=== PATIENT | female | born 1945 | race Caucasian/White ===

== ENCOUNTER 2021-12-11 13:45 | Outpatient (RCR) | payer MEDICARE, BC, SELFPAY | END 2022-03-12 10:38 | disposition home or self-care (01) | PROVIDERS: Visit Provider Orthopaedic Surgery | DX: M17.0 Bilateral primary osteoarthritis of knee (principal); Z51.89 Encounter for other specified aftercare | CPT/HCPCS: 97110; 97162 ==

== ENCOUNTER 2024-02-01 07:22 | Emergency (ER) | payer MEDICARE, BC, SELFPAY ==
[2024-02-01] VITALS (11 sets, daily range): BP systolic 146–163; BP diastolic 77–96; PULSE 57–73; RESP 16–20; TEMP 36.3; O2SAT 87–98; BMI 41.2
--- NOTE | 2024-02-01 07:43 | ED_ITS ---
HPI - General Adult General Time Seen by Provider: 07:43 Date Seen: 02/01/24 Chief complaint: Nausea/Vomiting Stated complaint: Vomiting since Friday/Friday Time Seen by Provider: 02/01/24 07:23 Source: patient, RN notes reviewed and old records reviewed Mode of arrival: wheelchair Limitations: no limitations History of Present Illness HPI narrative: This 79-year-old female comes into the ER of her own accord with complaint of dry heaves and nausea all night long. Her symptoms actually started on Friday night, today is Friday morning. She ate some [employer] fish Friday night about 5:00 p.m.. Her symptoms started abruptly around 11:00 p.m. Friday night. She started with nausea and vomiting. She did have some nonbloody diarrhea. That has resolved as she did take an Imodium AD on . She has continued to have some generalized abdominal discomfort but no fevers or chills. She was up dry heaving all night long, does feel nauseated now. She states she is not been able to keep anything in overnight. She does report a history of bladder cancer, was at the urologist last week and was found to have an incidental asymptomatic kidney stone, visit done for hematuria which was asymptomatic. She states her bladder cancer was removed and there is no evidence of recurrence. She has polymyalgia rheumatica and arthritis with that, take some monthly injection. She notes some liver inflammation, further details not known at this time. Did review her Care everywhere, she sees [facility]. She has seen Dr. Ventura for pulmonology. Recent PFTs suggested restrictive pattern but patient is noted to have a history of mild intermittent or persistent asthma. Patient is also noted to have obstructive sleep apnea and obesity restriction. With problem list reviewed as provided by patient below. Related Data Home Medications ?Medication ?Instructions ?Recorded ?Confirmed betaxolol 0.5 % eye drops 1 drp ophthalmic (eye-right) BID 02/01/24 02/01/24 carvedilol 12.5 mg tablet 12.5 mg PO BID 02/01/24 02/01/24 cyclobenzaprine 5 mg tablet 5 mg PO 3XD PRN muscle spasm 02/01/24 02/01/24 diazepam 2 mg tablet 2 mg PO 02/01/24 diclofenac sodium 1 % topical gel 2 g topical 3XD PRN 02/01/24 02/01/24 dorzolamide 2 % eye drops 1 drp ophthalmic (eye-right) BID 02/01/24 02/01/24 fluticasone furoate 100 1 inh inhalation DAILY 02/01/24 02/01/24 mcg/actuation blister powder for inhalation (Arnuity Ellipta) furosemide 20 mg tablet 20 mg PO DAILY 02/01/24 02/01/24 hydrocodone 5 mg-acetaminophen 325 1 tab Q6H PRN pain 02/01/24 mg tablet imatinib 400 mg tablet (Gleevec) 400 mg PO DAILY 02/01/24 02/01/24 irbesartan 75 mg tablet 75 mg PO DAILY 02/01/24 02/01/24 mometasone 220 mcg/actuation(60 inhalation QPM 02/01/24 doses) breath activated powder inhaler (Asmanex Twisthaler) omeprazole 40 mg capsule,delayed 40 mg PO DAILY PRN heartburn 02/01/24 02/01/24 release potassium chloride 10 mEq 10 meq PO DAILY 02/01/24 02/01/24 tablet,extended release(part/cryst) (Klor-Con M) prednisone 1 mg tablet 2 mg PO DAILY 02/01/24 02/01/24 sertraline 25 mg tablet 25 mg PO DAILY 02/01/24 02/01/24 sertraline 50 mg tablet 75 mg PO DAILY 02/01/24 02/01/24 Allergies Allergy/AdvReac Type Severity Reaction Status Date / Time cortisone AdvReac Unknown Verified 02/01/24 07:33 Sulfa Antibiotics Allergy Unknown Uncoded 09/21/21 09:29 Review of Systems Status of ROS: Reports: 6 or more systems reviewed and unremarkable except as noted in History and below [facility] Medical History Muscular dystrophy ?G71.00 - Muscular dystrophy, unspecified (ICD-10) Bladder cancer ?C67.9 - Malignant neoplasm of bladder, unspecified (ICD-10) CML (chronic myelocytic leukemia) ?C92.10 - Chronic myeloid leukemia, BCR/ABL-positive, not having achieved remission (ICD-10) Hypertension ?I10 - Essential (primary) hypertension (ICD-10) Social History Smoking Status: Never smoker How often do you have a drink containing alcohol: never AUDIT-C Alcohol total score: 0 Non-prescribed substance use: denies use service: No Exam Const: Vital Signs, click to edit/add: Vital Signs - 24 hr 02/01/24 07:27 02/01/24 09:05 02/01/24 09:07 Temperature 97.3 F L Pulse Rate Pulse Rate [Pulse Oximeter] 71 73 Respiratory Rate 16 Blood Pressure Blood Pressure [Ri ght Upper Arm] 163/96 H Pulse Oximetry 92 87 L 87 L Oxygen Delivery Me thod Room Air Room Air Oxygen Flow Rate 02/01/24 09:08 02/01/24 09:17 02/01/24 09:30 Temperature Pulse Rate 70 72 Pulse Rate [Pulse Oximeter] Respiratory Rate Blood Pressure 147/96 H Blood Pressure [Ri ght Upper Arm] Pulse Oximetry 87 L 88 98 Oxygen Delivery Me thod Nasal Cannula Nasal Cannula Oxygen Flow Rate 1 1 02/01/24 09:49 02/01/24 10:00 02/01/24 10:02 Temperature Pulse Rate 67 Pulse Rate [Pulse Oximeter] Respiratory Rate 20 18 20 Blood Pressure 146/77 H Blood Pressure [Ri ght Upper Arm] Pulse Oximetry 96 97 Oxygen Delivery Me thod Nasal Cannula Nasal Cannula Oxygen Flow Rate 1 1 02/01/24 10:30 02/01/24 11:02 Temperature Pulse Rate 57 L 70 Pulse Rate [Pulse Oximeter] Respiratory Rate Blood Pressure 149/86 H Blood Pressure [Ri ght Upper Arm] Pulse Oximetry 97 98 Oxygen Delivery Me thod Nasal Cannula Nasal Cannula Oxygen Flow Rate 1 1 This 79-year-old female is alert, interactive, does seem to be hard of hearing at times. Pupils are equal round, conjugate gaze. There is a little vascular injection in the right sclera, both looked to have some possible mild icterus. Symmetrical facial function, speech is normal. Lips are dry, some mild cracking, oropharynx with dry mucosa but no exudates or other abnormality noted. She is able to speak in complete sentences. Lungs are clear, good air entry, no wheezing or crackles, no tachypnea. CV regular rate and rhythm, no murmur. Abdomen is obese but soft, some mild upper generalized abdominal pain without rebound or guarding. Bowel sounds are present. Do not feel any masses or organomegaly necessarily but body habitus can confound this examination. She has no lower extremity edema, note no skin rash. Documenting provider has reviewed patient's vital signs: yes Course Course ED Course: This is a patient with some upper abdominal pain, maybe icterus on her examination with reported history of liver enzyme elevation or liver inflammation. She did report a gastroenteritis or food poisoning type symptoms that had abrupt onset earlier this week. This could be viral or food poisoning that has not abated. Need to consider dehydration with this patient's symptoms. Will give her 500 mL normal saline due to the saline shortage to start with, 4 mg IV Zofran. We will get full complement of labs. Given her symptoms in her underlying complexity, do feel compelled to do CT of her abdomen pelvis, will do this with IV contrast to rule out any concerning intra-abdominal pathology. Reevaluation(s) Time of Reevaluation #1: 09:11 Reevaluation #1: This 79-year-old female is now at 82-83%. She is sitting in the recliner. She came back from her CT scan of her abdomen and was at 80% room air, was not feeling short of breath. She does note that she does get baseline dyspnea on exertion and feels short of breath with activity. We observed for short period wondering if she would rebound, this is a patient known to have some underlying lung disease, oxygenation actually worsened as we watched her coming back from CT. Will get a portable chest x-ray, respiratory therapy is down to see her, will supplement some oxygen for the time being. On further evaluation, her probe was not likely on with the 82-83%. Respiratory therapy did get that adjusted, had patient cough and O2 sats are back up in the 90s. Will still look at a portable chest x-ray on her to ensure no visible changes from any aspiration. Respiratory therapy has worked with her, with coughing she will clear up into the low 90s but with rest she dips back down to 87%. Respiratory therapy is placing a L nasal cannula oxygen. Will proceed with getting a portable chest x- ray. Patient is already had CT imaging of her abdomen pelvis and was not hypoxic before this, otherwise, would have considered adding chest imaging on that. Consultations Consultation #1: Spoke with our hospitalist regarding this patient, do have a page out to our general surgeon. I would like a 2nd opinion about the feasibility of this patient potentially staying here. Do need to talk to surgery about her jaundice with the acute cholecystitis. He agrees, will come down to see this patient. Did cancel the consultation with Dr. Jung. I have subsequently spoken with our surgeon and the plan will be for transfer for ERCP. Will initiate Zosyn for this patient. Time: 09:20 Consultation #2: Spoke with our general surgeon Dr. Hermosillo. Upon review of the case, she believes that this patient should transfer for ERCP. Did subsequently discuss this with the patient, let her know that her gallbladder is inflamed and infected, with the jaundice there would be evidence of potential obstruction that requires ERCP. We cannot do this here. She would prefer [facility], we will check with the [facility] system. I do know [facility] has beds at this time. She would also prefer [facility]. She notes that she has an appointment coming up with ENT for cochlear implants. Time: 09:23 Consultation #3: Have spoken with the hospitalist at [facility] Dr. Cain, she accepts this patient. Time: 09:53 Vital Signs Vital signs: Initial Vital Signs Temperature 97.3 F L 02/01/24 07:27 Temperature Source Temporal Artery Scan 02/01/24 07:27 Pulse Rate 71 02/01/24 07:27 Respiratory Rate 16 02/01/24 07:27 Blood Pressure 163/96 H 02/01/24 07:27 Blood Pressure Mean 118 H 02/01/24 07:27 Blood Pressure Position Sitting 02/01/24 07:27 Pulse Oximetry 92 02/01/24 07:27 Oxygen Delivery Method Room Air 02/01/24 07:27 Vital Signs Temperature 97.3 F L 02/01/24 07:27 Pulse Rate 71 02/01/24 07:27 Respiratory Rate 16 02/01/24 07:27 Blood Pressure 163/96 H 02/01/24 07:27 Pulse Oximetry 92 02/01/24 07:27 Oxygen Delivery Method Room Air 02/01/24 07:27 Temperature 97.3 F L 02/01/24 07:27 Pulse Rate 70 02/01/24 11:02 Respiratory Rate 20 02/01/24 10:02 Blood Pressure 149/86 H 02/01/24 11:02 Pulse Oximetry 98 02/01/24 11:02 Oxygen Delivery Method Nasal Cannula 02/01/24 11:02 Oxygen Flow Rate 1 02/01/24 11:02 Medications Administered Medications: Discontinued Medications Generic Name Dose Route Start Last Admin Trade Name Иванq PRN Reason Stop Dose Admin Sodium Chloride 500 mls @ 500 mls/hr 02/01/24 07:50 02/01/24 09:26 0.9 % Sodium Chloride 500 Ml IV 02/01/24 08:49 Infused .Q1H ONE Infusion Piperacillin Sod/Tazobactam 100 mls @ 200 mls/hr 02/01/24 09:35 02/01/24 10:17 Sod 3.375 gm/ Sodium Chloride IVPB 02/01/24 09:36 Infused ONCE ONE Infusion Ondansetron HCl 4 mg 02/01/24 07:50 02/01/24 08:04 Ondansetron 2 Mg/Ml Inj IVP 02/01/24 07:51 4 mg ONCE ONE Administration Medical Decision Making Lab Data Lab results reviewed: Yes I reviewed the patient's lab results Labs: Lab Results 02/01/24 02/01/24 02/01/24 Range/Units 08:00 08:02 08:08 WBC 7.56 (4.50-11.00) K/uL RBC 3.67 L (4.00-5.20) m/uL Hgb 12.5 (12.0-16.0) gm/dL Hct 36.0 (33.0-51.0) % MCV 98 (80-100) fL MCH 34 (26-34) pg MCHC 35 (32-36) gm/dL RDW Coeff of Karoline 13.2 (11.5-15.5) % Plt Count 94 L (140-440) K/uL Neut % (Auto) 81.6 H (42.0-72.0) % Lymph % (Auto) 9.0 L (20-44) % [place] % (Auto) 7.0 (0.0-11.0) % Eos % (Auto) 2.0 (0.0-7.0) % Baso % (Auto) 0.3 (0.0-3.0) % Neut # (Auto) 6.20 (1.7-7.0) K/uL Lymph # (Auto) 0.70 L (0.90-2.90) K/uL [place] # (Auto) 0.50 (0.00-0.90) K/UL Eos # (Auto) 0.15 (0.00-0.50) K/uL Baso # (Auto) 0.02 (0.00-0.30) K/uL Abs Immat Gran (auto) 0.01 (0.00-0.30) K/uL Imm/Tot Granulo (auto) 0.1 % INR 0.98 (0.91-1.10) APTT 28 (23-33) Seconds Sodium 137 (135-149) mmol/L Potassium 3.8 (3.6-5.1) mmol/L Chloride 101 (96-114) mmol/L Carbon Dioxide 28 (20-32) mmol/L Anion Gap 8 (7-15) mEq/L BUN 14 (7-30) mg/dL Creatinine 0.9 (0.5-1.5) mg/dL Estimated Creat Clear 38.75 Estimated GFR 65 ml/min Glucose 113 (60-115) mg/dL Lactate 1.3 (0.5-1.9) mmol/L Calcium 9.3 (8.4-10.6) mg/dL Total Bilirubin 4.6 H (0.1-1.5) mg/dL Direct Bilirubin 3.6 H (0.0-0.5) mg/dL AST 150 H (12-35) U/L ALT 183 H (4-35) U/L Alkaline Phosphatase 132 (40-150) U/L Ammonia < 9.0 L (13.1-30.0) umol/L Troponin I 0.05 H (0.01-0.04) ng/mL C-Reactive Protein 1.0 (0.5-1.0) mg/dL Total Protein 6.0 (6.0-8.3) g/dL Albumin 4.0 (3.3-5.0) g/dL Lipase 89 (23-300) U/L Lab Acknowledgement Test Added POC Creatinine 1.0 (0.6-1.3) mg/dl 02/01/24 Range/Units 09:33 WBC (4.50-11.00) K/uL RBC (4.00-5.20) m/uL Hgb (12.0-16.0) gm/dL Hct (33.0-51.0) % MCV (80-100) fL MCH (26-34) pg MCHC (32-36) gm/dL RDW Coeff of Karoline (11.5-15.5) % Plt Count (140-440) K/uL Neut % (Auto) (42.0-72.0) % Lymph % (Auto) (20-44) % [place] % (Auto) (0.0-11.0) % Eos % (Auto) (0.0-7.0) % Baso % (Auto) (0.0-3.0) % Neut # (Auto) (1.7-7.0) K/uL Lymph # (Auto) (0.90-2.90) K/uL [place] # (Auto) (0.00-0.90) K/UL Eos # (Auto) (0.00-0.50) K/uL Baso # (Auto) (0.00-0.30) K/uL Abs Immat Gran (auto) (0.00-0.30) K/uL Imm/Tot Granulo (auto) % INR (0.91-1.10) APTT (23-33) Seconds Sodium (135-149) mmol/L Potassium (3.6-5.1) mmol/L Chloride (96-114) mmol/L Carbon Dioxide (20-32) mmol/L Anion Gap (7-15) mEq/L BUN (7-30) mg/dL Creatinine (0.5-1.5) mg/dL Estimated Creat Clear Estimated GFR ml/min Glucose (60-115) mg/dL Lactate (0.5-1.9) mmol/L Calcium (8.4-10.6) mg/dL Total Bilirubin (0.1-1.5) mg/dL Direct Bilirubin (0.0-0.5) mg/dL AST (12-35) U/L ALT (4-35) U/L Alkaline Phosphatase (40-150) U/L Ammonia (13.1-30.0) umol/L Troponin I (0.01-0.04) ng/mL C-Reactive Protein (0.5-1.0) mg/dL Total Protein (6.0-8.3) g/dL Albumin (3.3-5.0) g/dL Lipase (23-300) U/L Lab Acknowledgement Test Added POC Creatinine (0.6-1.3) mg/dl Imaging Data CT scan - abdomen: Attestation: I have reviewed the pertinent imaging results. Radiologist's impression: Patient: JOANNE WIGGINS Facility:?[facility] Patient ID:?[id number] Site Patient ID:?[id number]. Site :?[id number] Study:?CT-Abdomen/Pelvis w/iv-02/01/2024 9:08:43 AM Ordering Physician:?Shayla See Final Report: INDICATION: Right upper quadrant pain with nausea and vomiting. TECHNIQUE: CT abdomen and pelvis acquired with 100 cc Omnipaque 350 IV contrast. COMPARISON: None. FINDINGS: Lower chest: Unremarkable. Liver: Unremarkable. Normal in size and attenuation. No suspicious masses. Gallbladder and bile ducts: Subtle stones or sludge suspected in the gallbladder and distal common bile duct. Gallbladder is dilated with signs of wall thickening inflammatory changes. No significant biliary dilatation. Pancreas: Unremarkable. No mass or inflammation. Spleen: Unremarkable. Normal in size. No masses. Adrenal glands: Unremarkable. No nodules. Kidneys: A 2 mm stone in the distal left ureter is on series 2, image 130. This stone is not causing obstructive changes. No hydronephrosis. Kidneys otherwise unremarkable. GI tract: Unremarkable. Normal in caliber. No sign of mass or inflammation. Normal appendix. Vasculature: Abdominal aorta is normal in caliber. Mesenteric arteries are patent. Lymph nodes: No lymphadenopathy. Peritoneum/Abdominal Wall: Unremarkable. No sign of mass or infiltration. No free air or significant free fluid. Pelvis: Multiple prominent calcified uterine fibroids. Remainder of the pelvic structures are unremarkable. Bones: Severe multilevel degenerative spondylosis in the lumbar spine. IMPRESSION: 1. Subtle cholelithiasis with sludge also suggested in the gallbladder and common bile duct. Gallbladder is mildly dilated with signs of wall thickening. Acute cholecystitis is suspected. 2. Small nonobstructive 2 mm stone in the distal left ureter. 3. Multiple large calcified uterine fibroids. Please note that all CT scans at this facility use dose modulation, iterative reconstruction, and/or weight-based dosing when appropriate to reduce radiation dose to as low as reasonably achievable. Dictated by Johnny Thorne MD @ 02/01/2024 9:18:19 AM (Electronic Signature) ECG Data Attestation: I personally reviewed and interpreted this ECG as follows: (Normal sinus rhythm, 73 beats per minute, left bundle branch block.) Prior ECG tracings: not available for review Discharge Plan Discharge Clinical Impression: Acute cholecystitis, Jaundice, Hypoxia Patient Disposition: [facility] Discharge Location: [facility]
--- NOTE | 2024-02-01 07:50 | CRLHL7_ITS ---
For Patients: As a result of the Century Cures Act, medical imaging exams and procedure reports are released immediately into your electronic medical record. You may view this report before your referring provider. If you have questions, please contact your health care provider. INDICATION: Right upper quadrant pain with nausea and vomiting. TECHNIQUE: CT abdomen and pelvis acquired with 100 cc Omnipaque 350 IV contrast. COMPARISON: None. FINDINGS: Lower chest: Unremarkable. Liver: Unremarkable. Normal in size and attenuation. No suspicious masses. Gallbladder and bile ducts: Subtle stones or sludge suspected in the gallbladder and distal common bile duct. Gallbladder is dilated with signs of wall thickening inflammatory changes. No significant biliary dilatation. Pancreas: Unremarkable. No mass or inflammation. Spleen: Unremarkable. Normal in size. No masses. Adrenal glands: Unremarkable. No nodules. Kidneys: A 2 mm stone in the distal left ureter is on series 2, image 130. This stone is not causing obstructive changes. No hydronephrosis. Kidneys otherwise unremarkable. GI tract: Unremarkable. Normal in caliber. No sign of mass or inflammation. Normal appendix. Vasculature: Abdominal aorta is normal in caliber. Mesenteric arteries are patent. Lymph nodes: No lymphadenopathy. Peritoneum/Abdominal Wall: Unremarkable. No sign of mass or infiltration. No free air or significant free fluid. Pelvis: Multiple prominent calcified uterine fibroids. Remainder of the pelvic structures are unremarkable. Bones: Severe multilevel degenerative spondylosis in the lumbar spine. IMPRESSION: 1. Subtle cholelithiasis with sludge also suggested in the gallbladder and common bile duct. Gallbladder is mildly dilated with signs of wall thickening. Acute cholecystitis is suspected. 2. Small nonobstructive 2 mm stone in the distal left ureter. 3. Multiple large calcified uterine fibroids. Please note that all CT scans at this facility use dose modulation, iterative reconstruction, and/or weight-based dosing when appropriate to reduce radiation dose to as low as reasonably achievable. Dictated by Johnny Thorne MD @ 02/01/2024 9:18:19 AM (Electronically Signed)
[2024-02-01] MEDS: 0.9 % SODIUM CHLORIDE 500 ML 500 ML IV (08:04)
[2024-02-01] MEDS: ONDANSETRON 2 MG/ML inj 4 MG IVP (08:04)
[2024-02-01 08:06] LABS: Lactate* 1.3 mmol/L (0.5-1.9)
[2024-02-01 08:08] LABS: Basophils Absolute Auto 0.02 K/uL (0.00-0.30); Basophils Percent Auto 0.3 % (0.0-3.0); Eosinophils Absolute Auto 0.15 K/uL (0.00-0.50); Hemoglobin* 12.5 gm/dL (12.0-16.0); Immature Granulocytes Abs Auto 0.01 K/uL (0.00-0.30); Immature Granulocytes Pct Auto 0.1 %; Mean Corpuscular HGB Conc 35 gm/dL (32-36); Mean Corpuscular Hemoglobin 34 pg (26-34); Mean Corpuscular Volume 98 fL (80-100); Neutrophils Percent Auto 81.6 % (42.0-72.0); Platelet Count* 94 K/uL (140-440); RDW Coefficient of Variation % 13.2 % (11.5-15.5); Red Blood Count 3.67 m/uL (4.00-5.20); Slide Review Reflex No; White Blood Count* 7.56 K/uL (4.50-11.00)
--- OUTSIDE RECORDS SUMMARY | 2024-02-01 08:22 | XMS_ITS | Clinical Summary ---
Author Organization [facility] Address [address] [place] [address] Care Team Providers Care Departure Clerk Name Role Phone Hector Goode MD Unavailable John Cancino MD Unavailable [phone] Jasmin Maradiaga PA-C Primary Care Provid er Jasmin Maradiaga PA-C Unavailable + [phone] Carl Faarh MD Unavailable [phone] Hector Goode MD Unavailable Allergies Active Allergy Reactions Criticality Noted Date Comments Cortisone 05/29/2006 Cortisone shots Sulfa Antibiotics 06/16/1998 Medications GLEEVEC 400 MG OR TABS [address] Bustillo 30 0 12/20/19 07 Active CENTRUM SILVER PO TABS 1 TABLET DAILY Activ e ASPIRIN 81 MG PO TBEC 1 TABLET DAILY Activ e FISH OIL 1000 MG PO CAPS 2 CAPSULES DAILY WITH A MEAL Active VITAMIN D, CHOLECALCIFEROL, PO Take 1,000 Units by mouth daily Active brimonidine (ALPHAGAN) 0.2 % ophthalmic solution INSTILL 1 DROP INTO RIGHT EYE TWICE A DAY 11/17/19 21 Active ASMANEX, 60 METERED DOSES, 220 MCG/INH inhaler 10/09/19 21 Active betaxolol (BETOPTIC) 0.5 % ophthalmic solution INSTILL 1 DROP INTO RIGHT EYE TWICE A DAY 01/03/20 23 Active dorzolamide-timol ol (COSOPT) 2-0.5 % ophthalmic solution INSTILL 1 DROP INTO RIGHT EYE TWICE A DAY 12/27/19 23 Active tafluprost (ZIOPTAN) 0.0015 % SOLN ophthalmic solution Place 1 drop into the right eye at bedtime 04/30/19 24 Active carvedilol (COREG) 12.5 MG tabletIndications :Ischemic cardiomyopathy Take 1 tablet (12.5 mg) by mouth 2 times daily (with meals) 180 tablet 3 07/31/19 24 Active furosemide (LASIX) 20 MG tabletIndications :Primary cardiomyopathy (H),Dilated cardiomyopathy (H) Take 1 tablet (20 mg) by mouth daily Plus 1 additional pill prn edema/shortnes s of breath, need appointment for further refill 110 tablet 3 07/31/19 24 Active irbesartan (AVAPRO) 75 MG tabletIndications :Primary cardiomyopathy (H) Take 1 tablet (75 mg) by mouth daily 90 tablet 3 07/31/19 24 Active potassium chloride prabhu ER (KLOR-CON M10) 10 MEQ CR tabletIndications :Dilated cardiomyopathy (H) Take 1 tablet (10 mEq) by mouth daily 90 tablet 3 07/31/19 24 Active rosuvastatin (CRESTOR) 5 MG tabletIndications :Hyperlipidemia LDL goal <100 Take 1 tablet (5 mg) by mouth daily 90 tablet 3 07/31/19 24 Active spironolactone (ALDACTONE) 25 MG tabletIndications :Ischemic cardiomyopathy Take 1 tablet (25 mg) by mouth every morning 90 tablet 3 07/31/19 24 Active sertraline (ZOLOFT) 50 MG tabletIndications :Facioscapulohume ral muscular dystrophy (H) Take 1.5 tablets (75 mg) by mouth daily 135 tablet 1 09/09/19 24 Active tocilizumab (ACTEMRA) 80 MG/4ML Inject into the vein every 28 days Active omeprazole (PRILOSEC) [address] capsuleIndication s:Gastroesophagea l reflux disease without esophagitis Take 1 capsule (40 mg) by mouth daily as needed (heartburn) 90 capsule 1 10/16/19 24 Active predniSONE (DELTASONE) 1 MG tablet Take 4 tablets (4 mg) by mouth daily. 01/07/20 24 Active predniSONE (DELTASONE) 5 MG tablet Take 15 tablets by mouth daily 04/09/19 24 024 Discontinue d(Therapy completed (No AVS)) Active Problems Problem Noted Date Diagnosed Date PMR (polymyalgia rheumatica) 04/30/2023 Class 2 severe obesity due t o excess calories with serious comorbidity in adult 04/30/2023 Asthma in adult, mild persistent, uncomplicated 02/11/2023 CKD (chronic kidney disease) stage 3, GFR 30-59 ml/min 02/17/2019 Incontinence of feces with fecal urgency 019 Pain of hand 05/08/2018 BMI 37.0-37.9, adult 03/28/2014 Facioscapulohumeral muscular dystrophy 3 Sensorineural hearing loss (SNHL) 04/11/2011 History of mastoidectomy 09/18/2006 Personal history of malignant neoplasm of bladde r 05/07/2006 Overview (12/08/2014): Problem list name updated by automated process. 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 Provider to review Transient cerebral ischemia 04/25/2002 Overview (12/08/2014): Problem list name updated by automated process. Provider to review Chronic myeloid leukemia in remission 04/25/2002 Rosacea 08/14/2000 Lumbago 08/14/2000 Sarcoidosis Hypersomnia with sleep apnea Overview (12/08/2014): Problem list name updated by automated process. Provider to review Other hyperlipidemia LBBB (left bundle branch block) Congestive heart failure Overview (12/09/2014): Problem list name updated by automated process. Provider to review Myalgia and myositis Overview (12/09/2014): Problem list name updated by automated process. Provider to review Resolved Problems Problem Noted Date Diagnosed Date Resolved Date COPD (chronic obstructive pulmonary disease) 7 02/11/2023 Advanced directives, counseling/discussion 03/23/2014 05/24/2020 Overview (03/23/2014): Advance Care Planning: ACP Review and Resources Provided: Reviewed chart for advance care plan. Griselda Lai has no plan or code status on file. Discussed available resources and provided with information. Confirmed code status reflects current choices pending further ACP discussions. Confirmed/documented designated decision maker(s). See permanent comments section of demographics in clinical tab. 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 Griselda Lai has no plan or code status on file. Discussed available resources and provided with information. Confirmed code status reflects current choices pending further ACP discussions. Confirmed/documented designated decision maker(s). See permanent comments section of demographics in clinical tab. Added by Shanelle Moon on 08/09/2013 Localized osteoarthrosis, lower leg 06/27/2005 05/24/2020 Overview (12/08/2014): Problem list name updated by automated process. 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 Provider to review Depressive disorder, not elsewhere classified 10/05/19 03 02/10/2012 Hyperlipidemia 05/14/1999 05/24/2020 Overview (12/08/2014): Problem list name updated by automated process. Provider to review Cardiomyopathy 12/23/2004 Overview (11/11/2012): Problem list name updated by automated process. Provider to review and confirm Im[employer] Update utility Need for prophylactic hormon e replacement therapy (postmenopausal) 10/01/2002 Obesity 03/28/2014 Overview (12/08/2014): Problem list name updated by automated process. Provider to review Nonspecific abnormal results of cardiovascular function study 02/12/2023 Overview (12/09/2014): Problem list name updated by automated process. Provider to review Encounters Date Type Department Care Team Description 01/07/2024 2:45 PM CDT Office Visit [facility] [address] [place] [address] [address] [place] [address] Gavi Cloud MD Urinary symptom or sign (Primary Dx); Hematuria, unspecified type; Personal history of malignant neoplasm of bladder; Other fatigue; Genital atrophy of female; Vaginal bleeding 01/07/2024 Travel from Last 3 Months Immunizations Name Administration Dates Next Due COVID-19 MONOVALENT 12+ (Pfizer) 022,01/12/2021,05/20/2020,2020 Influenza (H1N1) 02/09/2009 Influenza (High Dose) Trival ent,PF (Fluzone) 01/16/2019,12/25/2015,12/29/2013 Influenza (IIV3) PF 12/19/2011, 1,12/06/2009,2008,01/06/2008,12/19/2006,01/02/2006,1 ,12/16/2002,12/29/2000, 000,12/20/1998,12/27/1997 Influenza Vaccine 65+ (Fluzone HD) 01/21,12/28/2021,12/15/2020,2019 Influenza Vaccine >6 months,quad, PF ,11/29/2016,12/30/2014,2012 Influenza Vaccine, 6+MO IM (QUADRIVALENT W/PRESERVATIVES) 12/21/2015 Pneumo Conj 13-V (2010&after) 02/19/2012 Pneumococcal 23 valent 01/23/2018,12/19/2006 TD,PF 7+ (Tenivac) 07/03/2009,04/10/2000, 993 Zoster vaccine, live 02/26/2007 Family History Medical History Relation Comments Arthritis Father alive Heart Disease Father bypass-alive Lipids Father hyperlipidemia-a live Deep Vein Thrombosis Maternal Grandmother Arthritis Mother Cerebrovascular Disease Mother Brain an uerysm- No Known Problems Other Prostate Cancer No family hx of Relation Status Comments Father Maternal Grandmother Mother Other Social History Tobacco Use Types Packs/Day Years Used Date Smoking Tobacco: Never Passive Smoke Exposure: Never Smokeless Tobacco: Never Tobacco Cessation:Counseling Given: Not Answered Alcohol Use Standard Drinks/Week Comments No 0 (1 standard drink = 0.6 oz pur e alcohol) Overall Financial Resource Strain (CARDIA) Answe r Date Recorded How hard is it for you to pa y for the very basics like food, housing, medical care, and heating? Not hard at all 04/29/2019 PHQ-2 Answer Date Recorded PHQ-2 Score 3 04/30/2023 Hunger Vital Sign Answer Date Recorded Within the past 12 months, y ou worried that your food would run out before you got the money to buy more. Never true 04/29/19 20 Within the past 12 months, t he food you bought just didn't last and you didn't have money to get more. Never true 04/29/2019 PRAPARE - Transportation Answer Date Re corded In the past 12 months, has l ack of transportation kept you from medical appointments or from getting medications? No 04/11 In the past 12 months, has l ack of transportation kept you from meetings, work, or from getting things needed for daily living? 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 Gender Identity Not on file Sexual Orientation Not on file Last Filed Vital Signs Vital Sign Reading Time Taken Comments Blood Pressure 126/74 01/07/2024 2:54 PM CDT Pulse 69 01/07/2024 2:54 PM CDT Temperature 36.6 C (97.8 F) 01/07/2024 2:54 PM CDT Respiratory Rate 20 09/09/2023 9:13 AM CDT Oxygen Saturation 96% 01/07/2024 2:54 PM CDT Inhaled Oxygen Concentration - - Weight 107.5 kg (237 lb) 09/09/2023 9:13 AM CDT Height 162.6 cm (5' 4) 09/09/2023 9:13 AM CDT Body Mass Index 40.68 09/09/2023 9:13 AM CDT Plan of Treatment Upcoming Encounters Date Type Department Care Team (Late st Contact Info) Description 06/14/2024 1:00 PM CDT Office Visit [facility] [address] [place] [address] Hector Goode MD [address] [place] [address] [id number] [place] [address] Health Maintenance Due Date Last Done Comments ANNUAL REVIEW OF HM ORDERS 1945 HF ACTION PLAN 1945 MICROALBUMIN 1945 ZOSTER IMMUNIZATION (1 of 2) 04/23/2007 02/26/2007 DTAP/TDAP/TD IMMUNIZATION (1 - Tdap) 07/04/2009 07/03/2009, 04/10/2000, 02/26/1993 FALL RISK ASSESSMENT 10/08/2023 10/07/2022, 12/15/2020, 02/17/2019, Additional history exists PHQ-9 10/29/2023 04/30/2023, 03/10, 03/07/2023 COVID-19 Vaccine ( season) 2023 01/21/2023, 02/12/2022, 09/25/2021, Additional history exists INFLUENZA VACCINE (#1) 2023 , 12/28/2021, 12/15/2020, Additional history exists ASTHMA CONTROL TEST 12/13/2023 06/13/2023 DEPRESSION 12 MO INDEX REPEAT PHQ-9 01/07/2024 04/30/2023, 03/28/2023, 03/07/2023 RSV VACCINE (1 - 1-dose 75+ series) 02/12/2024 Postponed from 01/04/2019 (Other) ALT 04/09/2024 04/09/2023, 12/07/2022, 01/01/2021, Additional history exists CBC 04/30/2024 04/30/2023, 12/09, 08/06/2019, Additional history exists MEDICARE ANNUAL WELLNESS VISIT 04/30/2024 04/30/2023, 12/15/2020, 06/10/2016, Additional history exists MAMMO SCREENING 05/25/2024 05/26/2023, 05/08, 04/04/2021, Additional history exists ASTHMA ACTION PLAN 06/12/2024 06/13/2023, 0 06/13/2023, 06/13/2023 BMP 07/07/2024 01/07/2024, 07/0 04/2023, 02/11/2023, Additional history exists LIPID 09/08/2024 09/09/2023, 08/0 10/2022, 01/01/2019, Additional history exists HEMOGLOBIN 01/06/2025 01/07/2024, 04/11, 03/07/2023, Additional history exists GLUCOSE 01/06/2027 01/07/2024, 07/0 04/2023, 04/09/2023, Additional history exists ADVANCE CARE PLANNING 02/12/2028 02/11/2023 , 12/15/2020, 05/24/2020, Additional history exists DEXA 12/22/2035 12/21/2020, 06/08, 09/26/2001 COLONOSCOPY Discontinued 08/06/2016, 07/10, 01/14/2007 COLORECTAL CANCER SCREENING Discontinued Pneumococcal Vaccine: 65+ Years Completed 01/23/2018, 02/19/2012, 12/19/2006 TSH W/FREE T4 REFLEX Completed 05/24/2020, 11/29/2016, 02/10/2013, Additional history exists DEPRESSION ACTION PLAN Completed 06/13/2023, 2023 URINALYSIS Completed 01/07/2024, 07/08, 03/23/2014, Additional history exists CT COLONOGRAPHY Discontinued FIT Discontinued FLEX SIG Discontinued HPV IMMUNIZATION Aged Out No longer e ligible based on patient's age to complete this topic MENINGITIS IMMUNIZATION Aged Out No l onger eligible based on patient's age to complete this topic RSV MONOCLONAL ANTIBODY Aged Out No l onger eligible based on patient's age to complete this topic sDNA (Cologuard) Discontinued Procedures Procedure Name Priority Date/Time Associated Diagnosis Comments ME PELVIC EXAMINATION Routine 01/07/2024 5:39 PM CDT Hematuria, unspecified type Genital atrophy of female Vaginal bleeding URINE CULTURE AEROBIC BACTERIAL ([facility]) Routine 01/07/2024 3:21 PM CDT Urinary symptom or sign Hematuria, unspecified type ME COLLECTION VENOUS BLOOD VENIPUNCTURE Routine 01/07/2024 3:08 PM CDT Other fatigue COMPREHENSIVE METABOLIC PANEL ([facility]) Routine 01/07/2024 Other fatigue HEMOGRAM PLATELET DIFF ([facility]) Routine 01/07/2024 Other fatigue URINALYSIS, ROUTINE ([facility]) Routine 01/07/2024 Urinary symptom or sign LIPID PANEL ([facility]) Routine 09/09/2023 Mixed hyperlipidemia MA SCREENING BILATERAL W/ KEVIN Routine 05/26/2023 ALT (EXTERNAL RESULT) Routine 04/09/2023 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 CBC WITH PLATELETS & DIFFERENTIAL STAT 01/01/2021 9:18 PM CDT DX BONE DENSITY Routine 12/21/2020 Screening for osteoporosis TSH WITH FREE T4 REFLEX Routine 05/24/2020 5:28 PM CDT Tired COLONOSCOPY Routine 08/06/2016 7:10 AM CDT from Last 3 Months or Most Recently Relevant to Health Maintenance Results * URINE CULTURE AEROBIC BACTERIAL ([facility]) (01/07/2024 3:21 PM CDT) Urine Voided Culture SEE NOTE [facility] Comment: CULTURE, URINE, ROUTINE Micro Number: [id number] Test Status: Final Specimen Source: Urine Specimen Quality: Adequate Result: No Growth Urine 01/07/2024 3:21 PM CDT 01/08/2024 6:22 AM CDT Narrative Resulting Agency Comment Performing Organization Information: [facility] [address] [place] [address] Serafin Tse us Gavi Cloud MD LAB - NON-BEAKER NON-BLOOD F inal Result Performing Organization Address City/[facility]/ZIP Co de Phone Number [facility] [address] [phone] * (ABNORMAL) URINALYSIS, ROUTINE ([facility]) (01/07/2024) Color Urine Yellow [facility] Appearance Urine Slightly Cloudy(A) [facility] Glucose Urine Neg mg/dL [facility] Bilirubin Urine Neg [facility] Ketones Urine Neg mg/dL [facility] Specific [place] Urine 1.020 [facility] Blood Urine Large(A) [facility] pH Urine 5.5 pH [facility] Protein Urine neg neg - neg mg/dL [facility] Urobilinogen Urine 0.2 EU/dL [facility] Nitrite Urine Neg [facility] Leukocytes neg [facility] Wbc, Urine Micro neg neg - 2 [facility] RBC Micro Urine 25-30(A) neg - 2 [facility] EP/HPF neg [facility] Bacteria Urine neg neg - neg [facility] Casts/LPF neg [facility] Miscellaneous neg [facility] Urine 01/07/2024 us Gavi Cloud MD LAB - NON-BEAKER NON-BLOOD F inal Result [facility] [address] [place] [address] [place] [phone] * (ABNORMAL) HEMOGRAM PLATELET DIFF ([facility]) (01/07/2024) WBC 5.5 4.0 - 11 10*9/L [facility] RBC Count 3.58(A) 3.8 - 5.2 10*12/L [facility] Hemoglobin 12.8 11.7 - 15.7 g/dL [facility] Hematocrit 37.9 35.0 - 47.0 % [facility] MCV 105.9(A) 78 - 100 fL [facility] MCH 35.8(A) 26 - 33 pg [facility] MCHC 33.8 31 - 36 g/dL [facility] Platelet Count 144(A) 150 - 375 10^9/L [facility] % Granulocytes 61.2 % [facility] % Lymphocytes 29.6 % [facility] % Monocytes 9.2 % [facility] Blood 01/07/2024 us Gavi Cloud MD LAB - NON-[facility] BLOOD LABS Final Result [facility] [address] [place] [address] [address] [place] [phone] * (ABNORMAL) Comprehensive Metobolic Panel ([facility]) (01/07/2024) Pathologist [facility] Carbon Dioxide 25.3 20 - 32 mmol/L [facility] Creatinine 1.18 0.60 - 1.30 mg/dL [facility] Glucose 110(A) 60 - 99 mg/dL [facility] Sodium 140.7 135 - 146 mmol/L [facility] Potassium 4.17 3.5 - 5.3 mmol/L [facility] Chloride 105.9 98 - 110 mmol/L [facility] Protein Total 6.3 6.1 - 8.1 g/dL [facility] Albumin 4.6 3.6 - 5.1 g/dL [facility] Alkaline Phosphatase 38 33 - 130 U/L [facility] ALT 30 0 - 32 U/L [facility] AST 37(A) 0 - 35 U/L [facility] Bilirubin Total 1.0 0.2 - 1.2 mg/dL [facility] Urea Nitrogen 22 7 - 25 mg/dL [facility] Calcium 10.1 8.6 - 10.3 mg/dL [facility] BUN/Creatinine Ratio 19 6 - 32 [facility] Blood 01/07/2024 us Gavi Cloud MD LAB - NON-BEAKER BLOOD LABS Final Result Performing Organization Address [facility]/ZIP Co de Phone Number [facility] [address] [place] [address] [address] [place] [address] * Lipid Panel ([facility]) (09/09/2023) Cholesterol 172 0 - 199 mg/dL [facility] Triglycerides 77 0 - 149 mg/dL [facility] HDL Cholesterol 82 40 - 150 mg/dL [facility] LDL-C 75 mg/dL [facility] Cholesterol/HDL Ratio 2 0 - 5 [facility] Blood 09/09/2023 Lewis Macias MD LAB - NON-BEAKER BLOO D LABS Final Result Performing Organization Address City/[facility]/ZIP Co de Phone Number [facility] [address] [place] [address] [address] [place] [address] * MA Screening Bilateral w/ Kevin (05/26/2023) MAMMOGRAM Anatomical Region Laterality Modality Breast Bilateral Other Narrative 05/26/2023 [id number] [facility], [address] [place] [id number] [place] : 1945 Req Phys: Jasmin Maradiaga PA-C Patient name: GRISELDA LAI Clinic: [facility] Dept No: [id number] MAMMOGRAM SCREENING KEVIN BILATERAL Exam Date: 05/26/2023 EXAM: MAMMOGRAM SCREENING KEVIN BILATERAL LOCATION: [facility] [place] DATE: 05/26/2023 INDICATION: Asymptomatic. Screening Mammogram. COMPARISON: 05/24/22, 04/04/21 and 03/05/2018. BREAST DENSITY: There are scattered areas of fibroglandular density. FINDINGS: Tomosynthesis craniocaudal and mediolateral oblique views were obtained. There is no evidence for spiculated masses, architectural distortion, asymmetry or suspicious calcifications. IMPRESSION: No evidence of malignancy. Recommend routine annual screening mammography. When performed, computer-aided detection was used in the interpretation of this study. ACR 1: Negative. A lay language report of this examination will be mailed to the patient. LIFETIME BREAST CANCER RISK ASSESSMENT SCORE: Lifetime risk of developing breast cancer is 2.7% calculated using the Patricia Model and information provided by the patient at the time of screening. The average lifetime risk for developing breast cancer is 12.9% for women born in the [place]. For patients with a lifetime breast cancer risk assessment score of less than 20%, annual screening mammography is recommended. For patients with a lifetime risk of greater than 20%, annual screening mammography supplemented with annual Breast MRI is recommended. Patients in this category are encouraged to discuss this recommendation with their healthcare provider to determine if Breast MRI is appropriate and if so, to obtain a referral and confirm coverage with their health insurance. Recommendations are based on the [employer] Appropriateness Criteria. Patients with a BI-RADS category of 0 should follow the recommendations for further evaluation before considering supplemental screening. Dictated By: ROBERTO ELLISON M.D. 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 [facility]-External Lab Results us Provider Outside LAB - HIM EXTERNAL RESULT Edite d Result - Final [facility] [address] [phone] * Dexa hip/pelvis/spine* (12/21/2020) Anatomical Region Laterality Modality Dexa Other Narrative 12/21/2020 [id number] [facility], [address] [place] [address] [place] : 1945 Req Phys: Josiah Stockton MD Clinic: [facility] Patient name: [facility] Dept No: [id number] BONE DENSITY Exam Date: 12/21/2020 EXAM: BONE MINERAL DENSITY (DEXA) EXAM LOCATION: [facility] DATE/TIME: 12/21/2020 3:46 PM INDICATION: Screening for osteoporosis. COMPARISON: Most recent examination 10/05/2001. TECHNIQUE: The study was performed using DEXA in the AP lumbar spine and AP femur using a Elecar Discovery C. FINDINGS: Using DEXA, the results were reported according to T score. The T score is the standard deviation from the peak bone mass in a normal young patient. A T score of 0 to -1.0 is normal. A T score of -1.0 to -2.5 correlates with osteopenia. A T score of less than -2.5 correlates with osteoporosis. The total T-score from L1 to L4 is 7.6 compared with 3.8 in the previous study. The T-score for the right femoral neck is 0.7. The bone mineral density of the right femoral neck is 0.926 g/cm2. The T-score for the left femoral neck is 1.9 compared with 1.1 in the previous study. The bone mineral density of the left femoral neck is 1.059 g/cm2. IMPRESSION: 1. Normal bone mineral density of the lumbar spine. 2. Normal bone mineral density of the right and left femoral necks. RECOMMENDATIONS: Typical preventive recommendations include total daily calcium intake (diet and supplement) of 1500 mg, daily vitamin D intake of 400-800 IU, and regular weight-bearing exercise, in the appropriate clinical setting. Dictated By: Deb Cabrales Password protected electronic signature by: SHYAM Trans: SI Date Of Trans: 12/22/2020 11:39:00AM Date report approved and signed by interpreting physician: 12/22/2020 11:39:00AM Page 1 of 1 Josiah Stockton MD IMG DEXA ORDERABLES Final Result * TSH with free T4 reflex ([facility]) (05/24/2020 5:28 PM CDT) TSH 2.63 0.40 - 4.50 mIU/L [facility] Blood specimen (specimen) 05/24/2020 5:28 PM CDT 05/26/2020 3:08 AM CDT Narrative Resulting Agency Comment Performing Organization Information: [facility] [address] [place] [address] Serafin Tse M.D. us Gavi Cloud MD LAB - BLOOD ORDERABLES Final Result [facility] [address] [phone] * COLONOSCOPY (08/06/2016 7:10 AM CDT) COLONOSCOPY [facility] Patient Name: Griselda Renee Ming Procedure Date: 08/06/2016 7:10 AM Date of : 1945 Admit Type: Outpatient Age: 71 Gender: Female Attending MD: Beatriz Velasquez MD Total Sedation Time: 21 minutes of continuous bedside 1:1. Instrument Name: 131 Procedure: Colonoscopy Indications: Screening for colorectal malignant neoplasm Providers: Beatriz Velasquez MD (Doctor) Referring MD: Roslyn Sandoval MD (Referring MD) Medicines: Fentanyl 200 micrograms IV, Midazolam 3 mg IV Complications: No immediate complications. Procedure: Pre-Anesthesia Assessment: - Prior to the procedure, a History and Physical was performed, and patient medications and allergies were reviewed. The patient is competent. The risks and benefits of the procedure and the sedation options and risks were discussed with the patient. All questions were answered and informed consent was obtained. Patient identification and proposed procedure were verified by the physician and the nurse in the endoscopy suite. Mental Status Examination: alert and oriented. Airway Examination: normal oropharyngeal airway and neck mobility. Respiratory Examination: clear to auscultation. CV Examination: normal. Prophylactic Antibiotics: The patient does not require prophylactic antibiotics. Prior Anticoagulants: The patient has taken aspirin, last dose was 5 days prior to procedure. ASA Grade Assessment: II - A patient with mild systemic disease. After reviewing the risks and benefits, the patient was deemed in satisfactory condition to undergo the procedure. The anesthesia plan was to use moderate sedation / analgesia (conscious sedation). Immediately prior to administration of medications, the patient was re-assessed for adequacy to receive sedatives. The heart rate, respiratory rate, oxygen saturations, blood pressure, adequacy of pulmonary ventilation, and response to care were monitored throughout the procedure. The physical status of the patient was re-assessed after the procedure. After obtaining informed consent, the colonoscope was passed under direct vision. Throughout the procedure, the patient's blood pressure, pulse, and oxygen saturations were monitored continuously. The Olympus Peds Colonoscope Model #PCF-H190L, Endora#131, SN#[id number] was introduced through the anus and advanced to 4 cm into the ileum. The colonoscopy was performed without difficulty. The patient tolerated the procedure well. The quality of the bowel preparation was good. Findings: The perianal exam findings include a perianal rash. The digital rectal exam was normal. Pertinent negatives include normal sphincter tone and no palpable rectal lesions. The terminal ileum appeared normal. The exam was otherwise without abnormality on direct and retroflexion views. Impression: - Perianal rash found on perianal exam. - The examined portion of the ileum was normal. - The examination was otherwise normal on direct and retroflexion views. - No specimens collected. Recommendation: - Repeat colonoscopy is not recommended only if new symptoms arise. You wound be due for a colonoscopy in 10 years but we do not recommend routine screening after 80. - Calmoseptine ointment as needed for perianal irritation. Procedure Code(s): --- Professional --- 83803, Colonoscopy, flexible; diagnostic, including collection of specimen(s) by brushing or washing, when performed (separate procedure) Diagnosis Code(s): --- Professional --- Z12.11, Encounter for screening for malignant neoplasm of colon R21, Rash and other nonspecific skin eruption CPT copyright 2016 [employer]. All rights reserved. The codes documented in this report are preliminary and upon heel scourer review may be revised to meet current compliance requirements. Beatriz Velasquez MD 08/06/2016 8:14:05 AM I was physically present for the entire viewing portion of the exam. Beatriz Velasquez MD Number of Addenda: 0 Note Initiated On: 08/06/2016 7:10 AM Procedure Date: 08/06/2016 7:10:03 AM Scope Withdrawal Time: 0 hours 8 minutes 24 seconds Total Procedure Duration: 0 hours 21 minutes 11 seconds Estimated Blood Loss: Scope In: 7:46:13 AM Scope Out: 8:07:24 AM RADIOLOGY RESULTS 08/06/2016 7:10 AM CDT us Roslyn Sandoval MD PROCEDURES Final Resul t RADIOLOGY RESULTS from Last 3 Months or Most Recently Relevant to Health Maintenance Insurance MEDICARE BC OUT OF STATE MEDICARE NONE (Work) [id number] [id number] MEDICARE Care Teams Departure Clerk Relationship Specialty Start Date End Date Jasmin Maradiaga PA-C [address] [address] PCP - General Family Medicine 03/16/21 Hector Goode MD [address] [place] [address] [id number] Neurology 05/01/17 John Cancino MD [address] [place] [id number] Family Medicine - Sports Medicine 07/30/17 Jasmin Maradiaga PA-C [address] [address] Assigned PCP 10/20/21 Carl Farah MD [address] [facility] [address] [place] [id number] Assigned Heart and Vascular Provider 05/18/22 Hector Goode MD [address] [facility] [id number] [address] Assigned Neuroscience Provider 07/01/23
--- OUTSIDE RECORDS SUMMARY | 2024-02-01 08:22 | XMS_ITS | Continuity of Care Document ---
Author Organization [facility] Address [address] [place] [address] Phone Care Team Providers Care Torch Straightener Name Role Phone Lobo SHRESTHA, Harvinder Unavailable Unavailabl e Allergies, Adverse Reactions, Alerts Substance Reaction Status Criticality Sulfa (Sulfonamide Antibiotics) Active No Information Medications Medication Instructions Dosage Effective Dates (start - stop) Status Comments Actemra 80 mg/4 mL (20 mg/mL) intravenous solution infuse (600mg) by intravenous route every 4 weeks - Active prednisone 5 mg tablet Take 1 daily with 4 1 mg pills for 9 mg total daily dose x 2 weeks, decrease by 1 mg every 2 weeks - Active prednisone 1 mg tablet take with 5mg pills for total of 9mg daily then decrease by 1mg every 4 weeks. - Active sertraline 50 mg tablet Take1.5 tablets daily - Active carvedilol 12.5 mg tablet take 1 tablet by oral route 2 times every day with food 12.5 MG - Active CALCIUM (unknown strength) Not Available - Active diclofenac 1 % topical gel apply 2 gram by topical route 4 times every day to the affected area(s) 2.00 gram - Active furosemide 20 mg tablet take 1 tablet by oral route every day 20 MG - Active rosuvastatin 5 mg tablet take 1 tablet by oral route every day 5 MG - Active irbesartan 75 mg tablet take 1 tablet by oral route every day 75 MG - Active spironolactone 25 mg tablet take 1 tablet by oral route every day 25 MG - Active Klor-Con 10 mEq tablet,extended release take 1 Tablet by oral route every day 10 MEQ - Active Aspirin Low Dose 81 mg tablet,delayed release take 1 tablet by oral route every day 81 MG - Active Fish Oil 1,000 mg (120 mg-180 mg) capsule take 1 Capsule by Oral route 2 times every day 1 Capsule - Active Vitamin D3 1,000 unit capsule take 1 by Oral route every day 1 - Active CENTRUM SILVER (unknown strength) One daily Not Available - Active Procedures Procedure Date Office/Outpatient Visit, Est Complex e/m visit add on Routine Venipuncture Assay Of Serum Albumin Assay Of Creatinine Transferase (Ast) (Sgot) Alanine Amino (Alt) (Sgpt) Complete Cbc WAuto Diff Wbc Actemra Tocilizumab Chemo, Iv Infusion, 1 Hr Actemra Tocilizumab Chemo, Iv Infusion, 1 Hr Routine Venipuncture Complete Cbc WAuto Diff Wbc Actemra Tocilizumab Chemo, Iv Infusion, 1 Hr Office/Outpatient Visit, Est Routine Venipuncture Assay Of Serum Albumin Assay Of Creatinine Transferase (Ast) (Sgot) Alanine Amino (Alt) (Sgpt) Complete Cbc WAuto Diff Wbc Actemra Tocilizumab Chemo, Iv Infusion, 1 Hr Office/Outpatient Visit, Est Routine Venipuncture Assay Of Serum Albumin Assay Of Creatinine Transferase (Ast) (Sgot) Alanine Amino (Alt) (Sgpt) Complete Cbc WAuto Diff Wbc Actemra Tocilizumab Chemo, Iv Infusion, 1 Hr Actemra Tocilizumab Chemo, Iv Infusion, 1 Hr Office/Outpatient Visit, Est Routine Venipuncture Specimen Handling Assay Of Serum Albumin Assay Of Creatinine Transferase (Ast) (Sgot) Alanine Amino (Alt) (Sgpt) Tb Test, Cell Immun Measure Complete Cbc WAuto Diff Wbc Office/Outpatient Visit, Est Routine Venipuncture Rbc Sed Rate, Automated CReactive Protein Office/Outpatient Visit, Est Routine Venipuncture CCP Antibody Office/Outpatient Visit, New Routine Venipuncture Specimen Handling Rbc Sed Rate, Automated Assay Of Ck (Cpk) Antinuclear Antibodies Dna Antibody, Single Strand Dna Antibody, [place] Nuclear Antigen Antibodies CCP Antibody Rheumatoid Factor, IGM Rheumatoid Factor, IGG, IGA Complete Cbc WAuto Diff Wbc Office/Outpatient Visit, New Results Test Name Date and Time Measure Units Reference Range Abnormal Flag Status Comments Panel Description: CBC 5 part diff Final Neutrophils# 11:44:00 4.80 K/uL 2.00-7.50 Final Neutrophil % 11:44:00 73.60 % 0.00-99.00 Final Eosinophil # 11:44:00 0.11 K/uL 0.00-0.50 Final Eosinophil % 11:44:00 1.70 % 0.00-7.00 Final Basophil # 11:44:00 0.03 K/uL 0.00-0.20 Final Basophil % 11:44:00 0.50 % 0.00-99.00 Final WBC 11:44:00 6.5 K/uL 4.0-10.0 Final RBC 11:44:00 3.66 M/uL 3.80-5.80 L Final Hemoglobin 11:44:00 13.2 g/dL 11.5-16.0 Final Hematocrit 11:44:00 37.3 % 37.0-47.0 Final MCV 11:44:00 102 fL 80-100 H Final MCH 11:44:00 36.0 pg 27.0-32.0 H Final MCHC 11:44:00 35.3 g/dL 32.0-36.0 Final RDW 11:44:00 11.5 % 11.0-16.0 Final Platelet Count 11:44:00 153 K/uL 150-500 Final MPV 11:44:00 8.2 fL 6.0-11.0 Final Lymphocyte% 11:44:00 19.00 % 25.00-50.00 L Final Lymphocyte # 11:44:00 1.2 K/uL 1.0-4.0 Final Monocytes # 11:44:00 0.34 K/uL 0.20-1.00 Final Monocytes % 11:44:00 5.20 % 2.00-10.00 Final Panel Description: DMARD Final AST 13:13:00 51 U/L 10-35 H Final ALT 13:13:00 41 IU/L 6-32 H Final Creatinine 13:13:00 1.000 mg/dL 0.500-1.050 Final ALB 13:13:00 4.7 g/dL 3.6-5.1 Final GFR 13:13:00 57.0 mL/min/1. 73 m2 Final Reported eGFR is based the CKD-EPI 2020 equation that does not use a race coefficient. Advance Directives Directive Yes / No Effective Date File Name No Information Encounters Encounter Description Practice Location Reason(s) For Visit Diagnoses Date Provider Providers Copied on Encounter Office/Outpa tient Visit, Est [facility], [address], [place], [address], [place] tel:[phone] [facility] , Giant cell arteritis with polymyalgia rheumaticaRa ised antibody titerOther termite inspector (current) drug therapyCouns eling 4 Lobo Blanton. [address], [address] [place] [address], [address], [place]. tel:[phone] Referring Provider: Harvinder Chou, [address], [place], [facility]. tel:[phone] [facility], [address], [place], [address], [place] tel:[phone] [facility] , No Information 4 Lobo Blanton. [address], [address], [place], [address], [place]. tel:[phone] Referring Provider: Harvinder Chou, [address], [place], [facility]. tel:[phone] [facility], [address], [place], [address], [place] tel:[phone] [facility] , No Information 4 Lobo Blanton. [address], [address], [address], [place]. tel:[phone] [facility], [address], [place], [place], [facility], [place] tel:[phone] [facility] , No Information 4 Lobo Blanton. [address], [address], [place], [place], [facility], [place]. tel:[phone] Referring Provider: Harvinder Chou, [address], [place], [place], [facility]. 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 [address], [address], [place], [place], [facility], [place]. tel:[phone] Referring Provider: Harvinder Chou, [address] [place] [address], [facility]. tel:[phone] [facility], [address], [place], [facility], [place] tel:[phone] [facility] , No Information 4 Lobo Blanton. [address], [address], [place], [place], [facility], [place]. tel:[phone] Referring Provider: Harvinder Chou, [address] [place] [address], [facility]. tel:[phone] Office/Outpa tient Visit, Est [facility], [address], [place], [address], [place] tel:[phone] [facility] , Raised antibody titerGiant cell arteritis with polymyalgia rheumaticaOt her fci (current) drug therapyAbnor mal results of liver function studies 4 Lobo Blanton. [address], [address], [place], [place], [facility], [place]. tel:[phone] Referring Provider: Harvinder Chou, [address], [place], [place], [facility]. tel:[phone] [facility], [address], [place], [facility], [place] tel:[phone] [facility] , No Information 4 Lobo Blanton. [address], [address], [place], [place], [facility], [place]. tel:[phone] Referring Provider: Harvinder Diamond José Antonio, [address], [place], [facility]. tel:[phone] Office/Outpa tient Visit, Est [facility], [address], [place], [facility], tel:[phone] [facility] , Raised antibody titerGiant cell arteritis with polymyalgia rheumaticaOt her termite inspector (current) drug therapyWeakn ess 4 Lobo Blanton. [address], [place], [facility], [place]. tel:[phone] Referring Provider: Harvinder Chou, [address], [place], [place], [facility]. tel:[phone] [facility], [address], [place], [facility], [place] tel:[phone] [facility] , No Information 4 Lobo Blanton. [address], [place], [facility], [place]. tel:[phone] Referring Provider: Harvinder Diamond José Antonio, [address], [place], [facility]. tel:[phone] [facility], [address], [place], [facility], [place] tel:[phone] [facility] , No Information 4 Lobo Blanton. [address], [address], [place], [place], [facility], [place]. tel:[phone] Referring Provider: Harvinder Chou, [address], [place], [place], [facility]. tel:[phone] Office/Outpa tient Visit, Est [facility], [address], [place], [place], [facility], [place] tel:[phone] [facility] , Raised antibody titerOther termite inspector (current) drug therapyGiant cell arteritis with polymyalgia rheumatica 4 Lobo Blanton. [address], [address], [place], [place], [facility], [place]. tel:[phone] Referring Provider: Harvinder Chou, [address], [place], [place], [facility]. tel:[phone] Office/Outpa tient Visit, Est [facility], [address], [place], [place], [facility], [place] tel:[phone] [facility] , Polymyalgia rheumaticaOt her termite inspector (current) drug therapyRaise d antibody titer 4 Lobo Blanton. [address], [address], [place], [place], [facility], [place]. tel:[phone] Referring Provider: Harvinder Chou, [address], [place], [place], [facility]. tel:[phone] Office/Outpa tient Visit, Est [facility], [address], [place], [address], [place] tel:[phone] [facility] , Polymyalgia rheumaticaOt her termite inspector (current) drug therapy 4 Lobo Blanton. [address], [address], [place], [address], [place]. tel:[phone] Referring Provider: Harvinder Diamond José Antonio, [address], [place], [address]. tel:[phone] Office/Outpa tient Visit, New [facility], [address], [place], [address], [place] tel:[phone] [facility] , Inflammatory polyarthropa thyOther fci (current) drug therapy 4 Lobo Blanton. [address], [address], [place], [address], [place]. tel:[phone] Referring Provider: Nikhil Ac José Antonio, [address], [place], [address]. tel:[phone] Office/Outpa tient Visit, New [facility], [address], [place], [address], [place] tel:[phone] [facility] , Back pain (chief complaint) Low back painMuscular dystrophy, unspecified 9 Jose Rafael Martinez. [facility] [address], [place], [address], [place]. tel:[phone] Referring Provider: Juan Garcia, [facility] [address], [place], [address]. tel:[phone] [facility], [address], [place], [address], [place] tel:[phone] [facility] , No Information 9 Jose Rafael Martinez. [facility] [address], [place], [address], [place]. 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 She is retired. No alcohol or tobacco use Non-Smoking Tobacco Use Details : No Details Available : No Details Available Sex Female Vital Signs Date / Time: Height Weight BMI Pulse Rate Blood Pressure Temperature Respiratory Rate Body Surface Area Head Circumference Head Circ. Percentile Wt./Josué. Percentile BMI percentile Pulse Ox Inhaled Ox 10:33 AM 62.50 in 111.493 kg (245.80 lbs) 44.2 4 kg/m eter (2) 122/63 mm[Hg] 97.30 F Chief Complaint And Reason For Visit No Information Reason For Referral Reason For Referral No Information Plan Of Treatment Date Type Action Status Appointment Griselda Lai BOOKED Appointment Griselda Lai BOOKED History Of Present Illness Encounter Date Complaint History Of Prese nt Illness Back pain Functional Status Date Functional Assessmen t No Information Instructions Date Instruction Additional Infor qing Continue Actemra. We will have her remain on this for at least a year after stopping prednisone, and consider stopping if doing well at that timePrednisone taper: Currently at 3 mg daily. Continue to decrease by 1 mg every 2 weeks until off Related to Giant cell arteritis with polymyalgia rheumatica CBC/DMARD today Related to Other termite inspector (current) drug therapy prednisone taper: St arting tomorrow decrease to 9 mg daily x 2 weeks, then decrease by 1 mg every 2 weeks, not to taper below 5 mg daily until seen again in clinicShe will follow-up in clinic in 3 monthsContinue Actemra 6 mg/kg every 4 weeks Related to Giant cell arteritis with polymyalgia rheumatica CBC/DMARD today Related to Other fci (current) drug therapy prednisone taper: St arted tomorrow decrease to 12.5 mg daily x 2 weeks, then 10 mg daily until follow-upShe will follow-up in clinic in 4 weeksContinue Actemra 6 mg/kg every 4 weeks Related to Giant cell arteritis with polymyalgia rheumatica CBC/DMARD today Related to Other fci (current) drug therapy Continue prednisone 12.5 mg daily for nowStart Actemra 6 mg/kg every 4 weeks once approved Related to Giant cell arteritis with polymyalgia rheumatica baseline hepatitis a nd TB screens today in anticipation of long-term immunosuppression Related to Other fci (current) drug therapy Prednisone taper: af ter 2 weeks at 10 mg daily she will decrease to 1 mg daily for 4 weeks, and then decrease by 1 mg every 4 weeks ESR/CRP today Related to Polymyalgia rheumatica Prednisone taper: Co ntinue 20 mg daily for 2 more weeks, then decrease to 17.5 mg daily x 2 weeks, then decrease by 2.5 mg every 2 weeks not to taper below 10 mg daily until seen again in clinic Related to Polymyalgia rheumatica Labs as belowStart p rednisone 20 mg daily, we will begin to taper this once diagnostic picture is a bit more clear Related to Inflammatory polyarthropathy It's possible that t he muscle weakness in her legs is playing a role in her back pain but I don't think it is a large role. Physical therapy would've helped more with her back pain if that is the case. Related to Muscular dystrophy, unspecified This is obviously he r main musculoskeletal issue. It is a long-standing and gradually progressive problem, particularly worse over the last 3 years. 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 Although there is MRI evidence of spinal stenosis, she has few radiculopathic symptoms. The main issue is back pain. I think she is on necessarily denying herself the potential benefit of epidural corticosteroid injections. The flushing reactions that she gets from injections certainly do not represent an allergy. These are fairly common and generally short lived and benign. That seems to have been the case for her as well. I encouraged her to talk to her pain physicians about this. In addition, I discussed conservative management of osteoarthritic pain in detail with her. She might benefit from low impact exercise such as warm water pool exercise although her cardiomyopathy might limit her in that regard. Related to Low back pain Assessments Type Assessment Date assessment Giant cell arteritis with polymy algia rheumatica impression She has had some ret urn of aches and pains with tapering of prednisone but I do not think that is due to a relapse of disease. I believe that her GCA/PMR remains well-controlled and that she can taper off the prednisone. assessment Raised antibody titer impression She does have a posi tive DRAKE, but clinical picture is more consistent with GCA/PMR than lupus or another DRAKE related disease. I will continue to monitor her for the development of 1 of those however. Extractable nuclear antigens were negative. assessment Other termite inspector (current) drug t herapy impression She is tolerating Actemra well N assessment Counseling impression We discussed the daphnie ing of her Actemra infusion with her upcoming cochlear implant. She will be getting the implant placed about a week following the infusion. She will be on 1 mg of prednisone at the time. Sometimes, we delay infusions around her surgery like this to reduce the risk of infection, but I think that in this case there is a high risk so that we will trigger a flare of her PMR/GCA, which would likely also complicate healing. I thus recommended that she remain on Actemra throughout the perioperative period and not delay or skip any doses. She will review this recommendation with her surgeon as well. We did discuss that there likely is somewhat of a high risk of infection associated with this strategy. Patient Care Teams Name Effective Dates (start - stop) Status Members No Information
--- OUTSIDE RECORDS SUMMARY | 2024-02-01 08:22 | XMS_ITS | Encounter Summary ---
Author Organization [facility] Address [address] [facility] [place] [address] Care Team Providers Care Molded Goods Spot Picker Name Role Phone Hector Goode MD Unavailable John Cancino MD Unavailable [phone] Jasmin Maradiaga PA-C Primary Care Provid er Jasmin Maradiaga PA-C Unavailable + [phone] Carl Farah MD Unavailable [phone] Hector Goode MD Unavailable Encounter Details Date Type Department Care Team (Latest Contact Info) Description 01/07/2024 Travel Social History Tobacco Use Types Packs/Day Years Used Date Smoking Tobacco: Never Passive Smoke Exposure: Never Smokeless Tobacco: Never Alcohol Use Standard Drinks/Week Comments No 0 [...] on file Legal Sex Female 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 Gender Identity Not on file Sexual Orientation Not on file documented as of this encounter Plan of Treatment Upcoming Encounters Date Type Department Care Team (Late st Contact Info) Description 06/14/2024 1:00 PM CDT Office Visit [facility] [address] [place] [id number] Hector Goode MD [address] [place] [address] documented as of this encounter Visit Diagnoses Not on filedocumented in this encounter Additional Health Concerns Assessment Noted Time PHQ-9 Depression Total Score: 8 04/30/19 24 2:24 PM CANCER REGISTRY COORDINATOR documented as of this encounter Care Teams Molded Goods Spot Picker Relationship Specialty Start Date End Date Jasmin Maradiaga PA-C [address] , [facility] [address] [place] [address] PCP - General Family Medicine 03/16/21 Hector Goode MD [address] [place] [address] Neurology 05/01/17 John Cancino MD [address] [place] [address] Family Medicine - Sports Medicine 07/30/17 Jasmin Maradiaga PA-C [address] , [facility] [address] [place] [address] Assigned PCP 10/20/21 Carl Farah MD [address] [place] [address] Assigned Heart and Vascular Provider 05/18/22 Hector Goode MD [address] [id number] [place], [place] [address] Assigned Neuroscience Provider 07/01/23 documented as of this encounter
--- OUTSIDE RECORDS SUMMARY | 2024-02-01 08:22 | XMS_ITS | Referral Summary ---
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 [address] [place] [address] [address] [place] [address] Gavi Cloud MD Urinary symptom or sign (Primary Dx); Hematuria, unspecified type; Personal history of malignant neoplasm of bladder; Other fatigue; Genital atrophy of female; Vaginal bleeding from Last 3 Months Allergies Active Allergy Reactions Criticality Noted Date [...] tab. 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 Gender Identity Not on file Sexual Orientation [...] Description 06/14/2024 1:00 PM CDT Office Visit [facility] [address] [place] [id number] Hector Goode MD [address] [place] [address] [id number] [place], [place] [id number] Procedures Procedure Name Priority Date/Time Associated Diagnosis Comments [place] PELVIC EXAMINATION Routine 01/07/2024 5:39 PM CDT Hematuria, unspecified type Genital atrophy of female Vaginal bleeding URINE CULTURE AEROBIC BACTERIAL ([facility]) Routine 01/07/2024 3:21 PM CDT Urinary symptom or sign Hematuria, unspecified type [place] COLLECTION VENOUS BLOOD VENIPUNCTURE Routine 01/07/2024 3:08 PM CDT Other fatigue COMPREHENSIVE METABOLIC PANEL ([facility]) Routine 01/07/2024 Other fatigue HEMOGRAM PLATELET DIFF (B[facility]) Routine 01/07/2024 Other fatigue URINALYSIS, ROUTINE ([facility]) Routine 01/07/2024 Urinary symptom or sign LIPID PANEL (BFP) Routine 09/09/2023 Mixed hyperlipidemia MA SCREENING BILATERAL W/ KEVIN Routine 05/26/2023 ALT (EXTERNAL RESULT) Routine 04/09/2023 2:06 PM FLIGHT ENGINEER CBC WITH PLATELETS & DIFFERENTIAL STAT 01/01/2021 9:18 PM CDT DX BONE DENSITY Routine 12/21/2020 Screening for osteoporosis TSH WITH FREE T4 REFLEX Routine 05/24/2020 5:28 PM CDT Tired COLONOSCOPY Routine 08/06/2016 7:10 AM CDT from Last 3 Months or Most Recently Relevant to Health Maintenance Results * URINE CULTURE AEROBIC BACTERIAL ([facility]) (01/07/2024 3:21 PM CDT) Urine Voided Culture SEE NOTE [facility] Comment: CULTURE, URINE, ROUTINE Micro Number: [id number] Test Status: Final Specimen Source: Urine Specimen Quality: Adequate Result: No Growth Urine 01/07/2024 3:21 PM CDT 01/08/2024 6:22 AM CDT Narrative Resulting Agency Comment Performing Organization Information: [facility] [address] [place] [address] Serafin Tse Gavi Cloud MD LAB - NON-BEAKER NON-BLOOD F inal Result [facility] [phone] * (ABNORMAL) URINALYSIS, ROUTINE (BFP) (01/07/2024) Color Urine Yellow [facility] INTERNAL Appearance Urine Slightly Cloudy(A) [facility] INTERNAL Glucose Urine Neg mg/dL [facility] INTERNAL Bilirubin Urine Neg [facility] INTERNAL Ketones Urine Neg mg/dL [facility] INTERNAL Specific [place] Urine 1.020 [facility] INTERNAL Blood Urine Large(A) [...] INTERNAL Miscellaneous neg [facility] INTERNAL Urine 01/07/2024 Gavi Cloud MD LAB - NON-BEAKER NON-BLOOD F inal Result Performing Organization Address [facility]/ZIP Co de Phone Number [facility] INTERNAL [address] [place] [address] * (ABNORMAL) HEMOGRAM PLATELET DIFF (BFP) (01/07/2024) [...] Monocytes 9.2 % [facility] INTERNAL Blood 01/07/2024 Gavi Cloud MD LAB - NON-[facility] BLOOD LABS Final Result Performing Organization Address [facility]/ZIP Co de Phone Number [facility] INTERNAL [address] [address] * (ABNORMAL) Comprehensive Metobolic Panel (BFP) (01/07/2024) Carbon Dioxide 25.3 20 - 32 mmol/L [...] 01/07/2024 us Gavi Cloud MD LAB - NON-[employer] BLOOD LABS Final Result [facility] INTERNAL [address] [place] [address] [address] [place] [address] * Lipid Panel (BFP) (09/09/2023) Cholesterol 172 0 - 199 mg/dL [facility] INTERNAL Triglycerides 77 0 - 149 mg/dL [facility] HDL Cholesterol 82 40 - 150 mg/dL [facility] LDL-C 75 mg/dL [facility] Cholesterol/HDL Ratio 2 0 - 5 [facility] INTERNAL Blood 09/09/2023 us Lewis Macias MD LAB - NON-[employer] BLOO D LABS Final Result Performing Organization Address City/[facility]/ZIP Co de Phone Number [facility] INTERNAL [address] [place] [address] [address] [place] [address] * MA Screening Bilateral w/ Kevin (05/26/2023) MAMMOGRAM Anatomical Region Laterality Modality Breast Bilateral Other Narrative 05/26/2023 [address] [facility], [address] [place] [address] [place] : 1945 Req Phys: Jasmin Maradiaga, BOBO Patient name: GRISELDA LAI Clinic: [facility] Dept No: [id number] MAMMOGRAM SCREENING KEVIN BILATERAL Exam Date: 05/26/2023 EXAM: MAMMOGRAM SCREENING KEVIN BILATERAL LOCATION: [facility] [place] DATE: 05/26/2023 INDICATION: Asymptomatic. Screening Mammogram. COMPARISON: [...] health insurance. Recommendations are based on the [employer] Appropriateness Criteria. Patients with [...] * ALT (External Result) (04/09/2023 2:06 PM FLIGHT ENGINEER) ALT (External) 24 6 - 29 U/L [facility] Blood 04/09/2023 2:06 PM FLIGHT ENGINEER Narrative [facility] - 04/09/2023 2:06 PM FLIGHT ENGINEER [facility] Lab Results us Provider Outside LAB - HIM EXTERNAL RESULT Edite d Result - Final [facility] [address] [place] [address], [facility] [phone] * Dexa hip/pelvis/spine* (12/21/2020) Anatomical Region Laterality Modality Dexa Other Narrative 12/21/[address] [place] [address], [address] [place] [address] [place] : 1945 Req Phys: Josiah Stockton MD Clinic: [facility] Patient name: GRISELDA LAI [facility] Dept No: [id number] BONE DENSITY Exam Date: 12/21/2020 EXAM: BONE MINERAL DENSITY (DEXA) EXAM LOCATION: [facility] DATE/TIME: 12/21/2020 3:46 PM INDICATION: Screening for osteoporosis. COMPARISON: Most recent examination 10/05/2001. TECHNIQUE: The study was performed using DEXA in the AP lumbar spine and AP femur using a [employer] C. FINDINGS: Using DEXA, the results [...] physician: 12/22/2020 11:39:00AM Page 1 of 1 us Josiah Stockton MD IMG DEXA ORDERABLES Final Result * TSH with free T4 reflex ([facility]) (05/24/2020 5:28 PM CDT) TSH 2.63 0.40 - 4.50 mIU/L [facility] Blood specimen (specimen) 05/24/2020 5:28 PM CDT 05/26/2020 3:08 AM CDT Narrative Resulting Agency Comment Performing Organization Information: [facility] [address] [place] [address] Serafin Tse M.D. us Gavi Cloud MD LAB - BLOOD ORDERABLES Final Result [facility] [phone] * COLONOSCOPY (08/06/2016 7:10 AM CDT) COLONOSCOPY [facility] Patient Name: Griselda Lai Procedure Date: 08/06/2016 7:10 AM Date of [...] The Olympus Peds Colonoscope Model #[id number]-H190L, [place]#131, SN#[id number] was introduced through the anus and advanced [...] perianal irritation. Procedure Code(s): --- Professional --- 34687, Colonoscopy, flexible; diagnostic, including collection of specimen(s) by brushing or washing, when performed (separate procedure) Diagnosis Code(s): --- Professional --- Z12.11, Encounter for screening for malignant neoplasm of colon R21, Rash and other nonspecific skin eruption CPT copyright 2016 [employer]. All rights reserved. The codes documented in this report are preliminary and upon loan reviewer review may be revised to meet current [...] Recently Relevant to Health Maintenance Insurance MEDICARE [facility] OUT OF STATE MEDICARE MEDICARE Care Teams Sugar Plantation Manager Relationship Specialty Start Date End Date Jasmin Maradiaga PA-C [facility] [address] , [address] [address] PCP - General Family Medicine 03/16/21 Hector Goode MD [address] [address] Neurology 05/01/17 John Cancino MD [address] [place] [address] Family Medicine - Sports Medicine 07/30/17 Jasmin Maradiaga PA-C [address] [place] [address] Assigned PCP 10/20/21 Carl Farah MD [address] [place] [phone] Assigned Heart and Vascular Provider 05/18/22 Hector Goode MD [address] [facility] [address] [place], [place] [address] Assigned Neuroscience Provider 07/01/23
--- OUTSIDE RECORDS SUMMARY | 2024-02-01 08:22 | XMS_ITS | Data Portability ---
Author Organization [facility] Address [address] [place] [address] Care Team Providers Care Frame Expander Name Role Phone GEOVANNIGAVI KABA Referring Provider Assessment No assessment recorded. Plan of Treatment Reminders Order Date Submit Date Provider Last Modified By Organization Details Last Modified Time Details Appointments None recorde d. Lab urinaly sis, dipstic k 2023 024 zack [facility], [address], [place], [address], 11:28:37 Referral None recorde d. Procedures None recorde d. Surgeries None recorde d. Imaging CT, urogram 2023 024 [facility] , [address] [place], [address], 12:00:18 Medication Orders None recorde d. Patient TargetsNo targets recorded. Patient InstructionsNo instructions recorded. Reason for Referral None Reported. Results Created Date Observation Date Name Description Value Unit Range Abnormal Flag Note LastModifiedBy Organization Detail LastModifiedTime 01/15/2001/15/2024 urina lysis , dipst ick BLOOD Trace (5 RBC/uL ) Not Available [facility] [address], [place], [address], 01/15/2024 10:59:40 01/15/20 24 01/15/2024 urina lysis , dipst ick BILIRUBIN Small (0.5 mg/dL) Not Available [facility] [address], [place], [address], 01/15/2024 10:59:40 01/15/20 24 01/15/2024 urina lysis , dipst ick UROBILINOGEN 1.0 mg/dL Not Available [facility] [address], [place], [address], 01/15/2024 10:59:40 01/15/20 24 01/15/2024 urina lysis , dipst ick KETONES Negati ve Not Available [facility] [address], [place], [address], 01/15/2024 10:59:40 01/15/20 24 01/15/2024 urina lysis , dipst ick PROTEIN Negati ve Not Available [facility] [address], [place], [address], 01/15/2024 10:59:40 01/15/20 24 01/15/2024 urina lysis , dipst ick NITRITES Negati ve Not Available [facility] [address], [place], [address], 01/15/2024 10:59:40 01/15/20 24 01/15/2024 urina lysis , dipst ick GLUCOSE Negati ve Not Available [facility] [address], [place], [address], 01/15/2024 10:59:40 01/15/20 24 01/15/2024 urina lysis , dipst ick p.H. 5.5 Not Available [facility] [address], [place], [address], 01/15/2024 10:59:40 01/15/20 24 01/15/2024 urina lysis , dipst ick S.G. (Specific [place]) 1.025 Not Available [facility] [address], [place], [address], 01/15/2024 10:59:40 01/15/20 24 01/15/2024 urina lysis , dipst ick LEUKOCYTES Negati ve Not Available [facility] [address], [place], [address], 01/15/2024 10:59:40 01/23/20 24 01/23/2024 CT, abdom en + pelvi s, w/o contr ast EXAM: CT, ABDOME N + PELVIS , W/O CONTRA ST LOCATI ON: [facility] DATE: 2023 INDICA TION: Gross hematu jessica COMPAR MARIA INES: 015. TECHNI QUE: CT scan of the abdome n and pelvis was perfor med withou t IV contra st. Multip lanar reform ats were obtain ed. Dose reduct ion techni ques were used. CONTRA ST: None. FINDIN GS: LOWER CHEST: Small cluste r of bronch ioliti c left lower lobe nodule s. No pneumo maykel consol idatio n. HEPATO BILIAR Y: Normal unenha nced liver. The gallbl adder is nondis tended and contai ns a small amount of sludge or noncal cified stones . PANCRE : Normal . SPLEEN : Normal . ADRENA L GLANDS : Normal . KIDNEY S/BLAD ЮЛИЯ: Lobula soren renal contou rs. No suspic ious noncon trast renal lesion . A 2 x 2 by 3 mm stone at the left ureter opelvi c juncti on does not result in upstre am urinar y obstru ction. No other nephro lith or ureter al stone identi fied on either side. Normal unenha nced bladde r. BOWEL: No obstru ction or inflam matory change . Tiny duoden al divert icula. Normal append ix. LYMPH NODES: No lympha denopa thy. VASCUL ATURE: Mild athero sclero sis withou t abdomi nal aortic aneury sm. PELVIC ORGANS : Calcif ied/de genera tive uterin e fibroi ds withou t suspic ious pelvic mass. MUSCUL OSKELE ARASH: No aggres sive osseou s lesion . Lumbar spondy losis. IMPRES YANIV: 1. A 3 mm stone at the left ureter opelvi c juncti on does not result in urinar y obstru ction. 2. Small cluste r of infect ious or inflam matory left lower lobe bronch ioliti c nodule s. This report was electr onical ly interp reted by: Lev Lindsey MD on 2023 at 15:[address] [facility] [address], [place], [address], 01/26/2024 12:08:25 Result Notes None recorded. Problems Name Problem SNOMED Code Status Onset Date Resolution Date Notes Provider Name and Address Organization Details Recorded Time History of malignant neoplasm of bladder 057860847 Active 2011 V10.51 : PERSONAL HX BLADDER CA Not Available [facility] 0 01:54:58 Problem Notes None recorded. Procedures Surgical History Date Name Laterality Status Provider Name and Address Organization Details Recorded Time 01/15/20 24 CystoscopyFemale completed Dong Stewart MD [address] [facility],[address], [place], [address], [facility] 01/15/2024 11:19:23 01/15/20 24 Bladder Scan completed Beatriz Richards [facility] 01/15/2024 11:04:32 Imaging Results Imaging Date Name Status LastModified by Organiz ation Details LastModified Time 01/23/2024 CT, abdomen + pelvis, w/o contrast completed [address] [facility] [address], [place], [address], 01/26/2024 12:08:25 Procedure Notes None recorded. Medical Equipment None Reported. Allergies Allergen ID Allergen Name Allergen Category Reaction Reaction Severity Criticality Documentation Date Start Date Code Code System Note Provider Name and Address Organization Details Recorded Time 497152 cortisone medicatio n Not available Not available Not available 08/26/20192011 2878 RxNorm React ion: Shock /Unco nscio sami s Not Available [facility] 0 00:42:43 144770 Substance with sulfonami de structure and antibacte rial mechanism of action (substanc e) medicatio n Not available Not available Not available 01/15/2024 19865 8003 SNOMED Beatriz Richards [facility] 4 10:53:39 Medications Name Sig Start Date Stop Date Status Note LastModified by Organization Details LastModified Time celecoxib 200 mg capsule TAKE 1 CAPSULE BY MOUTH EVERY DAY NEEDED 01/14 completed Not Available Not Available Not Available carvedilol 12.5 mg tablet active Not Available Not Available Not Available hydrocodone 5 mg-acetamin ophen 325 mg tablet TAKE 1 TABLET EVERY 6 HOURS NEEDED FOR PAIN active Not Available Not Available No t Available meloxicam 15 mg tablet TAKE 1 TABLET BY MOUTH EVERY DAY WITH FOOD 01/14 completed Not Available Not Available Not Available prednisone 5 mg tablet TAKE 1 DAILY WITH FOUR 1 MG TABS FOR 9 MG TOTAL DAILY DOSE X 2 WEEKS, DECREASE BY 1 MG EVERY 2 WEEKS active Not Available Not Available No t Available omeprazole 40 mg capsule,del ayed release TAKE 1 CAPSULE (40 MG) BY MOUTH DAILY NEEDED ([place]) active Not Available Not Available No t Available spironolact one 25 mg tablet active Not Available Not Available Not Available prednisone 1 mg tablet TAKE WITH 5MG TABS FOR TOTAL OF 9MG DAILY THEN DECREASE BY 1MG EVERY 4 WEEKS. active Not Available Not Available No t Available diazepam 2 mg tablet TAKE 1 TABLET (2 MG) BY MOUTH 20-30 MINUTES PRIOR TO YOUR PROCEDURE 01/14 completed Not Available Not Available Not Available misoprostol 200 mcg tablet INSERT 1 TABLET (200 MCG) VAGINALLY THE NIGHT PRIOR TO PROCEDURE 01/14 completed Not Available Not Available Not Available sertraline 25 mg tablet TAKE 1 TABLET BY MOUTH EVERY DAY 01/14 completed Not Available Not Available Not Available irbesartan 75 mg tablet active Not Available Not Available Not Available furosemide 20 mg tablet TAKE 1 TABLET DAILY PLUS 1 ADDITIONA L TABLET NEEDEDFOR EDEMA/PRAKASH RTNESS OF BREATH active Not Available Not Available No t Available betaxolol 0.5 % eye drops INSTILL 1 DROP INTO RIGHT EYE TWICE A DAY active Not Available Not Available No t Available methylpredn isolone 4 mg tablets in a dose pack TAKE 6 TABLETS ON DAY 1 DIRECTED ON PACKAGE AND DECREASE BY 1 TAB EACH DAY FOR A TOTAL OF 6 DAYS 01/14 completed Not Available Not Available Not Available ondansetron 4 mg disintegrat ing tablet TAKE 1 TABLET BY MOUTH EVERY 8 HOURS NEEDED FOR NAUSEA 01/14 completed Not Available Not Available Not Available sertraline 50 mg tablet TAKE 1.5 TABLETS BY MOUTH DAILY active Not Available Not Available No t Available dorzolamide 2 % eye drops INSTILL 1 DROP INTO RIGHT EYE TWICE A DAY active Not Available Not Available No t Available cyclobenzap rine 5 mg tablet TAKE 1 TABLET BY MOUTH 3 TIMES DAILY NEEDED FOR MUSCLE SPASMS 01/14 completed Not Available Not Available Not Available Gleevec 400 mg tablet active Not Available Not Available No t Available rosuvastati n 5 mg tablet active Not Available Not Available Not Available Klor-Con M10 mEq tablet,exte nded release active Not Available Not Available Not Available Asmanex Twisthaler 220 mcg/actuati on(60 doses) breath activated inhalr USE 1 INHALATIO N BY MOUTH ONCE EVERY DAY AT NIGHTTIME . RINSE MOUTH AND SPIT AFTER USE OR BRUSH TEETH* active Not Available Not Available No t Available diclofenac 1 % topical gel APPLY (2G) BY TOPICAL ROUTE 3 TIMES EVERY DAY TO THE AFFECTED AREA(S) NEEDED FOR OA active Not Available Not Available No t Available Actemra active Not Available Not Avail able Not Available tafluprost (PF) 0.0015 % eye drops in a dropperette INSTILL 1 DROP INTO RIGHT EYE NIGHTLY active Not Available Not Available No t Available Arnuity Ellipta 100 mcg/actuati on powder for inhalation 01/14 completed Not Available Not Available Not Available Vitals Date Recorded Body height Body mass index (BMI) Body weight Provider Name and Address Organization Details Last Updated DateTime 01/15/2024 162.56 cm 37.8 kg/m2 24059.32 g Beatriz Richards [facility] 01/15/2024 10:53:23 Social History Question Answer Notes LastModified by Organizat ion Details LastModified Time Tobacco Smoking Status Never Smoker Beatriz benitez [facility] 01/15/2024 10:57:07 What Is Your Level Of Alcohol Consumption? None [email or web address] Information not available 01/15/2024 What Was The Date Of Your Most Recent Tobacco Screening? 01/15/2024 [email or web address] Information not available 01/15/2024 Sex: Unknown Functional Status None recorded. Mental Status None recorded. Family History Nothing Reported. Medical History No medical history recorded. Gynecological HistoryNo gynecological history recorded. Obstetrics History GPAL:G 0 P 0 0 0 0 Immunizations Vaccine Type Date Status Provider Name and Address Organization Details Recorded Time Influenza, split virus, quadrivalent, preservative 12/21/2015 completed Beatriz Richards null, [facility] 01/15/2024 10:53:30 Influenza, high-dose, quadrivalent, PF 12/15/2020 completed Beatriz Richards null, [facility] 01/15/2024 10:53:31 Influenza, high-dose, quadrivalent, PF 12/28/2021 completed Beatriz Richards null, [facility] 01/15/2024 10:53:31 Influenza, high-dose, quadrivalent, PF 01/06/2020 completed Beatriz Richards null, [facility] 01/15/2024 10:53:31 Influenza, high-dose, quadrivalent, PF 01/21/2023 completed Beatriz benitez, [facility] 01/15/2024 10:53:31 COVID-19, mRNA, LNP-S, PF, 30 mcg/0.3 mL dose 04/29/2020 completed Beatriz beintez, [facility] 01/15/2024 10:53:31 COVID-19, mRNA, LNP-S, PF, 30 mcg/0.3 mL dose 05/20/2020 completed Beatriz Richards null, [facility] 01/15/2024 10:53:31 COVID-19, mRNA, LNP-S, PF, 30 mcg/0.3 mL dose 09[facility]25[facility]2021 [facility] 10:53:31 COVID-19, mRNA, LNP-S, PF, 30 mcg/0.3 mL dose 01[facility]12/2021 [facility] 10:53:31 COVID-19, mRNA, LNP-S, bivalent, PF, 30 mcg/0.3 mL dose 02/12/2022 completed Beatriz benitez, [facility] 01/15/2024 10:53:31 COVID-19, mRNA, LNP-S, PF, yokasta-sucrose, 30 mcg/0.3 mL 01/21/2023 completed Beatriz benitez, [facility] 01/15/2024 10:53:31 pneumococcal polysaccharide PPV23 12/19/2006 completed Beatriz benitez, [facility] 01/15/2024 10:53:31 pneumococcal polysaccharide PPV23 01/23/2018 completed Beatriz benitez, [facility] 01/15/2024 10:53:31 Novel [id number], all formulations 02/09/2009 completed Beatriz benitez, [facility] 01/15/2024 10:53:31 Pneumococcal conjugate PCV 13 02/19/2012 completed Beatriz benitez, [facility] 01/15/2024 10:53:31 zoster live 02/26/2007 completed Beatriz benitez, [facility] 01/15/2024 10:53:31 Influenza, high-dose, trivalent, PF 12/25/2015 completed Beatriz benitez, [facility] 01/15/2024 10:53:31 Influenza, high-dose, trivalent, PF 01/16/2019 completed Beatriz benitez, [facility] 01/15/2024 10:53:31 Influenza, split virus, trivalent, preservative 11/21/2008 completed Beatriz benitez, [facility] 01/15/2024 10:53:31 Influenza, split virus, trivalent, preservative 12/16/2003 completed Beatriz benitez, [facility] 01/15/2024 10:53:31 Influenza, split virus, trivalent, preservative 12/16/2002 completed Beatriz benitez, [facility] 01/15/2024 10:53:31 Influenza, split virus, trivalent, preservative 12/19/2006 completed Beatriz benitez, [facility] 01/15/2024 10:53:31 Influenza, split virus, trivalent, preservative 12/20/1998 completed Beatriz benitez, [facility] 01/15/2024 10:53:31 Influenza, split virus, trivalent, preservative 12/29/2000 completed Beatriz benitez, [facility] 01/15/2024 10:53:31 Influenza, split virus, trivalent, preservative 01/02/2006 completed Beatriz benitez, [facility] 01/15/2024 10:53:31 Influenza, split virus, trivalent, preservative 01/06/2008 completed Beatriz benitez, [facility] 01/15/2024 10:53:31 Influenza, split virus, trivalent, preservative 02/28/2000 completed Beatriz benitez, [facility] 01/15/2024 10:53:31 Influenza, split virus, trivalent, PF 12/06/2009 completed Beatriz benitez, [facility] 01/15/2024 10:53:31 Influenza, split virus, trivalent, PF 12/19/2011 completed Beatriz benitez, [facility] 01/15/2024 10:53:31 Td (adult), 5 Lf tetanus toxoid, preservative free, adsorbed 07/03/2009 completed Beatriz benitez, [facility] 01/15/2024 10:53:31 Influenza, split virus, quadrivalent, PF 11/29/2016 completed Beatriz benitez, [facility] 01/15/2024 10:53:31 Influenza, split virus, quadrivalent, PF 12/30/2014 completed Beatriz benitez, [facility] 01/15/2024 10:53:31 Influenza, split virus, quadrivalent, PF 01/23/2018 completed Beatriz benitez, [facility] 01/15/2024 10:53:31 Past Encounters Encounter ID Performer Location Encounter Start Date Encounter Closed Date Diagnosis/Indication Diagnosis SNOMED-CT Code Diagnosis ICD10 Code [id number] MD MIRTHA Rodrigues_Michela [address] [place] [address] 01/15/2024 10:39:58 01/16/2024 11:03:16 Juan C hematuria 685084315 R31.0 Health Concerns Section Related Observation LastModified by Organization Detai ls LastModified Time None Recorded Concern Status LastModified by Organization Details LastModified Time None Recorded Advance Directives Directive None Recorded Payers Encounter Date Sequence Insurance Name Policy Number Policy Bach Covered Member ID Bach Member ID Guarantor Name 01/15/2024 1 [place]: [employer] Griseldaaudi Torreon [id number] Griselda K Ming 01/15/2024 2 [place] [id number] Griselda K Ming [id number] Griselda K Ming Notes Date Note Type Note Provider Name and Address Organization Details Recorded Time 01/15/2024 text/html 79 YO F referred by Dr. Gavi Cloud MD ([facility]) for evaluation of hematuria w/ history of bladder cancer.She reports brownish urine on and off in the past weeks. NO gross hematuria; started to wear a pad with standing up ( urgency) . She seen OBGYN, evaluated with pelvic exam; pelvic US was normal. 1. Hematuria- Reported dark urine for a little less than a week - doesn't think the blood is coming from her vagina- Hx of bladder cancer, 18 years ago; so she was concerned about the change. Denies fever, abdominal pain, dysuria. UA Hx:- 01/07/24: large blood UA= tracePVR=7ccCysto is normallichen sclerosis with sore sore at the perineum Dong Stewart MD [address] [place] [address],[address], [place], [address], [place] [facility] 01/15/2024 11:28:42 OBGyn Episode No OBEpisode recorded.
--- OUTSIDE RECORDS SUMMARY | 2024-02-01 08:22 | XMS_ITS | Continuity of Care Document ---
Author Organization [facility] maykel Address [address] [place] [address] Phone Care Team Providers Care Associate Professor Of Library Media Name Role Phone Violette Ashley DNP Unavailable [...] Diagnoses Date Provider Providers Copied on Encounter [facility], [address] [place], [place], [id number] , [place] tel:[phone] [facility] No Information 4 Dion Oakes. [address], [facility] [address], [place], [place], [id number], [place]. tel:[phone] OFFICE/OUTPA TIENT VISIT, EST [facility], [address], [place], [id number] , [place] tel:[phone] [facility] [place] Widespread pain (chief complaint) Chronic pain syndromePain in left shoulderOther termite technician (current) drug therapyUnilatera l primary osteoarthritis, right knee 4 Angy Eastman. [address], [place], [place], [id number], [place]. tel:[phone] Referring Provider: Rachid Schaeffer, [address] [place] [address] [place], [address] . tel:[phone] OFFICE/OUTPA TIENT VISIT, [facility], [address] [place] [address], [id number] , [place] [phone] [facility] Michela low back pain (chief complaint) Pain in left kneePain in right kneePain in thoracic spineOther intervertebral disc degeneration, lumbar regionLow back pain 8 Geovani Tiffanie. [address] [place] [address], [id number], [place]. tel:[phone] Referring Provider: Rachid Schaeffer, [address] [place] [address] [place], [address] . tel:[phone] OFFICE/OUTPA TIENT VISIT, [facility], [address] [place] [address], [id number] , [place] [phone] [facility] Michela low back pain (chief complaint) Pain in left kneePain in right kneeSpondylosis w/o myelopathy or radiculopathy, lumbar regionLow back pain 8 Geovani Tiffanie. [address] [place], [place], [id number], [place]. tel:[phone] Referring Provider: Rachid Schaeffer, [address] [place] [address] [place], [address] . tel:[phone] OFFICE/OUTPA TIENT VISIT, [facility], [address] [place] [address], [id number] , [place] [phone] [facility] [place] low back pain (chief complaint) Pain in left kneePain in right kneeSpondylosis w/o myelopathy or radiculopathy, lumbar regionOther intervertebral disc degeneration, lumbar regionLow back painPain in thoracic spine 8 Geovani Tiffanie. [address] [place] [address], [id number], [place]. tel:[phone] Referring Provider: Rachid Schaeffer, [address] [place] [address] [place], [address] . tel:[phone] OFFICE/OUTPA TIENT VISIT, EST [facility], [address] [place] [address] [place], [id number] , [place] tel:[phone] [facility] low back pain (chief complaint) Low back painOther intervertebral disc degeneration, lumbar regionPain in left kneePain in right kneeSpondylosis w/o myelopathy or radiculopathy, lumbar regionPain in left hand Fe-0 8 Geovani Tiffanie. [address] [place] [address], [id number], [place]. tel:[phone] Referring Provider: Rachid Schaeffer, [address] [place] [address] [place], [address] . tel:[phone] [facility], [address] [place] [address], [id number] , [place] tel:[phone] [facility] Spondylosis w/o myelopathy or radiculopathy, lumbar region 7 Dang Coty. [address] [place] [address], [id number], [place]. tel:[phone] Referring Provider: Rachid Schaeffer, [address] [place], [place] [address], [address] . tel:[phone] [facility], [address] [place] [address], [id number] , [place] tel:[phone] [facility] Spondylosis w/o myelopathy or radiculopathy, lumbar region 7 Geovani Tiffanie. [address] [place] [address], [id number], [place]. [phone] [facility], [address] [place] [address], [id number] , [place] tel:[phone] [facility] Spondylosis w/o myelopathy or radiculopathy, lumbar region 7 Dang Coty. [address] [place] [address], [id number], [place]. tel:[phone] Referring Provider: Rahcid Schaeffer, [address] [place] [address] [place], [address] . tel:[phone] [facility], [address] [place] [address], [id number] , [place] tel: [phone] [facility] [place] Spondylosis w/o myelopathy or radiculopathy, lumbar region Feb-0 7 Geovani Tiffanie. [address] [place] [address], [id number], [place]. tel:[phone] [facility], [address] [place] [address], [id number] , [place] tel: [phone] [facility] [place] Spondylosis w/o myelopathy or radiculopathy, lumbar region Feb-0 7 Geovani Tiffanie. [address] [place] [address], [id number], [place]. tel:[phone] [facility], [address] [place] [address], [id number] , [place] tel: [phone] [facility] Spondylosis w/o myelopathy or radiculopathy, lumbar region 7 Dang Coty. [address] [place] [address], [id number], [place]. tel:[phone] Referring Provider: Rachid Schaeffer, [address] [place], [place] [address], [address] . tel:[phone] [facility], [address] [place] [address], [id number] , [place] tel: [phone] [facility] Spondylosis w/o myelopathy or radiculopathy, lumbar region 7 Dang Coty. [address] [place] [address], [id number], [place]. tel:[phone] Referring Provider: Rachid Schaeffer, [address] [place], [place] [address], [address] . tel:[phone] OFFICE/OUTPA TIENT VISIT, NEW [facility], [address] [place], [place], [id number] , [place] tel:[phone] [facility] [place] low back pain (chief complaint) Low back painPain in right kneePain in left kneeOther intervertebral disc degeneration, lumbar regionSpondylosi s w/o myelopathy or radiculopathy, lumbar region 7 Geovani Moreno. [address] [place], [place], [id number], [place]. tel:[phone] Referring Provider: Rachid Schaeffer, [address] [facility] [place], [address] . tel:[phone] Family History Family Member Type Diagnosis Age At Onset Father Problem (finding) back problems Payers Payer name Insurance type Covered constitution party ID Authordion puentes(s) Medicare MB [id number] Social History Type Description Quantity Date Captured Comments Alcohol Use Details Unknown Caffeine Use Details Unknown Tobacco Use Status No Information Smoking Status No Information Sex Female Chief Complaint And Reason For Visit No Information Reason For Referral Reason For Referral No Information Plan Of Treatment Date Type Action Status Goal Review Allergy List. Due on due Goal Medication Recon ciliation. Due on due Goal Zoster vaccine ( ). Due on due Goal Unhealthy drug u [...] DYE Bilateral spine, thoracic ordered Referral Ordered: [facility] (related to Pain in left hand) ordered Referral Ordered: [facility] (related to Pain in right hand) ordered Referral Referred To: [facility] [address] [place], [place] [phone] Ordered: Referrals: [facility]. Location: [facility]. Evaluate and treat ordered Future Order: Lab Order COMPLIAN CE DRUG ANALYSIS, URINE, WITH MED REPORT ([id number]), Ordered on: Ordered History Of Present Illness [...] relief). All injections have been completed at [facility]. She states she finds more relief from injections for the R shoulder rather than the L shoulder. Notes the cortisone injections had caused an allergic reaction.Currently managed on Flexeril, Meloxicam, and Hemlock 5-325mg with varying degrees of benefit. She [...] depression.Patient is interested in pain management through [facility]. Willing to pursue BRIAN injections for the [...] is here for a f/u. Has #185 Hemlock remaining - surplus. Medications are effective at [...] is here for a f/u. Has #112 Hemlock remaining - on track. Medications are effective [...] therapyChiropractorMedications:Tylenol-no reliefNSAIDS-no reliefNerve(Gabapentin)-not triedTopicals-no reliefMuscle relaxant-not tried. Huhudn-ealszfad-ob relief, Medical records-[place] Welsh, Functional Status Date Functional Assessmen t No Information Instructions Date Instruction Additional Infor qing Lifestyle education regarding di et Related to Body mass index [BMI] 40.0-44.9, adult Assessments Type Assessment Date No Information Patient Care Teams Name Effective Dates (start - stop) Status Members No Information
--- OUTSIDE RECORDS SUMMARY | 2024-02-01 08:22 | XMS_ITS | Continuity of Care Document ---
Author Organization [facility] Address [address] [place] [address] Care Team Providers Care Professor Of Industrial Technology Name Role Phone GAVI CLOUD Referring Provider [phone] Assessment No assessment recorded. Plan of Treatment Reminders Order Date Submit Date Provider Last Modified By Organization Details Last Modified Time Details Appointments None recorde d. Lab urinaly sis, dipstic k 2023 024 [email or web address], [address], [place], [address], 11:28:37 Referral None recorde d. Procedures None recorde d. Surgeries None recorde d. Imaging CT, urogram 2023 024 [facility] , [facility] [place], [address], 12:00:18 Medication Orders None recorde d. Patient TargetsNo targets recorded. Patient InstructionsNo instructions recorded. Reason for Referral None Reported. Results Created Date Observation Date Name Description Value Unit Range Abnormal Flag Note LastModifiedBy Organization Detail LastModifiedTime 01/15/2001/15/2024 urina lysis , dipst ick BLOOD Trace (5 RBC/uL ) Not Available [facility] [address], [place], [address], 01/15/2024 10:59:40 01/15/20 24 01/15/2024 urina lysis , dipst ick BILIRUBIN Small (0.5 mg/dL) Not Available [facility] [address], [place], [address], 01/15/2024 10:59:40 01/15/20 24 01/15/2024 urina lysis , dipst ick UROBILINOGEN 1.0 mg/dL Not Available [facility] [address], [place], [address], 01/15/2024 10:59:40 01/15/20 24 01/15/2024 urina lysis , dipst ick KETONES Negati ve Not Available [facility] [address], [place], [address], 01/15/2024 10:59:40 01/15/20 24 01/15/2024 urina lysis , dipst ick PROTEIN Negati ve Not Available [facility] [address], [place], [address], 01/15/2024 10:59:40 01/15/20 24 01/15/2024 urina lysis , dipst ick NITRITES Negati ve Not Available [facility] [address], [place], [address], 01/15/2024 10:59:40 01/15/20 24 01/15/2024 urina lysis , dipst ick GLUCOSE Negati ve Not Available [facility] [address], [place], [address], 01/15/2024 10:59:40 01/15/20 24 01/15/2024 urina lysis , dipst ick p.H. 5.5 Not Available [facility] [address], [place], [address], 01/15/2024 10:59:40 01/15/20 24 01/15/2024 urina lysis , dipst ick S.G. (Specific [place]) 1.025 Not Available [facility] [address], [place], [address], 01/15/2024 10:59:40 01/15/20 24 01/15/2024 urina lysis , dipst ick LEUKOCYTES Negati ve Not Available [facility] [address], [place], [address], 01/15/2024 10:59:40 01/23/20 24 01/23/2024 CT, abdom en + pelvi s, w/o contr ast EXAM: CT, ABDOME N + PELVIS , W/O CONTRA ST LOCATI [facility]: [facility] [place] DATE: 2023 INDICA TION: Gross hematu jessica [...] Lev Lindsey MD on 2023 at 15:10 [email or web address] [facility] [address], [place], [address], 01/26/2024 12:08:25 Result Notes None recorded. Problems Name Problem SNOMED Code Status Onset Date Resolution Date Notes Provider Name and Address Organization Details Recorded Time History of malignant neoplasm of bladder 188403878 Active 2011 V10.51 : PERSONAL HX BLADDER CA Not Available [facility] 0 01:54:58 Problem Notes None recorded. Procedures Surgical History Date Name Laterality Status Provider Name and Address Organization Details Recorded Time 01/15/20 24 CystoscopyFemale completed Dong Stewart MD [address] [facility],[address], [place], [address] 01/15/2024 11:19:23 01/15/20 24 Bladder Scan completed Beatriz Richards [facility] 01/15/2024 11:04:32 Imaging Results None recorded. Procedure Notes None recorded. Medical Equipment None Reported. Allergies Allergen ID Allergen Name Allergen Category Reaction Reaction Severity Criticality Documentation Date Start Date Code Code System Note Provider Name and Address Organization Details Recorded Time 998279 cortisone medicatio n Not available Not available Not available 08/26/20192011 2878 RxNorm React ion: Shock /Unco nscio usnes s Not Available [facility] 0 00:42:43 211838 Substance with sulfonami de structure and antibacte rial mechanism of action (substanc e) medicatio n Not available Not available Not available 01/15/2024 15757 [address] [facility] 4 10:53:39 Medications Name Sig [...] Updated DateTime 01/15/2024 162.56 cm 37.8 kg/m2 58002.[address] [facility] 01/15/2024 10:53:23 Social History Question Answer Notes LastModified by Organizat ion Details LastModified Time Tobacco Smoking Status Never Smoker Beatriz Richards null, [facility] 01/15/2024 10:57:07 What Is Your Level Of Alcohol Consumption? None [email or web address] Information not available 01/15/2024 What Was The Date Of Your Most Recent Tobacco Screening? 01/15/2024 [email or web address] Information not available 01/15/2024 Sex: Unknown Functional Status None recorded. Mental Status None recorded. Family History Nothing Reported. Medical History No medical history recorded. Gynecological HistoryNo gynecological history recorded. Obstetrics History GPAL:G 0 P 0 0 0 0 Immunizations Vaccine Type Date Status Provider Name and Address Organization Details Recorded Time Influenza, split virus, quadrivalent, preservative 12/21/2015 completed Betariz benitez, [facility] 01/15/2024 10:53:30 Influenza, high-dose, quadrivalent, PF 12/15/2020 completed Beatriz Richards null, [facility] 01/15/2024 10:53:31 Influenza, high-dose, quadrivalent, PF 12/28/2021 completed Beatriz Richards null, [facility] 01/15/2024 10:53:31 Influenza, high-dose, quadrivalent, PF 01/06/2020 completed Beatriz Richards null, [facility] 01/15/2024 10:53:31 Influenza, high-dose, quadrivalent, PF [facility]21[facility]2023 [facility] 10:53:31 COVID-19, mRNA, LNP-S, PF, 30 mcg/0.3 mL dose 04/29/2020 [facility]/15/[facility]24 10:53:31 COVID-19, mRNA, LNP-S, PF, 30 mcg/0.3 mL dose 05/20/2020 [facility]/15/[facility]24 10:53:31 COVID-19, mRNA, LNP-S, PF, 30 mcg/0.3 mL dose 09/25/2021 [facility]24 10:53:31 COVID-19, mRNA, LNP-S, PF, 30 mcg/0.3 mL dose 01/12/2021 [facility]24 10:53:31 COVID-19, mRNA, LNP-S, bivalent, PF, 30 mcg/0.3 mL dose 02/12/2022 [facility] 10:53:31 COVID-19, mRNA, LNP-S, PF, yokasta-sucrose, 30 mcg/0.3 mL 01/21/2023 completed Beatriz benitez, [facility] 01/15/2024 10:53:31 pneumococcal polysaccharide PPV23 12/19/2006 completed Beatriz benitez, [facility] 01/15/2024 10:53:31 pneumococcal polysaccharide PPV23 01/23/2018 completed Beatriz benitez, [facility] 01/15/2024 10:53:31 Novel [id number]-[id number], all formulations 02/09/2009 completed Beatriz benitez, [facility] 01/15/2024 10:53:31 Pneumococcal conjugate PCV 13 02/19/2012 completed Beatriz benitez, [facility] 01/15/2024 10:53:31 zoster live 02/26/2007 completed Beatriz benitez, [facility] 01/15/2024 10:53:31 Influenza, high-dose, trivalent, PF 12/25/2015 completed Beatriz benitez, [facility] 01/15/2024 10:53:31 Influenza, high-dose, trivalent, PF 01/16/2019 completed Beatirz benitez, [facility] 01/15/2024 10:53:31 Influenza, split virus, trivalent, preservative 11/21/2008 completed Beatriz benitez, [facility] 01/15/2024 10:53:31 Influenza, split virus, trivalent, preservative 12/16/2003 completed Beatriz benitez, [facility] 01/15/2024 10:53:31 Influenza, split virus, trivalent, preservative 12/16/2002 completed eBatriz benitez, [facility] 01/15/2024 10:53:31 Influenza, split virus, trivalent, preservative 12/19/2006 completed Beatriz benitez, [facility] 01/15/2024 10:53:31 Influenza, split virus, trivalent, preservative 12/20/1998 completed Beatriz benitez, [facility] 01/15/2024 10:53:31 Influenza, split virus, trivalent, preservative 12/29/2000 completed Beatriz benitez, [facility] 01/15/2024 10:53:31 Influenza, split virus, trivalent, preservative 01/02/2006 completed Beatriz benitez, [facility] 01/15/2024 10:53:31 Influenza, split virus, trivalent, preservative 01/06/2008 completed Beatriz benitez, [facility] 01/15/2024 10:53:31 Influenza, split virus, trivalent, preservative 02/28/2000 completed Beatriz benitez, [facility] 01/15/2024 10:53:31 Influenza, split virus, trivalent, PF 12/06/2009 completed Beatriz benitez, [facility] 01/15/2024 10:53:31 Influenza, split virus, trivalent, PF 12/19/2011 completed Beatriz benitez, [facility] 01/15/2024 10:53:31 Td (adult), 5 Lf tetanus toxoid, preservative free, adsorbed 07/03/2009 completed Beatriz benitez [facility] 01/15/2024 10:53:31 Influenza, split virus, quadrivalent, PF 11/29/2016 completed Beatriz benitez, [facility] 01/15/2024 10:53:31 Influenza, split virus, quadrivalent, PF 12/30/2014 completed Beatriz benitez, [facility] 01/15/2024 10:53:31 Influenza, split virus, quadrivalent, PF 01/23/[address] [facility] 01/15/2024 10:53:31 Past Encounters Encounter ID Performer Location Encounter Start Date Encounter Closed Date Diagnosis/Indication Diagnosis SNOMED-CT Code Diagnosis ICD10 Code [id number] Dong Stewart MD [facility] [address] [phone] 01/15/2024 10:39:58 01/16/2024 11:03:16 Juan C hematuria [id number] R31.0 Health Concerns Section Related Observation LastModified by Organization Detai ls LastModified Time None Recorded Concern Status LastModified by Organization Details LastModified Time None Recorded Payers Encounter Date Sequence Insurance Name Policy Number Policy Bach Covered Member ID Bach Member ID Guarantor Name 01/15/2024 1 [place] [employer] Griselda Lai [id number] Griselda Lai 01/15/2024 2 [place] [id number] Griselda Lai [id number] Griselda Lai Notes Date Note Type Note Provider Name and Address Organization Details Recorded Time 01/15/2024 text/html 79 YO F referred by Dr. Gavi Cloud MD ([facility]) for evaluation of hematuria w/ history [...] sore at the perineum Dong Stewart MD [address] [facility],[address], [place], [address], [facility] 01/15/2024 11:28:42 OBGyn Episode No OBEpisode recorded.
--- OUTSIDE RECORDS SUMMARY | 2024-02-01 08:22 | XMS_ITS | Clinical Summary ---
Author Organization [employer] [facility] Address [place], [place] [address] Care Team Providers Care Applications Systems Analyst Name Role Phone Physicians, [facility] Provi luis Allergies Active Allergy Reactions Criticality Noted Date Comments Cortisone *Unknown,Palpitations Medium 05/29/2006 Cortisone shots Sulfasalazine *Unknown 06/16/1998 Medications Medication Sig Dispensed Refills Start Date End Date Status tocilizumab (Actemra) 80 mg/4 mL (20 mg/mL) soln injection Active PREDNISONE ORAL 3 mg. Active folic acid/multivit-min/ lutein (CENTRUM SILVER ORAL) Take 1 Tablet by mouth once daily. Active aspirin (ECOTRIN) 81 mg enteric coated tablet Take 1 Tablet by mouth once daily. Active betaxoloL (BETOPTIC) 0.5 % ophthalmic solution INSTILL 1 DROP INTO RIGHT EYE TWICE A DAY 01/02/2023 Active carvediloL (COREG) 12.5 mg tablet 07/31/2023 Active cyclobenzaprine (FLEXERIL) 5 mg tablet TAKE 1 TABLET BY MOUTH 3 TIMES DAILY NEEDED FOR MUSCLE SPASMS 03/28/2023 Active diazePAM (VALIUM) 2 mg tablet prn 01/09/2024 Active dorzolamide (TRUSOPT) 2 % ophthalmic solution INSTILL 1 DROP INTO RIGHT EYE TWICE A DAY Active furosemide (LASIX) 20 mg tablet TAKE 1 TABLET DAILY PLUS 1 ADDITIONAL TABLET NEEDEDFOR EDEMA/SHORTNESS OF BREATH 07/31/2023 Active Gleevec 400 mg tablet Active irbesartan (AVAPRO) 75 mg tablet 07/31/2023 Active omeprazole (PRILOSEC) 40 mg Delayed-Release capsule prn 10/16/2023 Active potassium chloride 10 mEq Extended-Release tablet 07/31/2023 Active rosuvastatin (CRESTOR) 5 mg tablet 07/31/2023 Active sertraline (ZOLOFT) 50 mg tablet TAKE 1.5 TABLETS BY MOUTH DAILY 09/09/2023 Active spironolactone (ALDACTONE) 25 mg tablet 07/31/2023 Active tafluprost, PF, (ZIOPTAN) 0.0015 % ophthalmic solution INSTILL 1 DROP INTO RIGHT EYE NIGHTLY 04/30/2023 Active fluticasone furoate (ARNUITY ELLIPTA) 100 mcg/actuation inhalerIndications :Other emphysema (HC) Inhale 1 Puff by mouth once daily. Rinse and spit after use. Replaces Flovent and Asmanex 30 Each 11 01/23/2024 Active fluticasone furoate (ARNUITY ELLIPTA) 100 mcg/actuation inhalerIndications :Other emphysema (HC) Inhale 1 Puff by mouth once daily. Rinse and spit after use. Replaces Flovent and Asmanex 30 Each 09/10/2023 01/23/2024 Discontinued (Reorder (E-cancel not sent)) Asmanex Twisthaler 220 mcg/ actuation (60) inhaler USE 1 INHALATION BY MOUTH ONCE EVERY DAY AT NIGHTTIME. RINSE MOUTH AND SPIT AFTER USE OR BRUSH TEETH* 01/23/2024 Discontinued (Reorder (E-cancel not sent)) Asmanex Twisthaler 220 mcg/ actuation (60) inhalerIndications :Mild persistent asthma without complication Inhale 2 Puffs by mouth once daily in the evening. 3 Each 3 01/23/2024 01/23/2024 Discontinued (*Med complete/Reg imen complete/Lev el of care change) Active Problems No known active problems Encounters Date Type Department Care Team Description 01/28/2024 Telephone [facility] [place] [address] [place] [phone] Maria Dolores Ventura MD Pharmacist Medication Management 01/23/2024 9:45 AM RFID MANAGER Office Visit [facility] [place] [address] [place] [phone] Maria Dolores Ventura MD Follow Up (patient states they are out of breath a lot. patient wants different prescription for inhaler.) 01/23/2024 Telephone [facility] [place] [address] [place] [phone] Maria Dolores Ventura MD 01/23/2024 Travel 01/22/2024 Telephone [facility] [place] [address] [place] [phone] Maria Dolores Ventura MD 11/28/2023 Telephone [facility] [address] [place] [phone] Keith Tanner PA Appointment 11/18/2023 Telephone [facility] [place] [address] [place] [phone] Maria Dolores Ventura MD Medication Management from Last 3 Months Social History Tobacco Use Types Packs/Day Years Used Date Smoking Tobacco: Never Smokeless Tobacco: Never Tobacco Cessation:Counseling Given: Not Answered Sex and Gender Information Value Date Recorded Sex Assigned at Not on file Gender Identity Not on file Sexual Orientation Not on file Obstetrics History Last Filed Vital Signs Vital Sign Reading Time Taken Comments Blood Pressure 110/64 01/23/2024 9:42 AM RFID MANAGER Pulse 85 01/23/2024 9:42 AM RFID MANAGER Temperature - - Respiratory Rate - - Oxygen Saturation 96% 01/23/2024 9:42 AM RFID MANAGER Inhaled Oxygen Concentration - - Weight 106.6 kg (235 lb) 01/23/2024 9:42 AM RFID MANAGER Height 162.6 cm (5' 4) 01/23/2024 9:42 AM RFID MANAGER Body Mass Index 40.34 01/23/2024 9:42 AM RFID MANAGER Plan of Treatment Health Maintenance Due Date Last Done Comments Pneumococcal series for age 65+ (1 of 2 - PCV) 01/04/1950 Tdap 01/04/1955 Depression screening for age 12+ 1956 Zoster (shingles) series for age 50+ (1 of 2) 01/04/1963 Tetanus booster 1964 DEXA/DXA scan for age 65+ 01/04/2009 Medicare Wellness for age 65+ 01/04/2009 RSV vaccine for adults or (1 - 1-dose 75+ series) 01/04/2019 COVID-19 vaccine series ( season) 2023 01/21/2023, 02/12/2022, 09/25/2021, Additional history exists Influenza for age 65+ 11/09/2023 BMI (ht and wt on same day) for age 18+ 01/22/2025 01/23/2024 Procedures Procedure Name Priority Date/Time Associated Diagnosis Comments MAXIMAL INSPIRATORY PRESSURE Routine 01/23/2024 12:58 PM RFID MANAGER Dyspnea, unspecified type SCAN-PULMONARY FUNCTION TEST 01/23/2024 12:00 AM RFID MANAGER from Last 3 Months Results * SCAN-PULMONARY FUNCTION TEST (01/23/2024 12:00 AM RFID MANAGER) Scanner OTHER from Last 3 Months Care Teams Applications Systems Analyst Relationship Specialty Start Date End Date Physicians, [facility] [address] [place] [address] [address] [place] [address] PCP - General Nurse Practitioner - Family 11/18/23
--- OUTSIDE RECORDS SUMMARY | 2024-02-01 08:22 | XMS_ITS | Continuity of Care Document ---
Author Organization [facility] Address [address] [address] [place] [address] Phone Care Team Providers Care Horse Racing Manager Name Role Phone Unavailable Unavailable Unavailable Allergies, Adverse Reactions, Alerts Substance Reaction Status Criticality cortisone hot flashes and rapi d heart rate Active No Information Sulfa (Sulfonamide Antibiotics) unsure Active No Information Medications Medication Instructions Dosage Effective Dates (start - stop) Status Comments Avapro 75 mg tablet take 1 tablet (75MG) by oral route every day 75 MG - Active Coreg 12.5 mg tablet take [...] Diagnoses Date Provider Providers Copied on Encounter [facility] [place], [address] [address], [place], [id number], [place] tel:[phone] [facility] No Information 4 No Information [facility] [place], [address] [address], [place], [id number], [place] tel:[phone] [facility] DiarrheaEpigastr ic PainNon-alcoholi c Fatty Liver 4 Bebe Jacinto. [address] [place] [address], [id number], [place]. tel:[phone] Referring Provider: Roslyn Schaeffer, [address] [place] [address], [address]. tel:[phone] Offic/outpt [facility] [place], [address] [address], [place], [id number], [place] tel:[phone] [facility] DiarrheaEpigastr ic PainNon-alcoholi c Fatty Liver 3 Bebe Jacinto. [address] [place] [address], [id number], [place]. tel:[phone] Referring Provider: Roslyn Schaeffer, [address] [place] [address], [address]. tel:[phone] Family History Family Member Type Diagnosis Age [...] republican ID Authoriza tion(s) Medicare NGS MB [id number] Social History Type Description Quantity Date Captured [...]
--- OUTSIDE RECORDS SUMMARY | 2024-02-01 08:23 | XMS_ITS | Encounter Summary ---
Author Organization [facility] Address [address] [place] [address] Care Team Providers Care Library Serials Assistant Name Role Phone Marcos Sandoval MD Primary Care Provider Unav ailable Hector Goode MD Unavailable John Cancino MD Unavailable [phone] Marcos Sandoval MD Unavailable UnavailKorin Cash MD Unavailable +- [phone] Korin Lamb MD Primary Care Provider [phone] Carl Farah MD Unavailable [phone] Marcos Sandoval MD Unavailable UnavailKorin Cash MD Unavailable +- [phone] Gavi Cloud MD Unavailable [phone] Jasmin Maradiaga PA-C Unavailable + Itzel Polk APRN SPOT WASHER Unavailable Unavailable Carl Farah MD Unavailable [phone] Jasmin Maradiaga PA-C Primary Care Provid er Gavi Cloud MD Unavailable [phone] Jasmin Maradiaga PA-C Unavailable [phone] Itzel Polk APRN SPOT WASHER Unavailable Unavailable Carl Farah MD Unavailable [phone] Hector Goode MD Unavailable Encounter Details Date Type Department Care Team (Late st Contact Info) Description 12/15/2006 Office Visit-[facility] [place] [address] 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 DATE: 12/15/2006 GRISELDA LAI DATE OF : 1945 AGE: [age] years old Referring Physician: MARCOS SANDOVAL Referring Clinic: [facility] CURRENT DIAGNOSES 1. - Congestive Heart Failure, 428.0 2. 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 - Hypercholesterolemia, 272.0 4. - Abnormal Test-Abnormal Exercise Stress Test, 794.30 5. - Bundle Branch Block-left, 426.3 ALLERGIES hydrocortisone, Hot sob Sulfa MEDICATIONS (prior to changes made today) 1. Gleevec 100mg, 4 p.o. q.d. 2. Zoloft 50 mg, 1 p.o. q.d. 3. Avapro 150 Mg, 1/2 tab q.d. 4. Lipitor 10 Mg, 1 p.o. q.d. 5. Coreg 12.5 Mg, 1 p.o. b.i.d. 6. Lasix 40 Mg, 1/2 tab q.d. 7. Digoxin 0.125 Mg, 1 p.o. q.d. 8. Potassium Chloride 10 Meq, 1 p.o. q.d. 9. Spironolactone 25 Mg, 1 p.o. q.d. 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 She has done well on medical therapy. She has lost a significant amount of weight on a diet plan and is feeling much better andlooks much better. Dr. Sandoval had tried to stop her cholesterol pill with the weight loss to see if she could go without it but her cholesterol jumped from the 70s to approximately 130 for an LDL. She is now back on her cholesterol pill. Her labs were done at Marcela Sandoval's office. Her potassium was 5.0. Cardiacwise she has no undue shortness of breath, no heart failure symptoms, no fluid retention, no dizziness or palpitations. PAST HISTORY Past Medical Illnesses: IBS, depression, sarcoid, sleep apnea, CML, TIA, vertebral art. narrowing (keep SBP up a bit), asthma, CPAP machine, [facility] 02-12, hyperlipidemia Past Cardiac Illnesses: CHF,LBBB, Idiopathic Dilated Cardiomyapathy, arrhythmia when low K+, ?familial cardiomyopathy (son with dilated cmp) Surgical Procedures: R arthroscopic knee surg Cardiology Procedures-Invasive: , cardiac cath (left) Cardiology Procedures-Noninvasive: , , echocardiogram, echocardiogram January 2002, treadmill Thallium, Echo 06-10, BioZ 06-10, echocardiogram May 2003, echocardiogram August 2004, myocardial perfusion imaging (Nuclear) June 2005, CT Angiogram 07/13, echocardiogram January 2006 Cardiac Cath Results: nl. coronaries,EF 50-55% Left Ventricular Ejection Fraction: 25, EF 40-45% by echo 08/12, EF 48% at rest by nuc 06/13, EF 30-35% by echo 01/13 PMHx Echo Results: LA size, Echo 06-10 EF 30-35% FAMILY HISTORY: Father - quadruple bypass; Mother - CVA, hemorrhagic; Son - dilated cardiomyopathy; SOCIAL HISTORY Alcohol Use - denies drinking; Smoking - denies tobacco use; Diet - weight Reduction Diet and caffeine use-rare; Lifestyle - children, drives car and ; Exercise - no regular exercise; Seat Belt Use - never; Occupation - disabled; Sexual Activity - did not discuss sexual history; Residence - lives alone; Place of - [place]; Spouse's Occupation - ; REVIEW OF SYSTEMS GENERAL positive for weight loss of approximately 5 lbs INTEGUMENTARY recent onset hair loss EYES wears eye glasses/contact lenses EARS, NOSE, THROAT, MOUTH denies any hearing loss, epistaxis, hoarseness or difficulty speaking. RESPIRATORY dry cough, same, dyspnea with exertion CARDIOVASCULAR light headedness, chest pain, occ, no change ABDOMINAL denies change in bowel habits, dyspepsia, ulcer disease, hematochezia or melena. GENITOURINARY-FEMALE positive for nocturia, post menopausal without hormonal replacement MUSCULOSKELETAL denies any history of arthritic symptoms or back problems., joint pain, knee NEUROLOGICAL tia in the past, no further neuro events-follows with neurology PSYCHIATRIC denies any history of depression, substance abuse or change in cognitive functions. ENDOCRINE hyperlipidemia HEMATOLOGICAL/IMMUNOLOGIC easy bruising, medication allergies PHYSICAL EXAMINATION VITAL SIGNS: Blood Pressure: 108/60 Sitting, Right arm, large cuff Pulse- 76.00/min. Weight- 218.00 lbs. Height- 66.00 Temperature- .00 CONSTITUTIONAL cooperative, alert and oriented,well developed, well nourished, in no acute distress. SKIN rash on fore arms, see's derm-stable HEAD normocephalic, atraumatic EYES Pupils equal and round, conjunctivae and lids unremarkable, sclera white, no xanthalasma ENT no pallor or cyanosis, dentition good NECK carotid pulses are full and equal bilaterally, JVP normal, no carotid bruit, no thyromegaly CHEST normal symmetry, no tenderness to palpation, normal respiratory excursion, no intercostal retraction, no use of accessory muscles, clear to auscultation and percussion. CARDIAC RRR, gr 1-2 syst murmur at base-early peak, no s3 ABDOMEN abdomen soft, bowel sounds normoactive, no masses, no hepatosplenomegaly, non- tender, no bruits, obese PERIPHERAL PULSES pulses full and equal in all extremities, no bruits auscultated. EXTREMITIES & BACK no deformities, clubbing, cyanosis, erythema or edema observed. There are no spinal abnormalities noted. Normal muscle strength and tone. NEUROLOGICAL no gross motor deficits noted, affect appropriate, oriented to time, person and place. MEDICATIONS UPDATED/STARTED TODAY: Avapro 150 Mg, 1/2 tab q.d., #45 Lipitor 10 Mg, 1 p.o. q.d., 90 Coreg 12.5 Mg, 1 p.o. b.i.d., #270 Lasix 40 Mg, 1/2 tab q.d., #90 Digoxin 0.125 Mg, 1 p.o. q.d., #90 Potassium Chloride 10 Meq, 1 p.o. q.d., #90 Spironolactone 25 Mg, 1 p.o. q.d., #90 MEDICATIONS REFILLED/STOPPED TODAY: Advair 100/50 Take as Directed DIRECTED Physician Order, Lumigen opth 0.03% Take as Directed 0 Treatment Completed, Lipitor 10 mg 1 p.o. q.d. 0 Refill, Alphagan 0.2% Take as Directed DIRECTED Physician Order, Digoxin 0.125 Mg 1 p.o. q.d. #90 Refill, Avapro 150 Mg 1/2 tab q.d. #45 Refill, Potassium Chloride 10 Meq 1 p.o. q.d. #90 Refill, Spironolactone 25 Mg 1 p.o. q.d. #90 Refill, Coreg 12.5 Mg 1 p.o. b.i.d. #270 Refill and Lasix 40 Mg 1/2 tab q.d. #90 Refill IMPRESSIONS/PLAN I have renewed all of her medications. I asked her to get repeat electrolytes and creatinine at sixmonths with Dr. Sandoval, which has been done all along. I am going to see her back in a year, at which time I will order lipids and electrolytes. If Dr. Sandoval has done them at the one year tc we will cancel ours. I will also order an echocardiogram next year. That will be two years from the last check. Her ejection fraction is roughly 35% and has been stable. TODAYS ORDERS 1. Lipid profile/ALT 1 year 2. BMP 1 year 3. 2D, color flow, doppler 1 year 4. F/U with Carl Farah MD 1 year Carl Farah M.D. documented in this encounter Plan of Treatment Upcoming Encounters Date Type Department Care Team (Late st Contact Info) Description 06/14/2024 1:00 PM CDT Office Visit [facility] [address] 3[address] [place] [phone] Hector Goode MD [address] [place] [address] [id number] [place], [place] [id number] documented as of this encounter Visit Diagnoses Not on filedocumented in this encounter Care Teams Library Serials Assistant Relationship Specialty Start Date End Date Marcos Sandoval MD NO INFO AVAILABLE 10/03/22 PCP - General 03/27/99 08/11/19 Korin Lamb MD [address] [address] PCP - General Family Practice 08/12/19 03/15/21 Jasmin Maradiaga PA-C [address] [address] PCP - General Family Medicine 03/16/21 Hector Goode MD [address] [address] Neurology 05/01/17 John Cancino MD [address] [address] Family Medicine - Sports Medicine 07/30/17 Marcos Sandoval MD NO INFO AVAILABLE 10/03/22 Assigned PCP 02/08/18 06/05/19 Korin Lamb MD [address] [address] Assigned PCP 06/06/19 04/29/20 Carl Farah MD [address] [facility] [address] [place] [phone] Assigned Heart and Vascular Provider 12/31/19 12/16/20 Marcos Sandoval MD NO INFO AVAILABLE 10/03/22 Assigned PCP 04/30/20 05/06/20 Korin Lamb MD [address] [place] [address] Assigned PCP 05/07/20 05/28/20 Gavi Cloud MD [address] [place] [address] Assigned PCP 05/29/20 01/06/21 Jasmin Maradiaga PA-C [address] [place] [address] Assigned PCP 01/07/21 09/28/21 Itzel Polk APRN SPOT WASHER NO INFO AVAILABLE 12/27/2021 Assigned Heart and Vascular Provider 12/17/20 02/17/21 Carl Farah MD [address] [facility] [address] [place] [phone] Assigned Heart and Vascular Provider 02/18/21 12/14/21 Gavi Cloud MD [address] [place] [address] Assigned PCP 09/29/21 10/19/21 Jasmin Maradiaga PA-C [address] [place] [address] Assigned PCP 10/20/21 Itzel Polk APRN SPOT WASHER NO INFO AVAILABLE 12/27/2021 Assigned Heart and Vascular Provider 12/15/21 05/17/22 Carl Farah MD [address] [place] [phone] Assigned Heart and Vascular Provider 05/18/22 Hector Goode MD [address] [facility] [id number] [place], [place] [address] Assigned Neuroscience Provider 07/01/23 documented as of this encounter
--- OUTSIDE RECORDS SUMMARY | 2024-02-01 08:23 | XMS_ITS | Encounter Summary ---
Author Organization [place] Address [address] [place] [address] Care Team Providers Care Probation Worker Name Role Phone Marcos Sandoval MD Primary Care Provider Unav ailable Hector Goode MD Unavailable John Cancino MD Unavailable [phone] Marcos Sandoval MD Unavailable UnavailKorin Cash MD Unavailable +- 03 Korin Lamb MD Primary Care Provider [phone] Carl Farah MD Unavailable [phone] Marcos Sandoval MD Unavailable UnavailKorin Cash MD Unavailable +- 03 Gavi Cloud MD Unavailable [phone] Jasmin Maradiaga PA-C Unavailable + Ian Polk APRN PIPE TESTER Unavailable Unavailable Carl Farah MD Unavailable +[phone] Jasmin Maradiaga PA-C Primary Care Provid er Gavi Cloud MD Unavailable [phone] Jasmin Maradiaga PA-C Unavailable + [phone] Ian Polk APRN PIPE TESTER Unavailable Unavailable Carl Farah MD Unavailable +[phone] Hector Goode MD Unavailable Encounter Details Date Type Department Care Team (Late st Contact Info) Description 03/17/2006 Office Visit-[facility] [place] [id number] [facility] [address] [place] [phone] Ian Polk APRN PIPE TESTER NO INFO AVAILABLE 12/27/2021 Social History Tobacco Use Types Packs/Day Years Used Date Smoking Tobacco: Never Alcohol Use Standard Drinks/Week Comments No 0 (1 standard drink = 0.6 oz pur e alcohol) on occ Comments No Sex and Gender Information Value Date Recorded Sex Assigned at Not on file 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 DATE: 03/17/2006 GRISELDA LAI DATE OF : 1945 AGE: [age] years old Referring Physician: MARCOS SANDOVAL Referring Clinic: [facility]. CURRENT DIAGNOSES 1. - Congestive Heart Failure, 428.0 2. 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 - Hypercholesterolemia, 272.0 4. - Abnormal Test-Abnormal Exercise Stress Test, 794.30 5. - Bundle Branch Block-left, 426.3 ALLERGIES Sulfa MEDICATIONS (including any changes made today) 1. Advair 100/50, Take as Directed 2. Zoloft 50 mg, 1 p.o. q.d. 3. Lumigen opth 0.03%, Take as Directed 4. Alphagan 0.2%, Take as Directed 5. Coreg 12.5 Mg, 11/2 p.o. b.i.d. 6. Digoxin 0.125 Mg, 1 p.o. q.d. 7. Avapro 150 Mg, 1/2 tab q.d. 8. Lasix 40 Mg, 1/2 tab b.i.d. 9. Lipitor 20 Mg, 1/2 tab q.d. 10. Potassium Chloride 10 Meq, 1 p.o. q.d. 11. Spironolactone 25 Mg, 1 p.o. q.d. 12. Coumadin 6 mg, Take as Directed 13. Gleevec 100mg, 4 p.o. q.d. CHIEF COMPLAINTS F/u and sob HISTORY OF PRESENT ILLNESS Griselda Lai is a very pleasant 61-year-old female who returns today to followup on her shortnessof breath of uncertain etiology. She has known idiopathic cardiomyopathy. One of her sons was also just diagnosed with this condition, making this likely to be familial or genetic in nature. We have s uggested her other son also undergo a screening at some point. In January, this patient saw Dr. Farah and complained of fatigue with shortness of breath. Her echocardiogram had not significantly changed, in that her ejection fraction was 30 to 35% with a leftventricular dimension of 6.1 cm. No significant valvular disease or pulmonary hypertension. By exam, she appears to be euvolemic, although she has chronic mild ankle edema. Her BNP was normal. BioZ showed a normal thoracic fluid content. Systemic vascular resistance of 1,006, dropping to 825 when standing. For the most part, these numbers were not consistent with fluid overload. Griselda has intermittent exertional shortness of breath (although this does not occur with pool exercises) andalso feels intermittent, fleeting shortness of breath sitting at rest. Her BMI is 43 and she has gained several pounds over the past year. Her 12-lead electrocardiogram shows a QRS of 145 milliseconds, with sinus rhythm and a rate of 60 beats/minute. An oxygen saturation today at rest interestinglyis between 90 and 92%. I increased her Coreg a short time ago to try to optimize her cardiomyopathymedications, which has made no difference in her symptoms. She has a history of asthma but tells methis she feels has been checked into and is optimized. However, her primary care physician has referred her to [facility], which she will be seeing in approximately two to three days. Stress testingin June of 2005 revealed 2 defects, likely related to artifact. She went on for a CT angiogram in July of 2005, confirming only mild plaque in all of her coronary arteries, which supports a normal coronary angiogram in 1995. Lipid profile in May revealed an HDL of 54, total cholesterol 146, triglycerides 103, LDL 71, normal thyroid levels. Her hemoglobin has been normal. She takes Gleevec for chronic CML. She also has a history of sarcoid in the past. Her CT scan of her chest showed no significant lung findings. PAST HISTORY Past Medical Illnesses: IBS, depression, sarcoid, sleep apnea, CML, TIA, vertebral art. narrowing (keep SBP up a bit), asthma, CPAP machine Past Cardiac Illnesses: CHF,LBBB, Idiopathic Dilated Cardiomyapathy, arrhythmia when low K+, ?familial cardiomyopathy (son with dilated cmp) Cardiology Procedures-Invasive: , cardiac cath (left) Cardiology Procedures-Noninvasive: , , echocardiogram, echocardiogram January 2002, treadmill Thallium, Echo 06-10, BioZ 06-10, echocardiogram May 2003, echocardiogram August 2004, myocardial perfusion imaging (Nuclear) June 2005, CT Angiogram 07/13 Cardiac Cath Results: nl. coronaries,EF 50-55% Left Ventricular Ejection Fraction: 25, EF 40-45% by echo 08/12, EF 48% at rest by nuc 06/13 PMHx Echo Results: LA size, Echo 06-10 EF 30-35% REVIEW OF SYSTEMS GENERAL weight loss INTEGUMENTARY denies any change in hair or nails, rashes, or skin lesions. EYES wears eye glasses/contact lenses EARS, NOSE, THROAT, MOUTH epistaxis RESPIRATORY dyspnea, level II-II CARDIOVASCULAR edema, legs, stable ABDOMINAL denies change in bowel habits, dyspepsia, ulcer disease, hematochezia or melena. GENITOURINARY-FEMALE positive for nocturia, post menopausal without hormonal replacement MUSCULOSKELETAL denies any history of arthritic symptoms or back problems., joint pain, knee NEUROLOGICAL tia in the past, no further neuro events-follows with neurology PSYCHIATRIC denies any history of depression, substance abuse or change in cognitive functions. ENDOCRINE fatigue, hyperlipidemia HEMATOLOGICAL/IMMUNOLOGIC easy bruising PHYSICAL EXAMINATION VITAL SIGNS: Blood Pressure: 108/60 Sitting, Left arm, large cuff Pulse- 62.00/min. Weight- 268.00 lbs. Height- 66.00 Temperature- .00 CONSTITUTIONAL cooperative, [...] muscles, clear to auscultation and percussion. CARDIAC regular rhythm, S1 normal, S2 normal, No S3 or S4, Apical impulse not displaced, no murmurs, gallops or rubs detected. ABDOMEN abdomen soft, bowel sounds normoactive, no masses, no hepatosplenomegaly, non- tender, no bruits, obese PERIPHERAL PULSES pulses full and equal in all extremities, no bruits auscultated. EXTREMITIES & BACK 1+ bilat edema-stable, no cyanosis or clubbing NEUROLOGICAL no gross motor deficits noted, affect appropriate, oriented to time, person and place. IMPRESSION/PLAN: 1. Idiopathic cardiomyopathy, with ejection fraction stable. However, her left ventricular dimension is slightly enlarged. Her dyspnea on exertion could be multifactorial. This does not appear to be cardiac in nature. I will leave her cardiac medications at the same doses today and I agree with [facility] workup. I have written a note for her to take to them to suggest perhaps a cardiopulmonary stress test to determine if this is cardiac shortness of breath or deconditioning or pulmonary in nature. She can do pool exercises with no shortness of breath but yet she has shortness of breath reportedly while sitting in front of me and while walking on a flat surface. Therefore, she does not have true class II or III heart failure symptoms currently. This makes her a suboptimal candidate for abiventricular intervention or implantable cardioverter defibrillator therapy at this time. We have had discussions about this today and in the past. She has known sleep apnea, which is treated with amask, which she wears religiously every night. We will gladly await feedback from [facility] regarding any further workup that is performed there. I have given her copies of all of her records from our office to take with her. I have asked her to contact me once her workup is complete. 2. Hyperlipidemia, which is optimized on Lipitor therapy. She will need lipids again in the spring. 3. Asthma, being followed by her primary care physician and soon to be worked up at [facility]. TODAYS ORDERS 1. F/U with Carl Farah MD follow up Ian Polk, N.P. documented in this encounter Plan of Treatment Upcoming Encounters Date Type Department Care Team (Late st Contact Info) Description 06/14/2024 1:00 PM CDT Office Visit [facility] [address] 3rd [place] [phone] Hector Goode MD [address] [place] [address] [id number] [address] documented as of this encounter Visit Diagnoses Not on filedocumented in this encounter Care Teams Probation Worker Relationship Specialty Start Date End Date Marcos Sandoval MD NO INFO AVAILABLE 10/03/22 PCP - General 03/27/99 08/11/19 Korin Lamb MD [address], [address] [address] PCP - General Family Practice 08/12/19 03/15/21 Jasmin Maradiaga PA-C [address] , [address] [address] PCP - General Family Medicine 03/16/21 Hector Goode MD [address] [address] Neurology 05/01/17 John Cancino MD [address] [address] Family Medicine - Sports Medicine 07/30/17 Marcos Sandoval MD NO INFO AVAILABLE 10/03/22 Assigned PCP 02/08/18 06/05/19 Korin Lamb MD [address] , [address] [address] Assigned PCP 06/06/19 04/29/20 Carl Farah MD [address] [facility] [address] [place] [phone] Assigned Heart and Vascular Provider 12/31/19 12/16/20 Marcos Sandoval MD NO INFO AVAILABLE 10/03/22 Assigned PCP 04/30/20 05/06/20 Korin Lamb MD [address] , [address] [address] Assigned PCP 05/07/20 05/28/20 Gavi Cloud MD [address] [place] [address] Assigned PCP 05/29/20 01/06/21 Jasmin Maradiaga PA-C [address], [facility] [address] [place] [address] Assigned PCP 01/07/21 09/28/21 Ian Polk APRN PIPE TESTER NO INFO AVAILABLE 12/27/2021 Assigned Heart and Vascular Provider 12/17/20 02/17/21 Carl Farah MD [address] [place] [phone] Assigned Heart and Vascular Provider 02/18/21 12/14/21 Gavi Cloud MD [address] [place] [address] Assigned PCP 09/29/21 10/19/21 Jasmin Maradiaga PA-C [address], [facility] [address] [place] [address] Assigned PCP 10/20/21 Ian Polk APRN PIPE TESTER NO INFO AVAILABLE 12/27/2021 Assigned Heart and Vascular Provider 12/15/21 05/17/22 Carl Farah MD [address] [place] [phone] Assigned Heart and Vascular Provider 05/18/22 Hector Goode MD [address] [facility], [place] [address] Assigned Neuroscience Provider 07/01/23 documented as of this encounter
--- OUTSIDE RECORDS SUMMARY | 2024-02-01 08:23 | XMS_ITS | Encounter Summary ---
Author Organization [place] Address [address] [place] [address] Care Team Providers Care Staff Climate Scientist Name Role Phone Marcos Sandoval MD Primary Care Provider Unav ailable Hector Goode MD Unavailable John Cancino MD Unavailable [phone] Marcos Sandoval MD Unavailable UnavailKorin Cash MD Unavailable +- 03 Korin Lamb MD Primary Care Provider [phone] Carl Farah MD Unavailable [phone] Marcos Sandoval MD Unavailable UnavailKorin Cash MD Unavailable +- 03 Gavi Cloud MD Unavailable [phone] Jasmin Maradiaga PA-C Unavailable + Ian Polk APRN RISK MANAGEMENT PROFESSIONAL Unavailable Unavailable Carl Farah MD Unavailable [phone] Jasmin Maradiaga PA-C Primary Care Provid er Gavi Cloud MD Unavailable +[phone] Jasmin Maradiaga PA-C Unavailable + [phone] Ian Polk APRN RISK MANAGEMENT PROFESSIONAL Unavailable Unavailable Carl Farah MD Unavailable [phone] Hector Goode MD Unavailable Encounter Details Date Type Department Care Team (Late st Contact Info) Description 09/08/2007 Office Visit-[facility] [address] [place] [phone] Ian Polk APRN RISK MANAGEMENT PROFESSIONAL NO INFO AVAILABLE 12/27/2021 Social History Tobacco Use Types Packs/Day Years Used Date Smoking Tobacco: Never Alcohol Use Standard Drinks/Week Comments No 0 (1 standard drink = 0.6 oz pur e alcohol) Comments No Sex and Gender Information Value Date Recorded Sex Assigned at Not on file 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 DATE: 09/08/2007 GRISELDA LAI DATE OF : 1945 AGE: [age] years old Referring Physician: MARCOS SANDOVAL Referring Clinic: [facility] CURRENT DIAGNOSES 1. - Congestive Heart Failure, 428.0 2. 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 - Hypercholesterolemia, 272.0 4. - Abnormal Test-Abnormal Exercise Stress Test, 794.30 5. - Bundle Branch Block-left, 426.3 ALLERGIES hydrocortisone, Hot sob Sulfa MEDICATIONS (prior to changes made today) 1. Gleevec 100mg, 4 p.o. q.d. 2. Zoloft 50 mg, 1 p.o. q.d. 3. Spironolactone 25 mg, 1 p.o. qAM 4. Lasix 40 Mg, 1/2 tablet daily; with extra 1/2 tab prn weight up 2-3 pounds in a day or edema increase 5. Coreg 12.5 Mg, 1 tablet by mouth twice each day 6. Avapro 150 mg, 1/2 tab qAM 7. Digoxin 0.125 mg, 1 p.o. qAM 8. Lipitor 10 mg, 1 p.o. qAM 9. Potassium Chloride 10 mEq, 1 p.o. qAM CHIEF COMPLAINTS F/u visit and review echo HISTORY OF PRESENT ILLNESS Griselda Lai is a delightful 62-year-old woman with idiopathic dilated cardiomyopathy. Her son also has cardiomyopathy. She was having shortness of breath with fatigue and went to [facility] for afull work-up in 2005 and was discovered in their opinion to be deconditioned. She promptly lost several pounds and began exercising. Over the past year she has tailored back her exercise program, hasgained 20 of her 50 pounds back. She called me recently with complaints of fatigue and feeling slightly more short of breath and activity intolerant. She saw Dr. Dixon who increased her Lasix to 40mg a day and decreased her Coreg to 6.25mg daily. She said this helped for a couple of days but then her symptoms returned and have been present since that time. She has no orthopnea or PND. She wears a CPAP mask routinely. Dr. Dixon ordered an echocardiogram, which I have shared with the patient today. Thankfully her ejection fraction has remained stable at 45-50%. Her LV dimension actuallyhas improved from 6.2cm back in January to 4.85cm. Her RV systolic pressure is normal. She has no significant valvular leakage. The right heart appears normal as well. Her blood pressure on less Coreg is slightly higher at 130/60. Her heart rate is in the 60s, at home on her machine in the 70s. She lost 3 pounds with the increased furosemide and as I noted does notsee a substantial change in this. She does plan to resume Curves and after we talked today does feel some of this is similar to symptoms she had prior to her [facility] visit where she was deem to be deconditioned. She has no chest pain, orthopnea, PND, other evidence of heart failure. Overall sheseems to be quite stable. Her edema to me is her typical trace to 1+, which has been chronic for quite some time, likely in part due to obesity and likely venous insufficiency. PAST HISTORY Past Medical Illnesses: IBS, depression, sarcoid, sleep apnea, CML, TIA, vertebral art. narrowing (keep SBP up a bit), asthma, CPAP machine, MRA/MRI of head at [facility]-bleed coumadin stopped 02-12, hyperlipidemia Past Cardiac Illnesses: CHF,LBBB, Idiopathic Dilated Cardiomyapathy, arrhythmia when low K+, ?familial cardiomyopathy (son with dilated cmp) Surgeries/Procedures - General: R arthroscopic knee surg Cardiology Procedures-Invasive: , cardiac cath (left) Cardiology Procedures-Noninvasive: echocardiogram August 2004, myocardial perfusion imaging (Nuclear) June 2005, CT Angiogram 07/13, echocardiogram January 2006, echocardiogram Jan 2007, echocardiogram September 2007 Cardiac Cath Results: 1995 normal coronaries, EF 50-55% PMHx Echo Results: 01/14 LV function has improved. Left Ventricular Ejection Fraction: EF 40-45% by echo 08/12, EF 48% at rest by nuc 06/13, EF 30-35% by echo 01/13, EF 40-45% via echo 01/14 Nuclear Results: 06/25/05 A moderate size, reversible inferior and inferoseptal defect which may be a result of myocardial ischemia CT Results: 07/22/05 Mild coronary artery disease FAMILY HISTORY: Father - quadruple bypass; Mother - CVA, hemorrhagic; Son - dilated cardiomyopathy; CARDIAC RISK FACTORS Tobacco Abuse: negative; Family History of Heart Disease: positive; Hyperlipidemia: positive, controlled; Hypertension: positive, controlled by medication; Diabetes Mellitus: negative; Prior History of Heart Disease: negative; Obesity:BMI30 (Obesity); Sedentary Life Style:positive; Age:positive; Menopausal:biological menopause, no hormonal replacement SOCIAL HISTORY Alcohol Use - denies drinking; Smoking - denies tobacco use; Diet - weight Reduction Diet and caffeine use-rare; Lifestyle - children, drives car and ; Exercise - no regular exercise; Seat Belt Use - never; Occupation - disabled; Sexual Activity - did not discuss sexual history; Residence - lives alone; Place of - [place]; Spouse's Occupation - ; REVIEW OF SYSTEMS GENERAL weight loss, 3lbs since last visit INTEGUMENTARY recent onset hair loss EYES wears eye glasses/contact lenses EARS, NOSE, THROAT, MOUTH denies any hearing loss, epistaxis, hoarseness or difficulty speaking. RESPIRATORY dyspnea at rest, dyspnea with exertion CARDIOVASCULAR edema of the legs, stable ABDOMINAL denies change in bowel [...] allergies PHYSICAL EXAMINATION VITAL SIGNS: Blood Pressure: 130/60 Sitting, Right arm, large cuff Pulse- 66.00/min. Weight- 233.80 lbs. Height- 66.00 Temperature- .00 CONSTITUTIONAL cooperative, [...] muscles, clear to auscultation and percussion. CARDIAC distant heart sounds, apical impulse not displaced, no murmurs, gallops or rubs detected ABDOMEN abdomen soft, bowel sounds normoactive, no masses, no hepatosplenomegaly, non- tender, no bruits, obese PERIPHERAL PULSES pulses full and equal in all extremities, no bruits auscultated. EXTREMITIES & BACK ankle edema, trace to one plus PSYCHIATRIC oriented to time, place, and person NEUROLOGICAL no gross motor deficits noted, affect appropriate, oriented to time, person and place. MEDICATIONS UPDATED/STARTED TODAY: Spironolactone 25 mg, 1 p.o. qAM, 0 Lasix 40 Mg, 1/2 tablet daily; with extra 1/2 tab prn weight up 2-3 pounds in a day or edema increase, #90 Coreg 12.5 Mg, 1 tablet by mouth twice each day, #270 Avapro 150 mg, 1/2 tab qAM, 0 Digoxin 0.125 mg, 1 p.o. qAM, 0 Lipitor 10 mg, 1 p.o. qAM, 0 Potassium Chloride 10 mEq, 1 p.o. qAM, 0 MEDICATIONS REFILLED/STOPPED TODAY: Lasix 40 Mg 1 tablet by mouth each morning (Weigh yourself each morning) #90 Refill and Coreg 12.5 Mg 1/2 tablet by mouth twice each day #270 Refill IMPRESSIONS/PLAN 1. Idiopathic dilated cardiomyopathy. She is having no overt evidence of heart failure. I have reviewed her echo, which seems stable. In fact, her LV dimension has improved. I will increase her Coregback to 12.5mg a day as she has had good improvement in her LV size on this medication and her LV function is stable. I have told her to keep her furosemide at 20mg a day and up dose to 40 if she hasa weight gain of 2-3 pounds in a day or notices increased edema particularly in the hot humid weather. I will also send her for a CBC, thyroid and basic metabolic profile today to rule out any metabolic problem to the cause of her fatigue. I have encouraged her to get back to Curves, continue to lose weight, wear her CPAP mask and we will plan on seeing her this fall when she has cholesterol testing scheduled, a visit with Dr. Farah.I will call her with her blood work. I will also see if our lab is able to draw a BNP off of the blood work they petty today. TODAYS ORDERS 1. BMP Today 2. CBC w/out Diff Today 3. TSH Today Ian Polk, N.P. documented in this encounter Plan of Treatment Upcoming Encounters Date Type Department Care Team (Late st Contact Info) Description 06/14/2024 1:00 PM CDT Office Visit [facility]rology [facility] [address] [place] [phone] Hector Goode MD [address] [place] [id number] documented as of this encounter Visit Diagnoses Not on filedocumented in this encounter Care Teams Staff Climate Scientist Relationship Specialty Start Date End Date Marcos Sandoval MD NO INFO AVAILABLE 10/03/22 PCP - General 03/27/99 08/11/19 Korin Lamb MD [address] [place] [address] PCP - General Family Practice 08/12/19 03/15/21 Jasmin Maradiaga PA-C [address] [address] PCP - General Family Medicine 03/16/21 Hector Goode MD [address] [place] [address] Neurology 05/01/17 John Cancino MD [address] [facility] [place] [id number] [address] Family Medicine - Sports Medicine 07/30/17 Marcos Sandoval MD NO INFO AVAILABLE 10/03/22 Assigned PCP 02/08/18 06/05/19 Korin Lamb MD [address] , [address] [address] Assigned PCP 06/06/19 04/29/20 Carl Farah MD [address] [facility] [address] [place] [phone] Assigned Heart and Vascular Provider 12/31/19 12/16/20 Marcos Sandoval MD NO INFO AVAILABLE 10/03/22 Assigned PCP 04/30/20 05/06/20 Korin Lamb MD [address] , [address] [place] [address] Assigned PCP 05/07/20 05/28/20 Gavi Cloud MD [address] [place] [address] Assigned PCP 05/29/20 01/06/21 Jasmin Maradiaga PA-C [address] , [address] [place] [address] Assigned PCP 01/07/21 09/28/21 Ian Polk APRN RISK MANAGEMENT PROFESSIONAL NO INFO AVAILABLE 12/27/2021 Assigned Heart and Vascular Provider 12/17/20 02/17/21 Carl Farah MD [address] [place] [phone] Assigned Heart and Vascular Provider 02/18/21 12/14/21 Gavi Cloud MD [address] [place] [address] Assigned PCP 09/29/21 10/19/21 Jasmin Maradiaga PA-C [address], [address] [place] [address] Assigned PCP 10/20/21 Ian Polk APRN RISK MANAGEMENT PROFESSIONAL NO INFO AVAILABLE 12/27/2021 Assigned Heart and Vascular Provider 12/15/21 05/17/22 Carl Farah MD [address] [place] [phone] Assigned Heart and Vascular Provider 05/18/22 Hector Goode MD [address] [facility] [id number] [address] Assigned Neuroscience Provider 07/01/23 documented as of this encounter
--- OUTSIDE RECORDS SUMMARY | 2024-02-01 08:23 | XMS_ITS | Encounter Summary ---
Author Organization [place] Address [address] [place] [address] Care Team Providers Care Sawmill Relief Worker Name Role Phone Roslyn Sandoval MD Primary Care Provider Unav ailable Hector Goode MD Unavailable John Cancino MD Unavailable [phone] Roslyn Sandoval MD Unavailable UnavailKorin Cash MD Unavailable +- [phone] Korin Lamb MD Primary Care Provider [phone] Carl Farah MD Unavailable [phone] Roslyn Sandoval MD Unavailable UnavailKorin Cash MD Unavailable +- 03 Gavi Cloud MD Unavailable [phone] Jasmin Maradiaga PA-C Unavailable + Itzel Polk APRN STRIPER Unavailable Unavailable Carl Farah MD Unavailable [phone] Jasmin Maradiaga PA-C Primary Care Provid er Gavi Cloud MD Unavailable +[phone] Jasmin Maradiaga PA-C Unavailable + [phone] Itzel Polk APRN STRIPER Unavailable Unavailable Carl Farah MD Unavailable [phone] Hector Goode MD Unavailable Reason for Visit * Reason Comments Medication Refill Encounter Details Date Type Department Care Team (Late st Contact Info) Description 06/04/2019 Refill [facility] [address] [place] [address] Roslyn Sandoval MD NO INFO AVAILABLE 10/03/22 Medication Refill Social History Tobacco Use Types Packs/Day Years Used Date Smoking Tobacco: Never Smokeless Tobacco: Never Alcohol Use Standard Drinks/Week Comments No 0 (1 standard drink = 0.6 oz pur e alcohol) Overall Financial Resource Strain (CARDIA) Answe r Date Recorded How hard is it for you to pa y for the very basics like food, housing, medical care, and heating? Not hard at all 04/29/2019 PHQ-2 Answer Date Recorded PHQ-2 Score 0 03/17/2018 Hunger Vital Sign Answer Date Recorded Within [...] things needed for daily living? 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 Please call * Telephone Encounter - Hailey Anderson CMA - 06/04/2019 12:29 PM CDT Spoke to patient and she states that Dr. Sandoval was going to let it be up to her if she wanted to taper off of this medication to where she is completely done taking it or if she wanted to continue on the 30 mg dosing. She does want to continue on this dosing and said that it is helping her a lot with everything that she has going on. Routing to Dr. Sandoval for review, is this ok? If you are wanting her to stay on it she would like a 90 day with however many refills you authorize sent to the mail order. Also, she states that she has been having some dizziness and is wondering if this is because of the dose change or if it may have something more to do with her heart medications? * Telephone Encounter - Korin Lamb MD - 06/04/2019 12:27 PM CDT Reviewed last visit and plan/was to go down to 30 mgm santamaria 2 months and then go off??? * Telephone Encounter - Hailey Anderson CMA - 06/04/2019 10:07 AM CDT Patient called in and stated that her duloxetine medication was sent to the [facility] pharmacy but she wants to start using the mail order now and is wondering if this could be sent to the mail order now instead. Routing to construction coordinator provider Dr. Lamb for review, are you able to resend this in for the patient? documented in this encounter Plan of Treatment Upcoming Encounters Date Type Department Care Team (Late st Contact Info) Description 06/14/2024 1:00 PM CDT Office Visit [facility] Neurology [address] 3rd [place] [address] Hector Goode MD [address] [address] documented as of this encounter Visit Diagnoses Diagnosis Chronic pain syndrome documented in this encounter Care Teams Sawmill Relief Worker Relationship Specialty Start Date End Date Roslyn Sandoval MD NO INFO AVAILABLE 10/03/22 PCP - General 03/27/99 08/11/19 Korin Lamb MD [address], [address] [address] PCP - General Family Practice 08/12/19 03/15/21 Jasmin Maradiaga PA-C [address], [address] [address] PCP - General Family Medicine 03/16/21 Hector Goode MD [address] [place] [address] Neurology 05/01/17 John Cancino MD [address] [place] [address]10305 Family Medicine - Sports Medicine 07/30/17 Roslyn Sandoval MD NO INFO AVAILABLE 10/03/22 Assigned PCP 02/08/18 06/05/19 Korin Lamb MD [address], [address] [address] Assigned PCP 06/06/19 04/29/20 Carl Farah MD [address] [place] [phone] Assigned Heart and Vascular Provider 12/31/19 12/16/20 Roslyn Sandoval MD NO INFO AVAILABLE 10/03/22 Assigned PCP 04/30/20 05/06/20 Korin Lamb MD [address], [address] [place] [address] Assigned PCP 05/07/20 05/28/20 Gavi Cloud MD [address] [place] [address] Assigned PCP 05/29/20 01/06/21 Jasmin Maradiaga PA-C [address], [address] [place] [address] Assigned PCP 01/07/21 09/28/21 Itzel Polk APRN CNP NO INFO AVAILABLE 12/27/2021 Assigned Heart and Vascular Provider 12/17/20 02/17/21 Carl Farah MD [address] [place] [address] Assigned Heart and Vascular Provider 02/18/21 12/14/21 Gavi Cloud MD [address] [place] [address] Assigned PCP 09/29/21 10/19/21 Jasmin Maradiaga PA-C [address], [address] [place] [address] Assigned PCP 10/20/21 Itzel Polk APRN STRIPER NO INFO AVAILABLE 12/27/2021 Assigned Heart and Vascular Provider 12/15/21 05/17/22 Carl Farah MD [address] [facility] [address] [place] [phone] Assigned Heart and Vascular Provider 05/18/22 Hector Goode MD [address] [facility] [id number] [address] Assigned Neuroscience Provider 07/01/23 documented as of this encounter
--- OUTSIDE RECORDS SUMMARY | 2024-02-01 08:23 | XMS_ITS | Encounter Summary ---
Author Organization [place] Address [facility] [place] [address] Care Team Providers Care Superintendent Generating Plant Name Role Phone Hector Goode MD Unavailable John Cancino MD Unavailable [phone] Jasmin Maradiaga PA-C Primary Care Provid er Jasmin Maradiaga PA-C Unavailable + [phone] Carl Farah MD Unavailable [phone] Hector Goode MD Unavailable Encounter Details Date Type Department Care Team (Late st Contact Info) Description 10/16/2022 [facility] Heart Clinic [address] [place] [address] Carl Farah MD [address] [facility] [address] [place] [address] Social History Tobacco Use Types Packs/Day Years [...] PHQ-2 Answer Date Recorded PHQ-2 Score 0 05/14/2022 Hunger Vital Sign Answer Date Recorded Within [...] on file 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 No / Unsure 10/15/2022 9:11 AM CDT documented as of this encounter Miscellaneous Notes * Telephone Encounter - Arelis Calderon MA - 10/16/2022 3:42 PM CDT [facility] Call Center Phone Message May a detailed message be left on voicemail: yes Reason for Call: Other: Please make medications are sent [facility] versus picking up in person Action Taken: Message routed to: Other: Cardiology Travel Screening: Not Applicable Thank you! [facility] documented in this encounter Plan of Treatment Upcoming Encounters Date Type Department Care Team (Late st Contact Info) Description 06/14/2024 1:00 PM CDT Office Visit [facility] Neurology Clinic [address] 3rd [place] [address] Hector Goode MD [address] [place] [address] [id number], [place] [address] documented as of this encounter Visit Diagnoses Not on filedocumented in this encounter Care Teams Superintendent Generating Plant Relationship Specialty Start Date End Date Jasmin Maradiaga PA-C [address] [address] PCP - General Family Medicine 03/16/21 Hector Goode MD [address] [place] [address] Neurology 05/01/17 John Cancino MD [address] [place] [address] Family Medicine - Sports Medicine 07/30/17 Jasmin Maradiaga PA-C [address] [address] Assigned PCP 10/20/21 Carl Farah MD [address] [facility] [address] [place] [address] Assigned Heart and Vascular Provider 05/18/22 Hector Goode MD [address] [place] [address] Assigned Neuroscience Provider 07/01/23 documented as of this encounter
--- OUTSIDE RECORDS SUMMARY | 2024-02-01 08:23 | XMS_ITS | Encounter Summary ---
Author Organization [place] Address [address] [place] [address] Care Team Providers Care Collator Operator Name Role Phone Marcos Sandoval MD Primary Care Provider Unav ailable Hector Goode MD Unavailable John Cancino MD Unavailable [phone] Marcos Sandoval MD Unavailable UnavailKorin Cash MD Unavailable +- 03 Korin Lamb MD Primary Care Provider [phone] Carl Farah MD Unavailable [phone] Marcos Sandoval MD Unavailable UnavailKorin Cash MD Unavailable +- 03 Gavi Cloud MD Unavailable [phone] Jasmin Maradiaga PA-C Unavailable + Itzel Polk APRN DIFFERENTIAL SPECIALIST Unavailable Unavailable Carl Farah MD Unavailable [phone] Jasmin Maradiaga PA-C Primary Care Provid er Gavi Cloud MD Unavailable +[phone] Jasmin Maradiaga PA-C Unavailable + [phone] Itzel Polk APRN DIFFERENTIAL SPECIALIST Unavailable Unavailable Carl Farah MD Unavailable [phone] Hector Goode MD Unavailable Encounter Details Date Type Department Care Team (Late st Contact Info) Description 08/27/2007 Office Visit-[facility] [place] [address] [facility] [address] [place] [phone] Suleman Dixon MD [facility] [address] [facility] [address] [place] [address] Social History Tobacco Use Types Packs/Day Years Used Date Smoking Tobacco: Never Alcohol Use Standard Drinks/Week Comments No 0 (1 standard drink = 0.6 oz pur e alcohol) Comments No Sex and Gender Information Value Date Recorded Sex Assigned at Not on file 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 DATE: 08/27/2007 GRISELDA LAI DATE OF : 1945 AGE: [age] years old Referring Physician: MARCOS SANDOVAL Referring Clinic: [facility] CURRENT DIAGNOSES 1. - Congestive [...] Lipitor 10 Mg, 1 p.o. q.d. 5. Digoxin 0.125 Mg, 1 p.o. q.d. 6. Potassium Chloride 10 Meq, 1 p.o. q.d. 7. Spironolactone 25 Mg, 1 p.o. q.d. 8. Lasix 40 Mg, 1 tablet by mouth each morning (Weigh yourself each morning) 9. Coreg 12.5 Mg, 1/2 tablet by mouth twice each day CHIEF COMPLAINTS Fatigue and low bp HISTORY OF PRESENT ILLNESS Ms. Lai, a 62-year-old woman, was evaluated for dyspnea and fatigue. Ms. Lai has required chronic treatment for heart failure due to a dilated cardiomyopathy. Her echocardiogram two years ago demonstrated diffuse left ventricular hypokinesis. The ejection fractionwas reduced to 35%. CT coronary angiogram showed only mild coronary artery disease. In January 2007, an echocardiogram showed an improvement in her global left ventricular systolic function. The left ventricle was mildly dilated. The estimated ejection fraction was 45% to 50%. Her heart failure has remained well compensated on medical therapy until recently. Over the past week, Ms. Lai has observed a steady increase in her weight. During this time, she has developed marked easy fatigability. After awakening from sleep in the morning hours, she often sits in a chair for several hours due to generalized weakness and fatigue. She is experiencing dyspnea provoked by mild exertion. She is unable to walk for even one block outdoors before stopping due to her dyspnea or fatigue. She is not s leeping well at night, although she specifically denies episodes of orthopnea or paroxysmal nocturnal dyspnea. She has observed the accumulation of peripheral edema, which may have worsened slightly in the past several weeks. She is not suffering from further chest pain either at rest or with exertion. She did not report any episodes of dizziness or syncope, although she has recorded a low blood pressure at home. On exam, she presents as an obese, tired, and chronically ill middle aged woman. Although she appears tired at rest, she does not seem otherwise in distress. She is able to walk comfortably in the office. The blood pressure is 120/68. The pulse rate is 80. The respiratory rate is 16. She stands 66 inches tall. She weighs 236 pounds. The breath sounds are diminished in the lung bases. However, no pulmonary rales, wheezes, or rhonchi are heard. The inspiratory effort at rest appears unlabored. The cardiac impulse is not palpable. The first and second heart sounds are distant at the apex. No murmurs, rubs, or gallops are heard. The rhythm is regular. The rate is normal. The carotid upstrokes are normal. No carotid bruits are heard. The venous column in her neck does not appear distended. Thebrachial, radial, and femoral pulses are palpable. The pedal pulses are not palpable bilaterally. There is 1 to 2+ peripheral edema present in both lower extremities at the ankles. She does appear alert and oriented. She displays normal judgment and insight. I did review the echocardiogram from January 2007. The left ventricle was mildly enlarged. Mild diffuse left ventricular hypokinesis was observed. Abnormal septal motion attributable to her left bundle branch block was also seen. The ejection fraction was approximately 45%. No pericardial effusionwas seen. PAST HISTORY Past Medical Illnesses: IBS, depression, sarcoid, sleep apnea, CML, TIA, vertebral art. narrowing (keep SBP up a bit), asthma, CPAP machine, [facility], hyperlipidemia Past Cardiac Illnesses: CHF,LBBB, Idiopathic Dilated Cardiomyapathy, arrhythmia when low K+, ?familial cardiomyopathy (son with dilated cmp) Surgeries/Procedures - General: R arthroscopic knee surg Cardiology Procedures-Invasive: , cardiac cath (left) Cardiology Procedures-Noninvasive: Echo 06-10, BioZ 06-10, echocardiogram August 2004, myocardial perfusion imaging (Nuclear) June 2005, CT Angiogram 07/13, echocardiogram January 2006, echocardiogram Jan 2007 Cardiac Cath Results: nl. coronaries,EF 50-55% PMHx Echo Results: LA size, Echo 06-10 EF 30-35% Left Ventricular Ejection Fraction: 25, EF 40-45% by echo 08/12, EF 48% at rest by nuc 06/13, EF 30-35% by echo 01/13, EF 40-45% via echo01/14 FAMILY HISTORY: Father - quadruple bypass; Mother [...] Residence - lives alone; Place of - [place]; Spouse's Occupation - ; REVIEW OF SYSTEMS GENERAL weight gain, 18 lbs INTEGUMENTARY recent onset hair loss EYES wears eye glasses/contact lenses EARS, NOSE, THROAT, MOUTH denies any hearing loss, epistaxis, hoarseness or difficulty speaking. RESPIRATORY dyspnea at rest, dyspnea with exertion CARDIOVASCULAR edema of the legs ABDOMINAL denies change in bowel habits, dyspepsia, [...] allergies PHYSICAL EXAMINATION VITAL SIGNS: Blood Pressure: 120/68 Sitting, Right arm, large cuff Pulse- 80.00/min. Weight- 236.00 lbs. Height- 66.00 Temperature- .00 CONSTITUTIONAL cooperative, [...] no bruits auscultated. EXTREMITIES & BACK ankle edema PSYCHIATRIC oriented to time, place, and person NEUROLOGICAL no gross motor deficits noted, affect appropriate, oriented to time, person and place. MEDICATIONS UPDATED/STARTED TODAY: Lasix 40 Mg, 1 tablet by mouth each morning (Weigh yourself each morning), #90 Coreg 12.5 Mg, 1/2 tablet by mouth twice each day, #270 MEDICATIONS REFILLED/STOPPED TODAY: Coreg 12.5 Mg 1 p.o. b.i.d. #270 Refill and Lasix 40 Mg 1/2 tab q.d. #90 Refill IMPRESSION/PLAN In summary, Ms. Lai is evaluated for the following cardiovascular conditions: 1. Heart failure. 2. Dilated cardiomyopathy. 3. Coronary artery disease. 4. Hypercholesterolemia. 5. Left bundle branch block. Ms. Lai has recently experienced generalized weakness and easy fatigability. Her symptoms may be due to worsening of her heart failure. An increase in her weight has occurred recently. She also is experiencing exertional dyspnea. Peripheral edema is observed on her exam today. For treatment of her progressive heart failure, I asked Ms. Lai to increase her dose of furosemide to 40 mg each morning and to temporarily decrease her carvedilol to 6.25 mg to be taken twice each day. She will continue her other cardiovascular medications including digoxin, Avapro, atorvastatin, and potassium supplement. I have asked Ms. Lai to weigh herself daily to assess her response to furosemide. A follow up echocardiogram has been ordered to reassess her ventricular function. I will review theresults of the echocardiogram with her as soon as they are available. A follow up clinic visit has been scheduled in two weeks to assess her response to these changes inher medical regimen. I have appreciated the opportunity to participate in the care of your patient, Ms. Lai. TODAYS ORDERS 1. 2D, color flow, doppler 2 weeks 2. F/U with Xiao Emmanuel MSN, DIFFERENTIAL SPECIALIST 2-4 weeks Suleman Dixon M.D. documented in this encounter Plan of Treatment Upcoming Encounters Date Type Department Care Team (Late st Contact Info) Description 06/14/2024 1:00 PM CDT Office Visit [facility] Neurology Clinic [address] 3rd [place] [phone] Hector Goode MD [address] [place] [address] [id number] [place] [address] documented as of this encounter Visit Diagnoses Not on filedocumented in this encounter Care Teams Collator Operator Relationship Specialty Start Date End Date Marcos Sandoval MD NO INFO AVAILABLE 10/03/22 PCP - General 03/27/99 08/11/19 Korin Lamb MD [address], [facility] [address] [place] [address] PCP - General Family Practice 08/12/19 03/15/21 Jasmin Maradiaga PA-C [address], [address] [place] [address] PCP - General Family Medicine 03/16/21 Hector Goode MD [address] [place] [address] [address] Neurology 05/01/17 John Cancino MD [address] [address] Family Medicine - Sports Medicine 07/30/17 Marcos Sandoval MD NO INFO AVAILABLE 10/03/22 Assigned PCP 02/08/18 06/05/19 Korin Lamb MD [address], [address] [address] Assigned PCP 06/06/19 04/29/20 Carl Farah MD [address] [facility] [address] [place] [address] Assigned Heart and Vascular Provider 12/31/19 12/16/20 Marcos Sandoval MD NO INFO AVAILABLE 10/03/22 Assigned PCP 04/30/20 05/06/20 Korin Lamb MD [address], [address] [place] [address] Assigned PCP 05/07/20 05/28/20 Gavi Cloud MD [address] [place] [address] Assigned PCP 05/29/20 01/06/21 Jasmin Maradiaga PA-C [address], [address] [place] [address] Assigned PCP 01/07/21 09/28/21 Itzel Polk APRN DIFFERENTIAL SPECIALIST NO INFO AVAILABLE 12/27/2021 Assigned Heart and Vascular Provider 12/17/20 02/17/21 Carl Farah MD [address] [place] [phone] Assigned Heart and Vascular Provider 02/18/21 12/14/21 Gavi Cloud MD [address] [place] [address] Assigned PCP 09/29/21 10/19/21 Jasmin Maradiaga PA-C [address], [facility] [address] [place] [address] Assigned PCP 10/20/21 Itzel Polk APRN DIFFERENTIAL SPECIALIST NO INFO AVAILABLE 12/27/2021 Assigned Heart and Vascular Provider 12/15/21 05/17/22 Carl Farah MD [address] [place] [address] Assigned Heart and Vascular Provider 05/18/22 Hector Goode MD [address] [facility] [id number] [place] [address] Assigned Neuroscience Provider 07/01/23 documented as of this encounter
--- OUTSIDE RECORDS SUMMARY | 2024-02-01 08:23 | XMS_ITS | Encounter Summary ---
Author Organization [place] Address [facility] [place] [address] Care Team Providers Care Public Service Director Name Role Phone Hector Goode MD Unavailable John Cancino MD Unavailable [phone] Jasmin Maradiaga PA-C Primary Care Provid er Jasmin Maradiaga PA-C Unavailable + [phone] Itzel Polk APRN, CNP Unavailable Unavailable Carl Farah MD Unavailable [phone] Hector Goode MD Unavailable Reason for Visit * Reason Onset Date Comments Refill Request 01/22/2022 potassium chlori de ER (KLOR-CON M) 10 MEQ CR tablet Encounter Details Date Type Department Care Team (Late st Contact Info) Description 01/22/2022 [facility] Heart [facility] [id number] [place] [address] [address] [place] [address] Carl Farah MD [address] [place] [address] Refill Request (potassium chloride ER (KLOR-CON M) 10 MEQ CR tablet) Social History Tobacco Use Types Packs/Day Years [...] PHQ-2 Answer Date Recorded PHQ-2 Score 0 03/16/2021 Hunger Vital Sign Answer Date Recorded Within [...] on file 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 No / Unsure 12/28/2021 1:21 PM CDT documented as of this encounter Miscellaneous Notes * Telephone Encounter - Alecia Anaya - 01/22/2022 4:13 PM CST [facility] Phone Message May a detailed message be left on voicemail: no Reason for Call: Medication Question or concern regarding medication Prescription Clarification Name of Medication: potassium chloride ER (KLOR-CON M) 10 MEQ CR tablet Prescribing Provider: Carl Farah MD Pharmacy: 1 time order only to local [facility] at: [facility] [address], [place] [address] After this refill please return to mail order pharmacy What on the order needs clarification? Refill request. 2 pills remaining, high priority Action Taken: Other: RU Cardiology Travel Screening: Not Applicable USER OPERATOR documented in this encounter Plan of Treatment Upcoming Encounters Date Type Department Care Team (Late st Contact Info) Description 06/14/2024 1:00 PM CDT Office Visit [facility] Neurology Clinic [address] [place] [address] Hector Goode MD [address] [place] [address] documented as of this encounter Visit Diagnoses Not on filedocumented in this encounter Care Teams Public Service Director Relationship Specialty Start Date End Date Jasmin Maradiaga PA-C [address] [address] PCP - General Family Medicine 03/16/21 Hector Goode MD [address] [place] [address] Neurology 05/01/17 John Cancino MD [address] [place] [address] Family Medicine - Sports Medicine 07/30/17 Jasmin Maradiaga PA-C [address] , [address] [address] Assigned PCP 10/20/21 Itzel Polk APRN LITERACY TEACHER NO INFO AVAILABLE 12/27/2021 Assigned Heart and Vascular Provider 12/15/21 05/17/22 Carl Farah MD [address] [place] [phone] Assigned Heart and Vascular Provider 05/18/22 Hector Goode MD [address] [facility] [id number] [place] [address] Assigned Neuroscience Provider 07/01/23 documented as of this encounter
--- OUTSIDE RECORDS SUMMARY | 2024-02-01 08:23 | XMS_ITS | Encounter Summary ---
Author Organization [facility] Address [address] [place] [address] Care Team Providers Care Residential Door Unit Installer Name Role Phone Roslyn Sandoval MD Primary Care Provider Unav ailable Hector Goode MD Unavailable John Cancino MD Unavailable [phone] Roslyn Sandoval MD Unavailable UnavailKorin Cash MD Unavailable +- 03 Korin Lamb MD Primary Care Provider [phone] Carl Farah MD Unavailable [phone] Roslyn Sandoval MD Unavailable UnavailKorin Cash MD Unavailable +- 03 Gavi Cloud MD Unavailable [phone] Jasmin Maradiaga PA-C Unavailable + Itzel Polk APRN BRANCH STORE MANAGER Unavailable Unavailable Carl Farah MD Unavailable [phone] Jasmin Maradiaga PA-C Primary Care Provid er Gavi Cloud MD Unavailable +[phone] Jasmin Maradiaga PA-C Unavailable + [phone] Itzel Polk APRN BRANCH STORE MANAGER Unavailable Unavailable Carl Farah MD Unavailable [phone] Hector Goode MD Unavailable Encounter Details Date Type Department Care Team (Late st Contact Info) Description 06/17/2006 Office Visit-[facility] [place] [address] [facility] [address] [place] [phone] Carl Farah MD [address] [facility] [address] [place] [phone] Social History Tobacco Use Types Packs/Day Years Used Date Smoking Tobacco: Never Alcohol Use Standard Drinks/Week Comments No 0 (1 standard drink = 0.6 oz pur e alcohol) on occ Comments No Sex and Gender Information Value Date Recorded Sex Assigned at Not on file 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 DATE: 06/17/2006 GRISELDA LAI DATE OF : 1945 AGE: [age] years old Referring Physician: ROSLYN SANDOVAL Referring Clinic: [facility]. CURRENT DIAGNOSES 1. - Congestive Heart Failure, 428.0 2. 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 - Hypercholesterolemia, 272.0 4. - Abnormal Test-Abnormal Exercise Stress Test, 794.30 5. - Bundle Branch Block-left, 426.3 ALLERGIES hydrocortisone, Hot sob Sulfa MEDICATIONS (including any changes made today) 1. Gleevec 100mg, 4 p.o. q.d. 2. Advair 100/50, Take as Directed 3. Zoloft 50 mg, 1 p.o. q.d. 4. Lumigen opth 0.03%, Take as Directed 5. Alphagan 0.2%, Take as Directed 6. Digoxin 0.125 Mg, 1 p.o. q.d. 7. Avapro 150 Mg, 1/2 tab q.d. 8. Potassium Chloride 10 Meq, 1 p.o. q.d. 9. Spironolactone 25 Mg, 1 p.o. q.d. 10. Coreg 12.5 Mg, 1 p.o. b.i.d. 11. Lasix 40 Mg, 1/2 tab q.d. CHIEF COMPLAINTS Per MD - follow up HISTORY OF PRESENT ILLNESS Griselda Lai returns for follow-up. She has an idiopathic dilated cardiomyopathy which might be actually genetic or familial since her son has now been diagnosed with the same. She was having shortness of breath out of proportion to what I could explain with heart. She went to [facility] for a se cond opinion and was told that she was simply deconditioned. She has gone on the [employer] Diet and now has lost 40 pounds. With this she is actually a little light-headed and as it turns out her blood pressure is running low and her cholesterol numbers have gotten much better. I suspect that it is actually the weight loss that is causing the slight light-headedness with low blood pressure and low cholesterol. She asked me about lowering the Lipitor dose further. She is on 5 with excellentlipid numbers and she does not have any significant coronary disease. I told her to cut down further does not make any sense and probably she could just stop the Lipitor, recheck her cholesterol numbers in a few months with Dr. Sandoval and see if she even needs to be on Lipitor at all. In the interim, PAST HISTORY Past Medical Illnesses: IBS, depression, sarcoid, sleep apnea, CML, TIA, vertebral art. narrowing (keep SBP up a bit), asthma, CPAP machine, MRA/MRI of head [place] [facility] [place] coumadin stopped 02-12 Past Cardiac Illnesses: CHF,LBBB, Idiopathic Dilated Cardiomyapathy, [...] Residence - lives alone; Place of - [place]; Spouse's Occupation - ; REVIEW OF SYSTEMS GENERAL weight loss INTEGUMENTARY denies any change in hair or nails, rashes, or skin lesions. EYES wears eye glasses/contact lenses EARS, NOSE, THROAT, MOUTH denies any hearing loss, epistaxis, hoarseness or difficulty speaking. RESPIRATORY dry cough CARDIOVASCULAR light headedness, chest pain, occ ABDOMINAL denies change in bowel habits, dyspepsia, ulcer disease, hematochezia or melena. GENITOURINARY-FEMALE positive for nocturia, post menopausal without hormonal replacement MUSCULOSKELETAL denies any history of arthritic symptoms or back problems., joint pain, knee NEUROLOGICAL tia in the past, no further neuro events-follows with neurology PSYCHIATRIC denies any history of depression, substance abuse or change in cognitive functions. ENDOCRINE hyperlipidemia HEMATOLOGICAL/IMMUNOLOGIC easy bruising IMPRESSION/PLAN: I will cut her Lasix to half a pill a day. She will need follow-up electrolytes and creatinine alsolater this year and I will cut her Coreg to one tablet twice a day. If her blood pressure is still running low we could cut the Coreg down further or cut the spironolactone or Lasix down further. I did not want to stop the Avapro since she does have a dilated cardiomyopathy and she is already on a low dose of that drug. Interestingly, she was diagnosed with a head bleed when she was on Coumadin even though it was relatively speaking asymptomatic. She is now off blood thinners per [facility]. We will see the patient back in six months. TODAYS ORDERS 1. Return Visit 6 months Carl Farah M.D. documented in this encounter Plan of Treatment Upcoming Encounters Date Type Department Care Team (Late st Contact Info) Description 06/14/2024 1:00 PM CDT Office Visit [facility] [address] 3rd [place] [phone] Hector Goode MD [address] [place] [address] [id number] [place] [address] documented as of this encounter Visit Diagnoses Not on filedocumented in this encounter Care Teams Residential Door Unit Installer Relationship Specialty Start Date End Date Roslyn Sandoval MD NO INFO AVAILABLE 10/03/22 PCP - General 03/27/99 08/11/19 Korin Lamb MD [address], [address] [place] [address] PCP - General Family Practice 08/12/19 03/15/21 Jasmin Maradiaga PA-C [address], [address] [address] PCP - General Family Medicine 03/16/21 Hector Goode MD [address] [address] Neurology 05/01/17 John Cancino MD [address] [address] Family Medicine - Sports Medicine 07/30/17 Roslyn Sandoval MD NO INFO AVAILABLE 10/03/22 Assigned PCP 02/08/18 06/05/19 Korin Lamb MD [address], [address] [address] Assigned PCP 06/06/19 04/29/20 Carl Farah MD [address] [facility] [address] [place] [phone] Assigned Heart and Vascular Provider 12/31/19 12/16/20 Roslyn Sandoval MD NO INFO AVAILABLE 10/03/22 Assigned PCP 04/30/20 05/06/20 Korin Lamb MD [address], [address] [place] [address] Assigned PCP 05/07/20 05/28/20 Gavi Cloud MD [address] [place] [address] Assigned PCP 05/29/20 01/06/21 Jasmin Maradiaga PA-C [address], [address] [place] [address] Assigned PCP 01/07/21 09/28/21 Itzel Polk APRN BRANCH STORE MANAGER NO INFO AVAILABLE 12/27/2021 Assigned Heart and Vascular Provider 12/17/20 02/17/21 Carl Farah MD [address] [place] [phone] Assigned Heart and Vascular Provider 02/18/21 12/14/21 Gavi Cloud MD [address] [place] [address] Assigned PCP 09/29/21 10/19/21 Jasmin Maradiaga PA-C [address], [address] [place] [address] Assigned PCP 10/20/21 Itzel Polk APRN BRANCH STORE MANAGER NO INFO AVAILABLE 12/27/2021 Assigned Heart and Vascular Provider 12/15/21 05/17/22 Carl Farah MD [address] [place] [phone] Assigned Heart and Vascular Provider 05/18/22 Hector Goode MD [address] [facility] [place] [id number] [address] Assigned Neuroscience Provider 07/01/23 documented as of this encounter
--- OUTSIDE RECORDS SUMMARY | 2024-02-01 08:23 | XMS_ITS | Encounter Summary ---
Author Organization [facility] Address [address] [place] [address] Care Team Providers Care Senior Technologist Name Role Phone Roslyn Sandoval MD Primary Care Provider Unav ailable Hector Goode MD Unavailable John Cancino MD Unavailable [phone] Roslyn Sandoval MD Unavailable UnavailKorin Cash MD Unavailable +- [phone] Korin Lamb MD Primary Care Provider [phone] Carl Farah MD Unavailable [phone] Roslyn Sandoval MD Unavailable UnavailKorin Cash MD Unavailable +- 03 Gavi Cloud MD Unavailable [phone] Jasmin Maradiaga PA-C Unavailable + Itzel Polk APRN ELECTRONIC HEAT SEAL OPERATOR Unavailable Unavailable Carl Farah MD Unavailable [phone] Jasmin Maradiaga PA-C Primary Care Provid er Gavi Cloud MD Unavailable +[phone] Jasmin Maradiaga PA-C Unavailable + [phone] Itzel Polk APRN ELECTRONIC HEAT SEAL OPERATOR Unavailable Unavailable Carl Farah MD Unavailable [phone] Hector Goode MD Unavailable Encounter Details Date Type Department Care Team (Late st Contact Info) Description 05/24/2013 Office Visit-[facility] [place] [address] [place] [phone] Carl Farah MD [address] [facility] [address] [place] [phone] Social History Tobacco Use Types Packs/Day Years Used Date Smoking Tobacco: Never Smokeless Tobacco: Never Alcohol Use Standard Drinks/Week Comments Yes 0 (1 standard drink = 0.6 oz pur e alcohol) VERY RARE Comments No Sex and Gender Information Value Date Recorded Sex Assigned at Not on file 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 DATE: 05/24/2013 GRISELDA LAI DATE OF : 1945 AGE: [age] years old Referring Physician: ROSLYN SANDOVAL Referring Clinic: [facility] CURRENT DIAGNOSES 1. - Hypercholesterolemia, 272.0 2. 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 Myalgia And Myositis Unspecified, 729.1 4. - Congestive Heart Failure, 428.0 5. - Bundle Branch Block-left, 426.3 6. - Abnormal Test-Abnormal Exercise Stress Test, 794.30 ALLERGIES hydrocortisone, Hot sob Sulfonamides MEDICATIONS (prior to changes made today) 1. potassium chloride 10 mEq tablet extended release, 1 p.o. qAM 2. spironolactone 25 mg tablet, 1 p.o. qAM 3. Vitamin D3 1,000 unit tablet, 1 p.o. daily 4. Aspirin Low Dose 81 mg tablet,delayed release (DR/EC), 1 p.o. daily 5. carvedilol 12.5 mg tablet, 1 p.o. twice daily 6. Centrum Silver Ultra Women's tablet, 1 p.o. daily 7. Crestor 5 mg tablet, 1 p.o. daily 8. Fish Oil 300 mg capsule, 2 p.o. daily 9. furosemide 40 mg tablet, 1/2 tab daily, aditional 1/2 tab prn weight gain 10. Gleevec 400 mg Tablet, 1 p.o. daily 11. irbesartan 150 mg tablet, 1/2 tab qAM CHIEF COMPLAINTS Followup of - Cardiomyopathy Idiopathic HISTORY OF PRESENT ILLNESS Thank you for referring back Griselda Lai. Please see my previous notes. I have known this woman including her family and for years now. The patient has an idiopathic cardiomyopathy. Her ejection fraction at the last count was up to 45% to 50%, which is quite good. She has very little in the way of any congestive heart failure symptoms. She has an underlying left bundle branch block, but no syncope or pacemaker. Of importance, she has been diagnosed with FSH muscular dystrophy. We did review that time. FSH muscular dystrophy rarely affects the heart. There are occasional reports of arrhythmia and atrial standstill. The reports say that although there is some question if it is associated with muscular dystrophy, most of the patients have an incidental cardiomyopathy thatis unrelated the FSH muscular dystrophy. However, there are reports of respiratory muscle weakness with FSH muscular dystrophy. However, most of those reports are only on patients with the extreme form and often with proximal muscle weakness and wheelchair use. The reason that I bring this up is the pulmonary function tests show a restrictive pattern with FEV1 and FVC, which are both about 65% ofpredicted. Her negative inspiratory pressure was only about 50% of predicted. Her DLCO was normal. She does complain about shortness of breath, and I am suspicious that it is more likely her weight and any of the respiratory or pulmonary component that is causing the shortness of breath more than her cardiomyopathy. She has CML, but it is in remission. I believe that her last blood counts were normal. Her lipid numbers are better now that she is back on Crestor. She was temporarily off the Crestor when there was a questions raised if it was causing her body aches. She did say that there was no difference off of the Crestor versus on it, so she is now back on it. PAST HISTORY Past Medical Illnesses: IBS, depression, sarcoid, sleep apnea, CML (on gleevec Dr Bustillo), TIA, vertebral art. narrowing (keep SBP up a bit), asthma, CPAP machine, MRA/MRI of head at [facility] coumadin stopped 02-12, hyperlipidemia, familial- fascioscapularhumeral-muscular dystrophy, transient cerebral ischemia, lumbago, glaucoma,bladder neoplasm, arthritis (osteo) of left leg, central and obstructive sleep apnea, restrictive lung pattern PFT (?due to muscular dystrophy) Past Cardiac Illnesses: CHF,LBBB, Idiopathic Dilated Cardiomyapathy, arrhythmia when low K+, ?familial cardiomyopathy (son with dilated cmp and a son with FSHD muscular dystrophy) Surgeries/Procedures - General: R arthroscopic knee surg, blepheroplasty Cardiac/Vasc Procedures-Invasive: , cardiac cath (left) Cardiology Procedures-NonInvasive: myocardial perfusion imaging (Nuclear) June 2005, CT Angiogram 07/13, echocardiogram September 2007, 2011 Pulmonary Testing: Sleep Study Mar 2012, PFTs/DLCO Jan 2010 Cardiac Cath Results: 1995 normal coronaries, EF 50-55% PMHx Echo Results: 01/14 LV function has improved., 09/2007 Mild global hypokinesis of LV, 07/17 mild global hypokinesis of LV, mildly enlarged LA, trace MR and TR, abnormal paradoxical septal motion consistant with LBBB, 2011 No change Left Ventricular Ejection Fraction: EF 40-45% by echo 08/12, EF 48% at rest by nuc 06/13, EF 30-35% by echo 01/13, EF 40-45% via echo 01/14, EF 45-50% by Echo -September 2007, EF 49% by echo July 2009, Echo Ef 45-50% 2011 Nuclear Results: 06/25/05 A moderate size, reversible inferior and inferoseptal defect which may be a result of myocardial ischemia CT Results: 07/22/05 Mild coronary artery disease LVEF of 49% documented via echocardiogram on 07/12/2009 FAMILY HISTORY: Family - +FH FSHD muscular dystrophy; Father - quadruple bypass; Mother - CVA, hemorrhagic; Son - dilated cardiomyopathy; SOCIAL HISTORY Alcohol Use - denies drinking; Smoking - never smoked; Diet - regular diet without modifications and caffeine use-1-2 per day; Lifestyle - children, drives car and ; Exercise - no regular exercise; Seat Belt Use - never; Occupation - disabled; Sexual Activity - did not discuss sexual history; Residence - lives alone; Place of - [place]; Spouse's Occupation - ; REVIEW OF SYSTEMS GENERAL weight gain 6.4# from last OV, 04/2012, energy level low INTEGUMENTARY denies any change in hair or nails, rashes, or skin lesions. EYES no blurred vision, eye pain, or discharge. EARS, NOSE, THROAT, MOUTH denies any hearing loss, epistaxis, hoarseness or difficulty speaking. RESPIRATORY dyspnea with exertion, sleep apnea, uses bi-pap at night, dry cough CARDIOVASCULAR edema of the legs, denies chest pain, denies palpitations, denies dizziness ABDOMINAL denies ulcer disease, hematochezia or melena. MUSCULOSKELETAL has muscular dystrophy, loss of strength, back pain NEUROLOGICAL hx possible tia 2002 PSYCHIATRIC denies any history of depression, substance abuse or change in cognitive functions. ENDOCRINE denies any history of thyroid disease or diabetes mellitus. HEMATOLOGICAL/IMMUNOLOGIC hx leukemia PHYSICAL EXAMINATION VITAL SIGNS: Blood Pressure: 128/66Sitting, Left arm, regular cuff Pulse- 80.00/min. Weight- 259.40 lbs. Height- 65 BMI Measurement: 43 CONSTITUTIONAL cooperative, alert and oriented,well developed, well nourished, in no acute distress. SKIN warm and dry to touch, no apparent skin lesions, or masses noted. HEAD normocephalic, atraumatic EYES Pupils equal and round, conjunctivae and lids unremarkable, sclera white, no xanthalasma ENT no pallor or cyanosis, dentition good NECK carotid pulses are full and equal bilaterally, JVP normal, no carotid bruit, no thyromegaly CHEST normal symmetry, no tenderness to palpation, normal respiratory excursion, no intercostal retraction, no use of accessory muscles, clear to auscultation and percussion. CARDIAC RRR, dec heart tones, ?minimal systolic murmur ABDOMEN abdomen soft, bowel sounds normoactive, no masses, no hepatosplenomegaly, non- tender, no bruits, obese PERIPHERAL PULSES pulses full and equal in all extremities, no bruits auscultated. EXTREMITIES & BACK ankle edema, trace to one plus, L<GT>R (stable) PSYCHIATRIC oriented to time, place, and person NEUROLOGICAL no gross motor deficits noted, affect appropriate, oriented to time, person and place. MEDICATIONS UPDATED/STARTED TODAY: Aspirin Low Dose 81 mg tablet,delayed release (DR/EC), 1 p.o. daily, #0 (Zero) Centrum Silver UltraWomen's tablet, 1 p.o. daily, #0 (Zero) Fish Oil 300 mg capsule, 2 p.o. daily, #25 2 bottles Vitamin D3 1,000 unit tablet, 1 p.o. daily, #0 (Zero) IMPRESSION/PLAN: I will ask Dr. Sandoval to get electrolytes and a creatinine at least twice a year given the medicines that she is on and kindly forward a copy to us. I would not mind seeing a CBC from Dr. Bustillo or a lipid panel with liver tests once a day. The patient was supposed to follow up with Dr. Ventura for follow up of her pulmonary function tests and assessment of her sleep apnea and BiPAP. The patient felt that she was doing well and was stable. There was unlikely to be any change.Therefore, she did not follow up on that visit. From a cardiac standpoint, I will keep her on the same medicines. I will see her back in a year. I will do an echocardiogram next year, which will be three years from her last one just to make sure that the ejection fraction remains as good as it has been. This was a 40 minute visit. Greater than 50% of the time was spent in counseling. TODAYS ORDERS 1. 12 Lead EKG 1 year 2. 2D, color flow, doppler 1 year 3. F/U with Carl Farah MD 1 year Carl Farah M.D. documented in this encounter Plan of Treatment Upcoming Encounters Date Type Department Care Team ([facility] st Contact Info) Description 06/14/2024 1:00 PM CDT Office Visit [facility] [address] [place] [phone] Hector Goode MD [address] [place] [address] [id number] [place], [place] [id number] documented as of this encounter Visit Diagnoses Not on filedocumented in this encounter Care Teams Senior Technologist Relationship Specialty Start Date End Date Roslyn Sandoval MD NO INFO AVAILABLE 10/03/22 PCP - General 03/27/99 08/11/19 Korin Lamb MD [address], [address] [address] PCP - General Family Practice 08/12/19 03/15/21 aJsmin Maradiaga PA-C [address], [address] [place] [address] PCP - General Family Medicine 03/16/21 Hector Goode MD [address] [place] [id number] [place] [address] Neurology 05/01/17 John Cancino MD [address] [address] Family Medicine - Sports Medicine 07/30/17 Roslyn Sandoval MD NO INFO AVAILABLE 10/03/22 Assigned PCP 02/08/18 06/05/19 Korin Lamb MD [address] [address] Assigned PCP 06/06/19 04/29/20 Carl Farah MD [address] [place] [phone] Assigned Heart and Vascular Provider 12/31/19 12/16/20 Roslyn Sandoval MD NO INFO AVAILABLE 10/03/22 Assigned PCP 04/30/20 05/06/20 Korin Lamb MD [address] [address] Assigned PCP 05/07/20 05/28/20 Gavi Cloud MD [address] [place] [address] Assigned PCP 05/29/20 01/06/21 Jasmin Maradiaga PA-C [address], [address] [place] [address] Assigned PCP 01/07/21 09/28/21 Itzel Polk APRN ELECTRONIC HEAT SEAL OPERATOR NO INFO AVAILABLE 12/27/2021 Assigned Heart and Vascular Provider 12/17/20 02/17/21 Carl Farah MD [address] [place] [phone] Assigned Heart and Vascular Provider 02/18/21 12/14/21 Gavi Cloud MD [address] [place] [address] Assigned PCP 09/29/21 10/19/21 Jasmin Maradiaga PA-C [address], [address] [place] [address] Assigned PCP 10/20/21 Itzel Polk APRN ELECTRONIC HEAT SEAL OPERATOR NO INFO AVAILABLE 12/27/2021 Assigned Heart and Vascular Provider 12/15/21 05/17/22 Carl Farah MD [address] [place] [phone] Assigned Heart and Vascular Provider 05/18/22 Hector Goode MD [address] [facility] [id number] [place] [address] Assigned Neuroscience Provider 07/01/23 documented as of this encounter
--- OUTSIDE RECORDS SUMMARY | 2024-02-01 08:23 | XMS_ITS | Encounter Summary ---
Author Organization [facility] Address [address] [place] [address] Care Team Providers Care Information Services Assistant Name Role Phone Marcos Sandoval MD Primary Care Provider Unav ailable Hector Goode MD Unavailable John Cancino MD Unavailable [phone] Marcos Sandoval MD Unavailable UnavailKorin Cash MD Unavailable +- 03 Korin Lamb MD Primary Care Provider [phone] Carl Farah MD Unavailable [phone] Marcos Sandoval MD Unavailable UnavailKorin Cash MD Unavailable +- 03 Gavi Cloud MD Unavailable [phone] Jasmin Maradiaga PA-C Unavailable + Ian Polk APRN SHEET TAKER Unavailable Unavailable Carl Farah MD Unavailable [phone] Jasmin Maradiaga PA-C Primary Care Provid er Gavi Cloud MD Unavailable [phone] Jasmin Maradiaga PA-C Unavailable + [phone] Ian Polk APRN SHEET TAKER Unavailable Unavailable Carl Farah MD Unavailable [phone] Hector Goode MD Unavailable Encounter Details Date Type Department Care Team (Late st Contact Info) Description 01/10/2009 Office Visit-[facility] [place] [address] [facility] [address] [place] [id number] Carl Farah MD [address] [facility] [address] [place] [id number] Social History Tobacco Use Types Packs/Day Years Used Date Smoking Tobacco: Never Alcohol Use Standard Drinks/Week Comments No 0 (1 standard drink = 0.6 oz pur e alcohol) Comments No Sex and Gender Information Value Date Recorded Sex Assigned at Not on file 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 DATE: 01/10/2009 GRISELDA LAI DATE OF : 1945 AGE: [age] years old Referring Physician: MARCOS SANDOVAL Referring Clinic: [facility] CURRENT DIAGNOSES 1. Myalgia And Myositis Unspecified, 729.1 2. - Abnormal Test-Abnormal Exercise Stress Test, 794.30 3. - Congestive Heart Failure, - Congestive Heart Failure 4. - Bundle Branch Block-left, 426.3 5. - Congestive Heart Failure, 428.0 6. - Cardiomyopathy Idiopathic, 425.4 7. - Hypercholesterolemia, 272.0 ALLERGIES hydrocortisone, Hot sob Sulfa MEDICATIONS (prior to changes made today) 1. Crestor 10 mg, 1 p.o. daily 2. Avapro 150 Mg, 1/2 tab qAM 3. Potassium Chloride 10 Meq, 1 p.o. qAM 4. Spironolactone 25 Mg, 1 p.o. qAM 5. Carvedilol 12.5mg, 1 p.o. twice daily 6. Digoxin 0.125 Mg, 1 p.o. qAM 7. Lasix 40 Mg, 1/2 tablet daily; with extra 1/2 tab prn weight up 2-3 pounds in a day or edema increase 8. Gleevec 100mg, 4 p.o. daily 9. Zoloft 50 Mg, 1 p.o. daily CHIEF COMPLAINTS HISTORY OF PRESENT ILLNESS Griselda Lai is a delightful 64-year-old woman. She has an idiopathic, nonischemic cardiomyopathy. Her ejection fraction is approximately 50%. She always has some shortness of breath, which is probably from obesity and lung issues, probably not from her heart. She has been evaluated many times for that. She also has asthma and a CPAP machine. Because of a previous head bleed she is off Coumadin. Cardiac vuong she feels fine. She has no increased peripheral edema. Her shortness of breath is stable as I alluded to above. No chest pain, syncope. The neurologist is working her up for myalgias and wanted us to do some additional tests. PAST HISTORY Past Medical Illnesses: IBS, depression, sarcoid, sleep apnea, CML, TIA, vertebral art. narrowing (keep SBP up a bit), asthma, CPAP machine, MRA/MRI of head at [place]-[facility] coumadin stopped 02-12, hyperlipidemia Past Cardiac Illnesses: CHF,LBBB, Idiopathic Dilated Cardiomyapathy, arrhythmia when low K+, ?familial cardiomyopathy (son with dilated cmp) Surgeries/Procedures - General: R arthroscopic knee surg Cardiology Procedures-Invasive: , cardiac cath (left) Cardiology Procedures-Noninvasive: myocardial perfusion imaging (Nuclear) June 2005, CT Angiogram 07/13, echocardiogram September 2007 Cardiac Cath Results: 1995 normal coronaries, EF 50-55% PMHx Echo Results: 01/14 LV function has improved., 09/2007 Mild global hypokinesis of LV Left Ventricular Ejection Fraction: EF 40-45% by echo 08/12, EF 48% at rest by nuc 06/13, EF 30-35% by echo 01/13, EF 40-45% via echo 01/14, EF 45-50% by Echo -September 2007 Nuclear Results: 06/25/05 A moderate size, reversible inferior and inferoseptal defect which may be a result of myocardial ischemia CT Results: 07/22/05 Mild coronary artery disease PHYSICAL EXAMINATION VITAL SIGNS: Blood Pressure: 132/70 Sitting, Right arm, large cuff Pulse- 58.00/min. Weight- 249.00 lbs. Height- 66.00 Temperature- .00 CONSTITUTIONAL cooperative, [...] muscles, clear to auscultation and percussion. CARDIAC RRR Gr 2 harsh early KENNETH at base, no s3 ABDOMEN abdomen soft, bowel sounds normoactive, no masses, no hepatosplenomegaly, non- tender, no bruits, obese PERIPHERAL PULSES pulses full and equal in all extremities, no bruits auscultated. EXTREMITIES & BACK ankle edema, trace to one plus PSYCHIATRIC oriented to time, place, and person NEUROLOGICAL no gross motor deficits noted, affect appropriate, oriented to time, person and place. MEDICATIONS UPDATED/STARTED TODAY: Crestor 10 mg, 1 p.o. daily, 90 Avapro 150 Mg, 1/2 tab qAM, #45 Potassium Chloride 10 Meq, 1 p.o. qAM, #90 Spironolactone 25 Mg, 1 p.o. qAM, #90 Carvedilol 12.5mg, 1 p.o. twice daily, #180 Digoxin 0.125 Mg, 1 p.o. qAM, #90 Lasix 40 Mg, 1/2 tablet daily; with extra 1/2 tab prn weight up 2-3 pounds in a day or edema increase, #90 MEDICATIONS REFILLED/STOPPED TODAY: Digoxin 0.125 Mg 1 p.o. qAM #90 Refill, Lipitor 10 Mg 1 p.o. qAM #90 Physician Order, Lasix 40 Mg 1/2 tablet daily; with extra 1/2 tab prn weight up 2-3 pounds in a day or edema increase #90 Refill, Carvedilol 12.5mg 1 p.o. twice daily #180 Refill, Avapro 150 Mg 1/2 tab qAM #45 Refill, Spironolactone 25 Mg 1 p.o. qAM #90 Refill and Potassium Chloride 10 Meq 1 p.o. qAM #90 Refill IMPRESSIONS/PLAN The tests that we run in our lab are back already and as follows: Sodium 140, potassium 3.9, BUN 11, creatinine 0.9, glucose 116. We have seen her blood sugar patito up and down above and below 100. Shecan follow-up with Dr. Sandoval. I think simple weight loss will be the best option for that. Her triglycerides are 170 which are above normal but lower than 225 from earlier in the year. Total cholesterol 162, HDL 39, LDL 89. Given that she does not have coronary disease her LDL goal is 100. Her HDL goal is dropping and again this is consistent with metabolic syndrome. Dr. Lehman asked us also to do a TSH and Vitamin D level, DRAKE, sedrate those are pending and will be sent out separately. Thepatient has been instructed to call us for those results if she does not get a call from us. I should note that in 09/14 her TSH was already drawn and it was 2.13, nevertheless we did redraw the testper Dr. Lehman's request. I do not know if Dr. Sandoval has some of the other tests such as DRAKE but they were drawn at her request. Because of the low HDL I am going to have her switch Lipitor to Crestor 10mg when she runs out of her current dose. We will recheck it when she comes back in six months. We will also do an echocardiogram at that time. I told her if the Crestor is not covered by her insurance company we will just leave her on Lipitor. Again because she does not have underlying coronary disease I am not being quiteas aggressive on her lipids. Total consult time 25 minutes, greater than 50% counseling some of which had to do with explaining to her what tests were being drawn by the neurologist rather than actual cardiac issue. TODAYS ORDERS 1. Lipid profile/ALT 1 day 2. BMP 1 day 3. Lipid profile/ALT 6 months 4. 2D, color flow, doppler 6 months,may include the addition of contrast,bubble study,or the changeto either a limited or complete study-see policy 5. F/U with Ian Polk, MSN, ANP 6 months Carl Farah M.D. cc:Donis Fofana M.D. documented in this encounter Plan of Treatment Upcoming Encounters Date Type Department Care Team (Late st Contact Info) Description 06/14/2024 1:00 PM CDT Office Visit [facility] [address]rd [place] [address] Hector Goode MD [address] [place] [address] [id number] [place], [place] [id number] documented as of this encounter Visit Diagnoses Not on filedocumented in this encounter Care Teams Information Services Assistant Relationship Specialty Start Date End Date Marcos Sandoval MD NO INFO AVAILABLE 10/03/22 PCP - General 03/27/99 08/11/19 Korin Lamb MD [address], [address] [address] PCP - General Family Practice 08/12/19 03/15/21 Jasmin Maradiaga PA-C [address], [address] [address] PCP - General Family Medicine 03/16/21 Hector Goode MD [address] [address] Neurology 05/01/17 John Cancino MD [address] [id number] Family Medicine - Sports Medicine 07/30/17 Marcos Sandoval MD NO INFO AVAILABLE 10/03/22 Assigned PCP 02/08/18 06/05/19 Korin Lamb MD [address] , [address] [address] Assigned PCP 06/06/19 04/29/20 Carl Farah MD [address] [place] [phone] Assigned Heart and Vascular Provider 12/31/19 12/16/20 Marcos Sandoval MD NO INFO AVAILABLE 10/03/22 Assigned PCP 04/30/20 05/06/20 Korin Lamb MD [address], [address] [address] Assigned PCP 05/07/20 05/28/20 Gavi Cloud MD [address] [place] [address] Assigned PCP 05/29/20 01/06/21 Jasmin Maradiaga PA-C [address], [address] [place] [address] Assigned PCP 01/07/21 09/28/21 Ian Polk APRN SHEET TAKER NO INFO AVAILABLE 12/27/2021 Assigned Heart and Vascular Provider 12/17/20 02/17/21 Carl Farah MD [address] [facility] [place] [phone] Assigned Heart and Vascular Provider 02/18/21 12/14/21 Gavi Cloud MD [address] [place] [address] Assigned PCP 09/29/21 10/19/21 Jasmin Maradiaga PA-C [address] , [address] [place] [address] Assigned PCP 10/20/21 Ian Polk APRN SHEET TAKER NO INFO AVAILABLE 12/27/2021 Assigned Heart and Vascular Provider 12/15/21 05/17/22 Carl Farah MD [address] [place] [phone] Assigned Heart and Vascular Provider 05/18/22 Hector Goode MD [address] [facility] [id number] [place] [address] Assigned Neuroscience Provider 07/01/23 documented as of this encounter
--- OUTSIDE RECORDS SUMMARY | 2024-02-01 08:23 | XMS_ITS | Encounter Summary ---
Author Organization [employer] Address [address] [place] [address] Care Team Providers Care Reimbursement Specialist Name Role Phone Marcos Sandoval MD Primary Care Provider Unav ailable Hector Goode MD Unavailable John Cancino MD Unavailable [phone] Marcos Sandoval MD Unavailable UnavailKorin Cash MD Unavailable +- 03 Korin Lamb MD Primary Care Provider [phone] Carl Farah MD Unavailable [phone] Marcos Sandoval MD Unavailable UnavailKorin Cash MD Unavailable +- 03 Gavi Cloud MD Unavailable [phone] Jasmin Maradiaga PA-C Unavailable + Ian Polk APRN CORE STRIPPER Unavailable Unavailable Carl Farah MD Unavailable [phone] Jasmin Maradiaga PA-C Primary Care Provid er Gavi Cloud MD Unavailable [phone] Jasmin Maradiaga PA-C Unavailable + [phone] Ian Polk APRN CORE STRIPPER Unavailable Unavailable Carl Farah MD Unavailable [phone] Hector Goode MD Unavailable Encounter Details Date Type Department Care Team (Late st Contact Info) Description 07/13/2009 Office Visit-[facility] [address] [place] [phone] Ian Polk APRN CORE STRIPPER NO INFO AVAILABLE 12/27/2021 Social History Tobacco Use Types Packs/Day Years Used Date Smoking Tobacco: Never Alcohol Use Standard Drinks/Week Comments No 0 (1 standard drink = 0.6 oz pur e alcohol) Comments No Sex and Gender Information Value Date Recorded Sex Assigned at Not on file 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 DATE: 07/13/2009 GRISELDA LAI DATE OF : 1945 AGE: [age] years old Referring Physician: MARCOS SANDOVAL Referring Clinic: [facility] CURRENT DIAGNOSES 1. - Hypercholesterolemia, 272.0 2. Myalgia And Myositis Unspecified, 729.1 3. - Abnormal Test-Abnormal Exercise Stress Test, 794.30 4. - Congestive Heart Failure, - Congestive Heart Failure 5. - Bundle Branch Block-left, 426.3 6. - Congestive Heart Failure, 428.0 7. - Cardiomyopathy Idiopathic, 425.4 ALLERGIES hydrocortisone, Hot sob Sulfonamides MEDICATIONS (prior to changes made today) 1. Gleevec 100 mg Tablet, 4 p.o. daily 2. Zoloft 50 mg Tablet, 1 p.o. daily 3. Crestor 5 mg Tablet, 1 p.o. daily 4. Avapro 150 mg Tablet, 1/2 tab qAM 5. Potassium Chloride 10 mEq Tablet Sustained Release, 1 p.o. qAM 6. Spironolactone 25 mg Tablet, 1 p.o. qAM 7. Carvedilol 12.5 mg Tablet, 1 p.o. twice daily 8. Lasix 40 mg Tablet, 1/2 tablet daily; with extra 1/2 tab prn weight up 2-3 pounds in a day or edema increase 9. Digoxin 125 mcg Tablet, 1 p.o. daily CHIEF COMPLAINTS follow up echo and lipids HISTORY OF PRESENT ILLNESS Griselda Lai is a delightful 64-year-old female with idiopathic cardiomyopathy. Her ejection fraction continues to be stable at 50%, in fact, the reader this year states that it looks slightly improved from last echo. She has had some chronic shortness of breath likely from obesity and pulmonary i ssues, noncardiac in nature. She has actually started an exercise program now in the past month andis feeling much better about it. She had gained some weight and has lost 10 pounds, even though herweight here is the same, I suspect she had gained some before she came back to see us. She does have a continuous positive airway pressure machine. She has a previous history of bleeding in her head and is off of Coumadin. She has no change in her edema and has had a history of some myalgias and seen Neurology for this. Her lipid panel today looks quite good. She has no history of coronary artery disease as I alluded to above. She does have mild impaired fasting glucose levels. Her triglycerides today are 138, totalcholesterol 124, HDL 40, LDL 56. Her LDL is likely overcontrolled given her lack of heart disease or diabetes. I do believe she does have impaired fasting glucose, however. She has no cardiac complaints today and is quite thrilled about her numbers as she should be. PAST HISTORY Past Medical Illnesses: IBS, depression, sarcoid, sleep apnea, CML, TIA, vertebral art. 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) Surgeries/Procedures - General: R arthroscopic knee surg Cardiology Procedures-Invasive: , cardiac cath (left) Cardiology Procedures-Noninvasive: myocardial perfusion imaging (Nuclear) June 2005, CT Angiogram 07/13, echocardiogram September 2007, July2009 Cardiac Cath Results: 1995 normal coronaries, EF 50-55% PMHx Echo Results: 01/14 LV function has improved., 09/2007 Mild global hypokinesis of LV Left Ventricular Ejection Fraction: EF 40-45% by echo 08/12, EF 48% at rest by nuc 06/13, EF 30-35% by echo 01/13, EF 40-45% via echo 01/14, EF 45-50% by Echo -September 2007, EF 49% by echo July 2009 Nuclear Results: 06/25/05 A moderate size, reversible [...] 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 INTEGUMENTARY denies any change in hair or nails, rashes, or skin lesions. EYES no blurred vision, eye pain, or discharge. EARS, NOSE, THROAT, MOUTH denies any hearing loss, epistaxis, hoarseness or difficulty speaking. RESPIRATORY dyspnea with exertion, occ CARDIOVASCULAR light headedness, none since ABDOMINAL denies ulcer disease, hematochezia or melena. MUSCULOSKELETAL denies any history of arthritic symptoms or back problems. NEUROLOGICAL denies any history of recurrent strokes, headaches, TIA, or seizure disorder. PSYCHIATRIC denies any history of depression, substance abuse or change in cognitive functions. ENDOCRINE denies any history of thyroid disease or diabetes mellitus. HEMATOLOGICAL/IMMUNOLOGIC denies any food allergies, seasonal allergies, bleeding disorders. PHYSICAL EXAMINATION VITAL SIGNS: Blood Pressure: 108/62Sitting, Right arm, regular cuff Pulse- 68.00/min. Weight- 252.00 lbs. Height- 66.00 Temperature- .00 CONSTITUTIONAL cooperative, [...] person and place. MEDICATIONS UPDATED/STARTED TODAY: Crestor 5 mg Tablet, 1 p.o. daily, #90 MEDICATIONS REFILLED/STOPPED TODAY: Crestor 10 mg Tablet 1 p.o. daily 90 Physician Order IMPRESSIONS/PLAN 1. Nonischemic cardiomyopathy with stable ejection fraction. I will continue her same cardioprotective medications and have a basic metabolic panel checked in six months and a visit with Dr. Farah.2. Her lipid panel in terms of LDL might be a bit overcontrolled since she has no heart disease or diabetes. I will decrease her Crestor to 5 mg a day hoping her HDL may rebound a bit. I have highly encouraged her to continue with her weight loss and exercise program, as she seems quite motivated and this should improve her HDL more. We will recheck in six months. It is always a pleasure to see this pleasant lady in follow-up. She reminded me that it has been 13years since her dear , who was also a patient of ours. TODAYS ORDERS 1. BMP 6 months 2. Lipid profile/ALT 6 months 3. F/U with Carl Farah MD 6 months Ian Polk, N.P. documented in this encounter Plan of Treatment Upcoming Encounters Date Type Department Care Team (Late st Contact Info) Description 06/14/2024 1:00 PM CDT Office Visit [facility] [address] [place] [address] Hector Goode MD [address] [place] [address] [id number] [place] [address] documented as of this encounter Visit Diagnoses Not on filedocumented in this encounter Care Teams Reimbursement Specialist Relationship Specialty Start Date End Date Marcos Sandoval MD NO INFO AVAILABLE 10/03/22 PCP - General 03/27/99 08/11/19 Korin Lamb MD [address] , [address] [address] PCP - General Family Practice 08/12/19 03/15/21 Jasmin Maradiaga PA-C [address] , [address] [address] PCP - General Family Medicine 03/16/21 Hector Goode MD [address] [address] Neurology 05/01/17 John Cancino MD [address] [address] Family Medicine - Sports Medicine 07/30/17 Marcos Sandoval MD NO INFO AVAILABLE 10/03/22 Assigned PCP 02/08/18 06/05/19 Korin Lamb MD [address] , [address] [address] Assigned PCP 06/06/19 04/29/20 Carl Farah MD [address] [facility] [address] [place] [phone] Assigned Heart and Vascular Provider 12/31/19 12/16/20 Marcos Sandoval MD NO INFO AVAILABLE 10/03/22 Assigned PCP 04/30/20 05/06/20 Korin Lamb MD [address] , [address] [address] Assigned PCP 05/07/20 05/28/20 Gavi Cloud MD [address] [facility] [place] [address] Assigned PCP 05/29/20 01/06/21 Jasmin Maradiaga PA-C [address] [place] [address] Assigned PCP 01/07/21 09/28/21 Ian Polk APRN CORE STRIPPER NO INFO AVAILABLE 12/27/2021 Assigned Heart and Vascular Provider 12/17/20 02/17/21 Carl Farah MD [address] [place] [phone] Assigned Heart and Vascular Provider 02/18/21 12/14/21 Gavi Cloud MD [address] [place] [address] Assigned PCP 09/29/21 10/19/21 Jasmin Maradiaga PA-C [address] [place] [address] Assigned PCP 10/20/21 Ian Polk APRN CORE STRIPPER NO INFO AVAILABLE 12/27/2021 Assigned Heart and Vascular Provider 12/15/21 05/17/22 Carl Farah MD [address] [place] [phone] Assigned Heart and Vascular Provider 05/18/22 Hector Goode MD [address] [place] [address] Assigned Neuroscience Provider 07/01/23 documented as of this encounter
--- OUTSIDE RECORDS SUMMARY | 2024-02-01 08:23 | XMS_ITS | Encounter Summary ---
Author Organization [facility] Address [address] [place] [address] Care Team Providers Care Cut Off Machine Operator Name Role Phone Marcos Sandoval MD Primary Care Provider Unav ailable Hector Goode MD Unavailable John Cancino MD Unavailable [phone] Marcos Sandoval MD Unavailable UnavailKorin Cash MD Unavailable +- 03 Korin Lamb MD Primary Care Provider [phone] Carl Farah MD Unavailable [phone] Marcos Sandoval MD Unavailable UnavailKorin Cash MD Unavailable +- 03 Gavi Cloud MD Unavailable [phone] Jasmin Maradiaga PA-C Unavailable + Itzel Polk APRN DRIVER UTILITY WORKER Unavailable Unavailable Carl Farah MD Unavailable [phone] Jasmin Maradiaga PA-C Primary Care Provid er Gavi Cloud MD Unavailable +[phone] Jasmin Maradiaga PA-C Unavailable + [phone] Itzel Polk APRN DRIVER UTILITY WORKER Unavailable Unavailable Carl Farah MD Unavailable [phone] Hector Goode MD Unavailable Encounter Details Date Type Department Care Team (Late st Contact Info) Description 04/10/2012 Office Visit-[facility] [place] [address] [facility] [address] [place] [phone] Carl Farah MD [address] [facility] [address] [place] [phone] Social History Tobacco Use Types Packs/Day Years Used Date Smoking Tobacco: Never Smokeless Tobacco: Never Alcohol Use Standard Drinks/Week Comments Yes 0 (1 standard drink = 0.6 oz pur e alcohol) VERY RARE Comments No Sex and Gender Information Value Date Recorded Sex Assigned at Not on file 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 DATE: 04/10/2012 GRISELDA LAI DATE OF : 1945 AGE: [age] years old Referring Physician: MARCOS SANDOVAL Referring Clinic: [facility] CURRENT DIAGNOSES 1. - Hypercholesterolemia, 272.0 2. 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 Myalgia And Myositis Unspecified, 729.1 4. - Congestive Heart Failure, 428.0 5. - Bundle Branch Block-left, 426.3 6. - Abnormal Test-Abnormal Exercise Stress Test, 794.30 ALLERGIES hydrocortisone, Hot sob Sulfonamides MEDICATIONS (prior to changes made today) 1. potassium chloride 10 mEq Tablet Extended Release, 1 p.o. qAM 2. spironolactone 25 mg Tablet, 1 p.o. qAM 3. Avapro 150 mg Tablet, 1/2 tab qAM 4. carvedilol 12.5 mg Tablet, 1 p.o. twice daily 5. Crestor 5 mg tablet, 1 p.o. daily 6. furosemide 40 mg Tablet, 1/2 tab daily, aditional 1/2 tab prn weight gain 7. Gleevec 400 mg Tablet, 1 p.o. daily CHIEF COMPLAINTS annual follow up, review lab results and review test results HISTORY OF PRESENT ILLNESS Griselda Lai returns for follow up. She is a delightful 67-year-old woman. I have seen her for conchis. I used to see her before that. She is practically family. She has an idiopathic cardiomyopathy. Of note, one of her sons has a cardiomyopathy. Her son also has muscular dystrophy. I suspect that there is some connection. Her ejection fraction used to be down in the 30s. Since 2006, ithas come up. We reviewed her recent echo. Her EF was 45% to 50%. She has only mild valvular abnormalities. Blood pressure shows good control. Dr. Sandoval forwarded us some blood work. Electrolytes, lipids, and liver tests are all very good. The patient does note some fatigue. She has sleep apnea and just had a sleep study. Those results are pending. I do not really think that from a cardiac standpoint that I can explain the fatigue. She has been on Coreg for years and years. It is not new. Her TSH was checked and was normal. I do not know if she is anemic at all. Of course, we will wait and see what the sleep study shows. Perhaps, there is a cause for the fatigue. I do not think that it is cardiac in nature. PAST HISTORY Past Medical Illnesses: IBS, depression, sarcoid, sleep apnea, CML, TIA, vertebral art. 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] - regular diet without modifications and caffeine use-rare; Lifestyle - children, drives car and ; Exercise - no regular exercise; Seat Belt Use - never; Occupation - disabled; Sexual Activity - did not discuss sexual history; Residence - lives alone; Place of - [place]; Spouse's Occupation - ; PHYSICAL EXAMINATION VITAL SIGNS: Blood Pressure: 118/66Sitting, Left arm, large cuff Pulse- 76.00/min. Weight- 253.00 lbs. Height- 65 BMI Measurement: 42 CONSTITUTIONAL cooperative, alert and oriented,well developed, well [...] time, person and place. MEDICATIONS UPDATED/STARTED TODAY: MEDICATIONS REFILLED/STOPPED TODAY: Zoloft 50 mg Tablet 1 p.o. daily 0 Physician Order, amoxicillin 875 mg Tablet 1 p.o. twice daily #0(Zero) Physician Order and codeine-guaifenesin 10-100 mg/5 mL Liquid as needed for cough #0 (Zero) Physician Order IMPRESSION/PLAN: Overall, she has no heart failure symptoms. No dizziness. Nothing more than trivial edema. From a cardiac standpoint, I am going to leave everything as it is. We will see her back in a year. I will ask Dr. Sandoval if she could kindly forward electrolytes andlipids for next year. I do not anticipate stress testing or an echocardiograms for several years now. It has been my pleasure taking care of this fine woman. This was a 30 minute visit. Greater than 50% of the time was spent in counseling. TODAYS ORDERS 1. F/U with Carl Farah MD 1 year Carl Farah M.D. documented in this encounter Plan of Treatment Upcoming Encounters Date Type Department Care Team (Late st Contact Info) Description 06/14/2024 1:00 PM CDT Office Visit [facility]rology [facility] [address] 3rd [place] [phone] Hector Goode MD [address] [place] [phone] documented as of this encounter Visit Diagnoses Not on filedocumented in this encounter Care Teams Cut Off Machine Operator Relationship Specialty Start Date End Date Marcos Sandoval MD NO INFO AVAILABLE 10/03/22 PCP - General 03/27/99 08/11/19 Korin Lamb MD [address] [address] PCP - General Family Practice 08/12/19 03/15/21 Jasmin Maradiaga PA-C [address] [address] PCP - General Family Medicine 03/16/21 Hector Goode MD [address] [place] [id number] Neurology 05/01/17 John Cancino MD [address] [facility] [id number] [place] [address] Family Medicine - Sports Medicine 07/30/17 Marcos Sandoval MD NO INFO AVAILABLE 10/03/22 Assigned PCP 02/08/18 06/05/19 Korin Lamb MD [address] [place] [address] Assigned PCP 06/06/19 04/29/20 Carl Farah MD [address] [facility] [address] [place] [phone] Assigned Heart and Vascular Provider 12/31/19 12/16/20 Marcos Sandoval MD NO INFO AVAILABLE 10/03/22 Assigned PCP 04/30/20 05/06/20 Korin Lamb MD [address], [address] [place] [address] Assigned PCP 05/07/20 05/28/20 Gavi Cloud MD [address] [place] [address] Assigned PCP 05/29/20 01/06/21 Jasmin Maradiaga PA-C [address], [address] [place] [address] Assigned PCP 01/07/21 09/28/21 Itzel Polk APRN DRIVER UTILITY WORKER NO INFO AVAILABLE 12/27/2021 Assigned Heart and Vascular Provider 12/17/20 02/17/21 Carl Farah MD [address] [place] [phone] Assigned Heart and Vascular Provider 02/18/21 12/14/21 Gavi Cloud MD [address] [place], [place] [address] Assigned PCP 09/29/21 10/19/21 Jasmin Maradiaga PA-C [address], [address] [place] [address] Assigned PCP 10/20/21 Itzel Polk APRN DRIVER UTILITY WORKER NO INFO AVAILABLE 12/27/2021 Assigned Heart and Vascular Provider 12/15/21 05/17/22 Carl Farah MD [address] [place] [phone] Assigned Heart and Vascular Provider 05/18/22 Hector Goode MD [address] [facility] [id number] [place], [place] [address] Assigned Neuroscience Provider 07/01/23 documented as of this encounter
--- OUTSIDE RECORDS SUMMARY | 2024-02-01 08:23 | XMS_ITS | Encounter Summary ---
Author Organization [place] Address [facility] [place] [address] Care Team Providers Care Sales Representative Printing Name Role Phone Hector Goode MD Unavailable John Cancino MD Unavailable [phone] Carl Farah MD Unavailable [phone] Jasmin Maradiaga PA-C Primary Care Provid er Jasmin Maradiaga PA-C Unavailable Itzel Polk APRN TRAINING REPRESENTATIVE Unavailable Unavailable Carl Farah MD Unavailable [phone] Hector Goode MD Unavailable Reason for Visit * Reason Onset Date Comments Refill Request 10/24/2021 furosemide (LASI X) 20 MG tablet Encounter Details Date Type Department Care Team (Late st Contact Info) Description 10/24/2021 [facility] Heart [address] [place] [phone] Itzel Polk APRN TRAINING REPRESENTATIVE NO INFO AVAILABLE 12/27/2021 Refill Request (furosemide (LASIX) 20 MG tablet) Social History Tobacco Use Types Packs/Day [...] on file 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 Call Center Phone Message May a detailed message be left on voicemail: yes Reason for Call: Medication Refill Request Has the patient contacted the pharmacy for the refill? Yes Name of medication being requested: furosemide (LASIX) 20 MG tablet Provider who prescribed the medication: Juan Luis Mcmahon [facility] [place], [place] - [address] AT PORTAL TO REGISTERED [facility] SITES Date medication is needed: [facility] calling for a new script Action Taken: Message routed to: [facility] cardio Travel Screening: Not Applicable documented in this encounter Plan of Treatment Upcoming Encounters Date Type Department Care Team (Late st Contact Info) Description 06/14/2024 1:00 PM CDT Office Visit [facility] Neurology Clinic [address] 3rd [place] [phone] Hector Goode MD [address] [place] [address] documented as of this encounter Visit Diagnoses Not on filedocumented in this encounter Care Teams Sales Representative Printing Relationship Specialty Start Date End Date Jasmin Maradiaga PA-C [address] , [address] [address] PCP - General Family Medicine 03/16/21 Hector Goode MD [address] [place] [address] Neurology 05/01/17 John Cancino MD [address] [place] [address] Family Medicine - Sports Medicine 07/30/17 Carl Farah MD [address] [place] [address] Assigned Heart and Vascular Provider 02/18/21 12/14/21 Jasmin Maradiaga PA-C [address] , [facility] [address] [place] [address] Assigned PCP 10/20/21 Itzel Polk APRN CNP NO INFO AVAILABLE 12/27/2021 Assigned Heart and Vascular Provider 12/15/21 05/17/22 Carl Farah MD [address] [place] [phone] Assigned Heart and Vascular Provider 05/18/22 Hector Goode MD [address] [facility] [id number] [place] [address] Assigned Neuroscience Provider 07/01/23 documented as of this encounter
--- OUTSIDE RECORDS SUMMARY | 2024-02-01 08:23 | XMS_ITS | Encounter Summary ---
Author Organization [facility] Address [address] [place] [address] Care Team Providers Care Chair Maker Name Role Phone Roslyn Sandoval MD Primary Care Provider Unav ailable Hector Goode MD Unavailable John Cancino MD Unavailable [phone] Roslyn Sandoval MD Unavailable UnavailKorin Cash MD Unavailable +- 03 Korin Lamb MD Primary Care Provider [phone] Carl Farah MD Unavailable [phone] Roslyn Sandoval MD Unavailable UnavailKorin Cash MD Unavailable +- 03 Gavi Cloud MD Unavailable [phone] Jasmin Maradiaga PA-C Unavailable + Itzel oPlk APRN CAR OILER Unavailable Unavailable Carl Farah MD Unavailable [phone] Jasmin Maradiaga PA-C Primary Care Provid er Gavi Cloud MD Unavailable [phone] Jasmin Maradiaga PA-C Unavailable + [phone] Itzel Polk APRN CAR OILER Unavailable Unavailable Carl Farah MD Unavailable [phone] Hector Goode MD Unavailable Reason for Visit * Reason Comments Medication Refill Encounter Details Date Type Department Care Team (Late Contact Info) Description 07/15/2014 Refill [facility] [address] [place] [address] Roslyn Sandoval MD NO INFO AVAILABLE 10/03/22 Medication Refill Social History Tobacco Use Types Packs/Day Years Used Date Smoking Tobacco: Never Smokeless Tobacco: Never Alcohol Use Standard Drinks/Week Comments Yes 0 (1 standard drink = 0.6 oz pur e alcohol) VERY RARE Comments No Sex and Gender Information Value Date Recorded Sex Assigned at Not on file 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 Gender Identity Not on file Sexual Orientation Not on file documented as of this encounter Plan of Treatment Upcoming Encounters Date Type Department Care Team (Late Contact Info) Description 06/14/2024 1:00 PM CDT Office Visit [facility] Neurology Clinic [address]rd [place] [phone] Hector Goode MD [address] [place] [address] [id number] [place] [address] documented as of this encounter Visit Diagnoses Not on filedocumented in this encounter Care Teams Chair Maker Relationship Specialty Start Date End Date Roslyn Sandoval MD NO INFO AVAILABLE 10/03/22 PCP - General 03/27/99 08/11/19 Korin Lamb MD [address] , [facility] [address] [place] [address] PCP - General Family Practice 08/12/19 03/15/21 Jasmin Maradiaga PA-C [address] , [facility] [address] [place] [address] PCP - General Family Medicine 03/16/21 Hector Goode MD [address] [address] Neurology 05/01/17 John Cancino MD [address] [id number] Family Medicine - Sports Medicine 07/30/17 Roslyn Sandoval MD NO INFO AVAILABLE 10/03/22 Assigned PCP 02/08/18 06/05/19 Korin Lamb MD [address] [address] Assigned PCP 06/06/19 04/29/20 Carl Farah MD [address] [facility] [address] [place] [phone] Assigned Heart and Vascular Provider 12/31/19 12/16/20 Roslyn Sandoval MD NO INFO AVAILABLE 10/03/22 Assigned PCP 04/30/20 05/06/20 Korin Lamb MD [address] , [address] [address] Assigned PCP 05/07/20 05/28/20 Gavi Cloud MD [address] [place] [address] Assigned PCP 05/29/20 01/06/21 Jasmin Maradiaga PA-C [address] [place] [address] Assigned PCP 01/07/21 09/28/21 Itzel Polk APRN CAR OILER NO INFO AVAILABLE 12/27/2021 Assigned Heart and Vascular Provider 12/17/20 02/17/21 Carl Farah MD [address] [place] [phone] Assigned Heart and Vascular Provider 02/18/21 12/14/21 Gavi Cloud MD [address] [place] [address] Assigned PCP 09/29/21 10/19/21 Jasmin Maradiaga PA-C [address], [address] [place] [address] Assigned PCP 10/20/21 Itzel Polk APRN CAR OILER NO INFO AVAILABLE 12/27/2021 Assigned Heart and Vascular Provider 12/15/21 05/17/22 Carl Farah MD [address] [place] [phone] Assigned Heart and Vascular Provider 05/18/22 Hector Goode MD [address] [facility] [id number] [place] [address] Assigned Neuroscience Provider 07/01/23 documented as of this encounter
--- OUTSIDE RECORDS SUMMARY | 2024-02-01 08:23 | XMS_ITS | Encounter Summary ---
Author Organization [facility] Address [facility] [place] [address] Care Team Providers Care Remote Sensing Research Scientist Name Role Phone Hector Goode MD Unavailable John Cancino MD Unavailable [phone] Jasmin Maradiaga PA-C Primary Care Provid er Jasmin Maradiaga PA-C Unavailable + [phone] Carl Farah MD Unavailable [phone] Hector Goode MD Unavailable Reason for Referral * Diagnostic Imaging Ultrasound (Routine) - Pending Review Specialty Diagnoses / Procedures Referred By Contkeisha t Referred To Contact Diagnoses Hematuria, unspecified type Personal history of malignant neoplasm of bladder Vaginal bleeding Procedures US Transvaginal Pelvic Non-OB Gavi Cloud MD [address] [place] [address] Phone: tel: fax: [facility] [id number] [place], [place] [address] [address] Phone: tel: Referral ID Status Reason Start Date Expiration Date V isits Requested Visits Authorized [id number] Pending Review 01/07/2024 01/06/2025 1 1 * Diagnostic Imaging Other (Routine: Next available opening) - Pending Review Specialty Diagnoses / Procedures Referred By Jeremiah johnson Referred To Contact Diagnoses Hematuria, unspecified type Personal history of malignant neoplasm of bladder Vaginal bleeding Gavi Cloud MD [address] [place] [address] Phone: tel: fax: [facility] [id number] [place], [place] [address]Columbiadandy Martinez [address] [place] [address] Phone: tel: Referral ID Status Reason Start Date Expiration Date V isits Requested Visits Authorized [id number] Pending Review 01/07/2024 01/06/2025 1 1 Question Answer Preferred Location: Other (External) - Use Comments Comments Prior authorization is required for MRI/MRA, CT, Dexa Scans and Worker's Compensation cases. [facility] Yumiko [place] [address] [facility] [address] [place] [address] -- appt line [phone] -- fax Other (External) - Use Comments * Consultation (Routine: Next available opening) - Pending Review Specialty Diagnoses / Procedures Referred By Jeremiah johnson Referred To Contact child care teacher Diagnoses Hematuria, unspecified type Personal history of malignant neoplasm of bladder Other fatigue Genital atrophy of female Gavi Cloud MD [address] [place] [address] Phone: tel: fax: [facility] [address] Ayaan Martinez [address] [place] [address] Phone: tel: Referral ID Status Reason Start Date Expiration Date V isits Requested Visits Authorized [id number] Pending Review 01/07/2024 01/06/2025 1 1 Comments Please be aware that coverage of these services is subject to the terms and limitations of your health insurance plan. Call member services at your health plan with any benefit or coverage questions. [facility] [place] [address] [facility] [address] [place] [address] -- appt line [phone] -- fax * Consultation (Routine: Next available opening) - Pending Review Specialty Diagnoses / Procedures Referred By Contac t Referred To Contact Urology Diagnoses Hematuria, unspecified type Personal history of malignant neoplasm of bladder Other fatigue Genital atrophy of female Gavi Cloud MD [address] [place] [address] Phone: tel: fax: [facility] [address] [place] [phone] Phone: tel: Referral ID Status Reason Start Date Expiration Date V isits Requested Visits Authorized [id number] Pending Review 01/07/2024 01/06/2025 1 1 Comments Please be aware that coverage of these services is subject to the terms and limitations of your health insurance plan. Call member services at your health plan with any benefit or coverage questions. [facility] [address] [place] [address] -- appt line [phone] -- fax Reason for Visit * Reason Comments UTI Urinary incontinence , dark color to urine, history of bladder cancer 15 years ago Encounter Details Date Type Department Care Team (Late st Contact Info) Description 01/07/2024 2:45 PM CDT Office Visit [facility] [address] [place] [phone] Gavi Cloud MD [address] [place] [address] Urinary symptom or sign (Primary Dx); Hematuria, unspecified type; Personal history of malignant neoplasm of bladder; Other fatigue; Genital atrophy of female; Vaginal bleeding Social History Tobacco Use Types Packs/Day Years [...] on file 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 Gender Identity Not on file Sexual Orientation Not on file documented as of this encounter Last Filed Vital Signs Vital Sign Reading Time Taken Comments Blood Pressure 126/74 01/07/2024 2:54 PM CDT Pulse 69 01/07/2024 2:54 PM CDT Temperature 36.6 C (97.8 F) 01/07/2024 2:54 PM CDT Respiratory Rate - - Oxygen Saturation 96% 01/07/2024 2:54 PM CDT Inhaled Oxygen Concentration - - Weight - - Height - - Body Mass Index - - documented in this encounter Progress Notes * Gavi Cloud MD - 01/07/2024 2:45 PM CDT Assessment & Plan Problem List Items Addressed This Visit Personal history of malignant neoplasm of bladder Relevant Orders Adult 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 Location (Use POS/Location) Edge Molder 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 Location (Use POS/Location) Radiology Referral (Affiliate Use Only) US Transvaginal Pelvic Non-OB Other Visit Diagnoses Urinary symptom or sign - Primary Relevant Orders URINALYSIS, ROUTINE (BFP) (Completed) URINE CULTURE AEROBIC BACTERIAL ([facility]) Hematuria, unspecified type Relevant Orders URINE CULTURE AEROBIC BACTERIAL ([facility]) Adult 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 Location (Use POS/Location) Edge Molder 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 Location (Use POS/Location) Radiology Referral (Affiliate Use Only) US Transvaginal Pelvic Non-OB Other fatigue Relevant Orders VENOUS COLLECTION (Completed) HEMOGRAM PLATELET DIFF (BFP) (Completed) Comprehensive Metobolic Panel (BFP) Adult 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 Location (Use POS/Location) Edge Molder 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 Location (Use POS/Location) Genital atrophy of female Relevant Orders Adult 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 Location (Use POS/Location) Edge Molder 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 Location (Use POS/Location) Vaginal bleeding Relevant Orders Radiology Referral (Affiliate Use Only) US Transvaginal Pelvic Non-OB 1. Urinary symptom or sign (Primary) Urine checked. - URINALYSIS, ROUTINE (BFP) - URINE CULTURE AEROBIC BACTERIAL ([facility]) 2. Hematuria, unspecified type Hematuria, but other vuong appears ok. Culture pending. Unclear if blood from urine vs vaginal. Will refer to urology due to gross hematuria and history ofbladder cancer. Also should have pelvic ultrasound for possible vaginal bleeding with followup withgynecology. - URINE CULTURE AEROBIC BACTERIAL ([facility]) - Adult 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 Location (Use POS/Location) - Edge Molder 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 Location (Use POS/Location) - Radiology Referral (Affiliate Use Only) - US Transvaginal Pelvic Non-OB 3. Personal history of malignant neoplasm of bladder See above. - Adult 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 Location (Use POS/Location) - Edge Molder 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 Location (Use POS/Location) - Radiology Referral (Affiliate Use Only) - US Transvaginal Pelvic Non-OB 4. Other fatigue Check labs. - VENOUS COLLECTION - HEMOGRAM PLATELET DIFF (BFP) - Comprehensive Metobolic Panel (BFP) - Adult 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 Location (Use POS/Location) - Edge Molder 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 Location (Use POS/Location) 5. 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 - Adult 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 Location (Use POS/Location) - Edge Molder 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 Location (Use POS/Location) 6. Vaginal bleeding See above, unclear if vagina bleeding. - Radiology Referral (Affiliate Use Only) - US Transvaginal Pelvic Non-OB FUTURE APPOINTMENTS: - Follow-up visit as needed. Also should see urology and gynecology. We manage her chronic medical care. No follow-ups on file. Gavi Cloud MD [facility] Subjective Nursing Notes: Estephania Loaiza CMA 01/07/2024 2:58 PM Signed Chief Complaint Patient presents with UTI Urinary incontinence, dark color to urine, history of bladder cancer 15 years ago Pre-visit Screening: Immunizations: not up to date - Tdap and shingrix at pharmacy Colonoscopy: UTD Mammogram: UTD Asthma Action Test/Plan: NA PHQ9: nA GAD7: NA Questioned patient about current smoking habits Pt. has never smoked. Ok to leave detailed message on voice mail for today's visit only Yes, phone # [phone] Griselda Lai is a 79 year old female who presents to clinic today for the following health issues HPI Dark urine for a little less than a week but just now seemed ok. No fevers and no abd pain, no dysuria. Doesn't think there is blood from vagina. There is blood in her pad. Is a different color. Has had blood on her pad, just today. History bladder cancer so she was concerned. Is also feeling totally exhausted. Review of Systems Constitutional, HEENT, cardiovascular, pulmonary, gi and gu systems are negative, except as otherwise noted. Objective BP 126/74 (BP Location: Right arm, Patient Position: Sitting, Cuff Size: Adult Large) Pulse 69 Temp 97.8 ??F (36.6 ??C) (Temporal) SpO2 96% There is no height or weight on file to calculate BMI. Physical Exam GENERAL: alert and no distress ABDOMEN: soft, nontender, no hepatosplenomegaly, no masses and bowel sounds normal MS: no gross musculoskeletal defects noted, no edema : external genitalia atrophic and with tissue degradation in groin areas, speculum exam done, scant clear vaginal discharge, no cervical or vaginal bleeding noted on swab Blood on pad in patient's underware Medical staff present to assist with pelvic exam Results for orders placed or performed in visit on 01/07/24 URINALYSIS, ROUTINE (BFP) Status: Abnormal Result Value Ref Range Color Urine Yellow Appearance Urine Slightly Cloudy (A) Glucose Urine Neg mg/dL Bilirubin Urine Neg Ketones Urine Neg mg/dL Specific Challis Urine 1.020 Blood Urine Large (A) pH Urine 5.5 pH Protein Urine neg neg - neg mg/dL Urobilinogen Urine 0.2 EU/dL Nitrite Urine Neg Leukocytes neg Wbc, Urine Micro neg neg - 2 RBC Micro Urine 25-30 (A) neg - 2 EP/HPF neg Bacteria Urine neg neg - neg Casts/LPF neg Miscellaneous neg HEMOGRAM PLATELET DIFF (BFP) Status: Abnormal Result Value Ref Range WBC 5.5 4.0 - 11 10*9/L RBC Count 3.58 (A) 3.8 - 5.2 10*12/L Hemoglobin 12.8 11.7 - 15.7 g/dL Hematocrit 37.9 35.0 - 47.0 % MCV 105.9 (A) 78 - 100 fL MCH 35.8 (A) 26 - 33 pg MCHC 33.8 31 - 36 g/dL Platelet Count 144 (A) 150 - 375 10^9/L % Granulocytes 61.2 % % Lymphocytes 29.6 % % Monocytes 9.2 % Comprehensive Metobolic Panel (BFP) Status: Abnormal Result Value Ref Range Carbon Dioxide 25.3 20 - 32 mmol/L Creatinine 1.18 0.60 - 1.30 mg/dL Glucose 110 (A) 60 - 99 mg/dL Sodium 140.7 135 - 146 mmol/L Potassium 4.17 3.5 - 5.3 mmol/L Chloride 105.9 98 - 110 mmol/L Protein Total 6.3 6.1 - 8.1 g/dL Albumin 4.6 3.6 - 5.1 g/dL Alkaline Phosphatase 38 33 - 130 U/L ALT 30 0 - 32 U/L AST 37 (A) 0 - 35 U/L Bilirubin Total 1.0 0.2 - 1.2 mg/dL Urea Nitrogen 22 7 - 25 mg/dL Calcium 10.1 8.6 - 10.3 mg/dL BUN/Creatinine Ratio 19 6 - 32 documented in this encounter Nursing Notes * Estephania Loaiza CMA - 01/07/2024 2:45 PM CDT Chief Complaint Patient presents with UTI Urinary incontinence, dark color to urine, history of bladder cancer 15 years ago Pre-visit Screening: Immunizations: not up to date - Tdap and shingrix at pharmacy Colonoscopy: UTD Mammogram: UTD Asthma Action Test/Plan: NA PHQ9: nA GAD7: NA Questioned patient about current smoking habits Pt. has never smoked. Ok to leave detailed message on voice mail for today's visit only Yes, phone # [phone] documented in this encounter Plan of Treatment Upcoming Encounters Date Type Department Care Team (Late st Contact Info) Description 06/14/2024 1:00 PM CDT Office Visit [facility] [address] [place] [address] Hector Goode MD [address] [place] [address] [id number] [place], [place] [id number] Scheduled Orders Name Type Priority Associated Diagnoses Orde r Schedule US Transvaginal Pelvic Non-OB Imaging Routine Hematuria, unspecified type Personal history of malignant neoplasm of bladder Vaginal bleeding Ordered: 01/07/2024 Scheduled Referrals Name Type Priority Associated Diagnoses Orde r Schedule Adult Urology 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 Location (Use POS/Location) Referral Routine: Next available opening Hematuria, unspecified type Personal history of malignant neoplasm of bladder Other fatigue Genital atrophy of female Ordered: 01/07/2024 Radiology Referral (Affiliate Use Only) Referral Routine: Next available opening Hematuria, unspecified type Personal history of malignant neoplasm of bladder Vaginal bleeding Ordered: 01/07/2024 documented as of this encounter Procedures Procedure Name Priority Date/Time Associated Diagnosis Comments OR PELVIC EXAMINATION Routine 01/07/2024 5:39 PM CDT Hematuria, unspecified type Genital atrophy of female Vaginal bleeding URINE CULTURE AEROBIC BACTERIAL ([facility]) Routine 01/07/2024 3:21 PM CDT Urinary symptom or sign Hematuria, unspecified type OR COLLECTION VENOUS BLOOD VENIPUNCTURE Routine 01/07/2024 3:08 PM CDT Other fatigue URINALYSIS, ROUTINE (BFP) Routine 01/07/2024 Urinary symptom or sign HEMOGRAM PLATELET DIFF (BFP) Routine 01/07/2024 Other fatigue COMPREHENSIVE METABOLIC PANEL (BFP) Routine 01/07/2024 Other fatigue documented in this encounter Results * URINE CULTURE AEROBIC BACTERIAL ([facility]) (01/07/2024 3:21 PM CDT) Urine Voided Culture SEE NOTE [facility] Comment: CULTURE, URINE, ROUTINE Micro Number: [id number] Test Status: Final Specimen Source: Urine Specimen Quality: Adequate Result: No Growth Urine 01/07/2024 3:21 PM CDT 01/08/2024 6:22 AM CDT Narrative Resulting Agency Comment Performing Organization Information: [facility] [employer] [employer] [address] [place] [address] Serafin Tse us Gavi Cloud MD LAB - NON-BEAKER NON-BLOOD F inal Result [facility] [address] [phone] * (ABNORMAL) Comprehensive Metobolic Panel (BFP) (01/07/2024) [...] LAB - NON-BEAKER BLOOD LABS Final Result [facility] [address] [place] [address] [place] [phone] * (ABNORMAL) HEMOGRAM PLATELET DIFF (BFP) (01/07/2024) [...] Blood 01/07/2024 Gavi Cloud MD LAB - NON-BEAKER BLOOD LABS Final Result Performing Organization Address [facility] Co de Phone Number [facility] [address] [phone] * (ABNORMAL) URINALYSIS, ROUTINE (BFP) (01/07/2024) Color Urine Yellow [facility] Appearance Urine Slightly Cloudy(A) [facility] Glucose Urine Neg mg/dL [facility] Bilirubin Urine Neg [facility] Ketones Urine Neg mg/dL [facility] Specific Challis Urine 1.020 [facility] Blood Urine Large(A) [...] NON-BLOOD F inal Result Performing Organization Address [facility] Co de Phone Number [facility] [address] [phone] documented in this encounter Visit Diagnoses Diagnosis Urinary symptom or sign- Primary Hematuria, unspecified type Personal history of malignant neoplasm of bladder Other fatigue Genital atrophy of female Other specified symptom associated with female genital organs Vaginal bleeding Other specified noninflammatory disorder of vagina documented in this encounter Additional Health Concerns Assessment Noted Time PHQ-9 Depression Total Score: 8 04/30/19 24 2:24 PM BANDER HAND documented as of this encounter Care Teams Remote Sensing Research Scientist Relationship Specialty Start Date End Date Jasmin Maradiaga PA-C [address] [address] PCP - General Family Medicine 03/16/21 Hector Goode MD [address] [address] Neurology 05/01/17 John Cancino MD [address] [place] [address] Family Medicine - Sports Medicine 07/30/17 Jasmin Maradiaga PA-C [address] [address] Assigned PCP 10/20/21 Carl Farah MD [address] [place] [phone] Assigned Heart and Vascular Provider 05/18/22 Hector Goode MD [address] [place] [address] Assigned Neuroscience Provider 07/01/23 documented as of this encounter
--- OUTSIDE RECORDS SUMMARY | 2024-02-01 08:23 | XMS_ITS | Encounter Summary ---
Author Organization [place] Address [facility] [place] [address] Care Team Providers Care Bun Panner Name Role Phone Hector Goode MD Unavailable John Cancino MD Unavailable [phone] Jasmin Maradiaga PA-C Primary Care Provid er Jasmin Maradiaga PA-C Unavailable + [phone] Itzel Polk APRN, CNP Unavailable Unavailable Carl Farah MD Unavailable [phone] Hector Goode MD Unavailable Reason for Visit * Reason Onset Date Comments Orders 12/19/2021 Encounter Details Date Type Department Care Team (Late st Contact Info) Description 12/19/2021 Telephone [facility] [place] [address] [place] [address] Carl Farah MD [address] [facility] [address] [place] [address] Orders Social History Tobacco Use Types Packs/Day Years Used Date Smoking Tobacco: Never Smokeless Tobacco: Never Alcohol Use Standard Drinks/Week Comments No 0 (1 standard drink = 0.6 oz pur e alcohol) Overall Financial Resource Strain (CARDIA) Ryleye r Date Recorded How hard is it [...] on file 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 [facility] documented in this encounter Plan of Treatment Upcoming Encounters Date Type Department Care Team (Late st Contact Info) Description 06/14/2024 1:00 PM CDT Office Visit [facility] Neurology Clinic [address] 3[address] [place] [address] Hector Goode MD [address] [place] [address] [id number] [place] [address] documented as of this encounter Visit Diagnoses Not on filedocumented in this encounter Care Teams Bun Panner Relationship Specialty Start Date End Date Jasmin Maradiaga PA-C [address] , [address] [address] PCP - General Family Medicine 03/16/21 Hector Goode MD [address] [place] [address] Neurology 05/01/17 John Cancino MD [address] [place] [address] Family Medicine - Sports Medicine 07/30/17 Jasmin Maradiaga PA-C [address] , [address] [address] Assigned PCP 10/20/21 Itzel Polk APRN CNP NO INFO AVAILABLE 12/27/2021 Assigned Heart and Vascular Provider 12/15/21 05/17/22 Carl Farah MD [address] [place] [address] Assigned Heart and Vascular Provider 05/18/22 Hector Goode MD [address] [place] [address] Assigned Neuroscience Provider 07/01/23 documented as of this encounter
--- OUTSIDE RECORDS SUMMARY | 2024-02-01 08:23 | XMS_ITS | Encounter Summary ---
Author Organization [facility] Address [address] [place] [address] Care Team Providers Care Tongue Presser Name Role Phone Roslyn Sandoval MD Primary Care Provider Unav ailable Hector Goode MD Unavailable John Cancino MD Unavailable [phone] Roslyn Sandoval MD Unavailable UnavailKorin Cash MD Unavailable +- 03 Korin Lamb MD Primary Care Provider [phone] Carl Farah MD Unavailable [phone] Roslyn Sandoval MD Unavailable UnavailKorin Cash MD Unavailable +- 03 Gavi Cloud MD Unavailable +[phone] Jasmin Maradiaga PA-C Unavailable + Itzel Polk APRN REGENERATION OPERATOR Unavailable Unavailable Carl Farah MD Unavailable +[phone] Jasmin Maradiaga PA-C Primary Care Provid er Gavi Cloud MD Unavailable +[phone] Jasmin Maradiaga PA-C Unavailable + [phone] Itzel Polk APRN REGENERATION OPERATOR Unavailable Unavailable Carl Farah MD Unavailable +[phone] Hector Goode MD Unavailable Encounter Details Date Type Department Care Team (Late st Contact Info) Description 12/10/2007 Office Visit-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 DATE: 12/10/2007 GRISELDA LAI DATE OF : 1945 AGE: [age] years old Referring Physician: ROSLYN SANDOVAL Referring Clinic: [facility] CURRENT DIAGNOSES 1. 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 - Congestive Heart Failure, - Congestive Heart Failure 3. - Bundle Branch Block-left, 426.3 4. - Hypercholesterolemia, 272.0 5. - Abnormal Test-Abnormal Exercise Stress Test, 794.30 6. - Congestive Heart Failure, 428.0 ALLERGIES hydrocortisone, Hot sob Sulfa MEDICATIONS (prior to changes made today) 1. Gleevec 100mg, 4 p.o. q.d. 2. Zoloft 50 mg, 1 p.o. q.d. 3. Spironolactone 25 mg, 1 p.o. qAM 4. Carvedilol 12.5mg, 1 p.o. b.i.d. 5. Avapro 150 mg, 1/2 tab qAM 6. Digoxin 0.125 mg, 1 p.o. qAM 7. Lipitor 10 mg, 1 p.o. qAM 8. Potassium Chloride 10 mEq, 1 p.o. qAM 9. Lasix 40 Mg, 1/2 tablet daily; with extra 1/2 tab prn weight up 2-3 pounds in a day or edema increase CHIEF COMPLAINTS Follow up visit, review labs HISTORY OF PRESENT ILLNESS Griselda Lai returns for followup of her lab tests. She has an idiopathic cardiomyopathy. Her echocardiogram earlier this year showed an ejection fraction improved to 45-50%. She has gained some weight back again, unfortunately, but overall she states that she is feeling better and the original problem with the shortness of breath has gotten better. Today sodium is 143, potassium 3.6, creatinine 1.0, glucose 107, triglycerides 177, HDL 46, LDL 70, ALT 28. Although her lipid numbers are not quite at goal, they are better than the previous set and she does not have coronary disease. I think continuing to work with diet and exercise, which is she working on, will be useful. PAST HISTORY Past Medical Illnesses: IBS, depression, sarcoid, sleep apnea, CML, TIA, vertebral art. narrowing (keep SBP up a bit), asthma, CPAP machine, MRA/MRI of head at [facility] coumadin stopped 02-12, hyperlipidemia Past Cardiac Illnesses: [...] Residence - lives alone; Place of - [place]; Spouse's Occupation - ; REVIEW OF SYSTEMS GENERAL weight gain, 14lbs, fatigue, decreased energy INTEGUMENTARY denies any change in hair or nails, rashes, or skin lesions. EYES wears eye glasses/contact lenses, glaucoma, cataracts EARS, NOSE, THROAT, MOUTH denies any hearing loss, epistaxis, hoarseness or difficulty speaking. RESPIRATORY dyspnea at rest, dyspnea with exertion CARDIOVASCULAR edema of the legs ABDOMINAL denies change in bowel habits, dyspepsia, ulcer disease, hematochezia or melena. GENITOURINARY-FEMALE positive for nocturia, post menopausal without hormonal replacement MUSCULOSKELETAL arthritis of the back, knee surgery artho 10/14 NEUROLOGICAL tia in the past, no further neuro events-follows with neurology PSYCHIATRIC denies any history of depression, substance abuse or change in cognitive functions. ENDOCRINE hyperlipidemia HEMATOLOGICAL/IMMUNOLOGIC easy bruising, medication allergies IMPRESSION/PLAN I am not going to change her medications at this point. I have again tried to keep her on the lowest dose of Lasix possible. Her potassium is low normal. We will see her back again in one year at which time we will do electrolytes and lipids. I do not think we need another echocardiogram for at least another year. TODAYS ORDERS 1. Lipid profile/ALT 1 day 2. BMP 1 day 3. F/U with Carl Farah MD 1 year 4. Lipid profile/ALT 1 year 5. BMP 1 year Carl aFrah M.D. documented in this encounter Plan of Treatment Upcoming Encounters Date Type Department Care Team ([facility] st Contact Info) Description 06/14/2024 1:00 PM CDT Office Visit [facility] [address] 3rd [place] [phone] Hector Goode MD [address] [place] [address] [id number] [place] [address] documented as of this encounter Visit Diagnoses Not on filedocumented in this encounter Care Teams Tongue Presser Relationship Specialty Start Date End Date Roslyn Sandoval MD NO INFO AVAILABLE 10/03/22 PCP - General 03/27/99 08/11/19 Korin Lamb MD [address] [address] PCP - General Family Practice 08/12/19 03/15/21 Jasmin Maradaiga PA-C [address] [address] PCP - General Family Medicine 03/16/21 Hector Goode MD [address] [facility] [address] [id number] [place] [address] Neurology 05/01/17 John Cancino MD [address] [facility] [id number] [place] [address] Family Medicine - Sports Medicine 07/30/17 Roslyn Sandoval MD NO INFO AVAILABLE 10/03/22 Assigned PCP 02/08/18 06/05/19 Korin Lamb MD [address] , [address] [address] Assigned PCP 06/06/19 04/29/20 Carl Farah MD [address] [facility] [address] [place] [phone] Assigned Heart and Vascular Provider 12/31/19 12/16/20 Roslyn Sandoval MD NO INFO AVAILABLE 10/03/22 Assigned PCP 04/30/20 05/06/20 Korin Lamb MD [address] , [address] [address] Assigned PCP 05/07/20 05/28/20 Gavi Cloud MD [address] [place] [address] Assigned PCP 05/29/20 01/06/21 Jasmin Maradiaga PA-C [address] , [address] [address] Assigned PCP 01/07/21 09/28/21 Itzel Polk APRN REGENERATION OPERATOR NO INFO AVAILABLE 12/27/2021 Assigned Heart and Vascular Provider 12/17/20 02/17/21 Carl Farah MD [address] [place] [phone] Assigned Heart and Vascular Provider 02/18/21 12/14/21 Gavi Cloud MD [address] [place] [address] Assigned PCP 09/29/21 10/19/21 Jasmin Maradiaga PA-C [address] [place] [address] Assigned PCP 10/20/21 Itzel Polk APRN REGENERATION OPERATOR NO INFO AVAILABLE 12/27/2021 Assigned Heart and Vascular Provider 12/15/21 05/17/22 Carl Farah MD [address] [place] [phone] Assigned Heart and Vascular Provider 05/18/22 Hector Goode MD [address] [id number] [place] [address] Assigned Neuroscience Provider 07/01/23 documented as of this encounter
--- OUTSIDE RECORDS SUMMARY | 2024-02-01 08:23 | XMS_ITS | Encounter Summary ---
Author Organization [facility] Address [address] [place] [address] Care Team Providers Care Title 1 Tutor Name Role Phone Roslyn Sandoval MD Primary Care Provider Unav ailable Hector Goode MD Unavailable John Cancino MD Unavailable [phone] Roslyn Sandoval MD Unavailable UnavailKorin Cash MD Unavailable +- 03 Korin Lamb MD Primary Care Provider [phone] Carl Farah MD Unavailable [phone] Roslyn Sandoval MD Unavailable UnavailKorin Cash MD Unavailable +- 03 Gavi Cloud MD Unavailable +[phone] Jasmin Maradiaga PA-C Unavailable + Itzel oPlk APRN SVP CHIEF MARKETING OFFICER Unavailable Unavailable Carl Farah MD Unavailable [phone] Jasmin Maradiaga PA-C Primary Care Provid er Gavi Cloud MD Unavailable +[phone] Jasmin Maradiaga PA-C Unavailable + [phone] Itzel Polk APRN SVP CHIEF MARKETING OFFICER Unavailable Unavailable Carl Farah MD Unavailable [phone] Hector Goode MD Unavailable Encounter Details Date Type Department Care Team (Late st Contact Info) Description 02/16/2010 Office Visit-[facility] [place] [address] [facility] [address] [place] [phone] Carl Farah MD [address] [facility] [address] [place] [phone] Social History Tobacco Use Types Packs/Day Years Used Date Smoking Tobacco: Never Alcohol Use Standard Drinks/Week Comments No 0 (1 standard drink = 0.6 oz pur e alcohol) Comments No Sex and Gender Information Value Date Recorded Sex Assigned at Not on file 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 DATE: 02/16/2010 GRISELDA LAI DATE OF : 1945 AGE: [age] years old Referring Physician: ROSLYN SANDOVAL Referring Clinic: [facility] CURRENT DIAGNOSES 1. - Hypercholesterolemia, 272.0 2. Myalgia And Myositis Unspecified, 729.1 3. - Abnormal Test-Abnormal Exercise Stress Test, 794.30 4. - Congestive Heart Failure, - Congestive Heart Failure 5. - Bundle Branch Block-left, 426.3 6. - Congestive Heart Failure, 428.0 7. - Cardiomyopathy Idiopathic, 425.4 ALLERGIES hydrocortisone, Hot sob Sulfonamides MEDICATIONS (prior to changes made today) 1. Potassium Chloride 10 Meq Tablet Sustained Release, 1 p.o. qAM 2. Spironolactone 25 Mg Tablet, 1 p.o. qAM 3. Gleevec 100 mg Tablet, 4 p.o. daily 4. Zoloft 50 mg Tablet, 1 p.o. daily 5. Crestor 5 mg Tablet, 1 p.o. daily 6. Lasix 40 mg Tablet, 1/2 tablet daily; with extra 1/2 tab prn weight up 2-3 pounds in a day or edema increase 7. Digoxin 125 mcg Tablet, 1 p.o. daily 8. Avapro 150 Mg Tablet, 1/2 tab qAM 9. Carvedilol 12.5 Mg Tablet, 1 p.o. twice daily CHIEF COMPLAINTS Cardiac Assessment, follow up lipids HISTORY OF PRESENT ILLNESS Griselda Lai is a delightful 65-year-old woman. She has an idiopathic dilated cardiomyopathy. Herecho last time showed ejection fraction up to 50%, no valvular disease. Of note, her son had a cardiomyopathy and I now find out that the family has FSH muscular dystrophy. As far as I know there is no direct link with FSH muscular dystrophy and a dilated cardiomyopathy, although there are a few reports of hypertrophic cardiomyopathy, but this is not what she has. In addition, one of her sons I believe does have a daughter with cardiomyopathy, therefore, there is no doubt there is some genetic issue going on her. The patient herself has shortness of breath, whether it is due to lung, heart or decreased muscle strength with the muscular dystrophy is unclear. She does report going to the [facility] and having breathing tests, but no specific action was necessary. Laboratory tests were done today and they are actually quite good with sodium 141, potassium 4, blood urea nitrogen 14, creatinine 1, glucose minimally elevated at 107. Her lipids, although not quite at goal are improved. HDL 47, LDL 67, triglycerides 149, total cholesterol 144, ALT 19. PAST HISTORY Past Medical Illnesses: IBS, depression, sarcoid, sleep apnea, CML, TIA, vertebral art. 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 On examination her blood pressure is well controlled. Lungs are clear. Cardiac examination reveals regular rhythm and rate and she has trace ankle edema. I will see her back in one year, at which time I plan on doing just the above blood tests unless Dr. Sandoval does them before that time and I do not think she needs another echo for a couple years. Total consult time was 15 minutes. TODAYS ORDERS 1. Lipid profile/ALT 1 day 2. BMP Today 3. F/U with Carl Farah MD 1 year 4. Lipid profile/ALT 1 year 5. BMP 1 year Carl Farah M.D. documented in this encounter Plan of Treatment Upcoming Encounters Date Type Department Care Team (Late st Contact Info) Description 06/14/2024 1:00 PM CDT Office Visit [facility] [address] 3rd [place] [phone] Hector Goode MD [address] [place] [id number] documented as of this encounter Visit Diagnoses Not on filedocumented in this encounter Care Teams Title 1 Tutor Relationship Specialty Start Date End Date Roslyn Sandoval MD NO INFO AVAILABLE 10/03/22 PCP - General 03/27/99 08/11/19 Korin Lamb MD [address] [place] [address] PCP - General Family Practice 08/12/19 03/15/21 Jasmin Maradiaga PA-C [address] [address] PCP - General Family Medicine 03/16/21 Hector Goode MD [address] [place] [address] Neurology 05/01/17 John Cancino MD [address] [place] [id number] Family Medicine - Sports Medicine 07/30/17 Roslyn Sandoval MD NO INFO AVAILABLE 10/03/22 Assigned PCP 02/08/18 06/05/19 Korin Lamb MD [address] [place] [address] Assigned PCP 06/06/19 04/29/20 Carl Farah MD [address] [facility] [place] [phone] Assigned Heart and Vascular Provider 12/31/19 12/16/20 Roslyn Sandoval MD NO INFO AVAILABLE 10/03/22 Assigned PCP 04/30/20 05/06/20 Korin Lamb MD [address] [place] [address] Assigned PCP 05/07/20 05/28/20 Gavi Cloud MD [address] [place] [address] Assigned PCP 05/29/20 01/06/21 Jasmin Maradiaga PA-C [address] [place] [address] Assigned PCP 01/07/21 09/28/21 Itzel Polk APRN SVP CHIEF MARKETING OFFICER NO INFO AVAILABLE 12/27/2021 Assigned Heart and Vascular Provider 12/17/20 02/17/21 Carl Farah MD [address] [place] [phone] Assigned Heart and Vascular Provider 02/18/21 12/14/21 Gavi Cloud MD [address] [place] [address] Assigned PCP 09/29/21 10/19/21 Jasmin Maradiaga PA-C [address] [place] [address] Assigned PCP 10/20/21 Itzel Polk APRN SVP CHIEF MARKETING OFFICER NO INFO AVAILABLE 12/27/2021 Assigned Heart and Vascular Provider 12/15/21 05/17/22 Carl Farah MD [address] [place] [phone] Assigned Heart and Vascular Provider 05/18/22 Hector Goode MD [address] [facility] [id number] [place] [address] Assigned Neuroscience Provider 07/01/23 documented as of this encounter
--- OUTSIDE RECORDS SUMMARY | 2024-02-01 08:23 | XMS_ITS | Encounter Summary ---
Author Organization [facility] Address [address] [place] [address] Care Team Providers Care Assistant Director Of Public Works Name Role Phone Roslyn Sandoval MD Primary Care Provider Unav ailable Hector Goode MD Unavailable John Cancino MD Unavailable [phone] Roslyn Sanodval MD Unavailable UnavailKorin Cash MD Unavailable +- 03 Korin Lamb MD Primary Care Provider [phone] Carl Farah MD Unavailable [phone] Roslyn Sandoval MD Unavailable UnavailKorin Cash MD Unavailable +- 03 Gavi Cloud MD Unavailable +[phone] Jasmin Maradiaga PA-C Unavailable + Itzel Polk APRN THERMOSTATIC CONTROLS SUPERVISOR Unavailable Unavailable Carl Farah MD Unavailable +[phone] Jasmin Maradiaga PA-C Primary Care Provid er Gavi Cloud MD Unavailable +[phone] Jasmin Maradiaga PA-C Unavailable + [phone] Itzel Polk APRN THERMOSTATIC CONTROLS SUPERVISOR Unavailable Unavailable Carl Farah MD Unavailable +[phone] Hector Goode MD Unavailable Encounter Details Date Type Department Care Team (Late st Contact Info) Description 03/19/2011 Office Visit-[facility] [place] [address] [facility] [address] [place] [phone] Carl Farah MD [address] [facility] [address] [place] [phone] Social History Tobacco Use Types Packs/Day Years Used Date Smoking Tobacco: Never Smokeless Tobacco: Never Alcohol Use Standard Drinks/Week Comments No 0 (1 standard drink = 0.6 oz pur e alcohol) Comments No Sex and Gender Information Value Date Recorded Sex Assigned at Not on file Legal Sex Female 2:58 AM SOCIAL SECURITY ASSESSOR Gender Identity Not on file Sexual Orientation Not on file documented as of this encounter Progress Notes * Carl Farah MD - 03/26/2011 11:45 AM CST Progress Note Created by: Carl Farah M.D. DATE: 03/19/2011 GRISELDA LAI DATE OF : 1945 AGE: [age] years old Referring Physician: ROSLYN SANDOVAL Referring Clinic: [facility] CURRENT DIAGNOSES 1. - Hypercholesterolemia, 272.0 2. 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 Myalgia And Myositis Unspecified, 729.1 4. - Congestive Heart Failure, 428.0 5. - Bundle Branch Block-left, 426.3 6. - Abnormal Test-Abnormal Exercise Stress Test, 794.30 7. - Congestive Heart Failure, - Congestive Heart Failure ALLERGIES hydrocortisone, Hot sob Sulfonamides MEDICATIONS (prior to changes made today) 1. potassium chloride 10 mEq Tablet Extended Release, 1 p.o. qAM 2. spironolactone 25 mg Tablet, 1 p.o. qAM 3. Zoloft 50 mg Tablet, 1 p.o. daily 4. amoxicillin 875 mg Tablet, 1 p.o. twice daily 5. Avapro 150 mg Tablet, 1/2 tab qAM 6. carvedilol 12.5 mg Tablet, 1 p.o. twice daily 7. codeine-guaifenesin 10-100 mg/5 mL Liquid, as needed for cough 8. Crestor 5 mg Tablet, 1 p.o. daily 9. furosemide 40 mg Tablet, 1/2 tab daily, aditional 1/2 tab prn weight gain 10. Gleevec 400 mg Tablet, 1 p.o. daily CHIEF COMPLAINTS Review lab results HISTORY OF PRESENT ILLNESS Ms. Lai is a delightful 66-year-old woman. She has idiopathic cardiomyopathy, but of note thereis a question if she has some form of muscular dystrophy and her son has a form of FSHD, muscular dystrophy and he also has a cardiomyopathy. I suspect that there is a genetic component here. Her ejection fraction on medication is now up to 49% and has remained stable. Her echo was done a year ago.The patient states that she actually feels quite well. She has trivial ankle edema. She has underlying left bundle branch block. No chest pain, no syncope and no undue shortness of breath. She asked about reducing her medicines. Since her ejection fraction is now up to 49% (previously was in the 30% range), I think she can come off the digoxin. We will keep the other medicines as they are. We briefly talked about Crestor. She has a low HDL and therefore I think Crestor is actually a bit better than the Zocor and Lipitor for that, but if cost becomes an overwhelming issue, we could try the Zocor or Lipitor. She also notes fatigue. The only cardiac medicine she is on that might cause fatigue is the carvedilol, otherwise I think the issue would be if it could be related to her sleep apnea, her CML or her Zoloft. Laboratory work was done today and it is all quite reasonable. Sodium 140, potassium 4, blood urea nitrogen 14, creatinine 0.9, glucose upper normal at 105. Triglycerides 121, tot al cholesterol 125, HDL is 42 and it has always been in the 40 range, LDL is 59 with a goal of 100 or less. ALT is 26. PAST HISTORY Past Medical Illnesses: IBS, depression, sarcoid, sleep apnea, CML, TIA, vertebral art. 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 EYES no blurred vision, eye pain, or discharge. EARS, NOSE, THROAT, MOUTH denies any hearing loss, epistaxis, hoarseness or difficulty speaking., URI infection currently, onantibiotics RESPIRATORY dyspnea with exertion CARDIOVASCULAR per HPI, edema of the legs ABDOMINAL denies ulcer disease, hematochezia or melena. MUSCULOSKELETAL left arm weakness NEUROLOGICAL denies any history of recurrent strokes, headaches, TIA, or seizure disorder. PSYCHIATRIC denies any history of depression, substance abuse or change in cognitive functions. ENDOCRINE denies any history of thyroid disease or diabetes mellitus. HEMATOLOGICAL/IMMUNOLOGIC medication allergies PHYSICAL EXAMINATION VITAL SIGNS: Blood Pressure: 130/60Sitting, Right arm, large cuff Pulse- 78.00/min. Weight- 262.00 lbs. Height- 66.00 CONSTITUTIONAL cooperative, alert and oriented,well developed, well [...] time, person and place. MEDICATIONS UPDATED/STARTED TODAY: amoxicillin 875 mg Tablet, 1 p.o. twice daily, #0 (Zero) Avapro 150 mg Tablet, 1/2 tab qAM, #45 carvedilol 12.5 mg Tablet, 1 p.o. twice daily, #180 codeine-guaifenesin 10-100 mg/5 mL Liquid, as needed for cough, #0 (Zero) Crestor 5 mg Tablet, 1 p.o. daily, #90 furosemide 40 mg Tablet, 1/2 tab daily, aditional 1/2 tab prn weight gain, #90 (Ninety) Gleevec 400mg Tablet, 1 p.o. daily, 0 potassium chloride 10 mEq Tablet Extended Release, 1 p.o. qAM, #90 spironolactone 25 mg Tablet, 1 p.o. qAM, #90 MEDICATIONS REFILLED/STOPPED TODAY: potassium chloride 10 mEq Tablet Extended Release 1 p.o. qAM #90 Refill, spironolactone 25 mg Tablet 1 p.o. qAM #90 Refill, Avapro 150 mg Tablet 1/2 tab qAM #45 Refill, carvedilol 12.5 mg Tablet 1 p.o. twice daily #180 Refill, Crestor 5 Mg Tablet 1 p.o. daily #90 Refill, Digoxin 125 Mcg Tablet 1 p.o. daily #90 Physician Order, furosemide 40 mg Tablet 1/2 tab daily, aditional 1/2 tab prn weight gain #90 (Ninety) Refill and Gleevec 100 mg Tablet 4 p.o. daily 0 Directions Changed-No Abbrvs IMPRESSIONS/PLAN At this time I have made no changes except dropping the digoxin. We will see her back in a year, dolaboratory work and an echocardiogram to follow her ejection fraction, since that will be two yearsfrom the last echo. She may wish to follow-up with Dr. Sandoval regarding if her continuous positiveairway pressure needs to be adjusted, etc. This was a 25 minute visit, greater than 50% counseling. TODAYS ORDERS 1. Lipid profile/ALT 1 day 2. BMP 1 day 3. F/U with Carl Farah MD 1 year 4. Lipid profile/ALT 1 year 5. BMP 1 year 6. 2D, color flow, doppler 1 year Carl Farah M.D. documented in this encounter Plan of Treatment Upcoming Encounters Date Type Department Care Team (Late st Contact Info) Description 06/14/2024 1:00 PM CDT Office Visit [facility] [address] 3rd [place] [address] Hector Goode MD [address] [place] [address] [id number] [place] [address] documented as of this encounter Visit Diagnoses Not on filedocumented in this encounter Care Teams Assistant Director Of Public Works Relationship Specialty Start Date End Date Roslyn Sandoval MD NO INFO AVAILABLE 10/03/22 PCP - General 03/27/99 08/11/19 Korin Lamb MD [address] [id number] PCP - General Family Practice 08/12/19 03/15/21 Jasmin Maradiaga PA-C [address] [address] PCP - General Family Medicine 03/16/21 Hector Goode MD [address] [place] [address] Neurology 05/01/17 John Cancino MD [address] [address] Family Medicine - Sports Medicine 07/30/17 Roslyn Sandoval MD NO INFO AVAILABLE 10/03/22 Assigned PCP 02/08/18 06/05/19 Korin Lamb MD [address] [address] Assigned PCP 06/06/19 04/29/20 Carl Farah MD [address] [facility] [address] [place] [address] Assigned Heart and Vascular Provider 12/31/19 12/16/20 Roslyn Sandoval MD NO INFO AVAILABLE 10/03/22 Assigned PCP 04/30/20 05/06/20 Korin Lamb MD [address] [address] Assigned PCP 05/07/20 05/28/20 Gavi Cloud MD [address] [place] [address] Assigned PCP 05/29/20 01/06/21 Jasmin Maradiaga PA-C [address] , [address] [address] Assigned PCP 01/07/21 09/28/21 Itzel Polk APRN THERMOSTATIC CONTROLS SUPERVISOR NO INFO AVAILABLE 12/27/2021 Assigned Heart and Vascular Provider 12/17/20 02/17/21 Carl Farah MD [address] [place] [address] Assigned Heart and Vascular Provider 02/18/21 12/14/21 Gavi Cloud MD [address] [place] [address] Assigned PCP 09/29/21 10/19/21 Jasmin Maradiaga PA-C [address] , [address] [address] Assigned PCP 10/20/21 Itzel Polk APRN THERMOSTATIC CONTROLS SUPERVISOR NO INFO AVAILABLE 12/27/2021 Assigned Heart and Vascular Provider 12/15/21 05/17/22 Carl Farah MD [address] [place] [phone] Assigned Heart and Vascular Provider 05/18/22 Hector Goode MD [address] [place], [place] [id number], [place] [address] (work) Assigned Neuroscience Provider 07/01/23 documented as of this encounter
--- OUTSIDE RECORDS SUMMARY | 2024-02-01 08:23 | XMS_ITS | Encounter Summary ---
Author Organization [facility] Address [address] [place] [address] Care Team Providers Care Gluing Machine Adjuster Name Role Phone Roslyn Sandoval MD Primary Care Provider Unav ailable Hector Goode MD Unavailable John Cancino MD Unavailable [phone] Roslyn Sandoval MD Unavailable UnavailKorin Cash MD Unavailable +- 03 Korin Lamb MD Primary Care Provider [phone] Carl Farah MD Unavailable [phone] Roslyn Sandoval MD Unavailable UnavailKorin Cash MD Unavailable +- 03 Gavi Cloud MD Unavailable +[phone] Jasmin Maradiaga PA-C Unavailable + Itzel Polk APRN MOID MIDDLE SCHOOL TEACHER Unavailable Unavailable Carl Farah MD Unavailable +[phone] Jasmin Maradiaga PA-C Primary Care Provid er Gavi Cloud MD Unavailable +[phone] Jasmin Maradiaga PA-C Unavailable + [phone] Itzel Polk APRN MOID MIDDLE SCHOOL TEACHER Unavailable Unavailable Carl Farah MD Unavailable [phone] Hector Goode MD Unavailable Reason for Visit * Reason Comments Medication Refill Encounter Details Date Type Department Care Team (Late Contact Info) Description 10/25/2015 Refill [facility] [address] [place] [address] Roslyn Sandoval MD NO INFO AVAILABLE 10/03/22 Medication Refill Social History Tobacco Use Types Packs/Day Years Used Date Smoking Tobacco: Never Smokeless Tobacco: Never Alcohol Use Standard Drinks/Week Comments Yes 0 (1 standard drink = 0.6 oz pur e alcohol) VERY RARE (1-2x per year) Comments No Sex and Gender Information Value Date Recorded Sex Assigned at Not on file 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 Sex 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:58 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 Gender Identity Not on file Sexual Orientation Not on file documented as of this encounter Plan of Treatment Upcoming Encounters Date Type Department Care Team (Late Contact Info) Description 06/14/2024 1:00 PM CDT Office Visit [facility] [address] 3rd [place] [phone] Hector Goode MD [address] [place] [address] [id number] [place] [address] documented as of this encounter Visit Diagnoses Not on filedocumented in this encounter Care Teams Gluing Machine Adjuster Relationship Specialty Start Date End Date Roslyn Sandoval MD NO INFO AVAILABLE 10/03/22 PCP - General 03/27/99 08/11/19 Korin Lamb MD [address] , [facility] [address] [place] [address] PCP - General Family Practice 08/12/19 03/15/21 Jasmin Maradiaga PA-C [address] , [facility] [address] [place] [address] PCP - General Family Medicine 03/16/21 Hector Goode MD [address] [address] Neurology 05/01/17 John Cancino MD [address] [place] [address] Family Medicine - Sports Medicine 07/30/17 Roslyn Sandoval MD NO INFO AVAILABLE 10/03/22 Assigned PCP 02/08/18 06/05/19 Korin Lamb MD [address] [address] Assigned PCP 06/06/19 04/29/20 Carl Farah MD [address] [facility] [address] [place] [phone] Assigned Heart and Vascular Provider 12/31/19 12/16/20 Roslyn Sandoval MD NO INFO AVAILABLE 10/03/22 Assigned PCP 04/30/20 05/06/20 Korin Lamb MD [address] , [address] [address] Assigned PCP 05/07/20 05/28/20 Gavi Cloud MD [address] [place] [address] Assigned PCP 05/29/20 01/06/21 Jasmin Maradiaga PA-C [address] [place] [address] Assigned PCP 01/07/21 09/28/21 Itzel Polk APRN MOID MIDDLE SCHOOL TEACHER NO INFO AVAILABLE 12/27/2021 Assigned Heart and Vascular Provider 12/17/20 02/17/21 Carl Farah MD [address] [place] [phone] Assigned Heart and Vascular Provider 02/18/21 12/14/21 Gavi Cloud MD [address] [place] [address] Assigned PCP 09/29/21 10/19/21 Jasmin Maradiaga PA-C [address] [place] [address] Assigned PCP 10/20/21 Itzel Polk APRN MOID MIDDLE SCHOOL TEACHER NO INFO AVAILABLE 12/27/2021 Assigned Heart and Vascular Provider 12/15/21 05/17/22 Carl Farah MD [address] [place] [phone] Assigned Heart and Vascular Provider 05/18/22 Hector Goode MD [address] [facility] [place] [id number] [address] Assigned Neuroscience Provider 07/01/23 documented as of this encounter
--- OUTSIDE RECORDS SUMMARY | 2024-02-01 08:23 | XMS_ITS | Encounter Summary ---
Author Organization [facility] Address [address] [place] [address] Care Team Providers Care Tire Assembler Name Role Phone Roslyn Sandoval MD Primary Care Provider Unav ailable Hector Goode MD Unavailable John Cancino MD Unavailable [phone] Roslyn Sandoval MD Unavailable UnavailKorin Cash MD Unavailable +- 03 Korin Lamb MD Primary Care Provider [phone] Carl Farah MD Unavailable [phone] Roslyn Sandoval MD Unavailable UnavailKorin Cash MD Unavailable +- 03 Gavi Cloud MD Unavailable +[phone] Jasmin Maradiaga PA-C Unavailable + Itzel Polk APRN MERCANTILE REPORTER Unavailable Unavailable Carl Farah MD Unavailable +[phone] Jasmin Maradiaga PA-C Primary Care Provid er Gavi Cloud MD Unavailable +[phone] Jasmin Maradiaga PA-C Unavailable + [phone] Itzel Polk APRN MERCANTILE REPORTER Unavailable Unavailable Carl Farah MD Unavailable [phone] Hector Goode MD Unavailable Reason for Visit * Reason Comments Medication Refill Encounter Details Date Type Department Care Team (Late st Contact Info) Description 08/27/2014 Refill [facility] [address] [place] [address] [address] [place] [address] Roslyn Sandoval MD NO INFO AVAILABLE 10/03/22 Medication Refill Social History Tobacco Use Types Packs/Day Years Used Date Smoking Tobacco: Never Smokeless Tobacco: Never Alcohol Use Standard Drinks/Week Comments Yes 0 (1 standard drink = 0.6 oz pur e alcohol) VERY RARE Comments No Sex and Gender Information Value Date Recorded Sex Assigned at Not on file 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 She says its not necessary. I informed her that her last K level was 02/20. She declines lab only appt. Lo * Telephone Encounter - Roslyn Sandoval MD - 08/30/2014 3:36 PM CDT lo- I [facility]illed a [facility] day [facility] with request for lab only appt (standing potassium order is in [facility]) * Telephone Encounter - Ingrid Apple - 08/30/2014 12:24 PM CDT Pt refuses to come in. Lo * Telephone Encounter - Ingrid Apple - 08/30/2014 9:14 AM CDT LM for pt to call me back to schedule. Lo * Telephone Encounter - Roslyn Sandoval MD - 08/29/2014 7:55 AM CDT Just in to see Dr Lamb Please call patient to schedule a lab only for potassium She is also due for her final pneumonia booster- Please call patient to schedule nurse/lab visit * Telephone Encounter - Ingrid Apple - 08/27/2014 8:58 AM CDT Last K checked 02/20. Pt due for a 6 month appt. Please authorize # 30 and send to FD to schedule fasting appt. FD, can you please inform pt that # 30 day has been sent to [facility] in [place]. Original request came from [employer]. Thanks Lo documented in this encounter Plan of Treatment Upcoming Encounters Date Type Department Care Team (Late st Contact Info) Description 06/14/2024 1:00 PM CDT Office Visit [facility] [address]rd [place] [address] Hector Goode MD [address] [place] [address] [id number] [place], [place] [id number] documented as of this encounter Visit Diagnoses Diagnosis Other primary cardiomyopathies- Primary Medication management Encounter for other specified aftercare Need for vaccination against Streptococcus pneumoniae Need for prophylactic vaccination against streptococcus pneumoniae (pneumococcus) documented in this encounter Care Teams Tire Assembler Relationship Specialty Start Date End Date Roslyn Sandoval MD NO INFO AVAILABLE 10/03/22 PCP - General 03/27/99 08/11/19 Korin Lamb MD [address] , [address] [address] PCP - General Family Practice 08/12/19 03/15/21 Jasmin Maradiaga PA-C [address] , [address] [place] [address] PCP - General Family Medicine 03/16/21 Hector Goode MD [address] [address] Neurology 05/01/17 John Cancino MD [address] [address] Family Medicine - Sports Medicine 07/30/17 Roslyn Sandoval MD NO INFO AVAILABLE 10/03/22 Assigned PCP 02/08/18 06/05/19 Korin Lamb MD [address] , [address] [address] Assigned PCP 06/06/19 04/29/20 Carl Farah MD [address] [facility] [place] [address] [place] [address] Assigned Heart and Vascular Provider 12/31/19 12/16/20 Roslyn Sandoval MD NO INFO AVAILABLE 10/03/22 Assigned PCP 04/30/20 05/06/20 Korin Lamb MD [address] , [address] [address] Assigned PCP 05/07/20 05/28/20 Gavi Cloud MD [address] [place] [address] Assigned PCP 05/29/20 01/06/21 Jasmin Maradiaga PA-C [address] , [address] [place] [address] Assigned PCP 01/07/21 09/28/21 Itzel Polk APRN MERCANTILE REPORTER NO INFO AVAILABLE 12/27/2021 Assigned Heart and Vascular Provider 12/17/20 02/17/21 Carl Farah MD [address] [place] [phone] Assigned Heart and Vascular Provider 02/18/21 12/14/21 Gavi Cloud MD [address] [place] [address] Assigned PCP 09/29/21 10/19/21 Jasmin Maradiaag PA-C [address] [place] [address] Assigned PCP 10/20/21 Itzel Polk APRN MERCANTILE REPORTER NO INFO AVAILABLE 12/27/2021 Assigned Heart and Vascular Provider 12/15/21 05/17/22 Carl Farah MD [address] [place] [phone] Assigned Heart and Vascular Provider 05/18/22 Hector Goode MD [address] [facility] [address] Assigned Neuroscience Provider 07/01/23 documented as of this encounter
[2024-02-01 08:24] LABS: Chloride* 101 mmol/L (96-114); Sodium* 137 mmol/L (135-149)
--- OUTSIDE RECORDS SUMMARY | 2024-02-01 08:24 | XMS_ITS | Encounter Summary ---
Author Organization [place] Address [address] [place] [address] Care Team Providers Care Core Drill Operator Name Role Phone Marcos Sandoval MD Primary Care Provider Unav ailable Hector Goode MD Unavailable John Cancino MD Unavailable [phone] Marcos Sandoval MD Unavailable UnavailKorin Cash MD Unavailable +- 03 Korin Lamb MD Primary Care Provider [phone] Carl Farah MD Unavailable +[phone] Marcos Sandoval MD Unavailable UnavailKorin Cash MD Unavailable +- 03 Gavi Cloud MD Unavailable +[phone] Jasmin Maradiaga PA-C Unavailable + Itzel Polk APRN BEADWORKER Unavailable Unavailable Carl Farah MD Unavailable +[phone] Jasmin Maradiaga PA-C Primary Care Provid er Gavi Cloud MD Unavailable +[phone] Jasmin Maradiaga PA-C Unavailable + [phone] Itzel Polk APRN BEADWORKER Unavailable Unavailable Carl Farah MD Unavailable +[phone] Hector Goode MD Unavailable Encounter Details Date Type Department Care Team (Late st Contact Info) Description 08/24/2004 Office Visit-[facility] [address] [place] [phone] Unknown, DoctorMD Social History Tobacco Use Types Packs/Day Years Used Date Smoking Tobacco: Never Alcohol Use Standard Drinks/Week Comments No 0 (1 standard drink = 0.6 oz pur e alcohol) on occ Comments No Sex and Gender Information Value Date Recorded Sex Assigned at Not on file Legal Sex Female 2:58 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 CURRENT DIAGNOSES 1. - Congestive Heart Failure, 428.0 2. 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 - Hypercholesterolemia, 272.0 ALLERGIES Sulfa MEDICATIONS (including any changes made today) 1. Potassium Chloride 20 Meq, on hold 2. Spironolactone 25 Mg, 1 p.o. q.d. 3. Lipitor 20 Mg, 1/2 tab q.d. 4. Lasix 40 Mg, 1/2 tab b.i.d. 5. Coreg 12.5 Mg, 1 p.o. b.i.d. 6. Avapro 150 Mg, 1/2 tab q.d. 7. Zoloft 50 mg, 1 p.o. q.d. 8. Coumadin 6 mg, Take as Directed 9. Gleevec 100mg, 4 p.o. q.d. 10. Advair 100/50, Take as Directed CHIEF COMPLAINTS Echo review + f/u on chf HISTORY OF PRESENT ILLNESS: Ms. Lai is a delightful 59-year-old woman here for follow up of hercardiomyopathy. She also has a history of hyperlipidemia. An angiogram to evaluate her cardiomyopathy demonstrated normal coronary arteries. An echocardiogram done in May of 2003 showed an ejectionfraction of 35%. She has been on an excellent regimen for her cardiomyopathy and has done reasonably well. She has chronic dyspnea on exertion with some mild asthma, but it has not changed significantly in recent months. I saw her last week for worsening lightheadedness combined with low home bloodpressure readings. She reports that her blood pressure at home has been as low as 85 systolic, which she is symptomatic with. When I saw her, her blood pressure was 100/70. Dr. Farah has recommended that her systolic blood pressure be kept around 100 or greater rather than keeping it on the low side, as she has vertebral artery narrowing. In trying to evaluate which medications to modify, I chose to reduce her Lasix dose slightly. She is on Coreg 12.5 mg twice daily and a very small dose of Avapro at 75 mg daily. Her Lasix was 40 mg in the morning and 20 in the evening, and I had her reduce it to 20 b.i.d. I put her potassium supplement on hold and she continued to take spironolactone. Today, she reports that she feels slightly better, and she has not noticed any more of the very lowreadings. Her blood pressure here in the office is still not very high at 104/63. Her weight is up 1 pound at 266. All other review of systems, past medical history, and physical examination findingsare noted below. PAST HISTORY Past Medical Illnesses: IBS, depression, sarcoid, sleep apnea, CML, TIA, vertebral art. narrowing (keep SBP up a bit), asthma Past Cardiac Illnesses: CHF,LBBB, Idiopathic Dilated Cardiomyapathy Cardiology Procedures-Invasive: , cardiac cath (left) Cardiology Procedures-Noninvasive: , , echocardiogram, echocardiogram January 2002, treadmill Thallium, Echo 06-10, BioZ 06-10 Cardiac Cath Results: nl. 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 Weight- 266.00 lbs. Height- 65.00 Temperature- .00 CONSTITUTIONAL cooperative, alert and oriented,well [...] no masses, no hepatosplenomegaly, non- tender, no bruits PERIPHERAL PULSES pulses full and equal in all extremities, no bruits auscultated. EXTREMITIES & BACK 1+ bilat edema-stable, no cyanosis or clubbing NEUROLOGICAL no gross motor deficits noted, affect appropriate, oriented to time, person and place. MEDICATIONS UPDATED TODAY: IMPRESSION/PLAN: Yoana is a delightful 59-year-old woman here for follow up after recent medication changes. I have ordered a basic metabolic panel and those results are pending. I will contact her ifwe need to adjust her medications depending on her potassium values. She does feel less symptomaticwith regard to hypotension. An echocardiogram was completed earlier this week which showed an improvement in her ejection fraction at 40-45%. This is up from 35% last May. She will continue on thiscurrent regimen. Will follow with Dr. Farah later in the winter and as always was encouraged to contact us prior to that if problems or concerns arise as we would be happy to see her on a p.r.n. basis. I did encourage Yoana to being some form of regular aerobic activity. She has a considerable amount of weight to lose and this no doubt combed with deconditioning is contributing to her fatigue and dyspnea on exertion. She seems to appreciate this and has brochures with her today on a variety ofdifferent exercise options. TODAYS ORDERS 1. Basic Metabolic Panel Today Yumiko Hernandez documented in this encounter Plan of Treatment Upcoming Encounters Date Type Department Care Team (Late st Contact Info) Description 06/14/2024 1:00 PM CDT Office Visit [facility] Neurology [address] 3rd [place] [address] Hector Goode MD [address] [place] [address] documented as of this encounter Visit Diagnoses Not on filedocumented in this encounter Care Teams Core Drill Operator Relationship Specialty Start Date End Date Marcos Sandoval MD NO INFO AVAILABLE 10/03/22 PCP - General 03/27/99 08/11/19 Korin Lamb MD [address] [address] PCP - General Family Practice 08/12/19 03/15/21 Jasmin Maradiaga PA-C [address] , [address] [address] PCP - General Family Medicine 03/16/21 Hector Goode MD [address] [place] [address] Neurology 05/01/17 John Cancino MD [address] [place] [address] Family Medicine - Sports Medicine 07/30/17 Marcos Sandoval MD NO INFO AVAILABLE 10/03/22 Assigned PCP 02/08/18 06/05/19 Korin Lamb MD [address] [address] Assigned PCP 06/06/19 04/29/20 Carl Farah MD [address] [place] [phone] Assigned Heart and Vascular Provider 12/31/19 12/16/20 Marcos Sandoval MD NO INFO AVAILABLE 10/03/22 Assigned PCP 04/30/20 05/06/20 Korin Lamb MD [address], [address] [place], [place] [address] Assigned PCP 05/07/20 05/28/20 Gavi Cloud MD [address] [place] [address] Assigned PCP 05/29/20 01/06/21 Jasmin Maradiaga PA-C [address], [facility] [address] [place], [place] [address] Assigned PCP 01/07/21 09/28/21 Itzel Polk APRN BEADWORKER NO INFO AVAILABLE 12/27/2021 Assigned Heart and Vascular Provider 12/17/20 02/17/21 Carl Farah MD [address] [place] [phone] Assigned Heart and Vascular Provider 02/18/21 12/14/21 Gavi Cloud MD [address] [place] [address] Assigned PCP 09/29/21 10/19/21 Jasmin Maradiaga PA-C [address] , [facility] [address] [place] [address] Assigned PCP 10/20/21 Itzel Polk APRN BEADWORKER NO INFO AVAILABLE 12/27/2021 Assigned Heart and Vascular Provider 12/15/21 05/17/22 Carl Farah MD [address] [facility] [address] [place] [phone] Assigned Heart and Vascular Provider 05/18/22 Hector Goode MD [address] [facility] [id number], [place] [address] Assigned Neuroscience Provider 07/01/23 documented as of this encounter
--- OUTSIDE RECORDS SUMMARY | 2024-02-01 08:24 | XMS_ITS | Encounter Summary ---
Author Organization [place] Address [address] [place] [address] Care Team Providers Care Director Imaging Name Role Phone Roslyn Sandoval MD Primary Care Provider Unav ailable Hector Goode MD Unavailable John Cancino MD Unavailable [phone] Roslyn Sandoval MD Unavailable UnavailKorin Cash MD Unavailable +- 03 Korin Lamb MD Primary Care Provider [phone] Carl Farah MD Unavailable +[phone] Roslyn Sandoval MD Unavailable UnavailKorin Cash MD Unavailable +- 03 Gavi Cloud MD Unavailable +[phone] Jasmin Maradiaga PA-C Unavailable + Itzel Polk APRN MANAGEMENT ASSISTANT Unavailable Unavailable Carl Farah MD Unavailable +[phone] Jasmin Maradiaga PA-C Primary Care Provid er Gavi Cloud MD Unavailable +[phone] Jasmin Maradiaga PA-C Unavailable + [phone] Itzel Polk APRN MANAGEMENT ASSISTANT Unavailable Unavailable Carl Farah MD Unavailable +[phone] Hector Goode MD Unavailable Encounter Details Date Type Department Care Team (Late st Contact Info) Description 09/21/2004 Abstract [facility] [address] [facility] [address] [place] [address] Abstract, Provider ABSTRACTING RESULTS (Primary Dx) Social History Tobacco Use Types Packs/Day Years Used Date Smoking Tobacco: Never Alcohol Use Standard Drinks/Week Comments No 0 (1 standard drink = 0.6 oz pur e alcohol) on occ Comments No Sex and Gender Information Value Date Recorded Sex Assigned at Not on file Legal Sex Female 2:58 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 Gender Identity Not on file Sexual Orientation Not on file documented as of this encounter Plan of Treatment Upcoming Encounters Date Type Department Care Team (Late st Contact Info) Description 06/14/2024 1:00 PM CDT Office Visit [facility] Clinic [address] 3rd [place] [phone] Hector Goode MD [address] [place] [address] [id number] [place] [address] documented as of this encounter Procedures Procedure Name Priority Date/Time Associated Diagnosis Comments ZZCL AFF PROTHROMBIN TIME/INR Routine 09/21/2004 ABSTRACTING RESULTS ZZCL AFF WBC Routine 09/21/2004 ABSTRACTING RESULTS documented in this encounter Results * PROTHROMBIN TIME/INR (09/21/2004) INR Point of Care 2.2 [facility] Narrative [facility] - 09/21/2004 PT=22.3 us Provider Abstract LABORATORY Final Result Performing Organization Address City/[facility]/ZIP Co de Phone Number [facility] [address] [place] [address] [address] [place] [address], [facility] * WBC (09/21/2004) WBC 7.3 4.3 - 11 thous/CU.MM [facility] us Provider Abstract LABORATORY Final Result [facility] [address] [address], [facility] documented in this encounter Visit Diagnoses Diagnosis ABSTRACTING RESULTS- Primary documented in this encounter Care Teams Director Imaging Relationship Specialty Start Date End Date Roslyn Sandoval MD NO INFO AVAILABLE 10/03/22 PCP - General 03/27/99 08/11/19 Korin Lamb MD [address] , [address] [address] PCP - General Family Practice 08/12/19 03/15/21 Jasmin Maradiaga PA-C [address] , [address] [address] PCP - General Family Medicine 03/16/21 Hector Goode MD [address] [address] Neurology 05/01/17 John Cancino MD [address] [address] Family Medicine - Sports Medicine 07/30/17 Roslyn Sandoval MD NO INFO AVAILABLE 10/03/22 Assigned PCP 02/08/18 06/05/19 Korin Lamb MD [address] , [address] [address] Assigned PCP 06/06/19 04/29/20 Carl Farah MD [address] [facility] [facility] [address] [place] [phone] Assigned Heart and Vascular Provider 12/31/19 12/16/20 Roslyn Sandoval MD NO INFO AVAILABLE 10/03/22 Assigned PCP 04/30/20 05/06/20 Korin Lamb MD [address] , [address] [address] Assigned PCP 05/07/20 05/28/20 Gavi Cloud MD [address] [place] [address] Assigned PCP 05/29/20 01/06/21 Jasmin Maradiaga PA-C [address] , [address] [address] Assigned PCP 01/07/21 09/28/21 Itzel Polk APRN CNP NO INFO AVAILABLE 12/27/2021 Assigned Heart and Vascular Provider 12/17/20 02/17/21 Carl Farah MD [address] [place] [address] Assigned Heart and Vascular Provider 02/18/21 12/14/21 Gavi Cloud MD [address] [place] [address] Assigned PCP 09/29/21 10/19/21 Jasmin Maradiaga PA-C [address] , [address] [address] Assigned PCP 10/20/21 Itzel Polk APRN MANAGEMENT ASSISTANT NO INFO AVAILABLE 12/27/2021 Assigned Heart and Vascular Provider 12/15/21 05/17/22 Carl Farah MD [address] [facility] [address] [place] [address] Assigned Heart and Vascular Provider 05/18/22 Hector Goode MD [address] [facility] [id number] [place] [address] Assigned Neuroscience Provider 07/01/23 documented as of this encounter
--- OUTSIDE RECORDS SUMMARY | 2024-02-01 08:24 | XMS_ITS | Encounter Summary ---
Author Organization [place] Address [address] [place] [address] Care Team Providers Care Industrial Editor Name Role Phone Roslyn Sandoval MD Primary Care Provider Unav ailable Hector Goode MD Unavailable John Cancino MD Unavailable [phone] Roslyn Sandoval MD Unavailable UnavailKorin Cash MD Unavailable +- 03 Korin Lamb MD Primary Care Provider [phone] Carl Farah MD Unavailable +[phone] Roslyn Sandoval MD Unavailable UnavailKorin Cash MD Unavailable +- 03 Gavi Cloud MD Unavailable +[phone] Jasmin Maradiaga PA-C Unavailable + Itzel Polk APRN ELECTRONIC DRAFTER Unavailable Unavailable Carl Farah MD Unavailable +[phone] Jasmin Maradiaga PA-C Primary Care Provid er Gavi Cloud MD Unavailable +[phone] Jasmin Maradiaga PA-C Unavailable + [phone] Itzel Polk APRN ELECTRONIC DRAFTER Unavailable Unavailable Carl Farah MD Unavailable +[phone] Hector Goode MD Unavailable Encounter Details Date Type Department Care Team (Late Contact Info) Description 11/23/2003 Abstract [facility] [address] [address] [place] [address] Abstract, Provider ABSTRACTING RESULTS (Primary Dx) Social History Tobacco Use Types Packs/Day Years Used Date Smoking Tobacco: Never Alcohol Use Standard Drinks/Week Comments No 0 (1 standard drink = 0.6 oz pur e alcohol) on occ Comments No Sex and Gender Information Value Date Recorded Sex Assigned at Not on file 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 Gender Identity Not on file Sexual Orientation Not on file documented as of this encounter Plan of Treatment Upcoming Encounters Date Type Department Care Team (Late Contact Info) Description 06/14/2024 1:00 PM CDT Office Visit [facility] [address] 3rd [place] [phone] Hector Goode MD [address] [place] [address] [id number] [place] [address] documented as of this encounter Procedures Procedure Name Priority Date/Time Associated Diagnosis Comments ZZCL AFF HEMOGLOBIN Routine 10/19/2003 1 2:55 AM CDT ABSTRACTING RESULTS documented in this encounter Results * HEMOGLOBIN (10/19/2003 12:55 AM CDT) Hemoglobin 12.1 12 - 16 GM/DL [facility] us Provider Abstract LABORATORY Final Result [facility] [address] [place] [address] [address] [place] [address], [facility] documented in this encounter Visit Diagnoses Diagnosis ABSTRACTING RESULTS- Primary documented in this encounter Care Teams Industrial Editor Relationship Specialty Start Date End Date Roslyn Sandoval MD NO INFO AVAILABLE 10/03/22 PCP - General 03/27/99 08/11/19 Korin Lamb MD [address] , [address] [address] PCP - General Family Practice 08/12/19 03/15/21 Jasmin Maradiaga PA-C [address], [address] [place] [address] PCP - General Family Medicine 03/16/21 Hector Goode MD [address] [address] Neurology 05/01/17 John Cancino MD [address] [address] Family Medicine - Sports Medicine 07/30/17 Roslyn Sandoval MD NO INFO AVAILABLE 10/03/22 Assigned PCP 02/08/18 06/05/19 Korin Lamb MD [address] , [address] [address] Assigned PCP 06/06/19 04/29/20 Carl Farah MD [address] [facility] [address] [place] [phone] Assigned Heart and Vascular Provider 12/31/19 12/16/20 Roslyn Sandoval MD NO INFO AVAILABLE 10/03/22 Assigned PCP 04/30/20 05/06/20 Korin Lamb MD [address] , [address] [address] Assigned PCP 05/07/20 05/28/20 Gavi Cloud MD [address] [place] [address] Assigned PCP 05/29/20 01/06/21 Jasmin Maradiaga PA-C [address], [address] [place] [address] Assigned PCP 01/07/21 09/28/21 Itzel Polk APRN ELECTRONIC DRAFTER NO INFO AVAILABLE 12/27/2021 Assigned Heart and Vascular Provider 12/17/20 02/17/21 Carl Farah MD [address] [place] [phone] Assigned Heart and Vascular Provider 02/18/21 12/14/21 Gavi Cloud MD [address] [place] [address] Assigned PCP 09/29/21 10/19/21 Jasmin Maradiaga PA-C [address] , [facility] [address] [place] [address] Assigned PCP 10/20/21 Itzel Polk APRN ELECTRONIC DRAFTER NO INFO AVAILABLE 12/27/2021 Assigned Heart and Vascular Provider 12/15/21 05/17/22 Carl Farah MD [address] [place] [id number] Assigned Heart and Vascular Provider 05/18/22 Hector Goode MD [address] [place] [address] [id number] [place] [address] Assigned Neuroscience Provider 07/01/23 documented as of this encounter
--- OUTSIDE RECORDS SUMMARY | 2024-02-01 08:24 | XMS_ITS | Encounter Summary ---
Author Organization [place] Address [address] [place] [address] Care Team Providers Care Hatch Boss Name Role Phone Roslyn Sandoval MD Primary Care Provider Unav ailable Hector Goode MD Unavailable John Cancino MD Unavailable [phone] Roslyn Sandoval MD Unavailable UnavailKorin Cash MD Unavailable +- 03 Korin Lamb MD Primary Care Provider [phone] Carl Farah MD Unavailable +[phone] Roslyn Sandoval MD Unavailable UnavailKorin Cash MD Unavailable +- 03 Gavi Cloud MD Unavailable +[phone] Jasmin Maradiaga PA-C Unavailable + Itzel Polk APRN FLOOR COVERING PRINTER ASSISTANT Unavailable Unavailable Carl Farah MD Unavailable +[phone] Jasmin Maradiaga PA-C Primary Care Provid er Gavi Cloud MD Unavailable +[phone] Jasmin Maradiaga PA-C Unavailable + [phone] Itzel Polk APRN FLOOR COVERING PRINTER ASSISTANT Unavailable Unavailable Carl Farah MD Unavailable +[phone] Hector Goode MD Unavailable Encounter Details Date Type Department Care Team (Late st Contact Info) Description 12/01/2004 [facility] [address] [place] [phone] Saurav Judge MD XXX RETIRED XXX [address] [facility] [address] [place] [address] CARDIAC DYSRHYTHMIAS NEC; CONGESTIVE HEART FAILURE; HYPOPOTASSEMIA Social History Tobacco Use Types Packs/Day Years Used Date Smoking Tobacco: Never Passive Smoke Exposure: Never Smokeless Tobacco: Never Alcohol Use Standard Drinks/Week Comments No 0 (1 standard drink = 0.6 oz pur e alcohol) Comments No Sex and Gender Information Value Date Recorded Sex Assigned at Not on file 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 will f/u with Dr. Sandoval on Friday. documented in this encounter Plan of Treatment Upcoming Encounters Date Type Department Care Team (Late st Contact Info) Description 06/14/2024 1:00 PM CDT Office Visit [facility] Neurology Clinic [address] 3rd [place] [phone] Hector Goode MD [address] [place] [address] [id number] [place], [place] [address] documented as of this encounter Visit Diagnoses Diagnosis Other specified cardiac dysrhythmias(427.89) Other specified cardiac dysrhythmias CONGESTIVE HEART FAILURE Congestive heart failure, unspecified Hypopotassemia documented in this encounter Care Teams Hatch Boss Relationship Specialty Start Date End Date Roslyn Sandoval MD NO INFO AVAILABLE 10/03/22 PCP - General 03/27/99 08/11/19 Korin Lamb MD [address] , [address] [address] PCP - General Family Practice 08/12/19 03/15/21 Jasmin Maradiaga PA-C [address] , [address] [place] [address] PCP - General Family Medicine 03/16/21 Hector Goode MD [address] [address] Neurology 05/01/17 John Cancino MD [address] [address] Family Medicine - Sports Medicine 07/30/17 Roslyn Sandoval MD NO INFO AVAILABLE 10/03/22 Assigned PCP 02/08/18 06/05/19 Korin Lamb MD [address] , [address] [address] Assigned PCP 06/06/19 04/29/20 Carl Farah MD [address] [facility] [address] [place] [phone] Assigned Heart and Vascular Provider 12/31/19 12/16/20 Roslyn Sandoval MD NO INFO AVAILABLE 10/03/22 Assigned PCP 04/30/20 05/06/20 Korin Lamb MD [address] [address] Assigned PCP 05/07/20 05/28/20 Gavi Cloud MD [address] [place] [address] Assigned PCP 05/29/20 01/06/21 Jasmin Maradiaga PA-C [address] [address] Assigned PCP 01/07/21 09/28/21 Itzel Polk APRN FLOOR COVERING PRINTER ASSISTANT NO INFO AVAILABLE 12/27/2021 Assigned Heart and Vascular Provider 12/17/20 02/17/21 Carl Farah MD [address] [facility] [address] [place] [address] Assigned Heart and Vascular Provider 02/18/21 12/14/21 Gavi Cloud MD [address] [place] [address] Assigned PCP 09/29/21 10/19/21 Jasmin Maradiaga PA-C [address] [address] Assigned PCP 10/20/21 Itzel Polk APRN FLOOR COVERING PRINTER ASSISTANT NO INFO AVAILABLE 12/27/2021 Assigned Heart and Vascular Provider 12/15/21 05/17/22 Carl Farah MD [address] [place] [address] Assigned Heart and Vascular Provider 05/18/22 Hector Goode MD 9 [facility] [id number] [place] [address] Assigned Neuroscience Provider 07/01/23 documented as of this encounter
--- OUTSIDE RECORDS SUMMARY | 2024-02-01 08:24 | XMS_ITS | Encounter Summary ---
Author Organization [facility] Address [address] [place] [address] Care Team Providers Care Tank Charger Name Role Phone Marcos Sandoval MD Primary Care Provider Unav ailable Hector Goode MD Unavailable John Cancino MD Unavailable [phone] Marcos Sandoval MD Unavailable UnavailKorin Cash MD Unavailable +- 03 Korin Lamb MD Primary Care Provider [phone] Carl aFrah MD Unavailable [phone] Marcos Sandoval MD Unavailable UnavailKorin Cash MD Unavailable +- 03 Gavi Cloud MD Unavailable +[phone] Jasmin Maradiaga PA-C Unavailable + Ian [place] APRN PRACTICAL NURSE CLINICAL COORDINATOR Unavailable Unavailable Carl Farah MD Unavailable [phone] Jasmin Maradiaga PA-C Primary Care Provid er Gavi Cloud MD Unavailable +[phone] Jasmin Maradiaga PA-C Unavailable + [phone] Ian [place] APRN PRACTICAL NURSE CLINICAL COORDINATOR Unavailable Unavailable Carl Farah MD Unavailable [phone] Hector Goode MD Unavailable Encounter Details Date Type Department Care Team (Late st Contact Info) Description 02/03/2006 Office Visit-[facility] [address] [place] [id number] Unknown, DoctorMD Social History Tobacco Use Types Packs/Day Years Used Date Smoking Tobacco: Never Alcohol Use Standard Drinks/Week Comments No 0 (1 standard drink = 0.6 oz pur e alcohol) on occ Comments No Sex and Gender Information Value Date Recorded Sex Assigned at Not on file Legal Sex Female 2:58 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 DATE: 02/03/2006 GRISELDA LAI DATE OF : 1945 AGE: [age] years old Referring Physician: MARCOS SANDOVAL Referring Clinic: [facility]. CURRENT DIAGNOSES 1. 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 - Abnormal Test-Abnormal Exercise Stress Test, 794.30 3. - Bundle Branch Block-left, 426.3 4. PLEASE CHOOSE CORRECT DIAGNOSIS 5. - Hypercholesterolemia, 272.0 6. - Congestive Heart Failure, 428.0 ALLERGIES Sulfa MEDICATIONS (including any changes made today) 1. Lumigen opth 0.03%, Take as Directed 2. Avapro 150 Mg, 1/2 tab q.d. 3. Potassium Chloride 10 Meq, 1 p.o. q.d. 4. Lasix 40 Mg, 1/2 tab b.i.d. 5. Lipitor 20 Mg, 1/2 tab q.d. 6. Spironolactone 25 Mg, 1 p.o. q.d. 7. Coumadin 6 mg, Take as Directed 8. Gleevec 100mg, 4 p.o. q.d. 9. Advair 100/50, Take as Directed 10. Coreg 12.5 Mg, 1 p.o. b.i.d. 11. Digoxin 0.125 mg, 1 p.o. q.d. 12. Zoloft 50 mg, 1 p.o. q.d. CHIEF COMPLAINTS Annual f/u - echo at 8am today HISTORY OF PRESENT ILLNESS Griselda Lai returns for followup. She is a 61-year-old female with an idiopathic nonischemic cardiomyopathy. As it turns out her son was just diagnosed with the same thing and therefore this is probably a familial or genetic cardiomyopathy. The patient's main symptoms are continued and progressiv e fatigue and shortness of breath. We did review her echocardiogram. Although the ejection fractionis lower than last year, I wonder if last year's test was spuriously high. In general her ejection fraction has been 30-35% for the last three to four years, and her left ventricle dilated. Her current echo is very similar to her old ones. Clinically she has no rales. She has mild ankle edema whichis stable. PAST HISTORY Past Medical Illnesses: IBS, depression, [...] Sexual Activity - did not discuss sexual history;Residence - lives alone; Place of - [place]; Hours Worked - 40 hours per week; Spouse's Occupation - ; REVIEW OF SYSTEMS GENERAL positive for fatigue, worse INTEGUMENTARY denies any change in hair or nails, rashes, or skin lesions. EYES wears eye glasses/contact lenses EARS, NOSE, THROAT, MOUTH denies any hearing loss, epistaxis, hoarseness or difficulty speaking. RESPIRATORY dyspnea CARDIOVASCULAR chest pain, occ. ABDOMINAL denies change in bowel habits, dyspepsia, ulcer disease, hematochezia or melena. GENITOURINARY-FEMALE positive for nocturia, post menopausal without hormonal replacement MUSCULOSKELETAL denies any history of arthritic symptoms or back problems. NEUROLOGICAL tia in the past, no further neuro events-follows with neurology PSYCHIATRIC denies any history of depression, substance abuse or change in cognitive functions. ENDOCRINE hyperlipidemia, weight gain HEMATOLOGICAL/IMMUNOLOGIC easy bruising PHYSICAL EXAMINATION VITAL SIGNS: Blood Pressure: 112/56 Sitting, Right arm, large cuff Pulse- 72.00/min. Weight- 266.00 lbs. Height- 66.00 Temperature- .00 CONSTITUTIONAL cooperative, [...] time, person and place. MEDICATIONS UPDATED TODAY: Lumigen opth 0.03%, Take as Directed, 0 Digoxin 0.125 mg, 1 p.o. q.d., #30 or #100 Zoloft 50 mg, 1 p.o. q.d., DIRECTED IMPRESSIONS/PLAN I do not know what the cause of her worsening shortness of breath and fatigue is. It certainly could be her heart, although by testing heart function has been the same. She is overweight, which is certainly putting some additional strain on her heart. There is some question about Zoloft, and she iscurrently back on that medicine. I recommended the following things. We will get a Bio-Z test today, and we will repeat it in three weeks. I will start her on digoxin 0.125 mg q.d. and we will see ifthe Bio-Z reflects any difference. We will draw a BNP test today and if her levels are high we can increase her diuretic, although again I do not know that she has that much fluid overload. I will also get a 12-lead EKG to see if she has a wide QRS. She might be a candidate for a biventricular ICD. However, she does not really have class III heart failure and therefore may not be a candidate for that. Of course, if her QRS is narrow she is not at all a candidate for that, although I do believe she has a history of left bundle branch block. The patient herself is really not interested in any biventricular ICD. She has actually mentioned that to me today and before. Total consult time: 40 minutes, greater than 50% counseling. . TODAYS ORDERS 1. Bio-Z Today 2. Bio-Z 3 weeks 3. BNP Today 4. F/U with Ian [place], TAMARA, ANP f/u bio z , assess digoxin, bnp 5. 12 Lead EKG Today 6. Return Visit Anticoag Clinic Today Carl Farah M.D. documented in this encounter Plan of Treatment Upcoming Encounters Date Type Department Care Team (Late st Contact Info) Description 06/14/2024 1:00 PM CDT Office Visit [facility] [address] [place] [address] Hector Goode MD [address] [place] [address] [id number] [place] [address] documented as of this encounter Visit Diagnoses Not on filedocumented in this encounter Care Teams Tank Charger Relationship Specialty Start Date End Date Marcos Sandoval MD NO INFO AVAILABLE 10/03/22 PCP - General 03/27/99 08/11/19 Korin Lamb MD [address] [id number] PCP - General Family Practice 08/12/19 03/15/21 Jasmin Maradiaga PA-C [address] [address] PCP - General Family Medicine 03/16/21 Hector Goode MD [address] [address] Neurology 05/01/17 John Cancino MD [address] [address] Family Medicine - Sports Medicine 07/30/17 Marcos Sandoval MD NO INFO AVAILABLE 10/03/22 Assigned PCP 02/08/18 06/05/19 Korin Lamb MD [address] [address] Assigned PCP 06/06/19 04/29/20 Carl Farah MD [address] [facility] [address] [place] [address] Assigned Heart and Vascular Provider 12/31/19 12/16/20 Marcos Sandoval MD NO INFO AVAILABLE 10/03/22 Assigned PCP 04/30/20 05/06/20 Korin Lamb MD [address] [address] Assigned PCP 05/07/20 05/28/20 Gavi Cloud MD [address] [place] [address] Assigned PCP 05/29/20 01/06/21 Jasmin Maradiaga PA-C [address] [address] Assigned PCP 01/07/21 09/28/21 Ian [place] APRN PRACTICAL NURSE CLINICAL COORDINATOR NO INFO AVAILABLE 12/27/2021 Assigned Heart and Vascular Provider 12/17/20 02/17/21 Carl Farah MD [address] [place] [phone] Assigned Heart and Vascular Provider 02/18/21 12/14/21 Gavi Cloud MD [address] [place] [address] Assigned PCP 09/29/21 10/19/21 Jasmin Maradiaga PA-C [address] , [address] [address] Assigned PCP 10/20/21 Ian [place] APRN PRACTICAL NURSE CLINICAL COORDINATOR NO INFO AVAILABLE 12/27/2021 Assigned Heart and Vascular Provider 12/15/21 05/17/22 Carl Farah MD [address] [place] [phone] Assigned Heart and Vascular Provider 05/18/22 Hector Goode MD [address] [place], [place] [address], [place] [address] Assigned Neuroscience Provider 07/01/23 documented as of this encounter
--- OUTSIDE RECORDS SUMMARY | 2024-02-01 08:24 | XMS_ITS | Encounter Summary ---
Author Organization [facility] Address [address] [place] [address] Care Team Providers Care Assembly Worker Name Role Phone Roslyn Sandoval MD Primary Care Provider Unav ailable Hector Goode MD Unavailable John Cancino MD Unavailable [phone] Roslyn Sandoval MD Unavailable UnavailKorin Cash MD Unavailable +- 03 Korin Lamb MD Primary Care Provider [phone] Carl Farah MD Unavailable [phone] Roslyn Sandoval MD Unavailable UnavailKorin Cash MD Unavailable +- 03 Gavi Cloud MD Unavailable [phone] Jasmin Maradiaga PA-C Unavailable + Itzel [place] APRN PRODUCT TEST ENGINEER Unavailable Unavailable Carl Farah MD Unavailable [phone] Jasmin Maradiaga PA-C Primary Care Provid er Gavi Cloud MD Unavailable +[phone] Jasmin Maradiaga PA-C Unavailable + [phone] Itzel [place] APRN PRODUCT TEST ENGINEER Unavailable Unavailable Carl Farah MD Unavailable [phone] Hector Goode MD Unavailable Encounter Details Date Type Department Care Team (Late st Contact Info) Description 07/19/2005 Abstract [facility] [address] [facility] [place] [place] [address] Roslyn Sandoval MD NO INFO AVAILABLE 10/03/22 ABSTRACTING RESULTS (Primary Dx) Social History Tobacco Use Types Packs/Day Years Used Date Smoking Tobacco: Never Alcohol Use Standard Drinks/Week Comments No 0 (1 standard drink = 0.6 oz pur e alcohol) on occ Comments No Sex and Gender Information Value Date Recorded Sex Assigned at Not on file 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 [address] [place] [address] Hector Goode MD [address] [place] [address] [id number] [place], [place] [phone] documented as of this encounter Procedures Procedure Name Priority Date/Time Associated Diagnosis Comments ZZCL AFF PROTHROMBIN TIME/INR Routine 07/19/2005 ABSTRACTING RESULTS ZZCL AFF WBC Routine 07/19/2005 ABSTRACTING RESULTS documented in this encounter Results * PROTHROMBIN TIME/INR (07/19/2005) INR Point of Care 3.5 Narrative Natalio Caceres - 07/19/2005 PT=35.3secs us Roslyn Sandoval MD LABORATORY Final Resul t * WBC (07/19/2005) WBC 6.6 10^9/L us Roslyn Sandoval MD LABORATORY Final Resul t documented in this encounter Visit Diagnoses Diagnosis ABSTRACTING RESULTS- Primary documented in this encounter Care Teams Assembly Worker Relationship Specialty Start Date End Date Roslyn Sandoval MD NO INFO AVAILABLE 10/03/22 PCP - General 03/27/99 08/11/19 Korin Lamb MD [address] , [place] [address] [place] [address] PCP - General Family Practice 08/12/19 03/15/21 Jasmin Maradiaga PA-C [address], [place] [address] [place] [address] PCP - General Family Medicine 03/16/21 Hector Goode MD [address] [address] Neurology 05/01/17 John Cancino MD [address] [address] Family Medicine - Sports Medicine 07/30/17 Roslyn Sandoval MD NO INFO AVAILABLE 10/03/22 Assigned PCP 02/08/18 06/05/19 Korin Lamb MD [address], [place] [address] [place] [address] Assigned PCP 06/06/19 04/29/20 Carl Farah MD [address] [facility] [address] [place] [phone] Assigned Heart and Vascular Provider 12/31/19 12/16/20 Roslyn Sandoval MD NO INFO AVAILABLE 10/03/22 Assigned PCP 04/30/20 05/06/20 Korin [place] MD [address] , [facility] [address] [place] [address] Assigned PCP 05/07/20 05/28/20 Gavi Cloud MD [address] [place] [address] Assigned PCP 05/29/20 01/06/21 Jasmin Maradiaag PA-C [address] , [address] [address] Assigned PCP 01/07/21 09/28/21 Itzel [place] APRN PRODUCT TEST ENGINEER NO INFO AVAILABLE 12/27/2021 Assigned Heart and Vascular Provider 12/17/20 02/17/21 Carl Farah MD [address] [facility] [address] [place] [address] Assigned Heart and Vascular Provider 02/18/21 12/14/21 Gavi Cloud MD [address] [place] [address] Assigned PCP 09/29/21 10/19/21 Jasmin Maradiaga PA-C [address] , [address] [address] Assigned PCP 10/20/21 Itzel [place] APRN PRODUCT TEST ENGINEER NO INFO AVAILABLE 12/27/2021 Assigned Heart and Vascular Provider 12/15/21 05/17/22 Carl Farah MD [address] [place] [phone] Assigned Heart and Vascular Provider 05/18/22 Hector Goode MD [address] [facility] [id number] [place], [place] [address] Assigned Neuroscience Provider 07/01/23 documented as of this encounter
--- OUTSIDE RECORDS SUMMARY | 2024-02-01 08:24 | XMS_ITS | Encounter Summary ---
Author Organization [facility] Address [address] [place] [address] Care Team Providers Care Health Aide Name Role Phone Marcos Sandoval MD Primary Care Provider Unav ailable Hector Goode MD Unavailable John Cancino MD Unavailable [phone] Marcos Sandoval MD Unavailable UnavailKorin Cash MD Unavailable +- 03 Korin Lamb MD Primary Care Provider [phone] Carl Farah MD Unavailable [phone] Marcos Sandoval MD Unavailable UnavailKorin Cash MD Unavailable +- 03 Gavi Cloud MD Unavailable [phone] Jasmin Maradiaga PA-C Unavailable + Ian Polk APRN VIBRATING SCREED OPERATOR Unavailable Unavailable Carl Farah MD Unavailable +[phone] Jasmin Maradiaga PA-C Primary Care Provid er Gavi Cloud MD Unavailable [phone] Jasmin Maradiaga PA-C Unavailable + [phone] Ian Polk APRN VIBRATING SCREED OPERATOR Unavailable Unavailable Carl Farah MD Unavailable [phone] Hector Goode MD Unavailable Encounter Details Date Type Department Care Team (Late st Contact Info) Description 02/24/2006 Office Visit-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 DATE: 02/24/2006 GRISELDA LAI DATE OF : 1945 AGE: [age] years old Referring Physician: MARCOS SANDOVAL Referring Clinic: [facility]. CURRENT DIAGNOSES 1. 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 - Hypercholesterolemia, 272.0 3. - Abnormal Test-Abnormal Exercise Stress Test, 794.30 4. - Bundle Branch Block-left, 426.3 5. PLEASE CHOOSE CORRECT DIAGNOSIS 6. - Congestive Heart Failure, 428.0 ALLERGIES [...] Gleevec 100mg, 4 p.o. q.d. CHIEF COMPLAINTS follow up cardiomyopathy HISTORY OF PRESENT ILLNESS Griselda Lai is a very pleasant 61-year-old female with idiopathic cardiomyopathy. One of her sons was just diagnosed with this condition, which makes this likely to be familial or genetic in nature. She has one other son who has suggested to undergo screening at some point. She saw Dr. Farah the end of January, complaining of fatigue and shortness of breath. Her echocardiogram was not significantly changed, in that her ejection fraction was 30 to 35%, with a left ventricular dimension of 6.1 cm. No significant valvular disease or pulmonary hypertension. By examination, she appears to be euvolemic, although she has chronic mild ankle edema, which is unchanged. Dr. Farah added digoxin 0.125 mg daily, which has made no difference in her clinical situation. She had a BioZ performed today, with heart rates in the mid 60s. Her supine blood pressure 119/68, standing 116/58. Her thoracic fluid content is 27.7 supine, drops to 25.8 standing. And her systemic vascular resistance supine is 1006, drops to 825 standing. For the most part, these numbers do not appear to indicate any fluid overload as a cause for her dyspnea on exertion. Griselda does participate in pool exercises, where she does leg lifts and squats on a one-to-one instructed basis. Christen will be branching out in on her own and tells me she does not have shortness of breath with that activity. However, walking up 3 steps limits her carrying groceries or doing normal daily activities sometimes causes shortness of breath to the point where she has to stop. Her BMI is 43. She has gained approximately 10 pounds in the past seven months. Some of her symptoms certainly could be deconditioning in nature. A 12-lead electrocardiogram today shows a QRS of 145 milliseconds, sinus rhythm with rate of approximately 60 beats/minute. This patient has taken higher dose Coreg three years ago and was admitted to [facility] with vague neurologic findings. She was found to have relatively small vertebral vessels and was placed onCoumadin. And her Coreg was discontinued in the event that low blood pressures may have been contributing to these findings. Stress testing in June of 2005 revealed 2 defects, likely related to artifact. She went on for a CT angiogram in July of 2005, which confirmed only mild plaque in all of her coronary arteries. She had a normal coronary angiogram in 1995. On examination today, her jugular venous pressure is not elevated. Her ankle still has trace edema.Her lungs are clear. Her lipid profile from May of 2005 reveals an HDL of 54, total cholesterol 146, triglycerides 103, LDL 71, normal thyroid level. 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 She takes Gleevec, as well as Lipitor 20 mg daily. PAST HISTORY Past Medical Illnesses: IBS, depression, [...] 06/13 PMHx Echo Results: LA size, Echo 4- EF 30-35% SOCIAL HISTORY Alcohol Use - denies drinking; Smoking - denies tobacco use; Diet - regular diet without modifications and caffeine use-rare; Lifestyle - children, drives car and ; Exercise - some exercise; Seat Belt Use - never; Occupation - disabled; Sexual Activity - did not discuss sexual history; Residence - lives alone; Place of - [place]; Spouse's Occupation - ; REVIEW OF SYSTEMS GENERAL weight gain INTEGUMENTARY denies any change in hair or [...] bruising PHYSICAL EXAMINATION VITAL SIGNS: Blood Pressure: 132/70 Sitting, Left arm, large cuff Pulse- 70.00/min. Weight- 269.00 lbs. Height- 66.00 Temperature- .00 CONSTITUTIONAL cooperative, [...] time, person and place. MEDICATIONS UPDATED TODAY: Alphagan 0.2%, Take as Directed, DIRECTED Coreg 12.5 Mg, 11/2 p.o. b.i.d., #270 Digoxin 0.125 Mg, 1 p.o. q.d., #90 Avapro 150 Mg, 1/2 tab q.d., #45 Lasix 40 Mg, 1/2 tab b.i.d., #90 Lipitor 20 Mg, 1/2 tab q.d., #45 Potassium Chloride 10 Meq, 1 p.o. q.d., #90 Spironolactone 25 Mg, 1 p.o. q.d., #90 MEDICATION STOPPED TODAY: Coreg 12.5 Mg, Digoxin 0.125 mg, Avapro 150 Mg, Potassium Chloride 10 Meq, Lasix 40 Mg, Lipitor 20 Mg and Spironolactone 25 Mg IMPRESSIONS/PLAN 1. Idiopathic cardiomyopathy, with ejection fraction stable and slightly enlarged left ventricular dimension. Her dyspnea on exertion certainly could be multifactorial. I will try to optimize her Coreg as much as her blood pressure and heart rate allow. I have told her if she gets recurrence of herneurological symptoms like she had in the past, she should decrease the dose back. We will start with 18.75 mg twice daily and I will see her back in a month to review her tolerance of this. According to her BioZ and examination today, she seems to be euvolemic. Her BNP was 46. I have not changed her diuretics based on these findings. Her QRS is prolonged; however, she does not have true class III heart failure symptoms; therefore, she is likely a suboptimal candidate for biventricular intervention. She is not anxious to move forward with that therapy. Certainly, she is on an inhaler and thismay be some lung disease that we are seeing. She has known sleep apnea, treated with a mask she wears religiously every night. If she has no clinical change in her condition following optimization of her cardiomyopathy medications, I may send her back to pulmonary for a repeat consultation and/or consider a cardiopulmonary stress test to determine if this is dyspnea from a cardiac perspective orperhaps deconditioning. 2. Hyperlipidemia, which is optimized on Lipitor therapy. Her labs will need to be rechecked again in the spring. 3. She also has asthma and if this has not been reassessed recently, I may refer her for follow up in that regard; will discuss at next visit. I look forward to seeing Griselda back in approximately one month to review her progress. I have spent greater th an 20% of this 25-minute visit today counseling this patient on cardiomyopathy, giving her written material, counseling her on continuing to limit the sodium in her diet, her medication changes, and other potential causes of her shortness of breath, as well as the indication for implantable cardioverter defibrillator therapy. TODAYS ORDERS 1. F/U with Ian Polk, MSN, ANP follow up cardiomyopathy Ian Polk, N.P. documented in this encounter Plan of Treatment Upcoming Encounters Date Type Department Care Team (Late st Contact Info) Description 06/14/2024 1:00 PM CDT Office Visit [facility] [address] [place] [address] Hector Goode MD [address] [place] [address] [id number] [place], [place] [id number] documented as of this encounter Visit Diagnoses Not on filedocumented in this encounter Care Teams Health Aide Relationship Specialty Start Date End Date Marcos Sandoval MD NO INFO AVAILABLE 10/03/22 PCP - General 03/27/99 08/11/19 Korin Lamb MD [address] , [address] [address] PCP - General Family Practice 08/12/19 03/15/21 Jasmin Maradiaga PA-C [address] , [address] [address] PCP - General Family Medicine 03/16/21 Hector Goode MD [address] [place] [address] Neurology 05/01/17 John Cancnio MD [address] [place] [address] Family Medicine - Sports Medicine 07/30/17 Marcos Sandoval MD NO INFO AVAILABLE 10/03/22 Assigned PCP 02/08/18 06/05/19 Korin Lamb MD [address] , [address] [address] Assigned PCP 06/06/19 04/29/20 Carl Farah MD [address] [facility] [address] [place] [phone] Assigned Heart and Vascular Provider 12/31/19 12/16/20 Marcos Sandoval MD NO INFO AVAILABLE 10/03/22 Assigned PCP 04/30/20 05/06/20 Korin Lamb MD [address] [place] [address] Assigned PCP 05/07/20 05/28/20 Gavi Cloud MD [address] [place] [address] Assigned PCP 05/29/20 01/06/21 Jasmin Maradiaga PA-C [address] [place] [address] Assigned PCP 01/07/21 09/28/21 Ian Polk APRN VIBRATING SCREED OPERATOR NO INFO AVAILABLE 12/27/2021 Assigned Heart and Vascular Provider 12/17/20 02/17/21 Carl Farah MD [address] [facility] [address] [place] [phone] Assigned Heart and Vascular Provider 02/18/21 12/14/21 Gavi Cloud MD [address] [place] [address] Assigned PCP 09/29/21 10/19/21 Jasmin Maradiaga PA-C [address], [address] [place] [address] Assigned PCP 10/20/21 Ian Polk APRN VIBRATING SCREED OPERATOR NO INFO AVAILABLE 12/27/2021 Assigned Heart and Vascular Provider 12/15/21 05/17/22 Carl Farah MD [address] [place] [phone] Assigned Heart and Vascular Provider 05/18/22 Hector Goode MD [address] [facility] [id number] [place], [place] [address] Assigned Neuroscience Provider 07/01/23 documented as of this encounter
--- OUTSIDE RECORDS SUMMARY | 2024-02-01 08:24 | XMS_ITS | Encounter Summary ---
Author Organization [facility] Address [address] [place] [address] Care Team Providers Care Powerhouse Electrician Name Role Phone Roslyn Sandoval MD Primary Care Provider Unav ailable Hector Goode MD Unavailable John Cancino MD Unavailable [phone] Roslyn Sandoval MD Unavailable UnavailKorin Cash MD Unavailable +- 03 Korin Lamb MD Primary Care Provider [phone] Carl Farah MD Unavailable [phone] Roslyn Sandoval MD Unavailable UnavailKorin Cash MD Unavailable +- 03 Gavi Cloud MD Unavailable [phone] Jasmin Maradiaga PA-C Unavailable + Itzel Polk APRN PRODUCTION POSTING CLERK Unavailable Unavailable Carl Farah MD Unavailable [phone] Jasmin Maradiaga PA-C Primary Care Provid er Gavi Cloud MD Unavailable +[phone] Jasmin Maradiaga PA-C Unavailable + [phone] Itzel Polk APRN PRODUCTION POSTING CLERK Unavailable Unavailable Carl Farah MD Unavailable [phone] Hector Goode MD Unavailable Encounter Details Date Type Department Care Team (Late st Contact Info) Description 10/08/2004 Abstract [facility] [address] [place] [phone] Roslyn Sandoval MD NO INFO AVAILABLE 10/03/22 ABSTRACTING RESULTS (Primary Dx) Social History Tobacco Use Types Packs/Day Years Used Date Smoking Tobacco: Never Alcohol Use Standard Drinks/Week Comments No 0 (1 standard drink = 0.6 oz pur e alcohol) on occ Comments No Sex and Gender Information Value Date Recorded Sex Assigned at Not on file 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 Gender Identity Not on file Sexual Orientation Not on file documented as of this encounter Plan of Treatment Upcoming Encounters Date Type Department Care Team (Late st Contact Info) Description 06/14/2024 1:00 PM CDT Office Visit [facility] [address] [place] [address] Hector Goode MD [address] [place] [address] [id number] [place], [place] [id number] documented as of this encounter Procedures Procedure Name Priority Date/Time Associated Diagnosis Comments HCL LIPID PANEL Routine 10/08/2004 ABSTRACTING RESULTS documented in this encounter Results * A.M.A. LIPID PANEL (10/08/2004) Cholesterol 167 115 - 199 mg/dL [facility] Triglycerides 121 mg/dL [facility] HDL Cholesterol 53 mg/dL [facility] LDL Cholesterol Calculated 90 mg/dL [facility] ALT 20 U/L [facility] us Roslyn Sandoval MD LABORATORY Final Resul t [facility] [address] [place] [address] documented in this encounter Visit Diagnoses Diagnosis ABSTRACTING RESULTS- Primary documented in this encounter Care Teams Powerhouse Electrician Relationship Specialty Start Date End Date Roslyn Sandoval MD NO INFO AVAILABLE 10/03/22 PCP - General 03/27/99 08/11/19 Korin Lamb MD [address], [address] [place] [address] PCP - General Family Practice 08/12/19 03/15/21 Jasmin Maradiaga PA-C [address], [address] [place] [address] PCP - General Family Medicine 03/16/21 Hector Goode MD [address] [address] Neurology 05/01/17 John Cancino MD [address] [address] Family Medicine - Sports Medicine 07/30/17 Roslyn Sandoval MD NO INFO AVAILABLE 10/03/22 Assigned PCP 02/08/18 06/05/19 Korin Lamb MD [address], [address] [place] [address] Assigned PCP 06/06/19 04/29/20 Carl Farah MD [address] [place] [phone] Assigned Heart and Vascular Provider 12/31/19 12/16/20 Roslyn Sandoval MD NO INFO AVAILABLE 10/03/22 Assigned PCP 04/30/20 05/06/20 Korin Lamb MD [address], [address] [place] [address] Assigned PCP 05/07/20 05/28/20 Gavi Cloud MD [address] [place] [address] Assigned PCP 05/29/20 01/06/21 Jasmin Maradiaga PA-C [address], [address] [place] [address] Assigned PCP 01/07/21 09/28/21 Itzel Polk APRN PRODUCTION POSTING CLERK NO INFO AVAILABLE 12/27/2021 Assigned Heart and Vascular Provider 12/17/20 02/17/21 Carl Farah MD [address] [facility] [address] [place] [address] Assigned Heart and Vascular Provider 02/18/21 12/14/21 Gavi Cloud MD [address] [place] [address] Assigned PCP 09/29/21 10/19/21 Jasmin Maradiaga PA-C [address], [address] [place] [address] Assigned PCP 10/20/21 Itzel Polk APRN PRODUCTION POSTING CLERK NO INFO AVAILABLE 12/27/2021 Assigned Heart and Vascular Provider 12/15/21 05/17/22 Carl Farah MD [address] [place] [phone] Assigned Heart and Vascular Provider 05/18/22 Hector Goode MD [address] [facility] [id number] [place], [place] [phone] Assigned Neuroscience Provider 07/01/23 documented as of this encounter
--- OUTSIDE RECORDS SUMMARY | 2024-02-01 08:24 | XMS_ITS | Encounter Summary ---
Author Organization [facility] Address [address] [place] [address] Care Team Providers Care Instrument Processing Tech Name Role Phone Marcos Sandoval MD Primary Care Provider Unav ailable Hector Goode MD Unavailable John Cancino MD Unavailable [phone] Marcos Sandoval MD Unavailable UnavailKorin Cash MD Unavailable +- 03 Korin Lamb MD Primary Care Provider [phone] Carl Farah MD Unavailable [phone] Marcos Sandoval MD Unavailable UnavailKorin aCsh MD Unavailable +- 03 Gavi Cloud MD Unavailable [phone] Jasmin Maradiaga PA-C Unavailable + Itzel Polk APRN MELTER SUPERVISOR ELECTRIC ARC FURNACE Unavailable Unavailable Carl Farah MD Unavailable [phone] Jasmin Maradiaga PA-C Primary Care Provid er Gavi Cloud MD Unavailable +[phone] Jasmin Maradiaga PA-C Unavailable + [phone] Itzel Polk APRN MELTER SUPERVISOR ELECTRIC ARC FURNACE Unavailable Unavailable Carl Farah MD Unavailable +[phone] Hector Goode MD Unavailable Encounter Details Date Type Department Care Team (Late st Contact Info) Description 12/11/2005 Office Visit-[facility] [address] [place] [phone] Unknown, DoctorMD Social History Tobacco Use Types Packs/Day Years Used Date Smoking Tobacco: Never Alcohol Use Standard Drinks/Week Comments No 0 (1 standard drink = 0.6 oz pur e alcohol) on occ Comments No Sex and Gender Information Value Date Recorded Sex Assigned at Not on file 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 DATE: 12/03/2005 GRISELDA LAI DATE OF : 1945 AGE: [age] years old Referring Physician: MARCOS SANDOVAL Referring Clinic: [facility]. CURRENT DIAGNOSES 1. 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 - Abnormal Test-Abnormal Exercise Stress Test, 794.30 3. - Bundle Branch Block-left, 426.3 4. PLEASE CHOOSE CORRECT DIAGNOSIS 5. - Hypercholesterolemia, 272.0 6. - Congestive Heart Failure, 428.0 ALLERGIES Sulfa MEDICATIONS (including any changes made today) 1. Avapro 150 Mg, 1/2 tab q.d. 2. Potassium Chloride 10 Meq, 1 p.o. q.d. 3. Lasix 40 Mg, 1/2 tab b.i.d. 4. Lipitor 20 Mg, 1/2 tab q.d. 5. Spironolactone 25 Mg, 1 p.o. q.d. 6. Coumadin 6 mg, Take as Directed 7. Gleevec 100mg, 4 p.o. q.d. 8. Advair 100/50, Take as Directed 9. Coreg 12.5 Mg, 1 p.o. b.i.d. CHIEF COMPLAINTS HISTORY OF PRESENT ILLNESS <FONT FACE=SYSTEM> I am having the pleasure of seeing Griselda Lai who I met actually when she was admitted to [facility] a while back with tachycardia and low potassium almost exactly a year ago. Griselda is a complex lady. She is quite bright. She is involved with her children and grandchildren and intends to live a long time and stay involved in their activities. She is currently traveling to [place] several times a week to visit her father who is in a shelter. She finds it difficult toget about and routinely exercise and has had an unwell feeling in the right arm that is somewhat difficult to describe but some of the terms used to identify it include weakness, discomfort with hurting inside, and she is aware of that arm probably well over half of each waking day. Nonetheless, she has no problem with fine motor skills and that is her writing arm. She finds she can automaticallydo normal tasks using that arm. The second problem that she describes with great concern is chronic fatigue and that seems to be getting worse. She wondered about negative effects from Zoloft and stopped the Zoloft just a few weeksago, well after these other symptoms had become apparent, with no significant worsening of those symptoms that she identifies. She has problems that I did not know about. Deafness in the left ear and a hearing aid somewhat difficult to use in the right these days as the ear is draining. She identifies shortness of breath with activity but not chest discomfort, although she has had chest burning in the past and that prompted a nuclear test and subsequently a CT angiogram that did notreally show significant coronary artery disease but perhaps more plaque than one might expect in a person in her age group. She has a lot of different diagnoses that include sarcoid in the distant past; leukemia, which seems to be in remission; cardiomyopathy with variable cardiac functional estimates, now reasonably maintained with only mildly reduced cardiac function; on excellent medications. The last nuclear stress test showed an ejection fraction of 44% and the previous stress echocardiogram from that same day showed an ejection fraction of 45 to 50%. Weight is a problem that she has not been able to solve. Activity is a problem that she has not yetdecided to solve. Lipids on current medications are marvelously well controlled. Blood pressure on current medications tends to be controlled a little bit better than it should be, with occasional dizziness noted and a concern about small vertebral arteries that a neurologist felt back in 2002 whenanayeli had an episode of aphasia that she would be better off taking Coumadin and she has faithfully remained on Coumadin since that time. <FONT FACE=System> PAST HISTORY Past Medical Illnesses: IBS, depression, sarcoid, sleep apnea, CML, TIA, vertebral art. narrowing (keep SBP up a bit), asthma, CPAP machine Past Cardiac Illnesses: CHF,LBBB, Idiopathic Dilated Cardiomyapathy, arrhythmia when low K+ Cardiology Procedures-Invasive: , cardiac cath (left) Cardiology Procedures-Noninvasive: , , echocardiogram, echocardiogram January 2002, treadmill Thallium, Echo 06-10, BioZ 06-10 Cardiac Cath Results: nl. coronaries,EF 50-55% Left Ventricular Ejection Fraction: 25 PMHx Echo Results: LA size, Echo 06-10 EF 30-35% FAMILY HISTORY: Father - quadruple bypass; Mother - CVA, hemorrhagic; CARDIAC RISK FACTORS Tobacco Abuse: negative; Family [...] history;Residence - lives alone; Place of - [place]; Hours Worked - 40 hours per week; Spouse's Occupation - ; REVIEW OF SYSTEMS GENERAL decreased exercise tolerance, increased fatigue INTEGUMENTARY denies any change in hair or nails, rashes, or skin lesions. EYES wears eye glasses/contact lenses EARS, NOSE, THROAT, MOUTH denies any hearing loss, epistaxis, hoarseness or difficulty speaking. RESPIRATORY dyspnea with exertion, sleep apnea, positive for dyspnea with exertion CARDIOVASCULAR chest pain, occ. ABDOMINAL denies change [...] bruising PHYSICAL EXAMINATION VITAL SIGNS: Blood Pressure: CONSTITUTIONAL cooperative, alert and oriented,well developed, well [...] appropriate, oriented to time, person and place. IMPRESSIONS/PLAN <FONT FACE=SYSTEM>Given recent cardiac evaluations, I cannot believe that the right arm is related to the heart in any particular way but suspect that it is related to her overall general well being and functional capacity. I think if we get her to exercise and to be active on a routine basis things will get better. I would like to refer her to physical therapy for that reason for conditioning and increase of activity and would like to encourage her to walk or be active for 60 to 90 minutes every day of the world that is possible. This very nice lady looks at me as if I am a little bit crazy when I make these recommendations. I am not sure I know what else to recommend for her, as additional medications do not sound like they are worthwhile, additional examinations of her head do not seem reasonable, although perhaps she might want to visit the neurologist to see if he has any thoughts about the right arm feeling and/or paraesthesias, and I think we have worked the heart well over these last many years and that at the present time she does not have exercise- related chest discomfort, palpitations, or awareness of heart irregularity, dizziness, or fainting. The breathlessness I am convinced is related to deconditioning. It is a pleasure seeing this nice lady. She will be visiting Dr. Farah this fall and I think she should stay with him, as I think he, from reading his notes, has gained her confidence and she is quite comfortable with him and appreciates his help. By the way, we did chat about her 35-year-old son who has mild decreased left ventricular function and I wonder whether she and her son represent a cohort of people with some form of familial cardiomyopathy. Along those lines, we will ask Dr. Farah to consider whether she and he both need additional testing or might come under the hospices of one of the studies that tries to identify genetic naveen ologies of myopathies. Please let me know if there are any questions or if I can add anything to her care. I do not see that I would do anything differently in terms of medications or support. One question about the need for psychological support or psychiatric support might be made by someone who knows her better than Saul. Jaspreet Dawson M.D. documented in this encounter Plan of Treatment Upcoming Encounters Date Type Department Care Team (Late st Contact Info) Description 06/14/2024 1:00 PM CDT Office Visit [facility] [address] 3rd [place] [phone] Hector Goode MD [address] [place] [address] documented as of this encounter Visit Diagnoses Not on filedocumented in this encounter Care Teams Instrument Processing Tech Relationship Specialty Start Date End Date Marcos Sandoval MD NO INFO AVAILABLE 10/03/22 PCP - General 03/27/99 08/11/19 Korin Lamb MD [address] , [address] [address] PCP - General Family Practice 08/12/19 03/15/21 Jasmin Maradiaga PA-C [address] , [address] [address] PCP - General Family Medicine 03/16/21 Hector Goode MD [address] [place] [address] Neurology 05/01/17 John Cancino MD [address] [facility] [id number] [place] [address] Family Medicine - Sports Medicine 07/30/17 Marcos Sandoval MD NO INFO AVAILABLE 10/03/22 Assigned PCP 02/08/18 06/05/19 Korin Lamb MD [address] [place] [address] Assigned PCP 06/06/19 04/29/20 Carl Farah MD [address] [facility] [address] [place] [phone] Assigned Heart and Vascular Provider 12/31/19 12/16/20 Marcos Sandoval MD NO INFO AVAILABLE 10/03/22 Assigned PCP 04/30/20 05/06/20 Korin Lamb MD [address], [address] [place] [address] Assigned PCP 05/07/20 05/28/20 Gavi Cloud MD [address] [place] [address] Assigned PCP 05/29/20 01/06/21 Jasmin Maradiaga PA-C [address], [address] [place] [address] Assigned PCP 01/07/21 09/28/21 Itzel Polk APRN MELTER SUPERVISOR ELECTRIC ARC FURNACE NO INFO AVAILABLE 12/27/2021 Assigned Heart and Vascular Provider 12/17/20 02/17/21 Carl Farah MD [address] [place] [phone] Assigned Heart and Vascular Provider 02/18/21 12/14/21 Gaiv Cloud MD [address] [place] [address] Assigned PCP 09/29/21 10/19/21 Jasmin Maradiaga PA-C [address], [address] [place] [address] Assigned PCP 10/20/21 Itzel Polk APRN MELTER SUPERVISOR ELECTRIC ARC FURNACE NO INFO AVAILABLE 12/27/2021 Assigned Heart and Vascular Provider 12/15/21 05/17/22 Carl Farah MD [address] [place] [phone] Assigned Heart and Vascular Provider 05/18/22 Hector Goode MD [address] [facility] [id number] [place], [place] [id number] Assigned Neuroscience Provider 07/01/23 documented as of this encounter
--- OUTSIDE RECORDS SUMMARY | 2024-02-01 08:24 | XMS_ITS | Encounter Summary ---
Author Organization [facility] Address [address] [place] [address] Care Team Providers Care Welt Wheeler Name Role Phone Roslyn Sandoval MD Primary Care Provider Unav ailable Hector Goode MD Unavailable John Cancino MD Unavailable [phone] Roslyn Sandoval MD Unavailable UnavailKorin Cash MD Unavailable +- 03 Korin Lamb MD Primary Care Provider [phone] Carl Farah MD Unavailable [phone] Roslyn Sandoval MD Unavailable UnavailKorin Cash MD Unavailable +- 03 Gavi Cloud MD Unavailable [phone] Jasmin Maradiaga PA-C Unavailable + Itzel Polk APRN MEDTRONICS TECHNICIAN Unavailable Unavailable Carl Farah MD Unavailable [phone] Jasmin Maradiaga PA-C Primary Care Provid er Gavi Cloud MD Unavailable +[phone] Jasmin Maradiaga PA-C Unavailable + [phone] Itzel Polk APRN MEDTRONICS TECHNICIAN Unavailable Unavailable Carl Farah MD Unavailable [phone] Hector Goode MD Unavailable Reason for Visit * Reason Onset Date Comments Form Request 06/06/2004 Medical records request from Disability Determination Services, 06/05/04. Records mailed 06/06/04, payment of $35.00 will be sent after records are received. Encounter Details Date Type Department Care Team ([facility] Contact Info) Description 06/06/2004 Telephone [facility] [address] [place] [address] [address] [place] [phone] Abstract, Provider Form Request (Medical records request from Disability Determination Services, 06/05/04. 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 Gender Identity Not on file Sexual Orientation Not on file documented as of this encounter Plan of Treatment Upcoming Encounters Date Type Department Care Team ([facility] Contact Info) Description 06/14/2024 1:00 PM CDT Office Visit [facility] [address] 3rd [place] [phone] Hector Goode MD [address] [place] [address] [id number] [place] [address] documented as of this encounter Visit Diagnoses Not on filedocumented in this encounter Care Teams Welt Wheeler Relationship Specialty Start Date End Date Roslyn Sandoval MD NO INFO AVAILABLE 10/03/22 PCP - General 03/27/99 08/11/19 Korin Lamb MD [address] [place] [address] PCP - General Family Practice 08/12/19 03/15/21 Jasmin Maradiaga PA-C [address], [address] [address] PCP - General Family Medicine 03/16/21 Hector Goode MD [address] [address] Neurology 05/01/17 John Cancino MD [address] [address] Family Medicine - Sports Medicine 07/30/17 Roslyn Sandoval MD NO INFO AVAILABLE 10/03/22 Assigned PCP 02/08/18 06/05/19 Korin Lamb MD [address] , [address] [address] Assigned PCP 06/06/19 04/29/20 Carl Farah MD [address] [place] [phone] Assigned Heart and Vascular Provider 12/31/19 12/16/20 Roslyn Sandoval MD NO INFO AVAILABLE 10/03/22 Assigned PCP 04/30/20 05/06/20 Korin Lamb MD [address], [address] [address] Assigned PCP 05/07/20 05/28/20 Gavi Colud MD [address] [place] [address] Assigned PCP 05/29/20 01/06/21 Jasmin Maradiaga PA-C [address] , [facility] [address] [place] [address] Assigned PCP 01/07/21 09/28/21 Itzel Polk APRN MEDTRONICS TECHNICIAN NO INFO AVAILABLE 12/27/2021 Assigned Heart and Vascular Provider 12/17/20 02/17/21 Carl Farah MD [address] [place] [phone] Assigned Heart and Vascular Provider 02/18/21 12/14/21 Gavi Cloud MD [address] [place] [address] Assigned PCP 09/29/21 10/19/21 Jasmin Maradiaga PA-C [address] , [facility] [address] [place] [address] Assigned PCP 10/20/21 Itzel Polk APRN MEDTRONICS TECHNICIAN NO INFO AVAILABLE 12/27/2021 Assigned Heart and Vascular Provider 12/15/21 05/17/22 Carl Farah MD [address] [place] [phone] Assigned Heart and Vascular Provider 05/18/22 Hector Goode MD [address] [place] [address] [id number] [place] [address] Assigned Neuroscience Provider 07/01/23 documented as of this encounter
--- OUTSIDE RECORDS SUMMARY | 2024-02-01 08:24 | XMS_ITS | Encounter Summary ---
Author Organization [facility] Address [address] [place] [address] Care Team Providers Care Pooling Operator Name Role Phone Marcos Sandoval MD Primary Care Provider Unav ailable Hector Goode MD Unavailable John Cancino MD Unavailable [phone] Marcos Sandoval MD Unavailable UnavailKorin Cash MD Unavailable +- 03 Korin Lamb MD Primary Care Provider [phone] Carl Farah MD Unavailable [phone] Marcos Sandoval MD Unavailable UnavailKorin Cash MD Unavailable +- 03 Gavi Cloud MD Unavailable [phone] Jasmin Maradiaga PA-C Unavailable + Ian Polk APRN FACSIMILE MACHINE OPERATOR Unavailable Unavailable Carl Farah MD Unavailable [phone] Jasmin Maradiaga PA-C Primary Care Provid er Gavi Cloud MD Unavailable +[phone] Jasmin Maradiaga PA-C Unavailable + [phone] Ian Polk APRN FACSIMILE MACHINE OPERATOR Unavailable Unavailable Carl Farah MD Unavailable [phone] Hector Goode MD Unavailable Encounter Details Date Type Department Care Team (Late st Contact Info) Description 03/14/2006 Office Visit-[facility] [place] [address] [facility] [address] [place] [phone] Sandra Chris PA-C [address] [place], [place] [phone] Social History Tobacco Use Types Packs/Day Years Used Date Smoking Tobacco: Never Alcohol Use Standard Drinks/Week Comments No 0 (1 standard drink = 0.6 oz pur e alcohol) on occ Comments No Sex and Gender Information Value Date Recorded Sex Assigned at Not on file 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 CURRENT DIAGNOSES 1. - Congestive Heart Failure, [...] Gleevec 100mg, 4 p.o. q.d. CHIEF COMPLAINTS Short of breath HISTORY OF PRESENT ILLNESS This pleasant 61-year-old woman returns to [facility] with concerns for worsening dyspnea. She was added to my schedule today after calling and speaking to one of my nurses. She is followed here by Dr. Farah and Ian Polk. She is a complex patient and has a history of idiopathic cardiomyopathy with an ejection fraction of 30-35%, a history of congestive heart failure, asthma, sleep apnea, and morbid obesity, with associated deconditioning. The patient is usually very good about her diet and monitoring her weight. However, she tells me that on Friday, five days ago, she had ordered a pizza with everything on it. When she woke up the next morning she had gained 8 pounds. She called and spoke to her primary care physician, who instructed her to double her diuretic,taking 40 mg b.i.d. for two days. She did so, and her weight returned to her baseline. Nonetheless,she has been apprehensive during the week about her shortness of breath and has sensed that it has worsened. She does not feel that it is her asthma as she has not had tightness in her chest. She does not have a peak flow meter at home, and so has not been monitoring that objectively, but she states it does not feel like an asthma exacerbation. She has not had any wheezing. She has been taking Coreg for her idiopathic cardiomyopathy, but has been taking this for some time and does not feel thather dyspnea is an exacerbation of her asthma by the Coreg. She describes her worsening dyspnea as being worse with minimal exertion, as well as at rest. On exam today her weight is 269 pounds, equivocal with three weeks ago. Her blood pressure is 130/64, andher heart rate is 64 beats per minute. She appears euvolemic, with no jugular venous distention andtrivial pretibial edema. Her lungs are clear to auscultation, and rate and rhythm are regular. She also had some other questions for me regarding defibrillator implantation as this has been discussed with her in the past. PAST HISTORY Past Medical Illnesses: IBS, depression, [...] Residence - lives alone; Place of - [place]; Spouse's Occupation - ; REVIEW OF SYSTEMS GENERAL weight gain, no change in weight INTEGUMENTARY denies any change in hair or [...] bruising PHYSICAL EXAMINATION VITAL SIGNS: Blood Pressure: 130/64 Sitting, Left arm, large cuff Pulse- 64.00/min. Weight- 269.00 lbs. Height- 66.00 Temperature- .00 [...] oriented to time, person and place. IMPRESSIONS/PLAN Dyspnea. I assured the patient that I did not feel strongly that this is cardiac in etiology. Her weight is stable, and she is showing no symptoms of fluid volume overload today. She appeared quite reassured with this information. I nonetheless encouraged her to keep her appointment with Ian Polk, scheduled for Friday. She agrees with this plan. Time was also spent today in discussion of the indications for a defibrillator, the rationale for its implantation given her health history, and that with the exception of the possibility of inappropriate shocks if she had no arrhythmias it would do nothing but monitor her given that it is unlikelyshe would need pacing. She verbalized understanding of these things. Fifteen minutes of our 25 minute appointment today was spent in discussion of her diagnosis, questions about defibrillator implantation, and medication management of her diagnosis of idiopathic cardiomyopathy. TODAYS ORDERS 1. Return Visit TomorrowToday PM MMurthpy increased shortness of Breath with minimal exertion, Sandra Lo RN, FACSIMILE MACHINE OPERATOR documented in this encounter Plan of Treatment Upcoming Encounters Date Type Department Care Team (Late st Contact Info) Description 06/14/2024 1:00 PM CDT Office Visit [facility] [address] 3rd [place] [address] Hector Goode MD [address] [place] [address] documented as of this encounter Visit Diagnoses Not on filedocumented in this encounter Care Teams Pooling Operator Relationship Specialty Start Date End Date Marcos Sandoval MD NO INFO AVAILABLE 10/03/22 PCP - General 03/27/99 08/11/19 Korin Lamb MD [address] , [address] [address] PCP - General Family Practice 08/12/19 03/15/21 Jasmin Maradiaga PA-C [address] , [address] [address] PCP - General Family Medicine 03/16/21 Hector Goode MD [address] [place] [address] Neurology 05/01/17 John Cancino MD [address] [place] [id number] Family Medicine - Sports Medicine 07/30/17 Marcos Sandoval MD NO INFO AVAILABLE 10/03/22 Assigned PCP 02/08/18 06/05/19 Korin Lamb MD [address], [address] [address] Assigned PCP 06/06/19 04/29/20 Carl Farah MD [address] [place] [phone] Assigned Heart and Vascular Provider 12/31/19 12/16/20 Marcos Sandoval MD NO INFO AVAILABLE 10/03/22 Assigned PCP 04/30/20 05/06/20 Korin Lamb MD [address] [place] [address] Assigned PCP 05/07/20 05/28/20 Gvai Cloud MD [address] [place] [address] Assigned PCP 05/29/20 01/06/21 Jasmin Maradiaga PA-C [address], [address] [place] [address] Assigned PCP 01/07/21 09/28/21 Ian Polk APRN CNP NO INFO AVAILABLE 12/27/2021 Assigned Heart and Vascular Provider 12/17/20 02/17/21 Carl Farah MD [address] [place] [address] Assigned Heart and Vascular Provider 02/18/21 12/14/21 Gavi Cloud MD [address] [place] [address] Assigned PCP 09/29/21 10/19/21 Jasmin Maradiaga PA-C [address], [address] [place] [address] Assigned PCP 10/20/21 Ian Polk APRN FACSIMILE MACHINE OPERATOR NO INFO AVAILABLE 12/27/2021 Assigned Heart and Vascular Provider 12/15/21 05/17/22 Carl Farah MD [address] [facility] [address] [place] [phone] Assigned Heart and Vascular Provider 05/18/22 Hector Goode MD [address] [facility] [id number] [place] [address] Assigned Neuroscience Provider 07/01/23 documented as of this encounter
--- OUTSIDE RECORDS SUMMARY | 2024-02-01 08:24 | XMS_ITS | Encounter Summary ---
Author Organization [facility] Address [address] [place] [address] Care Team Providers Care Electronic Equipment Repairer Name Role Phone Roslyn Sandoval MD Primary Care Provider Unav ailable Hector Goode MD Unavailable John Cancino MD Unavailable [phone] Roslyn Sandoval MD Unavailable UnavailKorin Cash MD Unavailable +- 03 Korin Lamb MD Primary Care Provider [phone] Carl Farah MD Unavailable [phone] Roslyn Sandoval MD Unavailable UnavailKorin Cash MD Unavailable +- 03 Gavi Cloud MD Unavailable [phone] Jasmin Maradiaga PA-C Unavailable + Itzel Polk APRN LINEN SUPERVISOR Unavailable Unavailable Carl Farah MD Unavailable [phone] Jasmin Maradiaga PA-C Primary Care Provid er Gavi Cloud MD Unavailable [phone] Jasmin Maradiaga PA-C Unavailable + [phone] Itzel Polk APRN LINEN SUPERVISOR Unavailable Unavailable Carl Farah MD Unavailable [phone] Hector Goode MD Unavailable Encounter Details Date Type Department Care Team (Late st Contact Info) Description 08/19/2003 Office Visit-[facility] [address] [place] [phone] Unknown, DoctorMD Social History Tobacco Use Types Packs/Day Years Used Date Smoking Tobacco: Never Alcohol Use Standard Drinks/Week Comments No 0 (1 standard drink = 0.6 oz pur e alcohol) on occ Comments No Sex and Gender Information Value Date Recorded Sex Assigned at Not on file 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 DATE: 08/19/2003 GRISELDA LAI DATE OF : 1945 AGE: [age] years old Referring Physician: ROSLYN SANDOVAL Referring Clinic: [facility]. CURRENT DIAGNOSES 1. - Congestive Heart Failure, 428.0 2. 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 - Hypercholesterolemia, 272.0 ALLERGIES Sulfa MEDICATIONS 1. Potassium Chloride 20 mEq, 1/2 tab q.d. 2. Lasix 40 mg, 40 in am, 20 in pm 3. Lipitor 10 mg, 1 p.o. q.d. 4. Spironolactone 25 Mg, 1 p.o. q.d. 5. Avapro 75 mg, Take as Directed 6. Coreg 12.5 Mg, 1 p.o. b.i.d. 7. Zoloft 50 mg, 1 p.o. q.d. 8. Coumadin 6 mg, Take as Directed 9. Gleevec 100mg, 4 p.o. q.d. 10. Advair 100/50, Take as Directed CHIEF COMPLAINTS F/u HISTORY OF PRESENT ILLNESS Griselda Lai returns for follow up of her idiopathic cardiomyopathy and heart failure. She had increased ankle edema previously which was due to increased salt intake and Vioxx. She is now off Vioxx and uses Ultracet as needed for pain. Her ankle edema has returned to baseline but her baseline ischronic edema which she has had for many years, probably due to mechanical issues and being overweight. Her BNP test for congestive heart failure was actually negative a few months ago. She reports doing well. She does note some weakness in her left arm. She saw an orthopedic doctor who gave her a cortisone injection to no effect. She also describes numbness or paresthesia in the arm, and I suggested she talk to Dr. Sandoval, and she may wish to call her neurologist given that she had the unclear documentation of a TIA in the past. I am going to increase her Coreg to 12.5 mg b.i.d. for prevention of worsening cardiomyopathy. Otherwise, she is doing well and I will see her back in six months. __ PAST HISTORY Past Medical Illnesses: hyperlipidemia, IBS, depression,sarcoid,sleep apnea,CML, TIA, vertebral art. narrowing (keep SBP upa bit) Past Cardiac Illnesses: CHF,LBBB, Idiopathic Dilated Cardiomyapathy Cardiology Procedures-Invasive: , cardiac cath (left) Cardiology Procedures-Noninvasive: , , echocardiogram, echocardiogram January 2002, treadmill Thallium, Echo 06-10, BioZ 06-10 Cardiac Cath Results: nl. coronaries,EF 50-55% Left Ventricular Ejection Fraction: 25 PMHx Echo Results: LA size, Echo 06-10 EF 30-35% PHYSICAL EXAMINATION VITAL SIGNS: Blood Pressure: 128/68 / Pulse- .00/min. Weight- 263.00 lbs. Height- 66.00 Temperature- .00 CONSTITUTIONAL cooperative, [...] time, person and place. MEDICATIONS UPDATED TODAY: Avapro 75 mg, Take as Directed, DIRECTED Coreg 12.5 Mg, 1 p.o. b.i.d., #180 MEDICATION STOPPED TODAY: Cozaar 50 Mg IMPRESSIONS/PLAN I have given her a note to ask Dr. Sandoval to check cholesterol and electrolytes and creatinine once or twice a year and to forward those results to our office. TODAYS ORDERS 1. Return Visit 6 months Carl Farah M.D. documented in this encounter Plan of Treatment Upcoming Encounters Date Type Department Care Team (Late st Contact Info) Description 06/14/2024 1:00 PM CDT Office Visit [facility] Neurology [address] [place] [address] Hector Goode MD [address] [address] documented as of this encounter Visit Diagnoses Not on filedocumented in this encounter Care Teams Electronic Equipment Repairer Relationship Specialty Start Date End Date Roslyn Sandoval MD NO INFO AVAILABLE 10/03/22 PCP - General 03/27/99 08/11/19 Korin Lamb MD [address] , [address] [address] PCP - General Family Practice 08/12/19 03/15/21 Jasmin Maradiaga PA-C [address] , [address] [address] PCP - General Family Medicine 03/16/21 Hector Goode MD [address] [place] [address] Neurology 05/01/17 John Cancino MD [address] [place] [id number] Family Medicine - Sports Medicine 07/30/17 Roslyn Sandoval MD NO INFO AVAILABLE 10/03/22 Assigned PCP 02/08/18 06/05/19 Korin Lamb MD [address], [address] [address] Assigned PCP 06/06/19 04/29/20 Carl Farah MD [address] [place] [phone] Assigned Heart and Vascular Provider 12/31/19 12/16/20 Roslyn Sandoval MD NO INFO AVAILABLE 10/03/22 Assigned PCP 04/30/20 05/06/20 Korin Lamb MD [address] [place] [address] Assigned PCP 05/07/20 05/28/20 Gavi Cloud MD [address] [place] [address] Assigned PCP 05/29/20 01/06/21 Jasmin Maradiaga PA-C [address], [address] [place] [address] Assigned PCP 01/07/21 09/28/21 Itzel Polk APRN CNP NO INFO AVAILABLE 12/27/2021 Assigned Heart and Vascular Provider 12/17/20 02/17/21 Carl Farah MD [address] [place] [address] Assigned Heart and Vascular Provider 02/18/21 12/14/21 Gavi Cloud MD [address] [place] [address] Assigned PCP 09/29/21 10/19/21 Jasmin Maradiaga PA-C [address], [address] [place] [address] Assigned PCP 10/20/21 Itzel Polk APRN LINEN SUPERVISOR NO INFO AVAILABLE 12/27/2021 Assigned Heart and Vascular Provider 12/15/21 05/17/22 Carl Farah MD [address] [facility] [address] [place] [phone] Assigned Heart and Vascular Provider 05/18/22 Hector Goode MD [address] [facility] [id number] [place] [address] Assigned Neuroscience Provider 07/01/23 documented as of this encounter
--- OUTSIDE RECORDS SUMMARY | 2024-02-01 08:24 | XMS_ITS | Encounter Summary ---
Author Organization [facility] Address [address] [place] [address] Care Team Providers Care School Aide Name Role Phone Marcos Sandoval MD Primary Care Provider Unav ailable Hector Goode MD Unavailable John Cancino MD Unavailable [phone] Marcos Sandoval MD Unavailable UnavailKorin Cash MD Unavailable +- 03 Korin Lamb MD Primary Care Provider [phone] Carl Farah MD Unavailable [phone] Marcos Sandoval MD Unavailable UnavailKorin Cash MD Unavailable +- 03 Gavi Cloud MD Unavailable [phone] Jasmin Maradiaga PA-C Unavailable + Itzel Polk APRN DELIMBER OPERATOR Unavailable Unavailable Carl Farah MD Unavailable [phone] Jasmin Maradiaga PA-C Primary Care Provid er Gavi Cloud MD Unavailable +[phone] Jasmin Maradiaga PA-C Unavailable + [phone] Itzel Polk APRN DELIMBER OPERATOR Unavailable Unavailable Carl Farah MD Unavailable [phone] Hector Goode MD Unavailable Encounter Details Date Type Department Care Team (Late st Contact Info) Description 08/15/2004 Office Visit-[facility] [address] [place] [phone] Unknown, DoctorMD Social History Tobacco Use Types Packs/Day Years Used Date Smoking Tobacco: Never Alcohol Use Standard Drinks/Week Comments No 0 (1 standard drink = 0.6 oz pur e alcohol) on occ Comments No Sex and Gender Information Value Date Recorded Sex Assigned at Not on file 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. CURRENT DIAGNOSES 1. - Congestive Heart Failure, 428.0 2. 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 - Hypercholesterolemia, 272.0 ALLERGIES Sulfa MEDICATIONS (including any changes made today) 1. Spironolactone 25 Mg, 1 p.o. q.d. 2. Lipitor 20 mg, 1/2 tab q.d. 3. Potassium Chloride 20 Meq, on hold 4. Lasix 40 Mg, 20 in am, 20 in pm 5. Zoloft 50 mg, 1 p.o. q.d. 6. Coumadin 6 mg, Take as Directed 7. Gleevec 100mg, 4 p.o. q.d. 8. Advair 100/50, Take as Directed 9. Coreg 12.5 Mg, 1 p.o. b.i.d. 10. Avapro 150 mg, 1/2 tab q.d. CHIEF COMPLAINTS F/u bp and sob HISTORY OF PRESENT ILLNESS Ms. Lai is a very pleasant 59-year-old woman with a history of cardiomyopathy. She also has a history of hyperlipidemia. Angiography to evaluated her cardiomyopathy demonstrated normal coronary arteries. Echocardiogram, done in May 2003, showed ejection fraction of 35%. She has been on an excellent regimen for her cardiomyopathy and has done reasonably well. She reports chronic dyspnea on exertion but denies any PND, orthopnea, dyspnea at rest or cough. She has ongoing lower extremity edema which has not changed significantly in recent months. She is here today for followup of worsening lightheadedness combined with low home blood pressure readings. She reports her blood pressure has been as low as 85 systolic at home, in the morning, in the past week or so. She notices her weight is up but she reports this has been steadily climbing andshe believes it is real weight rather than water weight. On exam, blood pressure is 100/70. Pulse is 60 and regular. Her weight is 265. Her lungs are clear to auscultation bilaterally. She has no jugular venous distention. She does have stable 1+ bilaterally pitting edema. All other review of systems, past medical history and physical exam findings are noted below. PAST HISTORY Past Medical Illnesses: [...] Residence - lives alone; Place of - [place]; Hours Worked - 40 hours per week; Spouse's Oc cupation - disabled; REVIEW OF SYSTEMS GENERAL weight gain of approximately 5 lbs INTEGUMENTARY denies any change in hair or nails, rashes, or skin lesions. EYES wears eye glasses/contact lenses EARS, NOSE, THROAT, MOUTH denies any hearing loss, epistaxis, hoarseness or difficulty speaking. RESPIRATORY dyspnea with exertion, sleep apnea CARDIOVASCULAR light headedness, edema ABDOMINAL denies change in bowel habits, dyspepsia, ulcer disease, hematochezia or melena. GENITOURINARY-FEMALE positive for nocturia, post menopausal on hormonal replacement MUSCULOSKELETAL denies any history of arthritic symptoms or back problems. NEUROLOGICAL tia in the past, no further neuro events-follows with neurology PSYCHIATRIC denies any history of depression, substance abuse or change in cognitive functions. ENDOCRINE hyperlipidemia, weight gain HEMATOLOGICAL/IMMUNOLOGIC easy bruising PHYSICAL EXAMINATION VITAL SIGNS: Blood Pressure: 100/54 Sitting, Left arm, large cuff 100/70 Retaken by CONTRACTING EXECUTIVE/PA Pulse- 64.00/min. Weight- 265.00 lbs. Height- 65.00 Temperature- .00 CONSTITUTIONAL cooperative, [...] time, person and place. MEDICATIONS UPDATED TODAY: Potassium Chloride 20 Meq, on hold, #90 Lasix 40 Mg, 20 in am, 20 in pm, 135 tablets IMPRESSIONS/PLAN Griselda is experiencing, I believe, some orthostatic hypotension. I would like to keep her systolic blood pressure around 100 or over, rather than keeping it on the low side, as she has vertebral artery narrowing. In looking at her medications and what to modify, she is already just taking 75 mg of Avapro and I would like her to continue to have that benefit. Therefore, I have reduced her Lasix dose from 40 in the morning and 20 in the evening to 20 mg b.i.d. I put her potassium chloride on hold, as she is continuing to take spironolactone. I will have a basic metabolic panel drawn today and then again when I see her in followup. She will have an echocardiogram done next week and I will follow up on her to assess how these changes have impacted her shortness of breath. We also talked aboutthe importance of diet and weight loss and she certainly understands this needs to be a priority. She is not sure whether her asthma is properly treated and I have asked her to speak with her primaryabout this. As always, she was encouraged to contact us prior to her next visit, otherwise I will see her next week to go over the results of her echocardiogram. TODAYS ORDERS 1. 2D, color flow, doppler Today 2. Return Visit 1 week 3. Basic Metabolic Panel Today Yumiko Hernandez documented in this encounter Plan of Treatment Upcoming Encounters Date Type Department Care Team (Late st Contact Info) Description 06/14/2024 1:00 PM CDT Office Visit [facility]rology Clinic [address]rd [place] [phone] Hector Goode MD [address] [place] [address] documented as of this encounter Visit Diagnoses Not on filedocumented in this encounter Care Teams School Aide Relationship Specialty Start Date End Date Marcos Sandoval MD NO INFO AVAILABLE 10/03/22 PCP - General 03/27/99 08/11/19 Korin Lamb MD [address] , [address] [address] PCP - General Family Practice 08/12/19 03/15/21 Jasmin Maradiaga PA-C [address] , [address] [address] PCP - General Family Medicine 03/16/21 Hector Goode MD [address] [place] [address] Neurology 05/01/17 John Cancino MD [address] [facility] [id number] [place] [address] Family Medicine - Sports Medicine 07/30/17 Marcos Sandoval MD NO INFO AVAILABLE 10/03/22 Assigned PCP 02/08/18 06/05/19 Korin Lamb MD [address] [place] [address] Assigned PCP 06/06/19 04/29/20 Carl Farah MD [address] [facility] [address] [place] [phone] Assigned Heart and Vascular Provider 12/31/19 12/16/20 Marcos Sandoval MD NO INFO AVAILABLE 10/03/22 Assigned PCP 04/30/20 05/06/20 Korin Lamb MD [address], [address] [place] [address] Assigned PCP 05/07/20 05/28/20 Gavi Cloud MD [address] [place] [address] Assigned PCP 05/29/20 01/06/21 Jasmin Maradiaga PA-C [address], [address] [place] [address] Assigned PCP 01/07/21 09/28/21 Itzel Polk GRADE FOREMAN DELIMBER OPERATOR NO INFO AVAILABLE 12/27/2021 Assigned Heart and Vascular Provider 12/17/20 02/17/21 Carl Farah MD [address] [place] [phone] Assigned Heart and Vascular Provider 02/18/21 12/14/21 Gavi Cloud MD [address] [place] [address] Assigned PCP 09/29/21 10/19/21 Jasmin Maradiaga PA-C [address], [address] [place] [address] Assigned PCP 10/20/21 Itzel Polk APRN DELIMBER OPERATOR NO INFO AVAILABLE 12/27/2021 Assigned Heart and Vascular Provider 12/15/21 05/17/22 Carl Farah MD [address] [place] [phone] Assigned Heart and Vascular Provider 05/18/22 Hector Goode MD [address] [facility] [id number] [place], [place] [address] Assigned Neuroscience Provider 07/01/23 documented as of this encounter
--- OUTSIDE RECORDS SUMMARY | 2024-02-01 08:24 | XMS_ITS | Encounter Summary ---
Author Organization [facility] Address [address] [place] [address] Care Team Providers Care Mud Worker Name Role Phone Marcos Sandoval MD Primary Care Provider Unav ailable Hector Goode MD Unavailable John Cancino MD Unavailable [phone] aMrcos Sandoval MD Unavailable UnavailKorin Cash MD Unavailable +- 03 Korni Lamb MD Primary Care Provider [phone] Carl Farah MD Unavailable [phone] Marcos Sandoval MD Unavailable UnavailKorin Cash MD Unavailable +- 03 Gavi Cloud MD Unavailable [phone] Jasmin Maradiaga PA-C Unavailable + Itzel Polk APRN MENSWEAR SALESPERSON Unavailable Unavailable Carl Farah MD Unavailable [phone] Jasmin Maradiaga PA-C Primary Care Provid er Gavi Cloud MD Unavailable +[phone] Jasmin Maradiaga PA-C Unavailable + [phone] Itzel Polk APRN MENSWEAR SALESPERSON Unavailable Unavailable Carl Farah MD Unavailable [phone] Hector Goode MD Unavailable Encounter Details Date Type Department Care Team (Late st Contact Info) Description 04/27/2004 Office Visit-[facility] [address] [place] [phone] Unknown, DoctorMD Social History Tobacco Use Types Packs/Day Years Used Date Smoking Tobacco: Never Alcohol Use Standard Drinks/Week Comments No 0 (1 standard drink = 0.6 oz pur e alcohol) on occ Comments No Sex and Gender Information Value Date Recorded Sex Assigned at Not on file 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 CURRENT DIAGNOSES 1. - Congestive Heart Failure, 428.0 2. 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 - Hypercholesterolemia, 272.0 ALLERGIES Sulfa MEDICATIONS (including any changes made today) 1. Lasix 40 Mg, 40 in am, 20 in pm 2. Lipitor 20 mg, 1/2 tab q.d. 3. Spironolactone 25 Mg, 1 p.o. q.d. 4. Zoloft 50 mg, 1 p.o. q.d. 5. Coumadin 6 mg, Take as Directed 6. Gleevec 100mg, 4 p.o. q.d. 7. Advair 100/50, Take as Directed 8. Potassium Chloride 20 Meq, 1/2 tab q.d. 9. Coreg 12.5 Mg, 1 p.o. b.i.d. 10. Avapro 150 mg, 1/2 tab q.d. CHIEF COMPLAINTS F/u HISTORY OF PRESENT ILLNESS Griselda Lai is a very pleasant 59-year-old female who is here today for follow up regarding her hyperlipidemia. As you know, her history is significant for idiopathic cardiomyopathy. She had an angiogram that demonstrated normal coronary arteries. Her most recent echocardiogram showed ejection fraction of 35 percent. Ms. Lai is here today primarily to review the results of her lipid profile. The patient was last seen by Carl Farah M.D. in February of last year, at which time he wanted her to increase her Lipitor to 20 mg to achieve LDL goal of less than 130; however, the patient questioned this and therefore did not increase her Lipitor. She returns to the clinic today only taking Lipitor 10 mg daily. She did have a fasting lipid profile drawn prior to our visit this morning; however, we are no longer using the Point of Care machine for lipid results; therefore, her lipid profile results will not be back until early next week. Currently, Ms. Lai states that she is doing very well. She denies any chest, arm, neck, back, or jaw discomfort. She continues to experience dyspnea on exertion; however, this is stable and chronic for the patient. This has not progressed or worsened recently. She denies any lightheadedness or dizziness, syncope or near-syncope. She also denies any orthopnea, paroxysmal nocturnal dyspnea or worsening peripheral edema. The patient has chronic ankle edema that gets progressively worse throughout the day and is pretty much resolved in the morning when the patient wakes up. PAST HISTORY Past Medical Illnesses: hyperlipidemia, IBS, [...] Results: LA size, Echo 06-10 EF 30-35% <B><FONT FACE=System> FAMILY HISTORY: Father - quadruple bypass; Mother [...] Residence - lives alone; Place of - [place]; Hours Worked - 40 hours per week; Spouse's Oc cupation - disabled; REVIEW OF SYSTEMS GENERAL weight gain INTEGUMENTARY denies any change in hair or nails, rashes, or skin lesions. EYES wears eye glasses/contact lenses EARS, NOSE, THROAT, MOUTH denies any hearing loss, epistaxis, hoarseness or difficulty speaking. RESPIRATORY dyspnea with exertion, sleep apnea CARDIOVASCULAR edema ABDOMINAL denies change in bowel habits, dyspepsia, ulcer disease, hematochezia or melena. GENITOURINARY-FEMALE positive for nocturia, post menopausal on hormonal replacement MUSCULOSKELETAL denies any history of arthritic symptoms or back problems. NEUROLOGICAL tia in the past, no further neuro events-follows with neurology PSYCHIATRIC denies any history of depression, substance abuse or change in cognitive functions. ENDOCRINE hyperlipidemia HEMATOLOGICAL/IMMUNOLOGIC easy bruising PHYSICAL EXAMINATION VITAL SIGNS: Blood Pressure: 124/68 Sitting, Left arm, large cuff Pulse- 70.00/min. Weight- 260.00 lbs. Height- 65.00 Temperature- .00 CONSTITUTIONAL cooperative, [...] time, person and place. MEDICATIONS UPDATED TODAY: Lipitor 20 mg, 1/2 tab q.d., DIRECTED MEDICATION STOPPED TODAY: Lipitor 20 mg IMPRESSIONS/PLAN </B><FONT FACE=Novelty Printing Machine Operator New> 1. History of idiopathic cardiomyopathy. The patient is tolerating her heart failure medications well at this time. She is without any signs or symptoms of heart failure on examination today. The patient will have a follow up echocardiogram in the fall as well as a follow up office visit with Carl Farah M.D. She is encouraged to contact us prior to that time, however, should she have heart failure-type symptoms. 2. Dyslipidemia. I will have the patient remain on Lipitor 10 mg for the time being. Once we have the results back from her lipid profile early next week, if her LDL is not below 130, which I suspect that it will not be, we will increase her Lipitor to 20 mg daily. We will then need to repeat a lipid profile in six to eight weeks. If her LDL does not improve to less than 130 after increasing Lipitor to 20 mg, we can consider either increasing it to 40 mg daily or adding a second agent, such as Zetia. <B><FONT FACE=System> Chato Parnell NP documented in this encounter Plan of Treatment Upcoming Encounters Date Type Department Care Team (Late st Contact Info) Description 06/14/2024 1:00 PM CDT Office Visit [facility] [address] 3rd [place] [phone] Hector Goode MD [address] [place] [address] documented as of this encounter Visit Diagnoses Not on filedocumented in this encounter Care Teams Mud Worker Relationship Specialty Start Date End Date Marcos Sandoval MD NO INFO AVAILABLE 10/03/22 PCP - General 03/27/99 08/11/19 Korin Lamb MD [address] , [address] [address] PCP - General Family Practice 08/12/19 03/15/21 Jasmin Maradiaga PA-C [address] , [address] [address] PCP - General Family Medicine 03/16/21 Hector Goode MD [address] [place] [address] Neurology 05/01/17 John Cancino MD [address] [facility] [id number] [place] [address] Family Medicine - Sports Medicine 07/30/17 Marcos Sandoval MD NO INFO AVAILABLE 10/03/22 Assigned PCP 02/08/18 06/05/19 Korin Lamb MD [address] [place] [address] Assigned PCP 06/06/19 04/29/20 Carl Farah MD [address] [facility] [address] [place] [phone] Assigned Heart and Vascular Provider 12/31/19 12/16/20 Marcos Sandoval MD NO INFO AVAILABLE 10/03/22 Assigned PCP 04/30/20 05/06/20 Korin Lamb MD [address], [address] [place] [address] Assigned PCP 05/07/20 05/28/20 Gavi Cloud MD [address] [place] [address] Assigned PCP 05/29/20 01/06/21 Jasmin Maradiaga PA-C [address], [address] [place] [address] Assigned PCP 01/07/21 09/28/21 Itzel Polk APRN MENSWEAR SALESPERSON NO INFO AVAILABLE 12/27/2021 Assigned Heart and Vascular Provider 12/17/20 02/17/21 Carl Farah MD [address] [place] [phone] Assigned Heart and Vascular Provider 02/18/21 12/14/21 Gavi Cloud MD [address] [place] [address] Assigned PCP 09/29/21 10/19/21 Jasmin Maradiaga PA-C [address], [address] [place] [address] Assigned PCP 10/20/21 Itzel Polk APRN MENSWEAR SALESPERSON NO INFO AVAILABLE 12/27/2021 Assigned Heart and Vascular Provider 12/15/21 05/17/22 Carl Farah MD [address] [place] [phone] Assigned Heart and Vascular Provider 05/18/22 Hector Goode MD [address] [facility] [id number] [place], [place] [id number] Assigned Neuroscience Provider 07/01/23 documented as of this encounter
--- OUTSIDE RECORDS SUMMARY | 2024-02-01 08:24 | XMS_ITS | Encounter Summary ---
Author Organization [facility] Address [address] [place] [address] Care Team Providers Care Dock Operator Name Role Phone Marcos Sandoval MD Primary Care Provider Unav ailable Hector Goode MD Unavailable John Cancino MD Unavailable [phone] Marcos Sandoval MD Unavailable UnavailKorin Cash MD Unavailable +- 03 Korin Lamb MD Primary Care Provider [phone] Carl Farah MD Unavailable [phone] Marcos Sandoval MD Unavailable UnavailKorin Cash MD Unavailable +- 03 Gavi Cloud MD Unavailable [phone] Jasmin Maradiaga PA-C Unavailable + Itzel Polk APRN FIRE MEDIC Unavailable Unavailable Carl Farah MD Unavailable [phone] Jasmin Maradiaga PA-C Primary Care Provid er Gavi Cloud MD Unavailable +[phone] Jasmin Maradiaga PA-C Unavailable + [phone] Itzel Polk APRN FIRE MEDIC Unavailable Unavailable Carl Farah MD Unavailable [phone] Hector Goode MD Unavailable Encounter Details Date Type Department Care Team (Late st Contact Info) Description 02/15/2004 Office Visit-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 DATE: 02/15/2004 GRISELDA LAI DATE OF : 1945 AGE: [age] years old Referring Physician: MARCOS SANDOVAL Referring Clinic: [facility]. CURRENT DIAGNOSES 1. - Congestive Heart Failure, 428.0 2. 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 - Hypercholesterolemia, 272.0 ALLERGIES Sulfa MEDICATIONS (including any changes made today) 1. Lasix 40 Mg, 40 in am, 20 in pm 2. Avapro 150 mg, 1 p.o. q.d. 3. Lipitor 20 mg, 1 p.o. q.d. 4. Spironolactone 25 Mg, 1 p.o. q.d. 5. Zoloft 50 mg, 1 p.o. q.d. 6. Coumadin 6 mg, Take as Directed 7. Gleevec 100mg, 4 p.o. q.d. 8. Advair 100/50, Take as Directed 9. Potassium Chloride 20 Meq, 1/2 tab q.d. 10. Coreg 12.5 Mg, 1 p.o. b.i.d. CHIEF COMPLAINTS F/u on chf HISTORY OF PRESENT ILLNESS Griselda Lai returns for follow up of her idiopathic dilated cardiomyopathy. She has normal coronary arteries. Her ejection fraction has waxed and waned from a low of 20 to completely normal. Her most recent ejection fraction was 35 percent. She still has some ankle edema. It is better off of Vioxx, and she self-regulates her Lasix. She still has episodes of exertional shortness of breath but no chest pain. She has occasional lightheadedness, especially when she moves around a lot, and some of this may be due to her heart medications and the fact that she has some vertebral artery disease. I told her that she could check her blood pressure at home during another lightheaded spell, and if her blood pressure is low I would like to drop her Avapro to 75 mg per day. I will not be increasingthe Coreg because of her complaint of low blood pressure, and the neurologist wished to keep her blood pressure somewhat higher because of her vertebral basilar insufficiency. She is not having chestpain or actual syncope. PAST HISTORY Past Medical Illnesses: hyperlipidemia, IBS, depression,sarcoid,sleep apnea,CML, TIA, vertebral art. narrowing (keep SBP upa bit) Past Cardiac Illnesses: CHF,LBBB, Idiopathic Dilated Cardiomyapathy Cardiology Procedures-Invasive: , cardiac cath (left) Cardiology Procedures-Noninvasive: , , echocardiogram, echocardiogram January 2002, treadmill Thallium, Echo 06-10, BioZ 06-10 Cardiac Cath Results: nl. 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 ENDOCRINE hyperlipidemia HEMATOLOGICAL/IMMUNOLOGIC easy bruising IMPRESSION/PLAN The patient has asked for a note regarding discontinuation of work for medical reasons. Her ejection fraction is 35 percent, as stated; however, it has actually been lower in the past. Some of this may be due to overexertion. The fact that her job requires her to get up and down frequently, and thefact that she already has some orthostatic symptoms, I believe she would be entitled to discontinuing work because of this. Her lipid profile shows that her LDL is still running high. I asked her to follow up with Dr. Sandoval, but she asked instead if I would do that. Will therefore raise her Lipitor to 20 mg, aiming for LDL of 130 or less since she has coronary disease. We will have her come back in two months for that, and if her lipid profile is at goal, we will turn her back to Dr. Sandoval's good care. Total consult time: 20 minutes, all counseling TODAYS ORDERS 1. Return Visit 1 year 2. 2D, color flow, doppler 1 year 3. Lipid profile/ALT 2 months 4. F/U with Chato Parnell, MSN, EMERGENCY ROOM DOCTOR cholestec Carl Farah M.D. documented in this encounter Plan of Treatment Upcoming Encounters Date Type Department Care Team (Late st Contact Info) Description 06/14/2024 1:00 PM CDT Office Visit [facility] [address]rd [place] [phone] Hector Goode MD [address] [place] [phone] documented as of this encounter Visit Diagnoses Not on filedocumented in this encounter Care Teams Dock Operator Relationship Specialty Start Date End Date Marcos Sandoval MD NO INFO AVAILABLE 10/03/22 PCP - General 03/27/99 08/11/19 Korin Lamb MD [address] , [address] [address] PCP - General Family Practice 08/12/19 03/15/21 Jasmin Maradiaga PA-C [address] , [address] [address] PCP - General Family Medicine 03/16/21 Hector Goode MD [address] [place] [address] [phone] Neurology 05/01/17 John Cancino MD [address] [facility] [id number] [place] [address] Family Medicine - Sports Medicine 07/30/17 Marcos Sandoval MD NO INFO AVAILABLE 10/03/22 Assigned PCP 02/08/18 06/05/19 Korin Lamb MD [address], [address] [place] [address] Assigned PCP 06/06/19 04/29/20 Carl Farah MD [address] [facility] [address] [place] [phone] Assigned Heart and Vascular Provider 12/31/19 12/16/20 Marcos Sandoval MD NO INFO AVAILABLE 10/03/22 Assigned PCP 04/30/20 05/06/20 Korin Lamb MD [address], [address] [place] [address] Assigned PCP 05/07/20 05/28/20 Gavi Cloud MD [address] [place] [address] Assigned PCP 05/29/20 01/06/21 Jasmin Maradiaga PA-C [address], [address] [place] [address] Assigned PCP 01/07/21 09/28/21 Itzel Polk APRN FIRE MEDIC NO INFO AVAILABLE 12/27/2021 Assigned Heart and Vascular Provider 12/17/20 02/17/21 Carl Farah MD [address] [place] [phone] Assigned Heart and Vascular Provider 02/18/21 12/14/21 Gavi Cloud MD [address] [place] [address] Assigned PCP 09/29/21 10/19/21 Jasmin Maradiaga PA-C [address], [address] [place] [address] Assigned PCP 10/20/21 Itzel Polk APRN [employer] MEDIC NO INFO AVAILABLE 12/27/2021 Assigned Heart and Vascular Provider 12/15/21 05/17/22 Carl Farah MD [address] [place] [phone] Assigned Heart and Vascular Provider 05/18/22 Hector Goode MD [address] [facility] [id number] [place], [place] [address] Assigned Neuroscience Provider 07/01/23 documented as of this encounter
--- OUTSIDE RECORDS SUMMARY | 2024-02-01 08:24 | XMS_ITS | Encounter Summary ---
Author Organization [facility] Address [address] [place] [address] Care Team Providers Care Roller Mill Tender Name Role Phone Marcos Sandoval MD Primary Care Provider Unav ailable Hector Goode MD Unavailable John Cancino MD Unavailable [phone] Marcos Sandoval MD Unavailable UnavailKorin Cash MD Unavailable +- [phone] Korin Lamb MD Primary Care Provider [phone] Carl Farah MD Unavailable [phone] Marcos Sandoval MD Unavailable UnavailKorin Cash MD Unavailable +- 03 Gavi Cloud MD Unavailable +[phone] Jasmin Maradiaga PA-C Unavailable + Itzel Polk APRN COMPENSATION MANAGER Unavailable Unavailable Carl Farah MD Unavailable [phone] Jasmin Maradiaga PA-C Primary Care Provid er Gavi Cloud MD Unavailable +[phone] Jasmin Maradiaga PA-C Unavailable + [phone] Itzel Polk APRN COMPENSATION MANAGER Unavailable Unavailable Carl Farah MD Unavailable +[phone] Hector Goode MD Unavailable Encounter Details Date Type Department Care Team (Late st Contact Info) Description 05/13/2003 Office Visit-[facility] [place] [id number] [facility] [address] [place] [phone] Unknown, DoctorMD Social History Tobacco Use Types Packs/Day Years Used Date Smoking Tobacco: Never Alcohol Use Standard Drinks/Week Comments No 0 (1 standard drink = 0.6 oz pur e alcohol) on occ Comments No Sex and Gender Information Value Date Recorded Sex Assigned at Not on file 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 </I> __ Date: 05/13/2003 <B>GRISELDA LAI </B> Date of :1945 Age: 58 years old Referring Physician: MARCOS SANDOVAL Referring Clinic: [facility]. __ <B>CURRENT DIAGNOSES</B> 1. - Congestive Heart Failure, 428.0 2. 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 - Hypercholesterolemia, 272.0 __ <FONT COLOR=#[id number]><B>ALLERGIES</B> <FONT COLOR=#[id number]> 1. Sulfa __ <B>MEDICATIONS</B> 1. Potassium Chloride 20 mEq, 1/2 tab q.d. 2. Lasix 40 mg, 40 in am, 20 in pm 3. Lipitor 10 mg, 1 p.o. q.d. 4. Coreg 6.25 Mg, 1 am, 2 pm 5. Zoloft 50 mg, 1 p.o. q.d. 6. Coumadin 6 mg, Take as Directed 7. Cozaar 50 Mg, 1 p.o. q.d. 8. Spironolactone 25 mg, 1 p.o. q.d. 9. Gleevec 100mg, 4 p.o. q.d. 10. Advair 100/50, Take as Directed __ <B>CHIEF COMPLAINTS</B> Echo results __ <B>HISTORY OF PRESENT ILLNESS</B> Griselda Lai returns for follow up of her idiopathic cardiomyopathy and her heart failure. The patient had gained up to ten pounds of fluid and had increasing ankle edema. This was probably due to extra salt in her diet and Vioxx. She has now reduced the salt in her diet and is off Vioxx and she has returned back to her baseline weight. We repeated an echocardiogram to make sure her cardiomyopathy had not progressed. It is similar to before. Her left ventricle is dilated to approximately 56 to at most 60 mm. The ejection fraction is listed at 35% with global hypokinesis. The left atrium is mildly dilated. Her exam shows clear lung beebe and mild ankle. I am going to increase her Coreg from 6.25 mg b.i.d. to 6.25 mg in the morning and 12.5 mg in the evening. I again told the patient she can self-adjust her Lasix. We may contemplate adding digoxin duane future visit since she has now symptomatic heart failure but for now I will leave all the other medications alone. _ <B>PAST HISTORY</B> <B><I>Past Medical Illnesses: </B></I> hyperlipidemia, IBS, depression,sarcoid,sleep apnea,CML, TIA, vertebral art. narrowing (keep SBP upa bit) <B><I>Past Cardiac Illnesses: </I> </B> CHF,LBBB, Idiopathic Dilated Cardiomyapathy <B><I>Cardiology Procedures-Invasive:</B></I> , cardiac cath (left) <B><I>Cardiology Procedures-Noninvasive: </B></I> , , echocardiogram, echocardiogram January 2002, treadmill Thallium, Echo 06-10, BioZ 06-10 <B><I>Cardiac Cath Results: </B> </I> nl. coronaries,EF 50-55% <B><I>Left Ventricular Ejection Fraction: </B></I> 25 <B><I>PMHx Echo Results:</I> </B> LA size, Echo 06-10 EF 30-35% __<B><FONT FACE=System><FONT POINT=10> </B><FONT FACE=Times New Ras><FONT POINT=12> <B>FAMILY HISTORY</B> Father - quadruple bypass; Mother - CVA, hemorrhagic; __<B> </B> <B>SOCIAL HISTORY</B> <B><I>Alcohol Use</I>: </B> denies drinking; <B><I>Smoking</I>:</B> denies tobacco use; <B><I>Diet:</B> </I> regular diet without modifications and caffeine use-rare; <B><I>Lifestyle:</I> </B>children, drives car and ; <B><I>Exercise:</B> </I>no regular exercise; <B><I>Seat Belt Use</I>: </B> never; <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; <B><I>Sexual Activity</I>: </B>did not discuss sexual history; <B><I>Residence</I> : </B>lives alone; <B><I>Place of </I>: </B>[place]; <B><I>Hours Worked</I>:</B> 40 hours per week; __<B><FONT FACE=System><FONT POINT=10> </B><FONT FACE=Times New Ras><FONT POINT=12> <B>REVIEW OF SYSTEMS</B> <B><I>General: </B></I>no change in weight; <B><I>Integumentary:</B> </I>denies any change in hair or nails, rashes, or skin lesions.; <B><I>Eyes: </B></I>wears eye glasses/contact lenses; <B><I>Ears, Nose, Throat, Mouth:</B> </I>denies any hearing loss, epistaxis, hoarseness or difficulty speaking.; &l t;B><I>Respiratory: </B>< /I> dyspnea with exertion and sleep apnea; <B>& lt;I>Cardiovascular:</B> </I>edema, dizziness and -much better; <B><I>Abd ominal:</B> </I>denies change in bowel habits, dyspepsia, ulcer disease, hematochezia or melena.; <B><I>Genitourinary-Female:</B> </I>positive for nocturia and post menopausal on hormonal replacement; <B><I>Musculoskeletal: </B></I> moderate severe arthritis of the lower back and pain hip(s) leg(s); <B><I>Neurological: </B></I>tia in the past and no further neuro events- follows with neurology; <B><I>Psychiatric: </B></I>denies any history of depression, substance abuse or change in cognitive functions.; <B><I>Endocrine:</B> </I>hyperlipidemia, fatigue; <B> <I>Hematologic/Immunologic:< /B> </I>easy bruising __ <B><FONT FACE=System><FONT POINT=10> </B><FONT FACE=Times New Ras><FONT POINT=12> <B>PHYSICAL EXAMINATION</B> <I>Vital Signs</I> Blood Pressure: 110/60 Sitting, Right arm, large cuff Pulse-80.00/min. Weight-259.00 lbs. Height-65.00 Temperature-.00 <B><I>Constitutional </B> </I>cooperative, alert and oriented,well developed, well nourished, in no acute distress. <B><FONT FACE=System><FONT POINT=10> </B><FONT FACE=Times New Ras><FONT POINT=12> <B><I>Skin</B></I> warm and dry to touch, no apparent skin lesions, or masses noted. <B><FONT FACE=System><FONT POINT=10> </B><FONT FACE=Times New Ras><FONT POINT=12> <B><I>Head</I> </B> normocephalic, atraumatic <B><FONT FACE=System><FONT POINT=10> </B><FONT FACE=Times New Ras><FONT POINT=12> <B><I>Eyes</I> </B> Pupils equal and round, conjunctivae and lids unremarkable, sclera white, no xanthalasma <B><FONT FACE=System><FONT POINT=10> </B><FONT FACE=Times New Ras><FONT POINT=12> <B><I>ENT</I> </B> no pallor or cyanosis, dentition good <B><FONT FACE=System><FONT POINT=10> </B><FONT FACE=Times New Ras><FONT POINT=12> <B><I>Neck </B></I> carotid pulses are full and equal bilaterally, JVP normal, no carotid bruit, no thyromegaly <B><FONT FACE=System><FONT POINT=10> </B><FONT FACE=Times New Ras><FONT POINT=12> <B><I>Chest</I> </B> normal symmetry, no tenderness to palpation, normal respiratory excursion, no intercostal retraction, no use of accessory muscles, clear to auscultation and percussion. <B><FONT FACE=System><FONT POINT=10> </B><FONT FACE=Times New Ras><FONT POINT=12> <B><I>Cardiac</B></I> regular rhythm, S1 normal, S2 normal, No S3 or S4, Apical impulse not displaced, no murmurs, gallops or rubs detected. <B><FONT FACE=System><FONT POINT=10> </B><FONT FACE=Times New Ras><FONT POINT=12> <B><I>Abdomen</B> </I>abdomen soft, bowel sounds normoactive, no masses, no hepatosplenomegaly, non-tender, no bruits <B><FONT FACE=System><FONT POINT=10> </B><FONT FACE=Times New Ras><FONT POINT=12> <B><I>Peripheral Pulses</I> </B> pulses full and equal in all extremities, no bruits auscultated. <B><FONT FACE=System><FONT POINT=10> </B><FONT FACE=Times New Ras><FONT POINT=12> <B><FONT FACE=System><FONT POINT=10> </B><FONT FACE=Times New Ras><FONT POINT=12> <B><FONT FACE=System><FONT POINT=10> </B><FONT FACE=Times New Ras><FONT POINT=12> <B><FONT FACE=System><FONT POINT=10> </B><FONT FACE=Times New Ras><FONT POINT=12> <B><I>Extremities and Back</B> </I>trace bilateral calf edema, -better <B><FONT FACE=System><FONT POINT=10> </B><FONT FACE=Times New Ras><FONT POINT=12> <B><FONT FACE=System><FONT POINT=10> </B><FONT FACE=Times New Ras><FONT POINT=12> <B><FONT FACE=System><FONT POINT=10> <I><FONT FACE=Times New Ras><FONT POINT=12>Neurological</I> </B> no gross motor deficits noted, affect appropriate, oriented to time, person and place. __ <B><I>Medications Update Today</I> </B> Coreg 6.25 Mg, 1 am, 2 pm, #60 <B>IMPRESSIONS/PLAN</B> On the list above, she is listed on being on Cozaar. That was actually changed by her insurance company. We do not know which medicine it was substituted for. She will bring her pills in at the next visit. Total consult time: 30 minutes. <B><FONT FACE=System><FONT POINT=10> </B><FONT FACE=Times New Ras><FONT POINT=12>TODAYS ORDERS 1. Return Visit 3 months Carl Farah M.D. documented in this encounter Plan of Treatment Upcoming Encounters Date Type Department Care Team (Late st Contact Info) Description 06/14/2024 1:00 PM CDT Office Visit [facility] [address] 3rd [place] [address] Hector Goode MD [address] [place] [address] documented as of this encounter Visit Diagnoses Not on filedocumented in this encounter Care Teams Roller Mill Tender Relationship Specialty Start Date End Date Marcos Sandoval MD NO INFO AVAILABLE 10/03/22 PCP - General 03/27/99 08/11/19 Korin Lamb MD [address] [place] [address] PCP - General Family Practice 08/12/19 03/15/21 Jasmin Maradiaga PA-C [address] [address] PCP - General Family Medicine 03/16/21 Hector Goode MD [address] [place] [address] Neurology 05/01/17 John Cancino MD [address] [place] [address] Family Medicine - Sports Medicine 07/30/17 Marcos Sandoval MD NO INFO AVAILABLE 10/03/22 Assigned PCP 02/08/18 06/05/19 Korin Lamb MD [address] [place] [address] Assigned PCP 06/06/19 04/29/20 Carl Farah MD [address] [place] [phone] Assigned Heart and Vascular Provider 12/31/19 12/16/20 Marcos Sandoval MD NO INFO AVAILABLE 10/03/22 Assigned PCP 04/30/20 05/06/20 Korin Lamb MD [address] [place] [address] Assigned PCP 05/07/20 05/28/20 Gavi Cloud MD [address] [place] [address] Assigned PCP 05/29/20 01/06/21 Jasmin Maradiaga PA-C [address], [address] [place] [address] Assigned PCP 01/07/21 09/28/21 Itzel Polk APRN COMPENSATION MANAGER NO INFO AVAILABLE 12/27/2021 Assigned Heart and Vascular Provider 12/17/20 02/17/21 Carl Farah MD [address] [place] [phone] Assigned Heart and Vascular Provider 02/18/21 12/14/21 Gavi Cloud MD [address] [place] [address] Assigned PCP 09/29/21 10/19/21 Jasmin Maradiaga PA-C [address] [place] [address] Assigned PCP 10/20/21 Itzel Polk APRN COMPENSATION MANAGER NO INFO AVAILABLE 12/27/2021 Assigned Heart and Vascular Provider 12/15/21 05/17/22 Carl Farah MD [address] [facility] [address] [place] [phone] Assigned Heart and Vascular Provider 05/18/22 Hector Goode MD [address] [facility] [place] [address] Assigned Neuroscience Provider 07/01/23 documented as of this encounter
--- OUTSIDE RECORDS SUMMARY | 2024-02-01 08:24 | XMS_ITS | Encounter Summary ---
Author Organization [facility] Address [address] [place] [address] Care Team Providers Care Wedding Consultant Name Role Phone Roslyn Sandoval MD Primary Care Provider Unav ailable Hector Goode MD Unavailable John Cancino MD Unavailable [phone] Roslyn Sandoval MD Unavailable UnavailKorin Cash MD Unavailable +- 03 Korin Lamb MD Primary Care Provider [phone] Carl Farah MD Unavailable [phone] Roslyn Sandoval MD Unavailable UnavailKorin Cash MD Unavailable +- 03 Gavi Cloud MD Unavailable [phone] Jasmin Maradiaga PA-C Unavailable + Itzel Polk APRN PROJECT GEOLOGIST Unavailable Unavailable Carl Farah MD Unavailable +[phone] Jasmin Maradiaga PA-C Primary Care Provid er Gavi Cloud MD Unavailable +[phone] Jasmin Maradiaga PA-C Unavailable + [phone] Itzel Polk APRN PROJECT GEOLOGIST Unavailable Unavailable Carl Farah MD Unavailable [phone] Hector Goode MD Unavailable Encounter Details Date Type Department Care Team (Late st Contact Info) Description 07/31/2004 Abstract [facility] [address] [place] [address] [address] [place] [address] Roslyn Sandoval MD NO INFO AVAILABLE 10/03/22 ABSTRACTING RESULTS (Primary Dx) Social History Tobacco Use Types Packs/Day Years Used Date Smoking Tobacco: Never Alcohol Use Standard Drinks/Week Comments No 0 (1 standard drink = 0.6 oz pur e alcohol) on occ Comments No Sex and Gender Information Value Date Recorded Sex Assigned at Not on file 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 [address] 3rd [place] [address] Hector Goode MD [address] [place] [address] [id number] [place], [place] [address] documented as of this encounter Procedures Procedure Name Priority Date/Time Associated Diagnosis Comments ZZCL AFF PTT Routine 07/27/2004 ABSTRACTING RESULTS ZZCL AFF PROTHROMBIN TIME/INR Routine 07/27/2004 ABSTRACTING RESULTS documented in this encounter Results * PROTHROMBIN TIME/INR (07/27/2004) INR Point of Care 3.8 [facility] us Roslyn Sandoval MD LABORATORY Final Resul t [facility] [address] [place] [address], [facility] * PTT (07/27/2004) PTT 38.2 SECONDS [facility] Roslyn Sandoval MD LABORATORY [place] [address] documented in this encounter Visit Diagnoses Diagnosis ABSTRACTING RESULTS- Primary documented in this encounter Care Teams Wedding Consultant Relationship Specialty Start Date End Date Roslyn Sandoval MD NO INFO AVAILABLE 10/03/22 PCP - General 03/27/99 08/11/19 Korin Lamb MD [address] , [address] [address] PCP - General Family Practice 08/12/19 03/15/21 Jasmin Maradiaga PA-C [address] , [address] [address] PCP - General Family Medicine 03/16/21 Hector Goode MD [address] [address] Neurology 05/01/17 John Cancino MD [address] [address] Family Medicine - Sports Medicine 07/30/17 Roslyn Sandoval MD NO INFO AVAILABLE 10/03/22 Assigned PCP 02/08/18 06/05/19 Korin Lamb MD [address] , [address] [address] Assigned PCP 06/06/19 04/29/20 Carl Farah MD [address] [place] [address] Assigned Heart and Vascular Provider 12/31/19 12/16/20 Roslyn Sandoval MD NO INFO AVAILABLE 10/03/22 Assigned PCP 04/30/20 05/06/20 Korin Lamb MD [address] [place] [address] Assigned PCP 05/07/20 05/28/20 Gavi Cloud MD [address] [place] [address] Assigned PCP 05/29/20 01/06/21 Jasmin Maradiaga PA-C [address], [facility] [address] [place] [address] Assigned PCP 01/07/21 09/28/21 Itzel Polk APRN CNP NO INFO AVAILABLE 12/27/2021 Assigned Heart and Vascular Provider 12/17/20 02/17/21 Carl Farah MD [address] [place] [address] Assigned Heart and Vascular Provider 02/18/21 12/14/21 Gavi Cloud MD [address] [place] [address] Assigned PCP 09/29/21 10/19/21 Jasmin Maradiaga PA-C [address] [place] [address] Assigned PCP 10/20/21 Itzel Polk APRN PROJECT GEOLOGIST NO INFO AVAILABLE 12/27/2021 Assigned Heart and Vascular Provider 12/15/21 05/17/22 Carl Farah MD [address] [facility] [address] [place] [address] Assigned Heart and Vascular Provider 05/18/22 Hector Goode MD [address] [facility] [id number] [place] [address] Assigned Neuroscience Provider 07/01/23 documented as of this encounter
--- OUTSIDE RECORDS SUMMARY | 2024-02-01 08:24 | XMS_ITS | Encounter Summary ---
Author Organization [facility] Address [address] [place] [address] Care Team Providers Care Jewelry Sales Name Role Phone Roslyn Sandoval MD Primary Care Provider Unav ailable Hector Goode MD Unavailable John Cancino MD Unavailable [phone] Roslyn Sandoval MD Unavailable UnavailKorin Cash MD Unavailable +- 03 Korin Lamb MD Primary Care Provider [phone] Carl Farah MD Unavailable [phone] Roslyn Sandoval MD Unavailable UnavailKorin Cash MD Unavailable +- 03 Gavi Cloud MD Unavailable [phone] Jasmin Maradiaga PA-C Unavailable + Itzel Polk APRN OYSTER PICKER Unavailable Unavailable Carl Farah MD Unavailable [phone] Jasmin Maradiaga PA-C Primary Care Provid er Gavi Cloud MD Unavailable +[phone] Jasmin Maradiaga PA-C Unavailable + [phone] Itzel Polk APRN OYSTER PICKER Unavailable Unavailable Carl Farah MD Unavailable [phone] Hector Goode MD Unavailable Encounter Details Date Type Department Care Team (Late st Contact Info) Description 03/15/2005 Abstract [facility] [address] [place] [address] [address] [place] [address] Roslyn Sandoval MD NO INFO AVAILABLE 10/03/22 ABSTRACTING RESULTS (Primary Dx) Social History Tobacco Use Types Packs/Day Years Used Date Smoking Tobacco: Never Alcohol Use Standard Drinks/Week Comments No 0 (1 standard drink = 0.6 oz pur e alcohol) on occ Comments No Sex and Gender Information Value Date Recorded Sex Assigned at Not on file 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 Gender Identity Not on file Sexual Orientation Not on file documented as of this encounter Plan of Treatment Upcoming Encounters Date Type Department Care Team (Late st Contact Info) Description 06/14/2024 1:00 PM CDT Office Visit [facility] [address] 3rd [place] [address] Hector Goode MD [address] [place] [address] [id number] [place] [address] documented as of this encounter Procedures Procedure Name Priority Date/Time Associated Diagnosis Comments HCL POTASSIUM Routine 03/15/2005 ABSTRACTING RESULTS ZZCL AFF PROTHROMBIN TIME/INR Routine 03/15/2005 ABSTRACTING RESULTS documented in this encounter Results * POTASSIUM (03/15/2005) Potassium 4.0 3.5 - 5.5 mval/L [facility] Roslyn Sandoval MD LABORATORY Final Resul t [facility] [address] [place] [address] [address] [place] [address], [facility] * PROTHROMBIN TIME/INR (03/15/2005) INR Point of Care 2.8 [facility] Narrative [facility] - 03/15/2005 Pt=27.6 us Roslyn Sandoval MD LABORATORY Final Resul t [facility] [address] [place] [address] [place] [address], [facility] documented in this encounter Visit Diagnoses Diagnosis ABSTRACTING RESULTS- Primary documented in this encounter Care Teams Jewelry Sales Relationship Specialty Start Date End Date Roslyn Sandoval MD NO INFO AVAILABLE 10/03/22 PCP - General 03/27/99 08/11/19 Korin Lamb MD [address] , [address] [address] PCP - General Family Practice 08/12/19 03/15/21 Jasmin Maradiaga PA-C [address] , [address] [address] PCP - General Family Medicine 03/16/21 Hector Goode MD [address] [place] [id number] Neurology 05/01/17 John Cancino MD [address] [place] [address] Family Medicine - Sports Medicine 07/30/17 Roslyn Sandoval MD NO INFO AVAILABLE 10/03/22 Assigned PCP 02/08/18 06/05/19 Korin Lamb MD [address], [address] [address] Assigned PCP 06/06/19 04/29/20 Carl Farah MD [address] [place] [phone] Assigned Heart and Vascular Provider 12/31/19 12/16/20 Roslyn Sandoval MD NO INFO AVAILABLE 10/03/22 Assigned PCP 04/30/20 05/06/20 Korin Lamb MD [address] [place] [address] Assigned PCP 05/07/20 05/28/20 Gavi Cloud MD [address] [place] [address] Assigned PCP 05/29/20 01/06/21 Jasmin Maradiaga PA-C [address], [address] [place] [address] Assigned PCP 01/07/21 09/28/21 Itzel Polk APRN OYSTER PICKER NO INFO AVAILABLE 12/27/2021 Assigned Heart and Vascular Provider 12/17/20 02/17/21 Carl Farah MD [address] [place] [address] Assigned Heart and Vascular Provider 02/18/21 12/14/21 Gavi Cloud MD [address] [place] [address] Assigned PCP 09/29/21 10/19/21 Jasmin Maradiaga PA-C [address] [place] [address] Assigned PCP 10/20/21 Itzel Polk APRN OYSTER PICKER NO INFO AVAILABLE 12/27/2021 Assigned Heart and Vascular Provider 12/15/21 05/17/22 Carl Farah MD [address] [facility] [address] [place] [address] Assigned Heart and Vascular Provider 05/18/22 Hector Goode MD [address] [facility] [id number] [place], [place] [address] Assigned Neuroscience Provider 07/01/23 documented as of this encounter
--- OUTSIDE RECORDS SUMMARY | 2024-02-01 08:24 | XMS_ITS | Encounter Summary ---
Author Organization [facility] Address [address] [place] [address] Care Team Providers Care Terrazzo Layer Helper Name Role Phone Roslyn Sandoval MD Primary Care Provider Unav ailable Hector Goode MD Unavailable John Cancino MD Unavailable [phone] Roslyn Sandoval MD Unavailable UnavailKorin Cash MD Unavailable +- 03 Korin Lamb MD Primary Care Provider [phone] Carl Farah MD Unavailable [phone] Roslyn Sandoval MD Unavailable UnavailKorin Cash MD Unavailable +- 03 Gavi Cloud MD Unavailable +[phone] Jasmin Maradiaga PA-C Unavailable + Itzel Polk APRN MANAGEMENT CONSULTANT Unavailable Unavailable Carl Farah MD Unavailable +[phone] Jasmin Maradiaga PA-C Primary Care Provid er Gavi Cloud MD Unavailable +[phone] Jasmin Maradiaga PA-C Unavailable + [phone] Itzel Polk APRN MANAGEMENT CONSULTANT Unavailable Unavailable Carl Farah MD Unavailable +[phone] Hector Goode MD Unavailable Encounter Details Date Type Department Care Team (Late st Contact Info) Description 02/07/2005 Office Visit-[facility] [address] [place] [phone] Unknown, DoctorMD Social History Tobacco Use Types Packs/Day Years Used Date Smoking Tobacco: Never Alcohol Use Standard Drinks/Week Comments No 0 (1 standard drink = 0.6 oz pur e alcohol) on occ Comments No Sex and Gender Information Value Date Recorded Sex Assigned at Not on file 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 DATE: 02/07/2005 GRISELDA LAI DATE OF : 1945 AGE: [age] years old Referring Physician: ROSLYN SANDOVAL Referring Clinic: [facility]. CURRENT DIAGNOSES 1. - Congestive Heart Failure, 428.0 2. 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 - Hypercholesterolemia, 272.0 ALLERGIES Sulfa MEDICATIONS (including any changes made today) 1. Avapro 150 Mg, 1/2 tab q.d. 2. Potassium Chloride 10 Meq, 1 p.o. q.d. 3. Coreg 12.5 Mg, 1 p.o. b.i.d. 4. Lasix 40 Mg, 1/2 tab b.i.d. 5. Lipitor 20 Mg, 1/2 tab q.d. 6. Spironolactone 25 Mg, 1 p.o. q.d. 7. Zoloft 50 mg, 1 p.o. q.d. 8. Coumadin 6 mg, Take as Directed 9. Gleevec 100mg, 4 p.o. q.d. 10. Advair 100/50, Take as Directed 11. Triamcinolone Acetonide Topical 0.1%, Take as Directed CHIEF COMPLAINTS F/u chf HISTORY OF PRESENT ILLNESS Griselda Lai returns for follow-up of her idiopathic cardiomyopathy. Her ejection fractions have waxed and waned. She has mild ongoing heart failure symptoms. She was placed on spironolactone earlier this year and her potassium was discontinued at that point but no electrolyte check was performed. The patient was hospitalized at [facility] with a presumptive tachyarrhythmia with low potassium. Since her potassium was repleted she has had no further problems with arrhythmia. She has no dizzy spells despite her blood pressure being on the low end of normal. She had a question of vertebral basilar insufficiency and we normally let her blood pressure run a little higher. Her blood pressure is only 92 today but she has no symptoms. She does have mild ongoing ankle edema consistent with weight and probably mild heart failure. Her lungs are relatively clear. She does note a nocturnal cough with questionable wheezing. This may be low grade heart failure as she redistributes the fluid. _ PAST HISTORY Past Medical Illnesses: IBS, depression, [...] Results: LA size, Echo 4-03 EF 30-35% FAMILY HISTORY: Father - quadruple [...] history;Residence - lives alone; Place of - [place]; Hours Worked - 40 hours per week; Spouse's Occupation - ; [employer] SYSTEM[employer] GENERAL no change in weight INTEGUMENTARY denies any [...] bruising PHYSICAL EXAMINATION VITAL SIGNS: Blood Pressure: 92/50 Sitting, Right arm, large cuff Pulse- 68.00/min. Weight- 264.00 lbs. Height- .00 Temperature- .00 CONSTITUTIONAL cooperative, alert and oriented,well [...] place. MEDICATIONS UPDATED TODAY: Potassium Chloride 20 mEq, 1 p.o. q.d., 0 Avapro 150 Mg, 1/2 tab q.d., #45 Potassium Chloride 10 Meq, 1 p.o. q.d., #100 Coreg 12.5 Mg, 1 p.o. b.i.d., #180 Lasix 40 Mg, 1/2 tab b.i.d., #90 Lipitor 20 Mg, 1/2 tab q.d., #45 Spironolactone 25 Mg, 1 p.o. q.d., #90 IMPRESSIONS/PLAN I told her if she wishes she can take an additional Lasix for 2 or 3 nights in a row with an additional potassium and see if that makes any difference and she can call. She is going to be seeing Dr. Sandoval next week. I gave her a note to have her electrolytes and creatinine checked along with a magnesium level. We checked her lipids this summer and they were fine. I will get another echocardiogram next year. The patient is on disability for work and I fully agree. This is a patient with a significant cardiomyopathy, waxing and waning heart failure symptoms that are still ongoing. I do not think work would be appropriate. She does still have a minor skin irritation and rash. She sees a district plant engineer although it is still present and stable. I do not think it is from any of her medications and in fact her district plant engineer thought it was due to metals. Total consult time 25 minutes, greater than 50% counseling. TODAYS ORDERS 1. Return Visit 1 year 2. 2D, color flow, doppler 1 year Carl Farah M.D. documented in this encounter Plan of Treatment Upcoming Encounters Date Type Department Care Team (Late st Contact Info) Description 06/14/2024 1:00 PM CDT Office Visit [facility] [address] 3rd [place] [phone] Hector Goode MD [address] [place] [address] documented as of this encounter Visit Diagnoses Not on filedocumented in this encounter Care Teams Terrazzo Layer Helper Relationship Specialty Start Date End Date Roslyn Sandoval MD NO INFO AVAILABLE 10/03/22 PCP - General 03/27/99 08/11/19 Korin Lamb MD [address] [place] [address] PCP - General Family Practice 08/12/19 03/15/21 Jasmin Maradiaga PA-C [address] [place] [address] PCP - General Family Medicine 03/16/21 Hector Goode MD [address] [place] [address] Neurology 05/01/17 John Cancino MD [address] [place] [address] [id number] [address] Family Medicine - Sports Medicine 07/30/17 Roslyn Sandoval MD NO INFO AVAILABLE 10/03/22 Assigned PCP 02/08/18 06/05/19 Korin Lamb MD [address] [address] Assigned PCP 06/06/19 04/29/20 Carl Farah MD [address] [facility] [address] [place] [address] Assigned Heart and Vascular Provider 12/31/19 12/16/20 Roslyn Sandoval MD NO INFO AVAILABLE 10/03/22 Assigned PCP 04/30/20 05/06/20 Korin Lamb MD [address] [address] Assigned PCP 05/07/20 05/28/20 Gavi Cloud MD [address] [place] [address] [place] [address] Assigned PCP 05/29/20 01/06/21 Jasmin Maradiaga PA-C [address] [address] Assigned PCP 01/07/21 09/28/21 Itzel Polk APRN MANAGEMENT CONSULTANT NO INFO AVAILABLE 12/27/2021 Assigned Heart and Vascular Provider 12/17/20 02/17/21 Carl Farah MD [address] [place] [phone] Assigned Heart and Vascular Provider 02/18/21 12/14/21 Gavi Cloud MD [address] [place] [address] Assigned PCP 09/29/21 10/19/21 Jasmin Maradiaga PA-C [address] [place] [address] Assigned PCP 10/20/21 Itzel Polk APRN MANAGEMENT CONSULTANT NO INFO AVAILABLE 12/27/2021 Assigned Heart and Vascular Provider 12/15/21 05/17/22 Carl Farah MD [address] [place] [phone] Assigned Heart and Vascular Provider 05/18/22 Hector Goode MD [address] [place] [address] [id number] [place] [address] Assigned Neuroscience Provider 07/01/23 documented as of this encounter
--- OUTSIDE RECORDS SUMMARY | 2024-02-01 08:24 | XMS_ITS | Encounter Summary ---
Author Organization [facility] Address [address] [place] [address] Care Team Providers Care Manager Pacu Name Role Phone Roslyn Sandoval MD Primary Care Provider Unav ailable Hector Goode MD Unavailable John Cancino MD Unavailable [phone] Roslyn Sandoval MD Unavailable UnavailKorin Cash MD Unavailable +- 03 Korin Lamb MD Primary Care Provider [phone] Carl Farah MD Unavailable [phone] Roslyn Sandoval MD Unavailable UnavailKorin Cash MD Unavailable +- 03 Gavi Cloud MD Unavailable +[phone] Jasmin Maradiaga PA-C Unavailable + Itzel Polk APRN TOURIST ADVISER Unavailable Unavailable Carl Farah MD Unavailable [phone] Jasmin Maradiaga PA-C Primary Care Provid er Gavi Cloud MD Unavailable +[phone] Jasmin Maradiaga PA-C Unavailable + [phone] Itzel Polk APRN TOURIST ADVISER Unavailable Unavailable Carl Farah MD Unavailable [phone] Hector Goode MD Unavailable Encounter Details Date Type Department Care Team (Late st Contact Info) Description 11/30/2004 [facility] [address] [facility] [address] [place] [phone] Dionne Quach MD [address] [facility] [address] [place] [address] TACHYCARDIA NOS (Primary Dx); CHEST PAIN NOS; CONGESTIVE HEART FAILURE; HYPOPOTASSEMIA Social History Tobacco Use Types Packs/Day Years Used Date Smoking Tobacco: Never Passive Smoke Exposure: Never Smokeless Tobacco: Never Alcohol Use Standard Drinks/Week Comments No 0 (1 standard drink = 0.6 oz pur e alcohol) Comments No Sex and Gender Information Value Date Recorded Sex Assigned at Not on file 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 Gender Identity Not on file Sexual Orientation Not on file documented as of this encounter Progress Notes * Dionne Quach MD - 11/30/2004 11:10 AM CDT 11/30- admit h and P for palpitations, tachycardia, chest pain, idiopathic cardiomyopathy, elevated troponin, level 3 admission documented in this encounter Plan of Treatment Upcoming Encounters Date Type Department Care Team (Late st Contact Info) Description 06/14/2024 1:00 PM CDT Office Visit [facility] [address] 3rd [place] [phone] Hector Goode MD [address] [place] [address] [id number] [place], [place] 518[address] documented as of this encounter Visit Diagnoses Diagnosis Tachycardia, unspecified- Primary Chest pain, unspecified CONGESTIVE HEART FAILURE Congestive heart failure, unspecified Hypopotassemia documented in this encounter Care Teams Manager Pacu Relationship Specialty Start Date End Date Roslyn Sandoval MD NO INFO AVAILABLE 10/03/22 PCP - General 03/27/99 08/11/19 Korin Lamb MD [address] [address] PCP - General Family Practice 08/12/19 03/15/21 Jasmin Maradiaga PA-C [address] [address] PCP - General Family Medicine 03/16/21 Hector Goode MD [address] [place] [address] Neurology 05/01/17 John Cancino MD [address] [place] [address] Family Medicine - Sports Medicine 07/30/17 Roslyn Sandoval MD NO INFO AVAILABLE 10/03/22 Assigned PCP 02/08/18 06/05/19 Korin Lamb MD [address] [address] Assigned PCP 06/06/19 04/29/20 Carl Farah MD [address] [facility] [address] [place] [phone] Assigned Heart and Vascular Provider 12/31/19 12/16/20 Roslyn Sandoval MD NO INFO AVAILABLE 10/03/22 Assigned PCP 04/30/20 05/06/20 Korin Lamb MD [address] [place] [address] Assigned PCP 05/07/20 05/28/20 Gavi Cloud MD [address] [place] [address] Assigned PCP 05/29/20 01/06/21 Jasmin Maradiaga PA-C [address] [place] [address] Assigned PCP 01/07/21 09/28/21 Itzel Polk APRN TOURIST ADVISER NO INFO AVAILABLE 12/27/2021 Assigned Heart and Vascular Provider 12/17/20 02/17/21 Carl Farah MD [address] [facility] [address] [place] [phone] Assigned Heart and Vascular Provider 02/18/21 12/14/21 Gavi Cloud MD [address] [place] [address] [place] [address] Assigned PCP 09/29/21 10/19/21 Jasmin Maradiaga PA-C [address] [place] [address] Assigned PCP 10/20/21 Itzel Polk APRN TOURIST ADVISER NO INFO AVAILABLE 12/27/2021 Assigned Heart and Vascular Provider 12/15/21 05/17/22 Carl Farah MD [address] [place] [phone] Assigned Heart and Vascular Provider 05/18/22 Hector Goode MD [address] [facility] [id number] [place], [place] [address] Assigned Neuroscience Provider 07/01/23 documented as of this encounter
--- OUTSIDE RECORDS SUMMARY | 2024-02-01 08:24 | XMS_ITS | Encounter Summary ---
Author Organization [facility] Address [address] [place] [address] Care Team Providers Care Wildlife Rehabilitator Name Role Phone Roslyn Sandoval MD Primary Care Provider Unav ailable Hector Goode MD Unavailable John Cancino MD Unavailable [phone] Roslyn Sandoval MD Unavailable UnavailKorin Cash MD Unavailable +- 03 Korin Lamb MD Primary Care Provider [phone] Carl Farah MD Unavailable [phone] Roslyn Sandoval MD Unavailable UnavailKorin Cash MD Unavailable +- 03 Gavi Cloud MD Unavailable +[phone] Jasmin Maradiaga PA-C Unavailable + Itzel Polk APRN POLICY ADVISER Unavailable Unavailable Carl Farah MD Unavailable +[phone] Jasmin Maradiaga PA-C Primary Care Provid er aGvi Cloud MD Unavailable +[phone] Jasmin Maradiaga PA-C Unavailable + [phone] Itzel Polk APRN POLICY ADVISER Unavailable Unavailable Carl Farah MD Unavailable +[phone] Hector Goode MD Unavailable Encounter Details Date Type Department Care Team (Late st Contact Info) Description 01/18/2005 [facility] [address] [place] [address] [address] [place] [address] Roslyn Sandoval MD NO INFO AVAILABLE 10/03/22 ABSTRACTING RESULTS (Primary Dx) Social History Tobacco Use Types Packs/Day Years Used Date Smoking Tobacco: Never Alcohol Use Standard Drinks/Week Comments No 0 (1 standard drink = 0.6 oz pur e alcohol) on occ Comments No Sex and Gender Information Value Date Recorded Sex Assigned at Not on file 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 Gender Identity Not on file Sexual Orientation Not on file documented as of this encounter Plan of Treatment Upcoming Encounters Date Type Department Care Team (Late st Contact Info) Description 06/14/2024 1:00 PM CDT Office Visit [facility] [address] 3rd [place] [address] Hector Goode MD [address] [place] [address] [id number] [place] [address] documented as of this encounter Procedures Procedure Name Priority Date/Time Associated Diagnosis Comments ZZCL AFF PROTHROMBIN TIME/INR Routine 01/18/2005 ABSTRACTING RESULTS ZZCL AFF WBC Routine 01/18/2005 ABSTRACTING RESULTS ZZCL AFF HEMOGLOBIN Routine 01/18/2005 ABSTRACTING RESULTS documented in this encounter Results * PROTHROMBIN TIME/INR (01/18/2005) INR Point of Care 2.5 [facility] Narrative [facility] - 01/18/2005 Pt=24.8 us Roslyn Sandoval MD LABORATORY Final Resul t [facility] [address] [place] [address] * HEMOGLOBIN (01/18/2005) Hemoglobin 12.5 12 - 16 GM/DL [facility] Roslyn Sandoval MD LABORATORY Final Resul t Performing Organization Address City/[facility]/ZIP Co de Phone Number [facility] INTER[facility] [address] [facility] [address] [place] [address] * WBC (01/18/2005) WBC 4.8 4.3 - 11 thous/CU.MM [facility] Roslyn Sandoval MD LABORATORY Final Resul t Performing Organization Address City/[facility]/ZIP Co de Phone Number [facility] [address] [facility] [address] [address] [place] [address] documented in this encounter Visit Diagnoses Diagnosis ABSTRACTING RESULTS- Primary documented in this encounter Care Teams Wildlife Rehabilitator Relationship Specialty Start Date End Date Roslyn Sandoval MD NO INFO AVAILABLE 10/03/22 PCP - General 03/27/99 08/11/19 Korin Lamb MD [address], [address] [address] PCP - General Family Practice 08/12/19 03/15/21 Jasmin Maradiaga PA-C [address], [address] [address] PCP - General Family Medicine 03/16/21 Hector Goode MD [address] [place] [address] [id number] Neurology 05/01/17 John Cancino MD [address] [place] [id number] Family Medicine - Sports Medicine 07/30/17 Roslyn Sandoval MD NO INFO AVAILABLE 10/03/22 Assigned PCP 02/08/18 06/05/19 Korin Lamb MD [address] [place] [address] Assigned PCP 06/06/19 04/29/20 Carl Farah MD [address] [place] [address] Assigned Heart and Vascular Provider 12/31/19 12/16/20 Roslyn Sandoval MD NO INFO AVAILABLE 10/03/22 Assigned PCP 04/30/20 05/06/20 Korin Lamb MD [address] [place] [address] Assigned PCP 05/07/20 05/28/20 Gavi Cloud MD [address] [place] [address] Assigned PCP 05/29/20 01/06/21 Jasmin Maradiaga PA-C [address] [place] [address] Assigned PCP 01/07/21 09/28/21 Itzel Polk APRN CNP NO INFO AVAILABLE 12/27/2021 Assigned Heart and Vascular Provider 12/17/20 02/17/21 Carl Farah MD [address] [place] [phone] Assigned Heart and Vascular Provider 02/18/21 12/14/21 Gavi Cloud MD [address] [place] [address] Assigned PCP 09/29/21 10/19/21 Jasmin Maradiaga PA-C [address] [place] [address] Assigned PCP 10/20/21 Itzel Polk APRN POLICY ADVISER NO INFO AVAILABLE 12/27/2021 Assigned Heart and Vascular Provider 12/15/21 05/17/22 Carl Farah MD [address] [place] [phone] Assigned Heart and Vascular Provider 05/18/22 Hector Goode MD [address] [facility] [id number] [place] [address] Assigned Neuroscience Provider 07/01/23 documented as of this encounter
[2024-02-01 08:25] LABS: Potassium* 3.8 mmol/L (3.6-5.1)
--- OUTSIDE RECORDS SUMMARY | 2024-02-01 08:25 | XMS_ITS | Encounter Summary ---
Author Organization [facility] Address [address] [place] [address] Care Team Providers Care City Tax Auditor Name Role Phone Roslyn Sandoval MD Primary Care Provider Unav ailable Hector Goode MD Unavailable John Cancino MD Unavailable [phone] Roslyn Sandoval MD Unavailable UnavailKorin Cash MD Unavailable +- 03 Korin Lamb MD Primary Care Provider [phone] Carl Farah MD Unavailable [phone] Roslyn Sandoval MD Unavailable UnavailKorin Cash MD Unavailable +- 03 Gavi Cloud MD Unavailable [phone] Jasmin Maradiaga PA-C Unavailable + Itzel Polk APRN PROFESSIONAL VOLLEYBALL PLAYER Unavailable Unavailable Carl Farah MD Unavailable [phone] Jasmin Maradiaga PA-C Primary Care Provid er Gavi Cloud MD Unavailable +[phone] Jasmin Maradiaga PA-C Unavailable + [phone] Itzel Polk APRN PROFESSIONAL VOLLEYBALL PLAYER Unavailable Unavailable Carl Farah MD Unavailable [phone] Hector Goode MD Unavailable Encounter Details Date Type Department Care Team (Late st Contact Info) Description 11/10/2002 Office Visit-[facility] [address] [place] [phone] Unknown, DoctorMD Social History Tobacco Use Types Packs/Day Years Used Date Smoking Tobacco: Never Alcohol Use Standard Drinks/Week Comments No 0 (1 standard drink = 0.6 oz pur e alcohol) on occ Comments No Sex and Gender Information Value Date Recorded Sex Assigned at Not on file Legal 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 Total consult time: 35 minutes. DATE: 11/10/2002 GRISELDA LAI DATE OF : 1945 AGE: [age] years old Referring Physician: ROSLYN ASNDOVAL CURRENT DIAGNOSES 1. - Congestive Heart Failure, 428.0 2. 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 - Hypercholesterolemia, 272.0 ALLERGIES Sulfa MEDICATIONS 1. Lipitor 10 mg, 1 p.o. q.d. 2. K-tab 10 Meq, Takes 20 mEq's daily 3. Cozaar 50 Mg, 1 p.o. q.d. 4. Lasix 40 Mg, 1-1/2 p.o. q.d. 5. Lipitor 10 Mg, 1 p.o. q.d. 6. Spironolactone 25 mg, 1 p.o. q.d. 7. Zoloft 25 mg, Take as Directed 8. Aspirin Low Strength 81 mg, Take as Directed 9. Gleevec 100mg, 4 p.o. q.d. 10. Coreg 6.25 mg, 1 p.o. b.i.d. 11. Advair 100/50, Take as Directed CHIEF COMPLAINTS Followup of - Congestive Heart Failure HISTORY OF PRESENT ILLNESS Griselda Lai returns for follow up of her cardiomyopathy, but this is an unscheduled visit. Apparently she has had two episodes which sound like TIAs, although it is somewhat atypical. One was a month ago, and one was six months ago. She also went to [facility] for evaluation, in addition to [facility]. She describes a peculiar syndrome of flushing in her chest, although I am not sure that she is actually red, a heartburn feeling, and then garbled speech. The episodes will last for an hour or so. She was diagnosed with a TIA. She eventually went on to [facility]. 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 She had been on Coumadin. [facility] told them to stop it. I had wondered if it is possible one of her heart medicines could be causing this by causing low blood pressure and vertebral basilar insufficiency. The patient tells me that at the time of the spell her blood pressure actually was as high as 150 systolic, which is higher than usual. The fact that she lays down and this does not affect the symptoms, and the garbled speech will continue for an hour. The patient does note this first episode occurred after she was started on Gleevec. That is the only new medication. She saw Dr. Bustillo for this. Apparently an episode occurred in his office. He did not think it was related to the Gleevec. From a cardiac standpoint, her idiopathic cardiomyopathy is stable. She has no significant coronary disease. Her ejection fraction done earlier this year shows an ejection fraction of 35%. No obvious clots are seen. She has no significant difference on her exam today. She has some peripheral edema. I talked to herabout the fact that since each of the episodes occurred in the exact same symptom territory, which is garbled speech, it would be unusual for a blood clot to go to the same bed twice. I still perhapswonder about vertebral basilar insufficiency, and I am going to lower her Coreg so that her blood pressure comes up slightly. I talked to her about a transesophageal echo, but instead I would like her to see another neurologist, and I will ask her to discuss with Dr. Sandoval. I will send this letter to Dr. Halima Nina. If the neurologist thinks a transesophageal echo would be useful, we can go ahead and perform one. I cannot think of any cardiac symptom that would cause this. She specifically did not notice any irregular pulse. She has no history of atrial fibrillation. She did not have a headache to suggest a migraine, and I guess it is possible this could be a migraine equivalent, but again the neurologist might be more helpful with that. With regard to the vascular abnormality, I have not seen the MRI, and I cannot comment further on that. IMPRESSION/PLAN I will see the patient back in six months, at which time I will repeat a regular echocardiogram to make sure her cardiomyopathy has not progressed further. I talked to her briefly about aspirin versus Plavix versus Coumadin. Again, at this point I have no direct knowledge that this represents a cardioembolic problem. TODAYS ORDERS 1. 2D, color flow, doppler 6 months 2. Return Visit 6 months Carl Farah M.D. cc:Halima Nina M.D. documented in this encounter Plan of Treatment Upcoming Encounters Date Type Department Care Team (Late st Contact Info) Description 06/14/2024 1:00 PM CDT Office Visit [facility] [address] 3rd [place] [address] Hector Goode MD [address] [place] [address] [id number] [place] [address] documented as of this encounter Visit Diagnoses Not on filedocumented in this encounter Care Teams City Tax Auditor Relationship Specialty Start Date End Date Roslyn Sandoval MD NO INFO AVAILABLE 10/03/22 PCP - General 03/27/99 08/11/19 Korin Lamb MD [address] , [place] [address] [place] [address] PCP - General Family Practice 08/12/19 03/15/21 Jasmin Maradiaga PA-C [address], [place] [address] [place] [address] PCP - General Family Medicine 03/16/21 Hector Goode MD [address] [address] Neurology 05/01/17 John Cancino MD [address] [address] Family Medicine - Sports Medicine 07/30/17 Roslyn Sandoval MD NO INFO AVAILABLE 10/03/22 Assigned PCP 02/08/18 06/05/19 Korin Lamb MD [address], [address] [address] Assigned PCP 06/06/19 04/29/20 Carl Faarh MD [address] [facility] [address] [place] [phone] Assigned Heart and Vascular Provider 12/31/19 12/16/20 Roslyn Sandoval MD NO INFO AVAILABLE 10/03/22 Assigned PCP 04/30/20 05/06/20 Korin Lamb MD [address] , [address] [address] Assigned PCP 05/07/20 05/28/20 Gavi Cloud MD [address] [place] [address] Assigned PCP 05/29/20 01/06/21 Jasmin Maradiaga PA-C [address] [address] Assigned PCP 01/07/21 09/28/21 Itzel Polk APRN PROFESSIONAL VOLLEYBALL PLAYER NO INFO AVAILABLE 12/27/2021 Assigned Heart and Vascular Provider 12/17/20 02/17/21 Carl Farah MD [address] [facility] [address] [place] [address] Assigned Heart and Vascular Provider 02/18/21 12/14/21 Gavi Cloud MD [address] [place] [address] Assigned PCP 09/29/21 10/19/21 Jasmin Maradiaga PA-C [address] [address] Assigned PCP 10/20/21 Itzel Polk APRN PROFESSIONAL VOLLEYBALL PLAYER NO INFO AVAILABLE 12/27/2021 Assigned Heart and Vascular Provider 12/15/21 05/17/22 Carl Farah MD [address] [place] [phone] Assigned Heart and Vascular Provider 05/18/22 Hector Goode MD [address] [facility] [id number] [place], [place] [address] Assigned Neuroscience Provider 07/01/23 documented as of this encounter
--- OUTSIDE RECORDS SUMMARY | 2024-02-01 08:25 | XMS_ITS | Encounter Summary ---
Author Organization [facility] Address [address] [place] [address] Care Team Providers Care Global Security Architect Name Role Phone Marcos Sandoval MD Primary Care Provider Unav ailable Hector Goode MD Unavailable John Cancino MD Unavailable [phone] Marcos Sandoval MD Unavailable UnavailKorin Cash MD Unavailable +- 03 Korin Lamb MD Primary Care Provider [phone] Carl Farah MD Unavailable [phone] Marcos Sandoval MD Unavailable UnavailKorin Cash MD Unavailable +- 03 Gavi Cloud MD Unavailable [phone] Jasmin Maradiaga PA-C Unavailable + Itzel Polk APRN RAW STOCK DYEING MACHINE TENDER Unavailable Unavailable Carl Farah MD Unavailable [phone] Jasmin Maradiaga PA-C Primary Care Provid er Gavi Cloud MD Unavailable [phone] Jasmin Maradiaga PA-C Unavailable + [phone] Itzel Polk APRN RAW STOCK DYEING MACHINE TENDER Unavailable Unavailable Carl Farah MD Unavailable [phone] Hector Goode MD Unavailable Encounter Details Date Type Department Care Team (Late st Contact Info) Description 07/05/2002 Office Visit-[facility] [address] [place] [phone] Unknown, DoctorMD Social History Tobacco Use Types Packs/Day Years Used Date Smoking Tobacco: Never Alcohol Use Standard Drinks/Week Comments No 0 (1 standard drink = 0.6 oz pur e alcohol) on occ Comments No Sex and Gender Information Value Date Recorded Sex Assigned at Not on file 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 - Congestive Heart Failure, 428.0 2. 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 - Hypercholesterolemia, 272.0 ALLERGIES Sulfa MEDICATIONS 1. Coreg 25 mg, 1 p.o. b.i.d. 2. Coumadin 5 mg, Take as Directed 3. Escitalopram oxalate 10 mg, 1 p.o. q.d. 4. Cozaar 50 Mg, 1 p.o. q.d. 5. Lipitor 10 mg, 1 p.o. q.d. 6. Lasix 40 Mg, 1-1/2 p.o. q.d. 7. K-tab 10 Meq, Takes 20 mEq's daily 8. Spironol 25 Mg, 1 p.o. q.d. 9. Lipitor 10 Mg, 1 p.o. q.d. CHIEF COMPLAINTS F/u echo, bioz HISTORY OF PRESENT ILLNESS Griselda Lai returns for follow up of her idiopathic dilated cardiomyopathy. Since I saw her lastshe was diagnosed with CML, Stanton chromosome positive. She was started on Gleevec. She also describes transient loss of speech and was diagnosed with a TIA. I do not have those hospital records, but this is from the patient's report. She tells me that her vertebral arteries had some narrowing, and her neurologist has preferred that her blood pressure run a little bit higher than usual. He recommended she decrease her Coreg from 50 b.i.d. down to 25 b.i.d. PAST HISTORY Past Medical Illnesses: hyperlipidemia, IBS, depression,sarcoid,sleep apnea,CML, TIA, vertebral art. narrowing (keep SBP upa bit) Past Cardiac Illnesses: CHF,LBBB, Idiopathic Dilated Cardiomyapathy Cardiology Procedures-Invasive: , cardiac cath (left) Cardiology Procedures-Noninvasive: , , echocardiogram, echocardiogram January 2002, treadmill Thallium, Echo 06-10, BioZ 06-10 Cardiac Cath Results: nl. coronaries,EF 50-55% Left Ventricular Ejection Fraction: 25% PMHx Echo Results: LA size, Echo 06-10 [...] - lives alone; Place of - [place]; Hours Worked - 40 hours per week; REVIEW OF SYSTEMS GENERAL fatigue, chills INTEGUMENTARY denies any change in hair or nails, rashes, or skin lesions. EYES wears eye glasses/contact lenses EARS, NOSE, THROAT, MOUTH denies any hearing loss, epistaxis, hoarseness or difficulty speaking. RESPIRATORY dry cough, dyspnea with exertion, sleep apnea, PND CARDIOVASCULAR chest pain ABDOMINAL denies change in bowel habits, dyspepsia, ulcer disease, hematochezia or melena. GENITOURINARY-FEMALE positive for nocturia, post menopausal on hormonal replacement MUSCULOSKELETAL moderate severe arthritis of the lower back NEUROLOGICAL denies any history of recurrent headaches, strokes, TIA, or seizure disorder. PSYCHIATRIC denies any history of depression, substance abuse or change in cognitive functions. ENDOCRINE hyperlipidemia, fatigue HEMATOLOGICAL/IMMUNOLOGIC easy bruising PHYSICAL EXAMINATION VITAL SIGNS: Blood Pressure: 100/58 Sitting, Left arm, large cuff Pulse- 70.00/min. Weight- 252.00 lbs. Height- 66.00 Temperature- .00 [...] no bruits auscultated. EXTREMITIES & BACK no cyanosis or clubbing, mild ankle edema NEUROLOGICAL no gross motor deficits noted, affect appropriate, oriented to time, person and place. MEDICATIONS UPDATED TODAY: Coreg 25 mg, 1 p.o. b.i.d., DIRECTED Coumadin 5 mg, Take as Directed, DIRECTED Escitalopram oxalate 10 mg, 1 p.o. q.d., DIRECTED MEDICATION STOPPED TODAY: Aspirin 81 mg and Coreg 25 Mg IMPRESSIONS/PLAN I have reviewed this with Ms. Lai. Gleevec is metabolized through the CYP2 system, as is Coumadin, Lipitor, and Coreg. It is very possible that starting Gleevec has in effect changed the dose of these medications, and perhaps that is why her blood pressure is running a bit lower, although we have always wanted her to have somewhat low blood pressure because of her cardiomyopathy. She is now describing intermittent episodes where she has some slight facial numbness on the right side, and never anywhere else. I told her if this is at all related to her heart it is not because of a clot, since it is the same distribution every time, but it could be from transient hypotension with vertebralartery disease. Therefore, I told her to check her blood pressure during these spells. If her bloodpressure is indeed running low, she can drop the Coreg down to 12.5 b.i.d. Her Coumadin has been adjusted around her Gleevec, and she is on the lowest dose of Lipitor, so I do not think we need to worry too much about drug interaction there. Dr. Sandoval is doing her lipid profile. From a cardiac standpoint she still has some fatigue and mild ankle edema. Gleevec can also cause some ankle swelling, but Ms. Lai has had this prior to Gleevec. She has no significant chest pain, no undue shortness of breath, and no syncope. The patient did have an echocardiogram at [facility] in April. I believe that echo was spurious. Her ejection fraction on today's echo is between 30-35%, which is a slight improvement from last year. Her Bio-Z test shows good cardiac output, good SVR, but reduced acceleration index, and reduced velocity index, consistent with her known cardiomyopathy. At this time I have not made any medi cation changes except to tell her if her blood pressure is running low, especially during these numbness events, she can drop the Coreg down to 12.5 b.i.d. We will continue all of her other medications. She does not need a biventricular pacer since she is not in class III or IV heart failure. We will see the patient back in six months TODAYS ORDERS 1. Return Visit 6 months Carl Farah M.D. cc:Edvin Neville M.D. Toño Bustillo M.D. documented in this encounter Plan of Treatment Upcoming Encounters Date Type Department Care Team ([facility] st Contact Info) Description 06/14/2024 1:00 PM CDT Office Visit [facility] [address]rd [place] [phone] Hector Goode MD [address] [place], [place] [address] [place] [address] documented as of this encounter Visit Diagnoses Not on filedocumented in this encounter Care Teams Global Security Architect Relationship Specialty Start Date End Date Marcos Sandoval MD NO INFO AVAILABLE 10/03/22 PCP - General 03/27/99 08/11/19 Korin Lamb MD [address] [address] PCP - General Family Practice 08/12/19 03/15/21 Jasmin Maradiaga PA-C [address] [address] PCP - General Family Medicine 03/16/21 Hector Goode MD [address] [place] [address] [place] [address] Neurology 05/01/17 John Cancino MD [address] [id number] [place] [address] Family Medicine - Sports Medicine 07/30/17 Marcos Sandoval MD NO INFO AVAILABLE 10/03/22 Assigned PCP 02/08/18 06/05/19 Korin Lamb MD [address] , [address] [address] Assigned PCP 06/06/19 04/29/20 Carl Farah MD [address] [facility] [address] [place] [phone] Assigned Heart and Vascular Provider 12/31/19 12/16/20 Marcos Sandoval MD NO INFO AVAILABLE 10/03/22 Assigned PCP 04/30/20 05/06/20 Korin Lamb MD [address] , [address] [address] Assigned PCP 05/07/20 05/28/20 Gavi Cloud MD [address] [place] [address] Assigned PCP 05/29/20 01/06/21 Jasmin Maradiaga PA-C [address] , [facility] [address] [place] [address] Assigned PCP 01/07/21 09/28/21 Itzel Polk APRN RAW STOCK DYEING MACHINE TENDER NO INFO AVAILABLE 12/27/2021 Assigned Heart and Vascular Provider 12/17/20 02/17/21 Carl Farah MD [address] [place] [phone] Assigned Heart and Vascular Provider 02/18/21 12/14/21 Gavi Cloud MD [address] [place] [address] Assigned PCP 09/29/21 10/19/21 Jasmin Maradiaga PA-C [address], [address] [place] [address] Assigned PCP 10/20/21 Itzel Polk APRN RAW STOCK DYEING MACHINE TENDER NO INFO AVAILABLE 12/27/2021 Assigned Heart and Vascular Provider 12/15/21 05/17/22 Carl Farah MD [address] [place] [phone] Assigned Heart and Vascular Provider 05/18/22 Hector Goode MD [address] [facility] [id number] [place], [place] [address] Assigned Neuroscience Provider 07/01/23 documented as of this encounter
--- OUTSIDE RECORDS SUMMARY | 2024-02-01 08:25 | XMS_ITS | Encounter Summary ---
Author Organization [facility] Address [address] [place] [address] Care Team Providers Care Diplomatic Interpreter/Translator Name Role Phone Marcos Sandoval MD Primary Care Provider Unav ailable Hector Goode MD Unavailable John Cancino MD Unavailable [phone] Marcos Sandoval MD Unavailable UnavailKorin Cash MD Unavailable +- 03 Korin Lamb MD Primary Care Provider [phone] Carl Farah MD Unavailable [phone] Marcos Sandoval MD Unavailable UnavailKorin Cash MD Unavailable +- 03 Gavi Cloud MD Unavailable [phone] Jasmin Maradiaga PA-C Unavailable + Itzel Polk APRN LOG CHIPPER OPERATOR Unavailable Unavailable Carl Farah MD Unavailable [phone] Jasmin Maradiaga PA-C Primary Care Provid er Gavi Cloud MD Unavailable +[phone] Jasmin Maradiaga PA-C Unavailable + [phone] Itzel Polk APRN LOG CHIPPER OPERATOR Unavailable Unavailable Carl Farah MD Unavailable [phone] Hector Goode MD Unavailable Encounter Details Date Type Department Care Team (Late st Contact Info) Description 04/22/2003 Office Visit-[facility] [address] [place] [phone] Unknown, DoctorMD Social History Tobacco Use Types Packs/Day Years Used Date Smoking Tobacco: Never Alcohol Use Standard Drinks/Week Comments No 0 (1 standard drink = 0.6 oz pur e alcohol) on occ Comments No Sex and Gender Information Value Date Recorded Sex Assigned at Not on file 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 CURRENT DIAGNOSES 1. - Congestive Heart Failure, 428.0 2. 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 - Hypercholesterolemia, 272.0 ALLERGIES Sulfa MEDICATIONS 1. Potassium Chloride 20 mEq, 1/2 tab q.d. 2. Lasix 40 mg, 40 in am, 20 in pm 3. Lipitor 10 mg, 1 p.o. q.d. 4. Zoloft 50 mg, 1 p.o. q.d. 5. Coumadin 6 mg, Take as Directed 6. Cozaar 50 Mg, 1 p.o. q.d. 7. Spironolactone 25 mg, 1 p.o. q.d. 8. Gleevec 100mg, 4 p.o. q.d. 9. Coreg 6.25 mg, 1 p.o. b.i.d. 10. Advair 100/50, Take as Directed CHIEF COMPLAINTS F/u HISTORY OF PRESENT ILLNESS Ms. Lai is a very delightful 58-year-old female who presents today for follow-up regarding cardiomyopathy. As you may recall, she has a history of an idiopathic dilated cardiomyopathy. 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 She has been maintained on Gleevec. She also has a history of a TIA with transient loss of speech. She also had some narrowing in her vertebral arteries and, therefore, her neurologist prefers that her blood pressure run a little bit higher and her Coreghas been maintained at only a dose of 6.25 mg b.i.d. and is not to be increased from that level. I last saw her one week ago as she was having worsening heart failure symptoms. She had noted a 15 pound weight gain overnight. She was not short of breath, surprisingly, and was not orthopneic. Uponmeasuring her laboratory tests, her BNP was not elevated at 41 and her BUN and creatinine were normal at 19 and 1.2 respectively. We increased her Lasix for one week's time and I am seeing her back today for follow-up. She has had a dramatic change in her edema. She has lost again 15 pounds. She feels much better. She was having severe leg pain due to the edema and that has resolved. She complains of a residual cough related to her bronchitis, but otherwise feels quite well. She denies the presence of chest pain or pressure. No syncope, presyncope, PND or orthopnea. Pedal edema has improved, but is still present. PAST HISTORY Past Medical Illnesses: hyperlipidemia, IBS, [...] week; REVIEW OF SYSTEMS GENERAL weight loss INTEGUMENTARY denies any change in hair or nails, rashes, or skin lesions. EYES wears eye glasses/contact lenses EARS, NOSE, THROAT, MOUTH epistaxis RESPIRATORY dyspnea with exertion, sleep apnea CARDIOVASCULAR edema, dizziness ABDOMINAL denies change in bowel habits, dyspepsia, ulcer disease, hematochezia or melena. GENITOURINARY-FEMALE positive for nocturia, post menopausal on hormonal replacement MUSCULOSKELETAL moderate severe arthritis of the lower back, pain hip(s) leg(s) NEUROLOGICAL tia in the past PSYCHIATRIC denies any history of depression, substance abuse or change in cognitive functions. ENDOCRINE hyperlipidemia, fatigue HEMATOLOGICAL/IMMUNOLOGIC easy bruising PHYSICAL EXAMINATION VITAL SIGNS: Blood Pressure: 122/60 Sitting, Left arm, large cuff Pulse- 76.00/min. Weight- 253.00 lbs. Height- 66.00 Temperature- .00 CONSTITUTIONAL cooperative, [...] extremities, no bruits auscultated. EXTREMITIES & BACK trace bilateral calf edema NEUROLOGICAL no gross motor deficits noted, affect appropriate, oriented to time, person and place. MEDICATIONS UPDATED TODAY: Potassium Chloride 20 mEq, 1/2 tab q.d., 0 Lasix 40 mg, 40 in am, 20 in pm, 0 MEDICATION STOPPED TODAY: Klor-Con 20 mEq and Lasix 40 mg IMPRESSIONS/PLAN Congestive heart failure due to idiopathic cardiomyopathy. The patient is currently doing quite well after aggressive diuresis. I will change her Lasix back to her normal dose. At our last visit, we did have a long discussion about sodium and I asked her to be quite diligent about taking in 2000 mgor less per day. In addition, she was taking Vioxx for some hand pain and I asked that she discontinue that medication and use Tylenol as Vioxx is known to cause edema. The combination of these changes has made a dramatic improvement. Her BNP was not elevated throughout all of this. She is due to see Dr. Farah in May with an echo at that time. She will follow-up as planned and certainly knowsto contact our office sooner if she experiences problems or concerns, and I would be happy to see her. Gisel Georges. documented in this encounter Plan of Treatment Upcoming Encounters Date Type Department Care Team ([facility] st Contact Info) Description 06/14/2024 1:00 PM CDT Office Visit [facility] [address] 3rd [place] [phone] Hector Goode MD [address] [place] [address] [phone] documented as of this encounter Visit Diagnoses Not on filedocumented in this encounter Care Teams Diplomatic Interpreter/Translator Relationship Specialty Start Date End Date Marcos Sandoval MD NO INFO AVAILABLE 10/03/22 PCP - General 03/27/99 08/11/19 Korin Lamb MD [address] , [address] [id number] PCP - General Family Practice 08/12/19 03/15/21 Jasmin Maradiaga PA-C [address] , [address] [address] PCP - General Family Medicine 03/16/21 Hector Goode MD [address] [place] [address] [id number] Neurology 05/01/17 John Cancino MD [address] [place] [address] [id number] Family Medicine - Sports Medicine 07/30/17 Marcos Sandoval MD NO INFO AVAILABLE 10/03/22 Assigned PCP 02/08/18 06/05/19 Korin Lamb MD [address] [place] [address] Assigned PCP 06/06/19 04/29/20 Carl Farah MD [address] [place] [phone] Assigned Heart and Vascular Provider 12/31/19 12/16/20 Marcos Sandoval MD NO INFO AVAILABLE 10/03/22 Assigned PCP 04/30/20 05/06/20 Korin Lamb MD [address] [place] [address] Assigned PCP 05/07/20 05/28/20 Gavi Cloud MD [address] [place] [address] Assigned PCP 05/29/20 01/06/21 Jasmin Maradiaga PA-C [address], [address] [place] [address] Assigned PCP 01/07/21 09/28/21 Itzel Polk APRN CNP NO INFO AVAILABLE 12/27/2021 Assigned Heart and Vascular Provider 12/17/20 02/17/21 Carl Farah MD [address] [place] [address] Assigned Heart and Vascular Provider 02/18/21 12/14/21 Gavi Colud MD [address] [place] [address] Assigned PCP 09/29/21 10/19/21 Jasmin Maradiaga PA-C [address], [address] [place] [address] Assigned PCP 10/20/21 Itzel Polk APRN CNP NO INFO AVAILABLE 12/27/2021 Assigned Heart and Vascular Provider 12/15/21 05/17/22 Carl Farah MD [address] [place] [phone] Assigned Heart and Vascular Provider 05/18/22 Hector Goode MD [address] [id number] [place] [address] Assigned Neuroscience Provider 07/01/23 documented as of this encounter
--- OUTSIDE RECORDS SUMMARY | 2024-02-01 08:25 | XMS_ITS | Encounter Summary ---
Author Organization [facility] Address [address] [place] [address] Care Team Providers Care Phytopathologist Name Role Phone Roslyn Sandoval MD Primary Care Provider Unav ailable Hector Goode MD Unavailable John Cancino MD Unavailable [phone] Roslyn Sandoval MD Unavailable UnavailKorin Cash MD Unavailable +- 03 Korin Lamb MD Primary Care Provider [phone] Carl Farah MD Unavailable [phone] Roslyn Sandoval MD Unavailable UnavailKorin Cash MD Unavailable +- 03 Gavi Cloud MD Unavailable [phone] Jasmin Maradiaga PA-C Unavailable + Itzel Polk APRN HEAD OF MOBILE Unavailable Unavailable Carl Farah MD Unavailable +[phone] Jasmin Maradiaga PA-C Primary Care Provid er Gavi Cloud MD Unavailable +[phone] Jasmin Maradiaga PA-C Unavailable + [phone] Itzel Polk APRN HEAD OF MOBILE Unavailable Unavailable Carl Farah MD Unavailable [phone] Hector Goode MD Unavailable Encounter Details Date Type Department Care Team (Late st Contact Info) Description 07/16/2001 Office Visit-[facility] [address] [place] [phone] Unknown, DoctorMD Social History Tobacco Use Types Packs/Day Years Used Date Smoking Tobacco: Never Alcohol Use Standard Drinks/Week Comments No 0 (1 standard drink = 0.6 oz pur e alcohol) on occ Comments No Sex and Gender Information Value Date Recorded Sex Assigned at Not on file 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 - Hypercholesterolemia, 272.0 3. Chart Request, 000 4. - Congestive Heart Failure, 428.0 ALLERGIES Sulfa MEDICATIONS 1. Aspirin 325 Mg, 1 p.o. qAM 2. Prempro 0.625 mg-2.5 mg, 1 p.o. q.d. 3. Lasix 40 Mg, 1-1/2 p.o. q.d. 4. Celexa 20 mg, 1 p.o. q.d. 5. Piroxicam 20 mg, 1 p.o. q.d. 6. Coreg 25 Mg, 2 p.o. b.i.d. 7. K-tab 10 Meq, Takes 20 mEq's daily 8. Cozaar 50 Mg, 1 p.o. q.d. 9. Spironol 25 Mg, 1 p.o. q.d. 10. Lipitor 10 Mg, 1 p.o. q.d. CHIEF COMPLAINTS Annual exam HISTORY OF PRESENT ILLNESS I had the pleasure of following up on our mutual patient Griselda Lai. As you know, she has a idiopathic dilated cardiomyopathy. Clinically, she is doing well. She does continue her peripheral edema, and as you know, she is already on Lasix and spironolactone. She does note shortness of breath, she now describes PND with some orthopnea and wheezing at night. I suspect that this is shift of fluid from her legs where the edema is at the end of the day into her central cavity at night, probably with an element of diastolic dysfunction from cardiomyopathy. I told her that the typical treatment for this would be to increase her Lasix. She does not want toincrease the dose now. She had a long discussions with me if we could stop any of the medications. I told her for now the medicines that she is on are typical standard medicines for cardiomyopathy prevention. If we were to stop any of the medicine,it would probably be spironolactone that I would sto p first, and continue the other medications since they are more efficacious. I told her that if shewishes, she can try to cut the potassium pill into half since she is on spironolactone, and she will need to get her potassium check at your office in two weeks which she will arrange. If her potassium level is still fine, we could try stopping the potassium completely, and see if she can maintain normal potassium levels while on Lasix and spironolactone combination. PAST HISTORY Past Medical Illnesses: sleep apnea, sarcoid leg, irritable bowel syndrome, depression, hyperlipidemia Past Cardiac Illnesses: Idiopathic Dilated Cardiomyapathy, CHF,LBBB Cardiology Procedures-Invasive: , cardiac cath (left) Cardiology Procedures-Noninvasive: , , echocardiogram, treadmill Thallium Cardiac Cath Results: nl. 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 INTEGUMENTARY denies any change in hair or nails, rashes, or skin lesions. EYES wears eye glasses/contact lenses EARS, NOSE, THROAT, MOUTH denies any hearing loss, epistaxis, hoarseness or difficulty speaking. RESPIRATORY dry cough, dyspnea with exertion, sleep apnea, PND ABDOMINAL freq urgency bm after eatting GENITOURINARY-FEMALE positive for nocturia, post menopausal on hormonal replacement MUSCULOSKELETAL moderate severe arthritis of the lower back NEUROLOGICAL denies any history of recurrent headaches, strokes, TIA, or seizure disorder. PSYCHIATRIC denies any history of depression, substance abuse or change in cognitive functions. ENDOCRINE hyperlipidemia, fatigue HEMATOLOGICAL/IMMUNOLOGIC easy bruising PHYSICAL EXAMINATION VITAL SIGNS: Blood Pressure: 116/64 Sitting, Right arm, large cuff Pulse- 56.00/min. Weight- .00 lbs. Height- .00 Temperature- .00 CONSTITUTIONAL cooperative, [...] time, person and place. MEDICATIONS UPDATED TODAY: Lasix 40 Mg, 1-1/2 p.o. q.d., #180 Celexa 20 mg, 1 p.o. q.d., 0 Piroxicam 20 mg, 1 p.o. q.d., #30 Coreg 25 Mg, 2 p.o. b.i.d., #360 K-tab 10 Meq, Takes 20 mEq's daily, #90 Cozaar 50 Mg, 1 p.o. q.d., #90 Spironol 25 Mg, 1 p.o. q.d., #90 Lipitor 10 Mg, 1 p.o. q.d., #90 IMPRESSIONS/PLAN I will also get a repeat echocardiogram to make sure that her LV function has not dropped given that her shortness of breath symptoms continued. Also, I have taken the liberty of renewing her piroxicam prescription for one month only. I know that she talked to you about this and you referred her to Dr. De Santiago but she tells me she is going outof town shortly and believes she needs the medicine. I did give her strong warning that I am a bit uncomfortable with piroxicam because it has a higher incidence of bleeding ulcer and it can contribute to fluid retention and that's why she got a limited prescription only. I asked her again to discuss with you and Dr. De Santiago your thoughts on this medication. TODAYS ORDERS 1. Return Visit 6 months 2. 2D, color flow, doppler 6 months Referring Physician: ROSLYN SANDOVAL M.D. documented in this encounter Plan of Treatment Upcoming Encounters Date Type Department Care Team (Late st Contact Info) Description 06/14/2024 1:00 PM CDT Office Visit [facility] [address] 3rd [place] [phone] Hector Goode MD [address] [place] [address] documented as of this encounter Visit Diagnoses Not on filedocumented in this encounter Care Teams Phytopathologist Relationship Specialty Start Date End Date Roslyn Sandoval MD NO INFO AVAILABLE 10/03/22 PCP - General 03/27/99 08/11/19 Korin Lamb MD [address] [facility], [address] [address] PCP - General Family Practice 08/12/19 03/15/21 Jasmin Maradiaga PA-C [address] , [address] [address] PCP - General Family Medicine 03/16/21 Hector Goode MD [address] [place] [address] Neurology 05/01/17 John Cancino MD [address] [id number] [place] [address] Family Medicine - Sports Medicine 07/30/17 Roslyn Sandoval MD NO INFO AVAILABLE 10/03/22 Assigned PCP 02/08/18 06/05/19 Korin Lamb MD [address] , [address] [address] Assigned PCP 06/06/19 04/29/20 Carl Farah MD [address] [facility] [address] [place] [phone] Assigned Heart and Vascular Provider 12/31/19 12/16/20 Roslyn Sandoval MD NO INFO AVAILABLE 10/03/22 Assigned PCP 04/30/20 05/06/20 Korin Lamb MD [address] [address] Assigned PCP 05/07/20 05/28/20 Gavi Clodu MD [address] [place] [address] Assigned PCP 05/29/20 01/06/21 Jasmin Maradiaga PA-C [address] [address] Assigned PCP 01/07/21 09/28/21 Itzel Polk APRN HEAD OF MOBILE NO INFO AVAILABLE 12/27/2021 Assigned Heart and Vascular Provider 12/17/20 02/17/21 Carl Farah MD [address] [place] [address] Assigned Heart and Vascular Provider 02/18/21 12/14/21 Gavi Cloud MD [address] [place] [address] Assigned PCP 09/29/21 10/19/21 Jasmin Maradiaga PA-C [address] [place] [address] Assigned PCP 10/20/21 Itzel Polk APRN CNP NO INFO AVAILABLE 12/27/2021 Assigned Heart and Vascular Provider 12/15/21 05/17/22 Carl Farah MD [address] [place] [phone] Assigned Heart and Vascular Provider 05/18/22 Hector Goode MD [address] [place] [address] [id number] [place] [address] Assigned Neuroscience Provider 07/01/23 documented as of this encounter
--- OUTSIDE RECORDS SUMMARY | 2024-02-01 08:25 | XMS_ITS | Encounter Summary ---
Author Organization [facility] Address [address] [place] [address] Care Team Providers Care Manager Agricultural Name Role Phone Roslyn Sandoval MD Primary Care Provider Unav ailable Hector Goode MD Unavailable John Cancino MD Unavailable [phone] Roslyn Sandoval MD Unavailable UnavailKorin Cash MD Unavailable +- 03 Korin Lamb MD Primary Care Provider [phone] Carl Farah MD Unavailable [phone] Roslyn Sandoval MD Unavailable UnavailKorin Cash MD Unavailable +- 03 Gavi Cloud MD Unavailable [phone] Jasmin Maradiaga PA-C Unavailable + Itzel Polk APRN PROOFREADER Unavailable Unavailable Carl Farah MD Unavailable [phone] Jasmin Maradiaga PA-C Primary Care Provid er Gavi Cloud MD Unavailable +[phone] Jasmin Maradiaga PA-C Unavailable + [phone] Itzel Polk APRN PROOFREADER Unavailable Unavailable Carl Farah MD Unavailable +[phone] Hector Goode MD Unavailable Encounter Details Date Type Department Care Team (Late st Contact Info) Description 07/16/2001 Office Visit-[facility] [address] [place] [phone] Unknown, DoctorMD Social History Tobacco Use Types Packs/Day Years Used Date Smoking Tobacco: Never Alcohol Use Standard Drinks/Week Comments No 0 (1 standard drink = 0.6 oz pur e alcohol) on occ Comments No Sex and Gender Information Value Date Recorded Sex Assigned at Not on file 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 documented in this encounter Plan of Treatment Upcoming Encounters Date Type Department Care Team ([facility] st Contact Info) Description 06/14/2024 1:00 PM CDT Office Visit [facility] [address]rd [place] [phone] Hector Goode MD [address] [place], [place] [id number] [address] documented as of this encounter Visit Diagnoses Not on filedocumented in this encounter Care Teams Manager Agricultural Relationship Specialty Start Date End Date Roslyn Sandoval MD NO INFO AVAILABLE 10/03/22 PCP - General 03/27/99 08/11/19 Korin Lamb MD [address] [address] PCP - General Family Practice 08/12/19 03/15/21 Jasmin Maradiaga PA-C [address] [address] PCP - General Family Medicine 03/16/21 Hector Goode MD [address] [place], [place] [id number] [address] Neurology 05/01/17 John Cancino MD [address] [id number] [place] [address] Family Medicine - Sports Medicine 07/30/17 Roslyn Sandoval MD NO INFO AVAILABLE 10/03/22 Assigned PCP 02/08/18 06/05/19 Korin Lamb MD [address] [address] Assigned PCP 06/06/19 04/29/20 Carl Farah MD [address] [facility] [address] [place] [phone] Assigned Heart and Vascular Provider 12/31/19 12/16/20 Roslyn Sandoval MD NO INFO AVAILABLE 10/03/22 Assigned PCP 04/30/20 05/06/20 Korin Lamb MD [address] , [address] [address] Assigned PCP 05/07/20 05/28/20 Gavi Cloud MD [address] [place] [address] Assigned PCP 05/29/20 01/06/21 Jasmin Maradiaga PA-C [address] , [address] [address] Assigned PCP 01/07/21 09/28/21 Itzel Polk APRN PROOFREADER NO INFO AVAILABLE 12/27/2021 Assigned Heart and Vascular Provider 12/17/20 02/17/21 Carl Farah MD [address] [place] [phone] Assigned Heart and Vascular Provider 02/18/21 12/14/21 Gavi Cloud MD [address] [place] [address] Assigned PCP 09/29/21 10/19/21 Jasmin Maradiaga PA-C [address] [place] [address] Assigned PCP 10/20/21 Itzel Polk APRN PROOFREADER NO INFO AVAILABLE 12/27/2021 Assigned Heart and Vascular Provider 12/15/21 05/17/22 Carl Farah MD [address] [place] [phone] Assigned Heart and Vascular Provider 05/18/22 Hector Goode MD [address] [facility] [id number] [place], [place] [address] Assigned Neuroscience Provider 07/01/23 documented as of this encounter
--- OUTSIDE RECORDS SUMMARY | 2024-02-01 08:25 | XMS_ITS | Encounter Summary ---
Author Organization [facility] Address [address] [place] [address] Care Team Providers Care Cuff Cutter Name Role Phone Roslyn Sandoval MD Primary Care Provider Unav ailable Hector Goode MD Unavailable John Cancino MD Unavailable [phone] Roslyn Sanodval MD Unavailable UnavailKorin Cash MD Unavailable +- 03 Korin Lamb MD Primary Care Provider [phone] Carl Farah MD Unavailable +[phone] Rsolyn Sandoval MD Unavailable UnavailKorin Cash MD Unavailable +- 03 Gavi Cloud MD Unavailable +[phone] Jasmin Maradiaga PA-C Unavailable + Itzel Polk APRN CARGO AND CONTAINER INSPECTOR Unavailable Unavailable Carl Farah MD Unavailable +[phone] Jasmin Maradiaga PA-C Primary Care Provid er Gavi Cloud MD Unavailable +[phone] Jasmin Maradiaga PA-C Unavailable + [phone] Itzel Polk APRN CARGO AND CONTAINER INSPECTOR Unavailable Unavailable Carl Farah MD Unavailable +[phone] Hector Goode MD Unavailable Encounter Details Date Type Department Care Team (Late Contact Info) Description 05/04/2000 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 Gender Identity Not on file Sexual Orientation Not on file documented as of this encounter Progress Notes * 05/04/2000 11:59 PM CSTAddended by: JAREN AMEZQUITA on: 10/22/2000,8:34 AM Modules accepted: Order Summary admitted 1 H&P 05/03/00 Possible femur fracture Level 3 Discharge 05/04/00 documented in this encounter Plan of Treatment Upcoming Encounters Date Type Department Care Team (Late Contact Info) Description 06/14/2024 1:00 PM CDT Office Visit [facility] [address] 3rd [place] [phone] Hector Goode MD [address] [place] [address] [id number] [place] [address] documented as of this encounter Visit Diagnoses Diagnosis Pain in joint, pelvic region and thigh- Primary documented in this encounter Care Teams Cuff Cutter Relationship Specialty Start Date End Date Roslyn Sandoval MD NO INFO AVAILABLE 10/03/22 PCP - General 03/27/99 08/11/19 Korin Lamb MD [address] [place] [address] PCP - General Family Practice 08/12/19 03/15/21 Jasmin Maradiaga PA-C [address], [address] [address] PCP - General Family Medicine 03/16/21 Hector Goode MD [address] [address] Neurology 05/01/17 John Cancino MD [address] [address] Family Medicine - Sports Medicine 07/30/17 Roslyn Sandoval MD NO INFO AVAILABLE 10/03/22 Assigned PCP 02/08/18 06/05/19 Korin Lamb MD [address], [address] [address] Assigned PCP 06/06/19 04/29/20 Carl Farah MD [address] [facility] [address] [place] [phone] Assigned Heart and Vascular Provider 12/31/19 12/16/20 Roslyn Sandoval MD NO INFO AVAILABLE 10/03/22 Assigned PCP 04/30/20 05/06/20 Korin Lamb MD [address], [address] [place] [address] Assigned PCP 05/07/20 05/28/20 Gavi Cloud MD [address] [place] [address] Assigned PCP 05/29/20 01/06/21 Jasmin Maradiaga PA-C [address], [address] [place] [address] Assigned PCP 01/07/21 09/28/21 Itzel Polk APRN CARGO AND CONTAINER INSPECTOR NO INFO AVAILABLE 12/27/2021 Assigned Heart and Vascular Provider 12/17/20 02/17/21 Carl Farah MD [address] [place] [phone] Assigned Heart and Vascular Provider 02/18/21 12/14/21 Gavi Cloud MD [address] [place] [address] Assigned PCP 09/29/21 10/19/21 Jasmin Maradiaga PA-C [address], [address] [place] [address] Assigned PCP 10/20/21 Itzel Polk APRN CARGO AND CONTAINER INSPECTOR NO INFO AVAILABLE 12/27/2021 Assigned Heart and Vascular Provider 12/15/21 05/17/22 Carl Farha MD [address] [place] [phone] Assigned Heart and Vascular Provider 05/18/22 Hector Goode MD [address] [facility] [id number] [place] [address] Assigned Neuroscience Provider 07/01/23 documented as of this encounter
--- OUTSIDE RECORDS SUMMARY | 2024-02-01 08:25 | XMS_ITS | Encounter Summary ---
Author Organization [facility] Address [address] [place] [address] Care Team Providers Care Cat Scan Technologist Name Role Phone Marcos Sandoval MD Primary Care Provider Unav ailable Hector Goode MD Unavailable John Cancino MD Unavailable [phone] Marcos Sandoval MD Unavailable UnavailKorin Cash MD Unavailable +- 03 Korin Lamb MD Primary Care Provider [phone] Carl Farah MD Unavailable +[phone] Marcos Sandoval MD Unavailable UnavailKorin Cash MD Unavailable +- 03 Gavi Cloud MD Unavailable +[phone] Jasmin Maradiaga PA-C Unavailable + Itzel Polk APRN HAND BRAILLE TRANSCRIBER Unavailable Unavailable Carl Farah MD Unavailable +[phone] Jasmin Maradiaga PA-C Primary Care Provid er Gavi Cloud MD Unavailable +[phone] Jasmin Maradiaga PA-C Unavailable + [phone] Itzel Polk APRN HAND BRAILLE TRANSCRIBER Unavailable Unavailable Carl Farah MD Unavailable +[phone] Hector Goode MD Unavailable Encounter Details Date Type Department Care Team (Late st Contact Info) Description 04/15/2003 Office Visit-[facility] [address] [place] [phone] Unknown, DoctorMD Social History Tobacco Use Types Packs/Day Years Used Date Smoking Tobacco: Never Alcohol Use Standard Drinks/Week Comments No 0 (1 standard drink = 0.6 oz pur e alcohol) on occ Comments No Sex and Gender Information Value Date Recorded Sex Assigned at Not on file 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 CURRENT DIAGNOSES 1. - Congestive Heart Failure, 428.0 2. 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 - Hypercholesterolemia, 272.0 ALLERGIES Sulfa MEDICATIONS 1. Lipitor 10 mg, 1 p.o. q.d. 2. Klor-Con 20 mEq, 1 p.o. q.d. 3. Zoloft 50 mg, 1 p.o. q.d. 4. Coumadin 6 mg, Take as Directed 5. Lasix 40 mg, 60 mg BID 6. Cozaar 50 Mg, 1 p.o. q.d. 7. Spironolactone 25 mg, 1 p.o. q.d. 8. Gleevec 100mg, 4 p.o. q.d. 9. Coreg 6.25 mg, 1 p.o. b.i.d. 10. Advair 100/50, Take as Directed CHIEF COMPLAINTS Followup of Edema legs HISTORY OF PRESENT ILLNESS Ms. Lai is a very delightful 58-year-old female who presents today for follow up regarding cardiomyopathy. She reports that her weight increased about 11 pounds overnight. She informs me that most recently she has been eating [employer] for two meals per day the past two days. She additionally has been eating frozen Weight Watcher's dinners for one meal per day. She denies the presence of anyshortness of breath at rest. She has not had any change in her level of shortness of breath with exertion. She indicates that she had a cold with some type of bronchitis over the past couple of weeksand is taking her last dose of Avalox antibiotics today. She additionally has had some hip pain, for which she took two doses of Vioxx, given by her primary care physician. She is normally maintainedon Lasix, spironolactone, Coreg and Cozaar. Her Coreg was not able to be increased over 6.25 mg as her neurologist did not feel this was a good idea given her small artery leading to her brain. She also has leukemia, for which she is being treated with Gleevec. Other than severe pedal edema and mild abdominal edema, the patient is relatively asymptomatic. Per our scale, her weight has gone up about 15 pounds from June of last year. As stated previously, she reports an 11-pound weight gain overnight. PAST HISTORY Past Medical Illnesses: hyperlipidemia, IBS, [...] Residence - lives alone; Place of - [place]; Hours Worked - 40 hours per week; REVIEW OF SYSTEMS GENERAL weight gain INTEGUMENTARY [...] bruising PHYSICAL EXAMINATION VITAL SIGNS: Blood Pressure: 120/70 Sitting, Left arm, large cuff Pulse- 82.00/min. Weight- 267.00 lbs. Height- 66.00 Temperature- .00 CONSTITUTIONAL cooperative, [...] time, person and place. MEDICATIONS UPDATED TODAY: Zoloft 50 mg, 1 p.o. q.d., DIRECTED Coumadin 6 mg, Take as Directed, DIRECTED Lasix 40 mg, 60 mg BID, 0 MEDICATION STOPPED TODAY: Lasix 40 Mg IMPRESSIONS/PLAN Cardiomyopathy, currently in decompensation with increased weight. This is most certainly due to her lack of compliance with her diet. This patient is not very well educated on a low-sodium diet. I did give her informational handouts and had a discussion with her about foods that are low in sodium and foods that are high in sodium to avoid. She seemed to demonstrate understanding and took an interest in her own care. Per Carl Farah M.D., I will increase her Lasix to 60 mg b.i.d. until her weight normalizes. She is to call me on Friday with an update of her weight. Should her weight remain elevated, we will keep her on this higher dose of Lasix. We otherwise may go back down to 40 mgin the morning and 20 mg in the afternoon. I additionally petty a basic metabolic profile and brain natruretic peptide and will repeat these tests when I see her back in one week. TODAYS ORDERS 1. Basic Metabolic Panel Today 2. BNP Today 3. Return Visit 1 week 4. Basic Metabolic Panel 1 week 5. BNP 1 week Yumiko Georges documented in this encounter Plan of Treatment Upcoming Encounters Date Type Department Care Team (Late st Contact Info) Description 06/14/2024 1:00 PM CDT Office Visit [facility] [address]rd [place] [phone] Hector Goode MD [address] [place] [address] documented as of this encounter Visit Diagnoses Not on filedocumented in this encounter Care Teams Cat Scan Technologist Relationship Specialty Start Date End Date Marcos Sandoval MD NO INFO AVAILABLE 10/03/22 PCP - General 03/27/99 08/11/19 Korin Lamb MD [address] [place] [address] PCP - General Family Practice 08/12/19 03/15/21 Jasmin Maradiaga PA-C [address] [address] PCP - General Family Medicine 03/16/21 Hector Goode MD [address] [place] [address] Neurology 05/01/17 John Cancino MD [address] [place] [address] SE [id number] [place] [address] Family Medicine - Sports Medicine 07/30/17 Marcos Sandoval MD NO INFO AVAILABLE 10/03/22 Assigned PCP 02/08/18 06/05/19 Korin Lamb MD [address] [address] Assigned PCP 06/06/19 04/29/20 Carl Farah MD [address] [facility] [address] [place] [address] Assigned Heart and Vascular Provider 12/31/19 12/16/20 Marcos Sandoval MD NO INFO AVAILABLE 10/03/22 Assigned PCP 04/30/20 05/06/20 Korin Lamb MD [address] [address] Assigned PCP 05/07/20 05/28/20 Gavi Cloud MD [address] [place] [address] Assigned PCP 05/29/20 01/06/21 Jasmin Maradiaga PA-C [address] [address] Assigned PCP 01/07/21 09/28/21 Itzel Polk APRN HAND BRAILLE TRANSCRIBER NO INFO AVAILABLE 12/27/2021 Assigned Heart and Vascular Provider 12/17/20 02/17/21 Carl Farah MD [address] [place] [phone] Assigned Heart and Vascular Provider 02/18/21 12/14/21 Gavi Cloud MD [address] [place] [address] Assigned PCP 09/29/21 10/19/21 Jasmin Maradiaga PA-C [address], [address] [place] [address] Assigned PCP 10/20/21 Itzel Polk APRN HAND BRAILLE TRANSCRIBER NO INFO AVAILABLE 12/27/2021 Assigned Heart and Vascular Provider 12/15/21 05/17/22 Carl Farah MD [address] [place] [phone] Assigned Heart and Vascular Provider 05/18/22 Hector Goode MD [address] [place] [address] [id number] [place] [address] Assigned Neuroscience Provider 07/01/23 documented as of this encounter
--- OUTSIDE RECORDS SUMMARY | 2024-02-01 08:25 | XMS_ITS | Encounter Summary ---
Author Organization [facility] Address [address] [place] [address] Care Team Providers Care Systems Programmer Analyst Name Role Phone Roslyn Sandoval MD Primary Care Provider Unav ailable Hector Goode MD Unavailable John Cancino MD Unavailable [phone] Roslyn Sandoval MD Unavailable UnavailKorin Cash MD Unavailable +- 03 Korin Lamb MD Primary Care Provider [phone] Carl Farah MD Unavailable +[phone] Roslyn Sandoval MD Unavailable UnavailKorin Cash MD Unavailable +- 03 Gavi Cloud MD Unavailable +[phone] Jasmin Maradiaga PA-C Unavailable + Itzel Polk APRN CIRCUIT DESIGNER Unavailable Unavailable Carl Farah MD Unavailable +[phone] Jasmin Maradiaga PA-C Primary Care Provid er Gavi Cloud MD Unavailable +[phone] Jasmin Maradiaga PA-C Unavailable + [phone] Itzel Polk APRN CIRCUIT DESIGNER Unavailable Unavailable Carl Farah MD Unavailable +[phone] Hector Goode MD Unavailable Encounter Details Date Type Department Care Team (Late st Contact Info) Description 09/25/[address] 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 [address] 3rd [place] [address] Hector Goode MD [address] [place] [address] [id number] [place] [address] documented as of this encounter Procedures Procedure Name Priority Date/Time Associated Diagnosis Comments C SUBSEQUENT HOSPITAL CARE, LEVEL II Routine 09/29/2002 Aftercare Assisted Anticoag Use Transient Cerebral Ischemia Nos ZZC INITIAL HOSPITAL CARE,LEVL II Routine 09/25/2002 Transient Cerebral Ischemia Nos documented in this encounter Results * SUBSEQUENT HOSPITAL CARE,LEVL II (09/29/2002) us Roslyn Sandoval MD EVALUATION AND MGMT Final R esult * INITIAL HOSPITAL CARE,LEVL II (09/25/2002) us Roslyn Sandoval MD EVALUATION AND MGMT Final R esult documented in this encounter Visit Diagnoses Diagnosis Unspecified transient cerebral ischemia- Primary termite exterminator (current) use of anticoagulants Long-term (current) use of anticoagulants Chest pain, unspecified documented in this encounter Care Teams Systems Programmer Analyst Relationship Specialty Start Date End Date Roslyn Sandoval MD NO INFO AVAILABLE 10/03/22 PCP - General 03/27/99 08/11/19 Korin Lamb MD [address] , [address] [address] PCP - General Family Practice 08/12/19 03/15/21 Jasmin Maradiaga PA-C [address] , [address] [address] PCP - General Family Medicine 03/16/21 Hector Goode MD [address] [address] Neurology 05/01/17 John Cancino MD [address] [address] Family Medicine - Sports Medicine 07/30/17 Roslyn Sandoval MD NO INFO AVAILABLE 10/03/22 Assigned PCP 02/08/18 06/05/19 Korin Lamb MD [address] , [address] [address] Assigned PCP 06/06/19 04/29/20 Carl Farah MD [address] [place] [address] Assigned Heart and Vascular Provider 12/31/19 12/16/20 Roslyn Sandoval MD NO INFO AVAILABLE 10/03/22 Assigned PCP 04/30/20 05/06/20 Korin Lamb MD [address], [facility] [address] [place] [address] Assigned PCP 05/07/20 05/28/20 Gavi Cloud MD [address] [place] [address] Assigned PCP 05/29/20 01/06/21 Jasmin Maradiaga PA-C [address] , [address] [address] Assigned PCP 01/07/21 09/28/21 Itzel Polk APRN CNP NO INFO AVAILABLE 12/27/2021 Assigned Heart and Vascular Provider 12/17/20 02/17/21 Carl Farah MD [address] [place] [address] Assigned Heart and Vascular Provider 02/18/21 12/14/21 Gavi Cloud MD [address] [place] [address] Assigned PCP 09/29/21 10/19/21 Jasmin Maradiaga PA-C [address] [place] [address] Assigned PCP 10/20/21 Itzel Polk APRN CIRCUIT DESIGNER NO INFO AVAILABLE 12/27/2021 Assigned Heart and Vascular Provider 12/15/21 05/17/22 Carl Farah MD [address] [facility] [place] [address] Assigned Heart and Vascular Provider 05/18/22 Hector Goode MD [address] [facility] [id number] [place] [address] Assigned Neuroscience Provider 07/01/23 documented as of this encounter
--- OUTSIDE RECORDS SUMMARY | 2024-02-01 08:25 | XMS_ITS | Encounter Summary ---
Author Organization [place] Address [address] [place] [address] Care Team Providers Care Dental Equipment Mechanic Name Role Phone Roslyn Sandoval MD Primary Care Provider Unav ailable Hector Goode MD Unavailable John Cancino MD Unavailable [phone] Roslyn Sandoval MD Unavailable UnavailKorin Cash MD Unavailable +- [phone] Korin Lamb MD Primary Care Provider [phone] Carl Farah MD Unavailable [phone] Roslyn Sandoval MD Unavailable UnavailKorin Cash MD Unavailable +- [phone] Gavi Cloud MD Unavailable [phone] Jasmin Maradiaga PA-C Unavailable + Itzel Polk APRN WIRELESS DEVELOPMENT MANAGER Unavailable Unavailable Carl Farah MD Unavailable [phone] Jasmin Maradiaga PA-C Primary Care Provid er Gavi Cloud MD Unavailable +[phone] Jasmin Maradiaga PA-C Unavailable + [phone] Itzel Polk APRN WIRELESS DEVELOPMENT MANAGER Unavailable Unavailable Carl Farah MD Unavailable [phone] Hector Goode MD Unavailable Encounter Details Date Type Department Care Team (Late st Contact Info) Description 01/21/2002 Office Visit-[facility] [address] [place] [phone] Unknown, DoctorMD Social History Tobacco Use Types Packs/Day Years Used Date Smoking Tobacco: Never Alcohol Use Standard Drinks/Week Comments No 0 (1 standard drink = 0.6 oz pur e alcohol) on occ Comments No Sex and Gender Information Value Date Recorded Sex Assigned at Not on file 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 - Hypercholesterolemia, 272.0 3. - Congestive Heart Failure, 428.0 4. Chart Request, 000 ALLERGIES Sulfa MEDICATIONS 1. Cozaar 50 Mg, 1 p.o. q.d. 2. Aspirin 81 mg, 1 p.o. q.d. 3. Lipitor 10 mg, 1 p.o. q.d. 4. Lasix 40 Mg, 1-1/2 p.o. q.d. 5. Celexa 20 mg, 1 p.o. q.d. 6. Coreg 25 Mg, 2 p.o. b.i.d. 7. K-tab 10 Meq, Takes 20 mEq's daily 8. Spironol 25 Mg, 1 p.o. q.d. 9. Lipitor 10 Mg, 1 p.o. q.d. CHIEF COMPLAINTS F/u echo HISTORY OF PRESENT ILLNESS I had the pleasure of following up on our mutual patient, Ms. Griselda Lai. As you know, we have followed her for many, many years for dilated cardiomyopathy which was asymptomatic. She has been onmultiple medications to prevent progression and has done well over the years. The patient came in today for a follow up of this. Unfortunately, her echocardiogram now shows a drop in ejection fraction. She had maintained a stable ejection fraction of 45%. The reader read her echo showing an EF of 25-30%. I reviewed the echo because I was bothered by the drop, and I believe the EF is probably 30-35%. Regardless, it does represent a drop in function which represents progression of her cardiomyopathy. Symptomatically, she does note some shortness of breath and chest congestion after she lays down. This may be a very mild form of PND from mild heart failure. Otherwise, she has no symptoms cardiacwise such as daytime shortness of breath, chest pain, or dizziness. She has chronic stable ankle edema. PAST HISTORY Past Medical Illnesses: hyperlipidemia, irritable bowel syndrome, depression, sarcoid leg, sleep apnea, previously healthy with no significant past history., leukocytosis (w/u in progress) Past Cardiac Illnesses: CHF,LBBB, Idiopathic Dilated Cardiomyapathy Cardiology Procedures-Invasive: , cardiac cath (left) Cardiology Procedures-Noninvasive: , , echocardiogram, echocardiogram January 2002, treadmill Thallium Cardiac Cath Results: nl. coronaries,EF 50-55% Left Ventricular Ejection Fraction: 25% PMHx Echo Results: :LV dilation, EF 45-55%, LA dilation, mild MR 1+,mild TR,1+ SOCIAL HISTORY Alcohol Use - denies drinking; [...] Hours Worked - 40 hours per week; PHYSICAL EXAMINATION VITAL SIGNS: Blood Pressure: 102/60 Pulse- 80.00/min. Weight- .00 lbs. Height- .00 Temperature- .00 [...] time, person and place. MEDICATIONS UPDATED TODAY: Aspirin 81 mg, 1 p.o. q.d., DIRECTED Lipitor 10 mg, 1 p.o. q.d., DIRECTED MEDICATION STOPPED TODAY: Piroxicam 20 mg IMPRESSIONS/PLAN I understand she has a leukocytosis, and you are currently working that up with Dr. Nair. As you remember, the patient had a remote history of sarcoid and whether she could have had sarcoid cardiomyopathy is not clear. At this time I have talked to her in depth about the progression of her cardiomyopathy. I talked toher about watching for progressive signs of heart failure. There really are not any significant medicine changes that need to be made. If she developed symptomatic heart failure we can increase her diuretic and add digoxin. We could consider resynchronization pacemaker therapy, but until she develops clinical symptoms, I do not think any of those are necessary. Since her echoes were done two years apart and they showed a new drop, I will get another echo in six months to make sure that this is not progressively dropping further, and I will see her at that time. TODAYS ORDERS 1. Return Visit 6 months f/u echo 2. 2D, color flow, doppler 6 months 3. Bio-Z 6 months Carl Farah M.D. documented in this encounter Plan of Treatment Upcoming Encounters Date Type Department Care Team (Late st Contact Info) Description 06/14/2024 1:00 PM CDT Office Visit [facility] [address] [place] [address] Hector Goode MD [address] [place] [address] [id number] [place] [address] documented as of this encounter Visit Diagnoses Not on filedocumented in this encounter Care Teams Dental Equipment Mechanic Relationship Specialty Start Date End Date Roslyn Sandoval MD NO INFO AVAILABLE 10/03/22 PCP - General 03/27/99 08/11/19 Korin Lamb MD [address] [place] [address] PCP - General Family Practice 08/12/19 03/15/21 Jasmin Maradiaga PA-C [address] [address] PCP - General Family Medicine 03/16/21 Hector Goode MD [address] [id number] [place] [address] Neurology 05/01/17 John Cancino MD [address] [facility] [place] [address] Family Medicine - Sports Medicine 07/30/17 Roslyn Sandoval MD NO INFO AVAILABLE 10/03/22 Assigned PCP 02/08/18 06/05/19 Korin Lamb MD [address] [address] Assigned PCP 06/06/19 04/29/20 Carl Farah MD [address] [facility] [address] [place] [address] Assigned Heart and Vascular Provider 12/31/19 12/16/20 Roslyn Sandoval MD NO INFO AVAILABLE 10/03/22 Assigned PCP 04/30/20 05/06/20 Korin Lamb MD [address] [address] Assigned PCP 05/07/20 05/28/20 Gavi Cloud MD [address] [place] [address] Assigned PCP 05/29/20 01/06/21 Jasmin Maradiaga PA-C [address] [address] Assigned PCP 01/07/21 09/28/21 Itzel Polk APRN WIRELESS DEVELOPMENT MANAGER NO INFO AVAILABLE 12/27/2021 Assigned Heart and Vascular Provider 12/17/20 02/17/21 Carl Farah MD [address] [place] [phone] Assigned Heart and Vascular Provider 02/18/21 12/14/21 Gavi Cloud MD [address] [place] [address] Assigned PCP 09/29/21 10/19/21 Jasmin Maradiaga PA-C [address] [address] Assigned PCP 10/20/21 Itzel Polk APRN WIRELESS DEVELOPMENT MANAGER NO INFO AVAILABLE 12/27/2021 Assigned Heart and Vascular Provider 12/15/21 05/17/22 Carl Farah MD [address] [place] [phone] Assigned Heart and Vascular Provider 05/18/22 Hector Goode MD [address] [place], [place] [address], [place] [address] Assigned Neuroscience Provider 07/01/23 documented as of this encounter
[2024-02-01 08:26] LABS: Creatinine* 0.9 mg/dL (0.5-1.5); Est. Creatinine Clearance* 38.75; Estimated Glomerular Filt Rate 65 ml/min; INR 0.98 (0.91-1.10); Partial Thromboplastin Time* 28 Seconds (23-33); Prothrombin Time 13.6 Seconds
[2024-02-01 08:27] LABS: Alanine Aminotransferase* 183 U/L (4-35); Alkaline Phosphatase* 132 U/L (40-150); Anion Gap 8 mEq/L (7-15); Aspartate Amino Transferase* 150 U/L (12-35); Bilirubin Total* 4.6 mg/dL (0.1-1.5); Blood Urea Nitrogen* 14 mg/dL (7-30); Calcium* 9.3 mg/dL (8.4-10.6); Carbon Dioxide* 28 mmol/L (20-32); Glucose* 113 mg/dL (60-115); Lipase* 89 U/L (23-300)
[2024-02-01 08:31] LABS: Bilirubin Direct* 3.6 mg/dL (0.0-0.5)
--- NOTE | 2024-02-01 09:10 | CRLHL7_ITS ---
For Patients: As a result of the Cures Act, medical imaging exams and procedure reports are released immediately into your electronic medical record. You may view this report before your referring provider. If you have questions, please contact your health care provider. INDICATION: Hypoxia. TECHNIQUE: Chest 1 views. COMPARISON: None. FINDINGS: Cardiovasculature and mediastinum: Heart size is normal. Unremarkable mediastinum. Lungs and pleural spaces: Lungs are clear. No sign of infiltrate or mass. No sign of pleural effusion. No pneumothorax. Bones and soft tissues: No significant findings. IMPRESSION: Negative chest. Dictated by Johnny Thorne MD @ 02/01/2024 9:39:53 AM (Electronically Signed)
[2024-02-01 09:37] LABS: Ammonia* < 9.0 umol/L (13.1-30.0)
[2024-02-01] MEDS: PIPERACILLIN/TAZOBACTAM 3.375 GM in 0.9 % SODIUM CHLORIDE Mini-bag 100 ML IVPB (09:41)
[2024-02-01 09:57] LABS: Troponin I* 0.05 ng/mL (0.01-0.04)
--- NOTE | 2024-02-01 10:05 | RESP.RT ---
Patient sitting up in chair, SaO2 decreases to 80% with patient movement, having patient cough, deep breath restores SaO2 to low 90%. Patient has good clear dry cough able to clear secretions when present. BBS clear good air movement all feels, with RLL very slight diminished over other lobes. Chest X-ray clear. Patient was placed on 1 Lpm to stabilize SO2, SaO2 96%. Patient has stated not SOB.
== END 2024-02-01 11:15 | disposition short-term general hospital (02) ==
PROVIDERS: Emergency Provider Family Medicine; PCP Family Medicine
DX: K81.0 Acute cholecystitis (principal); R17 Unspecified jaundice; R09.02 Hypoxemia
CPT/HCPCS: 36415; 71045; 74177; 80053; 82140; 82248; 82565; 83605; 83690; 84484; 85025; 85610; 85730; 86140; 93005; 94761; 96365; 96375; 99285; J2405; J2543; J7030; Q9967

== ENCOUNTER 2024-02-01 11:10 | Outpatient (CLI) | payer MEDICARE, BC, SELFPAY ==
--- OUTSIDE RECORDS SUMMARY | 2024-02-02 15:44 | XMS_ITS | Data Portability ---
Author Organization [place] [facility] [place] [facility] [place] Address [address] [place] [address] Care Team Providers Care Air Operations Manager Name Role Phone GEOVANNIGAVI KABA Referring Provider [phone] Assessment No assessment recorded. Plan of Treatment Reminders Order Date Submit Date Provider Last Modified By Organization Details Last Modified Time Details Appointments None recorde d. Lab urinaly sis, dipstic k 2023 024 [facility], [address], [place], [address], 11:28:37 Referral None recorde d. Procedures None recorde d. Surgeries None recorde d. Imaging CT, urogram 2023 024 [facility] , [address] [place], [address], 12:00:18 Medication Orders None recorde d. Patient TargetsNo targets recorded. Patient InstructionsNo instructions recorded. Reason for Referral None Reported. Results Created Date Observation Date Name Description Value Unit Range Abnormal Flag Note LastModifiedBy Organization Detail LastModifiedTime 01/15/2001/15/2024 urina lysis , dipst ick BLOOD Trace (5 RBC/uL ) Not Available [facility] [address], [place], [address], 01/15/2024 10:59:40 01/15/20 24 01/15/2024 urina lysis , dipst ick BILIRUBIN Small (0.5 mg/dL) Not Available [facility] [address], [place], [address], 01/15/2024 10:59:40 01/15/20 24 01/15/2024 urina lysis , dipst ick UROBILINOGEN 1.0 mg/dL Not Available [facility] [address], [place], [address], 01/15/2024 10:59:40 01/15/20 24 01/15/2024 urina lysis , dipst ick KETONES Negati ve Not Available [facility] [address], [place], [address], 01/15/2024 10:59:40 01/15/20 24 01/15/2024 urina lysis , dipst ick PROTEIN Negati ve Not Available [facility] [address], [place], [address], 01/15/2024 10:59:40 01/15/20 24 01/15/2024 urina lysis , dipst ick NITRITES Negati ve Not Available [facility] [address], [place], [address], 01/15/2024 10:59:40 01/15/20 24 01/15/2024 urina lysis , dipst ick GLUCOSE Negati ve Not Available [facility] [address], [place], [address], 01/15/2024 10:59:40 01/15/20 24 01/15/2024 urina lysis , dipst ick p.H. 5.5 Not Available [facility] [address], [place], [address], 01/15/2024 10:59:40 01/15/20 24 01/15/2024 urina lysis , dipst ick S.G. (Specific [place]) 1.025 Not Available [facility] [address], [place], [address], 01/15/2024 10:59:40 01/15/20 24 01/15/2024 urina lysis , dipst ick LEUKOCYTES Negati ve Not Available [facility] [address], [place], [address], 01/15/2024 10:59:40 01/23/20 24 01/23/2024 CT, abdom en + pelvi s, w/o contr ast EXAM: CT, ABDOME N + PELVIS , W/O CONTRA ST [facility]: [facility] [place] DATE: 2023 INDICA TION: Gross hematu jessica [...] Lev Lindsey MD on 2023 at 15:[address] [facility] [address], [place], [address], 01/26/2024 12:08:25 Result Notes None recorded. Problems Name Problem SNOMED Code Status Onset Date Resolution Date Notes Provider Name and Address Organization Details Recorded Time History of malignant neoplasm of bladder 858933214 Active 2011 V10.51 : PERSONAL HX BLADDER CA [facility] Available [facility] 01:54:58 Problem Notes None recorded. Procedures Surgical History Date Name Laterality Status Provider Name and Address Organization Details Recorded Time 01/15/20 24 CystoscopyFemale completed Dong Stewart MD [address] [facility],[address], [place], [address], [facility] 01/15/2024 11:19:23 01/15/20 24 Bladder Scan completed Beatriz Richards [facility] 01/15/2024 11:04:32 Imaging Results Imaging Date Name Status LastModified by Organiz ation Details LastModified Time 01/23/2024 CT, abdomen + pelvis, w/o contrast completed [address] Radiology [facility] [address], [place], [address], 01/26/2024 12:08:25 Procedure Notes None recorded. Medical Equipment None Reported. Allergies Allergen ID Allergen Name Allergen Category Reaction Reaction Severity Criticality Documentation Date Start Date Code Code System Note Provider Name and Address Organization Details Recorded Time 228873 cortisone medicatio n Not available Not available Not available 08/26/20192011 2878 RxNorm React ion: Shock /Unco nscio sami s Not Available [facility] 0 00:42:43 881687 Substance with sulfonami de structure and antibacte rial mechanism of action (substanc e) medicatio n Not available Not available Not available 01/15/2024 [address]804 8003 SNOMED Beatriz Richards [facility] 4 10:53:39 Medications Name Sig [...] Updated DateTime 01/15/2024 162.56 cm 37.8 kg/m2 95085.32 g Beatriz Richards [facility] 01/15/2024 10:53:23 Social History Question Answer Notes LastModified by Organizat ion Details LastModified Time Tobacco Smoking Status Never Smoker Beatriz benitez [facility] 01/15/2024 10:57:07 What Is Your Level Of Alcohol Consumption? None Information not available 01/15/2024 What Was The Date Of Your Most Recent Tobacco Screening? 01/15/2024 Information not available 01/15/2024 Sex: Unknown Functional Status None recorded. Mental Status None recorded. Family History Nothing Reported. Medical History No medical history recorded. Gynecological HistoryNo gynecological history recorded. Obstetrics History GPAL:G 0 P 0 0 0 0 Immunizations Vaccine Type Date Status Provider Name and Address Organization Details Recorded Time Influenza, split virus, quadrivalent, preservative 12/21/2015 completed Beatriz Richards null, [facility] 01/15/2024 10:53:30 Influenza, high-dose, quadrivalent, PF 12/15/2020 completed Beatriz Richards null, [facility] 01/15/2024 10:53:31 Influenza, high-dose, quadrivalent, PF 12/28/2021 completed Beatriz Richards null, [facility] 01/15/2024 10:53:31 Influenza, high-dose, quadrivalent, PF 01/06/2020 completed Beatriz Richards null, [facility] 01/15/2024 10:53:31 Influenza, high-dose, quadrivalent, PF 01/21/2023 completed Beatriz benitez, [facility] 01/15/2024 10:53:31 COVID-19, mRNA, LNP-S, PF, 30 mcg/0.3 mL dose 04/29/2020 completed [facility]itez, [facility] 01/15/2024 10:53:31 COVID-19, mRNA, LNP-S, PF, 30 mcg/0.3 mL dose 05/20/2020 completed Beatriz Richards null, [facility] 01/15/2024 10:53:31 COVID-19, mRNA, LNP-S, PF, 30 mcg/0.3 mL dose 09/25/2021 [facility] 10:53:31 COVID-19, mRNA, LNP-S, PF, 30 mcg/0.3 mL dose 01/12/2021 [facility] 01/15/2024 10:53:31 COVID-19, mRNA, LNP-S, bivalent, PF, 30 mcg/0.3 mL dose 02/12/2022 completed Beatriz benitez, [facility] 01/15/2024 10:53:31 COVID-19, mRNA, LNP-S, PF, yokasta-sucrose, 30 mcg/0.3 mL 01/21/2023 completed Beatriz benitez, [facility] 01/15/2024 10:53:31 pneumococcal polysaccharide PPV23 12/19/2006 completed Beatriz benitez, [facility] 01/15/2024 10:53:31 pneumococcal polysaccharide PPV23 01/23/2018 completed Beatriz benitez, [facility] 01/15/2024 10:53:31 Novel Hvzgoflit-W8V8-96, all formulations 02/09/2009 completed Beatriz benitez, [facility] 01/15/2024 10:53:31 Pneumococcal conjugate PCV 13 02/19/2012 completed Beatriz benitez, [facility] 01/15/2024 10:53:31 zoster live 02/26/2007 completed Beatriz benitez, [facility] 01/15/2024 10:53:31 Influenza, high-dose, trivalent, PF 12/25/2015 completed Beatriz benitez, [facility] 01/15/2024 10:53:31 Influenza, high-dose, trivalent, PF 01/16/2019 completed Beatriz benitez, [facility] 01/15/2024 10:53:31 Influenza, split virus, trivalent, preservative 11/21/2008 completed Beatriz benitez, [facility] 01/15/2024 10:53:31 Influenza, split virus, trivalent, preservative 12/16/2003 completed Beatriz benitez, [facility] 01/15/2024 10:53:31 Influenza, split virus, trivalent, preservative 12/16/2002 completed Beatriz benitez, [facility] 01/15/2024 10:53:31 Influenza, split virus, trivalent, preservative 12/19/2006 completed Beatriz benitez, [facility] 01/15/2024 10:53:31 Influenza, split virus, trivalent, preservative 12/20/1998 completed Beatriz benitez, [facility] 01/15/2024 10:53:31 Influenza, split virus, trivalent, preservative 12/29/2000 completed Beatriz benitez, [facility] 01/15/2024 10:53:31 Influenza, split virus, trivalent, preservative 01/02/2006 completed Beatriz benitez, [facility] 01/15/2024 10:53:31 Influenza, split virus, trivalent, preservative 01/06/2008 completed Beatriz benitez, [facility] 01/15/2024 10:53:31 Influenza, split virus, trivalent, preservative 02/28/2000 completed Beatriz benitez, [facility] 01/15/2024 10:53:31 Influenza, split virus, trivalent, PF 12/06/2009 completed Beatriz benitez, [facility] 01/15/2024 10:53:31 Influenza, split virus, trivalent, PF 12/19/2011 completed Beatriz benitez, [facility] 01/15/2024 10:53:31 Td (adult), 5 Lf tetanus toxoid, preservative free, adsorbed 07/03/2009 completed Beatriz benitez, [facility] 01/15/2024 10:53:31 Influenza, split virus, quadrivalent, PF 11/29/2016 completed Beatriz benitez, [facility] 01/15/2024 10:53:31 Influenza, split virus, quadrivalent, PF 12/30/2014 completed Beatriz benitez, [facility] 01/15/2024 10:53:31 Influenza, split virus, quadrivalent, PF 01/23/2018 completed Beatriz benitez, [facility] 01/15/2024 10:53:31 Past Encounters Encounter ID Performer Location Encounter Start Date Encounter Closed Date Diagnosis/Indication Diagnosis SNOMED-CT Code Diagnosis ICD10 Code [id number] MD MIRTHA [facility] [address] [place] [address] 01/15/2024 10:39:58 01/16/2024 11:03:16 Juan C hematuria [id number] R31.0 Health Concerns Section Related Observation LastModified by Organization Detai ls LastModified Time None Recorded Concern Status LastModified by Organization Details LastModified Time None Recorded Advance Directives Directive None Recorded Payers Encounter Date Sequence Insurance Name Policy Number Policy Bach Covered Member ID Bach Member ID Guarantor Name 01/15/2024 1 [place] Status [employer] Griseldaaudi Torreon [id number] Griselda K Ming 01/15/2024 2 [place] [id number] Griselda K Ming [id number] Griselda K Ming Notes Date Note Type Note Provider Name and Address Organization Details Recorded Time 01/15/2024 text/html 79 YO F referred by Dr. Gavi Cloud MD ([facility]) for evaluation of hematuria w/ history [...] sore at the perineum Dong Stewart MD [address] [place] [address],[address], [place], [address], [place] [facility] 01/15/2024 11:28:42 OBGyn Episode No OBEpisode recorded.
--- OUTSIDE RECORDS SUMMARY | 2024-02-02 15:44 | XMS_ITS | Clinical Summary ---
Author Organization [facility] Address [place], [place] [address] Care Team Providers Care Web Content Coordinator Name Role Phone Physicians, [facility] Primary Care Provi luis Allergies Active Allergy [...] Type Department Care Team Description 01/28/2024 Telephone [facility] [place] [address] [place] [phone] Maria Dolores Ventura MD Pharmacist Medication Management 01/23/2024 9:45 AM WAGE AND SALARY ADMINISTRATOR Office Visit [facility] [place] [address] [place] [phone] Maria Dolores Ventura MD Follow Up (patient states they are out of breath a lot. patient wants different prescription for inhaler.) 01/23/2024 Telephone [facility] [place] [address] [place] [phone] Maria Dolores Ventura MD 01/23/2024 Travel 01/22/2024 Telephone [facility] [place] [address] [place] [phone] Maria Dolores Ventura MD 11/28/2023 Telephone [facility] [address] [place] [phone] Keith Tanner PA Appointment 11/18/2023 Telephone [facility] [place] [address] [place] [phone] Maria Dolores Ventura MD Medication Management from [...] Comments Blood Pressure 110/64 01/23/2024 9:42 AM WAGE AND SALARY ADMINISTRATOR Pulse 85 01/23/2024 9:42 AM WAGE AND SALARY ADMINISTRATOR Temperature - - Respiratory Rate - - Oxygen Saturation 96% 01/23/2024 9:42 AM WAGE AND SALARY ADMINISTRATOR Inhaled Oxygen Concentration - - Weight 106.6 kg (235 lb) 01/23/2024 9:42 AM WAGE AND SALARY ADMINISTRATOR Height 162.6 cm (5' 4) 01/23/2024 9:42 AM WAGE AND SALARY ADMINISTRATOR Body Mass Index 40.34 01/23/2024 9:42 AM WAGE AND SALARY ADMINISTRATOR Plan of Treatment Health Maintenance Due Date [...] MAXIMAL INSPIRATORY PRESSURE Routine 01/23/2024 12:58 PM WAGE AND SALARY ADMINISTRATOR Dyspnea, unspecified type SCAN-PULMONARY FUNCTION TEST 01/23/2024 12:00 AM WAGE AND SALARY ADMINISTRATOR from Last 3 Months Results * SCAN-PULMONARY FUNCTION TEST (01/23/2024 12:00 AM WAGE AND SALARY ADMINISTRATOR) Scanner OTHER from Last 3 Months Care Teams Web Content Coordinator Relationship Specialty Start Date End Date Physicians, [facility] [address] [place] [address] [address] [place] [address] PCP - General Nurse Practitioner - Family 11/18/23
--- OUTSIDE RECORDS SUMMARY | 2024-02-02 15:45 | XMS_ITS | Continuity of Care Document ---
Author Organization [facility] Address [address] [place] [address] Phone Care Team Providers Care Loan Teller Name Role Phone Lobo SHRESTHA, Harvinder Unavailable [...] Antibodies Dna Antibody, Single Strand Dna Antibody, Klet[place] Dehe [place] Nuclear Antigen Antibodies CCP Antibody Rheumatoid Factor, [...] [facility], [address], [place], [address], [place] tel:[phone] [facility] , Giant cell arteritis with polymyalgia rheumaticaRa ised antibody titerOther salvage determiner (current) drug therapyCouns eling 4 Lobo Blanton. [address], [address] [place] [address], [address], [place]. tel:[phone] Referring Provider: Harvinder Chou, [address], [place], [facility]. tel:[phone] [facility], [address], [place], [address], [place] tel:[phone] [facility] , No Information 4 Lobo Blanton. [address], [address], [place], [address], [place]. tel:[phone] Referring Provider: Harvinder Chou, [address], [place], [facility]. tel:[phone] [facility], [address], [place], [address], [place] tel:[phone] [facility] , No Information 4 Lobo Blanton. [address], [address], [place], [address], [place]. tel:[phone] [facility], [address], [place], [facility], [place] tel:[phone] [facility] , No Information 4 Lobo Blanton. [address], [address], [place], [place], [facility], [place]. tel:[phone] Referring Provider: Harvinder Chou, [address], [place], [place], [facility]. tel:[phone] [facility], [address], [place], [facility], [place] tel:[phone] [facility] , Other salvage determiner (current) drug therapy 4 Lobo Blanton. [address], [address], [place], [place], [facility], [place]. tel:[phone] Referring Provider: Harvinder Chou, [address] [place] [address], [facility]. tel:[phone] [facility], [address], [place], [facility], [place] tel:[phone] [facility] , No Information 4 Lobo Blanton. [address], [address], [place], [place], [facility], [place]. tel:[phone] Referring Provider: Harvinder Chou, [address] [place] [address], [facility]. tel:[phone] Office/Outpa tient Visit, Est [facility], [address], [place], [address], [place] tel:[phone] [facility] , Raised antibody titerGiant cell arteritis with polymyalgia rheumaticaOt her long-term (current) drug therapyAbnor mal results of liver function studies 4 Lobo Blanton. [address], [address], [place], [place], [facility], [place]. tel:[phone] Referring Provider: Harvinder Chou, [address], [place], [place], [facility]. tel:[phone] [facility], [address], [place], [facility], [place] tel:[phone] [facility] , No Information 4 Lobo Blanton. [address], [address], [place], [place], [facility], [place]. tel:[phone] Referring Provider: Harvinder Diamond José Antonio, [address], [place], [facility]. tel:[phone] Office/Outpa tient Visit, Est [facility], [address], [place], [facility], tel:[phone] [facility] , Raised antibody titerGiant cell arteritis with polymyalgia rheumaticaOt her salvage determiner (current) drug therapyWeakn ess 4 Lobo Blanton. [address], [address], [place], [facility], [place]. tel:[phone] Referring Provider: Harvinder Chou, [address], [place], [place], [facility]. tel:[phone] [facility], [address], [place], [facility], [place] tel:[phone] [facility] , No Information 4 Lobo Blanton. [address], [place], [facility], [place]. tel:[phone] Referring Provider: Harvinder Diamond José Antonio, [address], [place], [facility]. tel:[phone] [facility], [address], [place], [facility], [place] tel:[phone] [facility] , No Information 4 Lobo Blanton. [address], [address], [place], [place], [facility], [place]. tel:[phone] Referring Provider: Harvinder Chou, [address], [place], [place], [facility]. tel:[phone] Office/Outpa tient Visit, Est [facility], [address], [place], [facility], [place] tel:[phone] [facility] , Raised antibody titerOther salvage determiner (current) drug therapyGiant cell arteritis with polymyalgia rheumatica 4 Lobo Blanton. [address], [address], [place], [place], [facility], [place]. tel:[phone] Referring Provider: Harvinder Chou, [address], [place], [place], [facility]. tel:[phone] Office/Outpa tient Visit, Est [facility], [address], [place], [facility], [place] tel:[phone] [facility] , Polymyalgia rheumaticaOt her salvage determiner (current) drug therapyRaise d antibody titer 4 Lobo Blanton. [address], [address], [place], [place], [facility], [place]. tel:[phone] Referring Provider: Harvinder Chou, [address], [place], [place], [facility]. tel:[phone] Office/Outpa tient Visit, Est [facility], [address], [place], [address], [place] tel:[phone] [facility] , Polymyalgia rheumaticaOt her salvage determiner (current) drug therapy 4 Lobo Blanton. [address], [address], [place], [address], [place]. tel:[phone] Referring Provider: Harvinder Diamond José Antonio, [address], [place], [address]. tel:[phone] Office/Outpa tient Visit, New [facility], [address], [place], [address], [place] tel:[phone] [facility] , Inflammatory polyarthropa thyOther long-term (current) drug therapy 4 Lobo Blanton. [address], [address], [place], [address], [place]. tel:[phone] Referring Provider: Nikhil Ac José Antonio, [address], [place], [address]. tel:[phone] Office/Outpa tient Visit, New [facility], [address], [place], [address], [place] tel:[phone] [facility] , Back pain (chief complaint) Low back painMuscular dystrophy, unspecified 9 Jose Rafael Martinez. [facility] [address], [place], [address], [place]. tel:[phone] Referring Provider: Juan Garcia, [facility] [address], [place], [address]. tel:[phone] [facility], [address], [place], [address], [place] tel:[phone] [facility] , No Information 9 Jose Rafael Martinez. [facility] [address], [place], [address], [place]. tel:[phone] Family History Family Member Type Diagnosis Age At Onset Mother Problem (finding) Low back pain Sister Problem (finding) Low back pain Brother Problem (finding) muscular dystrophy Brother Problem (finding) Low back pain Father Problem (finding) Low back pain Payers Payer name Insurance type Covered green party ID Мария puentes(s) Medicare [id number] [facility] [id number] Social History Type Description Quantity Date Captured Comments Alcohol Use Details No Caffeine Use Details coffee 1 cup per day Tobacco Use Status Current non-smoker Smoking Status Never smoker she klever es alone [place] [facility]. She is retired. No alcohol or [...] polymyalgia rheumatica CBC/DMARD today Related to Other salvage determiner (current) drug therapy CBC/DMARD today Related to Other salvage determiner (current) drug therapy prednisone taper: St arting tomorrow decrease to 9 mg daily x 2 weeks, then decrease by 1 mg every 2 weeks, not to taper below 5 mg daily until seen again in clinicShe will follow-up in clinic in 3 monthsContinue Actemra 6 mg/kg every 4 weeks Related to Giant cell arteritis with polymyalgia rheumatica CBC/DMARD today Related to Other salvage determiner (current) drug therapy prednisone taper: St arted tomorrow decrease to 12.5 mg daily x 2 weeks, then 10 mg daily until follow-upShe will follow-up in clinic in 4 weeksContinue Actemra 6 mg/kg every 4 weeks Related to Giant cell arteritis with polymyalgia rheumatica Continue prednisone 12.5 mg daily for nowStart Actemra 6 mg/kg every 4 weeks once approved Related to Giant cell arteritis with polymyalgia rheumatica baseline hepatitis a nd TB screens today in anticipation of long-term immunosuppression Related to Other long-term (current) drug therapy Prednisone taper: af ter [...] Extractable nuclear antigens were negative. assessment Other salvage determiner (current) drug t herapy impression She is tolerating Actemra well N assessment Counseling impression We discussed the dapnhie ing of her Actemra infusion with her [...]
--- OUTSIDE RECORDS SUMMARY | 2024-02-02 15:45 | XMS_ITS | Continuity of Care Document ---
Author Organization [facility] Address [address] [place] [address] Phone Care Team Providers Care Application Support Name Role Phone Violette Ashley DNP Unavailable [...] Diagnoses Date Provider Providers Copied on Encounter [facility], [address] [place], [place], [id number] , [place] tel:[phone] [facility] No Information 4 Dion Oakes. [address] [facility] [address], [place], [place], [id number], [place]. tel:[phone] OFFICE/OUTPA TIENT VISIT, EST [facility], [address] [place], [place], [id number] , [place] tel:[phone] [facility] [place] Widespread pain (chief complaint) Chronic pain syndromePain in left shoulderOther termite treater (current) drug therapyUnilatera l primary osteoarthritis, right knee 4 Angy Eastman. [address], [place], [place], [id number], [place]. tel:[phone] Referring Provider: Rachid Schaeffer, [address] [place] [address] [place], [address] . tel:[phone] OFFICE/OUTPA TIENT VISIT, [facility], [address] [place] [address], [id number] , [place] [phone] [facility] [place] low back pain (chief complaint) Pain in left kneePain in right kneePain in thoracic spineOther intervertebral disc degeneration, lumbar regionLow back pain 8 Geovani Tiffanie. [address] [place] [address], [id number], [place]. tel:[phone] Referring Provider: Rachid Schaeffer, [address] [place] [address] [place], [address] . tel:[phone] OFFICE/OUTPA TIENT VISIT, [facility], [address] [place] [address], [id number] , [place] [phone] [facility] [place] low back pain (chief complaint) Pain in left kneePain in right kneeSpondylosis w/o myelopathy or radiculopathy, lumbar regionLow back pain 8 Geovani Tiffanie. [address] [place], [place], [id number], [place]. tel:[phone] Referring Provider: Rachid Schaeffer, [address] [place] [address] [place], [address] . tel:[phone] OFFICE/OUTPA TIENT VISIT, [facility], [address] [place] [address], [id number] , [place] [phone] [facility] [place] low back pain (chief complaint) Pain in left kneePain in right kneeSpondylosis w/o myelopathy or radiculopathy, lumbar regionOther intervertebral disc degeneration, lumbar regionLow back painPain in thoracic spine 8 Geovani Tiffanie. [address] [place] [address], [id number], [place]. tel:[phone] Referring Provider: Rachid Schaeffer, [address] [place] [address] [place], [address] . tel:[phone] OFFICE/OUTPA TIENT VISIT, EST [facility], [address] [place] [address] [place], [id number] , [place] tel:[phone] [facility] low back pain (chief complaint) Low back painOther intervertebral disc degeneration, lumbar regionPain in left kneePain in right kneeSpondylosis w/o myelopathy or radiculopathy, lumbar regionPain in left hand Fe-0 8 Geovani Tiffanie. [address] [place] [address], [id number], [place]. tel:[phone] Referring Provider: Rachid Schaeffer, [address] [place] [address] [place], [address] . tel:[phone] [facility], [address] [place] [address], [id number] , [place] tel:[phone] [facility] Spondylosis w/o myelopathy or radiculopathy, lumbar region 7 Dang Coty. [address] [place] [address], [id number], [place]. tel:[phone] Referring Provider: Rachid Schaeffer, [address] [place], [place] [address], [address] . tel:[phone] [facility], [address] [place] [address], [id number] , [place] [phone] [facility] Spondylosis w/o myelopathy or radiculopathy, lumbar region 7 Geovani Tiffanie. [address] [place] [address], [id number], [place]. [phone] [facility], [address] [place] [address], [id number] , [place] tel:[phone] [facility] Spondylosis w/o myelopathy or radiculopathy, lumbar region 7 Dang Coty. [address] [place] [address], [id number], [place]. tel:[phone] Referring Provider: Rachid Schaeffer, [address] [place] [address] [place], [address] . tel:[phone] [facility], [address] [place] [address], [id number] , [place] tel: [phone] [facility] [place] Spondylosis w/o myelopathy or radiculopathy, lumbar region Feb-0 7 Geovani Tiffanie. [address] [place] [address], [id number], [place]. tel:[phone] [facility], [address] [place] [address], [id number] , [place] tel: [phone] [facility] [place] Spondylosis w/o myelopathy or radiculopathy, lumbar region Feb-0 7 Geovani Tiffanie. [address] [place] [address], [id number], [place]. tel:[phone] [facility], [address] [place] [address], [id number] , [place] tel: [phone] [facility] Spondylosis w/o myelopathy or radiculopathy, lumbar region 7 Dang Coty. [address] [place] [address], [id number], [place]. tel:[phone] Referring Provider: Rachid Schaeffer, [address] [place], [place] [address], [address] . tel:[phone] [facility], [address] [place] [address], [id number] , [place] tel: [phone] [facility] Spondylosis w/o myelopathy or radiculopathy, lumbar region 7 Dang Coty. [address] [place] [address], [id number], [place]. tel:[phone] Referring Provider: Rachid Schaeffer, [address] [place], [place] [address], [address] . tel:[phone] OFFICE/OUTPA TIENT VISIT, NEW [facility], [address] [place], [place], [id number] , [place] tel:[phone] [facility] [place] low back pain (chief complaint) Low back painPain in right kneePain in left kneeOther intervertebral disc degeneration, lumbar regionSpondylosi s w/o myelopathy or radiculopathy, lumbar region 7 Geovani Moreno. [address] [place], [place], [id number], [place]. tel:[phone] Referring Provider: Rachid Schaeffer, [address] [facility] [place], [address] . tel:[phone] Family History Family Member Type Diagnosis Age At Onset Father Problem (finding) back problems Payers Payer name Insurance type Covered libertarian ID Authordion puentes(s) Medicare MB [id number] Social History Type Description Quantity Date Captured [...] DYE Bilateral spine, thoracic ordered Referral Ordered: [facility] (related to Pain in left hand) ordered Referral Ordered: [facility] (related to Pain in right hand) ordered Referral Referred To: [facility] [address] [place], [place] [id number] Ordered: Referrals: [facility]. Location: [facility]. Evaluate and treat ordered Future Order: Lab Order COMPLIAN CE DRUG ANALYSIS, URINE, WITH MED REPORT ([id number]), Ordered on: Ordered History Of Present Illness [...] relief). All injections have been completed at [facility]. She states she finds more relief from injections for the R shoulder rather than the L shoulder. Notes the cortisone injections had caused an allergic reaction.Currently managed on Flexeril, Meloxicam, and Hanna 5-325mg with varying degrees of benefit. She [...] is here for a f/u. Has #185 Hanna remaining - surplus. Medications are effective at [...] is here for a f/u. Has #112 Hanna remaining - on track. Medications are effective [...] down and sitting. low back pain (comments) Judth i s here for initial follow up. She [...] therapyChiropractorMedications:Tylenol-no reliefNSAIDS-no reliefNerve(Gabapentin)-not triedTopicals-no reliefMuscle relaxant-not tried. Bcjotn-azuqnbwf-it relief, Medical records-[facility], low back pain Onset: gradual w ithout [...]
--- OUTSIDE RECORDS SUMMARY | 2024-02-02 15:45 | XMS_ITS | Clinical Summary ---
Author Organization [facility] Address [facility] [place] [address] Care Team Providers Care Burring Wheel Operator Name Role Phone Hector Goode MD Unavailable John Cancino MD Unavailable [phone] Jasmin Maradiaga PA-C Primary Care Provid er Jasmin Maradiaga PA-C Unavailable + [phone] Carl Farah MD Unavailable [phone] Hector Goode MD Unavailable Allergies Active Allergy Reactions Criticality Noted Date Comments Cortisone 05/29/2006 Cortisone shots Sulfa Antibiotics 06/16/1998 Medications GLEEVEC 400 MG OR TABS [address] Bustillo 30 0 12/20/19 07 Discontinue d(Med Rec(No AVS / No eCancel)) CENTRUM SILVER PO TABS Take 1 tablet by mouth daily. Suspended ASPIRIN 81 MG PO TBEC Take 81 mg by mouth daily. Discontinue d(Med Rec(No AVS / No eCancel)) FISH OIL 1000 MG PO CAPS Take 2 g by mouth daily. Discontinue d(Med Rec(No AVS / No eCancel)) VITAMIN D, CHOLECALCIFEROL, PO Take 1,000 Units by mouth daily Discontinue d(Med Rec(No AVS / No eCancel)) brimonidine (ALPHAGAN) 0.2 % ophthalmic solution INSTILL 1 DROP INTO RIGHT EYE TWICE A DAY 11/17/19 Discontinue d(Med Rec(No AVS / No eCancel)) ASMANEX, 60 METERED DOSES, 220 MCG/INH inhaler Inhale 1 puff into the lungs every evening. 10/09/19 21 Discontinue d(Med Rec(No AVS / No eCancel)) betaxolol (BETOPTIC) 0.5 % ophthalmic solution Place 1 drop into the right eye 2 times daily. 01/03/20 Suspended dorzolamide-timol ol (COSOPT) 2-0.5 % ophthalmic solution Place 1 drop into the right eye 2 times daily. 12/27/19 23 Suspended predniSONE (DELTASONE) 5 MG tablet Take 15 tablets by mouth daily 04/09/19 24 Discontinue d(Therapy completed (No AVS)) tafluprost (ZIOPTAN) 0.0015 % SOLN ophthalmic solution Place 1 drop into the right eye at bedtime 04/30/19 24 Suspended carvedilol (COREG) 12.5 MG tabletIndications :Ischemic cardiomyopathy Take 1 tablet (12.5 mg) by mouth 2 times daily (with meals) 180 tablet 3 07/31/19 24 Suspended furosemide (LASIX) 20 MG tabletIndications :Primary cardiomyopathy (H),Dilated cardiomyopathy (H) Take 1 tablet (20 mg) by mouth daily Plus 1 additional pill prn edema/shortnes s of breath, need appointment for further refill 110 tablet 3 07/31/19 24 Suspended irbesartan (AVAPRO) 75 MG tabletIndications :Primary cardiomyopathy (H) Take 1 tablet (75 mg) by mouth daily 90 tablet 3 07/31/19 24 Suspended potassium chloride prabhu ER (KLOR-CON M10) 10 MEQ CR tabletIndications :Dilated cardiomyopathy (H) Take 1 tablet (10 mEq) by mouth daily 90 tablet 3 07/31/19 24 Suspended rosuvastatin (CRESTOR) 5 MG tabletIndications :Hyperlipidemia LDL goal <100 Take 1 tablet (5 mg) by mouth daily 90 tablet 3 07/31/19 24 Suspended spironolactone (ALDACTONE) 25 MG tabletIndications :Ischemic cardiomyopathy Take 1 tablet (25 mg) by mouth every morning 90 tablet 3 07/31/19 24 Suspended sertraline (ZOLOFT) 50 MG tabletIndications :Facioscapulohume ral muscular dystrophy (H) Take 1.5 tablets (75 mg) by mouth daily 135 tablet 1 09/09/19 24 Suspended tocilizumab (ACTEMRA) 80 MG/4ML Inject into the vein every 28 days Suspended omeprazole (PRILOSEC) [address] capsuleIndication s:Gastroesophagea l reflux disease without esophagitis Take 1 capsule (40 mg) by mouth daily as needed (heartburn) 90 capsule 1 10/16/19 24 Suspended predniSONE (DELTASONE) 1 MG tablet Take 2 mg by mouth daily. 2 x 1 mg tablets 01/07/20 24 Suspended mometasone (ASMANEX TWISTHALER) 220 MCG/ACT inhaler Inhale 1 puff into the lungs every evening. Suspended imatinib (GLEEVEC) 400 MG tablet Take 400 mg by mouth daily Suspended aspirin 81 MG EC tablet Take 81 mg by mouth daily. Suspended fish oil-omega-3 fatty acids 1000 MG capsule Take 2 g by mouth daily. Suspended Vitamin D3 (CHOLECALCIFEROL) 25 mcg (1000 units) tablet Take 1 tablet by mouth daily. Suspended Active Problems Problem Noted Date Diagnosed Date Cholecystitis 02/01/2024 PMR (polymyalgia rheumatica) 04/30/2023 Class 2 severe [...] tab. Added by Ingrid Apple on 03/23/2014 [place] or callus 01/19/2013 05/24/2020 Health Alf 02/10/2012 08/25/2023 Overview (11/18/2012): State Tier Level: Tier 4 Status: n/a Relay Associate: See Letters for [facility] Care Plan Meralgia paresthetica of [...] updated by automated process. Provider to review snf current use of ant icoagulant therapy 01/31/2004 [...] Encounters Date Type Department Care Team Description 02/02/2024 12:30 PM HYDROELECTRIC STATION OPERATOR - 02/02/2024 2:30 PM HYDROELECTRIC STATION OPERATOR Surgery [facility] [address] [place] [address] [address] [place] [phone] Rivas Delcid MD CHOLECYSTECTOMY, LAPAROSCOPIC 02/02/2024 12:25 PM HYDROELECTRIC STATION OPERATOR Anesthesia Event [facility] [address], [address] [place] [address] Levar Paul MD 02/01/2024 12:06 PM HYDROELECTRIC STATION OPERATOR - Present Hospital Encounter [facility] PACU [address] [place] [phone] Delryo Hagen MD [place], Eric Edward, Cholecystitis (Primary Dx); Choledocholithiasis with acute cholecystitis 01/07/2024 2:45 PM CDT Office Visit [facility] [address] [place] [address] Gavi Cloud MD Urinary symptom [...] 02/19/2012 Pneumococcal 23 valent 01/23/2018,12/19/2006 TD,PF 7+ ([facility]) 07/03/2009,04/10/2000, 993 Zoster vaccine, live 02/26/2007 Family [...] drink = 0.6 oz pur e alcohol) PHQ-2 Answer Date Recorded PHQ-2 Score 3 04/30/2023 Adolescent Education Answer Date Record ed Getting School Help Needed Not on file 12/05 Food Insecurity Answer Date Recorded Within the past 12 months, d id you worry that your food would run out before you got money to buy more? No 02/02/2024 Within the past 12 months, d id the food you bought just not last and you didn t have money to get more? No 02/02/2024 Housing Stability Answer Date Recorded Do you have housing? (Lou g is defined as stable permanent housing and does not include staying ouside in a car, in a tent, in an abandoned building, in an overnight [place] [facility] [place], or couch-surfing.) Yes 02/02/2024 Are you worried about losing your housing? No 02/02/2024 Financial Resource Strain Answer Date R ecorded Within the past 12 months, h ave you or your family members you live with been unable to get utilities (heat, electricity) when it was really needed? No 02/02/2024 Transportation Needs Answer Date Record ed Within the past 12 months, h as lack of transportation kept you from medical appointments, getting your medicines, non-medical meetings or appointments, work, or from getting things that you need? No 02/02/2024 Interpersonal Safety Answer Date Record ed Do you feel physically and e motionally safe where you currently live? Yes 02/02/2024 Within the past 12 months, h ave you been hit, slapped, kicked or otherwise physically hurt by someone? No 02/02/2024 Within the past 12 months, h ave you been humiliated or emotionally abused in other ways by your partner or ex-partner? No 02/02/2024 Comments No Sex and Gender Information Value Date Recorded Sex Assigned at Not on file Legal Sex Female 2:58 AM HYDROELECTRIC STATION OPERATOR Gender Identity Not on file Sexual Orientation Not on file Last Filed Vital Signs Vital Sign Reading Time Taken Comments Blood Pressure 121/65 02/02/2024 3:30 PM HYDROELECTRIC STATION OPERATOR Pulse 71 02/02/2024 3:30 PM HYDROELECTRIC STATION OPERATOR Temperature 36.1 C (97 F) 02/02/2024 3:19 PM HYDROELECTRIC STATION OPERATOR Respiratory Rate 13 02/02/2024 3:30 PM HYDROELECTRIC STATION OPERATOR Oxygen Saturation 100% 02/02/2024 3:30 PM HYDROELECTRIC STATION OPERATOR Inhaled Oxygen Concentration - - Weight 112.5 kg (248 lb) 02/02/2024 12:06 PM HYDROELECTRIC STATION OPERATOR Height 162.6 cm (5' 4) 02/02/2024 12:06 PM HYDROELECTRIC STATION OPERATOR Body Mass Index 42.57 02/02/2024 12:06 PM HYDROELECTRIC STATION OPERATOR Plan of Treatment Upcoming Encounters Date Type Department Care Team (Late st Contact Info) Description 06/14/2024 1:00 PM CDT Office Visit [facility] [address] 3rd [place] [address] Hector Goode MD [address] [place] [address] [id number] [place] [address] Scheduled Procedures Name Priority Associated Diagnoses Date/Ti me CHOLECYSTECTOMY, LAPAROSCOPIC Cholecystitis Choledocholithiasis with acute cholecystitis 02/02/2024 12:27 PM HYDROELECTRIC STATION OPERATOR ENDOSCOPIC RETROGRADE CHOLANGIOPANCREATOGRAPHY, COMPLEX Cholecystitis Choledocholithiasis with acute cholecystitis 02/02/2024 12:27 PM HYDROELECTRIC STATION OPERATOR ENDOSCOPIC ULTRASOUND, ESOPHAGOSCOPY / UPPER GASTROINTESTINAL TRACT (GI) Cholecystitis Choledocholithiasis with acute cholecystitis 02/02/2024 12:27 PM HYDROELECTRIC STATION OPERATOR ENDOSCOPIC RETROGRADE CHOLANGIOPANCREATOGRAPHY, COMPLEX Cholecystitis Choledocholithiasis with acute cholecystitis Health Maintenance Due Date Last Done Comments ANNUAL REVIEW OF ORDERS 1945 HF ACTION PLAN 1945 MICROALBUMIN [...] 75+ series) 02/12/2024 Postponed from 01/04/2019 (Other) MEDICARE ANNUAL WELLNESS VISIT 04/30/2024 04/30/2023, 12/15/2020, 06/10/2016, Additional history exists MAMMO SCREENING 05/25/2024 05/26/2023, 05/08, 04/04/2021, Additional history exists ASTHMA ACTION PLAN 06/12/2024 06/13/2023, 0 06/13/2023, 06/13/2023 BMP 08/01/2024 02/02/2024, 01/09, 01/07/2024, Additional history exists LIPID 09/08/2024 09/09/2023, 08/0 10/2022, 01/01/2019, Additional history exists ALT 02/01/2025 02/02/2024, 01/09, 02/01/2024, Additional history exists CBC 02/01/2025 02/02/2024, 04/11, 01/01/2021, Additional history exists HEMOGLOBIN 02/01/2025 02/02/2024, 12/10, 04/30/2023, Additional history exists GLUCOSE 02/01/2027 02/02/2024, 01/09, 01/07/2024, Additional history exists ADVANCE CARE PLANNING 02/12/2028 [...] to complete this topic sDNA (Cologuard) Discontinued Medical Devices Implanted Type Area Apprentice Lineman Third Step Device Identifier Shelf Expiration Date Model / Serial / Lot Stent Shahab Abreu ([employer]) Gabino [id number] Clso-10-7 - [id number] Implanted:Qty : 1 on 02/02/2024 by Rivas Delcid MD at [facility] Stent N/A: [employer] [id number] 12/01/2026 CLSO-10-7 / / [id number] Procedures * The patient is currently admitted. The information in this section might not be complete until the patient is discharged. Procedure Name Priority Date/Time Associated Diagnosis Comments XR SURGERY ROBBY FLUORO LESS THAN 5 MIN W STILLS Routine 02/02/2024 3:23 PM HYDROELECTRIC STATION OPERATOR CBC WITH PLATELETS & DIFFERENTIAL Routine 02/02/2024 10:22 AM HYDROELECTRIC STATION OPERATOR RBC AND PLATELET MORPHOLOGY Routine 02/02/2024 10:22 AM HYDROELECTRIC STATION OPERATOR CBC WITH PLATELETS AND DIFFERENTIAL Routine 02/02/2024 10:22 AM HYDROELECTRIC STATION OPERATOR COMPREHENSIVE METABOLIC PANEL Routine 02/02/2024 10:22 AM HYDROELECTRIC STATION OPERATOR US ABDOMEN LIMITED STAT 02/02/2024 9: 31 AM HYDROELECTRIC STATION OPERATOR COMPREHENSIVE METABOLIC PANEL Add-On 02/01/2024 2:27 PM HYDROELECTRIC STATION OPERATOR HEPATIC FUNCTION PANEL Routine 02/01/2024 2:27 PM HYDROELECTRIC STATION OPERATOR LACTIC ACID WHOLE BLOOD WITH 1X REPEAT IN 2 HR WHEN >2 STAT 02/01/2024 2:27 PM HYDROELECTRIC STATION OPERATOR EKG 12-LEAD, TRACING ONLY STAT 02/01/2024 1:19 PM HYDROELECTRIC STATION OPERATOR OH PELVIC EXAMINATION Routine 01/07/2024 5:39 PM CDT Hematuria, unspecified type Genital atrophy of female Vaginal bleeding URINE CULTURE AEROBIC BACTERIAL ([facility]) Routine 01/07/2024 3:21 PM CDT Urinary symptom or sign Hematuria, unspecified type OH COLLECTION VENOUS BLOOD VENIPUNCTURE Routine 01/07/2024 3:08 PM CDT Other fatigue COMPREHENSIVE METABOLIC PANEL (BFP) Routine 01/07/2024 Other fatigue HEMOGRAM PLATELET DIFF (BFP) Routine 01/07/2024 Other fatigue URINALYSIS, ROUTINE (BFP) Routine 01/07/2024 Urinary symptom or sign LIPID PANEL (BFP) Routine 09/09/2023 Mixed hyperlipidemia MA SCREENING BILATERAL W/ KEVIN Routine 05/26/2023 DX BONE DENSITY Routine 12/21/2020 Screening for osteoporosis TSH WITH FREE T4 REFLEX Routine 05/24/2020 5:28 PM CDT Tired COLONOSCOPY Routine 08/06/2016 7:10 AM CDT from Last 3 Months or Most Recently Relevant to Health Maintenance Results * XR Surgery ROBBY Fluoro Less Than 5 Min w Stills (02/02/2024 3:23 PM HYDROELECTRIC STATION OPERATOR) Narrative RADIANT - 02/02/2024 3:24 PM HYDROELECTRIC STATION OPERATOR This exam was marked as non-reportable because it will not be read by a radiologist or a [facility] non-radiologist provider. Delroy Hagen MD IMG DIAGNOSTIC IMAGING ORDERABLE S Final Result RADIANT * RBC and Platelet Morphology (02/02/2024 10:22 AM HYDROELECTRIC STATION OPERATOR) RBC Morphology Confirmed RBC Indices 02/02/2024 1:18 PM HYDROELECTRIC STATION OPERATOR LABORATORY Platelet Assessment Automated Count Confirmed. Platelet morphology is normal. Automated Count Confirmed. Platelet morphology is normal. [facility] 02/02/2024 1:18 PM HYDROELECTRIC STATION OPERATOR LABORATORY Blood STRUCTURE OF RIGHT HAND / Unknown Venipuncture / Unknown 02/02/2024 10:22 AM HYDROELECTRIC STATION OPERATOR 02/02/2024 10:36 AM HYDROELECTRIC STATION OPERATOR Toño Dotson DO LAB - BLOOD ORDERABLE S Final Result LABORATORY [facility] [address], [address] [place] [address], [place] [phone] * (ABNORMAL) CBC with platelets and differential (02/02/2024 10:22 AM HYDROELECTRIC STATION OPERATOR) WBC Count 9.0 4.0 - 11.0 10e3/uL 02/02/2024 1:18 PM HYDROELECTRIC STATION OPERATOR SH LABORATORY RBC Count 3.70(L) 3.80 - 5.20 10e6/uL 02/02/2024 1:18 PM [facility] Hemoglobin 12.7 11.7 - 15.7 g/dL 02/02/2024 1:18 PM [facility] Hematocrit 36.8 35.0 - 47.0 % 02/02/2024 1:18 PM [facility] MCV 100 78 - 100 fL 02/02/2024 1:18 PM [facility] MCH 34.3(H) 26.5 - 33.0 pg 02/02/2024 1:18 PM [facility] MCHC 34.5 31.5 - 36.5 g/dL 02/02/2024 1:18 PM [facility] RDW 13.4 10.0 - 15.0 % 02/02/2024 1:18 PM [facility] Platelet Count 115(L) 150 - 450 10e3/uL 02/02/2024 1:18 PM [facility] % Neutrophils 79 % 02/02/2024 1:18 PM [facility] % Lymphocytes 10 % 02/02/2024 1:18 PM [facility] % Monocytes 8 % 02/02/2024 1:18 PM [facility] % Eosinophils 2 % 02/02/2024 1:18 PM [facility] % Basophils 1 % 02/02/2024 1:18 PM [facility] % Immature Granulocytes 0 % 02/02/2024 1:18 PM [facility] NRBCs per 100 WBC 0 <1 /100 024 1:18 PM [facility] Absolute Neutrophils 7.1 1.6 - 8.3 10e3/uL 02/02/2024 1:18 PM [facility] Absolute Lymphocytes 0.9 0.8 - 5.3 10e3/uL 02/02/2024 1:18 PM [facility] Absolute Monocytes 0.7 0.0 - 1.3 10e3/uL 02/02/2024 1:18 PM [facility] Absolute Eosinophils 0.2 0.0 - 0.7 10e3/uL 02/02/2024 1:18 PM [facility] Absolute Basophils 0.1 0.0 - 0.2 10e3/uL 02/02/2024 1:18 PM [facility] Absolute Immature Granulocytes 0.0 <=0.4 10e3/uL 02/02/2024 1:18 PM [facility] Absolute NRBCs 0.0 10e3/uL 02/02/2024 1:18 PM [facility] Blood STRUCTURE OF RIGHT HAND / Unknown Venipuncture / Unknown 02/02/2024 10:22 AM HYDROELECTRIC STATION OPERATOR 02/02/2024 10:36 AM [facility] Toño Dotson DO LAB - BLOOD ORDERABLE S Final Result LABORATORY [facility] [address], [address] [place] [address], [facility] [phone] * (ABNORMAL) Comprehensive metabolic panel (02/02/2024 10:22 AM [facility]) Only the most recent of2 resultswithin the time period is included. Sodium 140 135 - 145 mmol/L 02/02/2024 11:09 AM [facility] Potassium 3.4 3.4 - 5.3 mmol/L 02/02/2024 11:09 AM [facility] Carbon Dioxide (CO2) 28 22 - 29 mmol/L 02/02/2024 11:09 AM [facility] Anion Gap 10 7 - 15 mmol/L 02/02/2024 11:09 AM [facility] Urea Nitrogen 15.6 8.0 - 23.0 mg/dL 02/02/2024 11:09 AM [facility] Creatinine 0.94 0.51 - 0.95 mg/dL 02/02/2024 11:09 AM [facility] GFR Estimate 61 >60 mL/min/1.7 3m2 02/02/2024 11:09 AM [facility] Comment:eGFR calculated 2020 CKD-EPI equation. Calcium 9.2 8.8 - 10.4 mg/dL 02/02/2024 11:09 AM [facility] Comment:Reference intervals for this test were updated on 09/23/2023 to reflect our healthy population more accurately. There may be differences in the flagging of prior results with similar values performed with this method. Those prior results can be interpreted in the context of the updated reference intervals. Chloride 102 98 - 107 mmol/L 02/02/2024 11:09 AM [facility] Glucose 93 70 - 99 mg/dL 02/02/2024 11:09 AM [facility] Alkaline Phosphatase 149 40 - 150 U/L 02/02/2024 11:09 AM [facility] AST 124(H) 0 - 45 U/L 02/02/2024 11:09 AM [facility] ALT 182(H) 0 - 50 U/L 02/02/2024 11:09 AM [facility] Protein Total 5.4(L) 6.4 - 8.3 g/dL 02/02/2024 11:09 AM [facility] Albumin 3.8 3.5 - 5.2 g/dL 02/02/2024 11:09 AM [facility] Bilirubin Total 3.8(H) <=1.2 mg/dL 02/02/2024 11:09 AM [facility] Blood STRUCTURE OF RIGHT HAND / Unknown Venipuncture / Unknown 02/02/2024 10:22 AM HYDROELECTRIC STATION OPERATOR 02/02/2024 10:36 AM [facility] us Toño Dotson DO LAB - BLOOD ORDERABLE S Final Result LABORATORY [facility] [address], [address] [place] [address], [facility] [phone] * US Abdomen Limited (02/02/2024 9:31 AM HYDROELECTRIC STATION OPERATOR) Anatomical Region Laterality Modality Abdomen/Pelvis Ultrasound Impressions 02/02/2024 2:56 PM HYDROELECTRIC STATION OPERATOR IMPRESSION: Distended gallbladder with gallbladder sludge and stones. Negative sonographic Lo sign. Cholecystitis not excluded. Common duct is mildly distended measuring 8 mm. LAURA OLIVARES MD SYSTEM ID: [id number] Narrative 02/02/2024 2:56 PM HYDROELECTRIC STATION OPERATOR ULTRASOUND ABDOMEN LIMITED 02/02/2024 9:31 AM CLINICAL HISTORY: Right upper quadrant pain. TECHNIQUE: Limited abdominal ultrasound. COMPARISON: None. FINDINGS: GALLBLADDER: Distended gallbladder containing sludge and small stones. Gallbladder wall is 2 mm. Negative sonographic Lo sign. BILE DUCTS: There is no biliary dilatation. The common duct measures 8 mm. LIVER: Normal where seen. RIGHT KIDNEY: No hydronephrosis. PANCREAS: The pancreas is largely obscured by overlying gas. Pancreas duct measures 2-3 mm. No ascites. Procedure Note Laura Olivares MD - 02/02/2024 ULTRASOUND ABDOMEN LIMITED 02/02/2024 9:31 AM CLINICAL HISTORY: Right upper quadrant pain. TECHNIQUE: Limited abdominal ultrasound. COMPARISON: None. FINDINGS: GALLBLADDER: Distended gallbladder containing sludge and small stones. Gallbladder wall is 2 mm. Negative sonographic Lo sign. BILE DUCTS: There is no biliary dilatation. The common duct measures 8 mm. LIVER: Normal where seen. RIGHT KIDNEY: No hydronephrosis. PANCREAS: The pancreas is largely obscured by overlying gas. Pancreas duct measures 2-3 mm. No ascites. IMPRESSION: Distended gallbladder with gallbladder sludge and stones. Negative sonographic Lo sign. Cholecystitis not excluded. Common duct is mildly distended measuring 8 mm. LAURA OLIVARES MD SYSTEM ID: [id number] Rivas Delcid MD [facility] [place] ORDERABLES Final Result * Lactic Acid Whole Blood w/ 1x repeat in 2 hrs when >2 (02/01/2024 2:27 PM HYDROELECTRIC STATION OPERATOR) [facility] Lactic Acid, Initial 1.2 0.7 - 2.0 mmol/L 02/01/2024 2:38 PM HYDROELECTRIC STATION OPERATOR LABORATORY Blood STRUCTURE OF RIGHT HAND / Unknown Venipuncture / Unknown 02/01/2024 2:27 PM HYDROELECTRIC STATION OPERATOR 02/01/2024 2:33 PM HYDROELECTRIC STATION OPERATOR Delroy Hagen MD LAB - BLOOD ORDERABLES Final Res ult LABORATORY [facility] [address], [address] [place] [address], [place] [phone] * (ABNORMAL) Hepatic panel (02/01/2024 2:27 PM HYDROELECTRIC STATION OPERATOR) [facility] Protein Total 5.8(L) 6.4 - 8.3 g/dL 02/01/2024 2:56 PM HYDROELECTRIC STATION OPERATOR LABORATORY Albumin 4.0 3.5 - 5.2 g/dL 02/01/2024 2:56 PM HYDROELECTRIC STATION OPERATOR LABORATORY Bilirubin Total 4.2(H) <=1.2 mg/dL 02/01/2024 2:56 PM HYDROELECTRIC STATION OPERATOR LABORATORY Alkaline Phosphatase 158(H) 40 - 150 U/L 02/01/2024 2:56 PM HYDROELECTRIC STATION OPERATOR LABORATORY AST 145(H) 0 - 45 U/L 02/01/2024 2:56 PM HYDROELECTRIC STATION OPERATOR LABORATORY ALT 191(H) 0 - 50 U/L 02/01/2024 2:56 PM HYDROELECTRIC STATION OPERATOR LABORATORY Bilirubin Direct 3.43(H) 0.00 - 0.30 mg/dL 02/01/2024 2:56 PM HYDROELECTRIC STATION OPERATOR LABORATORY Blood STRUCTURE OF RIGHT HAND / Unknown Venipuncture / Unknown 02/01/2024 2:27 PM HYDROELECTRIC STATION OPERATOR 02/01/2024 2:36 PM [facility] Toño Dotson DO LAB - BLOOD ORDERABLE S Final Result LABORATORY [facility] [address], [address] [place] [address], [facility] [phone] * EKG 12-lead, tracing only (02/01/2024 1:19 PM HYDROELECTRIC STATION OPERATOR) Systolic Blood Pressure mmHg RADIOLOGY RESULTS Diastolic Blood Pressure mmHg RADIOLOGY RESULTS Ventricular Rate 69 BPM RAD IOLOGY RESULTS Atrial Rate 69 BPM RADIOLOG Y RESULTS OH Interval 146 ms RADIOLOG Y RESULTS QRS Duration 140 ms RADIOLO GY RESULTS QT 448 ms RADIOLOGY RESULTS QTc 480 ms RADIOLOGY RESULTS P Malcolm 62 degrees RADIOLOGY RESULTS R AXIS -41 degrees RADIOLOGY RESULTS T Malcolm 95 degrees RADIOLOGY RESULTS Interpretation ECG Sinus rhythm Left axis deviation Left bundle branch block Abnormal ECG When compared with ECG of 01-Jan-2021 21:45, No significant change was found Confirmed by MD BERNARDA, CATALINA ([id number]) on 02/02/2024 11:39:18 AM RADIOLOGY RESULTS 02/01/2024 1:19 PM HYDROELECTRIC STATION OPERATOR 02/02/2024 11:39 AM HYDROELECTRIC STATION OPERATOR us Toño Dotson DO ECG ORDERABLES Edite d Result - Final RADIOLOGY RESULTS * URINE CULTURE AEROBIC BACTERIAL ([facility]) (01/07/2024 3:21 PM CDT) Urine Voided Culture SEE NOTE [facility] Comment: CULTURE, URINE, ROUTINE Micro Number: [id number] Test Status: Final Specimen Source: Urine Specimen Quality: Adequate Result: No Growth Urine 01/07/2024 3:21 PM CDT 01/08/2024 6:22 AM CDT Narrative Resulting Agency Comment Performing Organization Information: [facility] [address] [place] [address] Serafin Tse Gavi Cloud MD LAB - NON-BEAKER NON-BLOOD F inal Result Performing Organization Address City/[facility]/ZIP Co de Phone Number [facility] [address] [phone] * (ABNORMAL) URINALYSIS, ROUTINE ([facility]) (01/07/2024) Color Urine Yellow [facility] Appearance Urine Slightly Cloudy(A) [facility] Glucose Urine Neg mg/dL [facility] Bilirubin Urine Neg [facility] Ketones Urine Neg mg/dL [facility] Specific [place] Urine 1.020 [facility] Blood Urine Large(A) [...] NON-BLOOD F inal Result Performing Organization Address [facility]/ZIP Co de Phone Number [facility] [address] [id number] * (ABNORMAL) HEMOGRAM PLATELET DIFF [...] BLOOD LABS Final Result Performing Organization Address [facility] de Phone Number [facility] [address] [phone] * (ABNORMAL) Comprehensive Metobolic Panel ([facility]) (01/07/2024) [...] 01/07/2024 us Gavi Cloud MD LAB - NON-123people BLOOD LABS Final Result Performing Organization Address [facility]/ZIP Co de Phone Number [facility] [address] * Lipid Panel ([facility]) (09/09/2023) Cholesterol 172 0 - 199 mg/dL [facility] Triglycerides 77 0 - 149 mg/dL [facility] HDL Cholesterol 82 40 - 150 mg/dL [facility] LDL-C 75 mg/dL [facility] Cholesterol/HDL Ratio 2 0 - 5 [facility] Blood 09/09/2023 us Lewis Macias MD LAB - [facility]people BLOO D LABS Final Result Performing Organization Address [facility] Co de Phone Number [facility] [address] * MA Screening Bilateral w/ Kevin (05/26/2023) MAMMOGRAM Anatomical Region Laterality Modality Breast Bilateral Other Narrative 05/26/[address] [place] [address], [address] [place] [address] Ideal : 1945 Req Phys: Jasmin Maradiaga PA-C Patient name: GRISELDA LAI Clinic: [facility] Dept No: [id number] MAMMOGRAM SCREENING KEVIN BILATERAL Exam Date: 05/26/2023 EXAM: MAMMOGRAM SCREENING KEVIN BILATERAL LOCATION: [facility] DATE: 05/26/2023 INDICATION: Asymptomatic. Screening Mammogram. COMPARISON: [...] health insurance. Recommendations are based on the [employer] Appropriateness Criteria. Patients with a BI-RADS category of 0 should follow the recommendations for further evaluation before considering supplemental screening. Dictated By: ROBERTO ELLISON M.D. Password protected electronic signature by: BMD Trans: SI Date Of Trans: 05/26/2023 1:38:00PM Date report approved and signed by interpreting physician: 05/26/2023 1:36:00PM Page 1 of 1 us Patient Reported IMG MAMMOGRAPHY ORDERABLES [facility] Result * Dexa hip/pelvis/spine* (12/21/2020) Anatomical Region Laterality Modality Dexa Other Narrative 12/21/[address] [place] [address], [address] [place] [address] Ideal : 1945 Req Phys: Josiah Stockton MD Clinic: [facility] Patient [facility]: [facility] Dept No: [id number] BONE DENSITY Exam Date: 12/21/2020 EXAM: BONE MINERAL DENSITY (DEXA) EXAM LOCATION: [facility] DATE/TIME: 12/21/2020 3:46 PM INDICATION: Screening for osteoporosis. COMPARISON: Most recent examination 10/05/2001. TECHNIQUE: The study was performed using DEXA in the AP lumbar spine and AP femur using a Hologic Discovery C. FINDINGS: Using DEXA, the results [...] 2.63 0.40 - 4.50 mIU/L [facility] Blood specimen (specimen) 05/24/2020 5:28 PM CDT 05/26/2020 3:08 AM CDT Narrative Resulting Agency Comment Performing Organization Information: CB [facility] [address] [facility] [place] [address] Serafin Tse M.D. us Gavi Cloud MD LAB - BLOOD ORDERABLES Final Result BETTE GONZALES [address] [place] [address], [facility] [phone] * COLONOSCOPY (08/06/2016 7:10 AM CDT) COLONOSCOPY [facility] Patient Name: Griselda Lai Procedure Date: [...] The [employer] Peds Colonoscope Model #PCF-H190L, [place]#131, SN#[id number] was introduced through the anus and advanced [...] perianal irritation. Procedure Code(s): --- Professional --- 18819, Colonoscopy, flexible; diagnostic, including collection of specimen(s) by brushing or washing, when performed (separate procedure) Diagnosis Code(s): --- Professional --- Z12.11, Encounter for screening for malignant neoplasm of colon R21, Rash and other nonspecific skin eruption CPT copyright 2016 [employer]. All rights reserved. The codes documented in this report are preliminary and upon bag valver review may be revised to meet current [...] Recently Relevant to Health Maintenance Insurance MEDICARE BCBS OUT OF STATE MEDICARE NONE (Work) [id number] [address] [place] [id number] MEDICARE Advance Directives For more information, please contact: [phone] * Full Code (Latest Code Status on File) Date Activated Date Inactivated Comments 02/01/2024 1:10 PM All basic and advanced life-sustaining interventions are performed as appropriate Question Answer Comments Code status determined by: Discussion with patie nt/ legal decision maker Care Teams Burring Wheel Operator Relationship Specialty Start Date End Date Jasmin Maradiaga PA-C [address] , [address] [address] PCP - General Family Medicine 03/16/21 Hector Goode MD [address] [address] Neurology 05/01/17 John Cancino MD [address] [address] Family Medicine - Sports Medicine 07/30/17 Jasmin Maradiaga PA-C [address] , [address] [address] Assigned PCP 10/20/21 Carl Farah MD [address] [facility] [address] [place] [phone] Assigned Heart and Vascular Provider 05/18/22 Hector Goode MD [address] [facility] [id number] [place] [address] Assigned Neuroscience Provider 07/01/23
--- OUTSIDE RECORDS SUMMARY | 2024-02-02 15:46 | XMS_ITS ---
Author Organization [facility] Address [address] [place] [address] Care Team Providers Care Bricklayer Apprentice Name Role Phone Hector Goode MD Unavailable John Cancino MD Unavailable [phone] Jasmin Maradiaga PA-C Primary Care Provid er Jasmin Maradiaga PA-C Unavailable + [phone] Carl Farah MD Unavailable [phone] Hector Goode MD Unavailable Active Problems Problem Noted Date Diagnosed Date [...] updated by automated process. Provider to review Current Oncology Plans No current plan information found. Past Plans No past plan information found. Radiation Treatments * No radiation treatments are documented for this patient in [employer]. Treatments may have been administered in another system. Lifetime Dose Tracking * Chemical Lifetime Dose Automatic Entry Manual Entr y Total Air Kerma 6.7 mGy 6.7 mGy 0 mGy Fluoro Time 0.3 Minutes 0.3 Minutes 0 Minutes Resolved Problems Problem Noted Date Diagnosed Date [...] tab. 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 Provider to review [facility] current use of ant icoagulant therapy 01/31/2004 [...]
--- OUTSIDE RECORDS SUMMARY | 2024-02-02 15:46 | XMS_ITS | Referral Summary ---
Author Organization [facility] Address [address] [place] [address] Care Team Providers Care Plaque Maker Name Role Phone Hector Goode MD Unavailable John Cancino MD Unavailable [phone] Jasmin Maradiaga PA-C Primary Care Provid er Jasmin Maradiaga PA-C Unavailable + [phone] Carl Farah MD Unavailable [phone] Hector Goode MD Unavailable Encounters Date Type Department Care Team Description 02/02/2024 12:25 PM ANIMAL STUNNER Anesthesia Event [facility] Per[facility] Services [address] [place] [address] Levar Paul MD 02/02/2024 12:30 PM ANIMAL STUNNER - 02/02/2024 2:30 PM ANIMAL STUNNER Surgery [facility] [address] [place] [address] Rivas Delcid MD CHOLECYSTECTOMY, LAPAROSCOPIC 02/01/2024 12:06 PM ANIMAL STUNNER - Present Hospital Encounter [facility] PACU [address] [place] [phone] eDlroy Hagen MD Steinbrueck, Eric Edward, DO Cholecystitis (Primary Dx); Choledocholithiasis with acute cholecystitis 01/07/2024 Travel 01/07/2024 2:45 PM CDT Office Visit [facility] [address] [place] [address] Gavi Cloud MD Urinary symptom or sign [...] the right eye 2 times daily. 01/03/20 23 Suspended dorzolamide-timol ol (COSOPT) 2-0.5 % ophthalmic solution Place 1 drop into the right eye 2 times daily. 12/27/19 23 Suspended predniSONE (DELTASONE) 5 MG tablet Take 15 tablets by mouth daily 04/09/19 24 024 Discontinue d(Therapy completed (No AVS)) tafluprost (ZIOPTAN) [...] tab. 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 Provider to review technician terminal and repeater current use of ant icoagulant therapy 01/31/2004 [...] 02/19/2012 Pneumococcal 23 valent 01/23/2018,12/19/2006 TD,PF 7+ ([facility]) 07/03/2009,04/10/2000, 993 Zoster vaccine, live 02/26/2007 Social [...] in an abandoned building, in an overnight chcf, or couch-surfing.) Yes 02/02/2024 Are you worried [...] on file Legal Sex Female 2:58 AM ANIMAL STUNNER Gender Identity Not on file Sexual Orientation Not on file Last Filed Vital Signs Vital Sign Reading Time Taken Comments Blood Pressure 121/65 02/02/2024 3:30 PM ANIMAL STUNNER Pulse 71 02/02/2024 3:30 PM ANIMAL STUNNER Temperature 36.1 C (97 F) 02/02/2024 3:19 PM ANIMAL STUNNER Respiratory Rate 13 02/02/2024 3:30 PM ANIMAL STUNNER Oxygen Saturation 100% 02/02/2024 3:30 PM ANIMAL STUNNER Inhaled Oxygen Concentration - - Weight 112.5 kg (248 lb) 02/02/2024 12:06 PM ANIMAL STUNNER Height 162.6 cm (5' 4) 02/02/2024 12:06 PM ANIMAL STUNNER Body Mass Index 42.57 02/02/2024 12:06 PM ANIMAL STUNNER Plan of Treatment Upcoming Encounters Date Type Department Care Team (Late st Contact Info) Description 06/14/2024 1:00 PM CDT Office Visit [facility] [address] 3rd [place] [address] Hector Goode MD [address] [place] [address] [id number] [place] [address] Scheduled Procedures Name Priority Associated Diagnoses Date/Ti ar CHOLECYSTECTOMY, LAPAROSCOPIC Cholecystitis Choledocholithiasis with acute cholecystitis 02/02/2024 12:27 PM ANIMAL STUNNER ENDOSCOPIC RETROGRADE CHOLANGIOPANCREATOGRAPHY, COMPLEX Cholecystitis Choledocholithiasis with acute cholecystitis 02/02/2024 12:27 PM ANIMAL STUNNER ENDOSCOPIC ULTRASOUND, ESOPHAGOSCOPY / UPPER GASTROINTESTINAL TRACT (GI) Cholecystitis Choledocholithiasis with acute cholecystitis 02/02/2024 12:27 PM ANIMAL STUNNER ENDOSCOPIC RETROGRADE CHOLANGIOPANCREATOGRAPHY, COMPLEX Cholecystitis Choledocholithiasis with acute cholecystitis Medical Devices Implanted Type Area Distillery Laborer Device Identifier Shelf Expiration Date Model / Serial / Lot Stent Shahab Abreu (Candler) Gabino 00ert30pf Clso-10-7 - [id number] Implanted:Qty : 1 on 02/02/2024 by Rivas Delcid MD at [facility] Stent N/A: [employer] [id number] 12/01/2026 CLSO-10-7 / / [id number] Procedures * The patient is currently admitted. The information in this section might not be complete until the patient is discharged. Procedure Name Priority Date/Time Associated Diagnosis Comments XR SURGERY ROBBY FLUORO LESS THAN 5 MIN W STILLS Routine 02/02/2024 3:23 PM ANIMAL STUNNER CBC WITH PLATELETS & DIFFERENTIAL Routine 02/02/2024 10:22 AM ANIMAL STUNNER RBC AND PLATELET MORPHOLOGY Routine 02/02/2024 10:22 AM ANIMAL STUNNER CBC WITH PLATELETS AND DIFFERENTIAL Routine 02/02/2024 10:22 AM ANIMAL STUNNER COMPREHENSIVE METABOLIC PANEL Routine 02/02/2024 10:22 AM ANIMAL STUNNER US ABDOMEN LIMITED STAT 02/02/2024 9: 31 AM ANIMAL STUNNER COMPREHENSIVE METABOLIC PANEL Add-On 02/01/2024 2:27 PM ANIMAL STUNNER HEPATIC FUNCTION PANEL Routine 02/01/2024 2:27 PM ANIMAL STUNNER LACTIC ACID WHOLE BLOOD WITH 1X REPEAT IN 2 HR WHEN >2 STAT 02/01/2024 2:27 PM ANIMAL STUNNER EKG 12-LEAD, TRACING ONLY STAT 02/01/2024 1:19 PM ANIMAL STUNNER VA PELVIC EXAMINATION Routine 01/07/2024 5:39 PM CDT Hematuria, unspecified type Genital atrophy of female Vaginal bleeding URINE CULTURE AEROBIC BACTERIAL ([facility]) Routine 01/07/2024 3:21 PM CDT Urinary symptom or sign Hematuria, unspecified type VA COLLECTION VENOUS BLOOD VENIPUNCTURE Routine 01/07/2024 3:08 [...] 5 Min w Stills (02/02/2024 3:23 PM ANIMAL STUNNER) Narrative [facility] - 02/02/2024 3:24 PM ANIMAL STUNNER This exam was marked as non-reportable because it will not be read by a radiologist or a [facility] non-radiologist provider. us Delroy Hagen MD [facility] DIAGNO[facility]ING ORDERABLE S Final Result [facility] * RBC and Platelet Morphology (02/02/2024 10:22 AM ANIMAL STUNNER) RBC Morphology Confirmed RBC Indices 02/02/2024 1:18 PM ANIMAL STUNNER LABORATORY Platelet Assessment Automated Count Confirmed. Platelet morphology is normal. Automated Count Confirmed. Platelet morphology is normal. GILBERT 02/02/2024 1:18 PM ANIMAL STUNNER LABORATORY Blood STRUCTURE OF RIGHT HAND / Unknown Venipuncture / Unknown 02/02/2024 10:22 AM ANIMAL STUNNER 02/02/2024 10:36 AM ANIMAL STUNNER us Toño Dotson DO LAB - BLOOD ORDERABLE S Final Result LABORATORY [facility] [address], [address] [place] [address], [facility] [phone] * (ABNORMAL) CBC with platelets and differential (02/02/2024 10:22 AM ANIMAL STUNNER) [facility] WBC Count 9.0 4.0 - 11.0 10e3/uL 02/02/2024 1:18 PM ANIMAL STUNNER LABORATORY RBC Count 3.70(L) 3.80 - 5.20 10e6/uL 02/02/2024 1:18 PM ANIMAL STUNNER LABORATORY Hemoglobin 12.7 11.7 - 15.7 g/dL 02/02/2024 1:18 PM ANIMAL STUNNER LABORATORY Hematocrit 36.8 35.0 - 47.0 % 02/02/2024 1:18 PM [facility] MCV 100 78 - 100 fL 02/02/2024 1:18 PM [facility] MCH 34.3(H) 26.5 - 33.0 pg 02/02/2024 1:18 PM [facility] MCHC 34.5 31.5 - 36.5 g/dL 02/02/2024 1:18 PM [facility] RDW 13.4 10.0 - 15.0 % 02/02/2024 1:18 PM [facility] Platelet Count 115(L) 150 - 450 10e3/uL 02/02/2024 1:18 PM [facility] % Neutrophils 79 % 02/02/2024 1:18 PM [facility] % Lymphocytes 10 % 02/02/2024 1:18 PM [facility] % Monocytes 8 % 02/02/2024 1:18 PM [facility] % Eosinophils 2 % 02/02/2024 1:18 PM [facility] % Basophils 1 % 02/02/2024 1:18 PM [facility] % Immature Granulocytes 0 % 02/02/2024 1:18 PM ANIMAL STUNNER LABORATORY NRBCs per 100 WBC 0 <1 /100 024 1:18 PM [facility] Absolute Neutrophils 7.1 1.6 - 8.3 10e3/uL 02/02/2024 1:18 PM ANIMAL STUNNER LABORATORY Absolute Lymphocytes 0.9 0.8 - 5.3 10e3/uL 02/02/2024 1:18 PM [facility] Absolute Monocytes 0.7 0.0 - 1.3 10e3/uL 02/02/2024 1:18 PM [facility] Absolute Eosinophils 0.2 0.0 - 0.7 10e3/uL 02/02/2024 1:18 PM [facility] Absolute Basophils 0.1 0.0 - 0.2 10e3/uL 02/02/2024 1:18 PM [facility] Absolute Immature Granulocytes 0.0 <=0.4 10e3/uL 02/02/2024 1:18 PM [facility] Absolute NRBCs 0.0 10e3/uL 02/02/2024 1:18 PM [facility] Blood STRUCTURE OF RIGHT HAND / Unknown Venipuncture / Unknown 02/02/2024 10:22 AM ANIMAL STUNNER 02/02/2024 10:36 AM [facility] Toño Dotson DO LAB - BLOOD ORDERABLE S Final Result LABORATORY [facility] Acute Care Lab [address] floor, [address] [place] [address], [facility] [phone] * (ABNORMAL) Comprehensive metabolic panel (02/02/2024 10:22 AM [facility]) Only the most recent of2 resultswithin the time period is included. Sodium 140 135 - 145 mmol/L 02/02/2024 11:09 AM [facility] Potassium 3.4 3.4 - 5.3 mmol/L 02/02/2024 11:09 AM [facility] Carbon Dioxide (CO2) 28 22 - 29 mmol/L 02/02/2024 11:09 AM [facility] Anion Gap 10 7 - 15 mmol/L 02/02/2024 11:09 AM [facility] Urea Nitrogen 15.6 8.0 - 23.0 mg/dL 02/02/2024 11:09 AM [facility] Creatinine 0.94 0.51 - 0.95 mg/dL 02/02/2024 11:09 AM [facility] GFR Estimate 61 >60 mL/min/1.7 3m2 02/02/2024 11:09 AM [facility] Comment:eGFR calculated usin g 2020 CKD-EPI equation. Calcium 9.2 8.8 - 10.4 mg/dL 02/02/2024 11:09 AM [facility] Comment:Reference intervals for this test were updated on 09/23/2023 to reflect our healthy population more accurately. There may be differences in the flagging of prior results with similar values performed with this method. Those prior results can be interpreted in the context of the updated reference intervals. Chloride 102 98 - 107 mmol/L 02/02/2024 11:09 AM [facility] Glucose 93 70 - 99 mg/dL 02/02/2024 11:09 AM [facility] Alkaline Phosphatase 149 40 - 150 U/L 02/02/2024 11:09 AM [facility] AST 124(H) 0 - 45 U/L 02/02/2024 11:09 AM [facility] ALT 182(H) 0 - 50 U/L 02/02/2024 11:09 AM [facility] Protein Total 5.4(L) 6.4 - 8.3 g/dL 02/02/2024 11:09 AM [facility] Albumin 3.8 3.5 - 5.2 g/dL 02/02/2024 11:09 AM [facility] Bilirubin Total 3.8(H) <=1.2 mg/dL 02/02/2024 11:09 AM [facility] Blood STRUCTURE OF RIGHT HAND / Unknown Venipuncture / Unknown 02/02/2024 10:22 AM ANIMAL STUNNER 02/02/2024 10:36 AM [facility] Toño Dotson DO LAB - BLOOD ORDERABLE S Final Result LABORATORY [facility] Lab [address] 1[address] floor, [address] [place] [address], [facility] [phone] * US Abdomen Limited (02/02/2024 9:31 AM ANIMAL STUNNER) Anatomical Region Laterality Modality Abdomen/Pelvis Ultrasound Impressions 02/02/2024 2:56 PM ANIMAL STUNNER IMPRESSION: Distended gallbladder with gallbladder sludge and stones. Negative sonographic Lo sign. Cholecystitis not excluded. Common duct is mildly distended measuring 8 mm. LAURA OLIVARES MD SYSTEM ID: [id number] Narrative 02/02/2024 2:56 PM ANIMAL STUNNER ULTRASOUND ABDOMEN LIMITED 02/02/2024 9:31 AM CLINICAL [...] 8 mm. LAURA OLIVARES MD SYSTEM ID: [id number] Rivas Delcid MD [facility] US ORDERABLES Final Result * Lactic Acid Whole Blood w/ 1x repeat in 2 hrs when >2 (02/01/2024 2:27 PM ANIMAL STUNNER) Lactic Acid, Initial 1.2 0.7 - 2.0 mmol/L 02/01/2024 2:38 PM ANIMAL STUNNER LABORATORY Blood STRUCTURE OF RIGHT HAND / Unknown Venipuncture / Unknown 02/01/2024 2:27 PM ANIMAL STUNNER 02/01/2024 2:33 PM ANIMAL STUNNER Delroy Hagen MD LAB - BLOOD ORDERABLES Final Res ult LABORATORY [facility] [address] 1[address] floor, [address] [place] [address], [facility] [phone] * (ABNORMAL) Hepatic panel (02/01/2024 2:27 PM ANIMAL STUNNER) Protein Total 5.8(L) 6.4 - 8.3 g/dL 02/01/2024 2:56 PM ANIMAL STUNNER LABORATORY Albumin 4.0 3.5 - 5.2 g/dL 02/01/2024 2:56 PM ANIMAL STUNNER LABORATORY Bilirubin Total 4.2(H) <=1.2 mg/dL 02/01/2024 2:56 PM ANIMAL STUNNER LABORATORY Alkaline Phosphatase 158(H) 40 - 150 U/L 02/01/2024 2:56 PM ANIMAL STUNNER LABORATORY AST 145(H) 0 - 45 U/L 02/01/2024 2:56 PM ANIMAL STUNNER LABORATORY ALT 191(H) 0 - 50 U/L 02/01/2024 2:56 PM ANIMAL STUNNER LABORATORY Bilirubin Direct 3.43(H) 0.00 - 0.30 mg/dL 02/01/2024 2:56 PM ANIMAL STUNNER LABORATORY Blood STRUCTURE OF RIGHT HAND / Unknown Venipuncture / Unknown 02/01/2024 2:27 PM ANIMAL STUNNER 02/01/2024 2:36 PM ANIMAL STUNNER Toño Dotson DO LAB - BLOOD ORDERABLE S Final Result LABORATORY [facility] [address] 1[address] floor, [address] [place] [address], [facility] [phone] * EKG 12-lead, tracing only (02/01/2024 1:19 PM ANIMAL STUNNER) Systolic Blood Pressure mmHg RADIOLOGY RESULTS Diastolic Blood Pressure mmHg RADIOLOGY RESULTS Ventricular Rate 69 BPM RAD IOLOGY RESULTS Atrial Rate 69 BPM RADIOLOG Y RESULTS VA Interval 146 ms RADIOLOG Y RESULTS QRS Duration 140 ms RADIOLO GY RESULTS QT 448 ms RADIOLOGY RESULTS QTc 480 ms RADIOLOGY RESULTS P [place] 62 degrees RADIOLOGY RESULTS R AXIS -41 degrees RADIOLOGY RESULTS T [place] 95 degrees RADIOLOGY RESULTS Interpretation ECG Sinus rhythm Left axis deviation Left bundle branch block Abnormal ECG When compared with ECG of 01-Jan-2021 21:45, No significant change was found Confirmed by MD BERNARDA, DEMOS ([id number]) on 02/02/2024 11:39:18 AM RADIOLOGY RESULTS 02/01/2024 1:19 PM ANIMAL STUNNER 02/02/2024 11:39 AM ANIMAL STUNNER us Toño Dotson DO ECG ORDERABLES Edite d Result - Final RADIOLOGY RESULTS * URINE CULTURE AEROBIC BACTERIAL ([facility]) (01/07/2024 3:21 PM CDT) Urine Voided Culture SEE NOTE [facility] Comment: CULTURE, URINE, ROUTINE Micro Number: [id number] Test Status: Final Specimen Source: Urine Specimen Quality: Adequate Result: No Growth Urine 01/07/2024 3:21 PM CDT 01/08/2024 6:22 AM CDT Narrative Resulting Agency Comment Performing Organization Information: [facility] [address] [place] [address] Serafin Tse Gavi Cloud MD LAB - NON-BEAKER NON-BLOOD F inal Result Performing Organization Address City/[facility] Co de Phone Number [facility] [address] [phone] * (ABNORMAL) URINALYSIS, ROUTINE ([facility]) (01/07/2024) Color Urine Yellow [facility] Appearance Urine Slightly Cloudy(A) [facility] Glucose Urine Neg mg/dL [facility] Bilirubin Urine Neg [facility] Ketones Urine Neg mg/dL [facility] Specific [place] Urine 1.020 [facility] Blood Urine Large(A) [...] inal Result Performing Organization Address [facility] Co de Phone Number [facility] [address] [place] [address] [address] [place] [address] * (ABNORMAL) HEMOGRAM PLATELET DIFF ([facility]) [...] Final Result Performing Organization Address [facility] Co de Phone Number [facility] [address] [place] [address] [place] [phone] * (ABNORMAL) Comprehensive Metobolic Panel ([facility]) [...] 01/07/2024 us Gavi Cloud MD LAB - NON-Epiphyte BLOOD LABS Final Result Performing Organization Address City/[facility]/ZIP Co de Phone Number [facility] [address] [place] [address] [address] [place] [address] * Lipid Panel ([facility]) (09/09/2023) Cholesterol 172 0 - 199 mg/dL [facility] Triglycerides 77 0 - 149 mg/dL [facility] HDL Cholesterol 82 40 - 150 mg/dL [facility] LDL-C 75 mg/dL [facility] Cholesterol/HDL Ratio 2 0 - 5 [facility] Blood 09/09/2023 us Lewis Macias MD LAB - NON-Epiphyte BLOO D LABS Final Result [facility] [address] [place] [address], [facility] * MA Screening Bilateral w/ Kevin (05/26/2023) MAMMOGRAM Anatomical Region Laterality Modality Breast Bilateral Other Narrative 05/26/2023 [id number] [facility], [address] [place] [address] [place] : 1945 Req Phys: Jasmin Maradiaga PA-C Patient name: GRISELDA LAI Clinic: [facility] Dept No: [id number] MAMMOGRAM SCREENING KEVIN BILATERAL Exam Date: 05/26/2023 EXAM: MAMMOGRAM SCREENING KEVIN BILATERAL LOCATION: [facility] [place] DATE: 05/26/2023 INDICATION: Asymptomatic. Screening Mammogram. COMPARISON: [...] health insurance. Recommendations are based on the [employer] Appropriateness Criteria. Patients with a BI-RADS category of 0 should follow the recommendations for further evaluation before considering supplemental screening. Dictated By: ROBERTO ELLISON M.D. Password protected electronic signature by: GEOVANNA Trans: AUBREY Date Of Trans: 05/26/2023 1:38:00PM Date report approved and signed by interpreting physician: 05/26/2023 1:36:00PM Page 1 of 1 us Patient Reported IMG MAMMOGRAPHY ORDERABLES Orquidea l Result * Dexa hip/pelvis/spine* (12/21/2020) Anatomical Region Laterality Modality Dexa Other Narrative 12/21/2020 [id number] [facility], [address] [place] [address] [place] : 1945 Req Phys: Josiah Stockton MD Clinic: [facility] Patient name: [facility] Dept No: [id number] BONE DENSITY Exam Date: 12/21/2020 EXAM: BONE MINERAL DENSITY (DEXA) EXAM LOCATION: [facility] DATE/TIME: 12/21/2020 3:46 PM INDICATION: Screening for osteoporosis. COMPARISON: Most recent examination 10/05/2001. TECHNIQUE: The study was performed using DEXA in the AP lumbar spine and AP femur using a [employer] Discovery C. FINDINGS: Using DEXA, the results [...] CDT) TSH 2.63 0.40 - 4.50 mIU/L [facility] Blood specimen (specimen) 05/24/2020 5:28 PM CDT 05/26/2020 3:08 AM CDT Narrative Resulting Agency Comment Performing Organization Information: [facility] [address] [place] [address] Serafin Tse M.D. us Gavi Cloud MD LAB - BLOOD ORDERABLES Final Result [facility] [address] [place], [place] [id number] [place] [address] * COLONOSCOPY (08/06/2016 7:10 AM CDT) COLONOSCOPY [facility] Patient Name: Griselda Lai Procedure Date: 08/06/2016 7:10 AM Date of : 1945 Admit Type: Outpatient Age: 71 Gender: Female Attending MD: Beatriz Velasquez MD Total Sedation Time: 21 minutes of continuous bedside 1:1. Instrument Name: 131 Procedure: Colonoscopy Indications: Screening for colorectal malignant neoplasm Providers: Beatriz Velasquez MD (Doctor) Referring MD: Rsolyn Sandoval MD (Referring MD) Medicines: Fentanyl 200 [...] The [employer] Peds Colonoscope Model #PCF-H190L, [place]#131, SN#[id number] was introduced through the anus and advanced [...] perianal irritation. Procedure Code(s): --- Professional --- 68851, Colonoscopy, flexible; diagnostic, including collection of specimen(s) by brushing or washing, when performed (separate procedure) Diagnosis Code(s): --- Professional --- Z12.11, Encounter for screening for malignant neoplasm of colon R21, Rash and other nonspecific skin eruption CPT copyright 2016 [employer]. All rights reserved. The codes documented in this report are preliminary and upon survey research analyst review may be revised to meet current [...] Recently Relevant to Health Maintenance Insurance MEDICARE [facility] OUT OF STATE MEDICARE NONE (Work) [id number] [place] [id number] [place] [id number] Advance Directives For more information, please contact: [phone] * Full Code (Latest Code Status on File) Date Activated Date Inactivated Comments 02/01/2024 1:10 PM All basic and advanced life-sustaining interventions are performed as appropriate Question Answer Comments Code status determined by: Discussion with cristele nt/ legal decision maker Care Teams Plaque Maker Relationship Specialty Start Date End Date Jasmin Maradiaga PA-C [address] , [facility] [address] [place] [address] PCP - General Family Medicine 03/16/21 Hector Goode MD [address] [place] [address] Neurology 05/01/17 John Cancino MD [address] [place] [address] [id number] Family Medicine - Sports Medicine 07/30/17 Jasmin Maradiaga PA-C [address] , [place] [address] [place] [address] Assigned PCP 8/13/22 Carl Farah MD [address] [place] [phone] Assigned Heart and Vascular Provider 05/18/22 Hector Goode MD [address] [facility] [id number] [address] Assigned Neuroscience Provider 07/01/23
--- OUTSIDE RECORDS SUMMARY | 2024-02-02 15:46 | XMS_ITS | Encounter Summary ---
Author Organization [place] Address [facility] [place] [address] Care Team Providers Care Trolley Operator Name Role Phone Hector Goode MD Unavailable John Cancino MD Unavailable Jasmin Maradiaga PA-C Primary Care Provid er Jasmin Maradiaga PA-C Unavailable + [phone] Carl Farah MD Unavailable [phone] Hector Goode MD Unavailable Reason for Visit * Auth/Cert Specialty Diagnoses / Procedures Referred By Jeremiah t Referred To Contact Med Surg Diagnoses Acute cholecystitis, jaundice, slight hypoxia [facility] Orthopedics [address] [facility] [place] [id number] Phone: tel: fax: Referral ID Status Reason Start Date Expiration Date Visits Re quested Visits Authorized [id number] 1 1 Encounter Details Date Type Department Care Team (Late st Contact Info) Description 02/02/2024 12:30 PM ELECTRONICS HARDWARE DESIGN ENGINEER - 02/02/2024 2:30 PM ELECTRONICS HARDWARE DESIGN ENGINEER Surgery [facility] PeriOP Services [address], [address] [place] [id number] Rivas Delcid MD [address] [facility], [address] [place] [address] CHOLECYSTECTOMY, LAPAROSCOPIC Social History Tobacco Use Types Packs/Day Years [...] Date Recorded Do you have housing? (Lou valdes is defined as stable permanent housing and does not include staying ouside in a car, in a tent, in an abandoned building, in an overnight intermediate, or couch-surfing.) Yes 02/02/2024 Are you worried [...] on file Legal Sex Female 2:58 AM ELECTRONICS HARDWARE DESIGN ENGINEER Gender Identity Not on file Sexual Orientation Not on file documented as of this encounter Last Filed Vital Signs Vital Sign Reading Time Taken Comments Blood Pressure 120/58 02/02/2024 12:06 PM ELECTRONICS HARDWARE DESIGN ENGINEER Pulse 82 02/02/2024 12:06 PM ELECTRONICS HARDWARE DESIGN ENGINEER Temperature 36.2 C (97.1 F) 02/02/2024 12:06 PM ELECTRONICS HARDWARE DESIGN ENGINEER Respiratory Rate 16 02/02/2024 12:06 PM ELECTRONICS HARDWARE DESIGN ENGINEER Oxygen Saturation 94% 02/02/2024 12:06 PM ELECTRONICS HARDWARE DESIGN ENGINEER Inhaled Oxygen Concentration - - Weight 112.5 kg (248 lb) 02/02/2024 12:06 PM ELECTRONICS HARDWARE DESIGN ENGINEER Height 162.6 cm (5' 4) 02/02/2024 12:06 PM ELECTRONICS HARDWARE DESIGN ENGINEER Body Mass Index 42.57 02/02/2024 12:06 PM ELECTRONICS HARDWARE DESIGN ENGINEER documented in this encounter Progress Notes * Carlito Rees DO - 02/02/2024 3:32 PM CST Hospitalist update note Attempted to see the patient but down in OR this afternoon. Continue plan as outlined in previous notes. Will assess patient tomorrow AM Carlito Rees DO Hospitalist TRONICS HARDWARE DESIGN ENGINEER * Kina Dawson RN - 02/02/2024 10:30 AM CST Report given to Pre-Op RN. CHG wipes done, patient voided in BR. OR staff to come package pick up patient around 11:10am. Continue plan of Care. TRONICS HARDWARE DESIGN ENGINEER * Jono Caal MD - 02/01/2024 7:15 PM CST General surgery chart note Patient presents to [facility] from outside hospital given complicated gallstone disease with jaundice likely secondary to choledocholithiasis. GI has evaluated and plans for EUS/ERCP in the morning. Will follow along and offer cholecystectomy when appropriate. TRONICS HARDWARE DESIGN ENGINEER * Mariama Cain MD - 02/01/2024 9:49 AM CST Transfer Type: [facility] Transfer Triage Note Date of call: 02/01/24 Time of call: 9:49 AM Current Patient Location: [facility], Dr. Pérez Vitals: BP:163/96, afebrile HR: 90s O2 Sats: 80s on RA Diagnosis: Acute cholecystitis, jaundice, slight hypoxia Reason for requested transfer: Further diagnostic work up, management, and consultation for specialized care Griselda Lai is a 79 year old F w/ PMHx of ischemic cardiomyopathy, GERD, Gasioscapulohumeral muscular dystrophy, chronic myeloid leukemia in remission, MDD, Polymyalgia rheumatica on chronic steroids who presented to OSH ED on 01/30 w/ N/V and unable to tolerate PO starting 3days ago, some diarrhea nonbloody, no fevers or chills, mild diffuse abdominal pain. Reported scleral icterus on exam. Exam no rebounding or guarding or concern for WBC wnl, Hgb 12.5, plt 94 (unclear if chronic), normal coags, CMP wnl excpet Bili 4.6 (3.6 direct),150 AST Alt 183, ammonia wnl, lipase 89, lactate wnl CT showed: Cholelithiasis w/ sludge in gallbadder and bile ducts. Also nonobstucting renal stone which was a recent known finding (hx of bladder cancer). Given fluids and zofran. Started on Zosyn Started developing hypoxia in mid 80s, started on NC. Denied SOB. EKG sinus rhythm w/ LBBB (chart review w/ prior EKG 02/2023 w/ LBBB). Troponin reported as pending. Portable CXR reported as no grossabnormalities. Reports needing transfer for ERCP. Care everywhere has been updated and reviewed: Yes Necessary images have been sent through PACS: Reported will push to PACS Transfer accepted: Yes Stability of Patient: Patient is vitally stable, with no critical labs, and will likely remain stable throughout the transfer process Level of Care Needed: Med Surg Telemetry Needed: Med (Remote) Telemetry Arrival Location: [facility] Additional: Request images pushed to PACS before transfer. Provider to reach out if pending troponin results abnormally. Mariama Cain MD TRONICS HARDWARE DESIGN ENGINEER TRONICS HARDWARE DESIGN ENGINEER documented in this encounter H&P Notes * Toño Dotson, DO - 02/01/2024 12:23 PM CST [facility] History and Physical - Hospitalist Service Date of Admission: 02/01/2024 Assessment & Plan Griselda Lai is a 79 year old female admitted on 02/01/2024 after presenting with nausea/vomiting and diffuse abdominal pain and found to have hyperbilirubinemia and scleral icterus. CT with cholelithiasis with sludge in the gallblader and bowel ducts. She was started on zosyn. After IVF, she did desaturate to 80's Nausea, vomiting, and abdominal pain likely from acute cholecystitis and possible choledocholithiasis Hyperbilirubinemia with jaundice Nausea and vomiting with new abdominal pain concerning for obstructive jaundice CT scan at the outside hospital reveals subtle cholelithiasis with sludge also suggested in the gallbladder and cbd, gall bladder is mildly dilated with signs of wall thickening. Acute cholecystitis is suspected. Given zosyn Plan - admit to IP - npo - GI and surgical consultations - zosyn IV - pain control and antiemetics - obtain EKG to assess qtc for baseline - she reports she only takes aspirin 81 mg daily which we will hold Hypoxemia, resolved History of restrictive lung disease and asthma Follow with OP Pulmonary Dr. Ventura Became hypoxemic at the OSH on 1 liter, records indicate difficulty with obtaining a good reading of the pulse oximetry Chest xr was negative at her facility for acute issues Her muscular dystrophy is thought to contribute to her sob and restrictive lung disease Given activity intolerance, may consider ambulatory testing but suspect she may chronically desaturate with activity Oxygen 95% at rest on arrival to this hospital Plan - monitor with prn oxygen - nebulizers prn - would test her oxygen with ambulatory Polymyalgia rheumatica Plan - resume home prednisone dose of 2 mg daily - would not stress dose steroids given that per her report, her last dose of > 10 mg was 6 weeksago, low risk procedure even with lab dimas History of muscular dystrophy Probably contributes to restrictive lung disease Plan - noted Central sleep apnea - she will use home cpap LBBB Chronic, noted to be there in 2008 per [facility] Plan - repeat EKG forr qtc GERD -Resume home meds once verified by pharmacy Obesity -Increase in all cause mortality CML -Resume home Gleevec once verified Bladder cancer Nonobstructing kidney stone Plan - monitor HTN Plan - resume home coreg, hold the losartan and spironolactone given the possibility of surgery in the AM - hold lasix Diet: N.p.o. DVT Prophylaxis: Low Risk/Ambulatory with no VTE prophylaxis indicated Winter Catheter: Not present Lines: None Cardiac Monitoring: None Code Status: Full code Clinically Significant Risk Factors Present on Admission # Drug Induced Platelet Defect: home medication list includes an antiplatelet medication # Hypertension: Home medication list includes antihypertensive(s) # Heart failure, NOS: heart failure noted on the problem list and last echo with EF 40-50% # Asthma: noted on problem list Disposition Plan Medically Ready for Discharge: Anticipated in 2-4 Days Toño Dotson DO Hospitalist Service [facility] Securely message with [employer] (more info) Text page via [employer] Paging/Directory Chief Complaint Abdominal pain nausea and vomiting History is obtained from the patient History of Present Illness Griselda Lai is a 79 year old female with past medical history of muscular dystrophy, restrictive lung disease, polymyalgia rheumatica on chronic steroid, history of bladder cancer, CML on Gleevec, and asthma who presented initially to an outside hospital with nausea, vomiting, diarrhea and abdominal pain that started the Friday prior to admission. This initially occurred after eating thisinitially occurred after eating out for dinner. Yesterday on Friday the pain had improved and shewas feeling little bit better however the pain returned last night which made her seek medical attention. She denies any fever or chills. Pain is mostly in the right upper quadrant She presented to her local hospital in [facility]. Initial labs indicated white cells of 7.56 and hemoglobin of 12.5. Her platelets were low at 94. She was found to have a sodium of 137, potassium 3.8, chloride 101, carbon dioxide 28, anion gap of 8, BUN 14, creatinine 0.9. Her lactate was 1.3. Calcium 9.3. However her total bilirubin was 4.6. Direct bilirubin 3.6 AST at 150, ALT 183. Lipase negative at 89. Troponin 0.05 and slightly elevated. Ammonia less than 9 and low. She underwent a CT scan with the impression: Subtle cholelithiasis with sludge also suggested in the gallbladder and common bile duct. Gallbladder is mildly dilated with signs of wall thickening. Acute cholecystitis is suspected. Additional findings includes a small nonobstructive 2 mm stone in the distal left ureter. And multiple large calcified uterine fibroids The patient ultimately transferred to this hospital for ERCP consideration. She was given IV fluidsand IV Zosyn. She was transiently hypoxemic down to 82 to 83% per the ED notes but it was difficultto get a good reading on the pulse oximeter. The patient notes that she has been feeling progressive shortness of breath and her shipping and receiving supervisor notes that she has restrictive lung disease probably from underlying muscular dystrophy. She does noton any home oxygen. She uses CPAP at night. The patient also notes that she has been decreasing her prednisone from 20 mg down to her current dose of 2 mg. She tends to decrease her steroid by 2 mg of prednisone's every 2 weeks per her report.. 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 There are occasional reports of arrhythmia and atrial standstill. The reports say that although there is some question if it is associated with muscular dystrophy, most of the patients have an incidental cardiomyopathy that is unrelated the FSH muscular dystrophy. However, there are reports of respiratory muscle weakness with FSH muscular dystro Obesity (BMI 35.0-39.9 without comorbidity) PMR (polymyalgia rheumatica) (H) no known history of temporal arteritis/giant cell arteritis Rosacea 08/14/2000 Sarcoidosis Sleep apnea DPAP-central and obst. Dr Bautista Pulm Subdural hemorrhage (H) 2006 while on coumadin Unspecified glaucoma(365.9) 01/25/2005 resolved Unspecified transient cerebral ischemia 04/25/2002 Vertebral artery narrowing -keep BP up a little Urinary bladder cancer (H) Tx with surg resection Ventral hernia L lateral abd wall--may be associated with FSH muscular dystrophy Past Surgical History Past Surgical History: Procedure Laterality Date ANGIOGRAM 1995 normal coronaries, EF 50-55% BLEPHAROPLASTY BILATERAL 02/24/2012 Procedure: BLEPHAROPLASTY BILATERAL; BILATERAL UPPER LID BLEPHAROPLASTY; Surgeon: Estrada Moore MD; Location: [facility] COLONOSCOPY N/A 08/06/2016 Procedure: COLONOSCOPY; COLONOSCOPY ; Surgeon: Beatriz Velasquez MD; Location: GI CYSTOSCOPY 12/13 bladder cancer (multiple surveillance) DEBRIDE MASTOID CAVITY,SIMPLE x 3 KNEE SURGERY R arthroscopic REMOVAL OF BREAST LESION benign, age 17 ZZC IMPLANT COCHLEAR DEVICE 2008 [facility] ZZHC COLONOSCOPY THRU STOMA, DIAGNOSTIC 04/2000 normal ZZHC COLONOSCOPY THRU STOMA, DIAGNOSTIC 01/2007 Dr Lizama Prior to Admission Medications Prior to Admission Medications Prescriptions Last Dose Informant Patient Reported? Taking? ASMANEX, 60 METERED DOSES, 220 MCG/INH inhaler Yes No ASPIRIN 81 MG PO TBEC Yes No Si TABLET DAILY CENTRUM SILVER PO TABS Yes No Si TABLET DAILY FISH OIL 1000 MG PO CAPS Yes No Si CAPSULES DAILY WITH A MEAL GLEEVEC 400 MG OR TABS Yes No Si TABLET DAILY Dr. Bustillo VITAMIN D, CHOLECALCIFEROL, PO Yes No Sig: Take 1,000 Units by mouth daily betaxolol (BETOPTIC) 0.5 % ophthalmic solution Yes No Sig: INSTILL 1 DROP INTO RIGHT EYE TWICE A DAY brimonidine (ALPHAGAN) 0.2 % ophthalmic solution Yes No Sig: INSTILL 1 DROP INTO RIGHT EYE TWICE A DAY carvedilol (COREG) 12.5 MG tablet No No Sig: Take 1 tablet (12.5 mg) by mouth 2 times daily (with meals) dorzolamide-timolol (COSOPT) 2-0.5 % ophthalmic solution Yes No Sig: INSTILL 1 DROP INTO RIGHT EYE TWICE A DAY furosemide (LASIX) 20 MG tablet No No Sig: Take 1 tablet (20 mg) by mouth daily Plus 1 additional pill prn edema/shortness of breath, need appointment for further refill irbesartan (AVAPRO) 75 MG tablet No No Sig: Take 1 tablet (75 mg) by mouth daily omeprazole (PRILOSEC) [address] capsule No No Sig: Take 1 capsule (40 mg) by mouth daily as needed (heartburn) potassium chloride prabhu ER (KLOR-CON M10) 10 MEQ CR tablet No No Sig: Take 1 tablet (10 mEq) by mouth daily predniSONE (DELTASONE) 1 MG tablet Yes No Sig: Take 4 tablets (4 mg) by mouth daily. rosuvastatin (CRESTOR) 5 MG tablet No No Sig: Take 1 tablet (5 mg) by mouth daily sertraline (ZOLOFT) 50 MG tablet No No Sig: Take 1.5 tablets (75 mg) by mouth daily spironolactone (ALDACTONE) 25 MG tablet No No Sig: Take 1 tablet (25 mg) by mouth every morning tafluprost (ZIOPTAN) 0.0015 % SOLN ophthalmic solution Yes No Sig: Place 1 drop into the right eye at bedtime tocilizumab (ACTEMRA) 80 MG/4ML Yes No Sig: Inject into the vein every 28 days Facility-Administered Medications: None Review of Systems The 10 point Review of Systems is negative other than noted in the HPI or here. Social History I have reviewed this patient's social history and updated it with pertinent information if needed. Social History Tobacco Use Smoking status: Never Passive exposure: Never Smokeless tobacco: Never Substance Use Topics Alcohol use: No Alcohol/week: 0.0 standard drinks of alcohol Drug use: No Family History I have reviewed this patient's family history and updated it with pertinent information if needed. Family History Problem Relation Age of Onset Arthritis Mother Cerebrovascular Disease Mother Brain anuerysm- Arthritis Father alive Heart Disease Father bypass-alive Lipids Father hyperlipidemia-alive Deep Vein Thrombosis Maternal Grandmother No Known Problems Other Prostate Cancer No family hx of Allergies Allergies Allergen Reactions Cortisone Cortisone shots Sulfa Antibiotics Physical Exam Vital Signs: Weight: 0 lbs 0 oz Constitutional: awake, alert, cooperative, no apparent distress, and appears stated age. Obese and slightly jaundiced Eyes: Lids and lashes normal, pupils equal, round and reactive to light, extra ocular muscles intact, sclera clear, conjunctiva normal ENT: Normocephalic, without obvious abnormality, atraumatic, sinuses nontender on palpation, external ears without lesions, oral pharynx with moist mucous membranes, tonsils without erythema or exudates, gums normal and good dentition. Respiratory: Clear to auscultation bilaterally. Work of breathing within normal limits. Not on oxygen with a saturation 95% Cardiovascular: Normal apical impulse, regular rate and rhythm, normal S1 and S2, no S3 or S4, and no murmur noted GI: Soft, tender diffusely but mostly apparent in the right upper quadrant. No rebound but mild guarding in the right upper quadrant. Bowel sounds are hyperactive but normal. Wally's positive Medical Decision Making 80 MINUTES SPENT BY ME on the date of service doing chart review, history, exam, documentation & further activities per the note. Data Imaging results reviewed over the past 24 hrs: No results found for this or any previous visit (from the past 24 hours). TRONICS HARDWARE DESIGN ENGINEER TRONICS HARDWARE DESIGN ENGINEER TRONICS HARDWARE DESIGN ENGINEER TRONICS HARDWARE DESIGN ENGINEER documented in this encounter Consult Notes * Rivas Delcid MD - 02/02/2024 10:34 AM CSTAssociated Order(s): SURGERY GENERAL IP CONSULT [facility] General Surgery Consultation Griselda Lai Date of : 1945 Age: [age] year old Date of Admission: 02/01/2024 Date of Consult: 02/02/2024 Assessment and Plan: Griselda Lai is a 79 year old female who was transferred from [facility] for acute cholecystitis with obstructive choledocholithiasis. She has mildly elevated LFTs with hyperbilirubinemia of Tbili 4.2 and direct 3.43. She had a CT completed at the OSH that per report showed cholelithiasis. I was not able to personally review this but on repeat US imaging here, there was evidence of dilated common duct with cholelithiasis. PLAN: We will plan for a combined case with Dr. Barba, lap cholecystectomy with ERCP. Pathology and imaging were reviewed with the patient and her son at bedside. Surgery, perioperative course, risks and benefits were all discussed and patient is electing to proceed with the stated procedure. Rivas Delcid MD Requesting Physician: Toño Dotson DO Chief Complaint: Abdominal pain, hyperbilirubinemia History of Present Illness: Griselda Lai is a 79 year old female who was seen in consultation at the request of Dr. Pérez who presented to [facility] for abdominal pain, nausea, and vomiting. She reports she had not been feeling well for a few days with waxing and waning pain but it got significantly worse yesterdayafter eating. Workup in [place] showed elevated liver enzymes, with hyperbilirubinemia and CT scan showing cholelithiasis with possible cholecystitis. She was transferred here for higher level of cares. She reports she feeling much better. Her pain is controlled. She denies any nausea or vomiting. Physical Exam: Blood pressure 102/58, pulse 85, temperature 98.3 ??F (36.8 ??C), temperature source Oral, resp. rate 16, height (P) 1.626 m (5' 4), weight (P) 108.9 kg (240 lb), SpO2 93%, not currently . 0 lbs 0 oz General: Vital signs reviewed, in no apparent distress Eyes: Anicteric HENT: Normocephalic, atraumatic, trachea midline Respiratory: Breathing nonlabored Cardiovascular: Regular rate and rhythm GI: Abdomen soft, obese, nondistended, non tender to palpation throughout. Musculoskeletal: No gross deformities Neurologic: Grossly nonfocal exam Psychiatric: Normal mood, affect and insight Integumentary: Warm and dry Past Medical History: Past Medical History: Diagnosis Date Cardiomyopathy (H) idiopathic Chronic myeloid leukemia in remission (H) 04/25/2002 Dr Bustillo, on gleevec Chronic restrictive lung disease possibly related to muscular dystrophy Congestive heart failure, unspecified Depressive disorder, not elsewhere classified 10/04/2002 MCCLAIN (dyspnea on exertion) Fatty liver noted on CT scan Hyperlipidemia Irritable bowel syndrome LBBB (left bundle branch block) supervisor intermediates (current) use of anticoagulants 01/31/2004 off coumadin due to SDH Muscular dystrophy, 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 There are occasional reports of arrhythmia and atrial standstill. The reports say that although there is some question if it is associated with muscular dystrophy, most of the patients have an incidental cardiomyopathy that is unrelated the FSH muscular dystrophy. However, there are reports of respiratory muscle weakness with FSH muscular dystro Obesity (BMI 35.0-39.9 without comorbidity) PMR (polymyalgia rheumatica) (H) no known history of temporal arteritis/giant cell arteritis Rosacea 08/14/2000 Sarcoidosis Sleep apnea DPAP-central and obst. Dr Bautista Pulm Subdural hemorrhage (H) 2006 while on coumadin Unspecified glaucoma(365.9) 01/25/2005 resolved Unspecified transient cerebral ischemia 04/25/2002 Vertebral artery narrowing -keep BP up a little Urinary bladder cancer (H) Tx with surg resection Ventral hernia L lateral abd wall--may be associated with FSH muscular dystrophy Past Surgical History: Past Surgical History: Procedure Laterality Date ANGIOGRAM 1995 normal coronaries, EF 50-55% BLEPHAROPLASTY BILATERAL 02/24/2012 Procedure: BLEPHAROPLASTY BILATERAL; BILATERAL UPPER LID BLEPHAROPLASTY; Surgeon: Estrada Moore MD; Location: [facility] COLONOSCOPY N/A 08/06/2016 Procedure: COLONOSCOPY; COLONOSCOPY ; Surgeon: Beatriz Velasquez MD; Location: GI CYSTOSCOPY 12/13 bladder cancer (multiple surveillance) DEBRIDE MASTOID CAVITY,SIMPLE x 3 KNEE SURGERY R arthroscopic REMOVAL OF BREAST LESION benign, age 17 ZZC IMPLANT COCHLEAR DEVICE 2008 [facility] ZZHC COLONOSCOPY THRU STOMA, DIAGNOSTIC 04/2000 normal ZZHC COLONOSCOPY THRU STOMA, DIAGNOSTIC 01/2007 Dr Lizama Current Medications: Current Facility-Administered Medications Medication Dose Route Frequency Provider Last Rate Last Admin [Held by provider] aspirin EC tablet 81 mg 81 mg Oral Daily Toño Dotson DO betaxolol (BETOPTIC) 0.5 % ophthalmic solution 1 drop 1 drop Right Eye BID Toño Dotson, DO carvedilol (COREG) tablet 12.5 mg 12.5 mg Oral BID w/meals Toño Dotson, 12.5 mg at 02/02/24 1000 dorzolamide-timolol (COSOPT) ophthalmic solution 1 drop 1 drop Right Eye BID Toño Dotson, 1 drop at 02/02/24 0956 [Held by provider] furosemide (LASIX) tablet 20 mg 20 mg Oral Daily Toño Dotson, imatinib (GLEEVEC) tablet 400 mg 400 mg Oral Daily Toño Dotson, [Held by provider] irbesartan (AVAPRO) tablet 75 mg 75 mg Oral Daily Toño Dotson, latanoprost (XALATAN) 0.005 % ophthalmic solution 1 drop 1 drop Right Eye At Bedtime Toño Dotson DO mometasone (ASMANEX TWISTHALER) 220 MCG/ACT inhaler 1 puff 1 puff Inhalation QPM Toño Dotson DO 1 puff at 02/01/24 2020 piperacillin-tazobactam (ZOSYN) 3.375 g vial to attach to NS 100 mL bag 3.375 g Intravenous Q6H Toño Dotson, DO 3.375 g at 02/02/24 0603 predniSONE (DELTASONE) tablet 2 mg 2 mg Oral Daily Toño Dotson, DO 2 mg at 02/02/24 0955 rosuvastatin (CRESTOR) tablet 5 mg 5 mg Oral Daily Toño Dotson, DO 5 mg at 02/02/24 0955 sertraline (ZOLOFT) tablet 75 mg 75 mg Oral Daily Toño Dotson, 75 mg at 02/02/24 0955 sodium chloride (PF) 0.9% PF flush 3 mL 3 mL Intracatheter Q8H Toño Dotson, DO 3 mL at104/03/23 0603 [Held by provider] spironolactone (ALDACTONE) tablet 25 mg 25 mg Oral QAM Toño Dotson DO Current Facility-Administered Medications Medication Dose Route Frequency Provider Last Rate Last Admin acetaminophen (TYLENOL) tablet 650 mg 650 mg Oral Q4H PRN Toño Dotson DO Or acetaminophen (TYLENOL) Suppository 650 mg 650 mg Rectal Q4H PRN Toño Dotson DO calcium carbonate (TUMS) chewable tablet 1,000 mg 1,000 mg Oral 4x Daily PRN Toño Dotson DO HYDROmorphone (DILAUDID) injection 0.2 mg 0.2 mg Intravenous Q2H PRN Toño Dotson DO 0.2 mg at 02/01/24 1355 HYDROmorphone (DILAUDID) injection 0.4 mg 0.4 mg Intravenous Q2H PRN Toño Dotson, 0.4 mg at 02/01/24 1654 lidocaine (LMX4) cream Topical Q1H PRN Toño Dotson DO lidocaine 1 % 0.1-1 mL 0.1-1 mL Other Q1H PRN Toño Dotson DO naloxone (NARCAN) injection 0.2 mg 0.2 mg Intravenous Q2 Min PRN Delroy Hagen MD Or naloxone (NARCAN) injection 0.4 mg 0.4 mg Intravenous Q2 Min PRN Delroy Hagen MD Or naloxone (NARCAN) injection 0.2 mg 0.2 mg Intramuscular Q2 Min PRN Delroy Hagen MD Or naloxone (NARCAN) injection 0.4 mg 0.4 mg Intramuscular Q2 Min PRN Delroy Hagen MD ondansetron (ZOFRAN) injection 4 mg 4 mg Intravenous Q6H PRN Toño Dotson, 4 mg at 02/01/24 1653 Or ondansetron (ZOFRAN ODT) ODT tab 4 mg 4 mg Oral Q6H PRN Toño Dotson DO oxyCODONE (ROXICODONE) tablet 10 mg 10 mg Oral Q4H PRN Toño Dotson DO oxyCODONE (ROXICODONE) tablet 5 mg 5 mg Oral Q4H PRN Toño Dotson DO pantoprazole (PROTONIX) EC tablet 40 mg 40 mg Oral Daily PRN Toño Dotson DO polyethylene glycol (MIRALAX) Packet 17 g 17 g Oral BID PRN Toño Dotson DO senna-docusate (SENOKOT-S/PERICOLACE) 8.6-50 MG per tablet 1 tablet 1 tablet Oral BID PRN Toño Dotson DO Or senna-docusate (SENOKOT-S/PERICOLACE) 8.6-50 MG per tablet 2 tablet 2 tablet Oral BID PRN Toño Dotson DO sodium chloride (PF) 0.9% PF flush 3 mL 3 mL Intracatheter q1 min prn Toño Dotson DO Home Medications: Prior to Admission medications Medication Sig Last Dose Taking? Auth Provider Custodial End Date aspirin 81 MG EC tablet Take 81 mg by mouth daily. 01/31/2024 Morning Yes Unknown, Entered By History betaxolol (BETOPTIC) 0.5 % ophthalmic solution Place 1 drop into the right eye 2 times daily. 01/31/2024 Evening Yes Reported, Patient carvedilol (COREG) 12.5 MG tablet Take 1 tablet (12.5 mg) by mouth 2 times daily (with meals) 01/31/2024 Evening Yes Carl Farah MD Yes CENTRUM SILVER PO TABS Take 1 tablet by mouth daily. 01/31/2024 Morning Yes Reported, Patient dorzolamide-timolol (COSOPT) 2-0.5 % ophthalmic solution Place 1 drop into the right eye 2 times daily. 01/31/2024 Evening Yes Reported, Patient fish oil-omega-3 fatty acids 1000 MG capsule Take 2 g by mouth daily. Past Week Yes Unknown, Entered By History furosemide (LASIX) 20 MG tablet Take 1 tablet (20 mg) by mouth daily Plus 1 additional pill prn edema/shortness of breath, need appointment for further refill 01/31/2024 Morning Yes Carl Farah MD Yes imatinib (GLEEVEC) 400 MG tablet Take 400 mg by mouth daily 01/31/2024 at 4:30 PM Yes Unknown, Entered By History irbesartan (AVAPRO) 75 MG tablet Take 1 tablet (75 mg) by mouth daily 01/31/2024 Morning Yes Carl Farah MD Yes mometasone (ASMANEX TWISTHALER) 220 MCG/ACT inhaler Inhale 1 puff into the lungs every evening. 01/31/2024 Evening Yes Unknown, Entered By History No omeprazole (PRILOSEC) [address] capsule Take 1 capsule (40 mg) by mouth daily as needed (heartburn) Past Week Yes Lewis Macias MD potassium chloride prabhu ER (KLOR-CON M10) 10 MEQ CR tablet Take 1 tablet (10 mEq) by mouth daily 01/31/2024 Morning Yes Carl Farah MD predniSONE (DELTASONE) 1 MG tablet Take 2 mg by mouth daily. 2 x 1 mg tablets 01/31/2024 Yes Gavi Cloud MD rosuvastatin (CRESTOR) 5 MG tablet Take 1 tablet (5 mg) by mouth daily 01/31/2024 Morning Yes Carl Farah MD Yes sertraline (ZOLOFT) 50 MG tablet Take 1.5 tablets (75 mg) by mouth daily 01/31/2024 Morning Yes Leiws Macias MD Yes spironolactone (ALDACTONE) 25 MG tablet Take 1 tablet (25 mg) by mouth every morning 01/31/2024 Morning Yes Carl Farah MD Yes tafluprost (ZIOPTAN) 0.0015 % SOLN ophthalmic solution Place 1 drop into the right eye at bedtime 01/31/2024 Bedtime Yes Estrada Moore MD tocilizumab (ACTEMRA) 80 MG/4ML Inject into the vein every 28 days 01/21/2024 Yes Harvinder Diamond MD Yes Vitamin D3 (CHOLECALCIFEROL) 25 mcg (1000 units) tablet Take 1 tablet by mouth daily. 01/31/2024 Morning Yes Unknown, Entered By History Allergies: Allergies Allergen Reactions Cortisone Cortisone shots Sulfa Antibiotics Family History: Family History Problem Relation Age of Onset Arthritis Mother Cerebrovascular Disease Mother Brain anuerysm- Arthritis Father alive Heart Disease Father bypass-alive Lipids Father hyperlipidemia-alive Deep Vein Thrombosis Maternal Grandmother No Known Problems Other Prostate Cancer No family hx of Social History: Griselda Lai reports that she has never smoked. She has never been exposed to tobacco smoke. She has never used smokeless tobacco. She reports that she does not drink alcohol and does not use drugs. Review of Systems: Constitutional: No fevers or chills Eyes: No blurred or double vision HENT: Denies headaches, No rhinorrhea, No sore throat Respiratory: No cough or shortness of breath Cardiovascular: Denies chest pain or palpitations Gastrointestinal: No abdominal pain or nausea/vomiting Genitourinary: No hematuria or dysuria Musculoskeletal: Denies arthralgias or myalgias Neurologic: No numbness or tingling Integumentary: No skin rashes Labs/Imaging All new lab and imaging data was reviewed. Recent Labs Lab 02/02/24 1022 WBC 9.0 HGB 12.7 HCT 36.8 MCV 100 PLT 115* Recent Labs Lab 02/01/24 1427 NA 138 POTASSIUM 3.9 CHLORIDE 100 CO2 24 ANIONGAP 14 GLC 106* BUN 12.0 CR 0.85 GFRESTIMATED 69 THI 9.2 PROTTOTAL 5.8* 5.8* ALBUMIN 4.0 4.0 BILITOTAL 4.1* 4.2* ALKPHOS 156* 158* AST 151* 145* ALT 187* 191* Recent Labs Lab 02/01/24 1427 AST 151* 145* ALT 187* 191* ALKPHOS 156* 158* BILITOTAL 4.1* 4.2* I have personally reviewed the imaging studies- Personally reviewed US abd, significant for dilated duct with cholelithiasis and distended gallbladder. 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 Reported scleral icterus on exam. Jaundice T,B 4.6 Clear liquid iquid NPO after midnight EUS and ERCP in AM David Barba MD FACP [facility] [employer] HARDWARE DESIGN ENGINEER documented in this encounter Miscellaneous Notes * Brief Op Note - Morgan Montano PA-C - 02/02/2024 2:50 PM CST [facility] Brief Operative Note Pre-operative diagnosis: Cholecystitis [K81.9] Choledocholithiasis with acute cholecystitis [K80.42] Post-operative diagnosis Acute Cholecystitis, Cholelithiasis Procedure: CHOLECYSTECTOMY, LAPAROSCOPIC, N/A - Abdomen Endoscopic retrograde cholangiopancreatogram complex, N/A - Mouth ENDOSCOPIC ULTRASOUND, N/A - Esophagus Surgeon: Surgeons and Role: Panel 1: * Rivas Delcid MD - Primary * Morgan Montano PA-C - Assisting Panel 2: * David Barba MD - Primary Anesthesia: General Estimated Blood Loss: 50 mL Drains: None Specimens: ID Type Source Tests Collected by Time Destination 1 : GALLBLADDER AND CONTENTS Tissue Gallbladder SURGICAL PATHOLOGY EXAM Rivas Delcid MD 02/02/2024 1:07 PM Findings: See Operative Report for full details. Gallbladder looked acutely inflamed . Complications: None. Implants: * No implants in log * Plan: Dr. Barba to complete ERCP/EUS. Return to floor and check labs in am. Bharath Montano PA-C [phone] [employer] H[employer]WARE DESIGN ENGINEER * Op Note - Rivas Delcid MD - 02/02/2024 2:35 PM CST General Surgery Operative Note PREOPERATIVE DIAGNOSIS: Acute cholecystitis with choledocholithiasis POSTOPERATIVE DIAGNOSIS: Same PROCEDURE: LAPAROSCOPIC CHOLECYSTECTOMY ANESTHESIA: General SURGEON: Rivas Delcid MD QUALITY ASSISTANT: Morgan Montano PA-C assisted in the above procedure. They provided assistance with pre-operative positioning, prepping, and draping of the patient. The legal assistant provided vital operative assistance with retraction using instruments thus providing the necessary exposure and visualization for the case, manipulation of tissues to achieve hemostasis, suction for visualization and assisted in closure of the wound. Post-operatively they assisted in transfer of the patient off the operative table and transition to the PACU physicians. INDICATIONS: Griselda Lai is a 79 year old female who presented with complaints of abdominal pain. Work-up was completed including physical exam, work-up, and labs and patient's presentation was most consistent with acute cholecystitis with choledocholithiasis. The decision was made for the patient to proceed to the operating room for laparoscopic removal of the gallbladder. The risks and benefits of the procedure were discussed with the patient, and consent for the procedure was obtained. PROCEDURE: The patient was brought to the preoperative area and preoperative antibiotics were administered. The patient was brought back to the operating room and placed in the supine position on theoperating table. Anesthesia was induced and the patient was intubated. The patient was secured to the operating table and their pressure points were padded. The patient's abdomen was prepped and draped in the sterile fashion. A time out was completed that confirmed patient, procedure, site of surgery, and any special equipment needed for the stated procedure. Following infiltration of local anesthetic, the 11 blade scalpel was used to make a small left upper quadrant incision. Entrance into the abdomen was gained using the 5mm visiport. The patient's abdomen was then fully insufflated with CO2. The scope was then placed within the abdomen. Initial inspection revealed no evidence of injury at the port entry site. Under direct visualization, 4 additional ports were placed, one 11 mm supraumbilical port and two 5 mm right lateral ports and a 5mm subxiphoid port. The gallbladder was very edematous, distended, inflamed, and encased in omental rind. The gallbladder was drained with a laparoscopic needle, and the bile appeared thin and yellow. This allowed for proper grasping of the gallbladder. The gallbladder was identified, grasped, and retracted cephalad over the dome of the liver. The infundibulum of the gallbladder was carefully dissected out using blunt dissection with suction brokerage branch manager and electrocautery. Once the infundibulum was identified, it was then grasped and retracted laterally. A combination of careful dissection utilizing the [place] dissector and hook electrocautery was then carried out to carefully dissect out the cystic duct and cystic artery. The cystic artery was obviously coursing up along the anterior side of the gallbladder. It was doubly clipped proximally and singly clipped distally and divided. This allowed for me to be able to carefully dissect the back side of the gallbladder out to allow visualization of the cystic neck and duct. When the cystic duct could be clearly seen to be coursing directly into the gallbladder with the back side of the gallbladder cleared, the patient's cystic duct was doubly clipped proximally, singly clipped distally, and divided. Due to the size of the duct, it was reinforced with aPDS endoloop. The hook electrocautery was then used to carefully dissect the gallbladder free from its attachments to the liver bed. During this process, the gallbladder was entered and there was bile spillage, which is inherent to the procedure. When the gallbladder had been completely dissected free, it was placed in an Endo Catch bag and removed through the left upper quadrant port. The port was reinserted and the surgical site inspected. Hemostasis of the liver bed was obtained using the electrocautery. Fibrillar was also placed into the gallbladder fossa for further hemostasis. The patient's right upper quadrant was then irrigated and suctioned with normal saline solution. The right upper quadrant was reexamined and hemostasis was excellent. The patient's supraumbilical port was thenremoved and there was no evidence of bleeding at the port exit site. The fascia was reapproximated using a [id number] 0 Vicryl stitch and the Ihsan-Sharon fascial closure device. The patient's 5 mm ports were then removed under direct visualization and there was no evidence of bleeding at the port exit sites. The patient's abdomen was then allowed to desufflate completely. The port sites were then inspected and hemostasis was obtained using the electrocautery. The port sites were reapproximated using 4-0 Monocryl subcuticular stitches. The incisions were washed and dried and sterile dressings were applied. The lap, needle, and instrument counts were correct at the end of the procedure. The patient tolerated the procedure well and was extubated and taken to the recovery area in stable condition. ESTIMATED BLOOD LOSS: 50cc INTRAOPERATIVE FINDINGS: Acutely inflamed, distended, edematous gallbladder SPECIMENS: Gallbladder and contents DRAINS: None CONDITION: Stable Rivas Delcid MD [employer] HARDWARE DESIGN ENGINEER * Plan of Care - Monisha Urrutia RN - 02/02/2024 6:30 AM CST Goal Outcome Evaluation: Summary: Trauma/Ortho/Medical (Choose one) Medical Diagnosis: Gall stones, Mental Status: 4 Activity/dangle up with SBA of 1 walker Diet: NPO Pain: denies pain Winter/Voiding: BR Tele/Restraints/Iso: n/a 02/LDA: CPAP at night D/C Date: TBD Other Info: EUS and ERCP in Am [employer] H[employer]WARE DESIGN ENGINEER * Plan of Care - Angelica Rose RN - 02/01/2024 7:03 PM CST Patient arrived from [facility] today. A&O x4, VSS on RA. Appears mildly jaundiced. Constant, severe pain present at the umbilical area, does not radiate. Utilized PRN IV dilaudid and oxycodone to control pain. Handover report was given to evening shift RN. At shift change, patient reported very little improvement in pain. Evening RN to follow up with provider to review pain medications. Family present at bedside, involved in patient care. Plan for EUS and ERCP Friday. [employer] HARDWARE DESIGN ENGINEER * Provider Notification - Shonda Rico RN - 02/01/2024 5:40 PM ELECTRON[employer] HARDWARE DESIGN ENGINEER Pt's pain is not being relieved despite giving oxycodone and dilaudid IV. Web paged to see if an increase in oxycodone would help. Awaiting call back/new orders. Will continue to monitor pt. [employer] HARDWARE DESIGN ENGINEER * Plan of Care - Shonda Rico RN - 02/01/2024 5:33 PM CST Goal Outcome Evaluation: [id number] Trauma/Ortho/Medical (Choose one) Medical Diagnosis: Gall stones, ERCP? Mental Status: 4 Activity/dangle up with SBA of 1 walker Diet: NPO Pain: Dilaudid, oxy Winter/Voiding: BR Tele/Restraints/Iso: n/a 02/LDA: 2L D/C Date: TBD Other Info:GI yet to see pt. 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 The information provided in this note is only as accurateas the sources available at the time of the update. Information Source(s): Patient via in-person Pertinent Information: Changes made to TRANSCRIBING OPERATORS SUPERVISOR medication list: Added: None Deleted: None Changed: Modified several entries to facilitate mapping products to orderes Allergies reviewed with patient and updates made in EHR: no Medication History Completed By: Baljit Morrison RPH 02/01/2024 2:04 PM TRANSCRIBING OPERATORS SUPERVISOR Med List Medication Sig Note Last Dose/Taking aspirin 81 MG EC tablet Take 81 mg by mouth daily. 01/31/2024 Morning betaxolol (BETOPTIC) 0.5 % ophthalmic solution Place 1 drop into the right eye 2 times daily. 01/31/2024 Evening carvedilol (COREG) 12.5 MG tablet Take 1 tablet (12.5 mg) by mouth 2 times daily (with meals) 01/31/2024 Evening CENTRUM SILVER PO TABS Take 1 tablet by mouth daily. 01/31/2024 Morning dorzolamide-timolol (COSOPT) 2-0.5 % ophthalmic solution Place 1 drop into the right eye 2 times daily. 01/31/2024 Evening fish oil-omega-3 fatty acids 1000 MG capsule Take 2 g by mouth daily. 02/01/2024: Use is inconsistent Past Week furosemide (LASIX) 20 MG tablet Take 1 tablet (20 mg) by mouth daily Plus 1 additional pill prn edema/shortness of breath, need appointment for further refill 01/31/2024 Morning imatinib (GLEEVEC) 400 MG tablet Take 400 mg by mouth daily 01/31/2024 at 4:30 PM irbesartan (AVAPRO) 75 MG tablet Take 1 tablet (75 mg) by mouth daily 01/31/2024 Morning mometasone (ASMANEX TWISTHALER) 220 MCG/ACT inhaler Inhale 1 puff into the lungs every evening. 01/31/2024 Evening omeprazole (PRILOSEC) [address] capsule Take 1 capsule (40 mg) by mouth daily as needed (heartburn) Past Week potassium chloride prabhu ER (KLOR-CON M10) 10 MEQ CR tablet Take 1 tablet (10 mEq) by mouth daily 01/31/2024 Morning rosuvastatin (CRESTOR) 5 MG tablet Take 1 tablet (5 mg) by mouth daily 01/31/2024 Morning sertraline (ZOLOFT) 50 MG tablet Take 1.5 tablets (75 mg) by mouth daily 01/31/2024 Morning spironolactone (ALDACTONE) 25 MG tablet Take 1 tablet (25 mg) by mouth every morning 01/31/2024 Morning tafluprost (ZIOPTAN) 0.0015 % SOLN ophthalmic solution Place 1 drop into the right eye at bedtime 01/31/2024 Bedtime tocilizumab (ACTEMRA) 80 MG/4ML Inject into the vein every 28 days 01/21/2024 Vitamin D3 (CHOLECALCIFEROL) 25 mcg (1000 units) tablet Take 1 tablet by mouth daily. 01/31/2024 Morning [employer]ON[employer] HARDWARE DESIGN ENGINEER documented in this encounter Plan of Treatment Upcoming Encounters Date Type Department Care Team (Late st Contact Info) Description 06/14/2024 1:00 PM CDT Office Visit [facility] [address] [place] [address] Hector Goode MD [address] [place] [address] [id number] [place], [place] [address] Scheduled Orders Name Type Priority Associated Diagnoses Order Schedule CPAP orders Respiratory Care Routine QHS unt il discontinued starting 02/01/2024 Oxygen: Nasal cannula, Oxygen mask Respiratory Care Routine As Needed until discontinued starting 02/01/2024 Oxygen: Nasal cannula Respiratory Care Routine As Needed until discontinued starting 02/02/2024 Surgical Pathology Exam Pathology and Cytology Routine Release Upon Ordering for 1 Occurrences starting 02/02/2024 Scheduled Procedures Name Priority Associated Diagnoses Date/Ti me CHOLECYSTECTOMY, LAPAROSCOPIC Cholecystitis Choledocholithiasis with acute cholecystitis 02/02/2024 12:27 PM ELECTRONICS HARDWARE DESIGN ENGINEER ENDOSCOPIC RETROGRADE CHOLANGIOPANCREATOGRAPHY, COMPLEX Cholecystitis Choledocholithiasis with acute cholecystitis 02/02/2024 12:27 PM ELECTRONICS HARDWARE DESIGN ENGINEER ENDOSCOPIC ULTRASOUND, ESOPHAGOSCOPY / UPPER GASTROINTESTINAL TRACT (GI) Cholecystitis Choledocholithiasis with acute cholecystitis 02/02/2024 12:27 PM ELECTRONICS HARDWARE DESIGN ENGINEER ENDOSCOPIC RETROGRADE CHOLANGIOPANCREATOGRAPHY, COMPLEX Cholecystitis Choledocholithiasis with acute cholecystitis documented as of this encounter Procedures * The patient is currently admitted. The information in this section might not be complete until the patient is discharged. Procedure Name Priority Date/Time Associated Diagnosis Comments XR SURGERY ROBBY FLUORO LESS THAN 5 MIN W STILLS Routine 02/02/2024 3:23 PM ELECTRONICS HARDWARE DESIGN ENGINEER RBC AND PLATELET MORPHOLOGY Routine 02/02/2024 10:22 AM ELECTRONICS HARDWARE DESIGN ENGINEER CBC WITH PLATELETS AND DIFFERENTIAL Routine 02/02/2024 10:22 AM ELECTRONICS HARDWARE DESIGN ENGINEER CBC WITH PLATELETS & DIFFERENTIAL Routine 02/02/2024 10:22 AM ELECTRONICS HARDWARE DESIGN ENGINEER COMPREHENSIVE METABOLIC PANEL Routine 02/02/2024 10:22 AM ELECTRONICS HARDWARE DESIGN ENGINEER US ABDOMEN LIMITED STAT 02/02/2024 9: 31 AM ELECTRONICS HARDWARE DESIGN ENGINEER LACTIC ACID WHOLE BLOOD WITH 1X REPEAT IN 2 HR WHEN >2 STAT 02/01/2024 2:27 PM ELECTRONICS HARDWARE DESIGN ENGINEER HEPATIC FUNCTION PANEL Routine 2:27 PM ELECTRONICS HARDWARE DESIGN ENGINEER COMPREHENSIVE METABOLIC PANEL Add-On 02/01/2024 2:27 PM ELECTRONICS HARDWARE DESIGN ENGINEER EKG 12-LEAD, TRACING ONLY STAT 02/01/2024 1:19 PM ELECTRONICS HARDWARE DESIGN ENGINEER documented in this encounter Results * XR Surgery ROBBY Fluoro Less Than 5 Min w Stills (02/02/2024 3:23 PM ELECTRONICS HARDWARE DESIGN ENGINEER) Narrative RADIANT - 02/02/2024 3:24 PM ELECTRONICS HARDWARE DESIGN ENGINEER This exam was marked as non-reportable because it will not be read by a radiologist or a [place] non-radiologist provider. Delroy Hagen MD [facility] [place] DIAGNOSTIC IMAGING ORDERABLE S Final Result [facility] * RBC and Platelet Morphology (02/02/2024 10:22 AM ELECTRONICS HARDWARE DESIGN ENGINEER) RBC Morphology Confirmed RBC Indices 02/02/2024 1:18 PM ELECTRONICS HARDWARE DESIGN ENGINEER LABORATORY Platelet Assessment Automated Count Confirmed. Platelet morphology is normal. Automated Count Confirmed. Platelet morphology is normal. [facility] 02/02/2024 1:18 PM ELECTRONICS HARDWARE DESIGN ENGINEER LABORATORY Blood STRUCTURE OF RIGHT HAND / Unknown Venipuncture / Unknown 02/02/2024 10:22 AM ELECTRONICS HARDWARE DESIGN ENGINEER 02/02/2024 10:36 AM ELECTRONICS HARDWARE DESIGN ENGINEER Toño Dotson DO LAB - BLOOD ORDERABLE S Final Result LABORATORY [facility] Acute Care Lab [address], [address] [place] [address], [facility] [phone] * (ABNORMAL) CBC with platelets and differential (02/02/2024 10:22 AM ELECTRONICS HARDWARE DESIGN ENGINEER) WBC Count 9.0 4.0 - 11.0 10e3/uL 02/02/2024 1:18 PM ELECTRONICS HARDWARE DESIGN ENGINEER LABORATORY RBC Count 3.70(L) 3.80 - 5.20 10e6/uL 02/02/2024 1:18 PM ELECTRONICS HARDWARE DESIGN ENGINEER LABORATORY Hemoglobin 12.7 11.7 - 15.7 g/dL 02/02/2024 1:18 PM ELECTRONICS HARDWARE DESIGN ENGINEER LABORATORY Hematocrit 36.8 35.0 - 47.0 % 02/02/2024 1:[address] [facility] MCV 100 78 - 100 fL 02/02/2024 1:[address] [facility] MCH 34.3(H) 26.5 - 33.0 pg 02/02/2024 1:[address] [facility] MCHC 34.5 31.5 - 36.5 g/dL 02/02/2024 1:[address] [facility] RDW 13.4 10.0 - 15.0 % 02/02/2024 1:[address] [facility] Platelet Count 115(L) 150 - 450 10e3/uL 02/02/2024 1:[address] [facility] % Neutrophils 79 % 02/02/2024 1:[address] [facility] % Lymphocytes 10 % 02/02/2024 1:[address] [facility] % Monocytes 8 % 02/02/2024 1:[address] [facility] % Eosinophils 2 % 02/02/2024 1:[address] [facility] % Basophils 1 % 02/02/2024 1:[address] [facility] % Immature Granulocytes 0 % 02/02/2024 1:[address] [facility] NRBCs per 100 WBC 0 <1 /100 024 1:[address] [facility] Absolute Neutrophils 7.1 1.6 - 8.3 10e3/uL 02/02/2024 1:[address] [facility] Absolute Lymphocytes 0.9 0.8 - 5.3 10e3/uL 02/02/2024 1:[address] [facility] Absolute Monocytes 0.7 0.0 - 1.3 10e3/uL 02/02/2024 1:[address] [facility] Absolute Eosinophils 0.2 0.0 - 0.7 10e3/uL 02/02/2024 1:[address] [facility] Absolute Basophils 0.1 0.0 - 0.2 10e3/uL 02/02/2024 1:[address] [facility] Absolute Immature Granulocytes 0.0 <=0.4 10e3/uL 02/02/2024 1:[address] [facility] Absolute NRBCs 0.0 10e3/uL 02/02/2024 1:[address] [facility] Blood STRUCTURE OF RIGHT HAND / Unknown Venipuncture / Unknown 02/02/2024 10:22 AM ELECTRONICS HARDWARE DESIGN ENGINEER 02/02/2024 10:36 AM [facility] us Toño Dotson DO LAB - BLOOD ORDERABLE S Final Result LABORATORY [facility] Acute [facility] [address] 1[address] floor, [address] [place] [address], [facility] [phone] * (ABNORMAL) Comprehensive metabolic panel (02/02/2024 10:22 AM [facility]) Pathologist [facility] Sodium 140 135 - 145 mmol/L 02/02/2024 11:[address] [facility] Potassium 3.4 3.4 - 5.3 mmol/L 02/02/2024 11:[address] [facility] Carbon Dioxide (CO2) 28 22 - 29 mmol/L 02/02/2024 11:[address] [facility] Anion Gap 10 7 - 15 mmol/L 02/02/2024 11:[address] [facility] Urea Nitrogen 15.6 8.0 - 23.0 mg/dL 02/02/2024 11:[address] [facility] Creatinine 0.94 0.51 - 0.95 mg/dL 02/02/2024 11:[address] [facility] GFR Estimate 61 >60 mL/min/1.7 3m2 02/02/2024 11:[address] [facility] Comment:eGFR calculated usin 2020 CKD-EPI equation. Calcium 9.2 8.8 - 10.4 mg/dL 02/02/2024 11:[address] [facility] Comment:Reference intervals for this test were updated on 09/23/2023 to reflect our healthy population more accurately. There may be differences in the flagging of prior results with similar values performed with this method. Those prior results can be interpreted in the context of the updated reference intervals. Chloride 102 98 - 107 mmol/L 02/02/2024 11:[address] [facility] Glucose 93 70 - 99 mg/dL 02/02/2024 11:[address] [facility] Alkaline Phosphatase 149 40 - 150 U/L 02/02/2024 11:[address] [facility] AST 124(H) 0 - 45 U/L 02/02/2024 11:[address] [facility] ALT 182(H) 0 - 50 U/L 02/02/2024 11:[address] [facility] Protein Total 5.4(L) 6.4 - 8.3 g/dL 02/02/2024 11:[address] [facility] Albumin 3.8 3.5 - 5.2 g/dL 02/02/2024 11:[address] [facility] Bilirubin Total 3.8(H) <=1.2 mg/dL 02/02/2024 11:[address] [facility] Blood STRUCTURE OF RIGHT HAND / Unknown Venipuncture / Unknown 02/02/2024 10:22 AM [employer] 02/02/2024 10:36 AM [employer] DESIGN ENGINEER Toño Dotson DO LAB - BLOOD ORDERABLE S Final Result LABORATORY [facility] [address] 1[address], [address] [place] [address], [facility] [phone] * US Abdomen Limited (02/02/2024 9:31 AM [employer]) Anatomical Region Laterality Modality Abdomen/Pelvis Ultrasound Impressions 02/02/2024 2:56 PM [employer] IMPRESSION: Distended gallbladder with gallbladder sludge and stones. Negative sonographic Lo sign. Cholecystitis not excluded. Common duct is mildly distended measuring 8 mm. LAURA OLIVARES MD SYSTEM ID: [id number] Narrative 02/02/2024 2:56 PM [employer] ULTRASOUND ABDOMEN LIMITED 02/02/2024 9:31 AM CLINICAL [...] 8 mm. LAURA OLIVARES MD SYSTEM ID: [id number] Rivas Delcid MD [facility] ORDERABLES Final Result * (ABNORMAL) Comprehensive metabolic panel (02/01/2024 2:27 PM [employer] DES[employer]) [facility] Sodium 138 135 - 145 mmol/L 02/01/2024 5:[address] [facility] Potassium 3.9 3.4 - 5.3 mmol/L 02/01/2024 5:[address] [facility] Carbon Dioxide (CO2) 24 22 - 29 mmol/L 02/01/2024 5:[address] [facility] Anion Gap 14 7 - 15 mmol/L 02/01/2024 5:[address] [facility] Urea Nitrogen 12.0 8.0 - 23.0 mg/dL 02/01/2024 5:[address] [facility] Creatinine 0.85 0.51 - 0.95 mg/dL 02/01/2024 5:[address] [facility] GFR Estimate 69 >60 mL/min/1.7 3m2 02/01/2024 5:[address] [facility] Comment:eGFR calculated usin 2020 CKD-EPI equation. Calcium 9.2 8.8 - 10.4 mg/dL 02/01/2024 5:[address] [facility] Comment:Reference intervals for this test were updated on 09/23/2023 to reflect our healthy population more accurately. There may be differences in the flagging of prior results with similar values performed with this method. Those prior results can be interpreted in the context of the updated reference intervals. Chloride 100 98 - 107 mmol/L 02/01/2024 5:[address] [facility] Glucose 106(H) 70 - 99 mg/dL 02/01/2024 5:15 PM [employer] LABORATORY Alkaline Phosphatase 156(H) 40 - 150 U/L 02/01/2024 5:15 PM [employer] LABORATORY AST 151(H) 0 - 45 U/L 02/01/2024 5:15 PM [employer] LABORATORY ALT 187(H) 0 - 50 U/L 02/01/2024 5:15 PM [employer] LABORATORY Protein Total 5.8(L) 6.4 - 8.3 g/dL 02/01/2024 5:15 PM [employer] LABORATORY Albumin 4.0 3.5 - 5.2 g/dL 02/01/2024 5:[address] [facility] Bilirubin Total 4.1(H) <=1.2 mg/dL 02/01/2024 5:[address] [facility] Blood STRUCTURE OF RIGHT HAND / Unknown Venipuncture / Unknown 02/01/2024 2:27 PM [employer] 02/01/2024 2:36 PM [employer] DESIGN ENGINEER us Delroy Hagen MD LAB - BLOOD ORDERABLES Final Res ult LABORATORY [facility] Acute Care Lab [address], [address] [place] [address], [facility] [phone] * (ABNORMAL) Hepatic panel (02/01/2024 2:27 PM [employer]) Protein Total 5.8(L) 6.4 - 8.3 g/dL 02/01/2024 2:56 PM [employer] LABORATORY Albumin 4.0 3.5 - 5.2 g/dL 02/01/2024 2:56 PM [employer] LABORATORY Bilirubin Total 4.2(H) <=1.2 mg/dL 02/01/2024 2:56 PM [employer] DES[employer]INE[employer] LABORATORY Alkaline Phosphatase 158(H) 40 - 150 U/L 02/01/2024 2:56 PM [employer] DES[employer] ENGINE[employer] LABORATORY AST 145(H) 0 - 45 U/L 02/01/2024 2:56 PM [employer] ENG[employer] LABORATORY ALT 191(H) 0 - 50 U/L 02/01/2024 2:56 PM [employer] ENG[employer] LABORATORY Bilirubin Direct 3.43(H) 0.00 - 0.30 mg/dL 02/01/2024 2:56 PM [employer] DES[employer] ENGINEER LABORATORY Blood STRUCTURE OF RIGHT HAND / Unknown Venipuncture / Unknown 02/01/2024 2:27 PM [employer] DES[employer] ENGINEER 02/01/2024 2:36 PM [employer] DESIGN ENGINEER Toño Dotson DO LAB - BLOOD ORDERABLE S Final Result Performing Organization Address City/[facility]/ZIP Co de Phone Number LABORATORY [facility] Lab [address] 1[address], [address] [place] [address], [facility] [phone] * Lactic Acid Whole Blood w/ 1x repeat in 2 hrs when >2 (02/01/2024 2:27 PM [employer]) Lactic Acid, Initial 1.2 0.7 - 2.0 mmol/L 02/01/2024 2:38 PM [employer] DES[employer] ENGINEER LABORATORY Blood STRUCTURE OF RIGHT HAND / Unknown Venipuncture / Unknown 02/01/2024 2:27 PM [employer] DES[employer] ENGINEER 02/01/2024 2:33 PM [employer] DES[employer] ENGINEER us Delroy Hagen MD LAB - BLOOD ORDERABLES Final Res ult Performing Organization Address City/[facility]/ZIP Co de Phone Number [facility] Lab [address] 1[address], [address] [place] [address], [facility] [phone] * EKG 12-lead, tracing only (02/01/2024 1:19 PM [employer]) Systolic Blood Pressure mmHg RADIOLOGY RESULTS Diastolic Blood Pressure mmHg RADIOLOGY RESULTS Ventricular Rate 69 BPM RAD IOLOGY RESULTS Atrial Rate 69 BPM RADIOLOG Y RESULTS VA Interval 146 ms RADIOLOG Y RESULTS QRS Duration 140 ms RADIOLO GY RESULTS QT 448 ms RADIOLOGY RESULTS QTc 480 ms RADIOLOGY RESULTS P [place] 62 degrees RADIOLOGY RESULTS R AXIS -41 degrees RADIOLOGY RESULTS T [place] 95 degrees RADIOLOGY RESULTS Interpretation ECG Sinus rhythm Left axis deviation Left bundle branch block Abnormal ECG When compared with ECG of 01-Jan-2021 21:45, No significant change was found Confirmed by ISTHIERNOS, MD, DEMOS ([id number]) on 02/02/2024 11:39:18 AM RADIOLOGY RESULTS 02/01/2024 1:19 PM [employer] DES[employer] ENG[employer]ER 02/02/2024 11:39 AM [employer] DESIGN ENGINEER Toño Dotson DO ECG ORDERABLES Edite d Result - Final RADIOLOGY RESULTS documented in this encounter Visit Diagnoses Diagnosis Cholecystitis- Primary Cholecystitis, unspecified Cholecystitis Cholecystitis, unspecified Choledocholithiasis with acute cholecystitis Calculus of bile duct with acute cholecystitis without mention of obstruction Cholecystitis Cholecystitis, unspecified Choledocholithiasis with acute cholecystitis Calculus of bile duct with acute cholecystitis without mention of obstruction documented in this encounter Administered Medications Active Administered Medications - up to 3 most recent administrations Medication Order MAR Action Action Date Dose Rate Site acetaminophen (TYLENOL) Suppository 650 mg 650 mg, Rectal, EVERY 4 HOURS PRN, mild pain, other, and adjunct with moderate or severe pain or per patient request, Starting on 02/01/24 at 1309, Alternate with ibuprofen if ordered. Maximum acetaminophen dose from all sources = 75 mg/kg/day not to exceed 4 grams/day. acetaminophen (TYLENOL) tablet 650 mg 650 mg, Oral, EVERY 4 HOURS PRN, mild pain, other, and adjunct with moderate or severe pain or per patient request, Starting on 02/01/24 at 1309, Alternate with ibuprofen if ordered. Maximum acetaminophen dose from all sources = 75 mg/kg/day not to exceed 4 grams/day. carvedilol (COREG) tablet 12.5 mg 12.5 mg, Oral, 2 TIMES DAILY WITH MEALS, First dose on 02/01/24 at 1800, Tablets can be crushed and given via enteral route. $Given 02/02/2024 10:00 AM [employer] DES[employer] ENGINEER 12.5 mg $Given 02/01/2024 5:22 PM [employer] DESIGN ENGINEER 12.5 mg dexAMETHasone (DECADRON) injection 4 mg 4 mg, Intravenous, ONCE PRN, vomiting, nausea, Administer over 1 Minutes, Starting on 02/02/24 at 1504, For 1 dose, Administer ONLY if dexamethasone (DECADRON) NOT given in the OR. This is Step 2 of nausea and vomiting management. IF nausea vomiting NOT resolved within 30 minutes or dexamethasone (DECADRON) was given in the OR go to Step 3 prochlorperazine (COMPAZINE)., PACU dorzolamide-timolol (COSOPT) ophthalmic solution 1 drop 1 drop, Right Eye, 2 TIMES DAILY, First dose on 02/01/24 at 2100 $Given 02/02/2024 9:56 AM [employer] DES[employer] ENGINEER 1 drop $Given 02/01/2024 8:24 PM [employer] DESIGN ENGINEER 1 drop fentaNYL (PF) (SUBLIMAZE) injection 25 mcg 25 mcg, Intravenous, EVERY 5 MIN PRN, moderate pain, Give fentaNYL (SUBLIMAZE) first if HYDROmorphone (DILAUDID) also ordered., Starting on Fri02/02/24 at 1504, Administer fentaNYL (SUBLIMAZE) for acute pain control. Move to HYDROmorphone (DILAUDID): - IF patient has received up to 200 mcg of fentaNYL (SUBLIMAZE) OR - IF patient has received 2 doses of fentaNYL (SUBLIMAZE) AND continues to have pain score greater than or equal to six (6) or is unable to participate in post op recovery due to pain. Wait 5 minutes AFTER last fentaNYL (SUBLIMAZE) dose before administering HYDROmorphone (DILADUDID). Postop Anesthesia Phase I only. Notify Provider to assess for uncontrolled pain or analgesic side effects. DO NOT revert back to fentanyl (SUBLIMAZE) after administering HYDROmorphone (DILAUDID)., PACU fentaNYL (PF) (SUBLIMAZE) injection 50 mcg 50 mcg, Intravenous, EVERY 5 MIN PRN, severe pain, Give fentaNYL (SUBLIMAZE) first if HYDROmorphone (DILAUDID) also ordered., Starting on Fri02/02/24 at 1504, Administer fentaNYL (SUBLIMAZE) for acute pain control. Move to HYDROmorphone (DILAUDID): - IF patient has received up to 200 mcg of fentaNYL (SUBLIMAZE), OR - IF patient has received 2 doses of fentaNYL (SUBLIMAZE) AND continues to have severe pain (pain score greater than or equal to seven (7) or is unable to participate in post op recovery due to pain. Wait 5 minutes AFTER last fentaNYL (SUBLIMAZE) dose before administering HYDROmorphone (DILADUDID). Postop Anesthesia Phase I only. Notify Provider to assess for uncontrolled pain or analgesic side effects. DO NOT revert back to fentanyl (SUBLIMAZE) after administering HYDROmorphone (DILAUDID)., PACU HYDROmorphone (DILAUDID) injection 0.2 mg 0.2 mg, Intravenous, EVERY 2 HOURS PRN, moderate pain, IF patient cannot take oral opioid OR IF pain not managed with non-pharmacological, non-opioid, or oral opioid interventions if ordered, Starting on 02/01/24 at 1310, May use concomitant with non-opioid analgesics. $Given 02/01/2024 1:55 PM [employer] 0.2 mg HYDROmorphone (DILAUDID) injection 0.2 mg 0.2 mg, Intravenous, EVERY 5 MIN PRN, moderate pain, Starting on Fri02/02/24 at 1504, Use FentaNYL (SUBLIMAZE) first if ordered. Maximum total cumulative dose NOT to exceed 2 mg. DO NOT revert back to fentanyl (SUBLIMAZE) after administering HYDROmorphone (DILAUDID). Notify Provider to assess for uncontrolled pain or analgesic side effects., PACU HYDROmorphone (DILAUDID) injection 0.4 mg 0.4 mg, Intravenous, EVERY 2 HOURS PRN, severe pain, IF patient cannot take oral opioid OR IF pain not managed with non-pharmacological, non-opioid, or oral opioid interventions if ordered, Starting on 02/01/24 at 1310, May use concomitant with non-opioid analgesics. $Given 02/01/2024 4:54 PM [employer] DES[employer]INEER 0.4 mg $Given 02/01/2024 2:56 PM [employer] DESIGN ENGINEER 0.4 mg HYDROmorphone (DILAUDID) injection 0.4 mg 0.4 mg, Intravenous, EVERY 5 MIN PRN, severe pain, Starting on Fri02/02/24 at 1504, Use FentaNYL (SUBLIMAZE) first if ordered. Maximum total cumulative dose NOT to exceed 2 mg. DO NOT revert back to fentanyl (SUBLIMAZE) after administering HYDROmorphone (DILAUDID). Notify Provider to assess for uncontrolled pain or analgesic side effects., PACU lactated ringers infusion at 100 mL/hr, Intravenous, CONTINUOUS, Continue until IV catheter is weaned, PACU, Starting on Fri02/02/24 at 1530, Until Discontinued mometasone (ASMANEX TWISTHALER) 220 MCG/ACT inhaler 1 puff 1 puff, Inhalation, EVERY EVENING, First dose on Fri02/01/24 at 2000, Rinse mouth after use. Check the dose counter on the inhaler to ensure there are doses remaining before administering. $Given 02/01/2024 8:20 PM [employer] DES[employer]ER 1 puff naloxone (NARCAN) injection 0.1 mg 0.1 mg, Intravenous, EVERY 2 MIN PRN, opioid reversal, Starting on Fri02/02/24 at 1504, Notify Anesthesia Provider when administering naloxone (NARCAN) for unintended sedation or respiratory depression IF all three of the following criteria are met: 1. Respiratory rate LESS than or EQUAL to 8. 2. SaO2 is LESS than 92% and/or end-tidal CO2 is GREATER than 50. 3. Patient is receiving an opioid, has unintended sedation assessed as RASS (-4) or (-5) and patient is NOT currently on mechanical ventilation. RASS scale (-4) is deep sedation with no response to voice but movement or eye opening to physical stimulation. RASS scale (-5) is unarousable. Notify Anesthesia Provider PRIOR to administering additional opioids if naloxone (NARCAN) given. Monitor in Phase I for 2 hours after last naloxone (NARCAN) dose PRIOR to transfer to Patient Care Unit or Phase II., PACU naloxone (NARCAN) injection 0.2 mg 0.2 mg, Intravenous, EVERY 2 MIN PRN, opioid reversal, Starting on Fri02/01/24 at 1320, Administer intravenous route when available and notify provider when administered. For unintended sedation or respiratory depression if all of the below criteria are met: ~ respiratory rate LESS than or EQUAL to 8. ~SaO2 less than 92% and or/end-tidal CO2 is greater than 50. ~ the patient is receiving an opioid, has unintended sedations assessed as RASS (-3), and is currently not on mechanical ventilation. RASS scale moderate (-3) is movement or eye opening to voice but no eye contact. Patient Monitoring Once the patient has demonstrated a response to the naloxone, continue to monitor respiratory rate, depth, oxygen saturation and end-tidal CO2 (if available) every 15 minutes x 2, then every 30 minutes x 2, then every 1 hour x 1 after each naloxone dose. Consider transfer to ICU if patient respiratory parameters have not improved after 4 naloxone doses. naloxone (NARCAN) injection 0.2 mg 0.2 mg, Intramuscular, EVERY 2 MIN PRN, opioid reversal, Starting on 02/01/24 at 1320, Administer intramuscular if an intravenous route is not available and notify provider when administered. For unintended sedation or respiratory depression if all of the below criteria are met: ~ respiratory rate LESS than or EQUAL to 8. ~SaO2 less than 92% and or/end-tidal CO2 is greater than 50. ~ the patient is receiving an opioid, has unintended sedations assessed as RASS (-3), and is currently not on mechanical ventilation. RASS scale moderate (-3) is movement or eye opening to voice but no eye contact. Patient Monitoring Once the patient has demonstrated a response to the naloxone, continue to monitor respiratory rate, depth, oxygen saturation and end-tidal CO2 (if available) every 15 minutes x 2, then every 30 minutes x 2, then every 1 hour x 1 after each naloxone dose. Consider transfer to ICU if patient respiratory parameters have not improved after 4 naloxone doses. naloxone (NARCAN) injection 0.4 mg 0.4 mg, Intravenous, EVERY 2 MIN PRN, opioid reversal, Starting on 02/01/24 at 1320, Administer intravenous route when available and notify provider when administered. For unintended sedation or respiratory depression if all of the below criteria are met: ~ respiratory rate LESS than or EQUAL to 8. ~ SaO2 less than 92% and or/end-tidal CO2 is greater than 50. ~ the patient is receiving an opioid, has unintended sedation assessed as RASS (-4) or (-5) and patient is currently not on mechanical ventilation. RASS scale (-4) is deep sedation with no response to voice but movement or eye opening to physical stimulation. RASS scale (-5) is unarousable. Patient Monitoring Once the patient has demonstrated a response to the naloxone, continue to monitor respiratory rate, depth, oxygen saturation and end-tidal CO2 (if available) every 15 minutes x 2, then every 30 minutes x 2, then every 1 hour x 1 after each naloxone dose. Consider transfer to ICU if patient respiratory parameters have not improved after 4 naloxone doses. naloxone (NARCAN) injection 0.4 mg 0.4 mg, Intramuscular, EVERY 2 MIN PRN, opioid reversal, Starting on 02/01/24 at 1320, Administer intramuscular if an intravenous route is not available and notify provider when administered. For unintended sedation or respiratory depression if all of the below criteria are met: ~ respiratory rate LESS than or EQUAL to 8. ~ SaO2 less than 92% and or/end-tidal CO2 is greater than 50. ~ the patient is receiving an opioid, has unintended sedation assessed as RASS (-4) or (-5) and patient is currently not on mechanical ventilation. RASS scale (-4) is deep sedation with no response to voice but movement or eye opening to physical stimulation. RASS scale (-5) is unarousable. Patient Monitoring Once the patient has demonstrated a response to the naloxone, continue to monitor respiratory rate, depth, oxygen saturation and end-tidal CO2 (if available) every 15 minutes x 2, then every 30 minutes x 2, then every 1 hour x 1 after each naloxone dose. Consider transfer to ICU if patient respiratory parameters have not improved after 4 naloxone doses. ondansetron (ZOFRAN ODT) ODT tab 4 mg 4 mg, Oral, EVERY 6 HOURS PRN, Nausea and Vomiting, Starting on Fri02/01/24 at 1327, Do not push through foil backing: PEEL BACK foil and GENTLY remove. Place on tongue immediately. Administration with liquid is unnecessary. With dry hands, peel back foil backing and gently remove tablet. Do not push oral disintegrating tablet through foil backing. Administer immediately on tongue and oral disintegrating tablet dissolves in seconds, then swallow with saliva. Liquid not required. ondansetron (ZOFRAN ODT) ODT tab 4 mg 4 mg, Oral, EVERY 30 MIN PRN, nausea, Starting on Fri02/02/24 at 1504, For 2 doses, Administer if NO vascular access present. This is Step 1 of nausea and vomiting management. If nausea/vomiting not resolved in 15 minutes, go to Step 2 dexamethasone (DECADRON) IV. MAX total dose = 8 mg, including OR dosing. With dry hands, peel back foil backing and gently remove tablet. Do not push oral disintegrating tablet through foil backing. Administer immediately on tongue and oral disintegrating tablet dissolves in seconds, then swallow with saliva. Liquid not required., PACU ondansetron (ZOFRAN) injection 4 mg 4 mg, Intravenous, EVERY 6 HOURS PRN, nausea, vomiting, Administer over 2-5 Minutes, Starting on Fri02/01/24 at 1327 $Given 02/01/2024 4:53 PM [employer] DES[employer] ENGINEER 4 mg ondansetron (ZOFRAN) injection 4 mg 4 mg, Intravenous, EVERY 30 MIN PRN, nausea, Administer over 2-5 Minutes, Starting on Fri02/02/24 at 1504, For 2 doses, This is Step 1 of nausea and vomiting management. If nausea/vomiting not resolved in 15 minutes, then go to Step 2 dexamethasone (DECADRON) IV. MAX total dose = 8 mg, including OR dosing., PACU oxyCODONE (ROXICODONE) tablet 10 mg 10 mg, Oral, EVERY 4 HOURS PRN, severe pain, IF pain not managed with non-pharmacological and non-opioid interventions, Starting on Fri02/01/24 at 1741, May use concomitant with non-opioid analgesics. oxyCODONE (ROXICODONE) tablet 5 mg 5 mg, Oral, EVERY 4 HOURS PRN, moderate pain, IF pain not managed with non-pharmacological and non-opioid interventions, Starting on Fri02/01/24 at 1741, May use concomitant with non-opioid analgesics. piperacillin-tazobactam (ZOSYN) 3.375 g vial to attach to NS 100 mL bag Routine, 3.375 g, Intravenous, EVERY 6 HOURS, First dose on Fri02/01/24 at 1530, Dose adjusted per renal dosing policy. Estimated CrCl = >40 mL/min. Lactated Ringer's solution is not compatible with piperacillin-tazobactam for injection., Indications: Intra-Abdominal InfectionIndications:Intra-Abdominal Infection $New Bag 02/02/2024 10:37 AM [employer] DESIGN ENGINEER 3.375 g $New Bag 02/02/2024 6:03 AM [employer] DESIGN ENGINEER 3.375 g $New Bag 02/01/2024 11:17 PM [employer] DESIGN ENGINEER 3.375 g predniSONE (DELTASONE) tablet 2 mg 2 mg, Oral, DAILY, First dose on Fri02/01/24 at 1330 $Given 02/02/2024 9:55 AM [employer] DESIGN ENGINEER 2 mg $Given 02/01/2024 5:23 PM [employer] DESIGN ENGINEER 2 mg prochlorperazine (COMPAZINE) injection 5 mg 5 mg, Intravenous, EVERY 6 HOURS PRN, nausea, vomiting, Administer over 1-2 Minutes, Starting on Fri02/02/24 at 1504, This is Step 3 of the nausea and vomiting protocol. If nausea/vomitting not resolved in 15-30 minutes, notify Provider., PACU rosuvastatin (CRESTOR) tablet 5 mg 5 mg, Oral, DAILY, First dose on Fri02/02/24 at 0900 $Given 02/02/2024 9:55 AM [employer] DESIGN ENGINEER 5 mg senna-docusate (SENOKOT-S/PERICOLACE) 8.6-50 MG per tablet 1 tablet 1 tablet, Oral, 2 TIMES DAILY PRN, constipation, Starting on 02/01/24 at 1306, If no bowel movement in 24 hours, increase to 2 tablets by mouth. IF more than 1 constipation PRN medication is ordered, administer step-vuong as indicated, moving to the next step ONLY if prior step ineffective. Step 1: senna-docusate (SENOKOT-S; PERICOLACE) OR bisacodyl (DULCOLAX) EC tablet Step 2: polyethylene glycol (MIRALAX/GLYCOLAX) Step 3: bisacodyl (DULCOLAX) suppository Step 4: enema Hold for loose stools. senna-docusate (SENOKOT-S/PERICOLACE) 8.6-50 MG per tablet 2 tablet 2 tablet, Oral, 2 TIMES DAILY PRN, constipation, Starting on 02/01/24 at 1306, IF more than 1 constipation PRN medication is ordered, administer step-vuong as indicated, moving to the next step ONLY if prior step ineffective. Step 1: senna-docusate (SENOKOT-S; PERICOLACE) OR bisacodyl (DULCOLAX) EC tablet Step 2: polyethylene glycol (MIRALAX/GLYCOLAX) Step 3: bisacodyl (DULCOLAX) suppository Step 4: enema Hold for loose stools. sertraline (ZOLOFT) tablet 75 mg 75 mg, Oral, DAILY, First dose on Fri02/02/24 at 0900 $Given 02/02/2024 9:55 AM [employer] 75 mg sodium chloride (PF) 0.9% PF flush 3 mL 3 mL, Intracatheter, EVERY 8 HOURS, First dose on Fri02/01/24 at 1330, to lock peripheral IV dormant line $Given 02/02/2024 6:03 AM [employer] 3 mLs $Given 02/01/2024 2:57 PM [employer] 3 mLs Inactive Administered Medications - up to 3 most recent administrations Medication Order MAR Action Action Date Dose Rate Site BUPivacaine 0.5% - EPINEPHrine 1:200,000 (PF) injection PRN, Starting on Fri02/02/24 at 1430, Intra-procedure $Given 02/02/2024 2:30 PM [employer] 30 mLs Operative Site/Surgical Site sodium chloride 0.9% irrigation (bag) PRN, Starting on Fri02/02/24 at 1422, Intra-procedure $Given 02/02/2024 2:22 PM [employer] 1,000 mLs Operative Site/Surgical Site sterile water (bottle) irrigation PRN, Intra-procedure, Starting on Fri02/02/24 at 1252, Until Fri02/02/24 at 1519 $Given 02/02/2024 12:52 PM [employer] 1,000 mLs documented in this encounter Active and Recently Administered Medications Times are shown in [employer]. Scheduled Medication Order 01/31/2024 02/01/2024 02/02/2024 acetaminophen (TYLENOL) tablet 975 mg (COMPLETED) 975 mg, Oral, ONCE, On Fri02/02/24 at 1200, For 1 dose, Maximum acetaminophen dose from all sources = 75 mg/kg/day not to exceed 4 grams/day., Pre-procedure 1203 ($Given - Provider: Mariama Khan RN) aspirin EC tablet 81 mg 81 mg, Oral, DAILY, First dose on 02/01/24 at 1630, DO NOT CRUSH., On hold since Fri02/01/2024 at 1611 until manually unheld 1611 (Held by provider - Provider: Toño Dotson, - Reason: Transfer to a procedural area)1630 (Automatically Held) 0900 (Automatically Held) betaxolol (BETOPTIC) 0.5 % ophthalmic solution 1 drop 1 drop, Right Eye, 2 TIMES DAILY, First dose on Fri02/01/24 at 2100 2030 (Not Given - Provider: Monisha Urrutia RN - Reason: Medication not available) 1000 (Not Given - Provider: Kina Dawson RN - Reason: Medication not available)1127 (Auto Hold - Provider: Orders Generic Provider - Reason: Transfer to a procedural area)2100 (Automatically Held - Provider: Orders Generic Provider) carvedilol (COREG) tablet 12.5 mg 12.5 mg, Oral, 2 TIMES DAILY WITH MEALS, First dose on 02/01/24 at 1800, Tablets can be crushed and given via enteral route. 1722 ($Given - Provider: Shonda Dozier RN) 1000 ($Given - Provider: Kina Dawson, TELLY)1127 (Auto Hold - Provider: Orders Generic Provider - Reason: Transfer to a procedural area)1800 (Automatically Held - Provider: Orders Generic Provider) ceFAZolin Sodium (ANCEF) injection 2 g (COMPLETED) Routine, 2 g, Intravenous, PRE-OP/PRE-PROCEDURE, Starting on Fri02/02/24 at 1134, For 1 dose, Give first dose within 1 hour PRIOR to incision. If patient weight is greater than or equal to 120 kg increase dose to 3 g., Indications: Perioperative Pharmacoprophylaxis, Pre-procedure 1232 ($Given - Provider: Tapan Decker) dorzolamide-timolol (COSOPT) ophthalmic solution 1 drop 1 drop, Right Eye, 2 TIMES DAILY, First dose on 02/01/24 at 2100 2023 ($Given - Provider: Monisha Urrutia RN) 0956 ($Given - Provider: Kina Dawson, TELLY)1127 (Auto Hold - Provider: Orders Generic Provider - Reason: Transfer to a procedural area)2099 (Automatically Held - Provider: Orders Generic Provider) furosemide (LASIX) tablet 20 mg 20 mg, Oral, DAILY, First dose on Fri02/02/24 at 0900, On hold since Fri02/01/2024 at 1611 until manually unheld 161 (Held by provider - Provider: Toño Dotson, DO - Reason: Transfer to a procedural area) 0900 (Automatically Held) imatinib (GLEEVEC) tablet 400 mg 400 mg, Oral, DAILY, First dose on 02/01/24 at 1700, Indications: Chronic Myelocytic Leukemia, Take with food and water. Do not crush May require hepatic and/or renal dose or frequency adjustments. See reference link for guidelines. 1725 (Not Given - Provider: Shonda Dozier RN - Reason: Medication not available - Comment: Sent message to pharmacy to load in [employer])2022 (Not Given - Provider: Monisha Urrutia RN - Reason: Patient/family refused - Comment: states need to take with food) 1127 (Auto Hold - Provider: Orders Generic Provider - Reason: Transfer to a procedural area)1999 (Automatically Held - Provider: Orders Generic Provider) irbesartan (AVAPRO) tablet 75 mg 75 mg, Oral, DAILY, First dose on 02/01/24 at 1630, On hold since Fri02/01/2024 at 1611 until manually unheld 161 (Held by provider - Provider: Toño Dotson, DO - Reason: Transfer to a procedural area)1630 (Automatically Held) 0900 (Automatically Held) latanoprost (XALATAN) 0.005 % ophthalmic solution 1 drop 1 drop, Right Eye, AT BEDTIME, First dose on 02/01/24 at 2200 2123 (Not Given - Provider: Monisha Urrutia RN - Reason: Patient/family refused) 112 (Auto Hold - Provider: Orders Generic Provider - Reason: Transfer to a procedural area)2199 (Automatically Held - Provider: Orders Generic Provider) mometasone (ASMANEX TWISTHALER) 220 MCG/ACT inhaler 1 puff 1 puff, Inhalation, EVERY EVENING, First dose on 02/01/24 at 1999, Rinse mouth after use. Check the dose counter on the inhaler to ensure there are doses remaining before administering. 2019 ($Given - Provider: Monisha Urrutia RN) 112 (Auto Hold - Provider: Orders Generic Provider - Reason: Transfer to a procedural area)1999 (Automatically Held - Provider: Orders Generic Provider) piperacillin-tazobactam (ZOSYN) 3.375 g vial to attach to NS 100 mL bag Routine, 3.375 g, Intravenous, EVERY 6 HOURS, First dose on 02/01/24 at 1530, Dose adjusted per renal dosing policy. Estimated CrCl = >40 mL/min. Lactated Ringer's solution is not compatible with piperacillin-tazobactam for injection., Indications: Intra-Abdominal Infection 1711 ($New Bag - Provider: Shonda Dozier RN)2317 ($New Bag - Provider: Monisha Urrutia RN) 0603 ($New Bag - Provider: Monisha Urrutia RN)1037 ($New Bag - Provider: Kina Dawson RN)1127 (Auto Hold - Provider: Orders Generic Provider - Reason: Transfer to a procedural area)1730 (Automatically Held - Provider: Orders Generic Provider)2330 (Automatically Held - Provider: Orders Generic Provider) predniSONE (DELTASONE) tablet 2 mg 2 mg, Oral, DAILY, First dose on Fri02/01/24 at 1330 1723 ($Given - Provider: Shonda Dozier RN) 0955 ($Given - Provider: Kina Dawson RN)1127 (Auto Hold - Provider: Orders Generic Provider - Reason: Transfer to a procedural area) rosuvastatin (CRESTOR) tablet 5 mg 5 mg, Oral, DAILY, First dose on Fri02/02/24 at 0900 0955 ($Given - Provider: Kina Dawson RN)1127 (Auto Hold - Provider: Orders Generic Provider - Reason: Transfer to a procedural area) sertraline (ZOLOFT) tablet 75 mg 75 mg, Oral, DAILY, First dose on Fri02/02/24 at 0900 0955 ($Given - Provider: Kina Dawsno RN)1127 (Auto Hold - Provider: Orders Generic Provider - Reason: Transfer to a procedural area) sodium chloride (PF) 0.9% PF flush 3 mL 3 mL, Intracatheter, EVERY 8 HOURS, First dose on 02/01/24 at 1330, to lock peripheral IV dormant line 1457 ($Given - Provider: Angelica Rose RN)2032 (Canceled Entry - Provider: Monisha Urrutia RN) 0603 ($Given - Provider: Monisha Urrutia RN)1127 (Auto Hold - Provider: Orders Generic Provider - Reason: Transfer to a procedural area)1330 (Automatically Held - Provider: Orders Generic Provider)2130 (Automatically Held - Provider: Orders Generic Provider) spironolactone (ALDACTONE) tablet 25 mg 25 mg, Oral, EVERY MORNING, First dose on Fri02/02/24 at 0900, On hold since Fri02/01/2024 at 1611 until manually unheld 1611 (Held by provider - Provider: Toño Dotson DO - Reason: Transfer to a procedural area) 0900 (Automatically Held) Continuous Medication Order 01/31/2024 02/01/2024 02/02/2024 lactated ringers infusion at 100 mL/hr, Intravenous, CONTINUOUS, Continue until IV catheter is weaned, PACU, Starting on Fri02/02/24 at 1530, Until Discontinued 1530 (Due) PRN Medication Order 01/31/2024 02/01/2024 02/02/2024 acetaminophen (TYLENOL) Suppository 650 mg(Linked Group 1) 650 mg, Rectal, EVERY 4 HOURS PRN, mild pain, other, and adjunct with moderate or severe pain or per patient request, Starting on 02/01/24 at 1309, Alternate with ibuprofen if ordered. Maximum acetaminophen dose from all sources = 75 mg/kg/day not to exceed 4 grams/day. 1127 (Auto Hold - Provider: Orders Generic Provider - Reason: Transfer to a procedural area) acetaminophen (TYLENOL) tablet 650 mg(Linked Group 1) 650 mg, Oral, EVERY 4 HOURS PRN, mild pain, other, and adjunct with moderate or severe pain or per patient request, Starting on 02/01/24 at 1309, Alternate with ibuprofen if ordered. Maximum acetaminophen dose from all sources = 75 mg/kg/day not to exceed 4 grams/day. 1127 (Auto Hold - Provider: Orders Generic Provider - Reason: Transfer to a procedural area) BUPivacaine 0.5% - EPINEPHrine 1:200,000 (PF) injection (CANCELED) PRN, Starting on Fri02/02/24 at 1430, Intra-procedure 1430 ($Given - Provider: Rivas Delcid MD) calcium carbonate (TUMS) chewable tablet 1,000 mg 1,000 mg, Oral, 4 TIMES DAILY PRN, heartburn, Starting on 02/01/24 at 1306 1127 (Auto Hold - Provider: Orders Generic Provider - Reason: Transfer to a procedural area) dexAMETHasone (DECADRON) injection 4 mg 4 mg, Intravenous, ONCE PRN, vomiting, nausea, Administer over 1 Minutes, Starting on Fri02/02/24 at 1504, For 1 dose, Administer ONLY if dexamethasone (DECADRON) NOT given in the OR. This is Step 2 of nausea and vomiting management. IF nausea vomiting NOT resolved within 30 minutes or dexamethasone (DECADRON) was given in the OR go to Step 3 prochlorperazine (COMPAZINE)., PACU fentaNYL (PF) (SUBLIMAZE) injection 25 mcg 25 mcg, Intravenous, EVERY 5 MIN PRN, moderate pain, Give fentaNYL (SUBLIMAZE) first if HYDROmorphone (DILAUDID) also ordered., Starting on Fri02/02/24 at 1504, Administer fentaNYL (SUBLIMAZE) for acute pain control. Move to HYDROmorphone (DILAUDID): - IF patient has received up to 200 mcg of fentaNYL (SUBLIMAZE) OR - IF patient has received 2 doses of fentaNYL (SUBLIMAZE) AND continues to have pain score greater than or equal to six (6) or is unable to participate in post op recovery due to pain. Wait 5 minutes AFTER last fentaNYL (SUBLIMAZE) dose before administering HYDROmorphone (DILADUDID). Postop Anesthesia Phase I only. Notify Provider to assess for uncontrolled pain or analgesic side effects. DO NOT revert back to fentanyl (SUBLIMAZE) after administering HYDROmorphone (DILAUDID)., PACU fentaNYL (PF) (SUBLIMAZE) injection 50 mcg 50 mcg, Intravenous, EVERY 5 MIN PRN, severe pain, Give fentaNYL (SUBLIMAZE) first if HYDROmorphone (DILAUDID) also ordered., Starting on Fri02/02/24 at 1504, Administer fentaNYL (SUBLIMAZE) for acute pain control. Move to HYDROmorphone (DILAUDID): - IF patient has received up to 200 mcg of fentaNYL (SUBLIMAZE), OR - IF patient has received 2 doses of fentaNYL (SUBLIMAZE) AND continues to have severe pain (pain score greater than or equal to seven (7) or is unable to participate in post op recovery due to pain. Wait 5 minutes AFTER last fentaNYL (SUBLIMAZE) dose before administering HYDROmorphone (DILADUDID). Postop Anesthesia Phase I only. Notify Provider to assess for uncontrolled pain or analgesic side effects. DO NOT revert back to fentanyl (SUBLIMAZE) after administering HYDROmorphone (DILAUDID)., PACU HYDROmorphone (DILAUDID) injection 0.2 mg 0.2 mg, Intravenous, EVERY 2 HOURS PRN, moderate pain, IF patient cannot take oral opioid OR IF pain not managed with non-pharmacological, non-opioid, or oral opioid interventions if ordered, Starting on Fri02/01/24 at 1310, May use concomitant with non-opioid analgesics. 1355 ($Given - Provider: Angelica Rose RN) 1127 (Auto Hold - Provider: Orders Generic Provider - Reason: Transfer to a procedural area) HYDROmorphone (DILAUDID) injection 0.2 mg 0.2 mg, Intravenous, EVERY 5 MIN PRN, moderate pain, Starting on Fri02/02/24 at 1504, Use FentaNYL (SUBLIMAZE) first if ordered. Maximum total cumulative dose NOT to exceed 2 mg. DO NOT revert back to fentanyl (SUBLIMAZE) after administering HYDROmorphone (DILAUDID). Notify Provider to assess for uncontrolled pain or analgesic side effects., PACU HYDROmorphone (DILAUDID) injection 0.4 mg 0.4 mg, Intravenous, EVERY 2 HOURS PRN, severe pain, IF patient cannot take oral opioid OR IF pain not managed with non-pharmacological, non-opioid, or oral opioid interventions if ordered, Starting on Fri02/01/24 at 1310, May use concomitant with non-opioid analgesics. 1456 ($Given - Provider: Angelica Rose RN)1654 ($Given - Provider: Shonda Dozier RN) 1127 (Auto Hold - Provider: Orders Generic Provider - Reason: Transfer to a procedural area) HYDROmorphone (DILAUDID) injection 0.4 mg 0.4 mg, Intravenous, EVERY 5 MIN PRN, severe pain, Starting on Fri02/02/24 at 1504, Use FentaNYL (SUBLIMAZE) first if ordered. Maximum total cumulative dose NOT to exceed 2 mg. DO NOT revert back to fentanyl (SUBLIMAZE) after administering HYDROmorphone (DILAUDID). Notify Provider to assess for uncontrolled pain or analgesic side effects., PACU lidocaine (LMX4) cream Topical, EVERY 1 HOUR PRN, pain, with VAD insertion, Starting on Fri02/01/24 at 1306, Apply at least 30 minutes prior to VAD insertion in divided doses as needed for size of site for insertion. MAX Dose: 2.5 g ( of 5 g tube) Do NOT give if patient has a history of allergy to any local anesthetic or any noemy product. Do NOT use both lidocaine intradermal/subcutaneous injection and the lidocaine cream on the same site. 1127 (Auto Hold - Provider: Orders Generic Provider - Reason: Transfer to a procedural area) lidocaine 1 % 0.1-1 mL 0.1-1 mL, Other, EVERY 1 HOUR PRN, mild pain with VAD insertion, Starting on 02/01/24 at 1306, MAX dose 1 mL subcutaneous OR intradermal along the side of the vein in divided doses as needed for VAD insertion. Do NOT give if patient has a history of allergy to any local anesthetic or any noemy product. Do NOT use both lidocaine intradermal/subcutaneous injection and the lidocaine cream on the same site. 1127 (Auto Hold - Provider: Orders Generic Provider - Reason: Transfer to a procedural area) naloxone (NARCAN) injection 0.1 mg 0.1 mg, Intravenous, EVERY 2 MIN PRN, opioid reversal, Starting on 02/02/24 at 1504, Notify Anesthesia Provider when administering naloxone (NARCAN) for unintended sedation or respiratory depression IF all three of the following criteria are met: 1. Respiratory rate LESS than or EQUAL to 8. 2. SaO2 is LESS than 92% and/or end-tidal CO2 is GREATER than 50. 3. Patient is receiving an opioid, has unintended sedation assessed as RASS (-4) or (-5) and patient is NOT currently on mechanical ventilation. RASS scale (-4) is deep sedation with no response to voice but movement or eye opening to physical stimulation. RASS scale (-5) is unarousable. Notify Anesthesia Provider PRIOR to administering additional opioids if naloxone (NARCAN) given. Monitor in Phase I for 2 hours after last naloxone (NARCAN) dose PRIOR to transfer to Patient Care Unit or Phase II., PACU naloxone (NARCAN) injection 0.2 mg(Linked Group 2) 0.2 mg, Intravenous, EVERY 2 MIN PRN, opioid reversal, Starting on 02/01/24 at 1320, Administer intravenous route when available and notify provider when administered. For unintended sedation or respiratory depression if all of the below criteria are met: ~ respiratory rate LESS than or EQUAL to 8. ~SaO2 less than 92% and or/end-tidal CO2 is greater than 50. ~ the patient is receiving an opioid, has unintended sedations assessed as RASS (-3), and is currently not on mechanical ventilation. RASS scale moderate (-3) is movement or eye opening to voice but no eye contact. Patient Monitoring Once the patient has demonstrated a response to the naloxone, continue to monitor respiratory rate, depth, oxygen saturation and end-tidal CO2 (if available) every 15 minutes x 2, then every 30 minutes x 2, then every 1 hour x 1 after each naloxone dose. Consider transfer to ICU if patient respiratory parameters have not improved after 4 naloxone doses. 1127 (Auto Hold - Provider: Orders Generic Provider - Reason: Transfer to a procedural area) naloxone (NARCAN) injection 0.2 mg(Linked Group 2) 0.2 mg, Intramuscular, EVERY 2 MIN PRN, opioid reversal, Starting on 02/01/24 at 1320, Administer intramuscular if an intravenous route is not available and notify provider when administered. For unintended sedation or respiratory depression if all of the below criteria are met: ~ respiratory rate LESS than or EQUAL to 8. ~SaO2 less than 92% and or/end-tidal CO2 is greater than 50. ~ the patient is receiving an opioid, has unintended sedations assessed as RASS (-3), and is currently not on mechanical ventilation. RASS scale moderate (-3) is movement or eye opening to voice but no eye contact. Patient Monitoring Once the patient has demonstrated a response to the naloxone, continue to monitor respiratory rate, depth, oxygen saturation and end-tidal CO2 (if available) every 15 minutes x 2, then every 30 minutes x 2, then every 1 hour x 1 after each naloxone dose. Consider transfer to ICU if patient respiratory parameters have not improved after 4 naloxone doses. 1127 (Auto Hold - Provider: Orders Generic Provider - Reason: Transfer to a procedural area) naloxone (NARCAN) injection 0.4 mg(Linked Group 2) 0.4 mg, Intravenous, EVERY 2 MIN PRN, opioid reversal, Starting on 02/01/24 at 1320, Administer intravenous route when available and notify provider when administered. For unintended sedation or respiratory depression if all of the below criteria are met: ~ respiratory rate LESS than or EQUAL to 8. ~ SaO2 less than 92% and or/end-tidal CO2 is greater than 50. ~ the patient is receiving an opioid, has unintended sedation assessed as RASS (-4) or (-5) and patient is currently not on mechanical ventilation. RASS scale (-4) is deep sedation with no response to voice but movement or eye opening to physical stimulation. RASS scale (-5) is unarousable. Patient Monitoring Once the patient has demonstrated a response to the naloxone, continue to monitor respiratory rate, depth, oxygen saturation and end-tidal CO2 (if available) every 15 minutes x 2, then every 30 minutes x 2, then every 1 hour x 1 after each naloxone dose. Consider transfer to ICU if patient respiratory parameters have not improved after 4 naloxone doses. 1127 (Auto Hold - Provider: Orders Generic Provider - Reason: Transfer to a procedural area) naloxone (NARCAN) injection 0.4 mg(Linked Group 2) 0.4 mg, Intramuscular, EVERY 2 MIN PRN, opioid reversal, Starting on 02/01/24 at 1320, Administer intramuscular if an intravenous route is not available and notify provider when administered. For unintended sedation or respiratory depression if all of the below criteria are met: ~ respiratory rate LESS than or EQUAL to 8. ~ SaO2 less than 92% and or/end-tidal CO2 is greater than 50. ~ the patient is receiving an opioid, has unintended sedation assessed as RASS (-4) or (-5) and patient is currently not on mechanical ventilation. RASS scale (-4) is deep sedation with no response to voice but movement or eye opening to physical stimulation. RASS scale (-5) is unarousable. Patient Monitoring Once the patient has demonstrated a response to the naloxone, continue to monitor respiratory rate, depth, oxygen saturation and end-tidal CO2 (if available) every 15 minutes x 2, then every 30 minutes x 2, then every 1 hour x 1 after each naloxone dose. Consider transfer to ICU if patient respiratory parameters have not improved after 4 naloxone doses. 1127 (Auto Hold - Provider: Orders Generic Provider - Reason: Transfer to a procedural area) ondansetron (ZOFRAN ODT) ODT tab 4 mg(Linked Group 3) 4 mg, Oral, EVERY 6 HOURS PRN, Nausea and Vomiting, Starting on 02/01/24 at 1327, Do not push through foil backing: PEEL BACK foil and GENTLY remove. Place on tongue immediately. Administration with liquid is unnecessary. With dry hands, peel back foil backing and gently remove tablet. Do not push oral disintegrating tablet through foil backing. Administer immediately on tongue and oral disintegrating tablet dissolves in seconds, then swallow with saliva. Liquid not required. 1653 (See Alternative - Provider: Shonda Dozier RN) 1127 (Auto Hold - Provider: Orders Generic Provider - Reason: Transfer to a procedural area) ondansetron (ZOFRAN ODT) ODT tab 4 mg(Linked Group 4) 4 mg, Oral, EVERY 30 MIN PRN, nausea, Starting on Fri02/02/24 at 1504, For 2 doses, Administer if NO vascular access present. This is Step 1 of nausea and vomiting management. If nausea/vomiting not resolved in 15 minutes, go to Step 2 dexamethasone (DECADRON) IV. MAX total dose = 8 mg, including OR dosing. With dry hands, peel back foil backing and gently remove tablet. Do not push oral disintegrating tablet through foil backing. Administer immediately on tongue and oral disintegrating tablet dissolves in seconds, then swallow with saliva. Liquid not required., PACU ondansetron (ZOFRAN) injection 4 mg(Linked Group 3) 4 mg, Intravenous, EVERY 6 HOURS PRN, nausea, vomiting, Administer over 2-5 Minutes, Starting on 02/01/24 at 1327 1653 ($Given - Provider: Shodna Dozier RN) 1127 (Auto Hold - Provider: Orders Generic Provider - Reason: Transfer to a procedural area) ondansetron (ZOFRAN) injection 4 mg(Linked Group 4) 4 mg, Intravenous, EVERY 30 MIN PRN, nausea, Administer over 2-5 Minutes, Starting on Fri02/02/24 at 1504, For 2 doses, This is Step 1 of nausea and vomiting management. If nausea/vomiting not resolved in 15 minutes, then go to Step 2 dexamethasone (DECADRON) IV. MAX total dose = 8 mg, including OR dosing., PACU oxyCODONE (ROXICODONE) tablet 10 mg 10 mg, Oral, EVERY 4 HOURS PRN, severe pain, IF pain not managed with non-pharmacological and non-opioid interventions, Starting on Fri02/01/24 at 1741, May use concomitant with non-opioid analgesics. 1127 (Auto Hold - Provider: Orders Generic Provider - Reason: Transfer to a procedural area) oxyCODONE (ROXICODONE) tablet 5 mg (CANCELED) 5 mg, Oral, EVERY 4 HOURS PRN, severe pain, IF pain not managed with non-pharmacological and non-opioid interventions, Starting on 02/01/24 at 1309, May use concomitant with non-opioid analgesics. 1351 ($Given - Provider: Angelica Rose RN) oxyCODONE (ROXICODONE) tablet 5 mg 5 mg, Oral, EVERY 4 HOURS PRN, moderate pain, IF pain not managed with non-pharmacological and non-opioid interventions, Starting on 02/01/24 at 1741, May use concomitant with non-opioid analgesics. 1127 (Auto Hold - Provider: Orders Generic Provider - Reason: Transfer to a procedural area) pantoprazole (PROTONIX) EC tablet 40 mg 40 mg, Oral, DAILY PRN, heartburn, Starting on 02/01/24 at 1611 1127 (Auto Hold - Provider: Orders Generic Provider - Reason: Transfer to a procedural area) polyethylene glycol (MIRALAX) Packet 17 g 17 g, Oral, 2 TIMES DAILY PRN, constipation, Starting on 02/01/24 at 1310, IF more than 1 constipation PRN medication is ordered, administer step-vuong as indicated, moving to the next step ONLY if prior step ineffective. Step 1: senna-docusate (SENOKOT-S; PERICOLACE) OR bisacodyl (DULCOLAX) EC tablet Step 2: polyethylene glycol (MIRALAX/GLYCOLAX) Step 3: bisacodyl (DULCOLAX) suppository Step 4: enema 1 Packet = 17 grams. Mix each gram with at least 1/2 ounce (15 mL) of water - 8 ounces for 17 g dose, 4 ounces for 8.5 g dose, 2 ounces for 4 g dose. Follow with the same volume of water. Hold for loose stools unless being administered as part of a bowel prep regimen or bowel clean out. 1127 (Auto Hold - Provider: Orders Generic Provider - Reason: Transfer to a procedural area) prochlorperazine (COMPAZINE) injection 5 mg 5 mg, Intravenous, EVERY 6 HOURS PRN, nausea, vomiting, Administer over 1-2 Minutes, Starting on 02/02/24 at 1504, This is Step 3 of the nausea and vomiting protocol. If nausea/vomitting not resolved in 15-30 minutes, notify Provider., PACU senna-docusate (SENOKOT-S/PERICOLACE) 8.6-50 MG per tablet 1 tablet(Linked Group 5) 1 tablet, Oral, 2 TIMES DAILY PRN, constipation, Starting on 02/01/24 at 1306, If no bowel movement in 24 hours, increase to 2 tablets by mouth. IF more than 1 constipation PRN medication is ordered, administer step-vuong as indicated, moving to the next step ONLY if prior step ineffective. Step 1: senna-docusate (SENOKOT-S; PERICOLACE) OR bisacodyl (DULCOLAX) EC tablet Step 2: polyethylene glycol (MIRALAX/GLYCOLAX) Step 3: bisacodyl (DULCOLAX) suppository Step 4: enema Hold for loose stools. 1127 (Auto Hold - Provider: Orders Generic Provider - Reason: Transfer to a procedural area) senna-docusate (SENOKOT-S/PERICOLACE) 8.6-50 MG per tablet 2 tablet(Linked Group 5) 2 tablet, Oral, 2 TIMES DAILY PRN, constipation, Starting on 02/01/24 at 1306, IF more than 1 constipation PRN medication is ordered, administer step-vuong as indicated, moving to the next step ONLY if prior step ineffective. Step 1: senna-docusate (SENOKOT-S; PERICOLACE) OR bisacodyl (DULCOLAX) EC tablet Step 2: polyethylene glycol (MIRALAX/GLYCOLAX) Step 3: bisacodyl (DULCOLAX) suppository Step 4: enema Hold for loose stools. 1127 (Auto Hold - Provider: Orders Generic Provider - Reason: Transfer to a procedural area) sodium chloride (PF) 0.9% PF flush 3 mL 3 mL, Intracatheter, EVERY 1 MIN PRN, line flush, other, to ensure patency or to lock dormant line, Starting on 02/01/24 at 1306 1127 (Auto Hold - Provider: Orders Generic Provider - Reason: Transfer to a procedural area) sodium chloride 0.9% irrigation (bag) (CANCELED) PRN, Starting on Fri02/02/24 at 1422, Intra-procedure 1422 ($Given - Provider: Rivas Delcid MD) sterile water (bottle) irrigation (CANCELED) PRN, Intra-procedure, Starting on Fri02/02/24 at 1252, Until Fri02/02/24 at 1519 1252 ($Given - Provider: Rivas Delcid MD) Linked Groups Order Group 1: acetaminophen (TYLENOL) tablet 650 mgJump to med 650 mg, Oral, EVERY 4 HOURS PRN, mild pain, other, and adjunct with moderate or severe pain or per patient request, Starting on Fri02/01/24 at 1309, Alternate with ibuprofen if ordered. Maximum acetaminophen dose from all sources = 75 mg/kg/day not to exceed 4 grams/day. Or acetaminophen (TYLENOL) Suppository 650 mgJump to med 650 mg, Rectal, EVERY 4 HOURS PRN, mild pain, other, and adjunct with moderate or severe pain or per patient request, Starting on Fri02/01/24 at 1309, Alternate with ibuprofen if ordered. Maximum acetaminophen dose from all sources = 75 mg/kg/day not to exceed 4 grams/day. Group 2: naloxone (NARCAN) injection 0.2 mgJump to med 0.2 mg, Intravenous, EVERY 2 MIN PRN, opioid reversal, Starting on Fri02/01/24 at 1320, Administer intravenous route when available and notify provider when administered. For unintended sedation or respiratory depression if all of the below criteria are met: ~ respiratory rate LESS than or EQUAL to 8. ~SaO2 less than 92% and or/end-tidal CO2 is greater than 50. ~ the patient is receiving an opioid, has unintended sedations assessed as RASS (-3), and is currently not on mechanical ventilation. RASS scale moderate (-3) is movement or eye opening to voice but no eye contact. Patient Monitoring Once the patient has demonstrated a response to the naloxone, continue to monitor respiratory rate, depth, oxygen saturation and end-tidal CO2 (if available) every 15 minutes x 2, then every 30 minutes x 2, then every 1 hour x 1 after each naloxone dose. Consider transfer to ICU if patient respiratory parameters have not improved after 4 naloxone doses. Or naloxone (NARCAN) injection 0.4 mgJump to med 0.4 mg, Intravenous, EVERY 2 MIN PRN, opioid reversal, Starting on Fri02/01/24 at 1320, Administer intravenous route when available and notify provider when administered. For unintended sedation or respiratory depression if all of the below criteria are met: ~ respiratory rate LESS than or EQUAL to 8. ~ SaO2 less than 92% and or/end-tidal CO2 is greater than 50. ~ the patient is receiving an opioid, has unintended sedation assessed as RASS (-4) or (-5) and patient is currently not on mechanical ventilation. RASS scale (-4) is deep sedation with no response to voice but movement or eye opening to physical stimulation. RASS scale (-5) is unarousable. Patient Monitoring Once the patient has demonstrated a response to the naloxone, continue to monitor respiratory rate, depth, oxygen saturation and end-tidal CO2 (if available) every 15 minutes x 2, then every 30 minutes x 2, then every 1 hour x 1 after each naloxone dose. Consider transfer to ICU if patient respiratory parameters have not improved after 4 naloxone doses. Or naloxone (NARCAN) injection 0.2 mgJump to med 0.2 mg, Intramuscular, EVERY 2 MIN PRN, opioid reversal, Starting on 02/01/24 at 1320, Administer intramuscular if an intravenous route is not available and notify provider when administered. For unintended sedation or respiratory depression if all of the below criteria are met: ~ respiratory rate LESS than or EQUAL to 8. ~SaO2 less than 92% and or/end-tidal CO2 is greater than 50. ~ the patient is receiving an opioid, has unintended sedations assessed as RASS (-3), and is currently not on mechanical ventilation. RASS scale moderate (-3) is movement or eye opening to voice but no eye contact. Patient Monitoring Once the patient has demonstrated a response to the naloxone, continue to monitor respiratory rate, depth, oxygen saturation and end-tidal CO2 (if available) every 15 minutes x 2, then every 30 minutes x 2, then every 1 hour x 1 after each naloxone dose. Consider transfer to ICU if patient respiratory parameters have not improved after 4 naloxone doses. Or naloxone (NARCAN) injection 0.4 mgJump to med 0.4 mg, Intramuscular, EVERY 2 MIN PRN, opioid reversal, Starting on 02/01/24 at 1320, Administer intramuscular if an intravenous route is not available and notify provider when administered. For unintended sedation or respiratory depression if all of the below criteria are met: ~ respiratory rate LESS than or EQUAL to 8. ~ SaO2 less than 92% and or/end-tidal CO2 is greater than 50. ~ the patient is receiving an opioid, has unintended sedation assessed as RASS (-4) or (-5) and patient is currently not on mechanical ventilation. RASS scale (-4) is deep sedation with no response to voice but movement or eye opening to physical stimulation. RASS scale (-5) is unarousable. Patient Monitoring Once the patient has demonstrated a response to the naloxone, continue to monitor respiratory rate, depth, oxygen saturation and end-tidal CO2 (if available) every 15 minutes x 2, then every 30 minutes x 2, then every 1 hour x 1 after each naloxone dose. Consider transfer to ICU if patient respiratory parameters have not improved after 4 naloxone doses. Group 3: ondansetron (ZOFRAN) injection 4 mgJump to med 4 mg, Intravenous, EVERY 6 HOURS PRN, nausea, vomiting, Administer over 2-5 Minutes, Starting on 02/01/24 at 1327 Or ondansetron (ZOFRAN ODT) ODT tab 4 mgJump to med 4 mg, Oral, EVERY 6 HOURS PRN, Nausea and Vomiting, Starting on 02/01/24 at 1327, Do not push through foil backing: PEEL BACK foil and GENTLY remove. Place on tongue immediately. Administration with liquid is unnecessary. With dry hands, peel back foil backing and gently remove tablet. Do not push oral disintegrating tablet through foil backing. Administer immediately on tongue and oral disintegrating tablet dissolves in seconds, then swallow with saliva. Liquid not required. Group 4: ondansetron (ZOFRAN ODT) ODT tab 4 mgJump to med 4 mg, Oral, EVERY 30 MIN PRN, nausea, Starting on Fri02/02/24 at 1504, For 2 doses, Administer if NO vascular access present. This is Step 1 of nausea and vomiting management. If nausea/vomiting not resolved in 15 minutes, go to Step 2 dexamethasone (DECADRON) IV. MAX total dose = 8 mg, including OR dosing. With dry hands, peel back foil backing and gently remove tablet. Do not push oral disintegrating tablet through foil backing. Administer immediately on tongue and oral disintegrating tablet dissolves in seconds, then swallow with saliva. Liquid not required., PACU Or ondansetron (ZOFRAN) injection 4 mgJump to med 4 mg, Intravenous, EVERY 30 MIN PRN, nausea, Administer over 2-5 Minutes, Starting on 02/02/24 at 1504, For 2 doses, This is Step 1 of nausea and vomiting management. If nausea/vomiting not resolved in 15 minutes, then go to Step 2 dexamethasone (DECADRON) IV. MAX total dose = 8 mg, including OR dosing., PACU Group 5: senna-docusate (SENOKOT-S/PERICOLACE) 8.6-50 MG per tablet 1 tabletJump to med 1 tablet, Oral, 2 TIMES DAILY PRN, constipation, Starting on 02/01/24 at 1306, If no bowel movement in 24 hours, increase to 2 tablets by mouth. IF more than 1 constipation PRN medication is ordered, administer step-vuong as indicated, moving to the next step ONLY if prior step ineffective. Step 1: senna-docusate (SENOKOT-S; PERICOLACE) OR bisacodyl (DULCOLAX) EC tablet Step 2: polyethylene glycol (MIRALAX/GLYCOLAX) Step 3: bisacodyl (DULCOLAX) suppository Step 4: enema Hold for loose stools. Or senna-docusate (SENOKOT-S/PERICOLACE) 8.6-50 MG per tablet 2 tabletJump to med 2 tablet, Oral, 2 TIMES DAILY PRN, constipation, Starting on 02/01/24 at 1306, IF more than 1 constipation PRN medication is ordered, administer step-vuong as indicated, moving to the next step ONLY if prior step ineffective. Step 1: senna-docusate (SENOKOT-S; PERICOLACE) OR bisacodyl (DULCOLAX) EC tablet Step 2: polyethylene glycol (MIRALAX/GLYCOLAX) Step 3: bisacodyl (DULCOLAX) suppository Step 4: enema Hold for loose stools. 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 documented as of this encounter Care Teams Trolley Operator Relationship Specialty Start Date End Date Jasmin Maradiaga PA-C [address] [place] [address] PCP - General Family Medicine 03/16/21 Hector Goode MD [address] [place] [address] Neurology 05/01/17 John Cancino MD [address] [place] [address] Family Medicine - Sports Medicine 07/30/17 Jasmin Maradiaga PA-C [address] [place] [address] Assigned PCP 10/20/21 Carl Farah MD [address] [place] [phone] Assigned Heart and Vascular Provider 05/18/22 Hector Goode MD [address] [place] [address] Assigned Neuroscience Provider 07/01/23 documented as of this encounter
--- OUTSIDE RECORDS SUMMARY | 2024-02-02 15:46 | XMS_ITS | Encounter Summary ---
Author Organization [place] Address [address] 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 Gender Identity Not on file Sexual Orientation Not on file documented as of this encounter Plan of Treatment Upcoming Encounters Date Type Department Care Team (Late st Contact Info) Description 06/14/2024 1:00 PM CDT Office Visit [facility] [address] [place] [phone] Hector Goode MD [address] [place] [address] [id number] [address] Scheduled Procedures Name Priority Associated Diagnoses Date/Ti me CHOLECYSTECTOMY, LAPAROSCOPIC Cholecystitis Choledocholithiasis with acute cholecystitis 02/02/2024 12:27 PM PREPARATORY TECHNICIAN ENDOSCOPIC RETROGRADE CHOLANGIOPANCREATOGRAPHY, COMPLEX Cholecystitis Choledocholithiasis with acute cholecystitis 02/02/2024 12:27 PM PREPARATORY TECHNICIAN ENDOSCOPIC ULTRASOUND, ESOPHAGOSCOPY / UPPER GASTROINTESTINAL TRACT (GI) Cholecystitis Choledocholithiasis with acute cholecystitis 02/02/2024 12:27 PM PREPARATORY TECHNICIAN ENDOSCOPIC RETROGRADE CHOLANGIOPANCREATOGRAPHY, COMPLEX Cholecystitis Choledocholithiasis with acute cholecystitis documented as of this encounter Visit Diagnoses Not on filedocumented in this encounter Additional Health Concerns Assessment Noted Time PHQ-9 Depression Total Score: 8 04/30/19 24 2:24 PM 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 documented as of this encounter Care Teams Opto Mechanical Technician Relationship Specialty Start Date End Date Jasmin Maradiaga PA-C [address] [place] [address] PCP - General Family Medicine 03/16/21 Hector Goode MD [address] [address] Neurology 05/01/17 John Cancino MD [address] [place] [address] Family Medicine - Sports Medicine 07/30/17 Jasmin Maradiaga PA-C [address] [place] [address] Assigned PCP 10/20/21 Carl Farah MD [address] [place] [phone] Assigned Heart and Vascular Provider 05/18/22 Hector Goode MD [address] [place] [address] Assigned Neuroscience Provider 07/01/23 documented as of this encounter
--- OUTSIDE RECORDS SUMMARY | 2024-02-02 15:46 | XMS_ITS | Encounter Summary ---
Author Organization [place] Address [facility] [facility] [place] [address] Care Team Providers Care Iron Installer Name Role Phone Hector Goode MD Unavailable John Cancino MD Unavailable [phone] Jasmin Maradiaga PA-C Primary Care Provid er Jasmin Maradiaga PA-C Unavailable + [phone] Carl Farah MD Unavailable [phone] Hector Goode MD Unavailable Encounter Details Date Type Department Care Team (Late st Contact Info) Description 10/16/2022 [facility] [address] [place] [address] Carl Farah MD [address] [facility] [address] [place] [address] Social History Tobacco Use Types [...] on file 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 No / Unsure 10/15/2022 9:11 AM CDT documented as of this encounter Miscellaneous Notes * Telephone Encounter - Arelis Calderon MA - 10/16/2022 3:42 PM CDT [facility] Call Center Phone Message May a [...] Description 06/14/2024 1:00 PM CDT Office Visit [facility] [address] [place] [address] Hector Goode MD [address] [place] [address] [id number] [place], [place] [phone] Scheduled Procedures Name Priority Associated Diagnoses Date/Ti me CHOLECYSTECTOMY, LAPAROSCOPIC Cholecystitis Choledocholithiasis with acute cholecystitis 02/02/2024 12:27 PM RUFFLING HEMMER AUTOMATIC ENDOSCOPIC RETROGRADE CHOLANGIOPANCREATOGRAPHY, COMPLEX Cholecystitis Choledocholithiasis with acute cholecystitis 02/02/2024 12:27 PM RUFFLING HEMMER AUTOMATIC ENDOSCOPIC ULTRASOUND, ESOPHAGOSCOPY / UPPER GASTROINTESTINAL TRACT (GI) Cholecystitis Choledocholithiasis with acute cholecystitis 02/02/2024 12:27 PM RUFFLING HEMMER AUTOMATIC ENDOSCOPIC RETROGRADE CHOLANGIOPANCREATOGRAPHY, COMPLEX Cholecystitis Choledocholithiasis with acute cholecystitis documented as of this encounter Visit Diagnoses Not on filedocumented in this encounter Care Teams Iron Installer Relationship Specialty Start Date End Date Jasmin Maradiaga PA-C [address] [place] [address] PCP - General Family Medicine 03/16/21 Hector Goode MD [address] [place] [address] Neurology 05/01/17 John Cancino MD [address] [place] [address] Family Medicine - Sports Medicine 07/30/17 Jasmin Maradiaga PA-C [address] [address] Assigned PCP 10/20/21 Carl Farah MD [address] [place] [phone] Assigned Heart and Vascular Provider 05/18/22 Hector Goode MD [address] [place] [id number] [place] [address] Assigned Neuroscience Provider 07/01/23 documented as of this encounter
--- OUTSIDE RECORDS SUMMARY | 2024-02-02 15:46 | XMS_ITS | Encounter Summary ---
Author Organization [facility] Address Count includes the [facility] [place] [address] Care Team Providers Care Pad Assembler Name Role Phone Hector Goode MD Unavailable John Cancino MD Unavailable [phone] Jasmin Maradiaga PA-C Primary Care Provid er Jasmin Maradiaga PA-C Unavailable + [phone] Carl Farah MD Unavailable [phone] Hector Goode MD Unavailable Reason for Referral * Diagnostic Imaging Ultrasound (Routine) - Pending Review Specialty Diagnoses / Procedures Referred By Contkeisha t Referred To Contact Diagnoses Hematuria, unspecified type Personal history of malignant neoplasm of bladder Vaginal bleeding Procedures US Transvaginal Pelvic Non-OB Gavi Cloud MD [address] [place] [address] Phone: tel: fax: [facility] [id number] [place], [place] [address] [address] Phone: tel: Referral ID Status Reason Start Date Expiration Date V isits Requested Visits Authorized [id number] Pending Review 01/07/2024 01/06/2025 1 1 * Diagnostic Imaging Other (Routine: Next available opening) - Pending Review Specialty Diagnoses / Procedures Referred By Jeremiah johnson Referred To Contact Diagnoses Hematuria, unspecified type Personal history of malignant neoplasm of bladder Vaginal bleeding Gavi Cloud MD [address] [place] [address] Phone: tel: fax: [facility] [id number] [place], [place] [address]Whitmiredandy Martinez [address] [place] [address] Phone: tel: Referral ID Status Reason Start Date Expiration Date V isits Requested Visits Authorized [id number] Pending Review 01/07/2024 01/06/2025 1 1 Question Answer Preferred Location: Other (External) - Use Comments Comments Prior authorization is required for MRI/MRA, CT, Dexa Scans and Worker's Compensation cases. [facility] Yumiko Hancock [address] [facility] [address] [place] [address] -- appt line [phone] -- fax Other (External) - Use Comments * Consultation (Routine: Next available opening) - Pending Review Specialty Diagnoses / Procedures Referred By Jeremiah johnson Referred To Contact glass crusher Diagnoses Hematuria, unspecified type Personal history of malignant neoplasm of bladder Other fatigue Genital atrophy of female Gavi Cloud MD [address] [place] [address] Phone: tel: fax: [facility] [address] Ayaan Martinez [address] [place] [address] Phone: tel: Referral ID Status Reason Start Date Expiration Date V isits Requested Visits Authorized [id number] Pending Review 01/07/2024 01/06/2025 1 1 Comments Please be aware that coverage of these services is subject to the terms and limitations of your health insurance plan. Call member services at your health plan with any benefit or coverage questions. [facility] PKurt [address] [facility] [address] [place] [address] -- appt line [phone] -- fax * Consultation (Routine: Next available opening) - Pending Review Specialty Diagnoses / Procedures Referred By Contac t Referred To Contact Urology Diagnoses Hematuria, unspecified type Personal history of malignant neoplasm of bladder Other fatigue Genital atrophy of female Gavi Cloud MD [address] [place] [address] Phone: tel: fax: [facility] L[facility]TE [facility] [address] [place] [phone] Phone: tel: Referral ID Status Reason Start Date Expiration Date V isits Requested Visits Authorized [id number] Pending Review 01/07/2024 01/06/2025 1 1 Comments Please be aware that coverage of these services is subject to the terms and limitations of your health insurance plan. Call member services at your health plan with any benefit or coverage questions. [facility] [address] [place] [address] -- appt line [phone] -- fax Reason for Visit * Reason Comments UTI Urinary incontinence , dark color to urine, history of bladder cancer 15 years ago Encounter Details Date Type Department Care Team (Late st Contact Info) Description 01/07/2024 2:45 PM CDT Office Visit [facility] [address] [place] [phone] Gavi Cloud MD [address] [place] [address] Urinary symptom or sign (Primary Dx); Hematuria, [...] on file Legal Sex Female 2:58 AM [employer] Gender Identity Not on file Sexual Orientation [...] neoplasm of bladder Relevant Orders Adult Urology Car Wash Supervisor Referral - To a [facility] Location (Use POS/Location) Building Construction Supervisor Car Wash Supervisor Referral - To a [facility] Location (Use POS/Location) Radiology Referral (Affiliate Use Only) US Transvaginal Pelvic Non-OB Other Visit Diagnoses Urinary symptom or sign - Primary Relevant Orders URINALYSIS, ROUTINE ([facility]) (Completed) URINE CULTURE AEROBIC BACTERIAL ([facility]) Hematuria, unspecified type Relevant Orders URINE CULTURE AEROBIC BACTERIAL ([facility]) Adult Urology Car Wash Supervisor Referral - To a [facility] Location (Use POS/Location) Building Construction Supervisor Car Wash Supervisor Referral - To a [facility] Location (Use POS/Location) Radiology Referral (Affiliate Use Only) US Transvaginal Pelvic Non-OB Other fatigue Relevant Orders VENOUS COLLECTION (Completed) HEMOGRAM PLATELET DIFF ([facility]) (Completed) Comprehensive Metobolic Panel ([facility]) Adult Urology Car Wash Supervisor Referral - To a [facility] Location (Use POS/Location) Building Construction Supervisor Car Wash Supervisor Referral - To a [facility] Location (Use POS/Location) Genital atrophy of female Relevant Orders Adult Urology Car Wash Supervisor Referral - To a [facility] Location (Use POS/Location) Building Construction Supervisor Car Wash Supervisor Referral - To a [facility] Location (Use POS/Location) Vaginal bleeding Relevant Orders [...] CULTURE AEROBIC BACTERIAL ([facility]) - Adult Urology Car Wash Supervisor Referral - To a [facility] Location (Use POS/Location) - Building Construction Supervisor Car Wash Supervisor Referral - To a [facility] Location (Use POS/Location) - Radiology Referral (Affiliate Use Only) - US Transvaginal Pelvic Non-OB 3. Personal history of malignant neoplasm of bladder See above. - Adult Urology Car Wash Supervisor Referral - To a [facility] Location (Use POS/Location) - Building Construction Supervisor Car Wash Supervisor Referral - To a [facility] Location (Use POS/Location) - Radiology Referral (Affiliate Use Only) - US Transvaginal Pelvic Non-OB 4. Other fatigue Check labs. - VENOUS COLLECTION - HEMOGRAM PLATELET DIFF (BFP) - Comprehensive Metobolic Panel ([facility]) - Adult Urology Car Wash Supervisor Referral - To a [facility] Location (Use POS/Location) - Building Construction Supervisor Car Wash Supervisor Referral - To a [facility] Location (Use POS/Location) 5. 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 - Adult Urology Car Wash Supervisor Referral - To a [facility] Location (Use POS/Location) - Building Construction Supervisor Car Wash Supervisor Referral - To a [facility] Location (Use POS/Location) 6. Vaginal bleeding See above, unclear if vagina bleeding. - Radiology Referral (Affiliate Use Only) - US Transvaginal Pelvic Non-OB FUTURE APPOINTMENTS: - Follow-up visit as needed. Also should see urology and gynecology. We manage her chronic medical care. No follow-ups on file. Gavi Cloud MD [facility] Subjective Nursing Notes: Estephania Loaiza [...] for today's visit only Yes, phone # [phone] Griselda Lai is a 79 year old [...] Urine Neg Ketones Urine Neg mg/dL Specific [place] Urine 1.020 Blood Urine Large (A) pH [...] for today's visit only Yes, phone # [phone] documented in this encounter Plan of Treatment Upcoming Encounters Date Type Department Care Team (Late st Contact Info) Description 06/14/2024 1:00 PM CDT Office Visit [facility] [address] [place] [address] Hector Goode MD [address] [place] [address] [id number] [place], [place] [id number] Scheduled Orders Name Type Priority Associated Diagnoses Orde r Schedule US Transvaginal Pelvic Non-OB Imaging Routine Hematuria, unspecified type Personal history of malignant neoplasm of bladder Vaginal bleeding Ordered: 01/07/2024 Scheduled Procedures Name Priority Associated Diagnoses Date/Ti me CHOLECYSTECTOMY, LAPAROSCOPIC Cholecystitis Choledocholithiasis with acute cholecystitis 02/02/2024 12:27 PM TRA[employer] ENDOSCOPIC RETROGRADE CHOLANGIOPANCREATOGRAPHY, COMPLEX Cholecystitis Choledocholithiasis with acute cholecystitis 02/02/2024 12:27 PM [employer] ENDOSCOPIC ULTRASOUND, ESOPHAGOSCOPY / UPPER GASTROINTESTINAL TRACT (GI) Cholecystitis Choledocholithiasis with acute cholecystitis 02/02/2024 12:27 PM TRA[employer]ENA[employer] ENDOSCOPIC RETROGRADE CHOLANGIOPANCREATOGRAPHY, COMPLEX Cholecystitis Choledocholithiasis with acute cholecystitis Scheduled Referrals Name Type Priority Associated Diagnoses Orde r Schedule Adult Urology Car Wash Supervisor Referral - To a [facility] Location (Use POS/Location) Referral Routine: Next available opening Hematuria, unspecified type Personal history of malignant neoplasm of bladder Other fatigue Genital atrophy of female Ordered: 01/07/2024 Building Construction Supervisor Car Wash Supervisor Referral - To a [facility] Location (Use POS/Location) Referral Routine: [...] OODALE Comment: CULTURE, URINE, ROUTINE Micro Number: [id number] Test Status: Final Specimen Source: Urine Specimen Quality: Adequate Result: No Growth Urine 01/07/2024 3:21 PM CDT 01/08/2024 6:22 AM CDT Narrative Resulting Agency Comment Performing Organization Information: CB [facility] [address] [place] [address] Serafin Tse Gavi Cloud MD LAB - NON-BEAKER NON-BLOOD F inal Result [facility] [address] [place] [address], [facility] [phone] * (ABNORMAL) Comprehensive Metobolic Panel ([facility]FP) (01/07/2024) [...] LABS Final Result [facility] [address] [place] [address] [place] [phone] * (ABNORMAL) HEMOGRAM PLATELET DIFF (BFP) [...] Blood 01/07/2024 Gavi Cloud MD LAB - NON-[facility] BLOOD LABS Final Result [facility] [address] [place] [phone] * (ABNORMAL) URINALYSIS, ROUTINE ([facility]) (01/07/2024) Pathologist [facility] Color Urine Yellow [facility] Appearance Urine Slightly Cloudy(A) [facility] Glucose Urine Neg mg/dL [facility] Bilirubin Urine Neg [facility] Ketones Urine Neg mg/dL [facility] Specific [place] Urine 1.020 [facility] Blood Urine Large(A) [...] F inal Result [facility] [address] [place] [phone] documented in this encounter Visit Diagnoses [...] Total Score: 8 04/30/19 24 2:24 PM [employer] documented as of this encounter Care Teams Pad Assembler Relationship Specialty Start Date End Date Jasmin Maradiaga PA-C [address] [address] PCP - General Family Medicine 03/16/21 Hector Goode MD [address] [place] [address] Neurology 05/01/17 John Cancino MD [address] [place] [address] Family Medicine - Sports Medicine 07/30/17 Jasmin Maradiaga PA-C [address] [address] Assigned PCP 10/20/21 Carl Farah MD [address] [facility] [address] [place] [phone] Assigned Heart and Vascular Provider 05/18/22 Hector Goode MD [id number] [place] [address] Assigned Neuroscience Provider 07/01/23 documented as of this encounter
--- OUTSIDE RECORDS SUMMARY | 2024-02-02 15:46 | XMS_ITS | Encounter Summary ---
Author Organization [facility] Address [address] [place] [address]. [place] [address] Care Team Providers Care Risk Assessment Consultant Name Role Phone Hector Goode MD Unavailable John Cancino MD Unavailable [phone] Jasmin Maradiaga PA-C Primary Care Provid er Jasmin Maradiaga PA-C Unavailable + [phone] Carl Farah MD Unavailable [phone] Hector Goode MD Unavailable Reason for Visit * Auth/Cert Specialty Diagnoses / Procedures Referred By Jeremiah t Referred To Contact Med Surg Diagnoses Acute cholecystitis, jaundice, slight hypoxia [facility] [address] [address] Phone: tel: fax: Referral ID Status Reason Start Date Expiration Date Visits Re quested Visits Authorized [id number] 1 1 Encounter Details Date Type Department Care Team (Latest Contact Info) Description 02/01/2024 12:06 PM JOB PRESS OPERATOR - Present Hospital Encounter [facility] PACU [address] [phone] Delroy Hagen MD [address] [id number] Toño Dotson, DO [address], [address] [id number] Cholecystitis (Primary Dx); Choledocholithiasis with acute cholecystitis Social History Tobacco Use Types Packs/Day Years [...] Answer Date Recorded Do you have housing? (Robertoin g is defined as stable permanent housing and does not include staying ouside in a car, in a tent, in an abandoned building, in an overnight mcc, or couch-surfing.) Yes 02/02/2024 Are you worried [...] on file Legal Sex Female 2:58 AM JOB PRESS OPERATOR Gender Identity Not on file Sexual Orientation Not on file documented as of this encounter Last Filed Vital Signs Vital Sign Reading Time Taken Comments Blood Pressure 121/65 02/02/2024 3:30 PM JOB PRESS OPERATOR Pulse 71 02/02/2024 3:30 PM JOB PRESS OPERATOR Temperature 36.1 C (97 F) 02/02/2024 3:19 PM JOB PRESS OPERATOR Respiratory Rate 13 02/02/2024 3:30 PM JOB PRESS OPERATOR Oxygen Saturation 100% 02/02/2024 3:30 PM JOB PRESS OPERATOR Inhaled Oxygen Concentration - - Weight 112.5 kg (248 lb) 02/02/2024 12:06 PM JOB PRESS OPERATOR Height 162.6 cm (5' 4) 02/02/2024 12:06 PM JOB PRESS OPERATOR Body Mass Index 42.57 02/02/2024 12:06 PM JOB PRESS OPERATOR documented in this encounter Progress Notes * Carlito Rees DO - 02/02/2024 3:32 PM CST Hospitalist update note Attempted to see the patient but down in OR this afternoon. Continue plan as outlined in previous notes. Will assess patient tomorrow AM Carlito Rees DO Hospitalist PRESS OPERATOR * Kina Dawson RN - 02/02/2024 10:30 AM CST Report given to Pre-Op RN. CHG wipes done, patient voided in BR. OR staff to come fruit picker patient around 11:10am. Continue plan of Care. PRESS OPERATOR * Jono Caal MD - 02/01/2024 7:15 PM CST General surgery chart note Patient presents to [facility] from outside hospital given complicated gallstone disease with jaundice likely secondary to choledocholithiasis. GI has evaluated and plans for EUS/ERCP in the morning. Will follow along and offer cholecystectomy when appropriate. PRESS OPERATOR * Mariama Cain MD - 02/01/2024 9:49 AM CST Transfer Type: [facility] Transfer Triage Note Date of call: 02/01/24 Time of call: 9:49 AM Current Patient Location: [facility], Dr. Pérez Vitals: BP:163/96, afebrile HR: 90s [...] Telemetry Needed: Med (Remote) Telemetry Arrival Location: [facility] Additional: Request images pushed to PACS before transfer. Provider to reach out if pending troponin results abnormally. Mariama Cain MD PRESS OPERATOR PRESS OPERATOR documented in this encounter H&P Notes * Toño Dotson, DO - 02/01/2024 12:23 PM CST [facility] History and Physical - Hospitalist Service Date [...] 2-4 Days Toño Dotson DO Hospitalist Service [facility] Securely message with [employer] (more info) Text page via [facility] Paging/Directory Chief Complaint Abdominal pain nausea and [...] She presented to her local hospital in [facility]. 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 Dr Bautista Pulvin Subdural hemorrhage (H) 2006 while on coumadin [...] previous visit (from the past 24 hours). PRESS OPERATOR PRESS OPERATOR PRESS OPERATOR PRESS OPERATOR documented in this encounter Consult Notes * Rivas Delcid MD - 02/02/2024 10:34 AM CSTAssociated Order(s): SURGERY GENERAL IP CONSULT [facility] General Surgery Consultation Griselda Lai Date of : 1945 Age: [age] year old Date of Admission: 02/01/2024 Date of Consult: 02/02/2024 Assessment and Plan: Griselda Lai is a 79 year old female who was transferred from [facility] for acute cholecystitis with obstructive choledocholithiasis. [...] request of Dr. Pérez who presented to [place] [facility] for abdominal pain, nausea, and vomiting. She reports she had not been feeling well for a few days with waxing and waning pain but it got significantly worse yesterdayafter eating. Workup in [place] showed elevated liver enzymes, with hyperbilirubinemia and [...] bowel syndrome LBBB (left bundle branch block) long-term (current) use of anticoagulants 01/31/2004 off coumadin [...] Sleep apnea DPAP-central and obst. Dr Bautista Pulvin Subdural hemorrhage (H) 2006 while on coumadin [...] 81 mg 81 mg Oral Daily Toño Dotson, DO betaxolol (BETOPTIC) 0.5 % ophthalmic solution 1 drop 1 drop Right Eye BID Toño Dotson, carvedilol (COREG) tablet 12.5 mg 12.5 mg Oral BID w/meals Toño Dotson, DO 12.5 mg at 02/02/24 1000 dorzolamide-timolol (COSOPT) ophthalmic solution 1 drop 1 drop Right Eye BID Toño Dotson, DO 1 drop at 02/02/24 0956 [Held by provider] furosemide (LASIX) tablet 20 mg 20 mg Oral Daily Toño Dotson, DO imatinib (GLEEVEC) tablet 400 mg 400 mg Oral Daily Toño Dotson, DO [Held by provider] irbesartan (AVAPRO) tablet 75 mg 75 mg Oral Daily Toño Dotson, DO latanoprost (XALATAN) 0.005 % ophthalmic solution 1 drop 1 drop Right Eye At Bedtime Toño Dotson, mometasone (ASMANEX TWISTHALER) 220 MCG/ACT inhaler 1 puff 1 puff Inhalation QPM Toño Dotson, 1 puff at 02/01/242019 piperacillin-tazobactam (ZOSYN) 3.375 g vial to attach [...] mg 75 mg Oral Daily Toño Dotson, DO 75 mg at 02/02/24 0955 sodium chloride (PF) 0.9% PF flush 3 mL 3 mL Intracatheter Q8H Toño Dotson, DO 3 mL at11/25/24 0603 [Held by provider] spironolactone (ALDACTONE) tablet [...] mg 0.4 mg Intravenous Q2H PRN Toño Dotson DO 0.4 mg at 02/01/24 1654 lidocaine (LMX4) [...] mg 4 mg Intravenous Q6H PRN Toño Dotson DO 4 mg at 02/01/24 1653 Or ondansetron [...] Medication Sig Last Dose Taking? Auth Provider Senior Care End Date aspirin 81 MG EC tablet [...] mg) by mouth daily 01/31/2024 Morning Yes Lewis Macias MD Yes spironolactone (ALDACTONE) 25 MG [...] dilated duct with cholelithiasis and distended gallbladder. PRESS OPERATOR PRESS OPERATOR * David Barba MD - 02/01/2024 4:30 [...] and ERCP in AM [facility] PR[facility]PERATOR documented in this encounter Miscellaneous Notes * Brief Op Note - Morgan Montano PA-C - 02/02/2024 2:50 PM CST [facility] Brief Operative Note Pre-operative diagnosis: Cholecystitis [K81.9] [...] check labs in am. Bharath Montano PA-C [phone] PRESS OPERATOR * Op Note - Rivas Delcid MD - 02/02/2024 2:35 PM CST General Surgery Operative Note PREOPERATIVE DIAGNOSIS: Acute cholecystitis with choledocholithiasis POSTOPERATIVE DIAGNOSIS: Same PROCEDURE: LAPAROSCOPIC CHOLECYSTECTOMY ANESTHESIA: General SURGEON: Rivas Delcid MD MEMBER CERTIFICATION MANAGER: Morgan Montano PA-C assisted in the above procedure. They provided assistance with pre-operative positioning, prepping, and draping of the patient. The virtual assistant for advertisers provided vital operative assistance with retraction using [...] dissected out using blunt dissection with suction eeg tech and electrocautery. Once the infundibulum was identified, [...] site. The fascia was reapproximated using a [id number] 0 Vicryl stitch and the Ihsan-Sharon fascial [...] DRAINS: None CONDITION: Stable Rivas Delcid MD PRESS OPERATOR * Plan of Care - Monisha Urrutia RN - 02/02/2024 6:30 AM CST Goal Outcome Evaluation: Summary: Trauma/Ortho/Medical (Choose one) Medical Diagnosis: Gall stones, Mental Status: 4 Activity/dangle up with SBA of 1 walker Diet: NPO Pain: denies pain Winter/Voiding: BR Tele/Restraints/Iso: n/a 02/LDA: CPAP at night D/C Date: TBD Other Info: EUS and ERCP in Am PRESS OPERATOR * Plan of Care - Angelica Rose RN - 02/01/2024 7:03 PM CST Patient arrived from [facility] today. A&O x4, VSS on RA. [...] care. Plan for EUS and ERCP Friday. PRESS OPERATOR * Provider Notification - Shonda Rico RN - 02/01/2024 5:40 PM JOB PRESS OPERATOR Pt's pain is not being relieved despite giving oxycodone and dilaudid IV. Web paged to see if an increase in oxycodone would help. Awaiting call back/new orders. Will continue to monitor pt. PRESS OPERATOR * Plan of Care - Shonda Rico RN - 02/01/2024 5:33 PM CST Goal Outcome Evaluation: [id number] Trauma/Ortho/Medical (Choose one) Medical Diagnosis: Gall stones, ERCP? Mental Status: 4 Activity/dangle up with SBA of 1 walker Diet: NPO Pain: Dilaudid, oxy Winter/Voiding: BR Tele/Restraints/Iso: n/a 02/LDA: 2L D/C Date: TBD Other Info:GI yet to see pt. PRESS OPERATOR * Pharmacy-Admission Medication History - Baljit Morrison RPH - 02/01/2024 2:03 PM CST Pharmacist Admission Medication History Admission medication history is complete. The information provided in this note is only as accurateas the sources available at the time of the update. Information Source(s): Patient via in-person Pertinent Information: Changes made to BUS COMPANY MANAGER medication list: Added: None Deleted: None Changed: Modified several entries to facilitate mapping products to orderes Allergies reviewed with patient and updates made in EHR: no Medication History Completed By: Baljit Morrison RPH 02/01/2024 2:04 PM BUS COMPANY MANAGER Med List Medication Sig Note Last Dose/Taking [...] 1 tablet by mouth daily. 01/31/2024 Morning PRESS OPERATOR documented in this encounter Plan of Treatment Upcoming Encounters Date Type Department Care Team (Late st Contact Info) Description 06/14/2024 1:00 PM CDT Office Visit [facility] [address] [place] [address] Hector Goode MD [address] [place] [address] [id number] [place] [address] Scheduled Orders Name Type Priority Associated Diagnoses [...] Choledocholithiasis with acute cholecystitis 02/02/2024 12:27 PM JOB PRESS OPERATOR ENDOSCOPIC RETROGRADE CHOLANGIOPANCREATOGRAPHY, COMPLEX Cholecystitis Choledocholithiasis with acute cholecystitis 02/02/2024 12:27 PM JOB PRESS OPERATOR ENDOSCOPIC ULTRASOUND, ESOPHAGOSCOPY / UPPER GASTROINTESTINAL TRACT (GI) Cholecystitis Choledocholithiasis with acute cholecystitis 02/02/2024 12:27 PM JOB PRESS OPERATOR ENDOSCOPIC RETROGRADE CHOLANGIOPANCREATOGRAPHY, COMPLEX Cholecystitis Choledocholithiasis with acute cholecystitis documented as of this encounter Procedures * The patient is currently admitted. The information in this section might not be complete until the patient is discharged. Procedure Name Priority Date/Time Associated Diagnosis Comments XR SURGERY ROBBY FLUORO LESS THAN 5 MIN W STILLS Routine 02/02/2024 3:23 PM JOB PRESS OPERATOR RBC AND PLATELET MORPHOLOGY Routine 02/02/2024 10:22 AM JOB PRESS OPERATOR CBC WITH PLATELETS AND DIFFERENTIAL Routine 02/02/2024 10:22 AM JOB PRESS OPERATOR CBC WITH PLATELETS & DIFFERENTIAL Routine 02/02/2024 10:22 AM JOB PRESS OPERATOR COMPREHENSIVE METABOLIC PANEL Routine 02/02/2024 10:22 AM JOB PRESS OPERATOR US ABDOMEN LIMITED STAT 02/02/2024 9: 31 AM JOB PRESS OPERATOR LACTIC ACID WHOLE BLOOD WITH 1X REPEAT IN 2 HR WHEN >2 STAT 02/01/2024 2:27 PM JOB PRESS OPERATOR HEPATIC FUNCTION PANEL Routine 2:27 PM JOB PRESS OPERATOR COMPREHENSIVE METABOLIC PANEL Add-On 02/01/2024 2:27 PM JOB PRESS OPERATOR EKG 12-LEAD, TRACING ONLY STAT 02/01/2024 1:19 PM JOB PRESS OPERATOR documented in this encounter Results * XR Surgery ROBBY Fluoro Less Than 5 Min w Stills (02/02/2024 3:23 PM JOB PRESS OPERATOR) Narrative RADIANT - 02/02/2024 3:24 PM JOB PRESS OPERATOR This exam was marked as non-reportable because it will not be read by a radiologist or a [facility] non-radiologist provider. Delroy Hagen MD [facility] DIAGNOSTIC IMAGING ORDERABLE S Final Result [facility] * RBC and Platelet Morphology (02/02/2024 10:22 AM JOB PRESS OPERATOR) RBC Morphology Confirmed RBC Indices 02/02/2024 1:18 PM JOB PRESS OPERATOR LABORATORY Platelet Assessment Automated Count Confirmed. Platelet morphology is normal. Automated Count Confirmed. Platelet morphology is normal. [facility] 02/02/2024 1:18 PM JOB PRESS OPERATOR LABORATORY Blood STRUCTURE OF RIGHT HAND / Unknown Venipuncture / Unknown 02/02/2024 10:22 AM JOB PRESS OPERATOR 02/02/2024 10:36 AM JOB PRESS OPERATOR us Toño Dotson DO LAB - BLOOD ORDERABLE S Final Result LABORATORY [facility] [address], [address] [place] [address], [place] [phone] * (ABNORMAL) CBC with platelets and differential (02/02/2024 10:22 AM JOB PRESS OPERATOR) WBC Count 9.0 4.0 - 11.0 10e3/uL 02/02/2024 1:18 PM JOB PRESS OPERATOR LABORATORY RBC Count 3.70(L) 3.80 - 5.20 10e6/uL 02/02/2024 1:18 PM JOB PRESS OPERATOR SH LABORATORY Hemoglobin 12.7 11.7 - 15.7 g/dL 02/02/2024 1:18 PM [facility]OR[facility] Hematocrit 36.8 35.0 - 47.0 % 02/02/2024 1:18 PM [facility] MCV 100 78 - 100 fL 02/02/2024 1:18 PM [facility] MCH 34.3(H) 26.5 - 33.0 pg 02/02/2024 1:18 PM [facility] MCHC 34.5 31.5 - 36.5 g/dL 02/02/2024 1:18 PM [facility] RDW 13.4 10.0 - 15.0 % 02/02/2024 1:18 PM [facility] Platelet Count 115(L) 150 - 450 10e3/uL 02/02/2024 1:18 PM [facility] % Neutrophils 79 % 02/02/2024 1:18 PM [facility] % Lymphocytes 10 % 02/02/2024 1:18 PM [facility] % Monocytes 8 % 02/02/2024 1:18 PM [facility] % Eosinophils 2 % 02/02/2024 1:18 PM [facility] % Basophils 1 % 02/02/2024 1:18 PM [facility] % Immature Granulocytes 0 % 02/02/2024 1:18 PM [facility] NRBCs per 100 WBC 0 <1 /100 024 1:18 PM [facility] Absolute Neutrophils 7.1 1.6 - 8.3 10e3/uL 02/02/2024 1:18 PM [facility] Absolute Lymphocytes 0.9 0.8 - 5.3 10e3/uL 02/02/2024 1:18 PM [facility] Absolute Monocytes 0.7 0.0 - 1.3 10e3/uL 02/02/2024 1:18 PM [facility] Absolute Eosinophils 0.2 0.0 - 0.7 10e3/uL 02/02/2024 1:18 PM [facility] Absolute Basophils 0.1 0.0 - 0.2 10e3/uL 02/02/2024 1:18 PM [facility] Absolute Immature Granulocytes 0.0 <=0.4 10e3/uL 02/02/2024 1:18 PM [facility] Absolute NRBCs 0.0 10e3/uL 02/02/2024 1:18 PM [facility] Blood STRUCTURE OF RIGHT HAND / Unknown Venipuncture / Unknown 02/02/2024 10:22 AM JOB PRESS OPERATOR 02/02/2024 10:36 AM [facility] Toño Echavarria Mauri DO LAB - BLOOD ORDERABLE S Final Result LABORATORY [facility] [address], [address] [place] [address], [facility] [phone] * (ABNORMAL) Comprehensive metabolic panel (02/02/2024 10:22 AM [facility]) Sodium 140 135 - 145 mmol/L 02/02/2024 11:09 AM [facility] Potassium 3.4 3.4 - 5.3 mmol/L 02/02/2024 11:09 AM [facility] Carbon Dioxide (CO2) 28 22 - 29 mmol/L 02/02/2024 11:09 AM [facility] Anion Gap 10 7 - 15 mmol/L 02/02/2024 11:09 AM [facility] Urea Nitrogen 15.6 8.0 - 23.0 mg/dL 02/02/2024 11:09 AM [facility] Creatinine 0.94 0.51 - 0.95 mg/dL 02/02/2024 11:09 AM [facility] GFR Estimate 61 >60 mL/min/1.7 3m2 02/02/2024 11:09 AM [facility] Comment:eGFR calculated usin g 2020 CKD-EPI equation. Calcium 9.2 8.8 - 10.4 mg/dL 02/02/2024 11:09 AM [facility] Comment:Reference intervals for this test were updated on 09/23/2023 to reflect our healthy population more accurately. There may be differences in the flagging of prior results with similar values performed with this method. Those prior results can be interpreted in the context of the updated reference intervals. Chloride 102 98 - 107 mmol/L 02/02/2024 11:09 AM [facility] Glucose 93 70 - 99 mg/dL 02/02/2024 11:09 AM [facility] Alkaline Phosphatase 149 40 - 150 U/L 02/02/2024 11:09 AM [facility] AST 124(H) 0 - 45 U/L 02/02/2024 11:09 AM JOB PRESS OPERATOR LABORATORY ALT 182(H) 0 - 50 U/L 02/02/2024 11:09 AM [facility] Protein Total 5.4(L) 6.4 - 8.3 g/dL 02/02/2024 11:09 AM JOB PRESS OPERATOR LABORATORY Albumin 3.8 3.5 - 5.2 g/dL 02/02/2024 11:09 AM [facility] Bilirubin Total 3.8(H) <=1.2 mg/dL 02/02/2024 11:09 AM [facility] Blood STRUCTURE OF RIGHT HAND / Unknown Venipuncture / Unknown 02/02/2024 10:22 AM JOB PRESS OPERATOR 02/02/2024 10:36 AM JOB PRESS OPERATOR us Toño Dotson DO LAB - BLOOD ORDERABLE S Final Result LABORATORY [facility] [address], [address] [place] [address], [facility] [phone] * US Abdomen Limited (02/02/2024 9:31 AM JOB PRESS OPERATOR) Anatomical Region Laterality Modality Abdomen/Pelvis Ultrasound Impressions 02/02/2024 2:56 PM JOB PRESS OPERATOR IMPRESSION: Distended gallbladder with gallbladder sludge and stones. Negative sonographic Lo sign. Cholecystitis not excluded. Common duct is mildly distended measuring 8 mm. LAURA OLIVARES MD SYSTEM ID: [id number] Narrative 02/02/2024 2:56 PM JOB PRESS OPERATOR ULTRASOUND ABDOMEN LIMITED 02/02/2024 9:31 AM [...] 8 mm. LAURA OLIVARES MD SYSTEM ID: [id number] Rivas Delcid MD [facility] US ORDERABLES Final Result * (ABNORMAL) Comprehensive metabolic panel (02/01/2024 2:27 PM JOB PRESS OPERATOR) [facility] Sodium 138 135 - 145 mmol/L 02/01/2024 5:15 PM [facility] Potassium 3.9 3.4 - 5.3 mmol/L 02/01/2024 5:15 PM [facility] Carbon Dioxide (CO2) 24 22 - 29 mmol/L 02/01/2024 5:15 PM [facility] Anion Gap 14 7 - 15 mmol/L 02/01/2024 5:15 PM [facility] Urea Nitrogen 12.0 8.0 - 23.0 mg/dL 02/01/2024 5:15 PM [facility] Creatinine 0.85 0.51 - 0.95 mg/dL 02/01/2024 5:15 PM [facility] GFR Estimate 69 >60 mL/min/1.7 3m2 02/01/2024 5:15 PM [facility] Comment:eGFR calculated usin 2020 CKD-EPI equation. Calcium 9.2 8.8 - 10.4 mg/dL 02/01/2024 5:15 PM [facility] Comment:Reference intervals for this test were updated on 09/23/2023 to reflect our healthy population more accurately. There may be differences in the flagging of prior results with similar values performed with this method. Those prior results can be interpreted in the context of the updated reference intervals. Chloride 100 98 - 107 mmol/L 02/01/2024 5:15 PM [facility] Glucose 106(H) 70 - 99 mg/dL 02/01/2024 5:15 PM [facility] Alkaline Phosphatase 156(H) 40 - 150 U/L 02/01/2024 5:15 PM [facility] AST 151(H) 0 - 45 U/L 02/01/2024 5:15 PM [facility] ALT 187(H) 0 - 50 U/L 02/01/2024 5:15 PM [facility] Protein Total 5.8(L) 6.4 - 8.3 g/dL 02/01/2024 5:15 PM [facility] Albumin 4.0 3.5 - 5.2 g/dL 02/01/2024 5:15 PM [facility] Bilirubin Total 4.1(H) <=1.2 mg/dL 02/01/2024 5:15 PM [facility] Blood STRUCTURE OF RIGHT HAND / Unknown Venipuncture / Unknown 02/01/2024 2:27 PM JOB PRESS OPERATOR 02/01/2024 2:36 PM JOB PRESS OPERATOR us Delroy Hagen MD LAB - BLOOD ORDERABLES Final Res ult LABORATORY [facility] [address], [address] [place] [address], [facility] [phone] * (ABNORMAL) Hepatic panel (02/01/2024 2:27 PM JOB PRESS OPERATOR) Protein Total 5.8(L) 6.4 - 8.3 g/dL 02/01/2024 2:56 PM JOB PRESS OPERATOR LABORATORY Albumin 4.0 3.5 - 5.2 g/dL 02/01/2024 2:56 PM [facility] Bilirubin Total 4.2(H) <=1.2 mg/dL 02/01/2024 2:56 PM JOB PRESS OPERATOR LABORATORY Alkaline Phosphatase 158(H) 40 - 150 U/L 02/01/2024 2:56 PM [facility] AST 145(H) 0 - 45 U/L 02/01/2024 2:56 PM JOB PRESS OPERATOR LABORATORY ALT 191(H) 0 - 50 U/L 02/01/2024 2:56 PM JOB PRESS OPERATOR LABORATORY Bilirubin Direct 3.43(H) 0.00 - 0.30 mg/dL 02/01/2024 2:56 PM JOB PRESS OPERATOR LABORATORY Blood STRUCTURE OF RIGHT HAND / Unknown Venipuncture / Unknown 02/01/2024 2:27 PM JOB PRESS OPERATOR 02/01/2024 2:36 PM JOB PRESS OPERATOR Toño Dotson DO LAB - BLOOD ORDERABLE S Final Result [facility] [address], [address] [place] [address], [place] [phone] * Lactic Acid Whole Blood w/ 1x repeat in 2 hrs when >2 (02/01/2024 2:27 PM JOB PRESS OPERATOR) Lactic Acid, Initial 1.2 0.7 - 2.0 mmol/L 02/01/2024 2:38 PM JOB PRESS OPERATOR LABORATORY Blood STRUCTURE OF RIGHT HAND / Unknown Venipuncture / Unknown 02/01/2024 2:27 PM JOB PRESS OPERATOR 02/01/2024 2:33 PM JOB PRESS OPERATOR Delroy Hagen MD LAB - BLOOD ORDERABLES Final Res ult [facility] [address], [address] [place] [address], [place] [phone] * EKG 12-lead, tracing only (02/01/2024 1:19 PM JOB PRESS OPERATOR) Systolic Blood Pressure mmHg RADIOLOGY RESULTS Diastolic Blood Pressure mmHg RADIOLOGY RESULTS Ventricular Rate 69 BPM RAD IOLOGY RESULTS Atrial Rate 69 BPM RADIOLOG Y RESULTS NM Interval 146 ms RADIOLOG Y RESULTS QRS Duration 140 ms RADIOLO GY RESULTS QT 448 ms RADIOLOGY RESULTS QTc 480 ms RADIOLOGY RESULTS P [place] 62 degrees RADIOLOGY RESULTS R AXIS -41 degrees RADIOLOGY RESULTS T Gould 95 degrees RADIOLOGY RESULTS Interpretation ECG Sinus rhythm Left axis deviation Left bundle branch block Abnormal ECG When compared with ECG of 01-Jan-2021 21:45, No significant change was found Confirmed by MD BERNARDA, CATALINA ([id number]) on 02/02/2024 11:39:18 AM RADIOLOGY RESULTS 02/01/2024 1:19 PM JOB PRESS OPERATOR 02/02/2024 11:39 AM JOB PRESS OPERATOR Toño Dotson DO ECG ORDERABLES Edite d [...] via enteral route. $Given 02/02/2024 10:00 AM JOB PRESS OPERATOR 12.5 mg $Given 02/01/2024 5:22 PM JOB PRESS OPERATOR 12.5 mg dexAMETHasone (DECADRON) injection 4 mg [...] DAILY, First dose on Fri02/01/24 at 2100 $Given 02/02/2024 9:56 AM JOB PRESS OPERATOR 1 drop $Given 02/01/2024 8:24 PM JOB PRESS OPERATOR 1 drop fentaNYL (PF) (SUBLIMAZE) injection 25 [...] with non-opioid analgesics. $Given 02/01/2024 1:55 PM JOB PRESS OPERATOR 0.2 mg HYDROmorphone (DILAUDID) injection 0.2 mg 0.2 mg, Intravenous, EVERY 5 MIN PRN, moderate pain, Starting on 02/02/24 at 1504, Use FentaNYL (SUBLIMAZE) first if [...] with non-opioid analgesics. $Given 02/01/2024 4:54 PM JOB PRESS OPERATOR 0.4 mg $Given 02/01/2024 2:56 PM JOB PRESS OPERATOR 0.4 mg HYDROmorphone (DILAUDID) injection 0.4 mg 0.4 mg, Intravenous, EVERY 5 MIN PRN, severe pain, Starting on 02/02/24 at 1504, Use FentaNYL (SUBLIMAZE) first if [...] EVERY EVENING, First dose on 02/01/24 at 2000, Rinse mouth after use. Check the dose counter on the inhaler to ensure there are doses remaining before administering. $Given 02/01/2024 8:20 PM JOB PRESS OPERATOR 1 puff naloxone (NARCAN) injection 0.1 mg [...] 2 MIN PRN, opioid reversal, Starting on Sun 24 at 1320, Administer intramuscular if an intravenous [...] 2-5 Minutes, Starting on 02/01/24 at 1327 $Given 02/01/2024 4:53 PM JOB PRESS OPERATOR 4 mg ondansetron (ZOFRAN) injection 4 mg [...] InfectionIndications:Intra-Abdominal Infection $New Bag 02/02/2024 10:37 AM JOB PRESS OPERATOR 3.375 g $New Bag 02/02/2024 6:03 AM JOB PRESS OPERATOR 3.375 g $New Bag 02/01/2024 11:17 PM JOB PRESS OPERATOR 3.375 g predniSONE (DELTASONE) tablet 2 mg 2 mg, Oral, DAILY, First dose on Fri02/01/24 at 1330 $Given 02/02/2024 9:55 AM JOB PRESS OPERATOR 2 mg $Given 02/01/2024 5:23 PM JOB PRESS OPERATOR 2 mg prochlorperazine (COMPAZINE) injection 5 mg [...] Fri02/02/24 at 0900 $Given 02/02/2024 9:55 AM JOB PRESS OPERATOR 5 mg senna-docusate (SENOKOT-S/PERICOLACE) 8.6-50 MG per [...] 2 TIMES DAILY PRN, constipation, Starting on Fri02/01/24 at 1306, IF more than 1 constipation [...] Fri02/02/24 at 0900 $Given 02/02/2024 9:55 AM JOB PRESS OPERATOR 75 mg sodium chloride (PF) 0.9% PF flush 3 mL 3 mL, Intracatheter, EVERY 8 HOURS, First dose on Fri02/01/24 at 1330, to lock peripheral IV dormant line $Given 02/02/2024 6:03 AM JOB PRESS OPERATOR 3 mLs $Given 02/01/2024 2:57 PM JOB PRESS OPERATOR 3 mLs Inactive Administered Medications - up to 3 most recent administrations Medication Order MAR Action Action Date Dose Rate Site acetaminophen (TYLENOL) tablet 975 mg 975 mg, Oral, ONCE, On Fri02/02/24 at 1200, For 1 dose, Maximum acetaminophen dose from all sources = 75 mg/kg/day not to exceed 4 grams/day., Pre-procedure $Given 02/02/2024 12:03 PM JOB PRESS OPERATOR 975 mg oxyCODONE (ROXICODONE) tablet 5 mg 5 mg, Oral, EVERY 4 HOURS PRN, severe pain, IF pain not managed with non-pharmacological and non-opioid interventions, Starting on 02/01/24 at 1309, May use concomitant with non-opioid analgesics. $Given 02/01/2024 1:51 PM JOB PRESS OPERATOR 5 mg documented in this encounter Active and Recently Administered Medications Times are shown in JOB PRESS OPERATOR. Scheduled Medication Order 01/31/2024 02/01/2024 02/02/2024 acetaminophen [...] TIMES DAILY, First dose on 02/01/24 at 2099 2030 (Not Given - Provider: Monisha Urrutia [...] at 2100 2023 ($Given - Provider: Monisha Urrutia, TELLY) 0956 ($Given - Provider: Kina Dawson, TELLY)1127 [...] 400 mg, Oral, DAILY, First dose on Fri02/01/24 at 1700, Indications: Chronic Myelocytic Leukemia, Take with food and water. Do not crush May require hepatic and/or renal dose or frequency adjustments. See reference link for guidelines. 1725 (Not Given - Provider: Shonda Dozier RN - Reason: Medication not available - Comment: Sent message to pharmacy to load in [employer])2022 (Not Given - Provider: Monisha Urrutia RN [...] EVERY EVENING, First dose on 02/01/24 at 2000, Rinse mouth after use. Check the dose counter on the inhaler to ensure there are doses remaining before administering. 2019 ($Given - Provider: Monisha Urrutia RN) 1127 (Auto Hold - Provider: Orders [...] 02/01/24 at 1327 1653 ($Given - Provider: Shonda Dozier RN) 1127 [...] or to lock dormant line, Starting on Fri02/01/24 at 1306 1127 (Auto Hold - Provider: [...] Total Score: 8 04/30/19 24 2:24 PM JOB PRESS OPERATOR documented as of this encounter Care Teams Risk Assessment Consultant Relationship Specialty Start Date End Date Jasmin Maradiaga PA-C [address] [place] [address] PCP - General Family Medicine 03/16/21 Hector Goode MD [address] [address] Neurology 05/01/17 John Cancino MD [address] [place] [id number] Family Medicine - Sports Medicine 07/30/17 Jasmin Maradiaga PA-C [address] [place] [address] Assigned PCP 10/20/21 Carl Farah MD [address] [place] [phone] Assigned Heart and Vascular Provider 05/18/22 Hector Goode MD [address] [place] [id number] Assigned Neuroscience Provider 07/01/23 documented as of this encounter
--- OUTSIDE RECORDS SUMMARY | 2024-02-02 15:46 | XMS_ITS | Encounter Summary ---
Author Organization [place] Address [facility] [place] [address] Care Team Providers Care Pediatric Registered Nurse Name Role Phone Hector Goode MD Unavailable John Cancino MD Unavailable [phone] Jasmin aMradiaga PA-C Primary Care Provid er Jasmin Maradiaga PA-C Unavailable + [phone] Carl Farah MD Unavailable [phone] Hector Goode MD Unavailable Reason for Visit * Auth/Cert Specialty Diagnoses / Procedures Referred By Jeremiah t Referred To Contact Med Surg Diagnoses Acute cholecystitis, jaundice, slight hypoxia [facility] [place] [address] Phone: tel: fax: Referral ID Status Reason Start Date Expiration Date Visits Re quested Visits Authorized [id number] 1 1 Encounter Details Date Type Department Care Team (Late st Contact Info) Description 02/02/2024 12:25 PM MOLD SHIFTER Anesthesia Event [facility] [address] [place] [phone] Levar Paul MD [facility] [address] [place] [id number] Anesthesia Record Procedure Summary Procedure Name Responsible Anesthesiologist Anesthesia Start Time Anesthesia Stop Time CHOLECYSTECTOMY, LAPAROSCOPIC (Abdomen) Levar Paul MD 02/02/24 1225 02/02/24 152 4 Events Date Time Event Comment 02/02/2024 1225 An Start Anesthesia Star t is defined as when the anesthesia provider assumed care, began anesthesia prep, remained continuously present with the patient, and excludes all time for performing the pre-anesthesia evaluation. The Pre-Anesthesia Evaluation was completed before Anesthesia Start. 1227 An Start Data 1227 AN REASSESS I attest that I have identified and re-evaluated the patient immediately before the induction of anesthesia and I am satisfied that the anesthetic plan is suitable for the patient's condition and procedure. The first vital signs recorded are pre-induction. Tapan eDcker 1232 MD Present 1232 An Induction 1235 An Intubation 1238 Anesthesia Ready for Procedu re 1339 MD Present 1452 Quick Note ERCP Started 1454 MD Present 1516 AN Extubation All extubation criteria met prior to removal. 1518 an stop data 1524 An Stop Electronically signed by John Joyner APRN CRNA on February 02, 2024 3:24 PM Meds Name Total fentaNYL 50 mcg/mL 100 mcg lidocaine 2% 100 mg propofol 10 mg/mL 200 mg rocuronium 10 mg/mL 50 mg phenylephrine (ARGELIA-SYNEPHRINE) injection 300 mcg dexamethasone (DECADRON) 4 mg/mL 4 mg ondansetron 2 mg/mL 4 mg glycopyrrolate 0.2 mg/mL 0.2 mg ceFAZolin Sodium (ANCEF) injection 2 g 2 g phenylephrine 0.2 mg/mL (mcg/kg/min) dri p 1.31 mg albuterol (PROVENTIL HFA/VENTOLIN HFA) i nhaler 8 puff dexmedeTOMIDine (PRECEDEX) 4 mcg/mL in N aCl 25mL 20 mcg sugammadex (BRIDION) 500mg/5ml 400 mg LR 400 mL albumin 5% 250 mL * Agents Name O2 N2O Air Exp Sevoflurane Exp Isoflurane Exp Desflurane Ins Sevoflurane Ins Isoflurane Ins Desflurane * Blood No blood administrations on file. Lines, Drains, and Airways Type Details Placement Removal Incision/Surgical Site Bilateral; Eye (u pper eyelids) 02/24/12 1153 by Peripheral IV 02/02/24; 1150; 20 G ; BD; Left; Hand; Chlorhexidine; 1; Tolerated well 02/02/24 1150 by Mariama Khan RN Incision/Surgical Site Incision; 4; 1329; Abdomen; Port Site X 5 02/02/24 1329 by Vipul Monroe RN documented in this encounter Social History Tobacco Use Types Packs/Day Years [...] Answer Date Recorded Do you have housing? (Housin g is defined as stable permanent housing and does not include staying ouside in a car, in a tent, in an abandoned building, in an overnight half-way, or couch-surfing.) Yes 02/02/2024 Are you worried [...] on file Legal Sex Female 2:58 AM MOLD SHIFTER Gender Identity Not on file Sexual Orientation Not on file documented as of this encounter OR Notes * Anesthesia Preprocedure Evaluation - Levar Paul MD - 02/02/2024 9:08 AM CST Anesthesia Pre-Procedure Evaluation Patient: Griselda Lai : 1945 Procedure : Procedure(s): CHOLECYSTECTOMY, LAPAROSCOPIC Endoscopic retrograde cholangiopancreatogram complex ENDOSCOPIC ULTRASOUND Past Medical History: Diagnosis Date Cardiomyopathy (H) idiopathic Chronic myeloid leukemia in remission (H) 04/25/2002 Dr Bustillo, on gleevec Chronic restrictive lung disease possibly related to muscular dystrophy Congestive heart failure, unspecified Depressive disorder, not elsewhere classified 10/04/2002 MCCLAIN (dyspnea on exertion) Fatty liver noted on CT scan Hyperlipidemia Irritable bowel syndrome LBBB (left bundle branch block) 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) use of anticoagulants 01/31/2004 off coumadin [...] with FSH muscular dystrophy Past Surgical History: Procedure Laterality Date ANGIOGRAM [...] COLONOSCOPY THRU STOMA, DIAGNOSTIC 01/2007 Dr Lizama Allergies Allergen Reactions Cortisone Cortisone shots Sulfa Antibiotics Social History Tobacco Use Smoking status: Never Passive exposure: Never Smokeless tobacco: Never Substance Use Topics Alcohol use: No Alcohol/week: 0.0 standard drinks of alcohol Wt Readings from Last 1 Encounters: 02/01/24 (P) 108.9 kg (240 lb) Anesthesia Evaluation ROS/MED HX ENT/Pulmonary: (+) sleep apnea, uses CPAP, Moderate Persistent, asthma (-) tobacco use Neurologic: - neg neurologic ROS Cardiovascular: (+) - - - - - CHF (Chemo) etiology: Chemo Last EF: 45 Previous cardiac testing Echo: Date: 2022 Results: Interpretation Summary The visual ejection fraction is 40-45%. There is moderate to severe anterior, septal, and apical wall hypokinesis. The right ventricle is normal in structure, function and size. The left atrium is borderline dilated. Compared to prior study, there is no significant change. Stress Test: Date: Results: ECG Reviewed: Date: Results: Cath: Date: Results: (-) CAD METS/Exercise Tolerance: >4 METS Hematologic: Comments: PMR-On 2 mg/day of prednisone Musculoskeletal: (+) arthritis, GI/Hepatic: (+) GERD, Asymptomatic on medication, cholecystitis/cholelithiasis, liver disease, Renal/Genitourinary: (+) renal disease, type: CRI, Endo: (+) Obesity, Psychiatric/Substance Use: Infectious Disease: Malignancy: (+) Malignancy, History of Lymphoma/Leukemia. Other: Physical Exam Airway Mallampati: III TM distance: > 3 FB Neck ROM: full Mouth opening: > 3 cm Respiratory Devices and Support Dental (+) Modest Abnormalities - crowns, retainers, 1 or 2 missing teeth Cardiovascular cardiovascular exam normal Pulmonary pulmonary exam normal OUTSIDE LABS: CBC: Lab Results Component Value Date WBC 5.5 01/07/2024 WBC 8.1 04/30/2023 HGB 12.8 01/07/2024 HGB 12.0 04/30/2023 HCT 37.9 01/07/2024 HCT 36.9 04/30/2023 PLT 144 (A) 01/07/2024 PLT 176 04/30/2023 BMP: Lab Results Component Value Date NA 138 02/01/2024 NA 140.7 01/07/2024 POTASSIUM 3.9 02/01/2024 POTASSIUM 4.17 01/07/2024 CHLORIDE 100 02/01/2024 CHLORIDE 105.9 01/07/2024 CO2 24 02/01/2024 CO2 25.3 01/07/2024 BUN 12.0 02/01/2024 BUN 22 01/07/2024 BUN 19 01/07/2024 CR 0.85 02/01/2024 CR 1.18 01/07/2024 GLC 106 (H) 02/01/2024 GLC 110 (A) 01/07/2024 COAGS: Lab Results Component Value Date PTT 43 (H) 06/06/2005 INR 1.0 05/01/2006 POC: No results found for: BGM, HCG, HCGS HEPATIC: Lab Results Component Value Date ALBUMIN 4.0 02/01/2024 ALBUMIN 4.0 02/01/2024 PROTTOTAL 5.8 (L) 02/01/2024 PROTTOTAL 5.8 (L) 02/01/2024 ALT 191 (H) 02/01/2024 ALT 187 (H) 02/01/2024 AST 145 (H) 02/01/2024 AST 151 (H) 02/01/2024 GGT 26 06/26/2012 ALKPHOS 158 (H) 02/01/2024 ALKPHOS 156 (H) 02/01/2024 BILITOTAL 4.2 (H) 02/01/2024 BILITOTAL 4.1 (H) 02/01/2024 BILIDIRECT 0.2 05/01/2006 OTHER: Lab Results Component Value Date PH 6.0 12/19/2011 LACT 1.2 02/01/2024 THI 9.2 02/01/2024 MAG 1.8 02/13/2005 LIPASE 57 01/15/2007 TSH 2.63 05/24/2020 T4 6.5 12/14/2004 CRP 3.1 02/17/2019 SED 19 02/17/2019 Anesthesia Plan ASA Status: 3, emergent NPO Status: NPO Appropriate Anesthesia Type: General. - Airway: ETT Induction: Intravenous, Propofol. Maintenance: Balanced. Consents Anesthesia Plan(s) and associated risks, benefits, and realistic alternatives discussed. Questions answered and patient/desk representative(s) expressed understanding. - Discussed: - Discussed with: Patient - Extended Intubation/Ventilatory Support Discussed: No. - Patient is DNR/DNI Status: No Use of blood products discussed: No . Postoperative Care Pain management: IV analgesics, Multi-modal analgesia. PONV prophylaxis: Ondansetron (or other 5HT-3), Dexamethasone or Solumedrol Comments: Levar Paul MD I have reviewed the pertinent notes and labs in the chart from the past 30 days and (re)examined the patient. Any updates or changes from those notes are reflected in this note. # Drug Induced Platelet Defect: home medication list includes an antiplatelet medication # Hypertension: Home medication list includes antihypertensive(s) # Heart failure, NOS: heart failure noted on the problem list and last echo with EF 40-50% # Severe Obesity: Estimated body mass index is 41.2 kg/m?? (pended) as calculated from the following: Height as of this encounter: (P) 1.626 m (5' 4). Weight as of this encounter: (P) 108.9 kg (240 lb). # Asthma: noted on problem list SHIFTER SHIFTER documented in this encounter Miscellaneous Notes * Anesthesia Care Transfer Note - John Joyner APRN [employer]CR[employer]E TRUCK DRIVER - 02/02/2024 3:23 PM CST Patient: Griselda Lai Procedure: Procedure(s): CHOLECYSTECTOMY, LAPAROSCOPIC Endoscopic retrograde cholangiopancreatogram complex, Stone Removal, Sphincterotomy, Stent Insertion Diagnosis: Cholecystitis [K81.9] Choledocholithiasis with acute cholecystitis [K80.42] Diagnosis Additional Information: No value filed. Anesthesia Type: General Note: Oropharynx: oropharynx clear of all foreign objects and spontaneously breathing Level of Consciousness: awake Oxygen Supplementation: face mask Level of Supplemental Oxygen (L/min / FiO2): 6 Independent Airway: airway patency satisfactory and stable Dentition: dentition unchanged Vital Signs Stable: post-procedure vital signs reviewed and stable Report to RN Given: handoff report given Patient transferred to: PACU Handoff Report: Identifed the Patient, Identified the Reponsible Provider, Reviewed the pertinent medical history, Discussed the surgical course, Reviewed Intra-OP anesthesia mangement and issues during anesthesia, Set expectations for post-procedure period and Allowed opportunity for questions andacknowledgement of understanding Vitals: Vitals Value Taken Time BP 144/62 02/02/24 1519 Temp Pulse 69 02/02/24 1522 Resp 14 02/02/24 1522 SpO2 99 % 02/02/24 1522 Vitals shown include unfiled device data. Electronically Signed By: John Joyner APRN CRNA February 02, 2024 3:23 PM SHIFTER documented in this encounter Plan of Treatment Upcoming Encounters Date Type Department Care Team (Late st Contact Info) Description 06/14/2024 1:00 PM CDT Office Visit [facility] [address] [place] [address] Hector Goode MD [address] [place] [address] [id number] [address] Scheduled Procedures Name Priority Associated Diagnoses Date/Ti me CHOLECYSTECTOMY, LAPAROSCOPIC Cholecystitis Choledocholithiasis with acute cholecystitis 02/02/2024 12:27 PM MOLD SHIFTER ENDOSCOPIC RETROGRADE CHOLANGIOPANCREATOGRAPHY, COMPLEX Cholecystitis Choledocholithiasis with acute cholecystitis 02/02/2024 12:27 PM MOLD SHIFTER ENDOSCOPIC ULTRASOUND, ESOPHAGOSCOPY / UPPER GASTROINTESTINAL TRACT (GI) Cholecystitis Choledocholithiasis with acute cholecystitis 02/02/2024 12:27 PM MOLD SHIFTER ENDOSCOPIC RETROGRADE CHOLANGIOPANCREATOGRAPHY, COMPLEX Cholecystitis Choledocholithiasis with acute cholecystitis documented as of this encounter Visit Diagnoses Not on filedocumented in this encounter Administered Medications Inactive Administered Medications - up to 3 most recent administrations Medication Order MAR Action Action Date Dose Rate Site albumin human 5 % injection Intravenous, CONTINUOUS PRN, Starting on Fri02/02/24 at 1250, Anesthesia Intra-op $New Bag 02/02/2024 12:50 PM MOLD SHIFTER albuterol (PROVENTIL HFA/VENTOLIN HFA) inhaler Inhalation, PRN, Starting on Fri02/02/24 at 1225, Anesthesia Intra-op $Given 02/02/2024 3:03 PM MOLD SHIFTER 6 puffs $Given 02/02/2024 12:25 PM MOLD SHIFTER 2 puffs ceFAZolin Sodium (ANCEF) injection 2 g Routine, 2 g, Intravenous, PRE-OP/PRE-PROCEDURE, Starting on Fri02/02/24 at 1134, For 1 dose, Give first dose within 1 hour PRIOR to incision. If patient weight is greater than or equal to 120 kg increase dose to 3 g., Indications: Perioperative Pharmacoprophylaxis, Pre-procedureIndications:Perioperative Pharmacoprophylaxis $Given 02/02/2024 12:32 PM MOLD SHIFTER 2 g dexAMETHasone (DECADRON) injection Intravenous, PRN, Administer over 1 Minutes, Starting on Fri02/02/24 at 1252, Anesthesia Intra-op $Given 02/02/2024 12:52 PM MOLD SHIFTER 4 mg dexmedeTOMIDine (PRECEDEX) 4 mcg/mL in sodium chloride 0.9 % 50 mL infusion Intravenous, PRN, Starting on Fri02/02/24 at 1312, Anesthesia Intra-op $Given 02/02/2024 1:48 PM MOLD SHIFTER 12 mcg $Given 02/02/2024 1:12 PM MOLD SHIFTER 8 mcg fentaNYL (PF) (SUBLIMAZE) injection Intravenous, PRN, Administer over 3-5 Minutes, Starting on Fri02/02/24 at 1232, Anesthesia Intra-op $Given 02/02/2024 1:03 PM MOLD SHIFTER 50 mcg $Given 02/02/2024 12:32 PM MOLD SHIFTER 50 mcg glycopyrrolate (ROBINUL) injection Intravenous, PRN, Administer over 1-2 Minutes, Starting on Fri02/02/24 at 1321, Anesthesia Intra-op $Given 02/02/2024 1:21 PM MOLD SHIFTER 0.2 mg lactated ringers infusion Intravenous, CONTINUOUS PRN, Anesthesia Intra-op, Starting on Fri02/02/24 at 1232, Until Fri02/02/24 at 1524 $New Bag 02/02/2024 12:32 PM MOLD SHIFTER lidocaine 2% injection (MDV) Intravenous, PRN, Starting on Fri02/02/24 at 1232, Anesthesia Intra-op $Given 02/02/2024 12:32 PM MOLD SHIFTER 100 m g ondansetron (ZOFRAN) injection Intravenous, PRN, Administer over 2-5 Minutes, Starting on Fri02/02/24 at 1504, Anesthesia Intra-op $Given 02/02/2024 3:04 PM MOLD SHIFTER 4 mg phenylephrine (ARGELIA-SYNEPHRINE) injection Intravenous, CONTINUOUS PRN, Starting on Fri02/02/24 at 1238, Anesthesia Intra-op $Bolus 02/02/2024 12:52 PM MOLD SHIFTER 100 mcg $Bolus 02/02/2024 12:50 PM MOLD SHIFTER 100 mcg $New Bag 02/02/2024 12:38 PM MOLD SHIFTER 100 mcg phenylephrine 0.2 mg/mL (mcg/kg/min) drip Intravenous, CONTINUOUS PRN, Starting on Fri02/02/24 at 1246, Anesthesia Intra-op Rate/Dose Change 02/02/2024 1:08 PM MOLD SHIFTER 0.2 mcg/kg/min 6.75 mL/hr Rate/Dose Change 02/02/2024 1:04 PM MOLD SHIFTER 0.4 mcg/kg/min 13. 5 mL/hr Rate/Dose Change 02/02/2024 12:52 PM MOLD SHIFTER 0.6 mcg/kg/min 20 .25 mL/hr propofol (DIPRIVAN) injection 10 mg/mL vial Intravenous, PRN, Starting on Fri02/02/24 at 1232, Anesthesia Intra-op $Given 02/02/2024 12:32 PM MOLD SHIFTER 200 mg rocuronium injection Intravenous, PRN, Starting on Fri02/02/24 at 1232, Anesthesia Intra-op $Given 02/02/2024 1:03 PM MOLD SHIFTER 10 mg $Given 02/02/2024 12:32 PM MOLD SHIFTER 40 mg sugammadex (BRIDION) injection Intravenous, PRN, Starting on 02/02/24 at 1504, Anesthesia Intra-op $Given 02/02/2024 3:04 PM MOLD SHIFTER 400 mg documented in this encounter Additional Health Concerns Assessment Noted Time PHQ-9 Depression Total Score: 8 04/30/19 2:24 PM MOLD SHIFTER documented as of this encounter Care Teams Pediatric Registered Nurse Relationship Specialty Start Date End Date Jasmin Maradiaga PA-C [address] [address] PCP - General Family Medicine 03/16/21 Hector Goode MD [address] [place] [id number] Neurology 05/01/17 John Cancino MD [address] [place] [phone] Family Medicine - Sports Medicine 07/30/17 Jasmin Maradiaga PA-C [address] [address] Assigned PCP 10/20/21 Carl Farah MD [address] [place] [id number] Assigned Heart and Vascular Provider 05/18/22 Hector Goode MD [address] [place] [id number] Assigned Neuroscience Provider 07/01/23 documented as of this encounter
--- OUTSIDE RECORDS SUMMARY | 2024-02-02 15:47 | XMS_ITS | Encounter Summary ---
Author Organization [place] Address [facility] [place] [address] Care Team Providers Care Database Operator Name Role Phone Hector Goode MD Unavailable John Cancino MD Unavailable [phone] Carl Farah MD Unavailable [phone] Jasmin Maradiaga PA-C Primary Care Provid er Jasmin Maradiaga PA-C Unavailable Itzel Polk APRN PATRIOT MIS[employer]LE [employer] DEFENSE ARTILLERY Unavailable Unavailable Carl Farah MD Unavailable [phone] Hector Goode MD Unavailable Reason for Visit * Reason Onset Date Comments Refill Request 10/24/2021 furosemide (LASI X) 20 MG tablet Encounter Details Date Type Department Care Team (Late st Contact Info) Description 10/24/2021 [facility] [address] [place] [address] Itzel Polk APRN [employer] MIS[employer] DEFENSE ARTILLERY NO INFO AVAILABLE 12/27/2021 Refill Request (furosemide [...] on file Legal Sex Female 2:58 AM BRAZE OPERATOR Gender Identity Not on file Sexual Orientation Not on file documented as of this encounter Miscellaneous Notes * Telephone Encounter - Gissell Bob - 10/24/2021 12:46 PM CDT [facility] Call [facility] Phone Message May a detailed message be left on voicemail: yes Reason for Call: Medication Refill Request Has the patient contacted the pharmacy for the refill? Yes Name of medication being requested: furosemide (LASIX) 20 MG tablet Provider who prescribed the medication: Juan Luis Mcmahon [facility] [place], [place] - [address] AT PORTAL TO REGISTERED [facility] SITES Date medication is needed: [facility] calling for a new script Action Taken: Message routed to: [facility] cardio Travel Screening: Not Applicable documented in this encounter Plan of Treatment Upcoming Encounters Date Type Department Care Team (Late st Contact Info) Description 06/14/2024 1:00 PM CDT Office Visit [facility] [address] 3rd [place] [phone] Hector Goode MD [address] [place] [id number] Scheduled Procedures Name Priority Associated Diagnoses Date/Ti me CHOLECYSTECTOMY, LAPAROSCOPIC Cholecystitis Choledocholithiasis with acute cholecystitis 02/02/2024 12:27 PM BRAZE OPERATOR ENDOSCOPIC RETROGRADE CHOLANGIOPANCREATOGRAPHY, COMPLEX Cholecystitis Choledocholithiasis with acute cholecystitis 02/02/2024 12:27 PM BRAZE OPERATOR ENDOSCOPIC ULTRASOUND, ESOPHAGOSCOPY / UPPER GASTROINTESTINAL TRACT (GI) Cholecystitis Choledocholithiasis with acute cholecystitis 02/02/2024 12:27 PM BRAZE OPERATOR ENDOSCOPIC RETROGRADE CHOLANGIOPANCREATOGRAPHY, COMPLEX Cholecystitis Choledocholithiasis with acute cholecystitis documented as of this encounter Visit Diagnoses Not on filedocumented in this encounter Care Teams Database Operator Relationship Specialty Start Date End Date Jasmin Maradiaga PA-C [address], [facility] [address] [place] [address] PCP - General Family Medicine 03/16/21 Hector Goode MD [address] [place] [address] Neurology 05/01/17 John Cancino MD [address] [place] [address] Family Medicine - Sports Medicine 07/30/17 Carl Farah MD [address] [facility] [address] [place] [phone] Assigned Heart and Vascular Provider 02/18/21 12/14/21 Jasmin Maradiaga PA-C [address], [address] [place] [address] Assigned PCP 10/20/21 Itzel Polk APRN [employer] MIS[employer] DEF[employer] ARTILLERY NO INFO AVAILABLE 12/27/2021 Assigned Heart and Vascular Provider 12/15/21 05/17/22 Carl Farah MD [address] [facility] [address] [place] [phone] Assigned Heart and Vascular Provider 05/18/22 Hector Goode MD [address] [facility] [id number] [place] [address] Assigned Neuroscience Provider 07/01/23 documented as of this encounter
--- OUTSIDE RECORDS SUMMARY | 2024-02-02 15:47 | XMS_ITS | Encounter Summary ---
Author Organization [place] Address [address] [place] [address] Care Team Providers Care Cork Cutter Name Role Phone Marcos Sandoval MD Primary Care Provider Unav ailable Hector Goode MD Unavailable John Cancino MD Unavailable [phone] Marcos Sandoval MD Unavailable UnavailKorin Cash MD Unavailable +- 03 Korin Lamb MD Primary Care Provider [phone] Carl Farah MD Unavailable [phone] Marcos Sandoval MD Unavailable UnavailKorin Cash MD Unavailable +- 03 Gavi Cloud MD Unavailable [phone] Jasmin Maradiaga PA-C Unavailable + Itzel Polk APRN JOB CHECKER Unavailable Unavailable Carl Farah MD Unavailable [phone] Jasmin Maradiaga PA-C Primary Care Provid er Gavi Cloud MD Unavailable +[phone] Jasmin Maradiaga PA-C Unavailable + [phone] Itzel Polk APRN JOB CHECKER Unavailable Unavailable Carl Farah MD Unavailable +[phone] Hector Goode MD Unavailable Encounter Details Date Type Department Care Team (Late st Contact Info) Description 12/15/2006 Office Visit-[facility] [place] [address] [facility] [address] [place] [phone] Carl Farah MD [address] [facility] [address] [place] [phone] Social History Tobacco Use Types Packs/Day Years Used Date Smoking Tobacco: Never Alcohol Use Standard Drinks/Week Comments No 0 (1 standard drink = 0.6 oz pur e alcohol) on occ Comments No Sex and Gender Information Value Date Recorded Sex Assigned at Not on file Legal Sex Female 2:58 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 DATE: 12/15/2006 GRISELDA LAI DATE OF : 1945 AGE: [age] years old Referring Physician: MARCOS SANDOVAL Referring Clinic: [facility] CURRENT DIAGNOSES 1. - Congestive [...] asthma, CPAP machine, [facility] stopped 02-12, hyperlipidemia Past Cardiac Illnesses: [...] Description 06/14/2024 1:00 PM CDT Office Visit [facility] [address] 3rd [place] [phone] Hector Goode MD [address] [place] [address] [id number] [place], [place] [address] Scheduled Procedures Name Priority Associated Diagnoses Date/Ti mn CHOLECYSTECTOMY, LAPAROSCOPIC Cholecystitis Choledocholithiasis with acute cholecystitis 02/02/2024 12:27 PM MANUFACTURING PRODUCTION MANAGER ENDOSCOPIC RETROGRADE CHOLANGIOPANCREATOGRAPHY, COMPLEX Cholecystitis Choledocholithiasis with acute cholecystitis 02/02/2024 12:27 PM MANUFACTURING PRODUCTION MANAGER ENDOSCOPIC ULTRASOUND, ESOPHAGOSCOPY / UPPER GASTROINTESTINAL TRACT (GI) Cholecystitis Choledocholithiasis with acute cholecystitis 02/02/2024 12:27 PM MANUFACTURING PRODUCTION MANAGER ENDOSCOPIC RETROGRADE CHOLANGIOPANCREATOGRAPHY, COMPLEX Cholecystitis Choledocholithiasis with acute cholecystitis documented as of this encounter Visit Diagnoses Not on filedocumented in this encounter Care Teams Cork Cutter Relationship Specialty Start Date End Date Marcos Sandoval MD NO INFO AVAILABLE 10/03/22 PCP - General 03/27/99 08/11/19 Korin Lamb MD [address] , [address] [address] PCP - General Family Practice 08/12/19 03/15/21 Jasmin Maradiaga PA-C [address] , [address] [address] PCP - General Family Medicine 03/16/21 Hector Goode MD [address] [place] [address] MD [facility] 05/01/17 John Cancino MD [address] [place] [address] Family Medicine - Sports Medicine 07/30/17 Marcos Sandoval MD NO INFO AVAILABLE 10/03/22 Assigned PCP 02/08/18 06/05/19 Korin Lamb MD [address] [address] Assigned PCP 06/06/19 04/29/20 Carl Farah MD [address] [place] [phone] Assigned Heart and Vascular Provider 12/31/19 12/16/20 Marcos Sandoval MD NO INFO AVAILABLE 10/03/22 Assigned PCP 04/30/20 05/06/20 Korin Lamb MD [address], [address] [place], [place] [address] Assigned PCP 05/07/20 05/28/20 Gavi Colud MD [address] [place] [address] Assigned PCP 05/29/20 01/06/21 Jasmin Maradiaga PA-C [address], [address] [place] [address] Assigned PCP 01/07/21 09/28/21 Itzel Polk APRN CNP NO INFO AVAILABLE 12/27/2021 Assigned Heart and Vascular Provider 12/17/20 02/17/21 Carl Farah MD [address] [place] [phone] Assigned Heart and Vascular Provider 02/18/21 12/14/21 Gavi Cloud MD [address] [place] [address] Assigned PCP 09/29/21 10/19/21 Jasmin Maradiaga PA-C [address], [address] [place] [address] Assigned PCP 10/20/21 Itzel Polk APRN JOB CHECKER NO INFO AVAILABLE 12/27/2021 Assigned Heart and Vascular Provider 12/15/21 05/17/22 Carl Farah MD [address] [facility] [address] [place] [phone] Assigned Heart and Vascular Provider 05/18/22 Hector Goode MD [address] [facility] [id number] [place], [place] [address] Assigned Neuroscience Provider 07/01/23 documented as of this encounter
--- OUTSIDE RECORDS SUMMARY | 2024-02-02 15:47 | XMS_ITS | Encounter Summary ---
Author Organization [place] Address [address] [place] [address] Care Team Providers Care Cert Pharmacy Tech Name Role Phone Roslyn Sandoval MD Primary Care Provider Unav ailable Hector Goode MD Unavailable John Cancino MD Unavailable [phone] Roslyn Sandoval MD Unavailable UnavailKorin Cash MD Unavailable +- 03 Korin Lamb MD Primary Care Provider [phone] Carl Farah MD Unavailable [phone] Roslyn Sandoval MD Unavailable UnavailKorin Cash MD Unavailable +- 03 Gavi Cloud MD Unavailable +[phone] Jasmin Maradiaga PA-C Unavailable + Itzel Polk APRN ETHNOLOGY TEACHER Unavailable Unavailable Carl Farah MD Unavailable [phone] Jasmin Maradiaga PA-C Primary Care Provid er Gavi Cloud MD Unavailable +[phone] Jasmin Maradiaga PA-C Unavailable + [phone] Itzel Polk APRN ETHNOLOGY TEACHER Unavailable Unavailable Carl Farah MD Unavailable [phone] Hector Goode MD Unavailable Reason for Visit * Reason Comments Medication Refill Encounter Details Date Type Department Care Team (Late st Contact Info) Description 08/27/2014 Refill [facility] [address] [place] [address] [address] [place] [address] Roslyn Sandoval MD NO INFO AVAILABLE 10/03/22 Medication Refill Social History Tobacco Use Types Packs/Day Years Used Date Smoking Tobacco: Never Smokeless Tobacco: Never Alcohol Use Standard Drinks/Week Comments Yes 0 (1 standard drink = 0.6 oz pur e alcohol) VERY RARE Comments No Sex and Gender Information Value Date Recorded Sex Assigned at Not on file Legal Sex Female 2:58 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 She says its not necessary. I informed her that her last K level was 02/20. She declines lab only appt. George * Telephone Encounter - Roslyn Sandoval MD - 08/30/2014 3:36 PM CDT george- I refilled a [facility] day [facility] with request for lab only appt (standing potassium order is in [facility]) * Telephone Encounter - Ingrid Apple - 08/30/2014 12:24 PM CDT Pt refuses to come in. George * Telephone Encounter - Ingrid Apple - 08/30/2014 9:14 AM CDT LM for pt to call me back to schedule. George * Telephone Encounter - Roslyn Sandoval MD [...] # 30 day has been sent to [facility] in [place]. Original request came from [email or web address]. Thanks George documented in this encounter Plan of Treatment Upcoming Encounters Date Type Department Care Team (Late st Contact Info) Description 06/14/2024 1:00 PM CDT Office Visit [facility] Neurology Clinic [address] 3rd [place] [address] Hector Goode MD [address] [place] [address] [id number] [place], [place] [address] Scheduled Procedures Name Priority Associated Diagnoses Date/Ti me CHOLECYSTECTOMY, LAPAROSCOPIC Cholecystitis Choledocholithiasis with acute cholecystitis 02/02/2024 12:27 PM MAIL SORTER ENDOSCOPIC RETROGRADE CHOLANGIOPANCREATOGRAPHY, COMPLEX Cholecystitis Choledocholithiasis with acute cholecystitis 02/02/2024 12:27 PM MAIL SORTER ENDOSCOPIC ULTRASOUND, ESOPHAGOSCOPY / UPPER GASTROINTESTINAL TRACT (GI) Cholecystitis Choledocholithiasis with acute cholecystitis 02/02/2024 12:27 PM MAIL SORTER ENDOSCOPIC RETROGRADE CHOLANGIOPANCREATOGRAPHY, COMPLEX Cholecystitis Choledocholithiasis with acute cholecystitis documented as of this encounter Visit Diagnoses Diagnosis Other primary cardiomyopathies- Primary Medication management Encounter for other specified aftercare Need for vaccination against Streptococcus pneumoniae Need for prophylactic vaccination against streptococcus pneumoniae (pneumococcus) documented in this encounter Care Teams Cert Pharmacy Tech Relationship Specialty Start Date End Date Roslyn Sandoval MD NO INFO AVAILABLE 10/03/22 PCP - General 03/27/99 08/11/19 Korin Lamb MD [address] , [address] [address] PCP - General Family Practice 08/12/19 03/15/21 Jasmin Maradiaga PA-C [address] , [address] [address] PCP - General Family Medicine 03/16/21 Hector Goode MD [address] [address] Neurology 05/01/17 John Cancino MD [address] [address] Family Medicine - Sports Medicine 07/30/17 Roslyn Sandoval MD NO INFO AVAILABLE 10/03/22 Assigned PCP 02/08/18 06/05/19 Korin Lamb MD [address] [address] Assigned PCP 06/06/19 04/29/20 Carl Farah MD [address] [facility] [address] [place] [phone] Assigned Heart and Vascular Provider 12/31/19 12/16/20 Roslyn Sandoval MD NO INFO AVAILABLE 10/03/22 Assigned PCP 04/30/20 05/06/20 Korin Lamb MD [address], [address] [address] [place] [address] Assigned PCP 05/07/20 05/28/20 Gavi Cloud MD [address] [place] [address] Assigned PCP 05/29/20 01/06/21 Jasmin Maradiaga PA-C [address] , [address] [address] Assigned PCP 01/07/21 09/28/21 Itzel Polk APRN CNP NO INFO AVAILABLE 12/27/2021 Assigned Heart and Vascular Provider 12/17/20 02/17/21 Carl Farah MD [address] [facility] [address] [place] [phone] Assigned Heart and Vascular Provider 02/18/21 12/14/21 Gavi Cloud MD [address] [place] [address] Assigned PCP 09/29/21 10/19/21 Jasmin Maradiaga PA-C [address], [address] [address] Assigned PCP 10/20/21 Itzel Polk APRN ETHNOLOGY TEACHER NO INFO AVAILABLE 12/27/2021 Assigned Heart and Vascular Provider 12/15/21 05/17/22 Carl Farah MD [address] [place] [address] Assigned Heart and Vascular Provider 05/18/22 Hector Goode MD [address] [facility], [place] [address] Assigned Neuroscience Provider 07/01/23 documented as of this encounter
--- OUTSIDE RECORDS SUMMARY | 2024-02-02 15:47 | XMS_ITS | Encounter Summary ---
Author Organization [place] Address [address] [place] [address] Care Team Providers Care Brood Station Manager Name Role Phone Marcos Sandoval MD Primary Care Provider Unav ailable Hector Goode MD Unavailable John Cancino MD Unavailable [phone] Marcos Sandoval MD Unavailable UnavailKorin Cash MD Unavailable +- 03 Korin Lamb MD Primary Care Provider [phone] Carl Farah MD Unavailable +[phone] Marcos Sandoval MD Unavailable UnavailKorin Cash MD Unavailable +- 03 Gavi Cloud MD Unavailable +[phone] Jasmin Maradiaga PA-C Unavailable + Ian Polk APRN LUSTER APPLICATOR Unavailable Unavailable Carl Farah MD Unavailable +[phone] Jasmin Maradiaga PA-C Primary Care Provid er Gavi Cloud MD Unavailable +[phone] Jasmin Maradiaga PA-C Unavailable + [phone] Ian Polk APRN LUSTER APPLICATOR Unavailable Unavailable Carl Farah MD Unavailable +[phone] Hector Goode MD Unavailable Encounter Details Date Type Department Care Team (Late st Contact Info) Description 03/14/2006 Office Visit-[facility] [place] [address] [facility] [address] [place] [phone] Sandra Chris PA-C [address] [place], [place] [phone] Social History Tobacco Use Types Packs/Day Years Used Date Smoking Tobacco: Never Alcohol Use Standard Drinks/Week Comments No 0 (1 standard drink = 0.6 oz pur e alcohol) on occ Comments No Sex and Gender Information Value Date Recorded Sex Assigned at Not on file Legal Sex Female 2:58 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 CURRENT DIAGNOSES 1. - [...] ILLNESS This pleasant 61-year-old woman returns to [facility] with concerns for worsening dyspnea. [...] Residence - lives alone; Place of - [place]; Spouse's Occupation - ; REVIEW OF SYSTEMS [...] Breath with minimal exertion, Sandra Lo RN, LUSTER APPLICATOR documented in this encounter Plan of Treatment Upcoming Encounters Date Type Department Care Team (Late st Contact Info) Description 06/14/2024 1:00 PM CDT Office Visit [facility]rology Clinic [address] 3rd [place] [address] Hector Goode MD [address] [address] Scheduled Procedures Name Priority Associated Diagnoses Date/Ti nv CHOLECYSTECTOMY, LAPAROSCOPIC Cholecystitis Choledocholithiasis with acute cholecystitis 02/02/2024 12:27 PM ANALYTICAL DATA MINER ENDOSCOPIC RETROGRADE CHOLANGIOPANCREATOGRAPHY, COMPLEX Cholecystitis Choledocholithiasis with acute cholecystitis 02/02/2024 12:27 PM ANALYTICAL DATA MINER ENDOSCOPIC ULTRASOUND, ESOPHAGOSCOPY / UPPER GASTROINTESTINAL TRACT (GI) Cholecystitis Choledocholithiasis with acute cholecystitis 02/02/2024 12:27 PM ANALYTICAL DATA MINER ENDOSCOPIC RETROGRADE CHOLANGIOPANCREATOGRAPHY, COMPLEX Cholecystitis Choledocholithiasis with acute cholecystitis documented as of this encounter Visit Diagnoses Not on filedocumented in this encounter Care Teams Brood Station Manager Relationship Specialty Start Date End Date Marcos Sandoval MD NO INFO AVAILABLE 10/03/22 PCP - General 03/27/99 08/11/19 Korin Lamb MD [address] , [address] [address] PCP - General Family Practice 08/12/19 03/15/21 Jasmin Maradiaga PA-C [address] , [address] [address] PCP - General Family Medicine 03/16/21 Hector Goode MD [address] [place] [address] Neurology 05/01/17 John Cancino MD [address] [place] [id number] Family Medicine - Sports Medicine 07/30/17 Marcos Sandoval MD NO INFO AVAILABLE 10/03/22 Assigned PCP 02/08/18 06/05/19 Korin Lamb MD [address] [place] [address] Assigned PCP 06/06/19 04/29/20 Carl Farah MD [address] [place] [phone] Assigned Heart and Vascular Provider 12/31/19 12/16/20 Marcso Sandoval MD NO INFO AVAILABLE 10/03/22 Assigned PCP 04/30/20 05/06/20 Korin Lamb MD [address], [address] [place] [address] Assigned PCP 05/07/20 05/28/20 Gavi Cloud MD [address] [place] [address] Assigned PCP 05/29/20 01/06/21 Jasmin Maradiaga PA-C [address], [address] [place] [address] Assigned PCP 01/07/21 09/28/21 Ian Polk APRN CNP NO INFO AVAILABLE 12/27/2021 Assigned Heart and Vascular Provider 12/17/20 02/17/21 Carl Farah MD [address] [place] [address] Assigned Heart and Vascular Provider 02/18/21 12/14/21 Gavi Cloud MD [address] [place] [address] Assigned PCP 09/29/21 10/19/21 Jasmin Maradiaga PA-C [address], [address] [place] [address] Assigned PCP 10/20/21 Ian Polk APRN CNP NO INFO AVAILABLE 12/27/2021 Assigned Heart and Vascular Provider 12/15/21 05/17/22 Carl Farah MD [address] [place] [phone] Assigned Heart and Vascular Provider 05/18/22 Hector Goode MD [address] [facility] [id number] [place] [address] Assigned Neuroscience Provider 07/01/23 documented as of this encounter
--- OUTSIDE RECORDS SUMMARY | 2024-02-02 15:47 | XMS_ITS | Encounter Summary ---
Author Organization [facility] Address [address] [place] [address] Care Team Providers Care Asphalt Plant Operator Name Role Phone Marcos Sandoval MD Primary Care Provider Unav ailable Hector Goode MD Unavailable John Cancino MD Unavailable [phone] Marcos Sandoval MD Unavailable UnavailKorin Cash MD Unavailable +- 03 Korin Lamb MD Primary Care Provider [phone] Carl Farah MD Unavailable +[phone] Marcos Sandoval MD Unavailable UnavailKorin Cash MD Unavailable +- 03 Gavi Cloud MD Unavailable +[phone] Jasmin Maradiaga PA-C Unavailable + Itzel Polk APRN DIRECTOR OF PHYSICIAN PRACTICES Unavailable Unavailable Carl Farah MD Unavailable +[phone] Jasmin Maradiaga PA-C Primary Care Provid er Gavi Cloud MD Unavailable +[phone] Jasmin Maradiaga PA-C Unavailable + [phone] Itzel Polk APRN DIRECTOR OF PHYSICIAN PRACTICES Unavailable Unavailable Carl Farah MD Unavailable +[phone] Hector Goode MD Unavailable Encounter Details Date Type Department Care Team (Late st Contact Info) Description 05/24/2013 Office Visit-[facility] [place] [address] [facility] [address] [place] [phone] Carl Farah MD [address] [facility] [address] [place] [phone] Social History Tobacco Use Types Packs/Day Years Used Date Smoking Tobacco: Never Smokeless Tobacco: Never Alcohol Use Standard Drinks/Week Comments Yes 0 (1 standard drink = 0.6 oz pur e alcohol) VERY RARE Comments No Sex and Gender Information Value Date Recorded Sex Assigned at Not on file Legal Sex Female 2:58 AM CHEF HEAD Gender Identity Not on file Sexual Orientation Not on file documented as of this encounter Progress Notes * Carl Farah MD - 05/25/2013 12:14 PM CDT Progress Note Created by: Carl aFrah M.D. DATE: 05/24/2013 GRISELDA LAI DATE OF : 1945 AGE: [age] years old Referring Physician: MARCOS SANDOVAL Referring Clinic: [facility] CURRENT DIAGNOSES 1. - Hypercholesterolemia, [...] asthma, CPAP machine, MRA/MRI of head at [facility] coumadin stopped 02-12, hyperlipidemia, familial- fascioscapularhumeral-muscular [...] Residence - lives alone; Place of - [place]; Spouse's Occupation - ; REVIEW OF SYSTEMS [...] CDT Office Visit [facility] [address] [place] [address] Hector Goode MD [address] [place] [address] [id number] [place] [address] Scheduled Procedures Name Priority Associated Diagnoses Date/Ti me CHOLECYSTECTOMY, LAPAROSCOPIC Cholecystitis Choledocholithiasis with acute cholecystitis 02/02/2024 12:27 PM CHEF HEAD ENDOSCOPIC RETROGRADE CHOLANGIOPANCREATOGRAPHY, COMPLEX Cholecystitis Choledocholithiasis with acute cholecystitis 02/02/2024 12:27 PM CHEF HEAD ENDOSCOPIC ULTRASOUND, ESOPHAGOSCOPY / UPPER GASTROINTESTINAL TRACT (GI) Cholecystitis Choledocholithiasis with acute cholecystitis 02/02/2024 12:27 PM CHEF HEAD ENDOSCOPIC RETROGRADE CHOLANGIOPANCREATOGRAPHY, COMPLEX Cholecystitis Choledocholithiasis with acute cholecystitis documented as of this encounter Visit Diagnoses Not on filedocumented in this encounter Care Teams Asphalt Plant Operator Relationship Specialty Start Date End Date Marcos Sandoval MD NO INFO AVAILABLE 10/03/22 PCP - General 03/27/99 08/11/19 Korin Lamb MD [address], [place] [address] [place] [address] PCP - General Family Practice 08/12/19 03/15/21 Jasmin Maradiaga PA-C [address], [place] [address] [place] [address] PCP - General Family Medicine 03/16/21 Hector Goode MD [address] [address] Neurology 05/01/17 John Cancino MD [address] 714185 Family Medicine - Sports Medicine 07/30/17 Marcos Sandoval MD NO INFO AVAILABLE 10/03/22 Assigned PCP 02/08/18 06/05/19 Korin Lmab MD [address] , [address] [address] Assigned PCP 06/06/19 04/29/20 Carl Farah MD [address] [place] [phone] Assigned Heart and Vascular Provider 12/31/19 12/16/20 Marcos Sandoval MD NO INFO AVAILABLE 10/03/22 Assigned PCP 04/30/20 05/06/20 Korin Lamb MD [address], [address] [address] Assigned PCP 05/07/20 05/28/20 Gavi Cloud MD [address] [place] [address] Assigned PCP 05/29/20 01/06/21 Jasmin Maradiaga PA-C [address], [address] [place] [address] Assigned PCP 01/07/21 09/28/21 Itzel Polk APRN DIRECTOR OF PHYSICIAN PRACTICES NO INFO AVAILABLE 12/27/2021 Assigned Heart and Vascular Provider 12/17/20 02/17/21 Carl Farah MD [address] [place] [phone] Assigned Heart and Vascular Provider 02/18/21 12/14/21 Gavi Cloud MD [address] [place] [address] Assigned PCP 09/29/21 10/19/21 Jasmin Maradiaga PA-C [address], [address] [place] [address] Assigned PCP 10/20/21 Itzel Polk APRN DIRECTOR OF PHYSICIAN PRACTICES NO INFO AVAILABLE 12/27/2021 Assigned Heart and Vascular Provider 12/15/21 05/17/22 Carl Farah MD [address] [place] [phone] Assigned Heart and Vascular Provider 05/18/22 Hector Goode MD 9 [facility] [id number] [place] [address] Assigned Neuroscience Provider 07/01/23 documented as of this encounter
--- OUTSIDE RECORDS SUMMARY | 2024-02-02 15:47 | XMS_ITS | Encounter Summary ---
Author Organization [facility] Address [address] [place] [address] Care Team Providers Care Beater Room Supervisor Name Role Phone Marcos Sandoval MD Primary Care Provider Unav ailable Hector Goode MD Unavailable John Cancino MD Unavailable [phone] Marcos Sandoval MD Unavailable UnavailKorin Cash MD Unavailable +- 03 Korin Lamb MD Primary Care Provider [phone] Carl Farah MD Unavailable +[phone] Marcos Sandoval MD Unavailable UnavailKorin Cash MD Unavailable +- 03 Gavi Cloud MD Unavailable +[phone] Jasmin Maradiaga PA-C Unavailable + Itzel Polk APRN TAR AND AMMONIA PUMP OPERATOR Unavailable Unavailable Carl Farah MD Unavailable +[phone] Jasmin Maradiaga PA-C Primary Care Provid er Gavi Cloud MD Unavailable +[phone] Jasmin Maradiaga PA-C Unavailable + [phone] Itzel Polk APRN TAR AND AMMONIA PUMP OPERATOR Unavailable Unavailable Carl Farah MD Unavailable +[phone] Hector Goode MD Unavailable Encounter Details Date Type Department Care Team (Late st Contact Info) Description 03/19/2011 Office Visit-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 DATE: 03/19/2011 GRISELDA LAI DATE OF : 1945 AGE: [age] years old Referring Physician: MARCOS SANDOVAL Referring Clinic: [facility] CURRENT DIAGNOSES 1. 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 [address] [place] [address] Hector Goode MD [address] [place] [address] [id number] [place] [address] Scheduled Procedures Name Priority Associated Diagnoses Date/Ti or CHOLECYSTECTOMY, LAPAROSCOPIC Cholecystitis Choledocholithiasis with acute cholecystitis 02/02/2024 12:27 PM NFL PLAYER ENDOSCOPIC RETROGRADE CHOLANGIOPANCREATOGRAPHY, COMPLEX Cholecystitis Choledocholithiasis with acute cholecystitis 02/02/2024 12:27 PM NFL PLAYER ENDOSCOPIC ULTRASOUND, ESOPHAGOSCOPY / UPPER GASTROINTESTINAL TRACT (GI) Cholecystitis Choledocholithiasis with acute cholecystitis 02/02/2024 12:27 PM NFL PLAYER ENDOSCOPIC RETROGRADE CHOLANGIOPANCREATOGRAPHY, COMPLEX Cholecystitis Choledocholithiasis with acute cholecystitis documented as of this encounter Visit Diagnoses Not on filedocumented in this encounter Care Teams Beater Room Supervisor Relationship Specialty Start Date End Date Marcos Sandoval MD NO INFO AVAILABLE 10/03/22 PCP - General 03/27/99 08/11/19 Korin Lamb MD [address] [address] PCP - General Family Practice 08/12/19 03/15/21 Jasmin Maradiaga PA-C [address] [address] PCP - General Family Medicine 03/16/21 Hector Goode MD [address] [address] Neurology 05/01/17 John Cancino MD [address] [place] [address] [id number] Family Medicine - Sports Medicine 07/30/17 Marcos Sandoval MD NO INFO AVAILABLE 10/03/22 Assigned PCP 02/08/18 06/05/19 Korin Lamb MD [address] [address] Assigned PCP 06/06/19 04/29/20 Carl Farah MD 6[address] [facility] [address] [place] [phone] Assigned Heart and Vascular Provider 12/31/19 12/16/20 Marcos Sandoval MD NO INFO AVAILABLE 10/03/22 Assigned PCP 04/30/20 05/06/20 Korin Lamb MD [address], [address] [place] [address] Assigned PCP 05/07/20 05/28/20 Gavi Cloud MD [address] [place] [address] Assigned PCP 05/29/20 01/06/21 Jasmin Maradiaga PA-C [address], [address] [place] [address] Assigned PCP 01/07/21 09/28/21 Itzel Polk APRN TAR AND AMMONIA PUMP OPERATOR NO INFO AVAILABLE 12/27/2021 Assigned Heart and Vascular Provider 12/17/20 02/17/21 Carl Farah MD [address] [place] [phone] Assigned Heart and Vascular Provider 02/18/21 12/14/21 Gavi Cloud MD [address] [place] [address] Assigned PCP 09/29/21 10/19/21 Jasmin Maradiaga PA-C [address], [facility] 100 [place] [address] Assigned PCP 10/20/21 Itzel Polk APRN TAR AND AMMONIA PUMP OPERATOR NO INFO AVAILABLE 12/27/2021 Assigned Heart and Vascular Provider 12/15/21 05/17/22 Carl Farah MD [address] [place] [phone] Assigned Heart and Vascular Provider 05/18/22 Hector Goode MD 909 [facility] [id number] [place] [address] Assigned Neuroscience Provider 07/01/23 documented as of this encounter
--- OUTSIDE RECORDS SUMMARY | 2024-02-02 15:47 | XMS_ITS | Encounter Summary ---
Author Organization [facility] Address [address] [place] [address] Care Team Providers Care Cottage Master Name Role Phone Roslyn Sandoval MD Primary Care Provider Unav ailable Hector Goode MD Unavailable John Cancino MD Unavailable [phone] Roslyn Sandoval MD Unavailable UnavailKorin Cash MD Unavailable +- 03 Korin Lamb MD Primary Care Provider [phone] Carl Farah MD Unavailable [phone] Roslyn Sandoval MD Unavailable UnavailKorin Cash MD Unavailable +- 03 Gavi Cloud MD Unavailable +[phone] Jasmin Maradiaga PA-C Unavailable + Itzel Polk APRN SENIOR ORACLE DEVELOPER Unavailable Unavailable Carl Farah MD Unavailable +[phone] Jasmin Maradiaga PA-C Primary Care Provid er Gavi Cloud MD Unavailable +[phone] Jasmin Maradiaga PA-C Unavailable + [phone] Itzel Polk APRN SENIOR ORACLE DEVELOPER Unavailable Unavailable Carl Farah MD Unavailable +[phone] Hector Goode MD Unavailable Reason for Visit * Reason Comments Medication Refill Encounter Details Date Type Department Care Team (Late st Contact Info) Description 06/04/2019 Refill [facility] [address] [facility] [place] [address] [place] [address] Roslyn Sandoval MD NO INFO [...] on file 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 Routing to customer experience consultant provider Dr. Lamb for review, are you able to resend this in for the patient? documented in this encounter Plan of Treatment Upcoming Encounters Date Type Department Care Team (Late st Contact Info) Description 06/14/2024 1:00 PM CDT Office Visit [facility] Neurology [address] 3rd [place] [address] Hector Goode MD [address] [address] Scheduled Procedures Name Priority Associated Diagnoses Date/Ti me CHOLECYSTECTOMY, LAPAROSCOPIC Cholecystitis Choledocholithiasis with acute cholecystitis 02/02/2024 12:27 PM CODING AND REIMBURSEMENT SPECIALIST ENDOSCOPIC RETROGRADE CHOLANGIOPANCREATOGRAPHY, COMPLEX Cholecystitis Choledocholithiasis with acute cholecystitis 02/02/2024 12:27 PM CODING AND REIMBURSEMENT SPECIALIST ENDOSCOPIC ULTRASOUND, ESOPHAGOSCOPY / UPPER GASTROINTESTINAL TRACT (GI) Cholecystitis Choledocholithiasis with acute cholecystitis 02/02/2024 12:27 PM CODING AND REIMBURSEMENT SPECIALIST ENDOSCOPIC RETROGRADE CHOLANGIOPANCREATOGRAPHY, COMPLEX Cholecystitis Choledocholithiasis with acute cholecystitis documented as of this encounter Visit Diagnoses Diagnosis Chronic pain syndrome documented in this encounter Care Teams Cottage Master Relationship Specialty Start Date End Date Roslyn Sandoval MD NO INFO AVAILABLE 10/03/22 PCP - General 03/27/99 08/11/19 Korin Lamb MD [address] , [address] [address] PCP - General Family Practice 08/12/19 03/15/21 Jasmin Maradiaga PA-C [address] , [address] [address] PCP - General Family Medicine 03/16/21 Hector Goode MD [address] [address] Neurology 05/01/17 John Cancino MD [address] [address] Family Medicine - Sports Medicine 07/30/17 Roslyn Sandoval MD NO INFO AVAILABLE 10/03/22 Assigned PCP 02/08/18 06/05/19 Korin Lamb MD [address], [address] [place] [address] Assigned PCP 06/06/19 04/29/20 Carl Farah MD [address] [place] [phone] Assigned Heart and Vascular Provider 12/31/19 12/16/20 Roslyn Sandoval MD NO INFO AVAILABLE 10/03/22 Assigned PCP 04/30/20 05/06/20 Korin Lamb MD [address], [address] [place] [address] Assigned PCP 05/07/20 05/28/20 Gavi Cloud MD [address] [place] [address] Assigned PCP 05/29/20 01/06/21 Jasmin Maradiaga PA-C [address], [address] [place] [address] Assigned PCP 01/07/21 09/28/21 Itzel Polk APRN CNP NO INFO AVAILABLE 12/27/2021 Assigned Heart and Vascular Provider 12/17/20 02/17/21 Carl Farah MD [address] [place] [address] Assigned Heart and Vascular Provider 02/18/21 12/14/21 Gavi Cloud MD [address] [place] [address] Assigned PCP 09/29/21 10/19/21 Jasmin Maradiaga PA-C [address], [address] [place] [address] Assigned PCP 10/20/21 Itzel Polk APRN CNP NO INFO AVAILABLE 12/27/2021 Assigned Heart and Vascular Provider 12/15/21 05/17/22 Carl Farah MD [address] [place] [phone] Assigned Heart and Vascular Provider 05/18/22 Hector Goode MD 909 [facility] [place] [id number] [address] Assigned Neuroscience Provider 07/01/23 documented as of this encounter
--- OUTSIDE RECORDS SUMMARY | 2024-02-02 15:47 | XMS_ITS | Encounter Summary ---
Author Organization [facility] Address [address] [place] [address] Care Team Providers Care Regional Sales Manager Name Role Phone Marcos Sandoval MD Primary Care Provider Unav ailable Hector Goode MD Unavailable John Cancino MD Unavailable [phone] Marcos Sandoval MD Unavailable UnavailKorin Cash MD Unavailable +- 03 Korin Lamb MD Primary Care Provider [phone] Carl Farah MD Unavailable +[phone] Marcos Sandoval MD Unavailable UnavailKorin Cash MD Unavailable +- 03 Gavi Cloud MD Unavailable +[phone] Jasmin Maradiaga PA-C Unavailable + Ian Polk APRN PIN DRAFTER OPERATOR Unavailable Unavailable Carl Farah MD Unavailable +[phone] Jasmin Maradiaga PA-C Primary Care Provid er Gavi Cloud MD Unavailable +[phone] Jasmin Maradiaga PA-C Unavailable + [phone] Ian Polk APRN PIN DRAFTER OPERATOR Unavailable Unavailable Carl Farah MD Unavailable +[phone] Hector Goode MD Unavailable Encounter Details Date Type Department Care Team (Late st Contact Info) Description 09/08/2007 Office Visit-[facility] [address] [place] [phone] Ian Polk APRN PIN DRAFTER OPERATOR NO INFO AVAILABLE 12/27/2021 Social History Tobacco Use Types Packs/Day Years Used Date Smoking Tobacco: Never Alcohol Use Standard Drinks/Week Comments No 0 (1 standard drink = 0.6 oz pur e alcohol) Comments No Sex and Gender Information Value Date Recorded Sex Assigned at Not on file 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 DATE: 09/08/2007 GRISELDA LAI DATE OF : 1945 AGE: [age] years old Referring Physician: MARCOS SANDOVAL Referring Clinic: [facility] CURRENT DIAGNOSES 1. - Congestive Heart [...] of breath with fatigue and went to [facility] for afull work-up in 2005 and was [...] to symptoms she had prior to her [facility] visit where she was deem to be [...] asthma, CPAP machine, MRA/MRI of head at [place] coumadin stopped 02-12, hyperlipidemia Past Cardiac Illnesses: [...] CDT Office Visit [facility] [address] 3rd [place] [phone] Hector Goode MD [address] [place] [address] [id number] [place] [address] Scheduled Procedures Name Priority Associated Diagnoses Date/Ti me CHOLECYSTECTOMY, LAPAROSCOPIC Cholecystitis Choledocholithiasis with acute cholecystitis 02/02/2024 12:27 PM APPIAN DEVELOPER ENDOSCOPIC RETROGRADE CHOLANGIOPANCREATOGRAPHY, COMPLEX Cholecystitis Choledocholithiasis with acute cholecystitis 02/02/2024 12:27 PM APPIAN DEVELOPER ENDOSCOPIC ULTRASOUND, ESOPHAGOSCOPY / UPPER GASTROINTESTINAL TRACT (GI) Cholecystitis Choledocholithiasis with acute cholecystitis 02/02/2024 12:27 PM APPIAN DEVELOPER ENDOSCOPIC RETROGRADE CHOLANGIOPANCREATOGRAPHY, COMPLEX Cholecystitis Choledocholithiasis with acute cholecystitis documented as of this encounter Visit Diagnoses Not on filedocumented in this encounter Care Teams Regional Sales Manager Relationship Specialty Start Date End Date Marcos Sandoval MD NO INFO AVAILABLE 10/03/22 PCP - General 03/27/99 08/11/19 Korin Lamb MD [address], [address] [place] [address] PCP - General Family Practice 08/12/19 03/15/21 Jasmin Maradiaga PA-C [address] , [address] [address] PCP - General Family Medicine 03/16/21 Hector Goode MD [address] [address] Neurology 05/01/17 John Cancino MD [address] [address] Family Medicine - Sports Medicine 07/30/17 Marcos Sandoval MD NO INFO AVAILABLE 10/03/22 Assigned PCP 02/08/18 06/05/19 Korin Lamb MD [address] , [address] [address] Assigned PCP 06/06/19 04/29/20 Carl Farah MD [address] [facility] [address] [place] [phone] Assigned Heart and Vascular Provider 12/31/19 12/16/20 Marcos Sandoval MD NO INFO AVAILABLE 10/03/22 Assigned PCP 04/30/20 05/06/20 Korin Lamb MD [address] , [address] [address] Assigned PCP 05/07/20 05/28/20 Gavi Cloud MD [address] [place] [address] Assigned PCP 05/29/20 01/06/21 Jasmin Maradiaga PA-C [address], [address] [place] [address] Assigned PCP 01/07/21 09/28/21 Ian Polk APRN PIN DRAFTER OPERATOR NO INFO AVAILABLE 12/27/2021 Assigned Heart and Vascular Provider 12/17/20 02/17/21 Carl Farah MD [address] [place] [phone] Assigned Heart and Vascular Provider 02/18/21 12/14/21 Gavi Cloud MD [address] [place] [address] Assigned PCP 09/29/21 10/19/21 Jasmin Maradiaga PA-C [address], [facility] 100 [place] [address] Assigned PCP 10/20/21 Ian Polk APRN PIN DRAFTER OPERATOR NO INFO AVAILABLE 12/27/2021 Assigned Heart and Vascular Provider 12/15/21 05/17/22 Carl Farah MD [address] [place] [phone] Assigned Heart and Vascular Provider 05/18/22 Hector Goode MD 9 [facility], [place] [address] Assigned Neuroscience Provider 07/01/23 documented as of this encounter
--- OUTSIDE RECORDS SUMMARY | 2024-02-02 15:47 | XMS_ITS | Encounter Summary ---
Author Organization [place] Address [address] [place] [address] Care Team Providers Care Suspender Cutter Name Role Phone Marcos Sandoval MD Primary Care Provider Unav ailable Hector Goode MD Unavailable John Cancino MD Unavailable [phone] Marcos Sandoval MD Unavailable UnavailKorin Cash MD Unavailable +- 03 Korin Lamb MD Primary Care Provider [phone] Carl Farah MD Unavailable +[phone] Marcos Sandoval MD Unavailable UnavailKorin Cash MD Unavailable +- 03 Gavi Cloud MD Unavailable +[phone] Jasmin Maradiaga PA-C Unavailable + Ian Polk APRN EXCHANGE SPECIALIST Unavailable Unavailable Carl Farah MD Unavailable +[phone] Jasmin Maradiaga PA-C Primary Care Provid er Gavi Cloud MD Unavailable +[phone] Jasmin Maradiaga PA-C Unavailable + [phone] Ian Polk APRN EXCHANGE SPECIALIST Unavailable Unavailable Carl Farah MD Unavailable +[phone] Hector Goode MD Unavailable Encounter Details Date Type Department Care Team (Late st Contact Info) Description 07/13/2009 Office Visit-[facility] Heart [address] [place] [phone] Ian Polk APRN EXCHANGE SPECIALIST NO INFO AVAILABLE 12/27/2021 Social History Tobacco Use Types Packs/Day Years Used Date Smoking Tobacco: Never Alcohol Use Standard Drinks/Week Comments No 0 (1 standard drink = 0.6 oz pur e alcohol) Comments No Sex and Gender Information Value Date Recorded Sex Assigned at Not on file 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 DATE: 07/13/2009 GRISELDA LAI DATE OF : 1945 AGE: [age] years old Referring Physician: MARCOS SANDOVAL Referring Clinic: [facility] CURRENT DIAGNOSES 1. - [...] asthma, CPAP machine, [place]RA[place] [facility] [place]mad[place] stopped 02-12, hyperlipidemia Past Cardiac Illnesses: [...] Residence - lives alone; Place of - [place]; Spouse's Occupation - ; REVIEW OF SYSTEMS [...] Description 06/14/2024 1:00 PM CDT Office Visit [facility] Neurology Clinic [address] [place] [address] Hector Goode MD [address] [place] [address] [id number] [place] [address] Scheduled Procedures Name Priority Associated Diagnoses Date/Ti me CHOLECYSTECTOMY, LAPAROSCOPIC Cholecystitis Choledocholithiasis with acute cholecystitis 02/02/2024 12:27 PM STRING WINDING MACHINE OPERATOR ENDOSCOPIC RETROGRADE CHOLANGIOPANCREATOGRAPHY, COMPLEX Cholecystitis Choledocholithiasis with acute cholecystitis 02/02/2024 12:27 PM STRING WINDING MACHINE OPERATOR ENDOSCOPIC ULTRASOUND, ESOPHAGOSCOPY / UPPER GASTROINTESTINAL TRACT (GI) Cholecystitis Choledocholithiasis with acute cholecystitis 02/02/2024 12:27 PM STRING WINDING MACHINE OPERATOR ENDOSCOPIC RETROGRADE CHOLANGIOPANCREATOGRAPHY, COMPLEX Cholecystitis Choledocholithiasis with acute cholecystitis documented as of this encounter Visit Diagnoses Not on filedocumented in this encounter Care Teams Suspender Cutter Relationship Specialty Start Date End Date Marcos Sandoval MD NO INFO AVAILABLE 10/03/22 PCP - General 03/27/99 08/11/19 Korin Lamb MD [address] [address] PCP - General Family Practice 08/12/19 03/15/21 Jasmin Maradiaga PA-C [address] [address] PCP - General Family Medicine 03/16/21 Hector Goode MD [address] [address] Neurology 05/01/17 John Cancino MD [address] [address] Family Medicine - Sports Medicine 07/30/17 Marcos Sandoval MD NO INFO AVAILABLE 10/03/22 Assigned PCP 02/08/18 06/05/19 Korin Lamb MD [address] [address] Assigned PCP 06/06/19 04/29/20 Carl Farah MD 6405 [facility] [address] [place] [phone] Assigned Heart and Vascular Provider 12/31/19 12/16/20 Marcos Sandoval MD NO INFO AVAILABLE 10/03/22 Assigned PCP 04/30/20 05/06/20 Korin Lamb MD [address], [facility] [address] [place] [address] Assigned PCP 05/07/20 05/28/20 Gavi Cloud MD [address] [place] [address] Assigned PCP 05/29/20 01/06/21 Jasmin Maradiaga PA-C [address] , [address] [address] Assigned PCP 01/07/21 09/28/21 Ian Polk APRN CNP NO INFO AVAILABLE 12/27/2021 Assigned Heart and Vascular Provider 12/17/20 02/17/21 Carl Farah MD 6405 [facility] [address] [place] [address] Assigned Heart and Vascular Provider 02/18/21 12/14/21 Gavi Cloud MD [address] [place] [address] Assigned PCP 09/29/21 10/19/21 Jasmin Maradiaga PA-C [address], [address] [address] Assigned PCP 10/20/21 Ian Polk APRN EXCHANGE SPECIALIST NO INFO AVAILABLE 12/27/2021 Assigned Heart and Vascular Provider 12/15/21 05/17/22 Carl Farah MD [address] [place] [address] Assigned Heart and Vascular Provider 05/18/22 Hector Goode MD 909 [facility] [address] Assigned Neuroscience Provider 07/01/23 documented as of this encounter
--- OUTSIDE RECORDS SUMMARY | 2024-02-02 15:47 | XMS_ITS | Encounter Summary ---
Author Organization [place] Address [address] [place] [address] Care Team Providers Care Supervisor Rolling Room Name Role Phone Roslyn Sandoval MD Primary Care Provider Unav ailable Hector Goode MD Unavailable John Cancino MD Unavailable [phone] Roslyn Sandoval MD Unavailable UnavailKorin Cash MD Unavailable +- 03 Korin Lamb MD Primary Care Provider [phone] Carl Farah MD Unavailable +[phone] Roslyn Sandoval MD Unavailable UnavailKorin Cash MD Unavailable +- 03 Gavi Cloud MD Unavailable +[phone] Jasmin Maradiaga PA-C Unavailable + Itzel Polk APRN DESCRIPTIVE CATALOG LIBRARIAN Unavailable Unavailable Carl Farah MD Unavailable +[phone] Jasmin Maradiaga PA-C Primary Care Provid er Gavi Cloud MD Unavailable +[phone] Jasmin Maradiaga PA-C Unavailable + [phone] Itzel Pokl APRN DESCRIPTIVE CATALOG LIBRARIAN Unavailable Unavailable Carl Farah MD Unavailable +[phone] Hector Goode MD Unavailable Encounter Details Date Type Department Care Team (Late st Contact Info) Description 12/10/2007 Office Visit-[facility] [place] 6[address] [facility] [address] [place] [phone] Carl Farah MD 6402 [facility] [address] [place] [address] Social History Tobacco Use Types Packs/Day Years Used Date Smoking Tobacco: Never Alcohol Use Standard Drinks/Week Comments No 0 (1 standard drink = 0.6 oz pur e alcohol) Comments No Sex and Gender Information Value Date Recorded Sex Assigned at Not on file Legal Sex Female 2:58 AM MEAT BLENDER Gender Identity Not on file Sexual Orientation Not on file documented as of this encounter Progress Notes * Carl Farah MD - 12/15/2007 10:45 AM CDT Progress Note Created by: Carl Farah M.D. DATE: 12/10/2007 GRISELDA LAI DATE OF : 1945 AGE: [age] years old Referring Physician: ROSLYN SANDOVAL Referring Clinic: [facility] CURRENT DIAGNOSES 1. - Cardiomyopathy Idiopathic, [...] asthma, CPAP machine, MRA/MRI of head at [place] coumadin stopped 02-12, hyperlipidemia Past Cardiac Illnesses: [...] Residence - lives alone; Place of - [place]; Spouse's Occupation - ; REVIEW OF SYSTEMS [...] Office Visit [facility] Neurology Clinic [address] 3rd [place] [address] Hector Goode MD [address] [place] [address] [id number] [place], [place] [address] Scheduled Procedures Name Priority Associated Diagnoses Date/Ti me CHOLECYSTECTOMY, LAPAROSCOPIC Cholecystitis Choledocholithiasis with acute cholecystitis 02/02/2024 12:27 PM MEAT BLENDER ENDOSCOPIC RETROGRADE CHOLANGIOPANCREATOGRAPHY, COMPLEX Cholecystitis Choledocholithiasis with acute cholecystitis 02/02/2024 12:27 PM MEAT BLENDER ENDOSCOPIC ULTRASOUND, ESOPHAGOSCOPY / UPPER GASTROINTESTINAL TRACT (GI) Cholecystitis Choledocholithiasis with acute cholecystitis 02/02/2024 12:27 PM MEAT BLENDER ENDOSCOPIC RETROGRADE CHOLANGIOPANCREATOGRAPHY, COMPLEX Cholecystitis Choledocholithiasis with acute cholecystitis documented as of this encounter Visit Diagnoses Not on filedocumented in this encounter Care Teams Supervisor Rolling Room Relationship Specialty Start Date End Date Roslyn Sandoval MD NO INFO AVAILABLE 10/03/22 PCP - General 03/27/99 08/11/19 Korin Lmab MD [address] , [address] [address] PCP - General Family Practice 08/12/19 03/15/21 Jasmin Maradiaga PA-C [address], [facility] 100 [place] [address] PCP - General Family Medicine 03/16/21 Hector Goode MD [address] [address] Neurology 05/01/17 John Cancino MD [address] [address] Family Medicine - Sports Medicine 07/30/17 Roslyn Sandoval MD NO INFO AVAILABLE 10/03/22 Assigned PCP 02/08/18 06/05/19 Korin Lamb MD [address] , [address] [address] Assigned PCP 06/06/19 04/29/20 Carl Farah MD 6405 [facility] [address] [place] [phone] Assigned Heart and Vascular Provider 12/31/19 12/16/20 Roslyn Sandoval MD NO INFO AVAILABLE 10/03/22 Assigned PCP 04/30/20 05/06/20 Korin Lamb MD [address] , [address] [address] Assigned PCP 05/07/20 05/28/20 Gavi Cloud MD [address] [place] [address] Assigned PCP 05/29/20 01/06/21 Jasmin Maradiaga PA-C [address] , [address] [place] [address] Assigned PCP 01/07/21 09/28/21 Itzel Polk APRN DESCRIPTIVE CATALOG LIBRARIAN NO INFO AVAILABLE 12/27/2021 Assigned Heart and Vascular Provider 12/17/20 02/17/21 Carl Farah MD [address] [place] [phone] Assigned Heart and Vascular Provider 02/18/21 12/14/21 Gavi Cloud MD [address] [place] [address] Assigned PCP 09/29/21 10/19/21 Jasmin Maradiaga PA-C [address] [place] [address] Assigned PCP 10/20/21 Itzel Polk APRN DESCRIPTIVE CATALOG LIBRARIAN NO INFO AVAILABLE 12/27/2021 Assigned Heart and Vascular Provider 12/15/21 05/17/22 Carl Farah MD [address] [place] [phone] Assigned Heart and Vascular Provider 05/18/22 Hector Goode MD 9 [facility], [place] [address] Assigned Neuroscience Provider 07/01/23 documented as of this encounter
--- OUTSIDE RECORDS SUMMARY | 2024-02-02 15:47 | XMS_ITS | Encounter Summary ---
Author Organization [place] Address [facility] [place] [address] Care Team Providers Care Director Operations Broadcast Name Role Phone Hector Goode MD Unavailable John Cancino MD Unavailable [phone] Jasmin Maradiaga PA-C Primary Care Provid er Jasmin Maradiaga PA-C Unavailable + [phone] Itzel Polk APRN, CNP Unavailable Unavailable Carl Farah MD Unavailable [phone] Hector Goode MD Unavailable Reason for Visit * Reason Onset Date Comments Orders 12/19/2021 Encounter Details Date Type Department Care Team (Late st Contact Info) Description 12/19/2021 Telephone [facility] [place] [id number] [facility] [address] [place] [address] Carl Farah MD [address] [facility] [address] [place] [address] Orders Social History Tobacco Use Types [...] on file Legal Sex Female 2:58 AM KEYBOARDING CLERK Gender Identity Not on file Sexual Orientation Not on file documented as of this encounter Miscellaneous Notes * Telephone Encounter - Luisa Chaudhary - 12/19/2021 2:09 PM CDT [facility] Call Center Phone Message May [...] Description 06/14/2024 1:00 PM CDT Office Visit [facility] Neurology Clinic [address] 3rd [place] [address] Hector Goode MD [address] [place] [address] [id number] [place] [address] Scheduled Procedures Name Priority Associated Diagnoses Date/Ti me CHOLECYSTECTOMY, LAPAROSCOPIC Cholecystitis Choledocholithiasis with acute cholecystitis 02/02/2024 12:27 PM KEYBOARDING CLERK ENDOSCOPIC RETROGRADE CHOLANGIOPANCREATOGRAPHY, COMPLEX Cholecystitis Choledocholithiasis with acute cholecystitis 02/02/2024 12:27 PM KEYBOARDING CLERK ENDOSCOPIC ULTRASOUND, ESOPHAGOSCOPY / UPPER GASTROINTESTINAL TRACT (GI) Cholecystitis Choledocholithiasis with acute cholecystitis 02/02/2024 12:27 PM KEYBOARDING CLERK ENDOSCOPIC RETROGRADE CHOLANGIOPANCREATOGRAPHY, COMPLEX Cholecystitis Choledocholithiasis with acute cholecystitis documented as of this encounter Visit Diagnoses Not on filedocumented in this encounter Care Teams Director Operations Broadcast Relationship Specialty Start Date End Date Jasmin Maradiaga PA-C [address] [place] [address] PCP - General Family Medicine 03/16/21 Hector Goode MD [address] [place] [address] Neurology 05/01/17 John Cancino MD [address] [place] [address] Family Medicine - Sports Medicine 07/30/17 Jasmin Maradiaga PA-C [address] [address] Assigned PCP 10/20/21 Itzel Polk APRN SANITARY INSPECTOR NO INFO AVAILABLE 12/27/2021 Assigned Heart and Vascular Provider 12/15/21 05/17/22 Carl Farah MD [address] [place] [phone] Assigned Heart and Vascular Provider 05/18/22 Hector Goode MD [address] [place] [address] [id number], [place] [address] Assigned Neuroscience Provider 07/01/23 documented as of this encounter
--- OUTSIDE RECORDS SUMMARY | 2024-02-02 15:47 | XMS_ITS | Encounter Summary ---
Author Organization [place] Address [address] [place] [address] Care Team Providers Care Paid Search Manager Name Role Phone Roslyn Sandoval MD Primary Care Provider Unav ailable Hector Goode MD Unavailable John Cancino MD Unavailable [phone] Roslyn Sandoval MD Unavailable UnavailKorin Cash MD Unavailable +- 03 Korin Lamb MD Primary Care Provider [phone] Carl Farah MD Unavailable +[phone] Roslyn Sandoval MD Unavailable UnavailKorin Cash MD Unavailable +- 03 Gavi Cloud MD Unavailable +[phone] Jasmin Maradiaga PA-C Unavailable + Itzel Polk APRN MANAGER RETIREMENT Unavailable Unavailable Carl Farah MD Unavailable +[phone] Jasmin Maradiaga PA-C Primary Care Provid er Gavi Cloud MD Unavailable +[phone] Jasmin Maradiaga PA-C Unavailable + [phone] Itzel Polk APRN MANAGER RETIREMENT Unavailable Unavailable Carl Farah MD Unavailable +[phone] Hector Goode MD Unavailable Reason for Visit * Reason Comments Medication Refill Encounter Details Date Type Department Care Team (Late Contact Info) Description 10/25/2015 Refill [facility] [address] [place] [address] [address] [place] [address] Roslyn Sandoval MD NO INFO AVAILABLE 10/03/22 [...] on file 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 Gender Identity Not on file Sexual Orientation Not on file documented as of this encounter Plan of Treatment Upcoming Encounters Date Type Department Care Team (Late Contact Info) Description 06/14/2024 1:00 PM CDT Office Visit [facility] Neurology Clinic [address] 3rd [place] [phone] Hector Goode MD [address] [place] [address] [id number] [place], [place] [id number] Scheduled Procedures Name Priority Associated Diagnoses Date/Ti me CHOLECYSTECTOMY, LAPAROSCOPIC Cholecystitis Choledocholithiasis with acute cholecystitis 02/02/2024 12:27 PM EXTERNAL GRINDER ENDOSCOPIC RETROGRADE CHOLANGIOPANCREATOGRAPHY, COMPLEX Cholecystitis Choledocholithiasis with acute cholecystitis 02/02/2024 12:27 PM EXTERNAL GRINDER ENDOSCOPIC ULTRASOUND, ESOPHAGOSCOPY / UPPER GASTROINTESTINAL TRACT (GI) Cholecystitis Choledocholithiasis with acute cholecystitis 02/02/2024 12:27 PM EXTERNAL GRINDER ENDOSCOPIC RETROGRADE CHOLANGIOPANCREATOGRAPHY, COMPLEX Cholecystitis Choledocholithiasis with acute cholecystitis documented as of this encounter Visit Diagnoses Not on filedocumented in this encounter Care Teams Paid Search Manager Relationship Specialty Start Date End Date Roslyn Sandoval MD NO INFO AVAILABLE 10/03/22 PCP - General 03/27/99 08/11/19 Korin Lamb MD [address] , [address] [address] PCP - General Family Practice 08/12/19 03/15/21 Jasmin Maradiaga PA-C [address] , [address] [address] PCP - General Family Medicine 03/16/21 Hector Goode MD [address] [address] Neurology 05/01/17 John Cancino MD [address] [place] [address] Family Medicine - Sports Medicine 07/30/17 Roslyn Sandoval MD NO INFO AVAILABLE 10/03/22 Assigned PCP 02/08/18 06/05/19 Korin Lamb MD [address] [address] Assigned PCP 06/06/19 04/29/20 Carl Farah MD [address] [place] [phone] Assigned Heart and Vascular Provider 12/31/19 12/16/20 Roslyn Sandoval MD NO INFO AVAILABLE 10/03/22 Assigned PCP 04/30/20 05/06/20 Korin Lamb MD [address], [place] [address] [place] [address] Assigned PCP 05/07/20 05/28/20 Gavi Cloud MD [address] [place] [address] Assigned PCP 05/29/20 01/06/21 Jasmin Maradiaga PA-C [address], [place] [address] [place] [address] Assigned PCP 01/07/21 09/28/21 Itzel Polk APRN MANAGER RETIREMENT NO INFO AVAILABLE 12/27/2021 Assigned Heart and Vascular Provider 12/17/20 02/17/21 Carl Farah MD [address] [facility] [address] [facility] [place] [address] Assigned Heart and Vascular Provider 02/18/21 12/14/21 Gavi Cloud MD [address] [place] [address] Assigned PCP 09/29/21 10/19/21 Jasmin Maradiaga PA-C [address], [place] [address] [place] [address] Assigned PCP 10/20/21 Itzel Polk APRN MANAGER RETIREMENT NO INFO AVAILABLE 12/27/2021 Assigned Heart and Vascular Provider 12/15/21 05/17/22 Carl Farah MD [address] [place] [address] Assigned Heart and Vascular Provider 05/18/22 Hector Goode MD 909 [facility] [id number] [place], [place] [address] Assigned Neuroscience Provider 07/01/23 documented as of this encounter
--- OUTSIDE RECORDS SUMMARY | 2024-02-02 15:47 | XMS_ITS | Encounter Summary ---
Author Organization [place] Address [address] [place] [address] Care Team Providers Care Can Sterilizer Name Role Phone Marcos Sandoval MD Primary Care Provider Unav ailable Hector Goode MD Unavailable John Cancino MD Unavailable [phone] Marcos Sandoval MD Unavailable UnavailKorin Cash MD Unavailable +- 03 Korin Lamb MD Primary Care Provider +[phone] Carl Farah MD Unavailable +[phone] Marcos Sandoval MD Unavailable UnavailKorin Cash MD Unavailable +- 03 Gavi Cloud MD Unavailable +[phone] Jasmin Maradiaga PA-C Unavailable + Itzel Polk APRN QUALITY COORDINATOR Unavailable Unavailable Carl Farah MD Unavailable +[phone] Jasmin Maradiaga PA-C Primary Care Provid er Gavi Cloud MD Unavailable +[phone] Jasmin Maradiaga PA-C Unavailable + [phone] Itzel Polk APRN QUALITY COORDINATOR Unavailable Unavailable Carl Farah MD Unavailable +[phone] Hector Goode MD Unavailable Encounter Details Date Type Department Care Team (Late st Contact Info) Description 08/27/2007 Office Visit-[facility] [place] 6405 [facility] [address] [place] [phone] Suleman Dixon MD [facility] 6565 [facility] [address] [place] [address] Social History Tobacco Use Types Packs/Day Years Used Date Smoking Tobacco: Never Alcohol Use Standard Drinks/Week Comments No 0 (1 standard drink = 0.6 oz pur e alcohol) Comments No Sex and Gender Information Value Date Recorded Sex Assigned at Not on file Legal Sex Female 2:58 AM SYSTEMS INTEGRATION ADVISOR Gender Identity Not on file Sexual Orientation Not on file documented as of this encounter Progress Notes * Suleman Dixon MD - 08/31/2007 9:53 AM CDT Progress Note Created by: Suleman Dixon M.D. DATE: 08/27/2007 GRISELDA LAI DATE OF : 1945 AGE: [age] years old Referring Physician: MARCOS SANDOVAL Referring Clinic: [facility] CURRENT DIAGNOSES 1. - Congestive [...] asthma[facility], hyperlipidemia Past Cardiac Illnesses: [...] weeks 2. F/U with Xiao Emmanuel MSN, QUALITY COORDINATOR 2-4 weeks Suleman Dixon M.D. documented in this encounter Plan of Treatment Upcoming Encounters Date Type Department Care Team (Late st Contact Info) Description 06/14/2024 1:00 PM CDT Office Visit [facility] Neurology Clinic [address] [place] [phone] Hector Goode MD [address] [place] [address] [id number] [place], [place] [id number] Scheduled Procedures Name Priority Associated Diagnoses Date/Ti ut CHOLECYSTECTOMY, LAPAROSCOPIC Cholecystitis Choledocholithiasis with acute cholecystitis 02/02/2024 12:27 PM SYSTEMS INTEGRATION ADVISOR ENDOSCOPIC RETROGRADE CHOLANGIOPANCREATOGRAPHY, COMPLEX Cholecystitis Choledocholithiasis with acute cholecystitis 02/02/2024 12:27 PM SYSTEMS INTEGRATION ADVISOR ENDOSCOPIC ULTRASOUND, ESOPHAGOSCOPY / UPPER GASTROINTESTINAL TRACT (GI) Cholecystitis Choledocholithiasis with acute cholecystitis 02/02/2024 12:27 PM SYSTEMS INTEGRATION ADVISOR ENDOSCOPIC RETROGRADE CHOLANGIOPANCREATOGRAPHY, COMPLEX Cholecystitis Choledocholithiasis with acute cholecystitis documented as of this encounter Visit Diagnoses Not on filedocumented in this encounter Care Teams Can Sterilizer Relationship Specialty Start Date End Date Marcos Sandoval MD NO INFO AVAILABLE 10/03/22 PCP - General 03/27/99 08/11/19 Korin Lamb MD [address] , [address] [place] [address] PCP - General Family Practice 08/12/19 03/15/21 Jasmin Maradiaga PA-C [address], [place] [address] [place] [address] PCP - General Family Medicine 03/16/21 Hector Goode MD [address] [address] Neurology 05/01/17 John Cancino MD [address] [address] Family Medicine - Sports Medicine 07/30/17 Marcos Sandoval MD NO INFO AVAILABLE 10/03/22 Assigned PCP 02/08/18 06/05/19 Korin Lamb MD [address], [address] [address] [place] [address] Assigned PCP 06/06/19 04/29/20 Carl Farah MD [address] [place] [phone] Assigned Heart and Vascular Provider 12/31/19 12/16/20 Marcos Sandoval MD NO INFO AVAILABLE 10/03/22 Assigned PCP 04/30/20 05/06/20 Korin Lamb MD [address], [address] [place] [address] Assigned PCP 05/07/20 05/28/20 Gavi Cloud MD [address] [place] [address] Assigned PCP 05/29/20 01/06/21 Jasmin Maradiaga PA-C [address], [address] [place] [address] Assigned PCP 01/07/21 09/28/21 Itzel Polk APRN QUALITY COORDINATOR NO INFO AVAILABLE 12/27/2021 Assigned Heart and Vascular Provider 12/17/20 02/17/21 Carl Farah MD [address] [facility] [address] [place] [address] Assigned Heart and Vascular Provider 02/18/21 12/14/21 Gavi Cloud MD [address] [place] [address] Assigned PCP 09/29/21 10/19/21 Jasmin Maradiaga PA-C [address], [address] [place] [address] Assigned PCP 10/20/21 Itzel Polk APRN QUALITY COORDINATOR NO INFO AVAILABLE 12/27/2021 Assigned Heart and Vascular Provider 12/15/21 05/17/22 Carl Farah MD [address] [place] [phone] Assigned Heart and Vascular Provider 05/18/22 Hector Goode MD 909 [facility] [id number] [place], [place] [address] Assigned Neuroscience Provider 07/01/23 documented as of this encounter
--- OUTSIDE RECORDS SUMMARY | 2024-02-02 15:47 | XMS_ITS | Encounter Summary ---
Author Organization [place] Address [address] [place] [address] Care Team Providers Care Stock And Station Agent Name Role Phone Roslyn Sandoval MD Primary Care Provider Unav ailable Hector Goode MD Unavailable John Cancino MD Unavailable +[phone] Roslyn Sandoval MD Unavailable UnavailKorin Cash MD Unavailable +- 03 Korin Lamb MD Primary Care Provider +[phone] Carl Farah MD Unavailable +[phone] Roslyn Sandoval MD Unavailable UnavailKorin Cash MD Unavailable +- 03 Gavi Cloud MD Unavailable +[phone] Jasmin Maradiaga PA-C Unavailable + Itzel Polk APRN MAKE READY MECHANIC Unavailable Unavailable Carl Farah MD Unavailable +[phone] Jasmin Maradiaga PA-C Primary Care Provid er Gavi Cloud MD Unavailable +[phone] Jasmin Maradiaga PA-C Unavailable + [phone] Itzel Polk APRN MAKE READY MECHANIC Unavailable Unavailable Carl Farah MD Unavailable +[phone] Hector Goode MD Unavailable Reason for Visit * Reason Comments Medication Refill Encounter Details Date Type Department Care Team (Late st Contact Info) Description 07/15/2014 Refill [facility] [address] [place] [address] [address] [place] [address] Roslyn Sandoval MD NO INFO AVAILABLE 10/03/22 Medication Refill Social History Tobacco Use Types Packs/Day Years Used Date Smoking Tobacco: Never Smokeless Tobacco: Never Alcohol Use Standard Drinks/Week Comments Yes 0 (1 standard drink = 0.6 oz pur e alcohol) VERY RARE Comments No Sex and Gender Information Value Date Recorded Sex Assigned at Not on file Legal Sex Female 2:58 AM BAND MAKER Gender Identity Not on file Sexual Orientation Not on file documented as of this encounter Plan of Treatment Upcoming Encounters Date Type Department Care Team (Late Contact Info) Description 06/14/2024 1:00 PM CDT Office Visit [facility] [address] 3rd [place] [phone] Hector Goode MD [address] [place] [address] [id number] [place], [place] [address]88115 Scheduled Procedures Name Priority Associated Diagnoses Date/Ti me CHOLECYSTECTOMY, LAPAROSCOPIC Cholecystitis Choledocholithiasis with acute cholecystitis 02/02/2024 12:27 PM BAND MAKER ENDOSCOPIC RETROGRADE CHOLANGIOPANCREATOGRAPHY, COMPLEX Cholecystitis Choledocholithiasis with acute cholecystitis 02/02/2024 12:27 PM BAND MAKER ENDOSCOPIC ULTRASOUND, ESOPHAGOSCOPY / UPPER GASTROINTESTINAL TRACT (GI) Cholecystitis Choledocholithiasis with acute cholecystitis 02/02/2024 12:27 PM BAND MAKER ENDOSCOPIC RETROGRADE CHOLANGIOPANCREATOGRAPHY, COMPLEX Cholecystitis Choledocholithiasis with acute cholecystitis documented as of this encounter Visit Diagnoses Not on filedocumented in this encounter Care Teams Stock And Station Agent Relationship Specialty Start Date End Date Roslyn Sandoval MD NO INFO AVAILABLE 10/03/22 PCP - General 03/27/99 08/11/19 Korin Lamb MD [address], [address] [address] PCP - General Family Practice 08/12/19 03/15/21 Jasmin Maradiaga PA-C [address], [address] [address] PCP - General Family Medicine 03/16/21 Hector Goode MD [address] [address] Neurology 05/01/17 John Cancino MD [address] [address] Family Medicine - Sports Medicine 07/30/17 Roslyn Sandoval MD NO INFO AVAILABLE 10/03/22 Assigned PCP 02/08/18 06/05/19 Korin Lamb MD [address] , [address] [address] Assigned PCP 06/06/19 04/29/20 Carl Farah MD [address] [place] [address] Assigned Heart and Vascular Provider 12/31/19 12/16/20 Roslyn Sandoval MD NO INFO AVAILABLE 10/03/22 Assigned PCP 04/30/20 05/06/20 Korin aLmb MD [address], [address] [place] [address] Assigned PCP 05/07/20 05/28/20 Gavi Cloud MD [address] [place] [address] Assigned PCP 05/29/20 01/06/21 Jasmin Maradiaga PA-C [address], [address] [place] [address] Assigned PCP 01/07/21 09/28/21 Itzel Polk APRN MAKE READY MECHANIC NO INFO AVAILABLE 12/27/2021 Assigned Heart and Vascular Provider 12/17/20 02/17/21 Carl Farah MD [address] [place] [phone] Assigned Heart and Vascular Provider 02/18/21 12/14/21 Gavi Cloud MD [address] [place] [address] Assigned PCP 09/29/21 10/19/21 Jasmin Maradiaga PA-C [address], [address] [place] [address] Assigned PCP 10/20/21 Itzel Polk APRN MAKE READY MECHANIC NO INFO AVAILABLE 12/27/2021 Assigned Heart and Vascular Provider 12/15/21 05/17/22 Carl Farah MD [address] [place] [phone] Assigned Heart and Vascular Provider 05/18/22 Hector Goode MD 909 [facility] [place] [id number] [place] [address] Assigned Neuroscience Provider 07/01/23 documented as of this encounter
--- OUTSIDE RECORDS SUMMARY | 2024-02-02 15:47 | XMS_ITS | Encounter Summary ---
Author Organization [facility] Address [address] [place] [address] Care Team Providers Care Brim Pouncing Machine Operator Name Role Phone Marcos Sandoval MD Primary Care Provider Unav ailable Hector Goode MD Unavailable John Cancino MD Unavailable [phone] Marcos Sandoval MD Unavailable UnavailKorin Cash MD Unavailable +- 03 Korin Lamb MD Primary Care Provider +[phone] Carl Farah MD Unavailable +[phone] Marcos Sandoval MD Unavailable UnavailKorin Cash MD Unavailable +- 03 Gavi Cloud MD Unavailable +[phone] Jasmin Maradiaga PA-C Unavailable + Itzel Polk APRN DIRECTOR OF INDUSTRIAL RELATIONS Unavailable Unavailable Carl Farah MD Unavailable +[phone] Jasmin Maradiaga PA-C Primary Care Provid er Gavi Cloud MD Unavailable +[phone] Jasmin Maradiaga PA-C Unavailable + [phone] Itzel Polk APRN DIRECTOR OF INDUSTRIAL RELATIONS Unavailable Unavailable Carl Farah MD Unavailable +[phone] Hector Goode MD Unavailable Encounter Details Date Type Department Care Team (Late st Contact Info) Description 06/17/2006 Office Visit-[facility] [place] [address] [facility] [address] [place] [phone] Carl Farah MD [address] [facility] [address] [place] [phone] Social History Tobacco Use Types Packs/Day Years Used Date Smoking Tobacco: Never Alcohol Use Standard Drinks/Week Comments No 0 (1 standard drink = 0.6 oz pur e alcohol) on occ Comments No Sex and Gender Information Value Date Recorded Sex Assigned at Not on file Legal Sex Female 2:58 AM AUTO MECHANIC APPRENTICE Gender Identity Not on file Sexual Orientation Not on file documented as of this encounter Progress Notes * Carl Farah MD - 06/19/2006 10:05 AM CDT Progress Note Created by: Carl Farah M.D. DATE: 06/17/2006 GRISELDA LAI DATE OF : 1945 AGE: [age] years old Referring Physician: MARCOS SANDOVAL Referring Clinic: [facility]. CURRENT DIAGNOSES 1. - Congestive [...] could explain with heart. She went to [facility] for a se cond opinion and was told that she was simply deconditioned. She has gone on the [employer] Diet and now has lost 40 pounds. [...] asthma, CPAP machine, MRA/MRI of head at [facility] coumadin stopped 02-12 Past Cardiac Illnesses: CHF,LBBB, [...] She is now off blood thinners per [facility]. We will see the patient back in six months. TODAYS ORDERS 1. Return Visit 6 months Carl Farah M.D. documented in this encounter Plan of Treatment Upcoming Encounters Date Type Department Care Team (Late st Contact Info) Description 06/14/2024 1:00 PM CDT Office Visit [facility] [address] [place] [phone] Hector Goode MD [address] [place] [address] [id number] [place] [address] Scheduled Procedures Name Priority Associated Diagnoses Date/Ti hi CHOLECYSTECTOMY, LAPAROSCOPIC Cholecystitis Choledocholithiasis with acute cholecystitis 02/02/2024 12:27 PM AUTO MECHANIC APPRENTICE ENDOSCOPIC RETROGRADE CHOLANGIOPANCREATOGRAPHY, COMPLEX Cholecystitis Choledocholithiasis with acute cholecystitis 02/02/2024 12:27 PM AUTO MECHANIC APPRENTICE ENDOSCOPIC ULTRASOUND, ESOPHAGOSCOPY / UPPER GASTROINTESTINAL TRACT (GI) Cholecystitis Choledocholithiasis with acute cholecystitis 02/02/2024 12:27 PM AUTO MECHANIC APPRENTICE ENDOSCOPIC RETROGRADE CHOLANGIOPANCREATOGRAPHY, COMPLEX Cholecystitis Choledocholithiasis with acute cholecystitis documented as of this encounter Visit Diagnoses Not on filedocumented in this encounter Care Teams Brim Pouncing Machine Operator Relationship Specialty Start Date End Date Marcos Sandoval MD NO INFO AVAILABLE 10/03/22 PCP - General 03/27/99 08/11/19 Korin Lamb MD [address] , [address] [address] PCP - General Family Practice 08/12/19 03/15/21 Jasmin Maradiaga PA-C [address] , [address] [address] PCP - General Family Medicine 03/16/21 Hector Goode MD [address] [place] [address] Neurology 05/01/17 John Cancino MD [address] [place] [address] Family Medicine - Sports Medicine 07/30/17 Marcos Sandoval MD NO INFO AVAILABLE 10/03/22 Assigned PCP 02/08/18 06/05/19 Korin Lamb MD [address], [address] [address] Assigned PCP 06/06/19 04/29/20 Carl Farah MD [address] [place] [address] Assigned Heart and Vascular Provider 12/31/19 12/16/20 Marcos Sandoval MD NO INFO AVAILABLE 10/03/22 Assigned PCP 04/30/20 05/06/20 Korin Lamb MD [address], [address] [place] [address] Assigned PCP 05/07/20 05/28/20 Gavi Cloud MD [address] [place] [address] Assigned PCP 05/29/20 01/06/21 Jasmin Maradiaga PA-C [address], [address] [place] [address] Assigned PCP 01/07/21 09/28/21 Itzel Polk APRN CNP NO INFO AVAILABLE 12/27/2021 Assigned Heart and Vascular Provider 12/17/20 02/17/21 Carl Farah MD [address] [place] [phone] Assigned Heart and Vascular Provider 02/18/21 12/14/21 Gavi Cloud MD [address] [place] [address] Assigned PCP 09/29/21 10/19/21 Jasmin Maradiaga PA-C [address], [address] [place] [address] Assigned PCP 10/20/21 Itzel Polk APRN DIRECTOR OF INDUSTRIAL RELATIONS NO INFO AVAILABLE 12/27/2021 Assigned Heart and Vascular Provider 12/15/21 05/17/22 Carl Farah MD [address] [place] [address] Assigned Heart and Vascular Provider 05/18/22 Hector Goode MD 909 [facility] [id number] [place], [place] [address] Assigned Neuroscience Provider 07/01/23 documented as of this encounter
--- OUTSIDE RECORDS SUMMARY | 2024-02-02 15:47 | XMS_ITS | Encounter Summary ---
Author Organization [place] Address [address] [place] [address] Care Team Providers Care Manufacturing Director Name Role Phone Marcos Sandoval MD Primary Care Provider Unav ailable Hector Goode MD Unavailable John Cancino MD Unavailable [phone] Marcos Sandoval MD Unavailable UnavailKorin Cash MD Unavailable +- 03 Korin Lamb MD Primary Care Provider [phone] Carl Farah MD Unavailable +[phone] Marcos Sandoval MD Unavailable UnavailKorin Cash MD Unavailable +- 03 Gavi Cloud MD Unavailable +[phone] Jasmin Maradiaga PA-C Unavailable + Itzel Polk APRN PLUMBER MAINTENANCE Unavailable Unavailable Carl Farah MD Unavailable +[phone] Jasmin Maradiaga PA-C Primary Care Provid er Gavi Cloud MD Unavailable +[phone] Jasmin Maradiaga PA-C Unavailable + [phone] Itzel Polk APRN PLUMBER MAINTENANCE Unavailable Unavailable Carl Farah MD Unavailable +[phone] Hector Goode MD Unavailable Encounter Details Date Type Department Care Team (Late st Contact Info) Description 02/16/2010 Office Visit-[facility] [place] [address] [facility] [address] [place] [phone] Carl Farah MD [address] [facility] [address] [place] [phone] Social History Tobacco Use Types Packs/Day Years Used Date Smoking Tobacco: Never Alcohol Use Standard Drinks/Week Comments No 0 (1 standard drink = 0.6 oz pur e alcohol) Comments No Sex and Gender Information Value Date Recorded Sex Assigned at Not on file Legal Sex Female 2:58 AM DIRECTOR QUALITY ASSURANCE Gender Identity Not on file Sexual Orientation Not on file documented as of this encounter Progress Notes * Carl Farah MD - 11/28/2010 11:29 AM CDT Progress Note Created by: Carl Farah M.D. DATE: 02/16/2010 GRISELDA LAI DATE OF : 1945 AGE: [age] years old Referring Physician: MARCOS SANDOVAL Referring Clinic: [facility] CURRENT DIAGNOSES 1. - Hypercholesterolemia, [...] unclear. 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 [...] Office Visit [facility] [address] 3rd [place] [address] Hector Goode MD [address] [place] [address] [id number] [place] [address] Scheduled Procedures Name Priority Associated Diagnoses Date/Ti me CHOLECYSTECTOMY, LAPAROSCOPIC Cholecystitis Choledocholithiasis with acute cholecystitis 02/02/2024 12:27 PM DIRECTOR QUALITY ASSURANCE ENDOSCOPIC RETROGRADE CHOLANGIOPANCREATOGRAPHY, COMPLEX Cholecystitis Choledocholithiasis with acute cholecystitis 02/02/2024 12:27 PM DIRECTOR QUALITY ASSURANCE ENDOSCOPIC ULTRASOUND, ESOPHAGOSCOPY / UPPER GASTROINTESTINAL TRACT (GI) Cholecystitis Choledocholithiasis with acute cholecystitis 02/02/2024 12:27 PM DIRECTOR QUALITY ASSURANCE ENDOSCOPIC RETROGRADE CHOLANGIOPANCREATOGRAPHY, COMPLEX Cholecystitis Choledocholithiasis with acute cholecystitis documented as of this encounter Visit Diagnoses Not on filedocumented in this encounter Care Teams Manufacturing Director Relationship Specialty Start Date End Date Marcos Sandoval MD NO INFO AVAILABLE 10/03/22 PCP - General 03/27/99 08/11/19 Korin Lamb MD [address], [address] [place] [address] PCP - General Family Practice 08/12/19 03/15/21 Jasmin Maradiaga PA-C [address], [address] [place] [address] PCP - General Family Medicine 03/16/21 Hector Goode MD [address] [id number] [address] Neurology 05/01/17 John Cancino MD [address] [address] Family Medicine - Sports Medicine 07/30/17 Marcos Sandoval MD NO INFO AVAILABLE 10/03/22 Assigned PCP 02/08/18 06/05/19 Korin Lamb MD [address] [address] Assigned PCP 06/06/19 04/29/20 Carl Farah MD [address] [facility] [address] [place] [phone] Assigned Heart and Vascular Provider 12/31/19 12/16/20 Marcos Sandoval MD NO INFO AVAILABLE 10/03/22 Assigned PCP 04/30/20 05/06/20 Korin Lamb MD [address] , [address] [address] Assigned PCP 05/07/20 05/28/20 Gavi Cloud MD [address] [place] [address] Assigned PCP 05/29/20 01/06/21 Jasmin Maradiaga PA-C [address], [address] [place] [address] Assigned PCP 01/07/21 09/28/21 Itzel Polk APRN PLUMBER MAINTENANCE NO INFO AVAILABLE 12/27/2021 Assigned Heart and Vascular Provider 12/17/20 02/17/21 Carl Farah MD [address] [place] [phone] Assigned Heart and Vascular Provider 02/18/21 12/14/21 Gavi Cloud MD [address] [place] [address] Assigned PCP 09/29/21 10/19/21 Jasmin Maradiaga PA-C [address], [address] [place] [address] Assigned PCP 10/20/21 Itzel Polk APRN PLUMBER MAINTENANCE NO INFO AVAILABLE 12/27/2021 Assigned Heart and Vascular Provider 12/15/21 05/17/22 Carl Farah MD [address] [place] [phone] Assigned Heart and Vascular Provider 05/18/22 Hector Goode MD 909 [facility] [id number] [place] [address] Assigned Neuroscience Provider 07/01/23 documented as of this encounter
--- OUTSIDE RECORDS SUMMARY | 2024-02-02 15:47 | XMS_ITS | Encounter Summary ---
Author Organization [place] Address [address] [place] [address] Care Team Providers Care Social Worker Clinical Name Role Phone Marcos Sandoval MD Primary Care Provider Unav ailable Hector Goode MD Unavailable John Cancino MD Unavailable +[phone] Marcos Sandoval MD Unavailable UnavailKorin Cash MD Unavailable +- 03 Korin Lamb MD Primary Care Provider +[phone] Carl Farah MD Unavailable +[phone] Marcos Sandoval MD Unavailable UnavailKorin Cash MD Unavailable +- 03 Gavi Cloud MD Unavailable +[phone] Jasmin Maradiaga PA-C Unavailable + Ian Polk APRN STRUCTURAL WORKER Unavailable Unavailable Carl Farah MD Unavailable +[phone] Jasmin Maradiaga PA-C Primary Care Provid er Gavi Cloud MD Unavailable +[phone] Jasmin Maradiaga PA-C Unavailable + [phone] Ian Polk APRN STRUCTURAL WORKER Unavailable Unavailable Carl Farah MD Unavailable +[phone] Hector Goode MD Unavailable Encounter Details Date Type Department Care Team (Late st Contact Info) Description 01/10/2009 Office Visit-[facility] [place] 6[address] [facility] [address] [place] [phone] Carl Farah MD [address]402 [facility] [address] [place] [phone] Social History Tobacco Use Types Packs/Day Years Used Date Smoking Tobacco: Never Alcohol Use Standard Drinks/Week Comments No 0 (1 standard drink = 0.6 oz pur e alcohol) Comments No Sex and Gender Information Value Date Recorded Sex Assigned at Not on file Legal Sex Female 2:58 AM CUTTING PRESSMAN Gender Identity Not on file Sexual Orientation Not on file documented as of this encounter Progress Notes * Carl Farah MD - 01/13/2009 10:29 AM CST Progress Note Created by: Carl Farah M.D. DATE: 01/10/2009 GRISELDA LAI DATE OF : 1945 AGE: [age] years old Referring Physician: MARCOS SANDOVAL Referring Clinic: [facility] CURRENT DIAGNOSES 1. Myalgia And Myositis [...] asthma, CPAP machine, MRA/MRI of head at [place] coumadin stopped 02-12, hyperlipidemia Past Cardiac Illnesses: [...] Description 06/14/2024 1:00 PM CDT Office Visit [facility] [address] 3rd [place] [address] Hector Goode MD [address] [place] [address] [id number] [place], [place] [address] Scheduled Procedures Name Priority Associated Diagnoses Date/Ti me CHOLECYSTECTOMY, LAPAROSCOPIC Cholecystitis Choledocholithiasis with acute cholecystitis 02/02/2024 12:27 PM CUTTING PRESSMAN ENDOSCOPIC RETROGRADE CHOLANGIOPANCREATOGRAPHY, COMPLEX Cholecystitis Choledocholithiasis with acute cholecystitis 02/02/2024 12:27 PM CUTTING PRESSMAN ENDOSCOPIC ULTRASOUND, ESOPHAGOSCOPY / UPPER GASTROINTESTINAL TRACT (GI) Cholecystitis Choledocholithiasis with acute cholecystitis 02/02/2024 12:27 PM CUTTING PRESSMAN ENDOSCOPIC RETROGRADE CHOLANGIOPANCREATOGRAPHY, COMPLEX Cholecystitis Choledocholithiasis with acute cholecystitis documented as of this encounter Visit Diagnoses Not on filedocumented in this encounter Care Teams Social Worker Clinical Relationship Specialty Start Date End Date Marcos Sandoval MD NO INFO AVAILABLE 10/03/22 PCP - General 03/27/99 08/11/19 Korin Lamb MD [address] , [address] [address] PCP - General Family Practice 08/12/19 03/15/21 Jasmin Maradiaga PA-C [address] , [address] [address] PCP - General Family Medicine 03/16/21 Hector Goode MD [address] [address] Neurology 05/01/17 John Cancino MD [address] [address] Family Medicine - Sports Medicine 07/30/17 Marcos Sandoval MD NO INFO AVAILABLE 10/03/22 Assigned PCP 02/08/18 06/05/19 Korin Lamb MD [address], [address] [address] Assigned PCP 06/06/19 04/29/20 Carl Farah MD [facility] [place] [phone] Assigned Heart and Vascular Provider 12/31/19 12/16/20 Marcos Sandoval MD NO INFO AVAILABLE 10/03/22 Assigned PCP 04/30/20 05/06/20 Korin aLmb MD [address] , [address] [place] [address] Assigned PCP 05/07/20 05/28/20 Gavi Cloud MD [address] [place] [address] Assigned PCP 05/29/20 01/06/21 Jasmin Maradiaga PA-C [address] , [facility] [address] [place] [address] Assigned PCP 01/07/21 09/28/21 Ian Polk APRN [facility] NO INFO AVAILABLE 12/27/2021 Assigned Heart and Vascular Provider 12/17/20 02/17/21 Carl Farah MD [address] [place] [address] Assigned Heart and Vascular Provider 02/18/21 12/14/21 Gavi Cloud MD [address] [place] [address] Assigned PCP 09/29/21 10/19/21 Jasmin Maradiaga PA-C [address], [address] [place] [address] Assigned PCP 10/20/21 Ian Polk APRN STRUCTURAL WORKER NO INFO AVAILABLE 12/27/2021 Assigned Heart and Vascular Provider 12/15/21 05/17/22 Carl Farah MD [address] [facility] [address] [place] [address] Assigned Heart and Vascular Provider 05/18/22 Hector Goode MD 909 [facility] [id number] [place] [address] Assigned Neuroscience Provider 07/01/23 documented as of this encounter
--- OUTSIDE RECORDS SUMMARY | 2024-02-02 15:47 | XMS_ITS | Encounter Summary ---
Author Organization [place] Address [address] [place] [address] Care Team Providers Care Flat Hammerer Name Role Phone Marcos Sandoval MD Primary Care Provider Unav ailable Hector Goode MD Unavailable John Cancino MD Unavailable [phone] Marcos Sandoval MD Unavailable UnavailKorin Cash MD Unavailable +- 03 Korin Lamb MD Primary Care Provider [phone] Carl Farah MD Unavailable +[phone] Marcos Sandoval MD Unavailable UnavailKorin Cash MD Unavailable +- 03 Gavi Cloud MD Unavailable +[phone] Jasmin Maradiaga PA-C Unavailable + Itzel Polk APRN RECREATION CLERK Unavailable Unavailable Carl Farah MD Unavailable +[phone] Jasmin Maradiaga PA-C Primary Care Provid er Gavi Cloud MD Unavailable +[phone] Jasmin Maradiaga PA-C Unavailable + [phone] Itzel Polk APRN RECREATION CLERK Unavailable Unavailable Carl Farah MD Unavailable +[phone] Hector Goode MD Unavailable Encounter Details Date Type Department Care Team (Late st Contact Info) Description 04/10/2012 Office Visit-[facility] [place] [address] [facility] [address] [place] [phone] Carl Farah MD [address] [facility] [address] [place] [phone] Social History Tobacco Use Types Packs/Day Years Used Date Smoking Tobacco: Never Smokeless Tobacco: Never Alcohol Use Standard Drinks/Week Comments Yes 0 (1 standard drink = 0.6 oz pur e alcohol) VERY RARE Comments No Sex and Gender Information Value Date Recorded Sex Assigned at Not on file Legal Sex Female 2:58 AM SUPERVISOR OFFSET PLATE PREPARATION Gender Identity Not on file Sexual Orientation Not on file documented as of this encounter Progress Notes * Carl Farah MD - 04/13/2012 3:03 PM CST Progress Note Created by: Carl Farah M.D. DATE: 04/10/2012 GRISELDA LAI DATE OF : 1945 AGE: [age] years old Referring Physician: MARCOS SANDOVAL Referring Clinic: [facility] CURRENT DIAGNOSES 1. 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 Neurology Clinic [address] 3rd [place] [phone] Hector Goode MD [address] [place] [address] [id number] [place] [address] Scheduled Procedures Name Priority Associated Diagnoses Date/Ti me CHOLECYSTECTOMY, LAPAROSCOPIC Cholecystitis Choledocholithiasis with acute cholecystitis 02/02/2024 12:27 PM SUPERVISOR OFFSET PLATE PREPARATION ENDOSCOPIC RETROGRADE CHOLANGIOPANCREATOGRAPHY, COMPLEX Cholecystitis Choledocholithiasis with acute cholecystitis 02/02/2024 12:27 PM SUPERVISOR OFFSET PLATE PREPARATION ENDOSCOPIC ULTRASOUND, ESOPHAGOSCOPY / UPPER GASTROINTESTINAL TRACT (GI) Cholecystitis Choledocholithiasis with acute cholecystitis 02/02/2024 12:27 PM SUPERVISOR OFFSET PLATE PREPARATION ENDOSCOPIC RETROGRADE CHOLANGIOPANCREATOGRAPHY, COMPLEX Cholecystitis Choledocholithiasis with acute cholecystitis documented as of this encounter Visit Diagnoses Not on filedocumented in this encounter Care Teams Flat Hammerer Relationship Specialty Start Date End Date Marcos Sandoval MD NO INFO AVAILABLE 10/03/22 PCP - General 03/27/99 08/11/19 Korin Lamb MD [address], [address] [place] [address] PCP - General Family Practice 08/12/19 03/15/21 Jasmin Maradiaga PA-C [address] , [address] [address] PCP - General Family Medicine 03/16/21 Hector Goode MD [address] [address] Neurology 05/01/17 John Cancino MD [address] [address] Family Medicine - Sports Medicine 07/30/17 Marcos Sandoval MD NO INFO AVAILABLE 10/03/22 Assigned PCP 02/08/18 06/05/19 Korin Lamb MD [address] , [address] [address] Assigned PCP 06/06/19 04/29/20 Carl Farah MD [address] [facility] [address] [place] [address] Assigned Heart and Vascular Provider 12/31/19 12/16/20 Marcos Sandoval MD NO INFO AVAILABLE 10/03/22 Assigned PCP 04/30/20 05/06/20 Korin Lamb MD [address] , [address] [address] Assigned PCP 05/07/20 05/28/20 Gavi Cloud MD [address] [place] [address] Assigned PCP 05/29/20 01/06/21 Jasmin Maradiaga PA-C [address], [address] [place] [address] Assigned PCP 01/07/21 09/28/21 Itzel Polk APRN RECREATION CLERK NO INFO AVAILABLE 12/27/2021 Assigned Heart and Vascular Provider 12/17/20 02/17/21 Carl Farah MD [address] [place] [address] Assigned Heart and Vascular Provider 02/18/21 12/14/21 Gavi Cloud MD [address] [place] [address] Assigned PCP 09/29/21 10/19/21 Jasmin Maradiaga PA-C [address], [address] [place] [address] Assigned PCP 10/20/21 Itzel Polk APRN RECREATION CLERK NO INFO AVAILABLE 12/27/2021 Assigned Heart and Vascular Provider 12/15/21 05/17/22 Carl Farah MD [address] [place] [phone] Assigned Heart and Vascular Provider 05/18/22 ManHector hudson MD 9 [facility] [id number] [place] [address] Assigned Neuroscience Provider 07/01/23 documented as of this encounter
--- OUTSIDE RECORDS SUMMARY | 2024-02-02 15:47 | XMS_ITS | Encounter Summary ---
Author Organization [place] Address [facility] [place] [address] Care Team Providers Care Comb Setter Name Role Phone Hector Goode MD Unavailable John Cancino MD Unavailable [phone] Jasmin Maradiaga PA-C Primary Care Provid er Jasmin Maradiaga PA-C Unavailable + [phone] Itzel Polk APRN, CNP Unavailable Unavailable Carl Farah MD Unavailable [phone] Hector Goode MD Unavailable Reason for Visit * Reason Onset Date Comments Refill Request 01/22/2022 potassium chlori de ER (KLOR-CON M) 10 MEQ CR tablet Encounter Details Date Type Department Care Team (Late st Contact Info) Description 01/22/2022 [facility] [address] [place] [address] [address] [place] [address] Carl Farah MD [address] [place] [id number] Refill Request (potassium chloride ER (KLOR-CON [...] on file Legal Sex Female 2:58 AM ANAESTHETIC TECHNICIAN Gender Identity Not on file Sexual [...] Pharmacy: 1 time order only to local [facility] at: [facility] [address], [place] [address] After this refill please return to mail order pharmacy What on the order needs clarification? Refill request. 2 pills remaining, high priority Action Taken: Other: RU Cardiology Travel Screening: Not Applicable STHETIC TECHNICIAN documented in this encounter Plan of Treatment Upcoming Encounters Date Type Department Care Team (Late st Contact Info) Description 06/14/2024 1:00 PM CDT Office Visit [facility] Neurology Clinic [place] [address] [facility] 3rd [place] [phone] Hector Goode MD [address] [place] [address] Scheduled Procedures Name Priority Associated Diagnoses Date/Ti ny CHOLECYSTECTOMY, LAPAROSCOPIC Cholecystitis Choledocholithiasis with acute cholecystitis 02/02/2024 12:27 PM ANAESTHETIC TECHNICIAN ENDOSCOPIC RETROGRADE CHOLANGIOPANCREATOGRAPHY, COMPLEX Cholecystitis Choledocholithiasis with acute cholecystitis 02/02/2024 12:27 PM ANAESTHETIC TECHNICIAN ENDOSCOPIC ULTRASOUND, ESOPHAGOSCOPY / UPPER GASTROINTESTINAL TRACT (GI) Cholecystitis Choledocholithiasis with acute cholecystitis 02/02/2024 12:27 PM ANAESTHETIC TECHNICIAN ENDOSCOPIC RETROGRADE CHOLANGIOPANCREATOGRAPHY, COMPLEX Cholecystitis Choledocholithiasis with acute cholecystitis documented as of this encounter Visit Diagnoses Not on filedocumented in this encounter Care Teams Comb Setter Relationship Specialty Start Date End Date Jasmin Maradiaga PA-C [address] , [address] [address] PCP - General Family Medicine 03/16/21 Hector Goode MD [address] [place] [address] Neurology 05/01/17 John Cancino MD [address] [place] [address] Family Medicine - Sports Medicine 07/30/17 Jasmin Maradiaga PA-C [address], [address] [place] [address] Assigned PCP 10/20/21 Itzel Polk APRN PHARMACIST IN CHARGE NO INFO AVAILABLE 12/27/2021 Assigned Heart and Vascular Provider 12/15/21 05/17/22 Carl Farah MD [address] [facility] [address] [place] [address] Assigned Heart and Vascular Provider 05/18/22 Hector Goode MD 909 [facility] [id number] [place] [address] Assigned Neuroscience Provider 07/01/23 documented as of this encounter
--- OUTSIDE RECORDS SUMMARY | 2024-02-02 15:47 | XMS_ITS | Encounter Summary ---
Author Organization [place] Address [address] [place] [address] Care Team Providers Care Scanning Coordinator Name Role Phone Marcos Sandoval MD Primary Care Provider Unav ailable Hector Goode MD Unavailable John Cancino MD Unavailable [phone] Marcos Sandoval MD Unavailable UnavailKorin Cash MD Unavailable +- 03 Korin Lamb MD Primary Care Provider [phone] Carl Farah MD Unavailable +[phone] Marcos Sandoval MD Unavailable UnavailKorin Cash MD Unavailable +- 03 Gavi Cloud MD Unavailable +[phone] Jasmin Maradiaga PA-C Unavailable + Ian Polk APRN BIT SANDER Unavailable Unavailable Carl Farah MD Unavailable +[phone] Jasmin Maradiaga PA-C Primary Care Provid er Gavi Cloud MD Unavailable +[phone] Jasmin Maradiaga PA-C Unavailable + [phone] Ian Polk APRN BIT SANDER Unavailable Unavailable Carl Farah MD Unavailable +[phone] Hector Goode MD Unavailable Encounter Details Date Type Department Care Team (Late st Contact Info) Description 03/17/2006 Office Visit-[facility] Heart Clinic [place] [id number] [facility] [address] [place] [phone] Ian Polk APRN BIT SANDER NO INFO AVAILABLE 12/27/2021 Social History Tobacco Use Types Packs/Day Years Used Date Smoking Tobacco: Never Alcohol Use Standard Drinks/Week Comments No 0 (1 standard drink = 0.6 oz pur e alcohol) on occ Comments No Sex and Gender Information Value Date Recorded Sex Assigned at Not on file Legal Sex Female 2:58 AM TANK MAKER WOOD Gender Identity Not on file Sexual Orientation Not on file documented as of this encounter Progress Notes * Ian Polk - 03/22/2006 7:07 AM CST Progress Note Created by: Ian Polk NKen. DATE: 03/17/2006 GRISELDA LAI DATE OF : 1945 AGE: [age] years old Referring Physician: MARCOS SANDOVAL Referring Clinic: [facility]. CURRENT [...] primary care physician has referred her to [facility], which she will be seeing in [...] same doses today and I agree with [facility] workup. I have written a note [...] night. We will gladly await feedback from [facility] regarding any further workup that is [...] and soon to be worked up at [facility]. TODAYS ORDERS 1. F/U with Carl Farah MD follow up Ian Polk, N.P. documented in this encounter Plan of Treatment Upcoming Encounters Date Type Department Care Team (Late st Contact Info) Description 06/14/2024 1:00 PM CDT Office Visit [facility] Neurology Clinic [address] [place] [phone] Hector Goode MD [address] [place] [address] [id number] [place] [address] Scheduled Procedures Name Priority Associated Diagnoses Date/Ti me CHOLECYSTECTOMY, LAPAROSCOPIC Cholecystitis Choledocholithiasis with acute cholecystitis 02/02/2024 12:27 PM TANK MAKER WOOD ENDOSCOPIC RETROGRADE CHOLANGIOPANCREATOGRAPHY, COMPLEX Cholecystitis Choledocholithiasis with acute cholecystitis 02/02/2024 12:27 PM TANK MAKER WOOD ENDOSCOPIC ULTRASOUND, ESOPHAGOSCOPY / UPPER GASTROINTESTINAL TRACT (GI) Cholecystitis Choledocholithiasis with acute cholecystitis 02/02/2024 12:27 PM TANK MAKER WOOD ENDOSCOPIC RETROGRADE CHOLANGIOPANCREATOGRAPHY, COMPLEX Cholecystitis Choledocholithiasis with acute cholecystitis documented as of this encounter Visit Diagnoses Not on filedocumented in this encounter Care Teams Scanning Coordinator Relationship Specialty Start Date End Date Marcos Sandoval MD NO INFO AVAILABLE 10/03/22 PCP - General 03/27/99 08/11/19 Korin Lamb MD [address] , [address] [address] PCP - General Family Practice 08/12/19 03/15/21 Jasmin Maradiaga PA-C [address] , [address] [address] PCP - General Family Medicine 03/16/21 Hector Goode MD [address] [address] Neurology 05/01/17 John Cancino MD [address] [place] [address] Family Medicine - Sports Medicine 07/30/17 Marcos Sandoval MD NO INFO AVAILABLE 10/03/22 Assigned PCP 02/08/18 06/05/19 Korin Lamb MD [address] , [address] [address] Assigned PCP 06/06/19 04/29/20 Carl Farah MD [address] [facility] [place] [facility] [address] [place] [phone] Assigned Heart and Vascular Provider 12/31/19 12/16/20 Marcos Sandoval MD NO INFO AVAILABLE 10/03/22 Assigned PCP 04/30/20 05/06/20 Korin Lamb MD [address], [address] [place] [address] Assigned PCP 05/07/20 05/28/20 Gavi Cloud MD [address] [place] [address] Assigned PCP 05/29/20 01/06/21 Jasmin Maradiaga PA-C [address], [address] [place] [address] Assigned PCP 01/07/21 09/28/21 Ian Polk APRN BIT SANDER NO INFO AVAILABLE 12/27/2021 Assigned Heart and Vascular Provider 12/17/20 02/17/21 Carl Farah MD [address] [facility] [place] [facility] [address] [place] [phone] Assigned Heart and Vascular Provider 02/18/21 12/14/21 Gavi Cloud MD [address] [place] [address] Assigned PCP 09/29/21 10/19/21 Jasmin Maradiaga PA-C [address], [address] [place] [address] Assigned PCP 10/20/21 Ian Polk APRN BIT SANDER NO INFO AVAILABLE 12/27/2021 Assigned Heart and Vascular Provider 12/15/21 05/17/22 Carl Farah MD [address] [place] [address] Assigned Heart and Vascular Provider 05/18/22 Hector Goode MD 909 [facility]121[place], [place] [address] Assigned Neuroscience Provider 07/01/23 documented as of this encounter
--- OUTSIDE RECORDS SUMMARY | 2024-02-02 15:48 | XMS_ITS | Encounter Summary ---
Author Organization [place] Address [address] [place] [address] Care Team Providers Care Historiography Professor Name Role Phone Roslyn Sandoval MD Primary Care Provider Unav ailable Hector Goode MD Unavailable John Cancino MD Unavailable [phone] Roslyn Sandoval MD Unavailable UnavailKorin Cash MD Unavailable +- 03 Korin Lamb MD Primary Care Provider +[phone] Carl Farah MD Unavailable +[phone] Roslyn Sandoval MD Unavailable UnavailKorin Cash MD Unavailable +- 03 Gavi Cloud MD Unavailable +[phone] Jasmin Maradiaga PA-C Unavailable + Itzel Polk APRN CHILD CARE TEACHER Unavailable Unavailable Carl Farah MD Unavailable +[phone] Jasmin Maradiaga PA-C Primary Care Provid er Gavi Cloud MD Unavailable +[phone] Jasmin Maradiaga PA-C Unavailable + [phone] Itzel Polk APRN CHILD CARE TEACHER Unavailable Unavailable Carl Farah MD Unavailable +[phone] Hector Goode MD Unavailable Encounter Details Date Type Department Care Team (Late st Contact Info) Description 10/08/2004 Abstract [facility] [address] [place] [address] Roslyn Sandoval MD NO INFO AVAILABLE 10/03/22 ABSTRACTING RESULTS (Primary Dx) Social History Tobacco Use Types Packs/Day Years Used Date Smoking Tobacco: Never Alcohol Use Standard Drinks/Week Comments No 0 (1 standard drink = 0.6 oz pur e alcohol) on occ Comments No Sex and Gender Information Value Date Recorded Sex Assigned at Not on file Legal Sex Female 2:58 AM HAND BINDERY ASSEMBLY WORKER Gender Identity Not on file Sexual Orientation Not on file documented as of this encounter Plan of Treatment Upcoming Encounters Date Type Department Care Team (Late st Contact Info) Description 06/14/2024 1:00 PM CDT Office Visit [facility] Neurology Clinic [address] 3rd [place] [phone] Hector Goode MD [address] [place] [address] [id number] [place], [place] 2624[address] Scheduled Procedures Name Priority Associated Diagnoses Date/Ti me CHOLECYSTECTOMY, LAPAROSCOPIC Cholecystitis Choledocholithiasis with acute cholecystitis 02/02/2024 12:27 PM HAND BINDERY ASSEMBLY WORKER ENDOSCOPIC RETROGRADE CHOLANGIOPANCREATOGRAPHY, COMPLEX Cholecystitis Choledocholithiasis with acute cholecystitis 02/02/2024 12:27 PM HAND BINDERY ASSEMBLY WORKER ENDOSCOPIC ULTRASOUND, ESOPHAGOSCOPY / UPPER GASTROINTESTINAL TRACT (GI) Cholecystitis Choledocholithiasis with acute cholecystitis 02/02/2024 12:27 PM HAND BINDERY ASSEMBLY WORKER ENDOSCOPIC RETROGRADE CHOLANGIOPANCREATOGRAPHY, COMPLEX Cholecystitis Choledocholithiasis with acute cholecystitis documented as of this encounter Procedures Procedure [...] Sandoval MD LABORATORY Final Resul t [facility] [address] [place] [address] documented in this encounter Visit Diagnoses Diagnosis ABSTRACTING RESULTS- Primary documented in this encounter Care Teams Historiography Professor Relationship Specialty Start Date End Date Roslyn Sandoval MD NO INFO AVAILABLE 10/03/22 PCP - General 03/27/99 08/11/19 Korin Lamb MD [address], [address] [address] PCP - General Family Practice 08/12/19 03/15/21 Jasmin Maradiaga PA-C [address], [address] [address] PCP - General Family Medicine 03/16/21 Hector Goode MD [address] [place] [address] Neurology 05/01/17 John Cancino MD [address] [place] [address] Family Medicine - Sports Medicine 07/30/17 Roslyn Sandoval MD NO INFO AVAILABLE 10/03/22 Assigned PCP 02/08/18 06/05/19 Korin Lamb MD [address], [address] [place] [address] Assigned PCP 06/06/19 04/29/20 Carl Farah MD [address] [place] [address] Assigned Heart and Vascular Provider 12/31/19 12/16/20 Roslyn Sandoval MD NO INFO AVAILABLE 10/03/22 Assigned PCP 04/30/20 05/06/20 Korin Lamb MD [address], [address] [place] [address] Assigned PCP 05/07/20 05/28/20 Gavi Cloud MD [address] [place] [address] Assigned PCP 05/29/20 01/06/21 Jasmin Maradiaga PA-C [address], [address] [place] [address] Assigned PCP 01/07/21 09/28/21 Itzel Polk APRN CNP NO INFO AVAILABLE 12/27/2021 Assigned Heart and Vascular Provider 12/17/20 02/17/21 Carl Farah MD [address] [place] [address] Assigned Heart and Vascular Provider 02/18/21 12/14/21 Gavi Cloud MD [address] [place] [address] Assigned PCP 09/29/21 10/19/21 Jasmin Maradiaga PA-C [address], [address] [place] [address] Assigned PCP 10/20/21 Itzel Polk APRN CHILD CARE TEACHER NO INFO AVAILABLE 12/27/2021 Assigned Heart and Vascular Provider 12/15/21 05/17/22 Carl Farah MD [address] [facility] [facility] [address] [place] [address] Assigned Heart and Vascular Provider 05/18/22 Hector Goode MD 9 [facility] [id number] [place] [address] Assigned Neuroscience Provider 07/01/23 documented as of this encounter
--- OUTSIDE RECORDS SUMMARY | 2024-02-02 15:48 | XMS_ITS | Encounter Summary ---
Author Organization [place] Address [address] [place] [address] Care Team Providers Care Warhead Maintenance Specialist Name Role Phone Marcos Sandoval MD Primary Care Provider Unav ailable Hector Goode MD Unavailable John Cancino MD Unavailable [phone] Marcos Sandoval MD Unavailable UnavailKorin Cash MD Unavailable +- 03 Korin Lamb MD Primary Care Provider [phone] Carl Farah MD Unavailable +[phone] Marcos Sandoval MD Unavailable UnavailKorin Cash MD Unavailable +- 03 Gavi Cloud MD Unavailable +[phone] Jasmin Maradiaga PA-C Unavailable + Ian Polk APRN DIVERSIFIED CROPS II FARMWORKER Unavailable Unavailable Carl Farah MD Unavailable +[phone] Jasmin Maradiaga PA-C Primary Care Provid er Gavi Cloud MD Unavailable +[phone] Jasmin Maradiaga PA-C Unavailable + [phone] Ian Polk APRN DIVERSIFIED CROPS II FARMWORKER Unavailable Unavailable Carl Farah MD Unavailable +[phone] Hector Goode MD Unavailable Encounter Details Date Type Department Care Team (Late st Contact Info) Description 02/24/2006 Office Visit-[facility] Heart Clinic [address] [place] [address] Unknown, DoctorMD Social History Tobacco Use Types Packs/Day Years Used Date Smoking Tobacco: Never Alcohol Use Standard Drinks/Week Comments No 0 (1 standard drink = 0.6 oz pur e alcohol) on occ Comments No Sex and Gender Information Value Date Recorded Sex Assigned at Not on file Legal Sex Female 2:58 AM AGRICULTURAL CROP FARM MANAGER Gender Identity Not on file Sexual Orientation Not on file documented as of this encounter Progress Notes * Unknown, DoctorMD - 02/27/2006 2:47 PM CST Progress Note Created by: Ian Polk N.P. DATE: 02/24/2006 GRISELDA LAI DATE OF : 1945 AGE: [age] years old Referring Physician: MARCOS SANDOVAL Referring Clinic: [facility]. CURRENT DIAGNOSES 1. - Cardiomyopathy Idiopathic, [...] three years ago and was admitted to [facility] with vague neurologic findings. She was [...] - lives alone; Place of - [place]; Spouse's Occupation - ; REVIEW OF [...] Description 06/14/2024 1:00 PM CDT Office Visit [facility] Neurology Clinic [address] 3rd [place] [address] Hector Goode MD [address] [place] [address] [id number] [place], [place] [address] Scheduled Procedures Name Priority Associated Diagnoses Date/Ti oh CHOLECYSTECTOMY, LAPAROSCOPIC Cholecystitis Choledocholithiasis with acute cholecystitis 02/02/2024 12:27 PM AGRICULTURAL CROP FARM MANAGER ENDOSCOPIC RETROGRADE CHOLANGIOPANCREATOGRAPHY, COMPLEX Cholecystitis Choledocholithiasis with acute cholecystitis 02/02/2024 12:27 PM AGRICULTURAL CROP FARM MANAGER ENDOSCOPIC ULTRASOUND, ESOPHAGOSCOPY / UPPER GASTROINTESTINAL TRACT (GI) Cholecystitis Choledocholithiasis with acute cholecystitis 02/02/2024 12:27 PM AGRICULTURAL CROP FARM MANAGER ENDOSCOPIC RETROGRADE CHOLANGIOPANCREATOGRAPHY, COMPLEX Cholecystitis Choledocholithiasis with acute cholecystitis documented as of this encounter Visit Diagnoses Not on filedocumented in this encounter Care Teams Warhead Maintenance Specialist Relationship Specialty Start Date End Date Marcos Sandoval MD NO INFO AVAILABLE 10/03/22 PCP - General 03/27/99 08/11/19 Korin Lamb MD [address] , [address] [address] PCP - General Family Practice 08/12/19 03/15/21 Jasmin Maradiaga PA-C [address], [address] [address] PCP - General Family Medicine 03/16/21 Hector Goode MD [address] [place] [address]69[address] Neurology 05/01/17 John Cancino MD [address] [place] [address] 627[address] Family Medicine - Sports Medicine 07/30/17 Marcos Sandoval MD NO INFO AVAILABLE 10/03/22 Assigned PCP 02/08/18 06/05/19 Korin Lamb MD [address], [address] [address] Assigned PCP 06/06/19 04/29/20 Carl Farah MD [address] [place] [phone] Assigned Heart and Vascular Provider 12/31/19 12/16/20 Marcos Sandoval MD NO INFO AVAILABLE 10/03/22 Assigned PCP 04/30/20 05/06/20 Korin Lamb MD [address] [place] [address] Assigned PCP 05/07/20 05/28/20 Gavi Cloud MD [address] [place] [address] Assigned PCP 05/29/20 01/06/21 Jasmin Maradiaga PA-C [address], [address] [place] [address] Assigned PCP 01/07/21 09/28/21 Ian Polk APRN DIVERSIFIED CROPS II FARMWORKER NO INFO AVAILABLE 12/27/2021 Assigned Heart and Vascular Provider 12/17/20 02/17/21 Carl Farah MD [address] [place] [address] Assigned Heart and Vascular Provider 02/18/21 12/14/21 Gavi Cloud MD [address] [place] [address] Assigned PCP 09/29/21 10/19/21 Jasmin Maradiaga PA-C [address] [place] [address] Assigned PCP 10/20/21 Ian Polk APRN DIVERSIFIED CROPS II FARMWORKER NO INFO AVAILABLE 12/27/2021 Assigned Heart and Vascular Provider 12/15/21 05/17/22 Carl Farah MD [address] [facility] [address] [place] [address] Assigned Heart and Vascular Provider 05/18/22 Hector Goode MD [facility] [facility] [id number] [place], [place] [address] Assigned Neuroscience Provider 07/01/23 documented as of this encounter
--- OUTSIDE RECORDS SUMMARY | 2024-02-02 15:48 | XMS_ITS | Encounter Summary ---
Author Organization [facility] Address [address] [place] [address] Care Team Providers Care Segmental Paving Supervisor Name Role Phone Roslyn Sandoval MD Primary Care Provider Unav ailable Hector Goode MD Unavailable John Cancino MD Unavailable [phone] Roslyn Sandoval MD Unavailable UnavailKorin Cash MD Unavailable +- 03 Korin Lamb MD Primary Care Provider [phone] Carl Farah MD Unavailable +[phone] Roslyn Sandoval MD Unavailable UnavailKorin Cash MD Unavailable +- 03 Gavi Cloud MD Unavailable +[phone] Jasmin Maradiaga PA-C Unavailable + Itzel Polk APRN PRODUCTION PLANNING SUPERVISOR Unavailable Unavailable Carl Farah MD Unavailable +[phone] Jasmin Maradiaga PA-C Primary Care Provid er Gavi Cloud MD Unavailable +[phone] Jasmin Maradiaga PA-C Unavailable + [phone] Itzel Polk APRN PRODUCTION PLANNING SUPERVISOR Unavailable Unavailable Carl Farah MD Unavailable +[phone] Hector Goode MD Unavailable Encounter Details Date Type Department Care Team (Late st Contact Info) Description 02/07/2005 Office Visit-[facility] [address] [place] [phone] Unknown, DoctorMD Social History Tobacco Use Types Packs/Day Years Used Date Smoking Tobacco: Never Alcohol Use Standard Drinks/Week Comments No 0 (1 standard drink = 0.6 oz pur e alcohol) on occ Comments No Sex and Gender Information Value Date Recorded Sex Assigned at Not on file Legal Sex Female 2:58 AM CAMPUS RECEPTIONIST Gender Identity Not on file Sexual Orientation Not on file documented as of this encounter Progress Notes * Unknown, DoctorMD - 07/23/2005 1:25 PM CDT Progress Note Created by: Carl Farah M.D. DATE: 02/07/2005 GRISELDA LAI DATE OF : 1945 AGE: [age] years old Referring Physician: ROSLYN SANDOVAL Referring Clinic: [facility]. CURRENT [...] was performed. The patient was hospitalized at [facility] with a presumptive tachyarrhythmia with low potassium. [...] history;Residence - lives alone; Place of - [place]; [...] skin irritation and rash. She sees a packing and final assembly supervisor although it is still present and stable. I do not think it is from any of her medications and in fact her packing and final assembly supervisor thought it was due to metals. Total consult time 25 minutes, greater than 50% counseling. TODAYS ORDERS 1. Return Visit 1 year 2. 2D, color flow, doppler 1 year Carl Farah M.D. documented in this encounter Plan of Treatment Upcoming Encounters Date Type Department Care Team ([facility] st Contact Info) Description 06/14/2024 1:00 PM CDT Office Visit [facility] [address] 3rd [place] [address] Hector Goode MD [address] [place] [address] [id number] [place], [place] 541065 Scheduled Procedures Name Priority Associated Diagnoses Date/Ti me CHOLECYSTECTOMY, LAPAROSCOPIC Cholecystitis Choledocholithiasis with acute cholecystitis 02/02/2024 12:27 PM CAMPUS RECEPTIONIST ENDOSCOPIC RETROGRADE CHOLANGIOPANCREATOGRAPHY, COMPLEX Cholecystitis Choledocholithiasis with acute cholecystitis 02/02/2024 12:27 PM CAMPUS RECEPTIONIST ENDOSCOPIC ULTRASOUND, ESOPHAGOSCOPY / UPPER GASTROINTESTINAL TRACT (GI) Cholecystitis Choledocholithiasis with acute cholecystitis 02/02/2024 12:27 PM CAMPUS RECEPTIONIST ENDOSCOPIC RETROGRADE CHOLANGIOPANCREATOGRAPHY, COMPLEX Cholecystitis Choledocholithiasis with acute cholecystitis documented as of this encounter Visit Diagnoses Not on filedocumented in this encounter Care Teams Segmental Paving Supervisor Relationship Specialty Start Date End Date Roslyn Sandoval MD NO INFO AVAILABLE 10/03/22 PCP - General 03/27/99 08/11/19 Korin Lamb MD [address] [address] PCP - General Family Practice 08/12/19 03/15/21 Jasmin Maradiaga PA-C [address] [address] PCP - General Family Medicine 03/16/21 Hector Goode MD [address] [id number] [place] [address] Neurology 05/01/17 John Cancino MD [address] [id number] [place] [address] Family Medicine - Sports Medicine 07/30/17 Roslyn Sandoval MD NO INFO AVAILABLE 10/03/22 Assigned PCP 02/08/18 06/05/19 Korin Lamb MD [address] [address] Assigned PCP 06/06/19 04/29/20 Carl Farah MD [address] [facility] [address] [place] [address] Assigned Heart and Vascular Provider 12/31/19 12/16/20 Roslyn Sandoval MD NO INFO AVAILABLE 10/03/22 Assigned PCP 04/30/20 05/06/20 Korin Lamb MD [address] [address] Assigned PCP 05/07/20 05/28/20 Gavi Cloud MD [address] [place] [address] Assigned PCP 05/29/20 01/06/21 Jasmin Maradiaga PA-C [address] , [address] [address] Assigned PCP 01/07/21 09/28/21 Itzel Polk APRN PRODUCTION PLANNING SUPERVISOR NO INFO AVAILABLE 12/27/2021 Assigned Heart and Vascular Provider 12/17/20 02/17/21 Carl Farah MD [address] [place] [phone] Assigned Heart and Vascular Provider 02/18/21 12/14/21 Gavi Cloud MD [address] [place] [address] Assigned PCP 09/29/21 10/19/21 Jasmin Maradiaga PA-C [address] , [address] [address] Assigned PCP 10/20/21 Itzel Polk APRN PRODUCTION PLANNING SUPERVISOR NO INFO AVAILABLE 12/27/2021 Assigned Heart and Vascular Provider 12/15/21 05/17/22 Carl Farah MD [address] [place] [phone] Assigned Heart and Vascular Provider 05/18/22 Hector Goode MD [address] [facility]2121[place], [place] [address] Assigned Neuroscience Provider 07/01/23 documented as of this encounter
--- OUTSIDE RECORDS SUMMARY | 2024-02-02 15:48 | XMS_ITS | Encounter Summary ---
Author Organization [facility] Address [address] [place] [address] Care Team Providers Care Vp Software Name Role Phone Roslyn Sandoval MD Primary Care Provider Unav ailable Hector Goode MD Unavailable John Cancino MD Unavailable [phone] Roslyn Sandoval MD Unavailable UnavailKorin Cash MD Unavailable +- 03 Korin Lamb MD Primary Care Provider [phone] Carl Farah MD Unavailable +[phone] Roslyn Sandoval MD Unavailable UnavailKorin Cash MD Unavailable +- 03 Gavi Cloud MD Unavailable +[phone] Jasmin Maradiaga PA-C Unavailable + Itzel Polk APRN JAIL GUARD Unavailable Unavailable Carl Farah MD Unavailable +[phone] Jasmin Maradiaga PA-C Primary Care Provid er Gavi Cloud MD Unavailable +[phone] Jasmin Maradiaga PA-C Unavailable + [phone] Itzel Polk APRN JAIL GUARD Unavailable Unavailable Carl Farah MD Unavailable +[phone] Hector Goode MD Unavailable Encounter Details Date Type Department Care Team (Late st Contact Info) Description 03/15/2005 Abstract [facility] [address] [facility] [address] [place] [address] Roslyn Sandoval MD NO INFO AVAILABLE 10/03/22 ABSTRACTING RESULTS (Primary Dx) Social History Tobacco Use Types Packs/Day Years Used Date Smoking Tobacco: Never Alcohol Use Standard Drinks/Week Comments No 0 (1 standard drink = 0.6 oz pur e alcohol) on occ Comments No Sex and Gender Information Value Date Recorded Sex Assigned at Not on file Legal Sex Female 2:58 AM LOCKSTITCH POCKET SETTER Gender Identity Not on file Sexual Orientation Not on file documented as of this encounter Plan of Treatment Upcoming Encounters Date Type Department Care Team (Late Contact Info) Description 06/14/2024 1:00 PM CDT Office Visit [facility] Neurology Clinic [address] 3rd [place] [phone] Hector Goode MD [address] [place] [address] [id number] [place], [place] [id number] Scheduled Procedures Name Priority Associated Diagnoses Date/Ti me CHOLECYSTECTOMY, LAPAROSCOPIC Cholecystitis Choledocholithiasis with acute cholecystitis 02/02/2024 12:27 PM LOCKSTITCH POCKET SETTER ENDOSCOPIC RETROGRADE CHOLANGIOPANCREATOGRAPHY, COMPLEX Cholecystitis Choledocholithiasis with acute cholecystitis 02/02/2024 12:27 PM LOCKSTITCH POCKET SETTER ENDOSCOPIC ULTRASOUND, ESOPHAGOSCOPY / UPPER GASTROINTESTINAL TRACT (GI) Cholecystitis Choledocholithiasis with acute cholecystitis 02/02/2024 12:27 PM LOCKSTITCH POCKET SETTER ENDOSCOPIC RETROGRADE CHOLANGIOPANCREATOGRAPHY, COMPLEX Cholecystitis Choledocholithiasis with acute cholecystitis documented as of this encounter Procedures Procedure Name Priority Date/Time Associated Diagnosis Comments HCL POTASSIUM Routine 03/15/2005 ABSTRACTING RESULTS ZZCL AFF PROTHROMBIN TIME/INR Routine 03/15/2005 ABSTRACTING RESULTS documented in this encounter Results * POTASSIUM (03/15/2005) Potassium 4.0 3.5 - 5.5 mval/L [facility] Roslyn Sandoval MD LABORATORY Final Resul t Performing Organization Address City/[facility]/ZIP Co de Phone Number [facility] [address] [phone] * PROTHROMBIN TIME/INR (03/15/2005) INR Point of Care 2.8 [facility] Narrative [facility] - 03/15/2005 Pt=27.6 Roslyn Sandoval MD LABORATORY Final Resul t Performing Organization Address City/[facility]/ZIP Co de Phone Number [facility] [address] [phone] documented in this encounter Visit Diagnoses Diagnosis ABSTRACTING RESULTS- Primary documented in this encounter Care Teams Vp Software Relationship Specialty Start Date End Date Roslyn Sandoval MD NO INFO AVAILABLE 10/03/22 PCP - General 03/27/99 08/11/19 Korin Lamb MD [address] [address] PCP - General Family Practice 08/12/19 03/15/21 Jasmin Maradiaga PA-C [address] , [address] [address] PCP - General Family Medicine 03/16/21 Hector Goode MD [address] [place] [id number] Neurology 05/01/17 John Cancino MD [address] [place] [address] Family Medicine - Sports Medicine 07/30/17 Roslyn Sandoval MD NO INFO AVAILABLE 10/03/22 Assigned PCP 02/08/18 06/05/19 Korin Lamb MD [address] [place] [address] Assigned PCP 06/06/19 04/29/20 Carl Farah MD [address] [place] [address] Assigned Heart and Vascular Provider 12/31/19 12/16/20 Roslyn Sandoval MD NO INFO AVAILABLE 10/03/22 Assigned PCP 04/30/20 05/06/20 Korin Lamb MD [address] [place] [address] Assigned PCP 05/07/20 05/28/20 Gavi Cloud MD [address] [place] [address] Assigned PCP 05/29/20 01/06/21 Jasmin Maradiaga PA-C [address] [place] [address] Assigned PCP 01/07/21 09/28/21 Itzel Polk APRN JAIL GUARD NO INFO AVAILABLE 12/27/2021 Assigned Heart and Vascular Provider 12/17/20 02/17/21 Carl Farah MD [address] [place] [phone] Assigned Heart and Vascular Provider 02/18/21 12/14/21 Gavi Cloud MD [address] [place] [address] Assigned PCP 09/29/21 10/19/21 Jasmin Maradiaga PA-C [address] [place] [address] Assigned PCP 10/20/21 Itzel Polk APRN JAIL GUARD NO INFO AVAILABLE 12/27/2021 Assigned Heart and Vascular Provider 12/15/21 05/17/22 Carl Farah MD [address] [place] [phone] Assigned Heart and Vascular Provider 05/18/22 Hector Goode MD 909 [facility] [id number] [place] [address] Assigned Neuroscience Provider 07/01/23 documented as of this encounter
--- OUTSIDE RECORDS SUMMARY | 2024-02-02 15:48 | XMS_ITS | Encounter Summary ---
Author Organization [facility] Address [address] [place] [address] Care Team Providers Care Alumni Coordinator Name Role Phone Marcos Sandoval MD Primary Care Provider Unav ailable Hector Goode MD Unavailable John Cancino MD Unavailable [phone] Marcos Sandoval MD Unavailable UnavailKorin Cash MD Unavailable +- 03 Korin Lamb MD Primary Care Provider +[phone] Carl Farah MD Unavailable +[phone] Marcos Sandoval MD Unavailable UnavailKorin Cash MD Unavailable +- 03 Gavi Cloud MD Unavailable +[phone] Jasmin Maradiaga PA-C Unavailable + Itzel Polk APRN HEALTH EQUIPMENT SERVICER Unavailable Unavailable Carl Farah MD Unavailable +[phone] Jasmin Maradiaga PA-C Primary Care Provid er Gavi Cloud MD Unavailable +[phone] Jasmin Maradiaga PA-C Unavailable + [phone] Itzel Polk APRN HEALTH EQUIPMENT SERVICER Unavailable Unavailable Carl Farah MD Unavailable +[phone] Hector Goode MD Unavailable Encounter Details Date Type Department Care Team (Late st Contact Info) Description 05/13/2003 Office Visit-[facility] [place] [id number] [facility] [address] [place] [phone] Unknown, DoctorMD Social History Tobacco Use Types Packs/Day Years Used Date Smoking Tobacco: Never Alcohol Use Standard Drinks/Week Comments No 0 (1 standard drink = 0.6 oz pur e alcohol) on occ Comments No Sex and Gender Information Value Date Recorded Sex Assigned at Not on file Legal Sex Female 2:58 AM RAIL TRANSPORTATION OPERATOR Gender Identity Not on file Sexual Orientation Not on file documented as of this encounter Progress Notes * Unknown, MD Temo - 05/18/2003 7:20 AM CST Progress Note Created by: Carl Farah M.D. </I> __ Date: 05/13/2003 <B>GRISELDA LAI </B> Date of :1945 Age: 58 years old Referring Physician: MARCOS SANDOVAL Referring Clinic: [facility]. __ <B>CURRENT DIAGNOSES</B> 1. - Congestive Heart Failure, 428.0 2. 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 - Hypercholesterolemia, 272.0 __ <FONT COLOR=#[id number]><B>ALLERGIES</B> <FONT COLOR=#[id number]> 1. Sulfa __ <B>MEDICATIONS</B> 1. Potassium Chloride [...] <B><I>Residence</I> : </B>lives alone; <B><I>Place of </I>: </B>[place]; <B><I>Hours Worked</I>:</B> 40 hours per week; __<B><FONT [...] Upcoming Encounters Date Type Department Care Team ([facility] st Contact Info) Description 06/14/2024 1:00 PM CDT Office Visit [facility] Neurology Clinic [address] 3rd [place] [phone] Hector Goode MD [address] [place], [place] [address]J [place], [place] [address] Scheduled Procedures Name Priority Associated Diagnoses Date/Ti me CHOLECYSTECTOMY, LAPAROSCOPIC Cholecystitis Choledocholithiasis with acute cholecystitis 02/02/2024 12:27 PM RAIL TRANSPORTATION OPERATOR ENDOSCOPIC RETROGRADE CHOLANGIOPANCREATOGRAPHY, COMPLEX Cholecystitis Choledocholithiasis with acute cholecystitis 02/02/2024 12:27 PM RAIL TRANSPORTATION OPERATOR ENDOSCOPIC ULTRASOUND, ESOPHAGOSCOPY / UPPER GASTROINTESTINAL TRACT (GI) Cholecystitis Choledocholithiasis with acute cholecystitis 02/02/2024 12:27 PM RAIL TRANSPORTATION OPERATOR ENDOSCOPIC RETROGRADE CHOLANGIOPANCREATOGRAPHY, COMPLEX Cholecystitis Choledocholithiasis with acute cholecystitis documented as of this encounter Visit Diagnoses Not on filedocumented in this encounter Care Teams Alumni Coordinator Relationship Specialty Start Date End Date Marcos Sandoval MD NO INFO AVAILABLE 10/03/22 PCP - General 03/27/99 08/11/19 Korin Lamb MD [address] [address] PCP - General Family Practice 08/12/19 03/15/21 Jasmin Maradiaga PA-C [address] , [address] [address] PCP - General Family Medicine 03/16/21 Hector Goode MD 909 [id number] [place], [place] [address] Neurology 05/01/17 John Cancino MD 9 [facility] [id number] [place] [address] Family Medicine - Sports Medicine 07/30/17 Marcos Sandoval MD NO INFO AVAILABLE 10/03/22 Assigned PCP 02/08/18 06/05/19 Korin Lamb MD [address] [place] [address] Assigned PCP 06/06/19 04/29/20 Carl Farah MD [address] [facility] [address] [place] [phone] Assigned Heart and Vascular Provider 12/31/19 12/16/20 Marcos Sandoval MD NO INFO AVAILABLE 10/03/22 Assigned PCP 04/30/20 05/06/20 Korin Lamb MD [address] [place] [address] Assigned PCP 05/07/20 05/28/20 Gavi Cloud MD [address] [place] [address] Assigned PCP 05/29/20 01/06/21 Jasmin Maradiaga PA-C [address] [place] [address] Assigned PCP 01/07/21 09/28/21 Itzel Polk APRN HEALTH EQUIPMENT SERVICER NO INFO AVAILABLE 12/27/2021 Assigned Heart and Vascular Provider 12/17/20 02/17/21 Carl Farah MD [address] [place] [phone] Assigned Heart and Vascular Provider 02/18/21 12/14/21 Gavi Cloud MD [address] [place], [place] [address] Assigned PCP 09/29/21 10/19/21 Jasmin Maradiaga PA-C [address] [place] [address] Assigned PCP 10/20/21 Itzel Polk APRN HEALTH EQUIPMENT SERVICER NO INFO AVAILABLE 12/27/2021 Assigned Heart and Vascular Provider 12/15/21 05/17/22 Carl Farah MD [address] [place] [phone] Assigned Heart and Vascular Provider 05/18/22 Hector Goode MD 909 [facility] [id number] [place], [place] [address] Assigned Neuroscience Provider 07/01/23 documented as of this encounter
--- OUTSIDE RECORDS SUMMARY | 2024-02-02 15:48 | XMS_ITS | Encounter Summary ---
Author Organization [facility] Address [address] [place] [address] Care Team Providers Care Rolling Attendant Name Role Phone Roslyn Sandoval MD Primary Care Provider Unav ailable Hector Goode MD Unavailable John Cancino MD Unavailable [phone] Roslyn Sandoval MD Unavailable UnavailKorin Cash MD Unavailable +- 03 Korin Lamb MD Primary Care Provider [phone] Carl Farah MD Unavailable +[phone] Roslyn Sandoval MD Unavailable UnavailKorin Cash MD Unavailable +- 03 Gavi Cloud MD Unavailable +[phone] Jasmin Maradiaga PA-C Unavailable + Itzel Polk APRN BOTTLE FEEDER Unavailable Unavailable Carl Farah MD Unavailable +[phone] Jasmin Maradiaga PA-C Primary Care Provid er Gavi Cloud MD Unavailable +[phone] Jasmin Maradiaga PA-C Unavailable + [phone] Itzel Polk APRN BOTTLE FEEDER Unavailable Unavailable Carl Farah MD Unavailable +[phone] Hector Goode MD Unavailable Encounter Details Date Type Department Care Team (Late st Contact Info) Description 11/23/2003 Abstract [facility] [address] [place] [address] Abstract, Provider ABSTRACTING RESULTS (Primary Dx) Social History Tobacco Use Types Packs/Day Years Used Date Smoking Tobacco: Never Alcohol Use Standard Drinks/Week Comments No 0 (1 standard drink = 0.6 oz pur e alcohol) on occ Comments No Sex and Gender Information Value Date Recorded Sex Assigned at Not on file Legal Sex Female 2:58 AM FINISHER FIBERGLASS BOAT PARTS Gender Identity Not on file Sexual Orientation Not on file documented as of this encounter Plan of Treatment Upcoming Encounters Date Type Department Care Team (Late Contact Info) Description 06/14/2024 1:00 PM CDT Office Visit [facility] Neurology Clinic [address] 3rd [place] [phone] Hector Goode MD [address] [place] [address] [id number] [place] [address] Scheduled Procedures Name Priority Associated Diagnoses Date/Ti me CHOLECYSTECTOMY, LAPAROSCOPIC Cholecystitis Choledocholithiasis with acute cholecystitis 02/02/2024 12:27 PM FINISHER FIBERGLASS BOAT PARTS ENDOSCOPIC RETROGRADE CHOLANGIOPANCREATOGRAPHY, COMPLEX Cholecystitis Choledocholithiasis with acute cholecystitis 02/02/2024 12:27 PM FINISHER FIBERGLASS BOAT PARTS ENDOSCOPIC ULTRASOUND, ESOPHAGOSCOPY / UPPER GASTROINTESTINAL TRACT (GI) Cholecystitis Choledocholithiasis with acute cholecystitis 02/02/2024 12:27 PM FINISHER FIBERGLASS BOAT PARTS ENDOSCOPIC RETROGRADE CHOLANGIOPANCREATOGRAPHY, COMPLEX Cholecystitis Choledocholithiasis with acute cholecystitis documented as of this encounter Procedures Procedure Name Priority Date/Time Associated Diagnosis Comments ZZCL AFF HEMOGLOBIN Routine 10/19/2003 1 2:55 AM CDT ABSTRACTING RESULTS documented in this encounter Results * HEMOGLOBIN (10/19/2003 12:55 AM CDT) Hemoglobin 12.1 12 - 16 GM/DL [facility] us Provider Abstract LABORATORY Final Result [facility] [address] [place] [address], [facility] documented in this encounter Visit Diagnoses Diagnosis ABSTRACTING RESULTS- Primary documented in this encounter Care Teams Rolling Attendant Relationship Specialty Start Date End Date Roslyn Sandoval MD NO INFO AVAILABLE 10/03/22 PCP - General 03/27/99 08/11/19 Korin Lamb MD [address] , [address] [address] PCP - General Family Practice 08/12/19 03/15/21 Jasmin Maradiaga PA-C [address] , [address] [address] PCP - General Family Medicine 03/16/21 Hector Goode MD [address] [phone] Neurology 05/01/17 John Cancino MD [address] [address]256[address] Family Medicine - Sports Medicine 07/30/17 Roslyn Sandoval MD NO INFO AVAILABLE 10/03/22 Assigned PCP 02/08/18 06/05/19 Korin Lamb MD [address] , [address] [address] Assigned PCP 06/06/19 04/29/20 Carl Farah MD [address] [place] [address] Assigned Heart and Vascular Provider 12/31/19 12/16/20 Roslyn Sandoval MD NO INFO AVAILABLE 10/03/22 Assigned PCP 04/30/20 05/06/20 Korin Lamb MD [address] [place] [address] Assigned PCP 05/07/20 05/28/20 Gavi Cloud MD [address] [place] [address] Assigned PCP 05/29/20 01/06/21 Jasmin Maradiaga PA-C [address] [place] [address] Assigned PCP 01/07/21 09/28/21 Itzel Polk APRN BOTTLE FEEDER NO INFO AVAILABLE 12/27/2021 Assigned Heart and Vascular Provider 12/17/20 02/17/21 Carl Farah MD [address] [place] [address] Assigned Heart and Vascular Provider 02/18/21 12/14/21 Gavi Cloud MD [address] [place] [address] Assigned PCP 09/29/21 10/19/21 Jasmin Maradiaga PA-C [address] [place] [address] Assigned PCP 10/20/21 Itzel Polk APRN BOTTLE FEEDER NO INFO AVAILABLE 12/27/2021 Assigned Heart and Vascular Provider 12/15/21 05/17/22 Carl Farah MD 6[address] [facility] [address] [place] [phone] Assigned Heart and Vascular Provider 05/18/22 Hector Goode MD 909 [facility] [id number] [place] [address] Assigned Neuroscience Provider 07/01/23 documented as of this encounter
--- OUTSIDE RECORDS SUMMARY | 2024-02-02 15:48 | XMS_ITS | Encounter Summary ---
Author Organization [place] Address [address] [place] [address] Care Team Providers Care Patrol Police Lieutenant Name Role Phone Marcos Sandoval MD Primary Care Provider Unav ailable Hector Goode MD Unavailable John Cancino MD Unavailable [phone] Marcos Sandoval MD Unavailable UnavailKorin Cash MD Unavailable +- 03 Korin Lamb MD Primary Care Provider [phone] Carl Farah MD Unavailable +[phone] Marcos Sandoval MD Unavailable UnavailKorin Cash MD Unavailable +- 03 Gavi Cloud MD Unavailable +[phone] Jasmin Maradiaga PA-C Unavailable + Itzel Polk APRN HR BUSINESS PARTNER Unavailable Unavailable Carl Farah MD Unavailable +[phone] Jasmin Maradiaga PA-C Primary Care Provid er Gavi Cloud MD Unavailable +[phone] Jasmin Maradiaga PA-C Unavailable + [phone] Itzel Polk APRN HR BUSINESS PARTNER Unavailable Unavailable Carl Farah MD Unavailable +[phone] Hector Goode MD Unavailable Encounter Details Date Type Department Care Team (Late st Contact Info) Description 08/24/2004 Office Visit-[facility] [address] [place] [phone] Unknown, DoctorMD Social History Tobacco Use Types Packs/Day Years Used Date Smoking Tobacco: Never Alcohol Use Standard Drinks/Week Comments No 0 (1 standard drink = 0.6 oz pur e alcohol) on occ Comments No Sex and Gender Information Value Date Recorded Sex Assigned at Not on file Legal Sex Female 2:58 AM ENVIRONMENTAL SCIENCE INSTRUCTOR Gender Identity Not on file Sexual Orientation Not on file documented as of this encounter Progress Notes * Unknown, MD Temo - 08/28/2004 10:14 AM CDT Progress Note Created by: Yumiko Hernandez [id number] DATE: 08/24/2004 GRISELDA LAI DATE OF : 1945 AGE: [age] years old Referring Physician: MARCOS SANDOVAL Referring Clinic: [facility]. CURRENT DIAGNOSES 1. - Congestive Heart [...] Residence - lives alone; Place of - [place]; Hours Worked - 40 hours per week; Spouse's Oc cupation - disabled; PHYSICAL EXAMINATION VITAL SIGNS: Blood Pressure: 120/62 Sitting, Left arm, large cuff 104/63 Retaken by BILLET SHEARER/PA Pulse- 68.00/min. Weight- 266.00 lbs. Height- 65.00 [...] CDT Office Visit [facility] Neurology [address] 3rd [place] [phone] Hector Goode MD [address] [place] [address] Scheduled Procedures Name Priority Associated Diagnoses Date/Ti pa CHOLECYSTECTOMY, LAPAROSCOPIC Cholecystitis Choledocholithiasis with acute cholecystitis 02/02/2024 12:27 PM ENVIRONMENTAL SCIENCE INSTRUCTOR ENDOSCOPIC RETROGRADE CHOLANGIOPANCREATOGRAPHY, COMPLEX Cholecystitis Choledocholithiasis with acute cholecystitis 02/02/2024 12:27 PM ENVIRONMENTAL SCIENCE INSTRUCTOR ENDOSCOPIC ULTRASOUND, ESOPHAGOSCOPY / UPPER GASTROINTESTINAL TRACT (GI) Cholecystitis Choledocholithiasis with acute cholecystitis 02/02/2024 12:27 PM ENVIRONMENTAL SCIENCE INSTRUCTOR ENDOSCOPIC RETROGRADE CHOLANGIOPANCREATOGRAPHY, COMPLEX Cholecystitis Choledocholithiasis with acute cholecystitis documented as of this encounter Visit Diagnoses Not on filedocumented in this encounter Care Teams Patrol Police Lieutenant Relationship Specialty Start Date End Date Marcos Sandoval MD NO INFO AVAILABLE 10/03/22 PCP - General 03/27/99 08/11/19 Korin Lamb MD [address] [place] [address] PCP - General Family Practice 08/12/19 03/15/21 Jasmin Maradiaga PA-C [address] [place] [address] PCP - General Family Medicine 03/16/21 Hector Goode MD [address] [place] [address] Neurology 05/01/17 John Cancino MD [address] [place] [address] Family Medicine - Sports Medicine 07/30/17 Marcos Sandoval MD NO INFO AVAILABLE 10/03/22 Assigned PCP 02/08/18 06/05/19 Korin Lamb MD [address] [place] [address] Assigned PCP 06/06/19 04/29/20 Carl Farah MD [address] [place] [phone] Assigned Heart and Vascular Provider 12/31/19 12/16/20 Marcos Sandoval MD NO INFO AVAILABLE 10/03/22 Assigned PCP 04/30/20 05/06/20 Korin Lamb MD [address], [address] [place] [address] Assigned PCP 05/07/20 05/28/20 Gavi Cloud MD [address] [place] [address] Assigned PCP 05/29/20 01/06/21 Jasmin Maradiaga PA-C [address], [address] [place] [address] Assigned PCP 01/07/21 09/28/21 Itzel Polk APRN HR BUSINESS PARTNER NO INFO AVAILABLE 12/27/2021 Assigned Heart and Vascular Provider 12/17/20 02/17/21 Carl Farah MD [address] [place] [phone] Assigned Heart and Vascular Provider 02/18/21 12/14/21 Gavi Cloud MD [address] [place] [address] Assigned PCP 09/29/21 10/19/21 Jasmin Maradiaga PA-C [address], [address] [place] [address] Assigned PCP 10/20/21 Itzel Polk APRN HR BUSINESS PARTNER NO INFO AVAILABLE 12/27/2021 Assigned Heart and Vascular Provider 12/15/21 05/17/22 Carl Farah MD [address] [place] [phone] Assigned Heart and Vascular Provider 05/18/22 Hector Goode MD [address] [place] [address] [id number] [place] [address] Assigned Neuroscience Provider 07/01/23 documented as of this encounter
--- OUTSIDE RECORDS SUMMARY | 2024-02-02 15:48 | XMS_ITS | Encounter Summary ---
Author Organization [facility] Address [address] [place] [address] Care Team Providers Care Garden Equipment Mechanic Name Role Phone Marcos Sandoval MD Primary Care Provider Unav ailable Hector Goode MD Unavailable John Cancino MD Unavailable [phone] Marcos Sandoval MD Unavailable UnavailKorni Cash MD Unavailable +- 03 Korin Lamb MD Primary Care Provider [phone] Carl Farah MD Unavailable +[phone] Marcos Sandoval MD Unavailable UnavailKorin Cash MD Unavailable +- 03 Gavi Cloud MD Unavailable +[phone] Jasmin Maradiaga PA-C Unavailable + Itzel Polk APRN TUBE CUTTER Unavailable Unavailable Carl Farah MD Unavailable +[phone] Jasmin Maradiaga PA-C Primary Care Provid er Gavi Cloud MD Unavailable +[phone] Jasmin Maradiaga PA-C Unavailable + [phone] Itzel Polk APRN TUBE CUTTER Unavailable Unavailable Carl Farah MD Unavailable +[phone] Hector Goode MD Unavailable Encounter Details Date Type Department Care Team (Late st Contact Info) Description 08/19/2003 Office Visit-[facility] [address] [place] [phone] Unknown, DoctorMD Social History Tobacco Use Types Packs/Day Years Used Date Smoking Tobacco: Never Alcohol Use Standard Drinks/Week Comments No 0 (1 standard drink = 0.6 oz pur e alcohol) on occ Comments No Sex and Gender Information Value Date Recorded Sex Assigned at Not on file Legal Sex Female 2:58 AM 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 DATE: 08/19/2003 GRISELDA LAI DATE OF : 1945 AGE: [age] years old Referring Physician: MARCOS SANDOVAL Referring Clinic: [facility]. CURRENT DIAGNOSES 1. - [...] PM CDT Office Visit [facility] Neurology [address]rd [place] [address] Hector Goode MD [address] [address] Scheduled Procedures Name Priority Associated Diagnoses Date/Ti me CHOLECYSTECTOMY, LAPAROSCOPIC Cholecystitis Choledocholithiasis with acute cholecystitis 02/02/2024 12:27 PM MARKETING SPECIALIST ENDOSCOPIC RETROGRADE CHOLANGIOPANCREATOGRAPHY, COMPLEX Cholecystitis Choledocholithiasis with acute cholecystitis 02/02/2024 12:27 PM MARKETING SPECIALIST ENDOSCOPIC ULTRASOUND, ESOPHAGOSCOPY / UPPER GASTROINTESTINAL TRACT (GI) Cholecystitis Choledocholithiasis with acute cholecystitis 02/02/2024 12:27 PM MARKETING SPECIALIST ENDOSCOPIC RETROGRADE CHOLANGIOPANCREATOGRAPHY, COMPLEX Cholecystitis Choledocholithiasis with acute cholecystitis documented as of this encounter Visit Diagnoses Not on filedocumented in this encounter Care Teams Garden Equipment Mechanic Relationship Specialty Start Date End Date Marcos Sandoval MD NO INFO AVAILABLE 10/03/22 PCP - General 03/27/99 08/11/19 Korin Lamb MD [address], [address] [address] PCP - General Family Practice 08/12/19 03/15/21 Jasmin Maradiaga PA-C [address] , [address] [address] PCP - General Family Medicine 03/16/21 Hector Goode MD [address] [place] [address] Neurology 05/01/17 John Cancino MD [address] [place] [address] [id number] Family Medicine - Sports Medicine 07/30/17 Marcos Sandoval MD NO INFO AVAILABLE 10/03/22 Assigned PCP 02/08/18 06/05/19 Korin Lamb MD [address], [address] [address] Assigned PCP 06/06/19 04/29/20 Carl Farah MD [address] [place] [phone] Assigned Heart and Vascular Provider 12/31/19 12/16/20 Marcos Sandoval MD NO INFO AVAILABLE 10/03/22 Assigned PCP 04/30/20 05/06/20 Korin Lamb MD [address], [facility] [address] [place] [address] Assigned PCP 05/07/20 05/28/20 Gavi Cloud MD [address] [place] [address] Assigned PCP 05/29/20 01/06/21 Jasmin Maradiaga PA-C [address], [facility] [place] [address] [place] [address] Assigned PCP 01/07/21 09/28/21 Itzel Polk APRN TUBE CUTTER NO INFO AVAILABLE 12/27/2021 Assigned Heart and Vascular Provider 12/17/20 02/17/21 Carl Farah MD [address] [place] [phone] Assigned Heart and Vascular Provider 02/18/21 12/14/21 Gavi Cloud MD [address] [place] [address] Assigned PCP 09/29/21 10/19/21 Jasmin Maradiaga PA-C [address], [address] [place] [address] Assigned PCP 10/20/21 Itzel Polk APRN [facility] NO INFO AVAILABLE 12/27/2021 Assigned Heart and Vascular Provider 12/15/21 05/17/22 Calr Farah MD [address] [place] [phone] Assigned Heart and Vascular Provider 05/18/22 Hector Goode MD [address] [facility] [id number] [address] Assigned Neuroscience Provider 07/01/23 documented as of this encounter
--- OUTSIDE RECORDS SUMMARY | 2024-02-02 15:48 | XMS_ITS | Encounter Summary ---
Author Organization [facility] Address [address] [place] [address] Care Team Providers Care Acoustic Engineer Name Role Phone Marcos Sandoval MD Primary Care Provider Unav ailable Hector Goode MD Unavailable John Cancino MD Unavailable [phone] Marcos Sandoval MD Unavailable UnavailKorin Cash MD Unavailable +- 03 Korin Lamb MD Primary Care Provider [phone] Carl Farah MD Unavailable +[phone] Marcos Sandoval MD Unavailable UnavailKorin Cash MD Unavailable +- 03 Gavi Cloud MD Unavailable +[phone] Jasmin Maradiaga PA-C Unavailable + Itzel Polk APRN REQUIREMENTS ENGINEER Unavailable Unavailable Carl Farah MD Unavailable +[phone] Jasmin Maradiaga PA-C Primary Care Provid er Gavi Cloud MD Unavailable +[phone] Jasmin Maradiaga PA-C Unavailable + [phone] Itzel Polk APRN REQUIREMENTS ENGINEER Unavailable Unavailable Carl Farah MD Unavailable +[phone] Hector Goode MD Unavailable Encounter Details Date Type Department Care Team (Late st Contact Info) Description 02/15/2004 Office Visit-[facility] [address] [place] [phone] Unknown, DoctorMD Social History Tobacco Use Types Packs/Day Years Used Date Smoking Tobacco: Never Alcohol Use Standard Drinks/Week Comments No 0 (1 standard drink = 0.6 oz pur e alcohol) on occ Comments No Sex and Gender Information Value Date Recorded Sex Assigned at Not on file Legal Sex Female 2:58 AM CUTTER OUT Gender Identity Not on file Sexual Orientation Not on file documented as of this encounter Progress Notes * Unknown, DoctorMD - 02/20/2004 11:53 AM CST Progress Note Created by: Carl Farah M.D. DATE: 02/15/2004 GRISELDA LAI DATE OF : 1945 AGE: [age] years old Referring Physician: MARCOS SANDOVAL Referring Clinic: [facility]. CURRENT DIAGNOSES 1. - Congestive Heart [...] Residence - lives alone; Place of - [place]; Hours Worked - 40 hours per week; [...] months 4. F/U with Chato Parnell, MSN, SUPERVISING LIBRARIAN cholestec Carl Farah M.D. documented in this encounter Plan of Treatment Upcoming Encounters Date Type Department Care Team (Late st Contact Info) Description 06/14/2024 1:00 PM CDT Office Visit [facility] Neurology Clinic [address] 3rd [place] [phone] Hector Goode MD [address] [place] [address] [id number] [place], [place] [phone] Scheduled Procedures Name Priority Associated Diagnoses Date/Ti me CHOLECYSTECTOMY, LAPAROSCOPIC Cholecystitis Choledocholithiasis with acute cholecystitis 02/02/2024 12:27 PM CUTTER OUT ENDOSCOPIC RETROGRADE CHOLANGIOPANCREATOGRAPHY, COMPLEX Cholecystitis Choledocholithiasis with acute cholecystitis 02/02/2024 12:27 PM CUTTER OUT ENDOSCOPIC ULTRASOUND, ESOPHAGOSCOPY / UPPER GASTROINTESTINAL TRACT (GI) Cholecystitis Choledocholithiasis with acute cholecystitis 02/02/2024 12:27 PM CUTTER OUT ENDOSCOPIC RETROGRADE CHOLANGIOPANCREATOGRAPHY, COMPLEX Cholecystitis Choledocholithiasis with acute cholecystitis documented as of this encounter Visit Diagnoses Not on filedocumented in this encounter Care Teams Acoustic Engineer Relationship Specialty Start Date End Date Marcos Sandoval MD NO INFO AVAILABLE 10/03/22 PCP - General 03/27/99 08/11/19 Korin Lamb MD [address], [address] [place] [address] PCP - General Family Practice 08/12/19 03/15/21 Jasmin Maradiaga PA-C [address], [address] [address] PCP - General Family Medicine 03/16/21 Hector Goode MD [address] [address] Neurology 05/01/17 John Cancino MD [address] [address] Family Medicine - Sports Medicine 07/30/17 Marcos Sandoval MD NO INFO AVAILABLE 10/03/22 Assigned PCP 02/08/18 06/05/19 Korin Lamb MD [address] , [address] [address] Assigned PCP 06/06/19 04/29/20 Carl Farah MD [address] [facility] [address] [place] [phone] Assigned Heart and Vascular Provider 12/31/19 12/16/20 Marcos Sandoval MD NO INFO AVAILABLE 10/03/22 Assigned PCP 04/30/20 05/06/20 Korin Lamb MD [address], [address] [address] Assigned PCP 05/07/20 05/28/20 Gavi Cloud MD [address] [place] [address] Assigned PCP 05/29/20 01/06/21 Jasmin Maradiaga PA-C [address], [address] [place] [address] Assigned PCP 01/07/21 09/28/21 Itzel Polk APRN REQUIREMENTS ENGINEER NO INFO AVAILABLE 12/27/2021 Assigned Heart and Vascular Provider 12/17/20 02/17/21 Carl Farah MD [address] [place] [phone] Assigned Heart and Vascular Provider 02/18/21 12/14/21 Gavi Cloud MD [address] [place] [address] Assigned PCP 09/29/21 10/19/21 Jasmin Maradiaga PA-C [address], [address] [place] [address] Assigned PCP 10/20/21 Itzel Polk APRN REQUIREMENTS ENGINEER NO INFO AVAILABLE 12/27/2021 Assigned Heart and Vascular Provider 12/15/21 05/17/22 Carl Farah MD [address] [place] [phone] Assigned Heart and Vascular Provider 05/18/22 Hector Goode MD [address] [facility] [place] [id number] [place] [address] Assigned Neuroscience Provider 07/01/23 documented as of this encounter
--- OUTSIDE RECORDS SUMMARY | 2024-02-02 15:48 | XMS_ITS | Encounter Summary ---
Author Organization [facility] Address [address] [place] [address] Care Team Providers Care Fibre Technologist Name Role Phone Roslyn Sandoval MD Primary Care Provider Unav ailable Hector Goode MD Unavailable John Cancino MD Unavailable [phone] Roslyn Sandoval MD Unavailable UnavailKorin Cash MD Unavailable +- 03 Korin Lamb MD Primary Care Provider +[phone] Carl Farah MD Unavailable +[phone] Roslyn Sandoval MD Unavailable UnavailKorin Cash MD Unavailable +- 03 Gavi Cloud MD Unavailable +[phone] Jasmin Maradiaga PA-C Unavailable + Itzel Polk APRN [employer] END MAINSPRING FORMER Unavailable Unavailable Carl Farah MD Unavailable +[phone] Jasmin Maradiaga PA-C Primary Care Provid er Gavi Cloud MD Unavailable +[phone] Jasmin Maradiaga PA-C Unavailable + [phone] Itzel Polk APRN [employer] END MAINSPRING FORMER Unavailable Unavailable Carl Farah MD Unavailable +[phone] Hector Goode MD Unavailable Encounter Details Date Type Department Care Team (Late st Contact Info) Description 11/30/2004 [facility] [address] [place] [phone] Dionne uQach MD [address] [facility] [address] [place] [address] TACHYCARDIA NOS (Primary Dx); CHEST PAIN NOS; [...] on file Legal Sex Female 2:58 AM SPONSORSHIP COORDINATOR Gender Identity Not on file Sexual [...] Description 06/14/2024 1:00 PM CDT Office Visit [facility] [address]rd [place] [phone] Hector Goode MD [address] [place] [address] [id number] [place], [place] 555[address] Scheduled Procedures Name Priority Associated Diagnoses Date/Ti me CHOLECYSTECTOMY, LAPAROSCOPIC Cholecystitis Choledocholithiasis with acute cholecystitis 02/02/2024 12:27 PM SPONSORSHIP COORDINATOR ENDOSCOPIC RETROGRADE CHOLANGIOPANCREATOGRAPHY, COMPLEX Cholecystitis Choledocholithiasis with acute cholecystitis 02/02/2024 12:27 PM SPONSORSHIP COORDINATOR ENDOSCOPIC ULTRASOUND, ESOPHAGOSCOPY / UPPER GASTROINTESTINAL TRACT (GI) Cholecystitis Choledocholithiasis with acute cholecystitis 02/02/2024 12:27 PM SPONSORSHIP COORDINATOR ENDOSCOPIC RETROGRADE CHOLANGIOPANCREATOGRAPHY, COMPLEX Cholecystitis Choledocholithiasis with acute cholecystitis documented as of this encounter Visit Diagnoses Diagnosis Tachycardia, unspecified- Primary Chest pain, unspecified CONGESTIVE HEART FAILURE Congestive heart failure, unspecified Hypopotassemia documented in this encounter Care Teams Fibre Technologist Relationship Specialty Start Date End Date Roslyn Sandoval MD NO INFO AVAILABLE 10/03/22 PCP - General 03/27/99 08/11/19 Korni Lamb MD [address] , [address] [address] PCP - General Family Practice 08/12/19 03/15/21 Jasmin Maradiaga PA-C [address], [address] [address] PCP - General Family Medicine 03/16/21 Hector Goode MD [address] [place] [address] Neurology 05/01/17 John Cancino MD [address] [place] [address] Family Medicine - Sports Medicine 07/30/17 Roslyn Sandoval MD NO INFO AVAILABLE 10/03/22 Assigned PCP 02/08/18 06/05/19 Korin Lamb MD [address] , [address] [address] Assigned PCP 06/06/19 04/29/20 Carl Farah MD [address] [place] [phone] Assigned Heart and Vascular Provider 12/31/19 12/16/20 Roslyn Sandoval MD NO INFO AVAILABLE 10/03/22 Assigned PCP 04/30/20 05/06/20 Korin Lamb MD [address], [address] [place], [place] [address] Assigned PCP 05/07/20 05/28/20 Gavi Cloud MD [address] [place] [address] Assigned PCP 05/29/20 01/06/21 Jasmin Maradiaga PA-C [address], [address] [place] [address] Assigned PCP 01/07/21 09/28/21 Itzel Polk APRN [employer] END MAINSPRING FORMER NO INFO AVAILABLE 12/27/2021 Assigned Heart and Vascular Provider 12/17/20 02/17/21 Carl Farah MD [address] [place] [phone] Assigned Heart and Vascular Provider 02/18/21 12/14/21 Gavi Cloud MD [address] [place] [address] Assigned PCP 09/29/21 10/19/21 Jasmin Maradiaga PA-C [address] , [address] [place] [address] Assigned PCP 10/20/21 Itzel Polk APRN [employer] END MAINSPRING FORMER NO INFO AVAILABLE 12/27/2021 Assigned Heart and Vascular Provider 12/15/21 05/17/22 Carl Farah MD [address] [facility] [address] [place] [phone] Assigned Heart and Vascular Provider 05/18/22 Hector Goode MD [address] [facility] [id number] [place], [place] [address] Assigned Neuroscience Provider 07/01/23 documented as of this encounter
--- OUTSIDE RECORDS SUMMARY | 2024-02-02 15:48 | XMS_ITS | Encounter Summary ---
Author Organization [place] Address [address] [place] [address] Care Team Providers Care Pound Attendant Name Role Phone Marcos Sandoval MD Primary Care Provider Unav ailable Hector Goode MD Unavailable John Cancino MD Unavailable [phone] Marcos Sandoval MD Unavailable UnavailKorin Cash MD Unavailable +- 03 Korin Lamb MD Primary Care Provider [phone] Carl Farah MD Unavailable +[phone] Marcos Sandoval MD Unavailable UnavailKorin Cash MD Unavailable +- 03 Gavi Cloud MD Unavailable +[phone] Jasmin Maradiaga PA-C Unavailable + Itzel Polk APRN WEB PRODUCTION MANAGER Unavailable Unavailable Carl Farah MD Unavailable +[phone] Jasmin Maradiaga PA-C Primary Care Provid er Gavi Cloud MD Unavailable +[phone] Jasmin Maradiaga PA-C Unavailable + [phone] Itzel Polk APRN WEB PRODUCTION MANAGER Unavailable Unavailable Carl Farah MD Unavailable +[phone] Hector Goode MD Unavailable Encounter Details Date Type Department Care Team (Late st Contact Info) Description 12/11/2005 Office Visit-[facility] [address] [place] [phone] Unknown, DoctorMD Social History Tobacco Use Types Packs/Day Years Used Date Smoking Tobacco: Never Alcohol Use Standard Drinks/Week Comments No 0 (1 standard drink = 0.6 oz pur e alcohol) on occ Comments No Sex and Gender Information Value Date Recorded Sex Assigned at Not on file Legal Sex Female 2:58 AM PROJECT ECONOMIST Gender Identity Not on file Sexual Orientation Not on file documented as of this encounter Progress Notes * Unknown, DoctorMD - 12/19/2005 10:55 AM CDT Progress Note Created by: Jaspreet Dawson M.D. DATE: 12/03/2005 GRISELDA LAI DATE OF : 1945 AGE: [age] years old Referring Physician: MARCOS SANDOVAL Referring Clinic: [facility]. CURRENT DIAGNOSES 1. - Cardiomyopathy Idiopathic, [...] met actually when she was admitted to [facility] a while back with tachycardia and low potassium almost exactly a year ago. Griselda is a complex lady. She is quite bright. She is involved with her children and grandchildren and intends to live a long time and stay involved in their activities. She is currently traveling to [place] several times a week to visit her father who is in a residential. She finds it difficult toget about and [...] history;Residence - lives alone; Place of - [place]; Hours Worked - 40 hours per week; [...] Office Visit [facility] [address] 3rd [place] [phone] Hector Goode MD [address] [place] [address] [id number] [place] [address] Scheduled Procedures Name Priority Associated Diagnoses Date/Ti me CHOLECYSTECTOMY, LAPAROSCOPIC Cholecystitis Choledocholithiasis with acute cholecystitis 02/02/2024 12:27 PM PROJECT ECONOMIST ENDOSCOPIC RETROGRADE CHOLANGIOPANCREATOGRAPHY, COMPLEX Cholecystitis Choledocholithiasis with acute cholecystitis 02/02/2024 12:27 PM PROJECT ECONOMIST ENDOSCOPIC ULTRASOUND, ESOPHAGOSCOPY / UPPER GASTROINTESTINAL TRACT (GI) Cholecystitis Choledocholithiasis with acute cholecystitis 02/02/2024 12:27 PM PROJECT ECONOMIST ENDOSCOPIC RETROGRADE CHOLANGIOPANCREATOGRAPHY, COMPLEX Cholecystitis Choledocholithiasis with acute cholecystitis documented as of this encounter Visit Diagnoses Not on filedocumented in this encounter Care Teams Pound Attendant Relationship Specialty Start Date End Date Marcos Sandoval MD NO INFO AVAILABLE 10/03/22 PCP - General 03/27/99 08/11/19 Korin Lamb MD [address], [address] [place] [address] PCP - General Family Practice 08/12/19 03/15/21 Jasmin Maradiaga PA-C [address], [address] [address] PCP - General Family Medicine 03/16/21 Hector Goode MD [address] [address] Neurology 05/01/17 John Cancino MD [address] [address]56[address] Family Medicine - Sports Medicine 07/30/17 Marcos Sandoval MD NO INFO AVAILABLE 10/03/22 Assigned PCP 02/08/18 06/05/19 Korin Lamb MD [address] , [address] [address] Assigned PCP 06/06/19 04/29/20 Carl Farah MD [address] [facility] [address] [place] [address] Assigned Heart and Vascular Provider 12/31/19 12/16/20 Marcos Sandoval MD NO INFO AVAILABLE 10/03/22 Assigned PCP 04/30/20 05/06/20 Korin Lamb MD [address], [facility] [address] [place] [address] Assigned PCP 05/07/20 05/28/20 Gavi Cloud MD [address] [place] [address] Assigned PCP 05/29/20 01/06/21 Jasmin Maradiaga PA-C [address], [address] [place] [address] Assigned PCP 01/07/21 09/28/21 Itzel Polk APRN WEB PRODUCTION MANAGER NO INFO AVAILABLE 12/27/2021 Assigned Heart and Vascular Provider 12/17/20 02/17/21 Carl Farah MD [address] [place] [phone] Assigned Heart and Vascular Provider 02/18/21 12/14/21 Gavi Cloud MD [address] [place] [address] Assigned PCP 09/29/21 10/19/21 Jasmin Maradiaga PA-C [address], [address] [place] [address] Assigned PCP 10/20/21 Itzel Polk APRN WEB PRODUCTION MANAGER NO INFO AVAILABLE 12/27/2021 Assigned Heart and Vascular Provider 12/15/21 05/17/22 Carl Farah MD [address] [place] [phone] Assigned Heart and Vascular Provider 05/18/22 [address] Good[address] [facility] [id number] [place] [address] Assigned Neuroscience Provider 07/01/23 documented as of this encounter
--- OUTSIDE RECORDS SUMMARY | 2024-02-02 15:48 | XMS_ITS | Encounter Summary ---
Author Organization [place] Address [address] [place] [address] Care Team Providers Care Associate Software Development Engineer Name Role Phone Roslyn Sandoval MD Primary Care Provider Unav ailable Hector Goode MD Unavailable John Cancino MD Unavailable [phone] Roslyn Sandoval MD Unavailable UnavailKorin Cash MD Unavailable +- 03 Korin Lamb MD Primary Care Provider [phone] Carl Farah MD Unavailable +[phone] Roslyn Sandoval MD Unavailable UnavailKorin Cash MD Unavailable +- 03 Gavi Cloud MD Unavailable +[phone] Jasmin Maradiaga PA-C Unavailable + Itzel Polk APRN PROCUREMENT ASSISTANT Unavailable Unavailable Carl Farah MD Unavailable +[phone] Jasmin Maradiaga PA-C Primary Care Provid er Gavi Cloud MD Unavailable +[phone] Jasmin Maradiaga PA-C Unavailable + [phone] Itzel Polk APRN PROCUREMENT ASSISTANT Unavailable Unavailable Carl Farah MD Unavailable +[phone] Hector Goode MD Unavailable Encounter Details Date Type Department Care Team (Late st Contact Info) Description 09/21/2004 Abstract [facility] [address] [place] [address] Abstract, Provider ABSTRACTING RESULTS (Primary Dx) Social History Tobacco Use Types Packs/Day Years Used Date Smoking Tobacco: Never Alcohol Use Standard Drinks/Week Comments No 0 (1 standard drink = 0.6 oz pur e alcohol) on occ Comments No Sex and Gender Information Value Date Recorded Sex Assigned at Not on file Legal Sex Female 2:58 AM SKIVER BLOCKERS Gender Identity Not on file Sexual Orientation Not on file documented as of this encounter Plan of Treatment Upcoming Encounters Date Type Department Care Team ([facility] Contact Info) Description 06/14/2024 1:00 PM CDT Office Visit [facility] [address] 3rd [place] [phone] Hector Goode MD [address] [place] [address] [id number] [place] [address] Scheduled Procedures Name Priority Associated Diagnoses Date/Ti mo CHOLECYSTECTOMY, LAPAROSCOPIC Cholecystitis Choledocholithiasis with acute cholecystitis 02/02/2024 12:27 PM SKIVER BLOCKERS ENDOSCOPIC RETROGRADE CHOLANGIOPANCREATOGRAPHY, COMPLEX Cholecystitis Choledocholithiasis with acute cholecystitis 02/02/2024 12:27 PM SKIVER BLOCKERS ENDOSCOPIC ULTRASOUND, ESOPHAGOSCOPY / UPPER GASTROINTESTINAL TRACT (GI) Cholecystitis Choledocholithiasis with acute cholecystitis 02/02/2024 12:27 PM SKIVER BLOCKERS ENDOSCOPIC RETROGRADE CHOLANGIOPANCREATOGRAPHY, COMPLEX Cholecystitis Choledocholithiasis with [...] Abstract LABORATORY Final Result Performing Organization Address City/[facility]/ZIP Co de Phone Number [facility] [address] [place] [address] [address] [place] [address] * WBC (09/21/2004) WBC 7.3 4.3 - 11 thous/CU.MM [facility] Provider Abstract LABORATORY Final Result Performing Organization Address City/[facility]/ZIP Co de Phone Number [facility] [address] [place] [phone] documented in this encounter Visit Diagnoses Diagnosis ABSTRACTING RESULTS- Primary documented in this encounter Care Teams Associate Software Development Engineer Relationship Specialty Start Date End Date Roslyn Sandoval MD NO INFO AVAILABLE 10/03/22 PCP - General 03/27/99 08/11/19 Korin Lamb MD [address] [address] PCP - General Family Practice 08/12/19 03/15/21 Jasmin Maradiaga PA-C [address] [address] PCP - General Family Medicine 03/16/21 Hector Goode MD [address] [place] [address] Neurology 05/01/17 John Cancino MD [address] [place] [address] Family Medicine - Sports Medicine 07/30/17 Roslyn Sandoval MD NO INFO AVAILABLE 10/03/22 Assigned PCP 02/08/18 06/05/19 Korin Lamb MD [address] [address] Assigned PCP 06/06/19 04/29/20 Carl Farah MD [address] [place] [phone] Assigned Heart and Vascular Provider 12/31/19 12/16/20 Roslyn Sandoval MD NO INFO AVAILABLE 10/03/22 Assigned PCP 04/30/20 05/06/20 Korin Lamb MD [address] [address] Assigned PCP 05/07/20 05/28/20 Gavi Cloud MD [address] [place] [address] [address] Assigned PCP 05/29/20 01/06/21 Jasmin Maradiaga PA-C [address] [address] Assigned PCP 01/07/21 09/28/21 Itzel Polk APRN CNP NO INFO AVAILABLE 12/27/2021 Assigned Heart and Vascular Provider 12/17/20 02/17/21 Carl Farah MD [address] [place] [phone] Assigned Heart and Vascular Provider 02/18/21 12/14/21 Gavi Cloud MD [address] [place] [address] Assigned PCP 09/29/21 10/19/21 Jasmin Maradiaga PA-C [address], [address] [place] [address] Assigned PCP 10/20/21 Itzel Polk APRN PROCUREMENT ASSISTANT NO INFO AVAILABLE 12/27/2021 Assigned Heart and Vascular Provider 12/15/21 05/17/22 Carl Farah MD [address] [facility] [address] [place] [address] Assigned Heart and Vascular Provider 05/18/22 Hector Goode MD [address] [id number] [place] [address] Assigned Neuroscience Provider 07/01/23 documented as of this encounter
--- OUTSIDE RECORDS SUMMARY | 2024-02-02 15:48 | XMS_ITS | Encounter Summary ---
Author Organization [place] Address [address] [place] [address] Care Team Providers Care Risk Management Specialist Name Role Phone Roslyn Sandoval MD Primary Care Provider Unav ailable Hector Goode MD Unavailable John Cancino MD Unavailable [phone] Roslyn Sandoval MD Unavailable UnavailKorin Cash MD Unavailable +- 03 Korin Lamb MD Primary Care Provider +[phone] Carl Farah MD Unavailable +[phone] Roslyn Sandoval MD Unavailable UnavailKorin Cash MD Unavailable +- 03 Gavi Cloud MD Unavailable +[phone] Jasmin Maradiaga PA-C Unavailable + Itzel Polk APRN DIRECTOR OF PULMONARY UNIT Unavailable Unavailable Carl Farah MD Unavailable +[phone] Jasmin Maradiaga PA-C Primary Care Provid er Gavi Cloud MD Unavailable +[phone] Jasmin Maradiaga PA-C Unavailable + [phone] Itzel Polk APRN DIRECTOR OF PULMONARY UNIT Unavailable Unavailable Carl Farah MD Unavailable +[phone] Hector Goode MD Unavailable Encounter Details Date Type Department Care Team (Late st Contact Info) Description 07/31/2004 Abstract [facility] [address] [facility] [address] [place] [address] Roslyn Sandoval MD NO INFO AVAILABLE 10/03/22 ABSTRACTING RESULTS (Primary Dx) Social History Tobacco Use Types Packs/Day Years Used Date Smoking Tobacco: Never Alcohol Use Standard Drinks/Week Comments No 0 (1 standard drink = 0.6 oz pur e alcohol) on occ Comments No Sex and Gender Information Value Date Recorded Sex Assigned at Not on file Legal Sex Female 2:58 AM TRUST OFFICER Gender Identity Not on file Sexual Orientation Not on file documented as of this encounter Plan of Treatment Upcoming Encounters Date Type Department Care Team (Late Contact Info) Description 06/14/2024 1:00 PM CDT Office Visit [facility] [address] 3rd [place] [phone] Hector Goode MD [address] [place] [address] [id number] [place], [place] [id number] Scheduled Procedures Name Priority Associated Diagnoses Date/Ti me CHOLECYSTECTOMY, LAPAROSCOPIC Cholecystitis Choledocholithiasis with acute cholecystitis 02/02/2024 12:27 PM TRUST OFFICER ENDOSCOPIC RETROGRADE CHOLANGIOPANCREATOGRAPHY, COMPLEX Cholecystitis Choledocholithiasis with acute cholecystitis 02/02/2024 12:27 PM TRUST OFFICER ENDOSCOPIC ULTRASOUND, ESOPHAGOSCOPY / UPPER GASTROINTESTINAL TRACT (GI) Cholecystitis Choledocholithiasis with acute cholecystitis 02/02/2024 12:27 PM TRUST OFFICER ENDOSCOPIC RETROGRADE CHOLANGIOPANCREATOGRAPHY, COMPLEX Cholecystitis Choledocholithiasis with acute cholecystitis documented as of this encounter Procedures Procedure Name Priority Date/Time Associated Diagnosis Comments ZZCL AFF PTT Routine 07/27/2004 ABSTRACTING RESULTS ZZCL AFF PROTHROMBIN TIME/INR Routine 07/27/2004 ABSTRACTING RESULTS documented in this encounter Results * PROTHROMBIN TIME/INR (07/27/2004) INR Point of Care 3.8 [facility] Roslyn Sandoval MD LABORATORY Final Resul t [facility] [address] [place] [address], [facility] * PTT (07/27/2004) PTT 38.2 SECONDS [facility] Roslyn Sandoval MD LABORATORY Final Resul t [facility] [address] [place] [address] documented in this encounter Visit Diagnoses Diagnosis ABSTRACTING RESULTS- Primary documented in this encounter Care Teams Risk Management Specialist Relationship Specialty Start Date End Date Roslyn Sandoval MD NO INFO AVAILABLE 10/03/22 PCP - General 03/27/99 08/11/19 Korin Lamb MD [address], [address] [address] PCP - General Family Practice 08/12/19 03/15/21 Jasmin Maradiaga PA-C [address], [address] [address] PCP - General Family Medicine 03/16/21 Hector Goode MD [address] [address] Neurology 05/01/17 John Cancino MD [address] [place] [address] Family Medicine - Sports Medicine 07/30/17 Roslyn Sandoval MD NO INFO AVAILABLE 10/03/22 Assigned PCP 02/08/18 06/05/19 Korin Lamb MD [address] [address] Assigned PCP 06/06/19 04/29/20 Carl Farah MD [address] [place] [phone] Assigned Heart and Vascular Provider 12/31/19 12/16/20 Roslyn Sandoval MD NO INFO AVAILABLE 10/03/22 Assigned PCP 04/30/20 05/06/20 Korin Lamb MD [address] [address] Assigned PCP 05/07/20 05/28/20 Gavi Cloud MD [address] [place] [address] Assigned PCP 05/29/20 01/06/21 Jasmin Maradiaga PA-C [address] [address] Assigned PCP 01/07/21 09/28/21 Itzel Polk APRN DIRECTOR OF PULMONARY UNIT NO INFO AVAILABLE 12/27/2021 Assigned Heart and Vascular Provider 12/17/20 02/17/21 Carl Farah MD [address] [place] [phone] Assigned Heart and Vascular Provider 02/18/21 12/14/21 Gavi Cloud MD [address] [place] [address] Assigned PCP 09/29/21 10/19/21 Jasmin Maradiaga PA-C [address], [address] [place] [address] Assigned PCP 10/20/21 Itzel Polk APRN [facility] NO INFO AVAILABLE 12/27/2021 Assigned Heart and Vascular Provider 12/15/21 05/17/22 Carl Farah MD [address] [facility] [address] [place] [address] Assigned Heart and Vascular Provider 05/18/22 Hector Goode MD [address] [facility] [id number] [place] [address] Assigned Neuroscience Provider 07/01/23 documented as of this encounter
--- OUTSIDE RECORDS SUMMARY | 2024-02-02 15:48 | XMS_ITS | Encounter Summary ---
Author Organization [place] Address [address] [place] [address] Care Team Providers Care General Road Supervisor Name Role Phone Roslyn Sandoval MD Primary Care Provider Unav ailable Hector Goode MD Unavailable John Cancino MD Unavailable [phone] Roslyn Sandoval MD Unavailable UnavailKorin Cash MD Unavailable +- 03 Korin Lamb MD Primary Care Provider [phone] Carl Farah MD Unavailable +[phone] Roslyn Sandoval MD Unavailable UnavailKorin Cash MD Unavailable +- 03 Gavi Cloud MD Unavailable +[phone] Jasmin Maradiaga PA-C Unavailable + Itzel Polk APRN TUFTING MACHINE OPERATOR SINGLE NEEDLE Unavailable Unavailable Carl Farah MD Unavailable +[phone] Jasmin Maradiaga PA-C Primary Care Provid er Gavi Cloud MD Unavailable +[phone] Jasmin Maradiaga PA-C Unavailable + [phone] Itzel Polk APRN TUFTING MACHINE OPERATOR SINGLE NEEDLE Unavailable Unavailable Carl Farah MD Unavailable +[phone] Hector Goode MD Unavailable Encounter Details Date Type Department Care Team (Late st Contact Info) Description 07/19/2005 Abstract [facility] [address] [facility] [address] [place] [address] Roslyn Sandoval MD NO INFO AVAILABLE 10/03/22 ABSTRACTING RESULTS (Primary Dx) Social History Tobacco Use Types Packs/Day Years Used Date Smoking Tobacco: Never Alcohol Use Standard Drinks/Week Comments No 0 (1 standard drink = 0.6 oz pur e alcohol) on occ Comments No Sex and Gender Information Value Date Recorded Sex Assigned at Not on file Legal Sex Female 2:58 AM DIRECTOR SUPPLY CHAIN Gender Identity Not on file Sexual Orientation Not on file documented as of this encounter Plan of Treatment Upcoming Encounters Date Type Department Care Team (Late Contact Info) Description 06/14/2024 1:00 PM CDT Office Visit [facility] [address] 3rd [place] [phone] Hector Goode MD [address] [place] [address] [id number] [place], [place] [id number] Scheduled Procedures Name Priority Associated Diagnoses Date/Ti me CHOLECYSTECTOMY, LAPAROSCOPIC Cholecystitis Choledocholithiasis with acute cholecystitis 02/02/2024 12:27 PM DIRECTOR SUPPLY CHAIN ENDOSCOPIC RETROGRADE CHOLANGIOPANCREATOGRAPHY, COMPLEX Cholecystitis Choledocholithiasis with acute cholecystitis 02/02/2024 12:27 PM DIRECTOR SUPPLY CHAIN ENDOSCOPIC ULTRASOUND, ESOPHAGOSCOPY / UPPER GASTROINTESTINAL TRACT (GI) Cholecystitis Choledocholithiasis with acute cholecystitis 02/02/2024 12:27 PM DIRECTOR SUPPLY CHAIN ENDOSCOPIC RETROGRADE CHOLANGIOPANCREATOGRAPHY, COMPLEX Cholecystitis Choledocholithiasis with acute cholecystitis documented as of this encounter Procedures Procedure Name Priority Date/Time Associated Diagnosis Comments ZZCL AFF PROTHROMBIN TIME/INR Routine 07/19/2005 ABSTRACTING RESULTS ZZCL AFF WBC Routine 07/19/2005 ABSTRACTING RESULTS documented in this encounter Results * PROTHROMBIN TIME/INR (07/19/2005) INR Point of Care 3.5 Narrative YovannyFadumo bowdenn - 07/19/2005 PT=35.3secs Roslyn Sandoval MD LABORATORY Final Resul t * WBC (07/19/2005) WBC 6.6 10^9/L Roslyn Sandoval MD LABORATORY Final Resul t documented in this encounter Visit Diagnoses Diagnosis ABSTRACTING RESULTS- Primary documented in this encounter Care Teams General Road Supervisor Relationship Specialty Start Date End Date Roslyn Sandoval MD NO INFO AVAILABLE 10/03/22 PCP - General 03/27/99 08/11/19 Korin Lamb MD [address], [address] [address] PCP - General Family Practice 08/12/19 03/15/21 Jasmin Maradiaga PA-C [address], [address] [place] [address] PCP - General Family Medicine 03/16/21 Hector Goode MD [address] [place] [address] Neurology 05/01/17 John Cancion MD [address] [place] [address] Family Medicine - Sports Medicine 07/30/17 Roslyn Sandoval MD NO INFO AVAILABLE 10/03/22 Assigned PCP 02/08/18 06/05/19 Korin Lamb MD [address], [address] [place] [address] Assigned PCP 06/06/19 04/29/20 Carl Farah MD [address] [place] [phone] Assigned Heart and Vascular Provider 12/31/19 12/16/20 Roslyn Sandoval MD NO INFO AVAILABLE 10/03/22 Assigned PCP 04/30/20 05/06/20 Korin Lamb MD [address] , [facility] [address] [place] [address] Assigned PCP 05/07/20 05/28/20 Gavi Cloud MD [address] [place] [address] Assigned PCP 05/29/20 01/06/21 Jasmin Maradiaga PA-C [address] [address] Assigned PCP 01/07/21 09/28/21 Itzel Polk APRN CNP NO INFO AVAILABLE 12/27/2021 Assigned Heart and Vascular Provider 12/17/20 02/17/21 Carl Farah MD [address] [place] [phone] Assigned Heart and Vascular Provider 02/18/21 12/14/21 Gavi Cloud MD [address] [place] [address] Assigned PCP 09/29/21 10/19/21 Jasmin Maradiaga PA-C [address], [address] [place] [address] Assigned PCP 10/20/21 Itzel Polk APRN TUFTING MACHINE OPERATOR SINGLE NEEDLE NO INFO AVAILABLE 12/27/2021 Assigned Heart and Vascular Provider 12/15/21 05/17/22 Carl Farah MD [address] [facility] [address] [place] [address] Assigned Heart and Vascular Provider 05/18/22 Hector Goode MD 9 [facility] [id number] [place] [address] Assigned Neuroscience Provider 07/01/23 documented as of this encounter
--- OUTSIDE RECORDS SUMMARY | 2024-02-02 15:48 | XMS_ITS | Encounter Summary ---
Author Organization [facility] Address [address] [place] [address] Care Team Providers Care Data Operations Leader Name Role Phone Marcos Sandoval MD Primary Care Provider Unav ailable Hector Goode MD Unavailable John Cancino MD Unavailable [phone] Marcos Sandoval MD Unavailable UnavailKorin Cash MD Unavailable +- 03 Korin Lamb MD Primary Care Provider +[phone] Carl Farah MD Unavailable +[phone] Marcos Sandoval MD Unavailable UnavailKorin Cash MD Unavailable +- 03 Gavi Cloud MD Unavailable +[phone] Jasmin Maradiaga PA-C Unavailable + Itzel Polk APRN JAVA J2EE ARCHITECT Unavailable Unavailable Carl Farah MD Unavailable +[phone] Jasmin Maradiaga PA-C Primary Care Provid er Gavi Cloud MD Unavailable +[phone] Jasmin Maradiaga PA-C Unavailable + [phone] Itzel Polk APRN JAVA J2EE ARCHITECT Unavailable Unavailable Carl Farah MD Unavailable +[phone] Hector Goode MD Unavailable Encounter Details Date Type Department Care Team (Late st Contact Info) Description 04/27/2004 Office Visit-[facility] [address] [place] [phone] Unknown, DoctorMD Social History Tobacco Use Types Packs/Day Years Used Date Smoking Tobacco: Never Alcohol Use Standard Drinks/Week Comments No 0 (1 standard drink = 0.6 oz pur e alcohol) on occ Comments No Sex and Gender Information Value Date Recorded Sex Assigned at Not on file Legal Sex Female 2:58 AM BOBBIN CLEANER HAND Gender Identity Not on file Sexual [...] - lives alone; Place of - [place]; Hours Worked - 40 hours per week; [...] STOPPED TODAY: Lipitor 20 mg IMPRESSIONS/PLAN </B><FONT 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 History of idiopathic cardiomyopathy. The patient is tolerating her heart failure medications well at this time. She is without any signs or symptoms of heart failure on examination today. The patient will have a follow up echocardiogram in the fall as well as a follow up office visit with Carl Farha M.D. She is encouraged to contact us [...] [facility] [address] 3rd [place] [phone] Hector Goode MD [address] [place] [address] [id number] [place] [address] Scheduled Procedures Name Priority Associated Diagnoses Date/Ti me CHOLECYSTECTOMY, LAPAROSCOPIC Cholecystitis Choledocholithiasis with acute cholecystitis 02/02/2024 12:27 PM BOBBIN CLEANER HAND ENDOSCOPIC RETROGRADE CHOLANGIOPANCREATOGRAPHY, COMPLEX Cholecystitis Choledocholithiasis with acute cholecystitis 02/02/2024 12:27 PM BOBBIN CLEANER HAND ENDOSCOPIC ULTRASOUND, ESOPHAGOSCOPY / UPPER GASTROINTESTINAL TRACT (GI) Cholecystitis Choledocholithiasis with acute cholecystitis 02/02/2024 12:27 PM BOBBIN CLEANER HAND ENDOSCOPIC RETROGRADE CHOLANGIOPANCREATOGRAPHY, COMPLEX Cholecystitis Choledocholithiasis with acute cholecystitis documented as of this encounter Visit Diagnoses Not on filedocumented in this encounter Care Teams Data Operations Leader Relationship Specialty Start Date End Date Marcos Sandoval MD NO INFO AVAILABLE 10/03/22 PCP - General 03/27/99 08/11/19 Korin Lamb MD [address], [address] [place] [address] PCP - General Family Practice 08/12/19 03/15/21 Jasmin Maradiaga PA-C [address], [address] [address] PCP - General Family Medicine 03/16/21 Hector Goode MD [address] [address] Neurology 05/01/17 John Cancino MD [address] 612[address] Family Medicine - Sports Medicine 07/30/17 Marcos Sandoval MD NO INFO AVAILABLE 10/03/22 Assigned PCP 02/08/18 06/05/19 Korin Lamb MD [address] , [address] [address] Assigned PCP 06/06/19 04/29/20 Carl Farah MD 6405 [facility] [address] [place] [phone] Assigned Heart and Vascular Provider 12/31/19 12/16/20 Marcos Sandoval MD NO INFO AVAILABLE 10/03/22 Assigned PCP 04/30/20 05/06/20 Korin Lamb MD [address], [facility] [address] [place] [address] Assigned PCP 05/07/20 05/28/20 Gavi Cloud MD [address] [place] [address] Assigned PCP 05/29/20 01/06/21 Jasmin Maradiaga PA-C [address], [address] [place] [address] Assigned PCP 01/07/21 09/28/21 Itzel Polk APRN JAVA J2EE ARCHITECT NO INFO AVAILABLE 12/27/2021 Assigned Heart and Vascular Provider 12/17/20 02/17/21 Carl Farah MD [address] [place] [phone] Assigned Heart and Vascular Provider 02/18/21 12/14/21 Gavi Cloud MD [address] [place] [address] Assigned PCP 09/29/21 10/19/21 Jasmin Maradiaga PA-C [address], [address] [place] [address] Assigned PCP 10/20/21 Itzel Polk APRN JAVA J2EE ARCHITECT NO INFO AVAILABLE 12/27/2021 Assigned Heart and Vascular Provider 12/15/21 05/17/22 Carl Farah MD [address] [place] [phone] Assigned Heart and Vascular Provider 05/18/22 Hector Goode MD [address]09 [facility] [id number] [place] [address] Assigned Neuroscience Provider 07/01/23 documented as of this encounter
--- OUTSIDE RECORDS SUMMARY | 2024-02-02 15:48 | XMS_ITS | Encounter Summary ---
Author Organization [facility] Address [address] [place] [address] Care Team Providers Care Printing Gray Cloth Tender Name Role Phone Roslyn Sandoval MD Primary Care Provider Unav ailable Hector Goode MD Unavailable John Cancino MD Unavailable [phone] Roslyn Sandoval MD Unavailable UnavailKorin Cash MD Unavailable +- 03 Korin Lamb MD Primary Care Provider [phone] Carl Farah MD Unavailable +[phone] Roslyn Sandoval MD Unavailable UnavailKorin Cash MD Unavailable +- 03 Gavi Cloud MD Unavailable +[phone] Jasmin Maradiaga PA-C Unavailable + Itzel Polk APRN FINE ARTS INSTRUCTOR Unavailable Unavailable Carl Farah MD Unavailable +[phone] Jasmin Maradiaga PA-C Primary Care Provid er Gavi Cloud MD Unavailable +[phone] Jasmin Maradiaga PA-C Unavailable + [phone] Itzel Polk APRN FINE ARTS INSTRUCTOR Unavailable Unavailable Carl Farah MD Unavailable +[phone] Hector Goode MD Unavailable Encounter Details Date Type Department Care Team (Late st Contact Info) Description 12/01/2004 [facility] [address] [place] [phone] Saurav Judge MD XXX RETIRED XXX [address] [facility] 100 [place] [address] CARDIAC DYSRHYTHMIAS NEC; CONGESTIVE HEART [...] on file Legal Sex Female 2:58 AM FORM LAYER Gender Identity Not on file Sexual Orientation [...] CDT Office Visit [facility] [address] 3rd [place] [phone] Hector Goode MD [address] [place] [address] [id number] [place], [place] [id number] Scheduled Procedures Name Priority Associated Diagnoses Date/Ti me CHOLECYSTECTOMY, LAPAROSCOPIC Cholecystitis Choledocholithiasis with acute cholecystitis 02/02/2024 12:27 PM FORM LAYER ENDOSCOPIC RETROGRADE CHOLANGIOPANCREATOGRAPHY, COMPLEX Cholecystitis Choledocholithiasis with acute cholecystitis 02/02/2024 12:27 PM FORM LAYER ENDOSCOPIC ULTRASOUND, ESOPHAGOSCOPY / UPPER GASTROINTESTINAL TRACT (GI) Cholecystitis Choledocholithiasis with acute cholecystitis 02/02/2024 12:27 PM FORM LAYER ENDOSCOPIC RETROGRADE CHOLANGIOPANCREATOGRAPHY, COMPLEX Cholecystitis Choledocholithiasis with acute cholecystitis documented as of this encounter Visit Diagnoses Diagnosis Other specified cardiac dysrhythmias(427.89) Other specified cardiac dysrhythmias CONGESTIVE HEART FAILURE Congestive heart failure, unspecified Hypopotassemia documented in this encounter Care Teams Printing Gray Cloth Tender Relationship Specialty Start Date End Date Roslyn Sandoval MD NO INFO AVAILABLE 10/03/22 PCP - General 03/27/99 08/11/19 Korin Lamb MD [address], [address] [address] PCP - General Family Practice 08/12/19 03/15/21 Jasmin Maradiaga PA-C [address], [address] [place] [address] PCP - General Family Medicine 03/16/21 Hector Goode MD [address] [address] Neurology 05/01/17 John Cancino MD [address] 804315 Family Medicine - Sports Medicine 07/30/17 Roslyn Sandoval MD NO INFO AVAILABLE 10/03/22 Assigned PCP 02/08/18 06/05/19 Korin Lamb MD [address] [address] Assigned PCP 06/06/19 04/29/20 Carl Farah MD [address] [place] [phone] Assigned Heart and Vascular Provider 12/31/19 12/16/20 Roslyn Sandoval MD NO INFO AVAILABLE 10/03/22 Assigned PCP 04/30/20 05/06/20 Korin Lamb MD [address] [address] Assigned PCP 05/07/20 05/28/20 Gavi Cloud MD [address] [place] [address] Assigned PCP 05/29/20 01/06/21 Jasmin Maradiaga PA-C [address] [address] Assigned PCP 01/07/21 09/28/21 Itzel Polk APRN CNP NO INFO AVAILABLE 12/27/2021 Assigned Heart and Vascular Provider 12/17/20 02/17/21 Carl Farah MD [address] [place] [phone] Assigned Heart and Vascular Provider 02/18/21 12/14/21 Gavi Cloud MD [address] [address] Assigned PCP 09/29/21 10/19/21 Jasmin Maradiaga PA-C [address], [address] [place] [address] Assigned PCP 10/20/21 Itzel Polk APRN FINE ARTS INSTRUCTOR NO INFO AVAILABLE 12/27/2021 Assigned Heart and Vascular Provider 12/15/21 05/17/22 Carl Farah MD [address] [place] [phone] Assigned Heart and Vascular Provider 05/18/22 Hector Goode MD 909 [facility] [id number] [place] [address] Assigned Neuroscience Provider 07/01/23 documented as of this encounter
--- OUTSIDE RECORDS SUMMARY | 2024-02-02 15:48 | XMS_ITS | Encounter Summary ---
Author Organization [facility] Address [address] [place] [address] Care Team Providers Care Meal Temperer Name Role Phone Marcos Sandoval MD Primary Care Provider Unav ailable Hector Goode MD Unavailable John Cancino MD Unavailable [phone] Marcos Sandoval MD Unavailable UnavailKorin Cash MD Unavailable +- 03 Korin Lamb MD Primary Care Provider [phone] Carl Farah MD Unavailable +[phone] Marcos Sandoval MD Unavailable UnavailKorin Cash MD Unavailable +- 03 Gavi Cloud MD Unavailable +[phone] Jasmin Maradiaga PA-C Unavailable + Itzel Polk APRN MULTINEEDLE SHIRRER Unavailable Unavailable Carl Farah MD Unavailable +[phone] Jasmin Maradiaga PA-C Primary Care Provid er Gavi Cloud MD Unavailable +[phone] Jasmin Maradiaga PA-C Unavailable + [phone] Itzel Polk APRN MULTINEEDLE SHIRRER Unavailable Unavailable Carl Farah MD Unavailable +[phone] Hector Goode MD Unavailable Encounter Details Date Type Department Care Team (Late st Contact Info) Description 08/15/2004 Office Visit-[facility] [address] [place] [phone] Unknown, DoctorMD Social History Tobacco Use Types Packs/Day Years Used Date Smoking Tobacco: Never Alcohol Use Standard Drinks/Week Comments No 0 (1 standard drink = 0.6 oz pur e alcohol) on occ Comments No Sex and Gender Information Value Date Recorded Sex Assigned at Not on file Legal Sex Female 2:[address] Gender Identity Not on file Sexual Orientation Not on file documented as of this encounter Progress Notes * Unknown, MD Temo - 08/21/2004 2:31 PM CDT Progress Note Created by: Yumiko Hernandez [id number] DATE: 08/15/2004 GRISELDA LAI DATE OF : 1945 AGE: [age] years old Referring Physician: MARCOS SANDOVAL Referring Clinic: [facility]. CURRENT DIAGNOSES 1. - Congestive [...] Residence - lives alone; Place of - [place]; [...] Left arm, large cuff 100/70 Retaken by WOOD FUEL PELLETIZER/PA Pulse- 64.00/min. Weight- 265.00 lbs. Height- 65.00 [...] CDT Office Visit [facility] [address] 3rd [place] [phone] Hector Goode MD [address] [place] [address] [id number] [place], [place] [address]456[address] Scheduled Procedures Name Priority Associated Diagnoses Date/Ti me CHOLECYSTECTOMY, LAPAROSCOPIC Cholecystitis Choledocholithiasis with acute cholecystitis 02/02/2024 12:[address] JUDGE ENDOSCOPIC RETROGRADE CHOLANGIOPANCREATOGRAPHY, COMPLEX Cholecystitis Choledocholithiasis with acute cholecystitis 02/02/2024 12:[address] JUDGE ENDOSCOPIC ULTRASOUND, ESOPHAGOSCOPY / UPPER GASTROINTESTINAL TRACT (GI) Cholecystitis Choledocholithiasis with acute cholecystitis 02/02/2024 12:[address] JUDGE ENDOSCOPIC RETROGRADE CHOLANGIOPANCREATOGRAPHY, COMPLEX Cholecystitis Choledocholithiasis with acute cholecystitis documented as of this encounter Visit Diagnoses Not on filedocumented in this encounter Care Teams Meal Temperer Relationship Specialty Start Date End Date Marcos Sandoval MD NO INFO AVAILABLE 10/03/22 PCP - General 03/27/99 08/11/19 Korin Lamb MD [address], [facility] 100 [place] [address] PCP - General Family Practice 08/12/19 03/15/21 Jasmin Maradiaga PA-C [address], [address] [address] PCP - General Family Medicine 03/16/21 Hector Goode MD [address] [address] Neurology 05/01/17 John Cancino MD [address] [address] Family Medicine - Sports Medicine 07/30/17 Marcos Sandoval MD NO INFO AVAILABLE 10/03/22 Assigned PCP 02/08/18 06/05/19 Korin Lamb MD [address], [address] [address] Assigned PCP 06/06/19 04/29/20 Carl Farah MD [facility] [facility] [address] [place] [phone] Assigned Heart and Vascular Provider 12/31/19 12/16/20 Marcos Sandoval MD NO INFO AVAILABLE 10/03/22 Assigned PCP 04/30/20 05/06/20 Korin Lamb MD [address], [address] [place] [address] Assigned PCP 05/07/20 05/28/20 Gavi Cloud MD [address] [place] [address] Assigned PCP 05/29/20 01/06/21 Jasmin Maradiaga PA-C [address], [address] [place] [address] Assigned PCP 01/07/21 09/28/21 Itzel Polk APRN MULTINEEDLE SHIRRER NO INFO AVAILABLE 12/27/2021 Assigned Heart and Vascular Provider 12/17/20 02/17/21 Carl Farah MD [address] [place] [phone] Assigned Heart and Vascular Provider 02/18/21 12/14/21 Gavi Cloud MD [address] [place] [address] Assigned PCP 09/29/21 10/19/21 Jasmin Maradiaga PA-C [address], [facility] 100 [place] [address] Assigned PCP 10/20/21 Itzel Polk APRN MULTINEEDLE SHIRRER NO INFO AVAILABLE 12/27/2021 Assigned Heart and Vascular Provider 12/15/21 05/17/22 Carl Farah MD [address] [place] [phone] Assigned Heart and Vascular Provider 05/18/22 Hector Goode MD 909 [facility] [id number] [place] [address] Assigned Neuroscience Provider 07/01/23 documented as of this encounter
--- OUTSIDE RECORDS SUMMARY | 2024-02-02 15:48 | XMS_ITS | Encounter Summary ---
Author Organization [facility] Address [address] [place] [address] Care Team Providers Care Cash Surrender Calculator Name Role Phone Roslyn Sandoval MD Primary Care Provider Unav ailable Hector Goode MD Unavailable John Cancino MD Unavailable [phone] Roslyn Sandoval MD Unavailable UnavailKorin Cash MD Unavailable +- 03 Korin Lamb MD Primary Care Provider +[phone] Carl Farah MD Unavailable +[phone] Roslyn Sandoval MD Unavailable UnavailKorin Cash MD Unavailable +- 03 Gavi Cloud MD Unavailable +[phone] Jasmin Maradiaga PA-C Unavailable + Itzel Polk APRN STRIP STAMP STRAIGHTENER Unavailable Unavailable Carl Farah MD Unavailable +[phone] Jasmin Maradiaga PA-C Primary Care Provid er Gavi Cloud MD Unavailable +[phone] Jasmin Maradiaga PA-C Unavailable + [phone] Itzel Polk APRN STRIP STAMP STRAIGHTENER Unavailable Unavailable Carl Farah MD Unavailable +[phone] Hector Goode MD Unavailable Encounter Details Date Type Department Care Team (Late st Contact Info) Description 01/18/2005 Abstract [facility] [address] [place] [address] [address] [place] [address] Roslyn Sandoval MD NO INFO AVAILABLE 10/03/22 ABSTRACTING RESULTS (Primary Dx) Social History Tobacco Use Types Packs/Day Years Used Date Smoking Tobacco: Never Alcohol Use Standard Drinks/Week Comments No 0 (1 standard drink = 0.6 oz pur e alcohol) on occ Comments No Sex and Gender Information Value Date Recorded Sex Assigned at Not on file Legal Sex Female 2:58 AM APPLICATION SUPPORT ANALYST Gender Identity Not on file Sexual Orientation Not on file documented as of this encounter Plan of Treatment Upcoming Encounters Date Type Department Care Team (Late Contact Info) Description 06/14/2024 1:00 PM CDT Office Visit [facility] [address] 3rd [place] [phone] Hector Goode MD [address] [place] [address] [id number] [place], [place] [phone] Scheduled Procedures Name Priority Associated Diagnoses Date/Ti me CHOLECYSTECTOMY, LAPAROSCOPIC Cholecystitis Choledocholithiasis with acute cholecystitis 02/02/2024 12:27 PM APPLICATION SUPPORT ANALYST ENDOSCOPIC RETROGRADE CHOLANGIOPANCREATOGRAPHY, COMPLEX Cholecystitis Choledocholithiasis with acute cholecystitis 02/02/2024 12:27 PM APPLICATION SUPPORT ANALYST ENDOSCOPIC ULTRASOUND, ESOPHAGOSCOPY / UPPER GASTROINTESTINAL TRACT (GI) Cholecystitis Choledocholithiasis with acute cholecystitis 02/02/2024 12:27 PM APPLICATION SUPPORT ANALYST ENDOSCOPIC RETROGRADE CHOLANGIOPANCREATOGRAPHY, COMPLEX Cholecystitis Choledocholithiasis with [...] INTERNAL Narrative [facility] INTERNAL - 01/18/2005 Pt=24.8 Roslyn Sandoval MD LABORATORY Final Resul t Performing Organization Address City/[facility]/ZIP Co de Phone Number [facility] INTERNAL [address] * HEMOGLOBIN (01/18/2005) Hemoglobin 12.5 12 - 16 GM/DL [facility] INTERNAL Roslyn Sandoval MD LABORATORY Final Resul t Performing Organization Address [facility] Co de Phone Number [facility] INTER[facility] [address] * WBC (01/18/2005) WBC 4.8 4.3 - 11 thous/CU.MM [facility] INTERNAL Roslyn Sandoval MD LABORATORY Final Resul t Performing Organization Address [facility] [[email or web address]] de Phone Number [facility] INTERNAL [address] documented in this encounter Visit Diagnoses Diagnosis ABSTRACTING RESULTS- Primary documented in this encounter Care Teams Cash Surrender Calculator Relationship Specialty Start Date End Date Roslyn Sandoval MD NO INFO AVAILABLE 10/03/22 PCP - General 03/27/99 08/11/19 Korin Lamb MD [address], [address] [place] [address] PCP - General Family Practice 08/12/19 03/15/21 Jasmin Maradiaga PA-C [address], [address] [place] [address] PCP - General Family Medicine 03/16/21 Hector Goode MD 909 [id number] [place] [address] Neurology 05/01/17 John Cancino MD [address] [place] [id number] [place] [address] Family Medicine - Sports Medicine 07/30/17 Roslyn Sandoval MD NO INFO AVAILABLE 10/03/22 Assigned PCP 02/08/18 06/05/19 Korin Lamb MD [address] [address] Assigned PCP 06/06/19 04/29/20 Carl Farah MD [address] [place] [phone] Assigned Heart and Vascular Provider 12/31/19 12/16/20 Roslyn Sandoval MD NO INFO AVAILABLE 10/03/22 Assigned PCP 04/30/20 05/06/20 Korin Lamb MD [address] , [address] [address] Assigned PCP 05/07/20 05/28/20 Gavi Cloud MD [address] [place] [address] Assigned PCP 05/29/20 01/06/21 Jasmin Maradiaga PA-C [address], [address] [place] [address] Assigned PCP 01/07/21 09/28/21 Itzel Polk APRN STRIP STAMP STRAIGHTENER NO INFO AVAILABLE 12/27/2021 Assigned Heart and Vascular Provider 12/17/20 02/17/21 Carl Farah MD [address] [place] [phone] Assigned Heart and Vascular Provider 02/18/21 12/14/21 Gavi Cloud MD [address] [place] [address] Assigned PCP 09/29/21 10/19/21 Jasmin Maradiaga PA-C [address], [address] [place] [address] Assigned PCP 10/20/21 Itzel Polk APRN STRIP STAMP STRAIGHTENER NO INFO AVAILABLE 12/27/2021 Assigned Heart and Vascular Provider 12/15/21 05/17/22 Carl Farah MD [address] [place] [phone] Assigned Heart and Vascular Provider 05/18/22 Hector Goode MD 909 [facility] [id number] [place] [address] Assigned Neuroscience Provider 07/01/23 documented as of this encounter
--- OUTSIDE RECORDS SUMMARY | 2024-02-02 15:48 | XMS_ITS | Encounter Summary ---
Author Organization [place] Address [address] [place] [address] Care Team Providers Care Oracle Database Consultant Name Role Phone Roslyn Sandoval MD Primary Care Provider Unav ailable Hector Goode MD Unavailable John Cancino MD Unavailable [phone] Roslyn Sandoval MD Unavailable UnavailKorin Cash MD Unavailable +- 03 Korin Lamb MD Primary Care Provider [phone] Carl Farah MD Unavailable +[phone] Roslyn Sandoval MD Unavailable UnavailKorin Cash MD Unavailable +- 03 Gavi Cloud MD Unavailable +[phone] Jasmin Maradiaga PA-C Unavailable + Itzel Polk APRN HEALTHCARE EDUCATOR Unavailable Unavailable Carl Farah MD Unavailable +[phone] Jasmin Maradiaga PA-C Primary Care Provid er Gavi Cloud MD Unavailable +[phone] Jasmin Maradiaga PA-C Unavailable + [phone] Itzel Polk APRN HEALTHCARE EDUCATOR Unavailable Unavailable Carl Farah MD Unavailable +[phone] Hector Goode MD Unavailable Reason for Visit * Reason Onset Date Comments Form Request 06/06/2004 Medical records request from Disability Determination Services, 06/05/04. Records mailed 06/06/04, payment of $35.00 will be sent after records are received. Encounter Details Date Type Department Care Team ([facility] Contact Info) Description 06/06/2004 Telephone [facility] Physicians [address] [place] [address] [address] [place] [address] Abstract, Provider Form Request (Medical records request [...] on file Legal Sex Female 2:58 AM ORTHO/PROSTHETIC AIDE Gender Identity Not on file Sexual Orientation Not on file documented as of this encounter Plan of Treatment Upcoming Encounters Date Type Department Care Team ([facility] Contact Info) Description 06/14/2024 1:00 PM CDT Office Visit [facility] Neurology Clinic [address] 3rd [place] [address] Hector Goode MD [address] [place] [address] [id number] [place] [address] Scheduled Procedures Name Priority Associated Diagnoses Date/Ti la CHOLECYSTECTOMY, LAPAROSCOPIC Cholecystitis Choledocholithiasis with acute cholecystitis 02/02/2024 12:27 PM ORTHO/PROSTHETIC AIDE ENDOSCOPIC RETROGRADE CHOLANGIOPANCREATOGRAPHY, COMPLEX Cholecystitis Choledocholithiasis with acute cholecystitis 02/02/2024 12:27 PM ORTHO/PROSTHETIC AIDE ENDOSCOPIC ULTRASOUND, ESOPHAGOSCOPY / UPPER GASTROINTESTINAL TRACT (GI) Cholecystitis Choledocholithiasis with acute cholecystitis 02/02/2024 12:27 PM ORTHO/PROSTHETIC AIDE ENDOSCOPIC RETROGRADE CHOLANGIOPANCREATOGRAPHY, COMPLEX Cholecystitis Choledocholithiasis with acute cholecystitis documented as of this encounter Visit Diagnoses Not on filedocumented in this encounter Care Teams Oracle Database Consultant Relationship Specialty Start Date End Date Roslyn Sandoval MD NO INFO AVAILABLE 10/03/22 PCP - General 03/27/99 08/11/19 Korin Lamb MD [address] , [address] [address] PCP - General Family Practice 08/12/19 03/15/21 Jasmin Maradiaga PA-C [address], [address] [address] PCP - General Family Medicine 03/16/21 Hector Goode MD [address] [address] Neurology 05/01/17 John Cancino MD [address] 656[address] Family Medicine - Sports Medicine 07/30/17 Roslyn Sandoval MD NO INFO AVAILABLE 10/03/22 Assigned PCP 02/08/18 06/05/19 Korin Lamb MD [address] , [address] [address] Assigned PCP 06/06/19 04/29/20 Carl Farah MD [address] [facility] [address] [place] [address] Assigned Heart and Vascular Provider 12/31/19 12/16/20 Roslyn Sandoval MD NO INFO AVAILABLE 10/03/22 Assigned PCP 04/30/20 05/06/20 Korin Lamb MD [address] [address] Assigned PCP 05/07/20 05/28/20 Gavi Cloud MD [address] [place] [address] Assigned PCP 05/29/20 01/06/21 Jasmin Maradiaga PA-C [address] [address] Assigned PCP 01/07/21 09/28/21 Itzel Polk APRN HEALTHCARE EDUCATOR NO INFO AVAILABLE 12/27/2021 Assigned Heart and Vascular Provider 12/17/20 02/17/21 Carl Farah MD [address] [facility] [address] [place] [address] Assigned Heart and Vascular Provider 02/18/21 12/14/21 Gavi Cloud MD [address] [place] [address] Assigned PCP 09/29/21 10/19/21 Jasmin Maradiaga PA-C [address] [address] Assigned PCP 10/20/21 Itzel Polk APRN HEALTHCARE EDUCATOR NO INFO AVAILABLE 12/27/2021 Assigned Heart and Vascular Provider 12/15/21 05/17/22 Carl Farah MD [address] [place] [address] Assigned Heart and Vascular Provider 05/18/22 Hector Goode MD [address]09 [facility] [id number] [place] [address] Assigned Neuroscience Provider 07/01/23 documented as of this encounter
--- OUTSIDE RECORDS SUMMARY | 2024-02-02 15:48 | XMS_ITS | Encounter Summary ---
Author Organization [place] Address [address] [place] [address] Care Team Providers Care Cigar Brander Name Role Phone Marcos Sandoval MD Primary Care Provider Unav ailable Hector Goode MD Unavailable John Cancino MD Unavailable [phone] Marcos Sandoval MD Unavailable UnavailKorin Cash MD Unavailable +- 03 Korin Lamb MD Primary Care Provider [phone] Carl Farah MD Unavailable +[phone] Marcos Sandoval MD Unavailable UnavailKorin Cash MD Unavailable +- 03 Gavi Cloud MD Unavailable +[phone] Jasmin Maradiaga PA-C Unavailable + Ian Polk APRN HAT MARKER Unavailable Unavailable Carl Farah MD Unavailable +[phone] Jasmin Maradiaga PA-C Primary Care Provid er Gavi Cloud MD Unavailable +[phone] Jasmin Maradiaga PA-C Unavailable + [phone] Ian Polk APRN HAT MARKER Unavailable Unavailable Carl Farah MD Unavailable +[phone] Hector Goode MD Unavailable Encounter Details Date Type Department Care Team (Late st Contact Info) Description 02/03/2006 Office Visit-[facility] Heart Clinic [address] [place] [address] Unknown, DoctorMD Social History Tobacco Use Types Packs/Day Years Used Date Smoking Tobacco: Never Alcohol Use Standard Drinks/Week Comments No 0 (1 standard drink = 0.6 oz pur e alcohol) on occ Comments No Sex and Gender Information Value Date Recorded Sex Assigned at Not on file Legal Sex Female 2:58 AM 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 DATE: 02/03/2006 GRISELDA LAI DATE OF : 1945 AGE: [age] years old Referring Physician: MARCOS SANDOVAL Referring Clinic: [facility]. CURRENT DIAGNOSES 1. - Cardiomyopathy Idiopathic, 425.4 [...] Visit [facility] Today Carl Farah M.D. Electronically signed by [facility], Emr Data Conversion at 07/22/2013 9:53 PM CDT documented in this encounter Plan of Treatment Upcoming Encounters Date Type Department Care Team (Late st Contact Info) Description 06/14/2024 1:00 PM CDT Office Visit [facility] Neurology Clinic [address] 3rd [place] [address] Hector Goode MD [address] [place] [address] [id number] [place] [address] Scheduled Procedures Name Priority Associated Diagnoses Date/Ti me CHOLECYSTECTOMY, LAPAROSCOPIC Cholecystitis Choledocholithiasis with acute cholecystitis 02/02/2024 12:27 PM MATERIALS MANAGEMENT CLERK ENDOSCOPIC RETROGRADE CHOLANGIOPANCREATOGRAPHY, COMPLEX Cholecystitis Choledocholithiasis with acute cholecystitis 02/02/2024 12:27 PM MATERIALS MANAGEMENT CLERK ENDOSCOPIC ULTRASOUND, ESOPHAGOSCOPY / UPPER GASTROINTESTINAL TRACT (GI) Cholecystitis Choledocholithiasis with acute cholecystitis 02/02/2024 12:27 PM MATERIALS MANAGEMENT CLERK ENDOSCOPIC RETROGRADE CHOLANGIOPANCREATOGRAPHY, COMPLEX Cholecystitis Choledocholithiasis with acute cholecystitis documented as of this encounter Visit Diagnoses Not on filedocumented in this encounter Care Teams Cigar Brander Relationship Specialty Start Date End Date Marcos Sandoval MD NO INFO AVAILABLE 10/03/22 PCP - General 03/27/99 08/11/19 Korin Lamb MD [address] [address] PCP - General Family Practice 08/12/19 03/15/21 Jasmin Maradiaga PA-C [address] [address] PCP - General Family Medicine 03/16/21 Hector Goode MD [address] [place] [address] Neurology 05/01/17 John Cancino MD [address] [place] [address] Family Medicine - Sports Medicine 07/30/17 Marcos Sandoval MD NO INFO AVAILABLE 10/03/22 Assigned PCP 02/08/18 06/05/19 Korin Lamb MD [address] [address] Assigned PCP 06/06/19 04/29/20 Carl Farah MD [address] [facility] [address] [place] [address] Assigned Heart and Vascular Provider 12/31/19 12/16/20 Marcos Sandoval MD NO INFO AVAILABLE 10/03/22 Assigned PCP 04/30/20 05/06/20 Korin Lamb MD [address] [place] [address] Assigned PCP 05/07/20 05/28/20 Gavi Cloud MD [address] [place] [address] Assigned PCP 05/29/20 01/06/21 Jasmin Maradiaga PA-C [address], [address] [place] [address] Assigned PCP 01/07/21 09/28/21 Ina Polk APRN HAT MARKER NO INFO AVAILABLE 12/27/2021 Assigned Heart and Vascular Provider 12/17/20 02/17/21 Carl Farah MD [address] [facility] [address] [place] [address] Assigned Heart and Vascular Provider 02/18/21 12/14/21 Gavi Cloud MD [address] [place] [address] Assigned PCP 09/29/21 10/19/21 Jasmin Maradiaga PA-C [address], [address] [place] [address] Assigned PCP 10/20/21 Ian Polk APRN HAT MARKER NO INFO AVAILABLE 12/27/2021 Assigned Heart and Vascular Provider 12/15/21 05/17/22 Carl Farah MD [address] [place] [address] Assigned Heart and Vascular Provider 05/18/22 Hector Goode MD 9 [facility] [id number] [place] [address] Assigned Neuroscience Provider 07/01/23 documented as of this encounter
--- OUTSIDE RECORDS SUMMARY | 2024-02-02 15:49 | XMS_ITS | Encounter Summary ---
Author Organization [place] Address [address] [place] [address] Care Team Providers Care Tank Riveter Name Role Phone Marcos Sandoval MD Primary Care Provider Unav ailable Hector Goode MD Unavailable John Cancino MD Unavailable [phone] Marcos Sandoval MD Unavailable UnavailKorin Cash MD Unavailable +- 03 Korin Lamb MD Primary Care Provider [phone] Carl Farah MD Unavailable [phone] Marcos Sandoval MD Unavailable UnavailKorin Cash MD Unavailable +- 03 Gavi Cloud MD Unavailable +[phone] Jasmin Maradiaga PA-C Unavailable + Itzel Polk APRN MANAGER STYLIST Unavailable Unavailable Carl Farah MD Unavailable +[phone] Jasmin Maradiaga PA-C Primary Care Provid er Gavi Cloud MD Unavailable +[phone] Jasmin Maradiaga PA-C Unavailable + [phone] Itzel oPlk APRN MANAGER STYLIST Unavailable Unavailable Carl Farah MD Unavailable +[phone] Hector Goode MD Unavailable Encounter Details Date Type Department Care Team (Late st Contact Info) Description 07/16/2001 Office Visit-[facility] [address] [place] [address] Unknown, DoctorMD Social History Tobacco Use Types Packs/Day Years Used Date Smoking Tobacco: Never Alcohol Use Standard Drinks/Week Comments No 0 (1 standard drink = 0.6 oz pur e alcohol) on occ Comments No Sex and Gender Information Value Date Recorded Sex Assigned at Not on file Legal Sex Female 2:58 AM 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 Electronically signed by [facility], Emr Data Conversion at 07/22/2013 9:53 PM CDT documented in this encounter Plan of Treatment Upcoming Encounters Date Type Department Care Team (Late st Contact Info) Description 06/14/2024 1:00 PM CDT Office Visit [facility] [place] [address] [place] [address] [address] [place] [address] Hector Goode MD [address] [place] [address] [id number] [place], [place] [id number] Scheduled Procedures Name Priority Associated Diagnoses Date/Ti me CHOLECYSTECTOMY, LAPAROSCOPIC Cholecystitis Choledocholithiasis with acute cholecystitis 02/02/2024 12:27 PM INTERNET E COMMERCE SPECIALIST ENDOSCOPIC RETROGRADE CHOLANGIOPANCREATOGRAPHY, COMPLEX Cholecystitis Choledocholithiasis with acute cholecystitis 02/02/2024 12:27 PM INTERNET E COMMERCE SPECIALIST ENDOSCOPIC ULTRASOUND, ESOPHAGOSCOPY / UPPER GASTROINTESTINAL TRACT (GI) Cholecystitis Choledocholithiasis with acute cholecystitis 02/02/2024 12:27 PM INTERNET E COMMERCE SPECIALIST ENDOSCOPIC RETROGRADE CHOLANGIOPANCREATOGRAPHY, COMPLEX Cholecystitis Choledocholithiasis with acute cholecystitis documented as of this encounter Visit Diagnoses Not on filedocumented in this encounter Care Teams Tank Riveter Relationship Specialty Start Date End Date Marcos Sandoval MD NO INFO AVAILABLE 10/03/22 PCP - General 03/27/99 08/11/19 Korin Lamb MD [address], [address] [place] [address] PCP - General Family Practice 08/12/19 03/15/21 Jasmin Maradiaga PA-C [address] , [address] [address] PCP - General Family Medicine 03/16/21 Hector Goode MD 909 [id number] [place] [address] Neurology 05/01/17 John Cancino MD [address]09 [id number] [place], [place] [address] Family Medicine - Sports Medicine 07/30/17 Marcos Sandoval MD NO INFO AVAILABLE 10/03/22 Assigned PCP 02/08/18 06/05/19 Korin Lamb MD [address] [address] Assigned PCP 06/06/19 04/29/20 Carl Farah MD [address] [facility] [address] [place] [address] Assigned Heart and Vascular Provider 12/31/19 12/16/20 Marcos Sandoval MD NO INFO AVAILABLE 10/03/22 Assigned PCP 04/30/20 05/06/20 Korin Lamb MD [address] , [address] [address] Assigned PCP 05/07/20 05/28/20 Gavi Cloud MD [address] [place] [address] Assigned PCP 05/29/20 01/06/21 Jasmin Maradiaga PA-C [address], [address] [place] [address] Assigned PCP 01/07/21 09/28/21 Itzel Polk APRN MANAGER STYLIST NO INFO AVAILABLE 12/27/2021 Assigned Heart and Vascular Provider 12/17/20 02/17/21 Carl Farah MD [address] [place] [address] Assigned Heart and Vascular Provider 02/18/21 12/14/21 Gavi Cloud MD [address] [place] [address] Assigned PCP 09/29/21 10/19/21 Jasmin Maradiaga PA-C [address], [facility] [address] [place] [address] Assigned PCP 10/20/21 Itzel Polk APRN MANAGER STYLIST NO INFO AVAILABLE 12/27/2021 Assigned Heart and Vascular Provider 12/15/21 05/17/22 Carl Farah MD [address] [place] [address] Assigned Heart and Vascular Provider 05/18/22 Hector Goode MD [address] [place] [address] [address] Assigned Neuroscience Provider 07/01/23 documented as of this encounter
--- OUTSIDE RECORDS SUMMARY | 2024-02-02 15:49 | XMS_ITS | Encounter Summary ---
Author Organization [place] Address [address] [place] [address] Care Team Providers Care Nurse Orthopaedic Name Role Phone Marcos Sandoval MD Primary Care Provider Unav ailable Hector Goode MD Unavailable John Cancino MD Unavailable [phone] Marcos Sandoval MD Unavailable UnavailKorin Cash MD Unavailable +- 03 Korin Lamb MD Primary Care Provider [phone] Carl Farah MD Unavailable +[phone] Marcos Sandoval MD Unavailable UnavailKorin Cash MD Unavailable +- 03 Gavi Cloud MD Unavailable +[phone] Jasmin Maradiaga PA-C Unavailable + Itzel Polk APRN CALL CENTER TRAINER Unavailable Unavailable Carl Farah MD Unavailable +[phone] Jasmin Maradiaga PA-C Primary Care Provid er Gavi Cloud MD Unavailable +[phone] Jasmin Maradiaga PA-C Unavailable + [phone] Itzel Polk APRN CALL CENTER TRAINER Unavailable Unavailable Carl Farah MD Unavailable +[phone] Hector Goode MD Unavailable Encounter Details Date Type Department Care Team (Late st Contact Info) Description 11/10/2002 Office Visit-[facility] Heart Clinic [address] [place] [phone] Unknown, DoctorMD Social History Tobacco Use Types Packs/Day Years Used Date Smoking Tobacco: Never Alcohol Use Standard Drinks/Week Comments No 0 (1 standard drink = 0.6 oz pur e alcohol) on occ Comments No Sex and Gender Information Value Date Recorded Sex Assigned at Not on file Legal Sex Female 2:58 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 She also went to [facility] for evaluation, in addition to [facility]. She describes a peculiar syndrome of flushing in her chest, although I am not sure that she is actually red, a heartburn feeling, and then garbled speech. The episodes will last for an hour or so. She was diagnosed with a TIA. She eventually went on to [facility]. 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 She had been on Coumadin. [facility] told them to stop it. I [...] Visit [facility] Neurology Clinic [address]rd [place] [address] Hector Goode MD [address] [place] [address] [id number] [place] [address] Scheduled Procedures Name Priority Associated Diagnoses Date/Ti me CHOLECYSTECTOMY, LAPAROSCOPIC Cholecystitis Choledocholithiasis with acute cholecystitis 02/02/2024 12:27 PM MARKETING CONTENT COORDINATOR ENDOSCOPIC RETROGRADE CHOLANGIOPANCREATOGRAPHY, COMPLEX Cholecystitis Choledocholithiasis with acute cholecystitis 02/02/2024 12:27 PM MARKETING CONTENT COORDINATOR ENDOSCOPIC ULTRASOUND, ESOPHAGOSCOPY / UPPER GASTROINTESTINAL TRACT (GI) Cholecystitis Choledocholithiasis with acute cholecystitis 02/02/2024 12:27 PM MARKETING CONTENT COORDINATOR ENDOSCOPIC RETROGRADE CHOLANGIOPANCREATOGRAPHY, COMPLEX Cholecystitis Choledocholithiasis with acute cholecystitis documented as of this encounter Visit Diagnoses Not on filedocumented in this encounter Care Teams Nurse Orthopaedic Relationship Specialty Start Date End Date Marcos Sandoval MD NO INFO AVAILABLE 10/03/22 PCP - General 03/27/99 08/11/19 Korin Lamb MD [address], [address] [address] PCP - General Family Practice 08/12/19 03/15/21 Jasmin Maradiaga PA-C [address], [address] [address] PCP - General Family Medicine 03/16/21 Hector Goode MD [address] [place] [address] Neurology 05/01/17 John Cancino MD [address] [place] [address] Family Medicine - Sports Medicine 07/30/17 Marcos Sandoval MD NO INFO AVAILABLE 10/03/22 Assigned PCP 02/08/18 06/05/19 Korin Lamb MD [address] [place] [address] Assigned PCP 06/06/19 04/29/20 Carl Farah MD [address] [place] [address] Assigned Heart and Vascular Provider 12/31/19 12/16/20 Marcos Sandoval MD NO INFO AVAILABLE 10/03/22 Assigned PCP 04/30/20 05/06/20 Korin Lamb MD [address] [place] [address] Assigned PCP 05/07/20 05/28/20 Gvai Cloud MD [address] [place] [address] [place] [address] Assigned PCP 05/29/20 01/06/21 Jasmin Maradiaga PA-C [address] [place] [address] Assigned PCP 01/07/21 09/28/21 Itzel Polk APRN CNP NO INFO AVAILABLE 12/27/2021 Assigned Heart and Vascular Provider 12/17/20 02/17/21 Carl Farah MD [address] [place] [address] Assigned Heart and Vascular Provider 02/18/21 12/14/21 Gavi Cloud MD [address] [place] [address] Assigned PCP 09/29/21 10/19/21 Jasmin Maradiaga PA-C [address] [place] [address] Assigned PCP 10/20/21 Itzel Polk APRN CALL CENTER TRAINER NO INFO AVAILABLE 12/27/2021 Assigned Heart and Vascular Provider 12/15/21 05/17/22 Carl Farah MD [address] [place] [address] Assigned Heart and Vascular Provider 05/18/22 Hector Goode MD 909 [facility] [id number] [place] [address] Assigned Neuroscience Provider 07/01/23 documented as of this encounter
--- OUTSIDE RECORDS SUMMARY | 2024-02-02 15:49 | XMS_ITS | Encounter Summary ---
Author Organization [facility] Address [address] [place] [address] Care Team Providers Care Copy Room Technician Name Role Phone Roslyn Sandoval MD Primary Care Provider Unav ailable Hector Goode MD Unavailable John Cancino MD Unavailable [phone] Roslyn Sandoval MD Unavailable UnavailKorin Cash MD Unavailable +- 03 Korin Lamb MD Primary Care Provider +[phone] Carl Farah MD Unavailable +[phone] Roslyn Sandoval MD Unavailable UnavailKorin Cash MD Unavailable +- 03 Gavi Cloud MD Unavailable +[phone] Jasmin Maradiaga PA-C Unavailable + Itzel Polk APRN GLUE LINE OPERATOR Unavailable Unavailable Carl Farah MD Unavailable +[phone] Jasmin Maradiaga PA-C Primary Care Provid er Gavi Cloud MD Unavailable +[phone] Jasmin Maradiaga PA-C Unavailable + [phone] Itzel Polk APRN GLUE LINE OPERATOR Unavailable Unavailable Carl Farah MD Unavailable +[phone] Hector Goode MD Unavailable Encounter Details Date Type Department Care Team (Late st Contact Info) Description 01/21/2002 Office Visit-[facility] [address] [place] [phone] Unknown, DoctorMD Social History Tobacco Use Types Packs/Day Years Used Date Smoking Tobacco: Never Alcohol Use Standard Drinks/Week Comments No 0 (1 standard drink = 0.6 oz pur e alcohol) on occ Comments No Sex and Gender Information Value Date Recorded Sex Assigned at Not on file Legal Sex Female 2:58 AM DIRECTOR SPEECH AND HEARING Gender Identity Not on file Sexual Orientation [...] Office Visit [facility] [address] [place] [address] Hector Goode MD [address] [place] [address] [id number] [place], [place] [address] Scheduled Procedures Name Priority Associated Diagnoses Date/Ti nh CHOLECYSTECTOMY, LAPAROSCOPIC Cholecystitis Choledocholithiasis with acute cholecystitis 02/02/2024 12:27 PM DIRECTOR SPEECH AND HEARING ENDOSCOPIC RETROGRADE CHOLANGIOPANCREATOGRAPHY, COMPLEX Cholecystitis Choledocholithiasis with acute cholecystitis 02/02/2024 12:27 PM DIRECTOR SPEECH AND HEARING ENDOSCOPIC ULTRASOUND, ESOPHAGOSCOPY / UPPER GASTROINTESTINAL TRACT (GI) Cholecystitis Choledocholithiasis with acute cholecystitis 02/02/2024 12:27 PM DIRECTOR SPEECH AND HEARING ENDOSCOPIC RETROGRADE CHOLANGIOPANCREATOGRAPHY, COMPLEX Cholecystitis Choledocholithiasis with acute cholecystitis documented as of this encounter Visit Diagnoses Not on filedocumented in this encounter Care Teams Copy Room Technician Relationship Specialty Start Date End Date Roslyn Sandoval MD NO INFO AVAILABLE 10/03/22 PCP - General 03/27/99 08/11/19 Korin Lamb MD [address] [address] PCP - General Family Practice 08/12/19 03/15/21 Jasmin Maradiaga PA-C [address] , [address] [address] PCP - General Family Medicine 03/16/21 Hector Goode MD [address] [address] Neurology 05/01/17 John Cancino MD [address] [address] Family Medicine - Sports Medicine 07/30/17 Roslyn Sandoval MD NO INFO AVAILABLE 10/03/22 Assigned PCP 02/08/18 06/05/19 Korin Lamb MD [address] [address] Assigned PCP 06/06/19 04/29/20 Carl Farah MD [address] [facility] [address] [place] [address] Assigned Heart and Vascular Provider 12/31/19 12/16/20 Roslyn Sandoval MD NO INFO AVAILABLE 10/03/22 Assigned PCP 04/30/20 05/06/20 Korin Lamb MD [address] , [facility] [address] [place] [address] Assigned PCP 05/07/20 05/28/20 Gavi Cloud MD [address] [place] [address] Assigned PCP 05/29/20 01/06/21 Jasmin Maradiaga PA-C [address] , [address] [place] [address] Assigned PCP 01/07/21 09/28/21 Itzel Polk APRN GLUE LINE OPERATOR NO INFO AVAILABLE 12/27/2021 Assigned Heart and Vascular Provider 12/17/20 02/17/21 Carl Farah MD 6405 [facility] [address] [place] [address] Assigned Heart and Vascular Provider 02/18/21 12/14/21 Gavi Cloud MD [address] [place] [address] Assigned PCP 09/29/21 10/19/21 Jasmin Maradiaga PA-C [address] , [facility] 100 [place] [address] Assigned PCP 10/20/21 Itzel Polk APRN GLUE LINE OPERATOR NO INFO AVAILABLE 12/27/2021 Assigned Heart and Vascular Provider 12/15/21 05/17/22 Carl Farah MD [address] [place] [address] Assigned Heart and Vascular Provider 05/18/22 Hector Goode MD 9 [facility] [id number] [place], [place] [address] Assigned Neuroscience Provider 07/01/23 documented as of this encounter
--- OUTSIDE RECORDS SUMMARY | 2024-02-02 15:49 | XMS_ITS | Encounter Summary ---
Author Organization [facility] Address [address] [place] [address] Care Team Providers Care Deployment Specialist Name Role Phone Marcos Sandoval MD Primary Care Provider Unav ailable Hector Goode MD Unavailable John Cancino MD Unavailable [phone] Marcos Sandoval MD Unavailable UnavailKorin Cash MD Unavailable +- 03 Korin Lamb MD Primary Care Provider +[phone] Carl Farah MD Unavailable +[phone] Marcos Sandoval MD Unavailable UnavailKorin Cash MD Unavailable +- 03 Gavi Cloud MD Unavailable +[phone] Jasmin Maradiaga PA-C Unavailable + Itzel Polk APRN CORPORATE LEGAL INTERN Unavailable Unavailable Carl Farah MD Unavailable +[phone] Jasmin Maradiaga PA-C Primary Care Provid er Gavi Cloud MD Unavailable +[phone] Jasmin Maradiaga PA-C Unavailable + [phone] Itzel Polk APRN CORPORATE LEGAL INTERN Unavailable Unavailable Carl Farah MD Unavailable +[phone] Hector Goode MD Unavailable Encounter Details Date Type Department Care Team (Late st Contact Info) Description 04/15/2003 Office Visit-[facility] [address] [place] [phone] Unknown, DoctorMD Social History Tobacco Use Types Packs/Day Years Used Date Smoking Tobacco: Never Alcohol Use Standard Drinks/Week Comments No 0 (1 standard drink = 0.6 oz pur e alcohol) on occ Comments No Sex and Gender Information Value Date Recorded Sex Assigned at Not on file Legal Sex Female 2:58 AM 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 CURRENT DIAGNOSES 1. - [...] Residence - lives alone; Place of - [place]; Hours Worked - 40 hours per week; [...] [facility] [address] [place] [address] Hector Goode MD [address] [place] [address] [id number] [place], [place] [address] Scheduled Procedures Name Priority Associated Diagnoses Date/Ti me CHOLECYSTECTOMY, LAPAROSCOPIC Cholecystitis Choledocholithiasis with acute cholecystitis 02/02/2024 12:27 PM HARDWARE SALES ASSISTANT ENDOSCOPIC RETROGRADE CHOLANGIOPANCREATOGRAPHY, COMPLEX Cholecystitis Choledocholithiasis with acute cholecystitis 02/02/2024 12:27 PM HARDWARE SALES ASSISTANT ENDOSCOPIC ULTRASOUND, ESOPHAGOSCOPY / UPPER GASTROINTESTINAL TRACT (GI) Cholecystitis Choledocholithiasis with acute cholecystitis 02/02/2024 12:27 PM HARDWARE SALES ASSISTANT ENDOSCOPIC RETROGRADE CHOLANGIOPANCREATOGRAPHY, COMPLEX Cholecystitis Choledocholithiasis with acute cholecystitis documented as of this encounter Visit Diagnoses Not on filedocumented in this encounter Care Teams Deployment Specialist Relationship Specialty Start Date End Date Marcos Sandoval MD NO INFO AVAILABLE 10/03/22 PCP - General 03/27/99 08/11/19 Korin Lamb MD [address] [address] PCP - General Family Practice 08/12/19 03/15/21 Jasmin Maradiaga PA-C [address] [address] PCP - General Family Medicine 03/16/21 Hector Goode MD 909 [id number] [place] [address] Neurology 05/01/17 John Cancino MD [address] [place] [id number] [address] Family Medicine - Sports Medicine 07/30/17 Marcos Sandoval MD NO INFO AVAILABLE 10/03/22 Assigned PCP 02/08/18 06/05/19 Korin Lamb MD [address] [address] Assigned PCP 06/06/19 04/29/20 Carl Farah MD 6405 [facility] [address] [place] [address] Assigned Heart and Vascular Provider 12/31/19 12/16/20 Marcos Sandoval MD NO INFO AVAILABLE 10/03/22 Assigned PCP 04/30/20 05/06/20 Korin Lamb MD [address] [address] Assigned PCP 05/07/20 05/28/20 Gavi Cloud MD [address] [place] [address] Assigned PCP 05/29/20 01/06/21 Jasmin Maradiaga PA-C [address] , [address] [address] Assigned PCP 01/07/21 09/28/21 Itzel Polk APRN CORPORATE LEGAL INTERN NO INFO AVAILABLE 12/27/2021 Assigned Heart and Vascular Provider 12/17/20 02/17/21 Carl Farha MD [address] [place] [address] Assigned Heart and Vascular Provider 02/18/21 12/14/21 Gavi Cloud MD [address] [place] [address] Assigned PCP 09/29/21 10/19/21 Jasmin Maradiaga PA-C [address] , [address] [address] Assigned PCP 10/20/21 Itzel Polk APRN CORPORATE LEGAL INTERN NO INFO AVAILABLE 12/27/2021 Assigned Heart and Vascular Provider 12/15/21 05/17/22 Carl Farah MD [address] [place] [address] Assigned Heart and Vascular Provider 05/18/22 Hector Goode MD 909 [facility], [place] [address] Assigned Neuroscience Provider 07/01/23 documented as of this encounter
--- OUTSIDE RECORDS SUMMARY | 2024-02-02 15:49 | XMS_ITS | Encounter Summary ---
Author Organization [facility] Address [address] [place] [address] Care Team Providers Care School Traffic Guard Name Role Phone Roslyn Sandoval MD Primary Care Provider Unav ailable Hector Goode MD Unavailable John Cancino MD Unavailable [phone] Roslyn Sandoval MD Unavailable UnavailKorin Cash MD Unavailable +- 03 Korin Lamb MD Primary Care Provider [phone] Carl Farah MD Unavailable +[phone] Roslyn Sandoval MD Unavailable UnavailKorin Cash MD Unavailable +- 03 Gavi Cloud MD Unavailable +[phone] Jasmin Maradiaga PA-C Unavailable + Itzel Polk APRN CLOTH DESIZING RANGE OPERATOR CHIEF Unavailable Unavailable Carl Farah MD Unavailable +[phone] Jasmin Maradiaga PA-C Primary Care Provid er Gavi Cloud MD Unavailable +[phone] Jasmin Maradiaga PA-C Unavailable + [phone] Itzel Polk APRN CLOTH DESIZING RANGE OPERATOR CHIEF Unavailable Unavailable Carl Farah MD Unavailable +[phone] Hector Goode MD Unavailable Encounter Details Date Type Department Care Team (Late st Contact Info) Description 05/04/2000 [facility] [address] [place] [address] [address] [place] [phone] Roslyn Sandoval MD NO INFO AVAILABLE 10/03/22 [...] Legal Sex Female 2:58 AM DIRECTOR OF HOUSING AND ENERGY SERVICES Gender Identity Not on file Sexual [...] Description 06/14/2024 1:00 PM CDT Office Visit [facility] [address] 3rd [place] [address] Hector Goode MD [address] [place] [address] [id number] [place] [address] Scheduled Procedures Name Priority Associated Diagnoses Date/Ti me CHOLECYSTECTOMY, LAPAROSCOPIC Cholecystitis Choledocholithiasis with acute cholecystitis 02/02/2024 12:27 PM DIRECTOR OF HOUSING AND ENERGY SERVICES ENDOSCOPIC RETROGRADE CHOLANGIOPANCREATOGRAPHY, COMPLEX Cholecystitis Choledocholithiasis with acute cholecystitis 02/02/2024 12:27 PM DIRECTOR OF HOUSING AND ENERGY SERVICES ENDOSCOPIC ULTRASOUND, ESOPHAGOSCOPY / UPPER GASTROINTESTINAL TRACT (GI) Cholecystitis Choledocholithiasis with acute cholecystitis 02/02/2024 12:27 PM DIRECTOR OF HOUSING AND ENERGY SERVICES ENDOSCOPIC RETROGRADE CHOLANGIOPANCREATOGRAPHY, COMPLEX Cholecystitis Choledocholithiasis with acute cholecystitis documented as of this encounter Visit Diagnoses Diagnosis Pain in joint, pelvic region and thigh- Primary documented in this encounter Care Teams School Traffic Guard Relationship Specialty Start Date End Date Roslyn Sandoval MD NO INFO AVAILABLE 10/03/22 PCP - General 03/27/99 08/11/19 Korin Lamb MD [address] , [address] [address] PCP - General Family Practice 08/12/19 03/15/21 Jasmin Maradiaga PA-C [address] , [address] [address] PCP - General Family Medicine 03/16/21 Hector Goode MD [address] [place] [address] Neurology 05/01/17 John Cancino MD [address] [place] [address] Family Medicine - Sports Medicine 07/30/17 Roslyn Sandoval MD NO INFO AVAILABLE 10/03/22 Assigned PCP 02/08/18 06/05/19 Korin Lamb MD [address] , [address] [address] Assigned PCP 06/06/19 04/29/20 Carl Farah MD 6405 [facility] [address] [place] [phone] Assigned Heart and Vascular Provider 12/31/19 12/16/20 Roslyn Sandoval MD NO INFO AVAILABLE 10/03/22 Assigned PCP 04/30/20 05/06/20 Korin Lamb MD [address], [address] [place] [address] Assigned PCP 05/07/20 05/28/20 Gavi Cloud MD [address] [place] [address] Assigned PCP 05/29/20 01/06/21 Jasmin Maradiaga PA-C [address], [address] [place] [address] Assigned PCP 01/07/21 09/28/21 Itzel Polk APRN CNP NO INFO AVAILABLE 12/27/2021 Assigned Heart and Vascular Provider 12/17/20 02/17/21 Carl Farah MD [address] [place] [address] Assigned Heart and Vascular Provider 02/18/21 12/14/21 Gavi Cloud MD [address] [place] [address] Assigned PCP 09/29/21 10/19/21 Jasmin Maradiaga PA-C [address], [address] [place] [address] Assigned PCP 10/20/21 Itzel Polk APRN CLOTH DESIZING RANGE OPERATOR CHIEF NO INFO AVAILABLE 12/27/2021 Assigned Heart and Vascular Provider 12/15/21 05/17/22 Carl Farah MD [address] [place] [address] Assigned Heart and Vascular Provider 05/18/22 Hector Goode MD 909 [facility] [id number] [place], [place] [address] Assigned Neuroscience Provider 07/01/23 documented as of this encounter
--- OUTSIDE RECORDS SUMMARY | 2024-02-02 15:49 | XMS_ITS | Encounter Summary ---
Author Organization [facility] Address [address] [place] [address] Care Team Providers Care Cloth Examiner Machine Name Role Phone Roslyn Sandoval MD Primary Care Provider Unav ailable Hector Goode MD Unavailable John Cancino MD Unavailable [phone] Roslyn Sandoval MD Unavailable UnavailKorin Cash MD Unavailable +- 03 Korin Lamb MD Primary Care Provider +[phone] Carl Farah MD Unavailable +[phone] Roslyn Sandoval MD Unavailable UnavailKorin Cash MD Unavailable +- 03 Gavi Cloud MD Unavailable +[phone] Jasmin Maradiaga PA-C Unavailable + Itzel Polk APRN WASTEWATER TREATMENT PLANT INSTRUCTOR Unavailable Unavailable Carl Farah MD Unavailable +[phone] Jasmin Maradiaga PA-C Primary Care Provid er Gavi Cloud MD Unavailable +[phone] Jasmin Maradiaga PA-C Unavailable + [phone] Itzel Polk APRN WASTEWATER TREATMENT PLANT INSTRUCTOR Unavailable Unavailable Carl Farah MD Unavailable +[phone] Hector Goode MD Unavailable Encounter Details Date Type Department Care Team (Late st Contact Info) Description 09/25/2002 [facility] Physicians [address] [place] [address] [address] [place] [phone] Roslyn Sandoval MD NO INFO AVAILABLE 10/03/22 TRANSIENT CEREBRAL ISCHEMIA NOS (Primary Dx); AFTERCARE SKILLED NURSING ANTICOAG USE; CHEST PAIN NOS Social History Tobacco Use Types Packs/Day Years Used Date Smoking Tobacco: Never Passive Smoke Exposure: Never Smokeless Tobacco: Never Alcohol Use Standard Drinks/Week Comments No 0 (1 standard drink = 0.6 oz pur e alcohol) Comments No Sex and Gender Information Value Date Recorded Sex Assigned at Not on file Legal Sex Female 2:58 AM AGRICULTURAL PRODUCE PACKER Gender Identity Not on file Sexual Orientation Not on file documented as of this encounter Progress Notes * 09/25/2002 11:59 PM CDT09/25/02 Admission H&P 09/26 TIA Coumadin management 09/27 Chest pain Coumadin management documented in this encounter Plan of Treatment Upcoming Encounters Date Type Department Care Team (Late st Contact Info) Description 06/14/2024 1:00 PM CDT Office Visit [facility] [address] 3rd [place] [address] Hector Goode MD [address] [place] [address] [id number] [place] [address] Scheduled Procedures Name Priority Associated Diagnoses Date/Ti me CHOLECYSTECTOMY, LAPAROSCOPIC Cholecystitis Choledocholithiasis with acute cholecystitis 02/02/2024 12:27 PM AGRICULTURAL PRODUCE PACKER ENDOSCOPIC RETROGRADE CHOLANGIOPANCREATOGRAPHY, COMPLEX Cholecystitis Choledocholithiasis with acute cholecystitis 02/02/2024 12:27 PM AGRICULTURAL PRODUCE PACKER ENDOSCOPIC ULTRASOUND, ESOPHAGOSCOPY / UPPER GASTROINTESTINAL TRACT (GI) Cholecystitis Choledocholithiasis with acute cholecystitis 02/02/2024 12:27 PM AGRICULTURAL PRODUCE PACKER ENDOSCOPIC RETROGRADE CHOLANGIOPANCREATOGRAPHY, COMPLEX Cholecystitis Choledocholithiasis with acute cholecystitis documented as of this encounter Procedures Procedure Name Priority Date/Time Associated Diagnosis Comments C SUBSEQUENT HOSPITAL CARE, LEVEL II Routine 09/29/2002 Aftercare Admissions Consultant Anticoag Use Transient Cerebral Ischemia Nos ZZC INITIAL HOSPITAL CARE,LEVL II Routine 09/25/2002 Transient Cerebral Ischemia Nos documented in this encounter Results * SUBSEQUENT HOSPITAL CARE,[facility] II (09/29/2002) Roslyn Sandoval MD EVALUATION AND MGMT Final R esult * INITIAL HOSPITAL CARE,[facility] II (09/25/2002) Roslyn Sandoval MD EVALUATION AND MGMT Final R esult documented in this encounter Visit Diagnoses Diagnosis Unspecified transient cerebral ischemia- Primary jail (current) use of anticoagulants Long-term (current) use of anticoagulants Chest pain, unspecified documented in this encounter Care Teams Cloth Examiner Machine Relationship Specialty Start Date End Date Roslyn Sandoval MD NO INFO AVAILABLE 10/03/22 PCP - General 03/27/99 08/11/19 Korin Lamb MD [address], [address] [address] PCP - General Family Practice 08/12/19 03/15/21 Jasmin Maradiaga PA-C [address] , [address] [address] PCP - General Family Medicine 03/16/21 Hector Goode MD [address] [address] Neurology 05/01/17 John Cancino MD [address] [place] [address] Family Medicine - Sports Medicine 07/30/17 Roslyn Sandoval MD NO INFO AVAILABLE 10/03/22 Assigned PCP 02/08/18 06/05/19 Korin Lamb MD [address] , [address] [address] Assigned PCP 06/06/19 04/29/20 Carl Farah MD [address] [place] [phone] Assigned Heart and Vascular Provider 12/31/19 12/16/20 Roslyn Sandoval MD NO INFO AVAILABLE 10/03/22 Assigned PCP 04/30/20 05/06/20 Korin Lamb MD [address] , [address] [address] Assigned PCP 05/07/20 05/28/20 Gavi Cloud MD [address] [place] [address] Assigned PCP 05/29/20 01/06/21 Jasmin Maradiaga PA-C [address] [address] Assigned PCP 01/07/21 09/28/21 Itzel Polk APRN WASTEWATER TREATMENT PLANT INSTRUCTOR NO INFO AVAILABLE 12/27/2021 Assigned Heart and Vascular Provider 12/17/20 02/17/21 Carl Farah MD [address] [place] [phone] Assigned Heart and Vascular Provider 02/18/21 12/14/21 Gavi Cloud MD [address] [place] [address] Assigned PCP 09/29/21 10/19/21 Jasmin Maradiaga PA-C [address], [address] [place] [address] Assigned PCP 10/20/21 Itzel Polk APRN WASTEWATER TREATMENT PLANT INSTRUCTOR NO INFO AVAILABLE 12/27/2021 Assigned Heart and Vascular Provider 12/15/21 05/17/22 Carl Farah MD 6405 [facility] [address] [place] [phone] Assigned Heart and Vascular Provider 05/18/22 Hector Goode MD 909 [facility] [id number] [place] [address] Assigned Neuroscience Provider 07/01/23 documented as of this encounter
--- OUTSIDE RECORDS SUMMARY | 2024-02-02 15:49 | XMS_ITS | Encounter Summary ---
Author Organization [facility] Address [address] [place] [address] Care Team Providers Care Profiling Machine Set Up Operator Tool Name Role Phone Marcos Sandoval MD Primary Care Provider Unav ailable Hector Goode MD Unavailable John Cancino MD Unavailable [phone] Marcos Sandoval MD Unavailable UnavailKorin Cash MD Unavailable +- 03 Korin Lamb MD Primary Care Provider [phone] Carl Farah MD Unavailable [phone] Marcos Sandoval MD Unavailable UnavailKorin Cash MD Unavailable +- 03 Gavi Cloud MD Unavailable +[phone] Jasmin Maradiaga PA-C Unavailable + Itzel Polk APRN FIELD COURT RESEARCHER Unavailable Unavailable Carl Farah MD Unavailable +[phone] Jasmin Maradiaga PA-C Primary Care Provid er Gavi Cloud MD Unavailable +[phone] Jasmin Maradiaga PA-C Unavailable + [phone] Itzel Polk APRN FIELD COURT RESEARCHER Unavailable Unavailable Carl Farah MD Unavailable +[phone] Hector Goode MD Unavailable Encounter Details Date Type Department Care Team (Late st Contact Info) Description 04/22/2003 Office Visit-[facility] [address] [place] [phone] Unknown, DoctorMD Social History Tobacco Use Types Packs/Day Years Used Date Smoking Tobacco: Never Alcohol Use Standard Drinks/Week Comments No 0 (1 standard drink = 0.6 oz pur e alcohol) on occ Comments No Sex and Gender Information Value Date Recorded Sex Assigned at Not on file Legal Sex Female 2:58 AM TIP PUNCHER Gender Identity Not on file Sexual Orientation [...] dilated cardiomyopathy. 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 She has been maintained on [...] Residence - lives alone; Place of - [place]; Hours Worked - 40 hours per week; [...] Upcoming Encounters Date Type Department Care Team ([facility] st Contact Info) Description 06/14/2024 1:00 PM CDT Office Visit [facility] Neurology Clinic [address] 3rd [place] [address] Hector Goode MD [address] [place] [address] [id number] [place] [address] Scheduled Procedures Name Priority Associated Diagnoses Date/Ti me CHOLECYSTECTOMY, LAPAROSCOPIC Cholecystitis Choledocholithiasis with acute cholecystitis 02/02/2024 12:27 PM TIP PUNCHER ENDOSCOPIC RETROGRADE CHOLANGIOPANCREATOGRAPHY, COMPLEX Cholecystitis Choledocholithiasis with acute cholecystitis 02/02/2024 12:27 PM TIP PUNCHER ENDOSCOPIC ULTRASOUND, ESOPHAGOSCOPY / UPPER GASTROINTESTINAL TRACT (GI) Cholecystitis Choledocholithiasis with acute cholecystitis 02/02/2024 12:27 PM TIP PUNCHER ENDOSCOPIC RETROGRADE CHOLANGIOPANCREATOGRAPHY, COMPLEX Cholecystitis Choledocholithiasis with acute cholecystitis documented as of this encounter Visit Diagnoses Not on filedocumented in this encounter Care Teams Profiling Machine Set Up Operator Tool Relationship Specialty Start Date End Date Marcos Sandoval MD NO INFO AVAILABLE 10/03/22 PCP - General 03/27/99 08/11/19 Korin Lamb MD [address], [place] [address] [place] [address] PCP - General Family Practice 08/12/19 03/15/21 Jasmin Maradiaga PA-C [address], [address] [place] [address] PCP - General Family Medicine 03/16/21 Hector Goode MD [address] [facility] [id number] [place] [address] Neurology 05/01/17 John Cancino MD [address] [address] Family Medicine - Sports Medicine 07/30/17 Marcos Sandoval MD NO INFO AVAILABLE 10/03/22 Assigned PCP 02/08/18 06/05/19 Korin Lamb MD [address] [address] Assigned PCP 06/06/19 04/29/20 Carl Farah MD [address] [place] [address] Assigned Heart and Vascular Provider 12/31/19 12/16/20 Marcos Sandoval MD NO INFO AVAILABLE 10/03/22 Assigned PCP 04/30/20 05/06/20 Korin Lamb MD [address] , [address] [address] Assigned PCP 05/07/20 05/28/20 Gavi Cloud MD [address] [place] [address] Assigned PCP 05/29/20 01/06/21 Jasmin Maradiaga PA-C [address], [address] [place] [address] Assigned PCP 01/07/21 09/28/21 Itzel Polk APRN FIELD COURT RESEARCHER NO INFO AVAILABLE 12/27/2021 Assigned Heart and Vascular Provider 12/17/20 02/17/21 Carl Farah MD [address] [place] [phone] Assigned Heart and Vascular Provider 02/18/21 12/14/21 Gavi Cloud MD [address] [place] [address] Assigned PCP 09/29/21 10/19/21 Jasmin Maradiaga PA-C [address], [address] [place] [address] Assigned PCP 10/20/21 Itzel Polk APRN FIELD COURT RESEARCHER NO INFO AVAILABLE 12/27/2021 Assigned Heart and Vascular Provider 12/15/21 05/17/22 Carl Farah MD [address] [place] [phone] Assigned Heart and Vascular Provider 05/18/22 Hector Goode MD [address] [facility] [id number] [place] [address] Assigned Neuroscience Provider 07/01/23 documented as of this encounter
--- OUTSIDE RECORDS SUMMARY | 2024-02-02 15:49 | XMS_ITS | Encounter Summary ---
Author Organization [facility] Address [address] [place] [address] Care Team Providers Care Kiln Setter Name Role Phone Roslyn Sandoval MD Primary Care Provider Unav ailable Hector Goode MD Unavailable John Cancino MD Unavailable [phone] Roslyn Sandoval MD Unavailable UnavailKorin Cash MD Unavailable +- 03 Korin Lamb MD Primary Care Provider [phone] Carl Fraah MD Unavailable [phone] Roslyn Sandoval MD Unavailable UnavailKorin Cash MD Unavailable +- 03 Gavi Cloud MD Unavailable +[phone] Jasmin Maradiaga PA-C Unavailable + Itzel Polk APRN PACKAGE CHECKER Unavailable Unavailable Carl Farah MD Unavailable +[phone] Jasmin Maradiaga PA-C Primary Care Provid er Gavi Cloud MD Unavailable +[phone] Jasmin Maradiaga PA-C Unavailable + [phone] Itzel Polk APRN PACKAGE CHECKER Unavailable Unavailable Carl Farah MD Unavailable +[phone] Hector Goode MD Unavailable Encounter Details Date Type Department Care Team (Late st Contact Info) Description 07/16/2001 Office Visit-[facility] [address] [place] [phone] Unknown, DoctorMD Social History Tobacco Use Types Packs/Day Years Used Date Smoking Tobacco: Never Alcohol Use Standard Drinks/Week Comments No 0 (1 standard drink = 0.6 oz pur e alcohol) on occ Comments No Sex and Gender Information Value Date Recorded Sex Assigned at Not on file Legal Sex Female 2:58 AM REMOTE SENSING SURVEYOR Gender Identity Not on file Sexual Orientation [...] Office Visit [facility] Neurology Clinic [address] 3rd [place] [address] Hector Goode MD [address] [place] [address] [id number] [place] [address] Scheduled Procedures Name Priority Associated Diagnoses Date/Ti me CHOLECYSTECTOMY, LAPAROSCOPIC Cholecystitis Choledocholithiasis with acute cholecystitis 02/02/2024 12:27 PM REMOTE SENSING SURVEYOR ENDOSCOPIC RETROGRADE CHOLANGIOPANCREATOGRAPHY, COMPLEX Cholecystitis Choledocholithiasis with acute cholecystitis 02/02/2024 12:27 PM REMOTE SENSING SURVEYOR ENDOSCOPIC ULTRASOUND, ESOPHAGOSCOPY / UPPER GASTROINTESTINAL TRACT (GI) Cholecystitis Choledocholithiasis with acute cholecystitis 02/02/2024 12:27 PM REMOTE SENSING SURVEYOR ENDOSCOPIC RETROGRADE CHOLANGIOPANCREATOGRAPHY, COMPLEX Cholecystitis Choledocholithiasis with acute cholecystitis documented as of this encounter Visit Diagnoses Not on filedocumented in this encounter Care Teams Kiln Setter Relationship Specialty Start Date End Date Roslyn Sandoval MD NO INFO AVAILABLE 10/03/22 PCP - General 03/27/99 08/11/19 Korin Lamb MD [address] , [address] [address] PCP - General Family Practice 08/12/19 03/15/21 Jasmin Maradiaga PA-C [address] , [address] [address] PCP - General Family Medicine 03/16/21 Hector Goode MD [address] [address] Neurology 05/01/17 John Cancino MD [address] [address] Family Medicine - Sports Medicine 07/30/17 Roslyn Sandoval MD NO INFO AVAILABLE 10/03/22 Assigned PCP 02/08/18 06/05/19 Korin Lamb MD [address] , [address] [address] Assigned PCP 06/06/19 04/29/20 Carl Farah MD [address] [facility] [address] [place] [address] Assigned Heart and Vascular Provider 12/31/19 12/16/20 Roslyn Sandoval MD NO INFO AVAILABLE 10/03/22 Assigned PCP 04/30/20 05/06/20 Korin Lamb MD [address] , [address] [address] Assigned PCP 05/07/20 05/28/20 Gavi Cloud MD [address] [facility] [place] [address] Assigned PCP 05/29/20 01/06/21 Jasmin Maradiaga PA-C [address] , [address] [place] [address] Assigned PCP 01/07/21 09/28/21 Itzel Polk APRN PACKAGE CHECKER NO INFO AVAILABLE 12/27/2021 Assigned Heart and Vascular Provider 12/17/20 02/17/21 Carl Farah MD [address] [place] [phone] Assigned Heart and Vascular Provider 02/18/21 12/14/21 Gavi Cloud MD [address] [place] [address] Assigned PCP 09/29/21 10/19/21 Jasmin Maradiaga PA-C [address] [place] [address] Assigned PCP 10/20/21 Itzel Polk APRN PACKAGE CHECKER NO INFO AVAILABLE 12/27/2021 Assigned Heart and Vascular Provider 12/15/21 05/17/22 Carl Farah MD [address] [place] [phone] Assigned Heart and Vascular Provider 05/18/22 Hector Goode MD [address] [place] [address] [address] Assigned Neuroscience Provider 07/01/23 documented as of this encounter
--- OUTSIDE RECORDS SUMMARY | 2024-02-02 15:49 | XMS_ITS | Encounter Summary ---
Author Organization [facility] Address [address] [place] [address] Care Team Providers Care Tooth Cutter Contact Wheel Name Role Phone Marcos Sandoval MD Primary Care Provider Unav ailable Hector Goode MD Unavailable John Cancino MD Unavailable [phone] Marcos Sandoval MD Unavailable UnavailKorin Cash MD Unavailable +- 03 Korin Lamb MD Primary Care Provider [phone] Carl Farah MD Unavailable +[phone] Marcos Sandoval MD Unavailable UnavailKorin Cash MD Unavailable +- 03 Gavi Cloud MD Unavailable +[phone] Jasmin Maradiaga PA-C Unavailable + Itzel Polk APRN REAL ESTATE OFFICER Unavailable Unavailable Carl Farah MD Unavailable +[phone] Jasmin Maradiaga PA-C Primary Care Provid er Gavi Cloud MD Unavailable +[phone] Jasmin Maradiaga PA-C Unavailable + [phone] Itzel Polk APRN REAL ESTATE OFFICER Unavailable Unavailable Carl Farah MD Unavailable +[phone] Hector Goode MD Unavailable Encounter Details Date Type Department Care Team (Late st Contact Info) Description 07/05/2002 Office Visit-[facility] Clinic [address] [place] [phone] Unknown, DoctorMD Social History Tobacco Use Types Packs/Day Years Used Date Smoking Tobacco: Never Alcohol Use Standard Drinks/Week Comments No 0 (1 standard drink = 0.6 oz pur e alcohol) on occ Comments No Sex and Gender Information Value Date Recorded Sex Assigned at Not on file Legal Sex Female 2:58 AM ZIGZAG ELASTIC ATTACHER Gender Identity Not on file Sexual Orientation [...] saw her lastshe was diagnosed with CML, [place] chromosome positive. She was started on Gleevec. [...] The patient did have an echocardiogram at [facility] in April. I believe that echo [...] Visit [facility] Neurology Clinic [address] 3rd [place] [address] Hector Goode MD [address] [place] [address] [id number] [place] [address] Scheduled Procedures Name Priority Associated Diagnoses Date/Ti me CHOLECYSTECTOMY, LAPAROSCOPIC Cholecystitis Choledocholithiasis with acute cholecystitis 02/02/2024 12:27 PM ZIGZAG ELASTIC ATTACHER ENDOSCOPIC RETROGRADE CHOLANGIOPANCREATOGRAPHY, COMPLEX Cholecystitis Choledocholithiasis with acute cholecystitis 02/02/2024 12:27 PM ZIGZAG ELASTIC ATTACHER ENDOSCOPIC ULTRASOUND, ESOPHAGOSCOPY / UPPER GASTROINTESTINAL TRACT (GI) Cholecystitis Choledocholithiasis with acute cholecystitis 02/02/2024 12:27 PM ZIGZAG ELASTIC ATTACHER ENDOSCOPIC RETROGRADE CHOLANGIOPANCREATOGRAPHY, COMPLEX Cholecystitis Choledocholithiasis with acute cholecystitis documented as of this encounter Visit Diagnoses Not on filedocumented in this encounter Care Teams Tooth Cutter Contact Wheel Relationship Specialty Start Date End Date Marcos Sandoval MD NO INFO AVAILABLE 10/03/22 PCP - General 03/27/99 08/11/19 Korin Lamb MD [address], [address] [place] [address] PCP - General Family Practice 08/12/19 03/15/21 Jasmin Maradiaga PA-C [address] , [address] [address] PCP - General Family Medicine 03/16/21 Hector Goode MD [address] [address] Neurology 05/01/17 John Cancino MD [address] [address] Family Medicine - Sports Medicine 07/30/17 Marcos Sandoval MD NO INFO AVAILABLE 10/03/22 Assigned PCP 02/08/18 06/05/19 Korin Lamb MD [address] , [address] [address] Assigned PCP 06/06/19 04/29/20 Carl Farah MD [address] [facility] [address] [place] [address] Assigned Heart and Vascular Provider 12/31/19 12/16/20 Marcos Sandoval MD NO INFO AVAILABLE 10/03/22 Assigned PCP 04/30/20 05/06/20 Korin Lamb MD [address] , [address] [address] Assigned PCP 05/07/20 05/28/20 Gavi Cloud MD [address] [place] [address] Assigned PCP 05/29/20 01/06/21 Jasmin Maradiaga PA-C [address], [address] [place] [address] Assigned PCP 01/07/21 09/28/21 Itzel Polk APRN REAL ESTATE OFFICER NO INFO AVAILABLE 12/27/2021 Assigned Heart and Vascular Provider 12/17/20 02/17/21 Carl Farah MD [address] [place] [phone] Assigned Heart and Vascular Provider 02/18/21 12/14/21 Gavi Cloud MD [address] [place] [address] Assigned PCP 09/29/21 10/19/21 Jasmin Maradiaga PA-C [address] , [address] [place] [address] Assigned PCP 10/20/21 Itzel Polk APRN REAL ESTATE OFFICER NO INFO AVAILABLE 12/27/2021 Assigned Heart and Vascular Provider 12/15/21 05/17/22 Carl Farah MD [address] [place] [address] Assigned Heart and Vascular Provider 05/18/22 Hector Goode MD [address] [place] [address] Assigned Neuroscience Provider 07/01/23 documented as of this encounter
== END 2024-02-01 11:11 | disposition home or self-care (01) ==
LOC: AMB 02-02 15:42
PROVIDERS: PCP Family Medicine; Visit Provider Family Medicine
DX: R10.9 Unspecified abdominal pain (principal); R11.2 Nausea with vomiting, unspecified
CPT/HCPCS: A0425; A0427

== ENCOUNTER 2025-01-07 17:14 | Observation (INO) | payer MEDICARE, BC, SELFPAY ==
--- OUTSIDE RECORDS SUMMARY | 2013-05-06 05:11 | XMS_ITS | Continuity of Care Document ---
Author Organization [facility] Address [address] [address] [place] [address] Phone Care Team Providers Care Clinical Research Spec Name Role Phone Unavailable Unavailable Unavailable Allergies, Adverse Reactions, Alerts Substance Reaction Status Criticality cortisone hot flashes and rapi d heart rate Active No Information Sulfa (Sulfonamide Antibiotics) unsure Active No Information Medications Medication Instructions Dosage Effective Dates (start - stop) Status Comments Avapro 75 mg tablet take 1 tablet (75MG) by oral route every day - Active Coreg 12.5 mg tablet take 1 tablet (12.5MG) by oral route 2 times every day with food 12.5 MG - Active Crestor 5 mg tablet take 1 tablet (5MG) by ORAL route every day 5 MG - Active furosemide 20 mg tablet take 1 tablet (20MG) by oral route every day - Active Gleevec 400 mg tablet take 1 tablet (400MG) by oral route every day with meals and a large glass of water 400 MG - Active POTASSIUM CHLORIDE (unknown strength) take 1 tablet by ORAL route every day with food Not Available - Active spironolactone 25 mg tablet take 1 tablet (25MG) by oral route every day 25 MG - Active Vitamin D3 2,000 unit tablet take 1 Tablet by Oral route every day 1 Tablet - Active aspirin, buffered 81 mg tablet take 1 Tablet by Oral route every day - Active Centrum Silver Ultra Women's tablet take one orally everyday - Active Fish Oil 1,000 mg capsule take 2 by Oral route every day - Active omeprazole 40 mg capsule,delayed release take 1 Capsule (40MG) by ORAL route every day before a meal as needed - Active Procedures Procedure Date Routine Serum Collection Sed Rate, Erythrocyte; Auto Bld Ct; Hg & Platelet Ct Autom 14 Hepatic Function Panel C-reactive Prot Offic/outpt E&m New [facility] [id number] Advance Directives Directive Yes / No Effective Date File Name No Information Encounters Encounter Description Practice Location Reason(s) For Visit Diagnoses Date Provider Providers Copied on Encounter [facility] [place], [address] [address], [place], [id number], [place] tel:[phone] [facility] No Information 4 No Information [facility] [place], [address] [address], [place], [id number], [place] tel:[phone] [facility] DiarrheaEpigastr ic PainNon-alcoholi c Fatty Liver 4 Bebe Jacinto. [address] [place] [address], [id number], [place]. tel:[phone] Referring Provider: Roslyn Schaeffer, [address] [place] [address], [id number]. tel:[phone] Offic/outpt E&m [facility] [place], [address] [address], [place], [id number], [place] tel:[phone] [facility] DiarrheaEpigastr ic PainNon-alcoholi c Fatty Liver 3 Bebe Jacinto. [address] [place] [address], [id number], [place]. tel:[phone] Referring Provider: Roslyn Schaeffer, [address] [place] [address], [id number]. tel:[phone] Family History Family Member Type Diagnosis Age At Onset First degree family history Problem (finding) Sister hx of C-Diff 2012 First degree family history Problem (finding) Cholelithasis First degree family history Problem (finding) No history of Crohn's First degree family history Problem (finding) No history of Cancer, colon First degree family history Problem (finding) Grandmother hx of stomach canc First degree family history Problem (finding) No history of Ulcerative Colitis First degree family history Problem (finding) No Family history of No history of Colon Polyps Payers Payer name Insurance type Covered republican ID Authoriza tion(s) Medicare NGS MB [id number] Social History Type Description Quantity Date Captured Comments Sex Female Smoking Status No Information Chief Complaint And Reason For Visit No Information Reason For Referral Reason For Referral No Information History Of Present Illness Encounter Date Complaint History Of Prese nt Illness No Information Functional Status Date Functional Assessmen t No Information Instructions Date Instruction Additional Infor mation No Information Assessments Type Assessment Date No Information Patient Care Teams Name Effective Dates (start - stop) Status Members No Information
--- OUTSIDE RECORDS SUMMARY | 2013-05-06 05:11 | XMS_ITS | Continuity of Care Document ---
Author Organization [facility] Address [address] [address] [place] [address] Phone Care Team Providers Care Parts Assembler Name Role Phone Unavailable Unavailable Unavailable Allergies, [...] Diagnoses Date Provider Providers Copied on Encounter [facility] [place], [address] [address], [place], [id number], [place] tel:[phone] [facility] No Information 4 No Information [facility] [place], [address] [address], [place], [id number], [place] tel:[phone] [facility] DiarrheaEpigastr ic PainNon-alcoholi c Fatty Liver 4 Bebe Jacinto. [address] [place] [address], [id number], [place]. tel:[phone] Referring Provider: Roslyn Schaeffer, [address] [place] [address], [id number]. tel:[phone] Offic/outpt E&m [facility] [place], [address] [address], [place], [id number], [place] tel:[phone] [facility] DiarrheaEpigastr ic PainNon-alcoholi c Fatty Liver 3 Bebe Jacinto. [address] [place] [address], [id number], [place]. tel:[phone] Referring Provider: Roslyn Schaeffer, [address] [place] [address], [id number]. tel:[phone] Family History Family Member Type Diagnosis Age [...] Polyps Payers Payer name Insurance type Covered libertarian ID Authoriza tion(s) Medicare NGS MB [id number] Social History Type Description Quantity Date Captured [...]
--- OUTSIDE RECORDS SUMMARY | 2023-04-02 11:34 | XMS_ITS | Continuity of Care Document ---
Author Organization [facility] maykel Address [address] [facility] [place] [address] Phone Care Team Providers Care Public Health Informatician Name Role Phone Violette Ashley DNP Unavailable [...] Diagnoses Date Provider Providers Copied on Encounter [facility], [address] [place], [place], [id number] , [place] tel:[phone] [facility] No Information 4 Dion Oakes. [address] [facility] [address], [place], [place], [id number], [place]. tel:[phone] OFFICE/OUTPA TIENT VISIT, EST [facility], [address] [place], [place], [id number] , [place] tel:[phone] [facility] [place] Widespread pain (chief complaint) Chronic pain syndromePain in left shoulderOther bow maker machine tender (current) drug therapyUnilatera l primary osteoarthritis, right knee 4 Angy Eastman. [address] [facility], [place], [place], [id number], [place]. tel:[phone] Referring Provider: Rachid Schaeffer, [address] [place] [address] [place], [address] . tel:[phone] OFFICE/OUTPA TIENT VISIT, [facility], [address] [place] [address], [id number] , [place] [phone] [facility] [place] low back pain (chief complaint) Pain in left kneePain in right kneePain in thoracic spineOther intervertebral disc degeneration, lumbar regionLow back pain 8 Geovani Tiffanie. [address] [place] [address], [id number], [place]. tel:[phone] Referring Provider: Rachid Schaeffer, [address] [place] [address] [place], [address] . tel:[phone] OFFICE/OUTPA TIENT VISIT, [facility], [address] [place] [address], [id number] , [place] tel:[phone] [facility] [place] low back pain (chief complaint) Pain in left kneePain in right kneeSpondylosis w/o myelopathy or radiculopathy, lumbar regionLow back pain 8 Geovani Tiffanie. [address] [place] [address], [id number], [place]. tel:[phone] Referring Provider: Rachid Schaeffer, [address] [place] [address] [place], [address] . tel:[phone] OFFICE/OUTPA TIENT VISIT, [facility], [address] [place] [address], [id number] , [place] [phone] [facility] Michel[place] low back pain (chief complaint) Pain in left kneePain in right kneeSpondylosis w/o myelopathy or radiculopathy, lumbar regionOther intervertebral disc degeneration, lumbar regionLow back painPain in thoracic spine 8 Geovani Tiffanie. [address] [place] [address], [id number], [place]. tel:[phone] Referring Provider: Rachid Schaeffer, [address] [place], [place] [address], [address] . tel:[phone] OFFICE/OUTPA TIENT VISIT, EST [facility], [address] [place] [address], [id number] , [place] tel: [phone] [facility] [place] low back pain (chief complaint) Low back painOther intervertebral disc degeneration, lumbar regionPain in left kneePain in right kneeSpondylosis w/o myelopathy or radiculopathy, lumbar regionPain in left hand Fe- 8 Geovani Tiffanie. [address] [place] [address], [id number], [place]. tel:[phone] Referring Provider: Rachid Schaeffer, [address] [place] [address] [place], [address] . tel:[phone] [facility], [address] [place] [address], [id number] , [place] tel: [phone] [facility] [place] Spondylosis w/o myelopathy or radiculopathy, lumbar region 7 Laurence Ansari. [address] [place] [address], [id number], [place]. tel:[phone] Referring Provider: Rachid Schaeffer, [address] [place], [place] [address], [address] . tel:[phone] [facility], [address] [place] [address], [id number] , [place] tel: [phone] [facility] [place] Spondylosis w/o myelopathy or radiculopathy, lumbar region 7 Geovani Tiffanie. [address] [place] [address], [id number], [place]. tel:[phone] [facility], [address] [place] [address], [id number] , [place] tel: [phone] [facility] [place] Spondylosis w/o myelopathy or radiculopathy, lumbar region 7 Dang Coty. [address] [place] [address], [id number], [place]. tel:[phone] Referring Provider: Rachid Schaeffer, [address] [place] [address] [place], [address] . tel:[phone] [facility], [address] [place] [address], [id number] , [place] tel: [phone] [facility] [place] Spondylosis w/o myelopathy or radiculopathy, lumbar region 7 Geovani Tiffanie. [address] [place] [address], [id number], [place]. tel:[phone] [facility], [address] [place] [address], [id number] , [place] tel: [phone] [facility] [place] Spondylosis w/o myelopathy or radiculopathy, lumbar region 7 Geovani Tiffanie. [address] [place] [address], [id number], [place]. tel:[phone] [facility], [address] [place] [address], [id number] , [place] tel: [phone] [facility] [place] Spondylosis w/o myelopathy or radiculopathy, lumbar region 7 Dang Coty. [address] [place] [address], [id number], [place]. tel:[phone] Referring Provider: Rachid Schaeffer, [address] [place], [place] [address], [address] . tel:[phone] [facility], [address] [place] [address], [id number] , [place] tel:[phone] [facility] [place] Spondylosis w/o myelopathy or radiculopathy, lumbar region 7 Dang Coty. [address] [place] [address], [id number], [place]. tel:[phone] Referring Provider: Rachid Schaeffer, [address] [place] [address] [place], [address] . tel:[phone] OFFICE/OUTPA TIENT VISIT, NEW [facility], [address] [place], [place], [id number] , [place] tel:[phone] [facility] [place] low back pain (chief complaint) Low back painPain in right kneePain in left kneeOther intervertebral disc degeneration, lumbar regionSpondylosi s w/o myelopathy or radiculopathy, lumbar region 7 Geovani Tiffanie. [address] [place], [place], [id number], [place]. tel:[phone] Referring Provider: Rachid Schaeffer, [address] [place], [address] . tel:[phone] Family History Family Member Type Diagnosis Age At Onset Father Problem (finding) back problems Payers Payer name Insurance type Covered libertarian ID Мария puentes(s) Medicare MB [id number] Social History Type Description Quantity Date Captured Comments Alcohol Use Details Unknown Caffeine Use Details Unknown Tobacco Use Status No Information Smoking Status No Information Sex Female Chief Complaint And Reason For Visit No Information Reason For Referral Reason For Referral No Information Plan Of Treatment Date Type Action Status Goal Medication Recon ciliation. Due on due Goal Review Allergy List. Due on due Goal Zoster vaccine ( 1st). Due on due Goal Unhealthy drug u se screening. Due on due Goal Update Social Hi story. Due on due Goal Tobacco Use. Due on 024 due Goal Weight. Due on d ue Goal PHQ-9. Due on du e Goal Height. Due on d ue Goal Hepatitis C scre ening. Due on due Goal Hepatitis C scre ening. Due on due Goal Height. Due on d ue Goal Tobacco Use. Due on 024 due Goal Zoster vaccine ( 1st). Due on due Goal Weight. Due on d ue Goal Medication Recon ciliation. Due on due Goal PHQ-9. Due on du e Goal Review Allergy List. Due on due Goal Unhealthy drug u se screening. Due on due Goal Update Social Hi story. Due on due Goal Lifestyle education regardin g diet completed Referral Ordered: MRI LUMBAR SPINE W/O DYE Bilateral spine, lumbar ordered Referral Ordered: MRI THORACIC SPINE W/O DYE Bilateral spine, thoracic ordered Referral Ordered: [facility] (related to Pain in left hand) ordered Referral Ordered: [facility] (related to Pain in right hand) ordered Referral Referred To: [facility] [address] [place] [id number] Ordered: Referrals: [facility]. Location: [facility]. Evaluate and treat ordered Future Order: Lab Order COMPLIAN CE DRUG ANALYSIS, URINE, WITH MED REPORT ([id number]), Ordered on: Ordered History Of Present Illness Encounter Date Complaint [...] relief). All injections have been completed at [facility]. She states she finds more relief from injections for the R shoulder rather than the L shoulder. Notes the cortisone injections had caused an allergic reaction.Currently managed on Flexeril, Meloxicam, and Brush 5-325mg with varying degrees of benefit. She [...] depression.Patient is interested in pain management through [facility]. Willing to pursue BRIAN injections for the [...] fever and incontinence (urinary). low back pain (comments) Patient is here for a f/u. Has #185 Brush remaining - surplus. Medications are effective at [...] is here for a f/u. Has #112 Brush remaining - on track. Medications are effective [...] medication, rest and sitting. low back pain Severity level i s 9. Duration: chronic. The problem is worsening. It occurs persistently. Location of pain is middle back, lower back and BL Knees.The patient describes the pain as sharp. Symptoms are aggravated by bending, changing positions, descending stairs, sitting, standing, twisting, walking and movement. Symptoms are relieved by lying down and sitting. low back pain (comments) Patient [...] No other concerns today. low back pain (comments) Mindy nuñez s [...] lying down and sitting. low back pain Onset: gradual w ithout [...] therapyChiropractorMedications:Tylenol-no reliefNSAIDS-no reliefNerve(Gabapentin)-not triedTopicals-no reliefMuscle relaxant-not tried. Ramozo-okblrihs-zl relief, Medical records-[facility], Functional Status Date Functional Assessmen t No Information Instructions Date Instruction Additional Infor qing Lifestyle education regarding di et Related to Body mass index [BMI] 40.0-44.9, adult Assessments Type Assessment Date No Information Patient Care Teams Name Effective Dates (start - stop) Status Members No Information
--- OUTSIDE RECORDS SUMMARY | 2023-04-02 11:34 | XMS_ITS | Continuity of Care Document ---
Author Organization [facility] may[facility] Address [address] [facility] [place] [address] Phone Care Team Providers Care Samples And Repairs Preparer Name Role Phone Violette Ashley DNP Unavailable [...] Diagnoses Date Provider Providers Copied on Encounter [facility], [address] [place], [place], [id number] , [place] tel:[phone] [facility] No Information 4 Dion Oakes. [address], [address], [place], [place], [id number], [place]. tel:[phone] OFFICE/OUTPA TIENT VISIT, EST [facility], [address] [place], [place], [id number] , [place] tel:[phone] [facility] [place] Widespread pain (chief complaint) Chronic pain syndromePain in left shoulderOther local company intermodal truck driver (current) drug therapyUnilatera l primary osteoarthritis, right knee 4 Angy Eastman. [address], [place], [place], [id number], [place]. tel:[phone] Referring Provider: Rachid Schaeffer, [address] [place] [address] [place], [address] . tel:[phone] OFFICE/OUTPA TIENT VISIT, [facility], [address] [place] [address], [id number] , [place] [phone] [facility] [place] low back pain (chief complaint) Pain in left kneePain in right kneePain in thoracic spineOther intervertebral disc degeneration, lumbar regionLow back pain 8 Geovani Tiffanie. [address] [place] [address], [id number], [place]. tel:[phone] Referring Provider: Rachid Schaeffer, [address] [place] [address] [place], [address] . tel:[phone] OFFICE/OUTPA TIENT VISIT, [facility], [address] [place] [address], [id number] , [place] tel:[phone] [facility] Michela low back pain (chief complaint) Pain in left kneePain in right kneeSpondylosis w/o myelopathy or radiculopathy, lumbar regionLow back pain 8 Geovani Tiffanie. [address] [place] [address], [id number], [place]. tel:[phone] Referring Provider: Rachid Schaeffer, [address] [place] [address] [place], [address] . tel:[phone] OFFICE/OUTPA TIENT VISIT, [facility], [address] [place] [address], [id number] , [place] [phone] [facility] Michela low back pain (chief complaint) Pain in left kneePain in right kneeSpondylosis w/o myelopathy or radiculopathy, lumbar regionOther intervertebral disc degeneration, lumbar regionLow back painPain in thoracic spine 8 Geovani Tiffanie. [address] [place] [address], [id number], [place]. tel:[phone] Referring Provider: Rachid Schaeffer, [address] [place], [place] [address], [address] . tel:[phone] OFFICE/OUTPA TIENT VISIT, EST [facility], [address] [place] [address], [id number] , [place] tel: [phone] [facility] [place] low back pain (chief complaint) Low back painOther intervertebral disc degeneration, lumbar regionPain in left kneePain in right kneeSpondylosis w/o myelopathy or radiculopathy, lumbar regionPain in left hand Fe- 8 Geovani Tiffanie. [address] [place] [address], [id number], [place]. tel:[phone] Referring Provider: Rachid Schaeffer, [address] [place] [address] [place], [address] . tel:[phone] [facility], [address] [place] [address], [id number] , [place] tel: [phone] [facility] [place] Spondylosis w/o myelopathy or radiculopathy, lumbar region 7 Laurence Ansari. [address] [place] [address], [id number], [place]. tel:[phone] Referring Provider: Rachid Schaeffer, [address] [place], [place] [address], [address] . tel:[phone] [facility], [address] [place] [address], [id number] , [place] tel: [phone] [facility] [place] Spondylosis w/o myelopathy or radiculopathy, lumbar region 7 Geovani Tiffanie. [address] [place] [address], [id number], [place]. tel:[phone] [facility], [address] [place] [address], [id number] , [place] tel: [phone] [facility] [place] Spondylosis w/o myelopathy or radiculopathy, lumbar region 7 Dang Coty. [address] [place] [address], [id number], [place]. tel:[phone] Referring Provider: Rachid Schaeffer, [address] [place] [address] [place], [address] . tel:[phone] [facility], [address] [place] [address], [id number] , [place] tel: [phone] [facility] [place] Spondylosis w/o myelopathy or radiculopathy, lumbar region 7 Geovani Tiffanie. [address] [place] [address], [id number], [place]. tel:[phone] [facility], [address] [place] [address], [id number] , [place] tel: [phone] [facility] [place] Spondylosis w/o myelopathy or radiculopathy, lumbar region 7 Geovani Tiffanie. [address] [place] [address], [id number], [place]. tel:[phone] [facility], [address] [place] [address], [id number] , [place] tel: [phone] [facility] [place] Spondylosis w/o myelopathy or radiculopathy, lumbar region 7 Dang Coty. [address] [place] [address], [id number], [place]. tel:[phone] Referring Provider: Rachid Schaeffer, [address] [place], [place] [address], [address] . tel:[phone] [facility], [address] [place] [address], [id number] , [place] tel:[phone] [facility] [place] Spondylosis w/o myelopathy or radiculopathy, lumbar region 7 Dang Coty. [address] [place] [address], [id number], [place]. tel:[phone] Referring Provider: Rachid Schaeffer, [address] [place] [address] [place], [address] . tel:[phone] OFFICE/OUTPA TIENT VISIT, NEW [facility], [address] [place], [place], [id number] , [place] tel:[phone] [facility] [place] low back pain (chief complaint) Low back painPain in right kneePain in left kneeOther intervertebral disc degeneration, lumbar regionSpondylosi s w/o myelopathy or radiculopathy, lumbar region 7 Geovani Tiffanie. [address] [place], [place], [id number], [place]. tel:[phone] Referring Provider: Rachid Schaeffer, [address] [facility] [place], [address] . tel:[phone] Family History Family Member Type Diagnosis Age At Onset Father Problem (finding) back problems Payers Payer name Insurance type Covered green party ID Мария puentes(s) Medicare MB [id number] Social History Type Description Quantity Date Captured Comments Alcohol Use Details Unknown Caffeine Use Details Unknown Tobacco Use Status No Information Smoking Status No Information Sex Female Chief Complaint And Reason For Visit No Information Reason For Referral Reason For Referral No Information Plan Of Treatment Date Type Action Status Goal Hepatitis C scre ening. Due on due Goal Height. Due on d ue Goal PHQ-9. Due on du e Goal Weight. Due on d ue Goal Tobacco Use. Due on 024 due Goal Update Social Hi story. Due on due Goal Unhealthy drug u se screening. Due on due Goal Zoster vaccine ( ). Due on due Goal Medication Recon ciliation. Due on due Goal Review Allergy List. Due on due Goal Update Social Hi story. Due on due Goal Unhealthy drug u se screening. Due on due Goal Review Allergy List. Due on due Goal PHQ-9. Due on du e Goal Medication Recon ciliation. Due on due Goal Weight. Due on d ue Goal Zoster vaccine ( 1st). Due on due Goal Tobacco Use. Due on 024 due Goal Height. Due on d ue Goal Hepatitis C scre ening. Due on due Goal Lifestyle education regardin g diet completed Referral Ordered: MRI LUMBAR SPINE W/O DYE Bilateral spine, lumbar ordered Referral Ordered: MRI THORACIC SPINE W/O DYE Bilateral spine, thoracic ordered Referral Ordered: [facility] (related to Pain in right hand) ordered Referral Ordered: [facility] (related to Pain in left hand) ordered Referral Referred To: [facility] [address] [place] [phone] Ordered: Referrals: [facility]. Location: [facility]. Evaluate and treat ordered Future Order: Lab Order COMPLIAN CE DRUG ANALYSIS, URINE, WITH MED REPORT ([id number]), Ordered on: Ordered History Of Present Illness Encounter Date Complaint History Of Prese nt Illness Widespread pain Severity level i s 8. Duration: ongoing. Location of the pain is left shoulder and right knee. It occurs persistently. The problem is worsening. Symptom is aggravated by bending, walking upstairs, walking downstairs, running, sitting, standing, walking, supine, prolonged positioning, housework and movement. Pertinent negatives include diarrhea, fatigue, fever and incontinence (urinary). Comments: Griselda is a 78 y/o female [...] relief). All injections have been completed at [facility]. She states she finds more relief from injections for the R shoulder rather than the L shoulder. Notes the cortisone injections had caused an allergic reaction.Currently managed on Flexeril, Meloxicam, and [place] 5-325mg with varying degrees of benefit. She [...] depression.Patient is interested in pain management through [facility]. Willing to pursue BRIAN injections for the R knee as previous cortisone injections caused an allergic reaction (heart palpitations and flushing of the face). Understands there's limited options for the L shoulder pain as most procedures involves having cortisone injected. No other concerns today. low back pain (comments) Patient is here for a f/u. Has #185 [place] remaining - surplus. Medications are effective at [...] is here for a f/u. Has #112 [place] remaining - on track. Medications are effective [...] therapyChiropractorMedications:Tylenol-no reliefNSAIDS-no reliefNerve(Gabapentin)-not triedTopicals-no reliefMuscle relaxant-not tried. Rsszsr-otlzmmpd-kw relief, Medical records-[facility], low back pain Onset: gradual w ithout injury. Severity level is 8. Duration: chronic. The problem is fluctuating. It occurs persistently. Location of pain is lower back.The patient describes the pain as an ache. Symptoms are aggravated by ascending stairs, descending stairs, standing, twisting and walking. Symptoms are relieved by lying down and sitting. Functional Status Date Functional Assessmen t No Information Instructions Date Instruction Additional Infor qing Lifestyle education regarding di et Related to Body mass index [BMI] 40.0-44.9, adult Assessments Type Assessment Date No Information Patient Care Teams Name Effective Dates (start - stop) Status Members No Information
--- OUTSIDE RECORDS SUMMARY | 2024-11-29 09:31 | XMS_ITS | Encounter Summary ---
Author Organization [place] Address Formerly [facility] [place] [address] Care Team Providers Care Director Funeral Name Role Phone Hector Goode MD Unavailable John Cancino MD Unavailable [phone] Carl Light MD Unavailable Unavailable Hector Goode MD Unavailable Rivas Delcid MD Unavailable Gavi Cloud MD Primary Care Provider [phone] Gavi Cloud MD Unavailable [phone] Reason for Referral * CV Testing (Routine) - Closed Specialty Diagnoses / Procedures Referred By Contac t Referred To Contact Cardiology Diagnoses Dilated cardiomyopathy (H) Hyperlipidemia LDL goal <100 Procedures Echocardiogram Complete ZZHC TTE W/DOPPLER, COMPLETE ZZHC ECHO COMPLETE W DOPPLER W CONTRAST ZZHC ECHO COMPLETE W DOPPLER W/O CONTRAST ZZHC IV PUSH SINGLE, INITIAL SUBSTANCE ZZHC US GUIDE FOR PERICARDIOCENTESIS ZZHC ECHO MYOCARD BX ZZC INJECTION, PERFLUTREN LIPID MICROSPHERES, PER ML ZZHC STATISTIC IV PUSH SINGLE INITIAL SUBSTANCE NH ECHO MYOCARD BX NH INJECTION, PERFLUTREN LIPID MICROSPHERES, PER ML NH TTE W/DOPPLER, COMPLETE NH IV PUSH SINGLE, INITIAL SUBSTANCE NH TTE W/DOPPLER, COMPLETE NH TTE W/DOPPLER, COMPLETE HC US GUIDE FOR PERICARDIOCENTESIS HC ECHO MYOCARD BX HC IV PUSH SINGLE, INITIAL SUBSTANCE HC STATISTIC IV PUSH SINGLE INITIAL SUBSTANCE HC ECHO COMPLETE W DOPPLER W CONTRAST HC ECHO COMPLETE W DOPPLER W/O CONTRAST Carl Light MD [id number] [address] [facility] [address] [facility] [address] [place] [address] Phone: tel: fax: Referral ID Status Reason Start Date Expiration Date Visits Re quested Visits Authorized [id number] Closed 04/16/2024 04/16/2025 1 1 Reason for Visit * CV Testing (Routine) - Closed Specialty Diagnoses / Procedures Referred By Contac t Referred To Contact Cardiology Diagnoses Dilated cardiomyopathy (H) Hyperlipidemia LDL goal <100 Procedures Echocardiogram Complete ZZHC TTE W/DOPPLER, COMPLETE ZZHC ECHO COMPLETE W DOPPLER W CONTRAST ZZHC ECHO COMPLETE W DOPPLER W/O CONTRAST ZZHC IV PUSH SINGLE, INITIAL SUBSTANCE ZZHC US GUIDE FOR PERICARDIOCENTESIS ZZHC ECHO MYOCARD BX ZZC INJECTION, PERFLUTREN LIPID MICROSPHERES, PER ML ZZHC STATISTIC IV PUSH SINGLE INITIAL SUBSTANCE NH ECHO MYOCARD BX NH INJECTION, PERFLUTREN LIPID MICROSPHERES, PER ML NH TTE W/DOPPLER, COMPLETE NH IV PUSH SINGLE, INITIAL SUBSTANCE NH TTE W/DOPPLER, COMPLETE NH TTE W/DOPPLER, COMPLETE HC US GUIDE FOR PERICARDIOCENTESIS HC ECHO MYOCARD BX HC IV PUSH SINGLE, INITIAL SUBSTANCE HC STATISTIC IV PUSH SINGLE INITIAL SUBSTANCE HC ECHO COMPLETE W DOPPLER W CONTRAST HC ECHO COMPLETE W DOPPLER W/O CONTRAST Carl Light MD [address] [id number] [address] [address] Phone: tel: fax: Referral ID Status Reason Start Date Expiration Date Visits Re quested Visits Authorized [id number] Closed 04/16/2024 04/16/2025 1 1 Encounter Details Date Type Department Care Team (Latest Contact Info) Description 11/29/2024 9:31 AM CDT - 11/29/2024 11:59 [facility] [address] 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 betaxolol (BETOPTIC) 0.5 % ophthalmic solution Place 1 drop into the right eye 2 times daily. 01/02/2023 dorzolamide (TRUSOPT) 2 % ophthalmic solution INSTILL 1 DROP INTO RIGHT EYE TWICE A DAY 11/14/2023 dorzolamide-timolol (COSOPT) 2-0.5 % ophthalmic solution Place 1 drop into the right eye 2 times daily. 12/26/2022 imatinib (GLEEVEC) 400 MG tablet Take 400 mg by mouth daily mometasone (ASMANEX TWISTHALER) 220 MCG/ACT inhaler Inhale 1 puff into the lungs every evening. potassium chloride prabhu ER (KLOR-CON M10) 10 MEQ CR tabletIndications:D ilated cardiomyopathy (H) Take 1 tablet (10 mEq) by mouth daily. 90 tablet 3 04/16/2024 sertraline (ZOLOFT) 50 MG tabletIndications:F acioscapulohumeral muscular dystrophy (H) Take 1.5 tablets (75 mg) by mouth daily. 135 tablet 11/09/2024 tafluprost (ZIOPTAN) 0.0015 % SOLN ophthalmic solution Place 1 drop into the right eye at bedtime 04/30/2023 tocilizumab (ACTEMRA) 80 MG/4ML Inject into the vein every 28 days. Vitamin D3 (CHOLECALCIFEROL) 25 mcg (1000 units) tablet Take 1 tablet by mouth daily. carvedilol (COREG) 12.5 MG tabletIndications:I schemic cardiomyopathy Take 1 tablet (12.5 mg) by mouth 2 times daily (with meals). 180 tablet 3 04/16/2024 furosemide (LASIX) 20 MG tabletIndications:D ilated cardiomyopathy (H),Primary cardiomyopathy (H) Take 1 tablet (20 mg) by mouth daily. Plus 1 additional pill prn edema/shortness of breath. 110 tablet 3 04/16/2024 irbesartan (AVAPRO) 75 MG tabletIndications:P rimary cardiomyopathy (H) Take 1 tablet (75 mg) by mouth daily. 90 tablet 3 04/16/2024 5 rosuvastatin (CRESTOR) 5 MG tabletIndications:H yperlipidemia LDL goal <100 Take 1 tablet (5 mg) by mouth daily. 90 tablet 3 04/16/2024 5 spironolactone (ALDACTONE) 25 MG tabletIndications:I schemic cardiomyopathy Take 1 tablet (25 mg) by mouth every morning. 90 tablet 3 04/16/2024 5 documented as of this encounter Plan of Treatment Scheduled Procedures Name Priority Associated Diagnoses Date/Ti me ENDOSCOPIC RETROGRADE CHOLANGIOPANCREATOGRAPHY, COMPLEX Cholecystitis Choledocholithiasis with acute cholecystitis documented as of this encounter Procedures Procedure Name Priority Date/Time Associated Diagnosis Comments ECHO COMPLETE Routine 11/29/2024 10:27 AM CDT Dilated cardiomyopathy (H) Hyperlipidemia LDL goal <100 documented in this encounter Results * ECHO COMPLETE (11/29/2024 10:27 AM CDT) Pathologist [facility] Biplane LVEF 43% CARDIOL OGY RESULTS Anatomical Region Laterality Modality Echocardiography 11/29/2024 9:41 AM CDT Narrative 11/29/2024 11:25 AM CDT [id number]^NADEGE^CARL^[facility] Echocardiography Laboratory [address] [place] [address] Name: GRISELDA LAI : 1945 Study Date: 11/29/2024 09:41 AM Age: 79 yrs Gender: Female Patient Location: [facility] Reason For Study: Dilated cardiomyopathy (H), Hyperlipidemia LDL goal <100 Ordering Physician: CARL LIGHT Referring Physician: CARL LIGHT Performed By: Rosalind Emmanuel RDCS BSA: 2.1 m2 Height: 64 in Weight: 233 lb HR: 59 BP: 145/77 mmHg Procedure Echocardiogram with two-dimensional, color and spectral Doppler. Technically difficult study. Interpretation Summary Normal left ventricular size with mildly decreased systolic function. The left ventricular ejection fraction is 43%. Mild global hypokinesis with septal motion consistent with patient's left bundle branch block. Grade 1 left ventricular diastolic function. Normal right ventricular size and systolic function. No valve disease. Compared to prior study, there is no significant change. Left Ventricle The left ventricle is normal in size. There is concentric remodeling present. Mildly decreased left ventricular systolic function. Biplane LVEF is 43%. Grade I or early diastolic dysfunction. There is mild global hypokinesia of the left ventricle. Septal motion is consistent with conduction abnormality. Right Ventricle The right ventricle is normal in size and function. Atria The left atrium is mildly dilated. Right atrial size is normal. There is no atrial shunt seen. Mitral Valve The mitral valve leaflets appear normal. There is no evidence of stenosis, fluttering, or prolapse. There is trace mitral regurgitation. There is no mitral valve stenosis. The mean mitral valve gradient is 1.4 mmHg. Tricuspid Valve The tricuspid valve is not well visualized, but is grossly normal. There is trace tricuspid regurgitation. Right ventricular systolic pressure could not be approximated due to inadequate tricuspid regurgitation. Aortic Valve The aortic valve is not well visualized. No aortic regurgitation is present. No aortic stenosis is present. Pulmonic Valve The pulmonic valve is not well visualized. There is trace pulmonic valvular regurgitation. Normal pulmonic valve velocity. Vessels The aortic root is normal size. Normal size ascending aorta. Dilation of the inferior vena cava is present with normal respiratory variation in diameter. Pericardium There is no pericardial effusion. Rhythm Sinus rhythm was noted. MMode/2D Measurements & Calculations IVSd: 1.2 cm LVIDd: 5.5 cm LVIDs: 4.5 cm LVPWd: 0.96 cm IVC diam: 2.3 cm FS: 17.7 % LV mass(C)d: 236.0 grams LV mass(C)dI: 113.1 grams/m2 Ao root diam: 2.9 cm asc Aorta Diam: 3.3 cm Ao root diam index Ht(cm/m): 1.8 Ao root diam index BSA (cm/m2): 1.4 Asc Ao diam index BSA (cm/m2): 1.6 Asc Ao diam index Ht(cm/m): 2.0 EF Biplane: 43.0 % LA Volume (BP): 63.4 ml LA Volume Index (BP): 30.3 ml/m2 RV Base: 3.0 cm RWT: 0.35 TAPSE: 2.0 cm Doppler Measurements & Calculations MV E max zion: 54.5 cm/sec MV A max zion: 75.2 cm/sec MV E/A: 0.72 MV max P.0 mmHg MV mean P.4 mmHg MV V2 VTI: 25.8 cm MV dec time: 0.20 sec E/E' av.5 Lateral E/e': 10.3 Medial E/e': 12.7 RV S Zion: 10.4 cm/sec QLAB Heart Model EDV ()_phl: 171.0 ml ESV ()_phl: 100.0 ml LV Length ED ()_phl: 91.0 mm LV Length ES ()_phl: 80.0 mm EF (HM)_phl: 42.0 % HR (HM)_phl: 56.0 BPM SV (HM)_phl: 71.0 ml ED Current (HM)_phl: 60.0 % ES Current (HM)_phl: 30.0 % ED Default (HM)_phl: 60.0 % ES Default (HM)_phl: 30.0 % Report approved by: Dr Jaciel Perez on 11/29/2024 11:25 AM Procedure Note Jaciel Perez MD - 11/29/2024 [id number]^NADEGE^CARL^[facility] Echocardiography Laboratory [address] [place], [place] [id number] Name: GRISELDA LAI : 1945 Study Date: 11/29/2024 09:41 AM Age: 79 yrs Gender: Female Patient Location: [facility] Reason For Study: Dilated cardiomyopathy (H), Hyperlipidemia LDL goal<100 Ordering Physician: CARL LIGHT Referring Physician: CARL LIGHT Performed By: Rosalind Emmanuel RDCS BSA: 2.1 m2 Height: 64 in Weight: 233 lb HR: 59 BP: 145/77 mmHg Procedure Echocardiogram with two-dimensional, color and spectral Doppler.Technically difficult study. Interpretation Summary Normal left ventricular size with mildly decreased systolic function. The left ventricular ejection fraction is 43%. Mild global hypokinesis with septal motion consistent with patient'sleft bundle branch block. Grade 1 left ventricular diastolic function. Normal right ventricular size and systolic function. No valve disease. Compared to prior study, there is no significant change. Left Ventricle The left ventricle is normal in size. There is concentric remodelingpresent. Mildly decreased left ventricular systolic function. Biplane LVEF is43%. Grade I or early diastolic dysfunction. There is mild global hypokinesiaof the left ventricle. Septal motion is consistent with conductionabnormality. Right Ventricle The right ventricle is normal in size and function. Atria The left atrium is mildly dilated. Right atrial size is normal. There isno atrial shunt seen. Mitral Valve The mitral valve leaflets appear normal. There is no evidence ofstenosis, fluttering, or prolapse. There is trace mitral regurgitation. There isno mitral valve stenosis. The mean mitral valve gradient is 1.4 mmHg. Tricuspid Valve The tricuspid valve is not well visualized, but is grossly normal. Thereis trace tricuspid regurgitation. Right ventricular systolic pressure couldnot be approximated due to inadequate tricuspid regurgitation. Aortic Valve The aortic valve is not well visualized. No aortic regurgitation ispresent. No aortic stenosis is present. Pulmonic Valve The pulmonic valve is not well visualized. There is trace pulmonicvalvular regurgitation. Normal pulmonic valve velocity. Vessels The aortic root is normal size. Normal size ascending aorta. Dilation ofthe inferior vena cava is present with normal respiratory variation indiameter. Pericardium There is no pericardial effusion. Rhythm Sinus rhythm was noted. MMode/2D Measurements & Calculations IVSd: 1.2 cm LVIDd: 5.5 cm LVIDs: 4.5 cm LVPWd: 0.96 cm IVC diam: 2.3 cm FS: 17.7 % LV mass(C)d: 236.0 grams LV mass(C)dI: 113.1 grams/m2 Ao root diam: 2.9 cm asc Aorta Diam: 3.3 cm Ao root diam index Ht(cm/m): 1.8 Ao root diam index BSA (cm/m2): 1.4 Asc Ao diam index BSA (cm/m2): 1.6 Asc Ao diam index Ht(cm/m): 2.0 EF Biplane: 43.0 % LA Volume (BP): 63.4 ml LA Volume Index (BP): 30.3 ml/m2 RV Base: 3.0 cm RWT: 0.35 TAPSE: 2.0 cm Doppler Measurements & Calculations MV E max zion: 54.5 cm/sec MV A max zion: 75.2 cm/sec MV E/A: 0.72 MV max P.0 mmHg MV mean P.4 mmHg MV V2 VTI: 25.8 cm MV dec time: 0.20 sec E/E' av.5 Lateral E/e': 10.3 Medial E/e': 12.7 RV S Zion: 10.4 cm/sec QLAB Heart Model EDV ()_phl: 171.0 ml ESV ()_phl: 100.0 ml LV Length ED ()_phl: 91.0 mm LV Length ES ()_phl: 80.0 mm EF ()_phl: 42.0 % HR ()_phl: 56.0 BPM SV ()_phl: 71.0 ml ED Current ()_phl: 60.0 % ES Current ()_phl: 30.0 % ED Default ()_phl: 60.0 % ES Default ()_phl: 30.0 % Report approved by: Dr Jaciel Perez on 11/29/2024 11:25 AM Carl Light MD CV ECHO ORDERABLES Edited Re sult - Final documented in this encounter Visit Diagnoses Diagnosis Dilated cardiomyopathy (H) Other primary cardiomyopathies Hyperlipidemia LDL goal <100 Other and unspecified hyperlipidemia documented in this encounter Additional Health Concerns Assessment Noted Time PHQ-9 Depression Total Score: 8 04/30/19 24 2:24 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 documented as of this encounter Care Teams Director Funeral Relationship Specialty Start Date End Date Gavi Cloud MD [address] [place] [address] PCP - General Family Medicine 08/17/24 Hector Goode MD [address] [place] [address] Neurology 05/01/17 John Cancino MD [address] [place] [address] Family Medicine - Sports Medicine 07/30/17 Carl Light MD [address] [place] [address] Assigned Heart and Vascular Provider 05/18/22 12/29/24 Hector Goode MD [address] [place] [address] Assigned Neuroscience Provider 07/01/23 12/29/24 Rivas Delcid MD [facility], [address] [place] [address] Assigned Surgical Provider 03/01/24 Gavi Cloud MD [address] [place] [address] Assigned PCP 10/30/24 01/05/25 documented as of this encounter
--- OUTSIDE RECORDS SUMMARY | 2024-11-29 11:15 | XMS_ITS | Encounter Summary ---
Author Organization [place] Address [facility] [facility] [place] [address] Care Team Providers Care Balling Machine Operator Name Role Phone Hector Goode MD Unavailable John Cancino MD Unavailable [phone] Carl Farah MD Unavailable Unavailable Hector Goode MD Unavailable Rivas Delcid MD Unavailable Gavi Cloud MD Primary Care Provider [phone] Gavi Cloud MD Unavailable [phone] Encounter Details Date Type Department Care Team (Late st Contact Info) Description 11/29/2024 11:15 AM CDT [facility] Heart [address] [address] Dilated cardiomyopathy (H); Hyperlipidemia LDL goal <100 Social History Tobacco Use Types Packs/Day Years [...] on file 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 Gender Identity Not on file Sexual Orientation Not on file documented as of this encounter Plan of Treatment Scheduled Procedures Name Priority Associated Diagnoses Date/Ti me ENDOSCOPIC RETROGRADE CHOLANGIOPANCREATOGRAPHY, COMPLEX Cholecystitis Choledocholithiasis with acute cholecystitis documented as of this encounter Procedures Procedure Name Priority Date/Time Associated Diagnosis Comments LIPID PROFILE Routine 11/29/2024 10:31 AM CDT Dilated cardiomyopathy (H) Hyperlipidemia LDL goal <100 BASIC METABOLIC PANEL Routine 11/29/2024 10:31 AM CDT Dilated cardiomyopathy (H) Hyperlipidemia LDL goal <100 documented in this encounter Results * (ABNORMAL) Basic metabolic panel (11/29/2024 10:31 AM CDT) Sodium 144 135 - 145 mmol/L 11/29/2024 11:58 AM CDT LABORATORY Potassium 3.9 3.4 - 5.3 mmol/L 11/29/2024 11:58 AM CDT LABORATORY Chloride 106 98 - 107 mmol/L 11/29/2024 11:58 AM CDT LABORATORY Carbon Dioxide (CO2) 24 22 - 29 mmol/L 11/29/2024 11:58 AM CDT LABORATORY Anion Gap 14 7 - 15 mmol/L 11/29/2024 11:58 AM CDT LABORATORY Urea Nitrogen 15.9 8.0 - 23.0 mg/dL 11/29/2024 11:58 AM CDT LABORATORY Creatinine 0.97(H) 0.51 - 0.95 mg/dL 11/29/2024 11:58 AM CDT LABORATORY GFR Estimate 59(L) >60 mL/min/1.7 3m2 11/29/2024 11:58 AM CDT LABORATORY Comment:eGFR calculated usin g 2020 CKD-EPI equation. Calcium 9.5 8.8 - 10.4 mg/dL 11/29/2024 11:58 AM CDT LABORATORY Glucose 85 70 - 99 mg/dL 11/29/2024 11:58 AM CDT LABORATORY Blood STRUCTURE OF RIGHT HAND / Unknown Venipuncture / Unknown 11/29/2024 10:31 AM CDT 11/29/2024 10:31 AM CDT Carl Farah MD LAB - BLOOD ORDERABLES Final Result LABORATORY [facility] [address] Lab (1st floor, no room number) [place] [address], [facility] * Lipid Profile (11/29/2024 10:31 AM CDT) Cholesterol 157 <200 mg/dL 11/29/2024 2:36 PM CDT [facility] Triglycerides 113 <150 mg/dL 11/29/2024 2:36 PM CDT [facility] Direct Measure HDL 57 >=50 mg/dL 2024 2:36 PM CDT [facility] LDL Cholesterol Calculated 77 <100 mg/dL 11/29/2024 2:36 PM CDT [facility] Comment:LDL calculated using the Friedewald equation. Non HDL Cholesterol 100 <130 mg/dL 11/29/2024 2:36 PM CDT [facility] Patient Fasting > 8hrs? Yes 11/29/2024 2:36 PM CDT [facility] LABORATORY Blood STRUCTURE OF RIGHT HAND / Unknown Venipuncture / Unknown 11/29/2024 10:31 AM CDT 11/29/2024 10:31 AM CDT Narrative [facility] - 11/29/2024 2:36 PM CDT Cholesterol Desirable: < 200 mg/dL Borderline High: 200 - 239 mg/dL High: >= 240 mg/dL Triglycerides Normal: < 150 mg/dL Borderline High: 150 - 199 mg/dL High: 200-499 mg/dL Very High: >= 500 mg/dL Direct Measure HDL Female: >= 50 mg/dL Male: >= 40 mg/dL LDL Cholesterol Desirable: < 100 mg/dL Above Desirable: 100 - 129 mg/dL Borderline High: 130 - 159 mg/dL High: 160 - 189 mg/dL Very High: >= 190 mg/dL Non HDL Cholesterol Desirable: < 130 mg/dL Above Desirable: 130 - 159 mg/dL Borderline High: 160 - 189 mg/dL High: 190 - 219 mg/dL Very High: >= 220 mg/dL us Carl Farah MD LAB - BLOOD ORDERABLES Final Result [facility] [place] [facility] [address] [facility] [facility] [address], [address] [place] [address], 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 documented as of this encounter Care Teams Balling Machine Operator Relationship Specialty Start Date End Date Gavi Cloud MD [address] [facility] [address] [place] [address] PCP - General Family Medicine 08/17/24 Hector Goode MD [address] [address] Neurology 05/01/17 John Cancino MD [address] [address] Family Medicine - Sports Medicine 07/30/17 Carl Farah MD [address] [address] Assigned Heart and Vascular Provider 05/18/22 12/29/24 Hector Goode MD [address] [address] Assigned Neuroscience Provider 07/01/23 12/29/24 Rivas Delcid MD [address] [facility], [address] [place] [address] Assigned Surgical Provider 03/01/24 Gavi Cloud MD [address] [address] Assigned PCP 10/30/24 01/05/25 documented as of this encounter
--- OUTSIDE RECORDS SUMMARY | 2024-12-08 12:15 | XMS_ITS | Encounter Summary ---
Author Organization [place] Address [facility] [place] [address] Care Team Providers Care Human Resources Psychologist Name Role Phone Hector Goode MD Unavailable John Cancino MD Unavailable [phone] Carl Farah MD Unavailable Unavailable Hector Goode MD Unavailable Rivas Delcid MD Unavailable Gavi Cloud MD Primary Care Provider [phone] Gavi Cloud MD Unavailable [phone] Reason for Referral * CV Testing (Routine) - Pending Review Specialty Diagnoses / Procedures Referred By Contac t Referred To Contact Diagnoses Dilated cardiomyopathy (H) Procedures Echocardiogram Complete [facility] TTE W/DOPPLER, COMPLETE [facility] ECHO COMPLETE W DOPPLER W CONTRAST [facility] ECHO COMPLETE W DOPPLER W/O CONTRAST [facility] IV PUSH SINGLE, INITIAL SUBSTANCE ZZ[facility] US GUIDE FOR PERICARDIOCENTESIS [facility] ECHO MYOCARD BX ZZC INJECTION, PERFLUTREN LIPID MICROSPHERES, PER ML [facility] STATISTIC IV PUSH SINGLE INITIAL SUBSTANCE ND ECHO MYOCARD BX ND INJECTION, PERFLUTREN LIPID MICROSPHERES, PER ML ND TTE W/DOPPLER, COMPLETE ND IV PUSH SINGLE, INITIAL SUBSTANCE ND TTE W/DOPPLER, COMPLETE ND TTE W/DOPPLER, COMPLETE HC US GUIDE FOR PERICARDIOCENTESIS HC ECHO MYOCARD BX HC IV PUSH SINGLE, INITIAL SUBSTANCE HC STATISTIC IV PUSH SINGLE INITIAL SUBSTANCE HC ECHO COMPLETE W DOPPLER W CONTRAST HC ECHO COMPLETE W DOPPLER W/O CONTRAST Blue Mensah MD Referral ID Status Reason Start Date Expiration Date V isits Requested Visits Authorized [id number] Pending Review 12/08/2024 12/08/2025 1 1 * Consultation (Routine: Next available opening) - Pending Review Specialty Diagnoses / Procedures Referred By Contac t Referred To Contact Cardiovascular Disease Diagnoses Dilated cardiomyopathy (H) Blue Mensah MD Referral ID Status Reason Start Date Expiration Date V isits Requested Visits Authorized [id number] Pending Review 12/08/2024 12/08/2025 1 1 Question Answer Preferred Location: [facility] Follow-up with: ALBERT Patient Scheduling Instructions: [facility] will call you to coordinate your care as prescribed by your provider. If you have concerns about scheduling, please call [phone]. Comments [facility] will call you to coordinate your care as prescribed by your provider. If you have concerns about scheduling, please call [phone]. Reason for Visit * Reason Comments Follow Up Visit: 6 month f/up for full evalution, Dilated cardiomyopathy; Hyperlipidemia * Consultation (Routine: Next available opening) - Pending Review Specialty Diagnoses / Procedures Referred By Contac t Referred To Contact Cardiovascular Disease Diagnoses Dilated cardiomyopathy (H) Hyperlipidemia LDL goal <100 Carl Farah MD [address] [facility] [id number] [place] [address] Referral ID Status Reason Start Date Expiration Date V isits Requested Visits Authorized [id number] Pending Review 04/16/2024 04/16/2025 1 1 Encounter Details Date Type Department Care Team (Late st Contact Info) Description 12/08/2024 12:15 PM CDT Office Visit [facility] [id number] [place] [address] [address] [place] [address] Blue Mensah MD Dilated cardiomyopathy (H); Hyperlipidemia LDL goal <100; Ischemic cardiomyopathy; Primary cardiomyopathy Social History Tobacco Use Types Packs/Day Years Used Date Smoking Tobacco: Never Passive Smoke Exposure: Never Smokeless Tobacco: Never Alcohol Use Standard Drinks/Week Comments No 0 (1 standard drink = 0.6 oz pur e alcohol) PHQ-2 Answer Date Recorded PHQ-2 Score 0 12/08/2024 Adolescent Education Answer Date Record ed Getting [...] in an abandoned building, in an overnight usp, or couch-surfing.) Yes 02/02/2024 Are you worried [...] on file Legal Sex Female 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 Gender Identity Not on file Sexual Orientation Not on file documented as of this encounter Last Filed Vital Signs Vital Sign Reading Time Taken Comments Blood Pressure 115/67 12/08/2024 12:12 PM CDT Pulse 71 12/08/2024 12:12 PM CDT Temperature - - Respiratory Rate - - Oxygen Saturation 91% 12/08/2024 12:12 PM CDT Inhaled Oxygen Concentration - - Weight 103.9 kg (229 lb) 12/08/2024 12:12 PM CDT Height 162.6 cm (5' 4) 12/08/2024 12:12 PM CDT Body Mass Index 39.31 12/08/2024 12:12 PM CDT documented in this encounter Progress Notes * Blue Mensah MD - 12/08/2024 12:15 PM CDT CARDIOLOGY VISIT REASON FOR VISIT: Idiopathic cardiomyopathy SUBJECTIVE: 79-year-old female seen for idiopathic cardiomyopathy. She has giant cell arteritis, dyslipidemia, sleep apnea, TIA, polymyalgia rheumatica, FSH muscular dystrophy. Historically EF has been 40 to 45%. Echo November 2024 showed EF 43%, global hypokinesis, no valve disease. Overall she is stable. Her main complaint is some worsening fatigue. She denies any new fluid retention or edema, no chest pain or palpitations. She walks with a walker and will go short distances mostly in her house. Sometimes she will go to the store, but will use an electric scooter. MEDICATIONS: Current Outpatient Medications Medication Sig Dispense Refill aspirin 81 MG EC tablet Take 81 mg by mouth daily. betaxolol (BETOPTIC) 0.5 % ophthalmic solution Place 1 drop into the right eye 2 times daily. carvedilol (COREG) 12.5 MG tablet Take 1 tablet (12.5 mg) by mouth 2 times daily (with meals). 180 tablet 3 dorzolamide (TRUSOPT) 2 % ophthalmic solution INSTILL 1 DROP INTO RIGHT EYE TWICE A DAY dorzolamide-timolol (COSOPT) 2-0.5 % ophthalmic solution Place 1 drop into the right eye 2 times daily. furosemide (LASIX) 20 MG tablet Take 1 tablet (20 mg) by mouth daily. Plus 1 additional pill prn edema/shortness of breath. 110 tablet 3 imatinib (GLEEVEC) 400 MG tablet Take 400 mg by mouth daily irbesartan (AVAPRO) 75 MG tablet Take 1 tablet (75 mg) by mouth daily. 90 tablet 3 mometasone (ASMANEX TWISTHALER) 220 MCG/ACT inhaler Inhale 1 puff into the lungs every evening. potassium chloride prabhu ER (KLOR-CON M10) 10 MEQ CR tablet Take 1 tablet (10 mEq) by mouth daily. 90 tablet 3 rosuvastatin (CRESTOR) 5 MG tablet Take 1 tablet (5 mg) by mouth daily. 90 tablet 3 sertraline (ZOLOFT) 50 MG tablet Take 1.5 tablets (75 mg) by mouth daily. 135 tablet 0 spironolactone (ALDACTONE) 25 MG tablet Take 1 tablet (25 mg) by mouth every morning. 90 tablet 3 tafluprost (ZIOPTAN) 0.0015 % SOLN ophthalmic solution Place 1 drop into the right eye at bedtime tocilizumab (ACTEMRA) 80 MG/4ML Inject into the vein every 28 days. Vitamin D3 (CHOLECALCIFEROL) 25 mcg (1000 units) tablet Take 1 tablet by mouth daily. No current facility-administered medications for this visit. ALLERGIES: Allergies Allergen Reactions Cortisone Cortisone shots Sulfa Antibiotics REVIEW OF SYSTEMS: Constitutional: No weight loss, fever, chills HEENT: Eyes: No visual loss, blurred vision, double vision or yellow sclerae. No hearing loss, sneezing, congestion, runny nose or sore throat. Skin: No rash or itching. Cardiovascular: per HPI Respiratory: per HPI GI: No anorexia, nausea, vomiting or diarrhea. No abdominal pain or blood. : No dysurea, hematuria Neurologic: No headache, paralysis, ataxia, numbness or tingling in the extremities. No change in bowel or bladder control. Musculoskeletal: No muscle pain Hematologic: No bleeding or bruising. Lymphatics: No enlarged nodes. No history of splenectomy. Endocrine: No reports of sweating, cold or heat intolerance. No polyuria or polydipsia. Allergies: No history of asthma, hives, eczema or rhinitis. PHYSICAL EXAM: BP 115/67 Pulse 71 Ht 1.626 m (5' 4) Wt 103.9 kg (229 lb) SpO2 (!) 91% BMI 39.31 kg/m?? Constitutional: awake, alert, no distress Eyes: PERRL, sclera nonicteric ENT: trachea midline Respiratory: lungs clear Cardiovascular: RRR, no murmurs GI: nondistended, nontender, bowel sounds present Lymph/Hematologic: no lymphadenopathy Skin: dry, no rash Musculoskeletal: good muscle tone, strength 5/5 in upper and lower extremities Neurologic: no focal deficits Neuropsychiatric: appropriate affact DATA: Lab: November 2024: Potassium 3.9, creatinine 0.9 Recent Labs Lab Test 11/29/24 1031 09/09/23 0000 10/15/22 0953 CHOL 157 172 146 HDL 57 82 56 LDL 77 -- 72 TRIG 113 77 88 CHOLHDLRATIO -- 2 -- ASSESSMENT: 79-year-old female seen for nonischemic cardiomyopathy. Her cardiac issues are stable. Ejection fraction is 43% which is within her historical range. She has no evidence of fluid retention. Blood pressure and lipids are well-controlled. Medications will be kept the same. Doubtful there is any significant cardiac component to her fatigue. She received a letter about a clinical trial through the [facility] for GLP-1 inhibitors. This could be a good option for her, if she received the trial drug and was able to tolerate it and lose someweight, this potentially could help her fatigue. RECOMMENDATIONS: 1. Nonischemic cardiomyopathy, NYHA class I - Continue current medications Follow-up in 1 year with ALBERT with echo. Blue Mensah MD Cardiology - [facility] Heart Pager: [phone] Text Page December 08, 2024 documented in this encounter Plan of Treatment Scheduled Orders Name Type Priority Associated Diagnoses Orde r Schedule Echocardiogram Complete Echocardiography Routine Dilated cardiomyopathy (H) Expected: 12/08/2025 (Approximate), Expires: 03/10/2026 Scheduled Procedures Name Priority Associated Diagnoses Date/Ti me ENDOSCOPIC RETROGRADE CHOLANGIOPANCREATOGRAPHY, COMPLEX Cholecystitis Choledocholithiasis with acute cholecystitis Scheduled Referrals Name Type Priority Associated Diagnoses Orde r Schedule Follow-Up with Cardiology ALBERT Referral Routine: Next available opening Dilated cardiomyopathy (H) Expected: 12/08/2025 (Approximate), Expires: 12/08/2025 documented as of this encounter Visit Diagnoses Diagnosis Dilated cardiomyopathy (H) Other primary cardiomyopathies Hyperlipidemia LDL goal <100 Other and unspecified hyperlipidemia Ischemic cardiomyopathy Other specified forms of chronic ischemic heart disease Primary cardiomyopathy Other primary cardiomyopathies documented in this encounter Additional Health Concerns Assessment Noted Time PHQ-9 Depression Total Score: 8 04/30/19 24 2:24 PM VOICE PATHOLOGIST documented as of this encounter Care Teams Human Resources Psychologist Relationship Specialty Start Date End Date Gavi Cloud MD [address] [address] PCP - General Family Medicine 08/17/24 Hector Goode MD [address] [place] [id number] Neurology 05/01/17 John Cancino MD [address] [place] [id number] Family Medicine - Sports Medicine 07/30/17 Carl Farah MD [address] [place] [id number] Assigned Heart and Vascular Provider 05/18/22 12/29/24 Hector Goode MD [address] [place] [id number] Assigned Neuroscience Provider 07/01/23 12/29/24 Rivas Delcid MD [address] [facility], [address] [place] [address] Assigned Surgical Provider 03/01/24 Gavi Cloud MD [address] [place] [address] Assigned PCP 10/30/24 01/05/25 documented as of this encounter
--- OUTSIDE RECORDS SUMMARY | 2024-12-08 14:00 | XMS_ITS | Encounter Summary ---
Author Organization [place] Address [address] [place] [address] Care Team Providers Care Fruit Thinner Machine Operator Name Role Phone Hector Goode MD Unavailable John Cancino MD Unavailable Carl Farah MD Unavailable Unavailable Hector Goode MD Unavailable Rivas Delcid MD Unavailable Gavi Cloud MD Primary Care Provider Gavi Cloud MD Unavailable [phone] Reason for Visit * Reason Comments Wellness Visit AWV Breathing Problem SOB and fatigue, fee ling exhausted, dyspnea on exertion, started 1 month ago, her baseball coach did not think this was heart related Encounter Details Date Type Department Care Team (Late st Contact Info) Description 12/08/2024 2:00 PM CDT Office Visit [facility] [address] [address] Jasmin Maradiaga PA-C [address] [place] [address] Medicare annual wellness visit, subsequent (Primary Dx); Other fatigue; Shortness of breath; Facioscapulohumeral muscular dystrophy (H); PMR (polymyalgia rheumatica) Social History Tobacco Use Types Packs/Day Years [...] in an abandoned building, in an overnight group home, or couch-surfing.) Yes 02/02/2024 Are you worried [...] on file 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 Gender Identity Not on file Sexual Orientation Not on file documented as of this encounter Last Filed Vital Signs Vital Sign Reading Time Taken Comments Blood Pressure 118/72 12/08/2024 2:20 PM CDT Pulse 81 12/08/2024 2:20 PM CDT Temperature 36.6 C (97.8 F) 12/08/2024 2:20 PM CDT Respiratory Rate - - Oxygen Saturation 95% 12/08/2024 2:20 PM CDT Inhaled Oxygen Concentration - - Weight 103.9 kg (229 lb) 12/08/2024 2:20 PM CDT Height 161.3 cm (5' 3.5) 12/08/2024 2:20 PM CDT Body Mass Index 39.93 12/08/2024 2:20 PM CDT documented in this encounter Progress Notes * Jasmin Maradiaga PA-C - 12/08/2024 2:00 PM CDT Griselda Lai is a 79 year old female who presents for Medicare Annual Wellness Visit. Current providers caring for this patient include: Patient Care Team: Gavi Cloud MD as PCP - General (Family Medicine) Hector Goode MD as MD (Neurology) John Cancino MD as MD (Family [...] Stent Insertion; Surgeon: David Barba MD; Location: [facility] OR KNEE SURGERY R arthroscopic LAPAROSCOPIC CHOLECYSTECTOMY N/A 02/02/2024 Procedure: CHOLECYSTECTOMY, LAPAROSCOPIC; Surgeon: Rivas Delcid MD; Location: [facility] OR REMOVAL OF BREAST LESION benign, age [...] PM CDT CC: SOB, fatigue, needing new walking History: Shortness of breath, fatigue: For the [...] PMR: Goes to [facility] on [address] Does Actemra infusions every 28 days. This was helping, but now seems like it helping less. Facioscapulohumeral muscular dystrophy (H): Hasn't seen neurology in over 1 year. Didn't seem like there was any other options to help with hersymptoms. She is needing walker to use at home as previous welding broke on seat. PMH, MEDICATIONS, ALLERGIES, SOCIAL AND FAMILY HISTORY in [facility] and reviewed by me personally. ROS negative [...] symptoms. 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 *Scheduled for 12/29* Facioscapulohumeral muscular dystrophy (H): Recommended pt return to neurology as they were wanting her to return after 1 year from 06/2023 visits. follow up visit: As needed Jasmin Maradiaga PA-C [facility] documented in this encounter Nursing Notes * Estephania Loaiza CMA - 12/08/2024 2:00 PM CDT Chief Complaint Patient presents with Wellness Visit AWV Breathing Problem SOB and fatigue, feeling exhausted, dyspnea on exertion, started 1 month ago, her baseball coach did not think this was heart related Pre-visit Screening: Immunizations: not up to date - shingrix and tdap at pharmacy Colonoscopy: NA Mammogram: NA Asthma Action Test/Plan: NA PHQ9: NA GAD7: NA Questioned patient about current smoking habits Pt. has never smoked. Ok to leave detailed message on voice mail for today's visit only Yes, phone # [phone] documented in this encounter Plan of Treatment Scheduled Procedures Name Priority Associated Diagnoses Date/Ti me ENDOSCOPIC RETROGRADE CHOLANGIOPANCREATOGRAPHY, COMPLEX Cholecystitis Choledocholithiasis with acute cholecystitis documented as of this encounter Procedures Procedure Name Priority Date/Time Associated Diagnosis Comments TSH WITH FREE T4 REFLEX ([facility]) Routine 12/08/2024 3:46 PM CDT Other fatigue Shortness of breath VITAMIN B12 ([facility]) Routine 12/08/2024 3 :46 PM CDT Other fatigue Shortness of breath FERRITIN ([facility]) Routine 12/08/2024 3:46 PM CDT Other fatigue Shortness of breath SC COLLECTION VENOUS BLOOD VENIPUNCTURE Routine 12/08/2024 2:53 PM CDT Other fatigue Shortness of breath HEMOGRAM WITH PLATELETS (BFP) Routine 12/08/2024 Other fatigue Shortness of breath documented in this encounter Results * VITAMIN B12 ([facility]) (12/08/2024 3:46 PM CDT) Vitamin B12 385 200 - 1,100 pg/mL [facility] Comment: Please Note: Although the reference range for vitamin B12 is 200-1100 pg/mL, it has been reported that between 5 and 10% of patients with values between 200 and 400 pg/mL may experience neuropsychiatric and hematologic abnormalities due to occult B12 deficiency; less than 1% of patients with values above 400 pg/mL will have symptoms. Blood 12/08/2024 3:46 PM CDT 12/09/2024 4:46 AM CDT Narrative Resulting Agency Comment Performing Organization Information: [facility] [address] [place] [address] Serafin Tse Jasmin Garcia Hiren PA-C LAB - NON-BEAKER BLO OD LABS Final Result [facility] [address] [place], [place] [id number] [place] [address] * FERRITIN ([facility]) (12/08/2024 3:46 PM CDT) Pathologist [facility] Ferritin 77 16 - 288 ng/mL [facility] Blood 12/08/2024 3:46 PM CDT 12/09/2024 4:46 AM CDT Narrative Resulting Agency Comment Performing Organization Information: [facility] [address] [place] [address] Serafin Tse Jasmin Jainwellington JohnsonHiren PA-C LAB - NON-BEAKER BLO OD LABS Final Result Performing Organization Address [facility]/ZIP Co de Phone Number [facility] [address] [place] [address], [facility] [phone] * TSH WITH FREE T4 REFLEX ([facility]) (12/08/2024 3:46 PM CDT) Pathologist [facility] TSH 1.98 0.40 - 4.50 mIU/L [facility] Blood 12/08/2024 3:46 PM CDT 12/09/2024 4:46 AM CDT Narrative Resulting Agency Comment Performing Organization Information: [facility] [address] [facility] [place] [address] Serafin Tse Jasmin Garcia [place]oxbury PA-C LAB - NON-BEAKER BLO OD LABS Final Result Performing Organization Address City/[facility]/ZIP Co de Phone Number [facility] [address] [phone] * (ABNORMAL) Hemogram Platelet ([facility]FP) (12/08/2024) WBC 4.8 4.0 - 11 10*9/L [facility] RBC Count 3.48(A) 3.8 - 5.2 10*12/L [facility] Hemoglobin 11.9 11.7 - 15.7 g/dL [facility] Hematocrit 35.3 35.0 - 47.0 % [facility] MCV 101.3(A) 78 - 100 fL [facility] MCH 34.2(A) 26 - 33 pg [facility] MCHC 33.7 31 - 36 g/dL [facility] RDW 12.4 % [facility] Platelet Count 145(A) 150 - 375 10^9/L [facility] Blood 12/08/2024 Jasmin Maradiaga PA-C LAB - NON-BEAKER BLO OD LABS Final Result [facility] [address] [place] [address] [address] [place] [address] documented in this encounter Visit Diagnoses Diagnosis Medicare annual wellness visit, subsequent- Primary Routine general medical examination at a health care facility Other fatigue Shortness of breath 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 PMR (polymyalgia rheumatica) Polymyalgia rheumatica documented in this encounter Additional Health Concerns Assessment Noted Time PHQ-9 Depression Total Score: 8 04/30/19 24 2:24 PM 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 documented as of this encounter Care Teams Fruit Thinner Machine Operator Relationship Specialty Start Date End Date Gavi Cloud MD [address] [facility] [address] [place] [address] PCP - General Family Medicine 08/17/24 Hector Goode MD [address] [place] [id number] Neurology 05/01/17 John Cancino MD [address] [place] [address] Family Medicine - Sports Medicine 07/30/17 Carl Farah MD [address] [address] Assigned Heart and Vascular Provider 05/18/22 12/29/24 Hector Goode MD [address] [place] [address] Assigned Neuroscience Provider 07/01/23 12/29/24 Rivas Delcid MD [address] [facility], [address] [place] [address] Assigned Surgical Provider 03/01/24 Gavi Cloud MD [address] [place] [address] [place] [address] Assigned PCP 10/30/24 01/05/25 documented as of this encounter
--- OUTSIDE RECORDS SUMMARY | 2024-12-10 10:35 | XMS_ITS | Encounter Summary ---
Author Organization [place] Address [facility] access hospital0 [facility] [place] [address] Care Team Providers Care Lehr Stripper Name Role Phone Hector Goode MD Unavailable John Cancino MD Unavailable [phone] Carl Farah MD Unavailable Unavailable Hector Goode MD Unavailable Rivas Delcid MD Unavailable Gavi Cloud MD Primary Care Provider [phone] Gavi Cloud MD Unavailable [phone] Reason for Visit * Diagnostic Imaging Mammo (Routine) - Pending Review Specialty Diagnoses / Procedures Referred By Jeremiah t Referred To Contact Radiology. Diagnoses BI-RADS category 3 mammogram result Procedures MA Diagnostic Digital Left MA Diagnostic Left w/Kevin Gavi Cloud MD [address] [place] [address] [place] [address] Phone: tel: fax: Referral ID Status Reason Start Date Expiration Date V isits Requested Visits Authorized [id number] Pending Review 09/01/2024 09/01/2025 1 1 Encounter Details Date Type Department Care Team (Latest Contact Info) Description 12/10/2024 10:35 AM CDT - 12/10/2024 11:59 PM CDT Hospital Encounter [facility] [address] [facility], [address] [place] [id number] Gavi Cloud MD [address] [address] [place] [address] BI-RADS category 3 mammogram result Discharge Disposition: Home or Self Care Social [...] in an abandoned building, in an overnight fdc, or couch-surfing.) Yes 02/02/2024 Are you worried [...] on file 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 betaxolol (BETOPTIC) 0.5 % ophthalmic solution Place 1 drop into the right eye 2 times daily. 01/02/2023 carvedilol (COREG) 12.5 MG tabletIndications:I schemic cardiomyopathy Take 1 tablet (12.5 mg) by mouth 2 times daily (with meals). 180 tablet 3 12/09/2024 dorzolamide (TRUSOPT) 2 % ophthalmic solution INSTILL 1 DROP INTO RIGHT EYE TWICE A DAY 11/14/2023 dorzolamide-timolol (COSOPT) 2-0.5 % ophthalmic solution Place 1 drop into the right eye 2 times daily. 12/26/2022 furosemide (LASIX) 20 MG tabletIndications:D ilated cardiomyopathy (H),Primary cardiomyopathy (H) Take 1 tablet (20 mg) by mouth daily. Plus 1 additional pill prn edema/shortness of breath. 110 tablet 3 12/09/2024 imatinib (GLEEVEC) 400 MG tablet Take 400 mg by mouth daily irbesartan (AVAPRO) 75 MG tabletIndications:P rimary cardiomyopathy (H) Take 1 tablet (75 mg) by mouth daily. 90 tablet 3 12/09/2024 mometasone (ASMANEX TWISTHALER) 220 MCG/ACT inhaler Inhale 1 puff into the lungs every evening. potassium chloride prabhu ER (KLOR-CON M10) 10 MEQ CR tabletIndications:D ilated cardiomyopathy (H) Take 1 tablet (10 mEq) by mouth daily. 90 tablet 3 04/16/2024 rosuvastatin (CRESTOR) 5 MG tabletIndications:H yperlipidemia LDL goal <100 Take 1 tablet (5 mg) by mouth daily. 90 tablet 3 12/09/2024 sertraline (ZOLOFT) 50 MG tabletIndications:F acioscapulohumeral muscular dystrophy (H) Take 1.5 tablets (75 mg) by mouth daily. 135 tablet 11/09/2024 spironolactone (ALDACTONE) 25 MG tabletIndications:I schemic cardiomyopathy Take 1 tablet (25 mg) by mouth every morning. 90 tablet 3 12/09/2024 tafluprost (ZIOPTAN) 0.0015 % SOLN ophthalmic solution Place 1 drop into the right eye at bedtime 04/30/2023 tocilizumab (ACTEMRA) 80 MG/4ML Inject into the vein every 28 days. Vitamin D3 (CHOLECALCIFEROL) 25 mcg (1000 units) tablet Take 1 tablet by mouth daily. documented as of this encounter Plan of Treatment Scheduled Procedures Name Priority Associated Diagnoses Date/Ti me ENDOSCOPIC RETROGRADE CHOLANGIOPANCREATOGRAPHY, COMPLEX Cholecystitis Choledocholithiasis with acute cholecystitis documented as of this encounter Procedures Procedure Name Priority Date/Time Associated Diagnosis Comments MA DIAGNOSTIC DIGITAL LEFT Routine 12/10/2024 10:58 AM CDT BI-RADS category 3 mammogram result documented in this encounter Results * MA Diagnostic Digital Left (12/10/2024 10:58 AM CDT) Anatomical Region Laterality Modality Breast Left Mammography Impressions 12/10/2024 10:57 AM CDT IMPRESSION: BI-RADS CATEGORY: 2 - Benign. RECOMMENDED FOLLOW-UP: Routine yearly mammography beginning at age 40 or as discussed with your provider. The results and recommendation were communicated to the patient at the conclusion of today's appointment. JAZLYN AVALOS MD Narrative 12/10/2024 10:57 AM CDT DIAGNOSTIC MAMMOGRAM, LEFT, DIGITAL w/CAD - 12/10/2024 10:55 AM HISTORY: Short interval follow-up for left breast calcifications. COMPARISON: Prior mammograms in May and June 2024. BREAST DENSITY: There are scattered areas of fibroglandular density. FINDINGS: On today's examination, the previously noted subcentimeter calcifications in the left breast are consistent with benign rim calcifications. Procedure Note Jazlyn Avalos MD - 12/10/2024 DIAGNOSTIC MAMMOGRAM, LEFT, DIGITAL w/CAD - 12/10/2024 10:55 AM HISTORY: Short interval follow-up for left breast calcifications. COMPARISON: Prior mammograms in May and June 2024. BREAST DENSITY: There are scattered areas of fibroglandular density. FINDINGS: On today's examination, the previously noted subcentimeter calcifications in the left breast are consistent with benign rim calcifications. IMPRESSION: BI-RADS CATEGORY: 2 - Benign. RECOMMENDED FOLLOW-UP: Routine yearly mammography beginning at age 40 or as discussed with your provider. The results and recommendation were communicated to the patient at the conclusion of today's appointment. JAZLYN AVALOS MD us Gavi Cloud MD IMG MAMMOGRAPHY ORDERABLES F inal Result documented in this encounter Visit Diagnoses Diagnosis BI-RADS category 3 mammogram result documented in this encounter Additional Health Concerns Assessment Noted Time PHQ-9 Depression Total Score: 8 04/30/19 24 2:24 PM TRACTOR EXPERT documented as of this encounter Care Teams Lehr Stripper Relationship Specialty Start Date End Date Gavi Cloud MD [address] [facility] [address] [place] [address] PCP - General Family Medicine 08/17/24 Hector Goode MD [address] [place] [address] Neurology 05/01/17 John Cancino MD [address] [place] [address] Family Medicine - Sports Medicine 07/30/17 Carl Farah MD [address] [place] [address] Assigned Heart and Vascular Provider 05/18/22 12/29/24 Hector Goode MD [address] [place] [address] Assigned Neuroscience Provider 07/01/23 12/29/24 Rivas Delcid MD [address] [facility], [address] [place] [address] Assigned Surgical Provider 03/01/24 Gavi Cloud MD [address] [facility] [address] [place] [address] Assigned PCP 10/30/24 01/05/25 documented as of this encounter
--- OUTSIDE RECORDS SUMMARY | 2024-12-17 09:00 | XMS_ITS | Encounter Summary ---
Author Organization [place] Address [facility] 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 Will fax labs when resulted to Harvinder Diamond MD [phone]. * Alexa Saldana MA - 12/17/2024 9:00 AM CDT Faxed results today ea documented in this encounter Plan of Treatment Scheduled Procedures Name Priority Associated Diagnoses Date/Ti me ENDOSCOPIC RETROGRADE CHOLANGIOPANCREATOGRAPHY, COMPLEX Cholecystitis Choledocholithiasis with acute cholecystitis documented as of this encounter Procedures Procedure Name Priority Date/Time Associated Diagnosis Comments ESR WESTERGREN ([facility]) Routine 12/17/2024 10:10 AM CDT 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) Encounter for long-term (current) use of medications C-REACTIVE PROTEIN CRP ([facility]) Routine 12/17/2024 9:59 AM CDT 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) Encounter for long-term (current) use of medications MO COLLECTION VENOUS BLOOD VENIPUNCTURE Routine 12/17/2024 9:05 AM CDT 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) Encounter for long-term (current) use of medications HEMOGRAM PLATELET DIFF ([facility]) Routine 12/17/2024 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) Encounter for long-term (current) use of medications CREATININE (BFP) Routine 12/17/2024 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) Encounter for long-term (current) use of medications AST (BFP) Routine 12/17/2024 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) Encounter for long-term (current) use of medications ALT (BFP) Routine 12/17/2024 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) Encounter for long-term (current) use of medications ALBUMIN (BFP) Routine 12/17/2024 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) Encounter for long-term (current) use of medications documented in this encounter Results * ESR WESTERGREN ([facility]) (12/17/2024 10:10 AM CDT) Sed Rate 2 0 - 20 mm/hr [facility] Blood 12/17/2024 10:1 0 AM CDT Gavi Cloud MD LAB - NON-BEAKER BLOOD LABS Final Result [facility] [address] [address] * C-Reactive Protein CRP ([facility]) (12/17/2024 9:59 AM CDT) C-Reactive Protein <3.0 <8.0 mg/L [facility] Blood 12/17/2024 9:59 AM CDT 12/18/2024 7:37 AM CDT Narrative Resulting Agency Comment Performing Organization Information: CB [facility] [address] [place] [address] Serafin Tse Gavi Cloud MD LAB - NON-BEAKER BLOOD LABS Final Result Performing Organization Address City/[facility] [address]/ZIP Co de Phone Number [facility] [address] [phone] * ALT (BFP) (12/17/2024) ALT 15 0 - 32 U/L [facility] Blood 12/17/2024 Gavi Cloud MD LAB - NON-BEAKER BLOOD LABS Final Result [facility] [address] [place] [address] [place] [address], [facility] * AST ([facility]) (12/17/2024) AST 22 0 - 35 U/L [facility] Blood 12/17/2024 us Gavi Cloud MD LAB - NON-BEAKER BLOOD LABS Final Result Performing Organization Address [facility] [address] [facility] de Phone Number [facility] [address] * (ABNORMAL) Creatinine ([facility]) (12/17/2024) Creatinine 1.21 0.60 - 1.30 mg/dL [facility] GFR Estimate 45(A) >60 ml/min/1.73 m2 [facility] Blood 12/17/2024 us Gavi Cloud MD LAB - NON-BEAKER BLOOD LABS Final Result Performing Organization Address [facility] [address] [facility] de Phone Number [facility] [address] * Albumin (BFP) (12/17/2024) Albumin 4.5 3.6 - 5.1 g/dL [facility] Blood 12/17/2024 us Gavi Cloud MD LAB - NON-BEAKER BLOOD LABS Final Result Performing Organization Address [facility] [address] [facility] de Phone Number [facility] [address] * (ABNORMAL) HEMOGRAM PLATELET DIFF ([facility]FP) (12/17/2024) WBC 4.6 4.0 - 11 10*9/L [facility] RBC Count 3.96 3.8 - 5.2 10*12/L [facility] Hemoglobin 13.3 11.7 - 15.7 g/dL [facility] Hematocrit 39.8 35.0 - 47.0 % [facility] MCV 100.4(A) 78 - 100 fL [facility] MCH 33.6(A) 26 - 33 pg [facility] MCHC 33.4 31 - 36 g/dL [facility] Platelet Count 158 150 - 375 10^9/L [facility] % Granulocytes 50.6 % [facility] % Lymphocytes 39.3 % [facility] % Monocytes 10.1 % [facility] Blood 12/17/2024 us Gavi Cloud MD LAB - NON-BEAKER BLOOD LABS Final Result [facility] [address] [place] [address] [address] [place] [address] documented in this encounter Visit Diagnoses Diagnosis 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)- Primary Giant cell arteritis Encounter for long-term (current) use of medications Encounter for long-term (current) use of other medications documented in this encounter Additional Health Concerns Assessment Noted Time PHQ-9 Depression Total Score: 8 04/30/19 24 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 [address] [place] [address] PCP - General Family Medicine 08/17/24 Hector Goode MD [address] [place] [address] Neurology 05/01/17 John Cancino MD [address] [place] [address] Family Medicine - Sports Medicine 07/30/17 aCrl Farah MD [address] [place] [address] Assigned Heart and Vascular Provider 05/18/22 12/29/24 Hector Goode MD [address] [place] [address] [place] [id number] [place] [address] Assigned Neuroscience Provider 07/01/23 12/29/24 Rivas Delcid MD [address] [facility], [address] [place] [address] Assigned Surgical Provider 03/01/24 Gavi Cloud MD [address] [facility] [address] [place] [address] Assigned PCP 10/30/24 01/05/25 documented as of this encounter
--- OUTSIDE RECORDS SUMMARY | 2025-01-07 17:11 | XMS_ITS | Encounter Summary ---
Author Organization [place] Address [facility] [place] [address] Care Team Providers Care Mechanic/Welder Name Role Phone Hector Goode MD Unavailable John Cancino MD Unavailable [phone] Rivas Delcid MD Unavailable Gavi Cloud MD Primary Care Provider [phone] Blue Mensah MD Unavailable Un available Jasmin Maradiaga PA-C Unavailable + [phone] Reason for Visit * Reason Comments Aphasia Encounter Details Date Type Department Care Team (Late st Contact Info) Description 01/07/2025 5:11 PM CDT - 01/07/2025 5:12 PM CDT Emergency [facility] Emergency Dept [address] [place] [address] Discharge Disposition: Left Without Being Seen Social History Tobacco Use Types Packs/Day Years [...] in an abandoned building, in an overnight skilled nursing, or couch-surfing.) Yes 02/02/2024 Are you worried [...] on file 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 Gender Identity Not on file Sexual Orientation Not on file documented as of this encounter Last Filed Vital Signs Vital Sign Reading Time Taken Comments Blood Pressure 144/60 01/07/2025 2:21 PM CDT Pulse 68 01/07/2025 2:20 PM CDT Temperature 36.6 C (97.8 F) 01/07/2025 2:20 PM CDT Respiratory Rate 20 01/07/2025 2:20 PM CDT Oxygen Saturation 99% 01/07/2025 2:20 PM CDT Inhaled Oxygen Concentration - - Weight 102.1 kg (225 lb) 01/07/2025 2:20 PM CDT Height 160 cm (5' 3) 01/07/2025 2:20 PM CDT Body Mass Index 39.86 01/07/2025 2:20 PM CDT documented in this encounter Functional Status * Calculated C-SSRS Risk Score (Lifetime/Recent) Answer Date of Assessment Author No Risk Indicated 01/07/2025 2:14 PM CDT Ofe Antonio RN * [place] Suicide Severity Rating Scale (Screener/Recent Self-Report) Question Answer Date of Assessment Author 1. Wish to be (Past 1 Month) No 01/07/2025 2:14 PM CDT Ofe Antonio RN 2. Non-Specific Active Suici jeanne Thoughts (Past 1 Month) No 01/07/2025 2:14 PM CDT Yessy Antonio RN 6. Suicidal Behavior (Lifetime) No 2:14 PM CDT Ofe Antonio RN documented as of this encounter Medications at [...] mouth daily. documented as of this encounter ED Notes * Marielle Zavala RN - 01/07/2025 5:09 PM CDT Per registration staff, patients son requested to leave with patient. Registration requested that the patient wait and talk with a nurse to complete a form. The son reportedly began swearing at the staff member and left promptly left with the patient. * Ofe Antonio RN - 01/07/2025 2:17 PM CDT Patient arrives with family after having an episode of word finding difficulty with aphagia. Symptoms have now resolved since this episode. BEFAST negative Family gave half an adult Asprin TREE PULLER. documented in this encounter Plan of Treatment Scheduled Orders Name Type Priority Associated Diagnoses Orde r Schedule CBC with Platelets and Differential (Limited Occurrences) Lab Panel STAT STAT for 1 Occur rences starting 01/07/2025 until 01/07/2025 Basic Metabolic Panel (Limited Occurrences) Lab STAT STAT for 1 Occurrences starting 01/07/2025 until 01/07/2025 Vincent Draw Lab STAT Routine for 1 Occurrences starting 01/07/2025 until 01/07/2025 Scheduled Procedures Name Priority Associated Diagnoses Date/Ti me ENDOSCOPIC RETROGRADE CHOLANGIOPANCREATOGRAPHY, COMPLEX Cholecystitis Choledocholithiasis with acute cholecystitis documented as of this encounter Procedures Procedure Name Priority Date/Time Associated Diagnosis Comments ROUTINE UA WITH MICROSCOPIC REFLEX TO CULTURE STAT 01/07/2025 3:36 PM CDT documented in this encounter Results * UA with Microscopic reflex to Culture (01/07/2025 3:36 PM CDT) Color Urine Straw Colorless, Straw, Light Yellow, Yellow 01/07/2025 3:55 PM CDT [facility] Appearance Urine Clear Clear 01/08/20 3:55 PM CDT [facility] Glucose Urine Negative Negative mg/dL 01/07/2025 3:55 PM CDT [facility] Bilirubin Urine Negative Negative 3:55 PM CDT [facility] Ketones Urine Negative Negative mg/dL 01/07/2025 3:55 PM CDT [facility] Specific [place] Urine 1.004 1.003 - 1.035 01/07/2025 3:55 PM CDT [facility] Blood Urine Negative Negative 01/07/2025 3:55 PM CDT [facility] pH Urine 6.0 5.0 - 7.0 01/07/2025 3:55 PM CDT [facility] Protein Albumin Urine Negative Negative mg/dL 01/07/2025 3:55 PM CDT [facility] Urobilinogen Urine Normal Normal mg/dL 01/07/2025 3:55 PM CDT [facility] Nitrite Urine Negative Negative 01/07/2025 3:55 PM CDT [facility] Leukocyte Esterase Urine Negative Negative 01/07/2025 3:55 PM CDT [facility] RBC Urine <1 <=2 /HPF 01/07/2025 3:55 PM CDT [facility] WBC Urine <1 <=5 /HPF 01/07/2025 3:55 PM CDT [facility] Hyaline Casts Urine 1 <=2 /LPF 01/07/2025 3:55 PM CDT [facility] Urine URINE SPECIMEN / Unknown Non-blood Collection / Unknown 01/07/2025 3:36 PM CDT 01/07/2025 3:44 PM CDT Narrative [facility] - 01/07/2025 3:55 PM CDT Urine Culture not indicated us Ellis Duncan MD LAB - URINE ORDERABLES Fi nal Result LABORATORY [facility] [address] [facility] (1st floor, no room number) [place] [address] documented in this encounter Visit Diagnoses Not on filedocumented in this encounter Additional Health Concerns Assessment Noted Time PHQ-9 Depression Total Score: 8 04/30/19 24 2:24 PM STIFF NECK LOADER documented as of this encounter Care Teams Mechanic/Welder Relationship Specialty Start Date End Date Gavi Cloud MD [address] [place] [address] PCP - General Family Medicine 08/17/24 Hector Goode MD [address] [place] [address] 157925 Neurology 05/01/17 John Cancino MD [address] [place] [address] [id number] Family Medicine - Sports Medicine 07/30/17 Rivas Delcid MD [address] [facility], [address] [place] [address] Assigned Surgical Provider 03/01/24 Blue Mensah MD Assigned Heart and Vascular Provider 12/30/24 Jasmin Maradiaga PA-C [address] , [facility] [address] [place] [address] Assigned PCP 01/06/25 documented as of this encounter
[2025-01-07 17:17] VITALS: BP 152/75; PULSE 59; RESP 18; TEMP 35.9; O2SAT 96
--- OUTSIDE RECORDS SUMMARY | 2025-01-07 17:17 | XMS_ITS | Encounter Summary ---
Author Organization [place] Address [address] [place] [address] Care Team Providers Care Injury Prevention Coordinator Name Role Phone Roslyn Sandoval MD Primary Care Provider Unav ailable Hector Goode MD Unavailable John Cancino MD Unavailable [phone] Roslyn Sandoval MD Unavailable UnavailKorin Cash MD Unavailable +- [phone] Korin Lamb MD Primary Care Provider [phone] Carl Farah MD Unavailable Unavailable Roslyn Sandoval MD Unavailable UnavailKorin Cash MD Unavailable [phone] Gavi Cloud MD Unavailable +[phone] Jasmin Maradiaga PA-C Unavailable [phone] Itzel Polk APRN CHURCH ORGANIST Unavailable Unavailable Carl Farah MD Unavailable Unavailable Jasmin Maradiaga PA-C Primary Care Provid er Gavi Cloud MD Unavailable [phone] Jasmin Maradiaga PA-C Unavailable [phone] Itzel Polk APRN CHURCH ORGANIST Unavailable Unavailable Carl Farah MD Unavailable Unavailable Hector Goode MD Unavailable Jaclyn Thomason APRN CHURCH ORGANIST Unavailable [phone] [facility], [facility] Unavailable Rivas Delcid MD Unavailable Gavi Cloud MD Primary Care Provider + [phone] Gavi Cloud MD Unavailable [phone] Blue Mensah MD Unavailable Un available Jasmin Maradiaga PA-C Unavailable + [phone] Encounter Details Date Type Department Care Team (Late st Contact Info) Description 11/30/2004 [facility] [address] [place] [address] [address] [place] [address] Dionne Quach MD [address] [facility] [address]100 [place], [place] [id number] TACHYCARDIA NOS (Primary Dx); CHEST PAIN NOS; [...] on file 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 Gender Identity Not on file Sexual [...] Hypopotassemia documented in this encounter Care Teams Injury Prevention Coordinator Relationship Specialty Start Date End Date Roslyn Sandoval MD NO INFO AVAILABLE 10/03/22 PCP - General 03/27/99 08/11/19 Korin Lamb MD [address] , [address] [address] PCP - General Family Practice 08/12/19 03/15/21 Jasmin Maradiaga PA-C [address], [address] [address] PCP - General Family Medicine 03/16/21 08/16/24 Gavi Cloud MD [address] [address] PCP - General Family Medicine 08/17/24 Hector Goode MD [address] [address] Neurology 05/01/17 John Cancino MD [address] 863475 Family Medicine - Sports Medicine 07/30/17 Roslyn Sandoval MD NO INFO AVAILABLE 10/03/22 Assigned PCP 02/08/18 06/05/19 Korin Lamb MD [address] , [address] [address] Assigned PCP 06/06/19 04/29/20 Carl Farah MD Assigned Heart and Vascular Provider 12/31/19 12/16/20 Roslyn Sandoval MD NO INFO AVAILABLE 10/03/22 Assigned PCP 04/30/20 05/06/20 Korin Lamb MD [address], [address] [place] [address] Assigned PCP 05/07/20 05/28/20 Gavi Cloud MD [address] [place] [address] Assigned PCP 05/29/20 01/06/21 Jasmin Maradiaga PA-C [address], [address] [place] [address] Assigned PCP 01/07/21 09/28/21 Itzel Polk APRN CHURCH ORGANIST Assigned Heart and Vascular Provider 12/17/20 02/17/21 Carl Farah MD Assigned Heart and Vascular Provider 02/18/21 12/14/21 Gavi Cloud MD [address] [place] [address] Assigned PCP 09/29/21 10/19/21 Jasmin Maradiaga PA-C [address], [address] [place] [address] Assigned PCP 10/20/21 10/29/24 Itzel Polk APRN CHURCH ORGANIST Assigned Heart and Vascular Provider 12/15/21 05/17/22 Carl Farah MD [address], [address] [place] [address] Assigned Heart and Vascular Provider 05/18/22 12/29/24 Hector Goode MD [address] [facility] [address] [place] [address] Assigned Neuroscience Provider 07/01/23 12/29/24 Jaclyn Thomason APRN CHURCH ORGANIST [facility] [place] [address] Nurse Practitioner Geriatric Medicine 02/06/[address] [place] [address] [place] [phone] 02/06/24 02/23/24 Rivas Delcid MD [address] [facility], [address] [place] [address] Assigned Surgical Provider 03/01/24 Gavi Cloud MD [address] [address] Assigned PCP 10/30/24 01/05/25 Blue Mensah MD Assigned Heart and Vascular Provider 12/30/24 Jasmin Maradiaga PA-C [address], [address] [address] Assigned PCP 01/06/25 documented as of this encounter
--- OUTSIDE RECORDS SUMMARY | 2025-01-07 17:17 | XMS_ITS | Encounter Summary ---
Author Organization [place] Address [address] [place] [address] Care Team Providers Care Parachute Panel Joiner Name Role Phone Roslyn Sandoval MD Primary Care Provider Unav ailable Hector Goode MD Unavailable John Cancino MD Unavailable [phone] Roslyn Sandoval MD Unavailable UnavailKorin Cash MD Unavailable +- [phone] Korin Lamb MD Primary Care Provider [phone] Carl Farah MD Unavailable Unavailable Roslyn Sandoval MD Unavailable UnavailKorin Cash MD Unavailable [phone] Gavi Cloud MD Unavailable [phone] Jasmin Maradiaga PA-C Unavailable [phone] Itzel Polk APRN INFORMATION TECHNOLOGY SECURITY ANALYST Unavailable Unavailable Carl Farah MD Unavailable Unavailable Jasmin Maradiaga PA-C Primary Care Provid er Gavi Cloud MD Unavailable [phone] Jasmin Maradiaga PA-C Unavailable [phone] Iztel Polk APRN INFORMATION TECHNOLOGY SECURITY ANALYST Unavailable Unavailable Carl Farah MD Unavailable Unavailable Hector Goode MD Unavailable Jaclyn Thomason APRN INFORMATION TECHNOLOGY SECURITY ANALYST Unavailable [phone] [facility], [facility] Unavailable Rivas Delcid MD Unavailable Gavi Cloud MD Primary Care Provider + [phone] Gavi Cloud MD Unavailable [phone] Blue Mensah MD Unavailable Un available Jasmin Maradiaga PA-C Unavailable + [phone] Encounter Details Date Type Department Care Team (Late st Contact Info) Description 07/31/2004 Abstract [facility] [address] [place] [address] Roslyn Sandoval MD NO INFO AVAILABLE 10/03/22 ABSTRACTING RESULTS (Primary Dx) Social History Tobacco Use Types Packs/Day Years Used Date Smoking Tobacco: Never Alcohol Use Standard Drinks/Week Comments No 0 (1 standard drink = 0.6 oz pur e alcohol) on occ Comments No Sex and Gender Information Value Date Recorded Sex Assigned at Not on file 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 Gender Identity Not on file Sexual Orientation [...] INTERNAL [address] [place] [address], [facility] * PTT (07/27/2004) PTT 38.2 SECONDS BETTE LEDESMA-BOUCHRA MEJIA us Roslyn Sandoval MD LABORATORY Final Resul t BETTE GONZALES [address] [place] [address] documented in this encounter Visit Diagnoses Diagnosis ABSTRACTING RESULTS- Primary documented in this encounter Care Teams Parachute Panel Joiner Relationship Specialty Start Date End Date Roslyn Sandoval MD NO INFO AVAILABLE 10/03/22 PCP - General 03/27/99 08/11/19 Korin Lamb MD [address] [address] PCP - General Family Practice 08/12/19 03/15/21 Jasmin Maradiaga PA-C [address] [address] PCP - General Family Medicine 03/16/21 08/16/24 Gavi Cloud MD [address] [address] PCP - General Family Medicine 08/17/24 Hector Goode MD [address] [place] [address] Neurology 05/01/17 John Cancino MD [address] [place] [address] Family Medicine - Sports Medicine 07/30/17 Roslyn Sandoval MD NO INFO AVAILABLE 10/03/22 Assigned PCP 02/08/18 06/05/19 Korin Lamb MD [address], [address] [place] [address] Assigned PCP 06/06/19 04/29/20 Carl Farah MD Assigned Heart and Vascular Provider 12/31/19 12/16/20 Roslyn Sandoval MD NO INFO AVAILABLE 10/03/22 Assigned PCP 04/30/20 05/06/20 Korin Lamb MD [address], [facility] 100 [place] [address] Assigned PCP 05/07/20 05/28/20 Gavi Cloud MD [address] [address] Assigned PCP 05/29/20 01/06/21 Jasmin Maradiaga PA-C [address], [facility] 100 [place] [address] Assigned PCP 01/07/21 09/28/21 Itzel Polk APRN CNP Assigned Heart and Vascular Provider 12/17/20 02/17/21 Carl Farah MD Assigned Heart and Vascular Provider 02/18/21 12/14/21 Gavi Cloud MD [address] [place] [address] Assigned PCP 09/29/21 10/19/21 Jasmin Maradiaga PA-C [address], [facility] [address] [place] [address] Assigned PCP 10/20/21 10/29/24 Itzel Polk APRN INFORMATION TECHNOLOGY SECURITY ANALYST Assigned Heart and Vascular Provider 12/15/21 05/17/22 Carl Farah MD [address] , [address] [address] Assigned Heart and Vascular Provider 05/18/22 12/29/24 Hector Goode MD [address] [facility] [address] Assigned Neuroscience Provider 07/01/23 12/29/24 Jaclyn Thomason APRN INFORMATION TECHNOLOGY SECURITY ANALYST [address] [place] [address] Nurse Practitioner Geriatric Medicine 02/06/24 4 T[facility], [facility] [address] [place] [phone] 02/06/24 02/23/24 Rivas Delcid MD [address] [facility], [address] [place] [address] Assigned Surgical Provider 03/01/24 Gavi Cloud MD [address] [address] Assigned PCP 10/30/24 01/05/25 Blue Mensah MD Assigned Heart and Vascular Provider 12/30/24 Jasmin Maradiaga PA-C [address] , [facility] 100 [place] [address] Assigned PCP 01/06/25 documented as of this encounter
--- OUTSIDE RECORDS SUMMARY | 2025-01-07 17:17 | XMS_ITS | Encounter Summary ---
Author Organization [place] Address [address] [place] [address] Care Team Providers Care Dowel Sticker Operator Name Role Phone Roslyn Sandoval MD Primary Care Provider Unav ailable Hector Goode MD Unavailable John Cancino MD Unavailable [phone] Roslyn Sandoval MD Unavailable UnavailKorin Cash MD Unavailable +- [phone] Korin Lamb MD Primary Care Provider [phone] Carl Farah MD Unavailable Unavailable Roslyn Sandoval MD Unavailable UnavailKorin Cash MD Unavailable [phone] Gavi Cloud MD Unavailable [phone] Jasmin Maradiaga PA-C Unavailable [phone] Itzel Polk APRN CEMENT SPRAYER HELPER Unavailable Unavailable Carl Farah MD Unavailable Unavailable Jasmin Maradiaga PA-C Primary Care Provid er Gavi Cloud MD Unavailable [phone] Jasmin Maradiaga PA-C Unavailable [phone] Itzel Polk APRN CEMENT SPRAYER HELPER Unavailable Unavailable Carl Farah MD Unavailable Unavailable Hector Goode MD Unavailable Jaclyn Thomason APRN CEMENT SPRAYER HELPER Unavailable [phone] [facility], [facility] Unavailable Rivas Delcid MD Unavailable Gavi Cloud MD Primary Care Provider + [phone] Gavi Cloud MD Unavailable [phone] Blue Mensah MD Unavailable Un available Jasmin Maradiaga PA-C Unavailable + [phone] Encounter Details Date Type Department Care Team (Late st Contact Info) Description 09/21/2004 Abstract [facility] [address] [place] [address] Abstract, Provider ABSTRACTING RESULTS (Primary Dx) Social History Tobacco Use Types Packs/Day Years Used Date Smoking Tobacco: Never Alcohol Use Standard Drinks/Week Comments No 0 (1 standard drink = 0.6 oz pur e alcohol) on occ Comments No Sex and Gender Information Value Date Recorded Sex Assigned at Not on file 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 Gender Identity Not on file Sexual Orientation [...] Point of Care 2.2 [facility] INTER[facility] Narrative P INTERNAL - 09/21/2004 PT=22.3 us Provider Abstract LABORATORY Final Result [facility] [address] [place] [address] [address] [place] [address], [facility] * WBC (09/21/2004) WBC 7.3 4.3 - 11 thous/CU.MM [facility] INTERNAL Provider Abstract LABORATORY Final Result [facility] INTERNAL [address] [facility] 100 [place] [address] documented in this encounter Visit Diagnoses Diagnosis ABSTRACTING RESULTS- Primary documented in this encounter Care Teams Dowel Sticker Operator Relationship Specialty Start Date End Date Roslyn Sandoval MD NO INFO AVAILABLE 10/03/22 PCP - General 03/27/99 08/11/19 Korin Lamb MD [address] , [address] [address] PCP - General Family Practice 08/12/19 03/15/21 Jasmin Maradiaga PA-C [address] , [address] [address] PCP - General Family Medicine 03/16/21 08/16/24 Gavi Cloud MD [address] [address] PCP - General Family Medicine 08/17/24 Hector Goode MD [address] [place] [address] Neurology 05/01/17 John Cancino MD [address] [place] [address] 162415 Family Medicine - Sports Medicine 07/30/17 Roslyn Sandoval MD NO INFO AVAILABLE 10/03/22 Assigned PCP 02/08/18 06/05/19 Korin Lamb MD [address], [address] [place] [address] Assigned PCP 06/06/19 04/29/20 Carl Farah MD Assigned Heart and Vascular Provider 12/31/19 12/16/20 Roslyn Sandoval MD NO INFO AVAILABLE 10/03/22 Assigned PCP 04/30/20 05/06/20 Korin Lamb MD [address], [address] [address] Assigned PCP 05/07/20 05/28/20 Gavi Cloud MD [address] [address] Assigned PCP 05/29/20 01/06/21 Jasmin Maradiaga PA-C [address], [address] [address] Assigned PCP 01/07/21 09/28/21 Itzel Polk APRN CEMENT SPRAYER HELPER Assigned Heart and Vascular Provider 12/17/20 02/17/21 Carl Farah MD Assigned Heart and Vascular Provider 02/18/21 12/14/21 Gavi Cloud MD [address] [address] Assigned PCP 09/29/21 10/19/21 Jasmin Maradiaga PA-C [address], [address] [address] Assigned PCP 10/20/21 10/29/24 tIzel Polk APRN CEMENT SPRAYER HELPER Assigned Heart and Vascular Provider 12/15/21 05/17/22 Cral Farah MD [address] , [address] [address] Assigned Heart and Vascular Provider 05/18/22 12/29/24 Hector Goode MD 909 [facility] [id number] [place] [address] Assigned Neuroscience Provider 07/01/23 12/29/24 Jaclyn Thomason APRN CEMENT SPRAYER HELPER [address] [place] [address] Nurse Practitioner Geriatric Medicine 02/06/24 4 Tc, [facility] [address] [place] [phone] 02/06/24 02/23/24 Rivas Delcid MD 6405 [facility], [address] [place] [address] Assigned Surgical Provider 03/01/24 Gavi Cloud MD [address] [address] Assigned PCP 10/30/24 01/05/25 Blue Mensah MD Assigned Heart and Vascular Provider 12/30/24 Jasmin Maradiaga PA-C [address] , [address] [address] Assigned PCP 01/06/25 documented as of this encounter
--- OUTSIDE RECORDS SUMMARY | 2025-01-07 17:17 | XMS_ITS | Encounter Summary ---
Author Organization [place] Address [address] [place] [address] Care Team Providers Care Private Tutor Name Role Phone Roslyn Sandoval MD Primary Care Provider Unav ailable Hector Goode MD Unavailable John Cancino MD Unavailable [phone] Roslyn Sandoval MD Unavailable UnavailKorin Cash MD Unavailable +- [phone] Korin Lamb MD Primary Care Provider [phone] Carl Farah MD Unavailable Unavailable Roslyn Sandoval MD Unavailable UnavailKorin Cash MD Unavailable [phone] Gavi Cloud MD Unavailable +[phone] Jasmin Maradiaga PA-C Unavailable +[phone] Itzel Polk APRN BUTTING SAW OPERATOR Unavailable Unavailable Carl Farah MD Unavailable Unavailable Jasmin Maradiaga PA-C Primary Care Provid er Gavi Cloud MD Unavailable +[phone] Jasmin Maradiaga PA-C Unavailable +[phone] Itzel Polk APRN BUTTING SAW OPERATOR Unavailable Unavailable Carl Farah MD Unavailable Unavailable Hector Goode MD Unavailable Jaclyn Thomason APRN BUTTING SAW OPERATOR Unavailable [phone] [facility] Unavailable Rivas Delcid MD Unavailable Gavi Cloud MD Primary Care Provider + [phone] Gavi Cloud MD Unavailable +[phone] Blue Mensah MD Unavailable Un available Jasmin Maradiaga PA-C Unavailable + [phone] Encounter Details Date Type Department Care Team (Late st Contact Info) Description 01/18/2005 Abstract [facility] [address] [place] [address] [address] [place] [address] Roslyn Sandoval MD NO INFO AVAILABLE 10/03/22 ABSTRACTING RESULTS (Primary Dx) Social History Tobacco Use Types Packs/Day Years Used Date Smoking Tobacco: Never Alcohol Use Standard Drinks/Week Comments No 0 (1 standard drink = 0.6 oz pur e alcohol) on occ Comments No Sex and Gender Information Value Date Recorded Sex Assigned at Not on file 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 Gender Identity Not on file Sexual Orientation [...] INTERNAL [address] [place] [address], [facility] * HEMOGLOBIN (01/18/2005) Hemoglobin 12.5 12 - 16 GM/DL BFP INTERNAL Roslyn Sandoval MD LABORATORY Final Resul t Performing Organization Address [facility] de Phone Number BF INTERNAL [address] [address] [place] [phone], [facility] * WBC (01/18/2005) WBC 4.8 4.3 - 11 thous/CU.MM BFP INTERNAL Roslyn Sandoval MD LABORATORY Final Resul t Performing Organization Address [facility] Co de Phone Number [facility] INTERNAL [address] [address], [facility] documented in this encounter Visit Diagnoses Diagnosis ABSTRACTING RESULTS- Primary documented in this encounter Care Teams Private Tutor Relationship Specialty Start Date End Date Roslyn Sandoval MD NO INFO AVAILABLE 10/03/22 PCP - General 03/27/99 08/11/19 Korin Labm MD [address] [place] [address] PCP - General Family Practice 08/12/19 03/15/21 Jasmin Maradiaga PA-C [address] [address] PCP - General Family Medicine 03/16/21 08/16/24 Gavi Cloud MD [facility] W [address] [place] [address] PCP - General Family Medicine 08/17/24 Hector Goode MD [address] [place] [address] Neurology 05/01/17 John Cancino MD [address] [facility] [id number] [place] [address] Family Medicine - Sports Medicine 07/30/17 Roslyn Sandoval MD NO INFO AVAILABLE 10/03/22 Assigned PCP 02/08/18 06/05/19 Korin Lamb MD [address] [address] Assigned PCP 06/06/19 04/29/20 Carl Farah MD Assigned Heart and Vascular Provider 12/31/19 12/16/20 Roslyn Sandoval MD NO INFO AVAILABLE 10/03/22 Assigned PCP 04/30/20 05/06/20 Korin Lamb MD [address] [address] Assigned PCP 05/07/20 05/28/20 Gavi Cloud MD [address] [address] Assigned PCP 05/29/20 01/06/21 Jasmin Maradiaga PA-C [address] [address] Assigned PCP 01/07/21 09/28/21 Itzel Polk APRN BUTTING SAW OPERATOR Assigned Heart and Vascular Provider 12/17/20 02/17/21 Carl Farah MD Assigned Heart and Vascular Provider 02/18/21 12/14/21 Gavi Cloud MD [address] [place] [address] Assigned PCP 09/29/21 10/19/21 Jasmin Maradiaga PA-C [address], [facility] [address] [place] [address] Assigned PCP 10/20/21 10/29/24 Itzel Polk APRN BUTTING SAW OPERATOR Assigned Heart and Vascular Provider 12/15/21 05/17/22 Carl Farah MD [address], [address] [address] Assigned Heart and Vascular Provider 05/18/22 12/29/24 Hector Goode MD 9 [facility], [place] [address] Assigned Neuroscience Provider 07/01/23 12/29/24 Jaclyn Thomason APRN BUTTING SAW OPERATOR [address] [place] [address] Nurse Practitioner Geriatric Medicine 02/06/[address] [place] [address] [place] [phone] 02/06/24 02/23/24 Rivas Delcid MD [address] [facility], [address] [place] [address] Assigned Surgical Provider 03/01/24 Gavi Cloud MD [address] [address] Assigned PCP 10/30/24 01/05/25 Blue Mensah MD Assigned Heart and Vascular Provider 12/30/24 Jasmin Maradiaga PA-C [address], [address] [address] Assigned PCP 01/06/25 documented as of this encounter
--- OUTSIDE RECORDS SUMMARY | 2025-01-07 17:17 | XMS_ITS | Encounter Summary ---
Author Organization [place] Address [address] [place] [address] Care Team Providers Care Gmat Instructor Name Role Phone Marcos Sandoval MD Primary Care Provider Unav ailable Hector Goode MD Unavailable John Cancino MD Unavailable [phone] Marcos Sandoval MD Unavailable UnavailKorin Cash MD Unavailable +- 03 Korin Lamb MD Primary Care Provider [phone] Carl Farah MD Unavailable Unavailable Marcos Sandoval MD Unavailable UnavailKorin Cash MD Unavailable [phone] Gavi Cloud MD Unavailable +[phone] Jasmin Maradiaga PA-C Unavailable [phone] Itzel Polk APRN VENEER SUPERVISOR Unavailable Unavailable Carl Farah MD Unavailable Unavailable Jasmin Maradiaga PA-C Primary Care Provid er Gavi Cloud MD Unavailable [phone] Jasmin Maradiaga PA-C Unavailable [phone] Itzel Polk APRN VENEER SUPERVISOR Unavailable Unavailable Carl Farah MD Unavailable Unavailable Hector Goode MD Unavailable Jaclyn Thomason APRN VENEER SUPERVISOR Unavailable [phone] [facility] Rivas Delcid MD Unavailable Gavi Cloud MD Primary Care Provider + [phone] Gavi Cloud MD Unavailable [phone] Blue Mensah MD Unavailable Un available Jasmin Maradiaga PA-C Unavailable + [phone] Encounter Details Date Type Department Care Team (Late st Contact Info) Description 08/15/2004 Office Visit-[facility] Heart [address] [place] [address] Unknown, DoctorMD Social History Tobacco Use Types Packs/Day Years Used Date Smoking Tobacco: Never Alcohol Use Standard Drinks/Week Comments No 0 (1 standard drink = 0.6 oz pur e alcohol) on occ Comments No Sex and Gender Information Value Date Recorded Sex Assigned at Not on file 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 Weight- 265.00 lbs. Height- 65.00 [...] 3. Basic Metabolic Panel Today Yumiko Hernandez Electronically signed by [facility], [facility] Data Conversion at 07/22/2013 9:53 PM CDT documented in this encounter Plan of Treatment Scheduled Procedures Name Priority Associated Diagnoses Date/Ti me ENDOSCOPIC RETROGRADE CHOLANGIOPANCREATOGRAPHY, COMPLEX Cholecystitis Choledocholithiasis with acute cholecystitis documented as of this encounter Visit Diagnoses Not on filedocumented in this encounter Care Teams Gmat Instructor Relationship Specialty Start Date End Date Marcos Sandoval MD NO INFO AVAILABLE 10/03/22 PCP - General 03/27/99 08/11/19 Korin Lamb MD [address] [address] PCP - General Family Practice 08/12/19 03/15/21 Jasmin Maradiaga PA-C [address] [address] PCP - General Family Medicine 03/16/21 08/16/24 Gavi Cloud MD [address] [address] PCP - General Family Medicine 08/17/24 Hector Goode MD [id number] [address] Neurology 05/01/17 John Cancino MD [address] [address] Family Medicine - Sports Medicine 07/30/17 Marcos Sandoval MD NO INFO AVAILABLE 10/03/22 Assigned PCP 02/08/18 06/05/19 Korin Lamb MD [address] [address] Assigned PCP 06/06/19 04/29/20 Carl Farah MD Assigned Heart and Vascular Provider 12/31/19 12/16/20 Marcos Sandoval MD NO INFO AVAILABLE 10/03/22 Assigned PCP 04/30/20 05/06/20 Korin Lamb MD [address] [address] Assigned PCP 05/07/20 05/28/20 Gavi Cloud MD [address] [address] Assigned PCP 05/29/20 01/06/21 Jasmin Maradiaga PA-C [address], [address] [place] [address] Assigned PCP 01/07/21 09/28/21 Itzel Polk APRN VENEER SUPERVISOR Assigned Heart and Vascular Provider 12/17/20 02/17/21 Carl Farah MD Assigned Heart and Vascular Provider 02/18/21 12/14/21 Gavi Cloud MD [address] [place] [address] Assigned PCP 09/29/21 10/19/21 Jasmin Maradiaga PA-C [address], [address] [address] Assigned PCP 10/20/21 10/29/24 Itzel Polk APRN VENEER SUPERVISOR Assigned Heart and Vascular Provider 12/15/21 05/17/22 Carl Farah MD [address], [address] [address] Assigned Heart and Vascular Provider 05/18/22 12/29/24 Hector Goode MD [address] [place] [address] [id number] [place] [address] Assigned Neuroscience Provider 07/01/23 12/29/24 Jaclyn Thomason APRN VENEER SUPERVISOR [address] [place] [address] Nurse Practitioner Geriatric Medicine 02/06/[address] [place] [phone] 02/06/24 02/23/24 Rivas Delcid MD [address] [facility], [address] [place] [address] Assigned Surgical Provider 03/01/24 Gavi Cloud MD [address] [address] Assigned PCP 10/30/24 01/05/25 Blue Mensah MD Assigned Heart and Vascular Provider 12/30/24 Jasmin Maradiaga PA-C [address] [address] Assigned PCP 01/06/25 documented as of this encounter
--- OUTSIDE RECORDS SUMMARY | 2025-01-07 17:17 | XMS_ITS | Encounter Summary ---
Author Organization [employer] Address [address] [place] [address] Care Team Providers Care Card Placer Name Role Phone Roslyn Sandoval MD Primary Care Provider Unav ailable Hector Goode MD Unavailable John Cancino MD Unavailable [phone] Roslyn Sandoval MD Unavailable UnavailKorin Cash MD Unavailable +- [phone] Korin Lamb MD Primary Care Provider [phone] Carl Farah MD Unavailable Unavailable Roslyn Sandoval MD Unavailable UnavailKorin Cash MD Unavailable [phone] Gavi Cloud MD Unavailable +[phone] Jasmin Maradiaga PA-C Unavailable [phone] Itzel Polk APRN DIGITAL PRE PRESS OPERATOR Unavailable Unavailable Carl Farah MD Unavailable Unavailable Jasmin Maradiaga PA-C Primary Care Provid er Gavi Cloud MD Unavailable [phone] Jasmin Maradiaga PA-C Unavailable [phone] Itzel Polk APRN DIGITAL PRE PRESS OPERATOR Unavailable Unavailable Carl Farah MD Unavailable Unavailable Hector Goode MD Unavailable Jaclyn Thomason APRN DIGITAL PRE PRESS OPERATOR Unavailable [phone] [facility], [facility] Unavailable Rivas Delcid MD Unavailable Gavi Cloud MD Primary Care Provider + [phone] Gavi Cloud MD Unavailable [phone] Blue Mensah MD Unavailable Un available Hiren Jasmin Radha BROUSSARD Unavailable + [phone] Encounter Details Date Type Department Care Team (Late st Contact Info) Description 10/08/2004 Abstract [facility] [address] [place] [address] [address] [place] [address] Roslyn Sandoval MD NO INFO AVAILABLE 10/03/22 ABSTRACTING RESULTS (Primary Dx) Social History Tobacco Use Types Packs/Day Years Used Date Smoking Tobacco: Never Alcohol Use Standard Drinks/Week Comments No 0 (1 standard drink = 0.6 oz pur e alcohol) on occ Comments No Sex and Gender Information Value Date Recorded Sex Assigned at Not on file 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 Gender Identity Not on file Sexual [...] Sandoval MD LABORATORY Final Resul t [facility] [address] [facility] [place] [address] documented in this encounter Visit Diagnoses Diagnosis ABSTRACTING RESULTS- Primary documented in this encounter Care Teams Card Placer Relationship Specialty Start Date End Date Roslyn Sandoval MD NO INFO AVAILABLE 10/03/22 PCP - General 03/27/99 08/11/19 Korin Lamb MD [address] [address] PCP - General Family Practice 08/12/19 03/15/21 Jasmin Maradiaga PA-C [address] [address] PCP - General Family Medicine 03/16/21 08/16/24 Gavi Cloud MD [address] [address] PCP - General Family Medicine 08/17/24 Hector Goode MD [address] [place] [address] Neurology 05/01/17 John Cancino MD [address] [place] [address] Family Medicine - Sports Medicine 07/30/17 Roslyn Sandoval MD NO INFO AVAILABLE 10/03/22 Assigned PCP 02/08/18 06/05/19 Korin Lamb MD [address] [address] Assigned PCP 06/06/19 04/29/20 Carl Farah MD Assigned Heart and Vascular Provider 12/31/19 12/16/20 Roslyn Sandoval MD NO INFO AVAILABLE 10/03/22 Assigned PCP 04/30/20 05/06/20 Korin Lamb MD [address], [facility] 100 [place] [address] Assigned PCP 05/07/20 05/28/20 Gavi Cloud MD [address] [place] [address] Assigned PCP 05/29/20 01/06/21 Jasmin Maradiaga PA-C [address], [facility] 100 [place] [address] Assigned PCP 01/07/21 09/28/21 Itzel Polk APRN [facility] Assigned Heart and Vascular Provider 12/17/20 02/17/21 Carl Farah MD Assigned Heart and Vascular Provider 02/18/21 12/14/21 Gavi Cloud MD [address] [place] [address] Assigned PCP 09/29/21 10/19/21 Jasmin Maradiaga PA-C [address], [address] [place] [address] Assigned PCP 10/20/21 10/29/24 Itzel Polk FENCE RIDER DIGITAL PRE PRESS OPERATOR Assigned Heart and Vascular Provider 12/15/21 05/17/22 Carl Farah MD [address] , [address] [address] Assigned Heart and Vascular Provider 05/18/22 12/29/24 Hector Goode MD 909 [facility] [id number] [address] Assigned Neuroscience Provider 07/01/23 12/29/24 Jaclyn Thomason APRN DIGITAL PRE PRESS OPERATOR [address] [place] [address] Nurse Practitioner Geriatric Medicine 02/06/[address] [place] [phone] 02/06/24 02/23/24 Rivas Delcid MD [address] [facility], [address] [place] [address] Assigned Surgical Provider 03/01/24 Gavi Cloud MD [address] [address] Assigned PCP 10/30/24 01/05/25 Blue Mensah MD Assigned Heart and Vascular Provider 12/30/24 Jasmin Maradiaga PA-C [address] , [address] [address] Assigned PCP 01/06/25 documented as of this encounter
--- OUTSIDE RECORDS SUMMARY | 2025-01-07 17:17 | XMS_ITS | Encounter Summary ---
Author Organization [place] Address [address] [place] [address] Care Team Providers Care Grain Scooper Name Role Phone Marcos Sandoval MD Primary Care Provider Unav ailable Hector Goode MD Unavailable John Cancino MD Unavailable [phone] Marcos Sandoval MD Unavailable UnavailKorin Cash MD Unavailable +- 03 Korin Lamb MD Primary Care Provider [phone] Carl Farah MD Unavailable Unavailable Marcos Sandoval MD Unavailable UnavailKorin Cash MD Unavailable [phone] Gavi Cloud MD Unavailable +[phone] Jasmin Maradiaga PA-C Unavailable [phone] Itzel Polk APRN PROOF PLATE MAKER Unavailable Unavailable Carl Farah MD Unavailable Unavailable Jasmin Maradiaga PA-C Primary Care Provid er Gavi Cloud MD Unavailable [phone] Jasmin Maradiaga PA-C Unavailable [phone] Itzel Polk APRN PROOF PLATE MAKER Unavailable Unavailable Carl Farah MD Unavailable Unavailable Hector Goode MD Unavailable Jaclyn Thomason APRN PROOF PLATE MAKER Unavailable [phone] [facility] Rivas Delcid MD Unavailable Gavi Cloud MD Primary Care Provider + [phone] Gavi Cloud MD Unavailable [phone] Blue Mensah MD Unavailable Un available Jasmin Maradiaga PA-C Unavailable + [phone] Encounter Details Date Type Department Care Team (Late st Contact Info) Description 04/27/2004 Office Visit-[facility] Heart [address] [place] [address] Unknown, DoctorMD Social History Tobacco Use Types Packs/Day Years Used Date Smoking Tobacco: Never Alcohol Use Standard Drinks/Week Comments No 0 (1 standard drink = 0.6 oz pur e alcohol) on occ Comments No Sex and Gender Information Value Date Recorded Sex Assigned at Not on file 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. CURRENT DIAGNOSES 1. 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 History of idiopathic cardiomyopathy. The [...] on filedocumented in this encounter Care Teams Grain Scooper Relationship Specialty Start Date End Date Marcos Sandoval MD NO INFO AVAILABLE 10/03/22 PCP - General 03/27/99 08/11/19 Korin Lamb MD [address] [address] PCP - General Family Practice 08/12/19 03/15/21 Jasmin Maradiaga PA-C [address] [address] PCP - General Family Medicine 03/16/21 08/16/24 Gavi Cloud MD [address] [address] PCP - General Family Medicine 08/17/24 Hector Goode MD [id number] [place] [address] Neurology 05/01/17 John Cancino MD [address] [address] [place] [address] Family Medicine - Sports Medicine 07/30/17 Marcos Sandoval MD NO INFO AVAILABLE 10/03/22 Assigned PCP 02/08/18 06/05/19 Korin Lamb MD [address] [address] Assigned PCP 06/06/19 04/29/20 Carl Farah MD Assigned Heart and Vascular Provider 12/31/19 12/16/20 Marcos Sandoval MD NO INFO AVAILABLE 10/03/22 Assigned PCP 04/30/20 05/06/20 Korin Lamb MD [address] [address] Assigned PCP 05/07/20 05/28/20 Gavi Cloud MD [address] [address] Assigned PCP 05/29/20 01/06/21 Jasmin Maradiaga PA-C [address], [address] [place] [address] Assigned PCP 01/07/21 09/28/21 Itzel Polk APRN PROOF PLATE MAKER Assigned Heart and Vascular Provider 12/17/20 02/17/21 Carl Farah MD Assigned Heart and Vascular Provider 02/18/21 12/14/21 Gavi Cloud MD [address] [place] [address] Assigned PCP 09/29/21 10/19/21 Jasmin Maradiaga PA-C [address], [address] [place] [address] Assigned PCP 10/20/21 10/29/24 Itzel Polk APRN PROOF PLATE MAKER Assigned Heart and Vascular Provider 12/15/21 05/17/22 Carl Farah MD [address], [address] [place] [address] Assigned Heart and Vascular Provider 05/18/22 12/29/24 Hector Goode MD [address] [place] [address] [id number], [place] [address] Assigned Neuroscience Provider 07/01/23 12/29/24 Jaclyn Thomason APRN PROOF PLATE MAKER [address] [place] [address] Nurse Practitioner Geriatric Medicine 02/06/[address] [place] [phone] 02/06/24 02/23/24 Rivas Delcid MD [address] [facility], [address] [place] [address] Assigned Surgical Provider 03/01/24 Gavi Cloud MD [address] [address] Assigned PCP 10/30/24 01/05/25 Blue Mensah MD Assigned Heart and Vascular Provider 12/30/24 Jasmin Maradiaga PA-C [address] [address] Assigned PCP 01/06/25 documented as of this encounter
--- OUTSIDE RECORDS SUMMARY | 2025-01-07 17:17 | XMS_ITS | Encounter Summary ---
Author Organization [place] Address [address] [place] [address] Care Team Providers Care Administrator Health Care Facility Name Role Phone Roslyn Sandoval MD Primary Care Provider Unav ailable Hector Goode MD Unavailable John Cancino MD Unavailable [phone] Roslyn Sandoval MD Unavailable UnavailKorin Cash MD Unavailable +- [phone] Korin Lamb MD Primary Care Provider [phone] Carl Farah MD Unavailable Unavailable Roslyn Sandoval MD Unavailable UnavailKorin Cash MD Unavailable [phone] Gavi Cloud MD Unavailable +[phone] Jasmin Maradiaga PA-C Unavailable +[phone] Itzel Polk APRN ELECTROMECHANICAL EQUIPMENT TESTER Unavailable Unavailable Carl Farah MD Unavailable Unavailable Jasmin Maradiaga PA-C Primary Care Provid er Gavi Cloud MD Unavailable +[phone] Jasmin Maradiaga PA-C Unavailable +[phone] Itzel Polk APRN ELECTROMECHANICAL EQUIPMENT TESTER Unavailable Unavailable Carl Farah MD Unavailable Unavailable Hector Goode MD Unavailable Jaclyn Thomason APRN ELECTROMECHANICAL EQUIPMENT TESTER Unavailable [phone], [facility] Unavailable Rivas Delcid MD Unavailable Gavi Cloud MD Primary Care Provider + [phone] Gavi Cloud MD Unavailable +[phone] Blue Mensah MD Unavailable Un available Jasmin Maradiaga PA-C Unavailable + [phone] Encounter Details Date Type Department Care Team (Late st Contact Info) Description 12/01/2004 [facility] [address] [place] [address] [address] [place] [address] Saurav Judge MD XXX RETIRED XXX [address] [facility] [address] [place] [address] CARDIAC DYSRHYTHMIAS NEC; CONGESTIVE HEART [...] on file 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 Gender Identity Not on file Sexual [...] Hypopotassemia documented in this encounter Care Teams Administrator Health Care Facility Relationship Specialty Start Date End Date Roslyn Sandoval MD NO INFO AVAILABLE 10/03/22 PCP - General 03/27/99 08/11/19 Korin Lamb MD [address] , [address] [address] PCP - General Family Practice 08/12/19 03/15/21 Jasmin Maradiaga PA-C [address] , [address] [address] PCP - General Family Medicine 03/16/21 08/16/24 Gavi Cloud MD [address] [address] PCP - General Family Medicine 08/17/24 Hector Goode MD [address] [place] [address] Neurology 05/01/17 John Cancino MD [address] [place] [address] Family Medicine - Sports Medicine 07/30/17 Roslyn Sandoval MD NO INFO AVAILABLE 10/03/22 Assigned PCP 02/08/18 06/05/19 Korin Lamb MD [address] [address] Assigned PCP 06/06/19 04/29/20 Carl Farah MD Assigned Heart and Vascular Provider 12/31/19 12/16/20 Roslyn Sandoval MD NO INFO AVAILABLE 10/03/22 Assigned PCP 04/30/20 05/06/20 Korin Lamb MD [address] , [address] [address] Assigned PCP 05/07/20 05/28/20 Gavi Cloud MD [address] [address] Assigned PCP 05/29/20 01/06/21 Jasmin Maradiaga PA-C [address] , [address] [address] Assigned PCP 01/07/21 09/28/21 Itzel Polk APRN ELECTROMECHANICAL EQUIPMENT TESTER Assigned Heart and Vascular Provider 12/17/20 02/17/21 Carl Farah MD Assigned Heart and Vascular Provider 02/18/21 12/14/21 Gavi Cloud MD [address] [address] Assigned PCP 09/29/21 10/19/21 Jasmin Maradiaga PA-C [address] [address] Assigned PCP 10/20/21 10/29/24 Itzel Polk APRN ELECTROMECHANICAL EQUIPMENT TESTER Assigned Heart and Vascular Provider 12/15/21 05/17/22 Carl Farah MD [address] , [address] [address] Assigned Heart and Vascular Provider 05/18/22 12/29/24 Hector Goode MD [address] [facility] [id number] [address] Assigned Neuroscience Provider 07/01/23 12/29/24 Jaclyn Thomason [employer] ELECTROMECHANICAL EQUIPMENT TESTER [address] [place] [address] Nurse Practitioner Geriatric Medicine 02/06/[address] [place] [id number] [place] [phone] 02/06/24 02/23/24 Rivas Delcid MD [address] [facility], [address] [place] [address] Assigned Surgical Provider 03/01/24 Gavi Cloud MD [address] [address] Assigned PCP 10/30/24 01/05/25 Blue Mensah MD Assigned Heart and Vascular Provider 12/30/24 Jasmin Maradiaga PA-C [address], [address] [address] Assigned PCP 01/06/25 documented as of this encounter
--- OUTSIDE RECORDS SUMMARY | 2025-01-07 17:17 | XMS_ITS | Encounter Summary ---
Author Organization [place] Address [address] [place] [address] Care Team Providers Care Clinical Social Work Aide Name Role Phone Marcos Sandoval MD Primary Care Provider Unav ailable Hector Goode MD Unavailable John Cancino MD Unavailable [phone] Marcos Sandoval MD Unavailable UnavailKorin Cash MD Unavailable +- [phone] Korin Lamb MD Primary Care Provider [phone] Carl Farah MD Unavailable Unavailable Marcos Sandoval MD Unavailable UnavailKorin Cash MD Unavailable [phone] Gavi Cloud MD Unavailable +[phone] Jasmin Maradiaga PA-C Unavailable [phone] Itzel Polk APRN ASSOCIATE BRAND MANAGER Unavailable Unavailable Carl Farah MD Unavailable Unavailable Jasmin Maradiaga PA-C Primary Care Provid er Gavi Cloud MD Unavailable +[phone] Jasmin Maradiaga PA-C Unavailable +[phone] Itzel Polk APRN ASSOCIATE BRAND MANAGER Unavailable Unavailable Carl Farah MD Unavailable Unavailable Hector Goode MD Unavailable Jaclyn Thomason APRN ASSOCIATE BRAND MANAGER Unavailable [phone] [facility] Rivas Delcid MD Unavailable Gavi Cloud MD Primary Care Provider + [phone] Gavi Cloud MD Unavailable [phone] Blue Mensah MD Unavailable Un available Jasmin Maradiaga PA-C Unavailable + [phone] Encounter Details Date Type Department Care Team (Late st Contact Info) Description 04/10/2012 Office Visit-[facility] [address] [place] [address] Carl Farah MD Social History Tobacco Use Types Packs/Day Years Used Date Smoking Tobacco: Never Smokeless Tobacco: Never Alcohol Use Standard Drinks/Week Comments Yes 0 (1 standard drink = 0.6 oz pur e alcohol) VERY RARE Comments No Sex and Gender Information Value Date Recorded Sex Assigned at Not on file 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 DATE: 04/10/2012 GRISELDA LAI DATE OF : 1945 AGE: [age] years old Referring Physician: MARCOS SANDOVAL Referring Clinic: [facility] CURRENT DIAGNOSES 1. - [...] 67-year-old woman. I have seen her for wallyong. I used to see her before that. 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 [employer]AM[employer]ATION [employer] [...] on filedocumented in this encounter Care Teams Clinical Social Work Aide Relationship Specialty Start Date End Date Marcos Sandoval MD NO INFO AVAILABLE 10/03/22 PCP - General 03/27/99 08/11/19 Korin Lamb MD [address], [address] [address] PCP - General Family Practice 08/12/19 03/15/21 Jasmin Maradiaga PA-C [address], [address] [address] PCP - General Family Medicine 03/16/21 08/16/24 Gavi Cloud MD [address] [address] PCP - General Family Medicine 08/17/24 Hector Goode MD [address] [place] [address] Neurology 05/01/17 John Cancino MD [address] [address] Family Medicine - Sports Medicine 07/30/17 Marcos Sandoval MD NO INFO AVAILABLE 10/03/22 Assigned PCP 02/08/18 06/05/19 Korin Lamb MD [address] , [address] [address] Assigned PCP 06/06/19 04/29/20 Carl Farah MD Assigned Heart and Vascular Provider 12/31/19 12/16/20 Marcos Sandoval MD NO INFO AVAILABLE 10/03/22 Assigned PCP 04/30/20 05/06/20 Korin Lamb MD [address], [address] [address] Assigned PCP 05/07/20 05/28/20 Gavi Cloud MD [address] [address] Assigned PCP 05/29/20 01/06/21 Jasmin Maradiaga PA-C [address], [address] [address] Assigned PCP 01/07/21 09/28/21 Itzel Polk APRN ASSOCIATE BRAND MANAGER Assigned Heart and Vascular Provider 12/17/20 02/17/21 Carl Farah MD Assigned Heart and Vascular Provider 02/18/21 12/14/21 Gavi Cloud MD [address] [place] [address] Assigned PCP 09/29/21 10/19/21 Jasmin Maradiaga PA-C [address], [address] [address] Assigned PCP 10/20/21 10/29/24 Itzel Polk APRN ASSOCIATE BRAND MANAGER Assigned Heart and Vascular Provider 12/15/21 05/17/22 Carl Farah MD [address], [address] [address] Assigned Heart and Vascular Provider 05/18/22 12/29/24 Hector Goode MD [address] [facility] [place] [address] Assigned Neuroscience Provider 07/01/23 12/29/24 Jaclyn Thomason APRN ASSOCIATE BRAND MANAGER [address] [place] [address] Nurse Practitioner Geriatric Medicine 02/06/24 4 [facility] [address] [place] [address] 02/06/24 02/23/24 Rivas Delcid MD [address] [facility], [address] [place] [address] Assigned Surgical Provider 03/01/24 Gavi Cloud MD [address] [address] Assigned PCP 10/30/24 01/05/25 Blue Mensah MD Assigned Heart and Vascular Provider 12/30/24 Jasmin Maradiaga PA-C [address], [address] [address] Assigned PCP 01/06/25 documented as of this encounter
--- OUTSIDE RECORDS SUMMARY | 2025-01-07 17:17 | XMS_ITS | Encounter Summary ---
Author Organization [place] Address [address] [place] [address] Care Team Providers Care 3D Animator Name Role Phone Marcos Sandoval MD Primary Care Provider Unav ailable Hector Goode MD Unavailable John Cancino MD Unavailable [phone] Marcos Sandoval MD Unavailable UnavailKorin Cash MD Unavailable +- [phone] Korin Lamb MD Primary Care Provider [phone] Carl Farah MD Unavailable Unavailable Marcos Sandoval MD Unavailable UnavailKorin Cash MD Unavailable [phone] Gavi Cloud MD Unavailable +[phone] Jasmin Maradiaga PA-C Unavailable [phone] Itzel Polk APRN CLIPPER OPERATOR Unavailable Unavailable Carl Farah MD Unavailable Unavailable Jasmin Maradiaga PA-C Primary Care Provid er Gavi Cloud MD Unavailable [phone] Jasmin Maradiaga PA-C Unavailable [phone] Itzel Polk APRN CLIPPER OPERATOR Unavailable Unavailable Carl Farah MD Unavailable Unavailable Hector Goode MD Unavailable Jaclyn Thomason APRN CLIPPER OPERATOR Unavailable [phone] Rivas Delcid MD Unavailable Gavi Cloud MD Primary Care Provider + [phone] Gavi Cloud MD Unavailable [phone] Blue Mensah MD Unavailable Un available Jasmin Maradiaga PA-C Unavailable + [phone] Encounter Details Date Type Department Care Team (Late st Contact Info) Description 02/07/2005 Office Visit-[facility] Heart [address] [place] [address] Unknown, DoctorMD Social History Tobacco Use Types Packs/Day Years Used Date Smoking Tobacco: Never Alcohol Use Standard Drinks/Week Comments No 0 (1 standard drink = 0.6 oz pur e alcohol) on occ Comments No Sex and Gender Information Value Date Recorded Sex Assigned at Not on file Legal Sex Female 2:58 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 DATE: 02/07/2005 GRISELDA LAI DATE OF : 1945 AGE: [age] years old Referring Physician: MARCOS SANDOVAL Referring Clinic: [facility]. CURRENT DIAGNOSES 1. - Congestive [...] was performed. The patient was hospitalized at [facility] with a presumptive tachyarrhythmia with low [...] history;Residence - lives alone; Place of - [place]; Hours Worked - 40 hours per week; [...] skin irritation and rash. She sees a operations manager station although it is still present and stable. I do not think it is from any of her medications and in fact her operations manager station thought it was due to metals. Total [...] on filedocumented in this encounter Care Teams 3D Animator Relationship Specialty Start Date End Date Marcos Sandoval MD NO INFO AVAILABLE 10/03/22 PCP - General 03/27/99 08/11/19 Korin Lamb MD [address], [address] [address] PCP - General Family Practice 08/12/19 03/15/21 Jasmin Maradiaga PA-C [address], [address] [address] PCP - General Family Medicine 03/16/21 08/16/24 Gavi Cloud MD [address] [address] PCP - General Family Medicine 08/17/24 Hector Goode MD [address] [id number] [address] Neurology 05/01/17 John Cancino MD [address] [address] Family Medicine - Sports Medicine 07/30/17 Marcos Sandoval MD NO INFO AVAILABLE 10/03/22 Assigned PCP 02/08/18 06/05/19 Korin Lamb MD [address] , [address] [address] Assigned PCP 06/06/19 04/29/20 Carl Farah MD Assigned Heart and Vascular Provider 12/31/19 12/16/20 Marcos Sandoval MD NO INFO AVAILABLE 10/03/22 Assigned PCP 04/30/20 05/06/20 Korin Lamb MD [address], [address] [address] Assigned PCP 05/07/20 05/28/20 Gavi Cloud MD [address] [address] Assigned PCP 05/29/20 01/06/21 Jasmin Maradiaga PA-C [address], [address] [address] Assigned PCP 01/07/21 09/28/21 Itzel Polk APRN CLIPPER OPERATOR Assigned Heart and Vascular Provider 12/17/20 02/17/21 Carl Farah MD Assigned Heart and Vascular Provider 02/18/21 12/14/21 Gavi Cloud MD [address] [place] [address] Assigned PCP 09/29/21 10/19/21 Jasmin Maradiaga PA-C [address], [address] [address] Assigned PCP 10/20/21 10/29/24 Itzel Polk APRN CLIPPER OPERATOR Assigned Heart and Vascular Provider 12/15/21 05/17/22 Carl Farah MD [address], [address] [address] Assigned Heart and Vascular Provider 05/18/22 12/29/24 Hector Goode MD [address] [facility] [place] [address] Assigned Neuroscience Provider 07/01/23 12/29/24 Jaclyn Thomason APRN CLIPPER OPERATOR [address] [place] [address] Nurse Practitioner Geriatric Medicine 02/06/24 4 [facility] [address] [place] [address] 02/06/24 02/23/24 Rivas Delcid MD [address] [facility], [address] [place] [address] Assigned Surgical Provider 03/01/24 Gavi Cloud MD [address] [address] Assigned PCP 10/30/24 01/05/25 Blue Mensah MD Assigned Heart and Vascular Provider 12/30/24 Jasmin Maradiaga PA-C [address], [address] [address] Assigned PCP 01/06/25 documented as of this encounter
--- OUTSIDE RECORDS SUMMARY | 2025-01-07 17:17 | XMS_ITS | Encounter Summary ---
Author Organization [place] Address [address] [place] [address] Care Team Providers Care Industrial Maintenance Instructor Name Role Phone Marcos Sandoval MD Primary Care Provider Unav ailable Hector Goode MD Unavailable John Cancino MD Unavailable [phone] Marcos Sandoval MD Unavailable UnavailKorin Cash MD Unavailable +- [phone] Korin Lamb MD Primary Care Provider [phone] Carl Farah MD Unavailable Unavailable Marcos Sandoval MD Unavailable UnavailKorin Cash MD Unavailable [phone] Gavi Cloud MD Unavailable +[phone] Jasmin Maradiaga PA-C Unavailable +[phone] Itzel Polk APRN SUPERVISOR AIR CONDITIONING INSTALLER Unavailable Unavailable Carl Farah MD Unavailable Unavailable Jasmin Maradiaga PA-C Primary Care Provid er Gavi Cloud MD Unavailable [phone] Jasmin Maradiaga PA-C Unavailable +[phone] Itzel Polk APRN SUPERVISOR AIR CONDITIONING INSTALLER Unavailable Unavailable Carl Farah MD Unavailable Unavailable Hector Goode MD Unavailable Jaclyn Thomason APRN SUPERVISOR AIR CONDITIONING INSTALLER Unavailable [phone] [facility] Unavailable Rivas Delcid MD Unavailable Gavi Cloud MD Primary Care Provider + [phone] Gavi Cloud MD Unavailable [phone] Blue Mensah MD Unavailable Un available Jasmin Maradiaga PA-C Unavailable + [phone] Encounter Details Date Type Department Care Team (Late st Contact Info) Description 03/19/2011 Office Visit-[facility] Heart [address] [place] [address] Carl Farah MD Social History Tobacco Use Types Packs/Day Years Used Date Smoking Tobacco: Never Smokeless Tobacco: Never Alcohol Use Standard Drinks/Week Comments No 0 (1 standard drink = 0.6 oz pur e alcohol) Comments No Sex and Gender Information Value Date Recorded Sex Assigned at Not on file Legal Sex Female 2:58 AM RELIGIOUS EDUCATION 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 DATE: 03/19/2011 GRISELDA LAI DATE OF : 1945 AGE: [age] years old Referring Physician: MARCOS SANDOVAL Referring Clinic: [facility] CURRENT DIAGNOSES 1. 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, [...] on filedocumented in this encounter Care Teams Industrial Maintenance Instructor Relationship Specialty Start Date End Date Marcos Sandoval MD NO INFO AVAILABLE 10/03/22 PCP - General 03/27/99 08/11/19 Korin Lamb MD [address], [facility] [address] [place] [address] PCP - General Family Practice 08/12/19 03/15/21 Jasmin Maradiaga PA-C [address], [address] [place] [address] PCP - General Family Medicine 03/16/21 08/16/24 Gavi Cloud MD [address] [address] PCP - General Family Medicine 08/17/24 Hector Goode MD [address] [address] Neurology 05/01/17 John Cancino MD [address] [address] Family Medicine - Sports Medicine 07/30/17 Marcos Sandoval MD NO INFO AVAILABLE 10/03/22 Assigned PCP 02/08/18 06/05/19 Korin Lamb MD [address] [address] Assigned PCP 06/06/19 04/29/20 Carl Farah MD Assigned Heart and Vascular Provider 12/31/19 12/16/20 Marcos Sandoval MD NO INFO AVAILABLE 10/03/22 Assigned PCP 04/30/20 05/06/20 Korin Lamb MD [address] [address] Assigned PCP 05/07/20 05/28/20 Gavi Cloud MD [address] [address] Assigned PCP 05/29/20 01/06/21 Jasmin Maradiaga PA-C [address], [address] [place] [address] Assigned PCP 01/07/21 09/28/21 Itzel Polk APRN SUPERVISOR AIR CONDITIONING INSTALLER Assigned Heart and Vascular Provider 12/17/20 02/17/21 Carl Farah MD Assigned Heart and Vascular Provider 02/18/21 12/14/21 Gavi Cloud MD [address] [place] [address] Assigned PCP 09/29/21 10/19/21 Jasmin Maradiaga PA-C [address], [address] [place] [address] Assigned PCP 10/20/21 10/29/24 Itzel Polk APRN SUPERVISOR AIR CONDITIONING INSTALLER Assigned Heart and Vascular Provider 12/15/21 05/17/22 Carl Farah MD [address], [address] [address] Assigned Heart and Vascular Provider 05/18/22 12/29/24 Hector Goode MD [address]09 [facility] [id number] [place] [address] Assigned Neuroscience Provider 07/01/23 12/29/24 Jaclyn Thomason APRN SUPERVISOR AIR CONDITIONING INSTALLER [address] [place] [address] Nurse Practitioner Geriatric Medicine 02/06/24 4 [facility] [address] [place] [phone] 02/06/24 02/23/24 Rivas Delcid MD 6405 [facility], [address] [place], [place] [address] Assigned Surgical Provider 03/01/24 Gavi Cloud MD [address] [address] Assigned PCP 10/30/24 01/05/25 Blue Mensah MD Assigned Heart and Vascular Provider 12/30/24 Jasmin Maradiaga PA-C [address], [address] [address] Assigned PCP 01/06/25 documented as of this encounter
--- OUTSIDE RECORDS SUMMARY | 2025-01-07 17:17 | XMS_ITS | Encounter Summary ---
Author Organization [place] Address [address] [place] [address] Care Team Providers Care Icing And Glaze Maker Name Role Phone Marcos Sandoval MD Primary Care Provider Unav ailable Hector Goode MD Unavailable John Cancino MD Unavailable [phone] Marcos Sandoval MD Unavailable UnavailKorin Cash MD Unavailable +- [phone] Korin Lamb MD Primary Care Provider [phone] Carl Farah MD Unavailable Unavailable Marcos Sandoval MD Unavailable UnavailKorin Cash MD Unavailable [phone] Gavi Cloud MD Unavailable +[phone] Jasmin Maradiaga PA-C Unavailable +[phone] Itzel Polk APRN FEED MILL MANAGER Unavailable Unavailable Carl Farah MD Unavailable Unavailable Jasmin Maradiaga PA-C Primary Care Provid er Gavi Cloud MD Unavailable [phone] Jasmin Maradiaga PA-C Unavailable +[phone] Itzel Polk APRN FEED MILL MANAGER Unavailable Unavailable Carl Farah MD Unavailable Unavailable Hector Goode MD Unavailable Jaclyn Thomason APRN FEED MILL MANAGER Unavailable [phone] Gil [facility] Unavailable Rivas Delcid MD Unavailable Gavi Cloud MD Primary Care Provider + [phone] Gavi Cloud MD Unavailable [phone] Blue Mensah MD Unavailable Un available Jasmin Maradiaga PA-C Unavailable + [phone] Encounter Details Date Type Department Care Team (Late st Contact Info) Description 08/24/2004 Office Visit-[facility] Heart [address] [place] [address] Unknown, DoctorMD Social History Tobacco Use Types Packs/Day Years Used Date Smoking Tobacco: Never Alcohol Use Standard Drinks/Week Comments No 0 (1 standard drink = 0.6 oz pur e alcohol) on occ Comments No Sex and Gender Information Value Date Recorded Sex Assigned at Not on file 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 CURRENT DIAGNOSES 1. - Congestive Heart [...] Residence - lives alone; Place of - [place]; Hours Worked - 40 hours per week; Spouse's Oc cupation - disabled; PHYSICAL EXAMINATION VITAL SIGNS: Blood Pressure: 120/62 Sitting, Left arm, large cuff 104/63 Retaken by PRESIDENT AND CHIEF COMMERCIAL OFFICER/PA Pulse- 68.00/min. Weight- 266.00 lbs. Height- 65.00 [...] Scheduled Procedures Name Priority Associated Diagnoses Date/Ti fl ENDOSCOPIC RETROGRADE CHOLANGIOPANCREATOGRAPHY, COMPLEX Cholecystitis Choledocholithiasis with acute cholecystitis documented as of this encounter Visit Diagnoses Not on filedocumented in this encounter Care Teams Icing And Glaze Maker Relationship Specialty Start Date End Date Marcos Sandoval MD NO INFO AVAILABLE 10/03/22 PCP - General 03/27/99 08/11/19 Korin Lamb MD [address] [address] PCP - General Family Practice 08/12/19 03/15/21 Jasmin Maradiaga PA-C [address] , [address] [address] PCP - General Family Medicine 03/16/21 08/16/24 Gavi Cloud MD [address] [address] PCP - General Family Medicine 08/17/24 Hector Goode MD [address] [place] [address] Neurology 05/01/17 John Cancino MD [address] [address]30[address] Family Medicine - Sports Medicine 07/30/17 Marcos Sandoval MD NO INFO AVAILABLE 10/03/22 Assigned PCP 02/08/18 06/05/19 Korin Lamb MD [address] [place] [address] Assigned PCP 06/06/19 04/29/20 Carl Farah MD Assigned Heart and Vascular Provider 12/31/19 12/16/20 Marcos Sandoval MD NO INFO AVAILABLE 10/03/22 Assigned PCP 04/30/20 05/06/20 Korin Lamb MD [address], [address] [place] [address] Assigned PCP 05/07/20 05/28/20 Gavi Cloud MD [address] [place] [address], [place] [address] Assigned PCP 05/29/20 01/06/21 Jasmin Maradiaga PA-C [address] [place] [address] Assigned PCP 01/07/21 09/28/21 Itzel Polk APRN CNP Assigned Heart and Vascular Provider 12/17/20 02/17/21 Carl Farah MD Assigned Heart and Vascular Provider 02/18/21 12/14/21 Gavi Cloud MD [address] [place] [address] Assigned PCP 09/29/21 10/19/21 Jasmin Maradiaga PA-C [address] , [address] [address] Assigned PCP 10/20/21 10/29/24 Itzel Polk APRN FEED MILL MANAGER Assigned Heart and Vascular Provider 12/15/21 05/17/22 Carl Farah MD [address] , [address] [address] Assigned Heart and Vascular Provider 05/18/22 12/29/24 Hector Goode MD 909 [facility] [place] [address] Assigned Neuroscience Provider 07/01/23 12/29/24 Jaclyn Thomason APRN FEED MILL MANAGER [address] [place] [address] Nurse Practitioner Geriatric Medicine 02/06/24 [facility], [facility] [address] [place] [phone] 02/06/24 02/23/24 Rivas Delcid MD 6405 [facility], [facility] [address] [place] [address] Assigned Surgical Provider 03/01/24 Gavi Cloud MD [address] [address] Assigned PCP 10/30/24 01/05/25 Blue Mensah MD Assigned Heart and Vascular Provider 12/30/24 Jasmin Maradiaga PA-C [address] [facility] [address] [place] [address] Assigned PCP 01/06/25 documented as of this encounter
--- OUTSIDE RECORDS SUMMARY | 2025-01-07 17:18 | XMS_ITS | Encounter Summary ---
Author Organization [place] Address [address] [place] [address] Care Team Providers Care Chief Digital Officer Name Role Phone Roslyn Sandoval MD Primary Care Provider Unav ailable Hector Goode MD Unavailable John Cancino MD Unavailable [phone] Roslyn Sandoval MD Unavailable UnavailKorin Cash MD Unavailable +- 03 Korin Lamb MD Primary Care Provider [phone] Carl Farah MD Unavailable Unavailable Roslyn Sandoval MD Unavailable UnavailKorin Cash MD Unavailable [phone] Gavi Cloud MD Unavailable +[phone] Jasmin Maradiaga PA-C Unavailable [phone] Itzel Polk APRN EXCAVATOR OPERATOR Unavailable Unavailable Carl Farah MD Unavailable Unavailable Jasmin Maradiaga PA-C Primary Care Provid er Gavi Cloud MD Unavailable [phone] Jasmin Maradiaga PA-C Unavailable [phone] Itzel Polk APRN EXCAVATOR OPERATOR Unavailable Unavailable Carl Farah MD Unavailable Unavailable Hector Goode MD Unavailable Jaclyn Thomason APRN EXCAVATOR OPERATOR Unavailable [phone], [facility] Unavailable Rivas Delcid MD Unavailable Gavi Cloud MD Primary Care Provider + [phone] Gavi Cloud MD Unavailable [phone] Blue Mensah MD Unavailable Un available Jasmin Maradiaga PA-C Unavailable + [phone] Encounter Details Date Type Department Care Team (Late st Contact Info) Description 11/23/2003 Abstract [facility] [address] [place] [address] Abstract, Provider ABSTRACTING RESULTS (Primary Dx) Social History Tobacco Use Types Packs/Day Years Used Date Smoking Tobacco: Never Alcohol Use Standard Drinks/Week Comments No 0 (1 standard drink = 0.6 oz pur e alcohol) on occ Comments No Sex and Gender Information Value Date Recorded Sex Assigned at Not on file 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 Gender Identity Not on file [...] Abstract LABORATORY Final Result [facility] [address] [place] [address] documented in this encounter Visit Diagnoses Diagnosis ABSTRACTING RESULTS- Primary documented in this encounter Care Teams Chief Digital Officer Relationship Specialty Start Date End Date Roslyn Sandoval MD NO INFO AVAILABLE 10/03/22 PCP - General 03/27/99 08/11/19 Korin Lamb MD [address] , [address] [address] PCP - General Family Practice 08/12/19 03/15/21 Jasmin Maradiaga PA-C [address] [address] PCP - General Family Medicine 03/16/21 08/16/24 Gavi Cloud MD [address] [address] PCP - General Family Medicine 08/17/24 Hector Goode MD [address] [place] [address] Neurology 05/01/17 John Cancino MD [address] [place] [address] Family Medicine - Sports Medicine 07/30/17 Roslyn Sandoval MD NO INFO AVAILABLE 10/03/22 Assigned PCP 02/08/18 06/05/19 Korin Lamb MD [address] [address] Assigned PCP 06/06/19 04/29/20 Carl Farah MD Assigned Heart and Vascular Provider 12/31/19 12/16/20 Roslyn Sandoval MD NO INFO AVAILABLE 10/03/22 Assigned PCP 04/30/20 05/06/20 Korin Lamb MD [address], [facility] [address] [place] [address] Assigned PCP 05/07/20 05/28/20 Gavi Cloud MD [address] [place] [address] Assigned PCP 05/29/20 01/06/21 Jasmin Maradiaga PA-C [address], [facility] [address] [place] [address] Assigned PCP 01/07/21 09/28/21 Itzel Polk APRN EXCAVATOR OPERATOR Assigned Heart and Vascular Provider 12/17/20 02/17/21 Carl Farah MD Assigned Heart and Vascular Provider 02/18/21 12/14/21 Gavi Cloud MD [address] [place] [address] Assigned PCP 09/29/21 10/19/21 Jasmin Maradiaga PA-C [address], [address] [place] [address] Assigned PCP 10/20/21 10/29/24 Itzel Polk APRN EXCAVATOR OPERATOR Assigned Heart and Vascular Provider 12/15/21 05/17/22 Carl Farah MD [address], [address] [place] [address] Assigned Heart and Vascular Provider 05/18/22 12/29/24 Hector Goode MD [address] [facility] [id number] [place] [address] Assigned Neuroscience Provider 07/01/23 12/29/24 Katelin Jaclyn EDELMIRA [place] EXCAVATOR OPERATOR [address] [place] [address] Nurse Practitioner Geriatric Medicine 02/06/24 4 [facility] [address] [place] [phone] 02/06/24 02/23/24 Rivas Delcid MD 6405 [facility], [address] [place] [address] Assigned Surgical Provider 03/01/24 Gavi Cloud MD [address] [address] Assigned PCP 10/30/24 01/05/25 Blue Mensah MD Assigned Heart and Vascular Provider 12/30/24 Jasmin Maradiaga PA-C [address], [address] [address] Assigned PCP 01/06/25 documented as of this encounter
--- OUTSIDE RECORDS SUMMARY | 2025-01-07 17:18 | XMS_ITS | Encounter Summary ---
Author Organization [place] Address [address] [place] [address] Care Team Providers Care Scrubber System Attendant Name Role Phone Marcos Sandoval MD Primary Care Provider Unav ailable Hector Goode MD Unavailable John Cancino MD Unavailable [phone] Marcos Sandoval MD Unavailable UnavailKorin Cash MD Unavailable +- [phone] Korin Lamb MD Primary Care Provider [phone] Carl Farah MD Unavailable Unavailable Marcos Sandoval MD Unavailable UnavailKorin Cash MD Unavailable [phone] Gavi Cloud MD Unavailable +[phone] Jasmin Maradiaga PA-C Unavailable [phone] Itzel Polk APRN FILLING STATION LABORER Unavailable Unavailable Carl Farah MD Unavailable Unavailable Jasmin Maradiaga PA-C Primary Care Provid er Gavi Cloud MD Unavailable [phone] Jasmin Maradiaga PA-C Unavailable [phone] Itzel Polk APRN FILLING STATION LABORER Unavailable Unavailable Carl Farah MD Unavailable Unavailable Hector Goode MD Unavailable Jaclyn Thomason APRN FILLING STATION LABORER Unavailable [phone] uma [facility] Unavailable Rivas Delcid MD Unavailable Gavi Cloud MD Primary Care Provider + [phone] Gavi Cloud MD Unavailable [phone] Blue Mensah MD Unavailable Un available Jasmin Maradiaga PA-C Unavailable + [phone] Encounter Details Date Type Department Care Team (Late st Contact Info) Description 12/10/2007 Office Visit-[facility] Heart [address] [place] [address] Carl Farah MD Social History Tobacco Use Types Packs/Day Years Used Date Smoking Tobacco: Never Alcohol Use Standard Drinks/Week Comments No 0 (1 standard drink = 0.6 oz pur e alcohol) Comments No Sex and Gender Information Value Date Recorded Sex Assigned at Not on file Legal Sex Female 2:58 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 DATE: 12/10/2007 GRISELDA LAI DATE OF : 1945 AGE: [age] years old Referring Physician: MARCOS SANDOVAL Referring Clinic: [facility] CURRENT DIAGNOSES 1. - Cardiomyopathy Idiopathic, [...] machine[facility] 02-12, hyperlipidemia Past Cardiac Illnesses: [...] on filedocumented in this encounter Care Teams Scrubber System Attendant Relationship Specialty Start Date End Date Marcos Sandoval MD NO INFO AVAILABLE 10/03/22 PCP - General 03/27/99 08/11/19 Korin Lamb MD [address] [address] PCP - General Family Practice 08/12/19 03/15/21 Jasmin Maradiaga PA-C [address] [address] PCP - General Family Medicine 03/16/21 08/16/24 Gavi Cloud MD [address] [address] PCP - General Family Medicine 08/17/24 Hector Goode MD [id number] [place] [address] Neurology 05/01/17 John Cancino MD [id number] [place] [address] Family Medicine - Sports Medicine 07/30/17 Marcos Sandoval MD NO INFO AVAILABLE 10/03/22 Assigned PCP 02/08/18 06/05/19 Korin Lamb MD [address] [address] Assigned PCP 06/06/19 04/29/20 Carl Farah MD Assigned Heart and Vascular Provider 12/31/19 12/16/20 Marcos Sandoval MD NO INFO AVAILABLE 10/03/22 Assigned PCP 04/30/20 05/06/20 Korin Lamb MD [address] [address] Assigned PCP 05/07/20 05/28/20 Gavi Cloud MD [address] [address] Assigned PCP 05/29/20 01/06/21 Jasmin Maradiaga PA-C [address], [address] [place] [address] Assigned PCP 01/07/21 09/28/21 Itzel Polk APRN FILLING STATION LABORER Assigned Heart and Vascular Provider 12/17/20 02/17/21 Carl Farah MD Assigned Heart and Vascular Provider 02/18/21 12/14/21 Gavi Cloud MD [address] [place] [address] Assigned PCP 09/29/21 10/19/21 Jasmin Maradiaga PA-C [address], [address] [address] Assigned PCP 10/20/21 10/29/24 Itzel Polk APRN FILLING STATION LABORER Assigned Heart and Vascular Provider 12/15/21 05/17/22 Carl Farah MD [address], [address] [address] Assigned Heart and Vascular Provider 05/18/22 12/29/24 Hector Goode MD [address] [place] [address] [id number] [address] Assigned Neuroscience Provider 07/01/23 12/29/24 Jaclyn Thomason APRN FILLING STATION LABORER [address] [place] [address] Nurse Practitioner Geriatric Medicine 02/06/[address] [place] [phone] 02/06/24 02/23/24 Rivas Delcid MD 6405 [facility], [address] [place] [address] Assigned Surgical Provider 03/01/24 Gavi Cloud MD [address] [address] Assigned PCP 10/30/24 01/05/25 Blue Mensah MD Assigned Heart and Vascular Provider 12/30/24 Jasmin Maradiaga PA-C [address] [address] Assigned PCP 01/06/25 documented as of this encounter
--- OUTSIDE RECORDS SUMMARY | 2025-01-07 17:18 | XMS_ITS | Encounter Summary ---
Author Organization [facility] Address [address] [place] [address] Care Team Providers Care Manager Mobile Name Role Phone Roslyn Sandoval MD Primary Care Provider Unav ailable Hector Goode MD Unavailable John Cancino MD Unavailable [phone] Roslyn Sandoval MD Unavailable UnavailKorin Cash MD Unavailable +- 03 Korin Lamb MD Primary Care Provider [phone] Carl Farah MD Unavailable Unavailable Roslyn Sandoval MD Unavailable UnavailKorin Cash MD Unavailable [phone] Gavi Cloud MD Unavailable +[phone] Jasmin Maradiaga PA-C Unavailable [phone] Itzel Polk APRN LUGGAGE REPAIRER Unavailable Unavailable Carl Farah MD Unavailable Unavailable Jasmin Maradiaga PA-C Primary Care Provid er Gavi Cloud MD Unavailable [phone] Jasmin Maradiaga PA-C Unavailable +[phone] Itzel Polk APRN LUGGAGE REPAIRER Unavailable Unavailable Carl Farah MD Unavailable Unavailable Hector Goode MD Unavailable Jaclyn Thomason APRN LUGGAGE REPAIRER Unavailable [phone] uma [facility] Unavailable Rivas Delcid MD Unavailable Gavi Cloud MD Primary Care Provider + [phone] Gavi Cloud MD Unavailable [phone] Blue Mensah MD Unavailable Un available Jasmin Maradiaga PA-C Unavailable + [phone] Reason for Visit * Reason Comments Medication Refill Encounter Details Date Type Department Care Team (Late st Contact Info) Description 06/04/2019 Refill [facility] [address] [place] [address] Roslyn Sandoval MD NO INFO [...] on file 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 Routing to cellulose insulation helper provider Dr. Lamb for review, are you able to resend this in for the patient? documented in this encounter Plan of Treatment Scheduled Procedures Name Priority Associated Diagnoses Date/Ti me ENDOSCOPIC RETROGRADE CHOLANGIOPANCREATOGRAPHY, COMPLEX Cholecystitis Choledocholithiasis with acute cholecystitis documented as of this encounter Visit Diagnoses Diagnosis Chronic pain syndrome documented in this encounter Care Teams Manager Mobile Relationship Specialty Start Date End Date Roslyn Sandoval MD NO INFO AVAILABLE 10/03/22 PCP - General 03/27/99 08/11/19 Korin Lamb MD [address] [address] PCP - General Family Practice 08/12/19 03/15/21 Jasmin Maradiaga PA-C [address] [address] PCP - General Family Medicine 03/16/21 08/16/24 Gavi Cloud MD [address] [address] PCP - General Family Medicine 08/17/24 Hector Goode MD [address] [place] [address] Neurology 05/01/17 John Cancino MD [address] [place] [address] Family Medicine - Sports Medicine 07/30/17 Roslyn Sandoval MD NO INFO AVAILABLE 10/03/22 Assigned PCP 02/08/18 06/05/19 Korin Lamb MD [address], [address] [address] Assigned PCP 06/06/19 04/29/20 Carl Farah MD Assigned Heart and Vascular Provider 12/31/19 12/16/20 Roslyn Sandoval MD NO INFO AVAILABLE 10/03/22 Assigned PCP 04/30/20 05/06/20 Korin Lamb MD [address], [address] [address] Assigned PCP 05/07/20 05/28/20 Gavi Cloud MD [address] [address] Assigned PCP 05/29/20 01/06/21 Jasmin Maradiaga PA-C [address], [address] [address] Assigned PCP 01/07/21 09/28/21 Itzel Polk APRN CNP Assigned Heart and Vascular Provider 12/17/20 02/17/21 Carl Farah MD Assigned Heart and Vascular Provider 02/18/21 12/14/21 Gavi Cloud MD [address] [address] Assigned PCP 09/29/21 10/19/21 Jasmin Maradiaga PA-C [address] [address] Assigned PCP 10/20/21 10/29/24 Itzel Polk APRN LUGGAGE REPAIRER Assigned Heart and Vascular Provider 12/15/21 05/17/22 Carl Farah MD [address] [address] Assigned Heart and Vascular Provider 05/18/22 12/29/24 Hector Goode MD [address] [facility] [address] Assigned Neuroscience Provider 07/01/23 12/29/24 Jaclyn Thomason APRN LUGGAGE REPAIRER [address] [place] [address] Nurse Practitioner Geriatric Medicine 02/06/24 4 [facility], [address] [phone] 02/06/24 02/23/24 Rivas Delcid MD [address] [facility], [facility] [address] [place] [address] Assigned Surgical Provider 03/01/24 Gavi Cloud MD [address] [address] Assigned PCP 10/30/24 01/05/25 Blue Mensah MD Assigned Heart and Vascular Provider 12/30/24 Jasmin Maradiaga PA-C [address], [address] [place] [address] Assigned PCP 01/06/25 documented as of this encounter
--- OUTSIDE RECORDS SUMMARY | 2025-01-07 17:18 | XMS_ITS | Encounter Summary ---
Author Organization [place] Address [address] [place] [address] Care Team Providers Care Powertrain Design Engineer Name Role Phone Marcos Sandoval MD Primary Care Provider Unav ailable Hector Goode MD Unavailable John Cancino MD Unavailable [phone] Marcos Sandoval MD Unavailable UnavailKorin Cash MD Unavailable +- [phone] Korin Lamb MD Primary Care Provider [phone] Carl Farah MD Unavailable Unavailable Marcos Sandoval MD Unavailable UnavailKorin Cash MD Unavailable [phone] Gavi Cloud MD Unavailable +[phone] Jasmin Maradiaga PA-C Unavailable [phone] Ian Polk APRN TAKER OUT Unavailable Unavailable Carl Farah MD Unavailable Unavailable Jasmin Maradiaga PA-C Primary Care Provid er Gavi Cloud MD Unavailable [phone] Jasmin Maradiaga PA-C Unavailable [phone] Ian Polk APRN TAKER OUT Unavailable Unavailable Carl Farah MD Unavailable Unavailable Hector Goode MD Unavailable Jaclyn Thomsaon APRN TAKER OUT Unavailable [phone] [facility] Rivas Delcid MD Unavailable Gavi Cloud MD Primary Care Provider + [phone] Gavi Cloud MD Unavailable [phone] Blue Mensah MD Unavailable Un available Jasmin Maradiaga PA-C Unavailable + [phone] Encounter Details Date Type Department Care Team (Late st Contact Info) Description 01/10/2009 Office Visit-[facility] [address] [place] [address] Carl Farah MD Social History Tobacco Use Types Packs/Day Years Used Date Smoking Tobacco: Never Alcohol Use Standard Drinks/Week Comments No 0 (1 standard drink = 0.6 oz pur e alcohol) Comments No Sex and Gender Information Value Date Recorded Sex Assigned at Not on file 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 DATE: 01/10/2009 GRISELDA LAI DATE OF : 1945 AGE: [age] years old Referring Physician: MARCOS SANDOVAL Referring Clinic: [facility] CURRENT DIAGNOSES 1. Myalgia And Myositis [...] asthma, CPAP machine, MRA/MRI of head at [facility] coumadin stopped 02-12, hyperlipidemia Past Cardiac Illnesses: [...] on filedocumented in this encounter Care Teams Powertrain Design Engineer Relationship Specialty Start Date End Date Marcos Sandoval MD NO INFO AVAILABLE 10/03/22 PCP - General 03/27/99 08/11/19 Korin Lamb MD [address] [address] PCP - General Family Practice 08/12/19 03/15/21 Jasmin Maradiaga PA-C [address] [address] PCP - General Family Medicine 03/16/21 08/16/24 Gavi Cloud MD [address] [address] PCP - General Family Medicine 08/17/24 Hector Goode MD [address] [address] Neurology 05/01/17 John Cancino MD [address] 878835 Family Medicine - Sports Medicine 07/30/17 Marcos Sandoval MD NO INFO AVAILABLE 10/03/22 Assigned PCP 02/08/18 06/05/19 Korin Lamb MD [address] [address] Assigned PCP 06/06/19 04/29/20 Carl Farah MD Assigned Heart and Vascular Provider 12/31/19 12/16/20 Marcos Sandoval MD NO INFO AVAILABLE 10/03/22 Assigned PCP 04/30/20 05/06/20 Korin Lamb MD [address] [place] [address] Assigned PCP 05/07/20 05/28/20 Gavi Cloud MD [address] [place] [address] Assigned PCP 05/29/20 01/06/21 Jasmin Maradiaga PA-C [address] [place] [address] Assigned PCP 01/07/21 09/28/21 Ian Polk APRN TAKER OUT Assigned Heart and Vascular Provider 12/17/20 02/17/21 Carl Farah MD Assigned Heart and Vascular Provider 02/18/21 12/14/21 Gavi Cloud MD [address] [place] [address] Assigned PCP 09/29/21 10/19/21 Jasmin Maradiaga PA-C [address] [place] [address] Assigned PCP 10/20/21 10/29/24 Ian Polk APRN TAKER OUT Assigned Heart and Vascular Provider 12/15/21 05/17/22 Carl Farah MD [address], [address] [place] [address] Assigned Heart and Vascular Provider 05/18/22 12/29/24 Hector Goode MD [address] [place], [place] [address] [place] [address] Assigned Neuroscience Provider 07/01/23 12/29/24 Jaclyn Thomason APRN TAKER OUT [address] [place] [address] Nurse Practitioner Geriatric Medicine 02/06/[address] [place] [address] [place] [id number] 02/06/24 02/23/24 Rivas Delcid MD [address] [facility], [address] [place] [address] Assigned Surgical Provider 03/01/24 Gavi Cloud MD [address] [address] Assigned PCP 10/30/24 01/05/25 Blue Mensah MD Assigned Heart and Vascular Provider 12/30/24 Jasmin Maradiaga PA-C [address], [address] [address] Assigned PCP 01/06/25 documented as of this encounter
--- OUTSIDE RECORDS SUMMARY | 2025-01-07 17:18 | XMS_ITS | Encounter Summary ---
Author Organization [facility] Address [address] [place] [address] Care Team Providers Care Track And Field Coach Name Role Phone Marcos Sandoval MD Primary Care Provider Unav ailable Hector Goode MD Unavailable John Cancino MD Unavailable [phone] aMrcos Sandoval MD Unavailable UnavailKorin Cash MD Unavailable +- [phone] Korin Lamb MD Primary Care Provider [phone] Carl Farah MD Unavailable Unavailable Marcos Sandoval MD Unavailable UnavailKorin Cash MD Unavailable [phone] Gavi Cloud MD Unavailable +[phone] Jasmin Maradiaga PA-C Unavailable [phone] Ian Polk APRN ZIPPER SETTER LOCKSTITCH Unavailable Unavailable Carl Fraah MD Unavailable Unavailable Jasmin Maradiaga PA-C Primary Care Provid er aGvi Cloud MD Unavailable [phone] Jasmin Maradiaga PA-C Unavailable [phone] Ian Polk APRN ZIPPER SETTER LOCKSTITCH Unavailable Unavailable Carl Farah MD Unavailable Unavailable Hector Goode MD Unavailable Jaclyn Thomason APRN ZIPPER SETTER LOCKSTITCH Unavailable [phone] [facility] Unavailable Rivas Delcid MD Unavailable Gavi Cloud MD Primary Care Provider + [phone] Gavi Cloud MD Unavailable [phone] Blue Mensah MD Unavailable Un available Jasmin Maradiaga PA-C Unavailable + [phone] Encounter Details Date Type Department Care Team (Late st Contact Info) Description 07/13/2009 Office Visit-[facility] Heart [address] [place] [address] Ian Polk APRN ZIPPER SETTER LOCKSTITCH Social History Tobacco Use Types Packs/Day Years Used Date Smoking Tobacco: Never Alcohol Use Standard Drinks/Week Comments No 0 (1 standard drink = 0.6 oz pur e alcohol) Comments No Sex and Gender Information Value Date Recorded Sex Assigned at Not on file 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 DATE: 07/13/2009 GRISELDA LAI DATE OF : 1945 AGE: [age] years old Referring Physician: MARCOS SANDOVAL Referring Clinic: [facility] [facility] CURRENT DIAGNOSES 1. - Hypercholesterolemia, 272.0 [...] asthma, CPAP machine, MRA/MRI of head at [facility] coumadin stopped 02-12, hyperlipidemia Past Cardiac Illnesses: [...] on filedocumented in this encounter Care Teams Track And Field Coach Relationship Specialty Start Date End Date Marcos Sandoval MD NO INFO AVAILABLE 10/03/22 PCP - General 03/27/99 08/11/19 Korin Lamb MD [address] [address] PCP - General Family Practice 08/12/19 03/15/21 Jasmin Maradiaga PA-C [address] [address] PCP - General Family Medicine 03/16/21 08/16/24 Gavi Cloud MD [address] [address] PCP - General Family Medicine 08/17/24 Hector Goode MD [address] [address] Neurology 05/01/17 John Cancino MD [address] [address] Family Medicine - Sports Medicine 07/30/17 Marcos Sandoval MD NO INFO AVAILABLE 10/03/22 Assigned PCP 02/08/18 06/05/19 Korin Lamb MD [address] [address] Assigned PCP 06/06/19 04/29/20 Carl Farah MD Assigned Heart and Vascular Provider 12/31/19 12/16/20 Marcos Sandoval MD NO INFO AVAILABLE 10/03/22 Assigned PCP 04/30/20 05/06/20 Korin Lamb MD [address] [place] [address] Assigned PCP 05/07/20 05/28/20 Gavi Cloud MD [address] [place] [address] Assigned PCP 05/29/20 01/06/21 Jasmin Maradiaga PA-C [address] [place] [address] Assigned PCP 01/07/21 09/28/21 Ian Polk APRN ZIPPER SETTER LOCKSTITCH Assigned Heart and Vascular Provider 12/17/20 02/17/21 Carl Farah MD Assigned Heart and Vascular Provider 02/18/21 12/14/21 Gavi Cloud MD [address] [place] [address] Assigned PCP 09/29/21 10/19/21 Jasmin Maradiaga PA-C [address], [address] [place] [address] Assigned PCP 10/20/21 10/29/24 Ian Polk APRN ZIPPER SETTER LOCKSTITCH Assigned Heart and Vascular Provider 12/15/21 05/17/22 Carl Farah MD [address], [address] [place] [address] Assigned Heart and Vascular Provider 05/18/22 12/29/24 Hector Goode MD [address] [place] [address] [id number] [place] [address] Assigned Neuroscience Provider 07/01/23 12/29/24 Jaclyn Thomason APRN CNP [address] [place] [address] Nurse Practitioner Geriatric Medicine 02/06/[address] [place] [address] [place] [phone] 02/06/24 02/23/24 Rivas Delcid MD [address] [facility], [address] [place] [address] Assigned Surgical Provider 03/01/24 Gavi Cloud MD [address] [address] Assigned PCP 10/30/24 01/05/25 Blue Mensah MD Assigned Heart and Vascular Provider 12/30/24 Jasmin Maradiaga PA-C [address], [address] [address] Assigned PCP 01/06/25 documented as of this encounter
--- OUTSIDE RECORDS SUMMARY | 2025-01-07 17:18 | XMS_ITS | Encounter Summary ---
Author Organization [place] Address [address] [facility] 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 Gender Identity Not on file Sexual Orientation Not on file documented as of this encounter Plan of Treatment Scheduled Procedures Name Priority Associated Diagnoses Date/Ti me ENDOSCOPIC RETROGRADE CHOLANGIOPANCREATOGRAPHY, COMPLEX Cholecystitis Choledocholithiasis with acute cholecystitis documented as of this encounter Visit Diagnoses Not on filedocumented in this encounter Additional Health Concerns Assessment Noted Time PHQ-9 Depression Total Score: 8 04/30/19 24 2:24 PM ENROLLMENT CONSULTANT documented as of this encounter Care Teams Manager Presentation Relationship Specialty Start Date End Date Gavi Cloud MD [address] [facility] [address] [place] [address] PCP - General Family Medicine 08/17/24 Hector Goode MD [address] [facility] [id number] [address] Neurology 05/01/17 John Cancino MD [address] [place] [address] Family Medicine - Sports Medicine 07/30/17 Carl Farah MD [address] [place] [address] Assigned Heart and Vascular Provider 05/18/22 12/29/24 Hector Goode MD [address] [place] [address] Assigned Neuroscience Provider 07/01/23 12/29/24 Rivas Delcid MD [address] [facility], [address] [place], [place] [address] Assigned Surgical Provider 03/01/24 Gavi Cloud MD [address] [facility] [address] [place] [address] Assigned PCP 10/30/24 01/05/25 documented as of this encounter
--- OUTSIDE RECORDS SUMMARY | 2025-01-07 17:18 | XMS_ITS | Clinical Summary ---
Author Organization [facility] Address [address] [place] [address] Care Team Providers Care Polisher Eyeglass Frames Name Role Phone Elsewhere, Pcp Primary Care Provider Unavailabl e Source Comments Patient records contain information from all sites at [facility]. For routine questions regarding patient records, call [phone] during business hours, M-F 8:00 AM - 5:00 PM Central Time. Record requests for emergency care only can be directed to [phone] at any time.[facility] Allergies Active Allergy Reactions Criticality Noted Date Comments Cortisone Palpitations Medium 01/18/2009 Sulfa (Sulfonamide Antibiotics) GI intolerance Medium 10/22/2002 Medications irbesartan (AVAPRO) 75 mg tablet Take 75 mg by mouth daily. 8 Active rosuvastatin (CRESTOR) 5 mg tablet Take 5 mg by mouth daily. 8 Active spironolactone (ALDACTONE) 25 mg tablet Take 1 tablet by mouth every morning. 9 Active KLOR-CON M10 10 mEq ER tablet Take 1 tablet by mouth daily. 8 Active aspirin (ASPIRIN LOW DOSE) [address] tablet Take 1 tablet by mouth every morning. 9 Active cholecalciferol, vitamin D3, (CHOLECALCIFEROL, VIT D3,,BULK,) 100,000 unit/gram powder Take 1,000 Units by mouth daily. Active imatinib (GLEEVEC) 400 mg tablet Take 1 tablet by mouth every morning. 9 Active omeprazole (PriLOSEC) [address] capsule Take 40 mg by mouth as needed. 7 Active geriatric multivitamin-min tablet Take 1 tablet by mouth daily. Active furosemide (LASIX) 20 mg tablet Take 20 mg by mouth daily. Plus take 1 additional pill prn for edema/shortnes s of breath 0 Active carvediloL (COREG) 12.5 mg tablet Take 12.5 mg by mouth 2 (two) times a day with meals. 0 Active amoxicillin-pot clavulanate (Augmentin) 875-125 mg per tabletIndications: Loss Hearing Conductive Unilateral Take 1 tablet by mouth 2 (two) times a day. 14 tablet 5 Active ondansetron ODT (Zofran-ODT) 4 mg disintegrating tablet Dissolve 1 tablet (4 mg total) in the mouth every 8 (eight) hours as needed for nausea or vomiting. 20 tablet 5 Active oxyCODONE (Roxicodone) 5 mg immediate release tabletIndications: Acute Pain Take 1 tablet (5 mg total) by mouth every 4 (four) hours as needed for severe pain or score 7-10 of 10 Indication: Acute Pain. 10 tablet 5 Active Active Problems Problem Noted Date Diagnosed Date Loss Hearing Conductive Unilateral 12/27/2022 Pain Hand Bilateral 05/08/2018 Congestive Heart Failure 02/25/2018 Overview (02/25/2018): Overview: Problem list name updated by automated process. 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 Provider to review Apnea Sleep Obstructive 03/20/2006 Cardiomyopathy 03/20/2006 Gastroesophageal Reflux Disease NOS 03/20/2006 Myeloid Leukemia Unspecified In Remission 2002 Resolved Problems Problem Noted Date Diagnosed Date Resolved Date Chronic Obstructive Pulmonary Disease 02/20/2017 02/25/2018 Immunizations Immunization Administration Dates Next Due HZV (ZOSTAVAX) 02/26/2007 PCV13 02/19/2012 PPSV23 01/23/2018,12/19/2006 Td Preservative Free (TENIVAC, DECAVAC) 07/04/19,04/10/2000,02/26/1993 influenza vaccine quad (FLUZ ONE/FLUARIX) (6 months and older)(PF) 01/23/2018,11/29/2016 Family History Medical History Relation Name Comments Intracerebral hemorrhage Aunt 1 Intracerebral hemorrhage Aunt 2 Coronary artery disease Brother ralph choudhary facioscapulohumeral dystrophy Brother ralph kaur Coronary artery disease Father anna choudhary Parkinson's disease Father anna choudhary Intracerebral hemorrhage Mother rec urrent hemorrhage at 74 Weakness Mother undiagnosed, bu t suspected FSHD Dementia Sister Multiple sclerosis Sister facioscapulohumeral dystrophy Son 1 No Known Problems Son 2 Myopathy Uncle stooped posture but not formally diagnosed Relation Name Status Comments Aunt 1 Aunt 2 Brother ralph choudhary Cousin nephews 2 sons of brother Father anna choudhary (Age 86) Mother Sister Son 1 Son 2 Uncle Social History Tobacco Use Types Packs/Day Years Used Date Smoking Tobacco: Never Smokeless Tobacco: Never Alcohol Use Standard Drinks/Week Comments No 0 (1 standard drink = 0.6 oz pur e alcohol) Comments No Sex and Gender Information Value Date Recorded Sex Assigned at Female 02/25/2018 8:06 AM ESCALATOR ATTENDANT Legal Sex Female 2:09 AM ESCALATOR ATTENDANT Gender Identity Female 02/25/2018 8:06 AM ESCALATOR ATTENDANT Sexual Orientation Straight 02/25/2018 8: 06 AM ESCALATOR ATTENDANT Last Filed Vital Signs Vital Sign Reading Time Taken Comments Blood Pressure 126/64 04/20/2024 2:15 PM ESCALATOR ATTENDANT Pulse 70 04/20/2024 2:15 PM ESCALATOR ATTENDANT Temperature 36.4 C (97.5 F) 04/20/2024 12:35 PM ESCALATOR ATTENDANT Respiratory Rate 11 04/20/2024 12:45 PM ESCALATOR ATTENDANT Oxygen Saturation 89% 04/20/2024 2:15 PM ESCALATOR ATTENDANT Inhaled Oxygen Concentration - - Weight 110 kg (241 lb 10 oz) 04/20/2024 8:45 AM ESCALATOR ATTENDANT Height 162.6 cm (5' 4) 04/20/2024 8:45 AM ESCALATOR ATTENDANT Body Mass Index 41.47 04/20/2024 8:45 AM ESCALATOR ATTENDANT Plan of Treatment Health Maintenance Due Date Last Done Comments Zoster Vaccines (1 of 2) 04/23/2007 02/26/2007 DTaP,Tdap,and Td Vaccines (1 - Tdap) 07/04/2009 07/03/2009, 04/10/2000, 02/26/1993 RSV vaccine - (32-36 weeks) or 50+ years (1 - 1-dose 75+ series) 01/04/2019 Depression Screening (Annual PHQ-2) 03/10/2024 COVID-19 Vaccine ( season) 2024 01/21/2023, 02/12/2022, 09/25/2021, Additional history exists Influenza Vaccine (#1) 2024 , 12/28/2021, 12/15/2020, Additional history exists Creatinine Level (Kidney Function Test) 04/14/2025 04/14/2024, 02/18/2024, 02/16/2024, Additional history exists Potassium Level 04/14/2025 04/14/2024, 02/07, 02/16/2024, Additional history exists Sodium Level 04/14/2025 04/14/2024, 02/07, 02/16/2024, Additional history exists Pneumococcal vaccine (50+ years) Completed 01/23/2018, 02/19/2012, 12/19/2006 Bone Density Scan (Osteoporosis Screen) Discontinued 12/21/2020 Fall Risk Screen (Annual) Completed 04/20/2024 Mammogram Discontinued 05/27/2024, 05/08, 03/17/2013 (Performed elsewhere) HPV Vaccines Aged Out No longer eligi ble based on patient's age to complete this topic IPV Vaccines Aged Out No longer eligi ble based on patient's age to complete this topic Medical Devices Implanted Type Area Protein Specialist Device Identifier Shelf Expiration Date Model / Serial / Lot Baha Device-01/26/20 09 Implanted:Qty: 1 on 01/25/2009 BAHA Device Neck Cochlear Limited Description:Device Manufactu rer - Cochlear [employer]. Device Status Text - [id number]. Placed behind ear Baha Device-01/26/20 Implanted:Qty: 1 on 01/25/2009 BAHA Device Other/Legacy - See Implant Description Cochlear Limited Description:Device Manufactu rer - Cochlear [employer]. Body Location - Other. Right. Device Status Text - [id number]. Abtmnt Hd Ci Baha Fxtr [id number] 4 - [id number] Implanted:Qty: 1 on 04/20/2024 by Lewis Hamilton M.D. at [facility] BAHA Device Cochlear Limited 06/24/2028 [id number] / / [id number] Proc Hd Ci Osia Ci - [id number] - [id number] Implanted:Qty: 1 on 04/20/2024 by Lewis Hamilton M.D. at [facility] Cochlear Implant Cochlear Limited 12/09/2025 [id number] / [id number] / Procedures Procedure Name Priority Date/Time Associated Diagnosis Comments COMPREHENSIVE METABOLIC PANEL, S/P Routine 02/26/2018 9:34 AM ESCALATOR ATTENDANT Pain Low Back 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 Muscular (HCC) Myeloid Leukemia Unspecified In Remission (HCC) Sarcoidosis Tympanomastoidectomy Status Post Loss Hearing Sensorineural Unilateral from Last 3 Months or Most Recently Relevant to Health Maintenance Results * CMP (Comprehensive Metabolic Panel) (02/26/2018 9:34 AM ESCALATOR ATTENDANT) Potassium, S 4.3 3.6 - 5.2 mmol/L 02/26/2018 10:41 AM ESCALATOR ATTENDANT [facility] Sodium, S 138 135 - 145 mmol/L 02/26/2018 10:[address] [facility] Chloride, S 100 98 - 107 mmol/L 02/26/2018 10:41 AM ESCALATOR ATTENDANT [facility] Bicarbonate, S 27 22 - 29 mmol/L 02/26/2018 10:[address] [facility] Anion Gap 11 7 - 15 02/26/2018 10:[address] [facility] BUN (Blood Urea Nitrogen), S 15 6 - 21 mg/dL 02/26/2018 10:[address] [facility] Creatinine 0.93 0.59 - 1.04 mg/dL 02/26/2018 10:[address] [facility] eGFR-Non Black/ 61 >=60 mL/min/BS A 02/26/2018 10:[address] [facility] Comment: ----ADDITIONAL INFORMATION---- Estimated GFR calculated using the 2009 CKD_EPI creatinine equation. eGFR-Black/ 70 >=60 mL/min/BS A 02/26/2018 10:[address] [facility] Comment: ----ADDITIONAL INFORMATION---- Estimated GFR calculated using the 2009 CKD_EPI creatinine equation. Calcium, Total, S 9.5 8.8 - 10.2 mg/dL 02/26/2018 10:41 AM ESCALATOR ATTENDANT [facility] Glucose, S 103 70 - 140 mg/dL 02/26/2018 10:[address] [facility] Protein, Total, S 6.3 6.3 - 7.9 g/dL 02/26/2018 10:[address] [facility] Albumin, S 4.2 3.5 - 5.0 g/dL 02/26/2018 10:[address] [facility] Aspartate Aminotransferase (AST), S 29 8 - 43 U/L 02/26/2018 10:[address] [facility] Alkaline Phosphatase, S 63 35 - 104 U/L 02/26/2018 10:[address] [facility] Alanine Aminotransferase (ALT), S 24 7 - 45 U/L 02/26/2018 10:[address] [facility] Bilirubin, Total, S 0.6 <=1.2 mg/dL 02/26/2018 10:[address] [facility] Blood (Blood, Venous) 02/26/2018 9:34 AM ESCALATOR ATTENDANT 02/26/2018 9:56 AM ESCALATOR ATTENDANT us Connor Gorman M.D., M.S. LAB BLOOD ADD-ON F inal Result [facility] [address] [place] [address], [facility] from Last 3 Months or Most Recently Relevant to Health Maintenance Additional Health Concerns Infection Onset Date Last Indicated Protective Environment 11/22/2022 3 Insurance MEDICARE [facility] Member Subscriber Plan / Payer (Ef fective 2021-Present) Name:Griselda Lai Relation to Subscriber:Self Name:Griselda Lai Payer ID:Not on file Type:Indemnity Address: [address] [place] [id number] Care Teams Polisher Eyeglass Frames Relationship Specialty Start Date End Date Elsewhere, Pcp PCP - General Internal Medicine 04/20/24
--- OUTSIDE RECORDS SUMMARY | 2025-01-07 17:18 | XMS_ITS | Encounter Summary ---
Author Organization [facility] Address [facility] [place] [address] Care Team Providers Care Senior Network Security Engineer Name Role Phone Hector Goode MD Unavailable John Cancino MD Unavailable [phone] Carl Farah MD Unavailable Unavailable Hector Goode MD Unavailable Rivas Delcid MD Unavailable Gavi Cloud MD Primary Care Provider [phone] Gavi Cloud MD Unavailable [phone] Encounter Details Date Type Department Care Team (Latest Contact Info) Description 12/08/2024 Travel Social History Tobacco Use Types Packs/Day [...] in an abandoned building, in an overnight custodial, or couch-surfing.) Yes 02/02/2024 Are you worried [...] on file Legal Sex Female 2:58 AM STRIPPER PRINTED CIRCUIT BOARDS Gender Identity Not on file Sexual Orientation Not on file documented as of this encounter Plan of Treatment Scheduled Procedures Name Priority Associated Diagnoses Date/Ti me ENDOSCOPIC RETROGRADE CHOLANGIOPANCREATOGRAPHY, COMPLEX Cholecystitis Choledocholithiasis with acute cholecystitis documented as of this encounter Visit Diagnoses Not on filedocumented in this encounter Additional Health Concerns Assessment Noted Time PHQ-9 Depression Total Score: 8 04/30/19 24 2:24 PM STRIPPER PRINTED CIRCUIT BOARDS documented as of this encounter Care Teams Senior Network Security Engineer Relationship Specialty Start Date End Date Gavi Cloud MD [address] [facility] 100 [place] [address] PCP - General Family Medicine 08/17/24 Hector Goode MD [address] [facility] [id number], [place] [address] Neurology 05/01/17 John Cancino MD [address] [place] [address] Family Medicine - Sports Medicine 07/30/17 Carl Farah MD [address] [place] [address] Assigned Heart and Vascular Provider 05/18/22 12/29/24 Hector Goode MD [address] [place] [address] Assigned Neuroscience Provider 07/01/23 12/29/24 Rivas Delcid MD 6[address] [facility], [address] [place], [place] [address] Assigned Surgical Provider 03/01/24 Gavi Cloud MD [address] [facility] 100 [place] [address] Assigned PCP 10/30/24 01/05/25 documented as of this encounter
--- OUTSIDE RECORDS SUMMARY | 2025-01-07 17:18 | XMS_ITS | Encounter Summary ---
Author Organization [facility] Address [address] [place] [address] Care Team Providers Care Optician Name Role Phone Marcos Sandoval MD Primary Care Provider Unav ailable Hector Goode MD Unavailable John Cancino MD Unavailable [phone] Marcos Sandoval MD Unavailable UnavailKorin Cash MD Unavailable +- [phone] Korin Lamb MD Primary Care Provider [phone] Carl Farah MD Unavailable Unavailable Marcos Sandoval MD Unavailable UnavailKorin Cash MD Unavailable [phone] Gavi Cloud MD Unavailable +[phone] Jasmin Maradiaga PA-C Unavailable [phone] Itzel Polk APRN PREPARATION OPERATOR Unavailable Unavailable Carl Farah MD Unavailable Unavailable Jasmin Maradiaga PA-C Primary Care Provid er Gavi Cloud MD Unavailable [phone] Jasmin Maradiaga PA-C Unavailable +[phone] Itzel Polk APRN PREPARATION OPERATOR Unavailable Unavailable Carl Farah MD Unavailable Unavailable Hector Goode MD Unavailable Jaclyn Thomason APRN PREPARATION OPERATOR Unavailable [phone] [facility] Unavailable Rivas Delcid MD Unavailable Gavi Cloud MD Primary Care Provider + [phone] Gavi Cloud MD Unavailable [phone] Blue Mensah MD Unavailable Un available Jasmin Maradiaga PA-C Unavailable + [phone] Encounter Details Date Type Department Care Team (Late st Contact Info) Description 02/16/2010 Office Visit-[facility] Heart [address] [place] [address] Carl Farah MD Social History Tobacco Use Types Packs/Day Years Used Date Smoking Tobacco: Never Alcohol Use Standard Drinks/Week Comments No 0 (1 standard drink = 0.6 oz pur e alcohol) Comments No Sex and Gender Information Value Date Recorded Sex Assigned at Not on file Legal Sex Female 2:58 AM FLATWORK TIER Gender Identity Not on file Sexual Orientation Not on file documented as of this encounter Progress Notes * Carl Farah MD - 11/28/2010 11:29 AM CDT Progress Note Created by: Carl Farah M.D. DATE: 02/16/2010 GRISELDA LAI DATE OF : 1945 AGE: [age] years old Referring Physician: MARCOS SANDOVAL Referring Clinic: [facility] CURRENT DIAGNOSES 1. - Hypercholesterolemia, [...] unclear. 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 [...] on filedocumented in this encounter Care Teams Optician Relationship Specialty Start Date End Date Marcos Sandoval MD NO INFO AVAILABLE 10/03/22 PCP - General 03/27/99 08/11/19 Korin Lamb MD [address] , [address] [address] PCP - General Family Practice 08/12/19 03/15/21 Jasmin Maradiaga PA-C [address] , [address] [address] PCP - General Family Medicine 03/16/21 08/16/24 Gavi Cloud MD [address] [address] PCP - General Family Medicine 08/17/24 Hector Goode MD 909 [facility] [place] [id number] [place] [address] Neurology 05/01/17 John Cancino MD [address] [facility] [id number] [place] [address] Family Medicine - Sports Medicine 07/30/17 Marcos Sandoval MD NO INFO AVAILABLE 10/03/22 Assigned PCP 02/08/18 06/05/19 Korin Lamb MD [address], [facility] [address] [place] [address] Assigned PCP 06/06/19 04/29/20 Carl Farah MD Assigned Heart and Vascular Provider 12/31/19 12/16/20 Marcos Sandoval MD NO INFO AVAILABLE 10/03/22 Assigned PCP 04/30/20 05/06/20 Korin Lamb MD [address], [place] [address] [place] [address] Assigned PCP 05/07/20 05/28/20 Gavi Cloud MD [address] [facility] [address] [place] [address] Assigned PCP 05/29/20 01/06/21 Jasmin Maradiaga PA-C [address], [address] [address] [place] [address] Assigned PCP 01/07/21 09/28/21 Itzel Polk APRN PREPARATION OPERATOR Assigned Heart and Vascular Provider 12/17/20 02/17/21 Carl Farah MD Assigned Heart and Vascular Provider 02/18/21 12/14/21 Gavi Cloud MD [address] [address] Assigned PCP 09/29/21 10/19/21 Jsamin Maradiaga PA-C [address], [address] [address] Assigned PCP 10/20/21 10/29/24 Itzel Polk APRN PREPARATION OPERATOR Assigned Heart and Vascular Provider 12/15/21 05/17/22 Carl Farah MD [address], [address] [address] Assigned Heart and Vascular Provider 05/18/22 12/29/24 Hector Goode MD [address] [facility] [id number] [place] [address] Assigned Neuroscience Provider 07/01/23 12/29/24 Jaclyn Thomason APRN PREPARATION OPERATOR [address] [place] [address] Nurse Practitioner Geriatric Medicine 02/06/24 [facility], [facility] [address] [place] [id number] 02/06/24 02/23/24 Rivas Delcid MD [address] [facility], [address] [place] [address] Assigned Surgical Provider 03/01/24 Gavi Cloud MD [address] [facility] [address] [place] [address] Assigned PCP 10/30/24 01/05/25 Blue Mensah MD Assigned Heart and Vascular Provider 12/30/24 Jasmin Maradiaga PA-C [address], [address] [address] Assigned PCP 01/06/25 documented as of this encounter
--- OUTSIDE RECORDS SUMMARY | 2025-01-07 17:18 | XMS_ITS | Encounter Summary ---
Author Organization [place] Address [facility] [place] [address] Care Team Providers Care Verifier Operator Name Role Phone Hector Goode MD Unavailable John Cancino MD Unavailable [phone] Carl Farah MD Unavailable Unavailable Hector Goode MD Unavailable Rivas Delcid MD Unavailable Gavi Cloud MD Primary Care Provider [phone] Gavi Cloud MD Unavailable [phone] Encounter Details Date Type Department Care Team (Latest Contact Info) Description 11/29/2024 Travel Social History Tobacco Use Types Packs/Day [...] in an abandoned building, in an overnight residential, or couch-surfing.) Yes 02/02/2024 Are you worried [...] on file Legal Sex Female 2:58 AM CASHIERS BUSSERS FOOD RUNNERS Gender Identity Not on file Sexual Orientation Not on file documented as of this encounter Plan of Treatment Scheduled Procedures Name Priority Associated Diagnoses Date/Ti me ENDOSCOPIC RETROGRADE CHOLANGIOPANCREATOGRAPHY, COMPLEX Cholecystitis Choledocholithiasis with acute cholecystitis documented as of this encounter Visit Diagnoses Not on filedocumented in this encounter Additional Health Concerns Assessment Noted Time PHQ-9 Depression Total Score: 8 04/30/19 24 2:24 PM CASHIERS BUSSERS FOOD RUNNERS documented as of this encounter Care Teams Verifier Operator Relationship Specialty Start Date End Date Gavi Cloud MD [address] [facility] 100 [place] [address] PCP - General Family Medicine 08/17/24 Hector Goode MD 909 [facility] [id number] [address] Neurology 05/01/17 John Cancino MD [address] [place] [address] Family Medicine - Sports Medicine 07/30/17 Carl Farah MD [address] [place] [address] Assigned Heart and Vascular Provider 05/18/22 12/29/24 Hector Goode MD [address] [place] [address] Assigned Neuroscience Provider 07/01/23 12/29/24 Rivas Delcid MD 6[address] [facility], [address] [place], [place] [address] Assigned Surgical Provider 03/01/24 Gavi Cloud MD [address] [facility] 100 [place] [address] Assigned PCP 10/30/24 01/05/25 documented as of this encounter
--- OUTSIDE RECORDS SUMMARY | 2025-01-07 17:18 | XMS_ITS | Encounter Summary ---
Author Organization [facility] Address [address] [place] [address] Care Team Providers Care Oil Well Perforator Operator Name Role Phone Marcos Sandoval MD Primary Care Provider Unav ailable Hector Goode MD Unavailable John Cancino MD Unavailable [phone] Marcos Sandoval MD Unavailable UnavailKorin Cash MD Unavailable +- [phone] Korin Lamb MD Primary Care Provider [phone] Carl Farah MD Unavailable Unavailable Marcos Sandoval MD Unavailable UnavailKorin Cash MD Unavailable [phone] Gavi Cloud MD Unavailable [phone] Jasmin Maradiaga PA-C Unavailable [phone] Itzel Polk APRN APPLICATION TRAINER Unavailable Unavailable Carl Farah MD Unavailable Unavailable Jasmin Maradiaga PA-C Primary Care Provid er Gavi Cloud MD Unavailable [phone] Jasmin Maradiaga PA-C Unavailable [phone] Itzel Polk APRN APPLICATION TRAINER Unavailable Unavailable Carl Farah MD Unavailable Unavailable Hector Goode MD Unavailable Jaclyn Thomason APRN APPLICATION TRAINER Unavailable [phone] [facility] Unavailable Rivas Delcid MD Unavailable Gavi Cloud MD Primary Care Provider + [phone] Gavi Cloud MD Unavailable [phone] Blue Mensah MD Unavailable Un available Jasmin Maradiaga PA-C Unavailable + [phone] Encounter Details Date Type Department Care Team (Late st Contact Info) Description 08/27/2007 Office Visit-[facility] [place] [address] [facility] [address] [place] [address] Suleman Dixon MD [facility] 65[address] [facility] [address] [place] [address] Social History Tobacco Use Types Packs/Day Years Used Date Smoking Tobacco: Never Alcohol Use Standard Drinks/Week Comments No 0 (1 standard drink = 0.6 oz pur e alcohol) Comments No Sex and Gender Information Value Date Recorded Sex Assigned at Not on file 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 DATE: 08/27/2007 GRISELDA LAI DATE OF : 1945 AGE: [age] years old Referring Physician: MARCOS SANDOVAL Referring Clinic: [facility] CURRENT DIAGNOSES 1. - Congestive [...] asthma, CPAP machine, MRA/MRI of head [place] [facility] coumadin stopped 02-12, hyperlipidemia Past Cardiac Illnesses: [...] Residence - lives alone; Place of - [place]; Spouse's Occupation - ; REVIEW OF SYSTEMS [...] doppler 2 weeks 2. F/U with Xiao Emmanuel, MSN, APPLICATION TRAINER 2-4 weeks Suleman Dixon M.D. documented in this encounter Plan of Treatment Scheduled Procedures Name Priority Associated Diagnoses Date/Ti or ENDOSCOPIC RETROGRADE CHOLANGIOPANCREATOGRAPHY, COMPLEX Cholecystitis Choledocholithiasis with acute cholecystitis documented as of this encounter Visit Diagnoses Not on filedocumented in this encounter Care Teams Oil Well Perforator Operator Relationship Specialty Start Date End Date Marcos Sandoval MD NO INFO AVAILABLE 10/03/22 PCP - General 03/27/99 08/11/19 Korin Lamb MD [address], [facility] 100 [place] [address] PCP - General Family Practice 08/12/19 03/15/21 aJsmin Maradiaga PA-C [address] [address] PCP - General Family Medicine 03/16/21 08/16/24 Gavi Cloud MD [address] [address] PCP - General Family Medicine 08/17/24 Hector Goode MD [address] [place] [address] Neurology 05/01/17 John Cancino MD [address] [place] [address] Family Medicine - Sports Medicine 07/30/17 Marcos Sandoval MD NO INFO AVAILABLE 10/03/22 Assigned PCP 02/08/18 06/05/19 Korin Lamb MD [address] [address] Assigned PCP 06/06/19 04/29/20 Carl Farah MD Assigned Heart and Vascular Provider 12/31/19 12/16/20 Marcos Sandoval MD NO INFO AVAILABLE 10/03/22 Assigned PCP 04/30/20 05/06/20 Korin Lamb MD [address] [address] Assigned PCP 05/07/20 05/28/20 Gavi Cloud MD [address] [address] Assigned PCP 05/29/20 01/06/21 Jasmin Maradiaga PA-C [address], [address] [address] Assigned PCP 01/07/21 09/28/21 Itzel Polk APRN APPLICATION TRAINER Assigned Heart and Vascular Provider 12/17/20 02/17/21 Carl Farah MD Assigned Heart and Vascular Provider 02/18/21 12/14/21 Gavi Cloud MD [address] [address] Assigned PCP 09/29/21 10/19/21 Jasmin Maradiaga PA-C [address], [address] [address] Assigned PCP 10/20/21 10/29/24 Itzel Polk APRN APPLICATION TRAINER Assigned Heart and Vascular Provider 12/15/21 05/17/22 Carl Farah MD [address], [address] [address] Assigned Heart and Vascular Provider 05/18/22 12/29/24 Hector Goode MD [address] [place] [address] [id number] [address] Assigned Neuroscience Provider 07/01/23 12/29/24 Jaclyn Thomason APRN APPLICATION TRAINER [address] [place] [address] Nurse Practitioner Geriatric Medicine 02/06/24 [facility] [id number] [place] [phone] 02/06/24 02/23/24 Rivas Delcid MD 6405 [facility], [address] [place] [address] Assigned Surgical Provider 03/01/24 Gavi Cloud MD [address] [address] Assigned PCP 10/30/24 01/05/25 Blue Mensah MD Assigned Heart and Vascular Provider 12/30/24 Jasmin Maradiaga PA-C [address], [address] [address] Assigned PCP 01/06/25 documented as of this encounter
--- OUTSIDE RECORDS SUMMARY | 2025-01-07 17:18 | XMS_ITS | Encounter Summary ---
Author Organization [place] Address Counts include 234 beds at the [facility] [place] [address] Care Team Providers Care Cutter Barrel Drum Name Role Phone Hector Goode MD Unavailable John Cancino MD Unavailable [phone] Carl Farah MD Unavailable Unavailable Hector Goode MD Unavailable Rivas Delcid MD Unavailable Gavi Cloud MD Primary Care Provider [phone] Gavi Cloud MD Unavailable [phone] Reason for Visit * Reason Onset Date Comments pharmacy 12/09/2024 Encounter Details Date Type Department Care Team (Late st Contact Info) Description 12/09/2024 Telephone [facility] Heart [place] [id number] [place] [address] Blue Mensah MD pharmacy Social History Tobacco Use Types Packs/Day Years [...] in an abandoned building, in an overnight care home, or couch-surfing.) Yes 02/02/2024 Are you [...] on file Legal Sex Female 2:58 AM QC TECH Gender Identity Not on file Sexual Orientation Not on file documented as of this encounter Miscellaneous Notes * Telephone Encounter - Ewelina White RN - 12/09/2024 3:28 PM CDT Left detailed message and sent RX to mail order pharmacy. Ewelina White RN, BSN [phone] * Telephone Encounter - Laila Erickson - 12/09/2024 2:51 PM CDT [facility] Phone Message May a detailed message be left on voicemail: yes Reason for Call: Other: Patient called regarding her appt. Her after care mikayla stated the [facility] pharmacy. She prefers to have the mail over pharmacy. Action Taken: Other: Cardio Travel Screening: Not Applicable Thank you! [facility] documented in this encounter Plan of Treatment Scheduled Procedures Name Priority Associated Diagnoses Date/Ti me ENDOSCOPIC RETROGRADE CHOLANGIOPANCREATOGRAPHY, COMPLEX Cholecystitis Choledocholithiasis with acute cholecystitis documented as of this encounter Visit Diagnoses Diagnosis Ischemic cardiomyopathy Other specified forms of chronic ischemic heart disease Dilated cardiomyopathy (H) Other primary cardiomyopathies Primary cardiomyopathy Other primary cardiomyopathies Hyperlipidemia LDL goal <100 Other and unspecified hyperlipidemia documented in this encounter Additional Health Concerns Assessment Noted Time PHQ-9 Depression Total Score: 8 04/30/19 24 2:24 PM QC TECH documented as of this encounter Care Teams Cutter Barrel Drum Relationship Specialty Start Date End Date Gavi Cloud MD [address] [facility] 100 [place] [address] PCP - General Family Medicine 08/17/24 Hector Goode MD [address] [place] [address] Neurology 05/01/17 John Cancino MD [address] [place] [address] Family Medicine - Sports Medicine 07/30/17 Carl Farah MD [address] [place] [address] Assigned Heart and Vascular Provider 05/18/22 12/29/24 Hector Goode MD [address] [place] [address] Assigned Neuroscience Provider 07/01/23 12/29/24 Rivas Delcid MD 6405 [facility], [address] [place] [address] Assigned Surgical Provider 03/01/24 Gavi Cloud MD [address] [facility] 100 [place] [address] Assigned PCP 10/30/24 01/05/25 documented as of this encounter
--- OUTSIDE RECORDS SUMMARY | 2025-01-07 17:18 | XMS_ITS | Encounter Summary ---
Author Organization [place] Address [address] [place] [address] Care Team Providers Care Apartment Maintenance Supervisor Name Role Phone Marcos Sandoval MD Primary Care Provider Unav ailable Hector Goode MD Unavailable John Cancino MD Unavailable [phone] Marcos Sandoval MD Unavailable UnavailKorin Cash MD Unavailable +- [phone] Korin Lamb MD Primary Care Provider [phone] Carl Farah MD Unavailable Unavailable Marcos Sandoval MD Unavailable UnavailKorin Cash MD Unavailable [phone] Gavi Cloud MD Unavailable +[phone] Jasmin Maradiaga PA-C Unavailable [phone] Ian Polk APRN MOBILE CRANE OPERATOR Unavailable Unavailable Carl Farah MD Unavailable Unavailable Jasmin Maradiaga PA-C Primary Care Provid er Gavi Cloud MD Unavailable [phone] Jasmin Maradiaga PA-C Unavailable [phone] Ian Polk APRN MOBILE CRANE OPERATOR Unavailable Unavailable Carl Farah MD Unavailable Unavailable Hector Goode MD Unavailable Jaclyn Thomason APRN MOBILE CRANE OPERATOR Unavailable [phone] [facility] Unavailable Rivas Delcid MD Unavailable Gavi Cloud MD Primary Care Provider + [phone] Gavi Cloud MD Unavailable [phone] Blue Mensah MD Unavailable Un available Jasmin Maradiaga PA-C Unavailable + [phone] Encounter Details Date Type Department Care Team (Late st Contact Info) Description 09/08/2007 Office Visit-[facility] Heart [address] [place] [address] Ian Polk APRN MOBILE CRANE OPERATOR Social History Tobacco Use Types Packs/Day Years Used Date Smoking Tobacco: Never Alcohol Use Standard Drinks/Week Comments No 0 (1 standard drink = 0.6 oz pur e alcohol) Comments No Sex and Gender Information Value Date Recorded Sex Assigned at Not on file 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 DATE: 09/08/2007 GRISELDA LAI DATE OF : 1945 AGE: [age] years old Referring Physician: MARCOS SANDOVAL Referring Clinic: [facility] CURRENT DIAGNOSES 1. - Congestive Heart [...] of breath with fatigue and went to [facility] for afull work-up in 2005 and [...] to symptoms she had prior to her [facility] visit where she was deem to [...] asthma, CPAP machine, MRA/MRI of head at [place] coumadin stopped 02-12, hyperlipidemia Past Cardiac Illnesses: [...] of - [place]; Spouse's Occupation - ; REVIEW OF SYSTEMS [...] on filedocumented in this encounter Care Teams Apartment Maintenance Supervisor Relationship Specialty Start Date End Date Marcos Sandoval MD NO INFO AVAILABLE 10/03/22 PCP - General 03/27/99 08/11/19 Korin Lamb MD [address] [address] PCP - General Family Practice 08/12/19 03/15/21 Jasmin Maradiaga PA-C [address], [address] [address] PCP - General Family Medicine 03/16/21 08/16/24 Gavi Cloud MD [address] [address] PCP - General Family Medicine 08/17/24 Hector Goode MD [address] [place] [id number] [address] Neurology 05/01/17 John Cancino MD [id number] [address] Family Medicine - Sports Medicine 07/30/17 Marcos Sandoval MD NO INFO AVAILABLE 10/03/22 Assigned PCP 02/08/18 06/05/19 Korin Lamb MD [address] [address] Assigned PCP 06/06/19 04/29/20 Carl Farah MD Assigned Heart and Vascular Provider 12/31/19 12/16/20 Marcos Sandoval MD NO INFO AVAILABLE 10/03/22 Assigned PCP 04/30/20 05/06/20 Korin Lamb MD [address] [address] Assigned PCP 05/07/20 05/28/20 Gavi Cloud MD [address] [address] Assigned PCP 05/29/20 01/06/21 Jasmin Maradiaga PA-C [address], [facility] [address] [place] [address] Assigned PCP 01/07/21 09/28/21 Ian Polk APRN MOBILE CRANE OPERATOR Assigned Heart and Vascular Provider 12/17/20 02/17/21 Carl Farah MD Assigned Heart and Vascular Provider 02/18/21 12/14/21 Gavi Cloud MD [address] [place] [address] [place] [address] Assigned PCP 09/29/21 10/19/21 Jasmin Maradiaga PA-C [address], [address] [address] [place] [address] Assigned PCP 10/20/21 10/29/24 Ian Polk APRN MOBILE CRANE OPERATOR Assigned Heart and Vascular Provider 12/15/21 05/17/22 Carl Farah MD [address], [place] [address] [place] [address] Assigned Heart and Vascular Provider 05/18/22 12/29/24 Hector Goode MD [address] [place] [address] [id number], [place] [address] Assigned Neuroscience Provider 07/01/23 12/29/24 Jaclyn Thomason APRN MOBILE CRANE OPERATOR [address] [place] [address] Nurse Practitioner Geriatric Medicine 02/06/[address] [place] [id number] [place] [id number] 02/06/24 02/23/24 Rivas Delcid MD [address] [facility], [address] [place] [address] Assigned Surgical Provider 03/01/24 Gavi Cloud MD [address] [address] Assigned PCP 10/30/24 01/05/25 Blue Mensah MD Assigned Heart and Vascular Provider 12/30/24 Jasmin Maradiaga PA-C [address], [address] [address] Assigned PCP 01/06/25 documented as of this encounter
--- OUTSIDE RECORDS SUMMARY | 2025-01-07 17:18 | XMS_ITS | Encounter Summary ---
Author Organization [facility] Address [address] [place] [address] Care Team Providers Care Central Communications Specialist Name Role Phone Marcos Sandoval MD Primary Care Provider Unav ailable Hector Goode MD Unavailable John Cancino MD Unavailable [phone] Marcos Sandoval MD Unavailable UnavailKorin Cash MD Unavailable +- [phone] Korin Lamb MD Primary Care Provider [phone] Carl Farah MD Unavailable Unavailable Marcos Sandoval MD Unavailable UnavailKorin Cash MD Unavailable [phone] Gavi Cloud MD Unavailable +[phone] Jasmin Maradiaga PA-C Unavailable +[phone] Itzel Polk APRN SAMPLE DRILLER Unavailable Unavailable Carl Farah MD Unavailable Unavailable Jasmin Maradiaga PA-C Primary Care Provid er Gavi Cloud MD Unavailable [phone] Jasmin Maradiaga PA-C Unavailable +[phone] Itzel Polk APRN SAMPLE DRILLER Unavailable Unavailable Carl Farah MD Unavailable Unavailable Hector Goode MD Unavailable Jaclyn Thomason APRN SAMPLE DRILLER Unavailable [phone] uma [facility] Unavailable Rivas Delcid MD Unavailable Gavi Cloud MD Primary Care Provider + [phone] Gavi Cloud MD Unavailable [phone] Blue Mensah MD Unavailable Un available Jasmin Maradiaga PA-C Unavailable + [phone] Encounter Details Date Type Department Care Team (Late st Contact Info) Description 02/15/2004 Office Visit-[facility] Heart [address] [place] [address] Unknown, DoctorMD Social History Tobacco Use Types Packs/Day Years Used Date Smoking Tobacco: Never Alcohol Use Standard Drinks/Week Comments No 0 (1 standard drink = 0.6 oz pur e alcohol) on occ Comments No Sex and Gender Information Value Date Recorded Sex Assigned at Not on file Legal Sex Female 2:58 AM COMMUNITY EDUCATION COORDINATOR Gender Identity Not on file Sexual Orientation Not on file documented as of this encounter Progress Notes * Unknown, MD Temo - 02/20/2004 11:53 AM CST Progress Note Created by: Carl Farah M.D. DATE: 02/15/2004 GRISELDA LAI DATE OF : 1945 AGE: [age] years old Referring Physician: MARCOS ASNDOVAL Referring Clinic: [facility]. CURRENT [...] months 4. F/U with Chato Parnell, MSN, TRANSLITERATOR cholestnayeli Farah M.D. documented in this encounter Plan of Treatment Scheduled Procedures Name Priority Associated Diagnoses Date/Ti me ENDOSCOPIC RETROGRADE CHOLANGIOPANCREATOGRAPHY, COMPLEX Cholecystitis Choledocholithiasis with acute cholecystitis documented as of this encounter Visit Diagnoses Not on filedocumented in this encounter Care Teams Central Communications Specialist Relationship Specialty Start Date End Date Marcos Sandoval MD NO INFO AVAILABLE 10/03/22 PCP - General 03/27/99 08/11/19 Korin Lamb MD [address] [address] PCP - General Family Practice 08/12/19 03/15/21 Jasmin Maradiaga PA-C [address] [address] PCP - General Family Medicine 03/16/21 08/16/24 Gavi Cloud MD [address] [address] PCP - General Family Medicine 08/17/24 Hector Goode MD [address] [place] [address] Neurology 05/01/17 John Cancino MD [address] [address] Family Medicine - Sports Medicine 07/30/17 Marcos Sandoval MD NO INFO AVAILABLE 10/03/22 Assigned PCP 02/08/18 06/05/19 Korin Lamb MD [address] [address] Assigned PCP 06/06/19 04/29/20 Carl Farah MD Assigned Heart and Vascular Provider 12/31/19 12/16/20 Marcos Sandoval MD NO INFO AVAILABLE 10/03/22 Assigned PCP 04/30/20 05/06/20 Korin Lamb MD [address] [address] Assigned PCP 05/07/20 05/28/20 Gavi Cloud MD [address] [address] Assigned PCP 05/29/20 01/06/21 Jasmin Maradiaga PA-C [address] [place] [address] Assigned PCP 01/07/21 09/28/21 Itzel Polk APRN SAMPLE DRILLER Assigned Heart and Vascular Provider 12/17/20 02/17/21 Carl Farah MD Assigned Heart and Vascular Provider 02/18/21 12/14/21 Gavi Cloud MD [address] [place] [address] Assigned PCP 09/29/21 10/19/21 Jasmin Maradiaga PA-C [address], [address] [address] Assigned PCP 10/20/21 10/29/24 Itzel Polk APRN SAMPLE DRILLER Assigned Heart and Vascular Provider 12/15/21 05/17/22 Carl Farah MD [address], [address] [address] Assigned Heart and Vascular Provider 05/18/22 12/29/24 Hector Goode MD [address] [place] [address] [id number] [place] [address] Assigned Neuroscience Provider 07/01/23 12/29/24 Jaclyn Thomason APRN SAMPLE DRILLER [address] [place] [address] Nurse Practitioner Geriatric Medicine 02/06/[address] [place] [id number] [place] [phone] 02/06/24 02/23/24 Rivas Delcid MD [address] [facility], [address] [place] [address] Assigned Surgical Provider 03/01/24 Gavi Cloud MD [address] [address] Assigned PCP 10/30/24 01/05/25 Blue Mensah MD Assigned Heart and Vascular Provider 12/30/24 Jasmin Maradiaga PA-C [address], [address] [address] Assigned PCP 01/06/25 documented as of this encounter
--- OUTSIDE RECORDS SUMMARY | 2025-01-07 17:18 | XMS_ITS | Encounter Summary ---
Author Organization [facility] Address [address] [place] [address] Care Team Providers Care Corporate Driver Name Role Phone Roslyn Sandoval MD Primary Care Provider Unav ailable Hector Goode MD Unavailable John Cancino MD Unavailable [phone] Roslyn Sandoval MD Unavailable UnavailKorin Cash MD Unavailable +- [phone] Korin Lamb MD Primary Care Provider [phone] Carl Farah MD Unavailable Unavailable Roslyn Sandoval MD Unavailable UnavailKorin Cash MD Unavailable [phone] Gavi Cloud MD Unavailable +[phone] Jasmin Maradiaga PA-C Unavailable [phone] Itzel Polk APRN HEALTH SAFETY COORDINATOR Unavailable Unavailable Carl Farah MD Unavailable Unavailable Jasmin Maradiaga PA-C Primary Care Provid er Gavi Cloud MD Unavailable [phone] Jasmin Maradiaga PA-C Unavailable +[phone] Itzel Polk APRN HEALTH SAFETY COORDINATOR Unavailable Unavailable Carl Farah MD Unavailable Unavailable Hector Goode MD Unavailable Jaclyn Thomason APRN HEALTH SAFETY COORDINATOR Unavailable [phone] [facility] Unavailable Rivas Delcid MD Unavailable Gavi Cloud MD Primary Care Provider + [phone] Gavi Cloud MD Unavailable [phone] Blue Mensah MD Unavailable Un available Jasmin Maradiaga PA-C Unavailable + [phone] Encounter Details Date Type Department Care Team (Late st Contact Info) Description 03/15/2005 Abstract [facility] Physicians [address] [place] [address] Roslyn Sandoval MD NO INFO AVAILABLE 10/03/22 ABSTRACTING RESULTS (Primary Dx) Social History Tobacco Use Types Packs/Day Years Used Date Smoking Tobacco: Never Alcohol Use Standard Drinks/Week Comments No 0 (1 standard drink = 0.6 oz pur e alcohol) on occ Comments No Sex and Gender Information Value Date Recorded Sex Assigned at Not on file Legal Sex Female 2:58 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 Gender Identity Not on file Sexual Orientation [...] Final Resul t [facility] [address] [facility] [address] [place] [address], [facility] * PROTHROMBIN TIME/INR (03/15/2005) INR Point of Care 2.8 P INTERNAL Narrative [facility] INTERNAL - 03/15/2005 Pt=27.6 us Roslyn Sandoval MD LABORATORY Final Resul t [facility] INTER[facility] [address] [place] [phone] documented in this encounter Visit Diagnoses Diagnosis ABSTRACTING RESULTS- Primary documented in this encounter Care Teams Corporate Driver Relationship Specialty Start Date End Date Roslyn Sandoval MD NO INFO AVAILABLE 10/03/22 PCP - General 03/27/99 08/11/19 Korin Lamb MD [address] [address] PCP - General Family Practice 08/12/19 03/15/21 Jasmin Maradiaga PA-C [address] [address] PCP - General Family Medicine 03/16/21 08/16/24 Gavi Cloud MD [address] [address] PCP - General Family Medicine 08/17/24 Hector Goode MD [address] [place] [address] Neurology 05/01/17 John Cancino MD [address] [place] [address] Family Medicine - Sports Medicine 07/30/17 Roslyn Sandoval MD NO INFO AVAILABLE 10/03/22 Assigned PCP 02/08/18 06/05/19 Korin Lamb MD [address], [facility] [address] [place] [address] Assigned PCP 06/06/19 04/29/20 Carl Farah MD Assigned Heart and Vascular Provider 12/31/19 12/16/20 Roslyn Sandoval MD NO INFO AVAILABLE 10/03/22 Assigned PCP 04/30/20 05/06/20 Korin Lamb MD [address], [facility] [address] [place] [address] Assigned PCP 05/07/20 05/28/20 Gavi Cloud MD [address] [place] [address] Assigned PCP 05/29/20 01/06/21 Jasmin Maradiaga PA-C [address], [address] [place] [address] Assigned PCP 01/07/21 09/28/21 Itzel Polk APRN CNP Assigned Heart and Vascular Provider 12/17/20 02/17/21 Carl Farah MD Assigned Heart and Vascular Provider 02/18/21 12/14/21 Gavi Cloud MD [address] [place] [address], [place] [address] Assigned PCP 09/29/21 10/19/21 Jasmin Maradiaga PA-C [address] [address] Assigned PCP 10/20/21 10/29/24 Itzel Polk APRN HEALTH SAFETY COORDINATOR Assigned Heart and Vascular Provider 12/15/21 05/17/22 Carl Farah MD [address] [address] Assigned Heart and Vascular Provider 05/18/22 12/29/24 Hector Goode MD [address]09 [facility], [place] [address] Assigned Neuroscience Provider 07/01/23 12/29/24 Jaclyn Thomason APRN HEALTH SAFETY COORDINATOR [address] [place] [address] Nurse Practitioner Geriatric Medicine 02/06/[address] [place] [phone] 02/06/24 02/23/24 Rivas Delcid MD [address]405 [facility], [facility] [address] [place] [address] Assigned Surgical Provider 03/01/24 Gavi Cloud MD [address] [address] Assigned PCP 10/30/24 01/05/25 Blue Mensah MD Assigned Heart and Vascular Provider 12/30/24 Jasmin Maradiaga PA-C [address] , [facility] 100 [place] [address] Assigned PCP 01/06/25 documented as of this encounter
--- OUTSIDE RECORDS SUMMARY | 2025-01-07 17:18 | XMS_ITS | Encounter Summary ---
Author Organization [place] Address [facility] [place] [address] Care Team Providers Care Lumber Cutter Name Role Phone Hector Goode MD Unavailable John Cancino MD Unavailable Carl Farah MD Unavailable Unavailable Hector Goode MD Unavailable Rivas Delcid MD Unavailable Gavi Cloud MD Primary Care Provider Gavi Cloud MD Unavailable [phone] Blue Mensah MD Unavailable Un available Jasmin Maradiaga PA-C Unavailable Reason for Visit * Reason Onset Date Comments Pharmacy 11/29/2024 OTHER 11/29/2024 Please use Mail order pharmacy not the [facility] Erroneous encounter-disregard 11/29/2024 Encounter Details Date Type Department Care Team (Late st Contact Info) Description 11/29/2024 Results Follow-Up [facility] Heart [address] [place] [address] Rebecca Castro, RN Chief Comp: Pharmacy Social History Tobacco Use Types Packs/Day Years [...] in an abandoned building, in an overnight detention, or couch-surfing.) Yes 02/02/2024 Are you worried [...] on file 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 Gender Identity Not on file Sexual [...] Total Score: 8 04/30/19 24 2:24 PM GRAILS WEB APPLICATION DEVELOPER documented as of this encounter Care Teams Lumber Cutter Relationship Specialty Start Date End Date Ai, Gavi E, MD [address] [address] PCP - General Family Medicine 08/17/24 Hector Goode MD [address] [address] Neurology 05/01/17 John Cancino MD [address] [place] [address] Family Medicine - Sports Medicine 07/30/17 Carl Farah MD [address] [place] [address] Assigned Heart and Vascular Provider 05/18/22 12/29/24 Hector Goode MD [address] [place] [address] Assigned Neuroscience Provider 07/01/23 12/29/24 Rivas Delcid MD [address] [facility], [address] [place] [address] Assigned Surgical Provider 03/01/24 Gavi Cloud MD [address] [address] Assigned PCP 10/30/24 01/05/25 Blue Mensah MD Assigned Heart and Vascular Provider 12/30/24 Jasmin Maradiaga PA-C [address], [address] [place] [address] Assigned PCP 01/06/25 documented as of this encounter
--- OUTSIDE RECORDS SUMMARY | 2025-01-07 17:19 | XMS_ITS | Encounter Summary ---
Author Organization [place] Address [facility] [place] [address] Care Team Providers Care Clark Driver Name Role Phone Hector Goode MD Unavailable John Cancino MD Unavailable Carl Farah MD Unavailable Unavailable Hector Goode MD Unavailable Rivas Delcid MD Unavailable Gavi Cloud MD Primary Care Provider Gavi Cloud MD Unavailable [phone] Blue Mensah MD Unavailable Un available Jasmin Maradiaga PA-C Unavailable [phone] Encounter Details Date Type Department Care Team (Late st Contact Info) Description 12/20/2024 Results Follow-Up [facility] [address] [address] Gavi Cloud MD [address] [place] [address] Social History Tobacco Use Types Packs/Day Years [...] on file 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 Gender Identity Not on file Sexual [...] Total Score: 8 04/30/19 24 2:24 PM LANDING SUPPORT SPECIALIST documented as of this encounter Care Teams Clark Driver Relationship Specialty Start Date End Date Gavi Cloud MD [address] [address] PCP - General Family Medicine 08/17/24 Hector Goode MD [address] [address] Neurology 05/01/17 John Cancino MD [address] [address] Family Medicine - Sports Medicine 07/30/17 Carl Farah MD [address] [address] Assigned Heart and Vascular Provider 05/18/22 12/29/24 Hector Goode MD [address] [address] Assigned Neuroscience Provider 07/01/23 12/29/24 Rivas Delcid MD [address] [facility], [address] [place] [address] Assigned Surgical Provider 03/01/24 Gavi Cloud MD [address] [address] Assigned PCP 10/30/24 01/05/25 Blue Mensah MD Assigned Heart and Vascular Provider 12/30/24 Jasmin Maradiaga PA-C [address], [address] [address] Assigned PCP 01/06/25 documented as of this encounter
--- OUTSIDE RECORDS SUMMARY | 2025-01-07 17:19 | XMS_ITS | Encounter Summary ---
Author Organization [facility] Address [address] [place] [address] Care Team Providers Care Burlap Worker Name Role Phone Marcos Sandoval MD Primary Care Provider Unav ailable Hector Goode MD Unavailable John Cancino MD Unavailable [phone] Marcos Sandoval MD Unavailable UnavailKorin Cash MD Unavailable +- [phone] Korin Lamb MD Primary Care Provider [phone] Carl Farah MD Unavailable Unavailable Marcos Sandoval MD Unavailable UnavailKorin Cash MD Unavailable [phone] Gavi Cloud MD Unavailable +[phone] Jasmin Maradiaga PA-C Unavailable [phone] Itzel Polk APRN VALVE ASSEMBLER Unavailable Unavailable Carl Farah MD Unavailable Unavailable Jasmin Maradiaga PA-C Primary Care Provid er Gavi Cloud MD Unavailable [phone] Jasmin Maradiaga PA-C Unavailable [phone] Itzel Polk APRN VALVE ASSEMBLER Unavailable Unavailable Carl Farah MD Unavailable Unavailable Hector Goode MD Unavailable Jaclyn Thomason APRN VALVE ASSEMBLER Unavailable [phone] [facility] Unavailable Rivas Delcid MD Unavailable Gavi Cloud MD Primary Care Provider + [phone] Gavi Cloud MD Unavailable [phone] Blue Mensah MD Unavailable Un available Jasmin Maradiaga PA-C Unavailable + [phone] Encounter Details Date Type Department Care Team (Late st Contact Info) Description 06/17/2006 Office Visit-[facility] Heart [address] [place] [address] Carl Farah MD Social History Tobacco Use Types Packs/Day Years Used Date Smoking Tobacco: Never Alcohol Use Standard Drinks/Week Comments No 0 (1 standard drink = 0.6 oz pur e alcohol) on occ Comments No Sex and Gender Information Value Date Recorded Sex Assigned at Not on file 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 DATE: 06/17/2006 GRISELDA LAI DATE OF : 1945 AGE: [age] years old Referring Physician: MARCOS SANDOVAL Referring Clinic: [facility] PHYS. CURRENT DIAGNOSES 1. - Congestive Heart Failure, [...] could explain with heart. She went to [facility] for a se cond opinion and was told that she was simply deconditioned. She has gone on the Advanced Cooling Therapy Diet and now has lost 40 pounds. [...] Residence - lives alone; Place of - [place]; Spouse's Occupation - ; REVIEW OF SYSTEMS [...] She is now off blood thinners per [facility]. We will see the patient back in six months. TODAYS ORDERS 1. Return Visit 6 months Carl Farah M.D. documented in this encounter Plan of Treatment Scheduled Procedures Name Priority Associated Diagnoses Date/Ti me ENDOSCOPIC RETROGRADE CHOLANGIOPANCREATOGRAPHY, COMPLEX Cholecystitis Choledocholithiasis with acute cholecystitis documented as of this encounter Visit Diagnoses Not on filedocumented in this encounter Care Teams Burlap Worker Relationship Specialty Start Date End Date Marcos Sandoval MD NO INFO AVAILABLE 10/03/22 PCP - General 03/27/99 08/11/19 Korin Lamb MD [address] , [address] [address] PCP - General Family Practice 08/12/19 03/15/21 Jasmin Maradiaga PA-C [address] , [address] [address] PCP - General Family Medicine 03/16/21 08/16/24 Gavi Cloud MD [address] [address] PCP - General Family Medicine 08/17/24 Hector Goode MD [address] [address] Neurology 05/01/17 John Cancino MD [address] [place] [address] Family Medicine - Sports Medicine 07/30/17 Marcos Sandoval MD NO INFO AVAILABLE 10/03/22 Assigned PCP 02/08/18 06/05/19 Korin Lamb MD [address] , [address] [address] Assigned PCP 06/06/19 04/29/20 Carl Farah MD Assigned Heart and Vascular Provider 12/31/19 12/16/20 Marcos Sandoval MD NO INFO AVAILABLE 10/03/22 Assigned PCP 04/30/20 05/06/20 Korin Lamb MD [address] , [address] [address] Assigned PCP 05/07/20 05/28/20 Gavi Cloud MD [address] [place] [address] Assigned PCP 05/29/20 01/06/21 Jasmin Maradiaga PA-C [address], [address] [place] [address] Assigned PCP 01/07/21 09/28/21 Itzel Polk APRN VALVE ASSEMBLER Assigned Heart and Vascular Provider 12/17/20 02/17/21 Carl Farah MD Assigned Heart and Vascular Provider 02/18/21 12/14/21 Gavi Cloud MD [address] [address] Assigned PCP 09/29/21 10/19/21 Jasmin Maradiaga PA-C [address], [address] [address] Assigned PCP 10/20/21 10/29/24 Itzel Polk APRN VALVE ASSEMBLER Assigned Heart and Vascular Provider 12/15/21 05/17/22 Carl Farah MD [address], [address] [address] Assigned Heart and Vascular Provider 05/18/22 12/29/24 Hector Goode MD 909 [facility] [place] [id number] [address] Assigned Neuroscience Provider 07/01/23 12/29/24 Jaclyn ThomasonEDELMIRA VALVE ASSEMBLER [address] [place] [address] Nurse Practitioner Geriatric Medicine 02/06/24 4 [facility], [facility] [address] [place] [phone] 02/06/24 02/23/24 Rivas Delcid MD 6405 [facility], [address] [place], [place] [address] Assigned Surgical Provider 03/01/24 Gavi Cloud MD [address] [address] Assigned PCP 10/30/24 01/05/25 Blue Mensah MD Assigned Heart and Vascular Provider 12/30/24 Jasmin Maradiaga PA-C [address], [address] [address] Assigned PCP 01/06/25 documented as of this encounter
--- OUTSIDE RECORDS SUMMARY | 2025-01-07 17:19 | XMS_ITS | Encounter Summary ---
Author Organization [place] Address [address] [place] [address] Care Team Providers Care Pool Table Mechanic Name Role Phone Roslyn Sandoval MD Primary Care Provider Unav ailable Hector Goode MD Unavailable John Cancino MD Unavailable [phone] Roslyn Sandoval MD Unavailable UnavailKorin Cash MD Unavailable +[phone] Korin Lamb MD Primary Care Provider [phone] Carl Farah MD Unavailable Unavailable Roslyn Sandoval MD Unavailable UnavailKorin Cash MD Unavailable [phone] Gavi Cloud MD Unavailable +[phone] Jasmin Maradiaga PA-C Unavailable [phone] Itzel Polk APRN PLATEMAN Unavailable Unavailable Carl Farah MD Unavailable Unavailable Jasmin Maradiaga PA-C Primary Care Provid er Gavi Cloud MD Unavailable [phone] Jasmin Maradiaga PA-C Unavailable [phone] Itzel Polk APRN PLATEMAN Unavailable Unavailable Carl Farah MD Unavailable Unavailable Hector Goode MD Unavailable Jaclyn Thomason APRN PLATEMAN Unavailable [phone] [facility], [facility] Unavailable Riavs Delcid MD Unavailable Gavi Cloud MD Primary Care Provider + [phone] Gavi Cloud MD Unavailable [phone] Blue Mensah MD Unavailable Un available Jasmin Maradiaga PA-C Unavailable + [phone] Encounter Details Date Type Department Care Team (Late st Contact Info) Description 09/25/2002 [facility] [address] [place] [address] Roslyn Sandoval MD NO INFO AVAILABLE 10/03/22 TRANSIENT CEREBRAL ISCHEMIA NOS (Primary Dx); AFTERCARE OUTCOMES ANALYST ANTICOAG USE; CHEST PAIN NOS Social History Tobacco Use Types Packs/Day Years Used Date Smoking Tobacco: Never Passive Smoke Exposure: Never Smokeless Tobacco: Never Alcohol Use Standard Drinks/Week Comments No 0 (1 standard drink = 0.6 oz pur e alcohol) Comments No Sex and Gender Information Value Date Recorded Sex Assigned at Not on file 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 Gender Identity Not on file Sexual Orientation [...] HOSPITAL CARE, LEVEL II Routine 09/29/2002 Aftercare Custodial Anticoag Use Transient Cerebral Ischemia Nos ZZC INITIAL HOSPITAL CARE,LEVL II Routine 09/25/2002 Transient Cerebral Ischemia Nos documented in this encounter Results * SUBSEQUENT HOSPITAL CARE,LEVL II (09/29/2002) us Roslyn Sandoval MD EVALUATION AND MGMT Final R esult * INITIAL HOSPITAL CARE,LEVL II (09/25/2002) Roslyn Sandoval MD EVALUATION AND MGMT Final R esult documented in this encounter Visit Diagnoses Diagnosis Unspecified transient cerebral ischemia- Primary superintendent container terminal (current) use of anticoagulants Long-term (current) use of anticoagulants Chest pain, unspecified documented in this encounter Care Teams Pool Table Mechanic Relationship Specialty Start Date End Date Roslyn Sandoval MD NO INFO AVAILABLE 10/03/22 PCP - General 03/27/99 08/11/19 Korin Lamb MD [address] [address] PCP - General Family Practice 08/12/19 03/15/21 Jasmin Maradiaga PA-C [address] , [address] [address] PCP - General Family Medicine 03/16/21 08/16/24 Gavi Cloud MD [address] [address] PCP - General Family Medicine 08/17/24 Hector Goode MD [address] [place] [id number] Neurology 05/01/17 John Cancino MD [address] [place] [address] 434265 Family Medicine - Sports Medicine 07/30/17 Roslyn Sandoval MD NO INFO AVAILABLE 10/03/22 Assigned PCP 02/08/18 06/05/19 Korin Lamb MD [address], [facility] [address] [place] [address] Assigned PCP 06/06/19 04/29/20 Carl Farah MD Assigned Heart and Vascular Provider 12/31/19 12/16/20 Roslyn Sandoval MD NO INFO AVAILABLE 10/03/22 Assigned PCP 04/30/20 05/06/20 Korin Lamb MD [address], [facility] 100 [place] [address] Assigned PCP 05/07/20 05/28/20 Gavi Cloud MD [address] [place] [address] Assigned PCP 05/29/20 01/06/21 Jasmin Maradiaga PA-C [address], [facility] [address] [place] [address] Assigned PCP 01/07/21 09/28/21 Itzel Polk APRN CNP Assigned Heart and Vascular Provider 12/17/20 02/17/21 Carl Farah MD Assigned Heart and Vascular Provider 02/18/21 12/14/21 Gavi Cloud MD [address] [facility] [address] [place] [address] Assigned PCP 09/29/21 10/19/21 Jasmin Maradiaga PA-C [address], [address] [address] [place] [address] Assigned PCP 10/20/21 10/29/24 Itzel Polk APRN PLATEMAN Assigned Heart and Vascular Provider 12/15/21 05/17/22 Carl Farah MD [address], [address] [place] [address] Assigned Heart and Vascular Provider 05/18/22 12/29/24 Hector Goode MD [address] [facility], [place] [address] Assigned Neuroscience Provider 07/01/23 12/29/24 Jaclyn Thomason APRN PLATEMAN [address] [place] [address] Nurse Practitioner Geriatric Medicine 02/06/24 4 [facility], [facility] [id number] [place] [phone] 02/06/24 02/23/24 Rivas Delcid MD [address] [facility], [address] [place] [address] Assigned Surgical Provider 03/01/24 Gavi Cloud MD [address] [address] [place] [address] Assigned PCP 10/30/24 01/05/25 Blue Mensah MD Assigned Heart and Vascular Provider 12/30/24 Jasmin Maradiaga PA-C [address], [address] [place] [address] Assigned PCP 01/06/25 documented as of this encounter
--- OUTSIDE RECORDS SUMMARY | 2025-01-07 17:19 | XMS_ITS | Encounter Summary ---
Author Organization [facility] Address [address] [place] [address] Care Team Providers Care Pulley Maintainer Name Role Phone Marcos Sandoval MD Primary Care Provider Unav ailable Hector Goode MD Unavailable John Cancino MD Unavailable [phone] Marcos Sandoval MD Unavailable UnavailKorin Cash MD Unavailable +[phone] Korin Lamb MD Primary Care Provider [phone] Carl Farah MD Unavailable Unavailable Marcos Sandoval MD Unavailable UnavailKorin Cash MD Unavailable [phone] Gavi Cloud MD Unavailable +[phone] Jasmin Maradiaga PA-C Unavailable [phone] Itzel Polk APRN MOLDER FOAM RUBBER Unavailable Unavailable Carl Farah MD Unavailable Unavailable Jasmin Maradiaga PA-C Primary Care Provid er Gavi Cloud MD Unavailable [phone] Jasmin Maradiaga PA-C Unavailable [phone] Itzel Polk APRN MOLDER FOAM RUBBER Unavailable Unavailable Carl Farah MD Unavailable Unavailable Hector Goode MD Unavailable Jaclyn Thomason APRN MOLDER FOAM RUBBER Unavailable [phone] Rivas Delcid MD Unavailable Gavi Cloud MD Primary Care Provider + [phone] Gavi Cloud MD Unavailable [phone] Blue Mensah MD Unavailable Un available Jasmin Maradiaga PA-C Unavailable + [phone] Encounter Details Date Type Department Care Team (Late st Contact Info) Description 01/21/2002 Office Visit-[facility] [address] [place] [address] Unknown, DoctorMD Social History Tobacco Use Types Packs/Day Years Used Date Smoking Tobacco: Never Alcohol Use Standard Drinks/Week Comments No 0 (1 standard drink = 0.6 oz pur e alcohol) on occ Comments No Sex and Gender Information Value Date Recorded Sex Assigned at Not on file 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 - Cardiomyopathy Idiopathic, [...] Illnesses: CHF,LBBB, Idiopathic Dilated Cardiomyapathy Cardiology Procedures-Invasive: 10/96, cardiac cath (left) Cardiology Procedures-Noninvasive: , , [...] Residence - lives alone; Place of - [place]; Hours Worked - 40 hours per week; [...] on filedocumented in this encounter Care Teams Pulley Maintainer Relationship Specialty Start Date End Date Marcos Sandoval MD NO INFO AVAILABLE 10/03/22 PCP - General 03/27/99 08/11/19 Korin Lamb MD [address], [facility] 100 [place] [address] PCP - General Family Practice 08/12/19 03/15/21 Jasmin Maradiaga PA-C [address] , [address] [address] PCP - General Family Medicine 03/16/21 08/16/24 Gavi Colud MD [address] [address] PCP - General Family Medicine 08/17/24 Hector Goode MD [address] [place] [address]46[address] Neurology 05/01/17 John Cancino MD [address] [place] [address]12695 Family Medicine - Sports Medicine 07/30/17 Marcos Sandoval MD NO INFO AVAILABLE 10/03/22 Assigned PCP 02/08/18 06/05/19 Korin Lamb MD [address] , [address] [address] Assigned PCP 06/06/19 04/29/20 Carl Farah MD Assigned Heart and Vascular Provider 12/31/19 12/16/20 Marcos Sandoval MD NO INFO AVAILABLE 10/03/22 Assigned PCP 04/30/20 05/06/20 Korin Lamb MD [address] , [address] [address] Assigned PCP 05/07/20 05/28/20 Gavi Cloud MD [address] [address] Assigned PCP 05/29/20 01/06/21 Jasmin Maradiaga PA-C [address], [address] [address] Assigned PCP 01/07/21 09/28/21 Itzel Polk APRN MOLDER FOAM RUBBER Assigned Heart and Vascular Provider 12/17/20 02/17/21 Carl Farah MD Assigned Heart and Vascular Provider 02/18/21 12/14/21 Gavi Cloud MD [address] [address] Assigned PCP 09/29/21 10/19/21 Jasmin Maradiaga PA-C [address], [address] [address] Assigned PCP 10/20/21 10/29/24 Itzel Polk APRN MOLDER FOAM RUBBER Assigned Heart and Vascular Provider 12/15/21 05/17/22 Carl Farah MD [address], [address] [address] Assigned Heart and Vascular Provider 05/18/22 12/29/24 Hector Goode MD [address] [facility] [id number] [place] [address] Assigned Neuroscience Provider 07/01/23 12/29/24 Jaclyn ThomasonEDELMIRA MOLDER FOAM RUBBER [facility] [place] [address] Nurse Practitioner Geriatric Medicine 02/06/24 4 [facility], [facility] [address] [place] [phone] 02/06/24 02/23/24 Rivas Delcid MD [address] [facility], [address] [place] [address] Assigned Surgical Provider 03/01/24 Gavi Cloud MD [address] [address] Assigned PCP 10/30/24 01/05/25 Blue Mensah MD Assigned Heart and Vascular Provider 12/30/24 Jasmin Maradiaga PA-C [address], [address] [address] Assigned PCP 01/06/25 documented as of this encounter
--- OUTSIDE RECORDS SUMMARY | 2025-01-07 17:19 | XMS_ITS | Encounter Summary ---
Author Organization [facility] Address [address] [facility] 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 Wish to be (Past 1 Month) No 01/07/2025 2:14 PM Ofe Garcia RN 2. Non-Specific Active Suici jeanne Thoughts (Past 1 Month) No 01/07/2025 2:14 PM Yessy Garcia RN 6. Suicidal Behavior (Lifetime) No 2:14 PM Ofe Garcia RN documented as of this encounter Plan of Treatment Scheduled Procedures Name Priority Associated Diagnoses Date/Ti ca ENDOSCOPIC RETROGRADE CHOLANGIOPANCREATOGRAPHY, COMPLEX Cholecystitis Choledocholithiasis with acute cholecystitis documented as of this encounter Visit Diagnoses Not on filedocumented in this encounter Additional Health Concerns Assessment Noted Time PHQ-9 Depression Total Score: 8 04/30/19 24 2:24 PM RELIGIOUS EDUCATOR documented as of this encounter Care Teams Sugar Laboratory Assistant Relationship Specialty Start Date End Date Gavi Cloud MD [address] [address] PCP - General Family Medicine 08/17/24 Hector Goode MD [address] [address] Neurology 05/01/17 John Cancino MD [address] [address] Family Medicine - Sports Medicine 07/30/17 Rivas Delcid MD [address] [facility] [address] [place] [address] Assigned Surgical Provider 03/01/24 Blue Mensah MD Assigned Heart and Vascular Provider 12/30/24 Jasmin Maradiaga PA-C [address] [address] Assigned PCP 01/06/25 documented as of this encounter
--- OUTSIDE RECORDS SUMMARY | 2025-01-07 17:19 | XMS_ITS | Encounter Summary ---
Author Organization [place] Address [facility] [place] [address] Care Team Providers Care Import/Export Specialist Name Role Phone Hector Goode MD Unavailable John Cancino MD Unavailable [phone] Carl Farah MD Unavailable Unavailable Hector Goode MD Unavailable Rivas Delcid MD Unavailable Gavi Cloud MD Primary Care Provider [phone] Gavi Cloud MD Unavailable [phone] Encounter Details Date Type Department Care Team (Latest Contact Info) Description 12/10/2024 Travel Social History Tobacco Use Types Packs/Day [...] in an abandoned building, in an overnight prison, or couch-surfing.) Yes 02/02/2024 Are you worried [...] file 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 Gender Identity Not on file Sexual [...] Total Score: 8 04/30/19 24 2:24 PM RETAIL 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 TECHNICIAN documented as of this encounter Care Teams Import/Export Specialist Relationship Specialty Start Date End Date Gavi Cloud MD [address] [facility] 100 [place] [address] PCP - General Family Medicine 08/17/24 Hector Goode MD [address] [facility] [id number] [place] [address] Neurology 05/01/17 John Cancino MD [address] [place] [address] Family Medicine - Sports Medicine 07/30/17 Carl Farah MD [address] [place] [address] Assigned Heart and Vascular Provider 05/18/22 12/29/24 Hector Goode MD [address] [place] [address] Assigned Neuroscience Provider 07/01/23 12/29/24 Rivas Delcid MD [address] [facility], [address] [place], [place] [address] Assigned Surgical Provider 03/01/24 Gavi Cloud MD [address] [facility] 100 [place] [address] Assigned PCP 10/30/24 01/05/25 documented as of this encounter
--- OUTSIDE RECORDS SUMMARY | 2025-01-07 17:19 | XMS_ITS ---
Author Organization [place] Address [facility] [place] [address] Care Team Providers Care Ampoule Sealer Name Role Phone Hector Goode MD Unavailable John Cancino MD Unavailable [phone] Rivas Delcid MD Unavailable Gavi Cloud MD Primary Care Provider [phone] Blue Mensah MD Unavailable Un available Jasmin Maradiaga PA-C Unavailable [phone] Active Problems Problem Noted Date Diagnosed Date Mixed conductive and sensori neural hearing loss of right ear, unspecified hearing status on contralateral side 04/14/2024 GCA (giant cell arteritis) 04/14/2024 Central sleep apnea 04/14/2024 History of transient ischemic attack (TIA) 04/14 PMR (polymyalgia rheumatica) 04/30/2023 Class 2 severe obesity due t o excess calories with serious comorbidity in adult 04/30/2023 Mild persistent asthma without complication 07/2022 CKD (chronic kidney disease) stage 3, GFR 30-59 ml/min 02/17/2019 Incontinence of feces with fecal urgency 019 Pain of hand 05/08/2018 Facioscapulohumeral muscular dystrophy 3 History of primary malignant neoplasm of urinary bladder 09/26/2011 Overview (03/08/2024): V10.51 : PERSONAL HX BLADDER CA History of mastoidectomy 09/18/2006 Obstructive sleep apnea syndrome 03/20/2006 Gastroesophageal reflux disease 03/20/2006 Other specified glaucoma 02/04/2005 Secondary cardiomyopathy 12/23/2004 Overview (12/08/2014): Problem list name updated by automated process. Provider to review Transient cerebral ischemia 04/25/2002 Overview (12/08/2014): Problem list name updated by automated process. Provider to review Chronic myeloid leukemia 04/25/2002 Rosacea 08/14/2000 Lumbago 08/14/2000 Dilated cardiomyopathy Overview (11/11/2012): Problem list name updated by automated process. Provider to review and confirm Imo Update utility Morbid obesity Overview (12/08/2014): Problem list name updated by automated process. Provider to review Hypersomnia with sleep apnea Overview (12/08/2014): Problem list name updated by automated process. Provider to review Mixed hyperlipidemia LBBB (left bundle branch block) Congestive heart failure Overview (12/09/2014): Problem list name updated by automated process. Provider to review Myalgia and myositis Overview (12/09/2014): Problem list name updated by automated process. Provider to review Current Treatment and Therapy Plans No current plan information found. Past Treatment and Therapy Plans No past plan information found. Lifetime Dose Tracking * Chemical Lifetime Dose Automatic Entry Manual Entr y Total Air Kerma 6.7 mGy 6.7 mGy 0 mGy Fluoro Time 0.3 Minutes 0.3 Minutes 0 Minutes Resolved Problems Problem Noted Date Diagnosed Date Resolved Date Cholecystitis 02/01/2024 04/14/2024 COPD (chronic obstructive pulmonary disease) 7 02/11/2023 BMI 37.0-37.9, adult 03/28/2014 025 Advanced directives, counseling/discussion 03/23/2014 05/24/2020 Overview (03/23/2014): [...] tab. Added by Ingrid Apple on 03/23/2014 [place] or callus 01/19/2013 05/24/2020 Health Detention 02/10/2012 08/25/2023 Overview (11/18/2012): State Tier Level: Tier 4 Status: n/a Suede Cleaner: See Letters for [facility] Care Plan Sensorineural hearing loss (SNHL) 04/11/2011 04/14/2024 Meralgia paresthetica of right side 02/16/2011 02/10/2012 [...] tab. Added by Shanelle Moon on 08/09/2013 Personal history of malignan t neoplasm of bladder 05/07/2006 04/14/2024 Overview (12/08/2014): Problem list name updated by automated process. Provider to review Localized osteoarthrosis, lower leg 06/27/2005 05/24/2020 Overview (12/08/2014): Problem list name updated by automated process. 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 Provider to review Depressive disorder, not elsewhere classified 10/05/19 03 02/10/2012 Hyperlipidemia 05/14/1999 05/24/2020 Overview (12/08/2014): Problem list name updated by automated process. Provider to review Sarcoidosis 04/14/2024 Need for prophylactic hormon e replacement therapy (postmenopausal) 10/01/2002 Nonspecific abnormal results of cardiovascular function study 02/12/2023 Overview (12/09/2014): Problem list name updated by automated process. Provider to review
--- OUTSIDE RECORDS SUMMARY | 2025-01-07 17:19 | XMS_ITS | Clinical Summary ---
Author Organization [place] Address [facility] [place] [address] Care Team Providers Care Network Support Manager Name Role Phone Hector Goode MD Unavailable John Cancino MD Unavailable [phone] Rivas Delcid MD Unavailable Gavi Cloud MD Primary Care Provider [phone] Blue Mensah MD Unavailable Un available Jasmin Maradiaga PA-C Unavailable [phone] Allergies Active Allergy Reactions Criticality Noted Date Comments Cortisone 05/29/2006 Cortisone shots Sulfa Antibiotics 06/16/1998 Medications betaxolol (BETOPTIC) 0.5 % ophthalmic solution Place 1 drop into the right eye 2 times daily. 01/03/20 23 Active dorzolamide-timolo l (COSOPT) 2-0.5 % ophthalmic solution Place 1 drop into the right eye 2 times daily. 12/27/19 23 Active tafluprost (ZIOPTAN) 0.0015 % SOLN ophthalmic solution Place 1 drop into the right eye at bedtime 04/30/19 24 Active tocilizumab (ACTEMRA) 80 MG/4ML Inject into the vein every 28 days. Active mometasone (ASMANEX TWISTHALER) 220 MCG/ACT inhaler Inhale 1 puff into the lungs every evening. Active imatinib (GLEEVEC) 400 MG tablet Take 400 mg by mouth daily Active aspirin 81 MG EC tablet Take 81 mg by mouth daily. Active Vitamin D3 (CHOLECALCIFEROL) 25 mcg (1000 units) tablet Take 1 tablet by mouth daily. Active dorzolamide (TRUSOPT) 2 % ophthalmic solution INSTILL 1 DROP INTO RIGHT EYE TWICE A DAY 11/14/19 24 Active potassium chloride prabhu ER (KLOR-CON M10) 10 MEQ CR tabletIndications: Dilated cardiomyopathy (H) Take 1 tablet (10 mEq) by mouth daily. 90 tablet 3 04/16/19 25 Active sertraline (ZOLOFT) 50 MG tabletIndications: Facioscapulohumera l muscular dystrophy (H) Take 1.5 tablets (75 mg) by mouth daily. 135 tablet 11/10/19 25 Active carvedilol (COREG) 12.5 MG tabletIndications: Ischemic cardiomyopathy Take 1 tablet (12.5 mg) by mouth 2 times daily (with meals). 180 tablet 3 12/10/19 25 Active furosemide (LASIX) 20 MG tabletIndications: Dilated cardiomyopathy (H),Primary cardiomyopathy (H) Take 1 tablet (20 mg) by mouth daily. Plus 1 additional pill prn edema/shortnes s of breath. 110 tablet 3 12/10/19 25 Active irbesartan (AVAPRO) 75 MG tabletIndications: Primary cardiomyopathy (H) Take 1 tablet (75 mg) by mouth daily. 90 tablet 3 12/10/19 25 Active rosuvastatin (CRESTOR) 5 MG tabletIndications: Hyperlipidemia LDL goal <100 Take 1 tablet (5 mg) by mouth daily. 90 tablet 3 12/10/19 25 Active spironolactone (ALDACTONE) 25 MG tabletIndications: Ischemic cardiomyopathy Take 1 tablet (25 mg) by mouth every morning. 90 tablet 3 12/10/19 25 Active carvedilol (COREG) 12.5 MG tabletIndications: Ischemic cardiomyopathy Take 1 tablet (12.5 mg) by mouth 2 times daily (with meals). 180 tablet 3 12/09/19 25 025 Discontin ued(Reord er (No AVS)) spironolactone (ALDACTONE) 25 MG tabletIndications: Ischemic cardiomyopathy Take 1 tablet (25 mg) by mouth every morning. 90 tablet 3 12/09/19 25 025 Discontin ued(Reord er (No AVS)) rosuvastatin (CRESTOR) 5 MG tabletIndications: Hyperlipidemia LDL goal <100 Take 1 tablet (5 mg) by mouth daily. 90 tablet 3 12/09/19 25 025 Discontin ued(Reord er (No AVS)) irbesartan (AVAPRO) 75 MG tabletIndications: Primary cardiomyopathy (H) Take 1 tablet (75 mg) by mouth daily. 90 tablet 3 12/09/19 25 025 Discontin ued(Reord er (No AVS)) furosemide (LASIX) 20 MG tabletIndications: Dilated cardiomyopathy (H),Primary cardiomyopathy (H) Take 1 tablet (20 mg) by mouth daily. Plus 1 additional pill prn edema/shortnes s of breath. 110 tablet 3 12/09/19 25 025 Discontin ued(Reord er (No AVS)) Active Problems Problem Noted Date [...] tab. Added by Ingrid Apple on 03/23/2014 [place] or callus 01/19/2013 05/24/2020 Health Long-Term 02/10/2012 08/25/2023 Overview (11/18/2012): State Tier Level: Tier 4 Status: n/a Carbon Setter: See Letters for [facility] Care Plan Sensorineural hearing loss (SNHL) 04/11/2011 [...] updated by automated process. 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 01/31/2004 [...] Encounters Date Type Department Care Team Description 01/07/2025 5:11 PM CDT - 01/07/2025 5:12 PM CDT [facility] Emergency Dept [address] [place] [address] Discharge Disposition: Left Without Being Seen 01/07/2025 Travel 12/20/2024 Results Follow-Up [facility] [address] [place] [address] [address] [place] [address] Gavi Cloud MD 12/17/2024 9:00 AM CDT Orders Only [facility] [address] [place] [address] [address] [place] [address] Gavi Cloud MD 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) (Primary Dx); Encounter for long-term (current) use of medications 12/17/2024 Travel 12/10/2024 10:35 AM CDT - 12/10/2024 11:59 PM CDT Hospital Encounter [facility] [address] [facility] [address] [place] [address] Gavi Cloud MD BI-RADS category 3 mammogram result Discharge Disposition: Home or Self Care 12/10/2024 Travel 12/09/[address] [place] [address] Blue Mensah MD pharmacy 12/08/2024 2:00 PM CDT Office Visit [facility] [address] [place] [address] [address] [place] [address] Jasmin Maradiaga PA-C Medicare annual wellness visit, subsequent (Primary Dx); Other fatigue; Shortness of breath; Facioscapulohumeral muscular dystrophy (H); PMR (polymyalgia rheumatica) 12/08/2024 12:15 PM CDT Office Visit [facility] [address] [place] [address] [address] [place] [address] Blue Mensah MD Dilated cardiomyopathy (H); Hyperlipidemia LDL goal <100; Ischemic cardiomyopathy; Primary cardiomyopathy 12/08/2024 Travel 11/29/2024 11:15 AM CDT Lab [facility] [address] [place] [address] [address] [place] [address] Dilated cardiomyopathy (H); Hyperlipidemia LDL goal <100 11/29/2024 9:31 AM CDT - 11/29/2024 11:59 PM CDT Hospital Encounter [facility] [address] [facility] [address] [place] [address] Carl Light MD Dilated cardiomyopathy (H); Hyperlipidemia LDL goal <100 Discharge Disposition: Home or Self Care 11/29/2024 Results Follow-Up [facility] [address] [facility] [address] [place] [phone] Rebecca Castro RN Chief Comp: Pharmacy 11/29/2024 Travel 11/09/2024 3:00 PM CDT Office Visit [facility] [address] [place] [phone] Jasmin Maradiaga PA-C Pre-operative examination (Primary Dx); Cataract of right eye, unspecified cataract type; Morbid obesity (H); Mixed hyperlipidemia; Mixed conductive and sensorineural hearing loss of right ear, unspecified hearing status on contralateral side; Chronic myeloid leukemia (H); Ischemic cardiomyopathy 11/09/2024 Orders Only [facility] [address] [place] [address] [address] [place] [address] Jasmin Maradiaga PA-C Facioscapulohumeral muscular dystrophy (H) 11/09/2024 Travel 11/05/2024 Refill [facility] [address] [place] [address] [address] [place] [phone] Jasmin Maradiaga PA-C Medication Refill from Last 3 Months Immunizations Immunization Administration Dates Next Due COVID-19 MONOVALENT 12+ [...] in an abandoned building, in an overnight penitentiary, or couch-surfing.) Yes 02/02/2024 Are you worried [...] on file Legal Sex Female 2:58 AM CREATIVE ART DIRECTOR Gender Identity Not on file Sexual [...] Mass Index 39.86 01/07/2025 2:20 PM CDT Plan of Treatment Scheduled Procedures Name Priority Associated Diagnoses Date/Ti me ENDOSCOPIC RETROGRADE CHOLANGIOPANCREATOGRAPHY, COMPLEX Cholecystitis Choledocholithiasis with acute cholecystitis Health Maintenance Due Date Last Done Comments ANNUAL REVIEW OF HM ORDERS 1945 HF ACTION PLAN 1945 MICROALBUMIN 1945 RSV VACCINE (1 - 1-dose 75+ series) 01/04/2019 PHQ-9 10/29/2023 04/30/2023, 03/10, 03/07/2023 ASTHMA CONTROL TEST 12/13/2023 06/13/2023 ASTHMA ACTION PLAN 06/12/2024 06/13/2023, 0 06/13/2023, 06/13/2023 COVID-19 VACCINE ( season) 2024 01/21/2023, 02/12/2022, 09/25/2021, Additional history exists CBC 02/08/2025 02/09/2024, 01/09, 02/04/2024, Additional history exists ALT 02/15/2025 02/16/2024, 04/2023, 02/05/2024, Additional history exists BMP 05/29/2025 11/29/2024, /0 07/2024, 02/18/2024, Additional history exists INFLUENZA VACCINE (#1) 2025 , 12/28/2021, 12/15/2020, Additional history exists Postponed from 11/08/2024 (Patient Declined) LIPID 11/29/2025 11/29/2024, 07/0 04/2023, 10/15/2022, Additional history exists DTAP/TDAP/TD VACCINE (1 - Tdap) 12/08/2025 07/03/2009, 04/10/2000, 02/26/1993 Postponed from 07/04/2009 (Insurance Coverage) FALL RISK ASSESSMENT 12/08/2025 12/08/2024, 10/07/2022, 12/15/2020, Additional history exists MEDICARE ANNUAL WELLNESS VISIT 12/08/2025 12/08/2024, 12/08/2024, 04/30/2023, Additional history exists ZOSTER VACCINE (1 of 2) 12/08/2025 02/26/2007 Post poned from 04/23/2007 (Insurance Coverage) MAMMO SCREENING 12/10/2025 12/10/2024, 04/0 05/2024, 05/27/2024, Additional history exists HEMOGLOBIN 12/17/2025 12/17/2024, 03/2024, 04/14/2024, Additional history exists ADVANCE CARE PLANNING 11/09/2029 11/09/2024 , 02/09/2024, 02/11/2023, Additional history exists DEXA 12/22/2035 12/21/2020, 06/08, 09/26/2001 COLONOSCOPY Discontinued 08/06/2016, 07/10, 01/14/2007 COLORECTAL CANCER SCREENING Discontinued PNEUMOCOCCAL VACCINE 50+ YEARS Completed 01/23/2018, 02/19/2012, 12/19/2006 DEPRESSION ACTION PLAN Completed 06/13/2023, 2023 TSH W/FREE T4 REFLEX Completed 12/08/2024, 05/24/2020, 11/29/2016, Additional history exists URINALYSIS Completed 01/07/2025, 12/10, 07/26/2017, Additional history exists CT COLONOGRAPHY Discontinued FIT Discontinued FLEX SIG Discontinued HPV VACCINE (No Doses Required) Completed MENINGITIS VACCINE Aged Out No longer eligible based on patient's age to complete this topic sDNA (Cologuard) Discontinued Medical Devices Implanted Type Area Physical Therapy Attendant Device Identifier Shelf Expiration Date Model / Serial / Lot Stent Shahab Abreu ([place]) Gabino [id number] Clso-10-7 - [id number] Implanted:Qty : 1 on 02/02/2024 by Rivas Delcid MD at [facility] Stent N/A: [employer] [id number] 12/01/2026 CLSO-10-7 / / [id number] Procedures Procedure Name Priority Date/Time Associated Diagnosis Comments ROUTINE UA WITH MICROSCOPIC REFLEX TO CULTURE STAT 01/07/2025 3:36 PM CDT ESR WESTERGREN (BFP) Routine 12/17/2024 10:10 AM CDT 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) Encounter for long-term (current) use of medications C-REACTIVE PROTEIN CRP ([facility]) Routine 12/17/2024 9:59 AM CDT 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) Encounter for long-term (current) use of medications OK COLLECTION VENOUS BLOOD VENIPUNCTURE Routine 12/17/2024 9:05 [...] Encounter for long-term (current) use of medications MA DIAGNOSTIC DIGITAL LEFT Routine 12/10/2024 10:58 AM CDT BI-RADS category 3 mammogram result VITAMIN B12 ([facility]) Routine 12/08/2024 3 :46 PM CDT Other fatigue Shortness of breath FERRITIN ([facility]) Routine 12/08/2024 3:46 PM CDT Other fatigue Shortness of breath TSH WITH FREE T4 REFLEX ([facility]) Routine 12/08/2024 3:46 PM CDT Other fatigue Shortness of breath OK COLLECTION VENOUS BLOOD VENIPUNCTURE Routine 12/08/2024 2:53 PM CDT Other fatigue Shortness of breath HEMOGRAM WITH PLATELETS (BFP) Routine 12/08/2024 Other fatigue Shortness of breath BASIC METABOLIC PANEL Routine 11/29/2024 10:31 AM CDT Dilated cardiomyopathy (H) Hyperlipidemia LDL goal <100 LIPID PROFILE Routine 11/29/2024 10:31 AM CDT Dilated cardiomyopathy (H) Hyperlipidemia LDL goal <100 ECHO COMPLETE Routine 11/29/2024 10:27 AM CDT Dilated cardiomyopathy (H) Hyperlipidemia LDL goal <100 COMPREHENSIVE METABOLIC PANEL NO GLUCOSE (OUTREACH) Routine 02/16/2024 8:55 AM CREATIVE ART DIRECTOR Chronic kidney disease, stage 4 (severe) (H) CBC WITH PLATELETS Routine 02/09/2024 6: 08 AM CREATIVE ART DIRECTOR Anemia, unspecified Chronic kidney disease, unspecified DX BONE DENSITY Routine 12/21/2020 Screening for osteoporosis COLONOSCOPY Routine 08/06/2016 7:10 AM CDT from Last 3 Months or Most Recently Relevant to Health Maintenance Results * UA with Microscopic reflex to Culture (01/07/2025 3:36 PM CDT) Color Urine Straw Colorless, Straw, Light Yellow, Yellow 01/07/2025 3:55 PM CDT [facility] Appearance Urine Clear Clear 01/08/20 25 3:55 PM CDT [facility] Glucose Urine Negative Negative mg/dL 01/07/2025 3:55 PM CDT [facility] Bilirubin Urine Negative Negative 3:55 PM CDT [facility] Ketones Urine Negative Negative mg/dL 01/07/2025 3:55 PM CDT [facility] Specific [place] Urine 1.004 1.003 - 1.035 01/07/2025 3:55 [...] - URINE ORDERABLES Fi nal Result LABORATORY [facility] [address] Lab (1st floor, no room number) [place] [address] * ESR WESTERGREN (B[facility]) (12/17/2024 10:10 AM CDT) Sed Rate 2 0 - 20 mm/hr [facility] Blood 12/17/2024 10:1 0 AM CDT us Gavi Cloud MD LAB - NON-BEAKER BLOOD LABS Final Result [facility] [address] [place] [address] * C-Reactive Protein CRP ([facility]) (12/17/2024 9:59 AM CDT) C-Reactive Protein <3.0 <8.0 mg/L [facility] Blood 12/17/2024 9:59 AM CDT 12/18/2024 7:37 AM CDT Narrative Resulting Agency Comment Performing Organization Information: CB [facility] [address] [place] [address] Serafin Tse Gavi Cloud MD LAB - NON-BEAKER BLOOD LABS Final Result [facility] [address] [place], [place] [address] [phone] * (ABNORMAL) HEMOGRAM PLATELET DIFF ([facility]) (12/17/2024) [...] BLOOD LABS Final Result Performing Organization Address [facility] Co de Phone Number [facility] [address] [place] [address] [place] [address] * (ABNORMAL) Creatinine ([facility]) (12/17/2024) Creatinine 1.21 0.60 - 1.30 mg/dL [facility] GFR Estimate 45(A) >60 ml/min/1.73 m2 [facility] Blood 12/17/2024 us Gaiv Cloud MD LAB - NON-BEAKER BLOOD LABS Final Result Performing Organization Address City/[facility]/ZIP Co de Phone Number [facility] [address] [place] [address], [place] * AST ([facility]) (12/17/2024) AST 22 0 - 35 U/L [facility] Blood 12/17/2024 Gavi Cloud MD LAB - NON-BEAKER BLOOD LABS Final Result Performing Organization Address [facility] de Phone Number [facility] [address] [place] [address] [place] [address] * ALT ([facility]) (12/17/2024) ALT 15 0 - 32 U/L [facility] Blood 12/17/2024 Gavi Cloud MD LAB - NON-BEAKER BLOOD LABS Final Result Performing Organization Address City/[facility] de Phone Number [facility] [address] * Albumin ([facility]FP) (12/17/2024) Albumin 4.5 3.6 - 5.1 g/dL [facility] Blood 12/17/2024 Gavi Cloud MD LAB - NON-BEAKER BLOOD LABS Final Result Performing Organization Address [facility] de Phone Number [facility] [address] [place] [address] * MA Diagnostic Digital Left (12/10/2024 10:58 AM CDT) Anatomical Region Laterality Modality Breast Left Mammography Impressions 12/10/2024 10:57 AM CDT IMPRESSION: BI-RADS CATEGORY: 2 - Benign. RECOMMENDED FOLLOW-UP: Routine yearly mammography beginning at age 40 or as discussed with your provider. The results and recommendation were communicated to the patient at the conclusion of today's appointment. CROW AVALOS MD Narrative 12/10/2024 10:57 AM CDT DIAGNOSTIC MAMMOGRAM, LEFT, DIGITAL w/CAD - 12/10/2024 10:55 AM HISTORY: Short interval follow-up for left breast calcifications. COMPARISON: Prior mammograms in May and June 2024. BREAST DENSITY: There are scattered areas of fibroglandular density. FINDINGS: On today's examination, the previously noted subcentimeter calcifications in the left breast are consistent with benign rim calcifications. Procedure Note Crow Avalos MD - 12/10/2024 DIAGNOSTIC MAMMOGRAM, LEFT, [...] patient at the conclusion of today's appointment. CROW AVALOS MD Gavi Cloud MD IMG MAMMOGRAPHY ORDERABLES F inal Result * TSH WITH FREE T4 REFLEX ([facility]) (12/08/2024 3:46 PM CDT) TSH 1.98 0.40 - 4.50 mIU/L [facility] Blood 12/08/2024 3:46 PM CDT 12/09/2024 4:46 AM CDT Narrative Resulting Agency Comment Performing Organization Information: CB [facility] [address] [place] [address] Serafin Tse Jasmin Maradiaga PA-C LAB - NON-BEAKER BLO OD LABS Final Result [facility] [address] [place], [place] [address] [phone] * VITAMIN B12 ([facility]) (12/08/2024 3:46 PM CDT) [facility] Vitamin B12 385 200 - 1,100 pg/mL [facility] Comment: Please Note: Although the reference [...] Resulting Agency Comment Performing Organization Information: [facility] [address] [place] [address] Serafin Tse Jasmin Maradiaga PA-C LAB - NONGivkwik OD LABS Final Result [facility] [address] [place], [place] [id number] [place] [address] * FERRITIN ([facility]) (12/08/2024 3:46 PM CDT) [facility] Ferritin 77 16 - 288 ng/mL [facility] Blood 12/08/2024 3:46 PM CDT 12/09/2024 4:46 AM CDT Narrative Resulting Agency Comment Performing Organization Information: [facility] [address] [place] [address] Serafin Tse Jasmin Maradiaga PA-C LAB - NON-ivWatch BLO OD LABS Final Result [facility] [address] [place], [place] [address] [phone] * (ABNORMAL) Hemogram Platelet ([facility]FP) (12/08/2024) WBC [...] LABS Final Result [facility] [address] [place] [address] [place] [phone] * Lipid Profile (11/29/2024 10:31 AM [...] mg/dL Very High: >= 220 mg/dL us Cral Light MD LAB - BLOOD ORDERABLES Final Result LABORATORY [facility] [address] [facility] [address] [facility], [address] [place] [address] [address] [facility] Lab (1st floor, no room number) [place] [address] * (ABNORMAL) Basic metabolic panel (11/29/2024 10:31 AM CDT) Sodium 144 135 - 145 mmol/L 11/29/2024 11:58 AM [facility] Potassium 3.9 3.4 - 5.3 mmol/L 11/29/2024 11:58 AM T [facility] Chloride 106 98 - 107 mmol/L 11/29/2024 11:58 AM [facility] Carbon Dioxide (CO2) 24 22 - 29 mmol/L 11/29/2024 11:58 AM [facility] Anion Gap 14 7 - 15 mmol/L 11/29/2024 11:58 AM CDT LABORATORY Urea Nitrogen 15.9 8.0 - 23.0 mg/dL 11/29/2024 11:58 AM CDT LABORATORY Creatinine 0.97(H) 0.51 - 0.95 mg/dL 11/29/2024 11:58 AM [facility] GFR Estimate 59(L) >60 mL/min/1.7 3m2 11/29/2024 11:58 AM [facility] Comment:eGFR calculated usin g 2020 CKD-EPI equation. Calcium 9.5 8.8 - 10.4 mg/dL 11/29/2024 11:58 AM CDT [facility] Glucose 85 70 - 99 mg/dL 11/29/2024 11:58 AM CDT LABORATORY Blood STRUCTURE OF RIGHT HAND / Unknown Venipuncture / Unknown 11/29/2024 10:31 AM CDT 11/29/2024 10:31 AM CDT Carl Light MD LAB - BLOOD ORDERABLES Final Result LABORATORY [facility] Lab [address] [facility] Lab (1st floor, no room number) [place] [address], [facility] * ECHO COMPLETE (11/29/2024 10:27 AM CDT) Biplane LVEF 43% CARDIOL OGY RESULTS Anatomical Region Laterality Modality Echocardiography 11/29/2024 9:41 AM CDT Narrative 11/29/2024 11:25 AM CDT [id number]^NADEGE^CARL^[facility] Echocardiography Laboratory [address] [place] [address] Name: GRISELDA LAI : 1945 Study Date: 11/29/2024 09:41 AM Age: 79 yrs Gender: Female Patient Location: [facility] Reason For Study: Dilated cardiomyopathy (H), Hyperlipidemia [...] ED Current ()_phl: 60.0 % ES Current (HM)_phl: 30.0 % ED Default (HM)_phl: 60.0 % ES Default (HM)_phl: 30.0 % Report approved by: Dr Jaciel Perez on 11/29/2024 11:25 AM Procedure Note Jaciel Perez MD - 11/29/2024 [id number]^NADEGE^RAVI [facility] Echocardiography Laboratory [address] [place] [address] Name: GRISELDA LAI : 1945 Study Date: 11/29/2024 09:41 AM Age: 79 yrs Gender: Female Patient Location: [facility] Reason For Study: Dilated cardiomyopathy (H), Hyperlipidemia [...] Dr Jaciel Perez on 11/29/2024 11:25 AM us Carl Light MD CV ECHO ORDERABLES Edited Re sult - Final * (ABNORMAL) Comprehensive Metabolic Panel No Glucose (OUTREACH) (02/16/2024 8:55 AM CREATIVE ART DIRECTOR) Sodium 139 135 - 145 mmol/L 02/16/2024 10:34 AM [facility] Potassium 4.0 3.4 - 5.3 mmol/L 02/16/2024 10:34 AM [facility] Carbon Dioxide (CO2) 24 22 - 29 mmol/L 02/16/2024 10:34 AM [facility] Anion Gap 12 7 - 15 mmol/L 02/16/2024 10:34 AM [facility] Urea Nitrogen 24.8(H) 8.0 - 23.0 mg/dL 02/16/2024 10:34 AM [facility] Creatinine 1.17(H) 0.51 - 0.95 mg/dL 02/16/2024 10:34 AM [facility] GFR Estimate 47(L) >60 mL/min/1.7 3m2 02/16/2024 10:34 AM [facility] Calcium 9.1 8.8 - 10.4 mg/dL 02/16/2024 10:34 AM [facility] Comment:Reference intervals for this test were updated on 09/23/2023 to reflect our healthy population more accurately. There may be differences in the flagging of prior results with similar values performed with this method. Those prior results can be interpreted in the context of the updated reference intervals. Chloride 103 98 - 107 mmol/L 02/16/2024 10:34 AM [facility] Alkaline Phosphatase 82 40 - 150 U/L 02/16/2024 10:34 AM [facility] AST 49(H) 0 - 45 U/L 02/16/2024 10:34 AM [facility] ALT 66(H) 0 - 50 U/L 02/16/2024 10:34 AM [facility] Protein Total 5.7(L) 6.4 - 8.3 g/dL 02/16/2024 10:34 AM [facility] Albumin 4.0 3.5 - 5.2 g/dL 02/16/2024 10:34 AM CREATIVE ART DIRECTOR [facility] Bilirubin Total 0.9 <=1.2 mg/dL 02/16/2024 10:34 AM CREATIVE ART DIRECTOR [facility] Blood BLOOD SPECIMEN / Unknown Venipuncture / Unknown 02/16/2024 8:55 AM CREATIVE ART DIRECTOR 02/16/2024 10:06 AM CREATIVE ART DIRECTOR Jaclyn Thomason APRN, CNP LAB - BLOOD ORDERABLE S Final Result [facility] [address] Lab (1st floor, no room number) [place] [address], [facility] * (ABNORMAL) CBC with platelets (02/09/2024 6:08 AM CREATIVE ART DIRECTOR) WBC Count 4.7 4.0 - 11.0 10e3/uL 02/09/2024 9:13 AM CREATIVE ART DIRECTOR [facility] RBC Count 3.32(L) 3.80 - 5.20 10e6/uL 02/09/2024 9:13 AM CREATIVE ART DIRECTOR [facility] Hemoglobin 11.5(L) 11.7 - 15.7 g/dL 02/09/2024 9:13 AM CREATIVE ART DIRECTOR [facility] Hematocrit 34.0(L) 35.0 - 47.0 % 02/09/2024 9:13 AM CREATIVE ART DIRECTOR [facility] MCV 102(H) 78 - 100 fL 02/09/2024 9:13 AM CREATIVE ART DIRECTOR [facility] MCH 34.6(H) 26.5 - 33.0 pg 02/09/2024 9:13 AM CREATIVE ART DIRECTOR [facility] MCHC 33.8 31.5 - 36.5 g/dL 02/09/2024 9:13 AM CREATIVE ART DIRECTOR [facility] RDW 14.0 10.0 - 15.0 % 02/09/2024 9:13 AM CREATIVE ART DIRECTOR [facility] Platelet Count 165 150 - 450 10e3/uL 02/09/2024 9:13 AM CREATIVE ART DIRECTOR [facility] Blood BLOOD SPECIMEN / Unknown Venipuncture / Unknown 02/09/2024 6:08 AM CREATIVE ART DIRECTOR 02/09/2024 8:57 AM CREATIVE ART DIRECTOR Jaclyn Thomason APRN DIVIDING MACHINE OPERATOR HELPER LAB - BLOOD ORDERABLE S Final Result [facility] Lab [address] [facility] Lab (1st floor, no room number) [place] [address], [facility] * Dexa hip/pelvis/spine* (12/21/2020) Anatomical Region Laterality Modality Dexa Other Narrative 12/21/2020 [address] [facility], [address] [place] [address] Omega : 1945 Req Phys: Josiah Stockton MD Clinic: [place] Patient name: [facility] Dept No: [id number] BONE DENSITY Exam Date: 12/21/2020 EXAM: BONE MINERAL DENSITY (DEXA) EXAM LOCATION: [facility] DATE/TIME: 12/21/2020 3:46 PM INDICATION: Screening for osteoporosis. COMPARISON: Most recent examination 10/05/2001. TECHNIQUE: The study was performed using DEXA in the AP lumbar spine and AP femur using a Zopa Discovery C. FINDINGS: Using DEXA, the results [...] in the appropriate clinical setting. Dictated By: H a n s [place] Password protected electronic signature by: SHYAM Trans: SI Date Of Trans: 12/22/2020 11:39:00AM Date report approved and signed by interpreting physician: 12/22/2020 11:39:00AM Page 1 of 1 us Josiah Stockton MD IMG DEXA ORDERABLES Final Result * COLONOSCOPY (08/06/2016 7:10 AM CDT) COLONOSCOPY [facility] Patient Name: Griselda Lai Procedure Date: 08/06/2016 [...] The Olympus Peds Colonoscope Model #[id number]-H190L, Endora#131, SN#[id number] was introduced through the anus and advanced [...] perianal irritation. Procedure Code(s): --- Professional --- 11327, Colonoscopy, flexible; diagnostic, including collection of specimen(s) by brushing or washing, when performed (separate procedure) Diagnosis Code(s): --- Professional --- Z12.11, Encounter for screening for malignant neoplasm of colon R21, Rash and other nonspecific skin eruption CPT copyright 2016 [employer]. All rights reserved. 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 Advance Directives and Livin g Will 02/09/2024 POLST 02-06-2024 * Full Code (Latest Code Status on File) Date Activated Date Inactivated Comments 02/01/2024 1:10 PM 02/05/2024 3:46 PM All basic and advanced life-sustaining interventions are performed as appropriate Question Answer Comments Code status determined by: Discussion with patie nt/ legal decision maker Care Teams Network Support Manager Relationship Specialty Start Date End Date Gavi Cloud MD [address] [facility] [address] [place] [address] PCP - General Family Medicine 08/17/24 Hector Goode MD [address] [place] [address] Neurology 05/01/17 oJhn Cancino MD [address] [place] [address] Family Medicine - Sports Medicine 07/30/17 Rivas Delcid MD [address] [facility], [address] [place] [address] Assigned Surgical Provider 03/01/24 Blue Mensah MD Assigned Heart and Vascular Provider 12/30/24 Jasmin Maradiaga PA-C [address] [place] [address] Assigned PCP 01/06/25
--- OUTSIDE RECORDS SUMMARY | 2025-01-07 17:19 | XMS_ITS | Encounter Summary ---
Author Organization [facility] Address [address] [place] [address] Care Team Providers Care Office Machine Mechanic Name Role Phone Marcos Sandoval MD Primary Care Provider Unav ailable Hector Goode MD Unavailable John Cancino MD Unavailable [phone] Marcos Sandoval MD Unavailable UnavailKorin Cash MD Unavailable +- [phone] Korin Lamb MD Primary Care Provider [phone] Carl Farah MD Unavailable Unavailable Marcos Sandoval MD Unavailable UnavailKorin Cash MD Unavailable [phone] Gavi Cloud MD Unavailable +[phone] Jasmin Maradiaga PA-C Unavailable [phone] Itzel Polk APRN OVERLOCK COLLAR SETTER Unavailable Unavailable Carl Farah MD Unavailable Unavailable Jasmin Maradiaga PA-C Primary Care Provid er Gavi Cloud MD Unavailable [phone] Jasmin Maradiaga PA-C Unavailable [phone] Itzel Polk APRN OVERLOCK COLLAR SETTER Unavailable Unavailable Carl Farah MD Unavailable Unavailable Hector Goode MD Unavailable Jaclyn Thomason APRN OVERLOCK COLLAR SETTER Unavailable +[phone] [facility] Unavailable Rivas Delcid MD Unavailable Gavi Cloud MD Primary Care Provider + [phone] Gavi Cloud MD Unavailable [phone] Blue Mensah MD Unavailable Un available Jasmin Maradiaga PA-C Unavailable + [phone] Encounter Details Date Type Department Care Team (Late st Contact Info) Description 07/16/2001 Office Visit-[facility] Heart [address] [place] [address] Unknown, DoctorMD Social History Tobacco Use Types Packs/Day Years Used Date Smoking Tobacco: Never Alcohol Use Standard Drinks/Week Comments No 0 (1 standard drink = 0.6 oz pur e alcohol) on occ Comments No Sex and Gender Information Value Date Recorded Sex Assigned at Not on file 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 documented in this encounter Plan of Treatment Scheduled Procedures Name Priority Associated Diagnoses Date/Ti me ENDOSCOPIC RETROGRADE CHOLANGIOPANCREATOGRAPHY, COMPLEX Cholecystitis Choledocholithiasis with acute cholecystitis documented as of this encounter Visit Diagnoses Not on filedocumented in this encounter Care Teams Office Machine Mechanic Relationship Specialty Start Date End Date Marcos Sandoval MD NO INFO AVAILABLE 10/03/22 PCP - General 03/27/99 08/11/19 Korin Lamb MD [address] [address] PCP - General Family Practice 08/12/19 03/15/21 Jasmin Maradiaga PA-C [address], [address] [address] PCP - General Family Medicine 03/16/21 08/16/24 Gavi Cloud MD [address] [address] PCP - General Family Medicine 08/17/24 Hector Goode MD [address] [address] Neurology 05/01/17 John Cancino MD [address] [address] Family Medicine - Sports Medicine 07/30/17 Marcos Sandoval MD NO INFO AVAILABLE 10/03/22 Assigned PCP 02/08/18 06/05/19 Korin Lamb MD [address] [address] Assigned PCP 06/06/19 04/29/20 Carl Farah MD Assigned Heart and Vascular Provider 12/31/19 12/16/20 Marcos Sandoval MD NO INFO AVAILABLE 10/03/22 Assigned PCP 04/30/20 05/06/20 Korin Lamb MD [address] [address] Assigned PCP 05/07/20 05/28/20 Gavi Cloud MD [address] [address] Assigned PCP 05/29/20 01/06/21 Jasmin Maradiaga PA-C [address] [address] Assigned PCP 01/07/21 09/28/21 Itzel Polk APRN OVERLOCK COLLAR SETTER Assigned Heart and Vascular Provider 12/17/20 02/17/21 Carl Farah MD Assigned Heart and Vascular Provider 02/18/21 12/14/21 Gavi Cloud MD [address] [address] Assigned PCP 09/29/21 10/19/21 Jasmin Maradiaga PA-C [address] , [address] [address] Assigned PCP 10/20/21 10/29/24 Itzel Polk APRN OVERLOCK COLLAR SETTER Assigned Heart and Vascular Provider 12/15/21 05/17/22 Carl Farah MD [address] , [address] [address] Assigned Heart and Vascular Provider 05/18/22 12/29/24 Hector Goode MD [address] [facility] [address] Assigned Neuroscience Provider 07/01/23 12/29/24 Jaclyn Thomason APRN OVERLOCK COLLAR SETTER [address] [place] [address] Nurse Practitioner Geriatric Medicine 02/06/[address] [place] [phone] 02/06/24 02/23/24 Rivas Delcid MD [address] [facility], [address] [place] [address] Assigned Surgical Provider 03/01/24 Gavi Cloud MD [address] [address] Assigned PCP 10/30/24 01/05/25 Blue Mensah MD Assigned Heart and Vascular Provider 12/30/24 Jasmin Maradiaga PA-C [address], [address] [address] Assigned PCP 01/06/25 documented as of this encounter
--- OUTSIDE RECORDS SUMMARY | 2025-01-07 17:19 | XMS_ITS | Encounter Summary ---
Author Organization [facility] Address [address] [place] [address] Care Team Providers Care Inside Sales Director Name Role Phone Marcos Sandoval MD Primary Care Provider Unav ailable Hector Goode MD Unavailable John Cancino MD Unavailable [phone] Marcos Sandoval MD Unavailable UnavailKorin Cash MD Unavailable +- [phone] Korin Lamb MD Primary Care Provider [phone] Carl Farah MD Unavailable Unavailable Marcos Sandoval MD Unavailable UnavailKoirn Cash MD Unavailable [phone] Gavi Cloud MD Unavailable +[phone] Jasmin Maradiaga PA-C Unavailable [phone] Itzel Polk APRN IMPROVEMENT MANAGER Unavailable Unavailable Carl Farah MD Unavailable Unavailable Jasmin Maradiaga PA-C Primary Care Provid er Gavi Cloud MD Unavailable [phone] Jasmin Maradiaga PA-C Unavailable [phone] Itzel Polk APRN IMPROVEMENT MANAGER Unavailable Unavailable Carl Farah MD Unavailable Unavailable Hector Goode MD Unavailable Jaclyn Thomason APRN IMPROVEMENT MANAGER Unavailable [phone] [facility] Unavailable Rivas Delcid MD Unavailable Gavi Cloud MD Primary Care Provider + [phone] Gavi Cloud MD Unavailable [phone] Blue Mensah MD Unavailable Un available Jasmin Maradiaga PA-C Unavailable + [phone] Encounter Details Date Type Department Care Team (Late st Contact Info) Description 07/05/2002 Office Visit-[facility] Heart [address] [place] [address] Unknown, DoctorMD Social History Tobacco Use Types Packs/Day Years Used Date Smoking Tobacco: Never Alcohol Use Standard Drinks/Week Comments No 0 (1 standard drink = 0.6 oz pur e alcohol) on occ Comments No Sex and Gender Information Value Date Recorded Sex Assigned at Not on file 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 She was started on Gleevec. [...] The patient did have an echocardiogram at [facility] in April. I believe that echo was spurious. Her ejection fraction on today's echo is between 30-35%, which is a slight improvement from last year. Her Bio-Z test shows good cardiac output, good SVR, but reduced acceleration index, and reduced velocity index, consistent with her known cardiomyopathy. At this time I have not made any medic ation changes except to tell her if her blood pressure is running low, especially during these numbness events, she can drop the Coreg down to 12.5 b.i.d. We will continue all of her other medications. She does not need a biventricular pacer since she is not in class III or IV heart failure. We will see the patient back in six months [facility] 1. Return Visit 6 months Carl Farah M.D. cc:Edvin Neville M.D. Toño Bustillo M.D. documented in this encounter Plan of Treatment Scheduled Procedures Name Priority Associated Diagnoses Date/Ti me ENDOSCOPIC RETROGRADE CHOLANGIOPANCREATOGRAPHY, COMPLEX Cholecystitis Choledocholithiasis with acute cholecystitis documented as of this encounter Visit Diagnoses Not on filedocumented in this encounter Care Teams Inside Sales Director Relationship Specialty Start Date End Date Marcos Sandoval MD NO INFO AVAILABLE 10/03/22 PCP - General 03/27/99 08/11/19 Korin Lamb MD [address], [address] [place] [address] PCP - General Family Practice 08/12/19 03/15/21 Jasmin Maradiaga PA-C [address], [address] [place] [address] PCP - General Family Medicine 03/16/21 08/16/24 Gavi Cloud MD [address] [address] PCP - General Family Medicine 08/17/24 Hector Goode MD [address] [address] Neurology 05/01/17 John Cancino MD [address] [address] Family Medicine - Sports Medicine 07/30/17 Marcos Sandoval MD NO INFO AVAILABLE 10/03/22 Assigned PCP 02/08/18 06/05/19 Korin Lamb MD [address] [address] Assigned PCP 06/06/19 04/29/20 Carl Farah MD Assigned Heart and Vascular Provider 12/31/19 12/16/20 Marcos Sandoval MD NO INFO AVAILABLE 10/03/22 Assigned PCP 04/30/20 05/06/20 Korin Lamb MD [address] [address] Assigned PCP 05/07/20 05/28/20 Gavi Cloud MD [address] [address] Assigned PCP 05/29/20 01/06/21 Jasmin Maradiaga PA-C [address], [address] [place] [address] Assigned PCP 01/07/21 09/28/21 Itzel Polk APRN IMPROVEMENT MANAGER Assigned Heart and Vascular Provider 12/17/20 02/17/21 Carl Farah MD Assigned Heart and Vascular Provider 02/18/21 12/14/21 Gavi Cloud MD [address] [place] [address] Assigned PCP 09/29/21 10/19/21 Jasmin Maradiaga PA-C [address], [address] [place] [address] Assigned PCP 10/20/21 10/29/24 Itzel Polk APRN IMPROVEMENT MANAGER Assigned Heart and Vascular Provider 12/15/21 05/17/22 Carl Farah MD [address], [address] [address] Assigned Heart and Vascular Provider 05/18/22 12/29/24 Hector Goode MD [address] [facility] [id number] [place] [address] Assigned Neuroscience Provider 07/01/23 12/29/24 Jaclyn Thomason APRN IMPROVEMENT MANAGER [address] [place] [address] Nurse Practitioner Geriatric Medicine 02/06/24 [address] [facility], [facility] [address] [place] [address] 02/06/24 02/23/24 Rivas Delcid MD [address] [facility], [address] [place] [address] Assigned Surgical Provider 03/01/24 Gavi Cloud MD [address] [place] [address] Assigned PCP 10/30/24 01/05/25 Blue Mensah MD Assigned Heart and Vascular Provider 12/30/24 Jasmin Maradiaga PA-C [address], [address] [address] Assigned PCP 01/06/25 documented as of this encounter
--- OUTSIDE RECORDS SUMMARY | 2025-01-07 17:19 | XMS_ITS | Encounter Summary ---
Author Organization [facility] Address [address] [place] [address] Care Team Providers Care Industrial Methods Consultant Name Role Phone Marcos Sandoval MD Primary Care Provider Unav ailable Hector Goode MD Unavailable John Cancino MD Unavailable [phone] Marcos Sandoval MD Unavailable UnavailKorin Cash MD Unavailable +- [phone] Korin Lamb MD Primary Care Provider [phone] Calr Farah MD Unavailable Unavailable Marcos Sandoval MD Unavailable UnavailKorin Cash MD Unavailable [phone] Gavi Cloud MD Unavailable +[phone] Jasmin Maradiaga PA-C Unavailable +[phone] Itzel Polk APRN FLOOR GRINDER Unavailable Unavailable Carl Farah MD Unavailable Unavailable Jasmin Maradiaga PA-C Primary Care Provid er Gavi Cloud MD Unavailable [phone] Jasmin Maradiaga PA-C Unavailable [phone] Itzel Polk APRN FLOOR GRINDER Unavailable Unavailable Carl Farah MD Unavailable Unavailable Hector Goode MD Unavailable Jaclyn Thomason APRN FLOOR GRINDER Unavailable [phone] [facility] Unavailable Rivas Delcid MD Unavailable Gavi Cloud MD Primary Care Provider + [phone] Gavi Cloud MD Unavailable [phone] Blue Mensah MD Unavailable Un available Jasmin Maradiaga PA-C Unavailable + [phone] Encounter Details Date Type Department Care Team (Late st Contact Info) Description 12/15/2006 Office Visit-[facility] Heart [address] [place] [address] Carl Farah MD Social History Tobacco Use Types Packs/Day Years Used Date Smoking Tobacco: Never Alcohol Use Standard Drinks/Week Comments No 0 (1 standard drink = 0.6 oz pur e alcohol) on occ Comments No Sex and Gender Information Value Date Recorded Sex Assigned at Not on file 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 DATE: 12/15/2006 [facility] DATE OF : 1945 AGE: [age] years old Referring Physician: MARCOS SANDOVAL Referring Clinic: [facility] CURRENT DIAGNOSES 1. - Congestive Heart [...] asthma, CPAP machine, MRA/MRI of head at [facility] [place] coumadin stopped 02-12, hyperlipidemia Past Cardiac Illnesses: [...] lives alone; Place of - [place]; Spouse's Occupation - ; REVIEW OF SYSTEMS [...] filedocumented in this encounter Care Teams Industrial Methods Consultant Relationship Specialty Start Date End Date Marcos Sandoval MD NO INFO AVAILABLE 10/03/22 PCP - General 03/27/99 08/11/19 Korin Lamb MD [address] , [address] [address] PCP - General Family Practice 08/12/19 03/15/21 Jasmin Maradiaga PA-C [address] , [address] [address] PCP - General Family Medicine 03/16/21 08/16/24 Gavi Cloud MD [address] [address] PCP - General Family Medicine 08/17/24 Hector Goode MD [address] [place] [address] Neurology 05/01/17 John Cancino MD [address] [place] [address] Family Medicine - Sports Medicine 07/30/17 Marcos Sandoval MD NO INFO AVAILABLE 10/03/22 Assigned PCP 02/08/18 06/05/19 Korin Lamb MD [address] [address] Assigned PCP 06/06/19 04/29/20 Carl Farah MD Assigned Heart and Vascular Provider 12/31/19 12/16/20 Marcos Sandoval MD NO INFO AVAILABLE 10/03/22 Assigned PCP 04/30/20 05/06/20 Korin Lamb MD [address], [address] [place] [address] Assigned PCP 05/07/20 05/28/20 Gavi Cloud MD [address] [place] [address] Assigned PCP 05/29/20 01/06/21 Jasmin Maradiaga PA-C [address], [address] [place] [address] Assigned PCP 01/07/21 09/28/21 Itzel Polk APRN FLOOR GRINDER Assigned Heart and Vascular Provider 12/17/20 02/17/21 Carl Farah MD Assigned Heart and Vascular Provider 02/18/21 12/14/21 Gavi Cloud MD [address] [place] [address] Assigned PCP 09/29/21 10/19/21 Jasmin Maradiaga PA-C [address], [facility] [address] [place] [address] Assigned PCP 10/20/21 10/29/24 Itzel Polk APRN FLOOR GRINDER Assigned Heart and Vascular Provider 12/15/21 05/17/22 Carl Farah MD [address], [address] [place] [address] Assigned Heart and Vascular Provider 05/18/22 12/29/24 Hector Goode MD [address]09 [facility] [id number] [place] [address] Assigned Neuroscience Provider 07/01/23 12/29/24 KatelinJaclyn APRN FLOOR GRINDER [address] [place] [address] Nurse Practitioner Geriatric Medicine 02/06/24 4 [facility] [address] [place] [phone] 02/06/24 02/23/24 Rivas Delcid MD [address] [facility], [address] [place] [address] Assigned Surgical Provider 03/01/24 Gavi Cloud MD [address] [address] Assigned PCP 10/30/24 01/05/25 Blue Mensah MD Assigned Heart and Vascular Provider 12/30/24 Jasmin Maradiaga PA-C [address], [address] [place] [address] Assigned PCP 01/06/25 documented as of this encounter
--- OUTSIDE RECORDS SUMMARY | 2025-01-07 17:20 | XMS_ITS | Encounter Summary ---
Author Organization [facility] Address [address] [place] [address] Care Team Providers Care Jewelry Department Supervisor Name Role Phone Marcos Sandoval MD Primary Care Provider Unav ailable eHctor Goode MD Unavailable John Cancino MD Unavailable +[phone] Marcos Sandoval MD Unavailable UnavailKorin Cash MD Unavailable +- [phone] Korin Lamb MD Primary Care Provider [phone] Carl Farah MD Unavailable Unavailable Marcos Sandoval MD Unavailable UnavailKorin Cash MD Unavailable +[phone] Gavi Cloud MD Unavailable +[phone] Jasmin Maradiaga PA-C Unavailable +[phone] Itzel Polk APRN INCOME TAX AUDITOR Unavailable Unavailable Carl Farah MD Unavailable Unavailable Jasmin Maradiaga PA-C Primary Care Provid er Gvai Cloud MD Unavailable +[phone] Jasmin Maradiaga PA-C Unavailable +[phone] Itzel Polk APRN INCOME TAX AUDITOR Unavailable Unavailable Carl Farah MD Unavailable Unavailable Hector Goode MD Unavailable Jaclyn Thomason APRN INCOME TAX AUDITOR Unavailable [phone] uma [facility] Unavailable Rivas Delcid MD Unavailable Gavi Cloud MD Primary Care Provider + [phone] Gavi Cloud MD Unavailable +[phone] Blue Mensah MD Unavailable Un available Jasmin Maradiaga PA-C Unavailable + [phone] Encounter Details Date Type Department Care Team (Late st Contact Info) Description 04/22/2003 Office Visit-[facility] Heart [address] [place] [address] Unknown, DoctorMD Social History Tobacco Use Types Packs/Day Years Used Date Smoking Tobacco: Never Alcohol Use Standard Drinks/Week Comments No 0 (1 standard drink = 0.6 oz pur e alcohol) on occ Comments No Sex and Gender Information Value Date Recorded Sex Assigned at Not on file Legal Sex Female 2:58 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 She also has CML with [place] chromosome positive. She has been maintained on [...] Residence - lives alone; Place of - [place]; Hours Worked - 40 hours per week; [...] I would be happy to see her. Yumiko Georges documented in this encounter Plan of Treatment Scheduled Procedures Name Priority Associated Diagnoses Date/Ti me ENDOSCOPIC RETROGRADE CHOLANGIOPANCREATOGRAPHY, COMPLEX Cholecystitis Choledocholithiasis with acute cholecystitis documented as of this encounter Visit Diagnoses Not on filedocumented in this encounter Care Teams Jewelry Department Supervisor Relationship Specialty Start Date End Date Marcos Sandoval MD NO INFO AVAILABLE 10/03/22 PCP - General 03/27/99 08/11/19 Korin Lamb MD [address] [address] PCP - General Family Practice 08/12/19 03/15/21 Jasmin Maradiaga PA-C [address] [address] PCP - General Family Medicine 03/16/21 08/16/24 Gavi Cloud MD [address] [address] PCP - General Family Medicine 08/17/24 Hector Goode MD [address] [place] [address] [place], [place] [address] Neurology 05/01/17 John Cancino MD 909 [facility] [address] Family Medicine - Sports Medicine 07/30/17 Marcos Sandoval MD NO INFO AVAILABLE 10/03/22 Assigned PCP 02/08/18 06/05/19 Korin Lamb MD [address] [address] Assigned PCP 06/06/19 04/29/20 Carl Farah MD Assigned Heart and Vascular Provider 12/31/19 12/16/20 Marcos Sandoval MD NO INFO AVAILABLE 10/03/22 Assigned PCP 04/30/20 05/06/20 Korin Lamb MD [address] [address] Assigned PCP 05/07/20 05/28/20 Gavi Cloud MD [address] [address] Assigned PCP 05/29/20 01/06/21 Jasmin Maradiaga PA-C [address] [address] Assigned PCP 01/07/21 09/28/21 Itzel Polk APRN INCOME TAX AUDITOR Assigned Heart and Vascular Provider 12/17/20 02/17/21 Carl Farah MD Assigned Heart and Vascular Provider 02/18/21 12/14/21 Gavi Cloud MD [address] [place] [address] Assigned PCP 09/29/21 10/19/21 Jasmin Maradiaga PA-C [address], [address] [place] [address] Assigned PCP 10/20/21 10/29/24 Itzel Polk APRN INCOME TAX AUDITOR Assigned Heart and Vascular Provider 12/15/21 05/17/22 Carl Farah MD [address], [address] [address] Assigned Heart and Vascular Provider 05/18/22 12/29/24 Hector Goode MD 9 [facility]121[place] [address] Assigned Neuroscience Provider 07/01/23 12/29/24 Jaclyn Thomason APRN INCOME TAX AUDITOR [address] [place] [address] Nurse Practitioner Geriatric Medicine 02/06/[address] [place] [address] [place] [phone] 02/06/24 02/23/24 Rivas Delcid MD 6405 [facility], [address] [place] [address] Assigned Surgical Provider 03/01/24 Gavi Cloud MD [address] [address] Assigned PCP 10/30/24 01/05/25 Blue Mensah MD Assigned Heart and Vascular Provider 12/30/24 Jasmin Maradiaga PA-C [address], [address] [address] Assigned PCP 01/06/25 documented as of this encounter
--- OUTSIDE RECORDS SUMMARY | 2025-01-07 17:20 | XMS_ITS | Encounter Summary ---
Author Organization [facility] Address [address] [place] [address] Care Team Providers Care Concrete Pavement Installer Name Role Phone Marcos Sandoval MD Primary Care Provider Unav ailable Hector Goode MD Unavailable John Cancino MD Unavailable [phone] Marcos Sandoval MD Unavailable UnavailKorin Cash MD Unavailable +- [phone] Korin Lamb MD Primary Care Provider [phone] Carl Farah MD Unavailable Unavailable Marcos Sandoval MD Unavailable UnavailKorin Cash MD Unavailable [phone] Gavi Cloud MD Unavailable +[phone] Jasmin Maradiaga PA-C Unavailable +[phone] Itzel Polk APRN FITTER UP Unavailable Unavailable Carl Farah MD Unavailable Unavailable Jasmin Maradiaga PA-C Primary Care Provid er Gavi Cloud MD Unavailable +[phone] Jasmin Maradiaga PA-C Unavailable +[phone] Itzel Polk APRN FITTER UP Unavailable Unavailable Carl Farah MD Unavailable Unavailable Hector Goode MD Unavailable Jaclyn Thomason APRN FITTER UP Unavailable [phone] uma [facility] Unavailable Rivas Delcid MD Unavailable Gavi Cloud MD Primary Care Provider + [phone] Gavi Cloud MD Unavailable [phone] Blue Mensah MD Unavailable Un available Jasmin Maradiaga PA-C Unavailable + [phone] Encounter Details Date Type Department Care Team (Late st Contact Info) Description 08/19/2003 Office Visit-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 DATE: 08/19/2003 GRISELDA LAI DATE OF : 1945 AGE: [age] years old Referring Physician: MARCOS SANDOVAL Referring Clinic: [facility]. CURRENT DIAGNOSES 1. - Congestive Heart [...] Return Visit 6 months Carl Farah M.D. Electronically signed by [facility], Em[facility] Data Conversion at 07/22/2013 9:53 PM CDT documented in this encounter Plan of Treatment Scheduled Procedures Name Priority Associated Diagnoses Date/Ti me ENDOSCOPIC RETROGRADE CHOLANGIOPANCREATOGRAPHY, COMPLEX Cholecystitis Choledocholithiasis with acute cholecystitis documented as of this encounter Visit Diagnoses Not on filedocumented in this encounter Care Teams Concrete Pavement Installer Relationship Specialty Start Date End Date Marcos Sandoval MD NO INFO AVAILABLE 10/03/22 PCP - General 03/27/99 08/11/19 Korin Lamb MD [address] [place] [address] [address] PCP - General Family Practice 08/12/19 03/15/21 Jasmin Maradiaga PA-C [address] [place] [address] [address] PCP - General Family Medicine 03/16/21 08/16/24 Gavi Cloud MD [address] [address] PCP - General Family Medicine 08/17/24 Hector Goode MD [address] [place] [address] Neurology 05/01/17 John Cancino MD [address] [place] [address] Family Medicine - Sports Medicine 07/30/17 Marcos Sandoval MD NO INFO AVAILABLE 10/03/22 Assigned PCP 02/08/18 06/05/19 Korin Lamb MD [address], [address] [address] Assigned PCP 06/06/19 04/29/20 Carl Farah MD Assigned Heart and Vascular Provider 12/31/19 12/16/20 Marcos Sandoval MD NO INFO AVAILABLE 10/03/22 Assigned PCP 04/30/20 05/06/20 Korin Lamb MD [address], [address] [place] [address] Assigned PCP 05/07/20 05/28/20 Gavi Cloud MD [address] [address] Assigned PCP 05/29/20 01/06/21 Jasmin Maradiaga PA-C [address], [address] [place] [address] Assigned PCP 01/07/21 09/28/21 Itzel Polk APRN CNP Assigned Heart and Vascular Provider 12/17/20 02/17/21 Carl Farah MD Assigned Heart and Vascular Provider 02/18/21 12/14/21 Gavi Cloud MD [address] [address] Assigned PCP 09/29/21 10/19/21 Jasmin Maradiaga PA-C [address] [address] Assigned PCP 10/20/21 10/29/24 Itzel Polk APRN FITTER UP Assigned Heart and Vascular Provider 12/15/21 05/17/22 Carl Farah MD [address] [address] Assigned Heart and Vascular Provider 05/18/22 12/29/24 Hector Goode MD 909 [facility]121[place], [place] [address] Assigned Neuroscience Provider 07/01/23 12/29/24 Jaclyn Thomason APRN FITTER UP [address] [place] [address] Nurse Practitioner Geriatric Medicine 02/06/[address] [phone] 02/06/24 02/23/24 Rivas Delcid MD 6[address] [facility], [address] [place] [address] Assigned Surgical Provider 03/01/24 Gavi Cloud MD [address] [address] Assigned PCP 10/30/24 01/05/25 Blue Mensah MD Assigned Heart and Vascular Provider 12/30/24 Jasmin Maradiaga PA-C [address], [facility] [address] [place] [address] Assigned PCP 01/06/25 documented as of this encounter
--- OUTSIDE RECORDS SUMMARY | 2025-01-07 17:20 | XMS_ITS | Encounter Summary ---
Author Organization [facility] Address [address] [place] [address] Care Team Providers Care Administration Physician Name Role Phone Marcos Sandoval MD Primary Care Provider Unav ailable Hector Goode MD Unavailable John Cancino MD Unavailable [phone] Marcos Sandoval MD Unavailable UnavailKorin Cash MD Unavailable +- [phone] Korin Lamb MD Primary Care Provider [phone] Carl Farah MD Unavailable Unavailable Marcos Sandoval MD Unavailable UnavailKorin Cash MD Unavailable [phone] Gavi Cloud MD Unavailable +[phone] Jasmin Maradiaga PA-C Unavailable +[phone] Itzel Polk APRN HOME TEACHING GRADES 7 AND 8 TEACHER Unavailable Unavailable Carl Farah MD Unavailable Unavailable Jasmin Maradiaga PA-C Primary Care Provid er Gavi Cloud MD Unavailable [phone] Jasmin Maradiaga PA-C Unavailable +[phone] Itzel Polk APRN HOME TEACHING GRADES 7 AND 8 TEACHER Unavailable Unavailable Carl Farah MD Unavailable Unavailable Hector Goode MD Unavailable Jaclyn Thomason APRN HOME TEACHING GRADES 7 AND 8 TEACHER Unavailable [phone] [facility] Unavailable Rivas Delcid MD Unavailable Gavi Cloud MD Primary Care Provider + [phone] Gavi Cloud MD Unavailable [phone] Blue Mensah MD Unavailable Un available Jasmin Maradiaga PA-C Unavailable + [phone] Encounter Details Date Type Department Care Team (Late st Contact Info) Description 05/24/2013 Office Visit-[facility] Heart [address] [place] [address] Carl Farah MD Social History Tobacco Use Types Packs/Day Years Used Date Smoking Tobacco: Never Smokeless Tobacco: Never Alcohol Use Standard Drinks/Week Comments Yes 0 (1 standard drink = 0.6 oz pur e alcohol) VERY RARE Comments No Sex and Gender Information Value Date Recorded Sex Assigned at Not on file 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 DATE: 05/24/2013 GRISELDA LAI DATE OF : 1945 AGE: [age] years old Referring Physician: MARCOS SANDOVAL Referring Clinic: [facility] CURRENT DIAGNOSES 1. - Hypercholesterolemia, [...] asthma, CPAP machine, MRA/MRI of head at [facility] coumadin stopped 02-12, hyperlipidemia, familial- fascioscapularhumeral-muscular dystrophy, [...] on filedocumented in this encounter Care Teams Administration Physician Relationship Specialty Start Date End Date Marcos Sandoval MD NO INFO AVAILABLE 10/03/22 PCP - General 03/27/99 08/11/19 Korin Lamb MD [address] [address] PCP - General Family Practice 08/12/19 03/15/21 Jasmin Maradiaga PA-C [address] [address] PCP - General Family Medicine 03/16/21 08/16/24 Gavi Cloud MD [address] [address] PCP - General Family Medicine 08/17/24 Hector Goode MD [address] [facility] [place] [address] Neurology 05/01/17 John Cancino MD [address]09 [facility] [place], [place] [address] Family Medicine - Sports Medicine 07/30/17 Marcos Sandoval MD NO INFO AVAILABLE 10/03/22 Assigned PCP 02/08/18 06/05/19 Korin Lamb MD [address] , [address] [address] Assigned PCP 06/06/19 04/29/20 Carl Farah MD Assigned Heart and Vascular Provider 12/31/19 12/16/20 Marcos Sandoval MD NO INFO AVAILABLE 10/03/22 Assigned PCP 04/30/20 05/06/20 Korin Lamb MD [address], [address] [address] Assigned PCP 05/07/20 05/28/20 Gavi Cloud MD [address] [address] Assigned PCP 05/29/20 01/06/21 Jasmin Maradiaga PA-C [address], [address] [place] [address] Assigned PCP 01/07/21 09/28/21 Itzel Polk APRN HOME TEACHING GRADES 7 AND 8 TEACHER Assigned Heart and Vascular Provider 12/17/20 02/17/21 Carl Farah MD Assigned Heart and Vascular Provider 02/18/21 12/14/21 Gavi Cloud MD [address] [place] [address] Assigned PCP 09/29/21 10/19/21 Jasmin Maradiaga PA-C [address], [address] [place] [address] Assigned PCP 10/20/21 10/29/24 Itezl Polk APRN HOME TEACHING GRADES 7 AND 8 TEACHER Assigned Heart and Vascular Provider 12/15/21 05/17/22 Carl Farah MD [address], [address] [place] [address] Assigned Heart and Vascular Provider 05/18/22 12/29/24 Hector Goode MD [address] [facility] [id number] [address] Assigned Neuroscience Provider 07/01/23 12/29/24 Jaclyn Thomason APRN HOME TEACHING GRADES 7 AND [address] [place] [address] Nurse Practitioner Geriatric Medicine 02/06/[address] [place] [address], [place] [address] 02/06/24 02/23/24 Rivas Delcid MD [address] [facility], [address] [place] [address] Assigned Surgical Provider 03/01/24 Gaiv Cloud MD [address] [address] Assigned PCP 10/30/24 01/05/25 Blue Mensah MD Assigned Heart and Vascular Provider 12/30/24 Jasmin Maradiaga PA-C [address], [address] [address] Assigned PCP 01/06/25 documented as of this encounter
--- OUTSIDE RECORDS SUMMARY | 2025-01-07 17:20 | XMS_ITS | Encounter Summary ---
Author Organization [facility] Address [address] [place] [address] Care Team Providers Care Refrigerating Engineer Head Name Role Phone Marcos Sandoval MD Primary Care Provider Unav ailable Hector Goode MD Unavailable John Cancino MD Unavailable [phone] Marcos Sandoval MD Unavailable UnavailKorin Csah MD Unavailable +- [phone] Korin Lamb MD Primary Care Provider [phone] Carl Farah MD Unavailable Unavailable Marcos Sandoval MD Unavailable UnavailKorin Cash MD Unavailable [phone] Gavi Cloud MD Unavailable +[phone] Jasmin Maradiaga PA-C Unavailable [phone] Ian Polk APRN CANDY COOKER HELPER Unavailable Unavailable Carl Farah MD Unavailable Unavailable Jasmin Maradiaga PA-C Primary Care Provid er Gavi Cloud MD Unavailable [phone] Jasmin Maradiaga PA-C Unavailable +[phone] Ian Polk APRN CANDY COOKER HELPER Unavailable Unavailable Carl Farah MD Unavailable Unavailable Hector Goode MD Unavailable Jaclyn Thomason APRN CANDY COOKER HELPER Unavailable [phone] [facility] Unavailable Rivas Delcid MD Unavailable Gavi Cloud MD Primary Care Provider + [phone] Gavi Cloud MD Unavailable [phone] Blue Mensah MD Unavailable Un available Jasmin Maradiaga PA-C Unavailable + [phone] Encounter Details Date Type Department Care Team (Late st Contact Info) Description 02/03/2006 Office Visit-[facility] Heart [address] [place] [address] Unknown, DoctorMD Social History Tobacco Use Types Packs/Day Years Used Date Smoking Tobacco: Never Alcohol Use Standard Drinks/Week Comments No 0 (1 standard drink = 0.6 oz pur e alcohol) on occ Comments No Sex and Gender Information Value Date Recorded Sex Assigned at Not on file 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 DATE: 02/03/2006 GRISELDA LAI DATE OF : 1945 AGE: [age] years old Referring Physician: MARCOS SANDOVAL Referring Clinic: [facility]. CURRENT DIAGNOSES 1. - Cardiomyopathy Idiopathic, [...] on filedocumented in this encounter Care Teams Refrigerating Engineer Head Relationship Specialty Start Date End Date Marcos Sandoval MD NO INFO AVAILABLE 10/03/22 PCP - General 03/27/99 08/11/19 Korin Lamb MD [address] , [facility] 100 [place] [address] PCP - General Family Practice 08/12/19 03/15/21 Jasmin Maradiaga PA-C [address], [address] [address] PCP - General Family Medicine 03/16/21 08/16/24 Gavi Cloud MD [address] [address] PCP - General Family Medicine 08/17/24 Hector Goode MD [address] [address] Neurology 05/01/17 John Cancino MD [address] [address] Family Medicine - Sports Medicine 07/30/17 Marcos Sandoval MD NO INFO AVAILABLE 10/03/22 Assigned PCP 02/08/18 06/05/19 Korin Lamb MD [address] , [address] [address] Assigned PCP 06/06/19 04/29/20 Carl Farah MD Assigned Heart and Vascular Provider 12/31/19 12/16/20 Marcos Sandoval MD NO INFO AVAILABLE 10/03/22 Assigned PCP 04/30/20 05/06/20 Korin Lamb MD [address] , [address] [address] Assigned PCP 05/07/20 05/28/20 Gavi Cloud MD [address] [place] [address], [place] [address] Assigned PCP 05/29/20 01/06/21 Jasmin Maradiaga PA-C [address], [address] [place] [address] Assigned PCP 01/07/21 09/28/21 Ian Polk APRN CANDY COOKER HELPER Assigned Heart and Vascular Provider 12/17/20 02/17/21 Carl Farah MD Assigned Heart and Vascular Provider 02/18/21 12/14/21 Gavi Cloud MD [address] [address] Assigned PCP 09/29/21 10/19/21 Jasmin Maradiaga PA-C [address], [facility] 100 [place] [address] Assigned PCP 10/20/21 10/29/24 Ian Polk APRN CANDY COOKER HELPER Assigned Heart and Vascular Provider 12/15/21 05/17/22 Carl Farah MD [address], [address] [place] [address] Assigned Heart and Vascular Provider 05/18/22 12/29/24 Hector Goode MD 909 [facility] [place] [address] Assigned Neuroscience Provider 07/01/23 12/29/24 Jaclyn Thomason APRN CANDY COOKER HELPER [address]00 [place] [address] Nurse Practitioner Geriatric Medicine 02/06/24 4 [facility], [facility] [address] [place] [phone] 02/06/24 02/23/24 Rivas Delcid MD 6405 [facility], [address] [place] [address] Assigned Surgical Provider 03/01/24 Gavi Cloud MD [address] [address] Assigned PCP 10/30/24 01/05/25 Blue Mensah MD Assigned Heart and Vascular Provider 12/30/24 Jasmin Maradiaga PA-C [address], [address] [address] Assigned PCP 01/06/25 documented as of this encounter
--- OUTSIDE RECORDS SUMMARY | 2025-01-07 17:20 | XMS_ITS | Encounter Summary ---
Author Organization [place] Address [address] [place] [address] Care Team Providers Care Live Study Manager Name Role Phone Roslyn Sandoval MD Primary Care Provider Unav ailable Hector Goode MD Unavailable John Cancino MD Unavailable [phone] Roslyn Sandoval MD Unavailable UnavailKorin Cash MD Unavailable +- 03 Korin Lamb MD Primary Care Provider [phone] Carl Farah MD Unavailable Unavailable Roslyn Sandoval MD Unavailable UnavailKorin Cash MD Unavailable [phone] Gavi Cloud MD Unavailable +[phone] Jasmin Maradiaga PA-C Unavailable [phone] Itzel Polk APRN PARKS RECREATION DIRECTOR Unavailable Unavailable Carl Farah MD Unavailable Unavailable Jasmin Maradiaga PA-C Primary Care Provid er Gavi Cloud MD Unavailable +[phone] Jasmin Maradiaga PA-C Unavailable +[phone] Itzel Polk APRN PARKS RECREATION DIRECTOR Unavailable Unavailable Carl Farah MD Unavailable Unavailable Hector Goode MD Unavailable Jaclyn Thomason APRN PARKS RECREATION DIRECTOR Unavailable [phone] [facility] Unavailable Rivas Delcid MD Unavailable Gavi Cloud MD Primary Care Provider + [phone] Gavi Cloud MD Unavailable [phone] Blue Mensah MD Unavailable Un available Jasmin Maradiaga PA-C Unavailable + [phone] Reason for Visit * Reason Comments Medication Refill Encounter Details Date Type Department Care Team (Late st Contact Info) Description 07/15/2014 Refill [facility] [address] [address] Rosyln Sandoval MD NO INFO AVAILABLE 10/03/22 Medication Refill Social History Tobacco Use Types Packs/Day Years Used Date Smoking Tobacco: Never Smokeless Tobacco: Never Alcohol Use Standard Drinks/Week Comments Yes 0 (1 standard drink = 0.6 oz pur e alcohol) VERY RARE Comments No Sex and Gender Information Value Date Recorded Sex Assigned at Not on file 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 Gender Identity Not on file Sexual Orientation Not on file documented as of this encounter Plan of Treatment Scheduled Procedures Name Priority Associated Diagnoses Date/Ti ga ENDOSCOPIC RETROGRADE CHOLANGIOPANCREATOGRAPHY, COMPLEX Cholecystitis Choledocholithiasis with acute cholecystitis documented as of this encounter Visit Diagnoses Not on filedocumented in this encounter Care Teams Live Study Manager Relationship Specialty Start Date End Date Roslyn Sandoval MD NO INFO AVAILABLE 10/03/22 PCP - General 03/27/99 08/11/19 Korin Lamb MD [address] [id number] PCP - General Family Practice 08/12/19 03/15/21 Jasmin Maradiaga PA-C [address] [address] PCP - General Family Medicine 03/16/21 08/16/24 Gavi Cloud MD [address] [address] PCP - General Family Medicine 08/17/24 Hector Goode MD [address] [address] Neurology 05/01/17 John Cancino MD [address] [address] Family Medicine - Sports Medicine 07/30/17 Roslyn Sandoval MD NO INFO AVAILABLE 10/03/22 Assigned PCP 02/08/18 06/05/19 Korin Lamb MD [address] [address] Assigned PCP 06/06/19 04/29/20 Carl Farah MD Assigned Heart and Vascular Provider 12/31/19 12/16/20 Roslyn Sandoval MD NO INFO AVAILABLE 10/03/22 Assigned PCP 04/30/20 05/06/20 Korin Lamb MD [address] [address] Assigned PCP 05/07/20 05/28/20 Gavi Cloud MD [address] [address] Assigned PCP 05/29/20 01/06/21 Jasmin Maradiaga PA-C [address], [address] [address] Assigned PCP 01/07/21 09/28/21 Itzel Polk APRN PARKS RECREATION DIRECTOR Assigned Heart and Vascular Provider 12/17/20 02/17/21 Carl Farah MD Assigned Heart and Vascular Provider 02/18/21 12/14/21 Gavi Cloud MD [address] [address] Assigned PCP 09/29/21 10/19/21 Jasmin Maradiaga PA-C [address], [address] [address] Assigned PCP 10/20/21 10/29/24 Itzel Polk APRN PARKS RECREATION DIRECTOR Assigned Heart and Vascular Provider 12/15/21 05/17/22 Carl Farah MD [address], [address] [address] Assigned Heart and Vascular Provider 05/18/22 12/29/24 Hector Goode MD 909 [id number] [place] [address] Assigned Neuroscience Provider 07/01/23 12/29/24 Jaclyn Thomason APRN PARKS RECREATION DIRECTOR [address] [place] [address] Nurse Practitioner Geriatric Medicine 02/06/24 4 Tc, [facility] [id number] [place] [phone] 02/06/24 02/23/24 Rivas Delcid MD 6405 [facility], [address] [place] [address] Assigned Surgical Provider 03/01/24 Gavi Cloud MD [address] [address] Assigned PCP 10/30/24 01/05/25 Bleu Mensah MD Assigned Heart and Vascular Provider 12/30/24 Jasmin Maradiaga PA-C [address], [address] [address] Assigned PCP 01/06/25 documented as of this encounter
--- OUTSIDE RECORDS SUMMARY | 2025-01-07 17:20 | XMS_ITS | Encounter Summary ---
Author Organization [place] Address [address] [place] [address] Care Team Providers Care University Librarian Name Role Phone Marcos Sandoval MD Primary Care Provider Unav ailable Hector Goode MD Unavailable John Cancino MD Unavailable [phone] Marcos Sandoval MD Unavailable UnavailKorin Cash MD Unavailable +- [phone] Korin Lamb MD Primary Care Provider [phone] Carl Farah MD Unavailable Unavailable Marcos Sandoval MD Unavailable UnavailKorin Cash MD Unavailable [phone] Gavi Cloud MD Unavailable +[phone] Jasmin Maradiaga PA-C Unavailable [phone] Ian Polk APRN SECURITIES ATTORNEY Unavailable Unavailable Carl Farah MD Unavailable Unavailable Jasmin Maradiaga PA-C Primary Care Provid er Gavi Cloud MD Unavailable [phone] Jasmin Maradiaga PA-C Unavailable [phone] Ian Polk APRN SECURITIES ATTORNEY Unavailable Unavailable Carl Farah MD Unavailable Unavailable Hector Goode MD Unavailable Jaclyn Thomason APRN SECURITIES ATTORNEY Unavailable [phone] [facility] Unavailable Rivas Delcid MD Unavailable Gavi Cloud MD Primary Care Provider + [phone] Gavi Cloud MD Unavailable [phone] Blue Mensah MD Unavailable Un available Jasmin Maradiaga PA-C Unavailable + [phone] Encounter Details Date Type Department Care Team (Late st Contact Info) Description 03/14/2006 Office Visit-[facility] [address] [facility] [address] [place] [address] Sandra Chris PA-C [address] [place] [address] Social History Tobacco Use Types Packs/Day Years Used Date Smoking Tobacco: Never Alcohol Use Standard Drinks/Week Comments No 0 (1 standard drink = 0.6 oz pur e alcohol) on occ Comments No Sex and Gender Information Value Date Recorded Sex Assigned at Not on file 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 CURRENT DIAGNOSES 1. - Congestive [...] ILLNESS This pleasant 61-year-old woman returns to [facility] with concerns for worsening dyspnea. [...] 06/13 PMHx Echo Results: LA size, Echo 4-03 [...] - lives alone; Place of - [place]; Spouse's Occupation - ; REVIEW OF SYSTEMS [...] Breath with minimal exertion, Sandra Lo RN, SECURITIES ATTORNEY documented in this encounter Plan of Treatment Scheduled Procedures Name Priority Associated Diagnoses Date/Ti me ENDOSCOPIC RETROGRADE CHOLANGIOPANCREATOGRAPHY, COMPLEX Cholecystitis Choledocholithiasis with acute cholecystitis documented as of this encounter Visit Diagnoses Not on filedocumented in this encounter Care Teams University Librarian Relationship Specialty Start Date End Date Marcos Sandoval MD NO INFO AVAILABLE 10/03/22 PCP - General 03/27/99 08/11/19 Korin Lamb MD [address] [address] PCP - General Family Practice 08/12/19 03/15/21 Jasmin Maradiaga PA-C [address] [address] PCP - General Family Medicine 03/16/21 08/16/24 Gavi Cloud MD [address] [address] PCP - General Family Medicine 08/17/24 Hector Goode MD [address] [place] [address] Neurology 05/01/17 John Cancino MD [address] [place] [address] Family Medicine - Sports Medicine 07/30/17 Marcos Sandoval MD NO INFO AVAILABLE 10/03/22 Assigned PCP 02/08/18 06/05/19 Korin Lamb MD [address], [address] [address] Assigned PCP 06/06/19 04/29/20 Carl Farah MD Assigned Heart and Vascular Provider 12/31/19 12/16/20 Marcos Sandoval MD NO INFO AVAILABLE 10/03/22 Assigned PCP 04/30/20 05/06/20 Korin Lamb MD [address], [address] [address] Assigned PCP 05/07/20 05/28/20 Gavi Cloud MD [address] [address] Assigned PCP 05/29/20 01/06/21 Jasmin Maradiaga PA-C [address], [address] [address] Assigned PCP 01/07/21 09/28/21 Ian Polk APRN CNP Assigned Heart and Vascular Provider 12/17/20 02/17/21 Carl Farah MD Assigned Heart and Vascular Provider 02/18/21 12/14/21 Gavi Cloud MD [address] [address] Assigned PCP 09/29/21 10/19/21 Jasmin Maradiaga PA-C [address] [address] Assigned PCP 10/20/21 10/29/24 Ian Polk APRN SECURITIES ATTORNEY Assigned Heart and Vascular Provider 12/15/21 05/17/22 Carl Farah MD [address] [address] Assigned Heart and Vascular Provider 05/18/22 12/29/24 Hector Goode MD 909 [facility]121[place], [place] [address] Assigned Neuroscience Provider 07/01/23 12/29/24 Jaclyn Thomason APRN SECURITIES ATTORNEY [address] [place] [address] Nurse Practitioner Geriatric Medicine 02/06/24 4 [facility], [address] [phone] 02/06/24 02/23/24 Rivas Delcid MD 6405 [facility] [address] [place] [address] Assigned Surgical Provider 03/01/24 Gavi Cloud MD [address] [address] Assigned PCP 10/30/24 01/05/25 Blue Mensah MD Assigned Heart and Vascular Provider 12/30/24 Jasmin Maradiaga PA-C [address], [address] [place] [address] Assigned PCP 01/06/25 documented as of this encounter
--- OUTSIDE RECORDS SUMMARY | 2025-01-07 17:20 | XMS_ITS | Encounter Summary ---
Author Organization [facility] Address [address] [place] [address] Care Team Providers Care Laborer Laboratory Name Role Phone Roslyn Sandoval MD Primary Care Provider Unav ailable Hector Goode MD Unavailable John Cancino MD Unavailable [phone] Roslyn Sandoval MD Unavailable UnavailKorin Cash MD Unavailable +- [phone] Korin Lamb MD Primary Care Provider [phone] Carl Farah MD Unavailable Unavailable Roslyn Sandoval MD Unavailable UnavailKorin Cash MD Unavailable [phone] Gavi Cloud MD Unavailable +[phone] Jasmin Maradiaga PA-C Unavailable [phone] Itzel Polk APRN TYPISTS SUPERVISOR Unavailable Unavailable Carl Farah MD Unavailable Unavailable Jasmin Mraadiaga PA-C Primary Care Provid er Gavi Cloud MD Unavailable [phone] Jasmin Maradiaga PA-C Unavailable [phone] Itzel Polk APRN TYPISTS SUPERVISOR Unavailable Unavailable Carl Farah MD Unavailable Unavailable Hector Goode MD Unavailable Jaclyn Thomason APRN TYPISTS SUPERVISOR Unavailable [phone] [facility], [facility] Unavailable Rivas Delcid MD Unavailable Gavi Cloud MD Primary Care Provider + [phone] Gavi Cloud MD Unavailable [phone] Blue Mensah MD Unavailable Un available Jasmin Maradiaga PA-C Unavailable + [phone] Encounter Details Date Type Department Care Team (Late st Contact Info) Description 07/19/2005 Abstract [facility] [address] [place] [address] Roslyn Sandoval MD NO INFO AVAILABLE 10/03/22 ABSTRACTING RESULTS (Primary Dx) Social History Tobacco Use Types Packs/Day Years Used Date Smoking Tobacco: Never Alcohol Use Standard Drinks/Week Comments No 0 (1 standard drink = 0.6 oz pur e alcohol) on occ Comments No Sex and Gender Information Value Date Recorded Sex Assigned at Not on file 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 Gender Identity Not on file Sexual [...] Primary documented in this encounter Care Teams Laborer Laboratory Relationship Specialty Start Date End Date Roslyn Sandoval MD NO INFO AVAILABLE 10/03/22 PCP - General 03/27/99 08/11/19 Korin Lamb MD [address] , [address] [address] PCP - General Family Practice 08/12/19 03/15/21 Jasmin Maradiaga PA-C [address] [address] PCP - General Family Medicine 03/16/21 08/16/24 Gavi Cloud MD [address] [address] PCP - General Family Medicine 08/17/24 Hector Goode MD [address] [place] [address] Neurology 05/01/17 John Cacnino MD [address] [place] [address] Family Medicine - Sports Medicine 07/30/17 Roslyn Sandoval MD NO INFO AVAILABLE 10/03/22 Assigned PCP 02/08/18 06/05/19 Korin Lamb MD [address] [address] Assigned PCP 06/06/19 04/29/20 Carl Farah MD Assigned Heart and Vascular Provider 12/31/19 12/16/20 Roslyn Sandoval MD NO INFO AVAILABLE 10/03/22 Assigned PCP 04/30/20 05/06/20 Korin Lamb MD [address], [facility] [address] [place] [address] Assigned PCP 05/07/20 05/28/20 Gavi Cloud MD [address] [place] [address] Assigned PCP 05/29/20 01/06/21 Jasmin Maradiaga PA-C [address], [facility] [address] [place] [address] Assigned PCP 01/07/21 09/28/21 Itzel Polk APRN CNP Assigned Heart and Vascular Provider 12/17/20 02/17/21 Carl Farah MD Assigned Heart and Vascular Provider 02/18/21 12/14/21 Gavi Cloud MD [address] [place] [address] Assigned PCP 09/29/21 10/19/21 Jasmin Maradiaga PA-C [address], [address] [place] [address] Assigned PCP 10/20/21 10/29/24 Itzel Polk APRN TYPISTS SUPERVISOR Assigned Heart and Vascular Provider 12/15/21 05/17/22 Carl Farah MD [address] , [address] [address] Assigned Heart and Vascular Provider 05/18/22 12/29/24 Hector Goode MD 909 [facility] [id number] [place] [address] Assigned Neuroscience Provider 07/01/23 12/29/24 Jaclyn Thomason APRN TYPISTS SUPERVISOR [address] [place] [address] Nurse Practitioner Geriatric Medicine 02/06/[address] [place] [phone] 02/06/24 02/23/24 Rivas Delcid MD 6405 [facility], [address] [place] [address] Assigned Surgical Provider 03/01/24 Gavi Cloud MD [address] [address] Assigned PCP 10/30/24 01/05/25 Blue Mensah MD Assigned Heart and Vascular Provider 12/30/24 Jasmin Maradiaga PA-C [address] , [address] [address] Assigned PCP 01/06/25 documented as of this encounter
--- OUTSIDE RECORDS SUMMARY | 2025-01-07 17:20 | XMS_ITS | Encounter Summary ---
Author Organization [place] Address [address] [place] [address] Care Team Providers Care Entry Level Web Developer Name Role Phone Marcos Sandoval MD Primary Care Provider Unav ailable Hector Goode MD Unavailable John Cancino MD Unavailable [phone] Marcos Sandoval MD Unavailable UnavailKorin Cash MD Unavailable +- [phone] Korin Lamb MD Primary Care Provider [phone] Carl Farah MD Unavailable Unavailable Marcos Sandoval MD Unavailable UnavailKorin Cash MD Unavailable [phone] Gavi Cloud MD Unavailable +[phone] Jasmin Maradiaga PA-C Unavailable [phone] Itzel Polk APRN TRANSPORT TECH Unavailable Unavailable Carl Farah MD Unavailable Unavailable Jasmin Maradiaga PA-C Primary Care Provid er Gavi Cloud MD Unavailable [phone] Jasmin Maradiaga PA-C Unavailable [phone] Itzel Polk APRN TRANSPORT TECH Unavailable Unavailable Carl Farah MD Unavailable Unavailable Hector Goode MD Unavailable Jaclyn Thomason APRN TRANSPORT TECH Unavailable [phone] Rivas Delcid MD Unavailable Gavi Cloud MD Primary Care Provider + [phone] Gavi Cloud MD Unavailable [phone] Blue Mensah MD Unavailable Un available Jasmin Maradiaga PA-C Unavailable + [phone] Encounter Details Date Type Department Care Team (Late st Contact Info) Description 11/10/2002 Office Visit-[facility] [address] [place] [address] Unknown, DoctorMD Social History Tobacco Use Types Packs/Day Years Used Date Smoking Tobacco: Never Alcohol Use Standard Drinks/Week Comments No 0 (1 standard drink = 0.6 oz pur e alcohol) on occ Comments No Sex and Gender Information Value Date Recorded Sex Assigned at Not on file 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 She also went to [facility] for evaluation, in addition to [facility]. She describes a peculiar syndrome of flushing in her chest, although I am not sure that she is actually red, a heartburn feeling, and then garbled speech. The episodes will last for an hour or so. She was diagnosed with a TIA. She eventually went on to [facility]. 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 She had been on Coumadin. [facility] told them to stop it. I had [...] on filedocumented in this encounter Care Teams Entry Level Web Developer Relationship Specialty Start Date End Date Marcos Sandoval MD NO INFO AVAILABLE 10/03/22 PCP - General 03/27/99 08/11/19 oKrin Lamb MD [address] , [address] [address] PCP - General Family Practice 08/12/19 03/15/21 Jasmin Maradiaga PA-C [address] [address] PCP - General Family Medicine 03/16/21 08/16/24 Gavi Cloud MD [address] [address] PCP - General Family Medicine 08/17/24 Hector Goode MD [address] [place] [address] Neurology 05/01/17 John Cancino MD [address] [place] [address] Family Medicine - Sports Medicine 07/30/17 Marcos Sandoval MD NO INFO AVAILABLE 10/03/22 Assigned PCP 02/08/18 06/05/19 Korin Lamb MD [address] [address] Assigned PCP 06/06/19 04/29/20 Carl Farah MD Assigned Heart and Vascular Provider 12/31/19 12/16/20 Marcos Sandoval MD NO INFO AVAILABLE 10/03/22 Assigned PCP 04/30/20 05/06/20 Korin Lamb MD [address], [address] [place] [address] Assigned PCP 05/07/20 05/28/20 Gavi Cloud MD [address] [address] Assigned PCP 05/29/20 01/06/21 Jasmin Maradiaga PA-C [address], [address] [address] Assigned PCP 01/07/21 09/28/21 Itzel Polk APRN CNP Assigned Heart and Vascular Provider 12/17/20 02/17/21 Carl Farah MD Assigned Heart and Vascular Provider 02/18/21 12/14/21 Gavi Cloud MD [address] [address] Assigned PCP 09/29/21 10/19/21 Jasmin Maradiaga PA-C [address] , [address] [address] Assigned PCP 10/20/21 10/29/24 Itzel Polk APRN TRANSPORT TECH Assigned Heart and Vascular Provider 12/15/21 05/17/22 Carl Farah MD [address] , [address] [address] Assigned Heart and Vascular Provider 05/18/22 12/29/24 Hector Goode MD 909 [facility] [id number] [place] [address] Assigned Neuroscience Provider 07/01/23 12/29/24 Jaclyn Thomason APRN TRANSPORT TECH [facility] [place] [address] Nurse Practitioner Geriatric Medicine 02/06/[address] [place] [phone] 02/06/24 02/23/24 Rivas Delcid MD 6405 [facility], [address] [place] [address] Assigned Surgical Provider 03/01/24 Gavi Cloud MD [address] [address] Assigned PCP 10/30/24 01/05/25 Blue Mensah MD Assigned Heart and Vascular Provider 12/30/24 Jasmin Maradiaga PA-C [address] [address] Assigned PCP 01/06/25 documented as of this encounter
--- OUTSIDE RECORDS SUMMARY | 2025-01-07 17:20 | XMS_ITS | Encounter Summary ---
Author Organization [place] Address [address] [place] [address] Care Team Providers Care Choker Hooker Name Role Phone Marcos Sandoval MD Primary Care Provider Unav ailable Hector Goode MD Unavailable John Cancino MD Unavailable [phone] Marcos Sandoval MD Unavailable UnavailKorin Cash MD Unavailable +- [phone] Korin Lamb MD Primary Care Provider [phone] Carl Farah MD Unavailable Unavailable Marcos Sandoval MD Unavailable UnavailKorin Cash MD Unavailable [phone] Gavi Cloud MD Unavailable +[phone] Jasmin Maradiaga PA-C Unavailable +[phone] Itzel Polk APRN FISHERIES SPECIALIST Unavailable Unavailable Carl Farah MD Unavailable Unavailable Jasmin Maradiaga PA-C Primary Care Provid er Gavi Cloud MD Unavailable [phone] Jasmin Maradiaga PA-C Unavailable [phone] Itzel Polk APRN FISHERIES SPECIALIST Unavailable Unavailable Carl Farah MD Unavailable Unavailable Hector Goode MD Unavailable Jaclyn Thomason APRN FISHERIES SPECIALIST Unavailable [phone] [facility] Unavailable Rivas Delcid MD Unavailable Gavi Cloud MD Primary Care Provider + [phone] Gavi Cloud MD Unavailable [phone] Blue Mensah MD Unavailable Un available Jasmin Maradiaga PA-C Unavailable + [phone] Encounter Details Date Type Department Care Team (Late st Contact Info) Description 12/11/2005 Office Visit-[facility] Heart [address] [place] [address] Unknown, DoctorMD Social History Tobacco Use Types Packs/Day Years Used Date Smoking Tobacco: Never Alcohol Use Standard Drinks/Week Comments No 0 (1 standard drink = 0.6 oz pur e alcohol) on occ Comments No Sex and Gender Information Value Date Recorded Sex Assigned at Not on file 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 DATE: 12/03/2005 GRISELDA LAI DATE OF : 1945 AGE: [age] years old Referring Physician: MARCOS SANDOVAL Referring Clinic: [facility]. CURRENT DIAGNOSES 1. - Cardiomyopathy Idiopathic, [...] met actually when she was admitted to [facility] a while back with tachycardia and low potassium almost exactly a year ago. Griselda is a complex lady. She is quite bright. She is involved with her children and grandchildren and intends to live a long time and stay involved in their activities. She is currently traveling to [place] several times a week to visit her father who is in a detention. She finds it difficult toget about and [...] her writing arm. She finds she can automatically do normal tasks using that arm. The second [...] history;Residence - lives alone; Place of - [place]; Hours Worked - 40 hours per week; [...] her better than Saul. Jaspreet Dawson M.D. Electronically signed by [facility], [facility] Data Conversion at 07/22/2013 9:53 PM CDT documented in this encounter Plan of Treatment Scheduled Procedures Name Priority Associated Diagnoses Date/Ti me ENDOSCOPIC RETROGRADE CHOLANGIOPANCREATOGRAPHY, COMPLEX Cholecystitis Choledocholithiasis with acute cholecystitis documented as of this encounter Visit Diagnoses Not on filedocumented in this encounter Care Teams Choker Hooker Relationship Specialty Start Date End Date Marcos Sandoval MD NO INFO AVAILABLE 10/03/22 PCP - General 03/27/99 08/11/19 Korin Lamb MD [address] [address] PCP - General Family Practice 08/12/19 03/15/21 Jasmin Maradiaga PA-C [address] [address] PCP - General Family Medicine 03/16/21 08/16/24 Gavi Cloud MD [address] [address] PCP - General Family Medicine 08/17/24 Hector Goode MD [id number] [place] [address] Neurology 05/01/17 John Cancino MD [address] [place] [address] Family Medicine - Sports Medicine 07/30/17 Marcos Sandoval MD NO INFO AVAILABLE 10/03/22 Assigned PCP 02/08/18 06/05/19 Korin Lamb MD [address] [address] Assigned PCP 06/06/19 04/29/20 Carl Farah MD Assigned Heart and Vascular Provider 12/31/19 12/16/20 Marcos Sandoval MD NO INFO AVAILABLE 10/03/22 Assigned PCP 04/30/20 05/06/20 Korin Lamb MD [address] [address] Assigned PCP 05/07/20 05/28/20 Gavi Cloud MD [address] [address] Assigned PCP 05/29/20 01/06/21 Jasmin Maradiaga PA-C [address] [place] [address] Assigned PCP 01/07/21 09/28/21 Itzel Polk APRN FISHERIES SPECIALIST Assigned Heart and Vascular Provider 12/17/20 02/17/21 Carl Farah MD Assigned Heart and Vascular Provider 02/18/21 12/14/21 Gavi Cloud MD [address] [place] [address] Assigned PCP 09/29/21 10/19/21 Jasmin Maradiaga PA-C [address] [place] [address] Assigned PCP 10/20/21 10/29/24 Itzel Polk APRN FISHERIES SPECIALIST Assigned Heart and Vascular Provider 12/15/21 05/17/22 Carl Farah MD [address] [place] [address] Assigned Heart and Vascular Provider 05/18/22 12/29/24 Hector Goode MD [address] [place] [address] [place] [address] Assigned Neuroscience Provider 07/01/23 12/29/24 Jaclyn Thomason APRN FISHERIES SPECIALIST [address] [place] [address] Nurse Practitioner Geriatric Medicine 02/06/[address] [place] [phone] 02/06/24 02/23/24 Rivas Delcid MD [address] [facility], [address] [place] [address] Assigned Surgical Provider 03/01/24 Gavi Cloud MD [address] [address] Assigned PCP 10/30/24 01/05/25 Blue Mensah MD Assigned Heart and Vascular Provider 12/30/24 Jasmin Maradiaga PA-C [address] [address] Assigned PCP 01/06/25 documented as of this encounter
--- OUTSIDE RECORDS SUMMARY | 2025-01-07 17:20 | XMS_ITS | Encounter Summary ---
Author Organization [place] Address [address] [place] [address] Care Team Providers Care Supply Chain Generalist Name Role Phone Marcos Sandoval MD Primary Care Provider Unav ailable Hector Goode MD Unavailable John Cancino MD Unavailable [phone] Marcos Sandoval MD Unavailable UnavailKorin Cash MD Unavailable +- [phone] Korin Lamb MD Primary Care Provider [phone] Carl Farah MD Unavailable Unavailable Marcos Sandoval MD Unavailable UnavailKorin Cash MD Unavailable [phone] Gavi Cloud MD Unavailable [phone] Jasmin Maradiaga PA-C Unavailable [phone] Ian Polk APRN TEACHER PRESCHOOL Unavailable Unavailable Carl Farah MD Unavailable Unavailable Jasmin Maradiaga PA-C Primary Care Provid er Gavi Cloud MD Unavailable [phone] Jasmin Maradiaga PA-C Unavailable [phone] Ian Polk APRN TEACHER PRESCHOOL Unavailable Unavailable Carl Farah MD Unavailable Unavailable Hector Goode MD Unavailable Jaclyn Thomason APRN TEACHER PRESCHOOL Unavailable [phone] [facility] Unavailable Rivas Delcid MD Unavailable Gavi Cloud MD Primary Care Provider + [phone] Gavi Cloud MD Unavailable [phone] Blue Mensah MD Unavailable Un available Jasmin Maradiaga PA-C Unavailable + [phone] Encounter Details Date Type Department Care Team (Late st Contact Info) Description 03/17/2006 Office Visit-[facility] Heart [address] [facility] [address] [place] [address] Ian Polk APRN TEACHER PRESCHOOL Social History Tobacco Use Types Packs/Day Years Used Date Smoking Tobacco: Never Alcohol Use Standard Drinks/Week Comments No 0 (1 standard drink = 0.6 oz pur e alcohol) on occ Comments No Sex and Gender Information Value Date Recorded Sex Assigned at Not on file 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 CURRENT DIAGNOSES 1. - Congestive Heart [...] this does not occur with pool exercises) and also feels intermittent, fleeting shortness of breath sitting at rest. Her BMI is 43 and she has gained several pounds over the past year. Her 12-lead electrocardiogram shows a QRS of 145 milliseconds, with sinus rhythm and a rate of 60 beats/minute. An oxygen saturation today at rest interestingly is between 90 and 92%. I increased her Coreg a short time ago to try to optimize her cardiomyopathy medications, which has made no difference in her symptoms. She has a history of asthma but tells me this she feels has been checked into and is optimized. However, her primary care physician has referred her to [facility], which she will be seeing in approximately two to three days. Stress testing in June of 2005 revealed 2 defects, likely related to artifact. She went on for a CT angiogram inJuly of 2005, confirming only mild plaque in [...] same doses today and I agree with [facility] workup. I have written a note for [...] night. We will gladly await feedback from [facility] regarding any further workup that is performed there. I have given her copies of all of her records from our office to take with her. I have asked her to contact me once her workup is complete. 2. Hyperlipidemia, which is optimized on Lipitor therapy. She will need lipids again in the spring of 2006. 3. Asthma, being followed by her primary care physician and soon to be worked up at [facility]. TODAYS ORDERS 1. F/U with Carl Farah MD follow up Ian Polk N.Rekha. documented in this encounter Plan of Treatment Scheduled Procedures Name Priority Associated Diagnoses Date/Ti me ENDOSCOPIC RETROGRADE CHOLANGIOPANCREATOGRAPHY, COMPLEX Cholecystitis Choledocholithiasis with acute cholecystitis documented as of this encounter Visit Diagnoses Not on filedocumented in this encounter Care Teams Supply Chain Generalist Relationship Specialty Start Date End Date Marcos Sandoval MD NO INFO AVAILABLE 10/03/22 PCP - General 03/27/99 08/11/19 Korin Lamb MD [address] [place] [address] PCP - General Family Practice 08/12/19 03/15/21 Jasmin Maradiaga PA-C [address] [address] PCP - General Family Medicine 03/16/21 08/16/24 Gavi Cloud MD [address] [address] PCP - General Family Medicine 08/17/24 Hector Goode MD [address] [place] [address] Neurology 05/01/17 John Cancino MD [address] [place] [address] Family Medicine - Sports Medicine 07/30/17 Marcos Sandoval MD NO INFO AVAILABLE 10/03/22 Assigned PCP 02/08/18 06/05/19 Korin Lamb MD [address] [address] Assigned PCP 06/06/19 04/29/20 Carl Farah MD Assigned Heart and Vascular Provider 12/31/19 12/16/20 Marcos Sandoval MD NO INFO AVAILABLE 10/03/22 Assigned PCP 04/30/20 05/06/20 Korin Lamb MD [address] [address] Assigned PCP 05/07/20 05/28/20 Gavi Cloud MD [address] [address] Assigned PCP 05/29/20 01/06/21 Jasmin Maradiaga PA-C [address], [address] [address] Assigned PCP 01/07/21 09/28/21 Ian Polk APRN TEACHER PRESCHOOL Assigned Heart and Vascular Provider 12/17/20 02/17/21 Carl Farah MD Assigned Heart and Vascular Provider 02/18/21 12/14/21 Gavi Cloud MD [address] [address] Assigned PCP 09/29/21 10/19/21 Jasmin Maradiaga PA-C [address], [address] [address] Assigned PCP 10/20/21 10/29/24 Ian Polk APRN TEACHER PRESCHOOL Assigned Heart and Vascular Provider 12/15/21 05/17/22 Carl Farah MD [address], [address] [address] Assigned Heart and Vascular Provider 05/18/22 12/29/24 Hector Goode MD [address] [place] [address] [address] Assigned Neuroscience Provider 07/01/23 12/29/24 Jaclyn Thomason APRN TEACHER PRESCHOOL [address] [place] [address] Nurse Practitioner Geriatric Medicine 02/06/24 [address] [facility] [address] [place] [phone] 02/06/24 02/23/24 Rivas Delcid MD [address] [facility], [facility] [address] [place] [address] Assigned Surgical Provider 03/01/24 Gavi Cloud MD [address] [address] Assigned PCP 10/30/24 01/05/25 Blue Mensah MD Assigned Heart and Vascular Provider 12/30/24 Jasmin Maradiaga PA-C [address], [address] [address] Assigned PCP 01/06/25 documented as of this encounter
--- OUTSIDE RECORDS SUMMARY | 2025-01-07 17:20 | XMS_ITS | Clinical Summary ---
Author Organization [facility] Address [address] [place] [address] Care Team Providers Care Graphic Coordinator Name Role Phone Physicians, [facility] Primary Care Provi luis Allergies Active Allergy Reactions Criticality Noted Date Comments Cortisone *Unknown,Palpitations Medium 05/29/2006 Cortisone shots Sulfasalazine *Unknown 06/16/1998 Medications tocilizumab (Actemra) 80 mg/4 mL (20 mg/mL) soln injection Activ e PREDNISONE ORAL 3 mg. Acti ve folic acid/multivit-min /lutein (CENTRUM SILVER ORAL) Take 1 Tablet by mouth once daily. Active aspirin (ECOTRIN) 81 mg enteric coated tablet Take 1 Tablet by mouth once daily. Active betaxoloL (BETOPTIC) 0.5 % ophthalmic solution INSTILL 1 DROP INTO RIGHT EYE TWICE A DAY 3 Active carvediloL (COREG) 12.5 mg tablet 4 Active cyclobenzaprine (FLEXERIL) 5 mg tablet TAKE 1 TABLET BY MOUTH 3 TIMES DAILY NEEDED FOR MUSCLE SPASMS 4 Active diazePAM (VALIUM) 2 mg tablet prn 4 Active dorzolamide (TRUSOPT) 2 % ophthalmic solution INSTILL 1 DROP INTO RIGHT EYE TWICE A DAY Active furosemide (LASIX) 20 mg tablet TAKE 1 TABLET DAILY PLUS 1 ADDITIONAL TABLET NEEDEDFOR EDEMA/SHORTNES S OF BREATH 4 Active Gleevec 400 mg tablet Active irbesartan (AVAPRO) 75 mg tablet 4 Active omeprazole (PRILOSEC) 40 mg Delayed-Release capsule prn 4 Active potassium chloride 10 mEq Extended-Release tablet 4 Active rosuvastatin (CRESTOR) 5 mg tablet 4 Active sertraline (ZOLOFT) 50 mg tablet TAKE 1.5 TABLETS BY MOUTH DAILY 4 Active spironolactone (ALDACTONE) 25 mg tablet 4 Active tafluprost, PF, (ZIOPTAN) 0.0015 % ophthalmic solution INSTILL 1 DROP INTO RIGHT EYE NIGHTLY 4 Active BIPAPIndications: Complex sleep apnea syndrome ASV/ BIPAP (E0471) machine for home use at pressure: EPAP 5-15cmw PS 0-20cmw IPAP max 25cmw, Choice of mask (A7030 or A7034) w/full face cushion (A7031) x1/mo, nasal cushion (A7032) x2/mo, or nasal pillows (A7033) x 2/mo; Length of Need: 99 months; Frequency of use: Daily 1 Each 11 5 Active Asmanex Twisthaler 220 mcg/ actuation (60) inhalerIndication s:Mild persistent asthma without complication (HC),Chronic cough,Muscular dystrophy (HC) Inhale 1 Puff by mouth at bedtime. Rinse and spit after use. 3 Each 3 5 Active Active Problems Problem Noted Date Diagnosed Date Mild persistent asthma without complication 05/08 Encounters Date Type Department Care Team Description 10/14/2024 3:30 PM CDT Office Visit [facility] [address] [place] [address] [place] Nava MD Follow Up (Asthma/) 10/14/2024 Travel from Last 3 Months Immunizations Immunization Administration Dates Next Due INFLUENZA, IIV3 PF (AGE >= 6 MO) 12/19/2011,11/09 Influenza A (H1N1), Inactivated 02/09/2009 Influenza, High-dose Inactivated 01/16/2019,12/08 Influenza, High-dose Quadriv alent Inactivated 01/21/2023,12/28/2021,12/15/2020,2019 Influenza, IIV3 (Age >=3 years) 11/22/19 09,01/06/2008,12/19/2006,2005,12/16/2003,12/16/2002,12/29/2000,1 04/30/1999,12/20/1998 Influenza, IIV4 01/23/2018,11/29/2016,12/30/2014 Influenza, IIV4 (=>6mos) MDV 12/21/2015 Pneumococcal Poly,23-Valent (Pneumovax) 01/23/2018,12/19/2006 Pneumococcal conj 13-Valent (Prevnar 13) 02/19/2012 Td, Preservative Free (age > = 7 Years) 07/03/2009,04/10/2000,02/26/1993 Zoster (Zostavax-ZVL, live) 02/26/2007 Social History Tobacco Use Types Packs/Day Years Used Date Smoking Tobacco: Never Smokeless Tobacco: Never Tobacco Cessation:Counseling Given: Not Answered Comments Unknown Sex and Gender Information Value Date Recorded Sex Assigned at Not on file Legal Sex Female 11:50 AM CDT Gender Identity Not on file Sexual Orientation Not on file Obstetrics History Last Filed Vital Signs Vital Sign Reading Time Taken Comments Blood Pressure 128/62 10/14/2024 3:39 PM CDT Pulse 70 10/14/2024 3:39 PM CDT Temperature - - Respiratory Rate 18 10/14/2024 3:39 PM CDT Oxygen Saturation 94% 10/14/2024 3:39 PM CDT Inhaled Oxygen Concentration - - Weight 100.7 kg (222 lb) 07/06/2024 2:52 PM CDT Height 162.6 cm (5' 4) 10/14/2024 3:39 PM CDT Body Mass Index 38.11 07/06/2024 2:52 PM CDT Plan of Treatment Health Maintenance Due Date Last Done Comments Depression screening for age 12+ 1956 Zoster (shingles) series for age 50+ (1 of 2) 04/23/2007 02/26/2007 DEXA/DXA scan for age 65+ 01/04/2009 Medicare Wellness for age 65+ 01/04/2009 RSV vaccine for adults or (1 - 1-dose 75+ series) 01/04/2019 Tetanus booster 07/04/2019 07/03/2009, 02/03/2000, 02/26/1993 Influenza Vaccine (#1) 2024 9, 01/23/2018, 11/29/2016, Additional history exists BMI (ht and wt on same day) for age 18+ 07/06/2025 07/06/2024, 01/23/2024 Pneumococcal series for age 50+ Completed 01/23/2018, 02/19/2012, 12/19/2006 Hepatitis B series for 19+ Aged Out N o longer eligible based on patient's age to complete this topic Insurance MEDICARE PART B [place] ONLY MEDICARE [place] ONLY [place] A [place] ONLY Care Teams Graphic Coordinator Relationship Specialty Start Date End Date Physicians, [facility] [address], [address] [place] [address] PCP - General Nurse Practitioner - Family 10/14/24
--- OUTSIDE RECORDS SUMMARY | 2025-01-07 17:20 | XMS_ITS | Encounter Summary ---
Author Organization [place] Address [address] [place] [address] Care Team Providers Care County Tax Assessor Name Role Phone Marcos Sandoval MD Primary Care Provider Unav ailable Hector Gooed MD Unavailable John Cancino MD Unavailable [phone] Marcos Sandoval MD Unavailable UnavailKorin Cash MD Unavailable +- [phone] Korin Lamb MD Primary Care Provider [phone] Carl Farah MD Unavailable Unavailable Marcos Sandoval MD Unavailable UnavailKorin Cash MD Unavailable [phone] Gavi Cloud MD Unavailable +[phone] Jasmin Maradiaga PA-C Unavailable [phone] Itzel Polk APRN CORPORATE AUDITOR Unavailable Unavailable Carl Farah MD Unavailable Unavailable Jasmin Maradiaga PA-C Primary Care Provid er Gavi Cloud MD Unavailable [phone] Jasmin Maradiaga PA-C Unavailable [phone] Itzel Polk APRN CORPORATE AUDITOR Unavailable Unavailable Carl Farah MD Unavailable Unavailable Hector Goode MD Unavailable Jaclyn Thomason APRN CORPORATE AUDITOR Unavailable [phone] [facility] Unavailable Rivas Delcid MD Unavailable Gavi Cloud MD Primary Care Provider + [phone] Gavi Cloud MD Unavailable [phone] Blue Mensah MD Unavailable Un available Jasmin Maradiaga PA-C Unavailable + [phone] Encounter Details Date Type Department Care Team (Late st Contact Info) Description 04/15/2003 Office Visit-[facility] Heart [address] [place] [address] Unknown, DoctorMD Social History Tobacco Use Types Packs/Day Years Used Date Smoking Tobacco: Never Alcohol Use Standard Drinks/Week Comments No 0 (1 standard drink = 0.6 oz pur e alcohol) on occ Comments No Sex and Gender Information Value Date Recorded Sex Assigned at Not on file Legal Sex Female 2:58 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 CURRENT DIAGNOSES 1. - Congestive [...] per day the past two days. She additionallyhas been eating frozen Weight Watcher's dinners for one meal per day. She denies the presence of any shortness of breath at rest. She has not had any change in her level of shortness of breath with exertion. She indicates that she had a cold with some type of bronchitis over the past couple of weeks and is taking her last dose of Avalox antibiotics today. She additionally has had some hip pain, for which she took two doses of Vioxx, given by her primary care physician. She is normally maintained on Lasix, spironolactone, Coreg and Cozaar. 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 She also has leukemia, for which she is being treated with Gleevec. Other than severe pedal edema and mild abdominal edema, the patient is relatively asymptomatic. Per our scale, her weight has gone up about 15 pounds from Kena of last year. As stated previously, she [...] Residence - lives alone; Place of - [place]; Hours Worked - 40 hours per week; [...] on filedocumented in this encounter Care Teams County Tax Assessor Relationship Specialty Start Date End Date Marcos Sandoval MD NO INFO AVAILABLE 10/03/22 PCP - General 03/27/99 08/11/19 Korin Lamb MD [address], [address] [address] PCP - General Family Practice 08/12/19 03/15/21 Jasmin Maradiaga PA-C [address], [address] [address] PCP - General Family Medicine 03/16/21 08/16/24 Gavi Cloud MD [address] [address] PCP - General Family Medicine 08/17/24 Hector Goode MD [address] [place] [address] Neurology 05/01/17 John Cancino MD [address] [address] Family Medicine - Sports Medicine 07/30/17 Marcos Sandoval MD NO INFO AVAILABLE 10/03/22 Assigned PCP 02/08/18 06/05/19 Korin Lamb MD [address] [address] Assigned PCP 06/06/19 04/29/20 Carl Farah MD Assigned Heart and Vascular Provider 12/31/19 12/16/20 Marcos Sandoval MD NO INFO AVAILABLE 10/03/22 Assigned PCP 04/30/20 05/06/20 Korin Lamb MD [address], [address] [address] Assigned PCP 05/07/20 05/28/20 Gavi Cloud MD [address] [address] Assigned PCP 05/29/20 01/06/21 Jasmin Maradiaga PA-C [address], [address] [address] Assigned PCP 01/07/21 09/28/21 Itzel Polk APRN CORPORATE AUDITOR Assigned Heart and Vascular Provider 12/17/20 02/17/21 Carl Farah MD Assigned Heart and Vascular Provider 02/18/21 12/14/21 Gavi Cloud MD [address] [place] [address] Assigned PCP 09/29/21 10/19/21 Jasmin Maradiaga PA-C [address], [address] [address] Assigned PCP 10/20/21 10/29/24 Itzel Polk APRN CORPORATE AUDITOR Assigned Heart and Vascular Provider 12/15/21 05/17/22 Carl Farah MD [address], [address] [address] Assigned Heart and Vascular Provider 05/18/22 12/29/24 Hector Goode MD [address] [facility] [place] [address] Assigned Neuroscience Provider 07/01/23 12/29/24 Jaclyn Thomason APRN CORPORATE AUDITOR [address] [place] [address] Nurse Practitioner Geriatric Medicine 02/06/24 4 [facility] [place] [address] [place] [address] 02/06/24 02/23/24 Rivas eDlcid MD [address] [facility], [address] [place] [address] Assigned Surgical Provider 03/01/24 Gavi Cloud MD [address] [address] Assigned PCP 10/30/24 01/05/25 Blue Mensah MD Assigned Heart and Vascular Provider 12/30/24 Jasmin Maradiaga PA-C [address], [address] [address] Assigned PCP 01/06/25 documented as of this encounter
--- OUTSIDE RECORDS SUMMARY | 2025-01-07 17:20 | XMS_ITS | Encounter Summary ---
Author Organization [facility] Address [address] [place] [address] Care Team Providers Care City Distribution Clerk Name Role Phone Roslyn Sandoval MD Primary Care Provider Unav ailable Hector Goode MD Unavailable John Cancino MD Unavailable [phone] Roslyn Sandoval MD Unavailable UnavailKorin Cash MD Unavailable +- [phone] Korin Lamb MD Primary Care Provider [phone] Carl Farah MD Unavailable Unavailable Roslyn Sandoval MD Unavailable UnavailKorin Cash MD Unavailable +[phone] Gavi Cloud MD Unavailable +[phone] Jasmin Maradiaga PA-C Unavailable +[phone] Itzel Polk APRN RUBBER FLAP CUTTER Unavailable Unavailable Carl Farah MD Unavailable Unavailable Jasmin Maradiaga PA-C Primary Care Provid er Gavi Cloud MD Unavailable +[phone] Jasmin Maradiaga PA-C Unavailable +[phone] Itzel Polk APRN RUBBER FLAP CUTTER Unavailable Unavailable Carl Farah MD Unavailable Unavailable Hector Goode MD Unavailable Jaclyn Thomason APRN RUBBER FLAP CUTTER Unavailable [phone] [facility], [facility] Unavailable Rivas Delcid MD Unavailable Gavi Cloud MD Primary Care Provider + [phone] Gavi Cloud MD Unavailable +[phone] Blue Mensah MD Unavailable Un available Jasmin Maradiaga PA-C Unavailable + [phone] Reason for Visit * Reason Comments Medication Refill Encounter Details Date Type Department Care Team (Late st Contact Info) Description 08/27/2014 Refill [facility] [address] [place] [phone] Roslyn Sandoval MD NO INFO AVAILABLE 10/03/22 Medication Refill Social History Tobacco Use Types Packs/Day Years Used Date Smoking Tobacco: Never Smokeless Tobacco: Never Alcohol Use Standard Drinks/Week Comments Yes 0 (1 standard drink = 0.6 oz pur e alcohol) VERY RARE Comments No Sex and Gender Information Value Date Recorded Sex Assigned at Not on file 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 Original request came from [facility]. Thanks George documented in this encounter Plan of Treatment Scheduled Procedures Name Priority Associated Diagnoses Date/Ti ct ENDOSCOPIC RETROGRADE CHOLANGIOPANCREATOGRAPHY, COMPLEX Cholecystitis Choledocholithiasis with acute cholecystitis documented as of this encounter Visit Diagnoses Diagnosis Other primary cardiomyopathies- Primary Medication management Encounter for other specified aftercare Need for vaccination against Streptococcus pneumoniae Need for prophylactic vaccination against streptococcus pneumoniae (pneumococcus) documented in this encounter Care Teams City Distribution Clerk Relationship Specialty Start Date End Date Roslyn Sandoval MD NO INFO AVAILABLE 10/03/22 PCP - General 03/27/99 08/11/19 Korin Lamb MD [address] , [address] [address] PCP - General Family Practice 08/12/19 03/15/21 Jasmin Maradiaga PA-C [address] , [address] [address] PCP - General Family Medicine 03/16/21 08/16/24 Gavi Cloud MD [address] [address] PCP - General Family Medicine 08/17/24 Hector Goode MD [address] [place] [address] [id number] Neurology 05/01/17 John Cancino MD [address] [place] [address] 156345 Family Medicine - Sports Medicine 07/30/17 Roslyn Sandoval MD NO INFO AVAILABLE 10/03/22 Assigned PCP 02/08/18 06/05/19 Korin Lamb MD [address] , [address] [address] Assigned PCP 06/06/19 04/29/20 Carl Farah MD Assigned Heart and Vascular Provider 12/31/19 12/16/20 Roslyn Sandoval MD NO INFO AVAILABLE 10/03/22 Assigned PCP 04/30/20 05/06/20 Korin Lamb MD [address] [place] [address] Assigned PCP 05/07/20 05/28/20 Gavi Cloud MD [address] [place] [address] Assigned PCP 05/29/20 01/06/21 Jasmin Maradiaga PA-C [address], [address] [place] [address] Assigned PCP 01/07/21 09/28/21 Itzel Polk APRN RUBBER FLAP CUTTER Assigned Heart and Vascular Provider 12/17/20 02/17/21 Carl Farah MD Assigned Heart and Vascular Provider 02/18/21 12/14/21 Gavi Cloud MD [address] [place] [address] Assigned PCP 09/29/21 10/19/21 Jasmin Maradiaga PA-C [address], [address] [place] [address] Assigned PCP 10/20/21 10/29/24 Itzel Polk APRN RUBBER FLAP CUTTER Assigned Heart and Vascular Provider 12/15/21 05/17/22 Carl Farah MD [address], [address] [place] [address] Assigned Heart and Vascular Provider 05/18/22 12/29/24 Hector Goode MD 909 [facility] [id number] [address] Assigned Neuroscience Provider 07/01/23 12/29/24 KatelinJcalyn APRN RUBBER FLAP CUTTER 1700 [place] [address] Nurse Practitioner Geriatric Medicine 02/06/24 4 [facility] [address] [place] [phone] 02/06/24 02/23/24 Rivas Delcid MD 6405 [facility], [address] [place] [address] Assigned Surgical Provider 03/01/24 Gavi Cloud MD [address] [address] Assigned PCP 10/30/24 01/05/25 Blue Mensah MD Assigned Heart and Vascular Provider 12/30/24 Jasmin Maradiaga PA-C [address], [facility] [address] [place] [address] Assigned PCP 01/06/25 documented as of this encounter
--- OUTSIDE RECORDS SUMMARY | 2025-01-07 17:20 | XMS_ITS | Encounter Summary ---
Author Organization [facility] Address [address] [place] [address] Care Team Providers Care Buckle Attaching Machine Operator Name Role Phone Marcos Sandoval MD Primary Care Provider Unav ailable Hector Goode MD Unavailable John Cancino MD Unavailable [phone] Marcos Sandoval MD Unavailable UnavailKorin Cash MD Unavailable +- 03 Korin Lamb MD Primary Care Provider [phone] Carl Farah MD Unavailable Unavailable Marcos Sandoval MD Unavailable UnavailKorin Cash MD Unavailable [phone] Gavi Cloud MD Unavailable +[phone] Jasmin Maradiaga PA-C Unavailable [phone] Itzel Polk APRN FLIGHT SURVEYOR Unavailable Unavailable Carl Farah MD Unavailable Unavailable Jasmin Maradiaga PA-C Primary Care Provid er Gavi Cloud MD Unavailable +[phone] Jasmin Maradiaga PA-C Unavailable [phone] Itzel Polk APRN FLIGHT SURVEYOR Unavailable Unavailable Carl Farah MD Unavailable Unavailable Hector Goode MD Unavailable Jaclyn Thomason APRN FLIGHT SURVEYOR Unavailable +[phone] [facility] Rivas Delcid MD Unavailable Gavi Cloud MD Primary Care Provider + [phone] Gavi Cloud MD Unavailable [phone] Blue Mensah MD Unavailable Un available Jasmin Maradiaga PA-C Unavailable + [phone] Encounter Details Date Type Department Care Team (Late st Contact Info) Description 07/16/2001 Office Visit-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 documented in this encounter Plan of Treatment Scheduled Procedures Name Priority Associated Diagnoses Date/Ti me ENDOSCOPIC RETROGRADE CHOLANGIOPANCREATOGRAPHY, COMPLEX Cholecystitis Choledocholithiasis with acute cholecystitis documented as of this encounter Visit Diagnoses Not on filedocumented in this encounter Care Teams Buckle Attaching Machine Operator Relationship Specialty Start Date End Date Marcos Sandoval MD NO INFO AVAILABLE 10/03/22 PCP - General 03/27/99 08/11/19 Korin Lamb MD [address], [address] [address] PCP - General Family Practice 08/12/19 03/15/21 Jasmin Maradiaga PA-C [address], [address] [place] [address] PCP - General Family Medicine 03/16/21 08/16/24 Gavi Cloud MD [address] [address] PCP - General Family Medicine 08/17/24 Hector Goode MD [address] [address] Neurology 05/01/17 John Cancino MD [address] [address] Family Medicine - Sports Medicine 07/30/17 Marcos Sandoval MD NO INFO AVAILABLE 10/03/22 Assigned PCP 02/08/18 06/05/19 Korin Lamb MD [address] [address] Assigned PCP 06/06/19 04/29/20 Carl Farah MD Assigned Heart and Vascular Provider 12/31/19 12/16/20 Marcos Sandoval MD NO INFO AVAILABLE 10/03/22 Assigned PCP 04/30/20 05/06/20 Korin Lamb MD [address] [address] Assigned PCP 05/07/20 05/28/20 Gavi Cloud MD [address] [address] Assigned PCP 05/29/20 01/06/21 Jasmin Maradiaga PA-C [address], [address] [address] Assigned PCP 01/07/21 09/28/21 Itzel Polk APRN FLIGHT SURVEYOR Assigned Heart and Vascular Provider 12/17/20 02/17/21 Carl Farah MD Assigned Heart and Vascular Provider 02/18/21 12/14/21 Gavi Cloud MD [address] [address] Assigned PCP 09/29/21 10/19/21 Jasmin Maradiaga PA-C [address], [address] [address] Assigned PCP 10/20/21 10/29/24 Itzel Polk APRN FLIGHT SURVEYOR Assigned Heart and Vascular Provider 12/15/21 05/17/22 Carl Fraah MD [address], [address] [address] Assigned Heart and Vascular Provider 05/18/22 12/29/24 Hector Goode MD 909 [facility] [id number] [place] [address] Assigned Neuroscience Provider 07/01/23 12/29/24 Jaclyn Thomason APRN FLIGHT SURVEYOR [address] [place] [address] Nurse Practitioner Geriatric Medicine 02/06/24 4 [facility] [address] [place] [phone] 02/06/24 02/23/24 Rivas Delcid MD 6405 [facility], [address] [place] [address] Assigned Surgical Provider 03/01/24 Gavi Cloud MD [address] [place] [address] Assigned PCP 10/30/24 01/05/25 Blue Mensah MD Assigned Heart and Vascular Provider 12/30/24 Jasmin Maradiaga PA-C [address], [address] [place] [address] Assigned PCP 01/06/25 documented as of this encounter
--- OUTSIDE RECORDS SUMMARY | 2025-01-07 17:20 | XMS_ITS | Encounter Summary ---
Author Organization [facility] Address [address] [place] [address] Care Team Providers Care Regional Program Manager Name Role Phone Roslyn Sandoval MD Primary Care Provider Unav ailable Hector Goode MD Unavailable John Cancino MD Unavailable [phone] Roslyn Sandoval MD Unavailable UnavailKorin Cash MD Unavailable +- 03 Korin Lamb MD Primary Care Provider [phone] Carl Farah MD Unavailable Unavailable Roslyn Sandoval MD Unavailable UnavailKorin Cash MD Unavailable [phone] Gavi Cloud MD Unavailable +[phone] Jasmin Maradiaga PA-C Unavailable [phone] Itzel Polk APRN ROTARY ROCK DRILLING MACHINE OPERATOR Unavailable Unavailable Carl Farah MD Unavailable Unavailable Jasmin Maradiaga PA-C Primary Care Provid er Gavi Cloud MD Unavailable [phone] Jasmin Maradiaga PA-C Unavailable [phone] Itzel Polk APRN ROTARY ROCK DRILLING MACHINE OPERATOR Unavailable Unavailable Carl Farah MD Unavailable Unavailable Hector Goode MD Unavailable Jaclyn Thomason APRN ROTARY ROCK DRILLING MACHINE OPERATOR Unavailable +[phone] [facility] Unavailable Rivas Delcid MD Unavailable Gavi Cloud MD Primary Care Provider + [phone] Gavi Cloud MD Unavailable [phone] Blue Mensah MD Unavailable Un available Jasmin Maradiaga PA-C Unavailable + [phone] Reason for Visit * Reason Comments Medication Refill Encounter Details Date Type Department Care Team (Late st Contact Info) Description 10/25/[address] 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 Gender Identity Not on file Sexual Orientation Not on file documented as of this encounter Plan of Treatment Scheduled Procedures Name Priority Associated Diagnoses Date/Ti me ENDOSCOPIC RETROGRADE CHOLANGIOPANCREATOGRAPHY, COMPLEX Cholecystitis Choledocholithiasis with acute cholecystitis documented as of this encounter Visit Diagnoses Not on filedocumented in this encounter Care Teams Regional Program Manager Relationship Specialty Start Date End Date Roslyn Sandoval MD NO INFO AVAILABLE 10/03/22 PCP - General 03/27/99 08/11/19 Korin Lamb MD [facility] [address] [place] [address] PCP - General Family Practice 08/12/19 03/15/21 Jasmin Maradiaga PA-C [address] [address] PCP - General Family Medicine 03/16/21 08/16/24 Gavi Cloud MD [address] [address] PCP - General Family Medicine 08/17/24 Hector Goode MD [address] [address] Neurology 05/01/17 John Cancino MD [address] [address] Family Medicine - Sports Medicine 07/30/17 Roslyn Sandoval MD NO INFO AVAILABLE 10/03/22 Assigned PCP 02/08/18 06/05/19 Korin Lamb MD [address] [address] Assigned PCP 06/06/19 04/29/20 Carl Farah MD Assigned Heart and Vascular Provider 12/31/19 12/16/20 Roslyn Sandoval MD NO INFO AVAILABLE 10/03/22 Assigned PCP 04/30/20 05/06/20 Korin Lamb MD [address] [address] Assigned PCP 05/07/20 05/28/20 Gavi Cloud MD [address] [place] [address] Assigned PCP 05/29/20 01/06/21 Jasmin Maradiaga PA-C [address], [address] [place] [address] Assigned PCP 01/07/21 09/28/21 Itzel Polk APRN ROTARY ROCK DRILLING MACHINE OPERATOR Assigned Heart and Vascular Provider 12/17/20 02/17/21 Carl Farah MD Assigned Heart and Vascular Provider 02/18/21 12/14/21 Gavi Cloud MD [address] [address] Assigned PCP 09/29/21 10/19/21 Jasmin Maradiaga PA-C [address], [address] [place] [address] Assigned PCP 10/20/21 10/29/24 Itzel Polk APRN ROTARY ROCK DRILLING MACHINE OPERATOR Assigned Heart and Vascular Provider 12/15/21 05/17/22 Carl Farah MD [address], [facility] 100 [place] [address] Assigned Heart and Vascular Provider 05/18/22 12/29/24 Hector Goode MD 9 [facility], [place] [address] Assigned Neuroscience Provider 07/01/23 12/29/24 Jaclyn Thomason APRN ROTARY ROCK DRILLING MACHINE OPERATOR [address] [place] [address] Nurse Practitioner Geriatric Medicine 02/06/24 4 [facility], [facility] [address] [place] [phone] 02/06/24 02/23/24 Rivas Delcid MD 6405 [facility], [address] [place] [address] Assigned Surgical Provider 03/01/24 Gavi Cloud MD [address] [address] Assigned PCP 10/30/24 01/05/25 Blue Mensah MD Assigned Heart and Vascular Provider 12/30/24 Jasmin Maradiaga PA-C [address] [address] Assigned PCP 01/06/25 documented as of this encounter
--- OUTSIDE RECORDS SUMMARY | 2025-01-07 17:20 | XMS_ITS | Encounter Summary ---
Author Organization [facility] Address [address] [place] [address] Care Team Providers Care Rail Assembler Name Role Phone Marcos Sandoval MD Primary Care Provider Unav ailable Hector Goode MD Unavailable John Cancino MD Unavailable [phone] Marcos Sandoval MD Unavailable UnavailKorin Cash MD Unavailable +- 03 Korin Lamb MD Primary Care Provider [phone] Carl Farah MD Unavailable Unavailable Marcos Sandoval MD Unavailable UnavailKorin Cash MD Unavailable [phone] Gavi Cloud MD Unavailable +[phone] Jasmin Maradiaga PA-C Unavailable [phone] Itzel Polk APRN ELECTROTYPER Unavailable Unavailable Carl Farah MD Unavailable Unavailable Jasmin Maradiaga PA-C Primary Care Provid er Gavi Cloud MD Unavailable +[phone] Jasmin Maradiaga PA-C Unavailable [phone] Itzel Polk APRN ELECTROTYPER Unavailable Unavailable Carl Farah MD Unavailable Unavailable Hector Goode MD Unavailable Jaclyn Thomason APRN ELECTROTYPER Unavailable [phone] [facility] Unavailable Rivas Delcid MD Unavailable Gavi Cloud MD Primary Care Provider + [phone] Gavi Cloud MD Unavailable [phone] Blue Mensah MD Unavailable Un available Jasmin Maradiaga PA-C Unavailable + [phone] Encounter Details Date Type Department Care Team (Late st Contact Info) Description 05/13/2003 Office Visit-[facility] [address] [place] [address] Unknown, DoctorMD Social History Tobacco Use Types Packs/Day Years Used Date Smoking Tobacco: Never Alcohol Use Standard Drinks/Week Comments No 0 (1 standard drink = 0.6 oz pur e alcohol) on occ Comments No Sex and Gender Information Value Date Recorded Sex Assigned at Not on file 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 </I> __ Date: 05/13/2003 <B>GRISELDA LAI </B> Date of :1945 Age: 58 years old Referring Physician: MARCOS SANDOVAL Referring Clinic: [facility] PHYS. __ <B>CURRENT DIAGNOSES</B> 1. - Congestive Heart Failure, 428.0 2. 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 - Hypercholesterolemia, 272.0 __ <FONT COLOR=#[id number]><B>ALLERGIES</B> <FONT COLOR=#[id number]> 1. Sulfa __ <B>MEDICATIONS</B> 1. Potassium Chloride [...] January 2002, treadmill Thallium, Echo 06-10, BioZ 4- <B><I>Cardiac Cath Results: </B> </I> nl. coronaries,EF 50-55% <B><I>Left Ventricular Ejection Fraction: </B></I> 25 <B><I>PMHx Echo Results:</I> </B> LA size, Echo 4- EF 30-35% __<B><FONT FACE=System><FONT POINT=10> </B><FONT FACE=Times [...] <B><I>Residence</I> : </B>lives alone; <B><I>Place of </I>: </B>[place]; <B><I>Hours Worked</I>:</B> 40 hours per week; __<B><FONT [...] white, no xanthalasma <B><FONT FACE=System><FONT POINT=10> </B><FONT FACE= [place] Ras><FONT POINT=12> <B><I>ENT</I> </B> no pallor or cyanosis, dentition good <B><FONT FACE=System><FONT POINT=10> </B><FONT FACE= New Ras><FONT POINT=12> <B><I>Neck </B></I> carotid pulses are full and equal bilaterally, JVP normal, no carotid bruit, no thyromegaly <B><FONT FACE=System><FONT POINT=10> </B><FONT FACE= New Ras><FONT POINT=12> <B><I>Chest</I> </B> normal symmetry, no tenderness to palpation, normal respiratory excursion, no intercostal retraction, no use of accessory muscles, clear to auscultation and percussion. <B><FONT FACE=System><FONT POINT=10> </B><FONT FACE= New Ras><FONT POINT=12> <B><I>Cardiac</B></I> regular rhythm, S1 [...] on filedocumented in this encounter Care Teams Rail Assembler Relationship Specialty Start Date End Date Marcos Sandoval MD NO INFO AVAILABLE 10/03/22 PCP - General 03/27/99 08/11/19 Korin Lamb MD [address] [address] PCP - General Family Practice 08/12/19 03/15/21 Jasmin Maradiaga PA-C [address] [address] PCP - General Family Medicine 03/16/21 08/16/24 Gavi Cloud MD [address] [address] PCP - General Family Medicine 08/17/24 Hector Goode MD [address] [place] [address] [id number] [place] [address] Neurology 05/01/17 John Cancino MD 909 [facility] [id number] [place] [address] Family Medicine - Sports Medicine 07/30/17 Macros Sandoval MD NO INFO AVAILABLE 10/03/22 Assigned PCP 02/08/18 06/05/19 Korin Lamb MD [address], [address] [address] Assigned PCP 06/06/19 04/29/20 Carl Farah MD Assigned Heart and Vascular Provider 12/31/19 12/16/20 Marcos Sandoval MD NO INFO AVAILABLE 10/03/22 Assigned PCP 04/30/20 05/06/20 Korin Lamb MD [address], [address] [address] Assigned PCP 05/07/20 05/28/20 Gavi Cloud MD [address] [address] Assigned PCP 05/29/20 01/06/21 Jasmin Maradiaga PA-C [address], [address] [address] Assigned PCP 01/07/21 09/28/21 Itzel Polk APRN CNP Assigned Heart and Vascular Provider 12/17/20 02/17/21 Carl Farah MD Assigned Heart and Vascular Provider 02/18/21 12/14/21 Gavi Cloud MD [address] [address] Assigned PCP 09/29/21 10/19/21 Jasmin Maradiaga PA-C [address], [address] [address] Assigned PCP 10/20/21 10/29/24 Itzel Polk APRN ELECTROTYPER Assigned Heart and Vascular Provider 12/15/21 05/17/22 Carl Farah MD [address] , [address] [address] Assigned Heart and Vascular Provider 05/18/22 12/29/24 Hector Goode MD [address] [place] [address] [id number] [place] [address] Assigned Neuroscience Provider 07/01/23 12/29/24 Jaclyn Thomason APRN ELECTROTYPER [address] [place] [address] Nurse Practitioner Geriatric Medicine 02/06/[address] [place] [address] [place] [phone] 02/06/24 02/23/24 Rivas Delcid MD 6405 [facility], [address] [place] [address] Assigned Surgical Provider 03/01/24 Gavi Cloud MD [address] [place] [address] Assigned PCP 10/30/24 01/05/25 Blue Mensah MD Assigned Heart and Vascular Provider 12/30/24 Jasmin Maradiaga PA-C [address], [address] [address] Assigned PCP 01/06/25 documented as of this encounter
--- OUTSIDE RECORDS SUMMARY | 2025-01-07 17:20 | XMS_ITS | Encounter Summary ---
Author Organization [facility] Address [address] [place] [address] Care Team Providers Care Injection Maintenance Technician Name Role Phone Marcos Sandoval MD Primary Care Provider Unav ailable Hector Goode MD Unavailable John Cancino MD Unavailable [phone] Marcos Sandoval MD Unavailable UnavailKorin Cash MD Unavailable +[phone] Korin Lamb MD Primary Care Provider [phone] Carl Farah MD Unavailable Unavailable Marcos Sandoval MD Unavailable UnavailKorin Cash MD Unavailable [phone] Gavi Cloud MD Unavailable +[phone] Jasmin Maradiaga PA-C Unavailable [phone] Ian Polk APRN CARDIAC/VASCULAR SONOGRAPHER Unavailable Unavailable Carl Farah MD Unavailable Unavailable Jasmin Maradiaga PA-C Primary Care Provid er Gavi Cloud MD Unavailable [phone] Jasmin Maradiaga PA-C Unavailable +[phone] Ian Polk APRN CARDIAC/VASCULAR SONOGRAPHER Unavailable Unavailable Carl Farah MD Unavailable Unavailable Hector Goode MD Unavailable Jaclyn Thomason APRN CARDIAC/VASCULAR SONOGRAPHER Unavailable [phone] [facility] Unavailable Rivas Delcid MD Unavailable Gavi Cloud MD Primary Care Provider + [phone] Gavi Cloud MD Unavailable [phone] Blue Mensah MD Unavailable Un available Jasmin Maradiaga PA-C Unavailable + [phone] Encounter Details Date Type Department Care Team (Late st Contact Info) Description 02/24/2006 Office Visit-[facility] Heart [address] [place] [address] Unknown, DoctorMD Social History Tobacco Use Types Packs/Day Years Used Date Smoking Tobacco: Never Alcohol Use Standard Drinks/Week Comments No 0 (1 standard drink = 0.6 oz pur e alcohol) on occ Comments No Sex and Gender Information Value Date Recorded Sex Assigned at Not on file 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 DATE: 02/24/2006 GRISELDA LAI DATE OF : 1945 AGE: [age] years old Referring Physician: MARCOS SANDOVAL Referring Clinic: [facility]. CURRENT DIAGNOSES 1. - Cardiomyopathy [...] three years ago and was admitted to [facility] with vague neurologic findings. She was [...] Results: LA size, Echo 06-10 EF 30-35% SOCIAL HISTORY Alcohol Use - [...] clinical change in her condition following optimization ofher cardiomyopathy medications, I may send her back to pulmonary for a repeat consultation and/or consider a cardiopulmonary stress test to determine if this is dyspnea from a cardiac perspective or perhaps deconditioning. 2. Hyperlipidemia, which is optimized on Lipitor therapy. Her labs will needto be rechecked again in the spring of 2006. 3. She also has asthma and if this has not been reassessed recently, I may refer her for follow up in that regard; will discuss at next visit. I look forward to seeing Griselda altamirano in approximately one month to review her progress. I have spent greater althea n 20% of this 25-minute visit today counseling [...] on filedocumented in this encounter Care Teams Injection Maintenance Technician Relationship Specialty Start Date End Date Marcos Sandoval MD NO INFO AVAILABLE 10/03/22 PCP - General 03/27/99 08/11/19 Korin Lamb MD [address] [address] PCP - General Family Practice 08/12/19 03/15/21 Jasmin Maradiaga PA-C [address] [address] PCP - General Family Medicine 03/16/21 08/16/24 Gavi Cloud MD [address] [address] PCP - General Family Medicine 08/17/24 Hector Goode MD [address] [address] Neurology 05/01/17 John Cancino MD [address] [address] Family Medicine - Sports Medicine 07/30/17 Marcos Sandoval MD NO INFO AVAILABLE 10/03/22 Assigned PCP 02/08/18 06/05/19 Korin Lamb MD [address] [address] Assigned PCP 06/06/19 04/29/20 Carl Farah MD Assigned Heart and Vascular Provider 12/31/19 12/16/20 Marcos Sandoval MD NO INFO AVAILABLE 10/03/22 Assigned PCP 04/30/20 05/06/20 Korin Lamb MD [address] [place] [address] Assigned PCP 05/07/20 05/28/20 Gavi Cloud MD [address] [place] [address] Assigned PCP 05/29/20 01/06/21 Jasmin Maradiaga PA-C [address] [place] [address] Assigned PCP 01/07/21 09/28/21 Ian Polk APRN CARDIAC/VASCULAR SONOGRAPHER Assigned Heart and Vascular Provider 12/17/20 02/17/21 Carl Farah MD Assigned Heart and Vascular Provider 02/18/21 12/14/21 Gavi Cloud MD [address] [place] [address] Assigned PCP 09/29/21 10/19/21 Jasmin Maradiaga PA-C [address] [place] [address] Assigned PCP 10/20/21 10/29/24 Ian Polk APRN CARDIAC/VASCULAR SONOGRAPHER Assigned Heart and Vascular Provider 12/15/21 05/17/22 Carl Farah MD [address] [place] [address] Assigned Heart and Vascular Provider 05/18/22 12/29/24 Hector Goode MD [address] [facility] [id number] [address] Assigned Neuroscience Provider 07/01/23 12/29/24 Jaclyn Thomason APRN CARDIAC/VASCULAR SONOGRAPHER [facility] [place] [address] Nurse Practitioner Geriatric Medicine 02/06/[address] [place] [id number] [place] [phone] 02/06/24 02/23/24 Rivas Delcid MD [address] [facility], [address] [place] [address] Assigned Surgical Provider 03/01/24 Gavi Cloud MD [address] [address] Assigned PCP 10/30/24 01/05/25 Blue Mensah MD Assigned Heart and Vascular Provider 12/30/24 Jasmin Maraidaga PA-C [address] , [address] [address] Assigned PCP 01/06/25 documented as of this encounter
--- OUTSIDE RECORDS SUMMARY | 2025-01-07 17:20 | XMS_ITS | Encounter Summary ---
Author Organization [facility] Address [address] [place] [address] Care Team Providers Care Workforce Management Manager Name Role Phone Roslyn Sandoval MD Primary Care Provider Unav ailable Hector Goode MD Unavailable John Cancino MD Unavailable [phone] Roslyn Sandoval MD Unavailable UnavailKorin Cash MD Unavailable +[phone] Korin Lamb MD Primary Care Provider [phone] Carl Farah MD Unavailable Unavailable Roslyn Sandoval MD Unavailable UnavailKorin Cash MD Unavailable [phone] Gavi Cloud MD Unavailable [phone] Jasmin Maradiaga PA-C Unavailable [phone] Itzel Polk APRN LATIN PROFESSOR Unavailable Unavailable Carl Farah MD Unavailable Unavailable Jasmin Maradiaga PA-C Primary Care Provid er Gavi Cloud MD Unavailable [phone] Jasmin Maradiaga PA-C Unavailable [phone] Itzel Polk APRN LATIN PROFESSOR Unavailable Unavailable Carl Farah MD Unavailable Unavailable Hector Goode MD Unavailable Jaclyn Thomason APRN LATIN PROFESSOR Unavailable [phone] Unavailable Rivas Delcid MD Unavailable Gavi Cloud MD Primary Care Provider + [phone] Gavi Cloud MD Unavailable [phone] Blue Mensah MD Unavailable Un available Jasmin Maradiaga PA-C Unavailable + [phone] Encounter Details Date Type Department Care Team (Late st Contact Info) Description 05/04/2000 [facility] Physicians [address] [address] [place] [address] Roslyn Sandoval MD NO INFO [...] on file 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 Gender Identity Not on file Sexual Orientation Not on file documented as of this encounter Progress Notes * 05/04/2000 11:59 PM CSTAddended by: JAREN AMEZQUITA on: 10/22/2000,8:34 AM Modules accepted: Order Summary admitted 1 H&P 05/03/00 Possible femur fracture Level 3 Discharge 05/04/00 documented in this encounter Plan of Treatment Scheduled Procedures Name Priority Associated Diagnoses Date/Ti nd ENDOSCOPIC RETROGRADE CHOLANGIOPANCREATOGRAPHY, COMPLEX Cholecystitis Choledocholithiasis with acute cholecystitis documented as of this encounter Visit Diagnoses Diagnosis Pain in joint, pelvic region and thigh- Primary documented in this encounter Care Teams Workforce Management Manager Relationship Specialty Start Date End Date Roslyn Sandoval MD NO INFO AVAILABLE 10/03/22 PCP - General 03/27/99 08/11/19 Korin Lamb MD [address] [place], [place] [id number] PCP - General Family Practice 08/12/19 03/15/21 Jasmin Maradiaga PA-C [address] , [address] [address] PCP - General Family Medicine 03/16/21 08/16/24 Gavi Cloud MD [address] [address] PCP - General Family Medicine 08/17/24 Hector Goode MD [address] [address] Neurology 05/01/17 John Cancino MD [address] [address] Family Medicine - Sports Medicine 07/30/17 Roslyn Sandoval MD NO INFO AVAILABLE 10/03/22 Assigned PCP 02/08/18 06/05/19 Korin Lamb MD [address] , [address] [address] Assigned PCP 06/06/19 04/29/20 Carl Farah MD Assigned Heart and Vascular Provider 12/31/19 12/16/20 Roslyn Sandoval MD NO INFO AVAILABLE 10/03/22 Assigned PCP 04/30/20 05/06/20 Korin Lamb MD [address] [place] [address] Assigned PCP 05/07/20 05/28/20 Gavi Cloud MD [address] [place] [address] Assigned PCP 05/29/20 01/06/21 Jasmin Maradiaga PA-C [address] [place] [address] Assigned PCP 01/07/21 09/28/21 Itzel Polk APRN LATIN PROFESSOR Assigned Heart and Vascular Provider 12/17/20 02/17/21 Carl Farah MD Assigned Heart and Vascular Provider 02/18/21 12/14/21 Gavi Cloud MD [address] [place] [address] Assigned PCP 09/29/21 10/19/21 Jasmin Maradiaga PA-C [address], [address] [place] [address] Assigned PCP 10/20/21 10/29/24 Itzel Polk APRN LATIN PROFESSOR Assigned Heart and Vascular Provider 12/15/21 05/17/22 Carl Farah MD [address], [address] [place] [address] Assigned Heart and Vascular Provider 05/18/22 12/29/24 Hector Goode MD [address] [place], [place] [address] [address] Assigned Neuroscience Provider 07/01/23 12/29/24 Jaclyn Thomason APRN LATIN PROFESSOR [address] [place] [address] Nurse Practitioner Geriatric Medicine 02/06/[address] [place] [address] [place] [phone] 02/06/24 02/23/24 Rivas Delcid MD [address] [facility], [address] [place] [address] Assigned Surgical Provider 03/01/24 Gavi Cloud MD [address] [address] Assigned PCP 10/30/24 01/05/25 Blue Mensah MD Assigned Heart and Vascular Provider 12/30/24 Jasmin Maradiaga PA-C [address], [address] [address] Assigned PCP 01/06/25 documented as of this encounter
--- OUTSIDE RECORDS SUMMARY | 2025-01-07 17:21 | XMS_ITS | Data Portability ---
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 Plan of Treatment Reminders Order Date Submit Date Provider Last Modified By Organization Details Last Modified Time Details Appointments None recorde d. Lab urinaly sis, dipstic k 2023 [facility], [address], [place], [address], 11:28:37 Referral None recorde d. Procedures None recorde d. Surgeries None recorde d. Imaging CT, urogram 2023 024 [facility] , [address] [place], [address], 12:00:18 Medication Orders None recorde d. Patient TargetsNo targets recorded. Patient InstructionsNo instructions recorded. Reason for Referral None Reported. Results Created Date Observation Date Name Description Value Unit Range Abnormal Flag Note LastModifiedBy Organization Detail LastModifiedTime 01/15/2001/15/2024 urina lysis , dipst ick BLOOD Trace (5 RBC/uL ) Not Available [facility] [address], [place], [address], 01/15/2024 10:59:40 01/15/20 24 01/15/2024 urina lysis , dipst ick BILIRUBIN Small (0.5 mg/dL) Not Available [facility] [address], [place], [address], 01/15/2024 10:59:40 01/15/20 24 01/15/2024 urina lysis , dipst ick UROBILINOGEN 1.0 mg/dL Not Available [facility] [address], [place], [address], 01/15/2024 10:59:40 01/15/20 24 01/15/2024 urina lysis , dipst ick KETONES Negati ve Not Available [facility] [address], [place], [address], 01/15/2024 10:59:40 01/15/20 24 01/15/2024 urina lysis , dipst ick PROTEIN Negati ve Not Available [facility] [address], [place], [address], 01/15/2024 10:59:40 01/15/20 24 01/15/2024 urina lysis , dipst ick NITRITES Negati ve Not Available [facility] [address], [place], [address], 01/15/2024 10:59:40 01/15/20 24 01/15/2024 urina lysis , dipst ick GLUCOSE Negati ve Not Available [facility] [address], [place], [address], 01/15/2024 10:59:40 01/15/20 24 01/15/2024 urina lysis , dipst ick p.H. 5.5 Not Available [facility] [address], [place], [address], 01/15/2024 10:59:40 01/15/20 24 01/15/2024 urina lysis , dipst ick S.G. (Specific [place]) 1.025 Not Available [facility] [address], [place], [address], 01/15/2024 10:59:40 01/15/20 24 01/15/2024 urina lysis , dipst ick LEUKOCYTES Negati ve Not Available [facility] [address], [place], [address], 01/15/2024 10:59:40 01/23/20 24 01/23/2024 CT, abdom en + pelvi s, w/o contr ast EXAM: CT, ABDOME N + PELVIS , W/O CONTRA ST LOCATI ON: [place] DATE: 2023 INDICA TION: Gross hematu jessica [...] t suspic ious pelvic mass. MUSCUL OSKELE MELITON: No aggres sive osseou s lesion . [...] Lindsey MD on 2023 at 15:10 [email or web address] [facility] [place] [address], [place], [address], 01/26/2024 12:08:25 Result Notes Documentation Provider Name and Address Organization Details Recorded Time Ct, Abdomen + Pelvis, W/o Contrast : EXAM: CT, ABDOMEN + PELVIS, W/O CONTRAST LOCATION: [facility] DATE: 01/23/2024 INDICATION: Gross hematuria COMPARISON: 04/07/2014. TECHNIQUE: CT scan of the abdomen and pelvis was performed without IV contrast. Multiplanar reformats were obtained. Dose reduction techniques were used. CONTRAST: None. FINDINGS: LOWER CHEST: Small cluster of bronchiolitic left lower lobe nodules. No pneumonic consolidation. HEPATOBILIARY: Normal unenhanced liver. The gallbladder is nondistended and contains a small amount of sludge or noncalcified stones. PANCREAS: Normal. SPLEEN: Normal. ADRENAL GLANDS: Normal. KIDNEYS/BLADDER: Lobulated renal contours. No suspicious noncontrast renal lesion. A 2 x 2 by 3 mm stone at the left ureteropelvic junction does not result in upstream urinary obstruction. No other nephrolith or ureteral stone identified on either side. Normal unenhanced bladder. BOWEL: No obstruction or inflammatory change. Tiny duodenal diverticula. Normal appendix. LYMPH NODES: No lymphadenopathy. VASCULATURE: Mild atherosclerosis without abdominal aortic aneurysm. PELVIC ORGANS: Calcified/degenerative uterine fibroids without suspicious pelvic mass. MUSCULOSKELETAL: No aggressive osseous lesion. Lumbar spondylosis. IMPRESSION: 1. A 3 mm stone at the left ureteropelvic junction does not result in urinary obstruction. 2. Small cluster of infectious or inflammatory left lower lobe bronchiolitic nodules. This report was electronically interpreted by: Augusto Lindsey MD on 01/23/2024 at 15:10 Yessi benitez [facility] 01/26/2024 12:08:25 Problems Name Problem SNOMED Code Status Onset Date Resolution Date Notes Provider Name and Address Organization Details Recorded Time History of primary malignant neoplasm of urinary bladder 204115928 Active 2011 V10.51 : PERSONAL HX BLADDER CA Not Available [facility] 0 01:54:58 Problem Notes None recorded. Procedures Surgical History Date Name Laterality Status Provider Name and Address Organization Details Recorded Time 01/15/20 24 CystoscopyFemale completed Dong Stewart MD [address] [place], [place] [address], [place], [address] 01/15/2024 11:19:23 01/15/20 24 Bladder Scan completed Beatriz Richards [facility] 01/15/2024 11:04:32 Imaging Results None recorded. Procedure Notes None recorded. Medical Equipment None Reported. Allergies Allergen ID Allergen Name Allergen Category Reaction Reaction Severity Criticality Documentation Date Start Date Code Code System Note Provider Name and Address Organization Details Recorded Time 045374 cortisone medicatio n Not available Not available Not available 08/26/20192011 2878 RxNorm React ion: Shock /Unco nscio usnes s Not Available [facility] 0 00:42:43 618966 Substance with sulfonami de structure and antibacte rial mechanism of action (substanc e) medicatio n Not available Not available Not available 01/15/2024 27271 8003 SNOMED Beatriz benitez [facility] 4 10:53:39 Medications Name Sig Start Date [...] Updated DateTime 01/15/2024 162.56 cm 37.8 kg/m2 90416.32 g Beatriz Rcihards [facility] 01/15/2024 10:53:23 Social History Question Answer Notes LastModified by Organizat ion Details LastModified Time Tobacco Smoking Status Never Smoker Beatriz benitez [facility] 01/15/2024 10:57:07 What Was The Date Of Your Most Recent Tobacco Screening? 01/15/2024 [email or web address] Information not available 01/15/2024 Sex: Unknown Functional Status Question Answer Note LastModified by Organization D etails LastModified Time What is your level of alcohol consumption? None [email or web address] Information not available 01/15/2024 Mental Status None recorded. Family History Nothing Reported. Medical History No medical history recorded. Gynecological HistoryNo gynecological history recorded. Obstetrics History GPAL:G 0 P 0 0 0 0 Immunizations Vaccine Type Date Status Note Provider Nam e and Address Organization Details Recorded Time Influenza, split virus, quadrivalent, preservative 6 completed Beatriz benitez [facility] 01/15/2024 10:53:30 Influenza, high-dose, quadrivalent, PF 1 completed Beatriz benitez [facility] 01/15/2024 10:53:31 Influenza, high-dose, quadrivalent, PF 2 completed Beatriz benitez [facility] 01/15/2024 10:53:31 Influenza, high-dose, quadrivalent, PF 0 completed Beatriz Richards null, [facility] 01/15/2024 10:53:31 Influenza, high-dose, quadrivalent, PF 3 completed Beatriz Richards null, [facility] 01/15/2024 10:53:31 COVID-19, mRNA, LNP-S, PF, 30 mcg/0.3 mL dose 1 completed Beatriz Richards null, [facility] 01/15/2024 10:53:31 COVID-19, mRNA, LNP-S, PF, 30 mcg/0.3 mL dose 1 completed Beatriz Richards null, [facility] 01/15/2024 10:53:31 COVID-19, mRNA, LNP-S, PF, 30 mcg/0.3 mL dose 2 completed Beatriz Richards null, [facility] 01/15/2024 10:53:31 COVID-19, mRNA, LNP-S, PF, 30 mcg/0.3 mL dose 1 completed Beatriz Richards null, [facility] 01/15/2024 10:53:31 COVID-19, mRNA, LNP-S, bivalent, PF, 30 mcg/0.3 mL dose 2 completed Beatriz Richards null, [facility] 01/15/2024 10:53:31 COVID-19, mRNA, LNP-S, PF, yokasta-sucrose, 30 mcg/0.3 mL 3 completed Beatriz Richards null, [facility] 01/15/2024 10:53:31 pneumococcal polysaccharide PPV23 7 completed Beatriz Richards null, [facility] 01/15/2024 10:53:31 pneumococcal polysaccharide PPV23 8 completed Beatriz benitez, [facility] 01/15/2024 10:53:31 Novel Hrwlrnwwl-G0I3-32, all formulations 9 completed Beatriz Richards null, [facility] 01/15/2024 10:53:31 Pneumococcal conjugate PCV 13 2 completed Beatriz Richards null, [facility] 01/15/2024 10:53:31 zoster live 7 completed Beatriz Richards null, [facility] 01/15/2024 10:53:31 Influenza, high-dose, trivalent, PF 6 completed Beatriz Richards null, [facility] 01/15/2024 10:53:31 Influenza, high-dose, trivalent, PF 9 completed Beatriz Richards null, [facility] 01/15/2024 10:53:31 Influenza, split virus, trivalent, preservative 9 completed Beatriz Richards null, [facility] 01/15/2024 10:53:31 Influenza, split virus, trivalent, preservative 4 completed Beatriz benitez, [facility] 01/15/2024 10:53:31 Influenza, split virus, trivalent, preservative 3 completed Beatriz Richards null, [facility] 01/15/2024 10:53:31 Influenza, split virus, trivalent, preservative 7 completed Beatriz benitez, [facility] 01/15/2024 10:53:31 Influenza, split virus, trivalent, preservative 9 completed Beatriz benitez, [facility] 01/15/2024 10:53:31 Influenza, split virus, trivalent, preservative 1 completed Beatriz Richards null, [facility] 01/15/2024 10:53:31 Influenza, split virus, trivalent, preservative 6 completed Beatriz Richards null, [facility] 01/15/2024 10:53:31 Influenza, split virus, trivalent, preservative 8 completed Beatriz Richards null, [facility] 01/15/2024 10:53:31 Influenza, split virus, trivalent, preservative 0 completed Beatriz benitez [facility] 01/15/2024 10:53:31 Influenza, split virus, trivalent, PF 0 completed Beatriz benitez, [facility] 01/15/2024 10:53:31 Influenza, split virus, trivalent, PF 2 [facility] 10:53:31 Td (adult), 5 Lf tetanus toxoid, preservative free, adsorbed 0 [facility]15[facility]24 10:53:31 Influenza, split virus, quadrivalent, PF 7 completed Beatriz benitez [facility] 01/15/2024 10:53:31 Influenza, split virus, quadrivalent, PF 5 [facility]24 10:53:31 Influenza, split virus, quadrivalent, PF 8 [facility]/15[facility]24 10:53:31 Past Encounters Encounter ID Performer Location Encounter Start Date Encounter Closed Date Diagnosis/Indication Diagnosis SNOMED-CT Code Diagnosis ICD10 Code Diagnosis IMO Codes Diagnosis Note [id number] Dong Stewart MD [facility] [address] [place] [address] 01/15/2024 10:39:58 01/16/2024 11:03:16 Juan C hematuria 167124724 R31.0 Based on 2020 AUA micro-reid turia guidelines , I recommend cystoscopy and axial upper tract imaging in patients with micro-reid turia categorize d as high-risk for malignancy (age more than 60, strong family history, strong smoking history, environmen meliton exposure, voiding symptoms, h/o chemo/radi ation, bladder irritants) . In case of negative results, she would need her next UA check in one year and return in 3-5 years unless she develops additional voiding symptoms including gross hematuria For persistent or recurrent asymptomat ic microhemat uria after initial negative urologic work-up, repeat evaluation within three to five years should be considered With normal CT urogram her micro-erid turia might be coming from vaginal dryness ( lichen sclerosis) Health Concerns Section Related Observation LastModified by Organization Detai ls LastModified Time None Recorded Concern Status LastModified by Organization Details LastModified Time None Recorded Advance Directives Directive None Recorded Payers Insurance Date Sequence Insurance Name Policy Number Policy Bach Covered Member ID Bach Member ID Guarantor Name 01/12/2024 1 [place]: [employer] Griselda K Ming [id number] Griselda K Ming 01/26/2024 2 [facility] [id number] Griselda K Ming [id number] Griselda K Ming Notes Date Note Type Note Provider Name and Address Organization Details Recorded Time 01/15/2024 text/html 79 YO F referred by Dr. Gavi Cloud MD ([facility]) for evaluation of hematuria w/ history of [...] sore at the perineum Dong Stewart MD [address] [place] [address],[address], [place], [address], [facility] 01/15/2024 11:28:42 OBGyn Episode No OBEpisode recorded.
--- NOTE | 2025-01-07 18:02 | CRLHL7_ITS ---
For Patients: As a result of the Century Cures Act, medical imaging exams and procedure reports are released immediately into your electronic medical record. You may view this report before your referring provider. If you have questions, please contact your health care provider. Indication: Episode of slurred speech. Technique: Noncontrast CT images of the brain. Comparison: None. Findings: Beam hardening artifact secondary to a hearing device overlying the right temporoparietal calvarium limits evaluation of adjacent structures. Mild diffuse cerebral volume loss. No mass effect or midline shift. Oliveira-white differentiation is maintained. No acute intracranial hemorrhage within exam limitations. No pathologic extra-axial fluid collection. Suggested mild chronic microvascular ischemic changes. Intracranial atherosclerotic calcifications. Thinning of the right ocular lens. Calvarium is intact. Hyperostosis frontalis interna. Mild paranasal sinus mucosal thickening. Postsurgical changes of right canal wall down mastoidectomy. The mastoid air cells are clear. Impression: 1. Beam hardening artifact secondary to a hearing device overlying the right temporoparietal calvarium limits evaluation of adjacent structures. 2. No acute intracranial hemorrhage or mass effect within exam limitations. Please note that all CT scans at this facility use dose modulation, iterative reconstruction, and/or weight-based dosing when appropriate to reduce radiation dose to as low as reasonably achievable. Dictated by Augusto Chung MD @ 01/07/2025 6:57:16 PM (Electronically Signed)
--- NOTE | 2025-01-07 18:02 | CT_ITS ---
Patient: JOANNE WIGGINS Facility:?[facility] Patient ID:?[id number] Site Patient ID:?[id number]. Site :?[id number] Study:?CT-Head Angio W/IV-01/07/2025 8:42:12 PM Ordering Physician:Soumya Pena Final Report: CT ANGIOGRAM HEAD AND NECK DATE: 01/07/2025 CLINICAL HISTORY: Patient with transient slurred speech. TECHNIQUE: Standard helical CT image acquisition through the head and neck was performed after intravenous contrast bolus enhancement. 2D and 3D MIP images for post-processing were performed and interpreted on an independent workstation and 3D images were permanently archived. COMPARISON: None. FINDINGS: The origins of the great vessels from the aortic arch are patent. The origin of the right vertebral artery is patent. The origin of the left vertebral artery is patent. The common carotid arteries are patent. There is no stenosis at the origin of the right internal carotid artery by NASCET criteria. There is no stenosis at the origin of the left internal carotid artery by NASCET criteria. The rest of the cervical segments of the internal carotid arteries are patent up to their intracranial segments. The intracranial segments of the internal carotid arteries are patent. The right vertebral artery is dominant. The cervical segments of the vertebral arteries are patent. The intracranial segments of the vertebral arteries are patent. The middle cerebral arteries are normal without aneurysm or proximal occlusion identified. The anterior cerebral arteries are normal without aneurysm or proximal occlusion identified. The anterior communicating artery is well visualized and appears normal. The basilar artery is normal without aneurysm or occlusion. The posterior cerebral arteries are normal without aneurysm or proximal occlusion. There is normal opacification of major intracranial venous structures. The visualized lung apices are unremarkable. The thyroid gland is unremarkable. The soft tissues of the neck are unremarkable. There are degenerative changes in the cervical spine. IMPRESSION: Patent cervical and proximal intracranial vasculature without intracranial aneurysms. Please note that all CT scans at this facility use dose modulation, iterative reconstruction, and/or weight-based dosing when appropriate to reduce radiation dose to as low as reasonably achievable. Dictated by: Adrian Rodas MD @ 01/07/2025 20:48:37 Signed by:?Adrian Rodas MD @01/07/2025 8:48:37 PM (Electronic Signature)
--- NOTE | 2025-01-07 18:02 | CT_ITS ---
Patient: JOANNE WIGGINS Facility:?[facility] Patient ID:?[id number] Site Patient ID:?[id number]. Site :?[id number] Study:?CT-Neck Angio W/IV ONLY-01/07/2025 8:41:47 PM Ordering Physician:Soumya Pena Final Report: CT ANGIOGRAM HEAD AND NECK DATE: 01/07/2025 CLINICAL HISTORY: Patient with transient slurred speech. TECHNIQUE: Standard helical CT image acquisition through the head and neck was performed after intravenous contrast bolus enhancement. 2D and 3D MIP images for post-processing were performed and interpreted on an independent workstation and 3D images were permanently archived. COMPARISON: None. FINDINGS: The origins of the great vessels from the aortic arch are patent. The origin of the right vertebral artery is patent. The origin of the left vertebral artery is patent. The common carotid arteries are patent. There is no stenosis at the origin of the right internal carotid artery by NASCET criteria. There is no stenosis at the origin of the left internal carotid artery by NASCET criteria. The rest of the cervical segments of the internal carotid arteries are patent up to their intracranial segments. The intracranial segments of the internal carotid arteries are patent. The right vertebral artery is dominant. The cervical segments of the vertebral arteries are patent. The intracranial segments of the vertebral arteries are patent. The middle cerebral arteries are normal without aneurysm or proximal occlusion identified. The anterior cerebral arteries are normal without aneurysm or proximal occlusion identified. The anterior communicating artery is well visualized and appears normal. The basilar artery is normal without aneurysm or occlusion. The posterior cerebral arteries are normal without aneurysm or proximal occlusion. There is normal opacification of major intracranial venous structures. The visualized lung apices are unremarkable. The thyroid gland is unremarkable. The soft tissues of the neck are unremarkable. There are degenerative changes in the cervical spine. IMPRESSION: Patent cervical and proximal intracranial vasculature without intracranial aneurysms. Please note that all CT scans at this facility use dose modulation, iterative reconstruction, and/or weight-based dosing when appropriate to reduce radiation dose to as low as reasonably achievable. Dictated by: Adrian Rodas MD @ 01/07/2025 20:48:25 Signed by:?Adrian Rodas MD @01/07/2025 8:48:25 PM (Electronic Signature)
--- NOTE | 2025-01-07 18:02 | ED.NEUROSD ---
HPI - Neuro Symptoms/Deficit General Date Seen: 01/07/25 Chief Complaint: Neuro Symptoms/Altered Deficit Stated Complaint: slurred speach, difficulty breathing Time Seen by Provider: 01/07/25 17:48 Source: patient and family Mode of arrival: ambulatory Limitations: no limitations History of Present Illness HPI Narrative: Patient is an 80-year-old female with a history of idiopathic cardiomyopathy, remission of leukemia, and muscular dystrophy presenting to the emergency department with her sons for an episode of inability to comprehend the back she was reading and slurred speech. She states his son was with her at about 11:30 and she was asymptomatic. She then noticed later while she is reading a book that she suddenly could not comprehend what she was reading. She then called her son trying the tongue with something was wrong and he states she was having slurred speech. This was about 13:00. He went to her house in states by the time he got there her slurred speech was improved. They gave her an aspirin and brought her to the [facility]. They waited there for 2-1/2 hours and her symptoms fully resolved and since it was going to be a long wait they came to the [facility]. Patient states she feels asymptomatic now. Does state about 20 years ago she had 2 episodes about 2 months apart of facial numbness related not know if it was a TIA or not. States she also episodes shortness of breath that she states was very mild that has also fully resolved. Denies any current weakness or numbness. Denies fevers, chills, chest pain, shortness of breath, diarrhea, constipation, dysuria, headache, vision changes. No other concerns noted at this time. Related Data Home Medications ?Medication ?Instructions ?Recorded ?Confirmed betaxolol 0.5 % eye drops 1 drp ophthalmic (eye-right) BID 02/01/24 01/07/25 carvedilol 12.5 mg tablet 12.5 mg PO BID 02/01/24 01/07/25 cyclobenzaprine 5 mg tablet 5 mg PO 3XD PRN muscle spasm 02/01/24 01/07/25 diazepam 2 mg tablet 2 mg PO 02/01/24 diclofenac sodium 1 % topical gel 2 g topical 3XD PRN 02/01/24 01/07/25 dorzolamide 2 % eye drops 1 drp ophthalmic (eye-right) BID 02/01/24 01/07/25 fluticasone furoate 100 1 inh inhalation DAILY 02/01/24 01/07/25 mcg/actuation blister powder for inhalation (Arnuity Ellipta) furosemide 20 mg tablet 20 mg PO DAILY 02/01/24 01/07/25 hydrocodone 5 mg-acetaminophen 325 1 tab Q6H PRN pain 02/01/24 mg tablet imatinib 400 mg tablet (Gleevec) 400 mg PO DAILY 02/01/24 01/07/25 irbesartan 75 mg tablet 75 mg PO DAILY 02/01/24 01/07/25 mometasone 220 mcg/actuation(60 inhalation QPM 02/01/24 doses) breath activated powder inhaler (Asmanex Twisthaler) omeprazole 40 mg capsule,delayed 40 mg PO DAILY PRN heartburn 02/01/24 01/07/25 release potassium chloride 10 mEq 10 meq PO DAILY 02/01/24 01/07/25 tablet,extended release(part/cryst) (Klor-Con M) prednisone 1 mg tablet 2 mg PO DAILY 02/01/24 01/07/25 sertraline 25 mg tablet 25 mg PO DAILY 02/01/24 01/07/25 sertraline 50 mg tablet 75 mg PO DAILY 02/01/24 01/07/25 Allergies Allergy/AdvReac Type Severity Reaction Status Date / Time cortisone AdvReac Unknown Verified 01/07/25 17:29 Sulfa Antibiotics Allergy Unknown Uncoded 09/21/21 09:29 Review of Systems Status of ROS: Reports: 10 or more systems reviewed and unremarkable except as noted in History and below [facility] Medical History Muscular dystrophy ?G71.00 - Muscular dystrophy, unspecified (ICD-10) Bladder cancer ?C67.9 - Malignant neoplasm of bladder, unspecified (ICD-10) CML (chronic myelocytic leukemia) ?C92.10 - Chronic myeloid leukemia, BCR/ABL-positive, not having achieved remission (ICD-10) Hypertension ?I10 - Essential (primary) hypertension (ICD-10) Social History Smoking Status: Never smoker How often do you have a drink containing alcohol: never AUDIT-C Alcohol total score: 0 Non-prescribed substance use: denies use service: No Exam Narrative: Exam Narrative: Const: Well-nourished, Well-developed, in no distress Eyes: PERRL, no conjunctival injection, and symmetrical lids HENT: Atraumatic external nose and ears. Moist mucous membranes. Neck: Symmetric, trachea midline, No thyromegaly. CVS: RRR, No murmurs or gallops. Peripheral pulses 2+ and equal in all extremities RESP: Unlabored respiratory effort. Clear to auscultation bilaterally. GI: Nontender/Nondistended, No rebound or guarding. MSK:Extremities w/o deformity, Normal Active ROM Skin: Warm, Dry. No rashes or lesions. Neuro: Normal Muscle tone, Cranial nerves 2-12 grossly intact, normal [id number], normal [id number], normal gait, normal strength 5/5 upper lower extremities bilaterally, normal sensation upper and lower extremities bilaterally, normal rapid alternating movements. Psych: Awake, Alert, & Oriented x3. Appropriate mood and affect. Const: Vital Signs, click to edit/add: Vital Signs - 24 hr 01/07/25 17:17 01/07/25 20:34 Temperature 96.6 F L 98.7 F Pulse Rate [Right Pulse Oximeter] 59 L 73 Respiratory Rate 18 18 Blood Pressure [Ri ght Upper Arm] 152/75 H 147/73 H Pulse Oximetry 96 93 Oxygen Delivery Me thod Room Air Room Air Course Vital Signs Vital signs: Initial Vital Signs Temperature 96.6 F L 01/07/25 17:17 Temperature Source Temporal Artery Scan 01/07/25 17:17 Pulse Rate 59 L 01/07/25 17:17 Pulse Rhythm Regular 01/07/25 17:17 Pulse Strength 3+ Normal 01/07/25 17:17 Respiratory Rate 18 01/07/25 17:17 Blood Pressure 152/75 H 01/07/25 17:17 Blood Pressure Mean 100 01/07/25 17:17 Blood Pressure Position Sitting 01/07/25 17:17 Pulse Oximetry 96 01/07/25 17:17 Oxygen Delivery Method Room Air 01/07/25 17:17 Vital Signs Temperature 96.6 F L 01/07/25 17:17 Pulse Rate 59 L 01/07/25 17:17 Respiratory Rate 18 01/07/25 17:17 Blood Pressure 152/75 H 01/07/25 17:17 Pulse Oximetry 96 01/07/25 17:17 Oxygen Delivery Method Room Air 01/07/25 17:17 Temperature 98.7 F 01/07/25 20:34 Pulse Rate 73 01/07/25 20:34 Respiratory Rate 18 01/07/25 20:34 Blood Pressure 147/73 H 01/07/25 20:34 Pulse Oximetry 93 01/07/25 20:34 Oxygen Delivery Method Room Air 01/07/25 20:34 MDM - Neuro Symptoms/Deficit MDM Narrative Medical decision making narrative: Patient is an 80-year-old female presenting to the emergency department for an episode of slurred speech. Based on her description this could very well have been a Ca that is now resolved. Will do CT scan of her head and CTA head and neck. MRI is not available tonight. Could also be related to electrolyte abnormalities on episode of dehydration. Will check CBC, BMP, magnesium. Considering her age close related to cardiac abnormality, especially considering her idiopathic cardiomyopathy. Will order EKG and troponin. Also do urinalysis and viral swab. Patient's lab work shows an elevated troponin 0.06. Her most recent troponin from 1 year ago 0.05. She also has known cardiomyopathy. She likely has a chronically elevated troponin but I was unable to see other troponins in [facility] or [facility]. Rest of her labs showed no concerning abnormalities. CT scan of her head shows no acute concerning abnormalities as interpreted by myself and the radiologist. There was some beam hardening artifact from her cochlear implant. CTA is will be done. CTA returned and interpreted by myself and the radiologist shows no acute concerning abnormalities. I do believe she will likely need an MRI cut in waiting to speak to ENT until we find out if her cochlear implant is MRI compatible. I spoke to the ENT provider at [facility] and she needs a MRI kit placed on the cochlear implant to receive an MRI. He is unsure how long it even takes to get the MRI kit from the gasket notcher. Due to this I did speak to [facility] Dr. Landa who recommends loading her on Plavix and aspirin. Since she already took half full dose aspirin earlier today I will give her another 164 mg. He states watch her overnight and make she she has no further signs of a stroke and start her on 81 aspirin and 75 Plavix daily. States they will work on setting her up an outpatient MRI. Her repeat troponin is also 0.06. At this time I believe this is chronic and she is not having any symptoms currently. She will be admitted to the hospitalist. Lab Data Labs: Lab Results 01/07/25 01/07/25 01/07/25 Range/Units 18:02 19:05 19:07 WBC 5.99 (4.50-11.00) K/uL RBC 4.13 (4.00-5.20) m/uL Hgb 13.6 (12.0-16.0) gm/dL Hct 39.3 (33.0-51.0) % MCV 95 (80-100) fL MCH 33 (26-34) pg MCHC 35 (32-36) gm/dL RDW Coeff of Karoline 12.8 (11.5-15.5) % Plt Count 130 L (140-440) K/uL Neut % (Auto) 56.4 (42.0-72.0) % Lymph % (Auto) 31.9 (20-44) % [place] % (Auto) 7.5 (0.0-11.0) % Eos % (Auto) 3.5 (0.0-7.0) % Baso % (Auto) 0.7 (0.0-3.0) % Neut # (Auto) 3.38 (1.7-7.0) K/uL Lymph # (Auto) 1.91 (0.90-2.90) K/uL [place] # (Auto) 0.40 (0.00-0.90) K/UL Eos # (Auto) 0.21 (0.00-0.50) K/uL Baso # (Auto) 0.04 (0.00-0.30) K/uL Abs Immat Gran (auto) 0.00 (0.00-0.30) K/uL Imm/Tot Granulo (auto) 0.0 % Sodium 138 (135-149) mmol/L Potassium 4.1 (3.6-5.1) mmol/L Chloride 101 (96-114) mmol/L Carbon Dioxide 31 (20-32) mmol/L Anion Gap 6 L (7-15) mEq/L BUN 18 (7-30) mg/dL Creatinine 1.1 (0.5-1.5) mg/dL Estimated GFR 50 ml/min Glucose 101 (60-115) mg/dL Calcium 9.7 (8.4-10.6) mg/dL Magnesium 1.6 (1.5-2.6) mg/dL Troponin I 0.06 H* (0.01-0.04) ng/mL Urine Color Yellow (Yellow) Urine Appearance Clear (Clear) Urine pH 6.0 (5.0-8.5) Ur Specific [place] 1.010 (1.000-1.030) Urine Protein Negative (Negative) Urine Glucose (UA) Negative (Negative) Urine Ketones Negative (Negative) Urine Blood Negative (Negative) Urine Nitrite Negative (Negative) Urine Bilirubin Negative (Negative) Urine Urobilinogen 0.2 (0.2-1.0) Ur Leukocyte Esterase Negative (Negative) Urine RBC 0-2 (0-2) Urine WBC 0-2 (0-5) Ur Squamous Epith Cells None (None-Few) Urine Bacteria None (None) SARS-CoV-2 (PCR) Negative SARS-CoV-2 (Negative) Influenza Type A (PCR) Negative PCR FLU A (Negative) Influenza Type B (PCR) Negative PCR FLU B (Negative) RSV (PCR) Negative PCR RSV (Negative) Lab Acknowledgement POC Creatinine 1.3 (0.6-1.3) mg/dl POC Troponin I 0.06 H (0.01-0.04) ng/ml 01/07/25 01/07/25 Range/Units 19:48 20:40 WBC (4.50-11.00) K/uL RBC (4.00-5.20) m/uL Hgb (12.0-16.0) gm/dL Hct (33.0-51.0) % MCV (80-100) fL MCH (26-34) pg MCHC (32-36) gm/dL RDW Coeff of Karoline (11.5-15.5) % Plt Count (140-440) K/uL Neut % (Auto) (42.0-72.0) % Lymph % (Auto) (20-44) % [place] % (Auto) (0.0-11.0) % Eos % (Auto) (0.0-7.0) % Baso % (Auto) (0.0-3.0) % Neut # (Auto) (1.7-7.0) K/uL Lymph # (Auto) (0.90-2.90) K/uL [place] # (Auto) (0.00-0.90) K/UL Eos # (Auto) (0.00-0.50) K/uL Baso # (Auto) (0.00-0.30) K/uL Abs Immat Gran (auto) (0.00-0.30) K/uL Imm/Tot Granulo (auto) % Sodium (135-149) mmol/L Potassium (3.6-5.1) mmol/L Chloride (96-114) mmol/L Carbon Dioxide (20-32) mmol/L Anion Gap (7-15) mEq/L BUN (7-30) mg/dL Creatinine (0.5-1.5) mg/dL Estimated GFR ml/min Glucose (60-115) mg/dL Calcium (8.4-10.6) mg/dL Magnesium (1.5-2.6) mg/dL Troponin I (0.01-0.04) ng/mL Urine Color (Yellow) Urine Appearance (Clear) Urine pH (5.0-8.5) Ur Specific [place] (1.000-1.030) Urine Protein (Negative) Urine Glucose (UA) (Negative) Urine Ketones (Negative) Urine Blood (Negative) Urine Nitrite (Negative) Urine Bilirubin (Negative) Urine Urobilinogen (0.2-1.0) Ur Leukocyte Esterase (Negative) Urine RBC (0-2) Urine WBC (0-5) Ur Squamous Epith Cells (None-Few) Urine Bacteria (None) SARS-CoV-2 (PCR) (Negative) Influenza Type A (PCR) (Negative) Influenza Type B (PCR) (Negative) RSV (PCR) (Negative) Lab Acknowledgement Test Added POC Creatinine (0.6-1.3) mg/dl POC Troponin I 0.06 H (0.01-0.04) ng/ml Imaging Data CT scan head: Attestation: I have reviewed the pertinent imaging results. Radiologist's impression: 1. Beam hardening artifact secondary to a hearing device overlying the right temporoparietal calvarium limits evaluation of adjacent structures. 2. No acute intracranial hemorrhage or mass effect within exam limitations. Please note that all CT scans at this facility use dose modulation, iterative reconstruction, and/or weight-based dosing when appropriate to reduce radiation dose to as low as reasonably achievable. Dictated by Augusto Chung MD @ 01/07/2025 6:57:16 PM CTA neck: Attestation: I have reviewed the pertinent imaging results. Radiologist's impression: Patent cervical and proximal intracranial vasculature without intracranial aneurysms. Please note that all CT scans at this facility use dose modulation, iterative reconstruction, and/or weight-based dosing when appropriate to reduce radiation dose to as low as reasonably achievable. Dictated by: Adrian Rodas MD @ 01/07/2025 20:48:25 CTA head: Attestation: I have reviewed the pertinent imaging results. Radiologist's impression: Patent cervical and proximal intracranial vasculature without intracranial aneurysms. Please note that all CT scans at this facility use dose modulation, iterative reconstruction, and/or weight-based dosing when appropriate to reduce radiation dose to as low as reasonably achievable. Dictated by: Adrian Rodas MD @ 01/07/2025 20:48:37 ECG Data Attestation: I personally reviewed and interpreted this ECG as follows: Prior ECG tracings: available for review Interpretation: Sinus bradycardia with a rate of 56 beats per minute, normal intervals, left axis deviation, left bundle-branch block, no ST or T-wave abnormalities. Appears similar previous EKG on file. Discharge Plan Discharge Clinical Impression: Transient cerebral ischemia Qualifiers: Transient cerebral ischemia type: unspecified Qualified Code(s): G45.9 - Transient cerebral ischemic attack, unspecified Patient Disposition: Admitted As Observation Condition: Stable
[2025-01-07 19:09] LABS: PCR FLU A Negative PCR FLU A (Negative); PCR FLU B Negative PCR FLU B (Negative); PCR RSV Negative PCR RSV (Negative); SARS PCR* Negative SARS-CoV-2 (Negative)
[2025-01-07 19:16] LABS: Hematocrit* 39.3 % (33.0-51.0); Hemoglobin* 13.6 gm/dL (12.0-16.0); Immature Granulocytes Abs Auto 0.00 K/uL (0.00-0.30); Immature Granulocytes Pct Auto 0.0 %; Lymphocytes Absolute Auto 1.91 K/uL (0.90-2.90); Mean Corpuscular HGB Conc 35 gm/dL (32-36); Mean Corpuscular Hemoglobin 33 pg (26-34); Mean Corpuscular Volume 95 fL (80-100); RDW Coefficient of Variation % 12.8 % (11.5-15.5); Red Blood Count* 4.13 m/uL (4.00-5.20); White Blood Count* 5.99 K/uL (4.50-11.00)
[2025-01-07 19:18] LABS: Slide Review Reflex No
[2025-01-07 19:29] LABS: Chloride* 101 mmol/L (96-114)
[2025-01-07 19:30] LABS: Potassium* 4.1 mmol/L (3.6-5.1); Sodium* 138 mmol/L (135-149)
[2025-01-07 19:33] LABS: Anion Gap 6 mEq/L (7-15); Blood Urea Nitrogen* 18 mg/dL (7-30); Calcium* 9.7 mg/dL (8.4-10.6); Carbon Dioxide* 31 mmol/L (20-32); Creatinine* 1.1 mg/dL (0.5-1.5); Estimated Glomerular Filt Rate 50 ml/min; Glucose* 101 mg/dL (60-115)
[2025-01-07 19:33] LABS: Appearance Urine Clear (Clear)
[2025-01-07 19:43] LABS: Creatinine, Point-of-Care* 1.3 mg/dl (0.6-1.3); Troponin, Point-of-Care* 0.06 ng/ml (0.01-0.04)
[2025-01-07 20:34] VITALS: BP 147/73; PULSE 73; RESP 18; TEMP 37.1; O2SAT 93
--- NOTE | 2025-01-07 21:10 | PC.NURSE ---
Elia taking to stroke neuro at [facility]
[2025-01-07 21:20] LABS: Troponin, Point-of-Care* 0.06 ng/ml (0.01-0.04)
[2025-01-07] MEDS: ASPIRIN 81 MG TAB.CHEW 162 MG PO (21:27)
[2025-01-07] MEDS: CLOPIDOGREL 300 MG TABLET PO (21:27)
[2025-01-07 22:08] VITALS: BP 143/71; PULSE 59; RESP 16; TEMP 36.6; O2SAT 94; BMI 40.6
[2025-01-07 23:00] VITALS: PULSE 59; RESP 16
--- NOTE | 2025-01-07 23:51 | PM.IMHP1 ---
Assessment and Plan Assessment and plan (1) Transient cerebral ischemia: Problem comment: - transient alexia and expressive aphasia, 1 to 1-1/2 hours in duration - [facility] Emergency Department physician consulted with [facility] where she receives her Neurology cares, neurologist recommended initiation of aspirin and clopidogrel, overnight observation, discharge if stable and if not confer with [facility] again. - in-hospital monitor with neuro checks, telemetry, echo, lipid panel in the morning, physical therapy, occupational therapy Status: Acute (2) Elevated troponin level not due myocardial infarction: Problem comment: - chronic Status: Acute (3) Cardiomyopathy, idiopathic: Problem comment: - followed by [facility] Status: Acute (4) Muscular dystrophy: Problem comment: - Facioscapulohumeral muscular dystrophy - has a son with a similar diagnosis Status: Acute (5) Cochlear implant status: Problem comment: 04/2024, on the right Status: Acute Plan 1. Reviewed impression, plan, recommendations with patient 2. Answered her questions are satisfaction 3. She is agreeable to above stated plans and recommendations Total Time Spent Total Time Spent: 70 minutes Hospitalist- H&P: HPI History of Present Illness Date Seen: 01/07/25 Chief complaint: Transient alexia and expressive aphasia Narrative: Griselda Lai is a 80 year old woman who resides in her private residence presents to the emergency department at [facility] on 01/07/2025 with complaint of transient alexia and expressive aphasia lasting approximately 60-90 minutes today. Prior to 1:00 p.m. today she was in her usual state of health. Later she was reading a book and realized she was not comprehending the words even though she can not really reading the words. She managed to call her son and notice that she was having difficulties expressing herself with her words and finding the right words. Son also noticed word seemed a little more slurred. Patient was brought to the [facility] and administered a dose of aspirin. In the emergency department at the [facility] she waited for 2-1/2 hours without being seen and then the patient and family opted to bring her to [facility] thinking that she would be seen and treated sooner. Again her symptoms resolved within approximately 1 to 1-1/2 hours of the onset. [facility] Emergency Department physician conferred with [facility] where she receives her neurology cares. Given that patient has a chronic cochlear implant she is not a candidate to have MRI scan at [facility]. Additionally the cochlear implant would require ENT intervention before she could have an MRI scan at another institution. Given the evolution of her symptoms, neurologist recommended overnight observation and consider additional outpatient assessment if her condition remains stable. Patient had 2 similar episodes about 20 years ago, but she notes that those episodes were more severe than presently. Studies done at that time did not demonstrate acute stroke but reportedly demonstrated decreased caliber of vertebral arteries. No recent fever, rigors, diaphoresis, or illness. No recent travel, trauma, injury. Patient has longstanding facioscapulohumeral muscular dystrophy. Also has idiopathic cardiomyopathy. She has followed by [facility] for both of these. Most though has polymyalgia rheumatica for which she is followed by Rheumatology and receives infusions once monthly. Receives her primary care through [facility]. Review of Systems Status of ROS: Reports: 10 or more systems reviewed and unremarkable except as noted in History and below Medical Decision Making Medical Decision Making Code Status: Modified code status, attempt resuscitation if witnessed and no intubation or ventilation. Has patient completed a Health Care Directive: Yes During This Stay, Who Would You Like To Make Decisions For You In The Event You Are Unable To Make Them For Yourself?: Baljit-son [phone] [facility] Medical History (Updated 01/08/25 @ 00:13 by Richard Vincent MD) Cochlear implant status ?Z96.21 - Cochlear implant status (ICD-10) H/O coronary angiogram ?Z98.890 - Other specified postprocedural states (ICD-10) Fatty liver ?K76.0 - Fatty (change of) liver, not elsewhere classified (ICD-10) Obesity ?E66.9 - Obesity, unspecified (ICD-10) Chronic restrictive lung disease ?J98.4 - Other disorders of lung (ICD-10) History of transient cerebral ischemia ?Z86.73 - Personal history of transient ischemic attack (TIA), and cerebral infarction without residual deficits (ICD-10) History of subdural hemorrhage ?Z86.79 - Personal history of other diseases of the circulatory system (ICD-10) Central sleep apnea ?G47.31 - Primary central sleep apnea (ICD-10) Obstructive sleep apnea ?G47.33 - Obstructive sleep apnea (adult) (pediatric) (ICD-10) History of sarcoidosis ?Z86.2 - Personal history of diseases of the blood and blood-forming organs and certain disorders involving the immune mechanism (ICD-10) Polymyalgia rheumatica ?M35.3 - Polymyalgia rheumatica (ICD-10) Congestive heart failure, unspecified ?I50.9 - Heart failure, unspecified (ICD-10) Cardiomyopathy, idiopathic ?I42.9 - Cardiomyopathy, unspecified (ICD-10) Muscular dystrophy ?G71.00 - Muscular dystrophy, unspecified (ICD-10) Bladder cancer ?C67.9 - Malignant neoplasm of bladder, unspecified (ICD-10) CML (chronic myelocytic leukemia) ?C92.10 - Chronic myeloid leukemia, BCR/ABL-positive, not having achieved remission (ICD-10) Hypertension ?I10 - Essential (primary) hypertension (ICD-10) Surgical History Hx laparoscopic cholecystectomy ?Z90.49 - Acquired absence of other specified parts of digestive tract (ICD-10) History of ERCP ?Z98.890 - Other specified postprocedural states (ICD-10) H/O cystoscopy ?Z98.890 - Other specified postprocedural states (ICD-10) Social History What is your current living situation?: I presently have a place to live Problems where you live: no known problems Problems where you live details: n/a In the past 12 months, utilities in danger of being shut off: no In past 12 months, lack of transportation kept you from medical appts, meetings, work, or getting things needed for daily living: no In the past 12 mos, have been you worried that your food would run out before you had money to buy more?: never true In the past 12 mos, the food you bought just didn't last and you didn't have money to buy more?: never true Highest level of school completed/degree received: high school graduate Smoking Status: Never smoker Do you use any of these nicotine containing products: None Second hand tobacco smoke exposure: No How often do you have a drink containing alcohol: never How often do you have six or more drinks on one occasion: Never AUDIT-C Alcohol total score: 0 Non-prescribed substance use: denies use Caffeine: No How often does anyone, including family, friends and others, physically hurt you: never How often does anyone, including family, friends and others, insult or talk down to you: never How often does anyone, including family, friends and others, threaten you with harm: never How often does anyone, including family, friends and others, scream or curse at you: never service: No Meds Home Medications and Allergies Home Medications ?Medication ?Instructions ?Recorded ?Confirmed ?Type betaxolol 0.5 % eye drops 1 drp ophthalmic (eye-right) BID 02/01/24 01/07/25 History carvedilol 12.5 mg tablet 12.5 mg PO BID 02/01/24 01/07/25 History cyclobenzaprine 5 mg tablet 5 mg PO 3XD PRN muscle spasm 02/01/24 01/07/25 History diazepam 2 mg tablet 2 mg PO 02/01/24 History diclofenac sodium 1 % topical gel 2 g topical 3XD PRN 02/01/24 01/07/25 History dorzolamide 2 % eye drops 1 drp ophthalmic (eye-right) BID 02/01/24 01/07/25 History fluticasone furoate 100 1 inh inhalation DAILY 02/01/24 01/07/25 History mcg/actuation blister powder for inhalation (Arnuity Ellipta) furosemide 20 mg tablet 20 mg PO DAILY 02/01/24 01/07/25 History hydrocodone 5 mg-acetaminophen 325 1 tab Q6H PRN pain 02/01/24 History mg tablet imatinib 400 mg tablet (Gleevec) 400 mg PO DAILY 02/01/24 01/07/25 History irbesartan 75 mg tablet 75 mg PO DAILY 02/01/24 01/07/25 History mometasone 220 mcg/actuation(60 inhalation QPM 02/01/24 History doses) breath activated powder inhaler (Asmanex Twisthaler) omeprazole 40 mg capsule,delayed 40 mg PO DAILY PRN heartburn 02/01/24 01/07/25 History release potassium chloride 10 mEq 10 meq PO DAILY 02/01/24 01/07/25 History tablet,extended release(part/cryst) (Klor-Con M) prednisone 1 mg tablet 2 mg PO DAILY 02/01/24 01/07/25 History sertraline 25 mg tablet 25 mg PO DAILY 02/01/24 01/07/25 History sertraline 50 mg tablet 75 mg PO DAILY 02/01/24 01/07/25 History Allergies Allergy/AdvReac Type Severity Reaction Status Date / Time cortisone AdvReac Unknown Verified 01/07/25 17:29 Sulfa Antibiotics Allergy Unknown Uncoded 09/21/21 09:29 Exam Narrative: Exam Narrative: Examined patient in her hospital room. Appears comfortable no acute distress. Vision and hearing are adequate with her cochlear implant and hearing aid in place. Alert and oriented x4. Articulate, thoughtful, friendly. No acute focal motor deficits. Cranial nerves 3-12 grossly normal, save obvious hearing loss. Midline trachea. No JVD or hepatojugular reflux. No carotid bruits. Lungs are clear to auscultation without wheezing, rhonchi, rales. Heart tones with regular rhythm, without murmur, gallop, rub. PMI not laterally displaced. Abdomen with active bowel sounds, soft, nontender. No rebound or guarding. Moves all 4 extremities. Skin is intact. Const: Vital Signs, click to edit/add: Vital Signs - 24 hr 01/07/25 17:17 01/07/25 20:34 01/07/25 22:08 Temperature 96.6 F L 98.7 F 97.8 F Pulse Rate [Right Pulse Oximeter] 59 L 73 59 L Respiratory Rate 18 18 16 Blood Pressure [Ri ght Arm] 143/71 H Blood Pressure [Ri ght Upper Arm] 152/75 H 147/73 H Pulse Oximetry 96 93 94 Oxygen Delivery Me thod Room Air Room Air Room Air 01/07/25 22:08 Temperature Pulse Rate [Right Pulse Oximeter] Respiratory Rate Blood Pressure [Ri ght Arm] Blood Pressure [Ri ght Upper Arm] Pulse Oximetry Oxygen Delivery Me thod Room Air Hospitalist - H&P: Result Labs Labs: Short CBC 01/07/25 Range/Units 19:05 WBC 5.99 (4.50-11.00) K/uL Hgb 13.6 (12.0-16.0) gm/dL Hct 39.3 (33.0-51.0) % Plt Count 130 L (140-440) K/uL BMP 01/07/25 19:05 Sodium 138 Potassium 4.1 Chloride 101 Carbon Dioxide 31 BUN 18 Creatinine 1.1 Glucose 101 Calcium 9.7 Cardiac Enzymes 01/07/25 Range/Units 19:05 Troponin I 0.06 H* (0.01-0.04) ng/mL Urine 01/07/25 Range/Units 19:07 Urine Color Yellow (Yellow) Urine Appearance Clear (Clear) Urine pH 6.0 (5.0-8.5) Ur Specific [place] 1.010 (1.000-1.030) Urine Protein Negative (Negative) Urine Glucose (UA) Negative (Negative) ECG ECG interpretation date: 01/07/25 Interpretation: Sinus tachycardia. Imaging CT scan - head: Radiologist's impression: Impression: 1. Beam hardening artifact secondary to a hearing device overlying the right temporoparietal calvarium limits evaluation of adjacent structures. 2. No acute intracranial hemorrhage or mass effect within exam limitations. CT angiogram of head and neck: Radiologist's impression: FINDINGS: The origins of the great vessels from the aortic arch are patent. The origin of the right vertebral artery is patent. The origin of the left vertebral artery is patent. The common carotid arteries are patent. There is no stenosis at the origin of the right internal carotid artery by NASCET criteria. There is no stenosis at the origin of the left internal carotid artery by NASCET criteria. The rest of the cervical segments of the internal carotid arteries are patent up to their intracranial segments. The intracranial segments of the internal carotid arteries are patent. The right vertebral artery is dominant. The cervical segments of the vertebral arteries are patent. The intracranial segments of the vertebral arteries are patent. The middle cerebral arteries are normal without aneurysm or proximal occlusion identified. The anterior cerebral arteries are normal without aneurysm or proximal occlusion identified. The anterior communicating artery is well visualized and appears normal. The basilar artery is normal without aneurysm or occlusion. The posterior cerebral arteries are normal without aneurysm or proximal occlusion. There is normal opacification of major intracranial venous structures. The visualized lung apices are unremarkable. The thyroid gland is unremarkable. The soft tissues of the neck are unremarkable. There are degenerative changes in the cervical spine. IMPRESSION: Patent cervical and proximal intracranial vasculature without intracranial aneurysms.
[2025-01-07 23:58] VITALS: PULSE 63
[2025-01-08 00:12] VITALS: PULSE 63
[2025-01-08 03:00] VITALS: BP 113/57; PULSE 63; RESP 16; TEMP 36.6; O2SAT 91
--- NOTE | 2025-01-08 06:07 | PC.NURSE ---
Patient ambulates with four wheeled walker and SBA. Patient incontinent of bowel and bladdder. PIV Right AC patent. Telemetry shows NSR.
[2025-01-08 06:48] LABS: Hematocrit* 33.3 % (33.0-51.0); Hemoglobin* 11.9 gm/dL (12.0-16.0); Mean Corpuscular HGB Conc 36 gm/dL (32-36); Mean Corpuscular Hemoglobin 33 pg (26-34); Mean Corpuscular Volume 94 fL (80-100); Red Blood Count* 3.56 m/uL (4.00-5.20); White Blood Count* 4.34 K/uL (4.50-11.00)
[2025-01-08 06:50] LABS: Slide Review Reflex No
[2025-01-08 07:00] VITALS: PULSE 63; PULSE 69; RESP 16; O2SAT 95
[2025-01-08 07:03] LABS: Chloride* 103 mmol/L (96-114); Potassium* 3.7 mmol/L (3.6-5.1); Sodium* 137 mmol/L (135-149)
[2025-01-08 07:06] LABS: Anion Gap 5 mEq/L (7-15); Blood Urea Nitrogen* 16 mg/dL (7-30); Calcium* 9.1 mg/dL (8.4-10.6); Carbon Dioxide* 29 mmol/L (20-32); Cholesterol* 137 mg/dL (90-199); Creatinine* 1.0 mg/dL (0.5-1.5); Est. Creatinine Clearance* 36.50; Estimated Glomerular Filt Rate 57 ml/min; Glucose* 96 mg/dL (60-115); Triglycerides* 80 mg/dL (40-149)
[2025-01-08 07:07] LABS: HDL Cholesterol* 49 mg/dL (>=50)
[2025-01-08 08:30] VITALS: BP 109/67; PULSE 70; RESP 16; TEMP 36.5; O2SAT 95
[2025-01-08] MEDS: POTASSIUM CHLORIDE 10 MEQ CAPSULE ER PO (08:45)
[2025-01-08] MEDS: CLOPIDOGREL 75 MG TABLET PO (08:46)
[2025-01-08] MEDS: SERTRALINE 100 MG TABLET PO (08:46)
[2025-01-08] MEDS: IRBESARTAN 150 MG TABLET 75 MG PO (08:46)
[2025-01-08] MEDS: FUROSEMIDE 20 MG TABLET PO (08:46)
[2025-01-08] MEDS: ASPIRIN 81 MG TABLET EC PO (08:46)
[2025-01-08] MEDS: SODIUM CHLORIDE 0.9 % (FLUSH) 10 ML SYRINGE 5 ML IVF (09:33)
[2025-01-08] MEDS: PERFLUTREN LIPID MICROSPHERES 2 ML VIAL IVP (10:22)
[2025-01-08 11:00] VITALS: BP 124/72; PULSE 69; RESP 16; TEMP 36.1; O2SAT 94
--- NOTE | 2025-01-08 12:49 | P.DS_ITS ---
DS: Providers Provider Date Seen: 01/08/25 Date of admission: 01/07/25 21:56 Primary care physician: Gavi Cloud MD Admitting Clinician: Richard Vincent MD Consults: 01/07/25 23:58 Consult to Occupational Therapy [CONS] Routine Comment: Reason(s) for OT Consult:: Evaluate and Treat Any Restrictions?:: No Restrictions Consult to Physical Therapy [CONS] Routine Comment: Reason(s) for PT Consult:: Evaluate and Treat Any Restrictions?:: No Restrictions Attending Physician on discharge: Richard Vincent MD DS: Diagnosis Discharge Diagnosis (1) Transient cerebral ischemia: Status: Acute Problem details: - transient alexia and expressive aphasia, 1 to 1-1/2 hours in duration - [facility] Emergency Department physician consulted with [facility] where she receives her Neurology cares, neurologist recommended initiation of aspirin and clopidogrel, overnight observation, discharge if stable and if not confer with [facility] again. - in-hospital monitor with neuro checks, telemetry, echo, lipid panel in the morning, physical therapy, occupational therapy (2) Elevated troponin level not due myocardial infarction: Status: Acute Problem details: - chronic (3) Cardiomyopathy, idiopathic: Status: Acute Problem details: - followed by [facility] (4) Muscular dystrophy: Status: Acute Problem details: - Facioscapulohumeral muscular dystrophy - has a son with a similar diagnosis (5) Cochlear implant status: Status: Acute Problem details: 04/2024, on the right DS: Summary Hospital Course Hospital Course: Patient presented to the hospital with transient alexia and expressive aphasia, 1 to 1-1/2 hours in duration, TIA is suspected. CT head and CT a head and neck were done but we are not able to do a brain MRI because patient has a cochlear implant. [facility] Emergency Department physician consulted with [facility] where she receives her Neurology cares, neurologist recommended initiation of aspirin and clopidogrel, overnight observation, discharge if stable and if not confer with [facility] again. in-hospital monitor with neuro checks, telemetry, echo, lipid panel in the morning, physical therapy, occupational therapy Neurology team at [facility], Dr. Landa, who recommended an overnight observation and follow-up at their clinic so they can do a brain MRI at their facility that we were not able to do here because of the cochlear implant. t to call their clinic on Friday and take an appointment within 1-2 weeks. need to take both aspirin and Plavix as recommended by the neurologist. Aspirin is for life but Plavix is usually given for 3 weeks, pt to check with the neurologist if she need to take it more than 3 weeks. Our physical therapist/occupational therapists are recommending home health care, but until the services arranged her sons agreed to help you at home. Time Spent with Patient Time attestation: Total time spent providing and/or coordinating discharge services: Exam Narrative: Exam Narrative: Physical exam GENERAL: Comfortable, no acute distress. HEAD AND NECK: Atraumatic, normocephalic CARDIOVASCULAR: RRR. Normal S1, S2. No murmurs. RESPIRATORY: Clear to auscultation B/L. Good air entry B/L. No wheezes or rhonchi. NEUROLOGY: Alert, awake, oriented X 3. Normal speech. No focal weakness. PSYCH: Normal mood, normal affect. Const: Vital Signs, click to edit/add: Vital Signs - 24 hr 01/07/25 17:17 01/07/25 20:34 01/07/25 22:08 Temperature 96.6 F L 98.7 F 97.8 F Pulse Rate Pulse Rate [Right Pulse Oximeter] 59 L 73 59 L Respiratory Rate 18 18 16 Blood Pressure [Ri ght Arm] 143/71 H Blood Pressure [Ri ght Upper Arm] 152/75 H 147/73 H Pulse Oximetry 96 93 94 Oxygen Delivery Me thod Room Air Room Air Room Air 01/07/25 22:08 01/07/25 23:00 01/07/25 23:58 Temperature Pulse Rate Pulse Rate [Right Pulse Oximeter] 59 L 63 Respiratory Rate 16 Blood Pressure [Ri ght Arm] Blood Pressure [Ri ght Upper Arm] Pulse Oximetry Oxygen Delivery Wi thod Room Air 01/08/25 00:12 01/08/25 03:00 01/08/25 07:00 Temperature 97.8 F Pulse Rate 63 Pulse Rate [Right Pulse Oximeter] 63 Respiratory Rate 16 16 Blood Pressure [Ri ght Arm] 113/57 L Blood Pressure [Ri ght Upper Arm] Pulse Oximetry 91 95 Oxygen Delivery Wi thod Room Air Room Air 01/08/25 08:30 01/08/25 11:00 Temperature 97.7 F 97.0 F L Pulse Rate Pulse Rate [Right Pulse Oximeter] 70 69 Respiratory Rate 16 16 Blood Pressure [Ri ght Arm] 109/67 124/72 Blood Pressure [Ri t Upper Arm] Pulse Oximetry 95 94 Oxygen Delivery Me thod Room Air Room Air DS: Data Data Completed and Pending Labs on day of discharge: Labs from last 24 hours 01/08/25 01/07/25 01/07/25 06:35 20:40 19:48 WBC 4.34 L RBC 3.56 L Hgb 11.9 L Hct 33.3 MCV 94 MCH 33 MCHC 36 RDW Coeff of Karoline Plt Count 121 L Neut % (Auto) Lymph % (Auto) [place] % (Auto) Eos % (Auto) Baso % (Auto) Neut # (Auto) Lymph # (Auto) [place] # (Auto) Eos # (Auto) Baso # (Auto) Abs Immat Gran (auto) Imm/Tot Granulo (auto) Sodium 137 Potassium 3.7 Chloride 103 Carbon Dioxide 29 Anion Gap 5 L BUN 16 Creatinine 1.0 Estimated Creat Clear 36.50 Estimated GFR 57 Glucose 96 Calcium 9.1 Magnesium 1.6 Troponin I 0.07 H* Triglycerides 80 Cholesterol 137 LDL Cholesterol, Calc 72 HDL Cholesterol 49 L TSH 2.930 Urine Color Urine Appearance Urine pH Ur Specific [place] Urine Protein Urine Glucose (UA) Urine Ketones Urine Blood Urine Nitrite Urine Bilirubin Urine Urobilinogen Ur Leukocyte Esterase Urine RBC Urine WBC Ur Squamous Epith Cells Urine Bacteria SARS-CoV-2 (PCR) Influenza Type A (PCR) Influenza Type B (PCR) RSV (PCR) Lab Acknowledgement Test Added POC Creatinine POC Troponin I 0.06 H 01/07/25 01/07/25 01/07/25 19:07 19:05 18:02 WBC 5.99 RBC 4.13 Hgb 13.6 Hct 39.3 MCV 95 MCH 33 MCHC 35 RDW Coeff of Karoline 12.8 Plt Count 130 L Neut % (Auto) 56.4 Lymph % (Auto) 31.9 [place] % (Auto) 7.5 Eos % (Auto) 3.5 Baso % (Auto) 0.7 Neut # (Auto) 3.38 Lymph # (Auto) 1.91 [place] # (Auto) 0.40 Eos # (Auto) 0.21 Baso # (Auto) 0.04 Abs Immat Gran (auto) 0.00 Imm/Tot Granulo (auto) 0.0 Sodium 138 Potassium 4.1 Chloride 101 Carbon Dioxide 31 Anion Gap 6 L BUN 18 Creatinine 1.1 Estimated Creat Clear Estimated GFR 50 Glucose 101 Calcium 9.7 Magnesium 1.6 Troponin I 0.06 H* Triglycerides Cholesterol LDL Cholesterol, Calc HDL Cholesterol TSH Urine Color Yellow Urine Appearance Clear Urine pH 6.0 Ur Specific [place] 1.010 Urine Protein Negative Urine Glucose (UA) Negative Urine Ketones Negative Urine Blood Negative Urine Nitrite Negative Urine Bilirubin Negative Urine Urobilinogen 0.2 Ur Leukocyte Esterase Negative Urine RBC 0-2 Urine WBC 0-2 Ur Squamous Epith Cells None Urine Bacteria None SARS-CoV-2 (PCR) Negative SARS-CoV-2 Influenza Type A (PCR) Negative PCR FLU A Influenza Type B (PCR) Negative PCR FLU B RSV (PCR) Negative PCR RSV Lab Acknowledgement POC Creatinine 1.3 POC Troponin I 0.06 H Discharge Plan Discharge Disposition: Home w/ Parent or Adult Date of Admission: 01/07/25 21:56 Attending Provider on Discharge: Anna Rebolledo Primary Care Provider: Gavi Cloud Condition: Stable Anticipated Discharge Date/Time: 01/08/25 12:35 Discharge Medications: New clopidogrel [Plavix] 75 mg tablet 75 mg PO DAILY Qty: 20 2RF Continued carvedilol 12.5 mg tablet 12.5 mg PO BID furosemide 20 mg tablet 20 mg PO DAILY betaxolol 0.5 % drops 1 drp ophthalmic (eye-right) BID irbesartan 75 mg tablet 75 mg PO DAILY sertraline 50 mg tablet 100 mg PO DAILY imatinib [Gleevec] 400 mg tablet 400 mg PO DAILY potassium chloride [Klor-Con M10] 10 mEq tablet,ER particles/crystals 10 meq PO DAILY spironolactone 25 mg tablet 25 mg PO QAM rosuvastatin 5 mg tablet 5 mg PO DAILY tafluprost (PF) 0.0015 % dropperette 1 drp ophthalmic (eye-right) QPM Actemra 400 mg/20 mL (20 mg/mL) solution 600 mg IV Q28D Asmanex Twisthaler 220 mcg/ actuation (30) aerosol powdr breath activated 1 inh INHALATION HS aspirin 81 mg tablet 81 mg PO DAILY cholecalciferol (vitamin D3) 25 mcg (1,000 unit) capsule 25 mcg PO DAILY brimonidine 0.2 % drops 1 drp ophthalmic (eye-right) BID Discharge Orders: Discharge Order (Routine); Ordered 01/08/25 Ordered By: Anna Rebolledo Patient Education: Clopidogrel (By mouth), Transient Ischemic Attack (DC) Additional Instructions: -you have been admitted to the hospital due to suspicion of having a transient ischemic attack (TIA). -we contacted Neurology team at [facility], Dr. Landa, who recommended an overnight observation and follow-up at their clinic so they can do a brain MRI at their facility that we were not able to do here because of the cochlear implant. Please call their clinic on Friday and take an appointment within 1-2 weeks. -you need to take both aspirin and Plavix as recommended by the neurologist. Aspirin is for life but Plavix is usually given for 3 weeks, please check with the neurologist when you meet them if you need to take it more than 3 weeks. -your preliminary echo at our facility showed left ventricular function reduction which is something that is well known as you have cardiomyopathy. Final report is still pending, please follow-up on the final report on Friday. -our physical therapist/occupational therapists are recommending home health care which we will order for you, but until the services are arranged your sons agreed to help you at home. Activity Level: Activity as Tolerated Discharge Diet: Heart Healthy (2 gm sodium, low fat) Follow Up Appointments: Gavi Cloud MD [Primary Care Provider, Family Practice] Referral Note: Follow-up in 1 week Forms: [employer] Info Instructions
--- NOTE | 2025-01-08 14:30 | PC.NURSE ---
Discharge: Patient pleasant and cooperative, A&O. VSS, afebrile. SpO2 maintained above 90% on RA. Denies pain this shift. IV removed with tip intact. Discharge instructions provided, all questions answered. D/C to home via wheelchair.
--- NOTE | 2025-01-10 14:06 | PC.SOCIAL ---
Discharge planning: Per MD order for home health PT/OT, called pt at home, who had been discharged over the weekend to discuss home care referral. Pt stated she had home care before but can not remember who it was provided through. Pt was not interested in renal social worker sending her a list of home care agencies to decide which one to contact. Pt requested renal social worker arrange this with an agency who could start soon and was contracted with her insurance. Pt was agreeable to renal social worker contacting [facility], who serves her area. Called and secure emailed referral to [facility] and awaiting decision from agency on whether they can accept referral. restuarant crew worker to follow up as needed.
== END 2025-01-08 14:15 | disposition home or self-care (01) ==
LOC: ED 21:26 → MEDSURG 21:56
PROVIDERS: Admitting Provider Internal Medicine; Emergency Provider Student in an Organized Health Care Education/Training Program; PCP Family Medicine; Visit Provider Internal Medicine
DX: G45.9 Transient cerebral ischemic attack, unspecified (principal); R79.89 Other specified abnormal findings of blood chemistry; I42.9 Cardiomyopathy, unspecified; G71.02 Facioscapulohumeral muscular dystrophy; Z96.21 Cochlear implant status
CPT/HCPCS: 36415; 70450; 70496; 70498; 80048; 80061; 81001; 82565; 83735; 84443; 84484; 85025; 85027; 87631; 93005; 93306; 96374; 97161; 97166; 97530; 97535; 99285; A9270; G0378; Q9957; Q9967

== ENCOUNTER 2025-03-09 12:55 | Emergency (ER) | payer MEDICARE, BC, SELFPAY ==
--- OUTSIDE RECORDS SUMMARY | 2023-04-02 10:34 | XMS_ITS | Continuity of Care Document ---
Author Organization [facility] maykel Address [address] [place] [address] Phone Care Team Providers Care Roller Hand Name Role Phone Violette Ashley DNP Unavailable Unavailab le Allergies, Adverse Reactions, Alerts Substance Reaction Status Criticality cortisone Active No Information Sulfa (Sulfonamide Antibiotics) Active No Information Medications Medication Instructions Dosage Effective Dates (start - stop) Status Comments Medrol (Stanley) 4 mg tablets in a dose pack take by Oral route as directed on pack Not Available - Active Fish Oil 1,000 mg (120 mg-180 mg) capsule 1,000 capsule(s) take 2 PO daily - Active aspirin 81 mg chewable tablet chew 1 tablet by oral route every day 81 MG - Active carvedilol 12.5 mg tablet take 1 tablet by oral route 2 times every day with food 12.5 MG - Active furosemide 20 mg tablet take 1 tablet by oral route every day 20 MG - Active Gleevec 400 mg tablet take 1 tablet by oral route every day with meal(s) and a large glass of water 400 MG - Active irbesartan 75 mg tablet take 0.5 tablet by oral route every day 37.5 MG - Active Effer-K 10 mEq effervescent tablet - Active Crestor 5 mg tablet take 1 tablet by oral route every day 5 MG - Active spironolactone 25 mg tablet take 1 tablet by oral route every day 25 MG - Active Vitamin D3 1,000 unit tablet take 1 tablet by oral route every day 1 tablet - Active Celebrex 200 mg capsule take 1 capsule by oral route every day as needed 200 MG - No Longer Active Celebrex 200 mg capsule take 1 capsule by oral route every day as needed 200 MG - No Longer Active diclofenac 1 % topical gel apply (2G) by topical route 3 times every day to the affected area(s) as needed for OA 2 G - No Longer Active Procedures Procedure Date OFFICE/OUTPATIENT VISIT, EST OFFICE/OUTPATIENT VISIT, EST OFFICE/OUTPATIENT VISIT, EST Drug Urine Toxology OFFICE/OUTPATIENT VISIT, EST OFFICE/OUTPATIENT VISIT, EST RF Lumb/Sacral Single Level BILATERAL De RF Lumb/Sacral 2nd Level BILATERAL FLUOROGUIDE FOR SPINE INJECTION 017 Facet Jt Inj Lumbar LEFT Facet Inj Lumbar 2nd Level LEFT 017 FLUOROGUIDE FOR SPINE INJECTION 017 Facet Jt Inj Lumb BILATERAL Facet Inj Lumbar 2nd Level BILATERAL Feb FLUOROGUIDE FOR SPINE INJECTION 017 Facet Jt Inj Lumbar LEFT Facet Inj Lumbar 2nd Level LEFT 017 FLUOROGUIDE FOR SPINE INJECTION 017 OFFICE/OUTPATIENT VISIT, NEW Advance Directives Directive Yes / No Effective Date File Name No Information Encounters Encounter Description Practice Location Reason(s) For Visit Diagnoses Date Provider Providers Copied on Encounter [facility], [address] [place], [place], [id number] , [place] tel:[phone] [facility] No Information 4 Dion Oakes. [address], [place], [place], [id number], [place]. tel:[phone] OFFICE/OUTPA TIENT VISIT, EST [facility], [address] [place], [place], [id number] , [place] tel:[phone] [facility] [place] Widespread pain (chief complaint) Chronic pain syndromePain in left shoulderOther equipment operator intermodal yard (current) drug therapyUnilatera l primary osteoarthritis, right knee 4 Angy Eastman. [address], [place], [place], [id number], [place]. tel:[phone] Referring Provider: Rachid Schaeffer, [address] [place] [address] [place], [address] . tel:[phone] OFFICE/OUTPA TIENT VISIT, [facility], [address] [place] [address], [id number] , [place] [phone] [facility] [place] low back pain (chief complaint) Pain in left kneePain in right kneePain in thoracic spineOther intervertebral disc degeneration, lumbar regionLow back pain 8 Geovani Tiffanie. [address] [place] [address], [id number], [place]. tel:[phone] Referring Provider: Rachid Schaeffer, [address] [place] [address] [place], [address] . tel:[phone] OFFICE/OUTPA TIENT VISIT, [facility], [address] [place] [address], [id number] , [place] tel:[phone] [facility] [place] low back pain (chief complaint) Pain in left kneePain in right kneeSpondylosis w/o myelopathy or radiculopathy, lumbar regionLow back pain 8 Geovani Tiffanie. [address] [place] [address], [id number], [place]. tel:[phone] Referring Provider: Rachid Schaeffer, [address] [place] [address] [place], [address] . tel:[phone] OFFICE/OUTPA TIENT VISIT, [facility], [address] [place] [address], [id number] , [place] [phone] [facility] [place] low back pain (chief complaint) Pain in left kneePain in right kneeSpondylosis w/o myelopathy or radiculopathy, lumbar regionOther intervertebral disc degeneration, lumbar regionLow back painPain in thoracic spine 8 Geovani Tiffanie. [address] [place] [address], [id number], [place]. tel:[phone] Referring Provider: Rachid Schaeffer, [address] [place], [place] [address], [address] . tel:[phone] OFFICE/OUTPA TIENT VISIT, EST [facility], [address] [place] [address], [id number] , [place] tel: [phone] [facility] [place] low back pain (chief complaint) Low back painOther intervertebral disc degeneration, lumbar regionPain in left kneePain in right kneeSpondylosis w/o myelopathy or radiculopathy, lumbar regionPain in left hand Fe- 8 Geovani Tiffanie. [address] [place] [address], [id number], [place]. tel:[phone] Referring Provider: Rachid Schaeffer, [address] [place] [address] [place], [address] . tel:[phone] [facility], [address] [place] [address], [id number] , [place] tel: [phone] [facility] [place] Spondylosis w/o myelopathy or radiculopathy, lumbar region 7 Laurence Ansari. [address] [place] [address], [id number], [place]. tel:[phone] Referring Provider: Rachid Schaeffer, [address] [place], [place] [address], [address] . tel:[phone] [facility], [address] [place] [address], [id number] , [place] tel: [phone] [facility] [place] Spondylosis w/o myelopathy or radiculopathy, lumbar region 7 Geovani Tiffanie. [address] [place] [address], [id number], [place]. tel:[phone] [facility], [address] [place] [address], [id number] , [place] tel: [phone] [facility] [place] Spondylosis w/o myelopathy or radiculopathy, lumbar region 7 Dang Coty. [address] [place] [address], [id number], [place]. tel:[phone] Referring Provider: Rachid Schaeffer, [address] [place] [address] [place], [address] . tel:[phone] [facility], [address] [place] [address], [id number] , [place] tel: [phone] [facility] [place] Spondylosis w/o myelopathy or radiculopathy, lumbar region 7 Geovani Tiffanie. [address] [place] [address], [id number], [place]. tel:[phone] [facility], [address] [place] [address], [id number] , [place] tel: [phone] [facility] [place] Spondylosis w/o myelopathy or radiculopathy, lumbar region 7 Geovani Tiffanie. [address] [place] [address], [id number], [place]. tel:[phone] [facility], [address] [place] [address], [id number] , [place] tel: [phone] [facility] [place] Spondylosis w/o myelopathy or radiculopathy, lumbar region 7 Dang Coty. [address] [place] [address], [id number], [place]. tel:[phone] Referring Provider: Rachid Schaeffer, [address] [place], [place] [address], [address] . tel:[phone] [facility], [address] [place] [address], [id number] , [place] tel:[phone] [facility] [place] Spondylosis w/o myelopathy or radiculopathy, lumbar region 7 Dang Coty. [address] [place] [address], [id number], [place]. tel:[phone] Referring Provider: Rachid Schaeffer, [address] [place] [address] [place], [address] . tel:[phone] OFFICE/OUTPA TIENT VISIT, NEW [facility], [address] [place], [place], [id number] , [place] tel:[phone] [facility] [place] low back pain (chief complaint) Low back painPain in right kneePain in left kneeOther intervertebral disc degeneration, lumbar regionSpondylosi s w/o myelopathy or radiculopathy, lumbar region 7 Geovani Tiffanie. [address] [place], [place], [id number], [place]. tel:[phone] Referring Provider: Rachid Schaeffer, [address] [place], [address] . tel:[phone] Family History Family Member Type Diagnosis Age At Onset Father Problem (finding) back problems Payers Payer name Insurance type Covered republican ID Мария puentes(s) Medicare MB [id number] Social History Type Description Quantity Date Captured Comments Alcohol Use Details Unknown Caffeine Use Details Unknown Tobacco Use Status No Information Smoking Status No Information Sex Female Chief Complaint And Reason For Visit No Information Reason For Referral Reason For Referral No Information Plan Of Treatment Date Type Action Status Goal Hepatitis C screening. Due o n due Goal Medication Reconciliation. D ue on due Goal Height. Due on d ue Goal Update Social History. Due o n due Goal Weight. Due on d ue Goal Zoster vaccine (1st). Due on due Goal Review Allergy List. Due on due Goal Unhealthy drug use screening . Due on due Goal PHQ-9. Due on du e Goal Tobacco Use. Due on due Goal Unhealthy drug use screening . Due on due Goal Update Social History. Due o n due Goal Tobacco Use. Due on due Goal Weight. Due on d ue Goal PHQ-9. Due on du e Goal Height. Due on d ue Goal Hepatitis C screening. Due o n due Goal Review Allergy List. Due on due Goal Medication Reconciliation. D ue on due Goal Zoster vaccine (1st). Due on due Goal Lifestyle education regardin g diet completed Referral Ordered: MRI LUMBAR SPINE W/O DYE Bilateral spine, lumbar [id number] Ordered: MRI THORACIC SPINE W/O DYE Bilateral spine, thoracic [id number] Ordered: [facility] (related to Pain in left hand) [id number] Ordered: [facility] (related to Pain in right hand) [id number] Referred To: [facility] [address] [place] [phone] Ordered: Referrals: [facility]. Location: [facility]. Evaluate and treat [id number] Order: Lab OrderCOMPLIANCE DRUG ANALYSIS, URINE, WITH MED REPORT ([id number]), Ordered on: [id number] History Of Present Illness Encounter Date Complaint History Of Prese nt Illness Comments: Griselda is a 78 y/o female who presents in-clinic today for initial consultation in the setting of chronic widespread pain r/t arthritis and muscular dystrophy, most prominent in the shoulders, hips, wrists, and R knee. Self-referred. She is accompanied by her son, John, today who also contributes to her discussion of care. Shares the pain gradually began months ago. Out of all her areas of pain, the L shoulder and R knee is the most bothersome. Pain is worse with movement and improved with nothing.Have tried PT, Toradol injections for the R shoulder (beneficial), and cortisone injections (varying degrees of relief). All injections have been completed at [facility]. She states she finds more relief from injections for the R shoulder rather than the L shoulder. Notes the cortisone injections had caused an allergic reaction.Currently managed on Flexeril, Meloxicam, and [place] 5-325mg with varying degrees of benefit. She states she finds significant relief from Medrol Stanley 4mg. Inquires if she could be on a Prednisone stanley long-term as she knows some friends who have been prescribed it for an extended amount of time. Despite her reporting minimal benefit with the Flexeril, her son believes the medication has allowed her to move around more. Was also recently prescribed Zoloft for her depression.Patient is interested in pain management through [facility]. Willing to pursue BRIAN injections for the R knee as previous cortisone injections caused an allergic reaction (heart palpitations and flushing of the face). Understands there's limited options for the L shoulder pain as most procedures involves having cortisone injected. No other concerns today. Widespread pain Severity level i s 8. Duration: ongoing. Location of the pain is left shoulder and right knee. It occurs persistently. The problem is worsening. Symptom is aggravated by bending, walking upstairs, walking downstairs, running, sitting, standing, walking, supine, prolonged positioning, housework and movement. Pertinent negatives include diarrhea, fatigue, fever and incontinence (urinary). low back pain Severity level i s 8. Duration: chronic. The problem is stable. It occurs persistently. Location of pain is middle back, lower back and gluteal area.The patient describes the pain as an ache and sharp. Symptoms are aggravated by ascending stairs, bending, descending stairs, lifting, standing, twisting, walking and prolonged positioning. Symptoms are relieved by lying down, over the counter medication, pain meds/drugs, rest, sitting and changing positions. low back pain (comments) Patient is here for a f/u. Has #185 [place] remaining - surplus. Medications are effective at relieving pain without SE. Griselda had 75% pain relief from the RF in February. She states she still has pain relief from it but will get pain when laying on one side too long in bed. She states all of here pain is localized to her mid to lower back, no pain radiates down her leg. She occasionally will do exercises for pain relief. She is not interested in PT orders at the moment but plans to do it in the future if she wants to qualify for the SCS. No other concerns today low back pain Severity level i s 7. Duration: chronic. The problem is stable. It occurs persistently. Location of pain is lower back. Symptoms are aggravated by ascending stairs, bending, descending stairs, lifting, running, standing, twisting, walking and exertion. Symptoms are relieved by lying down, over the counter medication, rest and sitting. low back pain (comments) Patient is here for a f/u. Has #112 [place] remaining - on track. Medications are effective at relieving pain without SE. Griselda's pain has been stable since last visit. She has not been taking her pain medication because she wanted to learn more about her track sheet. She is curious whether or not melatonin is worth taking for sleep. She plans to get her MRI's done as soon as possible. No other concerns today low back pain (comments) Patient is here for a f/u. Has #0 medication remaining - on track. Medications are effective at relieving pain without SE. Griselda C/o sharp pain down her leg. She states that the RF provides some relief. She has a lot of pain down her back and is unsure if the RF. She met with her knee specialist and got a injection which provided 2 days of pain relief. She met with a hand surgeon and is waiting to move forward with surgery. She was recently diagnosed with musclular dystrophy. She is hoping to find another treatment for her pain. No other concerns today. low back pain Severity level i s 9. Duration: chronic. The problem is worsening. It occurs persistently. Location of pain is middle back, lower back and BL Knees.The patient describes the pain as sharp. Symptoms are aggravated by bending, changing positions, descending stairs, sitting, standing, twisting, walking and movement. Symptoms are relieved by lying down and sitting. low back pain Severity level i s 7. Duration: chronic. The problem is stable. It occurs intermittently. Location of pain is middle back and lower back.The patient describes the pain as an ache and sharp. Symptoms are aggravated by ascending stairs, descending stairs, standing, twisting and walking. Symptoms are relieved by lying down and sitting. low back pain (comments) Mindy nuñez s here for initial follow up. She has RFA done in her low back. S/p BL L3, L4, L5 provided 75% pain relief. She realized now that her pain in her mid-back is still causing her a lot of pain, states it is just below her bra line. All of her pain is in her back, very minimal radicular pain in the past. She continues to need a cane to walk. C/o a lot of L hand tenderness. Continues to have severe BL knee pain. The methocarbamol helped her pain. She has not started the gabapentin as she lost the instructions. Ibuprofen helps a little with her thoracic back pain but is willing to try something else. She will be starting some Pool PT. No other concerns today. low back pain Onset: gradual w ithout injury. Severity level is 8. Duration: chronic. The problem is fluctuating. It occurs persistently. Location of pain is lower back.The patient describes the pain as an ache. Symptoms are aggravated by ascending stairs, descending stairs, standing, twisting and walking. Symptoms are relieved by lying down and sitting. low back pain (comments) Yoana is here for initial consult regarding her low back pain. Referred by Dr. Sandoval, her PCP. Chronic back pain for many years with worsening pain in the last 2 years that has affected her daily activity. She reports the pain is the worst with walking. She feels good when she is sitting. Was doing some pool exercises but has stopped. States she is not good about doing exercises as most of the time it is difficult for her to walk. Also has pain in both knees at times. Reports some tingling and weird sensation in the L knee.Treatments: PTMassage therapyChiropractorMedications:Tylenol-no reliefNSAIDS-no reliefNerve(Gabapentin)-not triedTopicals-no reliefMuscle relaxant-not tried. Irugnh-klgreqoj-hb relief, Medical records-[facility], Functional Status Date Functional Assessmen t No Information Instructions Date Instruction Additional Infor qing Lifestyle education regarding di et Related to Body mass index [BMI] 40.0-44.9, adult Assessments Type Assessment Date No Information Patient Care Teams Name Effective Dates (start - stop) Status Members No Information
--- OUTSIDE RECORDS SUMMARY | 2024-12-08 13:00 | XMS_ITS | Encounter Summary ---
Author Organization [place] Address [facility] [place] [address] Care Team Providers Care Underwear Hemmer Name Role Phone Hector Goode MD Unavailable John Cancino MD Unavailable [phone] Carl Farah MD Unavailable Unavailable Hector Goode MD Unavailable Rivas Delcid MD Unavailable Gavi Cloud MD Primary Care Provider Gavi Cloud MD Unavailable [phone] Blue Mensah MD Unavailable Un available Jasmin Maradiaga PA-C Unavailable Gavi Cloud MD Unavailable [phone] Jasmin Maradiaga PA-C Unavailable Reason for Visit * ReasonCommentsWellness VisitAWVBreathing ProblemSOB and fatigue, feeling exhausted, dyspnea on exertion, started 1 month ago, her actuarial associate did not think this was heart related Encounter Details DateTypeDepartmentCare Team (Latest Contact Info)Qxqquzuwerb20/01/2025 2:00 PM CDTOffice Visit [facility] [address] [place] [address] [address] [place] [id number] Jasmin Maradiaga PA-C [address] [place] [id number] Medicare annual wellness visit, subsequent (Primary Dx); Other fatigue; Shortness of breath; Facioscapulohumeral muscular dystrophy (H); PMR (polymyalgia rheumatica) Social History Tobacco UseTypesPacks/DayYears UsedDateSmoking Tobacco: NeverPassive Smoke Exposure: NeverSmokeless Tobacco: NeverAlcohol UseStandard Drinks/WeekCommentsNo 0 (1 standard drink = 0.6 oz pure alcohol)PHQ-2AnswerDate RecordedPHQ-2 Score3 02/23/2025dolescent EducationAnswerDate RecordedGetting School Help NeededNot on file12/05/2022Food InsecurityAnswerDate RecordedWithin the past 12 months, did you worry that your food would run out before you got money to buy more?No 02/02/2024Within the past 12 months, did the food you bought just not last and you didn???t have money to getmore?No02/02/2024Housing StabilityAnswerDate RecordedDo you have housing? (Housing is defined as stable permanent housing and does not include staying outside in a car, in a tent, in an abandoned building, in an overnight [place] [facility], or couch-surfing.)Yes02/02/2024re you worried about losing your housing?No02/02/2024Financial Resource StrainAnswerDate Recorded Within the past 12 months, have you or your family members you live with been unable to get utilities (heat, electricity) when it was really needed?No 02/02/2024Transportation NeedsAnswerDate RecordedWithin the past 12 months, has lack of transportation kept you from medical appointments, getting your medicines, non-medical meetings or appointments, work, or from getting things that you need?No02/02/2024Interpersonal SafetyAnswerDate RecordedDo you feel physically and emotionally safe where you currently live?Yes02/02/2024Within the past 12 months, have you been hit, slapped, kicked or otherwise physically hurt by someone?No02/02/2024Within the past 12 months, have you been humiliated or emotionally abused in other ways by your partner or ex-partner?No02/02/2024 CommentsNoSex and Gender InformationValueDate RecordedSex Assigned at BirthNot on fileLegal QrkWejsub58/04/2012 2:58 AM CSTGender IdentityNot on file Sexual OrientationNot on filedocumented as of this encounter Last Filed Vital Signs Vital SignReadingTime TakenCommentsBlood Jgnysouy792/7210 2:20 PM CDT Ydqna822112/08/2024 2:20 PM BRWUclbebpbebo10.6 ??C (97.8 ??F)12/08/2024 2:20 PM CDTRespiratory Rate--Oxygen Fwlbycgbwd73%12/08/2024 2:20 PM CDTInhaled Oxygen Concentration--Soqnti694.9 kg (229 lb)12/08/2024 2:20 PM CHMEksfxz592.3 cm (5' 3.5)12/08/2024 2:20 PM CDTBody Mass Index39.9312/08/2024 2:20 PM CDTdocumented in this encounter Progress Notes * Jasmin Maradiaga PA-C - 12/08/2024 2:00 PM CDT Griselda Lai is a 79 year old female who presents for Medicare Annual Wellness Visit. Current providers caring for this patient include: Patient Care Team: Gavi Cloud MD as PCP - General (Family Medicine) Hector Goode MD as (Neurology) John Cancino MD as MD (Family Medicine - Sports Medicine) Carl Farah MD as Assigned Heart and Vascular Provider Hector Goode MD as Assigned Neuroscience Provider Rivas Delcid MD as Assigned Surgical Provider Gavi Cloud MD as Assigned PCP Complete Medical and Social history reviewed with patient, outlined below. Patient Active Problem List Diagnosis Dilated cardiomyopathy (H) Morbid obesity (H) Hypersomnia with sleep apnea Rosacea Lumbago Transient cerebral ischemia Chronic myeloid leukemia (H) Secondary cardiomyopathy (H) Other specified glaucoma Facioscapulohumeral muscular dystrophy (H) Mixed hyperlipidemia LBBB (left bundle branch block) Congestive heart failure (H) Myalgia and myositis Incontinence of feces with fecal urgency CKD (chronic kidney disease) stage 3, GFR 30-59 ml/min (H) Pain of hand Obstructive sleep apnea syndrome History of mastoidectomy Gastroesophageal reflux disease Mild persistent asthma without complication PMR (polymyalgia rheumatica) Class 2 severe obesity due to excess calories with serious comorbidity in adult History of primary malignant neoplasm of 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, unspecified hearing status on contralateral side GCA (giant cell arteritis) (H) Central sleep apnea History of transient ischemic attack (TIA) Past Medical History: Diagnosis Date Cardiomyopathy (H) idiopathic Cholecystitis 02/01/2024 Chronic myeloid leukemia in remission (H) 04/25/2002 Dr Bustillo, on gleevec Chronic restrictive lung disease possibly related to muscular dystrophy Congestive heart failure, unspecified Depressive disorder, not elsewhere classified 10/04/2002 MCCLAIN (dyspnea on exertion) Fatty liver noted on CT scan Hyperlipidemia Irritable bowel syndrome LBBB (left bundle branch block) halfway (current) use of anticoagulants 01/31/2004 off coumadin [...] (BMI 35.0-39.9 without comorbidity) PMR (polymyalgia rheumatica) no known history of temporal arteritis/giant cell [...] Past Surgical History: Procedure Laterality Date ANGIOGRAM 03/10/1995 normal coronaries, EF 50-55% BLEPHAROPLASTY BILATERAL 02/24/2012 Procedure: BLEPHAROPLASTY BILATERAL; BILATERAL UPPER LID BLEPHAROPLASTY; Surgeon: Estrada Moore MD; Location: EC COCHLEAR IMPLANT Right 04/2024 COLONOSCOPY N/A 08/06/2016 Procedure: COLONOSCOPY; COLONOSCOPY ; Surgeon: Beatriz Velasquez MD; Location: GI CYSTOSCOPY 12/08/2005 bladder cancer (multiple surveillance) DEBRIDE MASTOID CAVITY,SIMPLE x 3 ENDOSCOPIC RETROGRADE CHOLANGIOPANCREATOGRAM COMPLEX N/A 02/02/2024 Procedure: Endoscopic retrograde cholangiopancreatogram complex, Stone Removal, Sphincterotomy, Stent Insertion; Surgeon: David Barba MD; Location: OR KNEE SURGERY R arthroscopic LAPAROSCOPIC CHOLECYSTECTOMY N/A 02/02/2024 Procedure: CHOLECYSTECTOMY, LAPAROSCOPIC; Surgeon: Rivas Delcid MD; Location: OR REMOVAL OF BREAST LESION benign, age 17 [facility] IMPLANT COCHLEAR DEVICE Right 03/10/2008 BA[facility] COLONOSCOPY THRU STOMA, DIAGNOSTIC 04/10/2000 normal [facility]HC COLONOSCOPY THRU STOMA, DIAGNOSTIC 01/08/2007 Dr Lizama Family History Problem Relation Age of Onset Arthritis Mother Cerebrovascular Disease Mother Brain anuerysm- Arthritis Father alive Heart Disease Father bypass-alive Lipids Father hyperlipidemia-alive Deep Vein Thrombosis Maternal Grandmother No Known Problems Other Prostate Cancer No family hx of Social History Tobacco Use Smoking status: Never Passive exposure: Never Smokeless tobacco: Never Substance Use Topics Alcohol use: No Alcohol/week: 0.0 standard drinks of alcohol Diet: regular, low salt Physical Activity: generally inactive Depression Screen: Over the past 2 weeks, patient has felt down, depressed, or hopeless: No Over the past 2 weeks, patient has felt little interest or pleasure in doing things: No Functional ability/Safety screen: Up and go test (able to get up and walk longer than 30 seconds): Passed, walks with walker Patient needs assistance with: nothing Patient's home has the following possible safety concerns: none identified Patient has concerns about her hearing: yes, cochlear implant Cognitive Screen Patient repeats three objects (ball, flag, tree) Clock drawing test: NORMAL Recalls three objects after 3 minutes (ball,flag,tree): recalls 2 objects (2 points) Physical Exam: BP 118/72 (BP Location: Right arm, Patient Position: Sitting, Cuff Size: Adult Large) Pulse 81 Temp 97.8 ??F (36.6 ??C) (Temporal) Ht 1.613 m (5' 3.5) Wt 103.9 kg (229 lb) SpO2 95% BMI 39.93 kg/m?? Body mass index is 39.93 kg/m??. Health Maintenance Topic Date Due HF ACTION PLAN Never done MICROALBUMIN Never done RSV VACCINE (1 - 1-dose 75+ series) Never done PHQ-9 10/29/2023 ASTHMA CONTROL TEST 12/13/2023 MEDICARE ANNUAL WELLNESS VISIT 04/30/2024 ASTHMA ACTION PLAN 06/12/2024 COVID-19 VACCINE ( season) 2024 INFLUENZA VACCINE (1) 09/06/2025 (Originally 11/08/2024) ZOSTER VACCINE (1 of 2) 12/08/2025 (Originally 04/23/2007) DTAP/TDAP/TD VACCINE (1 - Tdap) 12/08/2025 (Originally 07/04/2009) CBC 02/08/2025 ALT 02/15/2025 HEMOGLOBIN 04/14/2025 BMP 05/29/2025 MAMMO SCREENING 06/10/2025 LIPID 11/29/2025 FALL RISK ASSESSMENT 12/08/2025 DIABETES SCREENING 11/30/2027 ADVANCE CARE PLANNING 11/09/2029 DEXA 12/22/2035 TSH W/FREE T4 REFLEX Completed DEPRESSION ACTION PLAN Completed PNEUMOCOCCAL VACCINE 50+ YEARS Completed URINALYSIS Completed HPV VACCINE (No Doses Required) Completed MENINGITIS VACCINE Aged Out COLORECTAL CANCER SCREENING Discontinued GENERAL APPEARANCE: healthy, alert and no distress PSYCH: Affect normal/bright. Mentation within normal limits. EYES: conjunctiva clear HENT: ear canals and TM's normal. Nose and mouth without ulcers, erythema or lesions NECK: supple, nontender, no lymphadenopathy RESP: lungs clear to auscultation - no rales, rhonchi or wheezes CV: regular rates and rhythm, normal S1 S2, no murmur noted ABDOMEN: soft, nontender, no HSM or masses and bowel sounds normal SKIN: no suspicious lesions or rashes End of Life Planning: Patient currently has an advanced directive: Yes. Practitioner is supportive of decision. Education/Counseling: Based on review of the above information, the following items were addressed: Obesity - appropriate counseling on diet, exercise, etc. Appropriate preventive services were discussed with this patient, including applicable screening asappropriate for cardiovascular disease, diabetes, osteopenia/osteoporosis, and glaucoma. As appropriate for age/gender, discussed screening for colorectal cancer, prostate cancer, breast cancer, and cervical cancer. Checklist reviewing preventive services available has been given to the patient. Jasmin Maradiaga PA-C 12/08/2024 * Jasmin Maradiaga PA-C - 12/08/2024 2:00 PM CDT CC: SOB, fatigue, needing new walker History: Shortness of breath, fatigue: For the past 3 weeks, pt has been noticing more fatigue and shortness of breath. Sleeps 10-11 hours/night and still feels tired. Uses CPAP for DACIA and compliant - just had confirmed this past summer. Diarrhea: Prone to diarrhea. Can be urgent/incontinence at times, but in the past has done better with regular metamucil, which she has recently started using this again. Did see [facility] in the past year for abdominal pain and had cholecystectomy 04/2024. She is confident she has had this at times when she wasnot taking sertraline. PMR: [facility] on [address] Does Actemra infusions every 28 days. This was helping, but now seems like it helping less. Facioscapulohumeral muscular dystrophy (H): Hasn't seen neurology in over 1 year. Didn't seem like there was any other options to help with hersymptoms. She is needing walker to use at home as previous welding broke on seat. This works well for her to safely navigate home, and allows her to get around despite symptoms of muscular dystrophy. PMH, MEDICATIONS, ALLERGIES, SOCIAL AND FAMILY HISTORY in [facility] and reviewed by me personally. ROS negative other than the symptoms noted above in the HPI. Examination BP 118/72 (BP Location: Right arm, Patient Position: Sitting, Cuff Size: Adult Large) Pulse 81 Temp 97.8 ??F (36.6 ??C) (Temporal) Ht 1.613 m (5' 3.5) Wt 103.9 kg (229 lb) SpO2 95% BMI 39.93 kg/m?? Constitutional: Sitting comfortably, in no acute distress. Vital signs noted Neck: no adenopathy, trachea midline and normal to palpation, thyroid normal to palpation Cardiovascular: regular rate and rhythm, no murmurs, clicks, or gallops Respiratory: normal respiratory rate and rhythm, lungs clear to auscultation SKIN: No jaundice/pallor/rash. Psychiatric: mentation appears normal and affect normal/bright A/P ICD-10-CM 1. Medicare annual wellness visit, subsequent Z00.00 ANNUAL WELLNESS VISIT (AWV), SUBSEQUENT (MEDICARE) 2. Other fatigue R53.83 VENOUS COLLECTION Hemogram Platelet (BFP) TSH WITH FREE T4 REFLEX ([facility]) FERRITIN ([facility]) VITAMIN B12 ([facility]) 3. Shortness of breath R06.02 VENOUS COLLECTION Hemogram Platelet (BFP) TSH WITH FREE T4 REFLEX ([facility]) FERRITIN ([facility]) VITAMIN B12 ([facility]) 4. Facioscapulohumeral muscular dystrophy (H) G71.02 Walker Order for DME - ONLY FOR DME 5. PMR (polymyalgia rheumatica) M35.3 Walker Order for DME - ONLY FOR DME DISCUSSION: Shortness of breath, fatigue: Given several weeks of fatigue SOB, considered cardiac cause, but just saw cardiology earlier todayand they reassured her this was not cardiac cause. Recommended lab work up with CBC, TSH, ferritin,B12 (just had BMP through cardiology). If lab work-up negative, could do trial of increased dose of Asmanex. Otherwise, could consider trial of increase sertraline. Will call with results/next steps. *Called and informed pt of lab results. Adding vitamin b12 supplement 1000 mcg daily. Also doing trial of 2 puffs of Asmanex daily. Update me in 1-2 weeks. Diarrhea: Pt could consider return to GI if Metamucil doesn't control symptoms. PMR: Encouraged pt to return to cementer hand to see if further options available. *Scheduled for 12/29* Facioscapulohumeral muscular dystrophy (H)naty request: Recommended pt return to neurology as they were wanting her to return after 1 year from 06/2023 visits. Agreed to order DME for new walker, as this diagnosis of facioscapulohumeral muscular dystrophy does has mobility limitations that significant impairs her ability to move safely about house to getfood, use bathroom without assistance. Pt is capable of safely using walker and her functional mobility is resolved to adequate degree with use of walker. follow up visit: As needed Jasmin Maradiaga PA-C [facility] S APPOINTMENT COORDINATOR S APPOINTMENT COORDINATOR documented in this encounter Nursing Notes * Estephania Loaiza CMA - 12/08/2024 2:00 PM CDT Chief Complaint Patient presents with Wellness Visit AWV Breathing Problem SOB and fatigue, feeling exhausted, dyspnea on exertion, started 1 month ago, her actuarial associate did not think this was heart related Pre-visit Screening: Immunizations: not up to date - shingrix and tdap at pharmacy Colonoscopy: NA Mammogram: NA Asthma Action Test/Plan: NA PHQ9: NA GAD7: NA Questioned patient about current smoking habits Pt. has never smoked. Ok to leave detailed message on voice mail for today's visit only Yes, phone # [phone] documented in this encounter Plan of Treatment NamePriorityAssociated DiagnosesDate/TimeENDOSCOPIC RETROGRADE CHOLANGIOPANCREATOGRAPHY, COMPLEX Cholecystitis Choledocholithiasis with acute cholecystitis documented as of this encounter Procedures Procedure NamePriorityDate/TimeAssociated DiagnosisCommentsTSH WITH FREE T4 REFLEX ([facility])Gjervfe7012/08/2024 3:46 PM CDT Other fatigue Shortness of breath VITAMIN B12 ([facility])Jlnnwbe7912/08/2024 3:46 PM CDT Other fatigue Shortness of breath FERRITIN ([facility])Lsdvyqo4312/08/2024 3:46 PM CDT Other fatigue Shortness of breath [place] COLLECTION VENOUS BLOOD LWYXZYXHLDCXWfholnb78/01/2025 2:53 PM CDT Other fatigue Shortness of breath HEMOGRAM WITH PLATELETS (BFP)Rgqdorj2212/08/2024 Other fatigue Shortness of breath documented in this encounter Results * VITAMIN B12 ([facility]) (12/08/2024 3:46 PM CDT)ComponentValueRef RangeTest Method Analysis TimePerformed AtPathologist SignatureVitamin [id number] - 1,100 pg/mL [facility]-TYRONComment: Please Note: Although the reference range for vitamin B12 is 200-1100 pg/mL, it has been reported that between 5 and 10% of patients with values between 200 and 400 pg/mL may experience neuropsychiatric and hematologic abnormalities due to occult B12 deficiency; less than 1% of patients with values above 400 pg/mL will have symptoms. Specimen (Source)Anatomical Location / LateralityCollection Method / Volume Collection TimeReceived BdiuHwhiz76/01/2025 3:46 PM CDT1 4:46 AM CDT Narrative Resulting Agency Comment Performing Organization Information: ? CB ? [facility] ? [address] [place] [address] ? Serafin Tse Authorizing ProviderResult TypeResult StatusStephanie Radha [facility]-CL[facility] - NON-BEAKER BLOOD LABSFinal ResultPerforming OrganizationAddressCity/State/[facility] CodePhone Number [facility] [address] [phone] * FERRITIN ([facility]) (12/08/2024 3:46 PM CDT)ComponentValueRef RangeTest Method Analysis TimePerformed AtPathologist TjnluqxwuVposalrm0714 - 288 ng/mLQUEST DIAGNOSTICS-SAIGEpecimen (Source)Anatomical Location / LateralityCollection Method / VolumeCollection TimeReceived IolyPsyke55/01/2025 3:46 PM CDT 12/09/2024 4:46 AM CDT Narrative Resulting Agency Comment Performing Organization Information: ? CB ? [facility] ? [address] [place] [address] ? Serafin Tse Authorizing ProviderResult TypeResult StatusStCoteau des Prairies Hospital NON-BEAKER BLOOD LABSFinal ResultPerforming OrganizationAddressty/State/ZIP CodePhone Number [facility] [address] [phone] * TSH WITH FREE T4 REFLEX ([facility]) (12/08/2024 3:46 PM CDT)ComponentValueRef RangeTest MethodAnalysis TimePerformed AtPathologist SignatureTSH1.980.40 - 4.50 mIU/LQUEST DIAGNOSTICS-BOUCHRAEASTMORELAND HOSPITALpecimen (Source)Anatomical Location / LateralityCollection Method / VolumeCollection TimeReceived TimeBlood 12/08/2024 3:46 PM CDT1 4:46 AM CDT Narrative Resulting Agency Comment Performing Organization Information: ? CB ? [facility] ? [address] [place] [address] ? Serafin Tse Authorizing ProviderResult TypeResult StatusStepjanie JohnsonSt. Vincent's [facility] BLOOD LABSFinal ResultPerforming OrganizationAddressty/State/ZIP CodePhone Number [facility] [address] [phone] * (ABNORMAL) Hemogram Platelet (BFP) (12/08/2024)ComponentValueRef RangeTest MethodAnalysis TimePerformed AtPathologist SignatureWBC4.84.0 - 11 10*9/LBFP INTERNALRBC Count3.48(A)3.8 - 5.2 10*12/LBFP YAKPQMYYTfrjntmlik83.911.7 - 15.7 g/dLBFP CEWBOBTGJienuitdjt81.335.0 - 47.0 %BFP FJFPSOBJHPN880.3(A)78 - 100 fL BFP IGXURGXTKPQ19.2(A)26 - 33 pgBFP QOBPYVDCJHUI86.731 - 36 g/dLBFP INTERNAL RDW12.4%BFP INTERNALPlatelet Velou299(A)150 - 375 10^9/LBFP INTERNALSpecimen (Source)Anatomical Location / LateralityCollection Method / VolumeCollection TimeReceived KktfOjwhh77/01/2025 Narrative Authorizing ProviderResult TypeResult StatusStephanorlin Maradiaga PA-CLAB - NON-BEAKER BLOOD LABSFinal ResultPerforming OrganizationAddressCity/State/ZIP CodePhone Number [facility] [address] [place] [address], [facility] documented in this encounter Visit Diagnoses Diagnosis Medicare annual wellness visit, subsequent- Primary Routine general medical examination at a health care facility Other fatigue Shortness of breath 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 PMR (polymyalgia rheumatica) Polymyalgia rheumatica documented in this encounter Additional Health Concerns AssessmentNoted TimePHQ-9 Depression Total Score: 8004/30/2023 2:24 PM SALES APPOINTMENT COORDINATOR documented as of this encounter Care Teams Team MemberRelationshipSpecialtyStart DateEnd Date Gavi Cloud MD [address] [facility] [address] [place] [address] PCP - GeneralFamily Medicine08/17/24 Hector Goode MD [address] [id number] Ananurolog05/01/17 John Cancino MD [address] 416115 Family Medicine - Sports Medicine07/30/17 Carl Farah MD [address] [place] [address] Assigned Heart and Vascular Provider05/18/2309 Hector Goode MD [address] [facility] [id number] [place] [address] Assigned Neuroscience Provider06/30/2409 Rivas Delcid MD [address] [place] [address] Assigned Surgical Rpvecxrl74/23/24 Gavi Cloud MD [address] [address] Assigned PCP10/30/2509 Blue Mensah MD Assigned Heart and Vascular Cxomocrw78/23/25 Jasmin Maradiaga PA-C [address], [address] [address] Assigned PCP01/06/2511/22/25 Gavi Cloud MD [address] [address] Assigned PCP01/31/2512/22/25 Jasmin Maradiaga PA-C [address] [address] Assigned PCP03/01/25documented as of this encounter
--- OUTSIDE RECORDS SUMMARY | 2025-01-12 11:00 | XMS_ITS | Encounter Summary ---
Author Organization [facility] Address [address] [place] [address] Care Team Providers Care Tray Drier Name Role Phone Hector Goode MD Unavailable John Cancino MD Unavailable [phone] Rivas Delcid MD Unavailable Gavi Cloud MD Primary Care Provider [phone] Blue Mensah MD Unavailable Un available Jasmin Maradiaga PA-C Unavailable + [phone] Reason for Referral * Consultation (Urgent: 3-5 Days) - Pending ReviewSpecialtyDiagnoses / ProceduresReferred By ContactReferred To Contact Diagnoses Hospital discharge follow-up TIA (transient ischemic attack) Stage 3 chronic kidney disease, unspecified whether stage 3a or 3b CKD (H) Cochlear implant status Gavi Cloud MD [address] [facility] [address] [place] [address] Phone: tel: fax: Referral IDStatusReasonStart DateExpiration DateVisits RequestedVisits [id number] Comments To help facilitate your referral to neurosurgery, please request the release of your outside records to assist the scheduling team. X-rays, CTs, MRIs, and other imaging must be pushed electronically to the [employer] system. Please be aware that coverage of these services is subject to the terms and limitations of your health insurance plan. Call member services at your health plan with any benefit or coverage questions. Patient sees ent at [place], was recently hospitalized at [facility] and was told to have referral to neurology at [place], has cochlear implant and needs flup mri. ICE TRAINER Reason for Visit * ReasonCommentsHospital F/UHospital F/U. [facility]. 01/07/2025 - 01/08/2025. Acute transient cerebral ischemia. Encounter Details DateTypeDepartmentCare Team (Latest Contact Info)Bafxjgqvwgb82/05/2025 11:00 AM CSTOffice Visit [facility] [address] [place] [address] Gavi Cloud MD [address] [place] [address] [address] [place], [place] [id number] Hospital discharge follow-up (Primary Dx); TIA (transient ischemic attack); Stage 3 chronic kidney disease, unspecified whether stage 3a or 3b CKD (H); Dilated cardiomyopathy (H); Cochlear implant status Social History Tobacco UseTypesPacks/DayYears UsedDateSmoking Tobacco: NeverPassive Smoke Exposure: NeverSmokeless Tobacco: NeverAlcohol UseStandard Drinks/WeekCommentsNo 0 (1 standard drink = 0.6 oz pure alcohol)PHQ-2AnswerDate RecordedPHQ-2 Score0 12/08/2024dolescent EducationAnswerDate RecordedGetting School Help NeededNot on file12/05/2022Food [...] abandoned building, in an overnight prison, or couch-surfing.)Yes02/02/2024re you worried about losing your [...] InformationValueDate RecordedSex Assigned at BirthNot on fileLegal ZfqHpljqa61/04/2012 2:58 AM CSTGender IdentityNot on file Sexual OrientationNot on filedocumented as of this encounter Last Filed Vital Signs Vital SignReadingTime TakenCommentsBlood Ymmaflbl116/6201/12/2025 11:08 AM SERVICE TRAINER Mpzbz916001/12/2025 11:08 AM ZBPGhykfdbapft34.2 ??C (97.2 ??F)01/12/2025 11:08 AM CSTRespiratory Rate--Oxygen Fubijbkyjc18%01/12/2025 11:08 AM CSTInhaled Oxygen Concentration--Weight--Height--Body Mass Index--documented in this encounter Progress Notes * Gavi Cloud MD - 01/12/2025 11:00 AM CST . ICE TRAINER * Gavi Cloud MD - 01/12/2025 11:00 AM CST Assessment & Plan Problem List Items Addressed This Visit Dilated cardiomyopathy (H)--followed by cardiology CKD (chronic kidney disease) stage 3, GFR 30-59 ml/min (H) Relevant Orders Adult Neurology Public Health Worker Referral - To a [facility] Location (Use POS/Location) Cochlear implant status--followed by ent [place] Relevant Orders Adult Neurology Public Health Worker Referral - To a [facility] (Use POS/Location) Other Visit Diagnoses Hospital discharge follow-up - Primary Relevant Orders Adult Neurology Public Health Worker Referral - To a [facility] Location (Use POS/Location) VENOUS COLLECTION (Completed) Basic Metabolic Panel (BFP) (Completed) TIA (transient ischemic attack) Relevant Orders Adult Neurology Public Health Worker Referral - To a [facility] Location (Use POS/Location) 1. Hospital discharge follow-up (Primary) Check labs. She is requesting a referral to see neurology. She was told upon discharge to see them and she isn't sure why the hospital didn't do the referral. She said she needs an MRI but this will need a special procotol due to her cochlear implant. - Adult Neurology Public Health Worker Referral - To a [facility] Location (Use POS/Location) - VENOUS COLLECTION - Basic Metabolic Panel (BFP) 2. TIA (transient ischemic attack) Followup with neurology. - Adult Neurology Public Health Worker Referral - To a [facility] Location (Use POS/Location) 3. Stage 3 chronic kidney disease, unspecified whether stage 3a or 3b CKD (H) - Adult Neurology Public Health Worker Referral - To a [facility] Location (Use POS/Location) 4. Dilated cardiomyopathy (H) Followed by cardiology. I recommnd flup with cardiology. 5. Cochlear implant status - Adult Neurology Public Health Worker Referral - To a [facility] Location (Use POS/Location) MED REC REQUIRED Post Medication Reconciliation Status: discharge medications reconciled, continue medications without change BMI Estimated body mass index is 39.86 kg/m?? as calculated from the following: Height as of 01/07/25: 1.6 m (5' 3). Weight as of 01/07/25: 102.1 kg (225 lb). Followup when due for medication check. Sandro Lees is a 80 year old, presenting for the following health issues: Hospital F/U (Hospital F/U. [facility]. 01/07/2025 - 01/08/2025. Acute transient cerebral ischemia.) HPI Here for hospital followup. Had tia.had episode of slurred speech. She had a head ct, labs. She also has history cardiomyopathy. She has a cochlear implant and ent consult said she first needs a cochlear implant kit Also started on plavix and aspirin. She is followed by cardiology. And just saw them a month ago. Right cochlear implant. Notes reviewed from [facility]. She is back at home now and is feeling ok. She is requesting a referral to neurology. Hospital Follow-up Visit: Hospital/Assisted/IP Rehab Facility: [facility] Date of Admission: 01/07/2025 Date of Discharge: 01/08/2025 Reason(s) for Admission: Transient Cerebral Ischemia; Acute Do you have any other stressors you would like to discuss with your provider? No Problems taking medications regularly: None Medication changes since discharge: started Plavix Problems adhering to non-medication therapy: None Summary of hospitalization: See outside records, reviewed and scanned Diagnostic Tests/Treatments reviewed. Follow up needed: neurology, cardiology. Other Healthcare Providers Involved in Patient???s Care: Homecare and Physical Therapy Update since discharge: improved. Plan of care communicated with patient Review of Systems Constitutional, HEENT, cardiovascular, pulmonary, gi and gu systems are negative, except as otherwise noted. Objective BP 132/62 (BP Location: Left arm, Patient Position: Sitting, Cuff Size: Adult Regular) Pulse 77 Temp 97.2 ??F (36.2 ??C) (Temporal) SpO2 98% There is no height or weight on file to calculate BMI. Physical Exam GENERAL: alert and no distress MS: no gross musculoskeletal defects noted, no edema PSYCH: mentation appears normal, affect normal/bright Recent Results (from the past 24 hours) Basic Metabolic Panel (BFP) Result Value Ref Range Carbon Dioxide 25.5 20 - 32 mmol/L Creatinine 1.15 0.60 - 1.30 mg/dL Glucose 89 60 - 99 mg/dL Sodium 140.0 135 - 146 mmol/L Potassium 4.23 3.5 - 5.3 mmol/L Chloride 105.7 98 - 110 mmol/L Urea Nitrogen 18 7 - 25 mg/dL Calcium 9.7 8.6 - 10.3 mg/dL BUN/Creatinine Ratio 16 6 - 32 Signed Electronically by: Gavi Cloud MD ICE TRAINER documented in this encounter Nursing Notes * Blue Emmanuel MA - 01/12/2025 11:00 AM CST Chief Complaint Patient presents with Hospital F/U Hospital F/U. [facility]. 01/07/2025 - 01/08/2025. Acute transient cerebral ischemia. ICE TRAINER documented in this encounter Plan of Treatment NamePriorityAssociated DiagnosesDate/TimeENDOSCOPIC RETROGRADE CHOLANGIOPANCREATOGRAPHY, COMPLEX Cholecystitis Choledocholithiasis with acute cholecystitis NameTypePriorityAssociated DiagnosesOrder ScheduleAdult Neurology Public Health Worker Referral - To a [facility] Location (Use POS/Location)ReferralUrgent: 3-5 Days Hospital discharge follow-up TIA (transient ischemic attack) Stage 3 chronic kidney disease, unspecified whether stage 3a or 3b CKD (H) Cochlear implant status Ordered: 01/12/2025documented as of this encounter Procedures Procedure NamePriorityDate/TimeAssociated DiagnosisCommentsPR COLLECTION VENOUS BLOOD WNKHPNFURNYASmeyjhw66/05/2025 11:27 AM SERVICE TRAINER Hospital discharge follow-up BASIC METABOLIC PANEL (BFP)Rnztmhq3401/12/2025 Hospital discharge follow-up documented in this encounter Results * Basic Metabolic Panel (BFP) (01/12/2025)ComponentValueRef RangeTest Method Analysis TimePerformed AtPathologist SignatureCarbon Ontqale06.520 - 32 mmol/L BFP INTERNALCreatinine1.150.60 - 1.30 mg/dLBFP EZTBJQDRNjgqdmw3724 - 99 mg/dL BFP GMWRWZQKImwlfw582.0135 - 146 mmol/LBFP INTERNALPotassium4.233.5 - 5.3 mmol/LBFP CGAWPUXRWedgetym165.798 - 110 mmol/LBFP INTERNALUrea Ioxyfsuu421 - 25 mg/dLBFP INTERNALCalcium9.78.6 - 10.3 mg/dLBFP INTERNALBUN/Creatinine Ratio 166 - 32BFP INTERNALSpecimen (Source)Anatomical Location / Laterality Collection Method / VolumeCollection TimeReceived NwqwNlzns95/05/2025 Narrative Authorizing ProviderResult TypeResult StatusGavi Cloud MDLAB - JERRY-BEAKER BLOOD LABSFinal ResultPerforming OrganizationAddressCity/State/ZIP CodePhone Number [facility] [address] [place] [address] [address] [place] [address] documented in this encounter Visit Diagnoses Diagnosis Hospital discharge follow-up- Primary Other follow-up examination TIA (transient ischemic attack) Unspecified transient cerebral ischemia Stage 3 chronic kidney disease, unspecified whether stage 3a or 3b CKD (H) Dilated cardiomyopathy (H) Other primary cardiomyopathies Cochlear implant status Other postprocedural status documented in this encounter Additional Health Concerns AssessmentNoted TimePHQ-9 Depression Total Score: 8004/30/2023 2:24 PM SERVICE TRAINER documented as of this encounter Care Teams Team MemberRelationshipSpecialtyStart DateEnd Date Gavi Cloud MD [address] [address] PCP - GeneralFamily Medicine08/17/24 Hector Goode MD [address] [address] Neurolog05/01/17 John Cancino MD [address] [address] MDFamily Medicine - Sports Medicine07/30/17 Rivas Delcid MD [address] [facility] [address] [place] [address] Assigned Surgical Tvvwudok57/23/24 Blue Mensah MD Assigned Heart and Vascular Ygmzqhww46/23/25 Jasmin Maradiaga PA-C [address] , [facility] [address] [place] [address] Assigned PCP10//documented as of this encounter
--- OUTSIDE RECORDS SUMMARY | 2025-01-18 08:00 | XMS_ITS | Encounter Summary ---
Author Organization [facility] Address [address] [place] [address] Care Team Providers Care Freight Unloader Name Role Phone Elsewhere, Pcp Primary Care Provider Unavailabl e Reason for Referral * MRI/CAT/PET Scan (Routine) - ClosedSpecialtyDiagnoses / ProceduresReferred By ContactReferred To ContactRadiology Diagnoses Transient Ischemic Attack Procedures CT Head Neck Angiogram with IV Contrast CT Head Angiogram with IV Contrast Hever Young M.D. [address] [place] [address] Phone: tel: fax: [facility] Referral IDStatusReasonStart DateExpiration DateVisits RequestedVisits [id number]/11/[id number] WAY HEAD TENDER * MRI/CAT/PET Scan (Routine) - ClosedSpecialtyDiagnoses / ProceduresReferred By ContactReferred To ContactRadiology Diagnoses Transient Ischemic Attack Procedures CT Head without IV Contrast Hever Young M.D. [address] [place] [address] Phone: tel: fax: [facility] Referral IDStatusReasonStart DateExpiration DateVisits RequestedVisits [id number]/11/[id number]/11/202711 WAY HEAD TENDER Reason for Visit * Appointment Request (Routine) - ClosedSpecialtyDiagnoses / ProceduresReferred By ContactReferred To ContactNeurology Diagnoses Follow Up Exam Transient Ischemic Attack Chronic Kidney Disease (CKD), Stage 3 Unspecified (HCC) Cochlear Implant Status Gavi Cloud M.D. [address] [address] Phone: tel: fax: Referral IDStatusReasonStart DateExpiration DateVisits RequestedVisits [id number]/[id number]/6/[id number] Encounter Details DateTypeDepartmentCare Team (Latest Contact Info)Mcimpzwqxnz73/11/2025 8:00 AM CSTComprehensive Visit Department of Neurology in [place], [place] [address] [place] [address] Hever Young M.D. [address] [place] [address] Transient Ischemic Attack (Primary Dx) Social History Tobacco UseTypesPacks/DayYears UsedDateSmoking Tobacco: NeverSmokeless Tobacco: NeverAlcohol UseStandard Drinks/WeekCommentsNever0 (1 standard drink = 0.6 oz pure alcohol)Hunger Vital SignAnswerDate RecordedWithin the past 12 months, you worried that your food would run out before you got the money to buymore.Never true01/18/2025Within the past 12 months, the food you bought just didn't last and you didn't have money to get more.Never true01/18/2025PRAPARE - TransportationAnswerDate RecordedIn the past 12 months, has lack of transportation kept you from medical appointments or from getting medications?No 01/18/2025In the past 12 months, has lack of transportation kept you from meetings, work, or from getting things needed for daily living?No01/18/2025HC UtilitiesAnswerDate RecordedIn the past 12 months has the electric, gas, oil, or water [employer] threatened to shut off services in your home?No01/18/2025Housing StabilityAnswerDate RecordedWhat is your living situation today?I have a steady place to live01/18/2025CommentsNoSex and Gender InformationValueDate RecordedSex Assigned at HzrfoOttomb78/19/2018 8:06 AM CSTLegal SexFemale 04/11/2016 2:09 AM CSTGender BdwjhmsdUkekmx18/19/2018 8:06 AM CSTSexual GhctmkdsdwuXfwkmqpy24/19/2018 8:06 AM CSTdocumented as of this encounter Last Filed Vital Signs Vital SignReadingTime TakenCommentsBlood Nhkroica156/6101/18/2025 8:06 AM RAILWAY HEAD TENDER Bpwdn961101/18/2025 8:06 AM CSTTemperature--Respiratory Rate--Oxygen Saturation-- Inhaled Oxygen Concentration--Weight--Height--Body Mass Index--documented in this encounter Consult Notes * Phillip Webster M.D., M.S. - 01/18/2025 8:00 AM CST SUBJECTIVE CHIEF COMPLAINT/REASON FOR VISIT Griselda Lai is a 80 y.o. female who presents for evaluation following possible TIA two weeks ago. The patient verbally consented to an audio recording of their visit to assist with the completion of documentation. 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 Per my chart review, there isno history of diabetes, smoking, or atrial fibrillation. Her initial possible TIA-like symptoms began approximately 25 years ago, characterized by graduallyprogressive numbness on one side of the face, eventually involving the entire face, and associated with slurred speech. These episodes lasted 1-2 hours and resolved completely. MRI and MRA at that time did not show evidence of stroke but did reveal basilar artery narrowing. She was started on warfarin (Coumadin) for presumed secondary stroke prevention. She experienced a recurrent, stereotypical episode in September 2002. Subsequent second opinion and epilepsy workup were unrevealing, and the indication for long-term anticoagulation remained unclear, but she continued on warfarin without further events. In 2006, she developed an asymptomatic, small subacute subdural hematoma, likely secondary to supratherapeutic anticoagulation. There was no clear history of trauma, though she recalled a remote fall. At that time, Coumadin was discontinued and vitamin K administered. She was advised to avoid both a nticoagulation and antiplatelet therapy until further evaluation. Around this period, she also developed acute left-sided hearing loss, possibly vascular in etiology. She eventually was placed on aspirin that she has continued to this day. Most recently, she presented to [facility] on 01/07[facility]2025 with acute onset of difficulty with reading comprehension, as well as slurred speech and word-finding difficulty. These symptoms gradually improved over approximately one hour. She denied any new focal weakness, sensory loss, or visual changes. She was admitted for evaluation of a TIA and discharged on 01/08/2025. During her hospitalization, a head CT was performed, which showed patent cervical and proximal intracranial vasculature without evidence of intracranial aneurysm. Laboratory studies were obtained, and her creatinine was 1.15 mg/dL, consistent with her baseline stage 3 CKD. A transthoracic echocardiogram (TTE) on 01/08/2025 demonstrated normal left ventricular size, mildly reduced global systolic function (EF 49%), abnormal septal motion consistent with left bundle branch block, and no significant valvular disease. She was started on dual antiplatelet therapy (Plavix and aspirin) during her hospital stay. She is followed by cardiology and last saw them one month ago. She is also followed by ENT at [place] for her right cochlear implant, and has been advised that any future MRI will require a special protocol dueto the implant. The patient is currently on several medications relevant for cardiovascular risk reduction and secondary stroke prevention, including aspirin 81 mg daily and clopidogrel 75 mg daily for dual antiplatelet therapy, rosuvastatin 5 mg daily for lipid lowering, carvedilol 12.5 mg twice daily, fdygikbkvq33 mg daily, spironolactone 25 mg daily, and furosemide 20 mg daily (with an extra dose as needed) for blood pressure and heart failure management, as well as potassium chloride supplementation and vitamin D3. Since discharge, she reports feeling back to her baseline and has had no further neurological symptoms. She has no issues with medication adherence. OBJECTIVE PHYSICAL EXAMINATION Physical Exam Neurologic: Mental status: Alert and oriented to time, place and person Cranial nerves: CN II-XII assessed and intact Motor: R L Reflex Elbow Flex (C5) 4 4 -1/-1 Wrist Ext (C6) 4 4 -1/-1 Elbow Ext (C7) 5 4 Finger Flex (C8) 5 5 Finger Abd (T1) 5 5 Hip Flex (L2) 3 3 Knee Ext (L3) 5 5 0/0 Dorsiflex (L4) 5 5 Hallux Ext (L5) 5 5 Plantarflex (S1) 4 4 -1/-1 Strength scale: 0 = Paralysis, 1 = Visible/palpable contraction, 2 = Full ROM w/o gravity, 3 = FullROM w/ gravity, 4 = Mod resistance, 5 = Full resistance Reflex scale: -4=absent, 0=normal, +4=sustained clonus; right/left Tone: normal in bilateral upper and lower extremities. Sensory: Sensation is intact to light touch in bilateral upper and lower extremities. Reportedly decreased in left leg both anteriorly and posteriorly between the knee and the ankle. Reflexes: Plantar flexor responses are flexor-flexor. Castelan negative. Coordination: Finger to nose normal bilaterally. Normal José. Gait: Patient unable to ambulate independently, thus not assessed. ASSESSMENT / PLAN Assessment & Plan #1 FSHD #2 Polymyalgia rheumatica #3 History of chronic myeloid leukemia #4 Macrocytosis #5 Cardiomyopathy #6 TIA in the setting of above This is an 80-year-old woman with a complex medical history, including possible recurrent TIAs, dilated cardiomyopathy, stage 3 chronic kidney disease, and multiple other comorbidities, who presentedmost recently with an episode of acute-onset slurred speech, word-finding difficulty, and impaired reading comprehension, all of which resolved within one hour. Her history and symptom profile are most consistent with a transient ischemic attack (TIA), given the sudden onset of focal neurological deficits that resolved completely within 24 hours and the absence of persistent deficits on examination. Of note, patient does have multiple vascular risk factors, including dilated cardiomyopathy, hype rtension, hyperlipidemia, and a history of chronic myeloid leukemia. However, cardiac evaluation with echocardiography has already been completed and is reassuring. Prior EEGs were unremarkable for epilepsy and there were no stereotyped movements, migraine aura isless likely given absence of headaches. TGA inconsistent with reported episode. Her known history of facioscapulohumeral muscular dystrophy (FSHD) is also not associated with cognitive deficits or slu rred speech. Despite not having a clear diagnosis, we agree with continuation of the 3 week course of her dual antiplatelet therapy (aspirin and clopidogrel) initiated during her hospitalization. Her statin and antihypertensive regimens are currently appropriate for risk factor modification, with her blood pressure today being just over the 130/80 goal and her latest LDL being 77. Given her history of a priorsubdural hematoma on anticoagulation and the absence of atrial fibrillation or another clear cardioembolic source, antiplatelet therapy is preferred over anticoagulation. During her emergency department visit, while her CT scan comments on intracranial vasculature, it is unclear if a CT angiogram of the head and neck was ordered to assess for vascular pathology. Thus,we plan to obtain repeat CT head and CT angiogram of the head and neck. While we considered MRI of the brain with a cochlear implant protocol to assess for evidence of acute or chronic infarction, given that we are several weeks out from her TIA, the likelihood of detecting the acute ischemic changes responsible for the TIA is low. Lastly, given an unexplained macrocytosis despite a previously normal B12 value, we will obtain a CBC with differential as well as homocystine and folate levels. Rebel Webster MD PGY-2, PM&R WAY HEAD TENDER * Hever Young M.D. - 01/18/2025 8:00 AM CST This is a supervisor education note. I have seen taken history examined the patient myself. HPI: This is an extremely pleasant 80-year-old woman who is here with her equally pleasant son. She was in her usual health which is rather complicated with a family history of sister having multiple sclerosis, brother having muscular dystrophy, herself and her son having muscular dystrophy theFSHD type, herself and her son known to have dilated cardiomyopathy, she has also chronic myeloid leukemia which might be related to the genetic risk for FSHD, hypertension hypercholesterolemia without any diabetes she was also diagnose on top of all of the above with polymyalgia rheumatica after vaccination induced significant muscular pain. She received steroids for the latter. She also has a left bundle branch block because of the heart issue discussed above. In this context there is a history of potential transient ischemic attack 20+ years ago but we do not have any details that is never been confirmed. Two weeks ago she developed hyperacute word-finding difficulty in the context of when she was reading she also noticed she had reading comprehension issue but not listening comprehension problem she was able to understand what he was told when she tried to speak the words did not make sense. This whole thing lasted 90 minutes. She was in the emergency room immediately got a CT head which we do not have per report did not show a pathology it does not mentioned a CT angiogram though they do talk about the vasculature and she remembers she had contrast with it. No carotid ultrasound was done butultimately the report suggested that has no vascular compromise which I suspect is based on a contrast CT scan. She also had an echocardiogram shortly after but at the same time she had had 0 echocardiogram backin November 2024 other then some of the findings consistent with a left bundle branch block there was nothing changed and risky for a ischemic event. In this context her doctor recommended to be seen by a neurologist for which the patient is here especially because she has a cochlear implant and they wanted to do potentially an MRIs and they couldnot really justify that. Notably she was previously followed by my colleagues here in Neurology for the muscular dystrophy and also she has a neurologist that has seen her less than a year ago in [facility] for her muscular dystrophy for now multiple years. She is completely new to us in his urgent neuralgia Clinic. Examination: Overall the examination is as recorded but she significantly has proximal weakness as well as axialweakness which leads to walking difficulty more importantly though this is by his son suggest to bealso problem that has happened with her brother. Other than that that has no focal neurological find ing to suggest she has a recent ischemic stroke. We did question her word- finding ability but she is not sure whether that predated even the TIA event that is on baseline. Her son was also not committable. Impression report plan: #1 FSHD #2 Polymyalgia rheumatica #3 History of chronic myeloid leukemia #4 Macrocytosis with homocyteinemia #5 Cardiomyopathy #6 TIA in the setting of above This is a complex evaluation given the fact that the patient has several potential risk factors forTIA but then also an unexplained macrocytosis even though previously B12 was within normal limits Iwould like to the following to further workup the situation: A. We will obtain a repeat CT head and CT angiogram of the head and neck B. We will obtain CBC with differential C. We will obtain homocystine but repeat the B12 and also obtain folate levels D. If the above studies do not reveal a specific cause a recommendation would be to unless it is contraindicated to use a baby aspirin a day as well as continue with significant risk management with controlling the blood pressure as well as cholesterol. She does not have diabetes luckily that we donot have to worry about that at this time. I am not sure a cardioembolic source can be identified given the back to back echocardiogram that did not reveal a very specific reason. ADDENDUM: CT and CT angiogram did not reveal an explanation for her symptoms and remember the echocardiogram were negative. However she does have macrocytosis with homocystinemia with normal B12 levels. That would imply that that would increase her risk of ischemic events including TIA. I would recommend the patient to be tested for MTHFR mutation but that has no reason to move forward with a MRIs of the brain at this time unless absolutely indicated. My suspicion is the best course of action is to give her high-dose B12 and folate to bring the homocystine levels down and hopefully help with the macrocytosis. If the local colleagues who made the referral can not comfortably manage it maybe a hematology consultation at that time might be necessary but from our end we do not have anything else to offer. As Discussed above though a baby aspirin a day a significant risk management with blood pressure and cholesterol should be done. All discussed with her and her son. We spent 60 minutes in his evaluation more than 30 minutes spent in counseling. A. WAY HEAD TENDER WAY HEAD TENDER documented in this encounter Plan of Treatment Not on file documented as of this encounter Results * CT Head Neck Angiogram with IV Contrast (01/19/2025 5:34 PM RAILWAY HEAD TENDER)Anatomical RegionLateralityModalityHead and Neck, Neuroradiology RST LOS, Neuroradiology AREyal ERAZO, Neuroradiology FLMary Jo LOSN/AComputed Tomography, Computed Tomography Specimen (Source)Anatomical Location / LateralityCollection Method / Volume Collection TimeReceived Time01/19/2025 5:24 PM RAILWAY HEAD TENDER Impressions 01/20/2025 1:42 PM RAILWAY HEAD TENDER 1. No significant narrowing of the head and neck vasculature, with anatomic variations of the posterior/vertebral artery and marshall of Sheikh as described. 2. No acute intracranial abnormality, although partially obscured by a right BAHA device. 3. Cervical spondylosis with spinal stenosis as described Narrative 01/20/2025 1:42 PM RAILWAY HEAD TENDER EXAM: CT HEAD WITHOUT IV CONTRAST, CT HEAD NECK ANGIOGRAM WITH IV CONTRAST Including 3D image post-processing with or without AI assistance. COMPARISON: Outside head CT and head and neck CT angiogram dated 01/07/2025. FINDINGS: Head CT. Significant artifact along the right temporal/parietal region like from a bone anchored hearing augmentation device (BAHA). No acute change. No mass or extra-axial fluid collections. Hyperostosis frontalis. A small amount of white matter low density is nonspecific and often related to small vessel change. Head and neck CTA. Neck CTA. Conventional three-vessel arch anatomy with no significant narrowing of the great vessel origins. The origin of the right CCA is obscured by large contrast bolus in the right subclavian vein. The remainder of the right and left common carotid arteries are widely patent. A small amount of calcific and atheromatous plaque is present at both carotid bifurcations, but both bifurcations are widely patent. Both ICAs are widely patent. There is right vertebral dominance. The left vertebral artery is small caliber/atretic but patent. Intracranial CTA. The basilar artery is small caliber. Prominent right persistent posterior circulation widely patent into the right posterior cerebral artery. Patent left posterior and anterior communicating arteries. Mild calcific and sclerotic vascular narrowing of both cavernous carotid arteries. No aneurysm. Cervical spondylosis with mild lordotic reversal at C5-6 and C6-7, resulting in moderate/advanced spinal canal narrowing, most severe at C6-7. Procedure Note Kiel Mcneal M.D. - 01/20/2025 EXAM: CT HEAD WITHOUT IV CONTRAST, CT HEAD NECK ANGIOGRAM WITH IVCONTRAST Including 3D image post-processing with or without AI assistance. COMPARISON: Outside head CT and head and neck CT angiogram dated1. FINDINGS: Head CT. Significant artifact along the right temporal/parietal regionlike from a bone anchored hearing augmentation device (BAHA). No acutechange. No mass or extra-axial fluid collections. Hyperostosis frontalis.A small amount of white matter low density is nonspecific and oftenrelated to small vessel change. Head and neck CTA. Neck CTA. Conventional three-vessel arch anatomy with no significantnarrowing of the great vessel origins. The origin of the right CCA isobscured by large contrast bolus in the right subclavian vein. Theremainder of the right and left common carotid arteries are widely patent.A small amount of calcific and atheromatous plaque is present at bothcarotid bifurcations, but both bifurcations are widely patent. Both ICAsare widely patent. There is right vertebral dominance. The left vertebralartery is small caliber/atretic but patent. Intracranial CTA. The basilar artery is small caliber. Prominent rightpersistent posterior circulation widely patent into the rightposterior cerebral artery. Patent left posterior and anteriorcommunicating arteries. Mild calcific and sclerotic vascular narrowing ofboth cavernous carotid arteries. No aneurysm. Cervical spondylosis with mild lordotic reversal at C5-6 and C6-7,resulting in moderate/advanced spinal canal narrowing, most severe atC6-7. IMPRESSION: 1. No significant narrowing of the head and neck vasculature, withanatomic variations of the posterior/vertebral artery and marshall of Willisas described. 2. No acute intracranial abnormality, although partially obscured by aright BAHA device. 3. Cervical spondylosis with spinal stenosis as described Authorizing ProviderResult TypeResult StatusHever Young M.D.[facility] PROCEDURESFinal Result * CT Head without IV Contrast (01/19/2025 5:34 PM RAILWAY HEAD TENDER)Anatomical Region LateralityModalityHead, Neuroradiology RST LOS, Neuroradiology ARZ LOS, Neuroradiology FLA LOSN/AComputed Tomography, Computed TomographySpecimen (Source)Anatomical Location / LateralityCollection Method / VolumeCollection TimeReceived Time01/19/2025 5:16 PM RAILWAY HEAD TENDER Impressions 01/20/2025 1:42 PM RAILWAY HEAD TENDER 1. No significant narrowing of the head and neck vasculature, with anatomic variations of the posterior/vertebral artery and marshall of Sheikh as described. 2. No acute intracranial abnormality, although partially obscured by a right BAHA device. 3. Cervical spondylosis with spinal stenosis as described Narrative 01/20/2025 1:42 PM RAILWAY HEAD TENDER EXAM: CT HEAD WITHOUT IV CONTRAST, CT HEAD NECK ANGIOGRAM WITH IV CONTRAST Including 3D image post-processing with or without AI assistance. COMPARISON: Outside head CT and head and neck CT angiogram dated 01/07/2025. FINDINGS: Head CT. Significant artifact along the right temporal/parietal region like from a bone anchored hearing augmentation device (BAHA). No acute change. No mass or extra-axial fluid collections. Hyperostosis frontalis. A small amount of white matter low density is nonspecific and often related to small vessel change. Head and neck CTA. Neck CTA. Conventional three-vessel arch anatomy with no significant narrowing of the great vessel origins. The origin of the right CCA is obscured by large contrast bolus in the right subclavian vein. The remainder of the right and left common carotid arteries are widely patent. A small amount of calcific and atheromatous plaque is present at both carotid bifurcations, but both bifurcations are widely patent. Both ICAs are widely patent. There is right vertebral dominance. The left vertebral artery is small caliber/atretic but patent. Intracranial CTA. The basilar artery is small caliber. Prominent right persistent posterior circulation widely patent into the right posterior cerebral artery. Patent left posterior and anterior communicating arteries. Mild calcific and sclerotic vascular narrowing of both cavernous carotid arteries. No aneurysm. Cervical spondylosis with mild lordotic reversal at C5-6 and C6-7, resulting in moderate/advanced spinal canal narrowing, most severe at C6-7. Procedure Note Kiel Mcneal M.D. - 01/20/2025 EXAM: CT HEAD WITHOUT IV CONTRAST, CT HEAD NECK ANGIOGRAM WITH IVCONTRAST Including 3D image post-processing with or without AI assistance. COMPARISON: Outside head CT and head and neck CT angiogram dated1. FINDINGS: Head CT. Significant artifact along the right temporal/parietal regionlike from a bone anchored hearing augmentation device (BAHA). No acutechange. No mass or extra-axial fluid collections. Hyperostosis frontalis.A small amount of white matter low density is nonspecific and oftenrelated to small vessel change. Head and neck CTA. Neck CTA. Conventional three-vessel arch anatomy with no significantnarrowing of the great vessel origins. The origin of the right CCA isobscured by large contrast bolus in the right subclavian vein. Theremainder of the right and left common carotid arteries are widely patent.A small amount of calcific and atheromatous plaque is present at bothcarotid bifurcations, but both bifurcations are widely patent. Both ICAsare widely patent. There is right vertebral dominance. The left vertebralartery is small caliber/atretic but patent. Intracranial CTA. The basilar artery is small caliber. Prominent rightpersistent posterior circulation widely patent into the rightposterior cerebral artery. Patent left posterior and anteriorcommunicating arteries. Mild calcific and sclerotic vascular narrowing ofboth cavernous carotid arteries. No aneurysm. Cervical spondylosis with mild lordotic reversal at C5-6 and C6-7,resulting in moderate/advanced spinal canal narrowing, most severe atC6-7. IMPRESSION: 1. No significant narrowing of the head and neck vasculature, withanatomic variations of the posterior/vertebral artery and marshall of Willisas described. 2. No acute intracranial abnormality, although partially obscured by aright BAHA device. 3. Cervical spondylosis with spinal stenosis as described Authorizing ProviderResult TypeResult StatusHever ANDUJAR CT PROCEDURESFinal Result * (ABNORMAL) Creatinine with Estimated GFR (01/18/2025 11:35 AM RAILWAY HEAD TENDER)Component ValueRef RangeTest MethodAnalysis TimePerformed AtPathologist Signature Creatinine1.21(H)0.59 - 1.04 mg/dL01/18/2025 12:22 PM CSTDTLEstimated GFR (eGFR)45(L)>=60 mL/min/BSA01/18/2025 12:22 PM CSTDTLComment: Estimated GFR calculated using the 2020 CKD_EPI creatinine equation. Specimen (Source)Anatomical Location / LateralityCollection Method / Volume Collection TimeReceived TimeBlood (Blood, Venous)01/18/2025 11:35 AM RAILWAY HEAD TENDER 01/18/2025 11:42 AM RAILWAY HEAD TENDER Narrative Authorizing ProviderResult TypeResult StatusHever Young M.D.LAB BLOOD ADD-ONFinal ResultPerforming OrganizationAddressCity/State/ZIP CodePhone Number [facility] [address] [place] [address], [place] [address] * Folate (01/18/2025 11:35 AM RAILWAY HEAD TENDER)ComponentValueRef RangeTest MethodAnalysis TimePerformed AtPathologist SignatureFolate, S17.0>=4.0 mcg/L103/20/2024 12:51 PM CSTDTLSpecimen (Source)Anatomical Location / LateralityCollection Method / VolumeCollection TimeReceived TimeBlood (Blood, Venous)01/18/2025 11:35 AM RAILWAY HEAD TENDER 01/18/2025 11:42 AM RAILWAY HEAD TENDER Narrative Authorizing ProviderResult TypeResult StatusHever Young M.D.LAB BLOOD ADD-ONFinal ResultPerforming OrganizationAddressCity/State/ZIP CodePhone Number [facility] [address] [place] [address], [place] [address] * Vitamin B12 Assay (01/18/2025 11:35 AM RAILWAY HEAD TENDER)ComponentValueRef RangeTest Method Analysis TimePerformed AtPathologist SignatureVitamin B12 Assay, [id number] - 914 ng/L103/20/2024 12:56 PM CSTDTLComment: ----ADDITIONAL INFORMATION---- In patients being evaluated for vitamin B12 deficiency who have intrinsic factor blocking antibodies (IFBA), false elevations of B12 may occur due to IFBA interference thus potentially obscuring a physiological deficiency of B12. If observed B12 concentrations are discordant with clinical presentation, measurement of methylmalonic acid (MMA) should be considered. Specimen (Source)Anatomical Location / LateralityCollection Method / Volume Collection TimeReceived TimeBlood (Blood, Venous)01/18/2025 11:35 AM RAILWAY HEAD TENDER 01/18/2025 11:42 AM RAILWAY HEAD TENDER Narrative Authorizing ProviderResult TypeResult StatusHever Young M.D.LAB BLOOD ADD-ONFinal ResultPerforming OrganizationAddressCity/State/ZIP CodePhone Number [facility] [address] [place] [address], [facility] DTL [facility] [address] [place] [address] * (ABNORMAL) CBC with Differential, Blood (01/18/2025 11:35 AM RAILWAY HEAD TENDER)Component ValueRef RangeTest MethodAnalysis TimePerformed AtPathologist Signature Vdkgargyqu08.511.6 - 15.0 g/dL01/18/2025 12:04 PM UXYAOACbuvapjens51.635.5 - 44.9 %01/18/2025 12:04 PM CSTDTLErythrocytes3.86(L)3.92 - 5.13 x10(12)/L 01/18/2025 12:04 PM ACUMZEDVW17.878.2 - 97.9 fL01/18/2025 12:04 PM CSTDTLRBC Distrib Width13.212.2 - 16.1 %01/18/2025 12:04 PM CSTDTLPlatelet Uijhf813(L) 157 - 371 x10(9)/L103/20/2024 12:54 PM CSTDTLLeukocytes4.33.4 - 9.6 x10(9)/L 01/18/2025 12:54 PM CSTDTLNeutrophils2.031.56 - 6.45 x10(9)/L103/20/2024 12:04 PM CSTDHPMLymphocytes1.570.95 - 3.07 x10(9)/L103/20/2024 12:04 PM CSTDTL Monocytes0.420.26 - 0.81 x10(9)/L103/20/2024 12:04 PM CSTDTLEosinophils0.200.03 - 0.48 x10(9)/L103/20/2024 12:04 PM CSTDTLBasophils0.050.01 - 0.08 x10(9)/L 01/18/2025 12:04 PM CSTDTLSpecimen (Source)Anatomical Location / Laterality Collection Method / VolumeCollection TimeReceived TimeBlood (Blood, Venous) 01/18/2025 11:35 AM CST01/18/2025 11:43 AM RAILWAY HEAD TENDER Narrative Authorizing ProviderResult TypeResult StatusHever Young M.D.LAB BLOOD ADD-ONFinal ResultPerforming OrganizationAddressCity/State/ZIP CodePhone Number [facility] [address] [place] [id number], [place] DTL [facility] [address] [place] [address] [facility] [address] [place] [address] * (ABNORMAL) Homocysteine, Total, Plasma (01/18/2025 11:34 AM RAILWAY HEAD TENDER)ComponentValue Ref RangeTest MethodAnalysis TimePerformed AtPathologist Signature Homocysteine, Total, P17.6(H)7.1 - 16.0 nmol/mL01/24/2025 8:47 AM CSTDTL Comment: *POSITIVE* ??In this sample, the concentration of homocysteine was elevated. ?? Increased homocysteine has been associated with an increased risk of cardiovascular disease, cerebrovascular disease, peripheral arterial disease and thrombosis. ??Vitamin deficiencies (B6, B12 and folic acid) may also cause an increased homocysteine concentration. ??Inborn errors of methionine or cobalamin metabolism are a potential, but less likely, possibility for hyperhomocysteinemia. ??We recommend laboratory evaluation to include determination of vitamin B12 and folate levels, plasma amino acids, acylcarnitine profile, methylmalonic acid, and urine organic acid analyses. ----ADDITIONAL INFORMATION---- Liquid Chromatography-Tandem Mass Spectrometry (LC-MS/MS) This test was developed and its performance characteristics determined by [facility] in a manner consistent with CLIA requirements. This test has not been cleared or approved by the U.S. Food and Drug Administration. Specimen (Source)Anatomical Location / LateralityCollection Method / Volume Collection TimeReceived TimeBlood (Blood, Venous)01/18/2025 11:34 AM RAILWAY HEAD TENDER 01/18/2025 12:35 PM RAILWAY HEAD TENDER Narrative Authorizing ProviderResult TypeResult Onelia Young M.D.LAB BLOOD NON ADD-ONFinal ResultPerforming OrganizationAddressCity/State/ZIP CodePhone Number [facility] [address] [place] [address], [facility] DTL [address] [place] [address] documented in this encounter Visit Diagnoses Diagnosis Transient Ischemic Attack- Primary Transient Ischemic Attack documented in this encounter Additional Health Concerns InfectionOnset DateLast IndicatedResolved TimeProtective Ngtqvvhpdwl75/15/2023 3documented as of this encounter Care Teams Team MemberRelationshipSpecialtyStart DateEnd Date Elsewhere, Pcp PCP - GeneralInternal Medicine04/20/24documented as of this encounter
--- OUTSIDE RECORDS SUMMARY | 2025-02-01 13:30 | XMS_ITS | Encounter Summary ---
Author Organization [place] [facility] [place] [address] Care Team Providers Care Bi Application Developer Name Role Phone Hector Goode MD Unavailable John Cancino MD Unavailable Rivas Delcid MD Unavailable Gavi Cloud MD Primary Care Provider Blue Mensah MD Unavailable Un available Gavi Cloud MD Unavailable [phone] Reason for Visit * ReasonCommentsConsultConsult on medications. She found out that she is low on B-12, B-6, and folic acid. She would like to talk about what she should take to help this. Encounter Details DateTypeDepartmentCare Team (Latest Contact Info)Jsjuwuhfnih12/25/2025 1:30 PM CSTOffice Visit [facility] [address] [address] Jasmin Maradiaga PA-C [address] [place] [id number] Macrocytosis (Primary Dx); Low vitamin B12 level Social History Tobacco UseTypesPacks/DayYears UsedDateSmoking Tobacco: NeverPassive [...] abandoned building, in an overnight residential, or couch-surfing.)Yes02/02/2024re you worried about losing your [...] InformationValueDate RecordedSex Assigned at BirthNot on fileLegal BdtItomxu02/04/2012 2:58 AM CSTGender IdentityNot on file Sexual OrientationNot on filedocumented as of this encounter Last Filed Vital Signs Vital SignReadingTime TakenCommentsBlood Demqsqwh318/6002/01/2025 1:37 PM DIRECTOR OF PRIMARY Dexbw329902/01/2025 1:37 PM YNNYyptxnpgymt83.2 ??C (97.1 ??F)02/01/2025 1:37 PM CSTRespiratory Rate--Oxygen Qeafeiurrd72%02/01/2025 1:37 PM CSTInhaled Oxygen Concentration--Weight--Height--Body Mass Index--documented in this encounter Patient Instructions * Patient Instructions* Jasmin Maradiaga PA-C - 02/01/2025 1:30 PM DIRECTOR OF PRIMARY [facility] follow-up: Reviewed [facility] labs and neurology note. Recommended pt start on Vitamin B12 5000 mcg daily. Will send to pharmacy, but may need to get over the counter. Return in 2 monhs to recheck check labs levels. If macrocytosis and Vitamin B12 levels aren't improving, can consider injection form of vitamin B12, screening for MTHFR. Depression, anxiety: Will refill sertraline at 100 mg daily dose as needed (even to mail order). CKD3: Emphasized importance of adequate hydration. Goal of 64 oz water. Will recheck kidney function at follow-up appt. CTOR OF PRIMARY documented in this encounter Progress Notes * Jasmin Maradiaga PA-C - 02/01/2025 1:30 PM CST CC: Follow-up [facility] History: [facility] follow-up: Pt had appt with [facility] Yrlmfpbie16/11/2025 due to recent TIA, where they had checked CBC, homocysteine, vitamin B12. They also update CTA and CT head. Did not recommend MRI, and did recommend pt continue to take LD ASA daily infinitely. They were wanting to optimize pt macrocystosis, and advised working with PCP or clerical production worker to get on vitamin B12 supplement, and consider being checked for MTHFR mutation. I had advised pt to start vitamin B 12 after borderline low 12/08, but she does notrecall this conversation and did not start the supplement. Depression, anxiety: Increased sertraline to 100 mg daily at last appt. She is liking this. No side effects. PMH, MEDICATIONS, ALLERGIES, SOCIAL AND FAMILY HISTORY in EPIC and reviewed by me personally. ROS negative other than the symptoms noted above in the HPI. Examination BP 118/60 (BP Location: Right arm, Patient Position: Sitting, Cuff Size: Adult Large) Pulse 64 Temp 97.1 ??F (36.2 ??C) (Temporal) SpO2 96% Constitutional: Sitting comfortably, in no acute distress. Vital signs noted Neck: no adenopathy, trachea midline and normal to palpation, thyroid normal to palpation Cardiovascular: regular rate and rhythm, no murmurs, clicks, or gallops Respiratory: normal respiratory rate and rhythm, lungs clear to auscultation SKIN: No jaundice/pallor/rash. Psychiatric: mentation appears normal and affect normal/bright A/P ICD-10-CM 1. Macrocytosis D75.89 Cyanocobalamin (VITAMIN B-12) 5000 MCG TBDP 2. Low vitamin B12 level R79.89 Cyanocobalamin (VITAMIN B-12) 5000 MCG TBDP DISCUSSION: [facility] follow-up: Reviewed [facility] labs, imaging and neurology note. Recommended pt start on Vitamin B12 5000 mcgdaily. Will send to pharmacy, but may need to get over the counter. Return in 2 months to recheck labs levels. If macrocytosis and Vitamin B12 levels aren't improving, can consider injection form of vitamin B12, screening for MTHFR. If B12 has improved, could consider lowering dose at that time. Ptis seeing clerical production worker for typical 6 month appt in June. Depression, anxiety: Given that pt doing well on increased dose of sertraline, will refill sertraline at 100 mg daily dose as needed (even to mail order) up to 6 months. CKD3: Reviewed kidney labs with patient. Emphasized importance of adequate hydration. Goal of 64 oz water. Will recheck kidney function at follow-up appt. follow up visit: 2 months Time of visit: 35 minutes Jasmin Maradiaga PA-C [facility] CTOR OF PRIMARY CTOR OF PRIMARY documented in this encounter Nursing Notes * Blue Emmanuel MA - 02/01/2025 1:30 PM CST Chief Complaint Patient presents with Consult Consult on medications. She found out that she is low on B-12, B-6, and folic acid. She would like to talk about what she should take to help this. Pre-visit Screening: Immunizations: not up to date - Covid Colonoscopy: NA Mammogram: NA Asthma Action Test/Plan: NA PHQ9: Given GAD7: Given Questioned patient about current smoking habits Pt. has never smoked. Ok to leave detailed message on voice mail for today's visit only yes, phone # [phone] (home) CTOR OF PRIMARY documented in this encounter Plan of Treatment NamePriorityAssociated DiagnosesDate/TimeENDOSCOPIC RETROGRADE CHOLANGIOPANCREATOGRAPHY, COMPLEX Cholecystitis Choledocholithiasis with acute cholecystitis documented as of this encounter Visit Diagnoses Diagnosis Macrocytosis- Primary Other specified diseases of blood and blood-forming organs Low vitamin B12 level Other B-complex deficiencies documented in this encounter Additional Health Concerns AssessmentNoted TimePHQ-9 Depression Total Score: 8004/30/2023 2:24 PM DIRECTOR OF PRIMARY documented as of this encounter Care Teams Team MemberRelationshipSpecialtyStart DateEnd Date Gavi Cloud MD [address] [facility] [address] [place] [address] PCP - GeneralFamily Medicine08/17/24 Hector Goode MD [address] [place] [address] [id number] Neurolog05/01/17 John Cancino MD [address] [place] [address] [phone] [facility]07/30/17 Rivas Delcid MD [address] [facility] [address] [place] [address] Assigned Surgical Cpqiicgi66/23/24 Blue Mensah MD Assigned Heart and Vascular Yqkbbjqf54/23/25 Gavi Cloud MD [address] [facility] [address] [place] [address] Assigned PCP01/31/2512documented as of this encounter
--- OUTSIDE RECORDS SUMMARY | 2025-02-23 13:15 | XMS_ITS | Encounter Summary ---
Author Organization [place] Address [address] [facility] [address] Care Team Providers Care Smoke Jumper Name Role Phone Hector Goode MD Unavailable John Cancino MD Unavailable [phone] Rivas Delcid MD Unavailable Gavi Cloud MD Primary Care Provider [phone] Blue Mensah MD Unavailable Un available Gavi Cloud MD Unavailable [phone] Reason for Referral * Consultation (Routine: Next available opening) - Pending ReviewSpecialty Diagnoses / ProceduresReferred By ContactReferred To ContactUrology Diagnoses Other specified hypotension Tired Other urinary incontinence Stage 3 chronic kidney disease, unspecified whether stage 3a or 3b CKD (H) History of primary malignant neoplasm of urinary bladder Gavi Cloud MD [address] [facility] [address] [place] [address] Phone: tel: fax: [facility] Ref'l [address] [place] [address] Phone: tel: Referral IDStatusReasonStart DateExpiration DateVisits RequestedVisits [id number] Wncwea45/ Comments Please be aware that coverage of these services is subject to the terms and limitations of your health insurance plan. Call member services at your health plan with any benefit or coverage questions. [facility] [address] [place] [address] -- appt line [phone] -- fax IS THERAPIST Reason for Visit * ReasonCommentsDmeDME orders for BP cuff. Per her insurance, she can get a fall alert necklace. She had an infusion today and her BP was 87/47 there. Encounter Details DateTypeDepartmentCare Team (Latest Contact Info)Wdbgfxopmwp42/17/2025 1:15 PM CSTOffice Visit [facility] [address] [place] [phone] Gavi Cloud MD [address] [place] [address] [address] [place] [address] Other specified hypotension (Primary Dx); Tired; Other urinary incontinence; Stage 3 chronic kidney disease, unspecified whether stage 3a or 3b CKD (H); History of primary malignant neoplasm of urinary bladder; At risk for falls; Walker as ambulation aid Social History Tobacco UseTypesPacks/DayYears UsedDateSmoking Tobacco: NeverPassive [...] in an abandoned building, in an overnight nursing home, or couch-surfing.)Yes02/02/2024re you worried about losing your [...] InformationValueDate RecordedSex Assigned at BirthNot on fileLegal OrdPtgwsp41/04/2012 2:58 AM CSTGender IdentityNot on file Sexual OrientationNot on filedocumented as of this encounter Last Filed Vital Signs Vital SignReadingTime TakenCommentsBlood Wxqiemlr79/5402/23/2025 1:21 PM CRISIS THERAPIST Ugrlp049702/23/2025 1:21 PM JFTYmmslhttcok30.2 ??C (97.2 ??F)02/23/2025 1:21 PM CSTRespiratory Rate--Oxygen Uvzbllajnn00%02/23/2025 1:21 PM CSTInhaled Oxygen Concentration--Weight--Height--Body Mass Index--documented in this encounter Progress Notes * Gavi Cloud MD - 02/23/2025 1:15 PM CST Assessment & Plan Problem List Items Addressed This Visit CKD (chronic kidney disease) stage 3, GFR 30-59 ml/min (H) Relevant Orders Adult Urology Brick Burner Referral - To a [facility] Location (Use POS/Location) History of primary malignant neoplasm of urinary bladder Relevant Orders Adult Urology Brick Burner Referral - To a [facility] Location (Use POS/Location) Other Visit Diagnoses Other specified hypotension - Primary Relevant Orders Home Blood Pressure Monitor Order for DME - ONLY FOR DME Adult Urology Brick Burner Referral - To a [facility] Location (Use POS/Location) Tired Relevant Orders VENOUS COLLECTION (Completed) HEMOGRAM PLATELET DIFF (BFP) Basic Metabolic Panel (BFP) Adult Urology Brick Burner Referral - To a [facility] Location (Use POS/Location) Other urinary incontinence Relevant Orders Adult Urology Brick Burner Referral - To a [facility] Location (Use POS/Location) At risk for falls Relevant Orders Miscellaneous DME Supply Order (Use only if a more specific DME order does not already exist) Walker as ambulation aid Relevant Orders Miscellaneous DME Supply Order (Use only if a more specific DME order does not already exist) 1. Other specified hypotension (Primary) Blood pressure cuff prescription written at her request. I would recommend that she use an arm monitor. Low blood pressure. She has already been in touch with cardiology. I advise that she call them with her low blood pressure reading here today to discuss medication changes they may want to make. - Home Blood Pressure Monitor Order for DME - ONLY FOR DME - Adult Urology Brick Burner Referral - To a [facility] Location (Use POS/Location) 2. Tired Check labs. - VENOUS COLLECTION - HEMOGRAM PLATELET DIFF (BFP) - Basic Metabolic Panel (BFP) - Adult Urology Brick Burner Referral - To a [facility] Location (Use POS/Location) 3. Other urinary incontinence She has a history of ckd, bladder cancer. Now having sx for over a year, urinary incontinence, referral to urology for evaluation. - Adult Urology Brick Burner Referral - To a [facility] Location (Use POS/Location) 4. Stage 3 chronic kidney disease, unspecified whether stage 3a or 3b CKD (H) - Adult Urology Brick Burner Referral - To a [facility] Location (Use POS/Location) 5. History of primary malignant neoplasm of urinary bladder - Adult Urology Brick Burner Referral - To a [facility] Location (Use POS/Location) 6. At risk for falls She is requesting a prescription for fall alert necklace. - Miscellaneous DME Supply Order (Use only if a more specific DME order does not already exist) 7. Walker as ambulation aid - Miscellaneous DME Supply Order (Use only if a more specific DME order does not already exist) FUTURE APPOINTMENTS: - Follow-up visit as needed. We manage her chronic medical care. No follow-ups on file. Gavi Cloud MD [facility] Subjective Nursing Notes: Blue Emmanuel MA 02/23/2025 1:25 PM Signed Chief Complaint Patient presents with Dme DME orders for BP cuff. Per her insurance, she can get a fall alert necklace. She had an infusion today and her BP was 87/47 there. Pre-visit Screening: Immunizations: not up to date - pt declined Colonoscopy: NA Mammogram: is up to date Asthma Action Test/Plan: NA PHQ9: NA GAD7: NA Questioned patient about current smoking habits Pt. has never smoked. Ok to leave detailed message on voice mail for today's visit only yes, phone # [phone] (home) Griselda Lai is a 80 year old female who presents to clinic today for the following health issues HPI Here for low blood pressure. Not dizzy or lightlheaded. Is feeling ok otherwise, just tired. Needs a new bp cuff, as her old one is too old and she can't get a reliable. Reading. She has been in touch with her vacuum technician, who told her to check this for a week and let them know. She will be in touch with them. She wants to know if there is a pill for urinary incontinence. When she stands up she leaks a lot. She hasn't tried anything in the past. She has a history bladder cancer. This is a new sx in the past 1-2 years. Hasn't seen urology in the past 10 years. Wants an order for fall alert necklace Review of Systems Constitutional, HEENT, cardiovascular, pulmonary, gi and gu systems are negative, except as otherwise noted. Objective BP 92/54 (BP Location: Right arm, Patient Position: Sitting, Cuff Size: Adult Large) Pulse 75 Temp 97.2 ??F (36.2 ??C) (Temporal) SpO2 95% There is no height or weight on file to calculate BMI. Physical Exam GENERAL: alert and no distress RESP: lungs clear to auscultation - no rales, rhonchi or wheezes CV: regular rate and rhythm, normal S1 S2, no S3 or S4, no murmur, click or rub, no peripheral edema MS: no gross musculoskeletal defects noted, no edema PSYCH: mentation appears normal, affect normal/bright Walks with walker No results found for this or any previous visit (from the past 24 hours). IS THERAPIST documented in this encounter Nursing Notes * Blue Emmanuel MA - 02/23/2025 1:15 PM CST Chief Complaint Patient presents with Dme DME orders for BP cuff. Per her insurance, she can get a fall alert necklace. She had an infusion today and her BP was 87/47 there. Pre-visit Screening: Immunizations: not up to date - pt declined Colonoscopy: NA Mammogram: is up to date Asthma Action Test/Plan: NA PHQ9: NA GAD7: NA Questioned patient about current smoking habits Pt. has never smoked. Ok to leave detailed message on voice mail for today's visit only yes, phone # [phone] (home) IS THERAPIST documented in this encounter Plan of Treatment NamePriorityAssociated DiagnosesDate/TimeENDOSCOPIC RETROGRADE CHOLANGIOPANCREATOGRAPHY, COMPLEX Cholecystitis Choledocholithiasis with acute cholecystitis NameTypePriorityAssociated DiagnosesOrder ScheduleAdult Urology Brick Burner Referral - To a [facility] Location (Use POS/Location)Referral Routine: Next available opening Other specified hypotension Tired Other urinary incontinence Stage 3 chronic kidney disease, unspecified whether stage 3a or 3b CKD (H) History of primary malignant neoplasm of urinary bladder Ordered: 02/23/2025documented as of this encounter Procedures Procedure NamePriorityDate/TimeAssociated DiagnosisCommentsPR COLLECTION VENOUS BLOOD SCAGSDKVEKIKZevwday14/17/2025 1:34 PM CRISIS THERAPIST Tired HEMOGRAM PLATELET DIFF (BFP)Jkpfyos1202/23/2025 Tired BASIC METABOLIC PANEL (BFP)Tuqnrll3302/23/2025 Tired documented in this encounter Results * (ABNORMAL) Basic Metabolic Panel (BFP) (02/23/2025)ComponentValueRef RangeTest MethodAnalysis TimePerformed AtPathologist SignatureCarbon Hrpmggl08.820 - 32 mmol/LBFP INTERNALCreatinine1.240.60 - 1.30 mg/dLBFP EEGTUDSLBbsxxgr245(A)60 - 99 mg/dLBFP HTXMYHIGWivxyn690.8135 - 146 mmol/LBFP INTERNALPotassium3.893.5 - 5.3 mmol/LBFP LRFRKUKNUtnieymm378.498 - 110 mmol/LBFP INTERNALUrea Sdnsbbud410 - 25 mg/dLBFP INTERNALCalcium9.38.6 - 10.3 mg/dLBFP INTERNALBUN/Creatinine Wrvnn027 - 32BFP INTERNALGFR Inkalvau62(A)>60 ml/min/1.53e8SKV INTERNAL Specimen (Source)Anatomical Location / LateralityCollection Method / Volume Collection TimeReceived OfscXlqqd99/17/2025 Narrative Authorizing ProviderResult TypeResult Patricia Cloud MDLAB - NON-BEAKER BLOOD LABSFinal ResultPerforming OrganizationAddressCity/State/ZIP CodePhone Number [facility] [address] [phone] * (ABNORMAL) HEMOGRAM PLATELET DIFF (BFP) (02/23/2025)ComponentValueRef Range Test MethodAnalysis TimePerformed AtPathologist SignatureWBC4.44.0 - 11 10*9/L BFP INTERNALRBC Count3.61(A)3.8 - 5.2 10*12/LBFP EJUDDYWRZqsjbhnuhd85.311.7 - 15.7 g/dLBFP TQEURJLEGpzmqqmfrp66.735.0 - 47.0 %BFP ZSKPCUVFNIJ55.878 - 100 fL BFP RWNJHNSEAYY22.1(A)26 - 33 pgBFP RZBDMPJIVCNQ36.531 - 36 g/dLBFP INTERNAL Platelet Sukpl674(A)150 - 375 10^9/LBFP INTERNAL% Rfzpuadfhbgn78.6%BFP INTERNAL% Fwyasoipohq361.4%BFP INTERNAL% Gnyazvrjz10.0%BFP INTERNALSpecimen (Source)Anatomical Location / LateralityCollection Method / VolumeCollection TimeReceived SjyzGrukv94/17/2025 Narrative Authorizing ProviderResult TypeResult StatusGaiv Cloud MDLAB - JERRY-BEAKER BLOOD LABSFinal ResultPerforming OrganizationAddressCity/State/ZIP CodePhone Number [facility] [address] [place] [phone] documented in this encounter Visit Diagnoses Diagnosis Other specified hypotension- Primary Tired Other malaise and fatigue Other urinary incontinence Stage 3 chronic kidney disease, unspecified whether stage 3a or 3b CKD (H) History of primary malignant neoplasm of urinary bladder Personal history of malignant neoplasm of bladder At risk for falls Personal history of fall Walker as ambulation aid Reserved for inherently not codable concepts WITHOUT codable children documented in this encounter Additional Health Concerns AssessmentNoted TimePHQ-9 Depression Total Score: 7104/26/2024 2:16 PM CRISIS THERAPIST documented as of this encounter Care Teams Team MemberRelationshipSpecialtyStart DateEnd Date Gavi Cloud MD [address] [address] PCP - GeneralFamily Medicine08/17/24 Hector Goode MD [address] [id number] Neurolog05/01/17 John Cancino MD [address] [place] [id number] MDFamily Medicine - Sports Medicine07/30/17 Rivas Delcid MD [address] [facility] [address] [place] [address] Assigned Surgical Kricpehu89/23/24 Blue Mensah MD Assigned Heart and Vascular Zurzfpdg68/23/25 Gavi Cloud MD [address] [facility] [address] [place] [address] Assigned PCP11//documented as of this encounter
--- OUTSIDE RECORDS SUMMARY | 2025-03-09 12:58 | XMS_ITS | Encounter Summary ---
Author Organization [place] Address [address] [facility] [place] [address] Care Team Providers Care Systematic Theology Professor Name Role Phone Hector Goode MD Unavailable John Cnacino MD Unavailable [phone] Rivas Delcid MD Unavailable Gavi Cloud MD Primary Care Provider [phone] Blue Mensah MD Unavailable Un available Gavi Cloud MD Unavailable [phone] Reason for Visit * ReasonOnset DateCommentsCall Back02/17/2025Discuss Low BP Encounter Details DateTypeDepartmentCare Team (Latest Contact Info)Wxvbahadugx08/11/2025Telephone [facility] [address] [address] Blue Mensah MD Call Back (Discuss Low BP) Social History Tobacco UseTypesPacks/DayYears UsedDateSmoking Tobacco: NeverPassive [...] in an abandoned building, in an overnight alf, or couch-surfing.)Yes02/02/2024re you worried about losing your [...] InformationValueDate RecordedSex Assigned at BirthNot on fileLegal OxrEibtty27/04/2012 2:58 AM CSTGender IdentityNot on file Sexual OrientationNot on filedocumented as of this encounter Miscellaneous Notes * Telephone Encounter - Heidy Cruz RN - 02/17/2025 11:11 AM CST Spoke with patient. Patient states that she has been tired recently, but hasn't been able to check her BP due to her BP cuff being out of batteries. Patient plans to get new batteries for her BP cuff. Advised patient to take her BP daily for about 1 week, at least 2 hours after medications. Advisedpatient to call us if her BP readings are consistently less than 100 systolic. Patient verbalized understanding and agreed with plan of care. ERER AND WIRER * Telephone Encounter - Alex Paco - 02/17/2025 11:00 AM CST [facility] Phone Message May a detailed message be left on voicemail: yes Reason for Call: Other: Yoana called requesting to speak with her care team about some low blood pressure she was experiencing yesterday but states she feels fine, mostly tired. Please reach out to Yoana to discuss. Thank you! Action Taken: Other: Cardiology Travel Screening: Not Applicable Thank you! Specialty [facility] Center Date of Service: ERER AND WIRER documented in this encounter Plan of Treatment NamePriorityAssociated DiagnosesDate/TimeENDOSCOPIC RETROGRADE CHOLANGIOPANCREATOGRAPHY, COMPLEX Cholecystitis Choledocholithiasis with acute cholecystitis documented as of this encounter Visit Diagnoses Not on filedocumented in this encounter Additional Health Concerns AssessmentNoted TimePHQ-9 Depression Total Score: 8004/30/2023 2:24 PM NUMBERER AND WIRER documented as of this encounter Care Teams Team MemberRelationshipSpecialtyStart DateEnd Date Gavi Cloud MD [address] [facility] [address] [place] [address] PCP - GeneralFamily Medicine08/17/24 Hector Goode MD [address] [place] [address] Neurology2 John Cancino MD [address] [place] [address] MDFamily Medicine - Sports Medicine07/30/17 Rivas Delcid MD [address] [facility] [address] [place] [address] Assigned Surgical Earzydiz20/23/24 Blue Mensah MD Assigned Heart and Vascular Kejzzinj66/23/25 Gavi Cloud MD [address] [facility] [address] [place] [address] Assigned PCP01/30documented as of this encounter
--- OUTSIDE RECORDS SUMMARY | 2025-03-09 12:58 | XMS_ITS | Data Portability ---
Author Organization [facility], [facility] Address [address] [place] [address] Care Team Providers Care Associate Professor Of Media Arts Name Role Phone GEOVANNIGAVI Referring Provider Assessment No assessment recorded. Plan of Treatment Reminders Order DateSubmit DateProviderLast Modified ByOrganization DetailsLast Modified TimeDetailsAppointmentsNone recorded.Laburinalysis, giexsgca45 lsitnikovaPierce_serafin, [address], [place], [address], 44 11:28:37ReferralNone recorded.ProceduresNone recorded. SurgeriesNone recorded.ImagingCT, yhzjtge50[facility], [address] [place], [address], 01/15/2024 12:00:18Medication OrdersNone recorded. Patient TargetsNo targets recorded. Patient InstructionsNo instructions recorded. Reason for Referral None Reported. Results Created Date Observation Date Name Description Value Unit Range Abnormal Flag Note LastModifiedBy Organization Detail LastModifiedTime 01/15/2024 01/15/2024 urinalysis, dipstick BLOOD Trace ( 5 RBC/uL) Not AvailablePierce_serafin [address], [place], [address], 02 10:59:4011urinalysis, dipstickBILIRUBINSmall (0.5 mg/dL)Not AvailableUa_[facility] [address], [place], [address], [address] 10:59:/urinalysis, dipstickUROBILINOGEN1.0 mg/dLNot AvailableUa_[facility] [address], [place], [address], [address] 10:59:/urinalysis, dipstickKETONESNegativeNot Available [facility] [address], [place], [address], [address] 10:59:/urinalysis, dipstickPROTEINNegativeNot Available [facility] [address], [place], [address], [address] 10:59:/urinalysis, dipstickNITRITESNegativeNot Available [facility] [address], [place], [address], [address]/09/2023 10:59:urinalysis, dipstickGLUCOSENegativeNot Available [facility] [address], [place], [address], [address] 10:59:urinalysis, dipstickp.H.5.5Not AvailableUa_[facility] [address], [place], [address], [address]/09/2023 10:59:urinalysis, dipstickS.G. (Specific Mcintosh)1.025Not AvailableUa_edina [address], [place], [address], 11/09/2023 10:59:401urinalysis, dipstickLEUKOCYTESNegativeNot Available [facility] [address], [place], [address], 11/09/2023 10:59:4014CT, abdomen + pelvis, w/o contrastEXAM: CT, ABDOMEN + PELVIS, W/O CONTRAST LOCATION: [facility] DATE: 01/23/2024 INDICATION: Gross hematuria COMPARISON: 04/07/2014. [...] identified on either side. Normal unenhanced bladder. BOWEL:No obstruction or inflammatory change. Tiny duodenal diverticula. Normal appendix. LYMPH NODES: No lymphadenopathy. VASCULATURE: Mild atherosclerosis without abdominal aortic aneurysm. PELVIC ORGANS:Calcified/degenerative uterine fibroids without suspicious pelvic mass. MUSCULOSKELETAL: No aggressive osseous lesion. Lumbar spondylosis. IMPRESSION: 1. A 3 mm stone at the left ureteropelvic junction does not result in urinary obstruction. 2. Small cluster of infectious or inflammatory left lowerlobe bronchiolitic nodules. This report was electronically interpreted by: Augusto Lindsey MD on 01/23/2024 at 15:66wwkvdhou4Gqrumjt Radiology [facility] [address] [place], [place] [address], [place], [address], 01/26/2024 12:08:25 Result Notes Documentation Provider Name and Address Organization D etails Recorded Time Ct, Abdomen + Pelvis, W/o Co ntrast : EXAM: CT, ABDOMEN + PELVIS, W/O CONTRAST LOCATION: [facility] DATE: 01/23/2024 INDICATION: Gross hematuria COMPARISON: 04/07/2014. [...] Lindsey MD on 01/23/2024 at 15:10 Yessi Perez [facility] Ulunjws79/18/2024 12:08:25 Problems Name Problem SNOMED Code Status Onset Date Resolution Date Notes Provider Name and Address Organization Details Recorded Time History of primary malignant neoplasm of urinary bladder 677190887 Active 09/26/2011 V10.51 : PERSONAL HX BLADDER CANot LrndhpgmlEcyzxeIwzrgu88/18/2020 01:54:58 Problem Notes None recorded. Procedures Surgical History Date Name Laterality Status Provider Name and Address Organization Details Recorded Time 01/15/2024 CystoscopyFemalwellington Stewart MD [address] [facility],[address], [place], [address], [facility] [place] Nnsymsp41/07/2024 11:19:2311/07/2024Bladder ScancompletedSizabella RichardsChildren[facility] Dksiett18/07/2024 11:04:32 Imaging Results None recorded. Procedure Notes None recorded. Medical Equipment None Reported. Allergies Allergen ID Allergen Name Allergen Category Reaction Reaction Severity Criticality Documentation Date Start Date Code Code System Note Provider Name and Address Organization Details Recorded Time 026251 cortisone medication Not available Not available Not [id number]: Shock/UnconsciousnessNot CksxryqhwOdtvehBwgylu98/18/2020 00:42:89579249Hmkxgeekz with sulfonamide structure and antibacterial mechanism of action (substance)medicationNot available Not available Not bdillmghk95/07/9907514221076IZSAXXJyxxd [place] [address]103/16/2023 10:53:39 Medications Name Sig Start Date Stop Date Status Note LastModified by Organization Details LastModified Time celecoxib 200 mg capsule TAKE 1 CAPSULE BY MOUTH EVERY DAY NEEDED 01/15/2024ompletedNot AvailableNot AvailableNot Availablecarvedilol 12.5 mg tabletactiveNot AvailableNot AvailableNot Availablehydrocodone 5 mg- acetaminophen 325 mg tabletTAKE 1 TABLET EVERY 6 HOURS NEEDED FOR PAINactive Not AvailableNot AvailableNot Availablemeloxicam 15 mg tabletTAKE 1 TABLET BY MOUTH EVERY DAY WITH FOOD01/15/2024ompletedNot AvailableNot AvailableNot Availableprednisone 5 mg tabletTAKE 1 DAILY WITH FOUR 1 MG TABS FOR 9 MG TOTAL DAILY DOSE X 2 WEEKS, DECREASE BY 1 MG EVERY 2 WEEKSactiveNot AvailableNot AvailableNot Availableomeprazole 40 mg capsule,delayed releaseTAKE 1 CAPSULE (40 MG) BY MOUTH DAILY NEEDED (HEARTBURN)activeNot AvailableNot AvailableNot Availablespironolactone 25 mg tabletactiveNot AvailableNot AvailableNot Availableprednisone 1 mg tabletTAKE WITH 5MG TABS FOR TOTAL OF 9MG DAILY THEN DECREASE BY 1MG EVERY 4 WEEKS.activeNot AvailableNot AvailableNot Available diazepam 2 mg tabletTAKE 1 TABLET (2 MG) BY MOUTH 20-30 MINUTES PRIOR TO YOUR DVXZBRACD55/07/2024ompletedNot AvailableNot AvailableNot Availablemisoprostol 200 mcg tabletINSERT 1 TABLET (200 MCG) VAGINALLY THE NIGHT PRIOR TO PROCEDURE 01/15/2024ompletedNot AvailableNot AvailableNot Availablesertraline 25 mg tabletTAKE 1 TABLET BY MOUTH EVERY DAY4completedNot AvailableNot AvailableNot Availableirbesartan 75 mg tabletactiveNot AvailableNot AvailableNot Availablefurosemide 20 mg tabletTAKE 1 TABLET DAILY PLUS 1 ADDITIONAL TABLET NEEDEDFOR EDEMA/SHORTNESS OF BREATHactiveNot AvailableNot AvailableNot Available betaxolol 0.5 % eye dropsINSTILL 1 DROP INTO RIGHT EYE TWICE A DAYactiveNot AvailableNot AvailableNot Availablemethylprednisolone 4 mg tablets in a dose packTAKE 6 TABLETS ON DAY 1 DIRECTED ON PACKAGE AND DECREASE BY 1 TAB EACH DAY FOR A TOTAL OF 6 DAYS01/15/2024ompletedNot AvailableNot AvailableNot Availableondansetron 4 mg disintegrating tabletTAKE 1 TABLET BY MOUTH EVERY 8 HOURS NEEDED FOR MCXDCO6701/15/2024ompletedNot AvailableNot AvailableNot Availablesertraline 50 mg tabletTAKE 1.5 TABLETS BY MOUTH DAILYactiveNot AvailableNot AvailableNot Availabledorzolamide 2 % eye dropsINSTILL 1 DROP INTO RIGHT EYE TWICE A DAYactiveNot AvailableNot AvailableNot Available cyclobenzaprine 5 mg tabletTAKE 1 TABLET BY MOUTH 3 TIMES DAILY NEEDED FOR MUSCLE ZWUKFW1503/16/2023ompletedNot AvailableNot AvailableNot AvailableGleevec 400 mg tabletactiveNot AvailableNot AvailableNot Availablerosuvastatin 5 mg tabletactiveNot AvailableNot AvailableNot AvailableKlor-Con M10 mEq tablet,extended releaseactiveNot AvailableNot AvailableNot AvailableAsmanex Twisthaler 220 mcg/actuation(60 doses) breath activated inhalrUSE 1 INHALATION BY MOUTH ONCE EVERY DAY AT NIGHTTIME. RINSE MOUTH AND SPIT AFTER USE OR BRUSH TEETH*activeNot AvailableNot AvailableNot Availablediclofenac 1 % topical gel APPLY (2G) BY TOPICAL ROUTE 3 TIMES EVERY DAY TO THE AFFECTED AREA(S) NEEDED FOR OAactiveNot AvailableNot AvailableNot AvailableActemraactiveNot AvailableNot AvailableNot Availabletafluprost (PF) 0.0015 % eye drops in a dropperetteINSTILL 1 DROP INTO RIGHT EYE NIGHTLYactiveNot AvailableNot AvailableNot Available Arnuity Ellipta 100 mcg/actuation powder for cxodxllzuj33/07/2024ompletedNot AvailableNot AvailableNot Available Vitals Date Recorded Body height Body mass index (BMI) Body weight Provider Name and Address Organization Details Last Updated DateTime 01/15/2024 162.56 cm 37.8 kg/m2 71116.32 g Beatriz Richards [facility] 01/15/2024 10:53:23 Social History Question Answer Notes LastModified by Organization D etails LastModified Time Tobacco Smoking Status Never Smoker Beatriz benitez, [place] [address]03/16/2023 10:57:07What Was The Date Of Your Most Recent Tobacco Screening?01/15/20242335hlozyfu47Aqeacunllkf not cbdloogxi79/07/2024 Sex: Unknown Functional Status Question Answer Note LastModified by Organization D etails LastModified Time What is your level of alcohol consumption? None lqyqgny38Hsvzubmhlht not ptdpkrqfo35/07/2024 Mental Status None recorded. Family History Nothing Reported. Medical History No medical history recorded. Gynecological HistoryNo gynecological history recorded. Obstetrics History GPAL:G 0 P 0 0 0 0 Immunizations Vaccine Type Date Status Note Provider Nam e and Address Organization Details Recorded Time Influenza, split virus, quadrivalent, preservative completed Beatriz benitez, [place] [address]03/16/2023 10:53:30Influenza, high-dose, quadrivalent, PF 1[facility], [place] [address]03/16/2023 10:53:31Influenza, high-dose, quadrivalent, PF 2completed[facility], [place] [address]/16/2023 10:53:31Influenza, high-dose, quadrivalent, PF 01/06/2020completedSara Maurice null, [place] [address]03/16/2023 10:53:31Influenza, high-dose, quadrivalent, PF 3completedSyakima valley [facility] hospital [facility], [place] [address]/16/2023 10:53:31COVID-19, mRNA, LNP-S, PF, 30 mcg/0.3 mL dose1completeSololanette Richards null, [facility] Vxbeibd23/07/2024 10:53:31COVID-19, mRNA, LNP-S, PF, 30 mcg/0.3 mL dose05/20/2020ompleteSuyakima valley memorial hospital Maurice null, [facility] Xmdnduw87/07/2024 10:53:31COVID-19, mRNA, LNP-S, PF, 30 mcg/0.3 mL dose09/25/2021ompleteSumayo clinic [facility] ([place])lanette Ricahrds null, [place] [address]/16/2023 10:53:31COVID-19, mRNA, LNP-S, PF, 30 mcg/0.3 mL dose01/12/2021[address]pleteCH[facility] Maurice null, [facility] Hqerpme99/07/2024 10:53:31COVID-19, mRNA, LNP-S, bivalent, PF, 30 mcg/0.3 mL dose02/12/2022ompleteSuyakima valley memorial hospital Maurice null, [place] [address]03/16/2023 10:53:31COVID-19, mRNA, LNP-S, PF, yokasta- sucrose, 30 mcg/0.3 mL01/21/2023ompleteSt. Louis Children's Hospitallanette Richards null, [place] [address]03/16/2023 10:53:31pneumococcal polysaccharide PPV23 12/19/2006com[facility], [place] [address]/16/2023 10:53:31pneumococcal polysaccharide PPV23 01/23/2018comUniversity [facility], [place] [address]03/16/2023 10:53:31Novel Navaqybku-L6O4-88, all nmiegikyizzk72/03/2009comUniversity [facility], [place] [address]03/16/2023 10:53:31Pneumococcal conjugate PCV 13104/21/2011 [facility] Maurice null, [place] [address]03/16/2023 10:53:31zoster live02/26/2007comUniversity [facility] Maurice null, [place] [address]03/16/2023 10:53:31Influenza, high-dose, trivalent, PF 12/25/2015completAl[facility] Maurice null, [place] [address]03/16/2023 10:53:31Influenza, high-dose, trivalent, PF 01/16/2019completAllegheny Health Network Maurice null, [place] [address]03/16/2023 10:53:31Influenza, split virus, trivalent, tpmhsvmpbkof32/14/2009completAllegheny Health Network Maurice null, [facility] Nnetbmd60/07/2024 10:53:31Influenza, split virus, trivalent, qflcbgztngvi68/08/2004completAllegheny Health Network Maurice null, [facility] Gkjqski37/07/2024 10:53:31Influenza, split virus, trivalent, qayhwexyftkm43/09/2003comUniversity [facility] Maurice null, [facility] Emgbvge52/07/2024 10:53:31Influenza, split virus, trivalent, hpaymtxurbzi04/12/2007comUniversity [facility] Maurice null, [place] [address]03/16/2023 10:53:31Influenza, split virus, trivalent, mumbusxqpdfb66/13/1999comUniversity [facility] Maurice null, [place] [address]03/16/2023 10:53:31Influenza, split virus, trivalent, nydownggcjtv97/22/2001completAllegheny Health Network Maurice null, [facility] Khxekea99/07/2024 10:53:31Influenza, split virus, trivalent, wxescmotimsk58/26/2006completAllegheny Health Network Maurice null, [facility] Opyogpf50/07/2024 10:53:31Influenza, split virus, trivalent, apfzoaastxsy47/29/2008completAllegheny Health Network Maurice null, [facility] Yikzbdm59/07/2024 10:53:31Influenza, split virus, trivalent, hljmorgaosjc15/21/2000completAllegheny Health Network Maurice null, [facility] Uqulidt37/07/2024 10:53:31Influenza, split virus, trivalent, PF 12/06/2009completAllegheny Health Network Maurice null, [place] [address]03/16/2023 10:53:31Influenza, split virus, trivalent, PF 12/19/2011completAllegheny Health Network Maurice null, [facility] Ccsvvgh97/07/2024 10:53:31Td (adult), 5 Lf tetanus toxoid, preservative free, eyeuksig87/26/2010completNiobrara Health and [facility] - Lusklanette benitez, [facility] Xkcbvby66/07/2024 10:53:31Influenza, split virus, quadrivalent, PF11/29/2016completedSizabella benitez, [facility] Kbzqxfb81/07/2024 10:53:31Influenza, split virus, quadrivalent, PF12/30/2014completedSizabella benitez, [facility] Igzaqkz13/07/2024 10:53:31Influenza, split virus, quadrivalent, PF01/23/2018completedSmayo clinic [place])lanette benitez, [facility] Aqwxtdj80/07/2024 10:53:31 Past Encounters Encounter ID Performer Location Encounter Start Date Encounter Closed Date Diagnosis/Indication Diagnosis SNOMED-CT Code Diagnosis ICD10 Code Diagnosis IMO Codes Diagnosis Note [id number] Dong Stewart MD [facility] [address] [place] [address] 01/15/2024 10:39:58 01/16/2024 11:03:16 Juan C hematuria [id number] R31.0 Based on 2020 AUA micro-hematuria guidelines, I recommend cystoscopy and axial upper tract imaging in patients with micro-hematuria categorized as high-risk for malignancy (age more than 60, strong family history, strong smoking history, environmental exposure, voiding symptoms, h/o chemo/radiation, bladder irritants). In case of negative results, she would need her next UA check in one year and return in 3-5 years unless she develops additional voiding symptoms including gross hematuria For persistent or recurrent asymptomatic microhematuria after initial negative urologic work-up, repeat evaluation within three to five years should be considered With normal CT urogram her micro-hematuria might be coming from vaginal dryness ( lichen sclerosis) Health Concerns Section Related Observation LastModified by Organization Detai ls LastModified Time None Recorded Concern Status LastModified by Organization Details LastModified Time None Recorded Advance Directives Directive None Recorded Payers Insurance Date Sequence Insurance Name Policy Number Policy Bach Covered Member ID Bach Member ID Guarantor Name 01/12/2024 1 [place]ICARE [place]: [facility] Griselda [id number] K [id number] K [id number] K Preston Notes Date Note Type Note Provider Name and Address Hmuphrey butcher Details Recorded Time 01/15/2024 text/html 79 YO F referred by Dr. Gavi Cloud MD ([facility]) for evaluation of hematuria w/ [...] sore at the perineum Dong Stewart MD [address] [facility],[address], [place], [address], [place] - [place] Xygoygc57/07/2024 11:28:42 OBGyn Episode No OBEpisode recorded.
--- OUTSIDE RECORDS SUMMARY | 2025-03-09 12:58 | XMS_ITS | Encounter Summary ---
Author Organization [place] Address [facility] [place] [address] Care Team Providers Care Forensic Photographer Name Role Phone Hector Goode MD Unavailable John Cancino MD Unavailable [phone] Rivas Delcid MD Unavailable Gavi Cloud MD Primary Care Provider [phone] Blue Mensah MD Unavailable Un available Jasmin Maradiaga PA-C Unavailable [phone] Reason for Visit * ReasonCommentsMedication Refill Encounter Details DateTypeDepartmentCare Team (Latest Contact Info)Jmlfbvrpaft46/17/2025Refill [facility] [address] [phone] Jasmin Maradiaga PA-C [facility] [address] [place] [address] Medication Refill Social History Tobacco UseTypesPacks/DayYears UsedDateSmoking Tobacco: NeverPassive [...] in an abandoned building, in an overnight assisted, or couch-surfing.)Yes02/02/2024re you worried about losing your [...] InformationValueDate RecordedSex Assigned at BirthNot on fileLegal BsvPgscwm47/04/2012 2:58 AM CSTGender IdentityNot on file Sexual OrientationNot on filedocumented as of this encounter Miscellaneous Notes * Telephone Encounter - Alexa Saldana MA - 01/26/2025 3:12 PM CST No call back Alexa CLE SERVICE ATTENDANT * Telephone Encounter - Alexa Saldana MA - 01/25/2025 11:57 AM CST LMOM to call back to relay message below Alexa CLE SERVICE ATTENDANT * Telephone Encounter - Jasmin Maradiaga PA-C - 01/25/2025 11:11 AM VEHICLE SERVICE ATTENDANT Refilled 90 day supply. Would like her to schedule a non-fasting medication check prior to further refills as we haven't done a recent medication check just several hospital/acute/pre-op visits. CLE SERVICE ATTENDANT * Telephone Encounter - Alexa Saldana MA - 01/25/2025 10:18 AM CST Pending Prescriptions: Disp Refills sertraline (ZOLOFT) 50 MG tablet [Pharmac*135 ta* Sig: TAKE 1.5 TABLETS BY MOUTH ONCE DAILY This med was discussed at preop visit 11-09-2024 Last med check was 12-08-2024 f/u as needed Is pt due for ov? 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 documented in this encounter Additional Health Concerns AssessmentNoted TimePHQ-9 Depression Total Score: 8004/30/2023 2:24 PM VEHICLE SERVICE ATTENDANT documented as of this encounter Care Teams Team MemberRelationshipSpecialtyStart DateEnd Date Gavi Cloud MD [address] [facility] [address] [place] [address] PCP - GeneralFamily Medicine08/17/24 Hector Goode MD [address] [place], [place] [address] [address] Annaurolog05/01/17 John Cancino MD [address] [address] Family Medicine - Sports Medicine07/30/17 Rivas Delcid MD [address] [facility] [address] [place] [address] Assigned Surgical Wgquejda09/23/24 Blue Mensah MD Assigned Heart and Vascular Gbhufqeo86/23/25 Jasmin Maradiaga PA-C [address] [facility] [address] [place] [address] Assigned PCP01/06documented as of this encounter
--- OUTSIDE RECORDS SUMMARY | 2025-03-09 12:58 | XMS_ITS | Encounter Summary ---
Author Organization [place] Address [facility] [place] [address] Care Team Providers Care Sprinkler Truck Driver Name Role Phone Hector Goode MD Unavailable John Cancino MD Unavailable [phone] Rivas Delcid MD Unavailable Gavi Cloud MD Primary Care Provider [phone] Blue Mensah MD Unavailable Un available Jasmin Maradiaga PA-C Unavailable [phone] Encounter Details DateTypeDepartmentCare Team (Latest Contact Info)Ztdzlfebyin03/26/2025Results Follow-Up [facility] [address] [place] [address] Gavi Cloud MD [address] [place] [address] Social History Tobacco UseTypesPacks/DayYears UsedDateSmoking Tobacco: NeverPassive Smoke Exposure: NeverSmokeless Tobacco: NeverAlcohol UseStandard Drinks/WeekCommentsNo 0 (1 standard drink = 0.6 oz pure alcohol)PHQ-2AnswerDate RecordedPHQ-2 Score3 5Adolescent EducationAnswerDate RecordedGetting School Help NeededNot on file12/05/2022Food [...] in an abandoned building, in an overnight correction, or couch-surfing.)Yes02/02/2024re you worried about losing your [...] InformationValueDate RecordedSex Assigned at BirthNot on fileLegal BtvFixlqc23/04/2012 2:58 AM CSTGender IdentityNot on file Sexual OrientationNot on filedocumented as of this encounter Plan of Treatment NamePriorityAssociated DiagnosesDate/TimeENDOSCOPIC RETROGRADE CHOLANGIOPANCREATOGRAPHY, COMPLEX Cholecystitis Choledocholithiasis with acute cholecystitis documented as of this encounter Visit Diagnoses Not on filedocumented in this encounter Additional Health Concerns AssessmentNoted TimePHQ-9 Depression Total Score: 7104/26/2024 2:16 PM SVP OF DIGITAL documented as of this encounter Care Teams Team MemberRelationshipSpecialtyStart DateEnd Date Gavi Cloud MD [address] [facility] [address] [place] [address] PCP - GeneralFamily Medicine08/17/24 Hector Goode MD [address] [facility], [place] [address] Neurolog05/01/17 John Cancino MD [address] [address] MDFamily Medicine - Sports Medicine07/30/17 Rivas Delcid MD [address] [facility] [address] [place] [address] Assigned Surgical Gdwjhjjg74/23/24 Blue Mnesah MD Assigned Heart and Vascular Peamvogd77/23/25 Jasmin Maradiaga PA-C [address] , [address] [address] Assigned PCP03/01/25documented as of this encounter
--- OUTSIDE RECORDS SUMMARY | 2025-03-09 12:58 | XMS_ITS | Encounter Summary ---
Author Organization [place] Address [facility] [place] [address] Care Team Providers Care Senior Marketing Analyst Name Role Phone Hector Goode MD Unavailable John Cancino MD Unavailable Rivas Delcid MD Unavailable Gavi Cloud MD Primary Care Provider Blue Mensah MD Unavailable Un available Gavi Cloud MD Unavailable [phone] Jasmin Maradiaga PA-C Unavailable [phone] Reason for Visit * ReasonOnset RewqRslkuouaVmwhzj16/22/2025Walker Encounter Details DateTypeDepartmentCare Team (Latest Contact Info)Fzohoqrmxpo06/22/2025Telephone [facility] [address] [place] [phone] Jasmin Maradiaga PA-C [address] [place] [address] [phone] Orders ([place]) Social History Tobacco UseTypesPacks/DayYears UsedDateSmoking Tobacco: NeverPassive [...] in an abandoned building, in an overnight senior care, or couch-surfing.)Yes02/02/2024re you worried about losing your [...] InformationValueDate RecordedSex Assigned at BirthNot on fileLegal ZvrYqtpjy06/04/2012 2:58 AM CSTGender IdentityNot on file Sexual OrientationNot on filedocumented as of this encounter Miscellaneous Notes * Telephone Encounter - Jasmin Maradiaga PA-C - 03/02/2025 12:35 PM MANAGER PHARMACEUTICAL Addended 12/2024 office visit to reflect questions on DME. Suzanne faxed back DME for walker and OV. GER PHARMACEUTICAL * Telephone Encounter - Suzanne Reynaga CMA - 02/28/2025 8:22 AM MANAGER PHARMACEUTICAL Please see insurance guidelines for walker order and addend the chart if needed from 12/08/24 OV GER PHARMACEUTICAL documented in this encounter Plan of Treatment NamePriorityAssociated DiagnosesDate/TimeENDOSCOPIC RETROGRADE CHOLANGIOPANCREATOGRAPHY, COMPLEX Cholecystitis Choledocholithiasis with acute cholecystitis documented as of this encounter Visit Diagnoses Not on filedocumented in this encounter Additional Health Concerns AssessmentNoted TimePQ-9 Depression Total Score: 7104/26/2024 2:16 PM MANAGER PHARMACEUTICAL documented as of this encounter Care Teams Team MemberRelationshipSpecialtyStart DateEnd Date Gavi Cloud MD [address] [facility] [address] [place] [address] PCP - GeneralFamily Medicine08/17/24 Hector Goode MD [address] [place] [address] Neurolog05/01/17 John Cancino MD [address] [place] [address] MDFamily Medicine - Sports Medicine07/30/17 Rivas Delcid MD [address] [facility] [address] [place] [address] Assigned Surgical Anjoxrfj54/23/24 Blue Mensah MD Assigned Heart and Vascular Exchpjgh00/23/25 Gavi Cloud MD [address] [address] Assigned PCP01/31/2512/22/25 Jasmin Maradiaga PA-C [address], [address] [address] Assigned PCP03/01/25documented as of this encounter
--- OUTSIDE RECORDS SUMMARY | 2025-03-09 12:58 | XMS_ITS | Encounter Summary ---
Author Organization [place] Address [address] [facility] [place] [address] Care Team Providers Care Resource Management Planner Name Role Phone Hector Goode MD Unavailable John Cancino MD Unavailable [phone] Rivas Delcid MD Unavailable Gavi Cloud MD Primary Care Provider [phone] Blue Mensah MD Unavailable Un available Gavi Cloud MD Unavailable [phone] Encounter Details DateTypeDepartmentCare Team (Latest Contact Info)Ogxxtgtxlbl52/25/2025Travel Social History Tobacco UseTypesPacks/DayYears UsedDateSmoking Tobacco: NeverPassive [...] in an abandoned building, in an overnight longterm, or couch-surfing.)Yes02/02/2024re you worried about losing your [...] InformationValueDate RecordedSex Assigned at BirthNot on fileLegal MqzUudtlh11/04/2012 2:58 AM CSTGender IdentityNot on file Sexual OrientationNot on filedocumented as of this encounter Plan of Treatment NamePriorityAssociated DiagnosesDate/TimeENDOSCOPIC RETROGRADE CHOLANGIOPANCREATOGRAPHY, COMPLEX Cholecystitis Choledocholithiasis with acute cholecystitis documented as of this encounter Visit Diagnoses Not on filedocumented in this encounter Additional Health Concerns AssessmentNoted TimePHQ-9 Depression Total Score: 8004/30/2023 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 [id number] [address] Family Medicine - Sports Medicine07/30/17 Rivas Delcid MD [address] [facility] [address] [place] [address] Assigned Surgical Odtinydi40/23/24 Blue Mensah MD Assigned Heart and Vascular Norfzdoj59/23/25 Gavi Cloud MD [address] [facility] [address] [place] [address] Assigned PCP01/30documented as of this encounter
--- OUTSIDE RECORDS SUMMARY | 2025-03-09 12:59 | XMS_ITS | Clinical Summary ---
Author Organization [facility] Address [address] [place] [address] Care Team Providers Care Lump Roller Name Role Phone Elsewhere, Pcp Primary Care Provider Unavailabl e Source Comments Patient records contain information from all sites at [facility]. For routine questions regarding patient records, call [phone] during business hours, M-F 8:00 AM - 5:00 PM Central Time. Record requests for emergency care only can be directed to [phone] at any time.[facility] Allergies Active AllergyReactionsCriticalityNoted DateCommentsCortisonePalpitationsMedium 01/18/2009Sulfa (Sulfonamide Antibiotics)GI wmrixrnntxzQsfrux01/15/2003 Medications MedicationSigDispense QuantityRefillsLast FilledStart DateEnd DateStatus irbesartan (AVAPRO) 75 mg tablet Take 75 mg by mouth daily.12/17/2017Active rosuvastatin (CRESTOR) 5 mg tablet Take 5 mg by mouth daily.12/30/2017Active spironolactone (ALDACTONE) 25 mg tablet Take 1 tablet by mouth every morning.01/25/2009ctive KLOR-CON M10 10 mEq ER tablet Take 1 tablet by mouth daily.02/23/2018Active aspirin (ASPIRIN LOW DOSE) [address] tablet Take 1 tablet by mouth every morning.01/25/2009ctive cholecalciferol, vitamin D3, (CHOLECALCIFEROL, VIT D3,,BULK,) 100,000 unit/gram powder Take 1,000 Units by mouth daily.Active imatinib (GLEEVEC) 400 mg tablet Take 1 tablet by mouth every morning.01/25/2009ctive omeprazole (PriLOSEC) [address] capsule Take 40 mg by mouth as needed.07/30/2016Active geriatric multivitamin-min tablet Take 1 tablet by mouth daily.Active furosemide (LASIX) 20 mg tablet Take 20 mg by mouth daily. Plus take 1 additional pill prn for edema/shortness of ndblkk3802/21/2020Active carvediloL (COREG) 12.5 mg tablet Take 12.5 mg by mouth 2 (two) times a day with meals.05/10/2019Active amoxicillin-pot clavulanate (Augmentin) 875-125 mg per tablet Indications:Loss Hearing Conductive UnilateralTake 1 tablet by mouth 2 (two) times a day. 14 tablet 5Active ondansetron ODT (Zofran-ODT) 4 mg disintegrating tablet Dissolve 1 tablet (4 mg total) in the mouth every 8 (eight) hours as needed for nausea or vomiting. 20 tablet 5Active oxyCODONE (Roxicodone) 5 mg immediate release tablet Indications:Acute PainTake 1 tablet (5 mg total) by mouth every 4 (four) hours as needed for severe pain or score 7-10 of10 Indication: Acute Pain. 10 tablet 5Active Active Problems ProblemNoted DateDiagnosed DateLoss Hearing Conductive Chkyonpzkw88/20/2023Pain Hand Qkwgvvkef91/01/2019Congestive Heart Djdsstq8702/25/2018 Overview (02/25/2018): Overview: Problem list name updated by automated process. Provider to review Aivrbjvncsfdvx72/19/2018Bundle Branch Block Left02/25/20183154Viydalwlkke32/19/2018 Pain Low Back Bfqzhhqjrcw34/19/2018Dystrophy Qikmwysk13/05/2013Loss Hearing Sensorineural Wrfjistlaw19/02/2012Tympanomastoidectomy Status Post09/18/2006 Neoplasm Of Unspecified Behavior Of Syqqdbv8805/07/2006 Overview (02/25/2018): Overview: Problem list name updated by automated process. Provider to review Apnea Sleep Nyihuxseatp37/11/4998Ghbuzocinljomn24/11/2007Gastroesophageal Reflux Disease NOS03/20/2006Myeloid Leukemia Unspecified In Iamtiweaw45/16/2003 Resolved Problems ProblemNoted DateDiagnosed DateResolved DateChronic Obstructive Pulmonary Zinthbe35 Encounters DateTypeDepartmentCare AxerTxvusqbxxxn86/21/2025Clinical Communication Department of Neurology in [place], [place] [address] [place] [address] Hever Young M.D. 5Clinical Communication Department of Neurology in [place], [place] [address] [place] [address] Hever Young M.D. Pykelhd2101/19/2025 4:15 PM CORRAL BOSS - 01/19/2025 11:59 PM CSTHospital Encounter Department of Radiology, [place], [place] [address] [place] [address] Hever Young M.D. Transient Ischemic Attack Discharge Disposition: Home or Self Care01/18/2025 11:13 AM CORRAL BOSS - 01/18/2025 11:59 PM CSTHospital Encounter Department of Laboratory Medicine and Pathology, [facility] in [place], [place] [address] [place] [address] Hever Young M.D. Transient Ischemic Attack Discharge Disposition: Home or Self Care01/18/2025 8:00 AM CSTComprehensive Visit Department of Neurology in [place], [place] [address] [place] [phone] Hever Young M.D. Transient Ischemic Attack (Primary Dx)5Clinical Communication Department of Neurology in [place], [place] [address] [place] [phone] Hever Young M.D. Appt Request (Cochlear implant/)5Clinical Communication Department of Neurology in [place], [place] [address] [place] [address] Hever Young M.D. Pre-visit Testing Ordersfrom Last 3 Months Immunizations ImmunizationAdministration DatesNext DueHZV (ZOSTAVAX)02/26/20071286NNQ3996/02/2012 ZRJC068803/25/2017,12/19/2006Td Preservative Free (TENIVAC, DECAVAC)07/03/2009, 04/10/2000,02/26/1993influenza vaccine quad (FLUZONE/FLUARIX) (6 months and older)(PF)01/23/2018,11/29/2016 Family History Medical HistoryRelationNameCommentsIntracerebral hemorrhageAunt 1Intracerebral hemorrhageAunt 2Coronary artery diseaseBrotherharland kasafacioscapulohumeral dystrophyBrotherharland kasaCoronary artery diseaseFatherhelge kasaParkinson's diseaseFatherhelge kasaIntracerebral hemorrhageMotherrecurrent hemorrhage at 74 WeaknessMotherundiagnosed, but suspected FSHDDementiaSisterMultiple sclerosis Sisterfacioscapulohumeral dystrophySon 1No Known ProblemsSon 2MyopathyUncle stooped posture but not formally diagnosedRelationNameStatusCommentsAunt 1Aunt 2 Brotherhardivine savior healthcare kasaCousinnephews 2 sons of brotherFatherjessicage kasaDeceased (Age 86)MotherDeceasedSisterSon 1Son 2Uncle Social History Tobacco UseTypesPacks/DayYears UsedDateSmoking Tobacco: NeverSmokeless [...] has the electric, gas, oil, or water [employer] threatened to shut off services in your home?No01/18/2025Housing StabilityAnswerDate RecordedWhat is your living situation today?I have a steady place to live01/18/2025CommentsNoSex and Gender InformationValueDate RecordedSex Assigned at DkobuHldlac69/19/2018 8:06 AM CSTLegal SexFemale 04/11/2016 2:09 AM CSTGender OyqtkkvbKetpbt01/19/2018 8:06 AM CSTSexual EfjqmaaeexcJtpmexix98/19/2018 8:06 AM CORRAL BOSS Last Filed Vital Signs Vital SignReadingTime TakenCommentsBlood Jwhiurbk380/6101/18/2025 8:06 AM CORRAL BOSS Dtgfw331801/18/2025 8:06 AM TXOYsxgppwqcep17.4 ??C (97.5 ??F)04/20/2024 12:35 PM CSTRespiratory Gbxj392104/20/2024 12:45 PM CSTOxygen Ismnqbkhux70%04/20/2024 2:15 PM CSTInhaled Oxygen Concentration--Qwiwuu098 kg (241 lb 10 oz)04/20/2024 8:45 AM OEGFbbnmi771.6 cm (5' 4)04/20/2024 8:45 AM CSTBody Mass Index41.47004/20/2024 8:45 AM CORRAL BOSS Plan of Treatment Health MaintenanceDue DateLast DoneCommentsZoster Vaccines (1 of 2)04/23/2007 02/26/2007DTaP,Tdap,and Td Vaccines (1 - Tdap), 04/10/2000, 02/26/1993RSV vaccine - (32-36 weeks) or 50+ years (1 - 1-dose 75+ series)01/04/2019Depression Screening (Annual PHQ-2)03/10/2024OVID-19 Vaccine ( - 2024- season)/, 02/12/2022, 09/25/2021, Additional history existsInfluenza Vaccine (#1)/, 12/28/2021, 12/15/2020, Additional history existsPotassium Level11/05/850813/07/2024, 11/29/2024, 04/14/2024, Additional history existsSodium Level01/12/2026 01/12/2025, 11/29/2024, 04/14/2024, Additional history existsCreatinine Level (Kidney Function Test), 01/12/2025, 12/17/2024, Additional history existsPneumococcal vaccine (50+ years)Zveyliyzr14/16/2018, 02/19/2012, 12/19/2006Bone Density Scan (Osteoporosis Screen)Rlcsyqjjdzlr12/14/2021Fall Risk Screen (Annual)Kivkwugeb05/11/4246HsrrzobalEcmzaaylgtvs75/20/2025, 05/26/2023, 03/17/2013 (Performed elsewhere)HPV VaccinesAged OutNo longer eligible based on patient's age to complete this topicIPV VaccinesAged OutNo longer eligible based on patient's age to complete this topic Medical Devices ImplantedTypeAreaManufacturerDevice IdentifierShelf Expiration DateModel / Serial / LotAbutment For Cochlear Implanted:Qty: 1 on [facility]20[facility]: EarCochlear Iacuagu93/17/[id number] / / [id number]:ABTMNT HD CI BAHA FXTR BI300 4 - [id number] Hd Ci Osia Ci - [id number] - [id number] Implanted:Qty: 1 on 04/20/20[facility] Im[facility]: EarCochlear Kchhmmq1012/09/2025OSI300 / [id number] / [id number]:No Head Wrap needed, 1.5T, 3T conditional, Normal/Normal scan mode, Physicist needed for brain imaging due to artifact, (3T with approval, physicist needed for brain imaging due to arifact). Head and Neck MRI needs approval before scheduling. See guidelines for scanning conditions: https://www.cochlear.com/us/en/professionals/ojfptsxgu-ody-j raining/mri-guidelines. [id number] correlates to the IUD261 per the surgical checklist: https://assets.cochlear.com/api/public/content/86n4yp41x6d52007a0ih1c15c9v13458 Jasmin Nava 01/14/25ExplantedTypeAreaManufacturerDevice IdentifierShelf Expiration DateModel / Serial / LotBaha Device-01/25/2009 Implanted:Qty: 1 on 01/25/2009AHA DeviceNeckCochlear LimitedDescription:Device Vegetable Washer - Cochle[employer]. Device Status Text - [id number]. Placed behind earBaha Device-01/25/2009 Implanted:Qty: 1 on 01/25/2009AHA DeviceOther/Legacy - See Implant Description Cochlear LimitedDescription:Device Vegetable Washer - Cochlear [employer]. Body Location - Other. Right. Device Status Text - [id number]. Procedures Procedure NamePriorityDate/TimeAssociated DiagnosisCommentsCT HEAD NECK ANGIOGRAM WITH IV CONTRASTRAD - Routine (most inpatients and all outpatients) 01/19/2025 5:34 PM CORRAL BOSS Transient Ischemic Attack CT HEAD WITHOUT IV CONTRASTRAD - Routine (most inpatients and all outpatients) 01/19/2025 5:34 PM CORRAL BOSS Transient Ischemic Attack CREATININE WITH EGFR, S/JQkronal06/11/2025 11:35 AM CORRAL BOSS Transient Ischemic Attack FOLATE, MXljwqec08/11/2025 11:35 AM CORRAL BOSS Transient Ischemic Attack VITAMIN B12 ASSAY, FJuwdjyt92/11/2025 11:35 AM CORRAL BOSS Transient Ischemic Attack CBC WITH DIFFERENTIAL, EMctjrma20/11/2025 11:35 AM CORRAL BOSS Transient Ischemic Attack HOMOCYSTEINE, TOT, BEwmoepl03/11/2025 11:34 AM CORRAL BOSS Transient Ischemic Attack OUTSIDE CT ASMZEOmxocrl04/31/2025 8:[address] VKPXTVcilyjx34/31/2025 6:35 PM CDT COMPREHENSIVE METABOLIC PANEL, S/NTxfrntq36/20/2018 9:34 AM CORRAL BOSS Pain Low Back 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 Muscular (HCC) Myeloid Leukemia Unspecified In Remission (HCC) Sarcoidosis Tympanomastoidectomy Status Post Loss Hearing Sensorineural Unilateral from Last 3 Months or Most Recently Relevant to Health Maintenance Results * CT Head without IV Contrast (01/19/2025 5:34 PM CORRAL BOSS)Anatomical Region LateralityModalityHead, Neuroradiology RST LOS, Neuroradiology ARZ LOS, Neuroradiology FLA LOSN/AComputed Tomography, Computed TomographySpecimen (Source)Anatomical Location / LateralityCollection Method / VolumeCollection TimeReceived Time01/19/2025 5:16 PM CORRAL BOSS Impressions 01/20/2025 1:42 PM CORRAL BOSS 1. No significant narrowing of the head and neck vasculature, with anatomic variations of the posterior/vertebral artery and [place] of Sheikh as described. 2. No acute intracranial abnormality, although partially obscured by a right BAHA device. 3. Cervical spondylosis with spinal stenosis as described Narrative 01/20/2025 1:42 PM CORRAL BOSS EXAM: CT HEAD WITHOUT IV CONTRAST, CT [...] withanatomic variations of the posterior/vertebral artery and [place] of Willisas described. 2. No acute intracranial abnormality, although partially obscured by aright BAHA device. 3. Cervical spondylosis with spinal stenosis as described Authorizing ProviderResult TypeResult StatusHever Young M.D.José Antonio CT PROCEDURESFinal Result * CT Head Neck Angiogram with IV Contrast (01/19/2025 5:34 PM CORRAL BOSS)Anatomical RegionLateralityModalityHead and Neck, Neuroradiology RST LOS, Neuroradiology ARZ LOS, Neuroradiology FLA LOSN/AComputed Tomography, Computed Tomography Specimen (Source)Anatomical Location / LateralityCollection Method / Volume Collection TimeReceived Time01/19/2025 5:24 PM CORRAL BOSS Impressions 01/20/2025 1:42 PM CORRAL BOSS 1. No significant narrowing of the head and neck vasculature, with anatomic variations of the posterior/vertebral artery and [place] of [place]ikh as described. 2. No acute intracranial abnormality, although partially obscured by a right BAHA device. 3. Cervical spondylosis with spinal stenosis as described Narrative 01/20/2025 1:42 PM CORRAL BOSS EXAM: CT HEAD WITHOUT IV CONTRAST, CT [...] withanatomic variations of the posterior/vertebral artery and [place] of Willisas described. 2. No acute intracranial abnormality, although partially obscured by aright BAHA device. 3. Cervical spondylosis with spinal stenosis as described Authorizing ProviderResult TypeResult StatusOrhun H Kantarci M.D.IMG CT PROCEDURESFinal Result * (ABNORMAL) CBC with Differential, Blood (01/18/2025 11:35 AM CORRAL BOSS)Component ValueRef RangeTest MethodAnalysis TimePerformed AtPathologist Signature Ntfzrrxbhp61.511.6 - 15.0 g/dL01/18/2025 12:04 PM BHXESVGatpdrquvs33.635.5 - 44.9 %01/18/2025 12:04 PM CSTDTLErythrocytes3.86(L)3.92 - 5.13 x10(12)/L 01/18/2025 12:04 PM MXSADOIXK73.878.2 - 97.9 fL01/18/2025 12:04 PM CSTDTLRBC Distrib Width13.212.2 - 16.1 %01/18/2025 12:04 PM CSTDTLPlatelet Pcijd710(L) 157 - 371 x10(9)/L103/20/2024 12:54 PM CSTDTLLeukocytes4.33.4 [...] Venous) 01/18/2025 11:35 AM CST01/18/2025 11:43 AM CORRAL BOSS Narrative Authorizing ProviderResult TypeResult StatusHever Young M.D.LAB BLOOD ADD-ONFinal ResultPerforming OrganizationAddressCity/State/ZIP CodePhone Number [facility] [address] [place], [place] [address] [address] [place] [address] [facility] [address] [place] [address] * Folate (01/18/2025 11:35 AM CORRAL BOSS)ComponentValueRef RangeTest MethodAnalysis TimePerformed AtPathologist SignatureFolate, S17.0>=4.0 mcg/L103/20/2024 12:51 PM CSTDTLSpecimen (Source)Anatomical Location / LateralityCollection Method / VolumeCollection TimeReceived TimeBlood (Blood, Venous)01/18/2025 11:35 AM CORRAL BOSS 01/18/2025 11:42 AM CORRAL BOSS Narrative Authorizing ProviderResult TypeResult StatusHever Young M.D.LAB BLOOD ADD-ONFinal ResultPerforming OrganizationAddressCity/State/ZIP CodePhone Number [address] [address] [address] [place] [address] * Vitamin B12 Assay (01/18/2025 11:35 AM CORRAL BOSS)ComponentValueRef RangeTest Method Analysis TimePerformed AtPathologist SignatureVitamin B12 Assay, V234653 - 914 ng/L103/20/2024 12:56 PM CSTDTLComment: ----ADDITIONAL [...] Collection TimeReceived TimeBlood (Blood, Venous)01/18/2025 11:35 AM CORRAL BOSS 01/18/2025 11:42 AM CORRAL BOSS Narrative Authorizing ProviderResult TypeResult Onelia Young M.D.LAB BLOOD ADD-ONFinal ResultPerforming OrganizationAddressCity/State/ZIP CodePhone Number [facility] [address] [place], [place] [address] [place] [address] * (ABNORMAL) Creatinine with Estimated GFR (01/18/2025 11:35 AM CORRAL BOSS)Component ValueRef RangeTest MethodAnalysis TimePerformed AtPathologist Signature Creatinine1.21(H)0.59 - 1.04 mg/dL01/18/2025 12:22 PM CSTDTLEstimated GFR (eGFR)45(L)>=60 mL/min/BSA01/18/2025 12:22 PM CSTDTLComment: Estimated GFR calculated using the 2020 CKD_EPI creatinine equation. Specimen (Source)Anatomical Location / LateralityCollection Method / Volume Collection TimeReceived TimeBlood (Blood, Venous)01/18/2025 11:35 AM CORRAL BOSS 01/18/2025 11:42 AM CORRAL BOSS Narrative Authorizing ProviderResult TypeResult StatusHever Young M.D.LAB BLOOD ADD-ONFinal ResultPerforming OrganizationAddressCity/State/ZIP CodePhone Number [address] [address], [facility] [address] [address] * (ABNORMAL) Homocysteine, Total, Plasma (01/18/2025 11:34 AM CORRAL BOSS)ComponentValue Ref RangeTest MethodAnalysis TimePerformed AtPathologist Signature Homocysteine, [...] developed and its performance characteristics determined by [facility] in a manner consistent with CLIA requirements. This test has not been cleared or approved by the U.S. Food and Drug Administration. Specimen (Source)Anatomical Location / LateralityCollection Method / Volume Collection TimeReceived TimeBlood (Blood, Venous)01/18/2025 11:34 AM CORRAL BOSS 01/18/2025 12:35 PM CORRAL BOSS Narrative Authorizing ProviderResult TypeResult StatusHever Young M.D.LAB BLOOD NON ADD-ONFinal ResultPerforming OrganizationAddressCity/State/ZIP CodePhone Number [facility] [address] [place] [address], [facility] [address] [facility] [address] [place] [address] * CT ANGIO NECK-Outside CT Neuro (01/07/2025 8:30 PM CDT) Only the most recent of2 resultswithin the time period is included. Specimen (Source)Anatomical Location / LateralityCollection Method / Volume Collection TimeReceived Time Narrative IIMS - 01/20/2025 12:49 PM CORRAL BOSS This order has been created and auto-finalized to support the import of outside images. If available, original interpretation can be found on the Media Tab in Chart Review, in Document Viewer, as an image in InfinityView or as an Addendum. If a re-interpretation or overread is required please follow defined workflow. ?? Authorizing ProviderResult TypeResult StatusProvider Not In SystemIMG CT PROCEDURESFinal ResultPerforming OrganizationAddressCity/State/ZIP CodePhone Number IIMS NA from Last 3 Months Additional Health Concerns InfectionOnset DateLast IndicatedProtective Dllibfxowat18/15/202309/ Insurance Care Teams Team MemberRelationshipSpecialtyStart DateEnd Date Elsewhere, Pcp PCP - GeneralInternal Medicine04/20/24
--- OUTSIDE RECORDS SUMMARY | 2025-03-09 12:59 | XMS_ITS ---
Author Organization [place] Address [facility] [place] [address] Care Team Providers Care Calciner Operator Name Role Phone Hector Goode MD Unavailable John Cancino MD Unavailable [phone] Rivas Delcid MD Unavailable Gavi Cloud MD Primary Care Provider Blue Mensah MD Unavailable Un available Jasmin Maradiaga PA-C Unavailable [phone] Active Problems ProblemNoted DateDiagnosed DateCochlear implant status--followed by ent [place] 01/12/2025Mixed conductive and sensorineural hearing loss of right ear, unspecified hearing status on contralateral side04/14/2024GCA (giant cell arteritis)04/14/2024History of transient ischemic attack (TIA)04/14/2024PMR (polymyalgia rheumatica)--followed by rheumatology,4Class 2 severe obesity due to excess calories with serious comorbidity in adult04/30/2023Mild persistent asthma without jwtkylcrjpgx26/05/2023KD (chronic kidney disease) stage 3, GFR 30-59 ml/min02/17/2019Incontinence of feces with fecal urgency 07/27/2018Pain of hand05/08/2018Facioscapulohumeral muscular opxeeztxc65/05/2013 History of primary malignant neoplasm of urinary ybwpfdm1809/26/2011 Overview (03/08/2024): V10.51 : PERSONAL HX BLADDER CA History of pibttqvdthlae59/12/2007Obstructive sleep apnea ykktwyev75/11/2007 Gastroesophageal reflux hylboth7703/20/2006Other specified xfsomtho86/28/2005 Secondary ghpekrcxwdkzfc51/16/2005 Overview (12/08/2014): Problem list name updated by automated process. Provider to review Transient cerebral lmvmuqbz44/16/2003 Overview (12/08/2014): Problem list name updated by automated process. Provider to review Chronic myeloid leukemia (H)--followed by urtvgxex20/16/1692Mdqgryr70/07/2001 Edkjlge3908/14/2000Dilated cardiomyopathy (H)--followed by cardiology Overview (11/11/2012): Problem list name updated by automated process. Provider to review and confirm Imo Update utility Hypersomnia with sleep apnea Overview (12/08/2014): Problem list name updated by automated process. Provider to review Mixed hyperlipidemiaLBBB (left bundle branch block)Congestive heart failure Overview (12/09/2014): Problem list name updated by automated process. Provider to review Myalgia and myositis Overview (12/09/2014): Problem list name updated by automated process. Provider to review Current Treatment and Therapy Plans No current plan information found. Past Treatment and Therapy Plans No past plan information found. Lifetime Dose Tracking * ChemicalLifetime DoseAutomatic EntryManual EntryTotal Air Kerma6.7 mGy6.7 mGy0 mGyFluoro Time0.3 Minutes0.3 Minutes0 Minutes Resolved Problems ProblemNoted DateDiagnosed DateResolved DateCentral sleep apnea04/14/2024 01/12/20259830Bwfopeuxzmdeg45OPD (chronic obstructive pulmonary disease)MI 37.0-37.9, adultdvanced directives, counseling/hnuczfbjcj27 Overview (03/23/2014): Advance Care Planning: ACP Review and Resources Provided: Reviewed chart for advance care plan. Griselda Lai has no plan or code status on file. Discussed available resources and provided with information. Confirmed code status reflects current choices pending further ACP discussions. Confirmed/documented designated decision maker(s). See permanent comments section of demographics in clinical tab. Added by Ingrid Apple on 03/23/2014 Sigurd or hrtvce04Health Care Home Overview (11/18/2012): State Tier Level: Tier 4 Status: n/a Property Officer: See Letters for [facility] Care Plan Sensorineural hearing loss (SNHL)Meralgia paresthetica of right sideLiving will, counseling/iltuojokki51/14/2011 03/23/2014 Overview (08/09/2013): Advance Care Planning: ACP [...] Shanelle Moon on 08/09/2013 Personal history of malignant neoplasm of Overview (12/08/2014): Problem list name updated by automated process. Provider to review Localized osteoarthrosis, lower leg Overview (12/08/2014): Problem list name updated by automated process. Provider to review [facility] current use of anticoagulant vertebs18 Overview (12/08/2014): Problem list name updated by automated process. Provider to review Depressive disorder, not elsewhere gvtkcrvdnf61Hyperlipidemia Overview (12/08/2014): Problem list name updated by automated process. Provider to review Ugwsnwzhsim16/05/2025Need for prophylactic hormone replacement therapy (postmenopausal)10/01/2002Morbid hlqzndz4601/12/2025 Overview (12/08/2014): Problem list name updated by automated process. Provider to review Nonspecific abnormal results of cardiovascular function study02/12/2023 Overview (12/09/2014): Problem list name updated by automated process. Provider to review
--- OUTSIDE RECORDS SUMMARY | 2025-03-09 12:59 | XMS_ITS | Encounter Summary ---
Author Organization [facility] Address [address] [place] [address] Care Team Providers Care Sap Bw Bi Developer Name Role Phone Elsewhere, Pcp Primary Care Provider Unavailabl e Reason for Visit * ReasonOnset YlopGukynahfTcabeam73/14/2025 Encounter Details DateTypeDepartmentCare Team (Latest Contact Info)Cqjzhcjxzsm24/14/2025linical Communication Department of Neurology in [place], [place] [address] [place] [address] Hever Young M.D. [address] [place] [address] Results Social History Tobacco UseTypesPacks/DayYears UsedDateSmoking Tobacco: NeverSmokeless [...] or from getting things needed for daily living?No5AHC UtilitiesAnswerDate RecordedIn the past 12 months has the electric, gas, oil, or water company threatened to shut off services in your home?No01/18/2025Housing StabilityAnswerDate RecordedWhat is your living situation today?I have a steady place to live01/18/2025CommentsNoSex and Gender InformationValueDate RecordedSex Assigned at EcdbnPxjjbi41/19/2018 8:06 AM CSTLegal SexFemale 04/11/2016 2:09 AM CSTGender VmftzausCdacsy15/19/2018 8:06 AM CSTSexual UalofjzwzcaGyycrond70/19/2018 8:06 AM CSTdocumented as of this encounter Plan of Treatment Not on file documented as of this encounter Visit Diagnoses Not on filedocumented in this encounter Additional Health Concerns InfectionOnset DateLast IndicatedResolved TimeProtective Bldpfxyipxm49/15/2023 3documented as of this encounter Care Teams Team MemberRelationshipSpecialtyStart DateEnd Date Elsewhere, Pcp PCP - GeneralInternal Medicine04/20/24documented as of this encounter
--- OUTSIDE RECORDS SUMMARY | 2025-03-09 12:59 | XMS_ITS | Encounter Summary ---
Author Organization [facility] Address [address] [place] [address] Care Team Providers Care Rn Faculty Name Role Phone Elsewhere, Pcp Primary Care Provider Unavailabl e Encounter Details DateTypeDepartmentCare Team (Latest Contact Info)Llhxcbodxxq04/21/2025linical Communication Department of Neurology in [place], [place] [address] [place] [address] Hever Young M.D. [address] [place] [address] Social History Tobacco UseTypesPacks/DayYears UsedDateSmoking Tobacco: NeverSmokeless [...] live01/18/2025CommentsNoSex and Gender InformationValueDate RecordedSex Assigned at ZflraHpfamt06/19/2018 8:06 AM CSTLegal SexFemale 04/11/2016 2:09 AM CSTGender KzxpwwohItbmha21/19/2018 8:06 AM CSTSexual VfulxoykatmJrmnjpgh30/19/2018 8:06 AM CSTdocumented as of this encounter Plan of Treatment Not on file documented as of this encounter Visit Diagnoses Not on filedocumented in this encounter Additional Health Concerns InfectionOnset DateLast IndicatedResolved TimeProtective Lmtyhvcfjaw28/15/2023 3documented as of this encounter Care Teams Team MemberRelationshipSpecialtyStart DateEnd Date Elsewhere, Pcp PCP - GeneralInternal Medicine04/20/24documented as of this encounter
--- OUTSIDE RECORDS SUMMARY | 2025-03-09 12:59 | XMS_ITS | Encounter Summary ---
Author Organization [facility] Address [address] [place] [address] Care Team Providers Care Qa Auditor Name Role Phone Elsewhere, Pcp Primary Care Provider Unavailabl e Reason for Referral * MRI/CAT/PET Scan (Routine) - AuthorizedSpecialtyDiagnoses / ProceduresReferred By ContactReferred To ContactRadiology Diagnoses Transient Ischemic Attack Procedures MR Brain without and with IV Contrast Hever Young M.D. [address] [place] [address] Phone: tel: fax: [facility] Referral IDStatusReasonStart DateExpiration DateVisits RequestedVisits [id number] F WHEELAGE CLERK Reason for Visit * ReasonOnset DateCommentsPre-visit Testing Giqdgy1401/13/2025 Encounter Details DateTypeDepartmentCare Team (Latest Contact Info)Nrutyawhlrp77/06/2025linical Communication Department of Neurology in [place], [place] [address] [place] [phone] Hever Young M.D. [address] [place] [phone] Pre-visit Testing Orders Social History Tobacco UseTypesPacks/DayYears UsedDateSmoking Tobacco: NeverSmokeless Tobacco: NeverAlcohol UseStandard Drinks/WeekCommentsNo0 (1 standard drink = 0.6 oz pure [...] live01/18/2025CommentsNoSex and Gender InformationValueDate RecordedSex Assigned at FholqMlqqrw56/19/2018 8:06 AM CSTLegal SexFemale 04/11/2016 2:09 AM CSTGender VtbqobqrYtlvjy86/19/2018 8:06 AM CSTSexual DpynrhmcudfVidodhyk99/19/2018 8:06 AM CSTdocumented as of this encounter Plan of Treatment NameTypePriorityAssociated DiagnosesOrder ScheduleMR Brain without and with IV ContrastImagingRAD - Routine (most inpatients and all outpatients) Transient Ischemic Attack Expected: 01/18/2025, Expires: 04/15/2026documented as of this encounter Visit Diagnoses Diagnosis Transient Ischemic Attack- Primary documented in this encounter Additional Health Concerns InfectionOnset DateLast IndicatedResolved TimeProtective Kanbqwkzjbm20/15/2023 3documented as of this encounter Care Teams Team MemberRelationshipSpecialtyStart DateEnd Date Elsewhere, Pcp PCP - GeneralInternal Medicine04/20/24documented as of this encounter
--- OUTSIDE RECORDS SUMMARY | 2025-03-09 12:59 | XMS_ITS | Encounter Summary ---
Author Organization [facility] Address [address] [place] [phone] Care Team Providers Care Superintendent Factory Name Role Phone Elsewhere, Pcp Primary Care Provider Unavailabl e Reason for Visit * ReasonOnset DateCommentsAppt Orxttyw3701/14/2025ochlear implant Encounter Details DateTypeDepartmentCare Team (Latest Contact Info)Ggmfejxeywx05/07/2025Clinical Communication Department of Neurology in [place], [place] [address] [place] [address] Hever Young M.D. [address] [place] [address] Appt Request (Cochlear implant/) Social History Tobacco UseTypesPacks/DayYears UsedDateSmoking Tobacco: NeverSmokeless [...] live01/18/2025CommentsNoSex and Gender InformationValueDate RecordedSex Assigned at FachsIwkkiw62/19/2018 8:06 AM CSTLegal SexFemale 04/11/2016 2:09 AM CSTGender InszweflNekoja57/19/2018 8:06 AM CSTSexual PpuvxyzseksIdtthaeu75/19/2018 8:06 AM CSTdocumented as of this encounter Plan of Treatment Not on file documented as of this encounter Visit Diagnoses Not on filedocumented in this encounter Additional Health Concerns InfectionOnset DateLast IndicatedResolved TimeProtective Czofroozjhr71/15/2023 3documented as of this encounter Care Teams Team MemberRelationshipSpecialtyStart DateEnd Date Elsewhere, Pcp PCP - GeneralInternal Medicine04/20/24documented as of this encounter
--- OUTSIDE RECORDS SUMMARY | 2025-03-09 12:59 | XMS_ITS | Clinical Summary ---
Author Organization [place] Address [facility] [place] [address] Care Team Providers Care Pay Station Department Manager Name Role Phone Hector Goode MD Unavailable John Cancino MD Unavailable [phone] Rivas Delcid MD Unavailable Gavi Cloud MD Primary Care Provider [phone] Blue Mensah MD Unavailable Un available Jasmin Maradiaga PA-C Unavailable [phone] Allergies Active AllergyReactionsCriticalityNoted GzkuDmfdvoegByjxckihn36/22/2007 Cortisone shots Sulfa Lztyamhoeas92/09/1999 Medications MedicationSigDispense QuantityRefillsLast FilledStart DateEnd DateStatus dorzolamide-timolol (COSOPT) 2-0.5 % ophthalmic solution Place 1 drop into the right eye 2 times daily.12/26/2022ctive tafluprost (ZIOPTAN) 0.0015 % SOLN ophthalmic solution Place 1 drop into the right eye at shhchpc6604/30/2023ctive tocilizumab (ACTEMRA) 80 MG/4ML Inject into the vein every 28 days.Active mometasone (ASMANEX TWISTHALER) 220 MCG/ACT inhaler Inhale 1 puff into the lungs every evening.Active imatinib (GLEEVEC) 400 MG tablet Take 400 mg by mouth dailyActive aspirin 81 MG EC tablet Take 81 mg by mouth daily.Active Vitamin D3 (CHOLECALCIFEROL) 25 mcg (1000 units) tablet Take 1 tablet by mouth daily.Active dorzolamide (TRUSOPT) 2 % ophthalmic solution INSTILL 1 DROP INTO RIGHT EYE TWICE A DAY4Active potassium chloride prabhu ER (KLOR-CON M10) 10 MEQ CR tablet Indications:Dilated cardiomyopathy (H)Take 1 tablet (10 mEq) by mouth daily. 90 tablet 5Active carvedilol (COREG) 12.5 MG tablet Indications:Ischemic cardiomyopathyTake 1 tablet (12.5 mg) by mouth 2 times daily (with meals). 180 tablet 5Active furosemide (LASIX) 20 MG tablet Indications:Dilated cardiomyopathy (H),Primary cardiomyopathy (H)Take 1 tablet (20 mg) by mouth daily. Plus 1 additional pill prn edema/shortness of breath. 110 tablet 5Active irbesartan (AVAPRO) 75 MG tablet Indications:Primary cardiomyopathy (H)Take 1 tablet (75 mg) by mouth daily. 90 tablet 5Active rosuvastatin (CRESTOR) 5 MG tablet Indications:Hyperlipidemia LDL goal <100Take 1 tablet (5 mg) by mouth daily. 90 tablet 5Active spironolactone (ALDACTONE) 25 MG tablet Indications:Ischemic cardiomyopathyTake 1 tablet (25 mg) by mouth every morning. 90 tablet 5Active sertraline (ZOLOFT) 50 MG tablet Indications:Facioscapulohumeral muscular dystrophy (H)TAKE 1.5 TABLETS BY MOUTH ONCE DAILY 135 tablet 5Active Cyanocobalamin (VITAMIN B-12) 5000 MCG TBDP Indications:Macrocytosis,Low vitamin B12 levelTake 1,000 mcg by mouth daily. 90 tablet 5Active clopidogrel (PLAVIX) 75 MG tablet Take 75 mg by mouth daily.02/23/2025Discontinued(Stopped by Patient (No AVS)) Active Problems ProblemNoted DateDiagnosed DateCochlear implant status--followed by ent [place] 01/12/2025Mixed conductive and sensorineural hearing loss of right ear, unspecified hearing status on contralateral side04/14/2024GCA (giant cell arteritis)04/14/2024History of transient ischemic attack (TIA)04/14/2024PMR (polymyalgia rheumatica)--followed by rheumatology,4Class 2 severe obesity due to excess calories with serious comorbidity in adult04/30/2023Mild persistent asthma without hzffncnnlcej50/05/2023KD (chronic kidney disease) stage 3, GFR 30-59 ml/min02/17/2019Incontinence of feces with fecal urgency 07/27/2018Pain of hand05/08/2018Facioscapulohumeral muscular yfjztscyw67/05/2013 History of primary malignant neoplasm of urinary hilfwas2709/26/2011 Overview (03/08/2024): V10.51 : PERSONAL HX BLADDER CA History of nyezefnjgrmuo82/12/2007Obstructive sleep apnea jsrdvyyu64/11/2007 Gastroesophageal reflux mdsvtkh3203/20/2006Other specified tyhojrgv09/28/2005 Secondary ofwgelollsmsmj12/16/2005 Overview (12/08/2014): Problem list name updated by automated process. Provider to review Transient cerebral knhtswzu92/16/2003 Overview (12/08/2014): Problem list name updated by automated process. Provider to review Chronic myeloid leukemia (H)--followed by yqwtgezv89/16/6110Hjdjepg68/07/2001 Itluxhs0908/14/2000Dilated cardiomyopathy (H)--followed by cardiology Overview (11/11/2012): Problem [...] automated process. Provider to review Resolved Problems ProblemNoted DateDiagnosed DateResolved DateCentral sleep apnea04/14/2024 01/12/20250128Dbtzcjfbxmykj61/24/202402/OPD (chronic obstructive pulmonary disease)MI 37.0-37.9, adult03/28/dvanced directives, counseling/mwbtuhjlrp00 Overview (03/23/2014): Advance Care Planning: ACP Review and Resources Provided: Reviewed chart for advance care plan. Griselda Lai has no plan or code status on file. Discussed available resources and provided with information. Confirmed code status reflects current choices pending further ACP discussions. Confirmed/documented designated decision maker(s). See permanent comments section of demographics in clinical tab. Added by Ingrid Apple on 03/23/2014 [place] or [email or web address] Overview (11/18/2012): State Tier Level: Tier 4 Status: n/a Con[employer]uster: See Letters for [facility] Care Plan Sensorineural hearing loss (SNHL)04/11/Meralgia paresthetica of right sideLiving will, counseling/wydxucuewc47/14/2011 03/23/2014 Overview (08/09/2013): Advance Care Planning: ACP [...] 08/09/2013 Personal history of malignant neoplasm of iltjeqw00/28/ Overview (12/08/2014): Problem list name updated by automated process. Provider to review Localized osteoarthrosis, lower leg06/27/ Overview (12/08/2014): Problem list name updated by automated process. 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 Provider to review Depressive disorder, not elsewhere bhqsjsfucz31Hyperlipidemia Overview (12/08/2014): Problem list name updated by automated process. Provider to review Sascgkhtfdg16/05/2025Need for prophylactic hormone replacement therapy (postmenopausal)10/01/2002Morbid krlqpwt1001/12/2025 Overview (12/08/2014): Problem list name updated by automated process. Provider to review Nonspecific abnormal results of cardiovascular function study02/12/2023 Overview (12/09/2014): Problem list name updated by automated process. Provider to review Encounters DateTypeDepartmentCare UlcgKkjvgddatfe52/26/2025Results Follow-Up [facility] [address] [place] [phone] Gavi Cloud MD 02/28/2025Telephone [facility] [address] [place] [phone] Jasmin Maradiaga PA-C Orders ([place])02/23/2025 1:15 PM CSTOffice Visit [address] [phone] Gavi Cloud MD Other specified hypotension (Primary Dx); Tired; Other urinary incontinence; Stage 3 chronic kidney disease, unspecified whether stage 3a or 3b CKD (H); History of primary malignant neoplasm of urinary bladder; At risk for falls; Walker as ambulation aid02/17/2025Telephone [facility] [address] [facility] [facility] [address] [place] [phone] Blue Mensah MD Call Back (Discuss Low BP)02/16/2025Telephone [facility] [address] [address] [place] [address] Gavi Cloud MD Zkhwmmwszik27/25/2025 1:[address] [facility] [address] [address] [place] [address] Jasmin Maradiaga PA-C Macrocytosis (Primary Dx); Low vitamin B12 level02/01/20256033Qkmftc38/17/2025Refill [facility] [address] [place] [address] Jasmin Maradiaga PA-C Medication Gedfih1101/13/2025Telephone [facility] [address] [place] [address] Gavi Cloud MD Referral ([facility] )01/12/2025 11:[address] [facility] [address] [place] [address] Gavi Cloud MD Hospital discharge follow-up (Primary Dx); TIA (transient ischemic attack); Stage 3 chronic kidney disease, unspecified whether stage 3a or 3b CKD (H); Dilated cardiomyopathy (H); Cochlear implant feiaou9601/12/2025Results Follow-Up [facility] [address] [phone] Gavi Cloud MD 01/12/20254507Imnakx94/04/2025are Coordination [facility] [address] [phone] Gavi Cloud MD Clinic Care Coordination - Post Hospital (Neuro symptoms and deficit )01/11/[address] [facility] [address] [place] [address] Gavi Cloud MD Home Care crjmzp9801/07/2025 5:11 PM CDT - 01/07/2025 5:12 PM CDTEmergency [facility] Emergency Dept [address] [place] [address] Ellis Duncan MD Discharge Disposition: Left Without Being Seen01/07/20254728Oygpmr65/13/2025Results Follow-Up [facility] [address] [place] [address] Gavi Cloud MD 12/17/2024 9:00 AM CDTOrders Only [facility] [address] [place] [address] [address] [place] [phone] Gavi Cloud MD 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) (Primary Dx); Encounter for long-term (current) use of jofuaspzjdt08/10/3435Mthwuf13/03/2025 10:35 AM CDT - 12/10/2024 11:59 PM CDTHospital Encounter [facility] [address] [facility], [address] [place] [address] Gavi Cloud MD BI-RADS category 3 mammogram result Discharge Disposition: Home or Self Care12/10/20249559Yjugmv67/02/2025Telephone [facility] [address] [place] [phone] Blue Mensah MD irvqirwq93/01/2025 2:00 PM CDTOffice Visit [facility] [address] [place] [address] Jasmin Maradiaga PA-C Medicare annual wellness visit, subsequent (Primary Dx); Other fatigue; Shortness of breath; Facioscapulohumeral muscular dystrophy (H); PMR (polymyalgia rheumatica)12/08/2024 12:15 PM CDTOffice Visit [facility] [address] [facility] [address] [place] [phone] Blue Mensah MD Dilated cardiomyopathy (H); Hyperlipidemia LDL goal <100; Ischemic cardiomyopathy; Primary iyqbrshbuqnwxm83/01/2025Travelfrom Last 3 Months Immunizations ImmunizationAdministration DatesNext DueCOVID-19 MONOVALENT 12+ (Pfizer) 09/25/2021,01/12/2021,05/20/2020,04/29/2020Influenza (H1N1)02/09/2009Influenza (High Dose) Trivalent,PF (Fluzone)01/16/2019,12/25/2015,12/29/2013Influenza (IIV3) PF12/19/2011,12/21/2010,12/06/2009,11/21/2008,01/06/2008,12/19/2006, 01/02/2006,12/16/2003,12/16/2002,12/29/2000,02/28/2000,12/20/1998,12/27/1997 Influenza Vaccine 65+ (Fluzone HD)01/21/2023,12/28/2021,12/15/2020,01/06/2020 Influenza Vaccine >6 months,quad, PF01/23/2018,11/29/2016,12/30/2014,12/18/2012 Influenza Vaccine, 6+MO IM (QUADRIVALENT W/PRESERVATIVES)12/21/2015Pneumo Conj 13-V (2009&after)02/19/2012Pneumococcal 23 qkgfrd2801/23/2018,12/19/2006TD,PF 7+ (Tenivac)07/03/2009,04/10/2000,02/26/1993Zoster vaccine, live02/26/2007 Family History Medical HistoryRelationCommentsArthritisFatheraliveHeart DiseaseFather devkdv-phixzZsojuzFmwlgrpdjapeeraaztud-ghzmkBpts Vein ThrombosisMaternal GrandmotherArthritisMotherdeceasedCerebrovascular DiseaseMotherBrain anuerysm-deceasedNo Known ProblemsOtherProstate CancerNo family hx ofRelation StatusCommentsFatherMaternal GrandmotherMotherOther Social History Tobacco UseTypesPacks/DayYears UsedDateSmoking Tobacco: NeverPassive [...] in an abandoned building, in an overnight snf, or couch-surfing.)Yes02/02/2024re you worried about losing your [...] InformationValueDate RecordedSex Assigned at BirthNot on fileLegal OwzYguoel98/04/2012 2:58 AM CSTGender IdentityNot on file Sexual OrientationNot on file Last Filed Vital Signs Vital SignReadingTime TakenCommentsBlood Evmorhuo01/5402/23/2025 1:21 PM 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 Oqhth039902/23/2025 1:21 PM YLDNbwccpcrzdv51.2 ??C (97.2 ??F)02/23/2025 1:21 PM CSTRespiratory Jcbs0354 2:20 PM CDTOxygen Wicuxyvwag56%02/23/2025 1:21 PM CSTInhaled Oxygen Concentration--Rzhqva168.1 kg (225 lb)01/07/2025 2:20 PM VYRUmnllk661 cm (5' 3)01/07/2025 2:20 PM CDTBody Mass Index39.8601/07/2025 2:20 PM CDT Plan of Treatment NamePriorityAssociated DiagnosesDate/TimeENDOSCOPIC RETROGRADE CHOLANGIOPANCREATOGRAPHY, COMPLEX Cholecystitis Choledocholithiasis with acute cholecystitis Health MaintenanceDue DateLast DoneCommentsANNUAL REVIEW OF HM CYUKLB00 1944 HF ACTION PLAN1944 5032ZZWJHCQMHNWW1944STHMA ACTION PLAN06/12/2024 06/13/2023, 06/13/2023, 06/13/2023CBC/04/2023, 02/05/2024, 02/04/2024, Additional history iargocLNK33//11/2023, 02/09/2024, 02/05/2024, Additional history existsASTHMA CONTROL TEST/, 06/13/2023BMP/, 01/12/2025, 11/29/2024, Additional history existsPHQ-906//, 04/30/2023, 03/28/2023, Additional history existsINFLUENZA VACCINE (#1)/, 12/28/2021, 12/15/2020, Additional history existsPostponed from 11/08/2024 (Patient Declined)COVID-19 VACCINE ( season)/, 02/12/2022, 09/25/2021, Additional history existsPostponed from 11/08/2024 (Insurance Coverage)LIPID /, 09/09/2023, 10/15/2022, Additional history exists DTAP/TDAP/TD VACCINE (1 - Tdap), 04/10/2000, 02/26/1993 Postponed from 07/04/2009 (Insurance Coverage)FALL RISK LRRRRWHPBZ12/01/2026 12/08/2024, 10/07/2022, 12/15/2020, Additional history existsMEDICARE ANNUAL WELLNESS VISIT, 12/08/2024, 04/30/2023, Additional history existsZOSTER VACCINE (1 of 2)Postponed from 04/23/2007 (Insurance Coverage)MAMMO DZSNFIFML37/05/2024, 06/10/2024, 05/27/2024, Additional history existsRSV VACCINE (1 - 1-dose 75+ series)02/01/2026Postponed from 01/04/2019 (Insurance Coverage)[id number], 12/17/2024, 12/08/2024, Additional history existsADVANCE CARE EYGDUXAX08, 02/09/2024, 02/11/2023, Additional history rfjixuCYLS71, 06/22/2007, 09/26/20016309LKKIWEZAAZZPytdmbpwhzmm92/30/2017, 08/06/2016, 01/14/2007 COLORECTAL CANCER SCREENINGDiscontinuedPNEUMOCOCCAL VACCINE 50+ YEARSCompleted 01/23/2018, 02/19/2012, 12/19/2006DEPRESSION ACTION TEVKRpjrwmpiu24/05/2024, 06/13/2023TSH W/FREE T4 XGNWFVUindyvqlv17/01/2025, 05/24/2020, 11/29/2016, Additional history qhjydhCLLITAYVUNDeohefdpx54/31/2025, 01/07/2024, 07/26/2017, Additional history existsCT COLONOGRAPHYDiscontinuedFITDiscontinuedFLEX SIG DiscontinuedHPV VACCINE (No Doses Required)CompletedMENINGITIS VACCINEAged OutNo longer eligible based on patient's age to complete this topicsDNA (Cologuard) Discontinued Medical Devices ImplantedTypeAreaManufacturerDevice IdentifierShelf Expiration DateModel / Serial / LotStent Shahab Abreu ([place]) Gabino [id number] Clso-10-7 - [id number] Implanted:Qty: 1 on 02/02/2024 by [facility]: MouthC[employer] [id number] / / [id number] Procedures Procedure NamePriorityDate/TimeAssociated DiagnosisCommentsPR COLLECTION VENOUS BLOOD BRRMPZLWVYIQPgcmopo17/17/2025 1:34 PM 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 Tired BASIC METABOLIC PANEL (BFP)Yzyeeqo6802/23/2025 Tired HEMOGRAM PLATELET DIFF (BFP)Trfnlvv1402/23/2025 Tired DE COLLECTION VENOUS BLOOD ONQFMHVQXDDIQogrrup51/05/2025 11:27 AM 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 Hospital discharge follow-up BASIC METABOLIC PANEL (BFP)Bvaivaw3701/12/2025 Hospital discharge follow-up ROUTINE UA WITH MICROSCOPIC REFLEX TO FNMRHQYKNCI30/31/2025 3:[address] IMAGING - HIM MYIXGvircjh46/31/2025ESR MARTINEZREN (BFP)Fxcwchq2512/17/2024 10:10 AM CDT 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) Encounter for long-term (current) use of medications C-REACTIVE PROTEIN CRP ([facility])Xntrahw1012/17/2024 9:59 AM CDT 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) Encounter for long-term (current) use of medications DE COLLECTION VENOUS BLOOD YQWSFEKLXYOKWigwlwj26/10/2025 9:05 AM CDT 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) Encounter for long-term (current) use of medications ALT (BFP)Pzytvpz5612/17/2024 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) Encounter for long-term (current) use of medications AST (BFP)Rontznl6912/17/2024 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) Encounter for long-term (current) use of medications CREATININE (BFP)Zalesxr3112/17/2024 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) Encounter for long-term (current) use of medications ALBUMIN (BFP)Ingwtcj2712/17/2024 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) Encounter for long-term (current) use of medications HEMOGRAM PLATELET DIFF (BFP)Plynhbj5812/17/2024 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) Encounter for long-term (current) use of medications MA DIAGNOSTIC DIGITAL OTEXPvwmngc21/03/2025 10:58 AM CDT BI-RADS category 3 mammogram result VITAMIN B12 ([facility])Ugoisji1112/08/2024 3:46 PM CDT Other fatigue Shortness of breath FERRITIN ([facility])Kexpjpi4212/08/2024 3:46 PM CDT Other fatigue Shortness of breath TSH WITH FREE T4 REFLEX ([facility])Kfquqji4112/08/2024 3:46 PM CDT Other fatigue Shortness of breath DE COLLECTION VENOUS BLOOD KRXNIIPWRONJXglhylc82/01/2025 2:53 PM CDT Other fatigue Shortness of breath HEMOGRAM WITH PLATELETS (BFP)Vhcwjph7012/08/2024 Other fatigue Shortness of breath LIPID NHSJXSFRwiqdiz98/22/2025 10:31 AM CDT Dilated cardiomyopathy (H) Hyperlipidemia LDL goal <100 COMPREHENSIVE METABOLIC PANEL NO GLUCOSE (OUTREACH)Nruncif6002/16/2024 8:55 AM 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 Chronic kidney disease, stage 4 (severe) (H) CBC WITH ITPVUTLUDFaadzly37/02/2024 6:08 AM 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 Anemia, unspecified Chronic kidney disease, unspecified DX BONE HAFWWCBXtmcrdn50/14/2021 Screening for osteoporosis MDNKJSYWLBLNruumuy77/30/2017 7:10 AM CDT from Last 3 Months or Most Recently Relevant to Health Maintenance Results * (ABNORMAL) HEMOGRAM PLATELET DIFF (BFP) (02/23/2025) Only the most recent of2 resultswithin the time period is included. ComponentValueRef RangeTest MethodAnalysis TimePerformed AtPathologist Signature WBC4.44.0 - 11 10*9/LBFP INTERNALRBC Count3.61(A)3.8 - 5.2 10*12/LBFP INTERNAL Qrcpvnnyyb09.311.7 - 15.7 g/dLBFP IXHBHOLOAuosmbybbr06.735.0 - 47.0 %BFP NQHGMHRLJEC21.878 - 100 fLBFP ZZJCFWYYDLL23.1(A)26 - 33 pgBFP GVZKWWCFIETZ19.531 - 36 g/dLBFP INTERNALPlatelet Edwlw295(A)150 - 375 10^9/LBFP INTERNAL% Zsqpabrahqbt21.6%BFP INTERNAL% Kztexmcvith411.4%BFP INTERNAL% Vletkuvob59.0%BFP INTERNALSpecimen (Source)Anatomical Location / LateralityCollection Method / VolumeCollection TimeReceived WbbxJfdja11/17/2025 Narrative Authorizing ProviderResult TypeResult Patricia Cloud MDLAB - NON-BEAKER BLOOD LABSFinal ResultPerforming OrganizationAddressCity/State/ZIP CodePhone Number [facility] [address] [place] [address] [phone] * (ABNORMAL) Basic Metabolic Panel (BFP) (02/23/2025) Only the most recent of2 resultswithin the time period is included. ComponentValueRef RangeTest MethodAnalysis TimePerformed AtPathologist Signature Carbon Icyvvma94.820 - 32 mmol/LBFP INTERNALCreatinine1.240.60 - 1.30 mg/dLBFP ESKFAYXVQgiymdu775(A)60 - 99 mg/dLBFP ZAABJGPWGcdrzx321.8135 - 146 mmol/LBFP INTERNALPotassium3.893.5 - 5.3 mmol/LBFP FAFSBOTMDdfbdbrw991.498 - 110 mmol/LBFP INTERNALUrea Hwuszuyr085 - 25 mg/dLBFP INTERNALCalcium9.38.6 - 10.3 mg/dLBFP INTERNALBUN/Creatinine Qxgql625 - 32BFP INTERNALGFR Kjpeirof41(A)>60 ml/min/1.34y3OCT INTERNALSpecimen (Source)Anatomical Location / Laterality Collection Method / VolumeCollection TimeReceived LcynAmzlg00/17/2025 Narrative Authorizing ProviderResult TypeResult Patricia Cloud MDLAB - NON-BEAKER BLOOD LABSFinal ResultPerforming OrganizationAddressCity/State/ZIP CodePhone Number [facility] [address] [place] [address] [phone] * UA with Microscopic reflex to Culture (01/07/2025 3:36 PM CDT)ComponentValue Ref RangeTest MethodAnalysis TimePerformed AtPathologist SignatureColor Urine StrawColorless, Straw, Light Yellow, Hvfamn9001/07/2025 3:55 PM CDTRH LABORATORY Appearance IxmasOozatMmxfb55/31/2025 3:55 PM CDTRH LABORATORYGlucose Urine NegativeNegative mg/dL01/07/2025 3:55 PM CDTRH LABORATORYBilirubin Urine QbcaqcyzBcfkxnvj80/31/2025 3:55 PM CDTRH LABORATORYKetones UrineNegative Negative mg/dL01/07/2025 3:55 PM CDTRH LABORATORYSpecific Cubero Urine1.004 1.003 - 1.7585001/07/2025 3:55 PM CDTRH LABORATORYBlood UrineNegativeNegative 01/07/2025 3:55 PM CDTRH LABORATORYpH Urine6.05.0 - 7.010 3:55 PM CDT RH LABORATORYProtein Albumin UrineNegativeNegative mg/dL01/07/2025 3:55 PM CDT RH LABORATORYUrobilinogen UrineNormalNormal mg/dL01/07/2025 3:55 PM CDTRH LABORATORYNitrite IrybdTjioqxvzRmgfgpkc68/31/2025 3:55 PM CDTRH LABORATORY Leukocyte Esterase CustePuhuukycSobqpzno62/31/2025 3:55 PM CDTRH LABORATORYRBC Urine<1<=2 /HPF01/07/2025 3:55 PM CDTRH LABORATORYWBC Urine<1<=5 /HPF 01/07/2025 3:55 PM CDTRH LABORATORYHyaline Casts Urine1<=2 /LP01/07/2025 3:55 PM CDTRH LABORATORYSpecimen (Source)Anatomical Location / LateralityCollection Method / VolumeCollection TimeReceived TimeUrineURINE SPECIMEN / UnknownNon- blood Collection / Hipkfzg2101/07/2025 3:36 PM CDT1 3:44 PM CDT Narrative LABORATORY - 01/07/2025 3:55 PM CDT Urine Culture not indicated Authorizing ProviderResult TypeResult StatusEllis Duncan MDLAB - URINE ORDERABLESFinal ResultPerforming OrganizationAddressCity/State/ZIP CodePhone Number [facility] [address] Lab (1st floor, no room number) [place] [address], [facility] * CT Imaging - HIM Scan (01/07/2025)Anatomical RegionLateralityModalityComputed Tomography Narrative Authorizing ProviderResult TypeResult StatusPatient ReportedIMG CT ORDERABLES Final Result * ESR WESTERGREN (P) (12/17/2024 10:10 AM CDT)ComponentValueRef RangeTest MethodAnalysis TimePerformed AtPathologist SignatureSed Rate20 - 20 mm/hrBFP INTERNALSpecimen (Source)Anatomical Location / LateralityCollection Method / VolumeCollection TimeReceived GeeeKsrad70/10/2025 10:10 AM CDT Narrative Authorizing ProviderResult TypeResult StatusGavi Cloud MDLAB - NON-BEAKER BLOOD LABSFinal ResultPerforming OrganizationAddressCity/State/ZIP CodePhone Number [facility] [address] [place] [address] [address] [place] [address], [facility] * C-Reactive Protein CRP ([facility]) (12/17/2024 9:59 AM CDT)ComponentValueRef Range Test MethodAnalysis TimePerformed AtPathologist SignatureC-Reactive Protein <3.0<8.0 mg/LQUEST DIAGNOSTICS-WINDOM AREA HOSPITALpecimen (Source)Anatomical Location / LateralityCollection Method / VolumeCollection TimeReceived TimeBlood 12/17/2024 9:59 AM CDT1 7:37 AM CDT Narrative Resulting Agency Comment Performing Organization Information: ? CB ? [facility] ? [address] [place] [address] ? Serafin Tse Authorizing ProviderResult TypeResult StatusKara E Ai MDLAB - NON-BEAKER BLOOD LABSFinal ResultPerforming OrganizationAddressCity/State/ZIP CodePhone Number [facility] [address] [place], [place] [phone] [place] [address] * (ABNORMAL) Creatinine (BFP) (12/17/2024)ComponentValueRef RangeTest Method Analysis TimePerformed AtPathologist SignatureCreatinine1.210.60 - 1.30 mg/dL BFP INTERNALGFR Ysxcctfo96(A)>60 ml/min/1.08k3STE INTERNALSpecimen (Source) Anatomical Location / LateralityCollection Method / VolumeCollection Time Received BcgjXmiof26/10/2025 Narrative Authorizing ProviderResult TypeResult StatusKara E Ai MDLAB - NON-BEAKER BLOOD LABSFinal ResultPerforming OrganizationAddressCity/State/ZIP CodePhone Number [facility] [address] [place] [phone], [facility] * AST (BFP) (12/17/2024)ComponentValueRef RangeTest MethodAnalysis TimePerformed AtPathologist CsxufthggMOB770 - 35 U/LBFP INTERNALSpecimen (Source)Anatomical Location / LateralityCollection Method / VolumeCollection TimeReceived Time Blood12/17/2024 Narrative Authorizing ProviderResult TypeResult StatusKara E Ai MDLAB - NON-BEAKER BLOOD LABSFinal ResultPerforming OrganizationAddressCity/State/ZIP CodePhone Number [facility] [address] [place] [address], [facility] * ALT ([facility]) (12/17/2024)ComponentValueRef RangeTest MethodAnalysis TimePerformed AtPathologist UxlqsqrguTQS872 - 32 U/LBFP INTERNALSpecimen (Source)Anatomical Location / LateralityCollection Method / VolumeCollection TimeReceived Time Blood12/17/2024 Narrative Authorizing ProviderResult TypeResult StatusKara E Ai MDLAB - NON-BEAKER BLOOD LABSFinal ResultPerforming OrganizationAddressCity/State/ZIP CodePhone Number [facility] [address] [place] [address] [place] [address] * Albumin ([facility]) (12/17/2024)ComponentValueRef RangeTest MethodAnalysis Time Performed AtPathologist SignatureAlbumin4.53.6 - 5.1 g/dLBFP INTERNALSpecimen (Source)Anatomical Location / LateralityCollection Method / VolumeCollection TimeReceived TymyIbupc33/10/2025 Narrative Authorizing ProviderResult TypeResult StatusKara E Ai MDLAB - NON-BEAKER BLOOD LABSFinal ResultPerforming OrganizationAddressCity/State/ZIP CodePhone Number [facility] [address] [place] [address] * [place] Diagnostic Digital Left (12/10/2024 10:58 AM CDT)Anatomical Region LateralityModalityBreastLeftMammographySpecimen (Source)Anatomical Location / LateralityCollection Method / VolumeCollection TimeReceived Time Impressions 12/10/2024 10:57 AM CDT IMPRESSION: BI-RADS CATEGORY: 2 - Benign. RECOMMENDED FOLLOW-UP: Routine yearly mammography beginning at age 40 or as discussed with your provider. The results and recommendation were communicated to the patient at the conclusion of today's appointment. CROW AVALOS MD Narrative 12/10/2024 10:57 AM CDT DIAGNOSTIC MAMMOGRAM, LEFT, DIGITAL w/CAD - 12/10/2024 10:55 AM HISTORY: ??Short interval follow-up for left breast calcifications. COMPARISON: ??Prior mammograms in May and June 2024. BREAST DENSITY: There are scattered areas of fibroglandular density. FINDINGS: ??On today's examination, the previously noted subcentimeter calcifications [...] conclusion of today's appointment. CROW AVALOS MD Authorizing ProviderResult TypeResult StatusKara Tobi GannonAi MDIMG MAMMOGRAPHY ORDERABLESFinal Result * TSH WITH FREE T4 REFLEX ([facility]) (12/08/2024 3:46 PM CDT)ComponentValueRef RangeTest MethodAnalysis TimePerformed AtPathologist SignatureTSH1.980.40 - 4.50 mIU/LQUEST [facility]-SAIGEpeccount includes the [facility]n (Source)Anatomical Location / LateralityCollection Method / VolumeCollection TimeReceived TimeBlood 12/08/2024 3:46 PM CDT1 4:46 AM CDT Narrative Resulting Agency Comment Performing Organization Information: ? CB ? [facility] ? [address] [place] [address] ? Serafin Tse Authorizing ProviderResult TypeResult StatusStephanie Radha DAVE BLOOD LABSFinal ResultPerforming OrganizationAddressCity/State/ZIP CodePhone Number [facility] [address] [phone] * VITAMIN B12 ([facility]) (12/08/2024 3:46 PM CDT)ComponentValueRef RangeTest Method Analysis TimePerformed AtPathologist SignatureVitamin [id number] - 1,100 pg/mL [facility]-nextsocialABRAZO ARIZONA HEART HOSPITALComment: Please Note: Although the reference range for [...] / LateralityCollection Method / Volume Collection TimeReceived SwqxYrkzg18/01/2025 3:46 PM CDT1 4:46 AM CDT Narrative Resulting Agency Comment Performing Organization Information: ? CB ? [facility] ? [address] [place] [address] ? Serafin Tse Authorizing ProviderResult TypeResult StatusStEncompass Health Rehabilitation [facility] BLOOD LABSFinal ResultPerforming OrganizationAddressCity/State/ZIP CodePhone Number [facility] [address] [phone] * FERRITIN ([facility]) (12/08/2024 3:46 PM CDT)ComponentValueRef RangeTest Method Analysis TimePerformed AtPathologist PxubsonhnWqxvbyhx1115 - 288 ng/mLQUEST DIAGNOSTICS-WINDOM AREA HOSPITALpecimen (Source)Anatomical Location / LateralityCollection Method / VolumeCollection TimeReceived DqwdGkbhv09/01/2025 3:46 PM CDT 12/09/2024 4:46 AM CDT Narrative Resulting Agency Comment Performing Organization Information: ? CB ? [facility] ? [address] [place] [address] ? Serafin Tse Authorizing ProviderResult TypeResult StatusStepSame Day Surgery Center [facility] BLOOD LABSFinal ResultPerforming OrganizationAddressty/State/ZIP CodePhone Number [facility]ODABRAZO [facility] [address] [phone] * (ABNORMAL) Hemogram Platelet ([facility]) (12/08/2024)ComponentValueRef RangeTest MethodAnalysis TimePerformed AtPathologist SignatureWBC4.84.0 - 11 10*9/LBFP INTERNALRBC Count3.48(A)3.8 - 5.2 10*12/LBFP CYQUPPRGWgnrarohti88.911.7 - 15.7 g/dLBFP DWGOGQCRJgjlxeicrs38.335.0 - 47.0 %BFP NOGFMWWLHSH368.3(A)78 - 100 fL BFP OZFNCCQBXMJ02.2(A)26 - 33 pgBFP XKHJJDOXVBDM85.731 - 36 g/dLBFP INTERNAL RDW12.4%BFP INTERNALPlatelet Vofmq389(A)150 - 375 10^9/LBFP INTERNALSpecimen (Source)Anatomical Location / LateralityCollection Method / VolumeCollection TimeReceived TxqsGcbbb93/01/2025 Narrative Authorizing ProviderResult TypeResult StatusStephanorlin PICHARDO - NON-BEAKER BLOOD LABSFinal ResultPerforming OrganizationAddressCity/State/ZIP CodePhone Number [facility] [address] [address] * Lipid Profile (11/29/2024 10:31 AM CDT)ComponentValueRef RangeTest Method Analysis TimePerformed AtPathologist InlwurmmsLgchrmhlmqn609<200 mg/dL 11/29/2024 2:36 PM CDTUU EHPXIHRFFWPaevztlloflld923<150 mg/dL11/29/2024 2:36 PM CDTUU LABORATORYDirect Measure HDL57>=50 mg/dL11/29/2024 2:36 PM CDTUU LABORATORYLDL Cholesterol Nskvmdqnfl49<100 mg/dL11/29/2024 2:36 PM CDTUU LABORATORYComment:LDL calculated using the Friedewald equation.Non HDL Sewmcgbylbl124<130 mg/dL11/29/2024 2:36 PM CDTUU LABORATORYPatient Fasting > 8hrs?Yes11/29/2024 2:36 PM CDTRH LABORATORYSpecimen (Source)Anatomical Location / LateralityCollection Method / VolumeCollection TimeReceived Time BloodSTRUCTURE OF RIGHT HAND / UnknownVenipuncture / Ufybrcw31/ 10:31 AM CDT11/29/2024 10:31 AM CDT Narrative [facility] - [...] Borderline High: 130 - 159 mg/dL High: ??160 - 189 mg/dL Very High: >= 190 mg/dL Non HDL Cholesterol Desirable: < 130 mg/dL Above Desirable: 130 - 159 mg/dL Borderline High: 160 - 189 mg/dL High: 190 - 219 mg/dL Very High: >= 220 mg/dL Authorizing ProviderResult TypeResult StatusStnat Farah MDLAB - BLOOD ORDERABLESFinal ResultPerforming OrganizationAddressCity/State/ZIP CodePhone Number LABORATORY [facility] [address] [facility] [address], [address] [place] [address], [facility] LABORATORY [facility] [address] [facility] Lab (1st floor, no room number) [place] [address], [facility] * (ABNORMAL) Comprehensive Metabolic Panel No Glucose (OUTREACH) (02/16/2024 8:55 AM 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)ComponentValueRef RangeTest MethodAnalysis TimePerformed At Pathologist QqaedwplwCoycxv261315 - 145 mmol/L104/18/2023 10:34 AM [facility] LABORATORYPotassium4.03.4 - 5.3 mmol/L104/18/2023 10:34 AM [facility] LABORATORY Carbon Dioxide (CO2)2422 - 29 mmol/L104/18/2023 10:34 AM [facility] LABORATORYAnion Sqj116 - 15 mmol/L104/18/2023 10:34 AM [facility] LABORATORYUrea Kmgdxhjt62.8(H)8.0 - 23.0 mg/dL02/16/2024 10:34 AM [facility] LABORATORYCreatinine1.17(H)0.51 - 0.95 mg/dL02/16/2024 10:34 AM [facility] LABORATORYGFR Xqedjiwu41(L)>60 mL/min/1.73m2 02/16/2024 10:34 AM [facility] LABORATORYCalcium9.18.8 - 10.4 mg/dL02/16/2024 10:34 AM [facility] LABORATORYComment:Reference intervals for this test were updated on 09/23/2023 to reflect our healthy population more accurately. There may be differences in the flagging of prior results with similar values performed w ith this method. Those prior results can be interpreted in the context of the updated reference intervals.Svmussvx75819 - 107 mmol/L104/18/2023 10:34 AM [facility] LABORATORYAlkaline Clyorpzrrsm9032 - 150 U/L104/18/2023 10:34 AM [facility] DALONYXMHYJAL09(H)0 - 45 U/L104/18/2023 10:34 AM [facility] NJUZULGBQFEBJ91(H)0 - 50 U/L104/18/2023 10:34 AM [facility] LABORATORYProtein Total5.7(L)6.4 - 8.3 g/dL 02/16/2024 10:34 AM [facility] LABORATORYAlbumin4.03.5 - 5.2 g/dL02/16/2024 10:34 AM [facility] LABORATORYBilirubin Total0.9<=1.2 mg/dL02/16/2024 10:34 AM [facility] LABORATORYSpecimen (Source)Anatomical Location / LateralityCollection Method / VolumeCollection TimeReceived TimeBloodBLOOD SPECIMEN / UnknownVenipuncture / Vzmgyzf2402/16/2024 8:55 AM CST02/16/2024 10:06 AM [facility] Narrative Authorizing ProviderResult TypeResult StatusBridget Mariama Thomason APRN CNPLAB - BLOOD ORDERABLESFinal ResultPerforming OrganizationAddressCity/State/ZIP Code Phone Number LABORATORY [facility] [address] [facility] (1st floor, no room number) [place] [address], [facility] * (ABNORMAL) CBC with platelets (02/09/2024 6:08 AM 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)ComponentValueRef Range Test MethodAnalysis TimePerformed AtPathologist SignatureWBC Count4.74.0 - 11.0 10e3/uL02/09/2024 9:13 AM [facility] LABORATORYRBC Count3.32(L)3.80 - 5.20 10e6/uL02/09/2024 9:13 AM [facility] KPXAAICCLXIerhvwuiid55.5(L)11.7 - 15.7 g/dL 02/09/2024 9:13 AM [facility] CAPJNWQKWUTivaqrpbzm09.0(L)35.0 - 47.0 %02/09/2024 9:13 AM [facility] MBPRKXHJPHEHL092(H)78 - 100 fL02/09/2024 9:13 AM [facility] FXCQMILZSQDQZ75.6(H)26.5 - 33.0 pg02/09/2024 9:13 AM [facility] JRLNLPNMHDZENN49.8 31.5 - 36.5 g/dL02/09/2024 9:13 AM [facility] DTJFWUVJHHWZN69.010.0 - 15.0 % 02/09/2024 9:13 AM [facility] LABORATORYPlatelet Vhqyn400286 - 450 10e3/uL 02/09/2024 9:13 AM [facility] LABORATORYSpecimen (Source)Anatomical Location / LateralityCollection Method / VolumeCollection TimeReceived TimeBloodBLOOD SPECIMEN / UnknownVenipuncture / Lqpfvzm1602/09/2024 6:08 AM CST02/09/2024 8:57 AM 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 Narrative Authorizing ProviderResult TypeResult StatusBridget Mariama Thomason APRN CNPLAB - BLOOD ORDERABLESFinal ResultPerforming OrganizationAddressCity/State/ZIP Code Phone Number [facility] Lab [address] [facility] Lab (1st floor, no room number) [place] [address] * Dexa hip/pelvis/spine* (12/21/2020)Anatomical RegionLateralityModalityDexa Other Narrative 12/21/2020 [address] [facility], [address] [place] [address] [place] : 1945 Req Phys: Josiah Stockton MD Clinic: [facility] Patient name: GRISELDA LAI [facility] Dept No: [id number] BONE DENSITY Exam Date: 12/21/2020 EXAM: BONE MINERAL DENSITY (DEXA) EXAM LOCATION: [facility] DATE/TIME: 12/21/2020 3:46 PM INDICATION: Screening for osteoporosis. COMPARISON: Most recent examination 10/05/2001. TECHNIQUE: The study was performed using DEXA in the AP lumbar spine and AP femur using a [employer]. FINDINGS: Using DEXA, the results [...] physician: 12/22/2020 11:39:00AM Page 1 of 1 Authorizing ProviderResult TypeResult StatusBrian Jarod BARRIENTOS DEXA ORDERABLESFinal Result * COLONOSCOPY (08/06/2016 7:10 AM CDT)ComponentValueRef RangeTest MethodAnalysis TimePerformed AtPathologist SignatureCOLONOSCOPYFairMarshall Regional Medical Center Patient Name: Griselda Lai ? Procedure Date: 08/06/2016 7:10 AM ? Date of : 1945 ? Admit Type: Outpatient Age: 71 ? Gender: Female Attending MD: Beatriz Velasquez MD ?Total Sedation Time: 21 minutes of continuous bedside 1:1. Instrument Name: 131 ? Procedure: ?Colonoscopy Indications: ?Screening for colorectal malignant neoplasm Providers: ?Beatriz Velasquez MD (Doctor) Referring MD: ? Roslyn Sandoval MD (Referring MD) Medicines: ?Fentanyl 200 micrograms IV, Midazolam 3 mg IV Complications: ?No immediate complications. Procedure: ?Pre-Anesthesia Assessment: ?- Prior to the procedure, a History and Physical ?was performed, and patient medications and ?allergies were reviewed. The patient is competent. ?The risks and benefits of the procedure and the ?sedation options and risks were discussed with the ?patient. All questions were answered and informed ?consent was obtained. Patient identification and ?proposed procedure were verified by the physician ?and the nurse in the endoscopy suite. Mental Status ?Examination: alert and oriented. Airway ?Examination: normal oropharyngeal airway and neck ?mobility. Respiratory Examination: clear to ?auscultation. CV Examination: normal. Prophylactic ?Antibiotics: The patient does not require ?prophylactic antibiotics. Prior Anticoagulants: The ?patient has taken aspirin, last dose was 5 days ?prior to procedure. ASA Grade Assessment: II - A ?patient with mild systemic disease. After reviewing ?the risks and benefits, the patient was deemed in ?satisfactory condition to undergo the procedure. ?The anesthesia plan was to use moderate sedation / ?analgesia (conscious sedation). Immediately prior ?to administration of medications, the patient was ?re-assessed for adequacy to receive sedatives. The ?heart rate, respiratory rate, oxygen saturations, ?blood pressure, adequacy of pulmonary ventilation, ?and response to care were monitored throughout the ?procedure. The physical status of the patient was ?re-assessed after the procedure. ?After obtaining informed consent, the colonoscope ?was passed under direct vision. Throughout the ?procedure, the patient's blood pressure, pulse, and ?oxygen saturations were monitored continuously. The ?Dacudas Colonoscope Model #PCF-H190L, ?Endora#131, SN#[id number] was introduced through the ?anus and advanced to 4 cm into the ileum. The ?colonoscopy was performed without difficulty. The ?patient tolerated the procedure well. The quality ?of the bowel preparation was good. ? Findings: ? The perianal exam findings include a perianal rash. ? The digital rectal exam was normal. Pertinent negatives include normal ? sphincter tone and no palpable rectal lesions. ? The terminal ileum appeared normal. ? The exam was otherwise without abnormality on direct and retroflexion ? views. ? Impression: ? - Perianal rash found on perianal exam. ?- The examined portion of the ileum was normal. ?- The examination was otherwise normal on direct ?and retroflexion views. ?- No specimens collected. Recommendation: ? - Repeat colonoscopy is not recommended only if new ?symptoms arise. You wound be due for a colonoscopy ?in 10 years but we do not recommend routine ?screening after 80. ?- Calmoseptine ointment as needed for perianal ?irritation. ? Procedure Code(s): ? --- Professional --- ? 06729, Colonoscopy, flexible; diagnostic, including collection of ? specimen(s) by brushing or washing, when performed (separate procedure) Diagnosis Code(s): ? --- Professional --- ? Z12.11, Encounter for screening for malignant neoplasm of colon ? R21, Rash and other nonspecific skin eruption CPT copyright 2016 [employer]. All rights reserved. The codes documented in this report are preliminary and upon development executive review may be revised to meet current compliance requirements. Beatriz Velasquez MD 08/06/2016 8:14:05 AM I was physically present for the entire viewing portion of the exam. Beatriz Velasquez MD Number of Addenda: 0 Note Initiated On: 08/06/2016 7:10 AM MRN: ?[id number] Procedure Date: ? 08/06/2016 7:10:03 AM Scope Withdrawal Time: 0 hours 8 minutes 24 seconds Total Procedure Duration: 0 hours 21 minutes 11 seconds Estimated Blood Loss: ? Scope In: 7:46:13 AM Scope Out: 8:07:24 AMRADIOLOGY RESULTSSpecimen (Source)Anatomical Location / LateralityCollection Method / VolumeCollection TimeReceived Time08/06/2016 7:10 AM CDT Narrative Authorizing ProviderResult TypeResult StatusRoslyn Sandoval MDPROCEDURESFinal ResultPerforming OrganizationAddressCity/State/ZIP CodePhone Number RADIOLOGY RESULTS from Last 3 Months or Most Recently Relevant to Health Maintenance Insurance * Guarantor: Griselda Lai TypeRelation to PatientDate of BirthPhone Billing AddressPersonal/NznaflKnvt1945 [address] [place] [address] * Guarantor: Griselda Lai TypeRelation to PatientDate of BirthPhone Billing AddressPersonal/MiukimBhfq1945 NONE (Work) [address] [place] [address] Advance Directives For more information, please contact: [phone] TypeDate RecordedPatient RepresentativeExplanationAdvance Directives and Living Will4POLST 02-06-2024 * Full Code (Latest Code Status on File) Date ActivatedDate VjefmcfmgwiNrgatuvm80/24/2024 1:10 PM02/05/2024 3:46 PMAll basic and advanced life-sustaining interventions are performed as appropriate QuestionAnswerCommentsCode status determined by:* Discussion with patient/ legal decision maker Care Teams Team MemberJaniehipSpecialtyStart DateEnd Date Gavi Cloud MD [address] [address] PCP - GeneralFamily Medicine08/17/24 Hector Goode MD [address] [address] Neurolog05/01/17 John Cancino MD [address] [address] [facility] Medicine - Sports Medicine07/30/17 Rivas Delcid MD [address] [facility] [address] [place] [address] Assigned Surgical Xxpqhnli33/23/24 Blue Mensah MD Assigned Heart and Vascular Wtuofkfa60/23/25 Jasmin Maradiaga PA-C [address] [address] Assigned PCP03/01/25
--- OUTSIDE RECORDS SUMMARY | 2025-03-09 12:59 | XMS_ITS | Encounter Summary ---
Author Organization [place] Address [facility] [facility] [place] [address] Care Team Providers Care Green Building Energy Engineer Name Role Phone Hector Goode MD Unavailable John Cancino MD Unavailable Rivas Delcid MD Unavailable Gavi Cloud MD Primary Care Provider Blue Mensah MD Unavailable Un available Gavi Cloud MD Unavailable [phone] Reason for Visit * ReasonOnset RcowVyorahzzVwkeenvtnig24/10/2025 Encounter Details DateTypeDepartmentCare Team (Latest Contact Info)Vikfwkuffyj86/10/2025Telephone [facility] Physicians [address] [place] [address] [address] [place] [address] Gavi Cloud MD [address] [place] [address] [address] [place] [address] Hypotension Social History Tobacco UseTypesPacks/DayYears UsedDateSmoking Tobacco: NeverPassive [...] abandoned building, in an overnight usp, or couch-surfing.)Yes02/02/2024re you worried about losing your [...] InformationValueDate RecordedSex Assigned at BirthNot on fileLegal GjqVxjohq72/04/2012 2:58 AM CSTGender IdentityNot on file Sexual OrientationNot on filedocumented as of this encounter Miscellaneous Notes * Telephone Encounter - Blue Emmanuel MA - 02/22/2025 8:56 AM CST Pt called the CS line wanting a new BP cuff and fall alert necklace. Pt called and I advised to make an appt to discuss these further. I scheduled pt for 02/23/2025 at 1;15 pm with KEP to discuss the DME orders further. Ryan Emmanuel CNA on February 22, 2025 at 9:08 AM TAL SALES REPRESENTATIVE * Telephone Encounter - Estephania oLaiza CMA - 02/17/2025 11:14 AM CST Nurse from [facility] called stating they have to notify PCP with BP changes. Pt is following up with her lard maker whom manages her BP medications. TAL SALES REPRESENTATIVE * Telephone Encounter - Blue Emmanuel MA - 02/16/2025 5:10 PM CST Received fax from [facility] about pt's vitals. Pt had a blood pressure of 92/45 reported on the report. Pt was called and questioned on how she is feeling. Pt is feeling fine right now, no blurred vision, loss of vision, dizziness, or lightheadedness. Pt was instructed to call her lard maker to inform them of the low blood pressure and to find out next steps with them. Pt was informed if any symptoms of low blood pressure occur, she needs to be seenin the ER [facility]. Pt was unable to get a current blood pressure as the batteries were in her BP machine. Pt states that she will call the clinic tomorrow with her BP readings when she is able to get new batteries. Ryan Emmanuel CNA on February 16, 2025 at 5:31 PM TAL SALES REPRESENTATIVE documented in this encounter Plan of Treatment NamePriorityAssociated DiagnosesDate/TimeENDOSCOPIC RETROGRADE CHOLANGIOPANCREATOGRAPHY, COMPLEX Cholecystitis Choledocholithiasis with acute cholecystitis documented as of this encounter Visit Diagnoses Not on filedocumented in this encounter Additional Health Concerns AssessmentNoted TimePHQ-9 Depression Total Score: 8004/30/2023 2:24 PM DIGITAL SALES REPRESENTATIVE documented as of this encounter Care Teams Team MemberRelationshipSpecialtyStart DateEnd Date Gavi Cloud MD [address] [place] [address] PCP - GeneralFamily Medicine08/17/24 Hector Goode MD [address] [address] MDNeurolog05/01/17 John Cancino MD [address] [place] [address] [facility] Medicine - Sports Medicine07/30/17 Rivas Delcid MD [address] [facility] [address] [place] [address] Assigned Surgical Tdnxrqgb49/23/24 Blue Mensah MD Assigned Heart and Vascular Blhsfjqd63/23/25 Gavi Cloud MD [address] [facility] [address] [place] [address] Assigned PCP01/31/2512documented as of this encounter
--- OUTSIDE RECORDS SUMMARY | 2025-03-09 12:59 | XMS_ITS | Clinical Summary ---
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 Name Role Phone Physicians, [facility] Provi luis Allergies Active AllergyReactionsCriticalityNoted DateCommentsCortisone*Unknown, UeeuptwwhywaGgbkdq68/22/2007 Cortisone shots Sulfasalazine*Ixfaoot0006/16/1998 Medications MedicationSigDispense QuantityRefillsLast FilledStart DateEnd DateStatus tocilizumab (Actemra) 80 mg/4 mL (20 mg/mL) soln injection Active PREDNISONE ORAL 3 mg.Active folic acid/multivit-min/lutein (CENTRUM SILVER ORAL) Take 1 Tablet by mouth once daily.Active aspirin (ECOTRIN) 81 mg enteric coated tablet Take 1 Tablet by mouth once daily.Active betaxoloL (BETOPTIC) 0.5 % ophthalmic solution INSTILL 1 DROP INTO RIGHT EYE TWICE A DAY01/02/2023ctive carvediloL (COREG) 12.5 mg tablet 07/31/2023ctive cyclobenzaprine (FLEXERIL) 5 mg tablet TAKE 1 TABLET BY MOUTH 3 TIMES DAILY NEEDED FOR MUSCLE TOGTNU4703/28/2023ctive diazePAM (VALIUM) 2 mg tablet prn103/10/2023ctive dorzolamide (TRUSOPT) 2 % ophthalmic solution INSTILL 1 DROP INTO RIGHT EYE TWICE A DAYActive furosemide (LASIX) 20 mg tablet TAKE 1 TABLET DAILY PLUS 1 ADDITIONAL TABLET NEEDEDFOR EDEMA/SHORTNESS OF XXGUWP4907/31/2023ctive Gleevec 400 mg tablet Active irbesartan (AVAPRO) 75 mg tablet 07/31/2023ctive omeprazole (PRILOSEC) 40 mg Delayed-Release capsule prn10/16/2023ctive potassium chloride 10 mEq Extended-Release tablet 07/31/2023ctive rosuvastatin (CRESTOR) 5 mg tablet 07/31/2023ctive sertraline (ZOLOFT) 50 mg tablet TAKE 1.5 TABLETS BY MOUTH DAILY09/09/2023ctive spironolactone (ALDACTONE) 25 mg tablet 07/31/2023ctive tafluprost, PF, (ZIOPTAN) 0.0015 % ophthalmic solution INSTILL 1 DROP INTO RIGHT EYE LSLQJXZ2204/30/2023ctive BIPAP Indications:Complex sleep apnea syndromeASV/ BIPAP (E0471) machine for home use at pressure: EPAP 5-15cmw PS 0-20cmw IPAP max 25cmw, Choiceof mask (A7030 or A7034) w/full face cushion (A7031) x1/mo, nasal cushion (A7032) x2/mo, or nasal pillows (A7033) x 2/mo; Length of Need: 99 months; Frequency of use: Daily 1 Each 5Active Asmanex Twisthaler 220 mcg/ actuation (60) inhaler Indications:Mild persistent asthma without complication (HC),Chronic cough, Muscular dystrophy (HC)Inhale 1 Puff by mouth at bedtime. Rinse and spit after use. 3 Each 5Active Active Problems ProblemNoted DateDiagnosed DateMild persistent asthma without complication 05/21/2024 Encounters DateTypeDepartmentCare GpirDzkvbpelsnt92/01/2025 9:30 AM CDTAncillary Procedure [facility] [address] [place] [address] from Last 3 Months Immunizations ImmunizationAdministration DatesNext DueINFLUENZA, IIV3 PF (AGE >= 6 MO) 12/19/2011,12/06/2009Influenza A (H1N1), Ctbtpoivzua88/03/2009Influenza, High- dose Lqrygkztkoy17/09/2019,12/25/2015Influenza, High-dose Quadrivalent Rsrywhdnhwz11/14/2023,12/28/2021,12/15/2020,01/06/2020Influenza, IIV3 (Age >=3 years)11/21/2008,01/06/2008,12/19/2006,01/02/2006,12/16/2003,12/16/2002, 12/29/2000,02/28/2000,12/20/1998Influenza, UYJ642/,11/29/2016,12/30/2014 Influenza, IIV4 (=>6mos) MDV1Pneumococcal Poly,23-Valent (Pneumovax) 01/23/2018,12/19/2006Pneumococcal conj 13-Valent (Prevnar 13)02/19/2012Td, Preservative Free (age >= 7 Years)07/03/2009,04/10/2000,02/26/1993Zoster (Zostavax-ZVL, live)02/26/2007 Social History Tobacco UseTypesPacks/DayYears UsedDateSmoking Tobacco: NeverSmokeless Tobacco: Never Tobacco Cessation:Counseling Given: Not Answered CommentsUnknownSex and Gender InformationValueDate RecordedSex Assigned at BirthNot on fileLegal FmxDjuuxr65/04/2014 11:50 AM CDTGender IdentityNot on fileSexual OrientationNot on file Last Filed Vital Signs Vital SignReadingTime TakenCommentsBlood Jiygknzs597/6208 3:39 PM CDT Cxluw338610/14/2024 3:39 PM CDTTemperature--Respiratory Xttr860710/14/2024 3:39 PM CDTOxygen Zgrrptszxv08%10/14/2024 3:39 PM CDTInhaled Oxygen Concentration-- Yfagxy211.7 kg (222 lb)07/06/2024 2:52 PM YGWAattnx165.6 cm (5' 4)10/14/2024 3:39 PM CDTBody Mass Index38.11007/06/2024 2:52 PM CDT Plan of Treatment Health MaintenanceDue DateLast DoneCommentsDepression screening for age 12+ 1956Zoster (shinmayo) series for age 50+ (1 of 2) DEXA/DXA scan for age 65+01/04/2009Medicare Wellness for age 65+01/04/2009RSV vaccine for adults or (1 - 1-dose 75+ series)01/04/2019Tetanus booster , 04/10/2000, 02/26/1993COVID-19 vaccine series ( season)511/, 02/12/2022, 09/25/2021, Additional history exists Influenza Vaccine (#1)511/11/2018, 01/23/2018, 11/29/2016, Additional history existsBMI (ht and wt on same day) for age 18+604/, 4Pneumococcal series for age 50+Ngmauvwwg79/16/2018, 02/19/2012, 12/19/2006Hepatitis B series for 19+Aged OutNo longer eligible based on patient's age to complete this topic Procedures Procedure NamePriorityDate/TimeAssociated DiagnosisCommentsECHO TTE COMPLETE W ADYJPFSECdpnrjm96/01/2025 10:35 AM CDT Idiopathic cardiomyopathy (HC) from Last 3 Months Results * ECHO TTE COMPLETE W CONTRAST (01/08/2025 10:35 AM CDT)ComponentValueRef Range Test MethodAnalysis TimePerformed AtPathologist SignatureAORTIC VALVE MEAN PG5 mmHgEJECTION OLYPMCIJ02%LVEDD5.3cmAnatomical RegionLateralityModality UltrasoundSpecimen (Source)Anatomical Location / LateralityCollection Method / VolumeCollection TimeReceived Time01/08/2025 9:50 AM CDT Narrative 01/08/2025 12:22 PM CDT ECHOCARDIOGRAM GRISELDA LAI ?Accession#: ?? [id number] : ?1945 80 years Study Date: ?? 01/08/2025 9:50:25 AM Gender: F ? BP: ? 113/57 mmHg Height: 160.00 cm ? BSA: ?2.03 m? Weight: 102.00 kg ? Tech: ? MHR ?Referring MD: ADELFO ESQUEDA Site: [facility] Reading Location: MOBILE IP Patient Location: Inpatient. Procedure: 2D, 2D w/ Contrast, Color Doppler and Spectral Doppler. Indication for study: idiopathic cardiomyopathy Cardiac Rhythm: Regular and with premature ventricular contractions.Study quality: Technically limited. Imaging limitations: This study was subject to imaging limitations due to body habitus and a prominent lung artifact. Final Impressions: 1. Technically limited exam with poor acoustic windows. 2. Normal left ventricular size, normal wall thickness, mildly reduced global systolic function, calculated EF of 49 %. 3. Abnormal septal motion consistent with left bundle branch block. 4. Right ventricular cavity size is normal, global systolic RV function is normal. 5. No significant valve disease detected. Comparison There are no prior studies on this patient for comparison purposes. Chamber Sizes and Function Normal left ventricular size, normal wall thickness, mildly reduced global systolic function, calculated EF of 49 %. Abnormal (paradoxical) septal motion, consistent with left bundle branch block. Left atrial size is normal. Right ventricular cavity size is normal, global systolic RV function is normal. RV wall thickness is normal. The right atrium is normal. Right atrial volume index is 12 ml/m?. Right atrial area is 12 cm?. The pulmonary artery is of normal size and origin. The sinus ofValsalva is not well visualized. The ascending aorta is not evaluated. Valves, RV Pressures and Diastolic Function The aortic valve is trileaflet, no stenosis and no regurgitation. The mitral valve is normal in structure, no mitral regurgitation. Normal diastolic function for age. The tricuspid valve is normal instructure, regurgitation is not evident tricuspid regurgitation. The pulmonic valve is normal. No pulmonary regurgitation. Masses, Effusion, Shunts There is no pericardial effusion. The inferior vena cava is normal sized, respiratory size variation greater than 50%. No left to right shunting was detected by limited color flow Doppler interrogation of the interatrial septum. MEASUREMENTS AND CALCULATIONS 2-D Measurements and LV Function: LVID (d) ? 5.2 cm ? Planimetered EF 49 % LVID (s) ? 4.1 cm ? LV FS% (2D) ? 22 % IVS (d) ?0.9 cm ? LVOT diameter ?? 2.2 cm LVPW (d) ? 1.0 cm ? HR ?72 bpm Ao Sinus ? 3.3 cm ? LA Vol index ?24 ml/m2 Ao Sinus ULN 3.8 cm * ? RA Vol index ?12 ml/m2 Asc Ao ULN ?? 4.1 cm * ? RA area ? 12 cm? LA ? 3.4 cm ? RV Basal Diam ?? 2.8cm * Input BSA and age are outside of ranges, reported ? RV Mid Diam ? 2.1 cm values correspond to BSA = 1.9 and Age = 80 Diastology: Mitral ?Tissue Doppler E Peak 0.5 m/s ??e', Septum ? 0.05 m/s A Peak 0.8 m/s ??e', Lateral ?0.08 m/s E/A ?0.7 ?E/e' Average ?? 8.11 DT ? 304 msec Aortic Valve: Vmax ? 1.7 m/s ??SHANE (V) ?? 2.43 cm? VTI ?0.31 m ?? SHANE (I) ?? 2.49 cm? LVOT V max 1.1 m/s ??Max PG ?11 mmHg LVOT VTI ?? 0.20 m ?? Mean PG ?? 5 mmHg SV ? 77 ml ?Dim Index 0.65 SV index ?? 38 ml/m? CO ?5.5 l/min ?CI ?2.7 l/min/m? Mitral Valve: MVA ?2.5 cm? MV P 1/2 88 msec Tricuspid Valve and estimated PA pressures: TAPSE 1.8 cm Contrast documentation: 4ml ml diluted Definity, lot #[id number], [facility]# [id number] was administered peripherally to enhance visualization of all left ventricular segments. . This study was interpreted by an [facility] accredited facility. CC: HIM (med records) [facility], Med/Surg - IP [facility]. ??Final ?? Procedure Note John Diop MD - 01/08/2025 ECHOCARDIOGRAM GRISELDA LAI : 1945 80 years Study Date: 01/08/2025 9:50:25 AM Gender: F BP: 113/57 mmHg Height: 160.00 cm BSA: 2.03 m? Weight: 102.00 kg Tech: MHR Referring MD: ADELFO ESQUEDA Site: [facility] Reading Location: MOBILE IP Patient Location: Inpatient. Procedure: 2D, 2D w/ Contrast, Color Doppler and Spectral Doppler. Indication for study: idiopathic cardiomyopathy Cardiac Rhythm: Regular and with premature ventricular contractions.Study quality: Technically limited. Imaging limitations: This study was subject to imaging limitations due tobody habitus and a prominent lung artifact. Final Impressions: 1. Technically limited exam with poor acoustic windows. 2. Normal left ventricular size, normal wall thickness, mildly reducedglobal systolic function, calculated EF of 49 %. 3. Abnormal septal motion consistent with left bundle branch block. 4. Right ventricular cavity size is normal, global systolic RV functionis normal. 5. No significant valve disease detected. Comparison There are no prior studies on this patient for comparison purposes. Chamber Sizes and Function Normal left ventricular size, normal wall thickness, mildly reduced global systolic function, calculated EF of 49 %. Abnormal (paradoxical) septalmotion, consistent with left bundle branch block. Left atrial size isnormal. Right ventricular cavity size is normal, global systolic RVfunction is normal. RV wall thickness is normal. The right atrium isnormal. Right atrial volume index is 12 ml/m?. Right atrial area is 12cm?. The pulmonary artery is of normal size and origin. The sinus ofValsalva is not well visualized. The ascending aorta is not evaluated. Valves, RV Pressures and Diastolic Function The aortic valve is trileaflet, no stenosis and no regurgitation. Themitral valve is normal in structure, no mitral regurgitation. Normaldiastolic function for age. The tricuspid valve is normal in structure,regurgitation is not evident tricuspid regurgitation. The pulmonic valveis normal. No pulmonary regurgitation. Masses, Effusion, Shunts There is no pericardial effusion. The inferior vena cava is normal sized, respiratory size variation greater than 50%. No left to right shunting was detected by limited color flow Doppler interrogation of the interatrialseptum. MEASUREMENTS AND CALCULATIONS 2-D Measurements and LV Function: LVID (d) 5.2 cm Planimetered EF 49% LVID (s) 4.1 cm LV FS% (2D) 22% IVS (d) 0.9 cm LVOT diameter2.2 cm LVPW (d) 1.0 cm HR 72bpm Ao Sinus 3.3 cm LA Vol index 24ml/m2 Ao Sinus ULN 3.8 cm * RA Vol index 12ml/m2 Asc Ao ULN 4.1 cm * RA area 12cm? LA 3.4 cm RV Basal Diam2.8 cm * Input BSA and age are outside of ranges, reported RV Mid Diam2.1 cm values correspond to BSA = 1.9 and Age = 79 Diastology: Mitral Tissue Doppler E Peak 0.5 m/s e', Septum 0.05 m/s A Peak 0.8 m/s e', Lateral 0.08 m/s E/A 0.7 E/e' Average 8.11 DT 304 msec Aortic Valve: Vmax 1.7 m/s SHANE (V) 2.43 cm? VTI 0.31 m SHANE (I) 2.49 cm? LVOT V max 1.1 m/s Max PG 11 mmHg LVOT VTI 0.20 m Mean PG 5 mmHg SV 77 ml Dim Index 0.65 SV index 38 ml/m? CO 5.5 l/min CI 2.7 l/min/m? Mitral Valve: MVA 2.5 cm? MV P 1/2 88 msec Tricuspid Valve and estimated PA pressures: TAPSE 1.8 cm Contrast documentation: 4ml ml diluted Definity, lot #[id number], [facility]#[id number] was administered peripherally to enhance visualization of allleft ventricular segments. . This study was interpreted by an [facility] accredited facility. CC: GABRIEL (med records) [facility], Med/Surg - IP [facility]. Final Authorizing ProviderResult TypeResult StatusPaulo Pa LOZANO ORDFinal Result from Last 3 Months Insurance * Guarantor: Griselda Lai TypeRelation to PatientDate of BirthPhone Billing AddressPersonal/PjvnzxSsbi1945 ([place]) [address] [place] [address] Care Teams Team MemberRelationshipSpecialtyStart DateEnd Date Physicians, [facility] [address], [address] [place] [phone] PCP - GeneralNurse Practitioner - [facility]10/14/24
[2025-03-09 13:23] VITALS: BP 123/69; PULSE 68; RESP 20; TEMP 36.5; O2SAT 95
--- NOTE | 2025-03-09 13:54 | ED.GENADULT ---
HPI - General Adult General Chief complaint: Head Injury/Pain Stated complaint: fall - hit head Time Seen by Provider: 03/09/25 13:54 Source: old records reviewed History of Present Illness HPI narrative: Arrives with facial injuries after a fall [employer]. Reports she got scared by a mouse and tripped and fell trying to get away from it. she denies LOC, is alert and oriented, bruising to bilateral eyes and nose, ABCs intact at this time. 80-year-old woman presenting to the emergency department following a fall and having sustained injuries to her face. Apparently startled by a mouse tripped while trying to get away. Sustained injuries to her face. No loss of consciousness. Denies neck or back pain. Does not appear to have injured her extremities. Related Data Home Medications ?Medication ?Instructions ?Recorded ?Confirmed betaxolol 0.5 % eye drops 1 drp ophthalmic (eye-right) BID 02/01/24 03/09/25 carvedilol 12.5 mg tablet 12.5 mg PO BID 02/01/24 03/09/25 furosemide 20 mg tablet 20 mg PO DAILY 02/01/24 03/09/25 imatinib 400 mg tablet (Gleevec) 400 mg PO DAILY 02/01/24 03/09/25 irbesartan 75 mg tablet 75 mg PO DAILY 02/01/24 03/09/25 potassium chloride 10 mEq 10 meq PO DAILY 02/01/24 03/09/25 tablet,extended release(part/cryst) (Klor-Con M) sertraline 50 mg tablet 100 mg PO DAILY 02/01/24 03/09/25 aspirin 81 mg tablet 81 mg PO DAILY 01/08/25 03/09/25 brimonidine 0.2 % eye drops 1 drp ophthalmic (eye-right) BID 01/08/25 03/09/25 cholecalciferol (vitamin D3) 25 25 mcg PO DAILY 01/08/25 03/09/25 mcg (1,000 unit) capsule mometasone 220 mcg/actuation(30 1 inh inhalation HS 01/08/25 03/09/25 doses) breath activated powder inhaler (Asmanex Twisthaler) rosuvastatin 5 mg tablet 5 mg PO DAILY 01/08/25 03/09/25 spironolactone 25 mg tablet 25 mg PO QAM 01/08/25 03/09/25 tafluprost (PF) 0.0015 % eye drops 1 drp ophthalmic (eye-right) QPM 01/08/25 03/09/25 in a dropperette tocilizumab 400 mg/20 mL (20 600 mg IV Q28D 01/08/25 03/09/25 mg/mL) intravenous solution (Actemra) Allergies Allergy/AdvReac Type Severity Reaction Status Date / Time cortisone AdvReac Unknown Verified 03/09/25 13:21 Sulfa Antibiotics Allergy Unknown Uncoded 09/21/21 09:29 Review of Systems Status of ROS: Reports: 6 or more systems reviewed and unremarkable except as noted in History and below [facility] Medical History Cochlear implant status ?Z96.21 - Cochlear implant status (ICD-10) H/O coronary angiogram ?Z98.890 - Other specified postprocedural states (ICD-10) Fatty liver ?K76.0 - Fatty (change of) liver, not elsewhere classified (ICD-10) Obesity ?E66.9 - Obesity, unspecified (ICD-10) Chronic restrictive lung disease ?J98.4 - Other disorders of lung (ICD-10) History of transient cerebral ischemia ?Z86.73 - Personal history of transient ischemic attack (TIA), and cerebral infarction without residual deficits (ICD-10) History of subdural hemorrhage ?Z86.79 - Personal history of other diseases of the circulatory system (ICD-10) Central sleep apnea ?G47.31 - Primary central sleep apnea (ICD-10) Obstructive sleep apnea ?G47.33 - Obstructive sleep apnea (adult) (pediatric) (ICD-10) History of sarcoidosis ?Z86.2 - Personal history of diseases of the blood and blood-forming organs and certain disorders involving the immune mechanism (ICD-10) Polymyalgia rheumatica ?M35.3 - Polymyalgia rheumatica (ICD-10) Congestive heart failure, unspecified ?I50.9 - Heart failure, unspecified (ICD-10) Cardiomyopathy, idiopathic ?I42.9 - Cardiomyopathy, unspecified (ICD-10) Muscular dystrophy ?G71.00 - Muscular dystrophy, unspecified (ICD-10) Bladder cancer ?C67.9 - Malignant neoplasm of bladder, unspecified (ICD-10) CML (chronic myelocytic leukemia) ?C92.10 - Chronic myeloid leukemia, BCR/ABL-positive, not having achieved remission (ICD-10) Hypertension ?I10 - Essential (primary) hypertension (ICD-10) Surgical History Hx laparoscopic cholecystectomy ?Z90.49 - Acquired absence of other specified parts of digestive tract (ICD-10) History of ERCP ?Z98.890 - Other specified postprocedural states (ICD-10) H/O cystoscopy ?Z98.890 - Other specified postprocedural states (ICD-10) Social History What is your current living situation?: I presently have a place to live Problems where you live: no known problems Problems where you live details: n/a In the past 12 months, utilities in danger of being shut off: no In past 12 months, lack of transportation kept you from medical appts, meetings, work, or getting things needed for daily living: no In the past 12 mos, have been you worried that your food would run out before you had money to buy more?: never true In the past 12 mos, the food you bought just didn't last and you didn't have money to buy more?: never true Highest level of school completed/degree received: high school graduate Smoking Status: Never smoker Do you use any of these nicotine containing products: None Second hand tobacco smoke exposure: No How often do you have a drink containing alcohol: never How often do you have six or more drinks on one occasion: Never AUDIT-C Alcohol total score: 0 Non-prescribed substance use: denies use Caffeine: No How often does anyone, including family, friends and others, physically hurt you: never How often does anyone, including family, friends and others, insult or talk down to you: never How often does anyone, including family, friends and others, threaten you with harm: never How often does anyone, including family, friends and others, scream or curse at you: never service: No Exam Narrative: Exam Narrative: soft purpling and swelling bilaterally under each eye. Moderately swollen with a tiny cut at the bridge of the nose. light abrasion without breaking the skin on the inner lower lip. Dentition looks intact. No other injuries apparent. Not actively bleeding. No septal hematoma appreciated on intranasal exam. Left TM is unremarkable right TM looks deformed consistent with prior surgical intervention. Neck is supple nontender. Back nontender as well. No injuries to extremities. Pupils are 3 mm and equal. GCS 15. Heart in regular rate and rhythm. Const: Vital Signs, click to edit/add: Vital Signs - 24 hr 03/09/25 13:23 Temperature 97.7 F Pulse Rate [Pulse Oximeter] 68 Respiratory Rate 20 Blood Pressure [Ri ght Upper Arm] 123/69 Pulse Oximetry 95 Oxygen Delivery Me thod Room Air Documenting provider has reviewed patient's vital signs: yes Course Vital Signs Vital signs: Initial Vital Signs Temperature 97.7 F 03/09/25 13:23 Temperature Source Temporal Artery Scan 03/09/25 13:23 Pulse Rate 68 03/09/25 13:23 Respiratory Rate 20 03/09/25 13:23 Blood Pressure 123/69 03/09/25 13:23 Blood Pressure Mean 87 03/09/25 13:23 Pulse Oximetry 95 03/09/25 13:23 Oxygen Delivery Method Room Air 03/09/25 13:23 Vital Signs Temperature 97.7 F 03/09/25 13:23 Pulse Rate 68 03/09/25 13:23 Respiratory Rate 20 03/09/25 13:23 Blood Pressure 123/69 03/09/25 13:23 Pulse Oximetry 95 03/09/25 13:23 Oxygen Delivery Method Room Air 03/09/25 13:23 Temperature 97.7 F 03/09/25 13:23 Pulse Rate 68 03/09/25 13:23 Respiratory Rate 20 03/09/25 13:23 Blood Pressure 123/69 03/09/25 13:23 Pulse Oximetry 95 03/09/25 13:23 Oxygen Delivery Method Room Air 03/09/25 13:23 Medical Decision Making MDM Narrative Medical decision making narrative: She is quite clear and without substances on board to alter sensation. Denies neck or back pain. Concern of fractures particularly in her face. Less likely probably to have sustained head bleed but possible. Would definitely scan head and face given presentation of injuries here. Later maybe a mild soreness on the right hand, palm. Does not appear to need imaging. CT head independently reviewed by me is without acute abnormality. I cannot appreciate a fracture in the face either on my review. Otherwise chronic changes Radiology over-read below INDICATION: Head and facial trauma COMPARISON: 01/07/2025 CT head TECHNIQUE: CT of the head and maxillofacial region without contrast. FINDINGS: Implanted electronic device again noted in the right posterolateral scalp causing extensive streak artifact which limits evaluation. Streak artifact from dental hardware also limits evaluation of adjacent structures. Brain, ventricles, and extra-axial spaces: No acute intracranial hemorrhage. Oliveira-white differentiation is grossly preserved. Mild brain parenchymal volume loss with commensurate size of the ventricles and sulci. There are intracranial vascular calcifications. Bones: No acute osseous findings. Bilateral calvarial hyperostosis. Small polyp versus mucous retention cyst within the right frontal sinus. Status post right-sided mastoidectomy. Trace left mastoid effusion and trace effusion in the residual right mastoid air cells. Elongated bilateral styloid process. Rightward deviation of the nasal septum. Additional findings: Tiny amount of presumably posttraumatic soft tissue gas at the anterior/midline nose. Status post right lens replacement. Otherwise unremarkable noncontrast appearance of the orbits. IMPRESSION: Technically challenging examination due to extensive streak artifact. Within this limitation: 1. No acute intracranial hemorrhage. 2. Tiny amount of presumably posttraumatic soft tissue gas at the anterior/midline nose. Please note that all CT scans at this facility use dose modulation, iterative reconstruction, and/or weight-based dosing when appropriate to reduce radiation dose to as low as reasonably achievable. Dictated by Carlito Ibarra MD @ 03/09/2025 2:57:40 PM INDICATION [Head and facial trauma] COMPARISON [01/07/2025 CT head] TECHNIQUE CT of the head and maxillofacial region without contrast. FINDINGS Implanted electronic device again noted in the right posterolateral scalp causing extensive streak artifact which limits evaluation. Streak artifact from dental hardware also limits evaluation of adjacent structures. Brain, ventricles, and extra-axial spaces: [No acute intracranial hemorrhage.] [Oliveira-white differentiation is grossly preserved.] [Mild brain parenchymal volume loss with commensurate size of the ventricles and sulci. There are intracranial vascular calcifications.] Bones: [No acute osseous findings.] Bilateral calvarial hyperostosis. [Small polyp versus mucous retention cyst within the right frontal sinus.] [Status post right-sided mastoidectomy. Trace left mastoid effusion and trace effusion in the residual right mastoid air cells.] Elongated bilateral styloid process. Rightward deviation of the nasal septum. Additional findings: Tiny amount of presumably posttraumatic soft tissue gas at the anterior/midline nose. [Status post right lens replacement. Otherwise unremarkable noncontrast appearance of the orbits.] IMPRESSION Technically challenging examination due to extensive streak artifact. Within this limitation: 1. [No acute intracranial hemorrhage.] 2. Tiny amount of presumably posttraumatic soft tissue gas at the anterior/midline nose. Please note that all CT scans at this facility use dose modulation, iterative reconstruction, and/or weight-based dosing when appropriate to reduce radiation dose to as low as reasonably achievable. Dictated by: Carlito Ibarra MD @ 03/09/2025 14:57:57 Cleaned areas of bleeding. See patient discharge plan for further discussion consider icing these injured areas a few times daily over the next few days. Might apply a little antibiotic ointment over the scrapes on your nose when you get home. probably want to do regular stretching over the next few days as well. Might want a massage in a couple of days. acetaminophen, maybe ibuprofen. Signs or symptoms of a concussion might be nausea or headache upon exertion which can also be an indication to back off that level of activity and reassess in a week.? Concussion can also be represented by smoldering nausea or smoldering headache, difficulty with concentration, mood lability, general somnolence, sense of persistent fog or dizziness/lightheadedness.? If these symptoms are becoming apparent and continuing beyond 7-10 days, be re-evaluated for further recommendations Be seen for severe headache, double vision Medical Records Medical records reviewed: Yes I reviewed the patient's medical records Discharge Plan Discharge Clinical Impression: Closed head injury, Contusion, Abrasion, Laceration of nose Patient Disposition: Home w/ Parent or Adult Condition: Improved Additional Instructions: consider icing these injured areas a few times daily over the next few days. Might apply a little antibiotic ointment over the scrapes on your nose when you get home. probably want to do regular stretching over the next few days as well. Might want a massage in a couple of days. acetaminophen, maybe ibuprofen. Signs or symptoms of a concussion might be nausea or headache upon exertion which can also be an indication to back off that level of activity and reassess in a week.? Concussion can also be represented by smoldering nausea or smoldering headache, difficulty with concentration, mood lability, general somnolence, sense of persistent fog or dizziness/lightheadedness.? If these symptoms are becoming apparent and continuing beyond 7-10 days, be re-evaluated for further recommendations Be seen for severe headache, double vision Prescriptions: No Action carvedilol 12.5 mg tablet 12.5 mg PO BID furosemide 20 mg tablet 20 mg PO DAILY betaxolol 0.5 % drops 1 drp ophthalmic (eye-right) BID irbesartan 75 mg tablet 75 mg PO DAILY sertraline 50 mg tablet 100 mg PO DAILY imatinib [Gleevec] 400 mg tablet 400 mg PO DAILY potassium chloride [Klor-Con M10] 10 mEq tablet,ER particles/crystals 10 meq PO DAILY spironolactone 25 mg tablet 25 mg PO QAM rosuvastatin 5 mg tablet 5 mg PO DAILY tafluprost (PF) 0.0015 % dropperette 1 drp ophthalmic (eye-right) QPM Actemra 400 mg/20 mL (20 mg/mL) solution 600 mg IV Q28D Asmanex Twisthaler 220 mcg/ actuation (30) aerosol powdr breath activated 1 inh INHALATION HS aspirin 81 mg tablet 81 mg PO DAILY cholecalciferol (vitamin D3) 25 mcg (1,000 unit) capsule 25 mcg PO DAILY brimonidine 0.2 % drops 1 drp ophthalmic (eye-right) BID Follow Up/Referrals: Gavi Cloud MD [Primary Care Provider, Family Practice] Stand Alone Forms: [employer] Info Instructions
--- NOTE | 2025-03-09 14:06 | CRLHL7_ITS ---
For Patients: As a result of the Century Cures Act, medical imaging exams and procedure reports are released immediately into your electronic medical record. You may view this report before your referring provider. If you have questions, please contact your health care provider. INDICATION [Head and facial trauma] COMPARISON [01/07/2025 CT head] TECHNIQUE CT of the head and maxillofacial region without contrast. FINDINGS Implanted electronic device again noted in the right posterolateral scalp causing extensive streak artifact which limits evaluation. Streak artifact from dental hardware also limits evaluation of adjacent structures. Brain, ventricles, and extra-axial spaces: [No acute intracranial hemorrhage.] [Oliveira-white differentiation is grossly preserved.] [Mild brain parenchymal volume loss with commensurate size of the ventricles and sulci. There are intracranial vascular calcifications.] Bones: [No acute osseous findings.] Bilateral calvarial hyperostosis. [Small polyp versus mucous retention cyst within the right frontal sinus.] [Status post right-sided mastoidectomy. Trace left mastoid effusion and trace effusion in the residual right mastoid air cells.] Elongated bilateral styloid process. Rightward deviation of the nasal septum. Additional findings: Tiny amount of presumably posttraumatic soft tissue gas at the anterior/midline nose. [Status post right lens replacement. Otherwise unremarkable noncontrast appearance of the orbits.] IMPRESSION Technically challenging examination due to extensive streak artifact. Within this limitation: 1. [No acute intracranial hemorrhage.] 2. Tiny amount of presumably posttraumatic soft tissue gas at the anterior/midline nose. Please note that all CT scans at this facility use dose modulation, iterative reconstruction, and/or weight-based dosing when appropriate to reduce radiation dose to as low as reasonably achievable. Dictated by: Carlito Ibarra MD @ 03/09/2025 14:57:57 (Electronically Signed)
--- NOTE | 2025-03-09 14:06 | CRLHL7_ITS ---
For Patients: As a result of the Century Cures Act, medical imaging exams and procedure reports are released immediately into your electronic medical record. You may view this report before your referring provider. If you have questions, please contact your health care provider. INDICATION: Head and facial trauma COMPARISON: 01/07/2025 CT head TECHNIQUE: CT of the head and maxillofacial region without contrast. FINDINGS: Implanted electronic device again noted in the right posterolateral scalp causing extensive streak artifact which limits evaluation. Streak artifact from dental hardware also limits evaluation of adjacent structures. Brain, ventricles, and extra-axial spaces: No acute intracranial hemorrhage. Oliveira-white differentiation is grossly preserved. Mild brain parenchymal volume loss with commensurate size of the ventricles and sulci. There are intracranial vascular calcifications. Bones: No acute osseous findings. Bilateral calvarial hyperostosis. Small polyp versus mucous retention cyst within the right frontal sinus. Status post right-sided mastoidectomy. Trace left mastoid effusion and trace effusion in the residual right mastoid air cells. Elongated bilateral styloid process. Rightward deviation of the nasal septum. Additional findings: Tiny amount of presumably posttraumatic soft tissue gas at the anterior/midline nose. Status post right lens replacement. Otherwise unremarkable noncontrast appearance of the orbits. IMPRESSION: Technically challenging examination due to extensive streak artifact. Within this limitation: 1. No acute intracranial hemorrhage. 2. Tiny amount of presumably posttraumatic soft tissue gas at the anterior/midline nose. Please note that all CT scans at this facility use dose modulation, iterative reconstruction, and/or weight-based dosing when appropriate to reduce radiation dose to as low as reasonably achievable. Dictated by Carlito Ibarra MD @ 03/09/2025 2:57:40 PM (Electronically Signed)
== END 2025-03-09 15:50 | disposition home or self-care (01) ==
PROVIDERS: Emergency Provider Family Medicine; PCP Family Medicine
DX: S01.21XA Laceration without foreign body of nose, initial encounter (principal); W01.10XA Fall on same level from slipping, tripping and stumbling with subsequent striking against unspecified object, initial encounter
CPT/HCPCS: 70450; 70486; 99284